=== PATIENT | male | born 1980 | race Caucasian/White ===

== ENCOUNTER 2016-09-25 16:29 | Emergency (ER) | payer MEDICARE, MEDICAID ==
[~2016-09-25] VITALS: Ht 177.8 cm; Wt 140.6 kg
[~2016-09-25 16:29] MED LIST: ALBU17AE3 IH; ALPR.25T PO; ALPR0.25 PO; ALPR0.254 PO; AMOX500C2; AMOX500C2 PO; AMOX500T2 PO; ASP81TEC; AZIT250T5 PO; BENZ-13 PO; BSP5T PO; CEFP200T2 PO; CEPH500C PO; CINN500C2 PO; CODE118S2 PO; CYCL10TA9 PO; DEXT10TA24 PO; DICY20TA57 PO; DOXY100C2 PO; FLUC200T PO; FLUO20CA25 PO; FLUT16SP22; FLX20C; GABA-488 PO; GABA300C PO; GLYB5TAB6 PO; HYDR-1231 PO; HYDR-3714; HYDR-3714 PO; HYDR-3720 PO; HYDR-3730 PO; HYDR-3812 PO; HYDR25CA PO; HYDR50TA76 PO; HYDROXYCUT; HYOS0.1216 PO; IBUP-1773 PO; IBUP-1780 PO; IBUP800T26 PO; INHA1INH INH; INSU100I14 SQ; INSU100I29 SQ; LEVE1U SQ; LISI-552 PO; LISI10TA2 PO; LORA0.5T PO; LSNP20T PO; METF-380 PO; METF500T8 PO; MONT10TA24 PO; MTF500T; MTF500T PO; MULT-517 PO; MULT1TAB63; NOVOLOG FLEX PEN SC; NYST15CR TOP; NYST30PO9 TOP; OMEG-109 PO; OMEP20CA6 PO; ONDA-42 SL; ONDA8TAB13 PO; OXYC-12 PO; PGLT30T PO; PIOG30TA PO; PIOG30TA25 GT; PIOG45TA16 PO; PNT40TEC PO; PREG75CA PO; PROZAC; QUET100T32 PO; RT-ALBUINH IH; SITA100T; STRATERRA; TESTOSTERONE CYPIONA; TRAM50TA2 PO; TRAZ150T42 PO
[2016-09-25 16:43] LABS: BILIRUBIN,URINE NEGATIVE (NEGATIVE); KETONES,URINE 1+ (NEGATIVE); LEUKOCYTE ESTERASE ,URINE NEGATIVE (NEGATIVE); NITRITE,URINE NEGATIVE (NEGATIVE); PH,URINE 5 (5-9); PROTEIN,URINE NEGATIVE (NEGATIVE); UROBILINOGEN,URINE NORMAL (NORMAL)
--- NOTE | 2016-09-25 17:00 | ED Abdominal Pain ---
General Chief Complaint: Abdominal/GI Problems Stated Complaint: ABD PAIN/LOW BACK PAIN/NAUSEA Source of Information: Patient, Other (significant other) Exam Limitations: No Limitations History of Present Illness Time Seen By Provider: 16:46 Initial Comments This 28-year-old male presents with a three-month history of diffuse burning abdominal pain from his throat to his pubis. The patient has had associated nausea without vomiting. Patient denies fever or chills. He has had no headache, stiff neck, productive cough or shortness of breath, or lateralizing or localizing neurologic complaints. Patient has a history of diabetes and hypertension. Allergies and Home Medications Allergies Coded Allergies: sertraline (Verified Allergy, Severe, RASH, SWELLING, 01/20/16) "FELT LOOPY" bupropion (Verified Allergy, Unknown, "CAUSED ME TO BANG MY HEAD ON THE WALL", 01/20/16) buspirone (Verified Allergy, Unknown, THROAT SWELLED, 01/20/16) cephalexin (Verified Allergy, Unknown, HIVES, 01/20/16) codeine (Verified Allergy, Unknown, 01/20/16) Home Medications Albuterol Sulfate 18 Gm Hfa.aer.ad #1 2 PUFF IH Q4H PRN PRN SHORTNESS OF BREATH Prescribed by: DIANA RUIZ on 08/15/16 0644 Alprazolam 0.25 Mg Tablet 0.25 MG PO BID PRN PRN ANXIETY (Reported) Benzonatate 100 Mg Capsule #30 100 MG PO Q6H PRN PRN COUGH Prescribed by: DIANA RUIZ on 08/15/16 0644 Cinnamon Bark 500 Mg Capsule 1,000 MG PO DAILY (Reported) TAKES 2 (500MG) CAPSULES Cyclobenzaprine HCl 10 Mg Tablet 10 MG PO DAILY PRN PRN MUSCLE SPASMS (Reported ) Dextroamphetamine/Amphetamine 10 Mg Tablet #30 1 TAB PO UD (Reported) Doxycycline Hyclate 100 Mg Capsule #20 1 TAB PO BID (Reported) Gabapentin 300 Mg Capsule 300 MG PO BID PRN PRN PAIN (Reported) Hydrocodone/Acetaminophen 1 Each Tablet 1 TAB PO Q6H PRN PRN PAIN (Reported) Ibuprofen 800 Mg Tablet 800 MG PO TID PRN PRN PAIN (Reported) Insulin Aspart 300 Units/3 Ml Solution 35 UNITS SQ AC PRN PRN BLOOD SUGAR ( Reported) Insulin Detemir 100 Unit/1 Ml Insuln.pen 80 UNITS SQ BID (Reported) Metformin HCl 500 Mg Tab.er.24h 1,000 MG PO BID (Reported) TAKES 2 (500MG) TABLETS Multivitamin 1 Each Tablet 1 TAB PO DAILY (Reported) Pregabalin 75 Mg Capsule #84 1 TAB PO UD (Reported) Promethazine HCl/Codeine 118 Ml Syrup #120 6 ML PO UD (Reported) Review of Systems Constitutional: No chills EENTM: No Blurred Vision, No Ear Drainage Respiratory: Denies Cough Cardiovascular: Denies Chest Pain Gastrointestinal: Abdominal Pain Diarrhea NauseaDenies Rectal Bleeding, Denies Vomiting Genitourinary: Denies Frequency, Denies Flank Pain Musculoskeletal: No back pain Skin: No rash Psychiatric/Neurological: Denies No Symptoms Reported Endocrine: Denies No Symptoms Reported Hematologic/Lymphatic: Denies No Symptoms Reported Past Ijjfuoe-Shvgyn-Rrmalz Hx Patient Social History Alcohol Use: Denies Use Recreational Drug Use: No Drug of Choice: CANNIBUS Smoking Status: Never a Smoker Recent Foreign Travel: No Contact w/Someone Who Travel: No Recent Hopitalizations: No Physical Abuse Screen: No Sexual Abuse: No Immunizations Up To Date Tetanus Booster (TDap): More than 5yrs PED Vaccines UTD: No Seasonal Allergies Seasonal Allergies: No Surgeries HX Surgeries: Yes (HYPOGONADISM INFANT, correction of cryptorchidism) Surgeries: Gallbladder, Testicular Respiratory Hx Respiratory Disorders: No Respiratory Disorders: Asthma, Chronic Bronchitis Cardiovascular Hx Cardiac Disorders: Yes Cardiac Disorders: Hypertension, Palpitations Neurological Hx Neurological Disorders: Yes Neurological Disorders: Neuropathy Reproductive System Hx Reproductive Disorders: Yes (HYPOGONADISM) Sexually Transmitted Disease: No Genitourinary Hx Genitourinary Disorders: No Gastrointestinal Hx Gastrointestinal Disorders: Yes Gastrointestinal Disorders: Gastroesophageal Reflux Musculoskeletal Hx Musculoskeletal Disorders: No Endocrine Hx Endocrine Disorders: Yes (MORBID OBESITY) Endocrine Disorders: Diabetes, Insulin dep HEENT HX ENT Disorders: No Cancer Hx Cancer: No Psychosocial Hx Psychiatric Problems: Yes Behavioral Health Disorders: ADD/ADHD, Anxiety, Depression Integumentary HX Skin/Integumentary Disorder: No Blood Transfusions Hx Blood Disorders: No Adverse Reaction to a Blood Tr: No Reviewed Nursing Assessment Reviewed/Agree w Nursing PMH: Yes Family Medical History Significant Family History: No Pertinent Family Hx Family Medial History: Arthritis 19 MOTHER Congenital heart disease Diabetes mellitus 19 FATHER 19 MOTHER FH: brain aneurysm 19 FATHER (cause of - 09/13/2015) Glaucoma 19 FATHER Hypertension 19 FATHER 19 MOTHER Psychosocial problem 19 MOTHER (depression) Physical Exam Vital Signs VS - Last 72 Hours, by Label 09/25/16 16:31 Temp 97.7 Pulse 86 Resp 20 B/P 145/95 Pulse Ox 99 O2 Delivery Room Air Capillary Refill : Less Than 3 Seconds General Appearance: WD/WN moderate distress HEENT: normal ENT inspection Respiratory: lungs clear normal breath sounds no respiratory distress Cardiovascular: regular rate, rhythm Gastrointestinal: normal bowel sounds tenderness (there was diffuse tenderness to palpation of the abdomen. No masses or rebound noted.) Extremities: normal range of motion non-tender normal inspection Back: normal inspection Neurologic/Psychiatric: no motor/sensory deficits alert normal mood/affect Skin: normal color warm/dry Progress/Results/Core Measures Results/Orders Lab Results Laboratory Tests Test 09/25/16 16:33 09/25/16 16:53 Range/Units Urine Bacteria NONE /HPF Urine Bilirubin NEGATIVE NEGATIVE Urine Casts NONE /LPF Urine Clarity CLEAR Urine Color YELLOW Urine Crystals NONE /LPF Urine Culture Indicated NO Urine Glucose (UA) 4+ H NEGATIVE Urine Ketones 1+ H NEGATIVE Urine Leukocyte Esterase NEGATIVE NEGATIVE Urine Mucus NEGATIVE /LPF Urine Nitrite NEGATIVE NEGATIVE Urine Protein NEGATIVE NEGATIVE Urine RBC NONE /HPF Urine RBC (Auto) NEGATIVE NEGATIVE Urine Specific [place] 1.015 L 1.016-1.022 Urine Squamous Epithelial Cells 2-5 /HPF Urine Urobilinogen NORMAL NORMAL MG/DL Urine WBC NONE /HPF Urine pH 5 5-9 Alanine Aminotransferase (ALT/SGPT) 47 0-55 U/L Albumin 4.1 3.2-4.5 G/DL Alkaline Phosphatase 76 40-136 U/L Anion Gap 13 5-14 MMOL/L Aspartate Amino Transf (AST/SGOT) 27 5-34 U/L BUN/Creatinine Ratio 14 Basophils # (Auto) 0.0 0.0-0.1 10^3/uL Basophils (%) (Auto) 0 0-10 % Blood Urea Nitrogen 14 7-18 MG/DL Calcium Level 9.4 8.5-10.1 MG/DL Carbon Dioxide Level 16 L 21-32 MMOL/L Chloride Level 103 98-107 MMOL/L Creatinine 1.02 0.60-1.30 MG/DL Eosinophils # (Auto) 0.1 0.0-0.3 10^3/uL Eosinophils (%) (Auto) 1 0-10 % Estimat Glomerular Filtration Rate > 60 Glucose Level 456 *H 70-105 MG/DL Hematocrit 42 40-54 % Hemoglobin 15.2 13.3-17.7 G/DL Lipase 31 8-78 U/L Lymphocytes # (Auto) 1.9 1.0-4.0 X 10^3 Lymphocytes (%) (Auto) 26 12-44 % Mean Corpuscular Hemoglobin 29 25-34 PG Mean Corpuscular Hemoglobin Concent 36 32-36 G/DL Mean Corpuscular Volume 81 80-99 FL Mean Platelet Volume 11.5 H 7.4-10.4 FL Monocytes # (Auto) 0.5 0.0-1.0 X 10^3 Monocytes (%) (Auto) 7 0-12 % Neutrophils # (Auto) 4.7 1.8-7.8 X 10^3 Neutrophils (%) (Auto) 65 42-75 % Platelet Count 163 130-400 10^3/uL Potassium Level 4.1 3.6-5.0 MMOL/L Red Blood Count 5.18 4.35-5.85 10^6/uL Red Cell Distribution Width 13.1 10.0-14.5 % Sodium Level 132 L 135-145 MMOL/L Total Bilirubin 0.4 0.1-1.0 MG/DL Total Protein 6.8 6.4-8.2 G/DL White Blood Count 7.2 4.3-11.0 10^3/uL My Orders Orders-DAVINA MADDOX MD Ua Culture If Indicated (09/25/16 16:37) Comprehensive Metabolic Panel (09/25/16 16:37) Cbc With Automated Diff (09/25/16 16:37) Lipase (09/25/16 16:45) Antacid Suspension (Mylanta Suspension (09/25/16 17:30) Lidocaine 2% Viscous 15 Ml (Xylocaine Vi (09/25/16 17:30) Lidocaine 2% Viscous 15 Ml (Xylocaine Vi (09/25/16 17:14) Antacid Suspension (Mylanta Suspension (09/25/16 17:14) Insulin (Regular) Human (Humulin R (Per (09/25/16 18:15) Ns Iv 1000 Ml (Sodium Chloride 0.9%) (09/25/16 18:15) Insulin (Regular) Human (Humulin R (Per (09/25/16 18:30) Medications Given in ED Current Medications Medications Dose Ordered Sig/Nikia Route Start Time Stop Time Status Last Admin Dose Admin Al Hydrox/Mg Hydrox/Simethicone 30 ml ONCE ONCE PO 09/25/16 17:30 09/25/16 17:31 DC 09/25/16 17:23 30 ML Lidocaine HCl 5 ml ONCE ONCE PO 09/25/16 17:30 09/25/16 17:31 DC 09/25/16 17:23 5 ML Vital Signs/I&O Vital Sign - Last 12Hours 09/25/16 16:31 Temp 97.7 Pulse 86 Resp 20 B/P 145/95 Pulse Ox 99 O2 Delivery Room Air Progress Note : Time: 18:19 Progress Note The patient's abdominal pain resolved with a GI cocktail. The patient relates he has a history of severe reflux disease. He is taking ranitidine. Patient's glucose was 450. Although the patient's vital signs are stable and he appears asymptomatic patient was given a liter of normal saline and 10 units of regular insulin IV. The patient has not been taking his 40 u of insulin with meals as prescribed. He is taking his 80u morning and night as prescribed. He has not checked his sugar for some time. My plan is to give the patient liter normal saline with 10 units of regular insulin and recheck his sugar. Patient's glucoses returning to a more normal state patient will be discharged with instructions to continue with his insulin as prescribed. I'll ask that he follow up closely with his caregiver twice on Wednesday. I'm going to place the patient Carafate to be used with his ranitidine as I think this may offer him more significant relief of his abdominal pain. Departure Impression Impression: Primary Impression: GERD (gastroesophageal reflux disease) Additional Impression: Hyperglycemia Disposition: 01 HOME, SELF-CARE Condition: Improved Departure-Patient Inst. Decision time for Depature: 18:22 Referrals: [facility] [place] [facility] – [place] (PCP/Family) Primary Care Physician Patient Instructions: Acid Reflux (GERD), Adolescent (DC), Hyperglycemia, Adult (DC) Add. Discharge Instructions: Take her insulin as prescribed. Continue with her ranitidine and add Carafate. Follow up with [facility] on Wednesday. Return if any problems. All discharge instructions reviewed with patient and/or family. Voiced understanding. DAVINA MADDOX MD Sep 25, 2016 17:00
[2016-09-25 17:03] LABS: BASOPHILS % (AUTO) 0 % (0-10); EOSINOPHILS # (AUTO) 0.1 10^3/uL (0.0-0.3); EOSINOPHILS % (AUTO) 1 % (0-10); LYMPHOCYTES # (AUTO) 1.9 X 10^3 (1.0-4.0); LYMPHOCYTES % (AUTO) 26 % (12-44); MEAN CORPUSCULAR HEMOGLOBIN 29 PG (25-34); MEAN CORPUSCULAR HGB CONC 36 G/DL (32-36); MEAN CORPUSCULAR VOLUME 81 FL (80-99); MEAN PLATELET VOLUME 11.5 FL (7.4-10.4); MONOCYTES # (AUTO) 0.5 X 10^3 (0.0-1.0); MONOCYTES % (AUTO) 7 % (0-12); NEUTROPHILS # (AUTO) 4.7 X 10^3 (1.8-7.8); NEUTROPHILS % (AUTO) 65 % (42-75); PLATELET COUNT 163 10^3/uL (130-400); RED BLOOD COUNT 5.18 10^6/uL (4.35-5.85); RED CELL DISTRIBUTION WIDTH 13.1 % (10.0-14.5); WHITE BLOOD COUNT 7.2 10^3/uL (4.3-11.0)
[2016-09-25] MEDS ORDERED: LIDOCAINE 2% VISCOUS 15 ML UDC ONE (17:14)
[2016-09-25] MEDS ORDERED: ANTACID SUSP 30 ML UDC (MYLANTA) ONE (17:14)
[2016-09-25 17:22] LABS: ALANINE AMINOTRANSFERASE 47 U/L (0-55); ALBUMIN 4.1 G/DL (3.2-4.5); ANION GAP 13 MMOL/L (5-14); ASPARTATE AMINO TRANSFERASE 27 U/L (5-34); BILIRUBIN,TOTAL 0.4 MG/DL (0.1-1.0); BLOOD UREA NITROGEN 14 MG/DL (7-18); BUN/CREATININE RATIO 14; CALCIUM 9.4 MG/DL (8.5-10.1); CARBON DIOXIDE 16 MMOL/L (21-32); CHLORIDE 103 MMOL/L (98-107); CREATININE SERUM 1.02 MG/DL (0.60-1.30); GFR ESTIMATED > 60; LIPASE 31 U/L (8-78); POTASSIUM 4.1 MMOL/L (3.6-5.0); SODIUM 132 MMOL/L (135-145); TOTAL PROTEIN 6.8 G/DL (6.4-8.2)
[2016-09-25] MEDS ORDERED: LIDOCAINE 2% VISCOUS 15 ML UDC PO ONE (17:30)
[2016-09-25] MEDS ORDERED: ANTACID SUSP 30 ML UDC (MYLANTA) PO ONE (17:30)
[2016-09-25 17:31] LABS: GLUCOSE 456 MG/DL (70-105)
[2016-09-25] MEDS ORDERED: NS IV 1000 ML 1,000 ML IV SCH (18:15)
[2016-09-25] MEDS ORDERED: inSUlin (REGULAR) HUMAN 1 UNIT/0.01 ML (CHARGE PER UNIT) SC ONE (18:15)
[2016-09-25] MEDS ORDERED: inSUlin (REGULAR) HUMAN 1 UNIT/0.01 ML (CHARGE PER UNIT) IV ONE (18:30)
[2016-09-25 19:13] VITALS: BP 152/98
== END 2016-09-25 19:13 | disposition home or self-care (01) ==
LOC: EDUNIT# 16:29 → ER 16:30
DX: K21.9 Gastro-esophageal reflux disease without esophagitis (principal); E11.65 Type 2 diabetes mellitus with hyperglycemia; I10 Essential (primary) hypertension; E66.01 Morbid (severe) obesity due to excess calories; Z79.4 Long term (current) use of insulin; Z79.899 Other long term (current) drug therapy; Z91.14 Patient's other noncompliance with medication regimen
CPT/HCPCS: 36415; 80053; 81000; 82962; 83690; 85025; 96361; 96374

== ENCOUNTER 2017-01-24 04:15 | Emergency (ER) | payer MEDICARE, MEDICAID ==
[~2017-01-24] VITALS: Ht 175.3 cm; Wt 143.3 kg
[2017-01-24 04:46] LABS: BASOPHILS % (AUTO) 0 % (0-10); EOSINOPHILS # (AUTO) 0.2 10^3/uL (0.0-0.3); EOSINOPHILS % (AUTO) 2 % (0-10); LYMPHOCYTES # (AUTO) 3.7 X 10^3 (1.0-4.0); LYMPHOCYTES % (AUTO) 38 % (12-44); MEAN CORPUSCULAR HEMOGLOBIN 30 PG (25-34); MEAN CORPUSCULAR HGB CONC 36 G/DL (32-36); MEAN CORPUSCULAR VOLUME 83 FL (80-99); MEAN PLATELET VOLUME 11.5 FL (7.4-10.4); MONOCYTES # (AUTO) 0.8 X 10^3 (0.0-1.0); MONOCYTES % (AUTO) 9 % (0-12); NEUTROPHILS % (AUTO) 52 % (42-75); PLATELET COUNT 231 10^3/uL (130-400); RED BLOOD COUNT 5.13 10^6/uL (4.35-5.85); RED CELL DISTRIBUTION WIDTH 13.3 % (10.0-14.5); WHITE BLOOD COUNT 9.8 10^3/uL (4.3-11.0)
[2017-01-24 05:01] LABS: PROTHROMBIN TIME PATIENT 12.8 SEC (12.2-14.7)
[2017-01-24 05:11] LABS: ALANINE AMINOTRANSFERASE 57 U/L (0-55); ALBUMIN 4.2 G/DL (3.2-4.5); ANION GAP 17 MMOL/L (5-14); ASPARTATE AMINO TRANSFERASE 29 U/L (5-34); BILIRUBIN,TOTAL 0.4 MG/DL (0.1-1.0); BLOOD UREA NITROGEN 15 MG/DL (7-18); BUN/CREATININE RATIO 15; CALCIUM 10.3 MG/DL (8.5-10.1); CARBON DIOXIDE 18 MMOL/L (21-32); CHLORIDE 104 MMOL/L (98-107); CREATININE SERUM 0.97 MG/DL (0.60-1.30); GFR ESTIMATED > 60; GLUCOSE 196 MG/DL (70-105); MAGNESIUM 2.2 MG/DL (1.8-2.4); POTASSIUM 3.7 MMOL/L (3.6-5.0); SODIUM 139 MMOL/L (135-145)
[2017-01-24] MEDS ORDERED: NS IV 1000 ML 1,000 ML IV ONE (05:38)
--- NOTE | 2017-01-24 05:44 | ED Chest Pain ---
General Chief Complaint: Chest Pain Stated Complaint: LIGHT HEADED CHEST PAIN SOA Nursing Triage Note: Pt. advises chest pain began approx. 1-1 1/2 hours prior to his arrival. He states that his chest pain began at rest, however advises that the pain is reproducable upon palpation and that he has had a slight cough for several days. Nursing Sepsis Screen: No Definite Risk Source: patient, old records Exam Limitations: no limitations History of Present Illness Time seen by provider: 04:18 Initial Comments Frankie presents to the emergency room with complaints of pain across his upper chest for the last 1.5-2 hours. He reports dyspnea and dizziness. He also has a headache and nausea. He feels like he is in "fog". He has had slight cough recently. Pain is worse with deep breathing and palpation. He reports being under increased stress the past 2 weeks. He has not been good about checking his blood sugars. Review of his chart notes a negative stress test in 2014. Allergies and Home Medications Allergies Coded Allergies: sertraline (Verified Allergy, Severe, RASH, SWELLING, 01/20/16) "FELT LOOPY" bupropion (Verified Allergy, Unknown, "CAUSED ME TO BANG MY HEAD ON THE WALL", 01/20/16) buspirone (Verified Allergy, Unknown, THROAT SWELLED, 01/20/16) cephalexin (Verified Allergy, Unknown, HIVES, 01/20/16) codeine (Verified Allergy, Unknown, 01/20/16) Home Medications Albuterol Sulfate 18 Gm Hfa.aer.ad, 2 PUFF IH Q4H PRN for SHORTNESS OF BREATH, # 1 Ref 0 Prescribed by: DIANA RUIZ on 08/15/16 0644 Alprazolam 0.25 Mg Tablet, 0.25 MG PO BID PRN for ANXIETY, (Reported) Benzonatate 100 Mg Capsule, 100 MG PO Q6H PRN for COUGH, #30 Ref 0 Prescribed by: DIANA RUIZ on 08/15/16 0644 Cinnamon Bark 500 Mg Capsule, 1,000 MG PO DAILY, (Reported) TAKES 2 (500MG) CAPSULES Cyclobenzaprine HCl 10 Mg Tablet, 10 MG PO DAILY PRN for MUSCLE SPASMS, ( Reported) Dextroamphetamine/Amphetamine 10 Mg Tablet, 1 TAB PO UD, #30 (Reported) Doxycycline Hyclate 100 Mg Capsule, 1 TAB PO BID, #20 (Reported) Gabapentin 300 Mg Capsule, 300 MG PO BID PRN for PAIN, (Reported) Hydrocodone/Acetaminophen 1 Each Tablet, 1 TAB PO Q6H PRN for PAIN, (Reported) Ibuprofen 800 Mg Tablet, 800 MG PO TID PRN for PAIN, (Reported) Insulin Aspart 300 Units/3 Ml Solution, 35 UNITS SQ AC PRN for BLOOD SUGAR, ( Reported) Insulin Detemir 100 Unit/1 Ml Insuln.pen, 80 UNITS SQ BID, (Reported) Metformin HCl 500 Mg Tab.er.24h, 1,000 MG PO BID, (Reported) TAKES 2 (500MG) TABLETS Multivitamin 1 Each Tablet, 1 TAB PO DAILY, (Reported) Pregabalin 75 Mg Capsule, 1 TAB PO UD, #84 (Reported) Promethazine HCl/Codeine 118 Ml Syrup, 6 ML PO UD, #120 (Reported) Review of Systems Constitutional: no symptoms reported EENTM: No Symptoms Reported Respiratory: See HPI Cardiovascular: See HPI Gastrointestinal: See HPI Genitourinary: No Symptoms Reported Musculoskeletal: see HPI Skin: no symptoms reported Psychiatric/Neurological: See HPI Endocrine: See HPI Past Cxutvir-Cmbdsg-Firwpb Hx Patient Social History Alcohol Use: Denies Use Recreational Drug Use: Yes Drug of Choice: CANNIBUS Smoking Status: Unknown if Ever Smoked Recent Foreign Travel: No Contact w/Someone Who Travel: No Recent Infectious Disease Expo: No Recent Hopitalizations: No Immunizations Up To Date Tetanus Booster (TDap): More than 5yrs PED Vaccines UTD: No Seasonal Allergies Seasonal Allergies: No Surgeries HX Surgeries: Yes (HYPOGONADISM INFANT, correction of cryptorchidism) Surgeries: Gallbladder, Testicular Respiratory Hx Respiratory Disorders: Yes Respiratory Disorders: Asthma, Chronic Bronchitis Cardiovascular Hx Cardiac Disorders: Yes Cardiac Disorders: Hypertension, Palpitations Neurological Hx Neurological Disorders: Yes Neurological Disorders: Neuropathy Reproductive System Hx Reproductive Disorders: Yes (HYPOGONADISM) Sexually Transmitted Disease: No Genitourinary Hx Genitourinary Disorders: No Gastrointestinal Hx Gastrointestinal Disorders: Yes Gastrointestinal Disorders: Gastroesophageal Reflux Musculoskeletal Hx Musculoskeletal Disorders: No Endocrine Hx Endocrine Disorders: Yes (MORBID OBESITY) Endocrine Disorders: Diabetes, Insulin dep HEENT HX ENT Disorders: No Cancer Hx Cancer: No Psychosocial Hx Psychiatric Problems: Yes Behavioral Health Disorders: ADD/ADHD, Anxiety, Depression Integumentary HX Skin/Integumentary Disorder: No Blood Transfusions Hx Blood Disorders: No Adverse Reaction to a Blood Tr: No Family Medical History Significant Family History: No Pertinent Family Hx Family Medial History: Arthritis 19 MOTHER Congenital heart disease Diabetes mellitus 19 FATHER 19 MOTHER FH: brain aneurysm 19 FATHER (cause of - 09/13/2015) Glaucoma 19 FATHER Hypertension 19 FATHER 19 MOTHER Psychosocial problem 19 MOTHER (depression) Physical Exam Vital Signs Vital Sign - Last 12Hours Capillary Refill : Less Than 3 Seconds General Appearance: WD/WN, Mild Distress, Obese HEENT: PERRL/EOMI, Normal ENT Inspection Neck: Normal Inspection Respiratory: Lungs Clear, Normal Breath Sounds, No Accessory Muscle Use, No Respiratory Distress, Other (Tenderness to palpation in the left upper chest) Cardiovascular: Regular Rate, Rhythm, No Edema, No Murmur, Normal Peripheral Pulses Gastrointestinal: Normal Bowel Sounds, Non Tender, Soft Extremity: Normal Inspection, Non Tender, No Calf Tenderness, No Pedal Edema Neurologic/Psychiatric: Alert, Oriented x3, No Motor/Sensory Deficits, stripper color II- XII Norm as Tested, Other (Mildly anxious) Skin: Normal Color, Warm/Dry Progress/Results/Core Measures Results/Orders Lab Results Laboratory Tests Test 01/24/17 04:30 01/24/17 05:34 Range/Units White Blood Count 9.8 4.3-11.0 10^3/uL Red Blood Count 5.13 4.35-5.85 10^6/uL Hemoglobin 15.2 13.3-17.7 G/DL Hematocrit 43 40-54 % Mean Corpuscular Volume 83 80-99 FL Mean Corpuscular Hemoglobin 30 25-34 PG Mean Corpuscular Hemoglobin Concent 36 32-36 G/DL Red Cell Distribution Width 13.3 10.0-14.5 % Platelet Count 231 130-400 10^3/uL Mean Platelet Volume 11.5 H 7.4-10.4 FL Neutrophils (%) (Auto) 52 42-75 % Lymphocytes (%) (Auto) 38 12-44 % Monocytes (%) (Auto) 9 0-12 % Eosinophils (%) (Auto) 2 0-10 % Basophils (%) (Auto) 0 0-10 % Neutrophils # (Auto) 5.0 1.8-7.8 X 10^3 Lymphocytes # (Auto) 3.7 1.0-4.0 X 10^3 Monocytes # (Auto) 0.8 0.0-1.0 X 10^3 Eosinophils # (Auto) 0.2 0.0-0.3 10^3/uL Basophils # (Auto) 0.0 0.0-0.1 10^3/uL Prothrombin Time 12.8 12.2-14.7 SEC INR Comment 1.0 0.8-1.4 Activated Partial Thromboplast Time 29 24-35 SEC D-Dimer 0.27 0.00-0.49 UG/ML Sodium Level 139 135-145 MMOL/L Potassium Level 3.7 3.6-5.0 MMOL/L Chloride Level 104 98-107 MMOL/L Carbon Dioxide Level 18 L 21-32 MMOL/L Anion Gap 17 H 5-14 MMOL/L Blood Urea Nitrogen 15 7-18 MG/DL Creatinine 0.97 0.60-1.30 MG/DL Estimat Glomerular Filtration Rate > 60 BUN/Creatinine Ratio 15 Glucose Level 196 H 70-105 MG/DL Calcium Level 10.3 H 8.5-10.1 MG/DL Magnesium Level 2.2 1.8-2.4 MG/DL Total Bilirubin 0.4 0.1-1.0 MG/DL Aspartate Amino Transf (AST/SGOT) 29 5-34 U/L Alanine Aminotransferase (ALT/SGPT) 57 H 0-55 U/L Alkaline Phosphatase 58 40-136 U/L Myoglobin 69.0 10.0-92.0 NG/ML Troponin I < 0.30 <0.30 NG/ML Total Protein 7.0 6.4-8.2 G/DL Albumin 4.2 3.2-4.5 G/DL Glucometer 151 H 70-110 MG/DL My Orders Orders - MAMIE DUBOIS MD Cbc With Automated Diff (01/24/17 04:23) Magnesium (01/24/17 04:23) Ekg Tracing (01/24/17 04:23) Cardiac Profile 1 (01/24/17 04:23) Comprehensive Metabolic Panel (01/24/17 04:23) Myoglobin Serum (01/24/17 04:23) Protime With Inr (01/24/17 04:23) Partial Thromboplastin Time (01/24/17 04:23) O2 (01/24/17 04:23) Monitor-Rhythm Ecg Trace Only (01/24/17 04:23) Saline Lock/Iv-Start (01/24/17 04:23) Chest Pa/Lat (2 View) (01/24/17 04:23) Ns Iv 1000 Ml (Sodium Chloride 0.9%) (01/24/17 05:38) Fibrin Degradation Products (01/24/17 05:38) Medications Given in ED Vital Signs/I&O Vital Sign - Last 12Hours 01/24/17 01/24/17 01/24/17 01/24/17 04:25 04:25 04:25 07:01 Temp 97.6 Pulse 102 103 Resp 14 14 B/P (MAP) 136/79 Pulse Ox 94 97 98 O2 Delivery Room Air Room Air Room Air Blood Pressure Mean: 98 Progress Note #1: Time: 05:40 Progress Note Patient's pain subsided and he fell asleep. When I reassessed him he was found to be diaphoretic. A repeat fingerstick blood sugar was 151. Patient has no notable pain at this time. However, I am concerned a find his heart rate in the 110s. Pain seemed atypical upon initial evaluation with increased pain with palpation and inspiration. A d-dimer was added to rule out possible pulmonary embolus. A liter of normal saline has been ordered as well. Progress Note #2: Time: 06:14 Progress Note D-dimer was normal. ECG Initial ECG Impression Date: January 24, 2017 Initial ECG Impression Time: 04:25 Initial ECG Rate: 109 Initial ECG Rhythm: S.Tach Comment Sinus tachycardia with no ST elevation or depression. No abnormal intervals or axis deviation. Diagnostic Imaging Diagonstic Imaging: Xray Plain Films/CT/US/NM/MRI: chest Comments Chest x-ray viewed by me. Report not yet available. No acute abnormalities appreciated. Departure Impression Impression: Primary Impression: Atypical chest pain Additional Impression: Sinus tachycardia Disposition: 01 HOME, SELF-CARE Condition: Improved Departure-Patient Inst. Decision time for Depature: 06:10 Referrals: [facility] (PCP/Family) Primary Care Physician Patient Instructions: Chest Pain That Is Not Caused by the Heart (DC) Add. Discharge Instructions: You may take Tylenol and/or ibuprofen for your pain. Return to emergency room if symptoms worsen. Stay well-hydrated. Follow up with your primary care provider soon as possible. All discharge instructions reviewed with patient and/or family. Voiced understanding. MAMIE DUBOIS MD January 24, 2017 05:44
[2017-01-24 07:01] VITALS: BP 128/79
--- NOTE | 2017-01-24 07:23 | Diagnostic Imaging Report ---
INDICATION: Chest pain EXAMINATION: PA and lateral views of the chest. FINDINGS: The heart size and vascularity are normal. Lungs are clear. There is no effusion. There is no acute bony abnormality. IMPRESSION: No acute abnormality is seen. There is no change from 08/22/16. Dictated by: Dictated on workstation # [id number]
== END 2017-01-24 07:32 | disposition home or self-care (01) ==
LOC: EDUNIT# 04:15 → ER 04:18
DX: R07.89 Other chest pain (principal); R00.0 Tachycardia, unspecified; R42 Dizziness and giddiness
CPT/HCPCS: 36415; 71020; 80053; 82962; 83735; 83874; 84484; 85025; 85379; 85610; 85730; 93005; 93041; 96360

== ENCOUNTER 2017-05-07 21:15 | Emergency (ER) | payer MEDICARE, MEDICAID ==
[~2017-05-07] VITALS: Ht 177.8 cm; Wt 140.6 kg
[~2017-05-07 21:15] MED LIST changes: +AZIT250T12 PO; -AZIT250T5 PO
[2017-05-07] MEDS ORDERED: CYCLOBENZAPRINE 10 MG (FLEXERIL) TAB PO STA (21:46)
[2017-05-07] MEDS ORDERED: IBUPROFEN 800 MG (MOTRIN) TAB PO STA (21:46)
--- NOTE | 2017-05-07 21:53 | ED Lower Extremity ---
General Chief Complaint: Lower Extremity Stated Complaint: LEFT LEG PAIN Nursing Triage Note: Ambulatory to ED 2 with reports of non-traumatic left thigh pain x 2 days. Patient reports that it "started as numbness with twinges of pain, then it became pain, and now its so terrible of pain that it makes a grown man cry." No tears noted upon ambulating; however, very notable grimacing present. Nursing Sepsis Screen: No Definite Risk Source: patient Exam Limitations: no limitations History of Present Illness Time seen by provider: 21:48 Initial Comments Upon this examiner entering the room patient is lying on the bed with his headphones on and eyes closed. No grimacing or tears noted. When patient opens his eyes he immediately begins grimacing and moaning. 37-year-old male patient presents to the emergency department complaints of nontraumatic left thigh pain for 2 days. Patient reports burning/numbness/ "searing pain." Patient states he started a job a couple weeks ago and thought maybe he pulled something. States he doesn't want to quit the job because he gets paid [employer] and it doesn't affect his disability. Denies known injury. States "one time when I was younger I had that spot go numb. Location Injury Occurred: denies known injury Onset: other (2 days) Pain/Injury Location: left thigh Method of Injury: unknown Modifying Factors: Worse With Movement, Worse With Other (worse with palpation) Allergies and Home Medications Allergies Coded Allergies: sertraline (Verified Allergy, Severe, RASH, SWELLING, 01/20/16) "FELT LOOPY" bupropion (Verified Allergy, Unknown, "CAUSED ME TO BANG MY HEAD ON THE WALL", 01/20/16) buspirone (Verified Allergy, Unknown, THROAT SWELLED, 01/20/16) cephalexin (Verified Allergy, Unknown, HIVES, 01/20/16) codeine (Verified Allergy, Unknown, 01/20/16) Home Medications Acyclovir 800 Mg Tablet, 800 MG PO 5XD, #50 Ref 0 Prescribed by: ANA BECKER on 05/07/17 2333 Albuterol Sulfate 18 Gm Hfa.aer.ad, 2 PUFF IH Q4H PRN for SHORTNESS OF BREATH, # 1 Ref 0 Prescribed by: DIANA RUIZ on 08/15/16 0644 Alprazolam 0.25 Mg Tablet, 0.25 MG PO BID PRN for ANXIETY, (Reported) Benzonatate 100 Mg Capsule, 100 MG PO Q6H PRN for COUGH, #30 Ref 0 Prescribed by: DIANA RUIZ on 08/15/16 0644 Cinnamon Bark 500 Mg Capsule, 1,000 MG PO DAILY, (Reported) TAKES 2 (500MG) CAPSULES Cyclobenzaprine HCl 10 Mg Tablet, 10 MG PO DAILY PRN for MUSCLE SPASMS, ( Reported) Dextroamphetamine/Amphetamine 10 Mg Tablet, 1 TAB PO UD, #30 (Reported) Doxycycline Hyclate 100 Mg Capsule, 1 TAB PO BID, #20 (Reported) Gabapentin 300 Mg Capsule, 300 MG PO BID PRN for PAIN, (Reported) Hydrocodone/Acetaminophen 1 Each Tablet, 1 TAB PO Q6H PRN for PAIN, (Reported) Ibuprofen 800 Mg Tablet, 800 MG PO TID PRN for PAIN, (Reported) Insulin Aspart 300 Units/3 Ml Solution, 35 UNITS SQ AC PRN for BLOOD SUGAR, ( Reported) Insulin Detemir 100 Unit/1 Ml Insuln.pen, 80 UNITS SQ BID, (Reported) Metformin HCl 500 Mg Tab.er.24h, 1,000 MG PO BID, (Reported) TAKES 2 (500MG) TABLETS Multivitamin 1 Each Tablet, 1 TAB PO DAILY, (Reported) Pregabalin 75 Mg Capsule, 1 TAB PO UD, #84 (Reported) Promethazine HCl/Codeine 118 Ml Syrup, 6 ML PO UD, #120 (Reported) Constitutional: No chills, No fever, No malaise Respiratory: No cough, No dyspnea on exertion, No short of breath Cardiovascular: No chest pain, No palpitations Gastrointestinal: no symptoms reported Genitourinary: no symptoms reported Musculoskeletal: see HPI, No joint pain, No joint swelling, muscle pain (left thigh), muscle stiffness, No muscle cramps, No muscle twitching, No muscle weakness Skin: No change in color, No lesions, No lumps, No rash Psychiatric/Neurological: Denies Numbness, Denies Paresthesia, Denies Seizure, Denies Tingling, Denies Weakness All Other Systems Reviewed Negative Unless Noted: Yes (Negative excepted noted.) Past Moyobds-Rgpkgv-Eakzep Hx Patient Social History Alcohol Use: Denies Use Recreational Drug Use: No Drug of Choice: CANNIBUS Smoking Status: Never a Smoker 2nd Hand Smoke Exposure: No Recent Foreign Travel: No Contact w/Someone Who Travel: No Recent Infectious Disease Expo: No Recent Hopitalizations: No Immunizations Up To Date Tetanus Booster (TDap): More than 5yrs PED Vaccines UTD: No Seasonal Allergies Seasonal Allergies: No Surgeries HX Surgeries: Yes (HYPOGONADISM , correction of cryptorchidism) Surgeries: Gallbladder, Testicular Respiratory Hx Respiratory Disorders: Yes Respiratory Disorders: Asthma, Chronic Bronchitis Cardiovascular Hx Cardiac Disorders: Yes Cardiac Disorders: Hypertension, Palpitations Neurological Hx Neurological Disorders: Yes Neurological Disorders: Neuropathy Reproductive System Hx Reproductive Disorders: Yes (HYPOGONADISM) Sexually Transmitted Disease: No Genitourinary Hx Genitourinary Disorders: No Gastrointestinal Hx Gastrointestinal Disorders: Yes Gastrointestinal Disorders: Gastroesophageal Reflux Musculoskeletal Hx Musculoskeletal Disorders: No Endocrine Hx Endocrine Disorders: Yes (MORBID OBESITY) Endocrine Disorders: Diabetes, Insulin dep HEENT HX ENT Disorders: No Cancer Hx Cancer: No Psychosocial Hx Psychiatric Problems: Yes Behavioral Health Disorders: ADD/ADHD, Anxiety, Depression Integumentary HX Skin/Integumentary Disorder: No Blood Transfusions Hx Blood Disorders: No Adverse Reaction to a Blood Tr: No Reviewed Nursing Assessment Reviewed/Agree w Nursing PMH: Yes Family Medical History Significant Family History: No Pertinent Family Hx Family Medial History: Arthritis 19 MOTHER Congenital heart disease Diabetes mellitus 19 FATHER 19 MOTHER FH: brain aneurysm 19 FATHER (cause of - 09/13/2015) Glaucoma 19 FATHER Hypertension 19 FATHER 19 MOTHER Psychosocial problem 19 MOTHER (depression) Physical Exam Vital Signs Vital Sign - Last 12Hours 05/07/ 21:25 Temp 98.2 Pulse 101 Resp 18 B/P (MAP) 155/95 Pulse Ox 98 O2 Delivery Room Air Capillary Refill : Less Than 3 Seconds General Appearance: WD/WN, no apparent distress, other (patient is lying in bed with his eyes closed talking on the phone. when patient opens his eyes and sees this examiner, he begins grimacing and moaning.) Cardiovascular: normal peripheral pulses, regular rate, rhythm, no murmur Respiratory: lungs clear, normal breath sounds, no respiratory distress, no accessory muscle use Gastrointestinal: normal bowel sounds, non tender, soft Back: normal inspection Hips: bilateral hip non-tender, bilateral hip normal inspection, bilateral hip normal range of motion, bilateral hip no evidence of injury Legs: right leg non-tender, bilateral leg normal inspection, bilateral leg normal range of motion, bilateral leg no evidence of injury, left leg soft tissue tenderness (patient is noted to be rubbing and squeezing the left thigh without grimacing or any pain response; however, patient is extremely tender to palpation of the left thigh with light palpation by this examiner. exaggerated pain response noted.) Knees: bilateral knee non-tender, bilateral knee normal inspection, bilateral knee normal range of motion, bilateral knee no evidence of injury Ankles: bilateral ankle non-tender, bilateral ankle normal inspection, bilateral ankle normal range of motion, bilateral ankle no evidence of injury Feet: bilateral foot non-tender, bilateral foot normal range of motion, bilateral foot no evidence of injury, bilateral foot swelling (trace pedal edema bilaterally) Neurologic/Tendon: normal sensation, normal motor functions, normal tendon functions, responds to pain, no evidence tendon injury Neurologic/Psychiatric: no motor/sensory deficits, alert, normal mood/affect, oriented x 3 Skin: normal color, warm/dry, No ecchymosis (no evidence of trauma to the LLE noted. ) Progress/Results/Core Measures Results/Orders My Orders Orders - ANA BECKER Us Venous Lower Ext Lt (05/07/17 21:46) Cyclobenzaprine Tablet (Flexeril Tablet) (05/07/17 21:46) Ibuprofen Tablet (Motrin Tablet) (05/07/17 21:46) Vital Signs/I&O Vital Sign - Last 12Hours 05/07/17 05/07/17 05/07/17 21:25 21:55 23:35 Temp 98.2 98.2 98.2 Pulse 101 101 Resp 18 18 B/P (MAP) 155/95 Pulse Ox 98 98 O2 Delivery Room Air Blood Pressure Mean: 115 Diagnostic Imaging Diagonstic Imaging: Ultrasound Plain Films/CT/US/NM/MRI: leg Comments no evidence of DVT Reviewed: Other (Stat rad report reviewed by me.) Departure Communication Progress Notes upon entering the room patient is noted to have his shirt off and rolled up under his head while lying comfortably on the bed. diagnostic findings were discussed with the patient. patient sits up and moves all 4 extremities without difficulty. patient now asks if this examiner thinks his legs are swollen, because "my legs are normally very muscular and really nice. now they just look fat." patient is noted to have trace edema of the BLE. patient states it is worse with standing for several hours while at work and improves with elevating his feet. patient instructed to elevate the LE's and to wear compression socks while at work. patient to f/u with his PCP for recheck. Impression Impression: Primary Impression: Left thigh pain Additional Impression: Paresthesia Disposition: HOME, SELF-CARE Condition: Improved Departure-Patient Inst. Decision time for Depature: 23:30 Referrals: [facility] (PCP/Family) Primary Care Physician Patient Instructions: Lee (HEATHER) Add. Discharge Instructions: All discharge instructions reviewed with patient and/or family. Voiced understanding. Medications as directed. Continue usual home medications. Elevate the left leg on pillows. Follow-up with your family practitioner for recheck early this week. Return to the emergency department for worsened symptoms or any other concerns. Scripts Acyclovir (Acyclovir) 800 Mg Tablet 800 MG PO 5XD, #50 TAB 0 Refills Prov: ANA BECKER 05/07/17 ANA BECKER May 07, 2017 9:53 pm
[2017-05-07] MEDS ORDERED: ACYC800T PO (23:33)
[2017-05-07 23:35] VITALS: BP 155/95
--- NOTE | 2017-05-08 06:13 | Diagnostic Imaging Report ---
PROCEDURE: US left lower extremity venous. TECHNIQUE: Multiple real-time grayscale images were obtained over the left lower extremity in various projections. Additional duplex Doppler and color Doppler images were also obtained. INDICATION: Left leg pain. FINDINGS: The left common femoral, superficial femoral and popliteal veins demonstrate normal response to compression, augmentation, and Valsalva. There are no abnormal left lower extremity fluid collections or masses. IMPRESSION: No evidence of deep venous thrombosis in the left lower extremity. Dictated by: Dictated on workstation # [id number]
== END 2017-05-07 23:35 | disposition home or self-care (01) ==
LOC: EDUNIT# 21:15 → ER 21:17
DX: M79.652 Pain in left thigh (principal); R20.2 Paresthesia of skin; J45.909 Unspecified asthma, uncomplicated; I10 Essential (primary) hypertension; E11.40 Type 2 diabetes mellitus with diabetic neuropathy, unspecified; K21.9 Gastro-esophageal reflux disease without esophagitis; E66.01 Morbid (severe) obesity due to excess calories; F90.9 Attention-deficit hyperactivity disorder, unspecified type; F41.9 Anxiety disorder, unspecified; F32.9 Major depressive disorder, single episode, unspecified; Z82.49 Family history of ischemic heart disease and other diseases of the circulatory system; Z87.448 Personal history of other diseases of urinary system; Z79.84 Long term (current) use of oral hypoglycemic drugs; Z79.4 Long term (current) use of insulin
CPT/HCPCS: 99283

== ENCOUNTER 2017-05-16 11:55 | Inpatient (IN) | payer MEDICARE, MEDICAID ==
[~2017-05-16] VITALS: Ht 177.8 cm; Wt 147.9 kg
[~2017-05-16 11:55] MED LIST changes: +ACYC800T PO; -AZIT250T12 PO; +AZIT250T5 PO
[2017-05-16] MEDS ORDERED: IBUPROFEN 800 MG (MOTRIN) TAB PO ONE (12:39)
[2017-05-16 12:54] LABS: MEAN PLATELET VOLUME 11.8 FL (7.4-10.4); RED BLOOD COUNT 4.95 10^6/uL (4.35-5.85); RED CELL DISTRIBUTION WIDTH 12.9 % (10.0-14.5); WHITE BLOOD COUNT 11.9 10^3/uL (4.3-11.0)
[2017-05-16 12:59] LABS: PROTHROMBIN TIME PATIENT 13.1 SEC (12.2-14.7)
[2017-05-16] MEDS ORDERED: NS IV 1000 ML 4,000 ML IV PRN (13:00)
[2017-05-16] MEDS ORDERED: LEVOFLOXACIN IV 750 MG/150 ML (LEVAQUIN) BAG IV ONE (13:00)
[2017-05-16 13:05] LABS: ALANINE AMINOTRANSFERASE 34 U/L (0-55); ALBUMIN 3.9 GM/DL (3.2-4.5); ANION GAP 12 MMOL/L (5-14); ASPARTATE AMINO TRANSFERASE 22 U/L (5-34); BILIRUBIN,TOTAL 0.8 MG/DL (0.1-1.0); BLOOD UREA NITROGEN 16 MG/DL (7-18); BUN/CREATININE RATIO 20; CALCIUM 9.2 MG/DL (8.5-10.1); CARBON DIOXIDE 20 MMOL/L (21-32); CHLORIDE 103 MMOL/L (98-107); CREATININE SERUM 0.82 MG/DL (0.60-1.30); GFR ESTIMATED > 60; GLUCOSE 309 MG/DL (70-105); POTASSIUM 4.5 MMOL/L (3.6-5.0); SODIUM 135 MMOL/L (135-145); TOTAL PROTEIN 6.6 GM/DL (6.4-8.2)
--- NOTE | 2017-05-16 13:20 | Diagnostic Imaging Report ---
EXAM: CHEST 1 VIEW, AP/PA ONLY INDICATION: Fever. COMPARISON: Chest radiograph 01/24/2017. FINDINGS: Normal heart size and pulmonary vascularity. No focal pulmonary opacity, pleural effusion or pneumothorax. No acute osseous findings. No significant change. IMPRESSION: No acute cardiopulmonary findings. Dictated by: Dictated on workstation # [id number]
--- NOTE | 2017-05-16 14:07 | ED General ---
General Chief Complaint: Skin/Wound Problems Stated Complaint: L LEG PAIN/POSS INFECTION Nursing Triage Note: PT HAS WOUND L INNER UPPER THIGH, DRAINING, REDDEND AND PAINFUL. PT HAS TEMP 102.1 AT THIS X Nursing Sepsis Screen: Possible Sepsis Risk Source of Information: Patient Exam Limitations: No Limitations Allergies and Home Medications Allergies Coded Allergies: sertraline (Verified Allergy, Severe, RASH, SWELLING, 01/20/16) "FELT LOOPY" bupropion (Verified Allergy, Unknown, "CAUSED ME TO BANG MY HEAD ON THE WALL", 01/20/16) buspirone (Verified Allergy, Unknown, THROAT SWELLED, 01/20/16) cephalexin (Verified Allergy, Unknown, HIVES, 01/20/16) codeine (Verified Allergy, Unknown, 01/20/16) Home Medications Acyclovir 800 Mg Tablet, 800 MG PO 5XD, #50 Ref 0 Prescribed by: ANA BECKER on 05/07/17 2333 Albuterol Sulfate 18 Gm Hfa.aer.ad, 2 PUFF IH Q4H PRN for SHORTNESS OF BREATH, # 1 Ref 0 Prescribed by: DIANA RUIZ on 08/15/16 0644 Alprazolam 0.25 Mg Tablet, 0.25 MG PO BID PRN for ANXIETY, (Reported) Benzonatate 100 Mg Capsule, 100 MG PO Q6H PRN for COUGH, #30 Ref 0 Prescribed by: DIANA RUIZ on 08/15/16 0644 Cinnamon Bark 500 Mg Capsule, 1,000 MG PO DAILY, (Reported) TAKES 2 (500MG) CAPSULES Cyclobenzaprine HCl 10 Mg Tablet, 10 MG PO DAILY PRN for MUSCLE SPASMS, ( Reported) Dextroamphetamine/Amphetamine 10 Mg Tablet, 1 TAB PO UD, #30 (Reported) Doxycycline Hyclate 100 Mg Capsule, 1 TAB PO BID, #20 (Reported) Gabapentin 300 Mg Capsule, 300 MG PO BID PRN for PAIN, (Reported) Hydrocodone/Acetaminophen 1 Each Tablet, 1 TAB PO Q6H PRN for PAIN, (Reported) Ibuprofen 800 Mg Tablet, 800 MG PO TID PRN for PAIN, (Reported) Insulin Aspart 300 Units/3 Ml Solution, 35 UNITS SQ AC PRN for BLOOD SUGAR, ( Reported) Insulin Detemir 100 Unit/1 Ml Insuln.pen, 80 UNITS SQ BID, (Reported) Metformin HCl 500 Mg Tab.er.24h, 1,000 MG PO BID, (Reported) TAKES 2 (500MG) TABLETS Multivitamin 1 Each Tablet, 1 TAB PO DAILY, (Reported) Pregabalin 75 Mg Capsule, 1 TAB PO UD, #84 (Reported) Promethazine HCl/Codeine 118 Ml Syrup, 6 ML PO UD, #120 (Reported) Past Bxkelbm-Pkmcjr-Wimdrp Hx Patient Social History Alcohol Use: Denies Use Recreational Drug Use: Yes Drug of Choice: CANNIBUS Smoking Status: Never a Smoker 2nd Hand Smoke Exposure: No Recent Foreign Travel: No Contact w/Someone Who Travel: No Recent Infectious Disease Expo: No Recent Hopitalizations: No Physical Abuse: No Sexual Abuse: No Immunizations Up To Date Tetanus Booster (TDap): More than 5yrs PED Vaccines UTD: No Seasonal Allergies Seasonal Allergies: No Surgeries History of Surgeries: Yes (HYPOGONADISM , correction of cryptorchidism ) Surgeries: Gallbladder, Testicular Respiratory History of Respiratory Disorde: Yes Respiratory Disorders: Asthma, Chronic Bronchitis Currently Using CPAP: No Currently Using BIPAP: No Cardiovascular History of Cardiac Disorders: Yes Cardiac Disorders: Hypertension, Palpitations Neurological History of Neurological Disord: Yes Neurological Disorders: Neuropathy Reproductive System Hx Reproductive Disorders: Yes (HYPOGONADISM) Sexually Transmitted Disease: No Gastrointestinal History of Gastrointestinal Di: Yes Gastrointestinal Disorders: Gastroesophageal Reflux Musculoskeletal History of Musculoskeletal Dis: No Endocrine History of Endocrine Disorders: Yes (MORBID OBESITY) Endocrine Disorders: Diabetes, Insulin dep Cancer History of Cancer: No Psychosocial History of Psychiatric Problem: Yes Behavioral Health Disorders: ADD/ADHD, Anxiety, Depression Suicide Risk Score: 0 Integumentary History of Skin or Integumenta: No Blood Transfusions History of Blood Disorders: No Adverse Reaction to a Blood Tr: No Family Medical History Significant Family History: No Pertinent Family Hx Family Medial History: Arthritis 19 MOTHER Congenital heart disease Diabetes mellitus 19 FATHER 19 MOTHER FH: brain aneurysm 19 FATHER (cause of - 09/13/2015) Glaucoma 19 FATHER Hypertension 19 FATHER 19 MOTHER Psychosocial problem 19 MOTHER (depression) Physical Exam Vital Signs Vital Sign - Last 12Hours 05/16/17 12:25 Temp 102.1 Pulse 113 Resp 18 B/P (MAP) 121/84 Pulse Ox 99 Capillary Refill : Less Than 3 Seconds Focused Exam Evaluation Lactate Level Laboratory Tests 05/16/17 12:30: Lactic Acid Level 1.28 Lactic Acid Level Laboratory Tests Test 05/16/17 12:30 Lactic Acid Level 1.28 MMOL/L (0.50-2.00) Progress/Results/Core Measures Results/Orders Lab Results Laboratory Tests Test 05/16/17 12:30 05/16/17 14:45 Range/Units White Blood Count 11.9 H 4.3-11.0 10^3/uL Red Blood Count 4.95 4.35-5.85 10^6/uL Hemoglobin 14.6 13.3-17.7 G/DL Hematocrit 42 40-54 % Mean Corpuscular Volume 84 80-99 FL Mean Corpuscular Hemoglobin 30 25-34 PG Mean Corpuscular Hemoglobin Concent 35 32-36 G/DL Red Cell Distribution Width 12.9 10.0-14.5 % Platelet Count 180 130-400 10^3/uL Mean Platelet Volume 11.8 H 7.4-10.4 FL Prothrombin Time 13.1 12.2-14.7 SEC INR Comment 1.0 0.8-1.4 Activated Partial Thromboplast Time 30 24-35 SEC Sodium Level 135 135-145 MMOL/L Potassium Level 4.5 3.6-5.0 MMOL/L Chloride Level 103 98-107 MMOL/L Carbon Dioxide Level 20 L 21-32 MMOL/L Anion Gap 12 5-14 MMOL/L Blood Urea Nitrogen 16 7-18 MG/DL Creatinine 0.82 0.60-1.30 MG/DL Estimat Glomerular Filtration Rate > 60 BUN/Creatinine Ratio 20 Glucose Level 309 H 70-105 MG/DL Lactic Acid Level 1.28 0.50-2.00 MMOL/L Calcium Level 9.2 8.5-10.1 MG/DL Total Bilirubin 0.8 0.1-1.0 MG/DL Aspartate Amino Transf (AST/SGOT) 22 5-34 U/L Alanine Aminotransferase (ALT/SGPT) 34 0-55 U/L Alkaline Phosphatase 79 40-136 U/L Total Protein 6.6 6.4-8.2 GM/DL Albumin 3.9 3.2-4.5 GM/DL Urine Color YELLOW Urine Clarity CLEAR Urine pH 5 5-9 Urine Specific [place] 1.015 L 1.016-1.022 Urine Protein NEGATIVE NEGATIVE Urine Glucose (UA) 4+ H NEGATIVE Urine Ketones 4+ H NEGATIVE Urine Nitrite NEGATIVE NEGATIVE Urine Bilirubin NEGATIVE NEGATIVE Urine Urobilinogen NORMAL NORMAL MG/DL Urine Leukocyte Esterase NEGATIVE NEGATIVE Urine RBC (Auto) NEGATIVE NEGATIVE Urine RBC NONE /HPF Urine WBC NONE /HPF Urine Squamous Epithelial Cells 2-5 /HPF Urine Crystals NONE /LPF Urine Bacteria NEGATIVE /HPF Urine Casts NONE /LPF Urine Mucus NEGATIVE /LPF Urine Culture Indicated NO My Orders Orders - ANA BECKER PA Ua Culture If Indicated (05/16/17 12:47) Protime With Inr (05/16/17 12:47) Partial Thromboplastin Time (05/16/17 12:47) Chest 1 View, Ap/Pa Only (05/16/17 12:47) Saline Lock/Iv-Start (05/16/17 12:47) Ns Iv 1000 Ml (Sodium Chloride 0.9%) (05/16/17 13:00) Levofloxacin 750 Mg/150 Ml Iv (Levaquin (05/16/17 13:00) Vital Signs Adult Sepsis Patie Q1HR (05/16/17 12:47) Medications Given in ED Current Medications Medications Dose Ordered Sig/Nikia Route Start Time Stop Time Status Last Admin Dose Admin Ibuprofen 800 mg STK-MED ONCE PO 05/16/17 12:39 05/16/17 12:47 DC 05/16/17 12:39 800 MG Levofloxacin/ Dextrose 750 mg ONCE ONCE IV 05/16/17 13:00 05/16/17 13:01 DC 05/16/17 12:39 750 MG Sodium Chloride 4,000 ml @ 2,000 mls/hr PRN PRN IV 05/16/17 13:00 05/16/17 13:20 2,000 MLS/HR Vital Signs/I&O Vital Sign - Last 12Hours 05/16/17 05/16/17 12:25 12:39 Temp 102.1 102.1 Pulse 113 Resp 18 B/P (MAP) 121/84 Pulse Ox 99 Blood Pressure Mean: 96 Diagnostic Imaging Diagonstic Imaging: Xray Plain Films/CT/US/NM/MRI: chest Comments FINDINGS: Normal heart size and pulmonary vascularity. No focal pulmonary opacity, pleural effusion or pneumothorax. No acute osseous findings. No significant change. IMPRESSION: No acute cardiopulmonary findings. Dictated on workstation # [id number] Reviewed: Reviewed by Me (readiology report reviewed by me) Departure Impression Impression: Primary Impression: Cellulitis Disposition: 01 HOME, SELF-CARE Condition: Improved Departure-Patient Inst. Decision time for Depature: 15:10 Referrals: [facility] (PCP/Family) Primary Care Physician Patient Instructions: Cellulitis (Skin Infection), Adult (DC) Add. Discharge Instructions: All discharge instructions reviewed with patient and/or family. Voiced understanding. Medications as instructed. Continue usual home medications. Elevate the left lower extremity on pillows above the level of the heart. Ice packs or heating pads as needed for pain. Shower with antibacterial soap. Follow-up with your primary care physician at [facility] in the next 1-2 days for recheck and possible need for incision and drainage if infection forms an abscess. Return to the emergency department for fever, ANA BECKER May 16, 2017 14:07
[2017-05-16 14:54] LABS: BILIRUBIN,URINE NEGATIVE (NEGATIVE); KETONES,URINE 4+ (NEGATIVE); LEUKOCYTE ESTERASE ,URINE NEGATIVE (NEGATIVE); NITRITE,URINE NEGATIVE (NEGATIVE); PH,URINE 5 (5-9); PROTEIN,URINE NEGATIVE (NEGATIVE); UROBILINOGEN,URINE NORMAL (NORMAL)
--- NOTE | 2017-05-16 16:36 | History & Physicial (CHS) ---
HPI History of Present Illness: 37-year-old male presents to [facility] emergency department with left inner upper thigh tenderness and erythema. He reports he felt like he was hit by a truck this morning when he felt in this area. He knew that the area was not improving despite oral antibiotics he has received her [facility]. 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 He denies any fever but he hasn't actually taken it with a thermometer. He has a known diabetic and is also with hypertension. Source: patient Exam Limitations: no limitations Date seen by provider: May 16, 2017 Time Seen by Provider: 16:00 Attending Physician Juan Martins MD PCP [place],[facility] Date of Admission May 16, 2017 at 15:58 Home Medications Home Medications Reviewed patient Home Medication Reconciliation Form Allergies Coded Allergies: sertraline (Verified Allergy, Severe, RASH, SWELLING, 01/20/16) "FELT LOOPY" bupropion (Verified Allergy, Unknown, "CAUSED ME TO BANG MY HEAD ON THE WALL", 01/20/16) buspirone (Verified Allergy, Unknown, THROAT SWELLED, 01/20/16) cephalexin (Verified Allergy, Unknown, HIVES, 01/20/16) codeine (Verified Allergy, Unknown, 01/20/16) XMJ-Iryenc-Gliooc Hx Patient Social History Alcohol Use: Denies Use Recreational Drug Use: Yes Drug of Choice: CANNIBUS Smoking Status: Never a Smoker 2nd Hand Smoke Exposure: No Recent Foreign Travel: No Contact w/other who traveled: No Recent Hopitalizations: No Recent Infectious Disease Expo: No Immunizations Up To Date Tetanus Booster (TDap): More than 5yrs Past Medical History PMH: DM - diagnosed as Type 2 in his 20's - admitted for DKA 2011, 09/19/15 Hypertension Anxiety Hypogonadism (not currently treated) Obesity ADHA Chronic musculoskeletal pain PSH: Testicular surgery as for undescended testicles bilaterally Lap cholecystectomy 09/2014 Family Medical History Significant Family History: No Pertinent Family Hx Family History: Arthritis 19 MOTHER Congenital heart disease Diabetes mellitus 19 FATHER 19 MOTHER FH: brain aneurysm 19 FATHER (cause of - 09/13/2015) Glaucoma 19 FATHER Hypertension 19 FATHER 19 MOTHER Psychosocial problem 19 MOTHER (depression) Review of Systems (CHC) Constitutional: see HPI Reviewed Test Results Reviewed Test Results Lab Laboratory Tests Test 05/16/17 12:30 05/16/17 14:45 Range/Units White Blood Count 11.9 H 4.3-11.0 10^3/uL Red Blood Count 4.95 4.35-5.85 10^6/uL Hemoglobin 14.6 13.3-17.7 G/DL Hematocrit 42 40-54 % Mean Corpuscular Volume 84 80-99 FL Mean Corpuscular Hemoglobin 30 25-34 PG Mean Corpuscular Hemoglobin Concent 35 32-36 G/DL Red Cell Distribution Width 12.9 10.0-14.5 % Platelet Count 180 130-400 10^3/uL Mean Platelet Volume 11.8 H 7.4-10.4 FL Prothrombin Time 13.1 12.2-14.7 SEC INR Comment 1.0 0.8-1.4 Activated Partial Thromboplast Time 30 24-35 SEC Sodium Level 135 135-145 MMOL/L Potassium Level 4.5 3.6-5.0 MMOL/L Chloride Level 103 98-107 MMOL/L Carbon Dioxide Level 20 L 21-32 MMOL/L Anion Gap 12 5-14 MMOL/L Blood Urea Nitrogen 16 7-18 MG/DL Creatinine 0.82 0.60-1.30 MG/DL Estimat Glomerular Filtration Rate > 60 BUN/Creatinine Ratio 20 Glucose Level 309 H 70-105 MG/DL Lactic Acid Level 1.28 0.50-2.00 MMOL/L Calcium Level 9.2 8.5-10.1 MG/DL Total Bilirubin 0.8 0.1-1.0 MG/DL Aspartate Amino Transf (AST/SGOT) 22 5-34 U/L Alanine Aminotransferase (ALT/SGPT) 34 0-55 U/L Alkaline Phosphatase 79 40-136 U/L C-Reactive Protein High Sensitivity 6.73 H 0.00-0.50 MG/DL Total Protein 6.6 6.4-8.2 GM/DL Albumin 3.9 3.2-4.5 GM/DL Urine Color YELLOW Urine Clarity CLEAR Urine pH 5 5-9 Urine Specific [place] 1.015 L 1.016-1.022 Urine Protein NEGATIVE NEGATIVE Urine Glucose (UA) 4+ H NEGATIVE Urine Ketones 4+ H NEGATIVE Urine Nitrite NEGATIVE NEGATIVE Urine Bilirubin NEGATIVE NEGATIVE Urine Urobilinogen NORMAL NORMAL MG/DL Urine Leukocyte Esterase NEGATIVE NEGATIVE Urine RBC (Auto) NEGATIVE NEGATIVE Urine RBC NONE /HPF Urine WBC NONE /HPF Urine Squamous Epithelial Cells 2-5 /HPF Urine Crystals NONE /LPF Urine Bacteria NEGATIVE /HPF Urine Casts NONE /LPF Urine Mucus NEGATIVE /LPF Urine Culture Indicated NO Radiology NAME: JOHN CHAVEZ [facility] REC#: [id number] PT STATUS: REG ER : 1980 PHYSICIAN: ANA BECKER ADMIT DATE: 05/16/17/ER Signed Date of Exam: 05/16/17 CHEST 1 VIEW, AP/PA ONLY EXAM: CHEST 1 VIEW, AP/PA ONLY INDICATION: Fever. COMPARISON: Chest radiograph 01/24/2017. FINDINGS: Normal heart size and pulmonary vascularity. No focal pulmonary opacity, pleural effusion or pneumothorax. No acute osseous findings. No significant change. IMPRESSION: No acute cardiopulmonary findings. Dictated by: Dictated on workstation # [id number] Dict: 05/16/17 1314 Trans: 05/16/17 1508 Interpreted by: AKIN ANGULO MD Electronically signed by: AKIN ANGULO MD 05/16/17 1508 Physical Exam-([facility]) Physical Exam Vital Signs VS - Last 72 Hours, by Label 05/16/17 05/16/17 05/16/17 12:25 12:39 16:22 Temp 102.1 102.1 99.1 Pulse 113 88 Resp 18 18 B/P (MAP) 121/84 Pulse Ox 99 99 Capillary Refill : Less Than 3 Seconds General Appearance: mild distress Eyes: Bilateral Eye Normal Inspection HEENT: normal ENT inspection Neck: non-tender Respiratory: lungs clear Cardiovascular: regular rate, rhythm Peripheral Pulses: 2+ Dorsalis Pedis (R), 2+ Left Dors-Pedis (L) Gastrointestinal: normal bowel sounds, soft Rectal: deferred Back: normal inspection Extremities: other ( there is erythema to the left upper inner thigh. The area of involvement is approximately 10 x 15 cm.) Neurologic/Psychiatric: oriented x 3 Skin: normal color Assessment/Plan Assessment/Plan Admission Dx 1. Cellulitis of the left upper inner aspect of the thigh 2. Diabeticcurrently [id number] 3. Hypertension history of Plan 1. Cellulitis of the left upper inner aspect of the thigh -patient to be admitted for IV antibiotics and IV Levaquin and vancomycin to be initiated. -A culture of the area was obtained in the emergency department. 2. Diabeticcurrently [id number] -Patient placed on sliding insulin scale for now. 3. Hypertension history of -He will be maintained on his home blood pressure medications. Diagnosis/Problems: JUAN MARTINS MD May 16, 2017 16:36
[2017-05-16] MEDS ORDERED: IBUPROFEN 800 MG (MOTRIN) TAB PO PRN (16:45)
[2017-05-16] MEDS ORDERED: fentaNYL INJECTION 100 MCG/2 ML AMP IV PRN (16:45)
[2017-05-16 16:57] VITALS: BP 130/68
[2017-05-16] MEDS ORDERED: VANCOMYCIN 2000 MG/NS 500 ML IVPB IV NR ×2 (17:00)
[2017-05-16] MEDS: NS IV 1000 ML 1,000 ML IV SCH ×2 (17:01→23:42)
[2017-05-16] MEDS: ONDANSETRON 4 MG/2 ML (SDV) Z0FRAN IV SCH ×2 (17:15→23:42)
[2017-05-16] MEDS ORDERED: inSUlin (REGULAR) HUMAN 1 UNIT/0.01 ML (CHARGE PER UNIT) ONE (17:17)
[2017-05-16] MEDS: HYDROcodone/APAP 10 MG/325 MG (LORTAB) TAB PO PRN (17:24)
[2017-05-16] MEDS: inSUlin (REGULAR) HUMAN 1 UNIT/0.01 ML (CHARGE PER UNIT) SC SCH ×2 (17:25→20:38)
[2017-05-16] MEDS ORDERED: HYDR-3816 PO (17:50)
[2017-05-16] MEDS ORDERED: BACL20TA PO (17:50)
[2017-05-16] MEDS ORDERED: GABA800T2 PO (17:50)
[2017-05-16] MEDS ORDERED: OMEP40CA36 PO (17:50)
[2017-05-16] MEDS ORDERED: FLUO40CA PO (17:50)
[2017-05-16] MEDS ORDERED: LISI-552 PO (17:50)
[2017-05-16] MEDS ORDERED: FLUO20CA25 PO (17:50)
[2017-05-16] MEDS ORDERED: ALPR0.5T7 PO ×2 (18:28)
[2017-05-16] MEDS ORDERED: OMEG-160 PO (18:33)
[2017-05-16 20:00] VITALS: BP 127/77
[2017-05-17] VITALS: BP 129/80
[2017-05-17] MEDS: HYDROcodone/APAP 10 MG/325 MG (LORTAB) TAB PO PRN ×3 (01:14→20:16)
[2017-05-17] MEDS: VANCOMYCIN 1 GM/NS 250 ML IVPB IV SCH ×4 (01:15→08:17)
[2017-05-17] MEDS: NS IV 1000 ML 1,000 ML IV SCH ×4 (01:15→23:30)
[2017-05-17 04:00] VITALS: BP 126/65
[2017-05-17] MEDS: ONDANSETRON 4 MG/2 ML (SDV) Z0FRAN IV SCH ×4 (05:36→22:57)
[2017-05-17 05:40] LABS: BASOPHILS % (AUTO) 0 % (0-10); EOSINOPHILS # (AUTO) 0.1 10^3/uL (0.0-0.3); EOSINOPHILS % (AUTO) 1 % (0-10); LYMPHOCYTES # (AUTO) 2.1 X 10^3 (1.0-4.0); LYMPHOCYTES % (AUTO) 22 % (12-44); MEAN CORPUSCULAR HEMOGLOBIN 30 PG (25-34); MEAN CORPUSCULAR HGB CONC 35 G/DL (32-36); MEAN CORPUSCULAR VOLUME 86 FL (80-99); MEAN PLATELET VOLUME 11.5 FL (7.4-10.4); MONOCYTES # (AUTO) 0.8 X 10^3 (0.0-1.0); MONOCYTES % (AUTO) 9 % (0-12); NEUTROPHILS # (AUTO) 6.6 X 10^3 (1.8-7.8); NEUTROPHILS % (AUTO) 69 % (42-75); PLATELET COUNT 153 10^3/uL (130-400); RED BLOOD COUNT 4.19 10^6/uL (4.35-5.85); RED CELL DISTRIBUTION WIDTH 12.9 % (10.0-14.5); WHITE BLOOD COUNT 9.6 10^3/uL (4.3-11.0)
[2017-05-17] MEDS: inSUlin (REGULAR) HUMAN 1 UNIT/0.01 ML (CHARGE PER UNIT) SC SCH ×4 (05:40→20:07)
[2017-05-17 06:04] LABS: ALANINE AMINOTRANSFERASE 29 U/L (0-55); ALBUMIN 3.3 GM/DL (3.2-4.5); ANION GAP 9 MMOL/L (5-14); ASPARTATE AMINO TRANSFERASE 20 U/L (5-34); BLOOD UREA NITROGEN 12 MG/DL (7-18); BUN/CREATININE RATIO 15; CALCIUM 8.3 MG/DL (8.5-10.1); CARBON DIOXIDE 20 MMOL/L (21-32); CHLORIDE 107 MMOL/L (98-107); CREATININE SERUM 0.78 MG/DL (0.60-1.30); GFR ESTIMATED > 60; GLUCOSE 258 MG/DL (70-105); POTASSIUM 4.2 MMOL/L (3.6-5.0); SODIUM 136 MMOL/L (135-145); TOTAL PROTEIN 5.7 GM/DL (6.4-8.2)
[2017-05-17 08:00] VITALS: BP 110/56
[2017-05-17] MEDS ORDERED: FLUoxetine HCL 20 MG (PROzac) CAP PO SCH ×3 (09:40→21:00)
[2017-05-17] MEDS ORDERED: inSUlin ASPART (NovoLOG) 1 UNIT/0.01 ML (CHARGE PER UNIT) SC PRN (09:45)
--- NOTE | 2017-05-17 09:49 | Progress Note (SOAP) ---
Subjective Subjective/Events-last exam Reports pain in leg is worse than yesterday. Was febrile overnight. Review of Systems Date Seen by Provider: May 17, 2017 Time Seen by Provider: 08:45 Objective Exam Last Set of Vital Signs Vital Signs Date Time Temp Pulse Resp B/P (MAP) Pulse Ox O2 Delivery O2 Flow Rate FiO2 05/17/17 08:00 97.7 89 20 110/56 99 Room Air Capillary Refill : Less Than 3 Seconds I&O Intake and Output 05/18/17 00:00 Intake Total 1650 ml Output Total 2200 ml Balance -550 ml Intake Oral 400 ml IV Total 1250 ml Output Urine Total 2200 ml General: Alert, No Acute Distress Lungs: Clear to Auscultation, Normal Air Movement Heart: Regular Rate, No Murmurs Skin: Other (left inner thigh with erythema extending beyond drawn borders with a central ulceration with no active drainage) Psych/Mental Status: Mental Status NL Results/Procedures Lab Laboratory Tests 05/16/17 12:30: White Blood Count 11.9H, Red Blood Count 4.95, Hemoglobin 14.6, Hematocrit 42, Mean Corpuscular Volume 84, Mean Corpuscular Hemoglobin 30, Mean Corpuscular Hemoglobin Concent 35, Red Cell Distribution Width 12.9, Platelet Count 180, Mean Platelet Volume 11.8H, Prothrombin Time 13.1, INR Comment 1.0, Activated Partial Thromboplast Time 30, Sodium Level 135, Potassium Level 4.5, Chloride Level 103, Carbon Dioxide Level 20L, Anion Gap 12, Blood Urea Nitrogen 16, Creatinine 0.82, Estimat Glomerular Filtration Rate > 60, BUN/Creatinine Ratio 20, Glucose Level 309H, Lactic Acid Level 1.28, Calcium Level 9.2, Total Bilirubin 0.8, Aspartate Amino Transf (AST/SGOT) 22, Alanine Aminotransferase ( ALT/SGPT) 34, Alkaline Phosphatase 79, C-Reactive Protein High Sensitivity 6.73H , Total Protein 6.6, Albumin 3.9 05/16/17 14:45: Urine Color YELLOW, Urine Clarity CLEAR, Urine pH 5, Urine Specific [place] 1.015L, Urine Protein NEGATIVE, Urine Glucose (UA) 4+H, Urine Ketones 4+H, Urine Nitrite NEGATIVE, Urine Bilirubin NEGATIVE, Urine Urobilinogen NORMAL, Urine Leukocyte Esterase NEGATIVE, Urine RBC (Auto) NEGATIVE, Urine RBC NONE, Urine WBC NONE, Urine Squamous Epithelial Cells 2-5, Urine Crystals NONE, Urine Bacteria NEGATIVE, Urine Casts NONE, Urine Mucus NEGATIVE, Urine Culture Indicated NO 05/16/17 17:04: Glucometer 206H 05/16/17 20:25: Glucometer 301H 05/17/17 05:06: Glucometer 241H 05/17/17 05:30: White Blood Count 9.6, Red Blood Count 4.19L, Hemoglobin 12.4L, Hematocrit 36L, Mean Corpuscular Volume 86, Mean Corpuscular Hemoglobin 30, Mean Corpuscular Hemoglobin Concent 35, Red Cell Distribution Width 12.9, Platelet Count 153, Mean Platelet Volume 11.5H, Neutrophils (%) (Auto) 69, Lymphocytes (%) (Auto) 22 , Monocytes (%) (Auto) 9, Eosinophils (%) (Auto) 1, Basophils (%) (Auto) 0, Neutrophils # (Auto) 6.6, Lymphocytes # (Auto) 2.1, Monocytes # (Auto) 0.8, Eosinophils # (Auto) 0.1, Basophils # (Auto) 0.0, Sodium Level 136, Potassium Level 4.2, Chloride Level 107, Carbon Dioxide Level 20L, Anion Gap 9, Blood Urea Nitrogen 12, Creatinine 0.78, Estimat Glomerular Filtration Rate > 60, BUN/ Creatinine Ratio 15, Glucose Level 258H, Lactic Acid Level 0.79, Calcium Level 8.3L, Total Bilirubin 1.0, Aspartate Amino Transf (AST/SGOT) 20, Alanine Aminotransferase (ALT/SGPT) 29, Alkaline Phosphatase 66, C-Reactive Protein High Sensitivity 18.30H, Total Protein 5.7L, Albumin 3.3 Radiology NAME: JOHN CHAVEZ [facility] REC#: [id number] PT STATUS: REG ER : 1980 PHYSICIAN: ANA BECKER ADMIT DATE: 05/16/17/ER Signed Date of Exam: 05/16/17 CHEST 1 VIEW, AP/PA ONLY EXAM: CHEST 1 VIEW, AP/PA ONLY INDICATION: Fever. COMPARISON: Chest radiograph 01/24/2017. FINDINGS: Normal heart size and pulmonary vascularity. No focal pulmonary opacity, pleural effusion or pneumothorax. No acute osseous findings. No significant change. IMPRESSION: No acute cardiopulmonary findings. Dictated by: Dictated on workstation # [id number] Dict: 05/16/17 1314 Trans: 05/16/17 1508 Interpreted by: AKIN ANGULO MD Electronically signed by: AKIN ANGULO MD 05/16/17 1508 Assessment/Plan Assessment/Plan Admission Dx 1. Cellulitis of the left upper inner aspect of the thigh 2. Diabeticcurrently [id number] 3. Hypertension history of Plan 1. Cellulitis of the left upper inner aspect of the thigh -patient to be admitted for IV antibiotics and IV Levaquin and vancomycin to be initiated. -A culture of the area was obtained in the emergency department. 05/17- labs with improvement but clinically worsened, check US for abscess, continue vanc and levaquin 2. Diabeticcurrently [id number] -Patient placed on sliding insulin scale for now. -05/17- resume home insulin -60 units aspart AC and 80 units BID levemir 3. Hypertension history of -He will be maintained on his home blood pressure medications. DVT ppx- enoxaparin Diagnosis/Problems: Clinical Quality Measures DVT/VTE Risk/Contraindication: Risk Factor Score Per Nursin RFS Level Per Nursing on Admit: 2=Moderate CONI PEPE MD May 17, 2017 9:49 am
[2017-05-17] MEDS: GABAPENTIN 400 MG (NEURONTIN) CAP PO SCH ×3 (10:06→20:15)
[2017-05-17] MEDS: metFORMIN XR 500 MG (GLUCOPHAGE XR) TAB PO SCH ×2 (10:07→16:55)
[2017-05-17] MEDS: inSUlin DETERMIR 1 UNIT/0.01 ML (LEVEMIR) CHARGE PER UNIT SQ SCH ×2 (10:07→20:15)
[2017-05-17] MEDS: BACLOFEN 10 MG (LIORESAL) TAB PO SCH ×3 (10:07→20:17)
[2017-05-17] MEDS: ENOXAPARIN 40 MG/0.4 ML (LOVENOX) SYR SC SCH (10:13)
[2017-05-17] MEDS: inSUlin ASPART (NovoLOG) 1 UNIT/0.01 ML (CHARGE PER UNIT) SC SCH ×3 (10:46→16:55)
--- OUTSIDE RECORDS SUMMARY | 2017-05-17 11:14 | XMS REPORT ---
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 Active 996376676 Problem Diabetic polyneuropathy associated with type 2 diabetes mellitus E11.42 Active 95188454 Problem Controlled type 2 diabetes mellitus without complication, without long -term current use of insulin E11.9 Active 882485154 Problem Encounter for dental examination Z01.20 Active 970082508 Problem Diabetes type 2, controlled E11.9 Active 12267462 Problem Anxiety F41.9 Active 25093658 Problem long term acute care registered nurse 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.4 Active 176430098 Problem GERD without esophagitis K21.9 Active 115673394 Problem Diverticulitis of small intestine without perforation or abscess without bleeding K57.12 Active 38202184 Problem Type 2 diabetes mellitus with hyperglycemia E11.65 Active 671897218 Problem Other male erectile dysfunction N52.8 Active 811123609 Problem Insomnia, unspecified G47.00 Active 131809917 Problem Obesity, unspecified E66.9 Active 468725301 Problem Gastro-esophageal reflux disease with esophagitis K21.0 Active 208880143 Problem Hypertension I10 Active 45078550 Problem Diabetes type 2, uncontrolled E11.65 Active 236555834 Problem 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 Active 85192310 Problem Type 2 diabetes mellitus with hyperglycemia E11.65 Active 191276752 Problem Generalized anxiety disorder F41.1 Active 11902794 Problem Polyneuropathy G62.9 Active 65471750 ALLERGIES Substance Reaction Event Type Date Status Zoloft hives adverse reaction Drug Allergy Aug, Active Wellbutrin "out of it" Drug Allergy Aug, Active Clindamycin HCl itching Drug Allergy Aug, Active BuSpar local swelling Drug Allergy Aug, Active SOCIAL HISTORY No smoking Hx information available PLAN OF CARE Activity Details Follow Up prn Reason: VITAL SIGNS Height 70 in 2016-09-11 Weight 312.8 lbs 2016-09-11 Temperature 97.5 degrees Fahrenheit 2016-09-11 Heart Rate 100 bpm 2016-09-11 Respiratory Rate 22 2016-09-11 BMI 44.88 kg/m2 2016-09-11 Blood pressure systolic 146 mmHg 2016-09-11 Blood pressure diastolic 92 mmHg 2016-09-11 MEDICATIONS Medication Instructions Dosage Frequency Start Date End Date Duration Status Xanax 0.25 MG Orally Once in the morning and at bedtime for anxiety 1 tablet Active Insulin Aspart 100 UNIT/ML Subcutaneous TID w/ meals 50 units 20 Active Adderall 10 mg Orally Once a day 1 tablet in the morning 24h Jul, Active Lisinopril 20 MG Orally Once a day 1 tablet 24h 30 days Active Test strips Test Strips Accucheck Alem E11.19 3 times a day test blood sugar 8h Nov, Active Zantac 150 Maximum Strength 150 MG Orally Once a day 1 tablet at bedtime 24h Aug, 30 day(s) Active Gabapentin 800 MG Orally Three times a day 1 tablet 8h Aug, 30 day(s) Active Diflucan 100 MG Orally once er day 1 tablet Jul, 07 days Active Insulin Detemir 100 UNIT/ML Subcutaneous 2 times per day 80 units Active MetFORMIN HCl ER (MOD) 500 MG Orally 2 times a day 2 tablets 12h Active Omeprazole 20 MG Orally Once a day 2 capsules 24h Aug, 30 day(s ) Active Ibuprofen 800 MG Orally Three times a day 1 tablet 8h 34 Active [place] 5-325 MG Orally every 6 hrs 1 tablet as needed 6h May, Active Ketoconazole 2 % Externally Twice a day 1 application to affected area 12h Jul, Sep, 14 days Active Prozac 20 mg Orally Once a day 1 capsule 24h Oct, Active RESULTS Name Result Date Reference Range UA LONG DIP (IN HOUSE) Lot # [id number] Exp date 2017-10-20 Clarity clear Color yellow Odor strong GLU 2+ MURIEL negative KET 1+ SG 1.020 BLO negative pH 6.0 Protein negative URO 0.2 NIT negative ASHU negative Lot # [id number] Exp date 2017-10 PROCEDURES Procedure Date Ordered Related Diagnosis Body Site URINALYSIS, AUTO, W/O SCOPE Sep 11, 2016 [facility] VISIT ESTABLISHED PATIENT Sep 11, 2016 Office Visit, Est Pt., Level 3 Sep 11, 2016 IMMUNIZATIONS No Known Immunizations
--- NOTE | 2017-05-17 11:16 | Diagnostic Imaging Report ---
INDICATION: Left upper thigh redness and swelling with skin lesion. TECHNIQUE: Limited Real-time grayscale images were obtained over the left upper extremity in various projections. FINDINGS: There appears to be some diffuse subcutaneous edema in the thigh. There is a more focally involved area measuring 4.7 x 2.3 x 1.9 cm. This does not, however, have the appearance of a mature abscess. IMPRESSION: Findings are suspect for focal cellulitis in the left thigh without evidence of discrete abscess or mass. Dictated by: Dictated on workstation # [id number]
[2017-05-17] MEDS: LEVOFLOXACIN 750 MG/D5W 150 ML PRE-MIX IV SCH (11:17)
--- OUTSIDE RECORDS SUMMARY | 2017-05-17 11:24 | XMS REPORT ---
Author Author CLIVE HIMANSHU Organization 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 Active 477876404 Problem Diabetic polyneuropathy associated with type 2 diabetes mellitus E11.42 Active 70602712 Problem Controlled type 2 diabetes mellitus without complication, without long -term current use of insulin E11.9 Active 400372355 Problem Encounter for dental examination Z01.20 Active 835419095 Problem Diabetes type 2, controlled E11.9 Active 98123972 Problem Anxiety F41.9 Active 21529747 Problem community organization aide 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.4 Active 132114135 Problem GERD without esophagitis K21.9 Active 551192833 Problem Diverticulitis of small intestine without perforation or abscess without bleeding K57.12 Active 95371194 Problem Type 2 diabetes mellitus with hyperglycemia E11.65 Active 740965524 Problem Other male erectile dysfunction N52.8 Active 387717380 Problem Insomnia, unspecified G47.00 Active 952041206 Problem Obesity, unspecified E66.9 Active 141246600 Problem Gastro-esophageal reflux disease with esophagitis K21.0 Active 681414126 Problem Hypertension I10 Active 53250580 Problem Diabetes type 2, uncontrolled E11.65 Active 585796349 Problem 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 Active 32226482 Problem Type 2 diabetes mellitus with hyperglycemia E11.65 Active 713719267 Problem Generalized anxiety disorder F41.1 Active 35476365 Problem Polyneuropathy G62.9 Active 92445306 ALLERGIES Substance Reaction Event Type Date Status Zoloft hives adverse reaction Drug Allergy Jul, Active Wellbutrin "out of it" Drug Allergy Jul, Active Clindamycin HCl itching Drug Allergy Jul, Active BuSpar local swelling Drug Allergy Jul, Active SOCIAL HISTORY No smoking Hx information available PLAN OF CARE Activity Details Follow Up 2 Weeks Reason:with pcp VITAL SIGNS Height 70 in 2016-08-18 Weight 313.2 lbs 2016-08-18 Temperature 97.8 degrees Fahrenheit 2016-08-18 Heart Rate 94 bpm 2016-08-18 Respiratory Rate 18 2016-08-18 BMI 44.93 kg/m2 2016-08-18 Blood pressure systolic 134 mmHg 2016-08-18 Blood pressure diastolic 84 mmHg 2016-08-18 MEDICATIONS Medication Instructions Dosage Frequency Start Date End Date Duration Status Ketoconazole 2 % Externally Once a day 1 application to affected area 24h Jul, Active Cetirizine HCl 10 mg Orally Once a day 1 tablet 24h Feb, Aug, 30 day(s) Active Diflucan 100 MG Orally once er day 1 tablet Jul, Aug, 07 days Active Test strips Test Strips Accucheck Alem E11.19 3 times a day test blood sugar 8h Nov, Active Prozac 20 mg Orally Once a day 1 capsule 24h Oct, Active Adderall 10 mg Orally Once a day 1 tablet in the morning 24h Jul, Active Lyrica 75 MG Orally 3 times a day 1 capsule 8h 13 Jun, 2016 Active MetFORMIN HCl ER (MOD) 500 MG Orally 2 times a day 2 tablets 12h Active Ibuprofen 800 MG Orally Three times a day 1 tablet 8h 34 Active Insulin Detemir 100 UNIT/ML Subcutaneous 2 times per day 80 units Active Lisinopril 20 MG Orally Once a day 1 tablet 24h 30 days Active Insulin Aspart 100 UNIT/ML Subcutaneous TID w/ meals 50 units 20 Active [place] 5-325 MG Orally every 6 hrs 1 tablet as needed 6h May, Active Xanax 0.25 MG Orally Once in the morning and at bedtime for anxiety 1 tablet Active RESULTS No Results PROCEDURES Procedure Date Ordered Related Diagnosis Body Site [facility] VISIT ESTABLISHED PATIENT Aug 18, 2016 Office Visit, Est Pt., Level 4 Aug 18, 2016 IMMUNIZATIONS No Known Immunizations
[2017-05-17 12:00] VITALS: BP 119/58
[2017-05-17 15:57] VITALS: BP 121/69
[2017-05-17] MEDS ORDERED: TROUGH ORDER-PHARMACY XX ONE (16:00)
[2017-05-17 16:29] LABS: TROPONIN I < 0.30 NG/ML (<0.30)
[2017-05-17] MEDS: VANCOMYCIN 1500 MG/NS 500 ML IVPB IV SCH ×2 (17:35)
[2017-05-17 20:09] VITALS: BP 122/62
[2017-05-17] MEDS ORDERED: ALPRAZolam 1 MG (XANAX) TAB PO SCH (21:00)
[2017-05-18] VITALS: BP 128/74
[2017-05-18] MEDS: VANCOMYCIN 1500 MG/NS 500 ML IVPB IV SCH ×4 (01:14→08:32)
[2017-05-18 04:00] VITALS: BP 130/82
[2017-05-18] MEDS: ONDANSETRON 4 MG/2 ML (SDV) Z0FRAN IV SCH ×2 (04:55→10:53)
[2017-05-18] MEDS: inSUlin (REGULAR) HUMAN 1 UNIT/0.01 ML (CHARGE PER UNIT) SC SCH ×2 (06:21→11:04)
[2017-05-18 06:26] LABS: BASOPHILS % (AUTO) 0 % (0-10); EOSINOPHILS # (AUTO) 0.1 10^3/uL (0.0-0.3); EOSINOPHILS % (AUTO) 1 % (0-10); LYMPHOCYTES # (AUTO) 1.8 X 10^3 (1.0-4.0); LYMPHOCYTES % (AUTO) 21 % (12-44); MEAN CORPUSCULAR HEMOGLOBIN 30 PG (25-34); MEAN CORPUSCULAR HGB CONC 35 G/DL (32-36); MEAN CORPUSCULAR VOLUME 85 FL (80-99); MEAN PLATELET VOLUME 11.7 FL (7.4-10.4); MONOCYTES # (AUTO) 0.8 X 10^3 (0.0-1.0); MONOCYTES % (AUTO) 9 % (0-12); NEUTROPHILS # (AUTO) 5.7 X 10^3 (1.8-7.8); NEUTROPHILS % (AUTO) 68 % (42-75); PLATELET COUNT 141 10^3/uL (130-400); RED BLOOD COUNT 4.38 10^6/uL (4.35-5.85); RED CELL DISTRIBUTION WIDTH 12.9 % (10.0-14.5); WHITE BLOOD COUNT 8.4 10^3/uL (4.3-11.0)
[2017-05-18 06:55] LABS: ANION GAP 8 MMOL/L (5-14); BLOOD UREA NITROGEN 13 MG/DL (7-18); BUN/CREATININE RATIO 20; CALCIUM 8.5 MG/DL (8.5-10.1); CARBON DIOXIDE 19 MMOL/L (21-32); CHLORIDE 110 MMOL/L (98-107); CREATININE SERUM 0.66 MG/DL (0.60-1.30); GFR ESTIMATED > 60; GLUCOSE 138 MG/DL (70-105); POTASSIUM 3.8 MMOL/L (3.6-5.0); SODIUM 137 MMOL/L (135-145)
[2017-05-18] MEDS: metFORMIN XR 500 MG (GLUCOPHAGE XR) TAB PO SCH (06:58)
[2017-05-18] MEDS ORDERED: PANTOPRAZOLE 40 MG (PROTONIX) TAB PO SCH (07:00)
[2017-05-18] MEDS: inSUlin ASPART (NovoLOG) 1 UNIT/0.01 ML (CHARGE PER UNIT) SC SCH ×2 (07:01→11:06)
[2017-05-18 08:00] VITALS: BP 103/63
[2017-05-18] MEDS: GABAPENTIN 400 MG (NEURONTIN) CAP PO SCH (08:31)
[2017-05-18] MEDS: inSUlin DETERMIR 1 UNIT/0.01 ML (LEVEMIR) CHARGE PER UNIT SQ SCH (08:32)
[2017-05-18] MEDS: BACLOFEN 10 MG (LIORESAL) TAB PO SCH (08:32)
[2017-05-18] MEDS ORDERED: lisINopril 20 MG (ZESTRIL) TAB PO SCH (09:00)
[2017-05-18] MEDS ORDERED: FLUoxetine HCL 20 MG (PROzac) CAP PO SCH (09:00)
[2017-05-18] MEDS ORDERED: NON-FORMULARY MEDICATION 1 EA EA (Dextroamphetamine/Amphetamine (Amphetamine Salts 10 mg T PO SCH (09:00)
[2017-05-18] MEDS ORDERED: ALPRAZolam 0.5 MG (XANAX) TAB PO SCH (09:00)
[2017-05-18] MEDS: ENOXAPARIN 40 MG/0.4 ML (LOVENOX) SYR SC SCH (10:55)
[2017-05-18] MEDS ORDERED: LEVO750T39 PO (11:51)
[2017-05-18] MEDS: LEVOFLOXACIN 750 MG/D5W 150 ML PRE-MIX IV SCH (11:53)
--- NOTE | 2017-05-18 11:53 | Discharge Instructions ---
Discharge [facility] Discharge Medications New, Converted or Re-Newed RX: Transmitted to Pharmacy New Medications: Levofloxacin (Levofloxacin) 750 Mg Tablet 750 MG PO DAILY for 8 Days, #8 TAB 0 Refills Continued Medications: Alprazolam (Alprazolam) 0.5 Mg Tablet 0.5 MG PO DAILY LAST FILLED 03/29/17 #90 Alprazolam (Alprazolam) 0.5 Mg Tablet 1 MG PO HS, TAB TAKES 2 (0.5 MG) TABLETS / LAST FILLED 03/29/17 #90 Baclofen (Baclofen) 20 Mg Tablet 20 MG PO TID Cinnamon Bark (Cinnamon) 500 Mg Capsule 1000 MG PO DAILY TAKES 2 (500MG) CAPSULES Dextroamphetamine/Amphetamine (Amphetamine Salts 10 mg Tablet) 10 Mg Tablet 10 MG PO DAILY Fluoxetine HCl (Fluoxetine HCl) 20 Mg Capsule 20 MG PO DAILY TAKES IN ADDITION TO FLUOXETINE 40 MG DAILY FOR A TOTAL DOSE OF 60 MG Fluoxetine HCl (Fluoxetine HCl) 40 Mg Capsule 40 MG PO DAILY TAKES IN ADDITION TO FLUOXETINE 20 MG DAILY FOR A TOTAL DOSE OF 60 MG Gabapentin (Gabapentin) 800 Mg Tablet 800 MG PO TID Hydrocodone/Acetaminophen (Hydrocodon-Acetaminoph 7.5-325) 1 Each Tablet 1 TAB PO Q6H PRN for PAIN-MODERATE Ibuprofen (Ibuprofen) 800 Mg Tablet 800 MG PO TID PRN for PAIN Insulin Aspart (Novolog Flexpen) 300 Units/3 Ml Solution 60 UNITS SQ AC PRN for BLOOD SUGAR Insulin Detemir (Levemir Flextouch) 100 Unit/1 Ml Insuln.pen 80 UNITS SQ BID Lisinopril (Lisinopril) 20 Mg Tablet 20 MG PO DAILY Metformin HCl (Metformin HCl ER) 500 Mg Tab.er.24h 1000 MG PO BID TAKES 2 (500 MG) TABLETS Multivitamin (Men's Multi-Vitamin) 1 Each Tablet 1 TAB PO DAILY [place]-3/Dha/Epa/Fish Oil (Fish Oil 1,000 mg Softgel) 1 Each Capsule 1000 MG PO BID, CAP Omeprazole (Omeprazole) 40 Mg Capsule.dr 40 MG PO DAILY Patient Instructions Goal/Follow Up Appt: Follow up with Dr. Johnson on 05/21 at 2 pm. Activity & Diet Discharge Diet: ADA Diet Activity as Tolerated: Yes Orders-Post D/C & Referrals Pneu Vac Indicated: Yes Copy Copies To 1: ESSIE JOHNSON MD, BETHANY N MD May 18, 2017 11:52 am
[2017-05-18] MEDS ORDERED: TROUGH ORDER-PHARMACY XX NR (16:00)
--- NOTE | 2017-05-18 16:50 | Discharge Summary ---
Diagnosis/Chief Complaint Date of Admission May 16, 2017 at 3:58 pm Date of Discharge May 18, 2017 at 1:30 pm Admission Diagnosis Admission Diagnosis 1. Cellulitis of the left upper inner aspect of the thigh 2. Diabeticcurrently [id number] 3. Hypertension history of Discharge Diagnosis 1. Cellulitis of the left upper inner aspect of the thigh -patient to be admitted for IV antibiotics and IV Levaquin and vancomycin to be initiated. -A culture of the area was obtained in the emergency department. 05/17- labs with improvement but clinically worsened, check US for abscess, continue vanc and levaquin 05/18- improving, labs improved and ultrasound with no abscess. Culture with beta hemolytic group B strep. Discharged to complete course of levofloxacin. 2. Diabeticcurrently [id number] -Patient placed on sliding insulin scale for now. -05/17- resumed home insulin -60 units aspart AC and 80 units BID levemir 3. Hypertension history of -He will be maintained on his home blood pressure medications. Chief Complaint/HPI Chief Complaint/HPI 37-year-old male presents to [facility] emergency department with left inner upper thigh tenderness and erythema. He reports he felt like he was hit by a truck this morning when he felt in this area. He knew that the area was not improving despite oral antibiotics he has received her [facility]. 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 He denies any fever but he hasn't actually taken it with a thermometer. He has a known diabetic and is also with hypertension. Discharge Summary-Simple/Stand Consultations Discharge Physical Examination Allergies: Coded Allergies: sertraline (Verified Allergy, Severe, RASH, SWELLING, 01/20/16) "FELT LOOPY" bupropion (Verified Allergy, Unknown, "CAUSED ME TO BANG MY HEAD ON THE WALL", 01/20/16) buspirone (Verified Allergy, Unknown, THROAT SWELLED, 01/20/16) cephalexin (Verified Allergy, Unknown, HIVES, 01/20/16) codeine (Verified Allergy, Unknown, 01/20/16) Vitals & I&Os Vital Sign - Last 12Hours Date Time Temp Pulse Resp B/P (MAP) Pulse Ox O2 Delivery O2 Flow Rate FiO2 05/18/17 13:31 05/18/17 08:00 97.4 90 20 94 Room Air Intake and Output 05/19/17 00:00 Intake Total 150 ml Balance 150 ml General Appearance: Alert, No Acute Distress Skin: Other (Mild erythema of left inner thigh, receding from lines drawn on admission and less tender than yesterday) Neuro: Normal Speech Psych/Mental Status: Mental Status NL Hospital Course See final discharge diagnosis. Labs Laboratory Tests Test 05/16/17 17:04 05/16/17 20:25 05/17/17 05:06 05/17/17 05:30 Range/Units Glucometer 206 H 301 H 241 H 70-110 MG/DL White Blood Count 9.6 4.3-11.0 10^3/uL Red Blood Count 4.19 L 4.35-5.85 10^6/uL Hemoglobin 12.4 L 13.3-17.7 G/DL Hematocrit 36 L 40-54 % Mean Corpuscular Volume 86 80-99 FL Mean Corpuscular Hemoglobin 30 25-34 PG Mean Corpuscular Hemoglobin Concent 35 32-36 G/DL Red Cell Distribution Width 12.9 10.0-14.5 % Platelet Count 153 130-400 10^3/uL Mean Platelet Volume 11.5 H 7.4-10.4 FL Neutrophils (%) (Auto) 69 42-75 % Lymphocytes (%) (Auto) 22 12-44 % Monocytes (%) (Auto) 9 0-12 % Eosinophils (%) (Auto) 1 0-10 % Basophils (%) (Auto) 0 0-10 % Neutrophils # (Auto) 6.6 1.8-7.8 X 10^3 Lymphocytes # (Auto) 2.1 1.0-4.0 X 10^3 Monocytes # (Auto) 0.8 0.0-1.0 X 10^3 Eosinophils # (Auto) 0.1 0.0-0.3 10^3/uL Basophils # (Auto) 0.0 0.0-0.1 10^3/uL Sodium Level 136 135-145 MMOL/L Potassium Level 4.2 3.6-5.0 MMOL/L Chloride Level 107 98-107 MMOL/L Carbon Dioxide Level 20 L 21-32 MMOL/L Anion Gap 9 5-14 MMOL/L Blood Urea Nitrogen 12 7-18 MG/DL Creatinine 0.78 0.60-1.30 MG/DL Estimat Glomerular Filtration Rate > 60 BUN/Creatinine Ratio 15 Glucose Level 258 H 70-105 MG/DL Lactic Acid Level 0.79 0.50-2.00 MMOL/L Calcium Level 8.3 L 8.5-10.1 MG/DL Total Bilirubin 1.0 0.1-1.0 MG/DL Aspartate Amino Transf (AST/SGOT) 20 5-34 U/L Alanine Aminotransferase (ALT/SGPT) 29 0-55 U/L Alkaline Phosphatase 66 40-136 U/L C-Reactive Protein High Sensitivity 18.30 H 0.00-0.50 MG/DL Total Protein 5.7 L 6.4-8.2 GM/DL Albumin 3.3 3.2-4.5 GM/DL Test 05/17/17 11:14 05/17/17 15:50 05/17/17 16:00 05/17/17 20:03 Range/Units Glucometer 284 H 111 H 107 70-110 MG/DL Troponin I < 0.30 <0.30 NG/ML Vancomycin Level Trough 6.0 L 10.0-20.0 UG/ML Test 05/18/17 05:39 Range/Units White Blood Count 8.4 4.3-11.0 10^3/uL Red Blood Count 4.38 4.35-5.85 10^6/uL Hemoglobin 13.0 L 13.3-17.7 G/DL Hematocrit 37 L 40-54 % Mean Corpuscular Volume 85 80-99 FL Mean Corpuscular Hemoglobin 30 25-34 PG Mean Corpuscular Hemoglobin Concent 35 32-36 G/DL Red Cell Distribution Width 12.9 10.0-14.5 % Platelet Count 141 130-400 10^3/uL Mean Platelet Volume 11.7 H 7.4-10.4 FL Neutrophils (%) (Auto) 68 42-75 % Lymphocytes (%) (Auto) 21 12-44 % Monocytes (%) (Auto) 9 0-12 % Eosinophils (%) (Auto) 1 0-10 % Basophils (%) (Auto) 0 0-10 % Neutrophils # (Auto) 5.7 1.8-7.8 X 10^3 Lymphocytes # (Auto) 1.8 1.0-4.0 X 10^3 Monocytes # (Auto) 0.8 0.0-1.0 X 10^3 Eosinophils # (Auto) 0.1 0.0-0.3 10^3/uL Basophils # (Auto) 0.0 0.0-0.1 10^3/uL Sodium Level 137 135-145 MMOL/L Potassium Level 3.8 3.6-5.0 MMOL/L Chloride Level 110 H 98-107 MMOL/L Carbon Dioxide Level 19 L 21-32 MMOL/L Anion Gap 8 5-14 MMOL/L Blood Urea Nitrogen 13 7-18 MG/DL Creatinine 0.66 0.60-1.30 MG/DL Estimat Glomerular Filtration Rate > 60 BUN/Creatinine Ratio 20 Glucose Level 138 H 70-105 MG/DL Calcium Level 8.5 8.5-10.1 MG/DL Radiology Reviewed NAME: JOHN CHAVEZ [facility] REC#: [id number] PT STATUS: REG ER : 1980 PHYSICIAN: ANA BECKER ADMIT DATE: 05/16/17/ER Signed Date of Exam: 05/16/17 CHEST 1 VIEW, AP/PA ONLY EXAM: CHEST 1 VIEW, AP/PA ONLY INDICATION: Fever. COMPARISON: Chest radiograph 01/24/2017. FINDINGS: Normal heart size and pulmonary vascularity. No focal pulmonary opacity, pleural effusion or pneumothorax. No acute osseous findings. No significant change. IMPRESSION: No acute cardiopulmonary findings. Dictated by: Dictated on workstation # [id number] Dict: 05/16/17 1314 Trans: 05/16/17 1508 Interpreted by: AKIN ANGULO MD Electronically signed by: AKIN ANGULO MD 05/16/17 1508 Discharge Instructions to patient/family Please see electonic discharge instructions given to patient. Discharge Medications Reviewed and agree with Discharge Medication list on patient's Discharge Instruction sheet Clinical Quality Measures DVT/VTE Risk/Contraindication: Risk Factor Score Per Nursin RFS Level Per Nursing on Admit: 2=Moderate Copy Copies To 1: PASCUAL Sevilla BETHANY N MD May 18, 2017 4:50 pm
== END 2017-05-18 13:30 | disposition home or self-care (01) | DRG 603 ==
LOC: EDUNIT# 11:55 → ER 11:56 → 4TH 15:58
PROVIDERS: ADMIT Family Medicine; ATTEND Family Medicine
DX: L03.116 Cellulitis of left lower limb (principal); B95.1 Streptococcus, group B, as the cause of diseases classified elsewhere; E11.65 Type 2 diabetes mellitus with hyperglycemia; E11.40 Type 2 diabetes mellitus with diabetic neuropathy, unspecified; Z68.42 Body mass index [BMI] 45.0-49.9, adult; E66.01 Morbid (severe) obesity due to excess calories; I10 Essential (primary) hypertension; F90.9 Attention-deficit hyperactivity disorder, unspecified type; M79.1 Myalgia; F12.10 Cannabis abuse, uncomplicated; K21.9 Gastro-esophageal reflux disease without esophagitis; F41.9 Anxiety disorder, unspecified; F32.9 Major depressive disorder, single episode, unspecified; Z79.4 Long term (current) use of insulin
CPT/HCPCS: 36415; 71010; 76999; 80048; 80053; 80202; 81000; 82962; 83605; 84484; 85025; 85027; 85610; 85730; 86141; 87040; 87070; 87077; 87205; 93005; 96361; 96365; 96366

== ENCOUNTER 2017-07-13 21:46 | Emergency (ER) | payer MEDICARE, MEDICAID ==
[~2017-07-13] VITALS: Ht 177.8 cm; Wt 147.9 kg
[~2017-07-13 21:46] MED LIST changes: +ALPR0.5T7 PO; +BACL20TA PO; +FLUO40CA PO; +GABA800T2 PO; +HYDR-3816 PO; +LEVO750T39 PO; +OMEG-160 PO; +OMEP40CA36 PO
--- OUTSIDE RECORDS SUMMARY | 2017-07-13 21:53 | XMS REPORT ---
Author Author NERISSA MARTINEZ [facility] Address [address] [place] [address] Care Team Providers Care Drill Foreman Name Role Phone NERISSA MARTINEZ Unavailable PROBLEMS Type Condition ICD9-CM Code [id number] Code Onset Dates Condition Status SNOMED Code Problem Controlled type 2 diabetes mellitus without complication, without long -term current use of insulin E11.9 Active 666667640 Problem GERD without esophagitis K21.9 Active 492000533 Problem Diabetic polyneuropathy associated with type 2 diabetes mellitus E11.42 Active 05389395 Problem Hypertriglyceridemia E78.1 Active 756063431 Problem Obesity, unspecified E66.9 Active 339847339 Problem Encounter for dental examination Z01.20 Active 447449613 Problem Other male erectile dysfunction N52.8 Active 696632660 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.4 Active 597932089 Problem Type 2 diabetes mellitus with hyperglycemia E11.65 Active 840342653 Problem Anxiety F41.9 Active 55031515 Problem Diverticulitis of small intestine without perforation or abscess without bleeding K57.12 Active 91504931 Problem Diabetes type 2, controlled E11.9 Active 80509912 Problem 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 Active 18517137 Problem Gastro-esophageal reflux disease with esophagitis K21.0 Active 941098514 Problem Insomnia, unspecified G47.00 Active 909195064 Problem Diabetes type 2, uncontrolled E11.65 Active 850153963 Problem Type 2 diabetes mellitus with hyperglycemia E11.65 Active 135220511 Problem Generalized anxiety disorder F41.1 Active 94994823 Problem Polyneuropathy G62.9 Active 39198048 Problem Hypertension I10 Active 40945995 Problem 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 Active 260035422 ALLERGIES No Information SOCIAL HISTORY Never Assessed PLAN OF CARE VITAL SIGNS MEDICATIONS Medication Instructions Dosage Frequency Start Date End Date Duration Status Bydureon 2 MG ICD10- E11.65 once weekly inject 2 mg Nov, Active RESULTS No Results PROCEDURES No Known procedures IMMUNIZATIONS No Known Immunizations MEDICAL (GENERAL) HISTORY Type Description Date Medical History Throat pain Medical History Unspecified follow-up examination Medical History irritable bowel syndrome Medical History obesity Medical History type II diabetes Medical History headache Medical History depression Medical History hypogonadism Medical History pneumonia Surgical History cholecystectomy 2014 Surgical History testicular surgery at age 1 Hospitalization History [facility] for diabetes 09/2011 Hospitalization History [facility] diabetic issues 09/2015 Hospitalization History [facility] Pneumonia 01/2016 Hospitalization History celluitis of the left upper thigh-[facility] 04/2017
--- OUTSIDE RECORDS SUMMARY | 2017-07-13 21:53 | XMS REPORT ---
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 Active 136898261 Problem Diabetic polyneuropathy associated with type 2 diabetes mellitus E11.42 Active 76058828 Problem Controlled type 2 diabetes mellitus without complication, without long -term current use of insulin E11.9 Active 993293692 Problem Encounter for dental examination Z01.20 Active 514081725 Problem Other male erectile dysfunction N52.8 Active 062303629 Problem Anxiety F41.9 Active 79329679 Problem Type 2 diabetes mellitus with hyperglycemia E11.65 Active 291702710 Problem GERD without esophagitis K21.9 Active 626839719 Problem Diverticulitis of small intestine without perforation or abscess without bleeding K57.12 Active 01524360 Problem 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.4 Active 034376747 Problem Insomnia, unspecified G47.00 Active 558441478 Problem Diabetes type 2, controlled E11.9 Active 47914516 Problem Obesity, unspecified E66.9 Active 063419244 Problem Gastro-esophageal reflux disease with esophagitis K21.0 Active 902512888 Problem Diabetes type 2, uncontrolled E11.65 Active 436096161 Problem Hypertension I10 Active 01771973 Problem 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 Active 42632087 Problem Type 2 diabetes mellitus with hyperglycemia E11.65 Active 270052081 Problem Generalized anxiety disorder F41.1 Active 74339739 Problem Polyneuropathy G62.9 Active 82527398 ALLERGIES Substance Reaction Event Type Date Status Zoloft hives adverse reaction Drug Allergy Sep, Active Wellbutrin "out of it" Drug Allergy Sep, Active Clindamycin HCl itching Drug Allergy Sep, Active BuSpar local swelling Drug Allergy Sep, Active SOCIAL HISTORY No smoking Hx information available PLAN OF CARE Activity Details Follow Up 2 Weeks Reason: VITAL SIGNS Height 70 in 2016-10-12 Weight 320.2 lbs 2016-10-12 Temperature 98.0 degrees Fahrenheit 2016-10-12 Heart Rate 88 bpm 2016-10-12 Respiratory Rate 20 2016-10-12 BMI 45.94 kg/m2 2016-10-12 Blood pressure systolic 118 mmHg 2016-10-12 Blood pressure diastolic 78 mmHg 2016-10-12 MEDICATIONS Medication Instructions Dosage Frequency Start Date End Date Duration Status Prozac 20 mg Orally Once a day 1 capsule 24h Oct, Active Insulin Aspart 100 UNIT/ML Subcutaneous TID w/ meals 50 units 20 Active Xanax 0.25 MG Orally Once in the morning and at bedtime for anxiety 1 tablet Active [place] 5-325 MG Orally every 6 hrs 1 tablet as needed 6h May, Active Metronidazole 500 MG Orally Twice a day 1 tablet 12h Sep, Sep, 07 days Active Insulin Detemir 100 UNIT/ML Subcutaneous 2 times per day 80 units Active Levemir FlexTouch 100 UNIT/ML INJECT 80 UNITS SUBCUTANEOUSLY TWICE DAILY 28 Active Ciprofloxacin HCl 500 MG Orally Twice a day 1 tablet 12h Sep, Sep, 07 days Active Sucralfate 1 GM Orally Twice a day 1 tablet on an empty stomach 12h Active Baclofen 20 MG Orally Three times a day 1 tablet with food or milk 8h Sep, Nov, 30 day(s) Active Adderall 10 mg Orally Once a day 1 tablet in the morning 24h Sep, 28 days Active MetFORMIN HCl ER (MOD) 500 MG Orally 2 times a day 2 tablets 12h Active Lisinopril 20 MG Orally Once a day 1 tablet 24h 30 days Active Omeprazole 20 MG Orally Once a day 2 capsules 24h Aug, 30 day(s ) Active Ibuprofen 800 MG Orally Three times a day 1 tablet 8h 34 Active Test strips Test Strips ONETOUCH VERIO TEST STRIP E11.19 3 times a day test blood sugar 8h Nov, daily Active RESULTS Name Result Date Reference Range UA LONG DIP (IN HOUSE) 2016-10-12 Lot # [id number] Exp date 2017 Clarity clear Color yellow Odor yes GLU 2+ MURILE negative KET negative SG 1.015 BLO negative pH 5.5 Protein negative URO 0.2 NIT negative ASHU negative Lot # [id number] Exp date 2017 10 Xray : Abdomen 1v (Upright) - IN HOUSE 2016-10-12 PROCEDURES Procedure Date Ordered Related Diagnosis Body Site URINALYSIS, AUTO, W/O SCOPE Oct 12, 2016 X-RAY EXAM OF ABDOMEN Oct 12, 2016 Office Visit, Est Pt., Level 3 Oct 12, 2016 [facility] VISIT ESTABLISHED PATIENT Oct 12, 2016 IMMUNIZATIONS No Known Immunizations
[2017-07-13] MEDS ORDERED: inSUlin (REGULAR) HUMAN 1 UNIT/0.01 ML (CHARGE PER UNIT) IV STA ×2 (21:54→22:54)
--- OUTSIDE RECORDS SUMMARY | 2017-07-13 21:54 | XMS REPORT ---
Author Author NERISSA MARTINEZ [facility] Address [address] [place] [address] Care Team Providers Care Control Clerk Food And Beverage Name Role Phone NERISSA MARTINEZ Unavailable PROBLEMS Type Condition ICD9-CM Code [id number] Code Onset Dates Condition Status SNOMED Code Problem Controlled type 2 diabetes mellitus without complication, without long -term current use of insulin E11.9 Active 936167118 Problem GERD without esophagitis K21.9 Active 915870493 Problem Diabetic polyneuropathy associated with type 2 diabetes mellitus E11.42 Active 56969308 Problem Hypertriglyceridemia E78.1 Active 813948627 Problem Obesity, unspecified E66.9 Active 346776873 Problem Encounter for dental examination Z01.20 Active 814662297 Problem Other male erectile dysfunction N52.8 Active 184977528 Problem 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.4 Active 687722918 Problem Type 2 diabetes mellitus with hyperglycemia E11.65 Active 486989757 Problem Anxiety F41.9 Active 86108089 Problem Diverticulitis of small intestine without perforation or abscess without bleeding K57.12 Active 98211809 Problem Diabetes type 2, controlled E11.9 Active 69762484 Problem 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 Active 44689380 Problem Gastro-esophageal reflux disease with esophagitis K21.0 Active 956049443 Problem Insomnia, unspecified G47.00 Active 573015621 Problem Diabetes type 2, uncontrolled E11.65 Active 316911011 Problem Type 2 diabetes mellitus with hyperglycemia E11.65 Active 941638630 Problem Generalized anxiety disorder F41.1 Active 96056300 Problem Polyneuropathy G62.9 Active 22744009 Problem Hypertension I10 Active 04998903 Problem 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 Active 060782553 ALLERGIES No Information SOCIAL HISTORY Never Assessed PLAN OF CARE VITAL SIGNS MEDICATIONS Unknown Medications RESULTS Name Result Date Reference Range CBC 2016-11-02 WBC 6.2 3.4-10.8 RBC 5.04 4.14-5.80 Hemoglobin 14.9 12.6-17.7 Hematocrit 43.6 37.5-51.0 MCV 87 79-97 MCH 29.6 26.6-33.0 MCHC 34.2 31.5-35.7 RDW 13.6 12.3-15.4 Platelets 214 150-379 Neutrophils 43 Lymphs 43 Monocytes 8 Eos 5 Basos 1 Immature Cells Neutrophils (Absolute) 2.7 1.4-7.0 Lymphs (Absolute) 2.7 0.7-3.1 Monocytes(Absolute) 0.5 0.1-0.9 Eos (Absolute) 0.3 0.0-0.4 Baso (Absolute) 0.1 0.0-0.2 Immature Granulocytes Immature Grans (Abs) Hematology Comments: Note: LIPID PANEL 2016-11-02 Cholesterol, Total 170 100-199 Triglycerides 264 0-149 HDL Cholesterol 37 >39 VLDL Cholesterol Ervin 53 5-40 LDL Cholesterol Calc 80 0-99 CMP 2016-11-02 Glucose, Serum 180 65-99 BUN 15 6-20 Creatinine, Serum 0.75 0.76-1.27 eGFR If NonAfricn Am 116 >59 eGFR If Africn Am 135 >59 BUN/Creatinine Ratio 20 8-19 Sodium, Serum 140 134-144 Potassium, Serum 4.8 3.5-5.2 Chloride, Serum 103 96-106 Carbon Dioxide, Total 20 18-29 Calcium, Serum 9.1 8.7-10.2 Protein, Total, Serum 6.3 6.0-8.5 Albumin, Serum 4.1 3.5-5.5 Globulin, Total 2.2 1.5-4.5 A/G Ratio 1.9 1.1-2.5 Bilirubin, Total 0.3 0.0-1.2 Alkaline Phosphatase, S 66 39-117 AST (SGOT) 37 0-40 ALT (SGPT) 53 0-44 PROCEDURES Procedure Date Ordered Result Body Site [facility] Nov 02, 2016 VENIPUNCT, ROUTINE* Nov 02, 2016 IMMUNIZATIONS No Known Immunizations MEDICAL (GENERAL) HISTORY Type Description Date Medical History Throat pain Medical History Unspecified follow-up examination Medical History irritable bowel syndrome Medical History obesity Medical History type II diabetes Medical History headache Medical History depression Medical History hypogonadism Medical History pneumonia Surgical History cholecystectomy 2014 Surgical History testicular surgery at age 1 Hospitalization History [facility] for diabetes 09/2011 Hospitalization History [facility] diabetic issues 09/2015 Hospitalization History [facility] Pneumonia 01/2016 Hospitalization History [facility] left upper [facility] 04/2017
--- OUTSIDE RECORDS SUMMARY | 2017-07-13 21:54 | XMS REPORT ---
Author Author NERISSA MARTINEZ [facility] Address [address] [place] [address] Care Team Providers Care Cutting And Creasing Press Operator Name Role Phone NERISSA MARTINEZ Unavailable PROBLEMS Type Condition ICD9-CM Code [id number] Code Onset Dates Condition Status SNOMED Code Problem Controlled type 2 diabetes mellitus without complication, without long -term current use of insulin E11.9 Active 626774639 Problem GERD without esophagitis K21.9 Active 486618433 Problem Diabetic polyneuropathy associated with type 2 diabetes mellitus E11.42 Active 62166552 Problem Hypertriglyceridemia E78.1 Active 981484660 Problem Obesity, unspecified E66.9 Active 773160185 Problem Encounter for dental examination Z01.20 Active 076014628 Problem Other male erectile dysfunction N52.8 Active 108280762 Problem 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.4 Active 581428574 Problem Type 2 diabetes mellitus with hyperglycemia E11.65 Active 293971695 Problem Anxiety F41.9 Active 14759705 Problem Diverticulitis of small intestine without perforation or abscess without bleeding K57.12 Active 05232170 Problem Diabetes type 2, controlled E11.9 Active 24173969 Problem 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 Active 62994287 Problem Gastro-esophageal reflux disease with esophagitis K21.0 Active 199971383 Problem Insomnia, unspecified G47.00 Active 750724647 Problem Diabetes type 2, uncontrolled E11.65 Active 402721399 Problem Type 2 diabetes mellitus with hyperglycemia E11.65 Active 239821228 Problem Generalized anxiety disorder F41.1 Active 22348881 Problem Polyneuropathy G62.9 Active 13602073 Problem Hypertension I10 Active 78405669 Problem 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 Active 673912814 ALLERGIES Substance Reaction Event Type Date Status Zoloft hives adverse reaction Drug Allergy Oct, Active Wellbutrin "out of it" Drug Allergy Oct, Active Clindamycin HCl itching Drug Allergy Oct, Active BuSpar local swelling Drug Allergy Oct, Active SOCIAL HISTORY Never Assessed PLAN OF CARE Activity Details Follow Up 4 Weeks Reason:dm2 ooc VITAL SIGNS Height 70 in 2016-10-29 Weight 331.9 lbs 2016-10-29 Temperature 98.7 degrees Fahrenheit 2016-10-29 Heart Rate 86 bpm 2016-10-29 Respiratory Rate 22 2016-10-29 BMI 47.62 kg/m2 2016-10-29 MEDICATIONS Medication Instructions Dosage Frequency Start Date End Date Duration Status Adderall 10 mg Orally Once a day 1 tablet in the morning 24h Sep, 28 days Active MetFORMIN HCl ER (MOD) 500 MG Orally 2 times a day 2 tablets 12h Active Prozac 20 mg Orally Once a day 1 capsule 24h Oct, Active [place] 5-325 MG Orally every 6 hrs 1 tablet as needed 6h Oct, Active Ibuprofen 800 MG Orally Three times a day 1 tablet 8h 34 Active Xanax 0.25 MG Orally Once in the morning and at bedtime for anxiety 1 tablet 28 days Active Levemir FlexTouch 100 UNIT/ML INJECT 80 UNITS SUBCUTANEOUSLY TWICE DAILY 28 Active Sucralfate 1 GM Orally Twice a day 1 tablet on an empty stomach 12h Active Baclofen 20 mg Orally Three times a day 1 tablet with food or milk 8h Sep, Dec, 30 day(s) Active Insulin Detemir 100 UNIT/ML Subcutaneous 2 times per day 85 units Active Lisinopril 20 MG Orally Once a day 1 tablet 24h 30 days Active Test strips Test Strips ONETOUCH VERIO TEST STRIP E11.19 3 times a day test blood sugar 8h Nov, daily Active Neurontin 800 MG Orally Three times a day 1 tablet 8h Oct, 30 day(s) Active RESULTS No Results PROCEDURES Procedure Date Ordered Result Body Site [facility] VISIT ESTABLISHED PATIENT Oct 29, 2016 MICROALBUMIN, SEMIQUANT Oct 29, 2016 GLYCATED HEMOGLOBIN TEST Oct 29, 2016 IMMUNIZATIONS No Known Immunizations MEDICAL (GENERAL) HISTORY Type Description Date Medical History Throat pain Medical History Unspecified follow-up examination Medical History irritable bowel syndrome Medical History obesity Medical History type II diabetes Medical History headache Medical History depression Medical History hypogonadism Medical History pneumonia Surgical History cholecystectomy 2014 Surgical History testicular surgery at age 1 Hospitalization History [facility] for diabetes 09/2011 Hospitalization History [facility] diabetic issues 09/2015 Hospitalization History [facility] Pneumonia 01/2016 Hospitalization History [facility]uitis of the left upper thigh-[facility] 04/2017
--- OUTSIDE RECORDS SUMMARY | 2017-07-13 21:54 | XMS REPORT ---
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 Active 760222186 Problem Diabetic polyneuropathy associated with type 2 diabetes mellitus E11.42 Active 14815696 Problem Controlled type 2 diabetes mellitus without complication, without long -term current use of insulin E11.9 Active 690954439 Problem Encounter for dental examination Z01.20 Active 675340005 Problem Other male erectile dysfunction N52.8 Active 439470887 Problem Anxiety F41.9 Active 22600443 Problem Type 2 diabetes mellitus with hyperglycemia E11.65 Active 280890849 Problem GERD without esophagitis K21.9 Active 281792374 Problem Diverticulitis of small intestine without perforation or abscess without bleeding K57.12 Active 85207482 Problem USP 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.4 Active 695162859 Problem Insomnia, unspecified G47.00 Active 575710396 Problem Diabetes type 2, controlled E11.9 Active 04232906 Problem Obesity, unspecified E66.9 Active 945036309 Problem Gastro-esophageal reflux disease with esophagitis K21.0 Active 231608439 Problem Diabetes type 2, uncontrolled E11.65 Active 336851015 Problem Hypertension I10 Active 11609660 Problem 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
--- OUTSIDE RECORDS SUMMARY | 2017-07-13 21:55 | XMS REPORT ---
Author Author NERISSA MARTINEZ [facility] Address [address] [place] [address] Care Team Providers Care Event Set Up Specialist Name Role Phone NERISSA MARTINEZ Unavailable PROBLEMS Type Condition ICD9-CM Code [id number] Code Onset Dates Condition Status SNOMED Code Problem Controlled type 2 diabetes mellitus without complication, without long -term current use of insulin E11.9 Active 039775632 Problem GERD without esophagitis K21.9 Active 598415446 Problem Diabetic polyneuropathy associated with type 2 diabetes mellitus E11.42 Active 85669320 Problem Hypertriglyceridemia E78.1 Active 753082436 Problem Obesity, unspecified E66.9 Active 329539570 Problem Encounter for dental examination Z01.20 Active 919289325 Problem Other male erectile dysfunction N52.8 Active 037045873 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.4 Active 646187202 Problem Type 2 diabetes mellitus with hyperglycemia E11.65 Active 028630624 Problem Anxiety F41.9 Active 73196699 Problem Diverticulitis of small intestine without perforation or abscess without bleeding K57.12 Active 45073140 Problem Diabetes type 2, controlled E11.9 Active 88628607 Problem 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 Active 83652635 Problem Gastro-esophageal reflux disease with esophagitis K21.0 Active 272210014 Problem Insomnia, unspecified G47.00 Active 516310303 Problem Diabetes type 2, uncontrolled E11.65 Active 038467635 Problem Type 2 diabetes mellitus with hyperglycemia E11.65 Active 113819352 Problem Generalized anxiety disorder F41.1 Active 69815398 Problem Polyneuropathy G62.9 Active 97132005 Problem Hypertension I10 Active 45984082 Problem 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
--- OUTSIDE RECORDS SUMMARY | 2017-07-13 21:55 | XMS REPORT ---
Author Author NERISSA MARTINEZ [facility] Address [address] [place] [address] Care Team Providers Care Utility Worker Production Name Role Phone NERISSA MARTINEZ Unavailable PROBLEMS Type Condition ICD9-CM Code [id number] Code Onset Dates Condition Status SNOMED Code Problem Controlled type 2 diabetes mellitus without complication, without long -term current use of insulin E11.9 Active 731765590 Problem GERD without esophagitis K21.9 Active 684274704 Problem Diabetic polyneuropathy associated with type 2 diabetes mellitus E11.42 Active 34274424 Problem Hypertriglyceridemia E78.1 Active 909187346 Problem Obesity, unspecified E66.9 Active 771564447 Problem Encounter for dental examination Z01.20 Active 119683152 Problem Other male erectile dysfunction N52.8 Active 299705360 Problem nursing home 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.4 Active 697470846 Problem Type 2 diabetes mellitus with hyperglycemia E11.65 Active 647809963 Problem Anxiety F41.9 Active 86355009 Problem Diverticulitis of small intestine without perforation or abscess without bleeding K57.12 Active 96094650 Problem Diabetes type 2, controlled E11.9 Active 50506711 Problem 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 Active 40649495 Problem Gastro-esophageal reflux disease with esophagitis K21.0 Active 450252250 Problem Insomnia, unspecified G47.00 Active 979833389 Problem Diabetes type 2, uncontrolled E11.65 Active 846377395 Problem Type 2 diabetes mellitus with hyperglycemia E11.65 Active 192714079 Problem Generalized anxiety disorder F41.1 Active 30320342 Problem Polyneuropathy G62.9 Active 75667554 Problem Hypertension I10 Active 90450924 Problem 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
[2017-07-13] MEDS ORDERED: TEST1PAT7 (21:56)
--- OUTSIDE RECORDS SUMMARY | 2017-07-13 21:56 | XMS REPORT ---
Author Author ZAYRA MESA [facility] Address [address] [place] [address] Care Team Providers Care Beading Installer Name Role Phone ZAYRA MESA Unavailable PROBLEMS Type Condition ICD9-CM Code [id number] Code Onset Dates Condition Status SNOMED Code Problem Controlled type 2 diabetes mellitus without complication, without long -term current use of insulin E11.9 Active 664206260 Problem GERD without esophagitis K21.9 Active 748651398 Problem Diabetic polyneuropathy associated with type 2 diabetes mellitus E11.42 Active 51926647 Problem Hypertriglyceridemia E78.1 Active 461582446 Problem Obesity, unspecified E66.9 Active 539096679 Problem Encounter for dental examination Z01.20 Active 468644891 Problem Other male erectile dysfunction N52.8 Active 027389294 Problem 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.4 Active 334562320 Problem Type 2 diabetes mellitus with hyperglycemia E11.65 Active 415520877 Problem Anxiety F41.9 Active 63680871 Problem Diverticulitis of small intestine without perforation or abscess without bleeding K57.12 Active 16009533 Problem Diabetes type 2, controlled E11.9 Active 28558894 Problem 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 Active 23071693 Problem Gastro-esophageal reflux disease with esophagitis K21.0 Active 483250745 Problem Insomnia, unspecified G47.00 Active 682573777 Problem Diabetes type 2, uncontrolled E11.65 Active 348258278 Problem Type 2 diabetes mellitus with hyperglycemia E11.65 Active 643253478 Problem Generalized anxiety disorder F41.1 Active 98109420 Problem Polyneuropathy G62.9 Active 56106678 Problem Hypertension I10 Active 10054102 Problem 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 Active 765597650 ALLERGIES Substance Reaction Event Type Date Status Zoloft hives adverse reaction Drug Allergy Oct, Active Wellbutrin "out of it" Drug Allergy Oct, Active Clindamycin HCl itching Drug Allergy Oct, Active BuSpar local swelling Drug Allergy Oct, Active SOCIAL HISTORY Never Assessed PLAN OF CARE Activity Details Follow Up First AVailable Reason:TE #31 VITAL SIGNS Heart Rate 96 bpm 2016-10-21 Blood pressure systolic 123 mmHg 2016-10-21 Blood pressure diastolic 82 mmHg 2016-10-21 MEDICATIONS Medication Instructions Dosage Frequency Start Date End Date Duration Status Cyclobenzaprine HCl 10 MG Orally 2 times a day 1 tablet 12h 18 Active Xanax 0.25 MG Orally Once in the morning and at bedtime for anxiety 1 tablet Active Prozac 20 mg Orally Once a day 1 capsule 24h Oct, Active Insulin Aspart 100 UNIT/ML Subcutaneous TID w/ meals 50 units Active Sucralfate 1 GM Orally Twice a day 1 tablet on an empty stomach 12h Active Test strips Test Strips ONETOUCH VERIO TEST STRIP E11.19 3 times a day test blood sugar 8h Nov, daily Active Levemir FlexTouch 100 UNIT/ML INJECT 80 UNITS SUBCUTANEOUSLY TWICE DAILY 28 Active [place] 5-325 MG Orally every 6 hrs 1 tablet as needed 6h May, Active Baclofen 20 MG Orally Three times a day 1 tablet with food or milk 8h Sep, Nov, 30 day(s) Active MetFORMIN HCl ER (MOD) 500 MG Orally 2 times a day 2 tablets 12h Active Insulin Detemir 100 UNIT/ML Subcutaneous 2 times per day 85 units Active Lisinopril 20 MG Orally Once a day 1 tablet 24h 30 days Active Adderall 10 mg Orally Once a day 1 tablet in the morning 24h Sep, 28 days Active Ibuprofen 800 MG Orally Three times a day 1 tablet 8h 34 Active RESULTS No Results PROCEDURES Procedure Date Ordered Result Body Site LTD ORAL EVALUATION - PROBLEM FOCUS Oct 21, 2016 INTRAORL-PERIAPICAL 1 FILM 11372 Oct 21, 2016 IMMUNIZATIONS No Known Immunizations MEDICAL (GENERAL) [...] Hospitalization History [facility]uitis of the left upper thigh[facility] 04/2017
--- OUTSIDE RECORDS SUMMARY | 2017-07-13 21:56 | XMS REPORT ---
Author Author MARIANO ZAKI [facility] Address [address] [place] [address] Care Team Providers Care Color Room Attendant Name Role Phone ZAKI QUINTANA Unavailable PROBLEMS Type Condition ICD9-CM Code [id number] Code Onset Dates Condition Status SNOMED Code Problem Controlled type 2 diabetes mellitus without complication, without long -term current use of insulin E11.9 Active 978743119 Problem GERD without esophagitis K21.9 Active 839722756 Problem Diabetic polyneuropathy associated with type 2 diabetes mellitus E11.42 Active 50879407 Problem Hypertriglyceridemia E78.1 Active 848313406 Problem Obesity, unspecified E66.9 Active 525764413 Problem Encounter for dental examination Z01.20 Active 562827460 Problem Other male erectile dysfunction N52.8 Active 065720666 Problem penitentiary 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.4 Active 923766200 Problem Type 2 diabetes mellitus with hyperglycemia E11.65 Active 922016350 Problem Anxiety F41.9 Active 66134103 Problem Diverticulitis of small intestine without perforation or abscess without bleeding K57.12 Active 28757535 Problem Diabetes type 2, controlled E11.9 Active 35423483 Problem 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 Active 95540389 Problem Gastro-esophageal reflux disease with esophagitis K21.0 Active 758299455 Problem Insomnia, unspecified G47.00 Active 800192695 Problem Diabetes type 2, uncontrolled E11.65 Active 467258431 Problem Type 2 diabetes mellitus with hyperglycemia E11.65 Active 035092899 Problem Generalized anxiety disorder F41.1 Active 79587961 Problem Polyneuropathy G62.9 Active 54834481 Problem Hypertension I10 Active 78525892 Problem 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 Active 623819391 ALLERGIES Substance Reaction Event Type Date Status Zoloft hives adverse reaction Drug Allergy Oct, Active Wellbutrin "out of it" Drug Allergy Oct, Active Clindamycin HCl itching Drug Allergy Oct, Active BuSpar local swelling Drug Allergy Oct, Active SOCIAL HISTORY Never Assessed PLAN OF CARE Activity Details Follow Up 4 Months Reason: VITAL SIGNS Height 70 in 2016-11-03 Weight 327.5 lbs 2016-11-03 Heart Rate 85 bpm 2016-11-03 Respiratory Rate 20 2016-11-03 BMI 46.99 kg/m2 2016-11-03 Blood pressure systolic 120 mmHg 2016-11-03 Blood pressure diastolic 80 mmHg 2016-11-03 MEDICATIONS Medication Instructions Dosage Frequency Start Date End Date Duration Status Adderall 10 mg Orally Once a day 1 tablet in the morning 24h Sep, 28 days Active Sucralfate 1 GM Orally Twice a day 1 tablet on an empty stomach 12h Active Lisinopril 20 MG Orally Once a day 1 tablet 24h 30 days Active Prozac 40 MG Orally Once a day 1 capsule 24h Oct, Active Insulin Detemir 100 UNIT/ML Subcutaneous 2 times per day 85 units Active Ibuprofen 800 MG Orally Three times a day 1 tablet 8h 34 Active Xanax 0.5 MG Orally Once in the morning and at bedtime for anxiety 1 tablet 28 days Active Test strips Test Strips ONETOUCH VERIO TEST STRIP E11.19 3 times a day test blood sugar 8h Nov, daily Active Levemir FlexTouch 100 UNIT/ML INJECT 80 UNITS SUBCUTANEOUSLY TWICE DAILY 28 Active Baclofen 20 mg Orally Three times a day 1 tablet with food or milk 8h Sep, Dec, 30 day(s) Active MetFORMIN HCl ER (MOD) 500 MG Orally 2 times a day 2 tablets 12h Active [place] 5-325 MG Orally every 6 hrs 1 tablet as needed 6h Oct, Active Neurontin 800 MG Orally Three times a day 1 tablet 8h Oct, 30 day(s) Active RESULTS No Results PROCEDURES Procedure Date Ordered Result Body Site [facility] VISIT ESTABLISHED PATIENT Nov 03, 2016 IMMUNIZATIONS No Known Immunizations MEDICAL (GENERAL) HISTORY Type Description Date Medical History Throat pain Medical History Unspecified follow-up examination Medical History irritable bowel syndrome Medical History obesity Medical History type II diabetes Medical History headache Medical History depression Medical History hypogonadism Medical History pneumonia Surgical History cholecystectomy 2014 Surgical History testicular surgery at age 1 Hospitalization History Via [facility] for diabetes 09/2011 Hospitalization History [facility] diabetic issues 09/2015 Hospitalization History [facility] Pneumonia 01/2016 Hospitalization History celluitis of the left upper thigh-[facility] 04/2017
--- OUTSIDE RECORDS SUMMARY | 2017-07-13 21:57 | XMS REPORT ---
Author Author NERISSA MARTINEZ [facility] Address [address] [place] [address] Care Team Providers Care Senior Sql Server Dba Name Role Phone NERISSA MARTINEZ Unavailable PROBLEMS Type Condition ICD9-CM Code [id number] Code Onset Dates Condition Status SNOMED Code Problem Controlled type 2 diabetes mellitus without complication, without long -term current use of insulin E11.9 Active 743108319 Problem GERD without esophagitis K21.9 Active 347267972 Problem Diabetic polyneuropathy associated with type 2 diabetes mellitus E11.42 Active 54174583 Problem Hypertriglyceridemia E78.1 Active 958396639 Problem Obesity, unspecified E66.9 Active 133410871 Problem Encounter for dental examination Z01.20 Active 238448300 Problem Other male erectile dysfunction N52.8 Active 000535978 Problem prison 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.4 Active 432873726 Problem Type 2 diabetes mellitus with hyperglycemia E11.65 Active 844027708 Problem Anxiety F41.9 Active 11543393 Problem Diverticulitis of small intestine without perforation or abscess without bleeding K57.12 Active 94458199 Problem Diabetes type 2, controlled E11.9 Active 39776626 Problem 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 Active 46590788 Problem Gastro-esophageal reflux disease with esophagitis K21.0 Active 467842836 Problem Insomnia, unspecified G47.00 Active 737641729 Problem Diabetes type 2, uncontrolled E11.65 Active 602500949 Problem Type 2 diabetes mellitus with hyperglycemia E11.65 Active 373137816 Problem Generalized anxiety disorder F41.1 Active 97838890 Problem Polyneuropathy G62.9 Active 31078275 Problem Hypertension I10 Active 71019758 Problem 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
--- OUTSIDE RECORDS SUMMARY | 2017-07-13 21:57 | XMS REPORT ---
Author Author NERISSA MARTINEZ [facility] Address [address] [place] [address] Care Team Providers Care Home Health Attendant Name Role Phone NERISSA MARTINEZ Unavailable PROBLEMS Type Condition ICD9-CM Code [id number] Code Onset Dates Condition Status SNOMED Code Problem Controlled type 2 diabetes mellitus without complication, without long -term current use of insulin E11.9 Active 080004746 Problem GERD without esophagitis K21.9 Active 890718607 Problem Diabetic polyneuropathy associated with type 2 diabetes mellitus E11.42 Active 19688077 Problem Hypertriglyceridemia E78.1 Active 690552331 Problem Obesity, unspecified E66.9 Active 796807113 Problem Encounter for dental examination Z01.20 Active 235538403 Problem Other male erectile dysfunction N52.8 Active 190897146 Problem alf 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.4 Active 415504385 Problem Type 2 diabetes mellitus with hyperglycemia E11.65 Active 221282876 Problem Anxiety F41.9 Active 22331620 Problem Diverticulitis of small intestine without perforation or abscess without bleeding K57.12 Active 50699912 Problem Diabetes type 2, controlled E11.9 Active 63648226 Problem 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 Active 02266833 Problem Gastro-esophageal reflux disease with esophagitis K21.0 Active 351332167 Problem Insomnia, unspecified G47.00 Active 468121555 Problem Diabetes type 2, uncontrolled E11.65 Active 156955849 Problem Type 2 diabetes mellitus with hyperglycemia E11.65 Active 754890000 Problem Generalized anxiety disorder F41.1 Active 60416727 Problem Polyneuropathy G62.9 Active 70823846 Problem Hypertension I10 Active 71248682 Problem 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
--- OUTSIDE RECORDS SUMMARY | 2017-07-13 21:57 | XMS REPORT ---
Author Author MARIANO ZAKI Organization [facility] Address [address] [place] [address] Care Team Providers Care Entry Level Chemist Name Role Phone JORDAN QUINTANAA Unavailable PROBLEMS Type Condition ICD9-CM Code [id number] Code Onset Dates Condition Status SNOMED Code Problem Controlled type 2 diabetes mellitus without complication, without long -term current use of insulin E11.9 Active 682686545 Problem GERD without esophagitis K21.9 Active 010077258 Problem Diabetic polyneuropathy associated with type 2 diabetes mellitus E11.42 Active 02082297 Problem Hypertriglyceridemia E78.1 Active 474845835 Problem Obesity, unspecified E66.9 Active 334805944 Problem Encounter for dental examination Z01.20 Active 918518367 Problem Other male erectile dysfunction N52.8 Active 201871710 Problem 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.4 Active 830338308 Problem Type 2 diabetes mellitus with hyperglycemia E11.65 Active 394882740 Problem Anxiety F41.9 Active 87668915 Problem Diverticulitis of small intestine without perforation or abscess without bleeding K57.12 Active 80536809 Problem Diabetes type 2, controlled E11.9 Active 66755988 Problem 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 Active 76311994 Problem Gastro-esophageal reflux disease with esophagitis K21.0 Active 676689993 Problem Insomnia, unspecified G47.00 Active 567963453 Problem Diabetes type 2, uncontrolled E11.65 Active 839941481 Problem Type 2 diabetes mellitus with hyperglycemia E11.65 Active 205369957 Problem Generalized anxiety disorder F41.1 Active 44256840 Problem Polyneuropathy G62.9 Active 85990270 Problem Hypertension I10 Active 05942522 Problem 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
--- OUTSIDE RECORDS SUMMARY | 2017-07-13 21:58 | XMS REPORT ---
Author Author NERISSA MARTINEZ [facility] Address [address] [place] [address] Care Team Providers Care Health Program Specialist Name Role Phone NERISSA MARTINEZ Unavailable PROBLEMS Type Condition ICD9-CM Code [id number]-[id number] Code Onset Dates Condition Status SNOMED Code Problem Controlled type 2 diabetes mellitus without complication, without long -term current use of insulin E11.9 Active 174815763 Problem GERD without esophagitis K21.9 Active 037597198 Problem Diabetic polyneuropathy associated with type 2 diabetes mellitus E11.42 Active 76261158 Problem Hypertriglyceridemia E78.1 Active 176848900 Problem Obesity, unspecified E66.9 Active 612022849 Problem Encounter for dental examination Z01.20 Active 060972325 Problem Other male erectile dysfunction N52.8 Active 790191482 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.4 Active 557057507 Problem Type 2 diabetes mellitus with hyperglycemia E11.65 Active 982920983 Problem Anxiety F41.9 Active 88638857 Problem Diverticulitis of small intestine without perforation or abscess without bleeding K57.12 Active 75927646 Problem Diabetes type 2, controlled E11.9 Active 61781749 Problem 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 Active 65632825 Problem Gastro-esophageal reflux disease with esophagitis K21.0 Active 818035043 Problem Insomnia, unspecified G47.00 Active 439165913 Problem Diabetes type 2, uncontrolled E11.65 Active 389641061 Problem Type 2 diabetes mellitus with hyperglycemia E11.65 Active 605429434 Problem Generalized anxiety disorder F41.1 Active 41945818 Problem Polyneuropathy G62.9 Active 89431620 Problem Hypertension I10 Active 60055634 Problem 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
--- OUTSIDE RECORDS SUMMARY | 2017-07-13 21:59 | XMS REPORT ---
Author Author NERISSA MARTINEZ [facility] Address [address] [place] [address] Care Team Providers Care Supervisor Assembly Room Name Role Phone NERISSA MARTINEZ Unavailable PROBLEMS Type Condition ICD9-CM Code [id number] Code Onset Dates Condition Status SNOMED Code Problem Controlled type 2 diabetes mellitus without complication, without long -term current use of insulin E11.9 Active 501024902 Problem GERD without esophagitis K21.9 Active 921019611 Problem Diabetic polyneuropathy associated with type 2 diabetes mellitus E11.42 Active 66038954 Problem Hypertriglyceridemia E78.1 Active 267586360 Problem Obesity, unspecified E66.9 Active 185587116 Problem Encounter for dental examination Z01.20 Active 111092669 Problem Other male erectile dysfunction N52.8 Active 012261059 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.4 Active 032783884 Problem Type 2 diabetes mellitus with hyperglycemia E11.65 Active 934810010 Problem Anxiety F41.9 Active 43929826 Problem Diverticulitis of small intestine without perforation or abscess without bleeding K57.12 Active 72802258 Problem Diabetes type 2, controlled E11.9 Active 64409538 Problem 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 Active 42600193 Problem Gastro-esophageal reflux disease with esophagitis K21.0 Active 571327891 Problem Insomnia, unspecified G47.00 Active 822829684 Problem Diabetes type 2, uncontrolled E11.65 Active 345929795 Problem Type 2 diabetes mellitus with hyperglycemia E11.65 Active 775000012 Problem Generalized anxiety disorder F41.1 Active 30218242 Problem Polyneuropathy G62.9 Active 78397869 Problem Hypertension I10 Active 21981740 Problem 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 Active 494970276 ALLERGIES Substance Reaction Event Type Date Status Zoloft hives adverse reaction Drug Allergy Nov, Active Wellbutrin "out of it" Drug Allergy Nov, Active Clindamycin HCl itching Drug Allergy Nov, Active BuSpar local swelling Drug Allergy Nov, Active SOCIAL HISTORY Never Assessed PLAN OF CARE VITAL SIGNS Height 70 in 2016-11-26 Weight 329.4 lbs 2016-11-26 Temperature 98.1 degrees Fahrenheit 2016-11-26 Heart Rate 104 bpm 2016-11-26 Respiratory Rate 20 2016-11-26 BMI 47.26 kg/m2 2016-11-26 Blood pressure systolic 140 mmHg 2016-11-26 Blood pressure diastolic 91 mmHg 2016-11-26 MEDICATIONS Medication Instructions Dosage Frequency Start Date End Date Duration Status Paracarmenza Barajase DSC 500 mg Orally 2 times a day 1 tablet 12h Nov, Dec, 30 day(s) Active Test strips Test Strips ONETOUCH VERIO TEST STRIP E11.19 3 times a day test blood sugar 8h Nov, daily Active Hydrochlorothiazide 25 MG Orally Once a day 1 tablet in the morning 24h Nov, Active Xanax 0.5 MG Orally Once in the morning and at bedtime for anxiety 1 tablet 28 days Active Sucralfate 1 GM Orally Twice a day 1 tablet on an empty stomach 12h Active Ider 5-325 MG Orally every 6 hrs 1 tablet as needed 6h Oct, Active Insulin Detemir 100 UNIT/ML Subcutaneous 2 times per day 85 units Active Levemir FlexTouch 100 UNIT/ML INJECT 80 UNITS SUBCUTANEOUSLY TWICE DAILY 28 Active Lisinopril 20 MG Orally Once a day 1 tablet 24h 30 days Active MetFORMIN HCl ER (MOD) 500 MG Orally 2 times a day 2 tablets 12h Active Neurontin 800 MG Orally Three times a day 1 tablet 8h Oct, 30 day(s) Active Prozac 40 MG Orally Once a day 1 capsule 24h Oct, Active Ibuprofen 800 MG Orally Three times a day 1 tablet 8h 34 Active Adderall 10 mg Orally Once a day 1 tablet in the morning 24h Nov, 28 days Active RESULTS No Results PROCEDURES Procedure Date Ordered Result Body Site [facility] VISIT ESTABLISHED PATIENT November 26, 2016 IMMUNIZATIONS No Known Immunizations MEDICAL (GENERAL) HISTORY Type Description Date Medical History Throat pain Medical History Unspecified follow-up examination Medical History irritable bowel syndrome Medical History obesity Medical History type II diabetes Medical History headache Medical History depression Medical History hypogonadism Medical History pneumonia Surgical History cholecystectomy 2014 Surgical History testicular surgery at age 1 Hospitalization History [facility] for diabetes 09/2011 Hospitalization History [facility] diabetic issues 09/2015 Hospitalization History [facility] Pneumonia 01/2016 Hospitalization History celluitis of the left upper thigh-[facility] 04/2017
[2017-07-13] MEDS ORDERED: NS IV 1000 ML 1,000 ML IV SCH (22:00)
--- OUTSIDE RECORDS SUMMARY | 2017-07-13 22:00 | XMS REPORT ---
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 Active 732694273 Problem Diabetic polyneuropathy associated with type 2 diabetes mellitus E11.42 Active 91446805 Problem Controlled type 2 diabetes mellitus without complication, without long -term current use of insulin E11.9 Active 113720059 Problem Encounter for dental examination Z01.20 Active 808734180 Problem Other male erectile dysfunction N52.8 Active 171604033 Problem Anxiety F41.9 Active 82781443 Problem Type 2 diabetes mellitus with hyperglycemia E11.65 Active 576631389 Problem GERD without esophagitis K21.9 Active 169505324 Problem Diverticulitis of small intestine without perforation or abscess without bleeding K57.12 Active 61554356 Problem care home 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.4 Active 598316304 Problem Insomnia, unspecified G47.00 Active 345687033 Problem Diabetes type 2, controlled E11.9 Active 89578812 Problem Obesity, unspecified E66.9 Active 106081720 Problem Gastro-esophageal reflux disease with esophagitis K21.0 Active 375053212 Problem Diabetes type 2, uncontrolled E11.65 Active 356094741 Problem Hypertension I10 Active 95358692 Problem 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
--- OUTSIDE RECORDS SUMMARY | 2017-07-13 22:01 | XMS REPORT ---
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 Active 029516545 Problem Diabetic polyneuropathy associated with type 2 diabetes mellitus E11.42 Active 09622980 Problem Controlled type 2 diabetes mellitus without complication, without long -term current use of insulin E11.9 Active 532303372 Problem Encounter for dental examination Z01.20 Active 910866517 Problem Other male erectile dysfunction N52.8 Active 914283085 Problem Anxiety F41.9 Active 07234471 Problem Type 2 diabetes mellitus with hyperglycemia E11.65 Active 557658962 Problem GERD without esophagitis K21.9 Active 900808409 Problem Diverticulitis of small intestine without perforation or abscess without bleeding K57.12 Active 36516430 Problem [facility] 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.4 Active 964028110 Problem Insomnia, unspecified G47.00 Active 800247171 Problem Diabetes type 2, controlled E11.9 Active 47436881 Problem Obesity, unspecified E66.9 Active 970002693 Problem Gastro-esophageal reflux disease with esophagitis K21.0 Active 005485090 Problem Diabetes type 2, uncontrolled E11.65 Active 939468115 Problem Hypertension I10 Active 12886467 Problem 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 Active 76294965 Problem Type 2 diabetes mellitus with hyperglycemia E11.65 Active 732648572 Problem Generalized anxiety disorder F41.1 Active 26662626 Problem Polyneuropathy G62.9 Active 05613721 ALLERGIES Unknown Allergies SOCIAL HISTORY No smoking Hx information available PLAN OF CARE VITAL SIGNS MEDICATIONS Medication Instructions Dosage Frequency Start Date End Date Duration Status Insulin Detemir 100 UNIT/ML Subcutaneous 2 times per day 85 units Active Insulin Aspart 100 UNIT/ML Subcutaneous TID w/ meals 50 units Active RESULTS No Results PROCEDURES No Known procedures IMMUNIZATIONS No Known Immunizations
--- OUTSIDE RECORDS SUMMARY | 2017-07-13 22:02 | XMS REPORT ---
Author Author KRISSY HALL [facility] Address [address] [place] [address] Care Team Providers Care Associate Veterinarian Name Role Phone RAFAEL KRISSY Unavailable PROBLEMS Type Condition ICD9-CM Code [id number]-RP Code Onset Dates Condition Status SNOMED Code Problem Controlled type 2 diabetes mellitus without complication, without long -term current use of insulin E11.9 Active 454166018 Problem GERD without esophagitis K21.9 Active 182018585 Problem Diabetic polyneuropathy associated with type 2 diabetes mellitus E11.42 Active 39716992 Problem Hypertriglyceridemia E78.1 Active 713631589 Problem Obesity, unspecified E66.9 Active 155156675 Problem Encounter for dental examination Z01.20 Active 006760152 Problem Other male erectile dysfunction N52.8 Active 772167326 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.4 Active 231578469 Problem Type 2 diabetes mellitus with hyperglycemia E11.65 Active 397749283 Problem Anxiety F41.9 Active 64869863 Problem Diverticulitis of small intestine without perforation or abscess without bleeding K57.12 Active 61078232 Problem Diabetes type 2, controlled E11.9 Active 70280667 Problem 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 Active 87153635 Problem Gastro-esophageal reflux disease with esophagitis K21.0 Active 578124160 Problem Insomnia, unspecified G47.00 Active 564646332 Problem Diabetes type 2, uncontrolled E11.65 Active 747610273 Problem Type 2 diabetes mellitus with hyperglycemia E11.65 Active 736753665 Problem Generalized anxiety disorder F41.1 Active 28208282 Problem Polyneuropathy G62.9 Active 52049342 Problem Hypertension I10 Active 08905879 Problem 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 Active 336495295 ALLERGIES No Information SOCIAL HISTORY Never Assessed PLAN OF CARE VITAL SIGNS Height 70 in 2016-03-25 Temperature 98.0 degrees Fahrenheit 2016-03-25 Heart Rate 60 bpm 2016-03-25 Respiratory Rate 22 2016-03-25 Blood pressure systolic 130 mmHg 2016-03-25 Blood pressure diastolic 88 mmHg 2016-03-25 MEDICATIONS Unknown Medications RESULTS No Results PROCEDURES [...] at age 1 Hospitalization History [facility] for diabetes 09/2011 Hospitalization History [facility] diabetic issues 09/2015 Hospitalization History [facility] Pneumonia 01/2016 Hospitalization History celluitis of the left upper thigh-[facility] 04/2017
--- OUTSIDE RECORDS SUMMARY | 2017-07-13 22:03 | XMS REPORT ---
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 Active 357860036 Problem Diabetic polyneuropathy associated with type 2 diabetes mellitus E11.42 Active 67929090 Problem Controlled type 2 diabetes mellitus without complication, without long -term current use of insulin E11.9 Active 010390165 Problem Encounter for dental examination Z01.20 Active 319803779 Problem Other male erectile dysfunction N52.8 Active 706086645 Problem Anxiety F41.9 Active 30720481 Problem Type 2 diabetes mellitus with hyperglycemia E11.65 Active 934736687 Problem GERD without esophagitis K21.9 Active 544759744 Problem Diverticulitis of small intestine without perforation or abscess without bleeding K57.12 Active 96740303 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.4 Active 040095167 Problem Insomnia, unspecified G47.00 Active 207696634 Problem Diabetes type 2, controlled E11.9 Active 09061426 Problem Obesity, unspecified E66.9 Active 476717926 Problem Gastro-esophageal reflux disease with esophagitis K21.0 Active 438623446 Problem Diabetes type 2, uncontrolled E11.65 Active 553204715 Problem Hypertension I10 Active 83437171 Problem 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
--- OUTSIDE RECORDS SUMMARY | 2017-07-13 22:03 | XMS REPORT ---
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 Active 692974164 Problem Diabetic polyneuropathy associated with type 2 diabetes mellitus E11.42 Active 54238051 Problem Controlled type 2 diabetes mellitus without complication, without long -term current use of insulin E11.9 Active 391721671 Problem Encounter for dental examination Z01.20 Active 463207733 Problem Other male erectile dysfunction N52.8 Active 002865334 Problem Anxiety F41.9 Active 21340295 Problem Type 2 diabetes mellitus with hyperglycemia E11.65 Active 023437499 Problem GERD without esophagitis K21.9 Active 111966585 Problem Diverticulitis of small intestine without perforation or abscess without bleeding K57.12 Active 80355040 Problem [facility] 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.4 Active 404269916 Problem Insomnia, unspecified G47.00 Active 274208823 Problem Diabetes type 2, controlled E11.9 Active 32808902 Problem Obesity, unspecified E66.9 Active 366624078 Problem Gastro-esophageal reflux disease with esophagitis K21.0 Active 444288093 Problem Diabetes type 2, uncontrolled E11.65 Active 599560060 Problem Hypertension I10 Active 98103249 Problem 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 Active 50434470 Problem Type 2 diabetes mellitus with hyperglycemia E11.65 Active 482770805 Problem Generalized anxiety disorder F41.1 Active 86299352 Problem Polyneuropathy G62.9 Active 66962591 ALLERGIES Substance Reaction Event Type Date Status Zoloft hives adverse reaction Drug Allergy Sep, Active Wellbutrin "out of it" Drug Allergy Sep, Active Clindamycin HCl itching Drug Allergy Sep, Active BuSpar local swelling Drug Allergy Sep, Active SOCIAL HISTORY No smoking Hx information available PLAN OF CARE Activity Details Follow Up 4 Weeks Reason: VITAL SIGNS Height 70 in 2016-09-28 Weight 321 lbs 2016-09-28 Temperature 98.2 degrees Fahrenheit 2016-09-28 Heart Rate 92 bpm 2016-09-28 Respiratory Rate 24 2016-09-28 Oximetry on room air:97 % 2016-09-28 BMI 46.05 kg/m2 2016-09-28 Blood pressure systolic 120 mmHg 2016-09-28 Blood pressure diastolic 80 mmHg 2016-09-28 MEDICATIONS Medication Instructions Dosage Frequency Start Date End Date Duration Status Omeprazole 20 MG Orally Once a day 2 capsules 24h Aug, 30 day(s ) Active Xanax 0.25 MG Orally Once in the morning and at bedtime for anxiety 1 tablet Active Diflucan 100 MG Orally once er day 1 tablet Jul, Sep, 14 days Active Prozac 20 mg Orally Once a day 1 capsule 24h Oct, Active Lisinopril 20 MG Orally Once a day 1 tablet 24h 30 days Active Baclofen 20 MG Orally Three times a day 1 tablet with food or milk 8h Sep, Nov, 30 day(s) Active Insulin Aspart 100 UNIT/ML Subcutaneous TID w/ meals 50 units 20 Active Sucralfate 1 GM Orally Twice a day 1 tablet on an empty stomach 12h Active Ibuprofen 800 MG Orally Three times a day 1 tablet 8h 34 Active Test strips Test Strips Accucheck Alem E11.19 3 times a day test blood sugar 8h Nov, Active Insulin Detemir 100 UNIT/ML Subcutaneous 2 times per day 80 units Active [place] 5-325 MG Orally every 6 hrs 1 tablet as needed 6h May, Active Adderall 10 mg Orally Once a day 1 tablet in the morning 24h Jul, Active MetFORMIN HCl ER (MOD) 500 MG Orally 2 times a day 2 tablets 12h Active RESULTS Name Result Date Reference Range GLUCOSE FINGERSTICK (IN HOUSE) 2016-09-28 GLU FINGERSTICK 306 PC >2 hours Lot # [id number] Exp date 05/09/2016 PROCEDURES Procedure Date Ordered Related Diagnosis Body Site MEASURE BLOOD OXYGEN LEVEL Sep 28, 2016 [facility] VISIT ESTABLISHED PATIENT Sep 28, 2016 GLUCOSE BLOOD TEST Sep 28, 2016 Office Visit, Est Pt., Level 3 Sep 28, 2016 IMMUNIZATIONS No Known Immunizations
--- OUTSIDE RECORDS SUMMARY | 2017-07-13 22:03 | XMS REPORT ---
Author Author NERISSA MARTINEZ [facility] Address [address] [place] [address] Care Team Providers Care Forest Aide Name Role Phone NERISSA MARTINEZ Unavailable PROBLEMS Type Condition ICD9-CM Code [id number]-BT Code Onset Dates Condition Status SNOMED Code Problem Controlled type 2 diabetes mellitus without complication, without long -term current use of insulin E11.9 Active 765012171 Problem GERD without esophagitis K21.9 Active 533118906 Problem Diabetic polyneuropathy associated with type 2 diabetes mellitus E11.42 Active 15071446 Problem Hypertriglyceridemia E78.1 Active 817146552 Problem Obesity, unspecified E66.9 Active 434570816 Problem Encounter for dental examination Z01.20 Active 154515021 Problem Other male erectile dysfunction N52.8 Active 603619770 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 Active 503943695 Problem Type 2 diabetes mellitus with hyperglycemia E11.65 Active 077721698 Problem Anxiety F41.9 Active 99532694 Problem Diverticulitis of small intestine without perforation or abscess without bleeding K57.12 Active 75507644 Problem Diabetes type 2, controlled E11.9 Active 03235147 Problem 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 Active 40064554 Problem Gastro-esophageal reflux disease with esophagitis K21.0 Active 501013155 Problem Insomnia, unspecified G47.00 Active 662252536 Problem Diabetes type 2, uncontrolled E11.65 Active 520000717 Problem Type 2 diabetes mellitus with hyperglycemia E11.65 Active 072034153 Problem Generalized anxiety disorder F41.1 Active 21536828 Problem Polyneuropathy G62.9 Active 87597014 Problem Hypertension I10 Active 86569985 Problem 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
[2017-07-13 22:17] LABS: BILIRUBIN,URINE NEGATIVE (NEGATIVE); KETONES,URINE 3+ (NEGATIVE); LEUKOCYTE ESTERASE ,URINE 1+ (NEGATIVE); NITRITE,URINE NEGATIVE (NEGATIVE); PH,URINE 5 (5-9); PROTEIN,URINE NEGATIVE (NEGATIVE); UROBILINOGEN,URINE NORMAL (NORMAL)
--- NOTE | 2017-07-13 22:19 | ED General ---
General Chief Complaint: General Problems/Pain Stated Complaint: GENERAL MUSCLE PAIN Nursing Triage Note: generalized weakness, increased urination Nursing Sepsis Screen: No Definite Risk Source of Information: Patient Exam Limitations: No Limitations History of Present Illness Time Seen by Provider: 21:47 Initial Comments Here with complaint of increased thirst and urination as well as body aches. States that he feels like his diabetes is out of whack. He has not checked his blood sugar tonight. Did miss a dose of insulin today. Denies fever. Denies dysuria but does have increased urination. Timing/Duration: 12-24 Hours Severity: Moderate Associated Systoms: No Fever/Chills, No Nausea/Vomiting, No Shortness of Air, No Weakness Allergies and Home Medications Allergies Coded Allergies: sertraline (Verified Allergy, Severe, RASH, SWELLING, 01/20/16) "FELT LOOPY" bupropion (Verified Allergy, Unknown, "CAUSED ME TO BANG MY HEAD ON THE WALL", 01/20/16) buspirone (Verified Allergy, Unknown, THROAT SWELLED, 01/20/16) cephalexin (Verified Allergy, Unknown, HIVES, 01/20/16) codeine (Verified Allergy, Unknown, 01/20/16) Home Medications Alprazolam 0.5 Mg Tablet, 0.5 MG PO DAILY, (Reported) LAST FILLED 03/29/17 #90 Alprazolam 0.5 Mg Tablet, 1 MG PO HS, (Reported) TAKES 2 (0.5 MG) TABLETS / LAST FILLED 03/29/17 #90 Baclofen 20 Mg Tablet, 20 MG PO TID, (Reported) Cinnamon Bark 500 Mg Capsule, 1,000 MG PO DAILY, (Reported) TAKES 2 (500MG) CAPSULES Dextroamphetamine/Amphetamine 10 Mg Tablet, 10 MG PO DAILY, (Reported) Fluoxetine HCl 20 Mg Capsule, 20 MG PO DAILY, (Reported) TAKES IN ADDITION TO FLUOXETINE 40 MG DAILY FOR A TOTAL DOSE OF 60 MG Fluoxetine HCl 40 Mg Capsule, 40 MG PO DAILY, (Reported) TAKES IN ADDITION TO FLUOXETINE 20 MG DAILY FOR A TOTAL DOSE OF 60 MG Gabapentin 800 Mg Tablet, 800 MG PO TID, (Reported) Hydrocodone/Acetaminophen 1 Each Tablet, 1 TAB PO Q6H PRN for PAIN-MODERATE, ( Reported) Ibuprofen 800 Mg Tablet, 800 MG PO TID PRN for PAIN, (Reported) Insulin Aspart 300 Units/3 Ml Solution, 60 UNITS SQ AC PRN for BLOOD SUGAR, ( Reported) Insulin Detemir 100 Unit/1 Ml Insuln.pen, 80 UNITS SQ BID, (Reported) Lisinopril 20 Mg Tablet, 20 MG PO DAILY, (Reported) Metformin HCl 500 Mg Tab.er.24h, 1,000 MG PO BID, (Reported) TAKES 2 (500 MG) TABLETS Multivitamin 1 Each Tablet, 1 TAB PO DAILY, (Reported) [place]-3/Dha/Epa/Fish Oil 1 Each Capsule, 1,000 MG PO BID, (Reported) Omeprazole 40 Mg Capsule.dr, 40 MG PO DAILY, (Reported) Testosterone 1 Each Patch.td24, (Reported) Constitutional: see HPI, No chills, No fever EENTM: No nose congestion, No throat pain Respiratory: No short of breath, No wheezing Cardiovascular: No chest pain, No palpitations Gastrointestinal: No abdominal pain, No nausea, No vomiting Genitourinary: No dysuria, No pain Musculoskeletal: muscle pain, No muscle stiffness Skin: no symptoms reported Psychiatric/Neurological: No Symptoms Reported All Other Systems Reviewed Negative Unless Noted: Yes Past Koajlky-Peulae-Hzxqwm Hx Patient Social History Alcohol Use: Denies Use Recreational Drug Use: No Drug of Choice: CANNIBUS 2nd Hand Smoke Exposure: No Recent Foreign Travel: No Contact w/Someone Who Travel: No Recent Infectious Disease Expo: No Recent Hopitalizations: No Immunizations Up To Date Tetanus Booster (TDap): More than 5yrs PED Vaccines UTD: No Seasonal Allergies Seasonal Allergies: No Surgeries History of Surgeries: Yes (HYPOGONADISM , ) Surgeries: Gallbladder, Testicular Respiratory History of Respiratory Disorde: Yes Respiratory Disorders: Asthma, Chronic Bronchitis Currently Using CPAP: No Currently Using BIPAP: No Cardiovascular History of Cardiac Disorders: Yes Cardiac Disorders: Hypertension, Palpitations Neurological History of Neurological Disord: Yes Neurological Disorders: Neuropathy Reproductive System Hx Reproductive Disorders: Yes (HYPOGONADISM) Sexually Transmitted Disease: No HIV/AIDS: No Genitourinary History of Genitourinary Disor: No Gastrointestinal History of Gastrointestinal Di: Yes Gastrointestinal Disorders: Gastroesophageal Reflux Musculoskeletal History of Musculoskeletal Dis: No Endocrine History of Endocrine Disorders: Yes (MORBID OBESITY) Endocrine Disorders: Diabetes, Insulin dep HEENT History of HEENT Disorders: No Loss of Vision: Denies Hearing Impairment: Denies Cancer History of Cancer: No Psychosocial History of Psychiatric Problem: Yes Behavioral Health Disorders: ADD/ADHD, Anxiety, Depression Integumentary History of Skin or Integumenta: No Blood Transfusions History of Blood Disorders: No Adverse Reaction to a Blood Tr: No Family Medical History Significant Family History: No Pertinent Family Hx Family Medial History: Arthritis 19 MOTHER Congenital heart disease Diabetes mellitus 19 FATHER 19 MOTHER FH: brain aneurysm 19 FATHER (cause of - 09/13/2015) Glaucoma 19 FATHER Hypertension 19 FATHER 19 MOTHER Psychosocial problem 19 MOTHER (depression) Physical Exam Vital Signs Vital Sign - Last 12Hours 07/13/17 21:56 Temp 97.8 Pulse 106 Resp 22 B/P (MAP) 141/93 Pulse Ox 97 O2 Delivery Room Air Capillary Refill : Less Than 3 Seconds General Appearance: No Apparent Distress, WD/WN HEENT: PERRL/EOMI, Pharynx Normal Neck: Normal Inspection, Non Tender Respiratory: Lungs Clear, Normal Breath Sounds Cardiovascular: No Murmur, Tachycardia Gastrointestinal: Non Tender, Soft Back: Normal Inspection, No CVA Tenderness, No Vertebral Tenderness Extremity: Non Tender, No Calf Tenderness Neurologic/Psychiatric: Alert, Oriented x3 Skin: Normal Color, Warm/Dry Progress/Results/Core Measures Results/Orders Lab Results Laboratory Tests Test 07/13/17 21:52 07/13/17 22:05 07/13/17 22:08 07/13/17 22:53 Range/Units Glucometer 443 *H 334 H 70-110 MG/DL White Blood Count 7.4 4.3-11.0 10^3/uL Red Blood Count 4.94 4.35-5.85 10^6/uL Hemoglobin 15.0 13.3-17.7 G/DL Hematocrit 40 40-54 % Mean Corpuscular Volume 82 80-99 FL Mean Corpuscular Hemoglobin 30 25-34 PG Mean Corpuscular Hemoglobin Concent 37 H 32-36 G/DL Red Cell Distribution Width 12.9 10.0-14.5 % Platelet Count 177 130-400 10^3/uL Mean Platelet Volume 11.9 H 7.4-10.4 FL Neutrophils (%) (Auto) 55 42-75 % Lymphocytes (%) (Auto) 34 12-44 % Monocytes (%) (Auto) 8 0-12 % Eosinophils (%) (Auto) 2 0-10 % Basophils (%) (Auto) 1 0-10 % Neutrophils # (Auto) 4.1 1.8-7.8 X 10^3 Lymphocytes # (Auto) 2.6 1.0-4.0 X 10^3 Monocytes # (Auto) 0.6 0.0-1.0 X 10^3 Eosinophils # (Auto) 0.2 0.0-0.3 10^3/uL Basophils # (Auto) 0.0 0.0-0.1 10^3/uL Sodium Level 129 L 135-145 MMOL/L Potassium Level 4.1 3.6-5.0 MMOL/L Chloride Level 96 L 98-107 MMOL/L Carbon Dioxide Level 19 L 21-32 MMOL/L Anion Gap 14 5-14 MMOL/L Blood Urea Nitrogen 18 7-18 MG/DL Creatinine 1.29 0.60-1.30 MG/DL Estimat Glomerular Filtration Rate > 60 BUN/Creatinine Ratio 14 Glucose Level 423 *H 70-105 MG/DL Calcium Level 9.4 8.5-10.1 MG/DL Total Bilirubin 0.6 0.1-1.0 MG/DL Aspartate Amino Transf (AST/SGOT) 33 5-34 U/L Alanine Aminotransferase (ALT/SGPT) 39 0-55 U/L Alkaline Phosphatase 78 40-136 U/L Total Protein 8.1 6.4-8.2 GM/DL Albumin 4.0 3.2-4.5 GM/DL Urine Color YELLOW Urine Clarity CLEAR Urine pH 5 5-9 Urine Specific [place] 1.020 1.016-1.022 Urine Protein NEGATIVE NEGATIVE Urine Glucose (UA) 4+ H NEGATIVE Urine Ketones 3+ H NEGATIVE Urine Nitrite NEGATIVE NEGATIVE Urine Bilirubin NEGATIVE NEGATIVE Urine Urobilinogen NORMAL NORMAL MG/DL Urine Leukocyte Esterase 1+ H NEGATIVE Urine RBC (Auto) NEGATIVE NEGATIVE Urine RBC NONE /HPF Urine WBC 0-2 /HPF Urine Crystals NONE /LPF Urine Bacteria NEGATIVE /HPF Urine Casts NONE /LPF Urine Mucus NEGATIVE /LPF Urine Yeast FEW H /HPF Urine Culture Indicated NO My Orders Orders - LUPE BARCLAY MD Cbc With Automated Diff (07/13/17 21:51) Ua Culture If Indicated (07/13/17 21:51) Comprehensive Metabolic Panel (07/13/17 21:51) Accucheck Stat ONCE (07/13/17 21:51) Saline Lock/Iv-Start (07/13/17 21:51) Ns Iv 1000 Ml (Sodium Chloride 0.9%) (07/13/17 22:00) Insulin (Regular) Human (Humulin R (Per (07/13/17 21:54) Ns Iv 1000 Ml (Sodium Chloride 0.9%) (07/13/17 22:54) Insulin (Regular) Human (Humulin R (Per (07/13/17 22:54) Medications Given in ED Current Medications Medications Dose Ordered Sig/Nikia Route Start Time Stop Time Status Last Admin Dose Admin Sodium Chloride 1,000 ml @ 0 mls/hr Q0M ONCE IV 07/13/17 22:54 07/13/17 22:55 DC 07/13/17 22:57 0 MLS/HR Vital Signs/I&O Vital Sign - Last 12Hours 07/13/17 21:56 Temp 97.8 Pulse 106 Resp 22 B/P (MAP) 141/93 Pulse Ox 97 O2 Delivery Room Air Blood Pressure Mean: 109 Point of Care Testing Finger Stick Blood Glucose: 443 Blood Glucose Action Taken: rosebud notified Progress Note : Progress Note Seen and evaluated. Elryw-dl-ymui glucose 443. IV, labs, UA, normal saline 1 L bolus and insulin 10 units IV ordered. Monitor patient. Dlnge-hk-drnp glucose and repeat was 374. Repeat normal saline 1 L bolus and 10 units of insulin IV. Patient is feeling a little better. Monitor patient. 2330: Heart rate now in the low 90s with O2 sat 97 percent. Repeat pjexv-lp-oxrf testing shows glucose at 234. Discharged home with return precautions. Patient verbalize understanding instructions and agreement with plan. Departure Impression Impression: Primary Impression: Hyperglycemia Additional Impression: Dehydration Disposition: 01 HOME, SELF-CARE Condition: Improved Departure-Patient Inst. Decision time for Depature: 23:33 Referrals: [facility] (PCP/Family) Primary Care Physician Patient Instructions: Dehydration, Adult (DC), Hyperglycemia, Adult (DC) Add. Discharge Instructions: All discharge instructions reviewed with patient and/or family. Voiced understanding. Continue home medication regimen as scheduled. Do not miss doses of your insulin. Monitor your blood sugars a couple times daily and report continued elevation of her blood sugars to your doctor so insulin adjustments can be made. Plenty of fluids. Avoid sugared snacks or drinks. Return for worse pain , fever, vomiting, weakness, rhythm problems or other concerns as needed. LUPE BARCLAY MD Jul 13, 2017 22:19
[2017-07-13 22:22] LABS: BASOPHILS % (AUTO) 1 % (0-10); EOSINOPHILS # (AUTO) 0.2 10^3/uL (0.0-0.3); EOSINOPHILS % (AUTO) 2 % (0-10); LYMPHOCYTES # (AUTO) 2.6 X 10^3 (1.0-4.0); LYMPHOCYTES % (AUTO) 34 % (12-44); MEAN CORPUSCULAR HEMOGLOBIN 30 PG (25-34); MEAN CORPUSCULAR HGB CONC 37 G/DL (32-36); MEAN CORPUSCULAR VOLUME 82 FL (80-99); MEAN PLATELET VOLUME 11.9 FL (7.4-10.4); MONOCYTES # (AUTO) 0.6 X 10^3 (0.0-1.0); MONOCYTES % (AUTO) 8 % (0-12); NEUTROPHILS # (AUTO) 4.1 X 10^3 (1.8-7.8); NEUTROPHILS % (AUTO) 55 % (42-75); PLATELET COUNT 177 10^3/uL (130-400); RED BLOOD COUNT 4.94 10^6/uL (4.35-5.85); RED CELL DISTRIBUTION WIDTH 12.9 % (10.0-14.5); WHITE BLOOD COUNT 7.4 10^3/uL (4.3-11.0)
[2017-07-13 22:27] LABS: WBC,URINE 0-2 /HPF
[2017-07-13 22:29] LABS: YEAST,URINE FEW /HPF
[2017-07-13 22:34] LABS: ALANINE AMINOTRANSFERASE 39 U/L (0-55); ANION GAP 14 MMOL/L (5-14); ASPARTATE AMINO TRANSFERASE 33 U/L (5-34); BILIRUBIN,TOTAL 0.6 MG/DL (0.1-1.0); BLOOD UREA NITROGEN 18 MG/DL (7-18); BUN/CREATININE RATIO 14; CALCIUM 9.4 MG/DL (8.5-10.1); CARBON DIOXIDE 19 MMOL/L (21-32); CHLORIDE 96 MMOL/L (98-107); CREATININE SERUM 1.29 MG/DL (0.60-1.30); GFR ESTIMATED > 60; POTASSIUM 4.1 MMOL/L (3.6-5.0); SODIUM 129 MMOL/L (135-145); TOTAL PROTEIN 8.1 GM/DL (6.4-8.2)
[2017-07-13 22:38] LABS: GLUCOSE 423 MG/DL (70-105)
[2017-07-13] MEDS ORDERED: NS IV 1000 ML 1,000 ML IV ONE (22:54)
[2017-07-13 23:46] VITALS: BP 120/64
== END 2017-07-13 23:44 | disposition home or self-care (01) ==
LOC: EDUNIT# 21:46 → ER 21:47
DX: E11.65 Type 2 diabetes mellitus with hyperglycemia (principal); E86.0 Dehydration; J45.909 Unspecified asthma, uncomplicated; I10 Essential (primary) hypertension; F32.9 Major depressive disorder, single episode, unspecified; F41.9 Anxiety disorder, unspecified; F90.9 Attention-deficit hyperactivity disorder, unspecified type; E11.40 Type 2 diabetes mellitus with diabetic neuropathy, unspecified; E66.01 Morbid (severe) obesity due to excess calories; K21.9 Gastro-esophageal reflux disease without esophagitis; Z79.4 Long term (current) use of insulin; Z68.42 Body mass index [BMI] 45.0-49.9, adult; Z82.49 Family history of ischemic heart disease and other diseases of the circulatory system
CPT/HCPCS: 36415; 80053; 81000; 82962; 85025; 96361; 96374; 96376

== ENCOUNTER 2017-11-20 22:34 | Emergency (ER) | payer MEDICARE, MEDICAID ==
[~2017-11-20] VITALS: Ht 177.8 cm; Wt 151.5 kg
[~2017-11-20 22:34] MED LIST changes: +ACHD5005 PO; +AZIT250T12 PO; -AZIT250T5 PO; +HYDR-34 PO; -HYDR-3812 PO; -HYDR-3816 PO; +TEST1PAT7
--- OUTSIDE RECORDS SUMMARY | 2017-11-20 22:44 | XMS REPORT ---
Author Author NERISSA MARTINEZ [facility] Address [address] [place] [address] Care Team Providers Care Gas Welding Equipment Mechanic Name Role Phone NERISSA MARTINEZ Unavailable PROBLEMS Type Condition ICD9-CM Code [id number] Code Onset Dates Condition Status SNOMED Code Problem Controlled type 2 diabetes mellitus without complication, without long -term current use of insulin E11.9 Active 809406737 Problem GERD without esophagitis K21.9 Active 040932731 Problem Diabetic polyneuropathy associated with type 2 diabetes mellitus E11.42 Active 08517284 Problem Hypertriglyceridemia E78.1 Active 541501107 Problem Obesity, unspecified E66.9 Active 415921829 Problem Encounter for dental examination Z01.20 Active 978637255 Problem Other male erectile dysfunction N52.8 Active 264483438 Problem terminal superintendent 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.4 Active 089395229 Problem Type 2 diabetes mellitus with hyperglycemia E11.65 Active 897581036 Problem Anxiety F41.9 Active 14960391 Problem Diverticulitis of small intestine without perforation or abscess without bleeding K57.12 Active 11213731 Problem Diabetes type 2, controlled E11.9 Active 98961335 Problem 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 Active 77685401 Problem Gastro-esophageal reflux disease with esophagitis K21.0 Active 600415286 Problem Insomnia, unspecified G47.00 Active 360767857 Problem Diabetes type 2, uncontrolled E11.65 Active 215896650 Problem Type 2 diabetes mellitus with hyperglycemia E11.65 Active 250193970 Problem Generalized anxiety disorder F41.1 Active 53448665 Problem Polyneuropathy G62.9 Active 05594753 Problem Hypertension I10 Active 72267499 Problem 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
--- OUTSIDE RECORDS SUMMARY | 2017-11-20 22:46 | XMS REPORT ---
Author Author NERISSA MARTINEZ [facility] Address [address] [place] [address] Care Team Providers Care Roustabout Supervisor Name Role Phone NERISSA MARTINEZ Unavailable PROBLEMS Type Condition ICD9-CM Code [id number] Code Onset Dates Condition Status SNOMED Code Problem Controlled type 2 diabetes mellitus without complication, without long -term current use of insulin E11.9 Active 678471273 Problem GERD without esophagitis K21.9 Active 489002569 Problem Diabetic polyneuropathy associated with type 2 diabetes mellitus E11.42 Active 29973779 Problem Hypertriglyceridemia E78.1 Active 318421081 Problem Obesity, unspecified E66.9 Active 278820380 Problem Encounter for dental examination Z01.20 Active 285338412 Problem Other male erectile dysfunction N52.8 Active 945924403 Problem buttermaker continuous churn 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.4 Active 374405716 Problem Type 2 diabetes mellitus with hyperglycemia E11.65 Active 020066426 Problem Anxiety F41.9 Active 47118560 Problem Diverticulitis of small intestine without perforation or abscess without bleeding K57.12 Active 99354973 Problem Diabetes type 2, controlled E11.9 Active 40807891 Problem 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 Active 64827045 Problem Gastro-esophageal reflux disease with esophagitis K21.0 Active 105172001 Problem Insomnia, unspecified G47.00 Active 737341027 Problem Diabetes type 2, uncontrolled E11.65 Active 665294887 Problem Type 2 diabetes mellitus with hyperglycemia E11.65 Active 537310767 Problem Generalized anxiety disorder F41.1 Active 86325904 Problem Polyneuropathy G62.9 Active 73852223 Problem Hypertension I10 Active 79627534 Problem 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 Active 557971782 ALLERGIES Substance Reaction Event Type Date Status Zoloft hives adverse reaction Drug Allergy January, Active Wellbutrin "out of it" Drug Allergy January, Active Clindamycin HCl itching Drug Allergy January, Active BuSpar local swelling Drug Allergy January, Active SOCIAL HISTORY Never Assessed PLAN OF CARE Activity Details Follow Up 4 Weeks Reason:dm2 ooc VITAL SIGNS Height 70 in 2017-02-11 Weight 318 lbs 2017-02-11 Temperature 97.0 degrees Fahrenheit 2017-02-11 Heart Rate 118 bpm 2017-02-11 Respiratory Rate 20 2017-02-11 BMI 45.62 kg/m2 2017-02-11 Blood pressure systolic 142 mmHg 2017-02-11 Blood pressure diastolic 72 mmHg 2017-02-11 MEDICATIONS Medication Instructions Dosage Frequency Start Date End Date Duration Status Prozac 40 mg Orally Once a day 1 capsule 24h Oct, Active [place] 5-325 MG Orally every 6 hrs 1 tablet as needed 6h January, 28 days Active Xanax 0.5 MG Orally for panic 1 tablet in the AM and 2 tabs at HS Active Prozac 20 mg Orally Once a day along with Prozac 40mg po AM 1 capsule in the morning January, Active Adderall 10 MG Orally Once a day 1 tablet in the morning 24h January, 28 days Active Insulin Detemir 100 UNIT/ML Subcutaneous 2 times per day 85 units Active NovoLog Flexpen 100 UNIT/ML Subcutaneous 3 times a day 40 units 8h Nov, Active Ibuprofen 800 MG Orally Three times a day 1 tablet 8h 34 Active Test strips Test Strips ONETOUCH VERIO TEST STRIP E11.19 3 times a day test blood sugar 8h Nov, daily Active MetFORMIN HCl ER (MOD) 500 MG Orally 2 times a day 2 tablets 12h Active Doxepin HCl 50 mg Orally Once a day 1 capsule at bedtime 24h Dec, Active Lisinopril 20 MG Orally Once a day 1 tablet 24h 30 days Active Neurontin 800 MG Orally Three times a day 1 tablet 8h Oct, 30 day(s) Active Hydrochlorothiazide 25 MG Orally Once a day 1 tablet in the morning 24h Nov, Active RESULTS No Results PROCEDURES Procedure Date Ordered Result Body Site [facility] VISIT ESTABLISHED PATIENT February 11, 2017 GLYCATED HEMOGLOBIN TEST February 11, 2017 IMMUNIZATIONS No Known Immunizations MEDICAL (GENERAL) HISTORY [...]
--- OUTSIDE RECORDS SUMMARY | 2017-11-20 22:46 | XMS REPORT ---
Author Author NERISSA MARTINEZ [facility] Address [address] [place] [address] Care Team Providers Care Supervising Chef Name Role Phone NERISSA MARTINEZ Unavailable PROBLEMS Type Condition ICD9-CM Code WAF28-[id number] Code Onset Dates Condition Status SNOMED Code Problem Controlled type 2 diabetes mellitus without complication, without long -term current use of insulin E11.9 Active 122118498 Problem GERD without esophagitis K21.9 Active 424024062 Problem Diabetic polyneuropathy associated with type 2 diabetes mellitus E11.42 Active 67198359 Problem Hypertriglyceridemia E78.1 Active 602641334 Problem Obesity, unspecified E66.9 Active 279700216 Problem Encounter for dental examination Z01.20 Active 026327154 Problem Other male erectile dysfunction N52.8 Active 223579792 Problem FPC 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.4 Active 387602776 Problem Type 2 diabetes mellitus with hyperglycemia E11.65 Active 814073476 Problem Anxiety F41.9 Active 28725357 Problem Diverticulitis of small intestine without perforation or abscess without bleeding K57.12 Active 06223947 Problem Diabetes type 2, controlled E11.9 Active 06816635 Problem 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
--- OUTSIDE RECORDS SUMMARY | 2017-11-20 22:48 | XMS REPORT ---
Author Author MARIANO ZAKI Organization [facility] Address [address] [place] [address] Care Team Providers Care Color Card Maker Name Role Phone ZAKI QUINTANA Unavailable PROBLEMS Type Condition ICD9-CM Code [id number] Code Onset Dates Condition Status SNOMED Code Problem Controlled type 2 diabetes mellitus without complication, without long -term current use of insulin E11.9 Active 057432128 Problem GERD without esophagitis K21.9 Active 267535241 Problem Diabetic polyneuropathy associated with type 2 diabetes mellitus E11.42 Active 93258831 Problem Hypertriglyceridemia E78.1 Active 837541047 Problem Obesity, unspecified E66.9 Active 247357767 Problem Encounter for dental examination Z01.20 Active 429124236 Problem Other male erectile dysfunction N52.8 Active 048498787 Problem half-way 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.4 Active 263683876 Problem Type 2 diabetes mellitus with hyperglycemia E11.65 Active 936486971 Problem Anxiety F41.9 Active 58038905 Problem Diverticulitis of small intestine without perforation or abscess without bleeding K57.12 Active 93985710 Problem Diabetes type 2, controlled E11.9 Active 39801667 Problem 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 Active 25853922 Problem Gastro-esophageal reflux disease with esophagitis K21.0 Active 608317134 Problem Insomnia, unspecified G47.00 Active 995452666 Problem Diabetes type 2, uncontrolled E11.65 Active 607856245 Problem Type 2 diabetes mellitus with hyperglycemia E11.65 Active 824907560 Problem Generalized anxiety disorder F41.1 Active 32359457 Problem Polyneuropathy G62.9 Active 35462050 Problem Hypertension I10 Active 10219433 Problem 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 Active 307581265 ALLERGIES Substance Reaction Event Type Date Status Zoloft hives adverse reaction Drug Allergy January, Active Wellbutrin "out of it" Drug Allergy January, Active Clindamycin HCl itching Drug Allergy January, Active BuSpar local swelling Drug Allergy January, Active SOCIAL HISTORY Never Assessed PLAN OF CARE Activity Details Follow Up 3 Months Reason: VITAL SIGNS Height 70 in 2017-01-19 Weight 316.0 lbs 2017-01-19 Heart Rate 116 bpm 2017-01-19 Respiratory Rate 22 2017-01-19 BMI 45.34 kg/m2 2017-01-19 Blood pressure systolic 140 mmHg 2017-01-19 Blood pressure diastolic 85 mmHg 2017-01-19 MEDICATIONS Medication Instructions Dosage Frequency Start Date End Date Duration Status Ibuprofen 800 MG Orally Three times a day 1 tablet 8h 34 Active Neurontin 800 MG Orally Three times a day 1 tablet 8h Oct, 30 day(s) Active Test strips Test Strips ONETOUCH VERIO TEST STRIP E11.19 3 times a day test blood sugar 8h Nov, daily Active MetFORMIN HCl ER (MOD) 500 MG Orally 2 times a day 2 tablets 12h Active Insulin Detemir 100 UNIT/ML Subcutaneous 2 times per day 85 units Active Prozac 40 mg Orally Once a day 1 capsule 24h Oct, Active Fluconazole 150 MG Orally one time 1 tablet Nov, 1 dose Active Xanax 0.5 MG Orally for panic 1 tablet in the AM and 2 tabs at HS Active Hydrochlorothiazide 25 MG Orally Once a day 1 tablet in the morning 24h Nov, Active [place] 5-325 MG Orally every 6 hrs 1 tablet as needed 6h Nov, Active Lisinopril 20 MG Orally Once a day 1 tablet 24h 30 days Active NovoLog Flexpen 100 UNIT/ML as directed Nov, Active Sucralfate 1 GM Orally Twice a day 1 tablet on an empty stomach 12h Active Adderall 10 mg Orally Once a day 1 tablet in the morning 24h Dec, Active Prozac 20 mg Orally Once a day along with Prozac 40mg po AM 1 capsule in the morning January, Active Doxepin HCl 50 mg Orally Once a day 1 capsule at bedtime 24h Dec, Active Bydureon 2 MG ICD10- E11.65 once weekly inject 2 mg Nov, Active RESULTS No Results PROCEDURES Procedure Date Ordered Result Body Site [facility] VISIT ESTABLISHED PATIENT January 19, 2017 LAB NOT BILLED BY [facility] January 19, 2017 IMMUNIZATIONS No Known Immunizations MEDICAL (GENERAL) HISTORY Type Description Date Medical History Throat pain Medical History Unspecified follow-up examination Medical History irritable bowel syndrome Medical History obesity Medical History type II diabetes Medical History headache Medical History depression Medical History hypogonadism Medical History pneumonia Surgical History cholecystectomy 2014 Surgical History testicular surgery at age 1 Hospitalization History [facility] for diabetes 09/2011 Hospitalization History [facility] diabetic issues 09/2015 Hospitalization History [facility] Pneumonia 01/2016 Hospitalization History celluitis of the left upper thigh-[facility] 04/2017
--- OUTSIDE RECORDS SUMMARY | 2017-11-20 22:48 | XMS REPORT ---
Author Author NERISSA MARTINEZ [facility] Address [address] [place] [address] Care Team Providers Care Supervisory It Specialist Name Role Phone NERISSA MARTINEZ Unavailable PROBLEMS Type Condition ICD9-CM Code [id number] Code Onset Dates Condition Status SNOMED Code Problem Controlled type 2 diabetes mellitus without complication, without long -term current use of insulin E11.9 Active 039278940 Problem GERD without esophagitis K21.9 Active 340104126 Problem Diabetic polyneuropathy associated with type 2 diabetes mellitus E11.42 Active 71340670 Problem Hypertriglyceridemia E78.1 Active 696543588 Problem Obesity, unspecified E66.9 Active 892529452 Problem Encounter for dental examination Z01.20 Active 025436906 Problem Other male erectile dysfunction N52.8 Active 834285996 Problem long-term 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.4 Active 085319675 Problem Type 2 diabetes mellitus with hyperglycemia E11.65 Active 696125263 Problem Anxiety F41.9 Active 28873772 Problem Diverticulitis of small intestine without perforation or abscess without bleeding K57.12 Active 46079258 Problem Diabetes type 2, controlled E11.9 Active 16113488 Problem 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 Active 95345640 Problem Gastro-esophageal reflux disease with esophagitis K21.0 Active 818065543 Problem Insomnia, unspecified G47.00 Active 394608020 Problem Diabetes type 2, uncontrolled E11.65 Active 290415956 Problem Type 2 diabetes mellitus with hyperglycemia E11.65 Active 477150451 Problem Generalized anxiety disorder F41.1 Active 93514434 Problem Polyneuropathy G62.9 Active 46464139 Problem Hypertension I10 Active 75458559 Problem 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
--- OUTSIDE RECORDS SUMMARY | 2017-11-20 22:50 | XMS REPORT ---
Author Author NERISSA MARTINEZ [facility] Address [address] [place] [address] Care Team Providers Care Improvement Coordinator Name Role Phone NERISSA MARTINEZ Unavailable PROBLEMS Type Condition ICD9-CM Code [id number] Code Onset Dates Condition Status SNOMED Code Problem Controlled type 2 diabetes mellitus without complication, without long -term current use of insulin E11.9 Active 058169990 Problem GERD without esophagitis K21.9 Active 478110247 Problem Diabetic polyneuropathy associated with type 2 diabetes mellitus E11.42 Active 12372763 Problem Hypertriglyceridemia E78.1 Active 427941606 Problem Obesity, unspecified E66.9 Active 997682430 Problem Encounter for dental examination Z01.20 Active 271506039 Problem Other male erectile dysfunction N52.8 Active 050240820 Problem 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.4 Active 156436613 Problem Type 2 diabetes mellitus with hyperglycemia E11.65 Active 197134944 Problem Anxiety F41.9 Active 82747969 Problem Diverticulitis of small intestine without perforation or abscess without bleeding K57.12 Active 68244864 Problem Diabetes type 2, controlled E11.9 Active 91946866 Problem 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 Active 94443043 Problem Gastro-esophageal reflux disease with esophagitis K21.0 Active 223527475 Problem Insomnia, unspecified G47.00 Active 860434243 Problem Diabetes type 2, uncontrolled E11.65 Active 283271294 Problem Type 2 diabetes mellitus with hyperglycemia E11.65 Active 852454740 Problem Generalized anxiety disorder F41.1 Active 43582890 Problem Polyneuropathy G62.9 Active 66664900 Problem Hypertension I10 Active 26773970 Problem 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
--- OUTSIDE RECORDS SUMMARY | 2017-11-20 22:59 | XMS REPORT | Continuity of Care Document ---
Author Author Formerly [facility] Address Unknown Phone Unavailable Allergies Active Description Code Type Severity Reaction Onset Reported/Identified Relationship to Patient Clinical Status Yes mirtazapine [id number] Drug Allergy Severe N/A 01/10/2007 Yes venlafaxine [id number] Drug Allergy Moderate N/A 01/10/2007 Yes Wellbutrin Drug Allergy N/A N/A 10/22/2008 Yes Wellbutrin Drug Allergy 10/22/2008 Yes BuSpar Drug Allergy N/A N/A 12/25/2014 Yes Clindamycin Drug Allergy N/A N/A 12/25/2014 Yes sertraline [id number] Drug Allergy Severe RASH, SWELLING 01/20/2016 Yes bupropion [id number] Drug Allergy Unknown "CAUSED ME TO B 01/20/2016 Yes buspirone [id number] Drug Allergy Unknown THROAT SWELLED 01/20/2016 Yes cephalexin [id number] Drug Allergy Unknown HIVES 01/20/2016 Yes codeine [id number] Drug Allergy Unknown N/A 01/20/2016 Medications There is no data. Problems Date Dx Coded Attending Type Code Diagnosis Diagnosed By 06/28/2008 250.02 DIABETES MELLITUS POORLY CONTROLLED 06/28/2008 250.02 DIABETES MELLITUS POORLY CONTROLLED 06/28/2008 250.02 DIABETES MELLITUS POORLY CONTROLLED 06/28/2008 250.02 DIABETES MELLITUS POORLY CONTROLLED 06/28/2008 250.02 DIABETES MELLITUS POORLY CONTROLLED 06/28/2008 250.02 DIABETES MELLITUS POORLY CONTROLLED 06/28/2008 250.02 DIABETES MELLITUS POORLY CONTROLLED 06/28/2008 250.02 DIABETES MELLITUS POORLY CONTROLLED 06/28/2008 250.02 DIABETES MELLITUS POORLY CONTROLLED 06/28/2008 250.02 DIABETES MELLITUS POORLY CONTROLLED 06/28/2008 250.02 DIABETES MELLITUS POORLY CONTROLLED 06/28/2008 250.02 DIABETES MELLITUS POORLY CONTROLLED 06/28/2008 SHRADDHA CISNEROS APRN 250.02 DIABETES MELLITUS POORLY CONTROLLED 06/28/2008 ESSIE JOHNSON MD 250.02 DIABETES MELLITUS POORLY CONTROLLED 06/28/2008 ASIYA VENTURA DDS 250.02 DIABETES MELLITUS POORLY CONTROLLED 06/28/2008 LORENZO PAYNESVIKRAM 250.02 DIABETES MELLITUS POORLY CONTROLLED 06/28/2008 ANDREWS CASHERO BARREL PLATER, SHRADDHA N 250.02 DIABETES MELLITUS POORLY CONTROLLED 06/28/2008 ANDREWS CASHERO BARREL PLATER, SHRADDHA N 250.02 DIABETES MELLITUS POORLY CONTROLLED 06/28/2008 NERISSA MARTINEZ APRN 250.02 DIABETES MELLITUS POORLY CONTROLLED 06/28/2008 ANDREWS CASHERO BARREL PLATER, SHRADDHA N 250.02 DIABETES MELLITUS POORLY CONTROLLED 06/28/2008 ANDREWS CASHERO BARREL PLATER, SHRADDHA N 250.02 DIABETES MELLITUS POORLY CONTROLLED 06/28/2008 ANDREWS CASHERO BARREL PLATER, SHRADDHA N 250.02 DIABETES MELLITUS POORLY CONTROLLED 06/28/2008 ANDREWS CASHERO BARREL PLATER, SHRADDHA N 250.02 DIABETES MELLITUS POORLY CONTROLLED 06/28/2008 ANDREWS CASHERO BARREL PLATER, SHRADDHA N 250.02 DIABETES MELLITUS POORLY CONTROLLED 06/28/2008 NERISSA MARTINEZ APRN 250.02 DIABETES MELLITUS POORLY CONTROLLED 06/28/2008 RAFAELA PAREDES APRN 250.02 DIABETES MELLITUS POORLY CONTROLLED 06/28/2008 JAVIER MARVIN, REAGAN Weldon 250.02 DIABETES MELLITUS POORLY CONTROLLED 06/28/2008 JAVIER MARVIN, REAGAN Weldon 250.02 DIABETES MELLITUS POORLY CONTROLLED 06/28/2008 LAITH NGUYEN APRN 250.02 DIABETES MELLITUS POORLY CONTROLLED 06/28/2008 JAVIER PHD, REAGAN Weldon 250.02 DIABETES MELLITUS POORLY CONTROLLED 06/28/2008 JAVIER MARVIN, REAGAN Weldon 250.02 DIABETES MELLITUS POORLY CONTROLLED 06/28/2008 ZAKI QUINTANA APRN 250.02 DIABETES MELLITUS POORLY CONTROLLED 10/22/2008 785.6 LYMPH NODES ENLARGEMENT 10/22/2008 785.6 LYMPH NODES ENLARGEMENT 10/22/2008 785.6 LYMPH NODES ENLARGEMENT 10/22/2008 785.6 LYMPH NODES ENLARGEMENT 10/22/2008 785.6 LYMPH NODES ENLARGEMENT 10/22/2008 785.6 LYMPH NODES ENLARGEMENT 10/22/2008 785.6 LYMPH NODES ENLARGEMENT 10/22/2008 785.6 LYMPH NODES ENLARGEMENT 10/22/2008 785.6 LYMPH NODES ENLARGEMENT 10/22/2008 785.6 LYMPH NODES ENLARGEMENT 10/22/2008 785.6 LYMPH NODES ENLARGEMENT 10/22/2008 785.6 LYMPH NODES ENLARGEMENT 10/22/2008 ANDREWS CASHERO BARREL PLATER, SHRADDHA N 785.6 LYMPH NODES ENLARGEMENT 10/22/2008 ESSIE JOHNSON MD 785.6 LYMPH NODES ENLARGEMENT 10/22/2008 ASIYA VENTURA DDS 785.6 LYMPH NODES ENLARGEMENT 10/22/2008 LORENZO PAYNESVIKRAM 785.6 LYMPH NODES ENLARGEMENT 10/22/2008 ANDREWS CASHERO BARREL PLATER, SHRADDHA N 785.6 LYMPH NODES ENLARGEMENT 10/22/2008 ANDREWS CASHERO BARREL PLATER, SHRADDHA N 785.6 LYMPH NODES ENLARGEMENT 10/22/2008 JUAN BARREL PLATER, NERISSA T 785.6 LYMPH NODES ENLARGEMENT 10/22/2008 ANDREWS CASHERO BARREL PLATER, SHRADDHA N 785.6 LYMPH NODES ENLARGEMENT 10/22/2008 ANDREWS CASHERO BARREL PLATER, SHRADDHA N 785.6 LYMPH NODES ENLARGEMENT 10/22/2008 ANDREWS CASHERO BARREL PLATER, SHRADDHA N 785.6 LYMPH NODES ENLARGEMENT 10/22/2008 ANDREWS CASHERO BARREL PLATER, SHRADDHA N 785.6 LYMPH NODES ENLARGEMENT 10/22/2008 ANDREWS CASHERO BARREL PLATER, SHRADDHA N 785.6 LYMPH NODES ENLARGEMENT 10/22/2008 JUAN GARNER, NERISSA T 785.6 LYMPH NODES ENLARGEMENT 10/22/2008 RAFAELA PAREDES APRN 785.6 LYMPH NODES ENLARGEMENT 10/22/2008 REAGAN HERRERA PHD 785.6 LYMPH NODES ENLARGEMENT 10/22/2008 REAGAN HERRERA PHD 785.6 LYMPH NODES ENLARGEMENT 10/22/2008 LAITH NGUYEN APRN R 785.6 LYMPH NODES ENLARGEMENT 10/22/2008 REAGAN HERRERA PHD 785.6 LYMPH NODES ENLARGEMENT 10/22/2008 REAGAN HERRERA PHD 785.6 LYMPH NODES ENLARGEMENT 10/22/2008 ZAKI QUINTANA APRN 785.6 LYMPH NODES ENLARGEMENT 11/07/2008 788.1 DYSURIA 11/07/2008 788.1 DYSURIA 11/07/2008 788.1 DYSURIA 11/07/2008 788.1 DYSURIA 11/07/2008 788.1 DYSURIA 11/07/2008 788.1 DYSURIA 11/07/2008 788.1 DYSURIA 11/07/2008 788.1 DYSURIA 11/07/2008 788.1 DYSURIA 11/07/2008 788.1 DYSURIA 11/07/2008 788.1 DYSURIA 11/07/2008 788.1 DYSURIA 11/07/2008 ANDREWS CASHERO BARREL PLATER, SHRADDHA N 788.1 DYSURIA 11/07/2008 ELIZABETH RODRIGUEZ, ESSIE 788.1 DYSURIA 11/07/2008 ASIYA VENTURA DDS 788.1 DYSURIA 11/07/2008 LORENZO PAYNESVIKRAM 788.1 DYSURIA 11/07/2008 ANDREWS CASHERO BARREL PLATER, SHRADDHA N 788.1 DYSURIA 11/07/2008 ANDREWS CASHERO BARREL PLATER, SHRADDHA N 788.1 DYSURIA 11/07/2008 NERISSA MARTINEZ APRN 788.1 DYSURIA 11/07/2008 ANDREWS CASHERO BARREL PLATER, SHRADDHA N 788.1 DYSURIA 11/07/2008 ANDREWS CASHERO BARREL PLATER, SHRADDHA N 788.1 DYSURIA 11/07/2008 ANDREWS CASHERO BARREL PLATER, SHRADDHA N 788.1 DYSURIA 11/07/2008 ANDREWS CASHERO BARREL PLATER, SHRADDHA N 788.1 DYSURIA 11/07/2008 ANDREWS CASHERO BARREL PLATER, SHRADDHA N 788.1 DYSURIA 11/07/2008 NERISSA MARTINEZ APRN 788.1 DYSURIA 11/07/2008 RAFAELA PAREDES APRN 788.1 DYSURIA 11/07/2008 JAVIER MARVIN, REAGAN Weldon 788.1 DYSURIA 11/07/2008 JAVIER MARVIN, REAGAN Weldon 788.1 DYSURIA 11/07/2008 LAITH NGUYEN APRN 788.1 DYSURIA 11/07/2008 JAVIER MARVIN, REAGAN Weldon 788.1 DYSURIA 11/07/2008 JAVIER MARVIN, REAGAN Weldon 788.1 DYSURIA 11/07/2008 ZAKI QUINTANA APRN 788.1 DYSURIA 01/31/2009 536.8 DYSPEPSIA 01/31/2009 787.91 diarrhea 01/31/2009 V15.81 PERSONAL HISTORY OF NONCOMPLIANCE WITH MEDICAL TREATMENT PRESENTING HAZARDS TO HEALTH 01/31/2009 536.8 DYSPEPSIA 01/31/2009 787.91 diarrhea 01/31/2009 V15.81 PERSONAL HISTORY OF NONCOMPLIANCE WITH MEDICAL TREATMENT PRESENTING HAZARDS TO HEALTH 01/31/2009 536.8 DYSPEPSIA 01/31/2009 787.91 diarrhea 01/31/2009 V15.81 PERSONAL HISTORY OF NONCOMPLIANCE WITH MEDICAL TREATMENT PRESENTING HAZARDS TO HEALTH 01/31/2009 536.8 DYSPEPSIA 01/31/2009 787.91 diarrhea 01/31/2009 V15.81 PERSONAL HISTORY OF NONCOMPLIANCE WITH MEDICAL TREATMENT PRESENTING HAZARDS TO HEALTH 01/31/2009 536.8 DYSPEPSIA 01/31/2009 787.91 diarrhea 01/31/2009 V15.81 PERSONAL HISTORY OF NONCOMPLIANCE WITH MEDICAL TREATMENT PRESENTING HAZARDS TO HEALTH 01/31/2009 536.8 DYSPEPSIA 01/31/2009 787.91 diarrhea 01/31/2009 V15.81 PERSONAL HISTORY OF NONCOMPLIANCE WITH MEDICAL TREATMENT PRESENTING HAZARDS TO HEALTH 01/31/2009 536.8 DYSPEPSIA 01/31/2009 787.91 diarrhea 01/31/2009 V15.81 PERSONAL HISTORY OF NONCOMPLIANCE WITH MEDICAL TREATMENT PRESENTING HAZARDS TO HEALTH 01/31/2009 536.8 DYSPEPSIA 01/31/2009 787.91 diarrhea 01/31/2009 V15.81 PERSONAL HISTORY OF NONCOMPLIANCE WITH MEDICAL TREATMENT PRESENTING HAZARDS TO HEALTH 01/31/2009 536.8 DYSPEPSIA 01/31/2009 787.91 diarrhea 01/31/2009 V15.81 PERSONAL HISTORY OF NONCOMPLIANCE WITH MEDICAL TREATMENT PRESENTING HAZARDS TO HEALTH 01/31/2009 536.8 DYSPEPSIA 01/31/2009 787.91 diarrhea 01/31/2009 V15.81 PERSONAL HISTORY OF NONCOMPLIANCE WITH MEDICAL TREATMENT PRESENTING HAZARDS TO HEALTH 01/31/2009 536.8 DYSPEPSIA 01/31/2009 787.91 diarrhea 01/31/2009 V15.81 PERSONAL HISTORY OF NONCOMPLIANCE WITH MEDICAL TREATMENT PRESENTING HAZARDS TO HEALTH 01/31/2009 536.8 DYSPEPSIA 01/31/2009 787.91 diarrhea 01/31/2009 V15.81 PERSONAL HISTORY OF NONCOMPLIANCE WITH MEDICAL TREATMENT PRESENTING HAZARDS TO HEALTH 01/31/2009 SHRADDHA CISNEROS APRN N 536.8 DYSPEPSIA 01/31/2009 SHRADDHA CISNEROS APRN N 787.91 diarrhea 01/31/2009 SHRADDHA CISNEROS APRN N V15.81 PERSONAL HISTORY OF NONCOMPLIANCE WITH MEDICAL TREATMENT PRESENTING HAZARDS TO HEALTH 01/31/2009 ESSIE JOHNSON MD 536.8 DYSPEPSIA 01/31/2009 ESSIE JOHNSON MD 787.91 diarrhea 01/31/2009 ESSIE JOHNSON MD V15.81 PERSONAL HISTORY OF NONCOMPLIANCE WITH MEDICAL TREATMENT PRESENTING HAZARDS TO HEALTH 01/31/2009 WHITE DDS, ASIYA J 536.8 DYSPEPSIA 01/31/2009 WHITE DDS, ASIYA J 787.91 diarrhea 01/31/2009 WHITE DDS, ASIYA J V15.81 PERSONAL HISTORY OF NONCOMPLIANCE WITH MEDICAL TREATMENT PRESENTING HAZARDS TO HEALTH 01/31/2009 WHITE DDS, VIKRAM D 536.8 DYSPEPSIA 01/31/2009 WHITE DDS, VIKRAM D 787.91 diarrhea 01/31/2009 WHITE DDS, VIKRAM D V15.81 PERSONAL HISTORY OF NONCOMPLIANCE WITH MEDICAL TREATMENT PRESENTING HAZARDS TO HEALTH 01/31/2009 SHRADDHA CISNEROS APRN N 536.8 DYSPEPSIA 01/31/2009 ANDREWS KALINAMASHA PURDY APRNCY N 787.91 diarrhea 01/31/2009 ANDREWS SHRADDHA HENDERSON APRN N V15.81 PERSONAL HISTORY OF NONCOMPLIANCE WITH MEDICAL TREATMENT PRESENTING HAZARDS TO HEALTH 01/31/2009 SRHADDHA CISNEROS APRN N 536.8 DYSPEPSIA 01/31/2009 MASHA CISNEROS APRNCY N 787.91 diarrhea 01/31/2009 SHRADDHA CISNEROS APRN N V15.81 PERSONAL HISTORY OF NONCOMPLIANCE WITH MEDICAL TREATMENT PRESENTING HAZARDS TO HEALTH 01/31/2009 NERISSA MARTINEZ APRN 536.8 DYSPEPSIA 01/31/2009 NERISSA MARTINEZ APRN 787.91 diarrhea 01/31/2009 NERISSA MARTINEZ APRN V15.81 PERSONAL HISTORY OF NONCOMPLIANCE WITH MEDICAL TREATMENT PRESENTING HAZARDS TO HEALTH 01/31/2009 SHRADDHA CISNEROS APRN N 536.8 DYSPEPSIA 01/31/2009 SHRADDHA CISNEROS APRN N 787.91 diarrhea 01/31/2009 SHRADDHA CISNEROS APRN N V15.81 PERSONAL HISTORY OF NONCOMPLIANCE WITH MEDICAL TREATMENT PRESENTING HAZARDS TO HEALTH 01/31/2009 JULIANA HENDERSON APRN, SHRADDHA N 536.8 DYSPEPSIA 01/31/2009 JULIANA HENDERSON APRN, SHRADDHA N 787.91 diarrhea 01/31/2009 MASHA CISNEROS APRNCY N V15.81 PERSONAL HISTORY OF NONCOMPLIANCE WITH MEDICAL TREATMENT PRESENTING HAZARDS TO HEALTH 01/31/2009 MASHA CISNEROS APRNCY N 536.8 DYSPEPSIA 01/31/2009 JULIANA HENDERSON APRN, SHRADDHA N 787.91 diarrhea 01/31/2009 JULIANA HENDERSON APRN, SHRADDHA N V15.81 PERSONAL HISTORY OF NONCOMPLIANCE WITH MEDICAL TREATMENT PRESENTING HAZARDS TO HEALTH 01/31/2009 MASHA CISNEROS APRNCY N 536.8 DYSPEPSIA 01/31/2009 JULIANA HENDERSON APRN, SHRADDHA N 787.91 diarrhea 01/31/2009 MASHA CISNEROS APRNCY N V15.81 PERSONAL HISTORY OF NONCOMPLIANCE WITH MEDICAL TREATMENT PRESENTING HAZARDS TO HEALTH 01/31/2009 MASHA CISNEROS APRNCY N 536.8 DYSPEPSIA 01/31/2009 JULIANA HENDERSON APRN, SHRADDHA N 787.91 diarrhea 01/31/2009 MASHA CISNEROS APRNCY N V15.81 PERSONAL HISTORY OF NONCOMPLIANCE WITH MEDICAL TREATMENT PRESENTING HAZARDS TO HEALTH 01/31/2009 NERISSA MARTINEZ APRN T 536.8 DYSPEPSIA 01/31/2009 NERISSA MARTINEZ APRN T 787.91 diarrhea 01/31/2009 NERISSA MARTINEZ APRN V15.81 PERSONAL HISTORY OF NONCOMPLIANCE WITH MEDICAL TREATMENT PRESENTING HAZARDS TO HEALTH 01/31/2009 RAFAELA PAREDES APRN S 536.8 DYSPEPSIA 01/31/2009 RAFAELA PAREDES APRN S 787.91 diarrhea 01/31/2009 RAFAELA PAREDES APRN S V15.81 PERSONAL HISTORY OF NONCOMPLIANCE WITH MEDICAL TREATMENT PRESENTING HAZARDS TO HEALTH 01/31/2009 JAVIER MARVIN, REAGAN Weldon 536.8 DYSPEPSIA 01/31/2009 JAVIER MARVIN, REAGAN Wel[place] 787.91 diarrhea 01/31/2009 REAGAN HERRERA PHD V15.81 PERSONAL HISTORY OF NONCOMPLIANCE WITH MEDICAL TREATMENT PRESENTING HAZARDS TO HEALTH 01/31/2009 REAGAN HERRERA PHD 536.8 DYSPEPSIA 01/31/2009 REAGAN HERRERA PHD 787.91 diarrhea 01/31/2009 REAGAN HERRERA PHD V15.81 PERSONAL HISTORY OF NONCOMPLIANCE WITH MEDICAL TREATMENT PRESENTING HAZARDS TO HEALTH 01/31/2009 LAITH NGUYEN APRN R 536.8 DYSPEPSIA 01/31/2009 LAITH NGUYEN APRN R 787.91 diarrhea 01/31/2009 LAITH NGUYEN APRN R V15.81 PERSONAL HISTORY OF NONCOMPLIANCE WITH MEDICAL TREATMENT PRESENTING HAZARDS TO HEALTH 01/31/2009 REAGAN HERRERA PHD 536.8 DYSPEPSIA 01/31/2009 REAGAN HERRERA PHD 787.91 diarrhea 01/31/2009 REAGAN HERRERA PHD V15.81 PERSONAL HISTORY OF NONCOMPLIANCE WITH MEDICAL TREATMENT PRESENTING HAZARDS TO HEALTH 01/31/2009 REAGAN HERRERA PHD 536.8 DYSPEPSIA 01/31/2009 REAGAN HERRERA PHD 787.91 diarrhea 01/31/2009 REAGAN HERRERA PHD V15.81 PERSONAL HISTORY OF NONCOMPLIANCE WITH MEDICAL TREATMENT PRESENTING HAZARDS TO HEALTH 01/31/2009 ZAKI QUINTANA APRN 536.8 DYSPEPSIA 01/31/2009 ZAKI QUINTANA APRN 787.91 diarrhea 01/31/2009 ZAKI QUINTANA APRN V15.81 PERSONAL HISTORY OF NONCOMPLIANCE WITH MEDICAL TREATMENT PRESENTING HAZARDS TO HEALTH 02/04/2009 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 02/04/2009 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 02/04/2009 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 02/04/2009 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 02/04/2009 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 02/04/2009 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 02/04/2009 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 02/04/2009 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 02/04/2009 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 02/04/2009 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 02/04/2009 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 02/04/2009 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 02/04/2009 SHRADDHA CISNEROS APRN 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 02/04/2009 ELIZABETH RODRIGUEZ, ESSIE 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 02/04/2009 WHITE DDS, ASIYA J 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 02/04/2009 LORENZO DDS, VIKRAM D 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 02/04/2009 ANDREWS CASHERO BARREL PLATER, SHRADDHA N 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 02/04/2009 ANDREWS CASHERO BARREL PLATER, SHRADDHA N 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 02/04/2009 JUAN BARREL PLATER, NERISSA T 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 02/04/2009 ANDREWS CASHERO BARREL PLATER, SHRADDHA N 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 02/04/2009 ANDREWS CASHERO BARREL PLATER, SHRADDHA N 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 02/04/2009 ANDREWS CASHERO BARREL PLATER, SHRADDHA N 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 02/04/2009 ANDREWS CASHERO BARREL PLATER, SHRADDHA N 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 02/04/2009 ANDREWS CASHERO BARREL PLATER, SHRADDHA N 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 02/04/2009 JUAN BARREL PLATER, NERISSA T 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 02/04/2009 LENA GARNER, RAFAELA S 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 02/04/2009 JAVIER PHD, REAGAN Weldon 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 02/04/2009 JAVIER PHD, REAGAN Weldon 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 02/04/2009 WENDY BARREL PLATER, LAITH R 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 02/04/2009 JAVIER PHD, REAGAN Weldon 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 02/04/2009 JAVIER PHD, REAGAN Weldon 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 02/04/2009 MARIANO BARREL PLATER, ZAKI J 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 04/04/2009 530.81 ESOPHAGEAL REFLUX 04/04/2009 682.6 CELLULITIS AND ABSCESS OF LEG EXCEPT FOOT 04/04/2009 789.01 ABDOMINAL PAIN RIGHT UPPER QUADRANT 04/04/2009 530.81 ESOPHAGEAL REFLUX 04/04/2009 682.6 CELLULITIS AND ABSCESS OF LEG EXCEPT FOOT 04/04/2009 789.01 ABDOMINAL PAIN RIGHT UPPER QUADRANT 04/04/2009 530.81 ESOPHAGEAL REFLUX 04/04/2009 682.6 CELLULITIS AND ABSCESS OF LEG EXCEPT FOOT 04/04/2009 789.01 ABDOMINAL PAIN RIGHT UPPER QUADRANT 04/04/2009 530.81 ESOPHAGEAL REFLUX 04/04/2009 682.6 CELLULITIS AND ABSCESS OF LEG EXCEPT FOOT 04/04/2009 789.01 ABDOMINAL PAIN RIGHT UPPER QUADRANT 04/04/2009 530.81 ESOPHAGEAL REFLUX 04/04/2009 682.6 CELLULITIS AND ABSCESS OF LEG EXCEPT FOOT 04/04/2009 789.01 ABDOMINAL PAIN RIGHT UPPER QUADRANT 04/04/2009 530.81 ESOPHAGEAL REFLUX 04/04/2009 682.6 CELLULITIS AND ABSCESS OF LEG EXCEPT FOOT 04/04/2009 789.01 ABDOMINAL PAIN RIGHT UPPER QUADRANT 04/04/2009 530.81 ESOPHAGEAL REFLUX 04/04/2009 682.6 CELLULITIS AND ABSCESS OF LEG EXCEPT FOOT 04/04/2009 789.01 ABDOMINAL PAIN RIGHT UPPER QUADRANT 04/04/2009 530.81 ESOPHAGEAL REFLUX 04/04/2009 682.6 CELLULITIS AND ABSCESS OF LEG EXCEPT FOOT 04/04/2009 789.01 ABDOMINAL PAIN RIGHT UPPER QUADRANT 04/04/2009 530.81 ESOPHAGEAL REFLUX 04/04/2009 682.6 CELLULITIS AND ABSCESS OF LEG EXCEPT FOOT 04/04/2009 789.01 ABDOMINAL PAIN RIGHT UPPER QUADRANT 04/04/2009 530.81 ESOPHAGEAL REFLUX 04/04/2009 682.6 CELLULITIS AND ABSCESS OF LEG EXCEPT FOOT 04/04/2009 789.01 ABDOMINAL PAIN RIGHT UPPER QUADRANT 04/04/2009 530.81 ESOPHAGEAL REFLUX 04/04/2009 682.6 CELLULITIS AND ABSCESS OF LEG EXCEPT FOOT 04/04/2009 789.01 ABDOMINAL PAIN RIGHT UPPER QUADRANT 04/04/2009 530.81 ESOPHAGEAL REFLUX 04/04/2009 682.6 CELLULITIS AND ABSCESS OF LEG EXCEPT FOOT 04/04/2009 789.01 ABDOMINAL PAIN RIGHT UPPER QUADRANT 04/04/2009 SHRADDHA CISNEROS APRN N 530.81 ESOPHAGEAL REFLUX 04/04/2009 SHRADDHA CISNEROS APRN N 682.6 CELLULITIS AND ABSCESS OF LEG EXCEPT FOOT 04/04/2009 SHRADDHA CISNEROS APRN N 789.01 ABDOMINAL PAIN RIGHT UPPER QUADRANT 04/04/2009 ESSIE JOHNSON MD 530.81 ESOPHAGEAL REFLUX 04/04/2009 ESSIE JOHNSON MD 682.6 CELLULITIS AND ABSCESS OF LEG EXCEPT FOOT 04/04/2009 ESSIE JOHNSON MD 789.01 ABDOMINAL PAIN RIGHT UPPER QUADRANT 04/04/2009 ASIYA VENTURA DDS 530.81 ESOPHAGEAL REFLUX 04/04/2009 ASIYA VENTURA DDS 682.6 CELLULITIS AND ABSCESS OF LEG EXCEPT FOOT 04/04/2009 WHITE DDS, ASIYA J 789.01 ABDOMINAL PAIN RIGHT UPPER QUADRANT 04/04/2009 WHITE DDS, VIKRAM D 530.81 ESOPHAGEAL REFLUX 04/04/2009 WHITE DDS, VIKRAM D 682.6 CELLULITIS AND ABSCESS OF LEG EXCEPT FOOT 04/04/2009 WHITE DDS, VIKRAM D 789.01 ABDOMINAL PAIN RIGHT UPPER QUADRANT 04/04/2009 ANDREWS CASHERO BARREL PLATER, SHRADDHA N 530.81 ESOPHAGEAL REFLUX 04/04/2009 ANDREWS CASHERO BARREL PLATER, SHRADDHA N 682.6 CELLULITIS AND ABSCESS OF LEG EXCEPT FOOT 04/04/2009 ANDREWS CASHERO BARREL PLATER, SHRADDHA N 789.01 ABDOMINAL PAIN RIGHT UPPER QUADRANT 04/04/2009 ANDREWS CASHERO BARREL PLATER, SHRADDHA N 530.81 ESOPHAGEAL REFLUX 04/04/2009 ANDREWS CASHERO BARREL PLATER, SHRADDHA N 682.6 CELLULITIS AND ABSCESS OF LEG EXCEPT FOOT 04/04/2009 ANDREWS CASHERO BARREL PLATER, SHRADDHA N 789.01 ABDOMINAL PAIN RIGHT UPPER QUADRANT 04/04/2009 NERISSA MARTINEZ APRN T 530.81 ESOPHAGEAL REFLUX 04/04/2009 NERISSA MARTINEZ APRN T 682.6 CELLULITIS AND ABSCESS OF LEG EXCEPT FOOT 04/04/2009 NERISSA MARTINEZ APRN T 789.01 ABDOMINAL PAIN RIGHT UPPER QUADRANT 04/04/2009 ANDREWS CASHERO BARREL PLATER, SHRADDHA N 530.81 ESOPHAGEAL REFLUX 04/04/2009 ANDREWS CASHERO BARREL PLATER, SHRADDHA N 682.6 CELLULITIS AND ABSCESS OF LEG EXCEPT FOOT 04/04/2009 ANDREWS CASHERO BARREL PLATER, SHRADDHA N 789.01 ABDOMINAL PAIN RIGHT UPPER QUADRANT 04/04/2009 ANDREWS CASHERO BARREL PLATER, SHRADDHA N 530.81 ESOPHAGEAL REFLUX 04/04/2009 ANDREWS CASHERO BARREL PLATER, SHRADDHA N 682.6 CELLULITIS AND ABSCESS OF LEG EXCEPT FOOT 04/04/2009 ANDREWS CASHERO BARREL PLATER, SHRADDHA N 789.01 ABDOMINAL PAIN RIGHT UPPER QUADRANT 04/04/2009 ANDREWS CASHERO BARREL PLATER, SHRADDHA N 530.81 ESOPHAGEAL REFLUX 04/04/2009 ANDREWS CASHERO BARREL PLATER, SHRADDHA N 682.6 CELLULITIS AND ABSCESS OF LEG EXCEPT FOOT 04/04/2009 ANDREWS CASHERO BARREL PLATER, SHRADDHA N 789.01 ABDOMINAL PAIN RIGHT UPPER QUADRANT 04/04/2009 ANDREWS CASHERO BARREL PLATER, SHRADDHA N 530.81 ESOPHAGEAL REFLUX 04/04/2009 JULIANA HENDERSON BARREL PLATER, SHRADDHA N 682.6 CELLULITIS AND ABSCESS OF LEG EXCEPT FOOT 04/04/2009 JULIANA HENDERSON BARREL PLATER, SHRADDHA N 789.01 ABDOMINAL PAIN RIGHT UPPER QUADRANT 04/04/2009 JULIANA HENDERSON BARREL PLATER, SHRADDHA N 530.81 ESOPHAGEAL REFLUX 04/04/2009 JULIANA HENDERSON BARREL PLATER, SHRADDHA N 682.6 CELLULITIS AND ABSCESS OF LEG EXCEPT FOOT 04/04/2009 JULIANA HENDERSON BARREL PLATER, SHRADDHA N 789.01 ABDOMINAL PAIN RIGHT UPPER QUADRANT 04/04/2009 NERISSA MARTINEZ APRN T 530.81 ESOPHAGEAL REFLUX 04/04/2009 NERISSA MARTINEZ APRN T 682.6 CELLULITIS AND ABSCESS OF LEG EXCEPT FOOT 04/04/2009 JUAN GARNER NERISSA T 789.01 ABDOMINAL PAIN RIGHT UPPER QUADRANT 04/04/2009 RAFAELA PAREDES APRN S 530.81 ESOPHAGEAL REFLUX 04/04/2009 LENA GARNER, RAFAELA S 682.6 CELLULITIS AND ABSCESS OF LEG EXCEPT FOOT 04/04/2009 LENA GARNER, RAFAELA S 789.01 ABDOMINAL PAIN RIGHT UPPER QUADRANT 04/04/2009 REAGAN HERRERA PHD 530.81 ESOPHAGEAL REFLUX 04/04/2009 REAGAN HERRERA PHD 682.6 CELLULITIS AND ABSCESS OF LEG EXCEPT FOOT 04/04/2009 REAGAN HERRERA PHD 789.01 ABDOMINAL PAIN RIGHT UPPER QUADRANT 04/04/2009 REAGAN HERRERA PHD 530.81 ESOPHAGEAL REFLUX 04/04/2009 REAGAN HERRERA PHD 682.6 CELLULITIS AND ABSCESS OF LEG EXCEPT FOOT 04/04/2009 REAGAN HERRERA PHD 789.01 ABDOMINAL PAIN RIGHT UPPER QUADRANT 04/04/2009 WENDY GARNER LAITH R 530.81 ESOPHAGEAL REFLUX 04/04/2009 WENDY GARNER, LAITH R 682.6 CELLULITIS AND ABSCESS OF LEG EXCEPT FOOT 04/04/2009 WENDY GARNER, LAITH R 789.01 ABDOMINAL PAIN RIGHT UPPER QUADRANT 04/04/2009 REAGAN HERRERA PHD 530.81 ESOPHAGEAL REFLUX 04/04/2009 REAGAN HERRERA PHD 682.6 CELLULITIS AND ABSCESS OF LEG EXCEPT FOOT 04/04/2009 REAGAN HERRERA PHD 789.01 ABDOMINAL PAIN RIGHT UPPER QUADRANT 04/04/2009 REAGAN HERRERA PHD 530.81 ESOPHAGEAL REFLUX 04/04/2009 JAVIER MARVIN, REAGAN [place] 682.6 CELLULITIS AND ABSCESS OF LEG EXCEPT FOOT 04/04/2009 JAVIER MARVIN, REAGAN [place] 789.01 ABDOMINAL PAIN RIGHT UPPER QUADRANT 04/04/2009 ZAKI QUINTANA APRN 530.81 ESOPHAGEAL REFLUX 04/04/2009 ZAKI QUINTANA APRN 682.6 CELLULITIS AND ABSCESS OF LEG EXCEPT FOOT 04/04/2009 ZAKI QUINTANA APRN 789.01 ABDOMINAL PAIN RIGHT UPPER QUADRANT 05/06/2009 110.3 DERMATOPHYTOSIS OF GROIN AND PERIANAL AREA 05/06/2009 110.3 DERMATOPHYTOSIS OF GROIN AND PERIANAL AREA 05/06/2009 110.3 DERMATOPHYTOSIS OF GROIN AND PERIANAL AREA 05/06/2009 110.3 DERMATOPHYTOSIS OF GROIN AND PERIANAL AREA 05/06/2009 110.3 DERMATOPHYTOSIS OF GROIN AND PERIANAL AREA 05/06/2009 110.3 DERMATOPHYTOSIS OF GROIN AND PERIANAL AREA 05/06/2009 110.3 DERMATOPHYTOSIS OF GROIN AND PERIANAL AREA 05/06/2009 110.3 DERMATOPHYTOSIS OF GROIN AND PERIANAL AREA 05/06/2009 110.3 DERMATOPHYTOSIS OF GROIN AND PERIANAL AREA 05/06/2009 110.3 DERMATOPHYTOSIS OF GROIN AND PERIANAL AREA 05/06/2009 110.3 DERMATOPHYTOSIS OF GROIN AND PERIANAL AREA 05/06/2009 110.3 DERMATOPHYTOSIS OF GROIN AND PERIANAL AREA 05/06/2009 SHRADDHA CISNEROS APRN N 110.3 DERMATOPHYTOSIS OF GROIN AND PERIANAL AREA 05/06/2009 ELIZABETH RODRIGUEZ, ESSIE 110.3 DERMATOPHYTOSIS OF GROIN AND PERIANAL AREA 05/06/2009 ASIYA VENTURA DDS 110.3 DERMATOPHYTOSIS OF GROIN AND PERIANAL AREA 05/06/2009 VIKRAM VENTURA DDS 110.3 DERMATOPHYTOSIS OF GROIN AND PERIANAL AREA 05/06/2009 SHRADDHA CISNEROS APRN N 110.3 DERMATOPHYTOSIS OF GROIN AND PERIANAL AREA 05/06/2009 SHRADDHA CISNEROS APRN N 110.3 DERMATOPHYTOSIS OF GROIN AND PERIANAL AREA 05/06/2009 NERISSA MARTINEZ APRN T 110.3 DERMATOPHYTOSIS OF GROIN AND PERIANAL AREA 05/06/2009 ANDREWS CASHERO BARREL PLATER, SHRADDHA N 110.3 DERMATOPHYTOSIS OF GROIN AND PERIANAL AREA 05/06/2009 ANDREWS CASHERO BARREL PLATER, SHRADDHA N 110.3 DERMATOPHYTOSIS OF GROIN AND PERIANAL AREA 05/06/2009 ANDREWS CASHERO BARREL PLATER, SHRADDHA N 110.3 DERMATOPHYTOSIS OF GROIN AND PERIANAL AREA 05/06/2009 ANDREWS CASHERO BARREL PLATER, SHRADDHA N 110.3 DERMATOPHYTOSIS OF GROIN AND PERIANAL AREA 05/06/2009 ANDREWS CASHERO BARREL PLATER, SHRADDHA N 110.3 DERMATOPHYTOSIS OF GROIN AND PERIANAL AREA 05/06/2009 NERISSA MARTINEZ APRN 110.3 DERMATOPHYTOSIS OF GROIN AND PERIANAL AREA 05/06/2009 RAFAELA PAREDES APRN 110.3 DERMATOPHYTOSIS OF GROIN AND PERIANAL AREA 05/06/2009 JAVIER MARVIN, REAGAN [place] 110.3 DERMATOPHYTOSIS OF GROIN AND PERIANAL AREA 05/06/2009 JAVIER MARVIN, REAGAN [place] 110.3 DERMATOPHYTOSIS OF GROIN AND PERIANAL AREA 05/06/2009 LAITH NGUYEN APRN 110.3 DERMATOPHYTOSIS OF GROIN AND PERIANAL AREA 05/06/2009 JAVIER MARVIN, REAGAN [place] 110.3 DERMATOPHYTOSIS OF GROIN AND PERIANAL AREA 05/06/2009 JAVIER MARVIN, REAGAN [place] 110.3 DERMATOPHYTOSIS OF GROIN AND PERIANAL AREA 05/06/2009 ZAKI QUINTANA APRN 110.3 DERMATOPHYTOSIS OF GROIN AND PERIANAL AREA 06/17/2009 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 06/17/2009 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 06/17/2009 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 06/17/2009 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 06/17/2009 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 06/17/2009 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 06/17/2009 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 06/17/2009 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 06/17/2009 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 06/17/2009 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 06/17/2009 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 06/17/2009 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 06/17/2009 ANDREWS CASHERO BARREL PLATER, SHRADDHA N 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 06/17/2009 ELIZABETH RODRIGUEZ, ESSIE 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 06/17/2009 WHITE DDS, ASIYA Frederick 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 06/17/2009 WHITE DDS, VIKRAM Weldon 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 06/17/2009 ANDREWS CASHERO BARREL PLATER, SHRADDHA N 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 06/17/2009 ANDREWS CASHERO BARREL PLATER, SHRADDHA N 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 06/17/2009 NERISSA MARTINEZ APRN 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 06/17/2009 ANDREWS CASHERO BARREL PLATER, SHRADDHA N 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 06/17/2009 ANDREWS CASHERO BARREL PLATER, SHRADDHA N 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 06/17/2009 ANDREWS CASHERO BARREL PLATER, SHRADDHA N 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 06/17/2009 ANDREWS CASHERO BARREL PLATER, SHRADDHA N 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 06/17/2009 ANDREWS CASHERO BARREL PLATER, SHRADDHA N 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 06/17/2009 NERISSA MARTINEZ APRN 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 06/17/2009 RAFAELA PAREDES APRN 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 06/17/2009 JAVIER MARVIN, REAGAN Weldon 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 06/17/2009 JAVIER MARVIN, REAGAN Weldon 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 06/17/2009 LIATH NGUYEN APRN 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 06/17/2009 JAVIER MARVIN, REAGAN Weldon 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 06/17/2009 JAVIER MARVIN, REAGAN Weldon 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 06/17/2009 ZAKI QUINTANA APRN 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 07/03/2009 789.00 ABDOMINAL PAIN UNSPECIFIED SITE 07/03/2009 789.00 ABDOMINAL PAIN UNSPECIFIED SITE 07/03/2009 789.00 ABDOMINAL PAIN UNSPECIFIED SITE 07/03/2009 789.00 ABDOMINAL PAIN UNSPECIFIED SITE 07/03/2009 789.00 ABDOMINAL PAIN UNSPECIFIED SITE 07/03/2009 789.00 ABDOMINAL PAIN UNSPECIFIED SITE 07/03/2009 789.00 ABDOMINAL PAIN UNSPECIFIED SITE 07/03/2009 789.00 ABDOMINAL PAIN UNSPECIFIED SITE 07/03/2009 789.00 ABDOMINAL PAIN UNSPECIFIED SITE 07/03/2009 789.00 ABDOMINAL PAIN UNSPECIFIED SITE 07/03/2009 789.00 ABDOMINAL PAIN UNSPECIFIED SITE 07/03/2009 789.00 ABDOMINAL PAIN UNSPECIFIED SITE 07/03/2009 ANDREWS CASHERO BARREL PLATER, SHRADDHA N 789.00 ABDOMINAL PAIN UNSPECIFIED SITE 07/03/2009 ESSIE JOHNSON MD 789.00 ABDOMINAL PAIN UNSPECIFIED SITE 07/03/2009 ASIYA VENTURA DDS 789.00 ABDOMINAL PAIN UNSPECIFIED SITE 07/03/2009 VIKRAM VENTURA DDS 789.00 ABDOMINAL PAIN UNSPECIFIED SITE 07/03/2009 ANDREWS CASHERO BARREL PLATER, SHRADDHA N 789.00 ABDOMINAL PAIN UNSPECIFIED SITE 07/03/2009 ANDREWS CASHERO BARREL PLATER, SHRADDHA N 789.00 ABDOMINAL PAIN UNSPECIFIED SITE 07/03/2009 NERISSA MARTINEZ APRN 789.00 ABDOMINAL PAIN UNSPECIFIED SITE 07/03/2009 ANDREWS CASHERO BARREL PLATER, SHRADDHA N 789.00 ABDOMINAL PAIN UNSPECIFIED SITE 07/03/2009 ANDREWS CASHERO BARREL PLATER, SHRADDHA N 789.00 ABDOMINAL PAIN UNSPECIFIED SITE 07/03/2009 ANDREWS CASHERO BARREL PLATER, SHRADDHA N 789.00 ABDOMINAL PAIN UNSPECIFIED SITE 07/03/2009 ANDREWS CASHERO BARREL PLATER, SHRADDHA N 789.00 ABDOMINAL PAIN UNSPECIFIED SITE 07/03/2009 ANDREWS CASHERO BARREL PLATER, SHRADDHA N 789.00 ABDOMINAL PAIN UNSPECIFIED SITE 07/03/2009 NERISSA MARTINEZ APRN T 789.00 ABDOMINAL PAIN UNSPECIFIED SITE 07/03/2009 RAFAELA PAREDES APRN 789.00 ABDOMINAL PAIN UNSPECIFIED SITE 07/03/2009 JAVIER MARVIN, REAGAN Weldon 789.00 ABDOMINAL PAIN UNSPECIFIED SITE 07/03/2009 JAVIER MARVIN, REAGAN Weldon 789.00 ABDOMINAL PAIN UNSPECIFIED SITE 07/03/2009 LAITH NGUYEN APRN R 789.00 ABDOMINAL PAIN UNSPECIFIED SITE 07/03/2009 JAVIER MARVIN, REAGAN Weldon 789.00 ABDOMINAL PAIN UNSPECIFIED SITE 07/03/2009 JAVIER MARVIN, REAGAN Weldon 789.00 ABDOMINAL PAIN UNSPECIFIED SITE 07/03/2009 ZAKI QUINTANA APRN 789.00 ABDOMINAL PAIN UNSPECIFIED SITE 08/27/2009 564.1 IRRITABLE BOWEL SYNDROME 08/27/2009 564.1 IRRITABLE BOWEL SYNDROME 08/27/2009 564.1 IRRITABLE BOWEL SYNDROME 08/27/2009 564.1 IRRITABLE BOWEL SYNDROME 08/27/2009 564.1 IRRITABLE BOWEL SYNDROME 08/27/2009 564.1 IRRITABLE BOWEL SYNDROME 08/27/2009 564.1 IRRITABLE BOWEL SYNDROME 08/27/2009 564.1 IRRITABLE BOWEL SYNDROME 08/27/2009 564.1 IRRITABLE BOWEL SYNDROME 08/27/2009 564.1 IRRITABLE BOWEL SYNDROME 08/27/2009 564.1 IRRITABLE BOWEL SYNDROME 08/27/2009 564.1 IRRITABLE BOWEL SYNDROME 08/27/2009 ANDREWS CASHGURWINDER BARREL PLATER, SHRADDHA N 564.1 IRRITABLE BOWEL SYNDROME 08/27/2009 ESSIE JOHNSON MD 564.1 IRRITABLE BOWEL SYNDROME 08/27/2009 ASIYA VENTURA DDS 564.1 IRRITABLE BOWEL SYNDROME 08/27/2009 LORENZO PAYNESVIKRAM 564.1 IRRITABLE BOWEL SYNDROME 08/27/2009 ANDREWS CASHERO BARREL PLATER, SHRADDHA N 564.1 IRRITABLE BOWEL SYNDROME 08/27/2009 ANDREWS CASHERO BARREL PLATER, SHRADDHA N 564.1 IRRITABLE BOWEL SYNDROME 08/27/2009 NERISSA MARTINEZ APRN 564.1 IRRITABLE BOWEL SYNDROME 08/27/2009 ANDREWS CASHERO BARREL PLATER, SHRADDHA N 564.1 IRRITABLE BOWEL SYNDROME 08/27/2009 ANDREWS CASHERO BARREL PLATER, SHRADDHA N 564.1 IRRITABLE BOWEL SYNDROME 08/27/2009 ANDREWS CASHERO BARREL PLATER, SHRADDHA N 564.1 IRRITABLE BOWEL SYNDROME 08/27/2009 ANDREWS CASHERO BARREL PLATER, SHRADDHA N 564.1 IRRITABLE BOWEL SYNDROME 08/27/2009 ANDREWS CASHERO BARREL PLATER, SHRADDHA N 564.1 IRRITABLE BOWEL SYNDROME 08/27/2009 NERISSA MARTINEZ APRN 564.1 IRRITABLE BOWEL SYNDROME 08/27/2009 RAFAELA PAREDES APRN 564.1 IRRITABLE BOWEL SYNDROME 08/27/2009 JAVIER PHD, REAGAN Weldon 564.1 IRRITABLE BOWEL SYNDROME 08/27/2009 JAVIER PHD, REAGAN Weldon 564.1 IRRITABLE BOWEL SYNDROME 08/27/2009 LAITH NGUEYN APRN 564.1 IRRITABLE BOWEL SYNDROME 08/27/2009 JAVIER PHD, REAGAN Weldon 564.1 IRRITABLE BOWEL SYNDROME 08/27/2009 JAVIER PHD, REAGAN Weldon 564.1 IRRITABLE BOWEL SYNDROME 08/27/2009 ZAKI QUINTANA APRN 564.1 IRRITABLE BOWEL SYNDROME 09/16/2009 465.9 ACUTE UPPER RESPIRATORY INFECTIONS OF UNSPECIFIED SITE 09/16/2009 465.9 ACUTE UPPER RESPIRATORY INFECTIONS OF UNSPECIFIED SITE 09/16/2009 465.9 ACUTE UPPER RESPIRATORY INFECTIONS OF UNSPECIFIED SITE 09/16/2009 465.9 ACUTE UPPER RESPIRATORY INFECTIONS OF UNSPECIFIED SITE 09/16/2009 465.9 ACUTE UPPER RESPIRATORY INFECTIONS OF UNSPECIFIED SITE 09/16/2009 465.9 ACUTE UPPER RESPIRATORY INFECTIONS OF UNSPECIFIED SITE 09/16/2009 465.9 ACUTE UPPER RESPIRATORY INFECTIONS OF UNSPECIFIED SITE 09/16/2009 465.9 ACUTE UPPER RESPIRATORY INFECTIONS OF UNSPECIFIED SITE 09/16/2009 465.9 ACUTE UPPER RESPIRATORY INFECTIONS OF UNSPECIFIED SITE 09/16/2009 465.9 ACUTE UPPER RESPIRATORY INFECTIONS OF UNSPECIFIED SITE 09/16/2009 465.9 ACUTE UPPER RESPIRATORY INFECTIONS OF UNSPECIFIED SITE 09/16/2009 465.9 ACUTE UPPER RESPIRATORY INFECTIONS OF UNSPECIFIED SITE 09/16/2009 MASHA CISNEROS APRNCY N 465.9 ACUTE UPPER RESPIRATORY INFECTIONS OF UNSPECIFIED SITE 09/16/2009 ELIZABETH RODRIGUEZ, ESSIE 465.9 ACUTE UPPER RESPIRATORY INFECTIONS OF UNSPECIFIED SITE 09/16/2009 ASIYA VENTURA DDS 465.9 ACUTE UPPER RESPIRATORY INFECTIONS OF UNSPECIFIED SITE 09/16/2009 VIKRAM VENTURA DDS 465.9 ACUTE UPPER RESPIRATORY INFECTIONS OF UNSPECIFIED SITE 09/16/2009 JULIANA HENDERSON APRN, SHRADDHA N 465.9 ACUTE UPPER RESPIRATORY INFECTIONS OF UNSPECIFIED SITE 09/16/2009 JULIANA HENDERSON APRN, SHRADDHA N 465.9 ACUTE UPPER RESPIRATORY INFECTIONS OF UNSPECIFIED SITE 09/16/2009 NERISSA MARTINEZ APRN 465.9 ACUTE UPPER RESPIRATORY INFECTIONS OF UNSPECIFIED SITE 09/16/2009 JULIANA HENDERSON APRN SHRADDHA N 465.9 ACUTE UPPER RESPIRATORY INFECTIONS OF UNSPECIFIED SITE 09/16/2009 ANDREWS CASHERO BARREL PLATER, SHRADDHA N 465.9 ACUTE UPPER RESPIRATORY INFECTIONS OF UNSPECIFIED SITE 09/16/2009 ANDREWS CASHERO BARREL PLATER, SHRADDHA N 465.9 ACUTE UPPER RESPIRATORY INFECTIONS OF UNSPECIFIED SITE 09/16/2009 ANDREWS CASHERO BARREL PLATER, SHRADDHA N 465.9 ACUTE UPPER RESPIRATORY INFECTIONS OF UNSPECIFIED SITE 09/16/2009 ANDREWS CASHERO BARREL PLATER, SHRADDHA N 465.9 ACUTE UPPER RESPIRATORY INFECTIONS OF UNSPECIFIED SITE 09/16/2009 NERISSA MARTINEZ APRN 465.9 ACUTE UPPER RESPIRATORY INFECTIONS OF UNSPECIFIED SITE 09/16/2009 LENA BLASNRAFAELA 465.9 ACUTE UPPER RESPIRATORY INFECTIONS OF UNSPECIFIED SITE 09/16/2009 JAVIER MARVNI, REAGAN Weldon 465.9 ACUTE UPPER RESPIRATORY INFECTIONS OF UNSPECIFIED SITE 09/16/2009 REAGAN HERRERA PHD 465.9 ACUTE UPPER RESPIRATORY INFECTIONS OF UNSPECIFIED SITE 09/16/2009 LAITH NGUYEN APRN 465.9 ACUTE UPPER RESPIRATORY INFECTIONS OF UNSPECIFIED SITE 09/16/2009 REAGAN HERRERA PHD 465.9 ACUTE UPPER RESPIRATORY INFECTIONS OF UNSPECIFIED SITE 09/16/2009 REAGAN HERRERA PHD 465.9 ACUTE UPPER RESPIRATORY INFECTIONS OF UNSPECIFIED SITE 09/16/2009 ZAKI QUINTANA APRN 465.9 ACUTE UPPER RESPIRATORY INFECTIONS OF UNSPECIFIED SITE 09/30/2009 607.1 BALANOPOSTHITIS 09/30/2009 607.1 BALANOPOSTHITIS 09/30/2009 607.1 BALANOPOSTHITIS 09/30/2009 607.1 BALANOPOSTHITIS 09/30/2009 607.1 BALANOPOSTHITIS 09/30/2009 607.1 BALANOPOSTHITIS 09/30/2009 607.1 BALANOPOSTHITIS 09/30/2009 607.1 BALANOPOSTHITIS 09/30/2009 607.1 BALANOPOSTHITIS 09/30/2009 607.1 BALANOPOSTHITIS 09/30/2009 607.1 BALANOPOSTHITIS 09/30/2009 607.1 BALANOPOSTHITIS 09/30/2009 JULIANA HENDERSON APRN, SHRADDHA N 607.1 BALANOPOSTHITIS 09/30/2009 ELIZABETH RODRIGUEZ, ESSIE 607.1 BALANOPOSTHITIS 09/30/2009 LORENZO DDS, ASIYA Frederick 607.1 BALANOPOSTHITIS 09/30/2009 WHITE DDS, VIKRAM Weldon 607.1 BALANOPOSTHITIS 09/30/2009 ANDREWS CASHERO BARREL PLATER, SHRADDHA N 607.1 BALANOPOSTHITIS 09/30/2009 ANDREWS CASHERO BARREL PLATER, SHRADDHA N 607.1 BALANOPOSTHITIS 09/30/2009 NERISSA MARTINEZ APRN 607.1 BALANOPOSTHITIS 09/30/2009 ANDREWS CASHERO BARREL PLATER, SHRADDHA N 607.1 BALANOPOSTHITIS 09/30/2009 ANDREWS CASHERO BARREL PLATER, SHRADDHA N 607.1 BALANOPOSTHITIS 09/30/2009 ANDREWS CASHERO BARREL PLATER, SHRADDHA N 607.1 BALANOPOSTHITIS 09/30/2009 ANDREWS CASHERO BARREL PLATER, SHRADDHA N 607.1 BALANOPOSTHITIS 09/30/2009 ANDREWS CASHERO BARREL PLATER, SHRADDHA N 607.1 BALANOPOSTHITIS 09/30/2009 NERISSA MARTINEZ APRN 607.1 BALANOPOSTHITIS 09/30/2009 LENA GARNER, RAFAELA Soriano 607.1 BALANOPOSTHITIS 09/30/2009 JAVIER PHD, REAGAN Weldon 607.1 BALANOPOSTHITIS 09/30/2009 JAVIER PHD, REAGAN Weldon 607.1 BALANOPOSTHITIS 09/30/2009 LAITH NGUYEN APRN 607.1 BALANOPOSTHITIS 09/30/2009 JAVIER PHD, REAGAN Weldon 607.1 BALANOPOSTHITIS 09/30/2009 JAVIER MARVIN, REAGAN Weldon 607.1 BALANOPOSTHITIS 09/30/2009 ZAKI QUINTANA APRN 607.1 BALANOPOSTHITIS 02/24/2010 462 PHARYNGITIS ACUTE 02/24/2010 780.57 SLEEP APNEA 02/24/2010 462 PHARYNGITIS ACUTE 02/24/2010 780.57 SLEEP APNEA 02/24/2010 462 PHARYNGITIS ACUTE 02/24/2010 780.57 SLEEP APNEA 02/24/2010 462 PHARYNGITIS ACUTE 02/24/2010 780.57 SLEEP APNEA 02/24/2010 462 PHARYNGITIS ACUTE 02/24/2010 780.57 SLEEP APNEA 02/24/2010 462 PHARYNGITIS ACUTE 02/24/2010 780.57 SLEEP APNEA 02/24/2010 462 PHARYNGITIS ACUTE 02/24/2010 780.57 SLEEP APNEA 02/24/2010 462 PHARYNGITIS ACUTE 02/24/2010 780.57 SLEEP APNEA 02/24/2010 462 PHARYNGITIS ACUTE 02/24/2010 780.57 SLEEP APNEA 02/24/2010 462 PHARYNGITIS ACUTE 02/24/2010 780.57 SLEEP APNEA 02/24/2010 462 PHARYNGITIS ACUTE 02/24/2010 780.57 SLEEP APNEA 02/24/2010 462 PHARYNGITIS ACUTE 02/24/2010 780.57 SLEEP APNEA 02/24/2010 SHRADDHA CISNEROS APRN N 462 PHARYNGITIS ACUTE 02/24/2010 SHRADDHA CISNEROS APRN N 780.57 SLEEP APNEA 02/24/2010 ESSIE JOHNSON MD 462 PHARYNGITIS ACUTE 02/24/2010 ESSIE JOHNSON MD 780.57 SLEEP APNEA 02/24/2010 ASIYA VENTURA DDS 462 PHARYNGITIS ACUTE 02/24/2010 ASIYA VENTURA DDS 780.57 SLEEP APNEA 02/24/2010 VIKRAM VENTURA DDS 462 PHARYNGITIS ACUTE 02/24/2010 VIKRAM VNETURA DDS 780.57 SLEEP APNEA 02/24/2010 SHRADDHA CISNEROS APRN N 462 PHARYNGITIS ACUTE 02/24/2010 SHRADDHA CISNEROS APRN N 780.57 SLEEP APNEA 02/24/2010 SHRADDHA CISNEROS APRN N 462 PHARYNGITIS ACUTE 02/24/2010 MASHA CISNEROS APRNCY N 780.57 SLEEP APNEA 02/24/2010 NERISSA MARTINEZ APRN 462 PHARYNGITIS ACUTE 02/24/2010 NERISSA MARTINEZ APRN 780.57 SLEEP APNEA 02/24/2010 MASHA CISNEROS APRNCY N 462 PHARYNGITIS ACUTE 02/24/2010 MASHA CISNEROS APRNCY N 780.57 SLEEP APNEA 02/24/2010 MASHA CISNEROS APRNCY N 462 PHARYNGITIS ACUTE 02/24/2010 ANDREWS CASHERO BARREL PLATER, SHRADDHA N 780.57 SLEEP APNEA 02/24/2010 ANDREWS CASHERO BARREL PLATER, SHRADDHA N 462 PHARYNGITIS ACUTE 02/24/2010 ANDREWS CASHERO BARREL PLATER, SHRADDHA N 780.57 SLEEP APNEA 02/24/2010 ANDREWS CASHERO BARREL PLATER, SHRADDHA N 462 PHARYNGITIS ACUTE 02/24/2010 ANDREWS CASHERO BARREL PLATER, SHRADDHA N 780.57 SLEEP APNEA 02/24/2010 ANDREWS CASHERO BARREL PLATER, SHRADDHA N 462 PHARYNGITIS ACUTE 02/24/2010 ANDREWS CASHERO BARREL PLATER, SHRADDHA N 780.57 SLEEP APNEA 02/24/2010 JUAN BARREL PLATER, NERISSA T 462 PHARYNGITIS ACUTE 02/24/2010 JUAN BARREL PLATER, NERISSA T 780.57 SLEEP APNEA 02/24/2010 LENA GARNER, RAFAELA S 462 PHARYNGITIS ACUTE 02/24/2010 LENA GARNER, RAFAELA S 780.57 SLEEP APNEA 02/24/2010 JAVIER MARVIN, REAGAN Weldon 462 PHARYNGITIS ACUTE 02/24/2010 JAVIER MARVIN, REAGAN Weldon 780.57 SLEEP APNEA 02/24/2010 REAGAN HERRERA PHD 462 PHARYNGITIS ACUTE 02/24/2010 REAGAN HERRERA PHD 780.57 SLEEP APNEA 02/24/2010 WENDY GARNER LAITH R 462 PHARYNGITIS ACUTE 02/24/2010 WENDY GRANER LAITH R 780.57 SLEEP APNEA 02/24/2010 REAGAN HERRERA PHD 462 PHARYNGITIS ACUTE 02/24/2010 JAVIER MARVIN, REAGAN Weldon 780.57 SLEEP APNEA 02/24/2010 REAGAN HERRERA PHD 462 PHARYNGITIS ACUTE 02/24/2010 JAVIER MARVIN, REAGAN Weldon 780.57 SLEEP APNEA 02/24/2010 ZAKI QUINTANA APRN 462 PHARYNGITIS ACUTE 02/24/2010 ZAKI QUINTANA APRN 780.57 SLEEP APNEA 08/28/2010 380.10 OTITIS EXTERNA 08/28/2010 466.0 ACUTE BRONCHITIS 08/28/2010 380.10 OTITIS EXTERNA 08/28/2010 466.0 ACUTE BRONCHITIS 08/28/2010 380.10 OTITIS EXTERNA 08/28/2010 466.0 ACUTE BRONCHITIS 08/28/2010 380.10 OTITIS EXTERNA 08/28/2010 466.0 ACUTE BRONCHITIS 08/28/2010 380.10 OTITIS EXTERNA 08/28/2010 466.0 ACUTE BRONCHITIS 08/28/2010 380.10 OTITIS EXTERNA 08/28/2010 466.0 ACUTE BRONCHITIS 08/28/2010 380.10 OTITIS EXTERNA 08/28/2010 466.0 ACUTE BRONCHITIS 08/28/2010 380.10 OTITIS EXTERNA 08/28/2010 466.0 ACUTE BRONCHITIS 08/28/2010 380.10 OTITIS EXTERNA 08/28/2010 466.0 ACUTE BRONCHITIS 08/28/2010 380.10 OTITIS EXTERNA 08/28/2010 466.0 ACUTE BRONCHITIS 08/28/2010 380.10 OTITIS EXTERNA 08/28/2010 466.0 ACUTE BRONCHITIS 08/28/2010 380.10 OTITIS EXTERNA 08/28/2010 466.0 ACUTE BRONCHITIS 08/28/2010 ANDREWS CASHERO BARREL PLATER, SHRADDHA N 380.10 OTITIS EXTERNA 08/28/2010 ANDREWS CASHERO BARREL PLATER, SHRADDHA N 466.0 ACUTE BRONCHITIS 08/28/2010 ESSIE JOHNSON MD 380.10 OTITIS EXTERNA 08/28/2010 ESSIE JOHNSON MD 466.0 ACUTE BRONCHITIS 08/28/2010 WHITE DDS, ASIYA J 380.10 OTITIS EXTERNA 08/28/2010 WHITE DDS, ASIYA J 466.0 ACUTE BRONCHITIS 08/28/2010 WHITE DDS, VIKRAM D 380.10 OTITIS EXTERNA 08/28/2010 WHITE DDS, VIKRAM D 466.0 ACUTE BRONCHITIS 08/28/2010 ANDREWS CASHERO BARREL PLATER, SHRADDHA N 380.10 OTITIS EXTERNA 08/28/2010 ANDREWS CASHERO BARREL PLATER, SHRADDHA N 466.0 ACUTE BRONCHITIS 08/28/2010 ANDREWS CASHERO BARREL PLATER, SHRADDHA N 380.10 OTITIS EXTERNA 08/28/2010 ANDREWS CASHERO BARREL PLATER, SHRADDHA N 466.0 ACUTE BRONCHITIS 08/28/2010 NERISSA MARTINEZ APRN 380.10 OTITIS EXTERNA 08/28/2010 NERISSA MARTINEZ APRN 466.0 ACUTE BRONCHITIS 08/28/2010 ANDREWS CASHERO BARREL PLATER, SHRADDHA N 380.10 OTITIS EXTERNA 08/28/2010 ANDREWS CASHERO BARREL PLATER, SHRADDHA N 466.0 ACUTE BRONCHITIS 08/28/2010 ANDREWS CASHERO BARREL PLATER, SHRADDHA N 380.10 OTITIS EXTERNA 08/28/2010 ANDREWS CASHERO BARREL PLATER, SHRADDHA N 466.0 ACUTE BRONCHITIS 08/28/2010 ANDREWS CASHERO BARREL PLATER, SHRADDHA N 380.10 OTITIS EXTERNA 08/28/2010 ANDREWS CASHERO BARREL PLATER, SHRADDHA N 466.0 ACUTE BRONCHITIS 08/28/2010 ANDREWS CASHERO BARREL PLATER, SHRADDHA N 380.10 OTITIS EXTERNA 08/28/2010 ANDREWS CASHERO BARREL PLATER, SHRADDHA N 466.0 ACUTE BRONCHITIS 08/28/2010 ANDREWS CASHERO BARREL PLATER, SHRADDHA N 380.10 OTITIS EXTERNA 08/28/2010 ANDREWS CASHERO BARREL PLATER, SHRADDHA N 466.0 ACUTE BRONCHITIS 08/28/2010 JUAN BARREL PLATER, NERISSA T 380.10 OTITIS EXTERNA 08/28/2010 JUAN BARREL PLATER, NERISSA T 466.0 ACUTE BRONCHITIS 08/28/2010 LENA BARREL PLATER, RAFAELA S 380.10 OTITIS EXTERNA 08/28/2010 LENA BARREL PLATER, RAFAELA S 466.0 ACUTE BRONCHITIS 08/28/2010 JAVIER MARVIN, REAGAN Weldon 380.10 OTITIS EXTERNA 08/28/2010 JAVIER MARVIN, REAGAN Weldon 466.0 ACUTE BRONCHITIS 08/28/2010 JAVIER MARVIN, REAGAN Weldon 380.10 OTITIS EXTERNA 08/28/2010 JAVIER MARVIN, REAGAN Weldon 466.0 ACUTE BRONCHITIS 08/28/2010 WENDY BARREL PLATER, LAITH R 380.10 OTITIS EXTERNA 08/28/2010 WENDY BLASN, LAITH R 466.0 ACUTE BRONCHITIS 08/28/2010 JAVIER MARVIN, REAGAN Weldon 380.10 OTITIS EXTERNA 08/28/2010 JAVIER MARVIN, REAGAN Weldon 466.0 ACUTE BRONCHITIS 08/28/2010 JAVIER MARVIN, REAGAN Weldon 380.10 OTITIS EXTERNA 08/28/2010 JAVIER MARVIN, REAGAN Weldon 466.0 ACUTE BRONCHITIS 08/28/2010 ZAKI QUINTANA APRN J 380.10 OTITIS EXTERNA 08/28/2010 ZAKI QUINTANA APRN J 466.0 ACUTE BRONCHITIS 09/05/2010 250.00 DIABETES II CONTROLLED 09/05/2010 250.00 DIABETES II CONTROLLED 09/05/2010 250.00 DIABETES II CONTROLLED 09/05/2010 250.00 DIABETES II CONTROLLED 09/05/2010 250.00 DIABETES II CONTROLLED 09/05/2010 250.00 DIABETES II CONTROLLED 09/05/2010 250.00 DIABETES II CONTROLLED 09/05/2010 250.00 DIABETES II CONTROLLED 09/05/2010 250.00 DIABETES II CONTROLLED 09/05/2010 250.00 DIABETES II CONTROLLED 09/05/2010 250.00 DIABETES II CONTROLLED 09/05/2010 250.00 DIABETES II CONTROLLED 09/05/2010 ANDREWS CASHERO BARREL PLATER, SHRADDHA N 250.00 DIABETES II CONTROLLED 09/05/2010 ESSIE JOHNSON MD 250.00 DIABETES II CONTROLLED 09/05/2010 ASIYA VENTURA DDS 250.00 DIABETES II CONTROLLED 09/05/2010 LORENZO PAYNESVIKRAM 250.00 DIABETES II CONTROLLED 09/05/2010 ANDREWS CASHERO BARREL PLATER, SHRDADHA N 250.00 DIABETES II CONTROLLED 09/05/2010 ANDREWS CASHERO BARREL PLATER, SHRADDHA N 250.00 DIABETES II CONTROLLED 09/05/2010 NERISSA MARTINEZ APRN 250.00 DIABETES II CONTROLLED 09/05/2010 ANDREWS CASHERO BARREL PLATER, SHRADDHA N 250.00 DIABETES II CONTROLLED 09/05/2010 ANDREWS CASHERO BARREL PLATER, SHRADDHA N 250.00 DIABETES II CONTROLLED 09/05/2010 ANDREWS CASHERO BARREL PLATER, SHRADDHA N 250.00 DIABETES II CONTROLLED 09/05/2010 ANDREWS CASHERO BARREL PLATER, SHRADDHA N 250.00 DIABETES II CONTROLLED 09/05/2010 ANDREWS CASHERO BARREL PLATER, SHRADDHA N 250.00 DIABETES II CONTROLLED 09/05/2010 NERISSA MARTINEZ APRN 250.00 DIABETES II CONTROLLED 09/05/2010 RAFAELA PAREDES APRN 250.00 DIABETES II CONTROLLED 09/05/2010 REAGAN HERRERA PHD 250.00 DIABETES II CONTROLLED 09/05/2010 JAVIER MARVIN, REAGAN Weldon 250.00 DIABETES II CONTROLLED 09/05/2010 LAITH NGUYEN APRN 250.00 DIABETES II CONTROLLED 09/05/2010 REAGAN HERRERA PHD 250.00 DIABETES II CONTROLLED 09/05/2010 REAGAN HERRERA PHD 250.00 DIABETES II CONTROLLED 09/05/2010 ZAKI QUINTANA APRN 250.00 DIABETES II CONTROLLED 12/01/2010 112.2 CANDIDIASIS OF OTHER UROGENITAL SITES 12/01/2010 112.2 CANDIDIASIS OF OTHER UROGENITAL SITES 12/01/2010 112.2 CANDIDIASIS OF OTHER UROGENITAL SITES 12/01/2010 112.2 CANDIDIASIS OF OTHER UROGENITAL SITES 12/01/2010 112.2 CANDIDIASIS OF OTHER UROGENITAL SITES 12/01/2010 112.2 CANDIDIASIS OF OTHER UROGENITAL SITES 12/01/2010 112.2 CANDIDIASIS OF OTHER UROGENITAL SITES 12/01/2010 112.2 CANDIDIASIS OF OTHER UROGENITAL SITES 12/01/2010 112.2 CANDIDIASIS OF OTHER UROGENITAL SITES 12/01/2010 112.2 CANDIDIASIS OF OTHER UROGENITAL SITES 12/01/2010 112.2 CANDIDIASIS OF OTHER UROGENITAL SITES 12/01/2010 112.2 CANDIDIASIS OF OTHER UROGENITAL SITES 12/01/2010 ANDREWS CASHERO BARREL PLATER, SHRADDHA N 112.2 CANDIDIASIS OF OTHER UROGENITAL SITES 12/01/2010 ELIZABETH RODRIGUEZ, ESSIE 112.2 CANDIDIASIS OF OTHER UROGENITAL SITES 12/01/2010 ASIYA VENTURA DDS 112.2 CANDIDIASIS OF OTHER UROGENITAL SITES 12/01/2010 VIKRAM VENTURA DDS 112.2 CANDIDIASIS OF OTHER UROGENITAL SITES 12/01/2010 ANDREWS CASHERO BARREL PLATER, SHRADDHA N 112.2 CANDIDIASIS OF OTHER UROGENITAL SITES 12/01/2010 ANDREWS CASHERO BARREL PLATER, SHRADDHA N 112.2 CANDIDIASIS OF OTHER UROGENITAL SITES 12/01/2010 NERISSA MARTINEZ APRN 112.2 CANDIDIASIS OF OTHER UROGENITAL SITES 12/01/2010 ANDREWS CASHERO BARREL PLATER, SHRADDHA N 112.2 CANDIDIASIS OF OTHER UROGENITAL SITES 12/01/2010 ANDREWS CASHERO BARREL PLATER, SHRADDHA N 112.2 CANDIDIASIS OF OTHER UROGENITAL SITES 12/01/2010 ANDREWS CASHERO BARREL PLATER, SHRADDHA N 112.2 CANDIDIASIS OF OTHER UROGENITAL SITES 12/01/2010 ANDREWS CASHERO BARREL PLATER, SHRADDHA N 112.2 CANDIDIASIS OF OTHER UROGENITAL SITES 12/01/2010 ANDREWS CASHERO BARREL PLATER, SHRADDHA N 112.2 CANDIDIASIS OF OTHER UROGENITAL SITES 12/01/2010 NERISSA MARTINEZ APRN 112.2 CANDIDIASIS OF OTHER UROGENITAL SITES 12/01/2010 RAFAELA PAREDES APRN 112.2 CANDIDIASIS OF OTHER UROGENITAL SITES 12/01/2010 JAVIER MARVIN, REAGAN Weldon 112.2 CANDIDIASIS OF OTHER UROGENITAL SITES 12/01/2010 JAVIER MARVIN, REAGAN Weldon 112.2 CANDIDIASIS OF OTHER UROGENITAL SITES 12/01/2010 LAITH NGUYEN APRN 112.2 CANDIDIASIS OF OTHER UROGENITAL SITES 12/01/2010 REAGAN HERRERA PHD 112.2 CANDIDIASIS OF OTHER UROGENITAL SITES 12/01/2010 REAGAN HERRERA PHD 112.2 CANDIDIASIS OF OTHER UROGENITAL SITES 12/01/2010 ZAKI QUINTANA APRN 112.2 CANDIDIASIS OF OTHER UROGENITAL SITES 06/17/2011 465.9 UPPER RESPIRATORY INFECTION 06/17/2011 787.91 DIARRHEA 06/17/2011 465.9 UPPER RESPIRATORY INFECTION 06/17/2011 787.91 DIARRHEA 06/17/2011 465.9 UPPER RESPIRATORY INFECTION 06/17/2011 787.91 DIARRHEA 06/17/2011 465.9 UPPER RESPIRATORY INFECTION 06/17/2011 787.91 DIARRHEA 06/17/2011 465.9 UPPER RESPIRATORY INFECTION 06/17/2011 787.91 DIARRHEA 06/17/2011 465.9 UPPER RESPIRATORY INFECTION 06/17/2011 787.91 DIARRHEA 06/17/2011 465.9 UPPER RESPIRATORY INFECTION 06/17/2011 787.91 DIARRHEA 06/17/2011 465.9 UPPER RESPIRATORY INFECTION 06/17/2011 787.91 DIARRHEA 06/17/2011 465.9 UPPER RESPIRATORY INFECTION 06/17/2011 787.91 DIARRHEA 06/17/2011 465.9 UPPER RESPIRATORY INFECTION 06/17/2011 787.91 DIARRHEA 06/17/2011 465.9 UPPER RESPIRATORY INFECTION 06/17/2011 787.91 DIARRHEA 06/17/2011 465.9 UPPER RESPIRATORY INFECTION 06/17/2011 787.91 DIARRHEA 06/17/2011 SHRADDHA CISNEROS APRN N 465.9 UPPER RESPIRATORY INFECTION 06/17/2011 SHRADDHA CISNEROS APRN N 787.91 DIARRHEA 06/17/2011 ESSIE JOHNSON MD 465.9 UPPER RESPIRATORY INFECTION 06/17/2011 ESSIE JOHNSON MD 787.91 DIARRHEA 06/17/2011 ASIYA VENTURA DDS 465.9 UPPER RESPIRATORY INFECTION 06/17/2011 ASIYA VENTURA DDS 787.91 DIARRHEA 06/17/2011 VIKRAM VENTURA DDS 465.9 UPPER RESPIRATORY INFECTION 06/17/2011 VIKRAM VENTURA DDS 787.91 DIARRHEA 06/17/2011 SHRADDHA CISNEROS APRN N 465.9 UPPER RESPIRATORY INFECTION 06/17/2011 SHRADDHA CISNEROS APRN N 787.91 DIARRHEA 06/17/2011 ANDREWS CASHERO BARREL PLATER, SHRADDHA N 465.9 UPPER RESPIRATORY INFECTION 06/17/2011 ANDREWS CASHERO BARREL PLATER, SHRADDHA N 787.91 DIARRHEA 06/17/2011 JUAN GARNER NERISSA T 465.9 UPPER RESPIRATORY INFECTION 06/17/2011 JUAN BARREL PLATER, NERISSA T 787.91 DIARRHEA 06/17/2011 ANDREWS CASHERO BARREL PLATER, SHRADDHA N 465.9 UPPER RESPIRATORY INFECTION 06/17/2011 ANDREWS CASHERO BARREL PLATER, SHRADDHA N 787.91 DIARRHEA 06/17/2011 ANDREWS CASHERO BARREL PLATER, SHRADDHA N 465.9 UPPER RESPIRATORY INFECTION 06/17/2011 ANDREWS CASHERO BARREL PLATER, SHRADDHA N 787.91 DIARRHEA 06/17/2011 ANDREWS CASHERO BARREL PLATER, SHRADDHA N 465.9 UPPER RESPIRATORY INFECTION 06/17/2011 ANDREWS CASHERO BARREL PLATER, SHRADDHA N 787.91 DIARRHEA 06/17/2011 ANDREWS CASHERO BARREL PLATER, SHRADDHA N 465.9 UPPER RESPIRATORY INFECTION 06/17/2011 ANDREWS CASHERO BARREL PLATER, SHRADDHA N 787.91 DIARRHEA 06/17/2011 ANDREWS CASHERO BARREL PLATER, SHRADDHA N 465.9 UPPER RESPIRATORY INFECTION 06/17/2011 ANDREWS CASHERO BARREL PLATER, SHRADDHA N 787.91 DIARRHEA 06/17/2011 NERISSA MARTINEZ APRN T 465.9 UPPER RESPIRATORY INFECTION 06/17/2011 JUAN BARREL PLATER, NERISSA T 787.91 DIARRHEA 06/17/2011 LENA BARREL PLATER, ARFAELA S 465.9 UPPER RESPIRATORY INFECTION 06/17/2011 LENA BARREL PLATER, RAFAELA S 787.91 DIARRHEA 06/17/2011 JAVIER MARVIN, REAGAN [place] 465.9 UPPER RESPIRATORY INFECTION 06/17/2011 JAVIER MARVIN, REAGAN [place] 787.91 DIARRHEA 06/17/2011 JAVIER MARVIN, REAGAN [place] 465.9 UPPER RESPIRATORY INFECTION 06/17/2011 JAVIER MARVIN, REAGAN [place] 787.91 DIARRHEA 06/17/2011 WENDY BARREL PLATER, LAITH R 465.9 UPPER RESPIRATORY INFECTION 06/17/2011 WENDY BARREL PLATER, LAITH R 787.91 DIARRHEA 06/17/2011 JAVIER MARVIN, REAGAN [place] 465.9 UPPER RESPIRATORY INFECTION 06/17/2011 JAVIER MARVIN, REAGAN [place] 787.91 DIARRHEA 06/17/2011 JAVIER MARVIN, REAGAN [place] 465.9 UPPER RESPIRATORY INFECTION 06/17/2011 JAVIER PHD, REAGAN [place] 787.91 DIARRHEA 06/17/2011 ZAKI QUINTANA APRN 465.9 UPPER RESPIRATORY INFECTION 06/17/2011 ZAKI QUINTANA APRN 787.91 DIARRHEA 06/24/2011 401.1 HYPERTENSION, BENIGN ESSENTIAL 06/24/2011 401.1 HYPERTENSION, BENIGN ESSENTIAL 06/24/2011 401.1 HYPERTENSION, BENIGN ESSENTIAL 06/24/2011 401.1 HYPERTENSION, BENIGN ESSENTIAL 06/24/2011 401.1 HYPERTENSION, BENIGN ESSENTIAL 06/24/2011 401.1 HYPERTENSION, BENIGN ESSENTIAL 06/24/2011 401.1 HYPERTENSION, BENIGN ESSENTIAL 06/24/2011 401.1 HYPERTENSION, BENIGN ESSENTIAL 06/24/2011 401.1 HYPERTENSION, BENIGN ESSENTIAL 06/24/2011 401.1 HYPERTENSION, BENIGN ESSENTIAL 06/24/2011 401.1 HYPERTENSION, BENIGN ESSENTIAL 06/24/2011 401.1 HYPERTENSION, BENIGN ESSENTIAL 06/24/2011 ANDREWS CASHERO BARREL PLATER, SHRADDHA N 401.1 HYPERTENSION, BENIGN ESSENTIAL 06/24/2011 ESSIE JOHNSON MD 401.1 HYPERTENSION, BENIGN ESSENTIAL 06/24/2011 WHITE DDS, ASIYA Frederick 401.1 HYPERTENSION, BENIGN ESSENTIAL 06/24/2011 WHITE DDS, VIKRAM [place] 401.1 HYPERTENSION, BENIGN ESSENTIAL 06/24/2011 ANDREWS CASHERO BARREL PLATER, SHRADDHA N 401.1 HYPERTENSION, BENIGN ESSENTIAL 06/24/2011 ANDREWS CASHERO BARREL PLATER, SHRADDHA N 401.1 HYPERTENSION, BENIGN ESSENTIAL 06/24/2011 NERISSA MARTINEZ APRN 401.1 HYPERTENSION, BENIGN ESSENTIAL 06/24/2011 ANDREWS CASHERO BARREL PLATER, SHRADDHA N 401.1 HYPERTENSION, BENIGN ESSENTIAL 06/24/2011 ANDREWS CASHERO BARREL PLATER, SHRADDHA N 401.1 HYPERTENSION, BENIGN ESSENTIAL 06/24/2011 ANDREWS CASHERO BARREL PLATER, SHRADDHA N 401.1 HYPERTENSION, BENIGN ESSENTIAL 06/24/2011 ANDREWS CASHERO BARREL PLATER, SHRADDHA N 401.1 HYPERTENSION, BENIGN ESSENTIAL 06/24/2011 ANDREWS CASHERO BARREL PLATER, SHRADDHA N 401.1 HYPERTENSION, BENIGN ESSENTIAL 06/24/2011 NERISSA MARTINEZ APRN 401.1 HYPERTENSION, BENIGN ESSENTIAL 06/24/2011 RAFAELA PAREDES APRN 401.1 HYPERTENSION, BENIGN ESSENTIAL 06/24/2011 JAVIER PHD, REAGAN [place] 401.1 HYPERTENSION, BENIGN ESSENTIAL 06/24/2011 JAVIER PHD, REAGAN [place] 401.1 HYPERTENSION, BENIGN ESSENTIAL 06/24/2011 LAITH NGUYEN APRN 401.1 HYPERTENSION, BENIGN ESSENTIAL 06/24/2011 JAVIER MARVIN, REAGAN [place] 401.1 HYPERTENSION, BENIGN ESSENTIAL 06/24/2011 JAVIER PHD, REAGAN [place] 401.1 HYPERTENSION, BENIGN ESSENTIAL 06/24/2011 ZAKI QUINTANA APRN 401.1 HYPERTENSION, BENIGN ESSENTIAL 09/22/2011 Ot 300.00 ANXIETY STATE NOS 09/22/2011 Ot 465.9 ACUTE URI NOS 09/22/2011 Ot 786.05 SHORTNESS OF BREATH 09/27/2011 Ot 250.12 DIAB W KETOACIDOSIS, TYPE II OR UNSPEC T 09/27/2011 Ot 276.1 HYPOSMOLALITY 09/27/2011 Ot 276.8 HYPOPOTASSEMIA 09/27/2011 Ot 278.00 OBESITY, NOS 09/27/2011 Ot 300.00 ANXIETY STATE NOS 09/27/2011 Ot 314.01 ATTN DEFICIT W HYPERACT 09/27/2011 Ot 401.9 HYPERTENSION NOS 09/27/2011 Ot 490 BRONCHITIS NOS 09/27/2011 Ot 593.9 RENAL URETERAL DIS NOS 09/27/2011 Ot V04.81 ND FOR PROPHYLACTIC VACCIN AND INOCULATI 09/27/2011 Ot V15.81 HX OF PAST NONCOMPLIANCE 09/27/2011 Ot V85.41 BODY MASS INDEX 40.0-44.9, ADULT 10/27/2011 250.00 DIABETES II CONTROLLED (UNCOMPLICATED) 10/27/2011 250.00 DIABETES II CONTROLLED (UNCOMPLICATED) 10/27/2011 250.00 DIABETES II CONTROLLED (UNCOMPLICATED) 10/27/2011 250.00 DIABETES II CONTROLLED (UNCOMPLICATED) 10/27/2011 250.00 DIABETES II CONTROLLED (UNCOMPLICATED) 10/27/2011 250.00 DIABETES II CONTROLLED (UNCOMPLICATED) 10/27/2011 250.00 DIABETES II CONTROLLED (UNCOMPLICATED) 10/27/2011 250.00 DIABETES II CONTROLLED (UNCOMPLICATED) 10/27/2011 250.00 DIABETES II CONTROLLED (UNCOMPLICATED) 10/27/2011 250.00 DIABETES II CONTROLLED (UNCOMPLICATED) 10/27/2011 250.00 DIABETES II CONTROLLED (UNCOMPLICATED) 10/27/2011 250.00 DIABETES II CONTROLLED (UNCOMPLICATED) 10/27/2011 ANDREWS CASHERO BARREL PLATER, SHRADDHA N 250.00 DIABETES II CONTROLLED (UNCOMPLICATED) 10/27/2011 ELIZABETH RODRIGUEZ, ESSIE 250.00 DIABETES II CONTROLLED (UNCOMPLICATED) 10/27/2011 ASIYA VENTURA DDS 250.00 DIABETES II CONTROLLED (UNCOMPLICATED) 10/27/2011 VIKRAM VENTURA DDS 250.00 DIABETES II CONTROLLED (UNCOMPLICATED) 10/27/2011 ANDREWS CASHERO BARREL PLATER, SHRADDHA N 250.00 DIABETES II CONTROLLED (UNCOMPLICATED) 10/27/2011 ANDREWS CASHERO BARREL PLATER, SHRADDHA N 250.00 DIABETES II CONTROLLED (UNCOMPLICATED) 10/27/2011 NERISSA MARTINEZ APRN 250.00 DIABETES II CONTROLLED (UNCOMPLICATED) 10/27/2011 ANDREWS CASHERO BARREL PLATER, SHRADDHA N 250.00 DIABETES II CONTROLLED (UNCOMPLICATED) 10/27/2011 ANDREWS CASHERO BARREL PLATER, SHRADDHA N 250.00 DIABETES II CONTROLLED (UNCOMPLICATED) 10/27/2011 ANDREWS CASHERO BARREL PLATER, SHRADDHA N 250.00 DIABETES II CONTROLLED (UNCOMPLICATED) 10/27/2011 ANDREWS CASHERO BARREL PLATER, SHRADDHA N 250.00 DIABETES II CONTROLLED (UNCOMPLICATED) 10/27/2011 ANDREWS CASHERO BARREL PLATER, SHRADDHA N 250.00 DIABETES II CONTROLLED (UNCOMPLICATED) 10/27/2011 NERISSA MARTINEZ APRN 250.00 DIABETES II CONTROLLED (UNCOMPLICATED) 10/27/2011 RAFAELA PAREDES APRN 250.00 DIABETES II CONTROLLED (UNCOMPLICATED) 10/27/2011 REAGAN HERRERA PHD 250.00 DIABETES II CONTROLLED (UNCOMPLICATED) 10/27/2011 REAGAN HERRERA PHD 250.00 DIABETES II CONTROLLED (UNCOMPLICATED) 10/27/2011 LAITH NGUYEN APRN 250.00 DIABETES II CONTROLLED (UNCOMPLICATED) 10/27/2011 REAGAN HERRERA PHD 250.00 DIABETES II CONTROLLED (UNCOMPLICATED) 10/27/2011 REAGAN HERRERA PHD 250.00 DIABETES II CONTROLLED (UNCOMPLICATED) 10/27/2011 ZAKI QUINTANA APRN 250.00 DIABETES II CONTROLLED (UNCOMPLICATED) 11/08/2012 465.9 UPPER RESPIRATORY INFECTION 11/08/2012 465.9 UPPER RESPIRATORY INFECTION 11/08/2012 465.9 UPPER RESPIRATORY INFECTION 11/08/2012 465.9 UPPER RESPIRATORY INFECTION 11/08/2012 465.9 UPPER RESPIRATORY INFECTION 11/08/2012 465.9 UPPER RESPIRATORY INFECTION 11/08/2012 465.9 UPPER RESPIRATORY INFECTION 11/08/2012 465.9 UPPER RESPIRATORY INFECTION 11/08/2012 465.9 UPPER RESPIRATORY INFECTION 11/08/2012 465.9 UPPER RESPIRATORY INFECTION 11/08/2012 465.9 UPPER RESPIRATORY INFECTION 11/08/2012 ANDREWS CASHERO BARREL PLATER, SHRADDHA N 465.9 UPPER RESPIRATORY INFECTION 11/08/2012 ELIZABETH RODRIGUEZ, ESSIE 465.9 UPPER RESPIRATORY INFECTION 11/08/2012 WHITE DDS, ASIYA [place] 465.9 UPPER RESPIRATORY INFECTION 11/08/2012 WHITE DDS, VIKRAM [place] 465.9 UPPER RESPIRATORY INFECTION 11/08/2012 ANDREWS CASHERO BARREL PLATER, SHRADDHA N 465.9 UPPER RESPIRATORY INFECTION 11/08/2012 ANDREWS CASHERO BARREL PLATER, SHRADDHA N 465.9 UPPER RESPIRATORY INFECTION 11/08/2012 NERISSA MARTINEZ APRN 465.9 UPPER RESPIRATORY INFECTION 11/08/2012 ANDREWS CASHERO BARREL PLATER, SHRADDHA N 465.9 UPPER RESPIRATORY INFECTION 11/08/2012 ANDREWS CASHERO BARREL PLATER, SHRADDHA N 465.9 UPPER RESPIRATORY INFECTION 11/08/2012 ANDREWS CASHERO BARREL PLATER, SHRADDHA N 465.9 UPPER RESPIRATORY INFECTION 11/08/2012 ANDREWS CASHERO BARREL PLATER, SHRADDHA N 465.9 UPPER RESPIRATORY INFECTION 11/08/2012 ANDREWS CASHERO BARREL PLATER, SHRADDHA N 465.9 UPPER RESPIRATORY INFECTION 11/08/2012 NERISSA MARTINEZ APRN 465.9 UPPER RESPIRATORY INFECTION 11/08/2012 RAFAELA PAREDES APRN 465.9 UPPER RESPIRATORY INFECTION 11/08/2012 JAVIER MARVIN, REAGAN [place] 465.9 UPPER RESPIRATORY INFECTION 11/08/2012 JAVIER MARVIN, REAGAN [place] 465.9 UPPER RESPIRATORY INFECTION 11/08/2012 LAITH NGUYEN APRN R 465.9 UPPER RESPIRATORY INFECTION 11/08/2012 REAGAN HERRERA PHD 465.9 UPPER RESPIRATORY INFECTION 11/08/2012 JAVIER MARVIN, REAGAN [place] 465.9 UPPER RESPIRATORY INFECTION 11/08/2012 ZAKI QUINTANA APRN 465.9 UPPER RESPIRATORY INFECTION 11/22/2012 300.02 GENERALIZED ANXIETY DISORDER 11/22/2012 300.02 GENERALIZED ANXIETY DISORDER 11/22/2012 300.02 GENERALIZED ANXIETY DISORDER 11/22/2012 300.02 GENERALIZED ANXIETY DISORDER 11/22/2012 300.02 GENERALIZED ANXIETY DISORDER 11/22/2012 300.02 GENERALIZED ANXIETY DISORDER 11/22/2012 300.02 GENERALIZED ANXIETY DISORDER 11/22/2012 300.02 GENERALIZED ANXIETY DISORDER 11/22/2012 300.02 GENERALIZED ANXIETY DISORDER 11/22/2012 300.02 GENERALIZED ANXIETY DISORDER 11/22/2012 ANDREWS CASHERO BARREL PLATER, SHRADDHA N 300.02 GENERALIZED ANXIETY DISORDER 11/22/2012 ESSIE JOHNSON MD 300.02 GENERALIZED ANXIETY DISORDER 11/22/2012 WHITE DDS, ASIYA [place] 300.02 GENERALIZED ANXIETY DISORDER 11/22/2012 WHITE DDS, VIKRAM [place] 300.02 GENERALIZED ANXIETY DISORDER 11/22/2012 ANDREWS CASHERO BARREL PLATER, SHRADDHA N 300.02 GENERALIZED ANXIETY DISORDER 11/22/2012 ANDREWS CASHERO BARREL PLATER, SHRADDHA N 300.02 GENERALIZED ANXIETY DISORDER 11/22/2012 NERISSA MARTINEZ APRN 300.02 GENERALIZED ANXIETY DISORDER 11/22/2012 ANDREWS CASHERO BARREL PLATER, SHRADDHA N 300.02 GENERALIZED ANXIETY DISORDER 11/22/2012 ADNREWS CASHERO BARREL PLATER, SHRADDHA N 300.02 GENERALIZED ANXIETY DISORDER 11/22/2012 ANDREWS CASHERO BARREL PLATER, SHRADDHA N 300.02 GENERALIZED ANXIETY DISORDER 11/22/2012 ANDREWS CASHERO BARREL PLATER, SHRADDHA N 300.02 GENERALIZED ANXIETY DISORDER 11/22/2012 ANDREWS CASHERO BARREL PLATER, SHRADDHA N 300.02 GENERALIZED ANXIETY DISORDER 11/22/2012 NERISSA MARTINEZ APRN 300.02 GENERALIZED ANXIETY DISORDER 11/22/2012 RAFAELA PAREDES APRN 300.02 GENERALIZED ANXIETY DISORDER 11/22/2012 JAVIER MARVIN, REAGAN [place] 300.02 GENERALIZED ANXIETY DISORDER 11/22/2012 REAGAN HERRERA PHD 300.02 GENERALIZED ANXIETY DISORDER 11/22/2012 LAITH NGUYEN APRN 300.02 GENERALIZED ANXIETY DISORDER 11/22/2012 REAGAN HERRERA PHD 300.02 GENERALIZED ANXIETY DISORDER 11/22/2012 REAGAN HERRERA PHD 300.02 GENERALIZED ANXIETY DISORDER 11/22/2012 ZAKI QUINTANA APRN 300.02 GENERALIZED ANXIETY DISORDER 12/06/2012 530.11 REFLUX ESOPHAGITIS 12/06/2012 787.91 DIARRHEA 12/06/2012 V67.9 UNSPECIFIED FOLLOW-UP EXAMINATION 12/06/2012 530.11 REFLUX ESOPHAGITIS 12/06/2012 787.91 DIARRHEA 12/06/2012 V67.9 UNSPECIFIED FOLLOW-UP EXAMINATION 12/06/2012 530.11 REFLUX ESOPHAGITIS 12/06/2012 787.91 DIARRHEA 12/06/2012 V67.9 UNSPECIFIED FOLLOW-UP EXAMINATION 12/06/2012 530.11 REFLUX ESOPHAGITIS 12/06/2012 787.91 DIARRHEA 12/06/2012 V67.9 UNSPECIFIED FOLLOW-UP EXAMINATION 12/06/2012 530.11 REFLUX ESOPHAGITIS 12/06/2012 787.91 DIARRHEA 12/06/2012 V67.9 UNSPECIFIED FOLLOW-UP EXAMINATION 12/06/2012 530.11 REFLUX ESOPHAGITIS 12/06/2012 787.91 DIARRHEA 12/06/2012 V67.9 UNSPECIFIED FOLLOW-UP EXAMINATION 12/06/2012 530.11 REFLUX ESOPHAGITIS 12/06/2012 787.91 DIARRHEA 12/06/2012 V67.9 UNSPECIFIED FOLLOW-UP EXAMINATION 12/06/2012 530.11 REFLUX ESOPHAGITIS 12/06/2012 787.91 DIARRHEA 12/06/2012 V67.9 UNSPECIFIED FOLLOW-UP EXAMINATION 12/06/2012 530.11 REFLUX ESOPHAGITIS 12/06/2012 787.91 DIARRHEA 12/06/2012 V67.9 UNSPECIFIED FOLLOW-UP EXAMINATION 12/06/2012 JULIANA HENDERSON APRN, SHRADDHA N 530.11 REFLUX ESOPHAGITIS 12/06/2012 JULIANA HENDERSON APRN, SHRADDHA N 787.91 DIARRHEA 12/06/2012 JULIANA HENDERSON APRN, SHRADDHA N V67.9 UNSPECIFIED FOLLOW-UP EXAMINATION 12/06/2012 ESSIE JOHNSON MD 530.11 REFLUX ESOPHAGITIS 12/06/2012 ESSIE JOHNSON MD 787.91 DIARRHEA 12/06/2012 ESSIE JOHNSON MD V67.9 UNSPECIFIED FOLLOW-UP EXAMINATION 12/06/2012 WHITE DDS, ASIYA J 530.11 REFLUX ESOPHAGITIS 12/06/2012 WHITE DDS, ASIYA J 787.91 DIARRHEA 12/06/2012 WHITE DDS, ASIYA J V67.9 UNSPECIFIED FOLLOW-UP EXAMINATION 12/06/2012 WHITE DDS, VIKRAM D 530.11 REFLUX ESOPHAGITIS 12/06/2012 WHITE DDS, VIKRAM D 787.91 DIARRHEA 12/06/2012 WHITE DDS, VIKRAM D V67.9 UNSPECIFIED FOLLOW-UP EXAMINATION 12/06/2012 JULIANA HENDERSON APRN SHRADDHA N 530.11 REFLUX ESOPHAGITIS 12/06/2012 ANDREWS CASHERO BARREL PLATER, SHRADDHA N 787.91 DIARRHEA 12/06/2012 ANDREWS CASHERO BARREL PLATER, SHRADDHA N V67.9 UNSPECIFIED FOLLOW-UP EXAMINATION 12/06/2012 ANDREWS CASHERO BARREL PLATER, SHRADDHA N 530.11 REFLUX ESOPHAGITIS 12/06/2012 ANDREWS CASHERO BARREL PLATER, SHRDADHA N 787.91 DIARRHEA 12/06/2012 ANDREWS CASHERO BARREL PLATER, SHRADDHA N V67.9 UNSPECIFIED FOLLOW-UP EXAMINATION 12/06/2012 NERISSA MARTINEZ APRN T 530.11 REFLUX ESOPHAGITIS 12/06/2012 NERISSA MARTINEZ APRN T 787.91 DIARRHEA 12/06/2012 NERISSA MARTINEZ APRN T V67.9 UNSPECIFIED FOLLOW-UP EXAMINATION 12/06/2012 ANDREWS CASHERO BARREL PLATER, SHRADDHA N 530.11 REFLUX ESOPHAGITIS 12/06/2012 ANDREWS CASHERO BARREL PLATER, SHRADDHA N 787.91 DIARRHEA 12/06/2012 ANDREWS CASHERO BARREL PLATER, SHRADDHA N V67.9 UNSPECIFIED FOLLOW-UP EXAMINATION 12/06/2012 ANDREWS CASHERO BARREL PLATER, SHRADDHA N 530.11 REFLUX ESOPHAGITIS 12/06/2012 ANDREWS CASHERO BARREL PLATER, SHRADDHA N 787.91 DIARRHEA 12/06/2012 ANDREWS CASHERO BARREL PLATER, SHRADDHA N V67.9 UNSPECIFIED FOLLOW-UP EXAMINATION 12/06/2012 ANDREWS CASHERO BARREL PLATER, SHRADDHA N 530.11 REFLUX ESOPHAGITIS 12/06/2012 ANDREWS CASHERO BARREL PLATER, SHRADDHA N 787.91 DIARRHEA 12/06/2012 ANDREWS CASHERO BARREL PLATER, SHRADDHA N V67.9 UNSPECIFIED FOLLOW-UP EXAMINATION 12/06/2012 ANDREWS CASHERO BARREL PLATER, SHRADDHA N 530.11 REFLUX ESOPHAGITIS 12/06/2012 ANDREWS CASHERO BARREL PLATER, SHRADDHA N 787.91 DIARRHEA 12/06/2012 ANDREWS CASHERO BARREL PLATER, SHRADDHA N V67.9 UNSPECIFIED FOLLOW-UP EXAMINATION 12/06/2012 ANDREWS CASHERO BARREL PLATER, SHRADDHA N 530.11 REFLUX ESOPHAGITIS 12/06/2012 ANDREWS CASHERO BARREL PLATER, SHRADDHA N 787.91 DIARRHEA 12/06/2012 ANDREWS CASHERO BARREL PLATER, SHRADDHA N V67.9 UNSPECIFIED FOLLOW-UP EXAMINATION 12/06/2012 NERISSA MARTINEZ APRN T 530.11 REFLUX ESOPHAGITIS 12/06/2012 NERISSA MARTINEZ APRN 787.91 DIARRHEA 12/06/2012 NERISSA MARTINEZ APRN V67.9 UNSPECIFIED FOLLOW-UP EXAMINATION 12/06/2012 RAFAELA PAREDES APRN S 530.11 REFLUX ESOPHAGITIS 12/06/2012 RAFAELA PAREDES APRN S 787.91 DIARRHEA 12/06/2012 RAFAELA PAREDES APRN S V67.9 UNSPECIFIED FOLLOW-UP EXAMINATION 12/06/2012 REAGAN HERRERA PHD 530.11 REFLUX ESOPHAGITIS 12/06/2012 REAGAN HERRERA PHD 787.91 DIARRHEA 12/06/2012 REAGAN HERRERA PHD V67.9 UNSPECIFIED FOLLOW-UP EXAMINATION 12/06/2012 REAGAN HERRERA PHD 530.11 REFLUX ESOPHAGITIS 12/06/2012 REAGAN HERRERA PHD 787.91 DIARRHEA 12/06/2012 REAGAN HERRERA PHD V67.9 UNSPECIFIED FOLLOW-UP EXAMINATION 12/06/2012 LAITH NGUYEN APRN R 530.11 REFLUX ESOPHAGITIS 12/06/2012 LAITH NGUYEN APRN R 787.91 DIARRHEA 12/06/2012 LAITH NGUYEN APRN R V67.9 UNSPECIFIED FOLLOW-UP EXAMINATION 12/06/2012 REAGAN HERRERA PHD 530.11 REFLUX ESOPHAGITIS 12/06/2012 REAGAN HERRERA PHD 787.91 DIARRHEA 12/06/2012 REAGAN HERRERA PHD V67.9 UNSPECIFIED FOLLOW-UP EXAMINATION 12/06/2012 REAGAN HERRERA PHD 530.11 REFLUX ESOPHAGITIS 12/06/2012 REAGAN HERRERA PHD 787.91 DIARRHEA 12/06/2012 REAGAN HERRERA PHD V67.9 UNSPECIFIED FOLLOW-UP EXAMINATION 12/06/2012 ZAKI QUINTANA APRN 530.11 REFLUX ESOPHAGITIS 12/06/2012 ZAKI QUINTANA APRN 787.91 DIARRHEA 12/06/2012 ZAKI QUINTANA APRN V67.9 UNSPECIFIED FOLLOW-UP EXAMINATION 12/28/2012 752.65 HIDDEN PENIS 12/28/2012 752.65 HIDDEN PENIS 12/28/2012 752.65 HIDDEN PENIS 12/28/2012 752.65 HIDDEN PENIS 12/28/2012 752.65 HIDDEN PENIS 12/28/2012 752.65 HIDDEN PENIS 12/28/2012 752.65 HIDDEN PENIS 12/28/2012 752.65 HIDDEN PENIS 12/28/2012 ANDREWS CASHERO BARREL PLATER, SHRADDHA N 752.65 HIDDEN PENIS 12/28/2012 ELIZABETH RODRIGUEZ, ESSIE 752.65 HIDDEN PENIS 12/28/2012 WHITE DDS, ASIYA Frederick 752.65 HIDDEN PENIS 12/28/2012 WHITE DDS, VIKRAM Weldon 752.65 HIDDEN PENIS 12/28/2012 NADREWS CASHERO BARREL PLATER, SHRADDHA N 752.65 HIDDEN PENIS 12/28/2012 ANDREWS CASHERO BARREL PLATER, SHRADDHA N 752.65 HIDDEN PENIS 12/28/2012 NERISSA MARTINEZ APRN 752.65 HIDDEN PENIS 12/28/2012 ANDREWS CASHERO BARREL PLATER, SHRADDHA N 752.65 HIDDEN PENIS 12/28/2012 ANDREWS CASHERO BARREL PLATER, SHRADDHA N 752.65 HIDDEN PENIS 12/28/2012 ANDREWS CASHERO BARREL PLATER, SHRADDHA N 752.65 HIDDEN PENIS 12/28/2012 ANDREWS CASHERO BARREL PLATER, SHRADDHA N 752.65 HIDDEN PENIS 12/28/2012 ANDREWS CASHERO BARREL PLATER, SHRADDHA N 752.65 HIDDEN PENIS 12/28/2012 NERISSA MARTINEZ APRN 752.65 HIDDEN PENIS 12/28/2012 RAFAELA PAREDES APRN 752.65 HIDDEN PENIS 12/28/2012 JAVIER MARVIN, REAGAN [place] 752.65 HIDDEN PENIS 12/28/2012 JAVIER MARVIN, REAGAN [place] 752.65 HIDDEN PENIS 12/28/2012 LAITH NGUYEN APRN 752.65 HIDDEN PENIS 12/28/2012 REAGAN HERRERA PHD 752.65 HIDDEN PENIS 12/28/2012 REAGAN HERRERA PHD 752.65 HIDDEN PENIS 12/28/2012 ZAKI QUINTANA APRN 752.65 HIDDEN PENIS 01/05/2013 112.3 CANDIDIASIS OF SKIN AND NAILS 01/05/2013 278.01 MORBID OBESITY 01/05/2013 112.3 CANDIDIASIS OF SKIN AND NAILS 01/05/2013 278.01 MORBID OBESITY 01/05/2013 112.3 CANDIDIASIS OF SKIN AND NAILS 01/05/2013 278.01 MORBID OBESITY 01/05/2013 112.3 CANDIDIASIS OF SKIN AND NAILS 01/05/2013 278.01 MORBID OBESITY 01/05/2013 112.3 CANDIDIASIS OF SKIN AND NAILS 01/05/2013 278.01 MORBID OBESITY 01/05/2013 112.3 CANDIDIASIS OF SKIN AND NAILS 01/05/2013 278.01 MORBID OBESITY 01/05/2013 112.3 CANDIDIASIS OF SKIN AND NAILS 01/05/2013 278.01 MORBID OBESITY 01/05/2013 ANDREWS CASHGURWINDER BARREL PLATER, SHRADDHA N 112.3 CANDIDIASIS OF SKIN AND NAILS 01/05/2013 ANDREWS CASHGURWINDER BARREL PLATER, SHRADDHA N 278.01 MORBID OBESITY 01/05/2013 ESSIE JOHNSON MD 112.3 CANDIDIASIS OF SKIN AND NAILS 01/05/2013 ESSIE JOHNSON MD 278.01 MORBID OBESITY 01/05/2013 LORENZO DDSASIYA 112.3 CANDIDIASIS OF SKIN AND NAILS 01/05/2013 LORENZO PAYNESASIYA J 278.01 MORBID OBESITY 01/05/2013 WHITE DDSVIKRAM D 112.3 CANDIDIASIS OF SKIN AND NAILS 01/05/2013 WHITE DDSVIKRAM D 278.01 MORBID OBESITY 01/05/2013 ANDREWS CASHERO BARREL PLATER, SHRADDHA N 112.3 CANDIDIASIS OF SKIN AND NAILS 01/05/2013 ANDREWS CASHERO BARREL PLATER, SHRADDHA N 278.01 MORBID OBESITY 01/05/2013 ANDREWS CASHERO BARREL PLATER, SHRADDHA N 112.3 CANDIDIASIS OF SKIN AND NAILS 01/05/2013 ANDREWS CASHERO BARREL PLATER, SHRADDHA N 278.01 MORBID OBESITY 01/05/2013 NERISSA MARTINEZ APRN 112.3 CANDIDIASIS OF SKIN AND NAILS 01/05/2013 NERISSA MARTINEZ APRN 278.01 MORBID OBESITY 01/05/2013 ANDREWS CASHERO BARREL PLATER, SHRADDHA N 112.3 CANDIDIASIS OF SKIN AND NAILS 01/05/2013 ANDREWS CASHERO BARREL PLATER, SHRADDHA N 278.01 MORBID OBESITY 01/05/2013 ANDREWS CASHERO BARREL PLATER, SHRADDHA N 112.3 CANDIDIASIS OF SKIN AND NAILS 01/05/2013 ANDREWS CASHERO BARREL PLATER, SHRADDHA N 278.01 MORBID OBESITY 01/05/2013 ANDREWS CASHERO BARREL PLATER, SHRADDHA N 112.3 CANDIDIASIS OF SKIN AND NAILS 01/05/2013 ANDREWS CASHERO BARREL PLATER, SHRADDHA N 278.01 MORBID OBESITY 01/05/2013 ANDREWS CASHERO BARREL PLATER, SHRADDHA N 112.3 CANDIDIASIS OF SKIN AND NAILS 01/05/2013 JULIANA HENDERSON BARREL PLATER, SHRADDHA N 278.01 MORBID OBESITY 01/05/2013 JULIANA HENDERSON BARREL PLATER, SHRADDHA N 112.3 CANDIDIASIS OF SKIN AND NAILS 01/05/2013 JULIANA HENDERSON BARREL PLATER, SHRADDHA N 278.01 MORBID OBESITY 01/05/2013 NERISSA MARTINEZ APRN T 112.3 CANDIDIASIS OF SKIN AND NAILS 01/05/2013 NERISSA MARTINEZ APRN T 278.01 MORBID OBESITY 01/05/2013 RAFAELA PAREDES APRN S 112.3 CANDIDIASIS OF SKIN AND NAILS 01/05/2013 RAFAELA PAREDES APRN S 278.01 MORBID OBESITY 01/05/2013 REAGAN HERRERA PHD 112.3 CANDIDIASIS OF SKIN AND NAILS 01/05/2013 REAGAN HERRERA PHD 278.01 MORBID OBESITY 01/05/2013 REAGAN HERRERA PHD 112.3 CANDIDIASIS OF SKIN AND NAILS 01/05/2013 REAGAN HERRERA PHD 278.01 MORBID OBESITY 01/05/2013 LAITH NGUYEN APRN R 112.3 CANDIDIASIS OF SKIN AND NAILS 01/05/2013 MARY NGUYEN APRNINA R 278.01 MORBID OBESITY 01/05/2013 REAGAN HERRERA PHD 112.3 CANDIDIASIS OF SKIN AND NAILS 01/05/2013 REAGAN HERRERA PHD 278.01 MORBID OBESITY 01/05/2013 REAGAN HERRERA PHD 112.3 CANDIDIASIS OF SKIN AND NAILS 01/05/2013 REAGAN HERRERA PHD 278.01 MORBID OBESITY 01/05/2013 ZAKI QUINTANA APRN 112.3 CANDIDIASIS OF SKIN AND NAILS 01/05/2013 ZAKI QUINTANA APRN 278.01 MORBID OBESITY 01/26/2013 607.84 IMPOTENCE OF ORGANIC ORIGIN 01/26/2013 782.9 OTHER SYMPTOMS INVOLVING SKIN AND INTEGUMENTARY TISSUES 01/26/2013 607.84 IMPOTENCE OF ORGANIC ORIGIN 01/26/2013 782.9 OTHER SYMPTOMS INVOLVING SKIN AND INTEGUMENTARY TISSUES 01/26/2013 607.84 IMPOTENCE OF ORGANIC ORIGIN 01/26/2013 782.9 OTHER SYMPTOMS INVOLVING SKIN AND INTEGUMENTARY TISSUES 01/26/2013 607.84 IMPOTENCE OF ORGANIC ORIGIN 01/26/2013 782.9 OTHER SYMPTOMS INVOLVING SKIN AND INTEGUMENTARY TISSUES 01/26/2013 607.84 IMPOTENCE OF ORGANIC ORIGIN 01/26/2013 782.9 OTHER SYMPTOMS INVOLVING SKIN AND INTEGUMENTARY TISSUES 01/26/2013 607.84 IMPOTENCE OF ORGANIC ORIGIN 01/26/2013 782.9 OTHER SYMPTOMS INVOLVING SKIN AND INTEGUMENTARY TISSUES 01/26/2013 SHRADDHA CISNEROS APRN N 607.84 IMPOTENCE OF ORGANIC ORIGIN 01/26/2013 ANDREWS BEATRIZ GARNER, SHRADDHA N 782.9 OTHER SYMPTOMS INVOLVING SKIN AND INTEGUMENTARY TISSUES 01/26/2013 ESSIE JOHNSON MD 607.84 IMPOTENCE OF ORGANIC ORIGIN 01/26/2013 ESSIE JOHNSON MD 782.9 OTHER SYMPTOMS INVOLVING SKIN AND INTEGUMENTARY TISSUES 01/26/2013 WHITE DDS, ASIYA J 607.84 IMPOTENCE OF ORGANIC ORIGIN 01/26/2013 WHITE DDS, ASIYA J 782.9 OTHER SYMPTOMS INVOLVING SKIN AND INTEGUMENTARY TISSUES 01/26/2013 WHITE DDS, VIKRAM D 607.84 IMPOTENCE OF ORGANIC ORIGIN 01/26/2013 WHITE DDS, VIKRAM D 782.9 OTHER SYMPTOMS INVOLVING SKIN AND INTEGUMENTARY TISSUES 01/26/2013 MASHA CISNEROS APRNCY N 607.84 IMPOTENCE OF ORGANIC ORIGIN 01/26/2013 JULIANA HENDERSON APRN SHRADDHA N 782.9 OTHER SYMPTOMS INVOLVING SKIN AND INTEGUMENTARY TISSUES 01/26/2013 MASHA CISNEROS APRNCY N 607.84 IMPOTENCE OF ORGANIC ORIGIN 01/26/2013 JULIANA HENDERSON APRN, SHRADDHA N 782.9 OTHER SYMPTOMS INVOLVING SKIN AND INTEGUMENTARY TISSUES 01/26/2013 NERISSA MARTINEZ APRN 607.84 IMPOTENCE OF ORGANIC ORIGIN 01/26/2013 NERISSA MARTINEZ APRN 782.9 OTHER SYMPTOMS INVOLVING SKIN AND INTEGUMENTARY TISSUES 01/26/2013 SHRADDHA CISNEROS APRN N 607.84 IMPOTENCE OF ORGANIC ORIGIN 01/26/2013 MASHA CISNEROS APRNCY N 782.9 OTHER SYMPTOMS INVOLVING SKIN AND INTEGUMENTARY TISSUES 01/26/2013 ANDREWS CASHERO BARREL PLATER, SHRADDHA N 607.84 IMPOTENCE OF ORGANIC ORIGIN 01/26/2013 ANDREWS CASHERO BARREL PLATER, SHRADDHA N 782.9 OTHER SYMPTOMS INVOLVING SKIN AND INTEGUMENTARY TISSUES 01/26/2013 ANDREWS CASHERO BARREL PLATER, SHRADDHA N 607.84 IMPOTENCE OF ORGANIC ORIGIN 01/26/2013 ANDREWS CASHERO BARREL PLATER, SHRADDHA N 782.9 OTHER SYMPTOMS INVOLVING SKIN AND INTEGUMENTARY TISSUES 01/26/2013 ANDREWS CASHERO BARREL PLATER, SHRADDHA N 607.84 IMPOTENCE OF ORGANIC ORIGIN 01/26/2013 ANDREWS CASHERO BARREL PLATER, SHRADDHA N 782.9 OTHER SYMPTOMS INVOLVING SKIN AND INTEGUMENTARY TISSUES 01/26/2013 ANDREWS CASHERO BARREL PLATER, SHRADDHA N 607.84 IMPOTENCE OF ORGANIC ORIGIN 01/26/2013 ANDREWS CASHERO BARREL PLATER, SHRADDHA N 782.9 OTHER SYMPTOMS INVOLVING SKIN AND INTEGUMENTARY TISSUES 01/26/2013 NERISSA MARTINEZ APRN 607.84 IMPOTENCE OF ORGANIC ORIGIN 01/26/2013 JUAN GARNER NERISSA T 782.9 OTHER SYMPTOMS INVOLVING SKIN AND INTEGUMENTARY TISSUES 01/26/2013 RAFAELA PAREDES APRN S 607.84 IMPOTENCE OF ORGANIC ORIGIN 01/26/2013 LENA GARNER RAFAELA S 782.9 OTHER SYMPTOMS INVOLVING SKIN AND INTEGUMENTARY TISSUES 01/26/2013 REAGAN HERRERA PHD 607.84 IMPOTENCE OF ORGANIC ORIGIN 01/26/2013 REAGAN HERRERA PHD 782.9 OTHER SYMPTOMS INVOLVING SKIN AND INTEGUMENTARY TISSUES 01/26/2013 REAGAN HERRERA PHD 607.84 IMPOTENCE OF ORGANIC ORIGIN 01/26/2013 REAGAN HERRERA PHD 782.9 OTHER SYMPTOMS INVOLVING SKIN AND INTEGUMENTARY TISSUES 01/26/2013 WENDY GARNER LAITH R 607.84 IMPOTENCE OF ORGANIC ORIGIN 01/26/2013 WENDY GARNER LAITH R 782.9 OTHER SYMPTOMS INVOLVING SKIN AND INTEGUMENTARY TISSUES 01/26/2013 REAGAN HERRERA PHD 607.84 IMPOTENCE OF ORGANIC ORIGIN 01/26/2013 REAGAN HERRERA PHD 782.9 OTHER SYMPTOMS INVOLVING SKIN AND INTEGUMENTARY TISSUES 01/26/2013 JAVIER PHD, REAGAN eWldon 607.84 IMPOTENCE OF ORGANIC ORIGIN 01/26/2013 JAVIER MARVIN, REAGAN [place] 782.9 OTHER SYMPTOMS INVOLVING SKIN AND INTEGUMENTARY TISSUES 01/26/2013 ZAKI QUINTANA APRN 607.84 IMPOTENCE OF ORGANIC ORIGIN 01/26/2013 ZAKI QUINTANA APRN 782.9 OTHER SYMPTOMS INVOLVING SKIN AND INTEGUMENTARY TISSUES 03/30/2013 356.9 UNSPECIFIED IDIOPATHIC PERIPHERAL NEUROPATHY 03/30/2013 356.9 UNSPECIFIED IDIOPATHIC PERIPHERAL NEUROPATHY 03/30/2013 ANDREWS CASHERO BARREL PLATER, SHRADDHA N 356.9 UNSPECIFIED IDIOPATHIC PERIPHERAL NEUROPATHY 03/30/2013 ELIZABETH RODRIGUEZ, ESSIE 356.9 UNSPECIFIED IDIOPATHIC PERIPHERAL NEUROPATHY 03/30/2013 ASIYA VENTURA DDS 356.9 UNSPECIFIED IDIOPATHIC PERIPHERAL NEUROPATHY 03/30/2013 VIKRAM VENTURA DDS 356.9 UNSPECIFIED IDIOPATHIC PERIPHERAL NEUROPATHY 03/30/2013 ANDREWS CASHERO BARREL PLATER, SHRADDHA N 356.9 UNSPECIFIED IDIOPATHIC PERIPHERAL NEUROPATHY 03/30/2013 ANDREWS CASHERO BARREL PLATER, SHRADDHA N 356.9 UNSPECIFIED IDIOPATHIC PERIPHERAL NEUROPATHY 03/30/2013 NERISSA MARTINEZ APRN 356.9 UNSPECIFIED IDIOPATHIC PERIPHERAL NEUROPATHY 03/30/2013 ANDREWS CASHERO BARREL PLATER, SHRADDHA N 356.9 UNSPECIFIED IDIOPATHIC PERIPHERAL NEUROPATHY 03/30/2013 ANDREWS CASHERO BARREL PLATER, SHRADDHA N 356.9 UNSPECIFIED IDIOPATHIC PERIPHERAL NEUROPATHY 03/30/2013 ANDREWS CASHERO BARREL PLATER, SHRADDHA N 356.9 UNSPECIFIED IDIOPATHIC PERIPHERAL NEUROPATHY 03/30/2013 ANDREWS CASHERO BARREL PLATER, SHRADDHA N 356.9 UNSPECIFIED IDIOPATHIC PERIPHERAL NEUROPATHY 03/30/2013 ANDREWS CASHERO BARREL PLATER, SHRADDHA N 356.9 UNSPECIFIED IDIOPATHIC PERIPHERAL NEUROPATHY 03/30/2013 NERISSA MARTINEZ APRN 356.9 UNSPECIFIED IDIOPATHIC PERIPHERAL NEUROPATHY 03/30/2013 RAFAELA PAREDES APRN 356.9 UNSPECIFIED IDIOPATHIC PERIPHERAL NEUROPATHY 03/30/2013 JAVIER MARVIN, REAGAN Weldon 356.9 UNSPECIFIED IDIOPATHIC PERIPHERAL NEUROPATHY 03/30/2013 JAVIER MARVIN, REAGAN Weldon 356.9 UNSPECIFIED IDIOPATHIC PERIPHERAL NEUROPATHY 03/30/2013 LAITH NGUYEN APRN 356.9 UNSPECIFIED IDIOPATHIC PERIPHERAL NEUROPATHY 03/30/2013 REAGAN HERRERA PHD 356.9 UNSPECIFIED IDIOPATHIC PERIPHERAL NEUROPATHY 03/30/2013 REAGAN HERRERA PHD 356.9 UNSPECIFIED IDIOPATHIC PERIPHERAL NEUROPATHY 03/30/2013 ZAKI QUINTANA APRN 356.9 UNSPECIFIED IDIOPATHIC PERIPHERAL NEUROPATHY 05/04/2013 719.47 PAIN IN JOINT INVOLVING ANKLE AND FOOT 05/04/2013 ANDREWS BEATRIZ GARNER, SHRADDHA N 719.47 PAIN IN JOINT INVOLVING ANKLE AND FOOT 05/04/2013 ESSIE JOHNSON MD 719.47 PAIN IN JOINT INVOLVING ANKLE AND FOOT 05/04/2013 ASIYA VENTURA DDS 719.47 PAIN IN JOINT INVOLVING ANKLE AND FOOT 05/04/2013 VIKRAM VENTURA DDS 719.47 PAIN IN JOINT INVOLVING ANKLE AND FOOT 05/04/2013 JULIANA HENDERSON APRN, SHRADDHA N 719.47 PAIN IN JOINT INVOLVING ANKLE AND FOOT 05/04/2013 ANDREWS CASHGURWINDER GARNER, SHRADDHA N 719.47 PAIN IN JOINT INVOLVING ANKLE AND FOOT 05/04/2013 NERISSA MARTINEZ APRN 719.47 PAIN IN JOINT INVOLVING ANKLE AND FOOT 05/04/2013 ANDREWS CASHERO PASCUAL, SHRADDHA N 719.47 PAIN IN JOINT INVOLVING ANKLE AND FOOT 05/04/2013 ANDREWS CASHERO BARREL PLATER, SHRADDHA N 719.47 PAIN IN JOINT INVOLVING ANKLE AND FOOT 05/04/2013 ANDREWS CASHGURWINDER GARNER, SHRADDHA N 719.47 PAIN IN JOINT INVOLVING ANKLE AND FOOT 05/04/2013 ANDREWS CASHGURWINDER GARNER, SHRADDHA N 719.47 PAIN IN JOINT INVOLVING ANKLE AND FOOT 05/04/2013 JULIANA GILMANERO PASCUAL, SHRADDHA N 719.47 PAIN IN JOINT INVOLVING ANKLE AND FOOT 05/04/2013 NERISSA MARTINEZ APRN 719.47 PAIN IN JOINT INVOLVING ANKLE AND FOOT 05/04/2013 RAFAELA PAREDES APRN 719.47 PAIN IN JOINT INVOLVING ANKLE AND FOOT 05/04/2013 REAGAN HERRERA PHD 719.47 PAIN IN JOINT INVOLVING ANKLE AND FOOT 05/04/2013 REAGAN HERRERA PHD 719.47 PAIN IN JOINT INVOLVING ANKLE AND FOOT 05/04/2013 LAITH NGUYEN APRN 719.47 PAIN IN JOINT INVOLVING ANKLE AND FOOT 05/04/2013 REAGAN HERRERA PHD 719.47 PAIN IN JOINT INVOLVING ANKLE AND FOOT 05/04/2013 JAVIER MARVIN, REAGAN Wel[place] 719.47 PAIN IN JOINT INVOLVING ANKLE AND FOOT 05/04/2013 ZAKI QUINTANA APRN 719.47 PAIN IN JOINT INVOLVING ANKLE AND FOOT 09/19/2013 JOHANA RODRIGUEZ, DEBRA Sanon Ot 782.0 SKIN SENSATION DISTURB 09/19/2013 JOHANA RODRIGUEZ, DEBRA San[place] Ot 787.02 NAUSEA ALONE 09/19/2013 JOHANA RODRIGUEZ, DEBRA San[place] Ot 789.00 ABDOMINAL PAIN, UNSPECIFIED SITE 01/27/2014 GARRETT DONABILAA K Ot 558.9 NONINF GASTROENTERIT NEC 01/27/2014 GARRETT DO, TRISTEN K Ot 789.09 ABDOMINAL PAIN, OTHER SPECIFIED SITE 01/28/2014 JOHANA RODRIGUEZ, DEBRA San[place] Ot 558.9 NONINF GASTROENTERIT NEC 01/28/2014 JOHANA RODRIGUEZ, DEBRA San[place] Ot 789.00 ABDOMINAL PAIN, UNSPECIFIED SITE 01/30/2014 SHRADDHA CISNEROS APRN N 564.00 UNSPECIFIED CONSTIPATION 01/30/2014 SHRADDHA CISNEROS APRN N 789.07 ABDOMINAL PAIN GENERALIZED 01/30/2014 NERISSA MARTINEZ APRN 564.00 UNSPECIFIED CONSTIPATION 01/30/2014 NERISSA MARTINEZ APRN 789.07 ABDOMINAL PAIN GENERALIZED 01/30/2014 ANDREWS CASHMASHA PURDY APRNCY N 564.00 UNSPECIFIED CONSTIPATION 01/30/2014 MASHA CISNEROS APRNCY N 789.07 ABDOMINAL PAIN GENERALIZED 01/30/2014 ANDREWS MASHA HENDERSON APRNCY N 564.00 UNSPECIFIED CONSTIPATION 01/30/2014 ANDREWS MASHA HENDERSON APRNCY N 789.07 ABDOMINAL PAIN GENERALIZED 01/30/2014 ANDREWS CASHGURWINDER GARNER SHRADDHA N 564.00 UNSPECIFIED CONSTIPATION 01/30/2014 ANDREWS CASHGURWINDER GARNER, SHRADDHA N 789.07 ABDOMINAL PAIN GENERALIZED 01/30/2014 ANDREWS CASHGURWINDER GARNER SHRADDHA N 564.00 UNSPECIFIED CONSTIPATION 01/30/2014 ANDREWS CASHMASHA PURDY APRNCY N 789.07 ABDOMINAL PAIN GENERALIZED 01/30/2014 ANDREWS CASHGURWINDER GARNER SHRADDHA N 564.00 UNSPECIFIED CONSTIPATION 01/30/2014 ANDREWS CASHMASHA PURDY APRNCY N 789.07 ABDOMINAL PAIN GENERALIZED 01/30/2014 NERISSA MARTINEZ APRN 564.00 UNSPECIFIED CONSTIPATION 01/30/2014 NERISSA MARTINEZ APRN 789.07 ABDOMINAL PAIN GENERALIZED 01/30/2014 RAFAELA PAREDES APRN S 564.00 UNSPECIFIED CONSTIPATION 01/30/2014 RAFAELA PAREDES APRN S 789.07 ABDOMINAL PAIN GENERALIZED 01/30/2014 JAVIER MARVIN, REAGAN Wel[place] 564.00 UNSPECIFIED CONSTIPATION 01/30/2014 JAVIER MARVIN, REAGAN [place] 789.07 ABDOMINAL PAIN GENERALIZED 01/30/2014 JAVIER MARVIN, REAGAN [place] 564.00 UNSPECIFIED CONSTIPATION 01/30/2014 JAVIER MARVIN, REAGAN [place] 789.07 ABDOMINAL PAIN GENERALIZED 01/30/2014 LAITH NGUYEN APRN R 564.00 UNSPECIFIED CONSTIPATION 01/30/2014 LAITH NGUYEN APRN R 789.07 ABDOMINAL PAIN GENERALIZED 01/30/2014 JAVIER MARVIN, REAGAN [place] 564.00 UNSPECIFIED CONSTIPATION 01/30/2014 REAGAN HERRERA PHD 789.07 ABDOMINAL PAIN GENERALIZED 01/30/2014 JAVIER MARVIN, REAGAN [place] 564.00 UNSPECIFIED CONSTIPATION 01/30/2014 JAVIER MARVIN, REAGAN [place] 789.07 ABDOMINAL PAIN GENERALIZED 01/30/2014 ZAKI QUINTANA APRN J 564.00 UNSPECIFIED CONSTIPATION 01/30/2014 ZAKI QUINTANA APRN 789.07 ABDOMINAL PAIN GENERALIZED 03/31/2014 JOHANA RODRIGUEZ, DEBRA A Ot 250.00 DIAB GIULIA WO COMPL, TYPE II OR UNSPEC TY 03/31/2014 JOHANA RODRIGUEZ, DEBRA [place] Ot 300.00 ANXIETY STATE NOS 04/02/2014 NERISSA MARTINEZ APRN 300.00 ANXIETY UNSPEC 04/02/2014 NERISSA MARTINEZ APRN 461.9 SINUSITIS ACUTE 04/02/2014 SHRADDHA CISNEROS APRN N 300.00 ANXIETY UNSPEC 04/02/2014 SHRADDHA CISNEROS APRN N 461.9 SINUSITIS ACUTE 04/02/2014 SHRADDHA CISNEROS APRN N 300.00 ANXIETY UNSPEC 04/02/2014 SHRADDHA CISNEROS APRN N 461.9 SINUSITIS ACUTE 04/02/2014 SHRADDHA CISNEROS APRN N 300.00 ANXIETY UNSPEC 04/02/2014 SHRADDHA CISNEROS APRN N 461.9 SINUSITIS ACUTE 04/02/2014 JULIANA HENDERSON PASCUAL SHRADDHA N 300.00 ANXIETY UNSPEC 04/02/2014 ANDREWSBATSHEVA HENDERSON SHRADDHA GARNER N 461.9 SINUSITIS ACUTE 04/02/2014 JULIANA HENDERSON APRCharles SHRADDHA N 300.00 ANXIETY UNSPEC 04/02/2014 JULIANA HENDERSON APRN, SHRADDHA N 461.9 SINUSITIS ACUTE 04/02/2014 NERISSA MARTINEZ APRN 300.00 ANXIETY UNSPEC 04/02/2014 NERISSA MARTINEZ APRN T 461.9 SINUSITIS ACUTE 04/02/2014 RAFAELA PAREDES APRN S 300.00 ANXIETY UNSPEC 04/02/2014 DEVAN PAREDES APRNA S 461.9 SINUSITIS ACUTE 04/02/2014 JAVIER MARVIN, REAGAN [place] 300.00 ANXIETY UNSPEC 04/02/2014 JAVIER MARVIN, REAGAN [place] 461.9 SINUSITIS ACUTE 04/02/2014 JAVIER MARVIN, REAGAN [place] 300.00 ANXIETY UNSPEC 04/02/2014 JAVIER MARVIN, REAGAN [place] 461.9 SINUSITIS ACUTE 04/02/2014 MARY NGUYEN APRNINA R 300.00 ANXIETY UNSPEC 04/02/2014 MARY NGUYEN APRNINA R 461.9 SINUSITIS ACUTE 04/02/2014 JAVIER MARVIN, REAGAN [place] 300.00 ANXIETY UNSPEC 04/02/2014 REAGAN HERRERA PHD 461.9 SINUSITIS ACUTE 04/02/2014 JAVIER MARVIN, REAGAN [place] 300.00 ANXIETY UNSPEC 04/02/2014 JAVIER MARVIN, REAGAN [place] 461.9 SINUSITIS ACUTE 04/02/2014 ZAKI QUINTANA APRN 300.00 ANXIETY UNSPEC 04/02/2014 ZAKI QUINTANA APRN 461.9 SINUSITIS ACUTE 04/06/2014 DEBRA VAUGHN MD Ot 300.00 ANXIETY STATE NOS 04/06/2014 DEBRA VAUGHN MD Ot 786.09 RESPIRATORY ABNORM NEC 04/10/2014 ANDREWS KALINASHRADDHA PURDY APRN N 388.70 OTALGIA UNSPECIFIED 04/10/2014 ANDREWS KALINASHRADDHA PURDY APRN N 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 04/10/2014 ANDREWS KALINASHRADDHA PURDY APRN N 784.1 THROAT PAIN 04/10/2014 SHRADDHA CISNEROS APRN N 388.70 OTALGIA UNSPECIFIED 04/10/2014 ANDREWS CASHERO BARREL PLATER, SHRADDHA N 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 04/10/2014 ANDREWS CASHERO BARREL PLATER, SHRADDHA N 784.1 THROAT PAIN 04/10/2014 ANDREWS CASHERO BARREL PLATER, SHRADDHA N 388.70 OTALGIA UNSPECIFIED 04/10/2014 ANDREWS CASHERO BARREL PLATER, SHRADDHA N 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 04/10/2014 ANDREWS CASHERO BARREL PLATER, SHRADDHA N 784.1 THROAT PAIN 04/10/2014 ANDREWS CASHERO BARREL PLATER, SHRADDHA N 388.70 OTALGIA UNSPECIFIED 04/10/2014 ANDREWS CASHERO BARREL PLATER, SHRADDHA N 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 04/10/2014 ANDREWS CASHERO BARREL PLATER, SHRADDHA N 784.1 THROAT PAIN 04/10/2014 ANDREWS CASHERO BARREL PLATER, SHRADDHA N 388.70 OTALGIA UNSPECIFIED 04/10/2014 ANDREWS CASHERO BARREL PLATER, SHRADDHA N 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 04/10/2014 ANDREWS CASHERO BARREL PLATER, SHRADDHA N 784.1 THROAT PAIN 04/10/2014 NERISSA MARTINEZ APRN T 388.70 OTALGIA UNSPECIFIED 04/10/2014 NERISSA MARTINEZ APRN T 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 04/10/2014 NERISSA MARTINEZ APRN T 784.1 THROAT PAIN 04/10/2014 RAFAELA PAREDES APRN S 388.70 OTALGIA UNSPECIFIED 04/10/2014 RAFAELA PAREDES APRN S 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 04/10/2014 DEAVN PAREDES APRNA S 784.1 THROAT PAIN 04/10/2014 REAGAN HERRERA PHD 388.70 OTALGIA UNSPECIFIED 04/10/2014 REAGAN HERRERA PHD 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 04/10/2014 REAGAN HERRERA PHD 784.1 THROAT PAIN 04/10/2014 REAGAN HERRERA PHD 388.70 OTALGIA UNSPECIFIED 04/10/2014 REAGAN HERRERA PHD 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 04/10/2014 REAGAN HERRERA PHD 784.1 THROAT PAIN 04/10/2014 LAITH NGUYEN APRN R 388.70 OTALGIA UNSPECIFIED 04/10/2014 LAITH NGUYEN APRN R 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 04/10/2014 LAITH NGUYEN APRN R 784.1 THROAT PAIN 04/10/2014 REAGAN HERRERA PHD 388.70 OTALGIA UNSPECIFIED 04/10/2014 REAGAN HERRERA PHD 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 04/10/2014 REAGAN HERRERA PHD 784.1 THROAT PAIN 04/10/2014 REAGAN HERRERA PHD 388.70 OTALGIA UNSPECIFIED 04/10/2014 REAGAN HERRERA PHD 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 04/10/2014 REAGAN HERRERA PHD 784.1 THROAT PAIN 04/10/2014 ZAKI QUINTANA APRN 388.70 OTALGIA UNSPECIFIED 04/10/2014 ZAKI QUINTANA APRN 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 04/10/2014 ZAKI QUINTANA APRN 784.1 THROAT PAIN 04/18/2014 JOHANA RODRIGUEZ, DEBRA A Ot 300.00 ANXIETY STATE NOS 04/18/2014 JOHANA RODRIGUEZ, DEBRA A Ot 490 BRONCHITIS NOS 04/29/2014 SILVINO RODRIGUEZ, MAMIE Carrasco Ot 300.00 ANXIETY STATE NOS 04/29/2014 SILVINO RODRIGUEZ, MAMIE Carrasco Ot 786.05 SHORTNESS OF BREATH 04/29/2014 SILVINO RODRIGUEZ, MAMIE Carrasco Ot 786.09 RESPIRATORY ABNORM NEC 05/15/2014 SHRADDHA CISNEROS APRN N 784.0 HEADACHE 05/15/2014 SHRADDHA CISNEROS APRN N 784.0 HEADACHE 05/15/2014 NERISSA MARTINEZ APRN 784.0 HEADACHE 05/15/2014 RAFAELA PAREDES APRN 784.0 HEADACHE 05/15/2014 REAGAN HERRERA PHD 784.0 HEADACHE 05/15/2014 REAGAN HERRERA PHD 784.0 HEADACHE 05/15/2014 LAITH NGUYEN APRN R 784.0 HEADACHE 05/15/2014 REAGAN HERRERA PHD 784.0 HEADACHE 05/15/2014 REAGAN HERRERA PHD 784.0 HEADACHE 05/15/2014 ZAKI QUINTANA APRN 784.0 HEADACHE 05/22/2014 ANDREWSBATSHEVA HENDERSON APRN SHRADDHA Charles 780.52 INSOMNIA UNSPECIFIED 05/22/2014 NERISSA MARTINEZ APRN 780.52 INSOMNIA UNSPECIFIED 05/22/2014 RAFAELA PAREDES APRN 780.52 INSOMNIA UNSPECIFIED 05/22/2014 REAGAN HERRERA PHD 780.52 INSOMNIA UNSPECIFIED 05/22/2014 REAGAN HERRERA PHD 780.52 INSOMNIA UNSPECIFIED 05/22/2014 LAITH NGUYEN APRN 780.52 INSOMNIA UNSPECIFIED 05/22/2014 REAGAN HERRERA PHD 780.52 INSOMNIA UNSPECIFIED 05/22/2014 REAGAN HERRERA PHD 780.52 INSOMNIA UNSPECIFIED 05/22/2014 ZAKI QUINTANA APRN 780.52 INSOMNIA UNSPECIFIED 06/14/2014 SILVINO RODRIGUEZ, MAMIE T Ot 300.00 ANXIETY STATE NOS 06/14/2014 MAMIE DUBOIS MD T Ot 780.52 INSOMNIA, UNSPECIFIED 06/14/2014 MAMIE DUBOIS MD T Ot V58.69 OTH MED,LT,CURRENT USE 06/22/2014 NERISSA MARTINEZ APRN 786.05 SHORTNESS OF BREATH 06/22/2014 RAFAELA PAREDES APRN 786.05 SHORTNESS OF BREATH 06/22/2014 REAGAN HERRERA PHD 786.05 SHORTNESS OF BREATH 06/22/2014 REAGAN HERRERA PHD 786.05 SHORTNESS OF BREATH 06/22/2014 LAITH NGUYEN APRN 786.05 SHORTNESS OF BREATH 06/22/2014 REAGAN HERRERA PHD 786.05 SHORTNESS OF BREATH 06/22/2014 REAGAN HERRERA PHD 786.05 SHORTNESS OF BREATH 06/22/2014 ZAKI QUINTANA APRN 786.05 SHORTNESS OF BREATH 07/24/2014 NERISSA MENDOZA DO Ot 250.00 DIAB GIULIA WO COMPL, TYPE II OR UNSPEC TY 07/24/2014 NERISSA MENDOZA DO Ot 276.51 DEHYDRATION 07/24/2014 NERISSA MENDOZA DO Ot 786.50 CHEST PAIN NOS 07/24/2014 NERISSA MENDOZA DO, Ot V15.81 HX OF PAST NONCOMPLIANCE 07/24/2014 NERISSA MENDOZA DO Ot V58.69 OTH MED,LT,CURRENT USE 07/27/2014 DENY RODRIGUEZ, LUPE [place] Ot 786.50 CHEST PAIN NOS 07/30/2014 RAFAELA PAREDES APRN S 386.11 VERTIGO- BENIGN PAROXYSMAL POSITIONAL 07/30/2014 RAFAELA PAREDES APRN S 786.50 CHEST PAIN 07/30/2014 RAFAELA PAREDES APRN S 789.01 ABDOMINAL PAIN RIGHT UPPER QUADRANT 07/30/2014 REAGAN HERRERA PHD 386.11 VERTIGO- BENIGN PAROXYSMAL POSITIONAL 07/30/2014 REAGAN HERRERA PHD 786.50 CHEST PAIN 07/30/2014 REAGAN HERRERA PHD 789.01 ABDOMINAL PAIN RIGHT UPPER QUADRANT 07/30/2014 REAGAN HERRERA PHD 386.11 VERTIGO- BENIGN PAROXYSMAL POSITIONAL 07/30/2014 REAGAN HERRERA PHD 786.50 CHEST PAIN 07/30/2014 REAGAN HERRERA PHD 789.01 ABDOMINAL PAIN RIGHT UPPER QUADRANT 07/30/2014 LAITH NGUYEN APRN R 386.11 VERTIGO- BENIGN PAROXYSMAL POSITIONAL 07/30/2014 LAITH NGUYEN APRN R 786.50 CHEST PAIN 07/30/2014 LAITH NGUYEN APRN R 789.01 ABDOMINAL PAIN RIGHT UPPER QUADRANT 07/30/2014 REAGAN HERRERA PHD 386.11 VERTIGO- BENIGN PAROXYSMAL POSITIONAL 07/30/2014 REAGAN EHRRERA PHD 786.50 CHEST PAIN 07/30/2014 REAGAN HERRERA PHD 789.01 ABDOMINAL PAIN RIGHT UPPER QUADRANT 07/30/2014 REAGAN HERRERA PHD 386.11 VERTIGO- BENIGN PAROXYSMAL POSITIONAL 07/30/2014 REAGAN HERRERA PHD 786.50 CHEST PAIN 07/30/2014 REAGAN HERRERA PHD 789.01 ABDOMINAL PAIN RIGHT UPPER QUADRANT 07/30/2014 ZAKI QUINTANA APRN J 386.11 VERTIGO- BENIGN PAROXYSMAL POSITIONAL 07/30/2014 ZAKI QUINTANA APRN J 786.50 CHEST PAIN 07/30/2014 ZAKI QUINTANA APRN J 789.01 ABDOMINAL PAIN RIGHT UPPER QUADRANT 08/21/2014 ANA ECHOLS Ot 575.8 DIS OF GALLBLADDER NEC 08/21/2014 ANA ECHOLS Ot 789.09 ABDOMINAL PAIN, OTHER SPECIFIED SITE 08/30/2014 IESHA RODRIGUEZ, SHANIQUE S Ot 530.11 REFLUX ESOPHAGITIS 09/04/2014 RAFAELA PAREDES ENTERER Ot 571.8 09/04/2014 RAFAELA PAREDES ENTERER Ot 786.50 09/04/2014 RAFAELA PAREDES ENTERER Ot 789.01 09/04/2014 RAFAELA PAREDES ENTERER Ot 789.1 09/18/2014 ALDEN CARBAJAL BARREL PLATER Ot 250.00 DIAB GIULIA WO COMPL, TYPE II OR UNSPEC TY 09/18/2014 ALDEN CARBAJAL BARREL PLATER Ot 789.09 ABDOMINAL PAIN, OTHER SPECIFIED SITE 09/18/2014 ALDEN CARBAJAL BARREL PLATER Ot V58.69 OTH MED,LT,CURRENT USE 09/29/2014 JOHANA RODRIGUEZ, DEBRA [place] Ot 789.00 ABDOMINAL PAIN, UNSPECIFIED SITE 10/11/2014 MARY RODRIGUEZ, ALISA Ot 250.00 DIAB GIULIA WO COMPL, TYPE II OR UNSPEC TY 10/11/2014 ALISA HERNANDEZ MD Ot 574.10 CHOLELITH W CHOLECYS NEC 10/17/2014 SILVINO RODRIGUEZ, MAMIE Carrasco Ot 462 ACUTE PHARYNGITIS 10/25/2014 DENY RODRIGUEZ, LUPE [place] Ot 388.70 OTALGIA NOS 10/25/2014 DENY RODRIGUEZ, LUPE [place] Ot 401.9 HYPERTENSION NOS 10/25/2014 LUPE BARCLAY MD Ot 465.9 ACUTE URI NOS 10/25/2014 LUPE BARCLAY MD Ot 490 BRONCHITIS NOS 10/25/2014 LUPE BARCLAY MD Ot V58.69 OTH MED,LT,CURRENT USE 10/25/2014 SHRADDHA STEPHENS ENTERER Ot 784.0 10/25/2014 RAFAELA PAREDES ENTERER Ot 571.8 10/25/2014 RAFAELA PAREDES ENTERER Ot 786.50 10/25/2014 RAFAELA PAREDES ENTERER Ot 789.01 10/25/2014 RAFAELA PAREDES ENTERER Ot 789.1 10/25/2014 IESHA RODRIGUEZ, SHANIQUE Soriano Ot V72.84 10/25/2014 ALISA HERNANDEZ MD Ot 575.8 10/25/2014 ALISA HERNANDEZ MD Ot V72.83 10/25/2014 MARY RODRIGUEZ, ALISA Ot V74.8 12/01/2014 Ot 521.00 UNSPEC DENTAL CARIES 12/01/2014 Ot 525.9 DENTAL DISORDER NOS 12/09/2014 DEBRA VAUGHN MD Ot 525.9 DENTAL DISORDER NOS 12/09/2014 DEBRA VAUGHN MD Ot 784.92 JAW PAIN 12/25/2014 WENDY GARNER, LAITH Plasencia 786.59 OTHER CHEST PAIN 12/25/2014 JAVIER MARVIN, REAGAN [place] 786.59 OTHER CHEST PAIN 12/25/2014 JAVIER MARVIN, REAGAN [place] 786.59 OTHER CHEST PAIN 12/25/2014 ZAKI QUINTANA APRN 786.59 OTHER CHEST PAIN 01/07/2015 JAVIER PHD, REAGAN [place] 311 MO DEPRESS NOS 01/07/2015 ZAKI QUINTANA APRN 311 MO DEPRESS NOS 01/08/2015 ZAKI QUINTANA APRN 299.00 AUTISTIC DISORDER CURRENT OR ACTIVE STATE 01/08/2015 ZAKI QUINTANA APRN 300.21 AN PANIC DIS W AGORA 01/14/2015 MAMIE DUBOIS MD Ot 382.9 OTITIS MEDIA NOS 01/14/2015 MAMIE DUBOIS MD Ot 780.4 DIZZINESS AND GIDDINESS 01/14/2015 MAMIE DUBOIS MD Ot 784.0 HEADACHE 01/14/2015 SILVINO RODRIGUEZ, MAMIE Carrasco Ot 787.02 NAUSEA ALONE 03/19/2015 NERISSA MENDOZA DO Ot 250.00 DIAB GIULIA WO COMPL, TYPE II OR UNSPEC TY 03/19/2015 NERISSA MENDOZA DO Ot 401.9 HYPERTENSION NOS 03/19/2015 NERISSA MENDOZA DO Ot 786.50 CHEST PAIN NOS 03/19/2015 NERISSA MENDOZA DO Ot 786.59 CHEST PAIN NEC 03/27/2015 SANTOSH TAM MD Ot 272.4 03/27/2015 SANTOSH TAM MD Ot 785.1 03/27/2015 SANTOSH TAM MD Ot 786.05 03/27/2015 SANTOSH TAM MD Ot 786.50 03/27/2015 SANTOSH TAM MD Ot 272.4 03/27/2015 SANTOSH TAM MD Ot 785.1 03/27/2015 SANTOSH TAM MD Ot 786.05 03/27/2015 YONATAN RODRIGUEZ, SANTOSH Frederick Ot 786.50 04/05/2015 YONATAN RODRIGUEZ, SANTOSH [place] Ot 272.4 04/05/2015 YONATAN RODRIGUEZ, SANTOSH J Ot 785.1 04/05/2015 YONATAN RODRIGUEZ, SANTOSH J Ot 786.05 04/05/2015 YONATAN RODRIGUEZ, SANTOSH [place] Ot 786.50 04/05/2015 YONATAN RODRIGUEZ, SANTOSH [place] Ot 272.4 04/05/2015 YONATAN RODRIGUEZ, SANTOSH J Ot 785.1 04/05/2015 YONATAN RODRIGUEZ, SANTOSH J Ot 786.05 04/05/2015 YONATAN RODRIGUEZ, SANTOSH [place] Ot 786.50 04/10/2015 YONATAN RODRIGUEZ, SANTOSH [place] Ot 272.4 04/10/2015 YONATAN RODRIGUEZ, SANTOSH [place] Ot 785.1 04/10/2015 SANTOSH TAM MD Ot 786.05 04/10/2015 YONATAN RODRIGUEZ, SANTOSH J Ot 786.50 04/12/2015 YONATAN RODRIGUEZ, SANTOSH J Ot 272.4 04/12/2015 YONATAN RODRIGUEZ, SANTOSH Frederick Ot 785.1 04/12/2015 YONATAN RODRIGUEZ, SANTOSH Frederick Ot 786.05 04/12/2015 YONATAN RODRIGUEZ, SANTOSH Frederick Ot 786.50 09/17/2015 MAMIE DUBOIS MD Ot E11.65 TYPE 2 DIABETES MELLITUS WITH HYPERGLYCE 09/17/2015 MAMIE DUBOIS MD Ot E66.9 OBESITY, UNSPECIFIED 09/17/2015 MAMIE DUBOIS MD Ot F41.9 ANXIETY DISORDER, UNSPECIFIED 09/17/2015 MAMIE DUBOIS MD Ot F43.9 REACTION TO SEVERE STRESS, UNSPECIFIED 09/17/2015 MAMIE DUBOIS MD Ot G47.9 SLEEP DISORDER, UNSPECIFIED 09/17/2015 MAMIE DUBOIS MD Ot I10 ESSENTIAL (PRIMARY) HYPERTENSION 09/17/2015 MAMIE DUBOIS MD Ot R00.0 TACHYCARDIA, UNSPECIFIED 09/17/2015 MAMIE DUBOIS MD Ot Z79.[address] MAGISTRATE (CURRENT) USE OF INSULIN 09/23/2015 KRISSY HALL DO Ot E13.10 09/23/2015 HALL DO, KRISSY K Ot E66.9 09/23/2015 HALL DO, KRISSY K Ot E86.0 09/23/2015 HALL DO, KRISSY K Ot F32.9 09/23/2015 HALL DO, KRISSY K Ot F41.9 09/23/2015 HALL DO, KRISSY K Ot F90.9 09/23/2015 HALL DO, KRISSY K Ot I10 09/23/2015 HALL DO, KRISSY K Ot K21.9 09/23/2015 HALL DO, KRISSY K Ot N17.9 09/23/2015 HALL DO, KRISSY K Ot N39.0 09/23/2015 HALL DO, KRISSY K Ot Z68.41 09/23/2015 HALL DO, KRISSY K Ot Z79.4 09/23/2015 HALL DO, KRISSY K Ot Z91.14 09/24/2015 HALL DO, KRISSY K Ot E13.10 09/24/2015 HALL DO, KRISSY K Ot E66.9 09/24/2015 HALL DO, KRISSY K Ot E86.0 09/24/2015 HALL DO, KRISSY K Ot F32.9 09/24/2015 HALL DO, KRISSY K Ot F41.9 09/24/2015 HALL DO, KRISSY K Ot F90.9 09/24/2015 HALL DO, KRISSY K Ot I10 09/24/2015 HALL DO, KRISSY K Ot K21.9 09/24/2015 HALL DO, KRISSY K Ot N17.9 09/24/2015 HALL DO, KRISSY K Ot N39.0 09/24/2015 HALL DO, KRISSY K Ot Z68.41 09/24/2015 HALL DO, KRISSY K Ot Z79.4 09/24/2015 HALL DO, KRISSY K Ot Z91.14 09/24/2015 HALL DO, KRISSY K Ot E13.10 09/24/2015 HALL DO, KRISSY K Ot E66.9 09/24/2015 HALL DO, KRISSY K Ot E86.0 09/24/2015 HALL DO, KRISSY K Ot F32.9 09/24/2015 HALL DO, KRISSY K Ot F41.9 09/24/2015 HALL DO, KRISSY K Ot F90.9 09/24/2015 HALL DO, KRISSY K Ot I10 09/24/2015 HALL DO, KRISSY K Ot K21.9 09/24/2015 HALL DO, KRISSY K Ot N17.9 09/24/2015 HALL DO, KRISSY K Ot N39.0 09/24/2015 HALL DO, KRISSY K Ot Z68.41 09/24/2015 HALL DO, KRISSY K Ot Z79.4 09/24/2015 HALL DO, KRISSY K Ot Z91.14 09/24/2015 HALL DO, KRISSY K Ot E13.10 OTH DIABETES MELLITUS WITH KETOACIDOSIS 09/24/2015 HALL DO, KRISSY K Ot E66.9 OBESITY, UNSPECIFIED 09/24/2015 HALL DO, KRISSY K Ot E86.0 DEHYDRATION 09/24/2015 HALL DO, KRISSY K Ot F32.9 MAJOR DEPRESSIVE DISORDER, SINGLE EPISOD 09/24/2015 HALL DO, KRISSY K Ot F41.9 ANXIETY DISORDER, UNSPECIFIED 09/24/2015 HALL DO, KRISSY K Ot F90.9 ATTENTION-DEFICIT HYPERACTIVITY DISORDER 09/24/2015 HALL DO, KRISSY K Ot I10 ESSENTIAL (PRIMARY) HYPERTENSION 09/24/2015 HALL DO, KRISSY K Ot K21.9 GASTRO-ESOPHAGEAL REFLUX DISEASE WITHOUT 09/24/2015 HALL DO, KRISSY K Ot N17.9 ACUTE KIDNEY FAILURE, UNSPECIFIED 09/24/2015 HALL DO, KRISSY K Ot N39.0 URINARY TRACT INFECTION, SITE NOT SPECIF 09/24/2015 HALL DO, KRISSY K Ot Z68.41 BODY MASS INDEX (BMI) 40.0-44.9, ADULT 09/24/2015 HALL DO, KRISSY K Ot Z79.[address] MAGISTRATE (CURRENT) USE OF INSULIN 09/24/2015 HALL DO, KRISSY K Ot Z91.14 PATIENT'S OTHER NONCOMPLIANCE WITH MEDIC 09/30/2015 LUPE BARCLAY MD Ot E11.9 TYPE 2 DIABETES MELLITUS WITHOUT COMPLIC 09/30/2015 LUPE BARCLAY MD, Ot E66.9 OBESITY, UNSPECIFIED 09/30/2015 LUPE BARCLAY MD, Ot F41.9 ANXIETY DISORDER, UNSPECIFIED 09/30/2015 LUPE BARCLAY MD Ot R21 RASH AND OTHER NONSPECIFIC SKIN ERUPTION 09/30/2015 LUPE BARCLAY MD, Ot Z79.[address] MAGISTRATE (CURRENT) USE OF INSULIN 10/20/2015 GARRETT , TRISTEN K Ot B37.42 CANDIDAL BALANITIS 10/20/2015 GARRETT , TRISTEN K Ot E11.9 TYPE 2 DIABETES MELLITUS WITHOUT COMPLIC 10/20/2015 GARRETT , TRISTEN K Ot E66.9 OBESITY, UNSPECIFIED 10/20/2015 GARRETT , TRISTEN K Ot L30.8 OTHER SPECIFIED DERMATITIS 10/20/2015 GARRETT , TRISTEN K Ot Z79.[address] MAGISTRATE (CURRENT) USE OF INSULIN 01/17/2016 ALDEN CARBAJAL BARREL PLATER Ot E11.65 TYPE 2 DIABETES MELLITUS WITH HYPERGLYCE 01/17/2016 ALDEN CARBAJAL APRN Ot E66.9 OBESITY, UNSPECIFIED 01/17/2016 ALDEN CARBAJAL BARREL PLATER Ot E86.9 VOLUME DEPLETION, UNSPECIFIED 01/17/2016 ALDEN CARBAJAL BARREL PLATER Ot R42 DIZZINESS AND GIDDINESS 01/20/2016 SILVINO RODRIGUEZ, MAMIE Carrasco Ot J18.9 PNEUMONIA, UNSPECIFIED ORGANISM 01/20/2016 SILVINO RODRIGUEZ, MAMIE T Ot R04.2 HEMOPTYSIS 01/20/2016 ALDEN CARBAJAL BARREL PLATER Ot E11.65 TYPE 2 DIABETES MELLITUS WITH HYPERGLYCE 01/20/2016 ALDEN CARBAJAL APRN Ot E66.9 OBESITY, UNSPECIFIED 01/20/2016 ALDEN CARBAJLA BARREL PLATER Ot E86.9 VOLUME DEPLETION, UNSPECIFIED 01/20/2016 ALDEN CARBAJAL BARREL PLATER Ot R42 DIZZINESS AND GIDDINESS 01/21/2016 CHASE CEJA MD Ot E11.65 TYPE 2 DIABETES MELLITUS WITH HYPERGLYCE 01/21/2016 CHASE CEJA MD Ot E66.9 OBESITY, UNSPECIFIED 01/21/2016 CHASE CEJA MD Ot E86.0 DEHYDRATION 01/21/2016 CHASE CEJA MD Ot F32.9 MAJOR DEPRESSIVE DISORDER, SINGLE EPISOD 01/21/2016 CHASE CEJA MD Ot F41.9 ANXIETY DISORDER, UNSPECIFIED 01/21/2016 CHASE CEJA MD Ot F90.9 ATTENTION-DEFICIT HYPERACTIVITY DISORDER 01/21/2016 CHASE CEJA MD Ot G62.9 POLYNEUROPATHY, UNSPECIFIED 01/21/2016 CHASE CEJA MD Ot I10 ESSENTIAL (PRIMARY) HYPERTENSION 01/21/2016 CHASE CEJA MD, Ot J18.9 PNEUMONIA, UNSPECIFIED ORGANISM 01/21/2016 CHASE CEJA MD, Ot K21.9 GASTRO-ESOPHAGEAL REFLUX DISEASE WITHOUT 01/21/2016 CHASE CEJA MD, Ot M79.1 MYALGIA 01/21/2016 CHASE CEJA MD Ot R04.2 HEMOPTYSIS 01/21/2016 CHASE CEJA MD, Ot Z68.41 BODY MASS INDEX (BMI) 40.0-44.9, ADULT 01/21/2016 CHASE CEJA MD, Ot Z79.4 CORRECTION (CURRENT) USE OF INSULIN 01/21/2016 MAMIE DUBOIS MD Ot J18.9 PNEUMONIA, UNSPECIFIED ORGANISM 01/21/2016 MAMIE DUBOIS MD Ot R04.2 HEMOPTYSIS 01/26/2016 MAMIE DUBOIS MD Ot J18.9 PNEUMONIA, UNSPECIFIED ORGANISM 01/26/2016 MAMIE DUBOIS MD Ot R04.2 HEMOPTYSIS 02/07/2016 GARRETT DO, TRISTEN K Ot E10.65 TYPE 1 DIABETES MELLITUS WITH HYPERGLYCE 02/07/2016 GARRETT DO, TRISTEN K Ot E66.01 MORBID (SEVERE) OBESITY DUE TO EXCESS CA 02/07/2016 GARRETT DO, TRISTEN K Ot F41.9 ANXIETY DISORDER, UNSPECIFIED 02/07/2016 GARRETT DO, TRISTEN K Ot E10.65 TYPE 1 DIABETES MELLITUS WITH HYPERGLYCE 02/07/2016 GARRETT DO, TRISTEN K Ot E66.01 MORBID (SEVERE) OBESITY DUE TO EXCESS CA 02/07/2016 GARRETT DO, TRISTEN K Ot F41.9 ANXIETY DISORDER, UNSPECIFIED 02/14/2016 MAMIE DUBOIS MD Ot J18.9 PNEUMONIA, UNSPECIFIED ORGANISM 02/14/2016 MAMIE DUBOIS MD Ot R04.2 HEMOPTYSIS 02/19/2016 MAMIE DUBOIS MD Ot J18.9 PNEUMONIA, UNSPECIFIED ORGANISM 02/19/2016 MAMIE DUBOIS MD Ot R04.2 HEMOPTYSIS 03/07/2016 MAMIE DUBOIS MD Ot E11.65 TYPE 2 DIABETES MELLITUS WITH HYPERGLYCE 03/07/2016 MAMIE DUBOIS MD Ot E66.01 MORBID (SEVERE) OBESITY DUE TO EXCESS CA 03/07/2016 MAMIE DUBOIS MD Ot I10 ESSENTIAL (PRIMARY) HYPERTENSION 03/07/2016 MAMIE DUBOIS MD Ot R07.89 OTHER CHEST PAIN 03/07/2016 MAMIE DUBOIS MD Ot R42 DIZZINESS AND GIDDINESS 03/07/2016 MAMIE DUBOIS MD Ot Z91.14 PATIENT'S OTHER NONCOMPLIANCE WITH MEDIC 03/08/2016 Ot F41.9 ANXIETY DISORDER, UNSPECIFIED 03/09/2016 MAMIE DUBOIS MD Ot E11.65 TYPE 2 DIABETES MELLITUS WITH HYPERGLYCE 03/09/2016 MAMIE DUBOIS MD Ot E66.01 MORBID (SEVERE) OBESITY DUE TO EXCESS CA 03/09/2016 MAMIE DUBOIS MD Ot I10 ESSENTIAL (PRIMARY) HYPERTENSION 03/09/2016 MAMIE DUBOIS MD Ot R07.89 OTHER CHEST PAIN 03/09/2016 MAIME DUBOIS MD Ot R42 DIZZINESS AND GIDDINESS 03/09/2016 MAMIE DUBOIS MD Ot Z91.14 PATIENT'S OTHER NONCOMPLIANCE WITH MEDIC 04/22/2016 SHRADDHA STEPHENS ENTERER Ot 784.0 HEADACHE 04/22/2016 RAFAELA PAREDES ENTERER Ot 571.8 CHRONIC LIVER DIS NEC 04/22/2016 RAFAELA PAREDES ENTERER Ot 786.50 CHEST PAIN NOS 04/22/2016 RAFAELA PAREDES ENTERER Ot 789.01 ABDOMINAL PAIN, RIGHT UPPER QUADRANT 04/22/2016 RAFAELA PAREDES ENTERER Ot 789.1 HEPATOMEGALY 04/22/2016 IESHA RODRIGUEZ, SHANIQUE Soriano Ot V72.84 EXAM PRE-OPERATIVE NOS 04/22/2016 ALISA HERNANDEZ MD Ot 575.8 DIS OF GALLBLADDER NEC 04/22/2016 ALISA HERNANDEZ MD Ot V72.83 EXAM PRE-OPERATIVE NEC 04/22/2016 ALISA HERNANDEZ MD Ot V74.8 SCREEN-BACTERIAL DIS NEC 04/22/2016 SANTOSH TAM MD Ot 272.4 HYPERLIPIDEMIA NEC/NOS 04/22/2016 SANTOSH TAM MD Ot 785.1 PALPITATIONS 04/22/2016 SANTOSH TAM MD Ot 786.05 SHORTNESS OF BREATH 04/22/2016 SANTOSH TAM MD Ot 786.50 CHEST PAIN NOS 04/22/2016 SANTOSH TAM MD Ot 272.4 HYPERLIPIDEMIA NEC/NOS 04/22/2016 SANTOSH TAM MD Ot 785.1 PALPITATIONS 04/22/2016 SANTOSH TAM MD Ot 786.05 SHORTNESS OF BREATH 04/22/2016 SANTOSH TAM MD Ot 786.50 CHEST PAIN NOS 04/22/2016 SANTOSH TAM MD Ot 272.4 HYPERLIPIDEMIA NEC/NOS 04/22/2016 SANTOSH TAM MD Ot 785.1 PALPITATIONS 04/22/2016 SANTOSH TAM MD Ot 786.05 SHORTNESS OF BREATH 04/22/2016 SANTOSH TAM MD Ot 786.50 CHEST PAIN NOS 04/23/2016 NERISSA MARTINEZ ENTERER Ot K76.0 FATTY (CHANGE OF) LIVER, NOT ELSEWHERE C 04/23/2016 NERISSA MARTINEZ ENTERER Ot R10.84 GENERALIZED ABDOMINAL PAIN 05/01/2016 NERISSA MARTINEZ ENTERER Ot K76.0 FATTY (CHANGE OF) LIVER, NOT ELSEWHERE C 05/01/2016 NERISSA MARTINEZ ENTERER Ot R10.84 GENERALIZED ABDOMINAL PAIN 05/15/2016 NERISSA MARTINEZ ENTERER Ot K76.0 FATTY (CHANGE OF) LIVER, NOT ELSEWHERE C 05/15/2016 NERISSA MARTINEZ ENTERER Ot R10.84 GENERALIZED ABDOMINAL PAIN 05/20/2016 NERISSA MARTINEZ ENTERER Ot K76.0 FATTY (CHANGE OF) LIVER, NOT ELSEWHERE C 05/20/2016 NERISSA MARTINEZ ENTERER Ot R10.84 GENERALIZED ABDOMINAL PAIN 07/15/2016 SHRADDHA STEPHENS ENTERER Ot 784.0 HEADACHE 07/15/2016 RAFAELA PAREDES ENTERER Ot 571.8 CHRONIC LIVER DIS NEC 07/15/2016 RAFAELA PAREDES ENTERER Ot 786.50 CHEST PAIN NOS 07/15/2016 RAFAELA PAREDES ENTERER Ot 789.01 ABDOMINAL PAIN, RIGHT UPPER QUADRANT 07/15/2016 LENA, RAFAELA ENTERER Ot 789.1 HEPATOMEGALY 07/15/2016 IESHA RODRIGUEZ, SHANIQUE Soriano Ot V72.84 EXAM PRE-OPERATIVE NOS 07/15/2016 MARY RODRIGUEZ, ALSIA Ot 575.8 DIS OF GALLBLADDER NEC 07/15/2016 ALISA HERNANDEZ MD Ot V72.83 EXAM PRE-OPERATIVE NEC 07/15/2016 ALISA HERNANDEZ MD Ot V74.8 SCREEN-BACTERIAL DIS NEC 07/15/2016 SANTOSH TAM MD Ot 272.4 HYPERLIPIDEMIA NEC/NOS 07/15/2016 SANTOSH TAM MD Ot 785.1 PALPITATIONS 07/15/2016 SANTOSH TAM MD Ot 786.05 SHORTNESS OF BREATH 07/15/2016 SANTOSH TAM MD Ot 786.50 CHEST PAIN NOS 07/15/2016 SANTOSH TAM MD Ot 272.4 HYPERLIPIDEMIA NEC/NOS 07/15/2016 SANTOSH TAM MD Ot 785.1 PALPITATIONS 07/15/2016 SANTOSH TAM MD Ot 786.05 SHORTNESS OF BREATH 07/15/2016 SANTOSH TAM MD Ot 786.50 CHEST PAIN NOS 07/15/2016 SANTOSH TAM MD Ot 272.4 HYPERLIPIDEMIA NEC/NOS 07/15/2016 SANTOSH TAM MD Ot 785.1 PALPITATIONS 07/15/2016 SANTOSH TAM MD Ot 786.05 SHORTNESS OF BREATH 07/15/2016 SANTOSH TAM MD Ot 786.50 CHEST PAIN NOS 07/15/2016 NERISSA MARTINEZ ENTERER Ot K76.0 FATTY (CHANGE OF) LIVER, NOT ELSEWHERE C 07/15/2016 NERISSA MARTINEZ ENTERER Ot R10.84 GENERALIZED ABDOMINAL PAIN 07/15/2016 ALDEN CARBAJAL APRN Ot E11.65 TYPE 2 DIABETES MELLITUS WITH HYPERGLYCE 07/15/2016 ALDEN CARBAJAL APRN Ot E66.01 MORBID (SEVERE) OBESITY DUE TO EXCESS CA 07/15/2016 ALDEN CARBAJAL APRN Ot M62.81 MUSCLE WEAKNESS (GENERALIZED) 07/15/2016 ALDEN CARBAJAL APRN Ot Z79.4 CORRECTION (CURRENT) USE OF INSULIN 07/15/2016 ALDEN CARBAJAL APRN Ot Z79.[address] MAGISTRATE (CURRENT) DRUG THERAPY 07/16/2016 ALDEN CARBAJAL BARREL PLATER Ot E11.65 TYPE 2 DIABETES MELLITUS WITH HYPERGLYCE 07/16/2016 ALDEN CARBAJAL BARREL PLATER Ot E66.01 MORBID (SEVERE) OBESITY DUE TO EXCESS CA 07/16/2016 ALDEN CARBAJAL BARREL PLATER Ot M62.81 MUSCLE WEAKNESS (GENERALIZED) 07/16/2016 ALDEN CARBAJAL BARREL PLATER Ot Z79.[address] MAGISTRATE (CURRENT) USE OF INSULIN 07/16/2016 ALDEN CARBAJAL BARREL PLATER Ot Z79.899 OTHER CORRECTION (CURRENT) DRUG THERAPY 07/16/2016 ALDEN CARBAJAL BARREL PLATER Ot E11.65 TYPE 2 DIABETES MELLITUS WITH HYPERGLYCE 07/16/2016 ALDEN CARBAJAL APRN Ot E66.01 MORBID (SEVERE) OBESITY DUE TO EXCESS CA 07/16/2016 ALDEN CARBAJAL BARREL PLATER Ot M62.81 MUSCLE WEAKNESS (GENERALIZED) 07/16/2016 ALDEN CARBAJAL BARREL PLATER Ot Z79.4 CORRECTION (CURRENT) USE OF INSULIN 07/16/2016 ALDEN CARBAJAL BARREL PLATER Ot Z79.899 OTHER CORRECTION (CURRENT) DRUG THERAPY 07/20/2016 SHRADDHA STEPHENS ENTERER Ot 784.0 HEADACHE 07/20/2016 RAFAELA PAREDES ENTERER Ot 571.8 CHRONIC LIVER DIS NEC 07/20/2016 RAFAELA PAREDES ENTERER Ot 786.50 CHEST PAIN NOS 07/20/2016 RAFAELA PAREDES ENTERER Ot 789.01 ABDOMINAL PAIN, RIGHT UPPER QUADRANT 07/20/2016 RAFAELA PAREDES ENTERER Ot 789.1 HEPATOMEGALY 07/20/2016 IESHA RODRIGUEZ, SHANIQUE Soriano Ot V72.84 EXAM PRE-OPERATIVE NOS 07/20/2016 ALISA HERNANDEZ MD Ot 575.8 DIS OF GALLBLADDER NEC 07/20/2016 ALISA HERNANDEZ MD Ot V72.83 EXAM PRE-OPERATIVE NEC 07/20/2016 ALISA HERNANDEZ MD Ot V74.8 SCREEN-BACTERIAL DIS NEC 07/20/2016 SANTOSH TAM MD Ot 272.4 HYPERLIPIDEMIA NEC/NOS 07/20/2016 SANTOSH TAM MD Ot 785.1 PALPITATIONS 07/20/2016 SANTOSH TAM MD Ot 786.05 SHORTNESS OF BREATH 07/20/2016 SANTOSH TAM MD Ot 786.50 CHEST PAIN NOS 07/20/2016 SANTOSH TAM MD Ot 272.4 HYPERLIPIDEMIA NEC/NOS 07/20/2016 SANTOSH TAM MD Ot 785.1 PALPITATIONS 07/20/2016 SANTOSH TAM MD Ot 786.05 SHORTNESS OF BREATH 07/20/2016 SANTOSH TAM MD Ot 786.50 CHEST PAIN NOS 07/20/2016 SANTOSH TAM MD Ot 272.4 HYPERLIPIDEMIA NEC/NOS 07/20/2016 SANTOSH TAM MD Ot 785.1 PALPITATIONS 07/20/2016 SANTOSH TAM MD Ot 786.05 SHORTNESS OF BREATH 07/20/2016 SANTOSH TAM MD Ot 786.50 CHEST PAIN NOS 07/20/2016 NERISSA MARTINEZ Ot K76.0 FATTY (CHANGE OF) LIVER, NOT ELSEWHERE C 07/20/2016 NERISSA MARTINEZ Ot R10.84 GENERALIZED ABDOMINAL PAIN 07/21/2016 ALDEN CARBAJAL BARREL PLATER Ot E11.65 TYPE 2 DIABETES MELLITUS WITH HYPERGLYCE 07/21/2016 ALDEN CARBAJAL APRN Ot E66.9 OBESITY, UNSPECIFIED 07/21/2016 ALDEN CARBAJAL BARREL PLATER Ot E86.9 VOLUME DEPLETION, UNSPECIFIED 07/21/2016 ALDEN CARBAJAL BARREL PLATER Ot R42 DIZZINESS AND GIDDINESS 07/21/2016 MAMIE DUBOIS MD, Ot J18.9 PNEUMONIA, UNSPECIFIED ORGANISM 07/21/2016 MAMIE DUBOIS MD Ot R04.2 HEMOPTYSIS 08/15/2016 DIANA RUIZ MD Ot E11.9 TYPE 2 DIABETES MELLITUS WITHOUT COMPLIC 08/15/2016 DIANA RUIZ MD Ot E66.01 MORBID (SEVERE) OBESITY DUE TO EXCESS CA 08/15/2016 DIANA RUIZ MD Ot J06.9 ACUTE UPPER RESPIRATORY INFECTION, UNSPE 08/15/2016 DIANA RUIZ MD Ot R04.2 HEMOPTYSIS 08/15/2016 DIANA RUIZ MD Ot R05 COUGH 08/15/2016 SARA MD, DIANA J Ot R10.84 GENERALIZED ABDOMINAL PAIN 08/15/2016 DIANA RUIZ MD J Ot R50.9 FEVER, UNSPECIFIED 08/15/2016 DIANA RUIZ MD J Ot Z79.[address] MAGISTRATE (CURRENT) USE OF ORAL HYPOGLYC 08/15/2016 DIANA RUIZ MD J Ot Z79.[address] MAGISTRATE (CURRENT) DRUG THERAPY 08/21/2016 DIANA RUIZ MD J Ot E11.9 TYPE 2 DIABETES MELLITUS WITHOUT COMPLIC 08/21/2016 DIANA RUIZ MD J Ot E66.01 MORBID (SEVERE) OBESITY DUE TO EXCESS CA 08/21/2016 DIANA RUIZ MD J Ot J06.9 ACUTE UPPER RESPIRATORY INFECTION, UNSPE 08/21/2016 DIANA RUIZ MD J Ot R04.2 HEMOPTYSIS 08/21/2016 DIANA RUIZ MD J Ot R05 COUGH 08/21/2016 DIANA RUIZ MD J Ot R10.84 GENERALIZED ABDOMINAL PAIN 08/21/2016 DIANA RUIZ MD J Ot R50.9 FEVER, UNSPECIFIED 08/21/2016 DIANA RUIZ MD J Ot Z79.84 CORRECTION (CURRENT) USE OF ORAL HYPOGLYC 08/21/2016 DIANA RUIZ MD J Ot Z79.899 OTHER CORRECTION (CURRENT) DRUG THERAPY 08/22/2016 DAVINA MADDOX MD Ot E11.9 TYPE 2 DIABETES MELLITUS WITHOUT COMPLIC 08/22/2016 DAVINA MADDOX MD Ot I10 ESSENTIAL (PRIMARY) HYPERTENSION 08/22/2016 DAVINA MADDOX MD Ot M79.1 MYALGIA 08/22/2016 DAVINA MADDOX MD Ot R11.0 NAUSEA 08/22/2016 DAVINA MADDOX MD Ot Z79.4 CORRECTION (CURRENT) USE OF INSULIN 08/22/2016 DAVINA MADDOX MD Ot Z79.84 CORRECTION (CURRENT) USE OF ORAL HYPOGLYC 08/22/2016 DAVINA MADDOX MD Ot Z79.[address] MAGISTRATE (CURRENT) DRUG THERAPY 08/24/2016 DAVINA MADDOX MD Ot E11.9 TYPE 2 DIABETES MELLITUS WITHOUT COMPLIC 08/24/2016 DAVINA MADDOX MD Ot I10 ESSENTIAL (PRIMARY) HYPERTENSION 08/24/2016 DAVINA MADDOX MD Ot M79.1 MYALGIA 08/24/2016 DAVINA MADDOX MD Ot R11.0 NAUSEA 08/24/2016 DAVINA MADDOX MD Ot Z79.4 CORRECTION (CURRENT) USE OF INSULIN 08/24/2016 DAVINA MADDOX MD Ot Z79.84 CORRECTION (CURRENT) USE OF ORAL HYPOGLYC 08/24/2016 TAN RODRIGUEZ, DAVINA Soriano Ot Z79.899 OTHER CORRECTION (CURRENT) DRUG THERAPY 08/24/2016 DAVINA MADDOX MD Ot E11.9 TYPE 2 DIABETES MELLITUS WITHOUT COMPLIC 08/24/2016 DAVINA MADDOX MD Ot I10 ESSENTIAL (PRIMARY) HYPERTENSION 08/24/2016 DAVINA MADDOX MD Ot M79.1 MYALGIA 08/24/2016 DAVINA MADDOX MD Ot R11.0 NAUSEA 08/24/2016 DAVINA MADDOX MD Ot Z79.4 CORRECTION (CURRENT) USE OF INSULIN 08/24/2016 DAVINA MADDOX MD Ot Z79.[address] MAGISTRATE (CURRENT) USE OF ORAL HYPOGLYC 08/24/2016 DAVINA MADDOX MD Ot Z79.899 OTHER CORRECTION (CURRENT) DRUG THERAPY 08/28/2016 DAVINA MADDOX MD Ot E11.9 TYPE 2 DIABETES MELLITUS WITHOUT COMPLIC 08/28/2016 DAVINA MADDOX MD Ot I10 ESSENTIAL (PRIMARY) HYPERTENSION 08/28/2016 DAVINA MADDOX MD Ot M79.1 MYALGIA 08/28/2016 DAVINA MADDOX MD Ot R11.0 NAUSEA 08/28/2016 DAVINA MADDOX MD Ot Z79.[address] MAGISTRATE (CURRENT) USE OF INSULIN 08/28/2016 DAVINA MADDOX MD Ot Z79.84 CORRECTION (CURRENT) USE OF ORAL HYPOGLYC 08/28/2016 DAVINA MADDOX MD Ot Z79.899 OTHER CORRECTION (CURRENT) DRUG THERAPY 09/25/2016 DAVINA MADDOX MD Ot E11.65 TYPE 2 DIABETES MELLITUS WITH HYPERGLYCE 09/25/2016 DAVINA MADDOX MD Ot E66.01 MORBID (SEVERE) OBESITY DUE TO EXCESS CA 09/25/2016 DAVINA MADDOX MD Ot I10 ESSENTIAL (PRIMARY) HYPERTENSION 09/25/2016 DAVINA MADDOX MD Ot K21.9 GASTRO-ESOPHAGEAL REFLUX DISEASE WITHOUT 09/25/2016 DAVINA MADDOX MD Ot R10.84 GENERALIZED ABDOMINAL PAIN 09/25/2016 DAVINA MADDOX MD Ot Z79.4 CORRECTION (CURRENT) USE OF INSULIN 09/25/2016 DAVINA MADDOX MD Ot Z79.899 OTHER CORRECTION (CURRENT) DRUG THERAPY 09/25/2016 DAVINA MADDOX MD Ot Z91.14 PATIENT'S OTHER NONCOMPLIANCE WITH MEDIC 10/03/2016 DAVINA MADDOX MD Ot E11.65 TYPE 2 DIABETES MELLITUS WITH HYPERGLYCE 10/03/2016 DAVINA MADDOX MD Ot E66.01 MORBID (SEVERE) OBESITY DUE TO EXCESS CA 10/03/2016 DAVINA MADDOX MD Ot I10 ESSENTIAL (PRIMARY) HYPERTENSION 10/03/2016 DAVINA MADDOX MD Ot K21.9 GASTRO-ESOPHAGEAL REFLUX DISEASE WITHOUT 10/03/2016 DAVINA MADDOX MD Ot R10.84 GENERALIZED ABDOMINAL PAIN 10/03/2016 DAVINA MADDOX MD Ot Z79.[address] MAGISTRATE (CURRENT) USE OF INSULIN 10/03/2016 DAVINA MADDOX MD Ot Z79.[address] MAGISTRATE (CURRENT) DRUG THERAPY 10/03/2016 DAVINA MADDOX MD Ot Z91.14 PATIENT'S OTHER NONCOMPLIANCE WITH MEDIC 11/18/2016 MAMIE DUBOIS MD Ot J18.9 PNEUMONIA, UNSPECIFIED ORGANISM 11/18/2016 SILVINO RODRIGUEZ, MAMIE Carrasco Ot R04.2 HEMOPTYSIS 12/19/2016 ALDEN CARBAJAL APRN Ot E11.65 TYPE 2 DIABETES MELLITUS WITH HYPERGLYCE 12/19/2016 ALDEN CARBAJAL APRN Ot E66.9 OBESITY, UNSPECIFIED 12/19/2016 ALDEN CARBAJAL BARREL PLATER Ot E86.9 VOLUME DEPLETION, UNSPECIFIED 12/19/2016 ALDEN CARBAJAL APRN Ot R42 DIZZINESS AND GIDDINESS 12/19/2016 MAMIE DUBOIS MD Ot J18.9 PNEUMONIA, UNSPECIFIED ORGANISM 12/19/2016 MAMIE DUBOIS MD Ot R04.2 HEMOPTYSIS 01/18/2017 MAMIE DUBOIS MD Ot J18.9 PNEUMONIA, UNSPECIFIED ORGANISM 01/18/2017 SILVINO RODRIGUEZ, MAMIE Carrasco Ot R04.2 HEMOPTYSIS 01/24/2017 MAMIE DUBOIS MD Ot R00.0 TACHYCARDIA, UNSPECIFIED 01/24/2017 MAMIE DUBOIS MD Ot R07.89 OTHER CHEST PAIN 01/24/2017 MAMIE DUBOIS MD Ot R07.9 CHEST PAIN, UNSPECIFIED 01/24/2017 MAMIE DUBOIS MD Ot R42 DIZZINESS AND GIDDINESS 01/27/2017 MAMIE DUBOIS MD Ot R00.0 TACHYCARDIA, UNSPECIFIED 01/27/2017 MAMIE DUBOIS MD Ot R07.89 OTHER CHEST PAIN 01/27/2017 MAMIE DUBOIS MD Ot R07.9 CHEST PAIN, UNSPECIFIED 01/27/2017 MAMIE DUBOIS MD Ot R42 DIZZINESS AND GIDDINESS 03/20/2017 ALDEN CARBAJAL BARREL PLATER Ot E11.65 TYPE 2 DIABETES MELLITUS WITH HYPERGLYCE 03/20/2017 ALDEN CARBAJAL BARREL PLATER Ot E66.9 OBESITY, UNSPECIFIED 03/20/2017 ALDEN CARBAJAL BARREL PLATER Ot E86.9 VOLUME DEPLETION, UNSPECIFIED 03/20/2017 ALDEN CARBAJAL BARREL PLATER Ot R42 DIZZINESS AND GIDDINESS 04/20/2017 MAMIE DUBOIS MD Ot J18.9 PNEUMONIA, UNSPECIFIED ORGANISM 04/20/2017 MAMIE DUBOIS MD Ot R04.2 HEMOPTYSIS 05/07/2017 ANA ECHOLS Ot E11.40 TYPE 2 DIABETES MELLITUS WITH DIABETIC N 05/07/2017 ANA ECHOLS Ot E66.01 MORBID (SEVERE) OBESITY DUE TO EXCESS CA 05/07/2017 ANA ECHOLS Ot F32.9 MAJOR DEPRESSIVE DISORDER, SINGLE EPISOD 05/07/2017 ANA ECHOLS Ot F41.9 ANXIETY DISORDER, UNSPECIFIED 05/07/2017 ANA ECHOLS Ot F90.9 ATTENTION-DEFICIT HYPERACTIVITY DISORDER 05/07/2017 ANA ECHOLS Ot I10 ESSENTIAL (PRIMARY) HYPERTENSION 05/07/2017 ANA ECHOLS Ot J45.909 UNSPECIFIED ASTHMA, UNCOMPLICATED 05/07/2017 ANA ECHOLS Ot K21.9 GASTRO-ESOPHAGEAL REFLUX DISEASE WITHOUT 05/07/2017 ANA ECHOLS Ot M79.652 PAIN IN LEFT THIGH 05/07/2017 ANA ECHOLS Ot R20.2 PARESTHESIA OF SKIN 05/07/2017 ANA ECHOLS Ot Z79.4 CORRECTION (CURRENT) USE OF INSULIN 05/07/2017 ANA ECHOLS Ot Z79.84 CORRECTION (CURRENT) USE OF ORAL HYPOGLYC 05/07/2017 ANA ECHOLS Ot Z82.49 FAMILY HX OF ISCHEM HEART DIS AND OTH DI 05/07/2017 ANA ECHOLS Ot Z87.448 PERSONAL HISTORY OF OTHER DISEASES OF UR 05/10/2017 ANA ECHOLS Ot E11.40 TYPE 2 DIABETES MELLITUS WITH DIABETIC N 05/10/2017 ANA ECHOLS Ot E66.01 MORBID (SEVERE) OBESITY DUE TO EXCESS CA 05/10/2017 ANA ECHOLS Ot F32.9 MAJOR DEPRESSIVE DISORDER, SINGLE EPISOD 05/10/2017 ANA ECHOLS Ot F41.9 ANXIETY DISORDER, UNSPECIFIED 05/10/2017 ANA ECHOLS Ot F90.9 ATTENTION-DEFICIT HYPERACTIVITY DISORDER 05/10/2017 ANA ECHOLS Ot I10 ESSENTIAL (PRIMARY) HYPERTENSION 05/10/2017 ANA ECHOLS Ot J45.909 UNSPECIFIED ASTHMA, UNCOMPLICATED 05/10/2017 ANA ECHOLS Ot K21.9 GASTRO-ESOPHAGEAL REFLUX DISEASE WITHOUT 05/10/2017 ANA ECHOLS Ot M79.652 PAIN IN LEFT THIGH 05/10/2017 ANA ECHOLS Ot R20.2 PARESTHESIA OF SKIN 05/10/2017 ANA ECHOLS Ot Z79.4 CORRECTION (CURRENT) USE OF INSULIN 05/10/2017 ANA ECHOLS Ot Z79.84 CORRECTION (CURRENT) USE OF ORAL HYPOGLYC 05/10/2017 ANA ECHOLS Ot Z82.49 FAMILY HX OF ISCHEM HEART DIS AND OTH DI 05/10/2017 ANA ECHOLS Ot Z87.448 PERSONAL HISTORY OF OTHER DISEASES OF UR 05/18/2017 TALITA MARTINS MD, Ot B95.1 STREPTOCOCCUS, GROUP B, CAUSING DISEASES 05/18/2017 TALITA MARTINS MD, Ot E11.40 TYPE 2 DIABETES MELLITUS WITH DIABETIC N 05/18/2017 TALITA MARTINS MD, Ot E11.65 TYPE 2 DIABETES MELLITUS WITH HYPERGLYCE 05/18/2017 TALITA MARTINS MD, Ot E66.01 MORBID (SEVERE) OBESITY DUE TO EXCESS CA 05/18/2017 TALITA MARTINS MD, Ot F12.10 CANNABIS ABUSE, UNCOMPLICATED 05/18/2017 TALITA MARTINS MD, Ot F32.9 MAJOR DEPRESSIVE DISORDER, SINGLE EPISOD 05/18/2017 TALITA MARTINS MD, Ot F41.9 ANXIETY DISORDER, UNSPECIFIED 05/18/2017 TALITA MARTINS MD, Ot F90.9 ATTENTION-DEFICIT HYPERACTIVITY DISORDER 05/18/2017 TALITA MARTINS MD, Ot I10 ESSENTIAL (PRIMARY) HYPERTENSION 05/18/2017 TALITA MARTINS MD, Ot K21.9 GASTRO-ESOPHAGEAL REFLUX DISEASE WITHOUT 05/18/2017 TALITA MARTINS MD, Ot L03.116 CELLULITIS OF LEFT LOWER LIMB 05/18/2017 TALITA MARTINS MD, Ot M79.1 MYALGIA 05/18/2017 TALITA MARTINS MD, Ot Z68.42 BODY MASS INDEX (BMI) 45.0-49.9, ADULT 05/18/2017 TALITA MARTINS MD, Ot Z79.[address] MAGISTRATE (CURRENT) USE OF INSULIN 06/20/2017 MAMIE DUBOIS MD, Ot J18.9 PNEUMONIA, UNSPECIFIED ORGANISM 06/20/2017 MAMIE DUBOIS MD Ot R04.2 HEMOPTYSIS 07/13/2017 LUPE BARCLAY MD, Ot E11.40 TYPE 2 DIABETES MELLITUS WITH DIABETIC N 07/13/2017 LUPE BARCLAY MD, Ot E11.65 TYPE 2 DIABETES MELLITUS WITH HYPERGLYCE 07/13/2017 LUPE BARCLAY MD, Ot E66.01 MORBID (SEVERE) OBESITY DUE TO EXCESS CA 07/13/2017 LUPE BARCLAY MD, Ot E86.0 DEHYDRATION 07/13/2017 LUPE BARCLAY MD Ot F32.9 MAJOR DEPRESSIVE DISORDER, SINGLE EPISOD 07/13/2017 LUPE BARCLAY MD Ot F41.9 ANXIETY DISORDER, UNSPECIFIED 07/13/2017 LUPE BARCLAY MD Ot F90.9 ATTENTION-DEFICIT HYPERACTIVITY DISORDER 07/13/2017 LUPE BARCLAY MD Ot I10 ESSENTIAL (PRIMARY) HYPERTENSION 07/13/2017 LUPE BARCLAY MD Ot J45.909 UNSPECIFIED ASTHMA, UNCOMPLICATED 07/13/2017 LUPE BARCLAY MD Ot K21.9 GASTRO-ESOPHAGEAL REFLUX DISEASE WITHOUT 07/13/2017 LUPE BARCLAY MD Ot R35.0 FREQUENCY OF MICTURITION 07/13/2017 LUPE BARCLAY MD, Ot Z68.42 BODY MASS INDEX (BMI) 45.0-49.9, ADULT 07/13/2017 LUPE BARCLAY MD Ot Z79.4 CORRECTION (CURRENT) USE OF INSULIN 07/13/2017 LUPE BARCLAY MD Ot Z82.49 FAMILY HX OF ISCHEM HEART DIS AND OTH DI 07/19/2017 LUPE BARCLAY MD Ot E11.40 TYPE 2 DIABETES MELLITUS WITH DIABETIC N 07/19/2017 LUPE BARCLAY MD, Ot E11.65 TYPE 2 DIABETES MELLITUS WITH HYPERGLYCE 07/19/2017 LUPE BARCLAY MD Ot E66.01 MORBID (SEVERE) OBESITY DUE TO EXCESS CA 07/19/2017 LUPE BARCLAY MD Ot E86.0 DEHYDRATION 07/19/2017 LUPE BARCLAY MD Ot F32.9 MAJOR DEPRESSIVE DISORDER, SINGLE EPISOD 07/19/2017 LUPE BARCLAY MD Ot F41.9 ANXIETY DISORDER, UNSPECIFIED 07/19/2017 LUPE BARCLAY MD Ot F90.9 ATTENTION-DEFICIT HYPERACTIVITY DISORDER 07/19/2017 LUPE BARCLAY MD Ot I10 ESSENTIAL (PRIMARY) HYPERTENSION 07/19/2017 LUPE BARCLAY MD Ot J45.909 UNSPECIFIED ASTHMA, UNCOMPLICATED 07/19/2017 LUPE BARCLAY MD Ot K21.9 GASTRO-ESOPHAGEAL REFLUX DISEASE WITHOUT 07/19/2017 LUPE BARCLAY MD Ot R35.0 FREQUENCY OF MICTURITION 07/19/2017 LUPE BARCLAY MD Ot Z68.42 BODY MASS INDEX (BMI) 45.0-49.9, ADULT 07/19/2017 LUPE BARCLAY MD Ot Z79.4 CORRECTION (CURRENT) USE OF INSULIN 07/19/2017 LUPE BARCLAY MD Ot Z82.49 FAMILY HX OF ISCHEM HEART DIS AND OTH DI Procedures Code [place] [address] UA LONG DIP 11/08/2012 82784 ROUTINE VENIPUNCTURE 11/22/2012 49781 A1C (IN-HOUSE) 11/22/2012 83962 CMP 11/22/2012 9777654 GFR CALC (RESULT ONLY) 11/22/2012 69747 LIPID PANEL 11/22/2012 36479 CBC 11/22/2012 85020 GLUCOSE FINGER STICK 01/05/2013 80678 A1C (IN-HOUSE) 01/26/2013 92922 ROUTINE VENIPUNCTURE 01/26/2013 63032 TESTOSTERONE TOTAL 01/27/2013 93596 ROUTINE VENIPUNCTURE 03/09/2013 60666 CMP 03/10/2013 8202413 GFR CALC (RESULT ONLY) 03/10/2013 84637 TESTOSTERONE PANEL (FREE, TOTAL, and SHBG) 03/14/2013 87464 GLUCOSE FINGER STICK 06/06/2013 30996 A1C (IN-HOUSE) 06/06/2013 11863 ROUTINE VENIPUNCTURE 08/08/2013 50132 MICRO ALBUMIN-IN HOUSE 08/08/2013 5952475 GFR CALC (RESULT ONLY) 08/08/2013 76934 CMP 08/08/2013 59340 LIPID PANEL 08/08/2013 79599 TSH 08/08/2013 52579 TESTOSTERONE TOTAL 08/09/2013 85646 A1C (IN-HOUSE) 01/09/2014 40672 ROUTINE VENIPUNCTURE 04/02/2014 97270 CBC 04/02/2014 3685112 GFR CALC (RESULT ONLY) 04/02/2014 37405 CMP 04/02/2014 78993 LIPID PANEL 04/02/2014 47570 TSH 04/02/2014 TESTFRTOT TESTOSTERONE FREE AND TOTAL MALE 04/02/2014 44352 THERAPUTIC INJ SQ/IM 04/10/2014 J1040 DEPO MEDROL 80 MG INJ 04/10/2014 46461 OXIMETRY 05/04/[address] HEAD/BRAIN W/O DYE 05/15/2014 05281 SLEEP STUDY ([facility]- SLEEP STUDY) 05/15/2014 Psychiatr [facility], Mental Health 05/15/2014 45401 PULMONARY FUNCTION TEST 06/01/2014 02468 SLEEP STUDY (HOME) 06/01/2014 87210 US GALLBLADDER ULTRASOUND 08/07/2014 16205 HIDA SCAN 08/07/2014 62116 PULMONARY FUNCTION TEST (IN- HOUSE) 08/10/2014 30132 BRONCHODILATION PRE/POST 08/10/2014 06760 RESPIRATORY FLOW VOLUME LOOP 08/10/2014 76047 PULMONARY EDUCATION 08/10/2014 08564 PSYCH DIAGNOSTIC EVALUATION 12/11/2014 42993 PSYTX PT&/FAMILY 30 MINUTES 12/19/2014 06475 [employer]IT[employer] 12/25/2014 16530 PSYTX PT&/FAMILY 30 MINUTES 12/28/2014 70957 PSYTX PT&/FAMILY 45 MINUTES 01/07/2015 Results Test Result Range Complete blood count (CBC) with automated white blood cell (WBC) differential - 07/15/16 10:55 Blood leukocytes automated count (number/volume) 8.6 10*3/uL 4.3-11.0 Blood erythrocytes automated count (number/volume) 5.34 10*6/uL 4.35-5.85 Venous blood hemoglobin measurement (mass/volume) 16.0 g/dL 13.3-17.7 Blood hematocrit (volume fraction) 44 % 40-54 Automated erythrocyte mean corpuscular volume 83 [foz_us] 80-99 Automated erythrocyte mean corpuscular hemoglobin (mass per erythrocyte) 30 pg 25-34 Automated erythrocyte mean corpuscular hemoglobin concentration measurement ( mass/volume) 36 g/dL 32-36 Automated erythrocyte distribution width ratio 12.4 % 10.0-14.5 Automated blood platelet count (count/volume) 180 10*3/uL 130-400 Automated blood platelet mean volume measurement 11.5 [foz_us] 7.4-10.4 Automated blood neutrophils/100 leukocytes 61 % 42-75 Automated blood lymphocytes/100 leukocytes 30 % 12-44 Blood monocytes/100 leukocytes 8 % 0-12 Automated blood eosinophils/100 leukocytes 1 % 0-10 Automated blood basophils/100 leukocytes 0 % 0-10 Blood neutrophils automated count (number/volume) 5.2 10*3 1.8-7.8 Blood lymphocytes automated count (number/volume) 2.6 10*3 1.0-4.0 Blood monocytes automated count (number/volume) 0.7 10*3 0.0-1.0 Automated eosinophil count 0.1 10*3/uL 0.0-0.3 Automated blood basophil count (count/volume) 0.0 10*3/uL 0.0-0.1 Comprehensive metabolic panel - 07/15/16 10:55 Serum or plasma sodium measurement (moles/volume) 136 mmol/L 135-145 Serum or plasma potassium measurement (moles/volume) 4.4 mmol/L 3.6-5.0 Serum or plasma chloride measurement (moles/volume) 106 mmol/L 98-107 Carbon dioxide 20 mmol/L 21-32 Serum or plasma anion gap determination (moles/volume) 10 mmol/L 5-14 Serum or plasma urea nitrogen measurement (mass/volume) 17 mg/dL 7-18 Serum or plasma creatinine measurement (mass/volume) 0.89 mg/dL 0.60-1.30 Serum or plasma urea nitrogen/creatinine mass ratio 19 NRG Serum or plasma creatinine measurement with calculation of estimated glomerular filtration rate > NRG Serum or plasma glucose measurement (mass/volume) 230 mg/dL 70-105 Serum or plasma calcium measurement (mass/volume) 9.7 mg/dL 8.5-10.1 Serum or plasma total bilirubin measurement (mass/volume) 0.4 mg/dL 0.1-1.0 Serum or plasma alkaline phosphatase measurement (enzymatic activity/volume) 70 U/L 40-136 Serum or plasma aspartate aminotransferase measurement (enzymatic activity/ volume) 27 U/L 5-34 Serum or plasma alanine aminotransferase measurement (enzymatic activity/volume ) 42 U/L 0-55 Serum or plasma protein measurement (mass/volume) 6.6 g/dL 6.4-8.2 Serum or plasma albumin measurement (mass/volume) 3.9 g/dL 3.2-4.5 Serum or plasma creatine kinase measurement (enzymatic activity/volume) - 07/15 10:55 Serum or plasma creatine kinase measurement (enzymatic activity/volume) 95 U/L 30-200 Myoglobin, serum - 07/15/16 10:55 Myoglobin, serum 46.4 ng/mL 10.0-92.0 Capillary blood glucose measurement by glucometer (mass/volume) - 07/15/16 11: 05 Capillary blood glucose measurement by glucometer (mass/volume) 102 mg/dL 70-110 Complete urinalysis with reflex to culture - 07/15/16 12:24 Urine color determination YELLOW NRG Urine clarity determination SLIGHTLY CLOUDY NRG Urine pH measurement by test strip 5 5-9 Specific gravity of urine by test strip 1.025 1.016- 1.022 Urine protein assay by test strip, semi-quantitative NEGATIVE NEGATIVE Urine glucose detection by automated test strip 4+ NEGATIVE Erythrocytes detection in urine sediment by light microscopy NEGATIVE NEGATIVE Urine ketones detection by automated test strip 1+ NEGATIVE Urine nitrite detection by test strip NEGATIVE NEGATIVE Urine total bilirubin detection by test strip NEGATIVE NEGATIVE Urine urobilinogen measurement by automated test strip (mass/volume) NORMAL NORMAL Urine leukocyte esterase detection by dipstick NEGATIVE NEGATIVE Automated urine sediment erythrocyte count by microscopy (number/high power field) NONE NRG Automated urine sediment leukocyte count by microscopy (number/high power field ) RARE NRG Bacteria detection in urine sediment by light microscopy NEGATIVE NRG Squamous epithelial cells detection in urine sediment by light microscopy 2-5 NRG Crystals detection in urine sediment by light microscopy NONE NRG Casts detection in urine sediment by light microscopy NONE NRG Mucus detection in urine sediment by light microscopy NEGATIVE NRG Complete urinalysis with reflex to culture NO NRG Capillary blood glucose measurement by glucometer (mass/volume) - 08/15/16 06: 22 Capillary blood glucose measurement by glucometer (mass/volume) 354 mg/dL 70-110 Complete blood count (CBC) with automated white blood cell (WBC) differential - 08/22/16 13:03 Blood leukocytes automated count (number/volume) 7.6 10*3/uL 4.3-11.0 Blood erythrocytes automated count (number/volume) 5.49 10*6/uL 4.35-5.85 Venous blood hemoglobin measurement (mass/volume) 16.1 g/dL 13.3-17.7 Blood hematocrit (volume fraction) 44 % 40-54 Automated erythrocyte mean corpuscular volume 80 [foz_us] 80-99 Automated erythrocyte mean corpuscular hemoglobin (mass per erythrocyte) 29 pg 25-34 Automated erythrocyte mean corpuscular hemoglobin concentration measurement ( mass/volume) 37 g/dL 32-36 Automated erythrocyte distribution width ratio 12.7 % 10.0-14.5 Automated blood platelet count (count/volume) 183 10*3/uL 130-400 Automated blood platelet mean volume measurement 11.8 [foz_us] 7.4-10.4 Automated blood neutrophils/100 leukocytes 64 % 42-75 Automated blood lymphocytes/100 leukocytes 26 % 12-44 Blood monocytes/100 leukocytes 8 % 0-12 Automated blood eosinophils/100 leukocytes 2 % 0-10 Automated blood basophils/100 leukocytes 0 % 0-10 Blood neutrophils automated count (number/volume) 4.8 10*3 1.8-7.8 Blood lymphocytes automated count (number/volume) 1.9 10*3 1.0-4.0 Blood monocytes automated count (number/volume) 0.6 10*3 0.0-1.0 Automated eosinophil count 0.1 10*3/uL 0.0-0.3 Automated blood basophil count (count/volume) 0.0 10*3/uL 0.0-0.1 Comprehensive metabolic panel - 08/22/16 13:03 Serum or plasma sodium measurement (moles/volume) 136 mmol/L 135-145 Serum or plasma potassium measurement (moles/volume) 4.4 mmol/L 3.6-5.0 Serum or plasma chloride measurement (moles/volume) 105 mmol/L 98-107 Carbon dioxide 21 mmol/L 21-32 Serum or plasma anion gap determination (moles/volume) 10 mmol/L 5-14 Serum or plasma urea nitrogen measurement (mass/volume) 15 mg/dL 7-18 Serum or plasma creatinine measurement (mass/volume) 0.95 mg/dL 0.60-1.30 Serum or plasma urea nitrogen/creatinine mass ratio 16 NRG Serum or plasma creatinine measurement with calculation of estimated glomerular filtration rate > NRG Serum or plasma glucose measurement (mass/volume) 340 mg/dL 70-105 Serum or plasma calcium measurement (mass/volume) 9.0 mg/dL 8.5-10.1 Serum or plasma total bilirubin measurement (mass/volume) 0.7 mg/dL 0.1-1.0 Serum or plasma alkaline phosphatase measurement (enzymatic activity/volume) 67 U/L 40-136 Serum or plasma aspartate aminotransferase measurement (enzymatic activity/ volume) 31 U/L 5-34 Serum or plasma alanine aminotransferase measurement (enzymatic activity/volume ) 46 U/L 0-55 Serum or plasma protein measurement (mass/volume) 6.9 g/dL 6.4-8.2 Serum or plasma albumin measurement (mass/volume) 4.2 g/dL 3.2-4.5 Blood lactic acid measurement (moles/volume) - 08/22/16 13:03 Blood lactic acid measurement (moles/volume) 1.6 mmol/L 0.5-2.0 Fibrin D-dimer FEU measurement in platelet poor plasma (mass/volume) - 13:03 Fibrin D-dimer FEU measurement in platelet poor plasma (mass/volume) 0.34 ug/mL 0.00-0.49 Bacterial blood culture - 08/22/16 13:03 Bacterial blood culture NG NRG Complete urinalysis with reflex to culture - 08/22/16 13:07 Urine color determination YELLOW NRG Urine clarity determination CLEAR NRG Urine pH measurement by test strip 5 5-9 Specific gravity of urine by test strip 1.020 1.016- 1.022 Urine protein assay by test strip, semi-quantitative NEGATIVE NEGATIVE Urine glucose detection by automated test strip 4+ NEGATIVE Erythrocytes detection in urine sediment by light microscopy NEGATIVE NEGATIVE Urine ketones detection by automated test strip 3+ NEGATIVE Urine nitrite detection by test strip NEGATIVE NEGATIVE Urine total bilirubin detection by test strip NEGATIVE NEGATIVE Urine urobilinogen measurement by automated test strip (mass/volume) NORMAL NORMAL Urine leukocyte esterase detection by dipstick NEGATIVE NEGATIVE Automated urine sediment erythrocyte count by microscopy (number/high power field) NONE NRG Automated urine sediment leukocyte count by microscopy (number/high power field ) RARE NRG Bacteria detection in urine sediment by light microscopy TRACE NRG Crystals detection in urine sediment by light microscopy NONE NRG Casts detection in urine sediment by light microscopy NONE NRG Mucus detection in urine sediment by light microscopy NEGATIVE NRG Complete urinalysis with reflex to culture NO NRG Bacterial blood culture - 08/22/16 14:07 Bacterial blood culture NG NRG Complete urinalysis with reflex to culture - 09/25/16 16:33 Urine color determination YELLOW NRG Urine clarity determination CLEAR NRG Urine pH measurement by test strip 5 5-9 Specific gravity of urine by test strip 1.015 1.016- 1.022 Urine protein assay by test strip, semi-quantitative NEGATIVE NEGATIVE Urine glucose detection by automated test strip 4+ NEGATIVE Erythrocytes detection in urine sediment by light microscopy NEGATIVE NEGATIVE Urine ketones detection by automated test strip 1+ NEGATIVE Urine nitrite detection by test strip NEGATIVE NEGATIVE Urine total bilirubin detection by test strip NEGATIVE NEGATIVE Urine urobilinogen measurement by automated test strip (mass/volume) NORMAL NORMAL Urine leukocyte esterase detection by dipstick NEGATIVE NEGATIVE Automated urine sediment erythrocyte count by microscopy (number/high power field) NONE NRG Automated urine sediment leukocyte count by microscopy (number/high power field ) NONE NRG Bacteria detection in urine sediment by light microscopy NONE NRG Squamous epithelial cells detection in urine sediment by light microscopy 2-5 NRG Crystals detection in urine sediment by light microscopy NONE NRG Casts detection in urine sediment by light microscopy NONE NRG Mucus detection in urine sediment by light microscopy NEGATIVE NRG Complete urinalysis with reflex to culture NO NRG Complete blood count (CBC) with automated white blood cell (WBC) differential - 09/25/16 16:53 Blood leukocytes automated count (number/volume) 7.2 10*3/uL 4.3-11.0 Blood erythrocytes automated count (number/volume) 5.18 10*6/uL 4.35-5.85 Venous blood hemoglobin measurement (mass/volume) 15.2 g/dL 13.3-17.7 Blood hematocrit (volume fraction) 42 % 40-54 Automated erythrocyte mean corpuscular volume 81 [foz_us] 80-99 Automated erythrocyte mean corpuscular hemoglobin (mass per erythrocyte) 29 pg 25-34 Automated erythrocyte mean corpuscular hemoglobin concentration measurement ( mass/volume) 36 g/dL 32-36 Automated erythrocyte distribution width ratio 13.1 % 10.0-14.5 Automated blood platelet count (count/volume) 163 10*3/uL 130-400 Automated blood platelet mean volume measurement 11.5 [foz_us] 7.4-10.4 Automated blood neutrophils/100 leukocytes 65 % 42-75 Automated blood lymphocytes/100 leukocytes 26 % 12-44 Blood monocytes/100 leukocytes 7 % 0-12 Automated blood eosinophils/100 leukocytes 1 % 0-10 Automated blood basophils/100 leukocytes 0 % 0-10 Blood neutrophils automated count (number/volume) 4.7 10*3 1.8-7.8 Blood lymphocytes automated count (number/volume) 1.9 10*3 1.0-4.0 Blood monocytes automated count (number/volume) 0.5 10*3 0.0-1.0 Automated eosinophil count 0.1 10*3/uL 0.0-0.3 Automated blood basophil count (count/volume) 0.0 10*3/uL 0.0-0.1 Comprehensive metabolic panel - 09/25/16 16:53 Serum or plasma sodium measurement (moles/volume) 132 mmol/L 135-145 Serum or plasma potassium measurement (moles/volume) 4.1 mmol/L 3.6-5.0 Serum or plasma chloride measurement (moles/volume) 103 mmol/L 98-107 Carbon dioxide 16 mmol/L 21-32 Serum or plasma anion gap determination (moles/volume) 13 mmol/L 5-14 Serum or plasma urea nitrogen measurement (mass/volume) 14 mg/dL 7-18 Serum or plasma creatinine measurement (mass/volume) 1.02 mg/dL 0.60-1.30 Serum or plasma urea nitrogen/creatinine mass ratio 14 NRG Serum or plasma creatinine measurement with calculation of estimated glomerular filtration rate > NRG Serum or plasma glucose measurement (mass/volume) 456 mg/dL 70-105 Serum or plasma calcium measurement (mass/volume) 9.4 mg/dL 8.5-10.1 Serum or plasma total bilirubin measurement (mass/volume) 0.4 mg/dL 0.1-1.0 Serum or plasma alkaline phosphatase measurement (enzymatic activity/volume) 76 U/L 40-136 Serum or plasma aspartate aminotransferase measurement (enzymatic activity/ volume) 27 U/L 5-34 Serum or plasma alanine aminotransferase measurement (enzymatic activity/volume ) 47 U/L 0-55 Serum or plasma protein measurement (mass/volume) 6.8 g/dL 6.4-8.2 Serum or plasma albumin measurement (mass/volume) 4.1 g/dL 3.2-4.5 Lipase - 09/25/16 16:53 Lipase 31 U/L 8-78 Capillary blood glucose measurement by glucometer (mass/volume) - 09/25/16 18: 44 Capillary blood glucose measurement by glucometer (mass/volume) 352 mg/dL 70-110 Complete blood count (CBC) with automated white blood cell (WBC) differential - 01/24/17 04:30 Blood leukocytes automated count (number/volume) 9.8 10*3/uL 4.3-11.0 Blood erythrocytes automated count (number/volume) 5.13 10*6/uL 4.35-5.85 Venous blood hemoglobin measurement (mass/volume) 15.2 g/dL 13.3-17.7 Blood hematocrit (volume fraction) 43 % 40-54 Automated erythrocyte mean corpuscular volume 83 [foz_us] 80-99 Automated erythrocyte mean corpuscular hemoglobin (mass per erythrocyte) 30 pg 25-34 Automated erythrocyte mean corpuscular hemoglobin concentration measurement ( mass/volume) 36 g/dL 32-36 Automated erythrocyte distribution width ratio 13.3 % 10.0-14.5 Automated blood platelet count (count/volume) 231 10*3/uL 130-400 Automated blood platelet mean volume measurement 11.5 [foz_us] 7.4-10.4 Automated blood neutrophils/100 leukocytes 52 % 42-75 Automated blood lymphocytes/100 leukocytes 38 % 12-44 Blood monocytes/100 leukocytes 9 % 0-12 Automated blood eosinophils/100 leukocytes 2 % 0-10 Automated blood basophils/100 leukocytes 0 % 0-10 Blood neutrophils automated count (number/volume) 5.0 10*3 1.8-7.8 Blood lymphocytes automated count (number/volume) 3.7 10*3 1.0-4.0 Blood monocytes automated count (number/volume) 0.8 10*3 0.0-1.0 Automated eosinophil count 0.2 10*3/uL 0.0-0.3 Automated blood basophil count (count/volume) 0.0 10*3/uL 0.0-0.1 PT panel in platelet poor plasma by coagulation assay - 01/24/17 04:30 Prothrombin time (PT) in platelet poor plasma by coagulation assay 12.8 s 12.2-14.7 INR in platelet poor plasma or blood by coagulation assay 1.0 0.8-1.4 Activated partial thromboplastin time (aPTT) in platelet poor plasma bycoagulation assay - 01/24/17 04:30 Activated partial thromboplastin time (aPTT) in platelet poor plasma bycoagulation assay 29 s 24-35 Comprehensive metabolic panel - 01/24/17 04:30 Serum or plasma sodium measurement (moles/volume) 139 mmol/L 135-145 Serum or plasma potassium measurement (moles/volume) 3.7 mmol/L 3.6-5.0 Serum or plasma chloride measurement (moles/volume) 104 mmol/L 98-107 Carbon dioxide 18 mmol/L 21-32 Serum or plasma anion gap determination (moles/volume) 17 mmol/L 5-14 Serum or plasma urea nitrogen measurement (mass/volume) 15 mg/dL 7-18 Serum or plasma creatinine measurement (mass/volume) 0.97 mg/dL 0.60-1.30 Serum or plasma urea nitrogen/creatinine mass ratio 15 NRG Serum or plasma creatinine measurement with calculation of estimated glomerular filtration rate > NRG Serum or plasma glucose measurement (mass/volume) 196 mg/dL 70-105 Serum or plasma calcium measurement (mass/volume) 10.3 mg/dL 8.5-10.1 Serum or plasma total bilirubin measurement (mass/volume) 0.4 mg/dL 0.1-1.0 Serum or plasma alkaline phosphatase measurement (enzymatic activity/volume) 58 U/L 40-136 Serum or plasma aspartate aminotransferase measurement (enzymatic activity/ volume) 29 U/L 5-34 Serum or plasma alanine aminotransferase measurement (enzymatic activity/volume ) 57 U/L 0-55 Serum or plasma protein measurement (mass/volume) 7.0 g/dL 6.4-8.2 Serum or plasma albumin measurement (mass/volume) 4.2 g/dL 3.2-4.5 Magnesium - 01/24/17 04:30 Magnesium 2.2 mg/dL 1.8-2.4 Serum or plasma troponin i.cardiac measurement (mass/volume) - 01/24/17 04:30 Serum or plasma troponin i.cardiac measurement (mass/volume) < ng/ mL <0.30 Myoglobin, serum - 01/24/17 04:30 Myoglobin, serum 69.0 ng/mL 10.0-92.0 Fibrin D-dimer FEU measurement in platelet poor plasma (mass/volume) - 04:30 Fibrin D-dimer FEU measurement in platelet poor plasma (mass/volume) 0.27 ug/mL 0.00-0.49 Capillary blood glucose measurement by glucometer (mass/volume) - 01/24/17 05: 34 Capillary blood glucose measurement by glucometer (mass/volume) 151 mg/dL 70-110 Automated blood complete blood count (hemogram) panel - 05/16/17 12:30 Blood leukocytes automated count (number/volume) 11.9 10*3/uL 4.3-11.0 Blood erythrocytes automated count (number/volume) 4.95 10*6/uL 4.35-5.85 Venous blood hemoglobin measurement (mass/volume) 14.6 g/dL 13.3-17.7 Blood hematocrit (volume fraction) 42 % 40-54 Automated erythrocyte mean corpuscular volume 84 [foz_us] 80-99 Automated erythrocyte mean corpuscular hemoglobin (mass per erythrocyte) 30 pg 25-34 Automated erythrocyte mean corpuscular hemoglobin concentration measurement ( mass/volume) 35 g/dL 32-36 Automated erythrocyte distribution width ratio 12.9 % 10.0-14.5 Automated blood platelet count (count/volume) 180 10*3/uL 130-400 Automated blood platelet mean volume measurement 11.8 [foz_us] 7.4-10.4 Blood lactic acid measurement (moles/volume) - 05/16/17 12:30 Blood lactic acid measurement (moles/volume) 1.28 mmol/L 0.50-2.00 PT panel in platelet poor plasma by coagulation assay - 05/16/17 12:30 Prothrombin time (PT) in platelet poor plasma by coagulation assay 13.1 s 12.2-14.7 INR in platelet poor plasma or blood by coagulation assay 1.0 0.8-1.4 Activated partial thromboplastin time (aPTT) in platelet poor plasma bycoagulation assay - 05/16/17 12:30 Activated partial thromboplastin time (aPTT) in platelet poor plasma bycoagulation assay 30 s 24-35 Comprehensive metabolic panel - 05/16/17 12:30 Serum or plasma sodium measurement (moles/volume) 135 mmol/L 135-145 Serum or plasma potassium measurement (moles/volume) 4.5 mmol/L 3.6-5.0 Serum or plasma chloride measurement (moles/volume) 103 mmol/L 98-107 Carbon dioxide 20 mmol/L 21-32 Serum or plasma anion gap determination (moles/volume) 12 mmol/L 5-14 Serum or plasma urea nitrogen measurement (mass/volume) 16 mg/dL 7-18 Serum or plasma creatinine measurement (mass/volume) 0.82 mg/dL 0.60-1.30 Serum or plasma urea nitrogen/creatinine mass ratio 20 NRG Serum or plasma creatinine measurement with calculation of estimated glomerular filtration rate > NRG Serum or plasma glucose measurement (mass/volume) 309 mg/dL 70-105 Serum or plasma calcium measurement (mass/volume) 9.2 mg/dL 8.5-10.1 Serum or plasma total bilirubin measurement (mass/volume) 0.8 mg/dL 0.1-1.0 Serum or plasma alkaline phosphatase measurement (enzymatic activity/volume) 79 U/L 40-136 Serum or plasma aspartate aminotransferase measurement (enzymatic activity/ volume) 22 U/L 5-34 Serum or plasma alanine aminotransferase measurement (enzymatic activity/volume ) 34 U/L 0-55 Serum or plasma protein measurement (mass/volume) 6.6 g/dL 6.4-8.2 Serum or plasma albumin measurement (mass/volume) 3.9 g/dL 3.2-4.5 Serum or plasma C reactive protein measurement (mass/volume) - 05/16/17 12:30 Serum or plasma C reactive protein measurement (mass/volume) 6.73 mg /dL 0.00-0.50 Bacterial blood culture - 05/16/17 12:30 Bacterial blood culture NG NRG Bacterial blood culture - 05/16/17 13:49 Bacterial blood culture NG NRG Complete urinalysis with reflex to culture - 05/16/17 14:45 Urine color determination YELLOW NRG Urine clarity determination CLEAR NRG Urine pH measurement by test strip 5 5-9 Specific gravity of urine by test strip 1.015 1.016- 1.022 Urine protein assay by test strip, semi-quantitative NEGATIVE NEGATIVE Urine glucose detection by automated test strip 4+ NEGATIVE Erythrocytes detection in urine sediment by light microscopy NEGATIVE NEGATIVE Urine ketones detection by automated test strip 4+ NEGATIVE Urine nitrite detection by test strip NEGATIVE NEGATIVE Urine total bilirubin detection by test strip NEGATIVE NEGATIVE Urine urobilinogen measurement by automated test strip (mass/volume) NORMAL NORMAL Urine leukocyte esterase detection by dipstick NEGATIVE NEGATIVE Automated urine sediment erythrocyte count by microscopy (number/high power field) NONE NRG Automated urine sediment leukocyte count by microscopy (number/high power field ) NONE NRG Bacteria detection in urine sediment by light microscopy NEGATIVE NRG Squamous epithelial cells detection in urine sediment by light microscopy 2-5 NRG Crystals detection in urine sediment by light microscopy NONE NRG Casts detection in urine sediment by light microscopy NONE NRG Mucus detection in urine sediment by light microscopy NEGATIVE NRG Complete urinalysis with reflex to culture NO NRG Gram stain microscopy - 05/16/17 14:47 GRAM STAIN RESULT MODERATE # GRAM POSITIVE COCCI IN CHAINS NRG Bacteria identification in wound by culture - 05/16/17 14:47 Bacteria identification in wound by culture [id number] NR QUANTITY OF GROWTH Moderate Growth NRG Capillary blood glucose measurement by glucometer (mass/volume) - 05/16/17 17: 04 Capillary blood glucose measurement by glucometer (mass/volume) 206 mg/dL 70-110 Capillary blood glucose measurement by glucometer (mass/volume) - 05/16/17 20: 25 Capillary blood glucose measurement by glucometer (mass/volume) 301 mg/dL 70-110 Capillary blood glucose measurement by glucometer (mass/volume) - 05/17/17 05: 06 Capillary blood glucose measurement by glucometer (mass/volume) 241 mg/dL 70-110 Complete blood count (CBC) with automated white blood cell (WBC) differential - 05/17/17 05:30 Blood leukocytes automated count (number/volume) 9.6 10*3/uL 4.3-11.0 Blood erythrocytes automated count (number/volume) 4.19 10*6/uL 4.35-5.85 Venous blood hemoglobin measurement (mass/volume) 12.4 g/dL 13.3-17.7 Blood hematocrit (volume fraction) 36 % 40-54 Automated erythrocyte mean corpuscular volume 86 [foz_us] 80-99 Automated erythrocyte mean corpuscular hemoglobin (mass per erythrocyte) 30 pg 25-34 Automated erythrocyte mean corpuscular hemoglobin concentration measurement ( mass/volume) 35 g/dL 32-36 Automated erythrocyte distribution width ratio 12.9 % 10.0-14.5 Automated blood platelet count (count/volume) 153 10*3/uL 130-400 Automated blood platelet mean volume measurement 11.5 [foz_us] 7.4-10.4 Automated blood neutrophils/100 leukocytes 69 % 42-75 Automated blood lymphocytes/100 leukocytes 22 % 12-44 Blood monocytes/100 leukocytes 9 % 0-12 Automated blood eosinophils/100 leukocytes 1 % 0-10 Automated blood basophils/100 leukocytes 0 % 0-10 Blood neutrophils automated count (number/volume) 6.6 10*3 1.8-7.8 Blood lymphocytes automated count (number/volume) 2.1 10*3 1.0-4.0 Blood monocytes automated count (number/volume) 0.8 10*3 0.0-1.0 Automated eosinophil count 0.1 10*3/uL 0.0-0.3 Automated blood basophil count (count/volume) 0.0 10*3/uL 0.0-0.1 Blood lactic acid measurement (moles/volume) - 05/17/17 05:30 Blood lactic acid measurement (moles/volume) 0.79 mmol/L 0.50-2.00 Comprehensive metabolic panel - 05/17/17 05:30 Serum or plasma sodium measurement (moles/volume) 136 mmol/L 135-145 Serum or plasma potassium measurement (moles/volume) 4.2 mmol/L 3.6-5.0 Serum or plasma chloride measurement (moles/volume) 107 mmol/L 98-107 Carbon dioxide 20 mmol/L 21-32 Serum or plasma anion gap determination (moles/volume) 9 mmol/L 5-14 Serum or plasma urea nitrogen measurement (mass/volume) 12 mg/dL 7-18 Serum or plasma creatinine measurement (mass/volume) 0.78 mg/dL 0.60-1.30 Serum or plasma urea nitrogen/creatinine mass ratio 15 NRG Serum or plasma creatinine measurement with calculation of estimated glomerular filtration rate > NRG Serum or plasma glucose measurement (mass/volume) 258 mg/dL 70-105 Serum or plasma calcium measurement (mass/volume) 8.3 mg/dL 8.5-10.1 Serum or plasma total bilirubin measurement (mass/volume) 1.0 mg/dL 0.1-1.0 Serum or plasma alkaline phosphatase measurement (enzymatic activity/volume) 66 U/L 40-136 Serum or plasma aspartate aminotransferase measurement (enzymatic activity/ volume) 20 U/L 5-34 Serum or plasma alanine aminotransferase measurement (enzymatic activity/volume ) 29 U/L 0-55 Serum or plasma protein measurement (mass/volume) 5.7 g/dL 6.4-8.2 Serum or plasma albumin measurement (mass/volume) 3.3 g/dL 3.2-4.5 Serum or plasma C reactive protein measurement (mass/volume) - 05/17/17 05:30 Serum or plasma C reactive protein measurement (mass/volume) 18.30 mg/dL 0.00-0.50 Capillary blood glucose measurement by glucometer (mass/volume) - 05/17/17 11: 14 Capillary blood glucose measurement by glucometer (mass/volume) 284 mg/dL 70-110 Capillary blood glucose measurement by glucometer (mass/volume) - 05/17/17 15: 50 Capillary blood glucose measurement by glucometer (mass/volume) 111 mg/dL 70-110 Serum or plasma troponin i.cardiac measurement (mass/volume) - 05/17/17 16:00 Serum or plasma troponin i.cardiac measurement (mass/volume) < ng/ mL <0.30 Vancomycin trough - 05/17/17 16:00 Vancomycin trough 6.0 ug/mL 10.0-20.0 Capillary blood glucose measurement by glucometer (mass/volume) - 05/17/17 20: 03 Capillary blood glucose measurement by glucometer (mass/volume) 107 mg/dL 70-110 Complete blood count (CBC) with automated white blood cell (WBC) differential - 05/18/17 05:39 Blood leukocytes automated count (number/volume) 8.4 10*3/uL 4.3-11.0 Blood erythrocytes automated count (number/volume) 4.38 10*6/uL 4.35-5.85 Venous blood hemoglobin measurement (mass/volume) 13.0 g/dL 13.3-17.7 Blood hematocrit (volume fraction) 37 % 40-54 Automated erythrocyte mean corpuscular volume 85 [foz_us] 80-99 Automated erythrocyte mean corpuscular hemoglobin (mass per erythrocyte) 30 pg 25-34 Automated erythrocyte mean corpuscular hemoglobin concentration measurement ( mass/volume) 35 g/dL 32-36 Automated erythrocyte distribution width ratio 12.9 % 10.0-14.5 Automated blood platelet count (count/volume) 141 10*3/uL 130-400 Automated blood platelet mean volume measurement 11.7 [foz_us] 7.4-10.4 Automated blood neutrophils/100 leukocytes 68 % 42-75 Automated blood lymphocytes/100 leukocytes 21 % 12-44 Blood monocytes/100 leukocytes 9 % 0-12 Automated blood eosinophils/100 leukocytes 1 % 0-10 Automated blood basophils/100 leukocytes 0 % 0-10 Blood neutrophils automated count (number/volume) 5.7 10*3 1.8-7.8 Blood lymphocytes automated count (number/volume) 1.8 10*3 1.0-4.0 Blood monocytes automated count (number/volume) 0.8 10*3 0.0-1.0 Automated eosinophil count 0.1 10*3/uL 0.0-0.3 Automated blood basophil count (count/volume) 0.0 10*3/uL 0.0-0.1 Whole blood basic metabolic panel - 05/18/17 05:39 Serum or plasma sodium measurement (moles/volume) 137 mmol/L 135-145 Serum or plasma potassium measurement (moles/volume) 3.8 mmol/L 3.6-5.0 Serum or plasma chloride measurement (moles/volume) 110 mmol/L 98-107 Carbon dioxide 19 mmol/L 21-32 Serum or plasma anion gap determination (moles/volume) 8 mmol/L 5-14 Serum or plasma urea nitrogen measurement (mass/volume) 13 mg/dL 7-18 Serum or plasma creatinine measurement (mass/volume) 0.66 mg/dL 0.60-1.30 Serum or plasma urea nitrogen/creatinine mass ratio 20 NRG Serum or plasma creatinine measurement with calculation of estimated glomerular filtration rate > NRG Serum or plasma glucose measurement (mass/volume) 138 mg/dL 70-105 Serum or plasma calcium measurement (mass/volume) 8.5 mg/dL 8.5-10.1 Capillary blood glucose measurement by glucometer (mass/volume) - 05/18/17 06: 19 Capillary blood glucose measurement by glucometer (mass/volume) 137 mg/dL 70-110 Capillary blood glucose measurement by glucometer (mass/volume) - 05/18/17 11: 03 Capillary blood glucose measurement by glucometer (mass/volume) 142 mg/dL 70-110 Capillary blood glucose measurement by glucometer (mass/volume) - 07/13/17 21: 52 Capillary blood glucose measurement by glucometer (mass/volume) 443 mg/dL 70-110 Complete blood count (CBC) with automated white blood cell (WBC) differential - 07/13/17 22:05 Blood leukocytes automated count (number/volume) 7.4 10*3/uL 4.3-11.0 Blood erythrocytes automated count (number/volume) 4.94 10*6/uL 4.35-5.85 Venous blood hemoglobin measurement (mass/volume) 15.0 g/dL 13.3-17.7 Blood hematocrit (volume fraction) 40 % 40-54 Automated erythrocyte mean corpuscular volume 82 [foz_us] 80-99 Automated erythrocyte mean corpuscular hemoglobin (mass per erythrocyte) 30 pg 25-34 Automated erythrocyte mean corpuscular hemoglobin concentration measurement ( mass/volume) 37 g/dL 32-36 Automated erythrocyte distribution width ratio 12.9 % 10.0-14.5 Automated blood platelet count (count/volume) 177 10*3/uL 130-400 Automated blood platelet mean volume measurement 11.9 [foz_us] 7.4-10.4 Automated blood neutrophils/100 leukocytes 55 % 42-75 Automated blood lymphocytes/100 leukocytes 34 % 12-44 Blood monocytes/100 leukocytes 8 % 0-12 Automated blood eosinophils/100 leukocytes 2 % 0-10 Automated blood basophils/100 leukocytes 1 % 0-10 Blood neutrophils automated count (number/volume) 4.1 10*3 1.8-7.8 Blood lymphocytes automated count (number/volume) 2.6 10*3 1.0-4.0 Blood monocytes automated count (number/volume) 0.6 10*3 0.0-1.0 Automated eosinophil count 0.2 10*3/uL 0.0-0.3 Automated blood basophil count (count/volume) 0.0 10*3/uL 0.0-0.1 Comprehensive metabolic panel - 07/13/17 22:05 Serum or plasma sodium measurement (moles/volume) 129 mmol/L 135-145 Serum or plasma potassium measurement (moles/volume) 4.1 mmol/L 3.6-5.0 Serum or plasma chloride measurement (moles/volume) 96 mmol/L 98-107 Carbon dioxide 19 mmol/L 21-32 Serum or plasma anion gap determination (moles/volume) 14 mmol/L 5-14 Serum or plasma urea nitrogen measurement (mass/volume) 18 mg/dL 7-18 Serum or plasma creatinine measurement (mass/volume) 1.29 mg/dL 0.60-1.30 Serum or plasma urea nitrogen/creatinine mass ratio 14 NRG Serum or plasma creatinine measurement with calculation of estimated glomerular filtration rate > NRG Serum or plasma glucose measurement (mass/volume) 423 mg/dL 70-105 Serum or plasma calcium measurement (mass/volume) 9.4 mg/dL 8.5-10.1 Serum or plasma total bilirubin measurement (mass/volume) 0.6 mg/dL 0.1-1.0 Serum or plasma alkaline phosphatase measurement (enzymatic activity/volume) 78 U/L 40-136 Serum or plasma aspartate aminotransferase measurement (enzymatic activity/ volume) 33 U/L 5-34 Serum or plasma alanine aminotransferase measurement (enzymatic activity/volume ) 39 U/L 0-55 Serum or plasma protein measurement (mass/volume) 8.1 g/dL 6.4-8.2 Serum or plasma albumin measurement (mass/volume) 4.0 g/dL 3.2-4.5 Complete urinalysis with reflex to culture - 07/13/17 22:08 Urine color determination YELLOW NRG Urine clarity determination CLEAR NRG Urine pH measurement by test strip 5 5-9 Specific gravity of urine by test strip 1.020 1.016- 1.022 Urine protein assay by test strip, semi-quantitative NEGATIVE NEGATIVE Urine glucose detection by automated test strip 4+ NEGATIVE Erythrocytes detection in urine sediment by light microscopy NEGATIVE NEGATIVE Urine ketones detection by automated test strip 3+ NEGATIVE Urine nitrite detection by test strip NEGATIVE NEGATIVE Urine total bilirubin detection by test strip NEGATIVE NEGATIVE Urine urobilinogen measurement by automated test strip (mass/volume) NORMAL NORMAL Urine leukocyte esterase detection by dipstick 1+ NEGATIVE Automated urine sediment erythrocyte count by microscopy (number/high power field) NONE NRG Automated urine sediment leukocyte count by microscopy (number/high power field ) [HPF] NRG Bacteria detection in urine sediment by light microscopy NEGATIVE NRG Crystals detection in urine sediment by light microscopy NONE NRG Casts detection in urine sediment by light microscopy NONE NRG Mucus detection in urine sediment by light microscopy NEGATIVE NRG Complete urinalysis with reflex to culture NO NRG Yeast detection in urine sediment by light microscopy FEW NRG Capillary blood glucose measurement by glucometer (mass/volume) - 07/13/17 22: 53 Capillary blood glucose measurement by glucometer (mass/volume) 334 mg/dL 70-110 Capillary blood glucose measurement by glucometer (mass/volume) - 07/13/17 23: 39 Capillary blood glucose measurement by glucometer (mass/volume) 234 mg/dL 70-110 Encounters ACCT No. Visit Date/Time Discharge Status Pt. Type Provider Facility Loc./Unit Complaint [id number] 01/08/2015 08:57:00 01/08/2015 23:59:59 CLS Outpatient ZAKI QUINTANA APRN [id number] 01/07/2015 13:05:00 01/07/2015 23:59:59 CLS Outpatient JAVIER MARVIN, REAGAN [place] [id number] 12/28/2014 14:43:00 12/28/2014 23:59:59 CLS Outpatient JAVIER MARVIN, REAGAN [place] [id number] 12/25/2014 14:47:00 12/25/2014 23:59:59 CLS Outpatient LAITH NGUYEN APRN Luis Angel [id number] 12/19/2014 10:11:00 12/19/2014 23:59:59 CLS Outpatient REAGAN HERRERA PHD [id number] 12/11/2014 10:31:00 12/11/2014 23:59:59 CLS Outpatient JAVIER MARVIN, REAGAN [place] [id number] 08/10/2014 15:43:00 08/10/2014 23:59:59 CLS Outpatient LENA RAFAELA GARNER [id number] 06/01/2014 10:32:00 06/01/2014 23:59:59 CLS Outpatient NERISSA MARTINEZ APRN [id number] 05/22/2014 09:39:00 05/22/2014 23:59:59 CLS Outpatient JULIANA HENDERSON APRNSHRADDHA Charles [id number] 05/15/2014 08:46:00 05/15/2014 23:59:59 CLS Outpatient JULIANA HENDERSON APRNSHRADDHA Charles [id number] 05/01/2014 10:21:00 05/01/2014 23:59:59 CLS Outpatient JULIANA HENDERSON APRNSHRADDHA Charles [id number] 04/10/2014 10:32:00 04/10/2014 23:59:59 CLS Outpatient JULIANA HENDERSON APRNSHRADDHA Charles [id number] 04/10/2014 10:32:00 04/10/2014 23:59:59 CLS Outpatient JULIANA HENDERSON APRNSHRADDHA Charles [id number] 04/02/2014 15:43:00 04/02/2014 23:59:59 CLS Outpatient NERISSA MARTINEZ APRN [id number] 01/30/2014 08:08:00 01/30/2014 23:59:59 CLS Outpatient JULIANA HENDERSON APRNSHRADDHA Charles [id number] 01/09/2014 10:37:00 01/09/2014 23:59:59 CLS Outpatient JULIANA HENDERSON APRNSHRADDHA Charles [id number] 12/05/2013 00:00:00 12/05/2013 23:59:59 CLS Outpatient VIKRAM VENTURA DDS [id number] 09/25/2013 09:55:00 09/25/2013 23:59:59 CLS Outpatient ASIYA VENTURA DDS Yoly [id number] 08/08/2013 10:38:00 08/08/2013 23:59:59 CLS Outpatient ESSIE JOHNSON MD [id number] 06/06/2013 11:24:00 06/06/2013 23:59:59 CLS Outpatient SHRADDHA CISNEROS APRN [id number] 12/28/2012 14:41:00 12/28/2012 23:59:59 CLS Outpatient [id number] 12/06/2012 10:57:00 12/06/2012 23:59:59 CLS Outpatient [id number] 11/22/2012 10:57:00 11/22/2012 23:59:59 CLS Outpatient [id number] 11/08/2012 18:47:00 11/08/2012 23:59:59 CLS Outpatient [id number] 12/29/2011 13:24:00 12/29/2011 23:59:59 CLS Outpatient [id number] 05/04/2013 11:19:00 Document Registration [id number] 04/06/2013 15:07:00 Document Registration [id number] 03/09/2013 11:51:00 Document Registration [id number] 02/28/2013 10:58:00 Document Registration [id number] 01/26/2013 11:26:00 Document Registration [id number] 01/05/2013 11:00:00 Document Registration [id number] 01/05/2013 11:00:00 Document Registration [id number] 07/13/2017 21:47:00 07/13/2017 23:44:00 DIS Emergency LUPE BARCLAY MD [facility] ER GENERAL MUSCLE PAIN [id number] 05/16/2017 15:58:00 05/18/2017 13:30:00 DIS Inpatient ELIEZER RODRIGUEZ, TALITA Frederick [facility] 4TH SEPSIS,CELLULITIS L THIGH ,VOLUME DEPLETION,HYPERGL [id number] 05/07/2017 21:17:00 05/07/2017 23:35:00 DIS Emergency ANA ECHOLS [facility] ER LEFT LEG PAIN [id number] 01/24/2017 04:18:00 01/24/2017 07:32:00 DIS Emergency BRUEGGEMAMIE ALLEN MD [facility] ER LIGHT HEADED CHEST PAIN SOA [id number] 09/25/2016 16:30:00 09/25/2016 19:13:00 DIS Emergency DAVINA MADDOX MD [facility] ER ABD PAIN/LOW BACK PAIN/ NAUSEA [id number] 08/22/2016 12:02:00 08/22/2016 15:14:00 DIS Emergency DAVINA MADDOX MD [facility] ER VOMITING/HOT AND COLD FLASHES/PAIN ALL OVER [id number] 08/15/2016 05:41:00 08/15/2016 06:48:00 DIS Emergency DIANA RUIZ MD [facility] CP,COUGHING,FEVER [id number] 07/15/2016 10:28:00 07/15/2016 13:00:00 DIS Emergency ALDEN CARBAJAL APRN [facility] ER MUSCLE PAIN WEAKNESS [id number] 04/22/2016 11:15:00 04/22/2016 23:59:59 CLS Outpatient NERISSA MARTINEZ [facility] RAD ABD PAIN [id number] 03/07/2016 06:29:00 03/07/2016 08:29:00 DIS Emergency MAMIE DUBOIS MD [facility] SOA,CP,TASTING METAL, DIZZY [id number] 02/06/2016 22:20:00 02/07/2016 00:07:00 DIS Emergency TRISTEN TUCKER DO [facility] ER BACK PAIN;HIGH BP; SWEATING [id number] 01/20/2016 08:08:00 01/21/2016 10:58:00 DIS Inpatient CHASE CEJA MD [facility] 4TH RML PNEUMONIA [id number] 01/20/2016 02:39:00 01/20/2016 04:26:00 DIS Outpatient MAMIE DUBOIS MD [facility] COUGHING BLOOD UP [id number] 01/17/2016 20:36:00 01/17/2016 22:30:00 DIS Outpatient ALDEN CARBAJAL APRN [facility] HEAD PRESSURE,DIZZINESS, FATIGUE [id number] 10/20/2015 01:58:00 10/20/2015 02:43:00 DIS Emergency TRISTEN TUCKER DO [facility] GENITAL BLEEDING [id number] 09/30/2015 11:12:00 09/30/2015 16:35:00 DIS Emergency LUPE BARCLAY MD [facility] MULTIPLE COMPLAINTS [id number] 09/19/2015 22:25:00 09/24/2015 12:50:00 DIS Inpatient KRISSY HALL DO Stephen [facility] 4TH DIABETIC KETOACIDOSIS, UTI [id number] 09/17/2015 18:29:00 09/17/2015 19:47:00 DIS Emergency MAMIE DUBOIS MD [facility] MULTIPLE COMPLAINTS [id number] 03/18/2015 21:25:00 03/19/2015 00:15:00 DIS Emergency NERISSA MENDOZA DO [facility] CP,DIZZINESS,ARM NUMBNESS [id number] 03/14/2015 07:41:00 03/14/2015 23:59:59 CLS Outpatient SANTOSH TAM MD [facility] CARD CP PALP,SOB [id number] 03/05/2015 09:43:00 03/05/2015 23:59:59 CLS Outpatient SANTOSH TAM MD [facility] CARD CP,PALP,SOB [id number] 03/04/2015 07:44:00 03/04/2015 23:59:59 CLS Outpatient SANTOSH TAM MD [facility] CARD CP,PALPITATIONS,SOB,HLP [id number] 01/14/2015 13:24:00 01/14/2015 17:06:00 DIS Emergency MAMIE DUBOIS MD [facility] CHEST PAIN;HEADACHE [id number] 12/09/2014 01:03:00 12/09/2014 01:46:00 DIS Emergency DEBRA VAUGHN MD [facility] JAW PAIN [id number] 10/25/2014 09:17:00 10/25/2014 10:44:00 DIS Emergency LUPE BARCLAY MD [facility] CHEST PAIN, PRESSURE [id number] 10/17/2014 08:47:00 10/17/2014 12:09:00 DIS Emergency MAMIE DUBOIS MD [facility] POSS POST OP INFECTION [id number] 10/11/2014 10:57:00 10/11/2014 21:55:00 DIS Outpatient ALISA HERNANDEZ MD [facility] BILIARY DYSKINESIA [id number] 10/05/2014 13:05:00 10/05/2014 23:59:59 CLS Outpatient ALISA HERNANDEZ MD [facility] PREOP BILIARY DYSKINESIA [id number] 09/29/2014 16:04:00 09/29/2014 17:51:00 DIS Emergency DEBRA VAUGHN MD [facility] ABD PAIN [id number] 09/18/2014 16:20:00 09/18/2014 18:31:00 DIS Emergency ALDEN CARBJAAL APRN [facility] SIDE AND BACK PAIN; DIZZINESS;NAUSEA [id number] 08/30/2014 06:44:00 08/30/2014 09:10:00 DIS Outpatient SHANIQUE JULIAN MD [facility] ABD PAIN [id number] 08/29/2014 06:13:00 08/29/2014 23:59:59 CLS Outpatient SHANIQUE JULIAN MD [facility] PREOP ABD PAIN [id number] 08/21/2014 19:06:00 08/21/2014 22:25:00 DIS Emergency ANA ECHOLS [facility] BILAT SIDE PAIN, DIZZINESS [id number] 08/07/2014 08:52:00 08/07/2014 23:59:59 CLS Outpatient RAFAELA PAREDES [facility] RAD RUQ PAIN [id number] 07/27/2014 16:47:00 07/27/2014 18:05:00 DIS Emergency LUPE BARCLAY MD [facility] CHEST PAIN [id number] 07/24/2014 19:00:00 07/24/2014 21:22:00 DIS Emergency NERISSA MENDOZA DO [facility] RAPID HEART RATE, CHEST PAIN [id number] 06/13/2014 20:18:00 06/14/2014 01:08:00 DIS Emergency MAMIE DUBOIS MD [facility] TROUBLE SLEEPING/ SUCIDIAL [id number] 05/18/2014 10:06:00 05/18/2014 23:59:59 CLS Outpatient SHRADDHA STEPHENS [facility] HEADACHES [id number] 04/29/2014 16:54:00 04/29/2014 19:10:00 DIS Emergency MAMIE DUBOIS MD [facility] SOA [id number] 04/18/2014 20:25:00 04/18/2014 21:49:00 DIS Emergency DEBRA VAUGHN MD [facility] DIZZINESS [id number] 04/06/2014 17:44:00 04/06/2014 20:17:00 DIS Emergency DEBRA VAUGHN MD [facility] DIFFICULTY BREATHING [id number] 03/31/2014 03:01:00 03/31/2014 03:36:00 DIS Emergency DEBRA VAUGHN MD [facility] DIFFICULTY BREATHING [id number] 01/28/2014 04:54:00 01/28/2014 06:01:00 DIS Emergency DEBRA VAUGHN MD [facility] ABDOMINAL PAIN [id number] 01/27/2014 10:14:00 01/27/2014 13:13:00 DIS Emergency TRISTEN TUCKER DO [facility] ABD PAIN [id number] 09/19/2013 04:03:00 09/19/2013 05:41:00 DIS Emergency DEBRA VAUGHN MD [facility] NAUSEA,SIDE PAIN,NUMBNESS IN FACE,ARMS SHOULDERS [id number] 01/13/2013 14:21:00 01/13/2013 23:59:59 CLS Outpatient [id number] 11/20/2017 22:36:00 ACT Emergency DENY RODRIGUEZ, LUPE [place] [facility] SHAKING,UNSURE OF BS LEVEL [id number] 03/08/2016 11:55:00 Document Registration [id number] 12/01/2014 07:56:00 Document Registration [id number] 09/23/2011 02:25:00 Document Registration [id number] 09/22/2011 07:21:00 Document Registration
--- NOTE | 2017-11-21 00:31 | ED General ---
General Chief Complaint: General Problems/Pain Stated Complaint: SHAKING,UNSURE OF BS LEVEL Nursing Triage Note: PT TO ED 7 W/ MULTIPLE VAGUE COMPLAINTS. STATES HE BEGAN TO HAVE LEG PAIN R/T HIS NEUROPATHY AND SHAKING, SO HE ATE A PICKLE. PT DOES REPORT HE ATTEMPTED TO CHECK HIS BLOOD SUGAR BUT HIS GLUCOMETER READ "ERROR" ONLY. PT VOICED HE RECENTLY STARTED ON A NEW ANXIETY MED FOR HIS "ANXIETY, TYPE 1". NO DISTRESS OR DISCOMFORT NOTED AT THIS TIME. Nursing Sepsis Screen: No Definite Risk Source of Information: Patient Exam Limitations: No Limitations History of Present Illness Date Seen by Provider: Nov 21, 2017 Time Seen by Provider: 00:10 Initial Comments Here with report of feeling shaky and bleeding that his blood sugar was low. Reports that he took his normal insulin dosing before dinner but the dinner at the [facility] Dinner was less than typical and he believes that he may have had too much insulin for the meal that he had. Reports that he was shaky and weak and tried to take his blood sugar 4 times and his metered just Reading error. He presented here were his initial blood sugar was 87. While waiting to be seen he states he took a nap and feels a little better now but is a little bit shaky. Denies recent illness or other concerns. Timing/Duration: 1-3 Hours Severity: Moderate Associated Systoms: No Chest Pain, No Cough, No Fever/Chills, No Nausea/ Vomiting, No Shortness of Air, Weakness Allergies and Home Medications Allergies Coded Allergies: sertraline (Verified Allergy, Severe, RASH, SWELLING, 01/20/16) "FELT LOOPY" bupropion (Verified Allergy, Unknown, "CAUSED ME TO BANG MY HEAD ON THE WALL", 01/20/16) buspirone (Verified Allergy, Unknown, THROAT SWELLED, 01/20/16) cephalexin (Verified Allergy, Unknown, HIVES, 01/20/16) codeine (Verified Allergy, Unknown, 01/20/16) Home Medications Alprazolam 0.5 Mg Tablet, 0.5 MG PO DAILY, (Reported) LAST FILLED 03/29/17 #90 Alprazolam 0.5 Mg Tablet, 1 MG PO HS, (Reported) TAKES 2 (0.5 MG) TABLETS / LAST FILLED 03/29/17 #90 Baclofen 20 Mg Tablet, 20 MG PO TID, (Reported) Cinnamon Bark 500 Mg Capsule, 1,000 MG PO DAILY, (Reported) TAKES 2 (500MG) CAPSULES Dextroamphetamine/Amphetamine 10 Mg Tablet, 10 MG PO DAILY, (Reported) Fluoxetine HCl 20 Mg Capsule, 20 MG PO DAILY, (Reported) TAKES IN ADDITION TO FLUOXETINE 40 MG DAILY FOR A TOTAL DOSE OF 60 MG Fluoxetine HCl 40 Mg Capsule, 40 MG PO DAILY, (Reported) TAKES IN ADDITION TO FLUOXETINE 20 MG DAILY FOR A TOTAL DOSE OF 60 MG Gabapentin 800 Mg Tablet, 800 MG PO TID, (Reported) Hydrocodone Bit/Acetaminophen 1 Each Tablet, 1 TAB PO Q6H PRN for PAIN-MODERATE, (Reported) Ibuprofen 800 Mg Tablet, 800 MG PO TID PRN for PAIN, (Reported) Insulin Aspart 300 Units/3 Ml Solution, 60 UNITS SQ AC PRN for BLOOD SUGAR, ( Reported) Insulin Detemir 100 Unit/1 Ml Insuln.pen, 80 UNITS SQ BID, (Reported) Lisinopril 20 Mg Tablet, 20 MG PO DAILY, (Reported) Metformin HCl 500 Mg Tab.er.24h, 1,000 MG PO BID, (Reported) TAKES 2 (500 MG) TABLETS Multivitamin 1 Each Tablet, 1 TAB PO DAILY, (Reported) Hoyt-3/Dha/Epa/Fish Oil 1 Each Capsule, 1,000 MG PO BID, (Reported) Omeprazole 40 Mg Capsule.dr, 40 MG PO DAILY, (Reported) Patient Home Medication List Home Medication List Reviewed: Yes Constitutional: see HPI, No chills, fever EENTM: no symptoms reported Respiratory: no symptoms reported Cardiovascular: no symptoms reported Genitourinary: no symptoms reported Musculoskeletal: no symptoms reported All Other Systems Reviewed Negative Unless Noted: Yes Past Tdtxzsb-Tvjeac-Canawz Hx Patient Social History Alcohol Use: Denies Use Recreational Drug Use: No Drug of Choice: CANNIBUS Smoking Status: Never a Smoker 2nd Hand Smoke Exposure: No Recent Foreign Travel: No Contact w/Someone Who Travel: No Recent Infectious Disease Expo: No Recent Hopitalizations: No Physical Abuse: No Sexual Abuse: No Mistreated: No Fear: No Immunizations Up To Date Tetanus Booster (TDap): More than 5yrs PED Vaccines UTD: No Seasonal Allergies Seasonal Allergies: No Surgeries History of Surgeries: Yes (HYPOGONADISM , ) Surgeries: Gallbladder, Testicular Respiratory History of Respiratory Disorde: Yes Respiratory Disorders: Asthma, Chronic Bronchitis Currently Using CPAP: No Currently Using BIPAP: No Cardiovascular History of Cardiac Disorders: Yes Cardiac Disorders: Hypertension, Palpitations Neurological History of Neurological Disord: Yes Neurological Disorders: Neuropathy Reproductive System Hx Reproductive Disorders: Yes (HYPOGONADISM) Sexually Transmitted Disease: No HIV/AIDS: No Genitourinary History of Genitourinary Disor: No Gastrointestinal History of Gastrointestinal Di: Yes Gastrointestinal Disorders: Gastroesophageal Reflux Musculoskeletal History of Musculoskeletal Dis: No Endocrine History of Endocrine Disorders: Yes (MORBID OBESITY) Endocrine Disorders: Diabetes, Insulin dep HEENT History of HEENT Disorders: No Loss of Vision: Denies Hearing Impairment: Denies Cancer History of Cancer: No Psychosocial History of Psychiatric Problem: Yes Behavioral Health Disorders: ADD/ADHD, Anxiety, Depression Suicide Risk Score: 0 Integumentary History of Skin or Integumenta: No Blood Transfusions History of Blood Disorders: No Adverse Reaction to a Blood Tr: No Reviewed Nursing Assessment Reviewed/Agree w Nursing PMH: Yes Family Medical History Significant Family History: No Pertinent Family Hx Family Medial History: Arthritis 19 MOTHER Congenital heart disease Diabetes mellitus 19 FATHER 19 MOTHER FH: brain aneurysm 19 FATHER (cause of - 09/13/2015) Glaucoma 19 FATHER Hypertension 19 FATHER 19 MOTHER Psychosocial problem 19 MOTHER (depression) Physical Exam Vital Signs Vital Signs - First Documented 11/20/17 23:20 Temp 96.8 Pulse 83 Resp 20 B/P (MAP) 139/83 (101) Pulse Ox 96 O2 Delivery Room Air Capillary Refill : Less Than 3 Seconds General Appearance: No Apparent Distress, WD/WN HEENT: PERRL/EOMI, Pharynx Normal Neck: Non Tender, Supple Respiratory: Lungs Clear, Normal Breath Sounds Cardiovascular: Regular Rate, Rhythm, No Murmur Back: Normal Inspection, No CVA Tenderness, No Vertebral Tenderness Extremity: Normal Range of Motion, Non Tender Neurologic/Psychiatric: Alert, Oriented x3, No Motor/Sensory Deficits Skin: Normal Color, Warm/Dry Progress/Results/Core Measures Suspected Sepsis Recent Fever Within 48 Hours: No Infection Criteria Present: None New/Unexplained Altered Menta: No Sepsis Screen: No Definite Risk Sepsis Diagnosis: SIRS Temperature:96.8 Pulse: 83 Respiratory Rate: 20 Blood Pressure 139 /83 Mean: 101 Results/Orders Lab Results Laboratory Tests Test 11/20/17 22:48 11/21/17 01:27 Range/Units Glucometer 87 125 H 70-110 MG/DL Vital Signs/I&O Vital Sign - Last 12Hours 11/20/17 23:20 Temp 96.8 Pulse 83 Resp 20 B/P (MAP) 139/83 (101) Pulse Ox 96 O2 Delivery Room Air Capillary Refill : Less Than 3 Seconds Blood Pressure Mean: 101 Progress Note : Progress Note Seen and evaluated. Meal tray given. We will repeat blood sugar afterwards. 0140: Tolerated male. Repeat blood sugar 127. Discharged home with return precautions. Patient verbalize understanding instructions and agreement with plan. Departure Impression Impression: Primary Impression: Hypoglycemia due to type 1 diabetes mellitus Disposition: HOME, SELF-CARE Condition: Improved Departure-Patient Inst. Decision time for Depature: 00:35 Referrals: [facility] (PCP/Family) Primary Care Physician Patient Instructions: HYPOGLYCEMIA Add. Discharge Instructions: All discharge instructions reviewed with patient and/or family. Voiced understanding. Continue your normal diet and normal insulin dosing. Recheck here monitor to ensure that it is working appropriately. Return for worse pain, fever, vomiting , weakness, breathing problems or other concerns as needed. Follow up with your Dr. in a few days for recheck. LUPE BARCLAY MD Nov 21, 2017 00:31
[2017-11-21 01:50] VITALS: BP 126/78
== END 2017-11-21 01:50 | disposition home or self-care (01) ==
LOC: EDUNIT# 22:34 → ER 22:36
DX: E10.649 Type 1 diabetes mellitus with hypoglycemia without coma (principal); E11.40 Type 2 diabetes mellitus with diabetic neuropathy, unspecified; F41.9 Anxiety disorder, unspecified; F32.9 Major depressive disorder, single episode, unspecified; F90.9 Attention-deficit hyperactivity disorder, unspecified type; E66.09 Other obesity due to excess calories; K21.9 Gastro-esophageal reflux disease without esophagitis; I10 Essential (primary) hypertension; J44.9 Chronic obstructive pulmonary disease, unspecified; Z79.4 Long term (current) use of insulin; Z88.5 Allergy status to narcotic agent; Z88.1 Allergy status to other antibiotic agents; Z88.8 Allergy status to other drugs, medicaments and biological substances
CPT/HCPCS: 82962; 99282

== ENCOUNTER 2018-06-11 21:39 | Emergency (ER) | payer MEDICARE, MEDICAID ==
[~2018-06-11] VITALS: Ht 177.8 cm; Wt 151.5 kg
[~2018-06-11 21:39] MED LIST changes: -BENZ-13 PO; +BENZ100C18 PO; -CODE118S2 PO; +CODE118S4 PO
[2018-06-11] MEDS ORDERED: NS IV 1000 ML 1,000 ML IV ONE (23:48)
--- NOTE | 2018-06-12 00:25 | ED Abdominal Pain ---
General Chief Complaint: Abdominal/GI Problems Stated Complaint: METALIC TASTE IN MOUTH, DIZZY, SIDE PAIN Nursing Triage Note: pt presents to er with complaint of right sided abd pain, dizziness, and metallic taste in mouth. states he was diagnosed with colitis about a month ago. Sepsis Screen: No Definite Risk Source of Information: Patient Exam Limitations: No Limitations History of Present Illness Date Seen by Provider: Jun 11, 2018 Time Seen by Provider: 23:45 Initial Comments Here with report of diffuse abdominal pain and dizziness. Reports that he is currently under therapy for colitis. Has had diarrhea but denies dysuria. Is diabetic and blood sugars ranging in the 170s to 200s for the patient. Has been on clear liquid diet for the last couple of days. States he is not really better after initiation of treatment with the meds. Timing/Duration: 1 Week Severity/Quality: Moderate, Cramping Location: Generalized Abdomen Radiation: No Radiation Activities at Onset: None Modifying Factors: Worsens With Eating; Improves With Resting Associated Symptoms: No Back Pain, No Chest Pain, No Fever/Chills; Nausea/ Vomiting; No Shortness of Air, No Weakness Allergies and Home Medications Allergies Coded Allergies: sertraline (Verified Allergy, Severe, RASH, SWELLING, 01/20/16) "FELT LOOPY" bupropion (Verified Allergy, Unknown, "CAUSED ME TO BANG MY HEAD ON THE WALL", 01/20/16) buspirone (Verified Allergy, Unknown, THROAT SWELLED, 01/20/16) cephalexin (Verified Allergy, Unknown, HIVES, 01/20/16) codeine (Verified Allergy, Unknown, 01/20/16) Home Medications Alprazolam 0.5 Mg Tablet, 0.5 MG PO DAILY, (Reported) LAST FILLED 03/29/17 #90 Alprazolam 0.5 Mg Tablet, 1 MG PO HS, (Reported) TAKES 2 (0.5 MG) TABLETS / LAST FILLED 03/29/17 #90 Baclofen 20 Mg Tablet, 20 MG PO TID, (Reported) Cinnamon Bark 500 Mg Capsule, 1,000 MG PO DAILY, (Reported) TAKES 2 (500MG) CAPSULES Dextroamphetamine/Amphetamine 10 Mg Tablet, 10 MG PO DAILY, (Reported) Fluoxetine HCl 20 Mg Capsule, 20 MG PO DAILY, (Reported) TAKES IN ADDITION TO FLUOXETINE 40 MG DAILY FOR A TOTAL DOSE OF 60 MG Fluoxetine HCl 40 Mg Capsule, 40 MG PO DAILY, (Reported) TAKES IN ADDITION TO FLUOXETINE 20 MG DAILY FOR A TOTAL DOSE OF 60 MG Gabapentin 800 Mg Tablet, 800 MG PO TID, (Reported) Hydrocodone Bit/Acetaminophen 1 Each Tablet, 1 TAB PO Q6H PRN for PAIN-MODERATE, (Reported) Ibuprofen 800 Mg Tablet, 800 MG PO TID PRN for PAIN, (Reported) Insulin Aspart 300 Units/3 Ml Solution, 60 UNITS SQ AC PRN for BLOOD SUGAR, ( Reported) Insulin Detemir 100 Unit/1 Ml Insuln.pen, 80 UNITS SQ BID, (Reported) Lisinopril 20 Mg Tablet, 20 MG PO DAILY, (Reported) Metformin HCl 500 Mg Tab.er.24h, 1,000 MG PO BID, (Reported) TAKES 2 (500 MG) TABLETS Multivitamin 1 Each Tablet, 1 TAB PO DAILY, (Reported) [place]-3/Dha/Epa/Fish Oil 1 Each Capsule, 1,000 MG PO BID, (Reported) Omeprazole 40 Mg Capsule.dr, 40 MG PO DAILY, (Reported) Patient Home Medication List Home Medication List Reviewed: Yes Review of Systems Review of Systems Constitutional: see HPI; No chills, No fever EENTM: No Symptoms Reported Respiratory: No Symptoms Reported Cardiovascular: No Symptoms Reported Gastrointestinal: See HPI, Abdominal Pain, Diarrhea, Nausea; Denies Vomiting Genitourinary: No Symptoms Reported Musculoskeletal: no symptoms reported Skin: no symptoms reported All Other Systems Reviewed Negative Unless Noted: Yes Past Ogopvqw-Othwik-Vavomv Hx Past Med/Social Hx: Reviewed Nursing Past Med/Soc Hx Patient Social History Alcohol Use: Denies Use Recreational Drug Use: No Drug of Choice: CANNIBUS Smoking Status: Never a Smoker 2nd Hand Smoke Exposure: No Recent Foreign Travel: No Contact w/Someone Who Travel: No Recent Infectious Disease Expo: No Recent Hopitalizations: No Immunizations Up To Date Tetanus Booster (TDap): More than 5yrs PED Vaccines UTD: No Seasonal Allergies Seasonal Allergies: No Past Medical History Surgeries: Yes (HYPOGONADISM INFANT, ) Gallbladder, Testicular Respiratory: Yes Asthma, Chronic Bronchitis Currently Using CPAP: No Currently Using BIPAP: No Cardiac: Yes Hypertension, Palpitations Neurological: Yes Neuropathy Reproductive Disorders: Yes (HYPOGONADISM) Sexually Transmitted Disease: No HIV/AIDS: No Genitourinary: No Gastrointestinal: Yes Gastroesophageal Reflux Musculoskeletal: No Endocrine: Yes (MORBID OBESITY) Diabetes, Insulin dep HEENT: No Loss of Vision: Denies Hearing Impairment: Denies Cancer: No Psychosocial: Yes ADD/ADHD, Anxiety, Depression Integumentary: No Blood Disorders: No Adverse Reaction/Blood Tranf: No Family Medical History Reviewed Nursing Family Hx Arthritis 19 MOTHER Congenital heart disease Diabetes mellitus 19 FATHER 19 MOTHER FH: brain aneurysm 19 FATHER (cause of - 09/13/2015) Glaucoma 19 FATHER Hypertension 19 FATHER 19 MOTHER Psychosocial problem 19 MOTHER (depression) No Pertinent Family Hx Physical Exam Vital Signs Vital Signs - First Documented 06/11/18 23:17 Temp 97.4 Pulse 83 Resp 18 B/P (MAP) 138/96 (110) Pulse Ox 97 O2 Delivery Room Air Capillary Refill : Less Than 3 Seconds Height/Weight/BMI Height: 5'10.00" Weight: 334lbs. 0oz. [id number]; 46.8 BMI Method:Stated General Appearance: WD/WN, no apparent distress HEENT: PERRL/EOMI, pharynx normal Neck: full range of motion, supple Respiratory: lungs clear, normal breath sounds Cardiovascular: regular rate, rhythm, no murmur Gastrointestinal: soft, tenderness (mild diffuse) Extremities: non-tender, normal inspection Back: normal inspection, no CVA tenderness, no vertebral tenderness Neurologic/Psychiatric: alert, oriented x 3 Skin: normal color, warm/dry Progress/Results/Core Measures Results/Orders Lab Results Laboratory Tests Test 06/12/18 00:30 06/12/18 00:35 06/12/18 02:33 Range/Units White Blood Count 6.8 4.3-11.0 10^3/uL Red Blood Count 5.88 H 4.35-5.85 10^6/uL Hemoglobin 17.6 13.3-17.7 G/DL Hematocrit 48 40-54 % Mean Corpuscular Volume 81 80-99 FL Mean Corpuscular Hemoglobin 30 25-34 PG Mean Corpuscular Hemoglobin Concent 37 H 32-36 G/DL Red Cell Distribution Width 13.1 10.0-14.5 % Platelet Count 224 130-400 10^3/uL Mean Platelet Volume 10.9 H 7.4-10.4 FL Neutrophils (%) (Auto) 53 42-75 % Lymphocytes (%) (Auto) 37 12-44 % Monocytes (%) (Auto) 7 0-12 % Eosinophils (%) (Auto) 2 0-10 % Basophils (%) (Auto) 0 0-10 % Neutrophils # (Auto) 3.6 1.8-7.8 X 10^3 Lymphocytes # (Auto) 2.5 1.0-4.0 X 10^3 Monocytes # (Auto) 0.5 0.0-1.0 X 10^3 Eosinophils # (Auto) 0.2 0.0-0.3 10^3/uL Basophils # (Auto) 0.0 0.0-0.1 10^3/uL Sodium Level 137 135-145 MMOL/L Potassium Level 4.0 3.6-5.0 MMOL/L Chloride Level 107 98-107 MMOL/L Carbon Dioxide Level 20 L 21-32 MMOL/L Anion Gap 10 5-14 MMOL/L Blood Urea Nitrogen 9 7-18 MG/DL Creatinine 0.85 0.60-1.30 MG/DL Estimat Glomerular Filtration Rate > 60 BUN/Creatinine Ratio 11 Glucose Level 180 H 70-105 MG/DL Calcium Level 9.6 8.5-10.1 MG/DL Corrected Calcium 9.4 8.5-10.1 MG/DL Total Bilirubin 0.9 0.1-1.0 MG/DL Aspartate Amino Transf (AST/SGOT) 52 H 5-34 U/L Alanine Aminotransferase (ALT/SGPT) 77 H 0-55 U/L Alkaline Phosphatase 80 40-136 U/L C-Reactive Protein High Sensitivity 0.59 H 0.00-0.50 MG/DL Total Protein 7.1 6.4-8.2 GM/DL Albumin 4.3 3.2-4.5 GM/DL Urine Color YELLOW Urine Clarity CLEAR Urine pH 5 5-9 Urine Specific Mcdermott 1.025 H 1.016-1.022 Urine Protein NEGATIVE NEGATIVE Urine Glucose (UA) 4+ H NEGATIVE Urine Ketones 2+ H NEGATIVE Urine Nitrite NEGATIVE NEGATIVE Urine Bilirubin NEGATIVE NEGATIVE Urine Urobilinogen NORMAL NORMAL MG/DL Urine Leukocyte Esterase NEGATIVE NEGATIVE Urine RBC (Auto) NEGATIVE NEGATIVE Urine RBC NONE /HPF Urine WBC NONE /HPF Urine Squamous Epithelial Cells 2-5 /HPF Urine Crystals NONE /LPF Urine Bacteria NEGATIVE /HPF Urine Casts NONE /LPF Urine Mucus SMALL H /LPF Urine Culture Indicated NO Glucometer 162 H 70-110 MG/DL My Orders Orders - MOHEGAN,LUPE D MD Cbc With Automated Diff (06/11/18 23:48) Comprehensive Metabolic Panel (06/11/18 23:48) Hs C Reactive Protein (06/11/18 23:48) Ua Culture If Indicated (06/11/18 23:48) Saline Lock/Iv-Start (06/11/18 23:48) Ns Iv 1000 Ml (Sodium Chloride 0.9%) (06/11/18 23:48) Accucheck Stat ONCE (06/12/18 02:00) Saline Lock/Iv-Start (06/12/18 02:00) Ns Iv 1000 Ml (Sodium Chloride 0.9%) (06/12/18 02:00) Medications Given in ED Current Medications Medications Dose Ordered Sig/Nikia Route Start Time Stop Time Status Last Admin Dose Admin Sodium Chloride 1,000 ml @ 0 mls/hr Q0M ONCE IV 06/11/18 23:48 06/11/18 23:53 DC 06/12/18 00:05 1,000 MLS/HR Sodium Chloride 1,000 ml @ 0 mls/hr Q0M ONCE IV 06/12/18 02:00 06/12/18 02:01 DC 06/12/18 02:36 1,000 MLS/HR Vital Signs/I&O 06/11/18 23:17 Temp 97.4 Pulse 83 Resp 18 B/P (MAP) 138/96 (110) Pulse Ox 97 O2 Delivery Room Air Blood Pressure Mean: 110 Progress Progress Note : Progress Note Seen and evaluated. IV, labs and UA ordered. Normal saline 1 L bolus. Monitor patient. 0215: Labs reviewed. No significant findings and no indication for CT scan at this point. We will repeat normal saline 1 L bolus. Repeat blood sugar at this time. 0245: Blood sugars in the 160s. Fluids running. I did discuss the findings and concerns with the patient. Overall I believe he is safe for discharge home and he agrees. Discharged home with return precautions. Patient verbalize understanding instructions and agreement with plan. Departure Impression Primary Impression: Diffuse abdominal pain Additional Impression: Dehydration Disposition: 01 HOME, SELF-CARE Condition: Improved Departure-Patient Inst. Decision time for Depature: 02:51 Referrals: [facility] (PCP/Family) Primary Care Physician Patient Instructions: Acute Abdomen (Belly Pain), Adult (DC), Dehydration, Adult (DC) Add. Discharge Instructions: All discharge instructions reviewed with patient and/or family. Voiced understanding. Follow-up with your doctor this week for recheck and further evaluation. You need referral to a surgeon for further evaluation as well and probable colonoscopy given your current symptoms. Drink plenty of fluids and keep careful monitor and control of your blood sugars. Continue with light diet over the next few days as well as the probiotics. Return for worse pain, fever , vomiting, weakness, breathing problems or other concerns as needed. Copy Copies To 1: KRISSY HALL TIMOTHY D MD Jun 12, 2018 00:25
[2018-06-12 00:58] LABS: BASOPHILS % (AUTO) 0 % (0-10); EOSINOPHILS # (AUTO) 0.2 10^3/uL (0.0-0.3); EOSINOPHILS % (AUTO) 2 % (0-10); HEMATOCRIT 48 % (40-54); HEMOGLOBIN 17.6 G/DL (13.3-17.7); LYMPHOCYTES # (AUTO) 2.5 X 10^3 (1.0-4.0); LYMPHOCYTES % (AUTO) 37 % (12-44); MEAN CORPUSCULAR HEMOGLOBIN 30 PG (25-34); MEAN CORPUSCULAR HGB CONC 37 G/DL (32-36); MEAN CORPUSCULAR VOLUME 81 FL (80-99); MEAN PLATELET VOLUME 10.9 FL (7.4-10.4); MONOCYTES # (AUTO) 0.5 X 10^3 (0.0-1.0); MONOCYTES % (AUTO) 7 % (0-12); NEUTROPHILS # (AUTO) 3.6 X 10^3 (1.8-7.8); NEUTROPHILS % (AUTO) 53 % (42-75); PLATELET COUNT 224 10^3/uL (130-400); RED BLOOD COUNT 5.88 10^6/uL (4.35-5.85); RED CELL DISTRIBUTION WIDTH 13.1 % (10.0-14.5); WHITE BLOOD COUNT 6.8 10^3/uL (4.3-11.0)
[2018-06-12 01:04] LABS: BILIRUBIN,URINE NEGATIVE (NEGATIVE); CLARITY,URINE CLEAR; COLOR,URINE YELLOW; GLUCOSE, URINE (UA) 4+ (NEGATIVE); KETONES,URINE 2+ (NEGATIVE); LEUKOCYTE ESTERASE ,URINE NEGATIVE (NEGATIVE); NITRITE,URINE NEGATIVE (NEGATIVE); PH,URINE 5 (5-9); PROTEIN,URINE NEGATIVE (NEGATIVE); UROBILINOGEN,URINE NORMAL (NORMAL)
[2018-06-12 01:15] LABS: BACTERIA,URINE NEGATIVE /HPF
[2018-06-12 01:22] LABS: ALANINE AMINOTRANSFERASE 77 U/L (0-55); ALBUMIN 4.3 GM/DL (3.2-4.5); ALKALINE PHOSPHATASE 80 U/L (40-136); BILIRUBIN,TOTAL 0.9 MG/DL (0.1-1.0); BUN/CREATININE RATIO 11; CALCIUM 9.6 MG/DL (8.5-10.1); CARBON DIOXIDE 20 MMOL/L (21-32); CHLORIDE 107 MMOL/L (98-107); CREATININE SERUM 0.85 MG/DL (0.60-1.30); GFR ESTIMATED > 60; GLUCOSE 180 MG/DL (70-105); SODIUM 137 MMOL/L (135-145); TOTAL PROTEIN 7.1 GM/DL (6.4-8.2)
[2018-06-12] MEDS ORDERED: NS IV 1000 ML 1,000 ML IV ONE (02:00)
[2018-06-12 03:59] VITALS: BP 138/96
== END 2018-06-12 03:59 | disposition home or self-care (01) ==
LOC: EDUNIT# 21:39 → ER 21:40
DX: R10.84 Generalized abdominal pain (principal); E86.0 Dehydration; J44.9 Chronic obstructive pulmonary disease, unspecified; I10 Essential (primary) hypertension; K21.9 Gastro-esophageal reflux disease without esophagitis; E66.01 Morbid (severe) obesity due to excess calories; F90.9 Attention-deficit hyperactivity disorder, unspecified type; F41.9 Anxiety disorder, unspecified; F32.9 Major depressive disorder, single episode, unspecified; E11.42 Type 2 diabetes mellitus with diabetic polyneuropathy; Z82.49 Family history of ischemic heart disease and other diseases of the circulatory system; Z68.42 Body mass index [BMI] 45.0-49.9, adult; Z87.19 Personal history of other diseases of the digestive system; Z88.8 Allergy status to other drugs, medicaments and biological substances; Z88.5 Allergy status to narcotic agent; Z88.1 Allergy status to other antibiotic agents; Z79.4 Long term (current) use of insulin
CPT/HCPCS: 36415; 80053; 81000; 82962; 85025; 86141; 96360; 96361

== ENCOUNTER 2018-06-28 05:36 | Outpatient (CLI) | payer MEDICARE, MEDICAID ==
[~2018-06-28] VITALS: Ht 177.8 cm; Wt 151.5 kg
[2018-06-28] MEDS ORDERED: INSU200I4 SQ (14:44)
[2018-06-28] MEDS ORDERED: TEST200V27 IM (14:44)
== END 2018-06-28 14:48 | disposition home or self-care (01) ==
LOC: PREOP 05:36
PROVIDERS: ATTEND Surgery
DX: Z01.818 Encounter for other preprocedural examination (principal)

== ENCOUNTER 2018-07-05 10:11 | Day surgery (SDC) | payer MEDICARE, MEDICAID ==
[~2018-07-05] VITALS: Ht 177.8 cm; Wt 151.5 kg
[~2018-07-05 10:11] MED LIST changes: +INSU200I4 SQ; +TEST200V27 IM
--- OUTSIDE RECORDS SUMMARY | 2018-07-05 10:33 | XMS REPORT ---
Author Author NERISSA MARTINEZ [facility] Address [address] [place] [address] Care Team Providers Care Pressure Tester Operator Name Role Phone NERISSA MARTINEZ Unavailable PROBLEMS Type Condition ICD9-CM Code [id number] Code Onset Dates Condition Status SNOMED Code Problem Diabetes type 2, controlled E11.9 Active 62200707 Problem Other male erectile dysfunction N52.8 Active 997427014 Problem Obesity, unspecified E66.9 Active 810812184 Problem Gastro-esophageal reflux disease with esophagitis K21.0 Active 492326472 Problem Insomnia, unspecified G47.00 Active 989049565 Problem 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 Active 65571777 Problem Generalized anxiety disorder F41.1 Active 18922031 Problem Chronic fatigue R53.82 Active 70475269 Problem Diabetes type 2, uncontrolled E11.65 Active 675191910 Problem BMI 45.0-49.9, adult Z68.42 Active 039791440 Problem Hypertension I10 Active 83029921 Problem Type 2 diabetes mellitus 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 E11.9 Active 139524810 Problem Mild episode of recurrent major depressive disorder F33.0 Active 041655123 Problem Type 2 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 Active 46938144 Problem Neuropathy G62.9 Active 863419562 Problem Uncontrolled type 2 diabetes mellitus with hyperglycemia E11.65 Active 253829943 Problem 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 Active 098905472 Problem Polyneuropathy G62.9 Active 25392606 Problem Type 2 diabetes mellitus with hyperglycemia E11.65 Active 088849701 Problem Hypogonadism in male E29.1 Active 26140213 Problem Seasonal allergies J30.2 Active 930899342 Problem Morbid obesity due to excess calories E66.01 Active 953273529 Problem Other chronic pain G89.29 Active 70620184 Problem GERD without esophagitis K21.9 Active 529495302 Problem Type 2 diabetes mellitus with hyperglycemia E11.65 Active 631468414 Problem Controlled type 2 diabetes mellitus without complication, without long -term current use of insulin E11.9 Active 912790538 Problem Diabetic polyneuropathy associated with type 2 diabetes mellitus E11.42 Active 90469608 Problem Anxiety F41.9 Active 91694101 Problem Hypertriglyceridemia E78.1 Active 235283195 Problem intermediate 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.4 Active 277314546 Problem Diverticulitis of small intestine without perforation or abscess without bleeding K57.12 Active 04665797 ALLERGIES No Information ENCOUNTERS Encounter Location Date Diagnosis [place] [address] [address]- [address] Aug, [place] [address] 21839- 7346 Jul, [place] [address] 00723- 2892 Jun, Neuropathy G62.9 ; Uncontrolled type 2 diabetes mellitus with hyperglycemia E11.65 and Colitis K52.9 [place] [address] 19595- 6248 Jun, [place] [address] 67688- 7932 Jun, [place] [address] 21538- 4557 Jun, [place] [address] [place] [id number] [place] [address] 68692- 5119 May, Generalized abdominal pain R10.84 ; Hypogonadism in male E29.1 ; Hospital discharge follow-up Z09 and BMI 45.0-49.9, adult Z68.42 [place] [address] [place] [id number] [place] [address] 54636- 5156 25 May, 2018 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 ; Generalized anxiety disorder F41.1 and BMI 45.0-49.9, adult Z68.42 [place] [address] [place] [id number] [place] [address] 57626- 1832 May, Uncontrolled type 2 diabetes mellitus with hyperglycemia E11.65 [place] [address] 30748- 9639 May, Uncontrolled type 2 diabetes mellitus with hyperglycemia E11.65 ; BMI 45.0-49.9, adult Z68.42 and Colitis K52.9 [place] [address] [place] [id number] [place] [address] 40359- 0839 May, [facility] [address] 09651- 4075 May, [facility] [address] 00345 -8681 Apr, Colitis K52.9 ; Abdominal discomfort R10.9 and Anxiety F41.9 [place] [address] 19873- 8287 Apr, [place] [address] 30459- 2533 Apr, Colitis K52.9 and BMI 45.0-49.9, adult Z68.42 [place] [address] [place] [id number] [place] [address] 67918- 2339 Apr, Diabetes type 2, uncontrolled E11.65 [place] [address] [place] [id number] [place] [address] 94799- 1966 Apr, 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 ; Generalized anxiety disorder F41.1 and BMI 45.0-49.9, adult Z68.42 [place] [address] [place] [id number] [place] [address] 44053- 6587 Apr, [place] [address] [place] [id number] [place] [address] 13904- 7597 Apr, BMI 45.0-49.9, adult Z68.42 [place] [address] 27763- 7958 Apr, Candidiasis B37.9 ; Pain in right shoulder M25.511 ; Pain in left shoulder M25.512 ; Other chronic pain G89.29 and Morbid obesity due to excess calories E66.01 [place] [address] [place] [id number] [place] [address] 41790- 5720 Apr, Hypogonadism in male E29.1 [facility] [address] [place] [id number] [place] [address] 21818 -2491 Mar, Yeast dermatitis B37.2 and Sensation of foreign body in throat R09.89 [place] [address] 88787- 8438 Mar, [facility] [address] 66412- 7962 Mar, Hypogonadism in male E29.1 [place] [address] 63752- 3133 Mar, Hypogonadism in male E29.1 [place] [address] [place] [id number] [place] [address] 15390- 6801 Mar, [place] [address] [place] [id number] [place] [address] 18664- 3446 Mar, Diabetes type 2, uncontrolled E11.65 and Hypogonadism in male E29.1 [place] [address] [place] [id number] [place] [address] 38446- 6651 Mar, [place] [address] [place] [id number] [place] [address] 22049- 2214 Feb, Diabetes type 2, controlled E11.9 ; Myalgia M79.1 and BMI 45.0-49.9, adult Z68.42 [facility] [address] [place] [id number] [place] [address] 26126 -1851 Feb, Hematuria, unspecified type R31.9 ; Side pain R10.9 and Rash R21 [facility] [address] [place] [id number] [place] [address] 78688- 0775 January, [facility] [address] [place] [id number] [place] [address] 31182- 9006 January, [place] [address] [place] [id number] [place] [address] 92258- 2581 January, [facility] [address] [place] [id number] [place] [address] 11154 -4352 January, Seasonal allergies J30.2 and BMI 45.0-49.9, adult Z68.42 [facility] [address] [place] [id number] [place] [address] 59665- 3168 January, Chronic fatigue R53.82 ; Mild episode of recurrent major depressive disorder F33.0 and Polyneuropathy G62.9 [place] [address] [place] [id number] [place] [address] 15941- 3423 January, Chronic fatigue R53.82 ; BMI 45.0-49.9, adult Z68.42 and Anxiety F41.9 [place] [address] [place] [id number] [place] [address] 53769- 4901 January, Generalized anxiety disorder F41.1 [place] [address] 13771- 6209 Dec, 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 ; Generalized anxiety disorder F41.1 ; High risk medication use Z79.899 and BMI 45.0-49.9, adult Z68.42 [place] [address] [place] [id number] [place] [address] 70711- 0551 Dec, [facility] [address] [place] [id number] [place] [address] [id number] 17 Dec, 2017 Encounter for dental examination Z01.20 [place] [address] [place] [id number] [place] [address] 29213- 7535 11 Dec, 2017 Mild episode of recurrent major depressive disorder F33.0 ; Type 2 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 and intermediate 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.4 [place] [address] [place] [id number] [place] [address] 75739- 3411 Nov, [place] [address] [place] [id number] [place] [address] 16848- 1256 Nov, BMI 45.0-49.9, adult Z68.42 ; 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 and Generalized anxiety disorder F41.1 [facility] [address] [place] [address] 24810- 1116 Nov, Type 2 diabetes mellitus 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 E11.9 and long term acute care registered nurse 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.4 [facility] [address] [id number] Oct, Dental examination Z01.20 and Dental caries K02.9 [facility] [address] [place] [address] 38064- 4153 Oct, [facility] [address] [place] [id number] [place] [address] 91721- 7178 Oct, BMI 45.0-49.9, adult Z68.42 ; 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 and Generalized anxiety disorder F41.1 [facility] [address] [place] [address] 47308- 2340 Oct, [facility] [id number] [place] [address] 43225- 8381 Oct, [facility] [address] [place] [address] 68239- 6081 Oct, Hypertriglyceridemia E78.1 [facility] [address] [place] [address] 34776- 2997 Oct, Hypertriglyceridemia E78.1 [facility] [address] [place] [address] 47630- 1791 Sep, Controlled type 2 diabetes mellitus without complication, without long-term current use of insulin E11.9 [facility] [address] [place] [address] 51316- 0327 Sep, [facility] [address] [address]- 2909 Sep, Controlled type 2 diabetes mellitus without complication, without long-term current use of insulin E11.9 [facility] [address] [address]- 3827 Sep, [place] [address] [place] [id number] [place] [address] 65356- 0301 Sep, [place] [address] [place] [id number] [place] [address] 70529- 7775 Sep, BMI 45.0-49.9, adult Z68.42 ; Diabetic polyneuropathy associated with type 2 diabetes mellitus E11.42 and Chronic fatigue R53.82 [place] [address] [place] [id number] [place] [address] 85771- 4884 Sep, [place] [address] [place] [id number] [place] [address] 21798- 7286 Sep, Hypertriglyceridemia E78.1 [place] [address] [place] [id number] [place] [address] 09131- 2243 Aug, [place] [address] [place] [id number] [place] [address] 99435- 7116 Aug, Generalized anxiety disorder F41.1 [place] [address] [place] [id number] [place] [address] 27331- 0663 Aug, [place] [address] [place] [id number] [place] [address] 98687- 8412 Aug, Hypertriglyceridemia E78.1 [place] [address] [place] [id number] [place] [address] 86418- 3194 Jul, [place] [address] [place] [id number] [place] [address] 11296- 5048 Jul, [place] [address] [place] [id number] [place] [address] 56700- 3713 Jul, Generalized anxiety disorder F41.1 ; 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 ; BMI 45.0-49.9, adult Z68.42 and Patient's noncompliance with other medical treatment and regimen Z91.19 [place] [address] [place] [id number] [place] [address] 64329- 8010 Jul, Diabetes type 2, uncontrolled E11.65 ; Diabetic polyneuropathy associated with type 2 diabetes mellitus E11.42 ; Abdominal pain , right upper quadrant R10.11 and Low back pain radiating to left lower extremity M54.5 [place] [address] [place] [id number] [place] [address] 37080- 2471 Jul, Generalized anxiety disorder F41.1 [place] [address] [place] [id number] [place] [address] 22383- 5689 Jul, [place] [address] [place] [id number] [place] [address] 65144- 2405 Jul, Hypertriglyceridemia E78.1 [place] [address] [place] [id number] [place] [address] 48700- 9013 Jul, Controlled type 2 diabetes mellitus without complication, without long-term current use of insulin E11.9 [place] [address] [place] [id number] [place] [address] 02853- 3100 Jun, [place] [address] [place] [id number] [place] [address] 16109- 1871 Jun, Hypertriglyceridemia E78.1 [place] [address] [place] [id number] [place] [address] 22119- 9122 Jun, Controlled type 2 diabetes mellitus without complication, without long-term current use of insulin E11.9 [place] [address] [place] [id number] [place] [address] 20883- 2892 Jun, Generalized anxiety disorder F41.1 [place] [address] [place] [id number] [place] [address] 18430- 8082 Jun, Candidiasis B37.9 [place] [address] [place] [id number] [place] [address] 58580- 3037 May, [place] [address] [place] [id number] [place] [address] 91097- 1596 May, Controlled type 2 diabetes mellitus without complication, without long-term current use of insulin E11.9 [facility] [address] [place] [address] 39915- 1924 14 May, 2017 Hypertriglyceridemia E78.1 [facility] [address] [place] [id number] [place] [address] 20404- 8811 14 May, 2017 Hypertriglyceridemia E78.1 [facility] [address] [place] [id number] [place] [address] 48080- 1827 14 May, 2017 Hypertriglyceridemia E78.1 and Hypotestosteronemia E34.9 [facility] [address] [place] [id number] [place] [address] 88932- 3953 14 May, 2017 Generalized anxiety disorder F41.1 [facility] [address] [place] [id number] [place] [address] 76489- 7632 05 May, 2017 [facility] [address] [place] [id number] [place] [address] 35759 -3097 03 May, 2017 Abscess and cellulitis L03.90 [facility] [address] [place] [id number] [place] [address] [id number] Apr, [facility] [address] [place] [id number] [place] [address] 89324- 7657 Apr, [facility] [address] [place] [id number] [place] [address] 24630- 7863 Apr, Dermatofibroma of back D23.5 [facility] [address] [place] [id number] [place] [address] 42440 -9616 Apr, Muscle strain of left thigh, initial encounter S76.912A [facility] [address] [place] [id number] [place] [address] 31320- 2722 Apr, [facility] [address] [place] [id number] [place] [address] 49774- 5567 Apr, Generalized anxiety disorder F41.1 [facility] [address] [place] [address] 87308- 7987 14 Apr, 2017 Polyneuropathy G62.9 [facility] [address] [place] [address] 48831- 8867 Apr, GERD without esophagitis K21.9 [facility] [address] [place] [id number] [place] [address] 40583- 1252 Apr, Generalized anxiety disorder F41.1 ; Diastasis recti M62.08 and Controlled type 2 diabetes mellitus without complication, without long-term current use of insulin E11.9 [place] [address] [place] [id number] [place] [address] 47775- 6949 Apr, Generalized anxiety disorder F41.1 ; 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 and Controlled type 2 diabetes mellitus without complication, without long-term current use of insulin E11.9 [place] [address] [place] [id number] [place] [address] 91982- 2026 Mar, Generalized anxiety disorder F41.1 ; Diastasis recti M62.08 and Controlled type 2 diabetes mellitus without complication, without long-term current use of insulin E11.9 [place] [address] [place] [address] 39803- 3229 Mar, Controlled type 2 diabetes mellitus without complication, without long-term current use of insulin E11.9 [place] [address] [place] [address] 12310- 2937 Mar, Generalized anxiety disorder F41.1 [place] [address] [place] [id number] [place] [address] 30968- 9181 Mar, Generalized anxiety disorder F41.1 [place] [address] [place] [id number] [place] [address] 41887- 5104 Mar, Generalized anxiety disorder F41.1 [place] [address] [place] [id number] [place] [address] 82642- 1018 Mar, Generalized anxiety disorder F41.1 [place] [address] [place] [id number] [place] [address] 80027- 8127 Feb, Controlled type 2 diabetes mellitus without complication, without long-term current use of insulin E11.9 [facility] [address] [address]- 3710 Feb, Controlled type 2 diabetes mellitus without complication, without long-term current use of insulin E11.9 and Tinea cruris B35.6 [facility] [address] [place] [address] 13272- 3452 Feb, Diabetes type 2, controlled E11.9 [facility] [address] [place] [id number] [place] [address] [id number] Feb, Dental examination Z01.20 [facility] [address] [place] [id number] [place] [address] 97302- 8031 Feb, Dental examination Z01.20 [facility] [address] [place] [id number] [place] [address] 67883- 3202 Feb, Generalized anxiety disorder F41.1 [facility] [address] [place] [id number] [place] [address] 16658 -4331 Feb, Muscle spasm M62.838 and Diabetes type 2, controlled E11.9 [facility] [address] [place] [id number] [place] [address] 25088- 4687 Feb, Type 2 diabetes mellitus with hyperglycemia E11.65 [facility] [address] [place] [id number] [place] [address] [id number] Feb, Dental examination Z01.20 [facility] [address] [place] [id number] [place] [address] [id number] Feb, Encounter for dental examination Z01.20 [facility] [address] [place] [address] 55064- 3167 Feb, Diabetes type 2, controlled E11.9 [facility] [address] [place] [id number] [place] [address] 43330- 4819 Feb, Type 2 diabetes mellitus with hyperglycemia E11.65 [facility] [address] [address]- 9566 Feb, [facility] [address] [place] [id number] [place] [address] 16355- 8844 Feb, Controlled type 2 diabetes mellitus without complication, without long-term current use of insulin E11.9 [place] [address] [place] [id number] [place] [address] 21945- 7336 January, Candidiasis B37.9 [place] [address] 79377- 0432 January, Type 2 diabetes mellitus with hyperglycemia E11.65 ; Hypertension I10 and Anxiety F41.9 [place] [address] 13648- 4701 January, Type 2 diabetes mellitus with hyperglycemia E11.65 [place] [address] 67914- 6103 January, Controlled type 2 diabetes mellitus without complication, without long-term current use of insulin E11.9 [place] [address] [place] [id number] [place] [address] 42521- 7958 January, Generalized anxiety disorder F41.1 ; 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 ; Foot callus L84 and Controlled type 2 diabetes mellitus without complication, without long-term current use of insulin E11.9 [place] [address] [place] [id number] [place] [address] 96527- 1311 Dec, [place] [address] [place] [id number] [place] [address] 29624- 4594 Dec, [place] [address] [place] [id number] [place] [address] 08414- 0373 Dec, Foot callus L84 and Rash R21 [place] [address] 46667- 4236 Dec, Controlled type 2 diabetes mellitus without complication, without long-term current use of insulin E11.9 [place] [address] [place] [id number] [place] [address] 91358- 9115 Nov, [facility] [address] 01586 -1865 Nov, Sore throat J02.9 and Strep pharyngitis J02.0 [place] [address] [place] [id number] [place] [address] 97093- 7279 Nov, Generalized anxiety disorder F41.1 [place] [address] [place] [id number] [place] [address] 06756- 5357 Nov, [place] [address] 40086- 6482 Nov, [place] [address] [place] [id number] [place] [address] 37290- 6650 Nov, Type 2 diabetes mellitus with hyperglycemia E11.65 [place] [address] [place] [id number] [place] [address] 92092- 0414 Nov, Diabetes type 2, uncontrolled E11.65 and Localized edema R60.0 [place] [address] 01524- 1335 Nov, Controlled type 2 diabetes mellitus without complication, without long-term current use of insulin E11.9 [place] [address] [place] [id number] [place] [address] 49874- 6085 Oct, Generalized anxiety disorder F41.1 and 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 [place] [address] [place] [id number] [place] [address] 77062- 4684 Oct, [place] [address] [place] [id number] [place] [address] 98121- 2232 Oct, Type 2 diabetes mellitus with hyperglycemia E11.65 [place] [address] [place] [id number] [place] [address] 21058- 7315 Oct, Type 2 diabetes mellitus with hyperglycemia E11.65 and intermediate 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.4 [place] [address] [place] [id number] [place] [address] 56329- 1192 Oct, [place] [address] 73076- 1817 Oct, [facility] [id number] [place] [address] [id number] Oct, Encounter for dental examination Z01.20 [facility] [address] [place] [address] 32421- 2324 Sep, [place] [address] [place] [id number] [place] [address] 70813- 5925 Sep, Diabetes type 2, controlled E11.9 [facility] [place] [address] [place] [id number] [place] [address] 72103 -1478 Sep, Abdominal pain R10.9 and Diverticulitis of small intestine without perforation or abscess without bleeding K57.12 [place] [address] [place] [id number] [place] [address] 46516- 0241 Sep, [place] [address] [place] [id number] [place] [address] [phone] Sep, Diabetes type 2, controlled E11.9 [place] [address] [id number] [place] [address] [phone] Sep, Controlled type 2 diabetes mellitus without complication, without long-term current use of insulin E11.9 [place] [id number] [place] [address] [phone] Sep, Type 2 diabetes mellitus 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 E11.9 and intermediate 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.4 [facility] [place] [id number] [place] [phone] -[phone] Aug, Lower abdominal pain R10.30 ; GERD without esophagitis K21.9 and Candidiasis of skin B37.2 [place] [address] [id number] [place] [address] [phone] Aug, Controlled type 2 diabetes mellitus without complication, without long-term current use of insulin E11.9 and Diabetic polyneuropathy associated with type 2 diabetes mellitus E11.42 [facility] [place] [id number] [id number] [place] [phone] -[phone] Jul, Kelly infection of genital region B37.49 and Diabetes type 2, controlled E11.9 [facility] [id number] [place] [address] [phone] Jul, Controlled type 2 diabetes mellitus without complication, without long-term current use of insulin E11.9 ; 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 and Acute pharyngitis due to other specified organisms J02.8 [facility] [id number] [place] [address] 42001 -0970 Jul, Acute upper respiratory infection, unspecified J06.9 and Other viral agents as the cause of diseases classified elsewhere B97.89 [facility] [id number] [place] [address] 67670- 3035 Jun, Generalized anxiety disorder F41.1 [facility] [id number] [place] [address] 44840- 2668 14 Jun, 2016 [facility] [id number] [place] [address] 63468- 8213 Jun, Diabetes type 2, controlled E11.9 and Polyneuropathy G62.9 [facility] [id number] [place] [address] 50749- 3336 May, [facility] [id number] [place] [address] 58203- 8436 May, Generalized anxiety disorder F41.1 [facility] [id number] [place] [address] 04000- 4743 15 May, 2016 Polyneuropathy G62.9 [facility] [id number] [place] [address] 93595- 1706 May, [facility] [id number] [place] [address] 20566- 9323 Apr, Anxiety disorder, unspecified F41.9 [facility] [id number] [place] [address] 81415- 8771 Mar, Abdominal pain, unspecified abdominal location R10.9 ; Type 2 diabetes mellitus with hyperglycemia E11.65 ; long term acute care registered nurse 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.4 and Diabetic polyneuropathy associated with type 2 diabetes mellitus E11.42 [facility] [id number] [place] [address] 75985- 8841 Mar, Generalized anxiety disorder F41.1 [facility] [id number] [place] [address] 80238- 6641 Mar, Generalized abdominal pain R10.84 and Other male erectile dysfunction N52.8 [facility] [address] 54020 -4451 Mar, [facility] [address] 76685- 2687 Feb, Generalized anxiety disorder F41.1 [facility] [address] 43270- 8845 Feb, Abdominal cramping R10.9 ; Acute bilateral low back pain without sciatica M54.5 and Malaise R53.81 [facility] [id number] [place] [address] 61401 -5928 Feb, Candidiasis B37.9 and Costochondritis M94.0 [facility] [id number] [place] [address] 93809 -9772 Feb, Allergic rhinitis, unspecified allergic rhinitis type J30.9 [facility] [id number] [place] [address] 79939- 8109 Feb, Generalized anxiety disorder F41.1 [facility] [id number] [place] [address] 91400- 2734 Feb, [facility] [address] 03494- 7760 Feb, Major depressive disorder, recurrent, moderate F33.1 [facility] [id number] [place] [address] 79426- 6112 Feb, Generalized anxiety disorder F41.1 [facility] [id number] [place] [address] 26723- 0588 January, Unspecified infectious disease B99.9 [facility] [id number] [place] [address] [id number] January, Dental examination Z01.20 [facility] [id number] [place] [address] 41025- 7824 January, [facility] [address] 76912- 6638 January, Diabetes type 2, uncontrolled E11.65 [facility] [address] 58789 -5573 January, Wheezing R06.2 and History of pneumonia Z87.01 [facility] [id number] [place] [address] 72965- 0706 January, [facility] [id number] [place] [address] 45199- 6252 January, Depression, major, recurrent, moderate F33.1 [facility] [id number] [place] [address] 00640- 7034 January, [facility] [id number] [place] [address] 35385- 6832 January, Depression, major, recurrent, moderate F33.1 [facility] [id number] [place] [address] 29026- 4007 January, [facility] [id number] [place] [address] 73263- 4574 Dec, Depression, major, recurrent, moderate F33.1 [facility] [id number] [place] [address] 76412- 5490 Dec, Dental examination Z01.20 [facility] [id number] [place] [address] [phone] Dec, Dental examination Z01.20 [place] [address] [address]- 1485 08 Dec, 2015 Generalized anxiety disorder F41.1 [facility] [address] [address]- 1715 Dec, Generalized anxiety disorder F41.1 [facility] [address] [address]- 4762 30 Nov, 2015 [facility] [id number] [place] [address] 44848- 7400 Nov, [facility] [id number] [place] [address] 02043- 1947 Nov, Generalized anxiety disorder F41.1 [facility] [id number] [place] [address] [id number] Nov, Dental examination Z01.20 [facility] [id number] [place] [address] 76193- 9591 Nov, [facility] [id number] [place] [address] 83064- 3321 Nov, Generalized anxiety disorder F41.1 and 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 [facility] [id number] [place] [address] 88207- 7927 Nov, Depression, major, recurrent, moderate F33.1 [facility] [address] [address]- 4671 Nov, [facility] [address] [address]- 9882 Nov, Diabetes type 2, uncontrolled E11.65 and Hypertension I10 [facility] [address] [id number] 14 Nov, 2015 Dental examination Z01.20 [facility] [address], [place] [address]- 5854 03 Nov, 2015 [facility] [id number] [place] [address] 88706- 6156 Nov, Depression, major, recurrent, moderate F33.1 [facility] [id number] [place] [address] 37973 -0660 Nov, Penile abrasion S30.812A [facility] [id number] [place] [address] 60458- 6540 Oct, Generalized anxiety disorder F41.1 [facility] [address] 34880- 8673 Oct, Depression, major, recurrent, moderate F33.1 [facility] [id number] [place] [address] 99592- 0210 Oct, Diabetes type 2, controlled E11.9 and Malaise R53.81 [facility] [address] 35006- 4716 Oct, [facility] [address] 09998- 1170 Oct, [facility] [id number] [place] [address] 25847- 3448 Oct, [facility] [id number] [place] [address] 71512- 2140 Oct, Depression, major, recurrent, moderate F33.1 [facility] [id number] [place] [address] 23858- 3621 Oct, Generalized anxiety disorder F41.1 and 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 [facility] [id number] [place] [address] 50038- 5290 Oct, [facility] [id number] [place] [address] 29703- 8998 Oct, Major depressive disorder, recurrent, moderate F33.1 [facility] [id number] [place] [address] 57517- 3127 Oct, [facility] [id number] [place] [address] 73415- 3812 08 Oct, 2015 [facility] [id number] [place] [address] 03914- 1489 Oct, Generalized anxiety disorder F41.1 [facility] [id number] [place] [address] 26384- 4074 Oct, [facility] [address] 36154- 4627 Oct, Back muscle spasm M62.830 [facility] [id number] [place] [address] 43862- 4633 Oct, Major depressive disorder, recurrent, moderate F33.1 [facility] [id number] [place] [address] 66096 -7302 Sep, Back muscle spasm M62.830 ; Allergic rhinitis J30.9 and Person with feared health complaint in whom no diagnosis is made Z71.1 [facility] [id number] [place] [address] 51068- 2126 Sep, Generalized anxiety disorder F41.1 [facility] [id number] [place] [address] 45950 -2013 Sep, [facility] [id number] [place] [address] 88253- 2455 Sep, [facility] [id number] [place] [address] 89517- 2066 Sep, Mood disorder F39 ; Diabetes type 2, controlled E11.9 ; Morbid obesity due to excess calories E66.01 and Edema, unspecified type R60.9 [facility] [id number] [place] [address] 64246- 3624 Sep, Generalized anxiety disorder F41.1 [facility] [id number] [place] [address] 59708- 7570 Sep, [facility] [address], [place] [address]- 0087 07 Sep, 2015 Adjustment disorder with mixed anxiety and depressed mood F43.23 and Depression F32.9 [facility] [id number] [place] [address] 07256- 7084 06 Sep, 2015 Generalized anxiety disorder F41.1 [facility] [id number] [place] [address] 25716- 3157 05 Sep, 2015 Generalized anxiety disorder 300.02 and Autism spectrum disorder F84.[address] [facility] [address] [id number] [id number] Aug, Encounter for dental examination Z01.20 [facility] [id number] [place] [address] 70171- 0079 16 Aug, 2015 [facility] [id number] [place] [address] 23196 -2030 17 Jul, 2015 Candidiasis B37.9 [facility] [id number] [place] [address] 21370- 1233 13 Jul, 2015 [facility] [address] [place] [address] [id number] [id number] Jul, Encounter for dental examination Z01.20 [facility] [id number] [place] [address] 79332- 1669 02 Jul, 2015 [facility] [id number] [place] [address] 42744- 6276 Jun, [facility] [id number] [place] [address] 09814- 7446 30 May, 2015 Diabetes type 2, controlled 250.00 and Neuropathy 355.9 [facility] [id number] [place] [address] 92030- 4006 16 May, 2015 [facility] [id number] [place] [address] 91108- 7889 Apr, Generalized anxiety disorder 300.02 and Autism spectrum disorder 299.00 [facility] [id number] [place] [address] 14754- 5458 Apr, Abrasion, foot 917.0 ; Chest pain 786.50 and Back pain 724.5 [facility] [id number] [place] [address] 85118- 7076 Apr, Generalized anxiety disorder 300.02 [facility] [address] 53144- 2810 Feb, Anxiety state, unspecified 300.00 [facility] [id number] [place] [address] 48976- 2499 Feb, Diabetes mellitus without mention of complication, type II or unspecified type, not stated as uncontrolled 250.00 ; Generalized anxiety disorder 300.02 ; Morbid obesity 278.01 ; Benign essential hypertension 401.1 ; Chronic pain 338.29 ; Screen for STD (sexually transmitted disease) V74.5 ; Dysuria 788.1 and Kelly infection of genital region 112.2 [facility] [id number] [place] [address] 57685- 1634 Feb, [facility] [id number] [place] [address] 07798- 8075 January, Generalized anxiety disorder 300.02 and Autism spectrum disorder 299.00 [facility] [id number] [place] [address] 44586- 8190 Dec, [facility] [id number] [place] [address] 85147- 3797 Dec, [facility] [id number] [place] [address] 89197- 0592 Dec, [facility] [id number] [place] [address] 05378- 1696 Nov, [facility] [id number] [place] [address] [id number] Nov, [facility] [id number] [place] [address] 99484- 5306 Nov, [facility] [place] [facility] [address] [id number] [place] [address]- 9377 Nov, [facility] [place] [facility] [address] [id number] [place] [id number] Nov, [facility] [place] [facility] [address] [id number] [place] [address]- 9090 Oct, [facility] [place] [facility] [address] [id number] [place] [address]- 3929 Jul, [facility] [place] [facility] [address] [id number] [place] [address]- 2803 Jul, [facility] [place] [facility] [address] [id number] [place] [address]- 2813 Jul, [facility] [place] [facility] [address] [id number] [place] [address]- 7872 Jul, [facility] [place] [facility] [address] [id number] [place] [address]- 2022 Jul, [facility] [place] [facility] [address] [id number] [place] [address]- 0238 Jul, [facility] [place] [facility] [address] [id number] [place] [address]- 1733 Jul, [facility] [place] [facility] [address] [id number] [place] [address]- 7894 Jul, [facility] [place] [facility] [address] [id number] [place] [address]- 6083 Jul, [facility] [place] [facility] [address] [id number] [place] [address]- 8562 Jul, [facility] [place] [facility] [address] [id number] [place] [address]- 2323 Jun, [facility] [place] [facility] [address] [id number] [place] [address]- 0171 Jun, [facility] [place] [facility] [address] [id number] [place] [address]- 3696 Jun, [facility] [place] [facility] [address] [id number] [place] [address]- 8480 Jun, [facility] [place] [facility] [address] [id number] [place] [address]- 1714 16 Jun, 2014 [facility] [place] [facility] [address] [id number] [place] [address]- 5767 Jun, [facility] [place] [facility] [address] [id number] [place] [address]- 4348 Jun, [facility] [place] [facility] [address] [id number] [place] [address]- 8957 30 May, 2014 [facility] [place] [facility] [address] [id number] [place] [address]- 2946 30 May, 2014 [facility] [place] [facility] [address] [id number] [place] [address]- 5005 May, [facility] [place] [facility] [address] [id number] [place] [address]- 3911 May, [facility] [place] [facility] [address] [id number] [place] [address]- 0555 May, [facility] [place] [facility] [address] [id number] [place] [address]- 0585 May, [facility] [place] [facility] [address] [id number] [place] [address]- 0169 May, [facility] [place] [facility] [address] [id number] [place] [address]- 0814 May, [facility] [place] [facility] [address] [id number] [place] [address]- 8799 Apr, [facility] [place] [facility] [address] [id number] [place] [address]- 1943 Apr, [facility] [place] [facility] [address] [id number] [place] [address]- 3936 Apr, [facility] [place] [facility] [address] [id number] [place] [address]- 1705 Apr, [facility] [place] [facility] [address] [id number] [place] [address]- 8099 Apr, [facility] [place] [facility] [address] [id number] [place] [address]- 0612 Apr, [facility] [place] [facility] [address] [id number] [place] [address]- 7566 Apr, [facility] [place] [facility] [address] [id number] [place] [address]- 3924 Apr, [facility] [place] [facility] [address] [id number] [place] [address]- 6382 Apr, [facility] [place] [facility] [address] [id number] [place] [address]- 1463 Mar, [facility] [place] [facility] [address] [id number] [place] [address]- 3477 Mar, [facility] [place] [facility] [address] [id number] [place] [address]- 8199 Mar, [facility] [place] [facility] [address] [id number] [place] [address]- 4454 Mar, [facility] [place] [facility] [address] [id number] [place] [address]- 5714 Mar, [facility] [place] [facility] [address] [id number] [place] [address]- 0732 Mar, [facility] [place] [facility] [address] [id number] [place] [address]- 5739 Feb, [facility] [place] [facility] [address] [id number] [place] [address]- 7623 Feb, [facility] [place] [facility] [address] [id number] [place] [address]- 3359 Feb, [facility] [place] [facility] [address] [id number] [place] [address]- 6635 January, [facility] [address] [id number] [place] [address]- 1541 January, [facility] [place] [facility] [address] [id number] [place] [address]- 1246 January, [facility] [place] [facility] [address] [id number] [place] [address]- 1092 January, [facility] [place] [facility] [address] [id number] [place] [address]- 6665 January, [facility] [place] [facility] [address] [id number] [place] [address]- 4174 January, [facility] [place] [facility] [address] [id number] [place] [address]- 6658 Dec, [facility] [place] [facility] [address] [id number] [place] [address]- 7583 Dec, [facility] [place] [facility] [address] [id number] [place] [address]- 6609 Dec, [facility] [place] [facility] [address] [id number] [place] [address]- 3242 Dec, [facility] [place] [facility] [address] [id number] [place] [address]- 5954 Nov, [facility] [place] [facility] [address] [id number] [place] [address]- 9158 Nov, [facility] [place] [facility] [address] [id number] [place] [address]- 1302 Oct, [facility] [place] [facility] [address] [id number] [place] [address]- 5619 Oct, [facility] [place] [facility] [address] [id number] [place] 3997 Sep, [facility] [place] [facility] [address] [id number] [place] 3869 Sep, [facility] [place] [facility] [address] [id number] [place] [address]- 8175 Aug, [facility] [address] [id number] [place] [address]- 5538 Aug, [facility] [place] [facility] [address] [id number] [place] [address]- 1681 Aug, [facility] [place] [facility] [address] [id number] [place] [address]- 1085 Jul, [facility] [place] [facility] [address] [id number] [place] [address]- 0903 Jul, [facility] [place] [facility] [address] [id number] [place] [address]- 0830 Jul, [facility] [place] [facility] [address] [id number] [place] [address]- 1337 Jul, [facility] [place] [facility] [address] [id number] [place] [address]- 6900 Jul, [facility] [place] [facility] [address] [id number] [place] [address]- 5431 May, [facility] [place] [facility] [address] [id number] [place] [address] May, [facility] [place] [facility] [address] [id number] [place] [address] Apr, [facility] [place] [facility] [address] [id number] [place] [address] Apr, [facility] [place] [facility] [address] [id number] [place] [address] Mar, [facility] [place] [facility] [address] [id number] [place] [address] Mar, [facility] [place] [facility] [address] [id number] [place] [address] Mar, [facility] [place] [facility] [address] [id number] [place] [address] Mar, [facility] [place] [facility] [address] [id number] [place] [address] Feb, [facility] [address] [id number] [place] [address] Feb, [facility] [place] [facility] [address] [id number] [place] [address] Feb, [facility] [address] [id number] [place] [address] Feb, [facility] [address] [id number] [place] [address] Feb, [facility] [address] [id number] [place] [address] January, [facility] [address] [id number] [place] [address] January, [facility] [address] [id number] [place] [address] January, [facility] [address] [id number] [place] [address] January, [facility] [address] [id number] [place] [address] Dec, [facility] [place] [facility] [address] [id number] [place] [address] Dec, [facility] [place] [facility] [address] [id number] [place] [address] 18 Dec, 2012 [facility] [place] [facility] [address] [id number] [place] [address] 10 Dec, 2012 [facility] [place] [facility] [address] [id number] [place] [address] Nov, [facility] [place] [facility] [address] [id number] [place] [address] 05 Nov, 2012 [facility] [place] [facility] [address] [id number] [place] [address] Oct, [facility] [address] [id number] [place] [address] Aug, [facility] [place] [facility] [address] [id number] [place] [address] Aug, [facility] [place] [facility] [address] [id number] [place] [address] Dec, [facility] [place] [facility] [address] [id number] [place] [address] Dec, [facility] [place] [facility] [address] [id number] [place] [address]- [address] Dec, [facility] [place] [facility] [address] [id number] [place] [address] Nov, [facility] [place] [facility] [address] [id number] [place] [address] Nov, [facility] [place] [facility] [address] [id number] [place] [address] Oct, [facility] [place] [facility] [address] [id number] [place] [address] Oct, [facility] [place] [facility] [address] [id number] [place] [address] Oct, [facility] [place] [facility] [address] [id number] [place] [address] Sep, [facility] [place] [facility] [address] [id number] [place] [address] Sep, [facility] [place] [facility] [address] [id number] [place] [address] Sep, [facility] [place] [facility] [address] [id number] [place] [address]- [address] Sep, [facility] [place] [facility] [address] [id number] [place] [address] Sep, [facility] [place] [facility] [address] [id number] [place] [address] 11 Sep, 2011 [facility] [address] [id number] [place] [address] 10 Sep, 2011 [facility] [place] [facility] [address] [id number] [place] [address] 09 Sep, 2011 [facility] [address] [id number] [place] [address] 22 Jul, 2011 [facility] [address] [address] [id number] [place] [address] 15 Jul, 2011 [facility] [address] [id number] [place] [address] 15 Jul, 2011 [facility] [address] [id number] [place] [address] 14 Nov, 2010 [facility] [address] [id number] [place] [address] 17 Aug, 2010 [facility] [address] [id number] [place] [address] 17 Aug, 2010 [facility] [address] [id number] [place] [address] 16 Aug, 2010 [facility] [address] [id number] [place] [address] 15 Aug, [address] [facility] [place] [facility] [address] [id number] [place] [address] 09 Aug, [address] [facility] [place] [facility] [address] [id number] [place] [address] Jul, [facility] [place] [facility] [address] [id number] [place] [address] Jun, [facility] [place] [facility] [address] [id number] [place] [address] Jun, [facility] [place] [facility] [address] [id number] [place] [address] Sep, [facility] [id number] [address] Aug, [facility] [id number] [place] [address] Aug, [facility] [id number] [place] [address] Aug, [facility] [id number], [place] [address] Jun, [facility] [id number] [place] [address] Jun, [facility] [id number] [place] [address] 2011 May, [facility] [id number] [place] [address] Apr, [facility] [id number], [place] [address] Mar, [facility] [id number], [place] [address] January, [facility] [id number], [place] [address] Oct, IMMUNIZATIONS No Known Immunizations SOCIAL HISTORY Never Assessed REASON FOR VISIT BS f/u PLAN OF CARE VITAL SIGNS MEDICATIONS Unknown Medications RESULTS No Results PROCEDURES No Known procedures INSTRUCTIONS MEDICATIONS ADMINISTERED No Known Medications MEDICAL (GENERAL) HISTORY Type Description Date Medical History Throat pain Medical History Unspecified follow-up examination Medical History irritable bowel syndrome Medical History obesity Medical History type II diabetes Medical History headache Medical History depression Medical History hypogonadism Medical History pneumonia Medical History Diabetic neropothy Surgical History cholecystectomy 2014 Surgical History testicular surgery at age 1 Surgical History colonoscopy 07/05 [address] [facility] for diabetes 09/2011 Hospitalization History [facility] diabetic issues 09/2015 Hospitalization History [facility] Pneumonia 01/2016 Hospitalization History celluit[facility] of the left upper thigh-[facility] 04/2017 Hospitalization History [facility]-inpatient psych 4 day stay 2013 Hospitalization History [place]- Shaking, unsure of blood sugar level 11/20/2017
[2018-07-05] MEDS ORDERED: LACTATED RINGERS 1,000 ML IV ONE (10:34)
--- OUTSIDE RECORDS SUMMARY | 2018-07-05 10:34 | XMS REPORT ---
Author Author KRISSY HALL [facility] Address [address] [place] [address] Care Team Providers Care Chaperone Name Role Phone KRISSY HALL Unavailable PROBLEMS Type Condition ICD9-CM Code LER56-AN Code Onset Dates Condition Status SNOMED Code Problem Diabetes type 2, controlled E11.9 Active 86738825 Problem Other male erectile dysfunction N52.8 Active 452542033 Problem Obesity, unspecified E66.9 Active 928354101 Problem Gastro-esophageal reflux disease with esophagitis K21.0 Active 495630159 Problem Insomnia, unspecified G47.00 Active 331341858 Problem 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 Active 22152749 Problem Generalized anxiety disorder F41.1 Active 43478776 Problem Chronic fatigue R53.82 Active 77683598 Problem Diabetes type 2, uncontrolled E11.65 Active 639936272 Problem BMI 45.0-49.9, adult Z68.42 Active 088508095 Problem Hypertension I10 Active 61208864 Problem Type 2 diabetes mellitus 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 E11.9 Active 626766636 Problem Mild episode of recurrent major depressive disorder F33.0 Active 086175578 Problem Type 2 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 Active 85118708 Problem Neuropathy G62.9 Active 457669936 Problem Uncontrolled type 2 diabetes mellitus with hyperglycemia E11.65 Active 422127250 Problem 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 Active 863280595 Problem Polyneuropathy G62.9 Active 86134218 Problem Type 2 diabetes mellitus with hyperglycemia E11.65 Active 563075582 Problem Hypogonadism in male E29.1 Active 89641708 Problem Seasonal allergies J30.2 Active 913780390 Problem Morbid obesity due to excess calories E66.01 Active 314677453 Problem Other chronic pain G89.29 Active 48009336 Problem GERD without esophagitis K21.9 Active 364893681 Problem Type 2 diabetes mellitus with hyperglycemia E11.65 Active 255544335 Problem Controlled type 2 diabetes mellitus without complication, without long -term current use of insulin E11.9 Active 580903892 Problem Diabetic polyneuropathy associated with type 2 diabetes mellitus E11.42 Active 74056392 Problem Anxiety F41.9 Active 43905492 Problem Hypertriglyceridemia E78.1 Active 253679074 Problem 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 Active 390723792 Problem Diverticulitis of small intestine without perforation or abscess without bleeding K57.12 Active 48650422 ALLERGIES No Information ENCOUNTERS Encounter Location Date Diagnosis [place] [address] [address] Aug, [place] [address] 00[address]- 4[address] Jul, [place] [address] 436[address]- 47[address] Jun, Neuropathy G62.9 ; Uncontrolled type 2 diabetes mellitus with hyperglycemia E11.65 and Colitis K52.9 [place] [address] [address]- 3764 Jun, [place] [address] 95358- 4850 Jun, [place] [address] 13124- 8119 Jun, [place] [address] [place] [id number] [place] [address] 41446- 4317 May, Generalized abdominal pain R10.84 ; Hypogonadism in male E29.1 ; Hospital discharge follow-up Z09 and BMI 45.0-49.9, adult Z68.42 [place] [address] [place] [id number] [place] [address] 04286- 5741 May, 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 ; Generalized anxiety disorder F41.1 and BMI 45.0-49.9, adult Z68.42 [place] [address] [place] [id number] [place] [address] 47197- 0432 May, Uncontrolled type 2 diabetes mellitus with hyperglycemia E11.65 [place] [address] [place] [id number] [place] [address] 12075- 3884 May, Uncontrolled type 2 diabetes mellitus with hyperglycemia E11.65 ; BMI 45.0-49.9, adult Z68.42 and Colitis K52.9 [facility] [address] [place] [id number] [place] [address] 42821- 6945 May, [facility] [address] 41427- 1253 May, [facility] [address] [address] Apr, Colitis K52.9 ; Abdominal discomfort R10.9 and Anxiety F41.9 [facility] [address] 0[address]- 1249 Apr, [facility] [address] 80736- 7120 Apr, Colitis K52.9 and BMI 45.0-49.9, adult Z68.42 [facility] [address] 86753- 9842 Apr, Diabetes type 2, uncontrolled E11.65 [facility] [address] 07200- 7808 Apr, 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 ; Generalized anxiety disorder F41.1 and BMI 45.0-49.9, adult Z68.42 [facility] [address] [place] [id number] [place] [address] 80603- 4624 Apr, [facility] [address] 38197- 9687 Apr, BMI 45.0-49.9, adult Z68.42 [facility] [address] 59780- 0236 Apr, Candidiasis B37.9 ; Pain in right shoulder M25.511 ; Pain in left shoulder M25.512 ; Other chronic pain G89.29 and Morbid obesity due to excess calories E66.01 [facility] [address] [place] [id number] [place] [address] 47323- 9574 Apr, Hypogonadism in male E29.1 [facility] [address] [place] [id number] [place] [address] 68354 -3787 Mar, Yeast dermatitis B37.2 and Sensation of foreign body in throat R09.89 [place] [address] 25362- 3446 Mar, [facility] [address] [place] [id number] [place] [address] 03581- 3982 Mar, Hypogonadism in male E29.1 [place] [address] 21292- 4593 Mar, Hypogonadism in male E29.1 [place] [address] [place] [id number] [place] [address] 53533- 4329 Mar, [place] [address] [place] [id number] [place] [address] 64173- 8679 Mar, Diabetes type 2, uncontrolled E11.65 and Hypogonadism in male E29.1 [place] [address] [place] [id number] [place] [address] 98801- 5979 Mar, [place] [address] [place] [id number] [place] [address] 06009- 6321 Feb, Diabetes type 2, controlled E11.9 ; Myalgia M79.1 and BMI 45.0-49.9, adult Z68.42 [facility] [address] [place] [id number] [place] [address] 95993 -3055 Feb, Hematuria, unspecified type R31.9 ; Side pain R10.9 and Rash R21 [facility] [address] [place] [id number] [place] [address] 25102- 9204 January, [facility] [address] [place] [id number] [place] [address] 46258- 2833 January, [facility] [address] [place] [id number] [place] [address] 66649- 8865 January, [facility] [address] [place] [id number] [place] [address] 90131 -9642 January, Seasonal allergies J30.2 and BMI 45.0-49.9, adult Z68.42 [facility] [address] [place] [id number] [place] [address] 48334- 7711 January, Chronic fatigue R53.82 ; Mild episode of recurrent major depressive disorder F33.0 and Polyneuropathy G62.9 [place] [address] [place] [id number] [place] [address] 03676- 3209 January, Chronic fatigue R53.82 ; BMI 45.0-49.9, adult Z68.42 and Anxiety F41.9 [place] [address] [place] [id number] [place] [address] 57434- 6662 January, Generalized anxiety disorder F41.1 [facility] [address] 40834- 1056 Dec, 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 ; Generalized anxiety disorder F41.1 ; High risk medication use Z79.899 and BMI 45.0-49.9, adult Z68.42 [facility] [address] [place] [id number] [place] [address] 11265- 8563 Dec, [facility] [address] [place] [id number] [place] [address] [phone] Dec, 2017 Encounter for dental examination Z01.20 [place] [address] [place] [id number] [place] [address] 72970- 1931 11 Dec, 2017 Mild episode of recurrent major depressive disorder F33.0 ; Type 2 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 and prison 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.4 [facility] [address] [place] [id number] [place] [address] 87719- 6178 27 Nov, 2017 [place] [address] [place] [id number] [place] [address] 21660- 8626 Nov, BMI 45.0-49.9, adult Z68.42 ; 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 and Generalized anxiety disorder F41.1 [facility] [address] [place] [address] 28349- 8170 Nov, Type 2 diabetes mellitus 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 E11.9 and 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 [facility] [address] [place] [address] [phone] Oct, Dental examination Z01.20 and Dental caries K02.9 [facility] [address] [place] [id number] [place] [address] 78068- 5908 Oct, [facility] [address] [place] [id number] [place] [address] 59787- 7114 Oct, BMI 45.0-49.9, adult Z68.42 ; 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 and Generalized anxiety disorder F41.1 [facility] [address] [place] [id number] [place] [address] 96984- 4622 Oct, [facility] [address] [place] [id number] [place] [address] 61146- 1921 Oct, [facility] [address] [place] [id number] [place] [address] 58197- 8953 Oct, Hypertriglyceridemia E78.1 [facility] [address] [place] [id number] [place] [address] 70574- 9447 Oct, Hypertriglyceridemia E78.1 [facility] [address] [place] [id number] [place] [address] 62116- 8382 Sep, Controlled type 2 diabetes mellitus without complication, without long-term current use of insulin E11.9 [facility] [address] [place] [address] 92144- 8549 Sep, [facility] [address] [place] [address] 00240- 8281 Sep, Controlled type 2 diabetes mellitus without complication, without long-term current use of insulin E11.9 [facility] [address] [address]- 9347 Sep, [place] [address] [place] [id number] [place] [address] 38874- 0563 Sep, [place] [address] [place] [id number] [place] [address] 85161- 6373 Sep, BMI 45.0-49.9, adult Z68.42 ; Diabetic polyneuropathy associated with type 2 diabetes mellitus E11.42 and Chronic fatigue R53.82 [place] [address] [place] [id number] [place] [address] 32411- 6722 Sep, [place] [address] [place] [id number] [place] [address] 77406- 8826 Sep, Hypertriglyceridemia E78.1 [place] [address] [place] [id number] [place] [address] 26303- 5620 Aug, [place] [address] [place] [id number] [place] [address] 51803- 6441 Aug, Generalized anxiety disorder F41.1 [place] [address] [place] [id number] [place] [address] 96926- 7515 Aug, [place] [address] [place] [id number] [place] [address] 06534- 7748 Aug, Hypertriglyceridemia E78.1 [place] [address] [place] [id number] [place] [address] 65115- 7118 Jul, [place] [address] [place] [address] 65310- 8165 Jul, [place] [address] [place] [id number] [place] [address] 30322- 5844 Jul, Generalized anxiety disorder F41.1 ; 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 ; BMI 45.0-49.9, adult Z68.42 and Patient's noncompliance with other medical treatment and regimen Z91.19 [place] [address] [place] [id number] [address] Jul, Diabetes type 2, uncontrolled E11.65 ; Diabetic polyneuropathy associated with type 2 diabetes mellitus E11.42 ; Abdominal pain , right upper quadrant R10.11 and Low back pain radiating to left lower extremity M54.5 [place] [address] [place] [id number] [place] [address] 76916- 4872 Jul, Generalized anxiety disorder F41.1 [place] [address] [place] [id number] [place] [address] 28661- 7202 Jul, [place] [address] [place] [id number] [place] [address] 12258- 2090 Jul, Hypertriglyceridemia E78.1 [place] [address] [place] [id number] [place] [address] 97694- 9698 Jul, Controlled type 2 diabetes mellitus without complication, without long-term current use of insulin E11.9 [place] [address] [place] [id number] [place] [address] 54352- 9895 Jun, [place] [address] [place] [id number] [place] [address] 55039- 0589 Jun, Hypertriglyceridemia E78.1 [place] [address] [place] [id number] [place] [address] 48987- 3303 Jun, Controlled type 2 diabetes mellitus without complication, without long-term current use of insulin E11.9 [place] [address] [place] [address] 52857- 0740 Jun, Generalized anxiety disorder F41.1 [place] [address] [place] [id number] [place] [address] 40769- 6466 Jun, Candidiasis B37.9 [place] [address] [place] [id number] [place] [address] 11158- 5447 May, [place] [address] [place] [id number] [place] [address] 58008- 3155 May, Controlled type 2 diabetes mellitus without complication, without long-term current use of insulin E11.9 [facility] [address] [place] [address] 44035- 9551 14 May, 2017 Hypertriglyceridemia E78.1 [facility] [address] [place] [id number] [place] [address] 41279- 2666 14 May, 2017 Hypertriglyceridemia E78.1 [facility] [address] [place] [id number] [place] [address] 16877- 3505 14 May, 2017 Hypertriglyceridemia E78.1 and Hypotestosteronemia E34.9 [facility] [address] [place] [id number] [place] [address] 08476- 3752 14 May, 2017 Generalized anxiety disorder F41.1 [facility] [address] [place] [id number] [place] [address] 63591- 5468 05 May, 2017 [facility] [address] [place] [id number] [place] [address] 12056 -9141 May, Abscess and cellulitis L03.90 [facility] [address] [place] [id number] [place] [address] [phone] Apr, [facility] [address] [place] [id number] [place] [address] 53769- 7216 Apr, [facility] [address] [place] [id number] [place] [address] 65295- 4257 Apr, Dermatofibroma of back D23.5 [facility] WALK IN [facility] [address] [place] [id number] [place] [address] 94635 -4197 Apr, Muscle strain of left thigh, initial encounter S76.912A [facility] [address] [place] [id number] [place] [address] 77081- 7332 Apr, [facility] [address] [place] [id number] [place] [address] 02018- 1766 Apr, Generalized anxiety disorder F41.1 [facility] [address] [place] [id number] [place] [address] 40645- 7593 Apr, Polyneuropathy G62.9 [facility] [address] [address]- 1029 Apr, GERD without esophagitis K21.9 [facility] [address] [place] [id number] [place] [address] 53982- 9863 Apr, Generalized anxiety disorder F41.1 ; Diastasis recti M62.08 and Controlled type 2 diabetes mellitus without complication, without long-term current use of insulin E11.9 [place] [address] [place] [id number] [place] [address] 69965- 4008 Apr, Generalized anxiety disorder F41.1 ; 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 and Controlled type 2 diabetes mellitus without complication, without long-term current use of insulin E11.9 [place] [address] [place] [address] 40670- 1134 Mar, Generalized anxiety disorder F41.1 ; Diastasis recti M62.08 and Controlled type 2 diabetes mellitus without complication, without long-term current use of insulin E11.9 [place] [address] [place] [address] 17105- 2191 Mar, Controlled type 2 diabetes mellitus without complication, without long-term current use of insulin E11.9 [place] [address] [place] [address] 23699- 3475 Mar, Generalized anxiety disorder F41.1 [place] [address] [place] [address] 54076- 8310 Mar, Generalized anxiety disorder F41.1 [place] [address] [place] [address] 63752- 2933 Mar, Generalized anxiety disorder F41.1 [place] [address] [place] [id number] [place] [address] 26001- 6684 Mar, Generalized anxiety disorder F41.1 [place] [address] [place] [address] 22185- 4613 Feb, Controlled type 2 diabetes mellitus without complication, without long-term current use of insulin E11.9 [facility] [address] [place] [address] 71224- 6966 Feb, Controlled type 2 diabetes mellitus without complication, without long-term current use of insulin E11.9 and Tinea cruris B35.6 [facility] [address] [place] [address] 53918- 1493 Feb, Diabetes type 2, controlled E11.9 [facility] [address] [place] [id number] [place] [address] [phone] Feb, Dental examination Z01.20 [facility] [address] [place] [id number] [place] [address] 24582- 0530 Feb, Dental examination Z01.20 [facility] [address] [place] [id number] [place] [address] 11056- 9908 Feb, Generalized anxiety disorder F41.1 [facility]ALK IN [facility] [address] [place] [id number] [place] [address] 91851 -6450 Feb, Muscle spasm M62.838 and Diabetes type 2, controlled E11.9 [facility] [address] [place] [address] 59716- 1441 Feb, Type 2 diabetes mellitus with hyperglycemia E11.65 [facility] [address] [place] [address] [phone] Feb, Dental examination Z01.20 [facility] [address] [place] [id number] [place] [address] [phone] Feb, Encounter for dental examination Z01.20 [facility] [address] [place] [address] 27159- 9595 Feb, Diabetes type 2, controlled E11.9 [facility] [address] [place] [id number] [place] [address] 50380- 5836 Feb, Type 2 diabetes mellitus with hyperglycemia E11.65 [facility] [address] [place] [id number] [place] [address] 46667- 0125 Feb, [facility] [address] [place] [id number] [place] [address] 69498- 4537 Feb, Controlled type 2 diabetes mellitus without complication, without long-term current use of insulin E11.9 [place] [address] [place] [id number] [place] [address] 69204- 6415 January, Candidiasis B37.9 [place] [address] [place] [id number] [place] [address] 83821- 1815 January, Type 2 diabetes mellitus with hyperglycemia E11.65 ; Hypertension I10 and Anxiety F41.9 [place] [address] [place] [id number] [place] [address] 95132- 5553 January, Type 2 diabetes mellitus with hyperglycemia E11.65 [place] [address] [place] [id number] [place] [address] 80113- 2757 January, Controlled type 2 diabetes mellitus without complication, without long-term current use of insulin E11.9 [place] [address] [place] [id number] [place] [address] 25294- 2158 January, Generalized anxiety disorder F41.1 ; 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 ; Foot callus L84 and Controlled type 2 diabetes mellitus without complication, without long-term current use of insulin E11.9 [place] [address] [place] [id number] [place] [address] 45355- 2466 Dec, [place] [address] [place] [id number] [place] [address] 92736- 2736 Dec, [place] [address] [place] [id number] [place] [address] 45522- 3249 Dec, Foot callus L84 and Rash R21 [place] [address] 09699- 4163 Dec, Controlled type 2 diabetes mellitus without complication, without long-term current use of insulin E11.9 [place] [address] [place] [id number] [place] [address] 90250- 6894 Nov, [facility] [address] 46077 -0595 Nov, Sore throat J02.9 and Strep pharyngitis J02.0 [place] [address] [place] [id number] [place] [address] 52800- 9919 Nov, Generalized anxiety disorder F41.1 [place] [address] [place] [id number] [place] [address] 18132- 9079 Nov, [place] [address] 51007- 0601 Nov, [place] [address] [place] [id number] [place] [address] 12182- 0215 Nov, Type 2 diabetes mellitus with hyperglycemia E11.65 [place] [address] [place] [id number] [place] [address] 28959- 9312 Nov, Diabetes type 2, uncontrolled E11.65 and Localized edema R60.0 [place] [address] [place] [id number] [place] [address] 74214- 5314 Nov, Controlled type 2 diabetes mellitus without complication, without long-term current use of insulin E11.9 [place] [address] [place] [id number] [place] [address] 26256- 3383 Oct, Generalized anxiety disorder F41.1 and 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 [place] [address] [place] [id number] [place] [address] 82359- 1019 Oct, [place] [address] [place] [id number] [place] [address] 51601- 9540 Oct, Type 2 diabetes mellitus with hyperglycemia E11.65 [place] [address] [place] [id number] [place] [address] 75274- 8831 Oct, Type 2 diabetes mellitus with hyperglycemia E11.65 and prison 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.4 [place] [address] [place] [id number] [place] [address] [phone] Oct, [place] [address] [place] [id number] [place] [address] [phone] Oct, [facility] [id number] [place] [address] [phone] Oct, Encounter for dental examination Z01.20 [facility] [address] [place] [id number] [place] [address] [phone] Sep, [place] [address] [place] [id number] [place] [address] [phone] Sep, Diabetes type 2, controlled E11.9 [facility] [place] [address] [place] [id number] [place] [address] [phone] Sep, Abdominal pain R10.9 and Diverticulitis of small intestine without perforation or abscess without bleeding K57.12 [place] [address] [place] [id number] [place] [address] [phone] Sep, [place] [address] [place] [id number] [place] [address] [phone] Sep, Diabetes type 2, controlled E11.9 [place] [address] [place] [id number] [place] [address] [phone] Sep, Controlled type 2 diabetes mellitus without complication, without long-term current use of insulin E11.9 [place] [id number] [place] [address] [phone] Sep, Type 2 diabetes mellitus 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 E11.9 and prison 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.4 [facility] [place] [address] [place] [address] 11264 -2227 Aug, Lower abdominal pain R10.30 ; GERD without esophagitis K21.9 and Candidiasis of skin B37.2 [place] [id number] [place] [address] 38940- 7367 Aug, Controlled type 2 diabetes mellitus without complication, without long-term current use of insulin E11.9 and Diabetic polyneuropathy associated with type 2 diabetes mellitus E11.42 [facility] [place] [address] [id number] [place] [address] 43036 -3532 Jul, Kelly infection of genital region B37.49 and Diabetes type 2, controlled E11.9 [facility] [address] [place] [address] 40685- 8617 Jul, Controlled type 2 diabetes mellitus without complication, without long-term current use of insulin E11.9 ; 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 and Acute pharyngitis due to other specified organisms J02.8 [facility] [address] [place] [address] 89179 -4560 Jul, Acute upper respiratory infection, unspecified J06.9 and Other viral agents as the cause of diseases classified elsewhere B97.89 [place] [id number] [place] [address] 10851- 5223 Jun, Generalized anxiety disorder F41.1 [place] [id number] [place] [address] 29463- 6182 Jun, [place] [id number] [place] [address] 31275- 1453 Jun, Diabetes type 2, controlled E11.9 and Polyneuropathy G62.9 [place] [id number] [place] [address] 92365- 1402 May, [place] [id number] [place] [address] 92983- 6106 May, Generalized anxiety disorder F41.1 [place] [id number] [place] [address] 02377- 2344 15 May, 2016 Polyneuropathy G62.9 [place] [id number] [place] [address] 45082- 5231 May, [place] [id number] [place] [address] 29127- 1944 Apr, Anxiety disorder, unspecified F41.9 [place] [id number] [place] [address] 55853- 4326 28 Amade[place], 2016 Abdominal pain, unspecified abdominal location R10.9 ; Type 2 diabetes mellitus with hyperglycemia E11.65 ; prison 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.4 and Diabetic polyneuropathy associated with type 2 diabetes mellitus E11.42 [place] [id number] [place] [address] 38404- 6300 Mar, Generalized anxiety disorder F41.1 [place] [id number] [place] [address] 73640- 7979 Mar, Generalized abdominal pain R10.84 and Other male erectile dysfunction N52.8 [facility] [id number] [place] [address] 89819 -0981 Mar, [place] [address] 34226- 2874 Feb, Generalized anxiety disorder F41.1 [place] [address] 62034- 3163 Feb, Abdominal cramping R10.9 ; Acute bilateral low back pain without sciatica M54.5 and Malaise R53.81 [facility]ALK IN [facility] [id number] [place] [address] 01866 -6807 Feb, Candidiasis B37.9 and Costochondritis M94.0 [facility] IN [facility] [address] [place] [id number] [place] [address] 80689 -9756 Feb, Allergic rhinitis, unspecified allergic rhinitis type J30.9 [place] [id number] [place] [address] 77784- 0494 Feb, Generalized anxiety disorder F41.1 [place] [id number] [place] [address] 77086- 1755 Feb, [place] [address] 34081- 9460 Feb, Major depressive disorder, recurrent, moderate F33.1 [place] [id number] [place] [address] 76845- 8072 Feb, Generalized anxiety disorder F41.1 [facility] [address] [address]- 0541 January, Unspecified infectious disease B99.9 [facility] [id number] [place] [address] [id number] January, Dental examination Z01.20 [facility] [id number] [place] [address] 03779- 8882 January, [facility] [id number] [place] [address] 43871- 2656 January, Diabetes type 2, uncontrolled E11.65 [facility] WALK IN [facility] [id number] [place] [address] 68712 -2803 January, Wheezing R06.2 and History of pneumonia Z87.01 [facility] [address] [id number] [place] [address] 75587- 6781 January, [facility] [id number] [place] [address] 50269- 3985 January, Depression, major, recurrent, moderate F33.1 [facility] [address] [id number] [place] [address] 77177- 4586 January, [facility] [id number] [place] [address] 21280- 6373 January, Depression, major, recurrent, moderate F33.1 [facility] [address] [place] [address] 91436- 2013 January, [facility] [id number] [place] [address] 57522- 4135 Dec, Depression, major, recurrent, moderate F33.1 [facility] [address] [place] [id number] [place] [address] 68336- 1524 Dec, Dental examination Z01.20 [facility] [address] [place] [address] [id number] Dec, Dental examination Z01.20 [facility] [address] [address]- 1852 08 Dec, 2015 Generalized anxiety disorder F41.1 [facility] [id number] [place] [address] 70793- 4062 Dec, Generalized anxiety disorder F41.1 [facility] [address] [place] [address] 03476- 5146 30 Nov, 2015 [facility] [id number] [place] [address] 95689- 1777 Nov, [facility] [id number] [place] [address] 34118- 5519 Nov, Generalized anxiety disorder F41.1 [facility] [id number] [place] [address] [id number] [phone] Nov, 2015 Dental examination Z01.20 [facility] [id number] [place] [address] 00766- 5529 Nov, [facility] [address] [place] [address] 77964- 8851 Nov, Generalized anxiety disorder F41.1 and 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 [facility] [address] [place] [id number] [place] [address] 88527- 7496 Nov, Depression, major, recurrent, moderate F33.1 [facility] [address] [place] [address] 73630- 2242 Nov, [facility] [address] [id number] [place] [address] 37997- 0357 Nov, Diabetes type 2, uncontrolled E11.65 and Hypertension I10 [facility] [id number] [place] [address] [id number] [phone] Nov, 2015 Dental examination Z01.20 [facility] [address] [place] [address] 26204- 2757 03 Nov, 2015 [facility] [address] [place] [id number] [place] [address] 03722- 8436 Nov, Depression, major, recurrent, moderate F33.1 [facility] [address] [place] [address] 57498 -7072 Nov, Penile abrasion S30.812A [facility] [address] [id number] [place] [address] 67675- 5394 Oct, Generalized anxiety disorder F41.1 [facility] [address] [id number] [place] [address] 77632- 7662 Oct, Depression, major, recurrent, moderate F33.1 [place] [address] [id number] [place] [address] 26873- 8354 Oct, Diabetes type 2, controlled E11.9 and Malaise R53.81 [facility] [address] [place] [id number] [place] [address] 94902- 9142 Oct, [facility] [id number] [place] [address] 27335- 0914 Oct, [facility] [id number] [place] [address] 17741- 8859 Oct, [facility] [address] [id number] [place] [address] 15348- 9466 Oct, Depression, major, recurrent, moderate F33.1 [facility] [address] [id number] [place] [address] 63860- 1390 Oct, Generalized anxiety disorder F41.1 and 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 [facility] [address] [id number] [place] [address] 42609- 0488 Oct, [facility] [address] [place] [id number] [place] [address] 03512- 0318 Oct, Major depressive disorder, recurrent, moderate F33.1 [facility] [address] [id number] [place] [address] 15849- 8393 Oct, [facility] [address] [id number] [place] [address] 04487- 4130 Oct, [facility] [address] 92981- 0617 Oct, Generalized anxiety disorder F41.1 [facility] [address] [id number] [place] [address] 94115- 8455 Oct, [facility] [address] 55505- 3540 Oct, Back muscle spasm M62.830 [place] [address] [place] [id number] [place] [address] 18130- 0628 Oct, Major depressive disorder, recurrent, moderate F33.1 [facility] WALK IN [facility] [address] [place] [id number] [place] [address] 84642 -3221 Sep, Back muscle spasm M62.830 ; Allergic rhinitis J30.9 and Person with feared health complaint in whom no diagnosis is made Z71.1 [facility] [address] [place] [id number] [place] [address] 38443- 0539 Sep, Generalized anxiety disorder F41.1 [facility] WALK IN [facility] [id number] [place] [address] 79353 -0849 Sep, [place] [address] [id number] [place] [address] 14697- 6922 Sep, [facility] [address] [place] [id number] [place] [address] 47277- 1849 Sep, Mood disorder F39 ; Diabetes type 2, controlled E11.9 ; Morbid obesity due to excess calories E66.01 and Edema, unspecified type R60.9 [place] [address] [id number] [place] [address] 22997- 5645 Sep, Generalized anxiety disorder F41.1 [facility] [address] [place] [id number] [place] [address] 91329- 3366 Sep, [place] [address] [address]- 7124 07 Sep, 2015 Adjustment disorder with mixed anxiety and depressed mood F43.23 and Depression F32.9 [facility] [address] [place] [address] 21221- 8605 06 Sep, 2015 Generalized anxiety disorder F41.1 [facility] [address] [id number] [place] [address] 46510- 6210 05 Sep, 2015 Generalized anxiety disorder 300.02 and Autism spectrum disorder F84.0 [facility] [address] [id number] [id number] Aug, Encounter for dental examination Z01.20 [facility] [address] [id number] [place] [address] 50838- 0318 Aug, [facility] WALK IN [facility] [id number] [place] [address] 80387 -3058 Jul, Candidiasis B37.9 [facility] [address] [id number] [place] [address] 38165- 1214 Jul, [facility] [address] [place] [address] [id number] [id number] Jul, Encounter for dental examination Z01.20 [facility] [address] [place] [address] 02907- 6690 02 Jul, 2015 [facility] [id number] [place] [address] 54072- 4249 Jun, [facility] [id number] [place] [address] 93304- 7129 30 May, 2015 Diabetes type 2, controlled 250.00 and Neuropathy 355.9 [facility] [id number] [place] [address] 67347- 9029 16 May, 2015 [facility] [address] [place] [address] 47359- 1930 Apr, Generalized anxiety disorder 300.02 and Autism spectrum disorder 299.00 [place] [address] [id number] [place] [address] 11831- 0280 Apr, Abrasion, foot 917.0 ; Chest pain 786.50 and Back pain 724.5 [facility] [id number] [place] [address] 22722- 3619 Apr, Generalized anxiety disorder 300.02 [facility] [id number] [place] [address] 87145- 4963 Feb, Anxiety state, unspecified 300.00 [facility] [id number] [place] [address] 63207- 6905 Feb, Diabetes mellitus without mention of complication, type II or unspecified type, not stated as uncontrolled 250.00 ; Generalized anxiety disorder 300.02 ; Morbid obesity 278.01 ; Benign essential hypertension 401.1 ; Chronic pain 338.29 ; Screen for STD (sexually transmitted disease) V74.5 ; Dysuria 788.1 and Kelly infection of genital region 112.2 [facility] [id number] [place] [address] 05080- 2244 Feb, [facility] [id number] [place] [address] 20342- 4597 January, Generalized anxiety disorder 300.02 and Autism spectrum disorder 299.00 [facility] [id number] [place] [address] 38236- 2342 Dec, [facility] [id number] [place] [address] 96746- 2865 Dec, [facility] [id number] [place] [address] 07111- 6476 Dec, [facility] [id number] [place] [address] 70343- 0089 Nov, [facility] [address] [place] [address] [id number] Nov, [facility] [id number] [place] [address] 86022- 0883 Nov, [facility] [place] [facility] [address] [id number] [place] [address]- 8906 Nov, [facility] [place] [facility] [address] [id number] [place] [id number] Nov, [facility] [place] [facility] [address] [id number] [place] [address]- 5764 Oct, [facility] [place] [facility] [address] [id number] [place] [address]- 8860 Jul, [facility] [place] [facility] [address] [id number] [place] [address]- 5216 Jul, [facility] [place] [facility] [address] [id number] [place] [address]- 5533 Jul, [facility] [place] [facility] [address] [id number] [place] [address]- 3739 Jul, [facility] [place] [facility] [address] [id number] [place] [address]- 4306 Jul, [facility] [place] [facility] [address] [id number] [place] [address]- 3369 Jul, [facility] [place] [facility] [address] [id number] [place] [address]- 7192 Jul, [facility] [place] [facility] [address] [id number] [place] [address]- 3231 Jul, [facility] [place] [facility] [address] [id number] [address]- 0477 Jul, [facility] [place] [facility] [address] [id number] [place] [address]- 3843 Jul, [facility] [place] [facility] [address] [id number] [place] 2319 Jun, [facility] [place] [facility] [address] [id number] [place] 6471 Jun, [facility] [place] [facility] [address] [id number] [address]- 3725 Jun, [facility] [place] [facility] [address] [id number] [place] [address]- 2851 Jun, [facility] [place] [facility] [address] [id number] [place] [address]- 1430 16 Jun, 2014 [facility] [place] [facility] [address] [id number] [place] [address]- 2269 Jun, [facility] [place] [facility] [address] [id number] [place] [address]- 8788 Jun, [facility] [place] [facility] [address] [id number] [place] [address]- 9034 30 May, 2014 [facility] [place] [facility] [address] [id number] [place] [address]- 4967 30 May, 2014 [facility] [place] [facility] [address] [id number] [place] [address]- 3089 May, [facility] [place] [facility] [address] [id number] [place] [address]- 9411 May, [facility] [place] [facility] [address] [id number] [place] [address]- 5198 May, [facility] [place] [facility] [address] [id number] [place] [address]- 4906 May, [facility] [place] [facility] [address] [id number] [place] [address]- 1994 May, [facility] [place] [facility] [address] [id number] [place] [address]- 2670 May, [facility] [place] [facility] [address] [id number] [place] [address]- 9344 Apr, [facility] [place] [facility] [address] [id number] [place] [address]- 0774 Apr, [facility] [place] [facility] [address] [id number] [place] [address]- 0695 Apr, [facility] [place] [facility] [address] [id number] [place] [address]- 6049 Apr, [facility] [place] [facility] [address] [id number] [place] [address]- 1809 Apr, [facility] [place] [facility] [address] [id number] [place] [address]- 1020 Apr, [facility] [place] [facility] [address] [id number] [place] [address]- 9568 Apr, [facility] [place] [facility] [address] [id number] [place] [address]- 8501 Apr, [facility] [place] [facility] [address] [id number] [place] [address]- 0392 Apr, [facility] [place] [facility] [address] [id number] [place] [address]- 2065 Mar, [facility] [place] [facility] [address] [id number] [place] [address]- 2102 Mar, [facility] [place] [facility] [address] [id number] [place] [address]- 8151 Mar, [facility] [place] [facility] [address] [id number] [place] [address]- 1373 Mar, [facility] [place] [facility] [address] [id number] [place] [address]- 2131 Mar, [facility] [place] [facility] [address] [id number] [place] [address]- 0135 Mar, [facility] [place] [facility] [address] [id number] [place] [address]- 9910 Feb, [facility] [place] [facility] [address] [id number] [place] [address]- 0823 Feb, [facility] [place] [facility] [address] [id number] [place] [address]- 2208 Feb, [facility] [place] [facility] [address] [id number] [place] [address]- 4397 January, [facility] [place] [facility] [address] [id number] [place] [address]- 7060 January, [facility] [place] [facility] [address] [id number] [place] [address]- 8521 January, [facility] [place] [facility] [address] [id number] [place] [address]- 8533 January, [facility] [place] [facility] [address] [id number] [place] [address]- 5620 January, [facility] [place] [facility] [address] [id number] [place] [address]- 2082 January, [facility] [place] [facility] [address] [id number] [place] [address]- 6716 Dec, [facility] [place] [facility] [address] [id number] [place] [address]- 6169 Dec, [facility] [place] [facility] [address] [id number] [place] [address]- 2697 Dec, [facility] [place] [facility] [address] [id number] [place] [address]- 5822 Dec, [facility] [place] [facility] [address] [id number] [place] [address]- 7206 Nov, [facility] [place] [facility] [address] [id number] [place] [address]- 7312 Nov, [facility] [place] [facility] [address] [id number] [place] [address]- 1910 Oct, [facility] [place] [facility] [address] [id number] [place] [address] Oct, [facility] [place] [facility] [address] [id number] [place] [address] Sep, [facility] [place] [facility] [address] [id number] [place] [address] Sep, [facility] [place] [facility] [address] [id number] [place] [address] Aug, [facility] [address] [id number] [place] [address] Aug, [facility] [place] [facility] [address] [id number] [place] [address] Aug, [facility] [address] [id number] [place] [address] Jul, [facility] [place] [facility] [address] [id number] [place] [address] Jul, [facility] [place] [facility] [address] [id number] [place] [address] Jul, [facility] [place] [facility] [address] [id number] [place] [address] Jul, [facility] [address] [id number] [place] [address] Jul, [facility] [place] [facility] [address] [id number] [place] [address] May, [facility] [place] [facility] [address] [id number] [place] [address] May, [facility] [place] [facility] [address] [id number] [place] [address] Apr, [facility] [place] [facility] [address] [id number] [place] [address] Apr, [facility] [place] [facility] [address] [id number] [place] [address] Mar, [facility] [place] [facility] [address] [id number] [place] [address] Mar, [facility] [place] [facility] [address] [id number] [place] [address] Mar, [facility] [place] [facility] [address] [id number] [place] [address] Mar, [facility] [place] [facility] [address] [id number] [place] [address] Feb, [facility] [address] [id number] [place] [address] Feb, [facility] [address] [id number] [place] [address] Feb, [facility] [address] [id number] [place] [address] Feb, [facility] [address] [id number] [place] [address] Feb, [facility] [address] [id number] [place] [address] January, [facility] [address] [id number] [place] [address] January, [facility] [address] [id number] [place] [address] January, [facility] [address] [id number] [place] [address] January, [facility] [address] [id number] [place] [address] Dec, [facility] [address] [id number] [place] [address] Dec, [facility] [address] [id number] [place] [address] 18 Dec, 2012 [facility] [address] [id number] [place] [address] 10 Dec, 2012 [facility] [place] [facility] [address] [id number] [place] [address] Nov, [facility] [place] [facility] [address] [id number] [place] [address] 05 Nov, 2012 [facility] [address] [id number] [place] [address] Oct, [facility] [address] [id number] [place] [address] Aug, [facility] [address] [id number] [place] [address] Aug, [facility] [address] [id number] [place] [address] Dec, [facility] [address] [id number] [place] [address] Dec, [facility] [address] [id number] [place] [address]- [address] Dec, [facility] [address] [id number] [place] [address] Nov, [facility] [address] [facility] [id number] [place] [address] Nov, [facility] [address] [id number] [place] [address] Oct, [facility] [address] [id number] [place] [address] Oct, [facility] [address] [facility] [id number] [place] [address] Oct, [facility] [address] [id number] [place] [address] Sep, [facility] [place] [facility] [address] [id number] [place] [address] Sep, [facility] [place] [facility] [address] [id number] [place] [address] Sep, [facility] [place] [facility] [address] [id number] [place] [address] Sep, [facility] [place] [facility] [address] [facility] [id number] [place] [address] Sep, [facility] [place] [facility] [address] [id number] [place] [address] 11 Sep, 2011 [facility] [place] [facility] [address] [id number] [place] [address] 10 Sep, 2011 [facility] [place] [facility] [address] [id number] [place] [address] 09 Sep, 2011 [facility] [place] [facility] [address] [id number] [place] [address] 22 Jul, 2011 [facility] [place] [facility] [address] [id number] [place] [address] 15 Jul, 2011 [facility] [place] [facility] [address] [id number] [place] [address] 15 Jul, 2011 [facility] [place] [facility] [address] [id number] [place] [address] 14 Nov, 2010 [facility] [place] [facility] [address] [id number] [place] [address] 17 Aug, 2010 [facility] [place] [facility] [address] [id number] [place] [address] 17 Aug, 2010 [facility] [place] [facility] [address] [id number] [place] [address] 16 Aug, 2010 [facility] [place] [facility] [address] [id number] [place] [address] 15 Aug, 2010 [facility] [place] [facility] [address] [id number] [place] [address] 09 Aug, 2010 [facility] [place] [facility] [address] [id number] [place] [address] Jul, [facility] [place] [facility] [address] [id number] [place] [address] 12 Jun, 2010 [facility] [place] [facility] [address] [id number] [place] [address] Jun, [facility] [place] [facility] [address] [id number] [place] [address] Sep, [facility] [address] [id number] [address] Aug, [facility] [id number] [address] Aug, [facility] [id number] [address] Aug, [facility] [id number] [address] Jun, [facility] [id number] [address] Jun, [facility] [id number] [place] [address] May, [facility] [id number] [place] [address] Apr, [facility] [id number] [address] Mar, [facility] [id number] [address] January, [facility] [id number] [address] Oct, IMMUNIZATIONS No Known Immunizations SOCIAL HISTORY Never Assessed REASON FOR VISIT SOCWK F/U PLAN OF CARE VITAL SIGNS MEDICATIONS Unknown [...] Hospitalization History celluitis of the left upper thigh-[facility] 04/2017 Hospitalization History [facility]-inpatient psych 4 day stay 2013 Hospitalization History ED [place]- Shaking, unsure of blood sugar level 11/20/2017
--- OUTSIDE RECORDS SUMMARY | 2018-07-05 10:37 | XMS REPORT ---
Author Author SOFÍA STEWARD [facility] Address [address] [place] [address] Care Team Providers Care Patient Registration Manager Name Role Phone SOFÍA STEWARD Unavailable PROBLEMS Type Condition ICD9-CM Code [id number] Code Onset Dates Condition Status SNOMED Code Problem Other male erectile dysfunction N52.8 Active 361677304 Problem Diabetes type 2, controlled E11.9 Active 04587909 Problem Obesity, unspecified E66.9 Active 601723210 Problem Gastro-esophageal reflux disease with esophagitis K21.0 Active 283992747 Problem Insomnia, unspecified G47.00 Active 070219518 Problem Anxiety F41.9 Active 33705160 Problem 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 Active 57559110 Problem Hypertriglyceridemia E78.1 Active 415274061 Problem Generalized anxiety disorder F41.1 Active 48472308 Problem Chronic fatigue R53.82 Active 83614821 Problem Type 2 diabetes mellitus 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 E11.9 Active 404061902 Problem BMI 45.0-49.9, adult Z68.42 Active 164901123 Problem Other chronic pain G89.29 Active 54202761 Problem Morbid obesity due to excess calories E66.01 Active 261075381 Problem Type 2 diabetes mellitus with hyperglycemia E11.65 Active 094155554 Problem Hypertension I10 Active 05978229 Problem Diabetes type 2, uncontrolled E11.65 Active 230129065 Problem Mild episode of recurrent major depressive disorder F33.0 Active 177162316 Problem Type 2 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 Active 47710804 Problem Hypogonadism in male E29.1 Active 50778828 Problem Seasonal allergies J30.2 Active 268689281 Problem Controlled type 2 diabetes mellitus without complication, without long -term current use of insulin E11.9 Active 488318012 Problem Diabetic polyneuropathy associated with type 2 diabetes mellitus E11.42 Active 87884510 Problem Polyneuropathy G62.9 Active 31485848 Problem 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 Active 172031726 Problem 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.4 Active 553084851 Problem Diverticulitis of small intestine without perforation or abscess without bleeding K57.12 Active 02600603 Problem GERD without esophagitis K21.9 Active 825059572 Problem Type 2 diabetes mellitus with hyperglycemia E11.65 Active 846178690 ALLERGIES Substance Reaction Event Type Date Status Zoloft hives adverse reaction Drug Allergy May, Active Wellbutrin "out of it" Drug Allergy May, Active Clindamycin HCl itching Drug Allergy May, Active BuSpar local swelling Drug Allergy May, Active ENCOUNTERS Encounter Location Date Diagnosis [place] [id number] [place] [address] 26358- 4299 Aug, [place] [address] 76777- 6026 Jun, [place] [id number] [place] [address] 66487- 8457 May, Generalized abdominal pain R10.84 ; Hypogonadism in male E29.1 ; Hospital discharge follow-up Z09 and BMI 45.0-49.9, adult Z68.42 [place] [address] 81108- 6750 May, 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 ; Generalized anxiety disorder F41.1 and BMI 45.0-49.9, adult Z68.42 [facility] [id number] [place] [address] 05591- 8561 May, Uncontrolled type 2 diabetes mellitus with hyperglycemia E11.65 [facility] [id number] [place] [address] 00186- 3510 May, Uncontrolled type 2 diabetes mellitus with hyperglycemia E11.65 ; BMI 45.0-49.9, adult Z68.42 and Colitis K52.9 [place] [id number] [place] [address] 44450- 6868 May, [facility] [id number] [place] [address] 91143- 7888 May, [facility] [id number] [place] [address] 81497 -9797 Apr, Colitis K52.9 ; Abdominal discomfort R10.9 and Anxiety F41.9 [place] [address] 20290- 6445 Apr, [place] [address] 62389- 8412 Apr, Colitis K52.9 and BMI 45.0-49.9, adult Z68.42 [place] [address] 74044- 2344 Apr, Diabetes type 2, uncontrolled E11.65 [place] [address] 72644- 1784 Apr, 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 ; Generalized anxiety disorder F41.1 and BMI 45.0-49.9, adult Z68.42 [place] [address] 25786- 5342 Apr, [place] [address] 25832- 9252 Apr, BMI 45.0-49.9, adult Z68.42 [place] [address] 99618- 8847 Apr, Candidiasis B37.9 ; Pain in right shoulder M25.511 ; Pain in left shoulder M25.512 ; Other chronic pain G89.29 and Morbid obesity due to excess calories E66.01 [place] [address] 01917- 2953 Apr, Hypogonadism in male E29.1 [facility] [place] [address] 03640 -9767 Mar, Yeast dermatitis B37.2 and Sensation of foreign body in throat R09.89 [place] [address] 27624- 9110 Mar, [place] [address] [address] 4619 Mar, Hypogonadism in male E29.1 [facility] [id number] [place] [address] 05476- 2216 Mar, Hypogonadism in male E29.1 [facility] [id number] [place] [address] 42791- 4844 Mar, [facility] [id number] [place] [address] 73984- 1710 Mar, Diabetes type 2, uncontrolled E11.65 and Hypogonadism in male E29.1 [place] [id number] [place] [address] 29283- 7134 Mar, [place] [id number] [place] [address] 64537- 6177 Feb, Diabetes type 2, controlled E11.9 ; Myalgia M79.1 and BMI 45.0-49.9, adult Z68.42 [facility] [id number] [place] [address] 07441 -9563 Feb, Hematuria, unspecified type R31.9 ; Side pain R10.9 and Rash R21 [place] [id number] [place] [address] 31192- 3813 January, [place] [id number] [place] [address] 78498- 5849 January, [place] [id number] [place] [address] 22673- 5461 January, [facility] [id number] [place] [address] 35222 -4211 January, Seasonal allergies J30.2 and BMI 45.0-49.9, adult Z68.42 [facility] [address], [place] [address]- 3349 January, Chronic fatigue R53.82 ; Mild episode of recurrent major depressive disorder F33.0 and Polyneuropathy G62.9 [place] [id number] [place] [address] 28104- 3251 January, Chronic fatigue R53.82 ; BMI 45.0-49.9, adult Z68.42 and Anxiety F41.9 [place] [id number] [place] [address] 19183- 6817 January, Generalized anxiety disorder F41.1 [place] [id number] [place] [address] 74007- 1732 Dec, 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 ; Generalized anxiety disorder F41.1 ; High risk medication use Z79.899 and BMI 45.0-49.9, adult Z68.42 [place] [id number] [place] [address] 99457- 3347 Dec, [facility] [id number] [place] [address] [id number] 17 Dec, 2017 Encounter for dental examination Z01.20 [place] [id number] [place] [address] 79239- 6599 11 Dec, 2017 Mild episode of recurrent major depressive disorder F33.0 ; Type 2 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 and MCC 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.4 [place] [address] [place] [address] 35758- 2211 Nov, [place] [id number] [place] [address] 50699- 5059 Nov, BMI 45.0-49.9, adult Z68.42 ; 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 and Generalized anxiety disorder F41.1 [place] [id number] [place] [address] 58412- 5884 Nov, Type 2 diabetes mellitus 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 E11.9 and MCC 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.4 [facility] [id number] [place] [address] [id number] Oct, Dental examination Z01.20 and Dental caries K02.9 [facility] [id number] [place] [address] 61511- 9422 Oct, [place] [id number] [place] [address] 95524- 4566 Oct, BMI 45.0-49.9, adult Z68.42 ; 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 and Generalized anxiety disorder F41.1 [place] [id number] [place] [address] 59133- 2179 Oct, [place] [id number] [place] [address] 77972- 8852 Oct, [place] [id number] [place] [address] 23270- 4965 Oct, Hypertriglyceridemia E78.1 [place] [id number] [place] [address] 92888- 4405 Oct, Hypertriglyceridemia E78.1 [place] [id number] [place] [address] 06463- 5094 Sep, Controlled type 2 diabetes mellitus without complication, without long-term current use of insulin E11.9 [place] [id number] [place] [address] 82458- 0955 Sep, [place] [id number] [place] [address] 23774- 6417 Sep, Controlled type 2 diabetes mellitus without complication, without long-term current use of insulin E11.9 [place] [address] [place] [address] 46115- 4764 Sep, [place] [id number] [place] [address] 15042- 5980 Sep, [facility] [address] [place] [address] 86030- 1064 Sep, BMI 45.0-49.9, adult Z68.42 ; Diabetic polyneuropathy associated with type 2 diabetes mellitus E11.42 and Chronic fatigue R53.82 [facility] [id number] [place] [address] 18702- 7205 Sep, [facility] [id number] [place] [address] 37016- 0203 Sep, Hypertriglyceridemia E78.1 [place] [id number] [place] [address] 86931- 9269 Aug, [facility] [id number] [place] [address] 39619- 7598 Aug, Generalized anxiety disorder F41.1 [place] [id number] [place] [address] 76507- 8736 Aug, [place] [id number] [place] [address] 78904- 9142 Aug, Hypertriglyceridemia E78.1 [place] [id number] [place] [address] 99644- 3741 Jul, [facility] [id number] [place] [address] 34473- 2675 Jul, [place] [id number] [place] [address] 70641- 3261 Jul, Generalized anxiety disorder F41.1 ; 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 ; BMI 45.0-49.9, adult Z68.42 and Patient's noncompliance with other medical treatment and regimen Z91.19 [place] [id number] [place] [address] 39001- 2496 Jul, Diabetes type 2, uncontrolled E11.65 ; Diabetic polyneuropathy associated with type 2 diabetes mellitus E11.42 ; Abdominal pain , right upper quadrant R10.11 and Low back pain radiating to left lower extremity M54.5 [place] [id number] [place] [address] 94740- 3211 Jul, Generalized anxiety disorder F41.1 [place] [address] [place] [address] [place] [address]- 6069 Jul, [facility] [id number] [place] [address] 04087- 5337 Jul, Hypertriglyceridemia E78.1 [facility] [id number] [place] [address] 01940- 8332 Jul, Controlled type 2 diabetes mellitus without complication, without long-term current use of insulin E11.9 [facility] [id number] [place] [address] 41219- 3574 Jun, [facility] [id number] [place] [address] 23965- 1560 Jun, Hypertriglyceridemia E78.1 [facility] [id number] [place] [address] 72751- 3510 Jun, Controlled type 2 diabetes mellitus without complication, without long-term current use of insulin E11.9 [place] [id number] [place] [address] 60154- 5453 Jun, Generalized anxiety disorder F41.1 [place] [id number] [place] [address] 76840- 3909 Jun, Candidiasis B37.9 [facility] [id number] [place] [address] 74202- 3694 May, [facility] [id number] [place] [address] 24585- 2694 18 May, 2017 Controlled type 2 diabetes mellitus without complication, without long-term current use of insulin E11.9 [facility] [address] [place] [address] 52660- 4244 14 May, 2017 Hypertriglyceridemia E78.1 [facility] [id number] [place] [address] 23242- 9452 14 May, 2017 Hypertriglyceridemia E78.1 [facility] [id number] [place] [address] 71578- 0345 14 May, 2017 Hypertriglyceridemia E78.1 and Hypotestosteronemia E34.9 [facility] [id number] [place] [address] 31825- 1468 May, Generalized anxiety disorder F41.1 [facility] [id number] [place] [address] 78398- 1451 05 May, 2017 [facility] [id number] [place] [address] 46549 -2580 May, Abscess and cellulitis L03.90 [facility] [address] [id number] [place] [address] [id number] Apr, [place] [id number] [place] [address] 78566- 0981 Apr, [place] [id number] [place] [address] 18106- 9640 Apr, Dermatofibroma of back D23.5 [facility] [place] [id number] [place] [address] 48095 -3744 Apr, Muscle strain of left thigh, initial encounter S76.912A [place] [id number] [place] [address] 04545- 3972 Apr, [place] [id number] [place] [address] 80163- 4544 Apr, Generalized anxiety disorder F41.1 [place] [id number] [place] [address] 33068- 0023 Apr, Polyneuropathy G62.9 [place] [id number] [place] [address] 43516- 8112 Apr, GERD without esophagitis K21.9 [place] [id number] [place] [address] 67549- 8044 Apr, Generalized anxiety disorder F41.1 ; Diastasis recti M62.08 and Controlled type 2 diabetes mellitus without complication, without long-term current use of insulin E11.9 [place] [address] [place] [address] 25384- 4281 Apr, Generalized anxiety disorder F41.1 ; 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 and Controlled type 2 diabetes mellitus without complication, without long-term current use of insulin E11.9 [facility] [id number] [place] [address] 76931- 3665 Mar, Generalized anxiety disorder F41.1 ; Diastasis recti M62.08 and Controlled type 2 diabetes mellitus without complication, without long-term current use of insulin E11.9 [place] [id number] [place] [address] 65985- 6521 Mar, Controlled type 2 diabetes mellitus without complication, without long-term current use of insulin E11.9 [place] [id number] [place] [address] 77969- 8302 Mar, Generalized anxiety disorder F41.1 [place] [id number] [place] [address] 92257- 7100 Mar, Generalized anxiety disorder F41.1 [place] [id number] [place] [address] 89992- 7537 Mar, Generalized anxiety disorder F41.1 [place] [id number] [place] [address] 15383- 7915 Mar, Generalized anxiety disorder F41.1 [place] [address] [place] [address] 78695- 7850 Feb, Controlled type 2 diabetes mellitus without complication, without long-term current use of insulin E11.9 [place] [address], [place] [address]- 7879 Feb, Controlled type 2 diabetes mellitus without complication, without long-term current use of insulin E11.9 and Tinea cruris B35.6 [facility] [address] [place] [address] 33656- 8530 Feb, Diabetes type 2, controlled E11.9 [facility] [id number] [place] [address] [id number] Feb, Dental examination Z01.20 [facility] [address] [place] [address] 13970- 8888 Feb, Dental examination Z01.20 [facility] [id number] [place] [address] 48604- 6728 Feb, Generalized anxiety disorder F41.1 [facility] [address] [place] [address] 59285 -5314 Feb, Muscle spasm M62.838 and Diabetes type 2, controlled E11.9 [facility] [id number] [place] [address] 75889- 0231 Feb, Type 2 diabetes mellitus with hyperglycemia E11.65 [facility] [id number] [place] [address] [id number] Feb, Dental examination Z01.20 [facility] [id number] [place] [address] [id number] Feb, Encounter for dental examination Z01.20 [facility] [address] [place] [address] 57849- 5744 Feb, Diabetes type 2, controlled E11.9 [facility] [address] [place] [address] 06600- 6679 Feb, Type 2 diabetes mellitus with hyperglycemia E11.65 [facility] [id number] [place] [address] 89610- 9693 Feb, [facility] [id number] [place] [address] 92309- 8570 Feb, Controlled type 2 diabetes mellitus without complication, without long-term current use of insulin E11.9 [facility] [address] [place] [address] 00206- 4574 January, Candidiasis B37.9 [facility] [id number] [place] [address] 98306- 2345 January, Type 2 diabetes mellitus with hyperglycemia E11.65 ; Hypertension I10 and Anxiety F41.9 [facility] [id number] [place] [address] 12490- 3932 January, Type 2 diabetes mellitus with hyperglycemia E11.65 [place] [id number] [place] [address] 19467- 9809 January, Controlled type 2 diabetes mellitus without complication, without long-term current use of insulin E11.9 [place] [id number] [place] [address] 99929- 7500 January, Generalized anxiety disorder F41.1 ; 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 ; Foot callus L84 and Controlled type 2 diabetes mellitus without complication, without long-term current use of insulin E11.9 [place] [id number] [place] [address] 18976- 7087 Dec, [place] [address] 91228- 8754 Dec, [place] [address] 32676- 1514 Dec, Foot callus L84 and Rash R21 [address] 21015- 5765 Dec, Controlled type 2 diabetes mellitus without complication, without long-term current use of insulin E11.9 [place] [id number] [place] [address] 05868- 8872 Nov, [facility] [id number] [place] [address] 45093 -9911 Nov, Sore throat J02.9 and Strep pharyngitis J02.[address] 64915- 2286 Nov, Generalized anxiety disorder F41.1 [place] [id number] [place] [address] 65625- 8999 Nov, [place] [address] [place] [address]- 0688 Nov, [place] [id number] [place] [address] 58490- 2901 Nov, Type 2 diabetes mellitus with hyperglycemia E11.65 [place] [id number] [place] [address] 72698- 3391 Nov, Diabetes type 2, uncontrolled E11.65 and Localized edema R60.0 [place] [id number] [place] [address] 00436- 5173 Nov, Controlled type 2 diabetes mellitus without complication, without long-term current use of insulin E11.9 [place] [address] 71382- 4107 14 Oct, 2016 Generalized anxiety disorder F41.1 and 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 [place] [id number] [place] [address] 00200- 0669 Oct, [place] [id number] [place] [address] 01417- 8539 Oct, Type 2 diabetes mellitus with hyperglycemia E11.65 [place] [id number] [place] [address] 10072- 8922 Oct, Type 2 diabetes mellitus with hyperglycemia E11.65 and 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.4 [place] [id number] [place] [address] 86859- 4063 Oct, [place] [id number] [place] [address] 45098- 2203 Oct, [facility] [id number] [place] [address] [id number] Oct, Encounter for dental examination Z01.20 [place] [id number] [place] [address] 15434- 2500 Sep, [place] [address] [address] [id number] [place] [address] 13448- 5191 Sep, Diabetes type 2, controlled E11.9 [facility] [place] [id number] [place] [address] 72755 -8821 Sep, Abdominal pain R10.9 and Diverticulitis of small intestine without perforation or abscess without bleeding K57.12 [place] [address] [place] [id number] [place] [address] 19688- 7276 Sep, [place] [address] 87036- 1970 Sep, Diabetes type 2, controlled E11.9 [place] [address] 00975- 4325 Sep, Controlled type 2 diabetes mellitus without complication, without long-term current use of insulin E11.9 [place] [address] 92871- 3729 Sep, Type 2 diabetes mellitus 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 E11.9 and 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.4 [facility] [place] [id number] [place] [address] 46619 -4709 Aug, Lower abdominal pain R10.30 ; GERD without esophagitis K21.9 and Candidiasis of skin B37.2 [place] [address] [address] [place] [id number] [place] [address] Aug, Controlled type 2 diabetes mellitus without complication, without long-term current use of insulin E11.9 and Diabetic polyneuropathy associated with type 2 diabetes mellitus E11.42 [facility] [place] [address] [address] [place] [id number] [place] [phone] Jul, Kelly infection of genital region B37.49 and Diabetes type 2, controlled E11.9 [place] [address] [address] [place] [id number] [place] [address] Jul, Controlled type 2 diabetes mellitus without complication, without long-term current use of insulin E11.9 ; 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 and Acute pharyngitis due to other specified organisms J02.8 [facility] [place] [address] [place] [address] Jul, Acute upper respiratory infection, unspecified J06.9 and Other viral agents as the cause of diseases classified elsewhere B97.89 [place] [address] [address] [place] [id number] [place] [address] Jun, Generalized anxiety disorder F41.1 [place] [address] [address] [place] [id number] [place] [phone] 14 Jun, 2016 [place] [address] [address] [place] [id number] [place] [phone] Jun, Diabetes type 2, controlled E11.9 and Polyneuropathy G62.9 [place] [address] [address] [place] [id number] [place] [phone] May, [place] [address] [address] [place] [id number] [place] [address] [address]- 1139 May, Generalized anxiety disorder F41.1 [facility] [id number] [place] [address] 12452- 5910 15 May, 2016 Polyneuropathy G62.9 [facility] [id number] [place] [address] 79889- 9440 May, [facility] [id number] [place] [address] 56600- 9546 Apr, Anxiety disorder, unspecified F41.9 [facility] [id number] [place] [address] 90583- 8687 Mar, Abdominal pain, unspecified abdominal location R10.9 ; Type 2 diabetes mellitus with hyperglycemia E11.65 ; 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.4 and Diabetic polyneuropathy associated with type 2 diabetes mellitus E11.42 [facility] [id number] [place] [address] 24962- 6579 Mar, Generalized anxiety disorder F41.1 [facility] [id number] [place] [address] 31857- 4215 Mar, Generalized abdominal pain R10.84 and Other male erectile dysfunction N52.8 [facility] [id number] [place] [address] 34290 -4707 Mar, [facility] [address] 70697- 9769 Feb, Generalized anxiety disorder F41.1 [facility] [address] 72155- 0745 Feb, Abdominal cramping R10.9 ; Acute bilateral low back pain without sciatica M54.5 and Malaise R53.81 [facility] [id number] [place] [address] 29106 -1454 Feb, Candidiasis B37.9 and Costochondritis M94.0 [facility] [address] 44388 -9575 Feb, Allergic rhinitis, unspecified allergic rhinitis type J30.9 [facility] [id number] [place] [address] 67787- 3081 Feb, Generalized anxiety disorder F41.1 [facility] [address] 41691- 4455 Feb, [facility] [id number] [place] [address] 77568- 7431 Feb, Major depressive disorder, recurrent, moderate F33.1 [facility] [id number] [place] [address] 18997- 5543 Feb, Generalized anxiety disorder F41.1 [facility] [id number] [place] [address] 38080- 3169 January, Unspecified infectious disease B99.9 [facility] [id number] [place] [address] [id number] January, Dental examination Z01.20 [facility] [id number] [place] [address] 35828- 7726 January, [facility] [address], [place] [address]- 0429 16 Jan, 2016 Diabetes type 2, uncontrolled E11.65 [facility] [id number] [place] [address] 10963 -0912 13 Jan, 2016 Wheezing R06.2 and History of pneumonia Z87.01 [facility] [address] [place] [address] 84954- 6203 January, [facility] [id number] [place] [address] 29477- 1284 January, Depression, major, recurrent, moderate F33.1 [facility] [id number] [place] [address] 36537- 5302 January, [facility] [id number] [place] [address] 17026- 7883 January, Depression, major, recurrent, moderate F33.1 [facility] [id number] [place] [address] 55313- 8432 January, [facility] [id number] [place] [address] 22269- 4725 Dec, Depression, major, recurrent, moderate F33.1 [facility] [address], [place] [address] 0149 Dec, Dental examination Z01.20 [facility] [id number] [place] [address] [id number] Dec, Dental examination Z01.20 [facility] [address] [place] [address] 18571- 6642 Dec, Generalized anxiety disorder F41.1 [facility] [address] [place] [address] 17118- 5835 Dec, Generalized anxiety disorder F41.1 [facility] [address], [place] [address]- 9080 Nov, [facility] [id number] [place] [address] 49814- 9844 Nov, [facility] [id number] [place] [address] 18326- 9083 Nov, Generalized anxiety disorder F41.1 [facility] [id number] [place] [address] [id number] Nov, Dental examination Z01.20 [facility] [id number] [place] [address] 43782- 8794 Nov, [facility] [id number] [place] [address] 31989- 6474 Nov, Generalized anxiety disorder F41.1 and 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 [facility] [id number] [place] [address] 77531- 3434 Nov, Depression, major, recurrent, moderate F33.1 [facility] [id number] [place] [address] 83465- 2896 Nov, [facility] [id number] [place] [address] 98102- 2754 Nov, Diabetes type 2, uncontrolled E11.65 and Hypertension I10 [facility] [id number] [place] [address] [id number] Nov, Dental examination Z01.20 [facility] [id number] [place] [address] 38302- 4473 Nov, [facility] [id number] [place] [address] 68516- 4821 Nov, Depression, major, recurrent, moderate F33.1 [facility] [id number] [place] [address] 07452 -0459 Nov, Penile abrasion S30.812A [facility] [id number] [place] [address] 11074- 7274 Oct, Generalized anxiety disorder F41.1 [facility] [address] [place] [address]- 8173 Oct, Depression, major, recurrent, moderate F33.1 [facility] [id number] [place] [address] 28224- 0821 Oct, Diabetes type 2, controlled E11.9 and Malaise R53.81 [facility] [id number] [place] [address] 58623- 0982 Oct, 2015 [facility] [id number] [place] [address] 45255- 9880 Oct, 2015 [facility] [id number] [place] [address] 57877- 1841 Oct, 2015 [facility] [id number] [place] [address] 31548- 9261 Oct, Depression, major, recurrent, moderate F33.1 [facility] [id number] [place] [address] 63266- 0317 Oct, Generalized anxiety disorder F41.1 and 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 [facility] [id number] [place] [address] 21665- 8788 Oct, 2015 [facility] [id number] [place] [address] 80025- 6944 Oct, Major depressive disorder, recurrent, moderate F33.1 [facility] [id number] [place] [address] 49225- 8262 Oct, [facility] [id number] [place] [address] 46152- 6014 Oct, [facility] [id number] [place] [address] 95005- 8201 Oct, Generalized anxiety disorder F41.1 [facility] [id number] [place] [address] 35638- 6753 Oct, [facility] [id number] [place] [address] 53336- 2067 04 Oct, 2015 Back muscle spasm M62.830 [facility] [id number] [place] [address] 97517- 3975 04 Oct, 2015 Major depressive disorder, recurrent, moderate F33.1 [facility] [id number] [place] [address] 88421 -8913 28 Sep, 2015 Back muscle spasm M62.830 ; Allergic rhinitis J30.9 and Person with feared health complaint in whom no diagnosis is made Z71.1 [facility] [id number] [place] [address] 04425- 2345 22 Sep, 2015 Generalized anxiety disorder F41.1 [facility] [id number] [place] [address] 79593 -3857 15 Sep, 2015 [facility] [id number] [place] [address] 21370- 4356 Sep, [facility] [id number] [place] [address] 44916- 4358 13 Sep, 2015 Mood disorder F39 ; Diabetes type 2, controlled E11.9 ; Morbid obesity due to excess calories E66.01 and Edema, unspecified type R60.9 [facility] [id number] [place] [address] 28580- 1021 13 Sep, 2015 Generalized anxiety disorder F41.1 [facility] [id number] [place] [address] 91705- 4644 Sep, [facility] [id number] [place] [address] 93496- 1444 07 Sep, 2015 Adjustment disorder with mixed anxiety and depressed mood F43.23 and Depression F32.9 [facility] [id number] [place] [address] 44199- 5573 06 Sep, 2015 Generalized anxiety disorder F41.1 [facility] [id number] [place] [address] 56185- 8291 05 [place], 2016 Generalized anxiety disorder 300.02 and Autism spectrum disorder F84.0 [facility] [address] [id number] [id number] Aug, Encounter for dental examination Z01.20 [facility] [address], [place] [address]- 5975 16 Aug, 2015 [facility] [id number] [place] [address] 46765 -4907 17 Jul, 2015 Candidiasis B37.9 [facility] [id number] [place] [address] 50614- 5127 13 Jul, 2015 [facility] [address] [place] [address] A[id number] [id number] Jul, Encounter for dental examination Z01.20 [facility] [address] [place] [address] 89546- 2086 Jul, [facility] [id number] [place] [address] 13119- 4811 Jun, [facility] [id number] [place] [address] 14459- 6775 30 May, 2015 Diabetes type 2, controlled 250.00 and Neuropathy 355.9 [facility] [address] [place] [address] 22697- 9981 May, [facility] [address] [place] [address] 96206- 6100 Apr, Generalized anxiety disorder 300.02 and Autism spectrum disorder 299.00 [facility] [address] [place] [address] 93030- 4853 Apr, Abrasion, foot 917.0 ; Chest pain 786.50 and Back pain 724.5 [facility] [address] [place] [address] 61707- 9910 Apr, Generalized anxiety disorder 300.02 [facility] [address] [place] [address] 70181- 7459 Feb, Anxiety state, unspecified 300.00 [facility] [address], [place] [address]- 4022 Feb, Diabetes mellitus without mention of complication, type II or unspecified type, not stated as uncontrolled 250.00 ; Generalized anxiety disorder 300.02 ; Morbid obesity 278.01 ; Benign essential hypertension 401.1 ; Chronic pain 338.29 ; Screen for STD (sexually transmitted disease) V74.5 ; Dysuria 788.1 and Kelly infection of genital region 112.2 [facility] [id number] [place] [address] 26641- 7990 Feb, [facility] [id number] [place] [address] 74601- 3032 January, Generalized anxiety disorder 300.02 and Autism spectrum disorder 299.00 [facility] [id number] [place] [address] 29770- 9176 Dec, [facility] [id number] [place] [address] 27147- 3930 Dec, [facility] [id number] [place] [address] 264655- 9117 Dec, [facility] [id number] [place] [address] 75185- 7500 Nov, [facility] [address] [id number] Nov, [facility] [id number] [place] [address] 54943- 5446 Nov, [facility] [address] [place] [address] 82754- 8336 Nov, [facility] [id number] [place] [address] [id number] Nov, [facility] [id number] [place] [address] 00285- 2546 Oct, [facility] [id number] [place] [address] 55032- 6144 Jul, [facility] [place] [facility] [address] [id number] [place] [address]- 7238 Jul, [facility] [place] [facility] [address] [id number] [place] [address]- 5959 Jul, [facility] [place] [facility] [address] [id number] [place] [address]- 2353 Jul, [facility] [place] [facility] [address] [id number] [place] [address]- 0365 Jul, [facility] [place] [facility] [address] [id number] [place] [address]- 3492 Jul, [facility] [place] [facility] [address] [id number] [place] [address]- 9201 Jul, [facility] [place] [facility] [address] [id number] [place] [address]- 3016 Jul, [facility] [place] [facility] [address] [id number] [place] [address]- 6770 Jul, [facility] [place] [facility] [address] [id number] [place] [address]- 4707 Jul, [facility] [place] [facility] [address] [id number] [place] [address]- 0219 Jun, [facility] [place] [facility] [address] [id number], [place] [address]- 7119 Jun, [facility] [place] [facility] [address] [id number], [place] [address]- 7280 Jun, [facility] [place] [facility] [address] [id number] [place] [address]- 5730 Jun, [facility] [place] [facility] [address] [id number], [place] [address]- 9197 Jun, [facility] [place] [facility] [address] [id number], [place] [address]- 3550 Jun, [facility] [place] [facility] [address] [id number] [place] [address]- 4751 Jun, [facility] [place] [facility] [address] [id number] [place] [address]- 5158 May, [facility] [place] [facility] [address] [id number] [place] [address]- 2546 May, [facility] [place] [facility] [address] [id number] [place] [address]- 1976 May, [facility] [place] [facility] [address] [id number] [place] [address]- 2547 May, [facility] [place] [facility] [address] [id number] [place] [address]- 5917 May, [facility] [place] [facility] [address] [id number] [place] [address]- 6506 May, [facility] [place] [facility] [address] [id number] [place] [address]- 6103 May, [facility] [place] [facility] [address] [id number] [place] [address]- 4958 May, [facility] [place] [facility] [address] [id number] [place] [address]- 8752 Apr, [facility] [place] [facility] [address] [id number] [place] [address]- 3498 Apr, [facility] [place] [facility] [address] [id number] [place] [address]- 2541 Apr, [facility] [place] [facility] [address] [id number] [place] [address]- 2544 Apr, [facility] [place] [facility] [address] [id number] [place] [address]- 8261 Apr, [facility] [place] [facility] [address] [id number] [place] [address]- 2543 Apr, [facility] [place] [facility] [address] [id number] [place] [address]- 1925 Apr, [facility] [place] [facility] [address] [id number] [place] [address]- 0348 Apr, [facility] [place] [facility] [address] [id number] [place] [address]- 8745 Apr, [facility] [place] [facility] [address] [id number] [place] [address]- 4238 Mar, [facility] [place] [facility] [address] [id number] [place] [address]- 5578 Mar, [facility] [place] [facility] [address] [id number] [place] [address]- 1341 Mar, [facility] [place] [facility] [address] [id number] [place] [address]- 2560 Mar, [facility] [place] [facility] [address] [id number] [place] [address]- 4725 Mar, [facility] [place] [facility] [address] [id number] [place] [address]- 4257 Mar, [facility] [place] [facility] [address] [id number] [place] [address]- 0076 Feb, [facility] [place] [facility] [address] [id number] [place] [address]- 0154 Feb, [facility] [place] [facility] [address] [id number] [place] [address]- 6050 Feb, [facility] [place] [facility] [address] [id number] [place] [address]- 8076 January, [facility] [place] [facility] [address] [id number] [place] [address]- 0020 January, [facility] [place] [facility] [address] [id number] [place] [address]- 1167 January, [facility] [place] [facility] [address] [id number] [place] [address]- 1773 January, [facility] [place] [facility] [address] [id number] [place] [address]- 9779 January, [facility] [address] [id number] [place] [address]- 4051 January, [facility] [place] [facility] [address] [id number] [place] [address]- 7699 Dec, [facility] [place] [facility] [address] [id number] [place] [address]- 9417 Dec, [facility] [place] [facility] [address] [id number] [place] [address]- 3166 Dec, [facility] [place] [facility] [address] [id number] [place] [address]- 9261 Dec, [facility] [place] [facility] [address] [id number] [place] [address]- 1738 Nov, [facility] [address] [facility] [id number] [place] [address]- 7387 Nov, [facility] [place] [facility] [address] [id number] [place] [address]- 1590 Oct, [facility] [place] [facility] [address] [id number] [place] [address]- 2934 Oct, [facility] [place] [facility] [address] [facility] [id number] [place] [address]- 0916 Sep, [facility] [place] [facility] [address] [id number] [place] [address]- 9956 Sep, [facility] [place] [facility] [address] [id number] [place] [address]- 9879 Aug, [facility] [place] [facility] [address] [id number] [place] [address]- 7239 Aug, [facility] [place] [facility] [address] [id number] [place] [address]- 3179 Aug, [facility] [place] [facility] [address] [facility] [id number] [place] [address]- 5408 Jul, [facility] [place] [facility] [address] [id number] [place] [address]- 5619 Jul, [facility] [place] [facility] [address] [id number] [place] [address]- 3748 Jul, [facility] [place] [facility] [address] [id number] [place] [address]- 5108 Jul, [facility] [place] [facility] [address] [id number] [place] [address]- 1330 Jul, [facility] [place] [facility] [address] [id number] [place] [address]- 8757 May, [facility] [place] [facility] [address] [id number] [place] [address]- 0593 May, [facility] [place] [facility] [address] [id number] [place] [address]- 6008 Apr, [facility] [place] [facility] [address] [id number] [place] [address]- 6938 Apr, [facility] [place] [facility] [address] [id number] [place] [address]- 0448 Mar, [facility] [place] [facility] [address] [id number] [place] [address]- 5851 Mar, [facility] [place] [facility] [address] [id number] [place] [address]- 0337 Mar, [facility] [place] [facility] [address] [id number] [place] [address] Mar, [facility] [place] [facility] [address] [id number] [place] [address] Feb, [facility] [place] [facility] [address] [id number] [place] [address] Feb, [facility] [place] [facility] [address] [id number] [place] [address] Feb, [facility] [place] [facility] [address] [id number] [place] [address] Feb, [facility] [address] [id number] [place] [address] Feb, [facility] [address] [id number] [place] [address] January, [facility] [address] [facility] [id number] [place] [address] January, [facility] [address] [id number] [place] [address] January, [facility] [address] [id number] [place] [address] January, [facility] [address] [id number] [place] [address] Dec, [facility] [address] [id number] [place] [address] Dec, [facility] [address] [id number], [place] [address] Dec, [facility] [address] [id number] [place] [address] Dec, [facility] [place] [facility] [address] [id number], [place] [address] Nov, [facility] [address] [id number], [place] [address] Nov, [facility] [place] [facility] [address] [id number], [place] [address] Oct, [facility] [place] [facility] [address] [id number] [place] [address] Aug, [facility] [place] [facility] [address] [id number], [place] [address] Aug, [facility] [place] [facility] [address] [id number], [place] [address] Dec, [facility] [place] [facility] [address] [id number] [place] [address]- [address] 10 Dec, 2011 [facility] [address] [id number] [place] [address]- [address] 05 Dec, 2011 [facility] [place] [facility] [address] [id number] [place] [address] 26 Nov, 2011 [facility] [address] [id number] [place] [address] Nov, [facility] [place] [facility] [address] [id number] [place] [address] Oct, [facility] [address] [id number] [place] [address] Oct, [facility] [address] [id number] [place] [address] Oct, [facility] [address] [id number] [place] [address] Sep, [facility] [address] [id number] [place] [address]- [address] 24 Sep, 2011 [facility] [place] [facility] [address] [id number] [place] [address] Sep, [facility] [address] [id number] [place] [address] 17 Sep, 2011 [facility] [address] [id number] [place] [address] Sep, [facility] [address] [id number] [place] [address] Sep, [facility] [place] [facility] [address] [id number] [place] [address] Sep, [facility] [place] [facility] [address] [id number] [place] [address] 09 Sep, 2011 [facility] [place] [facility] [address] [id number] [place] [address] Jul, [facility] [place] [facility] [address] [id number] [place] [address]- [address] 15 Jul, 2011 [facility] [place] [facility] [address] [id number] [place] [address]- [address] 15 Jul, 2011 [facility] [place] [facility] [address] [id number] [place] [address] 14 Nov, 2010 [facility] [place] [facility] [address] [id number] [place] [address] 17 Aug, 2010 [facility] [place] [facility] [address] [id number] [place] [address]- [address] 17 Aug, 2010 [facility] [place] [facility] [address] [id number] [place] [address]- [address] 16 Aug, 2010 [facility] [place] [facility] [address] [id number] [place] [address]- [address] 15 Aug, 2010 [facility] [place] [facility] [address] [id number] [place] [address]- [address] 09 Aug, 2010 [facility] [place] [facility] [address] [id number] [place] [address] Jul, [facility] [place] [facility] [address] [id number] [place] [address] Jun, [facility] [place] [facility] [address] [id number] [place] [address] Jun, [facility] [place] [facility] [address] [id number], [place] [address] Sep, [facility] [place] [facility] [address] [id number] [place] [address] Aug, [facility] [place] [facility] [address] [id number] [place] [address] 09 Aug, 2009 [facility] [place] [facility] [address] [id number] [place] [address] 08 Aug, 2009 [facility] [place] [facility] [address] [id number], [place] [address] 14 Jun, 2009 [facility] [id number] [address] 14 Jun, 2009 [facility] [id number], [place] [address] 14 May, 2009 [facility] [id number], [place] [address] Apr, [facility] [id number] [place] [address] Mar, [facility] [id number] [place] [id number] January, [facility] [id number], [place] [address] Oct, IMMUNIZATIONS Vaccine Route Administration Date Status TESTOSTERONE (PT'S OWN) IM Intramuscular Jun 15, 2018 Administered SOCIAL HISTORY Never Assessed REASON FOR VISIT VIA C ER F/U-HAI smith, patient complaining of pain in his stomach PLAN OF CARE Activity Details Follow Up prn Reason: VITAL SIGNS Height 70 in 2018-06-15 Weight 331.4 lbs 2018-06-15 Temperature 98.0 degrees Fahrenheit 2018-06-15 Heart Rate 83 bpm 2018-06-15 Respiratory Rate 24 2018-06-15 Oximetry on room air:98 % 2018-06-15 BMI 47.55 kg/m2 2018-06-15 Blood pressure systolic 124 mmHg 2018-06-15 Blood pressure diastolic 78 mmHg 2018-06-15 MEDICATIONS Medication Instructions Dosage Frequency Start Date End Date Duration Status Lisinopril 20 mg Orally Once a day 1 tablet 24h Active Cetirizine HCl 10 MG Orally Once a day 1 tablet 24h 30 day(s) Active Zanaflex 4 MG Orally 2 times a day 1 tablet as needed 12h Apr, Active Fish Oil 1000 MG Orally twice a day 1 capsule 12h Active Meloxicam 7.5 MG Orally 2 times a day 1 tablet 12h Feb, 30 day( s) Active Cinnamon 500 mg Orally Once a day 2 capsules 24h Active Q12-Ehtcdr Active Hyoscyamine Sulfate 0.125 MG Orally every 4 hrs prn GI tract spasm 1 tablet as needed May, Jun, 7 days Active MetFORMIN HCl ER (MOD) 500 mg Orally 2 times a day 2 tablets 12h Active Neurontin 800 MG Orally Three times a day 1.5 tablets 8h Oct, 30 day(s) Active Pen Butterfield 32G X 4 MM use with insulin pens for injection Feb, 30 days Active Metronidazole 500 mg Orally Twice a day 1 tablet 12h May, 10 day(s) Active Test strips test blood sugar 12h January, 25 days Active Glucometer test blood sugar 12h January, lifetime Active Omeprazole 40 mg Orally Once a day 1 capsule 24h Apr, Active NovoLog Flexpen 100 UNIT/ML Subcutaneous 3 times a day 60 u 8h Feb, Active HydrOXYzine HCl 25 MG Orally three times a day as needed 1-2 tabs Nov Active Diflucan 200 MG Orally every 72 hours 1 tablet 3 days Active Depo-Testosterone 100 MG/ML Intramuscular once monthly 1 ml Mar, Active Lancets - test blood sugar h January, 25 days Active Tresiba FlexTouch 200 UNIT/ML DX- E11.65 at bedtime Inject 160 units Mar, Active Prozac 40 MG Orally Once a day 1 capsule 24h Oct, Active Topiramate 25 MG Orally Twice a day 1 tablet 12h Apr, 30 day(s ) Active One Touch/One Touch II Starter Active Amitriptyline HCl 50 mg Orally Once a day 1 tablet 24h Nov, Active Actos 45 MG Orally Once a day 1 tablet 24h Nov, 30 day(s) Active IBU 800 MG TAKE ONE TABLET BY MOUTH THREE TIMES DAILY 33 Active RESULTS No Results PROCEDURES Procedure Date Ordered Result Body Site TESTOSTERONE (PT'S OWN) Jun 15, 2018 THER/PROPH/DIAG INJ, SC/IM Jun 15, 2018 INSTRUCTIONS MEDICATIONS ADMINISTERED No Known Medications MEDICAL [...] surgery at age 1 Hospitalization History [facility] for diabetes 09/2011 Hospitalization History [facility] diabetic issues 09/2015 Hospitalization History [facility] Pneumonia 01/2016 Hospitalization History celluit[facility] of the left upper thigh-[facility] 04/2017 Hospitalization History [facility]-inpatient psych 4 day stay 2013 Hospitalization History [facility]- [facility], unsure of blood sugar level 11/20/2017
--- OUTSIDE RECORDS SUMMARY | 2018-07-05 10:38 | XMS REPORT ---
Author Author NERISSA MARTINEZ [facility] Address [address] [place] [address] Care Team Providers Care Picking Table Worker Name Role Phone NERISSA MARTINEZ Unavailable PROBLEMS Type Condition ICD9-CM Code [id number] Code Onset Dates Condition Status SNOMED Code Problem Other male erectile dysfunction N52.8 Active 217633571 Problem Diabetes type 2, controlled E11.9 Active 48807664 Problem Obesity, unspecified E66.9 Active 527703727 Problem Gastro-esophageal reflux disease with esophagitis K21.0 Active 596090272 Problem Insomnia, unspecified G47.00 Active 194558576 Problem Anxiety F41.9 Active 00566455 Problem 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 Active 07038346 Problem Hypertriglyceridemia E78.1 Active 642345509 Problem Generalized anxiety disorder F41.1 Active 98755117 Problem Chronic fatigue R53.82 Active 53830838 Problem Type 2 diabetes mellitus 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 E11.9 Active 750569782 Problem BMI 45.0-49.9, adult Z68.42 Active 895388780 Problem Other chronic pain G89.29 Active 55068698 Problem Morbid obesity due to excess calories E66.01 Active 904619978 Problem Type 2 diabetes mellitus with hyperglycemia E11.65 Active 759550743 Problem Hypertension I10 Active 77115855 Problem Diabetes type 2, uncontrolled E11.65 Active 409961177 Problem Mild episode of recurrent major depressive disorder F33.0 Active 146788913 Problem Type 2 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 Active 53533422 Problem Hypogonadism in male E29.1 Active 03217707 Problem Seasonal allergies J30.2 Active 515119766 Problem Controlled type 2 diabetes mellitus without complication, without long -term current use of insulin E11.9 Active 438920136 Problem Diabetic polyneuropathy associated with type 2 diabetes mellitus E11.42 Active 09093821 Problem Polyneuropathy G62.9 Active 25931600 Problem 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 Active 000807044 Problem nursing home 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.4 Active 030447380 Problem Diverticulitis of small intestine without perforation or abscess without bleeding K57.12 Active 26776488 Problem GERD without esophagitis K21.9 Active 465535594 Problem Type 2 diabetes mellitus with hyperglycemia E11.65 Active 133028743 ALLERGIES No Information ENCOUNTERS Encounter Location Date Diagnosis [place] [id number] [place] [address] 89247- 3569 Aug, [place] [address] 67056- 2019 Jun, [place] [address] 83704- 7780 May, Generalized abdominal pain R10.84 ; Hypogonadism in male E29.1 ; Hospital discharge follow-up Z09 and BMI 45.0-49.9, adult Z68.42 [place] [address] 74192- 0124 25 May, 2018 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 ; Generalized anxiety disorder F41.1 and BMI 45.0-49.9, adult Z68.42 [facility] [address] 90480- 6734 12 May, 2018 Uncontrolled type 2 diabetes mellitus with hyperglycemia E11.65 [place] [id number] [place] [address] 65289- 3681 May, Uncontrolled type 2 diabetes mellitus with hyperglycemia E11.65 ; BMI 45.0-49.9, adult Z68.42 and Colitis K52.9 [facility] [id number] [place] [address] 05678- 2911 May, [place] [address] 81408- 0275 May, [facility] [id number] [place] [address] 10198 -8392 Apr, Colitis K52.9 ; Abdominal discomfort R10.9 and Anxiety F41.9 [place] [address] 74065- 4753 Apr, [facility] [id number] [place] [address] 75748- 4997 Apr, Colitis K52.9 and BMI 45.0-49.9, adult Z68.42 [place] [id number] [place] [address] 73269- 3332 Apr, Diabetes type 2, uncontrolled E11.65 [place] [address] 74902- 4073 Apr, 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 ; Generalized anxiety disorder F41.1 and BMI 45.0-49.9, adult Z68.42 [place] [address] 59802- 1302 Apr, [place] [id number] [place] [address] 02402- 8950 Apr, BMI 45.0-49.9, adult Z68.42 [place] [id number] [place] [address] 65063- 5588 Apr, Candidiasis B37.9 ; Pain in right shoulder M25.511 ; Pain in left shoulder M25.512 ; Other chronic pain G89.29 and Morbid obesity due to excess calories E66.01 [place] [id number] [place] [address] 61441- 6894 Apr, Hypogonadism in male E29.1 [facility] [id number] [place] [address] 90872 -4869 Mar, Yeast dermatitis B37.2 and Sensation of foreign body in throat R09.89 [facility] [id number] [place] [address] 61998- 3273 Mar, [facility] [id number] [place] [address] 61057- 4654 Mar, Hypogonadism in male E29.1 [place] [address] 49208- 3868 Mar, Hypogonadism in male E29.1 [facility] [id number] [place] [address] 63213- 0916 Mar, [facility] [id number] [place] [address] 15279- 5950 Mar, Diabetes type 2, uncontrolled E11.65 and Hypogonadism in male E29.1 [place] [id number] [place] [address] 82938- 2153 Mar, [place] [id number] [place] [address] 28839- 0783 Feb, Diabetes type 2, controlled E11.9 ; Myalgia M79.1 and BMI 45.0-49.9, adult Z68.42 [facility] [place] [id number] [place] [address] 00378 -8250 Feb, Hematuria, unspecified type R31.9 ; Side pain R10.9 and Rash R21 [place] [id number] [place] [address] 63564- 5530 January, [place] [id number] [place] [address] 68153- 2994 January, [place] [id number] [place] [address] 55346- 8860 January, [facility] [id number] [place] [address] 76053 -3829 January, Seasonal allergies J30.2 and BMI 45.0-49.9, adult Z68.42 [place] [id number] [place] [address] 98140- 2358 January, Chronic fatigue R53.82 ; Mild episode of recurrent major depressive disorder F33.0 and Polyneuropathy G62.9 [place] [address] [address] 0162 January, Chronic fatigue R53.82 ; BMI 45.0-49.9, adult Z68.42 and Anxiety F41.9 [facility] [id number] [place] [address] 22931- 5751 January, Generalized anxiety disorder F41.1 [facility] [id number] [place] [address] 47753- 7892 Dec, 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 ; Generalized anxiety disorder F41.1 ; High risk medication use Z79.899 and BMI 45.0-49.9, adult Z68.42 [facility] [id number] [place] [address] 45352- 9761 Dec, [facility] [address] [id number] Dec, Encounter for dental examination Z01.20 [place] [address] 88441- 5415 Dec, Mild episode of recurrent major depressive disorder F33.0 ; Type 2 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 and nursing home 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.4 [facility] [id number] [place] [address] 82750- 8606 Nov, [facility] [id number] [place] [address] 68576- 0570 Nov, BMI 45.0-49.9, adult Z68.42 ; 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 and Generalized anxiety disorder F41.1 [facility] [address] [place] [address] 65637- 5352 Nov, Type 2 diabetes mellitus 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 E11.9 and nursing home 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.4 [facility] [address] [place] [id number] [place] [address] [id number] Oct, Dental examination Z01.20 and Dental caries K02.9 [facility] [id number] [place] [address] 20605- 4509 Oct, [facility] [address] [place] [address]- 0488 Oct, BMI 45.0-49.9, adult Z68.42 ; 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 and Generalized anxiety disorder F41.1 [place] [id number] [place] [address] 53966- 9622 Oct, [facility] [id number] [place] [address] 95343- 7876 Oct, [facility] [id number] [place] [address] 36810- 2743 Oct, Hypertriglyceridemia E78.1 [place] [id number] [place] [address] 93467- 5603 Oct, Hypertriglyceridemia E78.1 [facility] [id number] [place] [address] 33667- 9468 Sep, Controlled type 2 diabetes mellitus without complication, without long-term current use of insulin E11.9 [place] [id number] [place] [address] 24835- 9405 Sep, [place] [id number] [place] [address] 11125- 6449 Sep, Controlled type 2 diabetes mellitus without complication, without long-term current use of insulin E11.9 [place] [address] [address]- 3709 Sep, [place] [address] [place] [address] 50826- 3425 Sep, [facility] [address] [place] [address] 07103- 0170 Sep, BMI 45.0-49.9, adult Z68.42 ; Diabetic polyneuropathy associated with type 2 diabetes mellitus E11.42 and Chronic fatigue R53.82 [facility] [address] [address]- 0358 Sep, [facility] [address] [address]- 1538 Sep, Hypertriglyceridemia E78.1 [facility] [id number] [place] [address] 76981- 7500 Aug, [facility] [id number] [place] [address] 25988- 4872 Aug, Generalized anxiety disorder F41.1 [facility] [id number] [place] [address] 91153- 5385 Aug, [facility] [id number] [place] [address] 08708- 3605 Aug, Hypertriglyceridemia E78.1 [facility] [id number] [place] [address] 80475- 2457 Jul, [facility] [id number] [place] [address] 05916- 2795 Jul, [facility] [id number] [place] [address] 07849- 1867 Jul, Generalized anxiety disorder F41.1 ; 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 ; BMI 45.0-49.9, adult Z68.42 and Patient's noncompliance with other medical treatment and regimen Z91.19 [facility] [address] [place] [address] 44791- 9157 Jul, Diabetes type 2, uncontrolled E11.65 ; Diabetic polyneuropathy associated with type 2 diabetes mellitus E11.42 ; Abdominal pain , right upper quadrant R10.11 and Low back pain radiating to left lower extremity M54.5 [facility] [address] [address]- 7791 Jul, Generalized anxiety disorder F41.1 [facility] [address] [place] [address] 26101- 4924 Jul, [facility] [address] [address]- 6813 Jul, Hypertriglyceridemia E78.1 [facility] [address] [address]- 6359 Jul, Controlled type 2 diabetes mellitus without complication, without long-term current use of insulin E11.9 [facility] [address] [place] [address] 47546- 9375 Jun, [facility] [id number] [place] [address] 17900- 7705 Jun, Hypertriglyceridemia E78.1 [place] [id number] [place] [address] 16051- 0069 04 Jun, 2017 Controlled type 2 diabetes mellitus without complication, without long-term current use of insulin E11.9 [place] [id number] [place] [address] 88359- 5998 Jun, Generalized anxiety disorder F41.1 [place] [id number] [place] [address] 86149- 3460 Jun, Candidiasis B37.9 [facility] [id number] [place] [address] 97936- 8345 19 May, 2017 [place] [id number] [place] [address] 37288- 8717 18 May, 2017 Controlled type 2 diabetes mellitus without complication, without long-term current use of insulin E11.9 [place] [address] [place] [address] 38233- 6217 14 May, 2017 Hypertriglyceridemia E78.1 [place] [id number] [place] [address] 71472 2546 14 May, 2017 Hypertriglyceridemia E78.1 [place] [id number] [place] [address] 55780 2546 14 May, 2017 Hypertriglyceridemia E78.1 and Hypotestosteronemia E34.9 [facility] [address] [place] [address] 97278- 8756 14 May, 2017 Generalized anxiety disorder F41.1 [place] [address] [place] [address] 24857- 0724 May, [facility] [id number] [place] [address] 43585 -9417 May, Abscess and cellulitis L03.90 [facility] [address] [id number] [place] [address] [id number] Apr, [place] [address] 40675- 7434 Apr, [place] [id number] [place] [address] 11808- 9810 Apr, Dermatofibroma of back D23.5 [facility] [place] [id number] [place] [address] 04884 -0083 Apr, Muscle strain of left thigh, initial encounter S76.912A [place] [address] 92983- 5306 Apr, [place] [id number] [place] [address] 66569- 7477 Apr, Generalized anxiety disorder F41.1 [place] [id number] [place] [address] 28535- 2984 Apr, Polyneuropathy G62.9 [place] [id number] [place] [address] 97044- 7506 Apr, GERD without esophagitis K21.9 [place] [id number] [place] [address] 99924- 3087 Apr, Generalized anxiety disorder F41.1 ; Diastasis recti M62.08 and Controlled type 2 diabetes mellitus without complication, without long-term current use of insulin E11.9 [place] [address] [place] [address] 08458- 4994 Apr, Generalized anxiety disorder F41.1 ; 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 and Controlled type 2 diabetes mellitus without complication, without long-term current use of insulin E11.9 [place] [address] [address]- 0696 Mar, Generalized anxiety disorder F41.1 ; Diastasis recti M62.08 and Controlled type 2 diabetes mellitus without complication, without long-term current use of insulin E11.9 [facility] [address] [place] [address] 56818- 6737 Mar, Controlled type 2 diabetes mellitus without complication, without long-term current use of insulin E11.9 [facility] [address] [place] [address] 74023- 5816 Mar, Generalized anxiety disorder F41.1 [place] [id number] [place] [address] 12764- 5259 Mar, Generalized anxiety disorder F41.1 [facility] [id number] [place] [address] 99803- 1260 Mar, Generalized anxiety disorder F41.1 [facility] [address] [place] [address] 20182- 8476 Mar, Generalized anxiety disorder F41.1 [facility] [id number] [place] [address] 38705- 8258 Feb, Controlled type 2 diabetes mellitus without complication, without long-term current use of insulin E11.9 [facility] [address], [place] [address]- 9275 Feb, Controlled type 2 diabetes mellitus without complication, without long-term current use of insulin E11.9 and Tinea cruris B35.6 [facility] [address], [place] [address]- 5805 Feb, Diabetes type 2, controlled E11.9 [facility] [address] [place] [address] [id number] Feb, Dental examination Z01.20 [facility] [address] [place] [address] 25510- 1384 Feb, Dental examination Z01.20 [facility] [address] [place] [address] 49303- 8598 Feb, Generalized anxiety disorder F41.1 [facility] [id number] [place] [address] 86735 -3068 Feb, Muscle spasm M62.838 and Diabetes type 2, controlled E11.9 [facility] [id number] [place] [address] 47082- 0519 Feb, Type 2 diabetes mellitus with hyperglycemia E11.65 [facility] [address] [place] [id number] [place] [address] [id number] Feb, Dental examination Z01.20 [facility] [id number] [place] [address] [id number] Feb, Encounter for dental examination Z01.20 [facility] [id number] [place] [address] 49077- 6142 Feb, Diabetes type 2, controlled E11.9 [facility] [id number] [place] [address] 33495- 5044 Feb, Type 2 diabetes mellitus with hyperglycemia E11.65 [facility] [id number] [place] [address] 62380- 5688 Feb, [facility] [id number] [place] [address] 78500- 4677 Feb, Controlled type 2 diabetes mellitus without complication, without long-term current use of insulin E11.9 [facility] [id number] [place] [address] 98401- 4576 January, Candidiasis B37.9 [facility] [id number] [place] [address] 01206- 0821 January, Type 2 diabetes mellitus with hyperglycemia E11.65 ; Hypertension I10 and Anxiety F41.9 [facility] [id number] [place] [address] 06611- 8793 January, Type 2 diabetes mellitus with hyperglycemia E11.65 [facility] [id number] [place] [address] 05309- 7861 January, Controlled type 2 diabetes mellitus without complication, without long-term current use of insulin E11.9 [facility] [id number] [place] [address] 85167- 9271 January, Generalized anxiety disorder F41.1 ; 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 ; Foot callus L84 and Controlled type 2 diabetes mellitus without complication, without long-term current use of insulin E11.9 [facility] [id number] [place] [address] 75803- 9943 Dec, [facility] [address] 15255- 3425 Dec, [place] [address] 13340- 1977 Dec, Foot callus L84 and Rash R21 [place] [address] 97673- 0074 Dec, Controlled type 2 diabetes mellitus without complication, without long-term current use of insulin E11.9 [facility] [id number] [place] [address] 71135- 2170 Nov, [facility] [id number] [place] [address] 96565 -4621 Nov, Sore throat J02.9 and Strep pharyngitis J02.0 [facility] [id number] [place] [address] 26247- 2453 Nov, Generalized anxiety disorder F41.1 [facility] [id number] [place] [address] 16865- 3227 Nov, [place] [address] 30455- 4433 Nov, [facility] [id number] [place] [address] 56146- 5623 Nov, Type 2 diabetes mellitus with hyperglycemia E11.65 [place] [address] [place] [address] 18012- 6185 09 Nov, 2016 Diabetes type 2, uncontrolled E11.65 and Localized edema R60.0 [place] [id number] [place] [address] 18932- 2838 Nov, Controlled type 2 diabetes mellitus without complication, without long-term current use of insulin E11.9 [place] [address] 21379- 5911 14 Oct, 2016 Generalized anxiety disorder F41.1 and 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 [place] [address] 18860- 5031 Oct, [place] [id number] [place] [address] 06576- 0881 Oct, Type 2 diabetes mellitus with hyperglycemia E11.65 [place] [id number] [place] [address] 24568- 1444 Oct, Type 2 diabetes mellitus with hyperglycemia E11.65 and 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 [id number] [place] [address] 87483 -8886 Sep, Abdominal pain R10.9 and Diverticulitis of small intestine without perforation or abscess without bleeding K57.12 [place] [id number] [place] [address] 38455- 7903 Sep, [place] [id number] [place] [address] 19809- 0517 Sep, Diabetes type 2, controlled E11.[address] 69496- 2187 Sep, Controlled type 2 diabetes mellitus without complication, without long-term current use of insulin E11.9 [place] [id number] [place] [address] Sep, Type 2 diabetes mellitus 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 E11.9 and termite inspector 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.[address] [address] Aug, Lower abdominal pain R10.30 ; GERD without esophagitis K21.9 and Candidiasis of skin B37.[address] [address] Aug, Controlled type 2 diabetes mellitus without complication, without long-term current use of insulin E11.9 and Diabetic polyneuropathy associated with type 2 diabetes mellitus E11.42 [place] [id number] [place] [address] Jul, Kelly infection of genital region B37.49 and Diabetes type 2, controlled E11.9 [place] [id number] [place] [address] Jul, Controlled type 2 diabetes mellitus without complication, without long-term current use of insulin E11.9 ; 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 and Acute pharyngitis due to other specified organisms J02.8 [facility] [place] [id number] [place] [address] [address] -[address] Jul, Acute upper respiratory infection, unspecified J06.9 and Other viral agents as the cause of diseases classified elsewhere B97.[address] 81276- 0134 19 Jun, 2016 Generalized anxiety disorder F41.1 [facility] [id number] [place] [address] 92324- 0960 14 Jun, 2016 [facility] [id number] [place] [address] 24594- 8409 13 Jun, 2016 Diabetes type 2, controlled E11.9 and Polyneuropathy G62.9 [facility] [id number] [place] [address] 80986- 1714 28 May, 2016 [facility] [id number] [place] [address] 32889- 7625 28 May, 2016 Generalized anxiety disorder F41.1 [facility] [id number] [place] [address] 93502- 8544 15 May, 2016 Polyneuropathy G62.9 [facility] [id number] [place] [address] 78894- 9260 13 May, 2016 [facility] [id number] [place] [address] 13195- 0538 Apr, Anxiety disorder, unspecified F41.9 [facility] [id number] [place] [address] 66118- 4819 Mar, Abdominal pain, unspecified abdominal location R10.9 ; Type 2 diabetes mellitus with hyperglycemia E11.65 ; 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 [id number] [place] [address] 29784 -3877 Mar, [facility] [id number] [place] [address] 80686- 0400 Feb, Generalized anxiety disorder F41.1 [facility] [id number] [place] [address] 25844- 4059 Feb, Abdominal cramping R10.9 ; Acute bilateral low back pain without sciatica M54.5 and Malaise R53.81 [facility] [address] 78793 -0358 Feb, Candidiasis B37.9 and Costochondritis M94.0 [facility] [address] 52084 -5016 Feb, Allergic rhinitis, unspecified allergic rhinitis type J30.9 [facility] [address] 58378- 5369 Feb, Generalized anxiety disorder F41.1 [facility] [facility] [address] 96950- 4558 Feb, [facility] [address] 01218- 8460 Feb, Major depressive disorder, recurrent, moderate F33.1 [facility] [id number] [place] [address] 55957- 9784 Feb, Generalized anxiety disorder F41.1 [facility] [id number] [place] [address] 84875- 9973 January, Unspecified infectious disease B99.9 [facility] [id number] [place] [address] [id number] January, Dental examination Z01.20 [facility] [address] 81674- 4820 January, [facility] [address] 15370- 0363 January, Diabetes type 2, uncontrolled E11.65 [facility] [address] 89753 -6132 January, Wheezing R06.2 and History of pneumonia Z87.01 [facility] [id number] [place] [address] 40554- 1811 January, [facility] [id number] [place] [address] 78758- 7227 January, Depression, major, recurrent, moderate F33.1 [facility] [id number] [place] [address] 62888- 0972 January, [facility] [id number] [place] [address] 39527- 9382 January, Depression, major, recurrent, moderate F33.1 [facility] [id number] [place] [address] 06750- 3001 January, [facility] [id number] [place] [address] 85574- 3795 Dec, Depression, major, recurrent, moderate F33.1 [facility] [address] [place] [address] 19795- 4396 Dec, Dental examination Z01.20 [facility] [id number] [place] [address] [id number] Dec, Dental examination Z01.20 [facility] [id number] [place] [address] 87928- 1281 Dec, Generalized anxiety disorder F41.1 [facility] [id number] [place] [address] 94616- 3231 Dec, Generalized anxiety disorder F41.1 [facility] [id number] [place] [address] 29660- 1865 Nov, [facility] [id number] [place] [address] 59057- 4645 Nov, [facility] [address] [place] [address] 33706- 2347 Nov, Generalized anxiety disorder F41.1 [facility] [address] [id number] 24 Nov, 2015 Dental examination Z01.20 [facility] [id number] [place] [address] 03890- 1132 22 Nov, 2015 [facility] [id number] [place] [address] 59442- 2720 Nov, Generalized anxiety disorder F41.1 and 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 [facility] [id number] [place] [address] 93724- 4910 Nov, Depression, major, recurrent, moderate F33.1 [facility] [id number] [place] [address] 08675- 0542 Nov, [facility] [address] 46015- 1989 Nov, Diabetes type 2, uncontrolled E11.65 and Hypertension I10 [facility] [id number] [place] [address] [id number] 14 Nov, 2015 Dental examination Z01.20 [facility] [id number] [place] [address] 95277- 6265 03 Nov, 2015 [facility] [id number] [place] [address] 51968- 6080 Nov, Depression, major, recurrent, moderate F33.1 [facility] [id number] [place] [address] 06759 -5064 Nov, Penile abrasion S30.812A [facility] [id number] [place] [address] 05746- 4170 Oct, Generalized anxiety disorder F41.1 [facility] [id number] [place] [address] 11800- 3571 Oct, Depression, major, recurrent, moderate F33.1 [facility] [id number] [place] [address] 16349- 9219 Oct, Diabetes type 2, controlled E11.9 and Malaise R53.81 [facility] [id number] [place] [address] 94561- 3510 Oct, 2015 [facility] [address] 09192- 3592 16 Oct, 2015 [facility] [address] 65867- 7107 Oct, [facility] [address] 62382- 5951 Oct, Depression, major, recurrent, moderate F33.1 [place] [facility] [address] 55462- 6263 Oct, Generalized anxiety disorder F41.1 and 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 [facility] [facility] [address] 99273- 8973 Oct, [facility] [id number] [place] [address] 89723- 8701 Oct, Major depressive disorder, recurrent, moderate F33.1 [facility] [id number] [place] [address] 52834- 5563 Oct, [facility] [id number] [place] [address] 02386- 6240 Oct, [facility] [id number] [place] [address] 87061- 1413 Oct, Generalized anxiety disorder F41.1 [facility] [id number] [place] [address] 82300- 5600 Oct, [facility] [address] 07356- 7622 Oct, Back muscle spasm M62.830 [facility] [id number] [place] [address] 16537- 2975 Oct, Major depressive disorder, recurrent, moderate F33.1 [facility] [address] [address] 28 Sep, 2015 Back muscle spasm M62.830 ; Allergic rhinitis J30.9 and Person with feared health complaint in whom no diagnosis is made Z71.1 [facility] [address] [address]- 4299 22 Sep, 2015 Generalized anxiety disorder F41.1 [facility] [address] [address]272 15 Sep, 2015 [facility] [id number] [place] [address] 65963- 2968 15 Sep, 2015 [facility] [id number] [place] [address] 78973- 0975 13 Sep, 2015 Mood disorder F39 ; Diabetes type 2, controlled E11.9 ; Morbid obesity due to excess calories E66.01 and Edema, unspecified type R60.9 [facility] [address] [place] [address] 84322- 7046 13 Sep, 2015 Generalized anxiety disorder F41.1 [place] [address] [place] [address] 53858- 4864 Sep, [place] [facility] [address] [place] [address] 65035- 8940 07 Sep, 2015 Adjustment disorder with mixed anxiety and depressed mood F43.23 and Depression F32.9 [facility] [facility] [address] [address]- 0467 06 Sep, 2015 Generalized anxiety disorder F41.1 [facility] [id number] [place] [address] 20766- 1954 05 Sep, 2015 Generalized anxiety disorder 300.02 and Autism spectrum disorder F84.0 [facility] [id number] [place] [id number] Aug, Encounter for dental examination Z01.20 [place] [facility] [address] [address]- 7175 Aug, [facility] [address] [place] [address] 67092 -5352 Jul, Candidiasis B37.9 [facility] [address] [address]- 2274 Jul, [facility] [id number] Jul, Encounter for dental examination Z01.20 [facility] [address] [place] [address] 43033- 4573 Jul, [facility] [id number] [place] [address] 23683- 4202 Jun, [facility] [id number] [place] [address] 88397- 5276 30 May, 2015 Diabetes type 2, controlled 250.00 and Neuropathy 355.9 [facility] [address] [place] [address] 05282- 6535 May, [facility] [id number] [place] [address] 65887- 8061 Apr, Generalized anxiety disorder 300.02 and Autism spectrum disorder 299.00 [facility] [id number] [place] [address] 38935- 0548 Apr, Abrasion, foot 917.0 ; Chest pain 786.50 and Back pain 724.5 [facility] [address] [place] [address] 61369- 3706 Apr, Generalized anxiety disorder 300.02 [facility] [id number] [place] [address] 98841- 7484 Feb, Anxiety state, unspecified 300.00 [facility] [address] [place] [address] 18558- 5134 Feb, Diabetes mellitus without mention of complication, type II or unspecified type, not stated as uncontrolled 250.00 ; Generalized anxiety disorder 300.02 ; Morbid obesity 278.01 ; Benign essential hypertension 401.1 ; Chronic pain 338.29 ; Screen for STD (sexually transmitted disease) V74.5 ; Dysuria 788.1 and Kelly infection of genital region 112.2 [facility] [address] [address]- 4946 Feb, [facility] [id number] [place] [address] 99964- 5866 January, Generalized anxiety disorder 300.02 and Autism spectrum disorder 299.00 [facility] [id number] [place] [address] 20159- 7080 Dec, [facility] [id number] [place] [address] 03649- 8186 Dec, [facility] [id number] [place] [address] 89676- 7711 Dec, [facility] [id number] [place] [address] 43299- 6569 Nov, [facility] [id number] [place] [address] [id number] Nov, [facility] [id number] [place] [address] 60043- 8506 Nov, [facility] [address], [place] [address]- 6996 Nov, [facility] [id number] [place] [address] [id number] Nov, [facility] [address], [place] [address]- 2546 Oct, [facility] [id number] [place] [address] 16326 2546 Jul, [facility] [address] [address]- 0816 Jul, [facility] [id number] [place] [address] 55296- 1775 Jul, [facility] [place] [facility] [address] [id number] [place] [address]- 1005 Jul, [facility] [place] [facility] [address] [id number] [place] [address]- 4946 Jul, [facility] [place] [facility] [address] [id number] [place] [address]- 4519 Jul, [facility] [place] [facility] [address] [id number] [place] [address]- 2897 Jul, [facility] [place] [facility] [address] [id number] [place] [address]- 6422 Jul, [facility] [place] [facility] [address] [id number] [place] [address]- 5566 Jul, [facility] [place] [facility] [address] [facility] [id number] [place] [address]- 4304 Jul, [facility] [place] [facility] [address] [id number] [place] [address]- 5630 Jun, [facility] [place] [facility] [address] [id number] [place] [address]- 5533 Jun, [facility] [place] [facility] [address] [facility] [id number] [place] [address]- 8870 Jun, [facility] [place] [facility] [address] [id number], [place] [address]- 3313 Jun, [facility] [place] [facility] [address] [id number] [address]- 4056 Jun, [facility] [place] [facility] [address] [id number] [place] [address]- 2332 Jun, [facility] [place] [facility] [address] [facility] [id number] [place] [address]- 4327 Jun, [facility] [place] [facility] [address] [facility] [id number] [place] [address]- 6457 30 May, 2014 [facility] [place] [facility] [address] [id number] [place] [address]- 6479 30 May, 2013 [facility] [place] [facility] [address] [id number] [place] [address]- 8506 May, 2013 [facility] [place] [facility] [address] [id number] [place] [address]- 4766 May, 2013 [facility] [place] [facility] [address] [id number] [place] [address]- 1806 May, 2013 [facility] [place] [facility] [address] [id number] [place] [address]- 6218 May, 2013 [facility] [place] [facility] [address] [id number] [place] [address]- 2767 May, [facility] [place] [facility] [address] [id number] [place] [address]- 5376 May, [facility] [place] [facility] [address] [id number] [place] [address]- 6247 Apr, [facility] [place] [facility] [address] [id number] [place] [address]- 8769 Apr, [facility] [place] [facility] [address] [id number] [place] [address]- 1596 Apr, [facility] [place] [facility] [address] [id number] [place] [address]- 8247 Apr, [facility] [place] [facility] [address] [id number] [place] [address]- 4362 Apr, [facility] [place] [facility] [address] [id number] [place] [address]- 2544 Apr, [facility] [place] [facility] [address] [id number] [place] [address]- 9432 Apr, [facility] [place] [facility] [address] [id number] [place] [address]- 6584 Apr, [facility] [place] [facility] [address] [id number] [place] [address]- 7697 Apr, [facility] [place] [facility] [address] [id number] [place] [address]- 4255 Mar, [facility] [place] [facility] [address] [id number] [place] [address]- 1288 Mar, [facility] [place] [facility] [address] [id number] [place] [address]- 4197 Mar, [facility] [place] [facility] [address] [id number] [place] [address]- 9634 Mar, [facility] [place] [facility] [address] [id number] [place] [address]- 5290 Mar, [facility] [place] [facility] [address] [id number] [place] [address]- 3941 Mar, [facility] [place] [facility] [address] [id number] [place] [address]- 9881 Feb, [facility] [place] [facility] [address] [id number] [place] [address]- 0026 Feb, [facility] [place] [facility] [address] [id number] [place] [address]- 6456 Feb, [facility] [place] [facility] [address] [id number] [place] [address]- 0049 January, [facility] [place] [facility] [address] [id number] [place] [address]- 0047 January, [facility] [place] [facility] [address] [id number] [place] [address]- 2725 January, [facility] [place] [facility] [address] [id number] [place] [address]- 0262 January, [facility] [place] [facility] [address] [id number] [place] [address]- 1260 January, [facility] [place] [facility] [address] [id number] [place] [address]- 1113 January, [facility] [place] [facility] [address] [id number] [place] [address]- 2529 Dec, [facility] [place] [facility] [address] [id number] [place] [address]- 3808 Dec, [facility] [place] [facility] [address] [id number] [place] 5159 Dec, [facility] [place] [facility] [address] [id number] [place] [address]- 5981 Dec, [facility] [place] [facility] [address] [id number] [place] 1200 Nov, [facility] [place] [facility] [address] [id number] [place] [address]- 6491 Nov, [facility] [place] [facility] [address] [id number] [place] [address]- 7516 Oct, [facility] [place] [facility] [address] [id number] [place] [address]- 6489 Oct, [facility] [place] [facility] [address] [id number] [place] [address]- 6992 Sep, [facility] [place] [facility] [address] [id number] [place] [address]- 3056 Sep, [facility] [place] [facility] [address] [id number] [place] [address]- 0523 Aug, [facility] [place] [facility] [address] [id number] [place] [address]- 3041 Aug, [facility] [place] [facility] [address] [id number] [place] [address]- 8706 Aug, [facility] [place] [facility] [address] [id number] [place] 1933 Jul, [facility] [place] [facility] [address] [id number] [place] [address]- 2865 Jul, [facility] [place] [facility] [address] [id number] [place] [address]- 5005 Jul, [facility] [place] [facility] [address] [id number] [place] [address]- 4796 Jul, [facility] [place] [facility] [address] [id number] [place] [address]- 0649 Jul, [facility] [place] [facility] [address] [id number] [place] [address]- 4100 May, [facility] [place] [facility] [address] [id number] [place] [address]- 7461 May, [facility] [address] [id number] [place] [address]- 3220 Apr, [facility] [place] [facility] [address] [id number] [place] [address]- 0065 Apr, [facility] [address] [id number] [place] [address]- 5860 Mar, [facility] [address] [id number] [place] [address]- 2754 Mar, [facility] [place] [facility] [address] [id number] [place] [address] Mar, [facility] [place] [facility] [address] [id number] [place] [address] Mar, [facility] [place] [facility] [address] [id number] [place] [address] Feb, [facility] [place] [facility] [address] [id number] [place] [address] Feb, [facility] [place] [facility] [address] [id number] [place] [address] Feb, [facility] [place] [facility] [address] [id number] [place] [address] Feb, [facility] [place] [facility] [address] [id number] [place] [address] Feb, [facility] [place] [facility] [address] [id number] [place] [address] January, [facility] [address] [id number] [place] [address] January, [facility] [address] [id number] [place] [address] January, [facility] [address] [id number] [place] [address] January, [facility] [address] [id number] [place] [address] Dec, [facility] [address] [id number] [place] [address] Dec, [facility] [address] [id number] [place] [address] Dec, [facility] [address] [id number] [place] [address] Dec, [facility] [address] [id number] [place] [address] Nov, [facility] [address] [id number] [place] [address] Nov, [facility] [address] [id number] [place] [address] Oct, [facility] [address] [id number] [place] [address] Aug, [facility] [place] [facility] [address] [id number] [place] [address] Aug, [facility] [place] [facility] [address] [id number] [place] [address] Dec, [facility] [place] [facility] [address] [id number] [place] [address] Dec, [facility] [place] [facility] [address] [id number] [place] [address] Dec, [facility] [place] [facility] [address] [id number] [place] [address] 26 Nov, 2011 [facility] [address] [id number] [place] [address] 15 Nov, 2011 [facility] [place] [facility] [address] [id number] [place] [address] Oct, [facility] [place] [facility] [address] [id number] [place] [address] Oct, [facility] [place] [facility] [address] [id number] [place] [address] Oct, [facility] [place] [facility] [address] [id number] [place] [address] 24 Sep, 2011 [facility] [place] [facility] [address] [id number] [place] [address] 24 Sep, 2011 [facility] [address] [id number] [place] [address] 18 Sep, 2011 [facility] [place] [facility] [address] [id number] [place] [address] 17 Sep, 2011 [facility] [place] [facility] [address] [id number] [place] [address] Sep, [facility] [place] [facility] [address] [id number] [place] [address] Sep, [facility] [place] [facility] [address] [id number] [place] [address] Sep, [facility] [place] [facility] [address] [id number] [place] [address] 09 Sep, 2011 [facility] [place] [facility] [address] [id number] [place] [address] Jul, [facility] [place] [facility] [address] [id number] [place] [address] 15 Jul, 2011 [facility] [place] [facility] [address] [id number] [place] [address] 15 Jul, 2011 [facility] [address] [id number] [place] [address] 14 Nov, 2010 [facility] [place] [facility] [address] [id number] [place] [address] 17 Aug, 2010 [facility] [place] [facility] [address] [id number] [place] [address] 17 Aug, 2010 [facility] [place] [facility] [address] [id number] [place] [address] 16 Aug, 2010 [facility] [place] [facility] [address] [id number] [place] [address] 15 Aug, 2010 [facility] [place] [facility] [address] [id number] [place] [address] 09 Aug, 2010 [facility] [place] [facility] [address] [id number] [place] [address] Jul, [facility] [place] [facility] [address] [id number], [place] [address] 12 Jun, 2010 [facility] [place] [facility] [address] [id number], [place] [address] Jun, [facility] [place] [facility] [address] [id number], [place] [address] Sep, [facility] [place] [facility] [address] [id number], [place] [address] 28 Aug, 2009 [facility] [place] [facility] [address] [id number], [place] [address] 09 Aug, 2009 [facility] [place] [facility] [address] [id number], [place] [address] 08 Aug, 2009 [facility] [place] [facility] [address] [id number], [place] [address] 14 Jun, 2009 [facility] [place] [facility] [address] [id number], [place] [address] 14 Jun, 2009 [facility] [place] [facility] [address] [facility] [id number] [place] [address] 14 May, 2009 [facility] [address] [facility] [id number], [place] [address] Apr, [facility] [address] [facility] [id number], [place] [address] Mar, [facility] [address] [facility] [id number], [place] [address] January, [facility] [address] [facility] [id number], [place] [address] Oct, IMMUNIZATIONS No Known Immunizations SOCIAL HISTORY Never Assessed REASON FOR VISIT Refill request PLAN OF CARE VITAL SIGNS MEDICATIONS Medication Instructions Dosage Frequency Start Date End Date Duration Status Metronidazole 500 mg Orally Twice a day 1 tablet 12h May, 10 day(s) Active Acidophilus 100 mg Orally 2 times a day 1 capsule 12h May, Active RESULTS No Results PROCEDURES No Known [...] surgery at age 1 Hospitalization History [facility] for diabetes 09/2011 Hospitalization History [facility] diabetic issues 09/2015 Hospitalization History [facility] Pneumonia 01/2016 Hospitalization History [facility] left upper thigh[facility] Hospital[facility]- Shaking, unsure of blood sugar level 11/20/2017
--- OUTSIDE RECORDS SUMMARY | 2018-07-05 10:39 | XMS REPORT ---
Author Author NERISSA MARTINEZ [facility] Address [address] [place] [address] Care Team Providers Care Dish Person Name Role Phone NERISSA MARTINEZ Unavailable PROBLEMS Type Condition ICD9-CM Code UVP14-VO Code Onset Dates Condition Status SNOMED Code Problem Other male erectile dysfunction N52.8 Active 477305389 Problem Diabetes type 2, controlled E11.9 Active 63793684 Problem Obesity, unspecified E66.9 Active 295381972 Problem Gastro-esophageal reflux disease with esophagitis K21.0 Active 654264297 Problem Insomnia, unspecified G47.00 Active 999255780 Problem Anxiety F41.9 Active 11467911 Problem 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 Active 78560229 Problem Hypertriglyceridemia E78.1 Active 115140088 Problem Generalized anxiety disorder F41.1 Active 67681113 Problem Chronic fatigue R53.82 Active 43330480 Problem Type 2 diabetes mellitus 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 E11.9 Active 377490618 Problem BMI 45.0-49.9, adult Z68.42 Active 716022135 Problem Other chronic pain G89.29 Active 22229103 Problem Morbid obesity due to excess calories E66.01 Active 543079422 Problem Type 2 diabetes mellitus with hyperglycemia E11.65 Active 814313039 Problem Hypertension I10 Active 83076550 Problem Diabetes type 2, uncontrolled E11.65 Active 970800068 Problem Mild episode of recurrent major depressive disorder F33.0 Active 246155575 Problem Type 2 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 Active 21109381 Problem Hypogonadism in male E29.1 Active 15263210 Problem Seasonal allergies J30.2 Active 680320927 Problem Controlled type 2 diabetes mellitus without complication, without long -term current use of insulin E11.9 Active 815070043 Problem Diabetic polyneuropathy associated with type 2 diabetes mellitus E11.42 Active 05966382 Problem Polyneuropathy G62.9 Active 92814087 Problem 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 Active 903752325 Problem detention 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.4 Active 019088738 Problem Diverticulitis of small intestine without perforation or abscess without bleeding K57.12 Active 73857996 Problem GERD without esophagitis K21.9 Active 096592390 Problem Type 2 diabetes mellitus with hyperglycemia E11.65 Active 702645297 ALLERGIES Substance Reaction Event Type Date Status Zoloft hives adverse reaction Drug Allergy May, Active Wellbutrin "out of it" Drug Allergy May, Active Clindamycin HCl itching Drug Allergy May, Active BuSpar local swelling Drug Allergy May, Active ENCOUNTERS Encounter Location Date Diagnosis [place] [id number] [place] [address] 16320- 0669 Aug, [place] [address] 50614- 9783 Jun, [place] [id number] [place] [address] 22008- 4705 May, Generalized abdominal pain R10.84 ; Hypogonadism in male E29.1 ; Hospital discharge follow-up Z09 and BMI 45.0-49.9, adult Z68.42 [facility] [id number] [place] [address] 85617- 9981 May, 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 ; Generalized anxiety disorder F41.1 and BMI 45.0-49.9, adult Z68.42 [facility] [id number] [place] [address] 39112- 3997 May, Uncontrolled type 2 diabetes mellitus with hyperglycemia E11.65 [facility] [id number] [place] [address] 64376- 2869 May, Uncontrolled type 2 diabetes mellitus with hyperglycemia E11.65 ; BMI 45.0-49.9, adult Z68.42 and Colitis K52.9 [place] [id number] [place] [address] 58289- 8746 May, [facility] [id number] [place] [address] 57569- 1212 May, [facility] [id number] [place] [address] 32321 -1349 Apr, Colitis K52.9 ; Abdominal discomfort R10.9 and Anxiety F41.9 [place] [address] 88508- 7257 Apr, [place] [address] 89411- 2089 Apr, Colitis K52.9 and BMI 45.0-49.9, adult Z68.42 [place] [address] 84903- 3854 Apr, Diabetes type 2, uncontrolled E11.65 [place] [address] 03685- 8253 Apr, 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 ; Generalized anxiety disorder F41.1 and BMI 45.0-49.9, adult Z68.42 [place] [address] 83131- 9409 Apr, [place] [address] 81093- 4219 Apr, BMI 45.0-49.9, adult Z68.42 [place] [address] 83947- 6372 Apr, Candidiasis B37.9 ; Pain in right shoulder M25.511 ; Pain in left shoulder M25.512 ; Other chronic pain G89.29 and Morbid obesity due to excess calories E66.01 [place] [id number] [place] [address] 41340- 8231 Apr, Hypogonadism in male E29.1 [facility] [address] 67980 -2233 Mar, Yeast dermatitis B37.2 and Sensation of foreign body in throat R09.89 [place] [address] 02406- 5797 Mar, [facility] [address] [address]- 6223 Mar, Hypogonadism in male E29.1 [facility] [id number] [place] [address] 99277- 1482 Mar, Hypogonadism in male E29.1 [facility] [id number] [place] [address] 40630- 8838 Mar, [facility] [id number] [place] [address] 51695- 8342 Mar, Diabetes type 2, uncontrolled E11.65 and Hypogonadism in male E29.1 [place] [id number] [place] [address] 05023- 8437 Mar, [place] [id number] [place] [address] 67521- 2994 Feb, Diabetes type 2, controlled E11.9 ; Myalgia M79.1 and BMI 45.0-49.9, adult Z68.42 [facility] [id number] [place] [address] 51358 -7656 Feb, Hematuria, unspecified type R31.9 ; Side pain R10.9 and Rash R21 [place] [id number] [place] [address] 20842- 6536 January, [place] [id number] [place] [address] 19605- 6346 January, [facility] [id number] [place] [address] 00089- 2333 January, [facility] [id number] [place] [address] 31147 -7101 January, Seasonal allergies J30.2 and BMI 45.0-49.9, adult Z68.42 [facility] [address], [place] [address]- 5480 January, Chronic fatigue R53.82 ; Mild episode of recurrent major depressive disorder F33.0 and Polyneuropathy G62.9 [place] [address] [place] [address] 20298- 3315 January, Chronic fatigue R53.82 ; BMI 45.0-49.9, adult Z68.42 and Anxiety F41.9 [place] [id number] [place] [address] 51548- 8881 January, Generalized anxiety disorder F41.1 [place] [id number] [place] [address] 08582- 6753 Dec, 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 ; Generalized anxiety disorder F41.1 ; High risk medication use Z79.899 and BMI 45.0-49.9, adult Z68.42 [place] [id number] [place] [address] 95583- 2579 Dec, [facility] [address] [id number] [place] [address] [id number] Dec, Encounter for dental examination Z01.20 [place] [id number] [place] [address] 63477- 3024 Dec, Mild episode of recurrent major depressive disorder F33.0 ; Type 2 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 and improvement leader 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.4 [place] [address], [place] [address]- 3372 Nov, [place] [id number] [place] [address] 02592- 5876 Nov, BMI 45.0-49.9, adult Z68.42 ; 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 and Generalized anxiety disorder F41.1 [place] [id number] [place] [address] 14086- 0129 Nov, Type 2 diabetes mellitus 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 E11.9 and improvement leader 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.4 [facility] [address] [place] [address] [id number] Oct, Dental examination Z01.20 and Dental caries K02.9 [facility] [id number] [place] [address] 94031- 8980 Oct, [facility] [id number] [place] [address] 56366- 4579 Oct, BMI 45.0-49.9, adult Z68.42 ; 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 and Generalized anxiety disorder F41.1 [place] [id number] [place] [address] 16365- 3333 Oct, [facility] [id number] [place] [address] 72427- 1694 Oct, [place] [id number] [place] [address] 87674- 5289 Oct, Hypertriglyceridemia E78.1 [place] [id number] [place] [address] 06045- 4911 Oct, Hypertriglyceridemia E78.1 [place] [id number] [place] [address] 17370- 9065 Sep, Controlled type 2 diabetes mellitus without complication, without long-term current use of insulin E11.9 [place] [address] [place] [address] 65449- 1225 Sep, [place] [id number] [place] [address] 52951- 9639 Sep, Controlled type 2 diabetes mellitus without complication, without long-term current use of insulin E11.9 [facility] [address] [place] [address] 65110- 9577 Sep, [place] [id number] [place] [address] 85311- 9120 Sep, [facility] [id number] [place] [address] 17647- 6823 Sep, BMI 45.0-49.9, adult Z68.42 ; Diabetic polyneuropathy associated with type 2 diabetes mellitus E11.42 and Chronic fatigue R53.82 [facility] [address], [place] [address]- 7793 Sep, [facility] [id number] [place] [address] 94114- 0822 Sep, Hypertriglyceridemia E78.1 [facility] [id number] [place] [address] 22618- 1679 Aug, [facility] [id number] [place] [address] 23871- 8610 Aug, Generalized anxiety disorder F41.1 [place] [id number] [place] [address] 20652- 0275 Aug, [place] [id number] [place] [address] 76704- 7556 Aug, Hypertriglyceridemia E78.1 [place] [id number] [place] [address] 47956- 6701 Jul, [facility] [id number] [place] [address] 96629- 2051 Jul, [place] [id number] [place] [address] 01099- 2830 Jul, Generalized anxiety disorder F41.1 ; 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 ; BMI 45.0-49.9, adult Z68.42 and Patient's noncompliance with other medical treatment and regimen Z91.19 [place] [address] [place] [address] 93825- 0221 Jul, Diabetes type 2, uncontrolled E11.65 ; Diabetic polyneuropathy associated with type 2 diabetes mellitus E11.42 ; Abdominal pain , right upper quadrant R10.11 and Low back pain radiating to left lower extremity M54.5 [facility] [address] [place] [address] 30392- 2409 Jul, Generalized anxiety disorder F41.1 [place] [id number] [place] [address] 73363- 1206 Jul, [facility] [id number] [place] [address] 84242- 1419 Jul, Hypertriglyceridemia E78.1 [facility] [id number] [place] [address] 49123- 4762 Jul, Controlled type 2 diabetes mellitus without complication, without long-term current use of insulin E11.9 [place] [id number] [place] [address] 98766- 2649 Jun, [facility] [id number] [place] [address] 44917- 3378 Jun, Hypertriglyceridemia E78.1 [place] [id number] [place] [address] 80332- 6979 Jun, Controlled type 2 diabetes mellitus without complication, without long-term current use of insulin E11.9 [place] [address] 91346- 0992 Jun, Generalized anxiety disorder F41.1 [place] [id number] [place] [address] 98811- 5506 Jun, Candidiasis B37.9 [place] [id number] [place] [address] 99951- 3489 May, [place] [id number] [place] [address] 88759- 1840 18 May, 2017 Controlled type 2 diabetes mellitus without complication, without long-term current use of insulin E11.9 [place] [id number] [place] [address] 17975- 4303 14 May, 2017 Hypertriglyceridemia E78.1 [place] [address] 76917- 4965 14 May, 2017 Hypertriglyceridemia E78.1 [place] [id number] [place] [address] 26838- 4949 14 May, 2017 Hypertriglyceridemia E78.1 and Hypotestosteronemia E34.9 [place] [id number] [place] [address] 69900- 0723 14 May, 2017 Generalized anxiety disorder F41.1 [place] [id number] [place] [address] 01128- 7137 05 May, 2017 [facility] [address] 55397 -3157 May, Abscess and cellulitis L03.90 [facility] [address] [id number] Apr, [place] [address] 81818- 8130 Apr, [place] [id number] [place] [address] 01524- 6045 Apr, Dermatofibroma of back D23.5 [facility] [address] [place] [id number] [place] [address] 81866 -3969 Apr, Muscle strain of left thigh, initial encounter S76.912A [place] [id number] [place] [address] 10581- 4860 Apr, [place] [id number] [place] [address] 57879- 8251 Apr, Generalized anxiety disorder F41.1 [facility] [place] [id number] [place] [address] 92763- 1348 Apr, Polyneuropathy G62.9 [place] [place] [id number] [place] [address] 99697- 9809 07 Apr, 2017 GERD without esophagitis K21.9 [place] [id number] [place] [address] 41919- 6202 Apr, Generalized anxiety disorder F41.1 ; Diastasis recti M62.08 and Controlled type 2 diabetes mellitus without complication, without long-term current use of insulin E11.9 [place] [address] [place] [address] [place] [address]- 1956 Apr, Generalized anxiety disorder F41.1 ; 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 and Controlled type 2 diabetes mellitus without complication, without long-term current use of insulin E11.9 [facility] [id number] [place] [address] 63803- 8771 Mar, Generalized anxiety disorder F41.1 ; Diastasis recti M62.08 and Controlled type 2 diabetes mellitus without complication, without long-term current use of insulin E11.9 [facility] [id number] [place] [address] 76830- 6031 Mar, Controlled type 2 diabetes mellitus without complication, without long-term current use of insulin E11.9 [facility] [id number] [place] [address] 81874- 9065 Mar, Generalized anxiety disorder F41.1 [place] [id number] [place] [address] 76817- 1695 Mar, Generalized anxiety disorder F41.1 [facility] [id number] [place] [address] 89526- 4840 Mar, Generalized anxiety disorder F41.1 [facility] [id number] [place] [address] 08803- 2096 Mar, Generalized anxiety disorder F41.1 [facility] [id number] [place] [address] 46302- 9154 Feb, Controlled type 2 diabetes mellitus without complication, without long-term current use of insulin E11.9 [facility] [address] [place] [address] 13545- 9256 Feb, Controlled type 2 diabetes mellitus without complication, without long-term current use of insulin E11.9 and Tinea cruris B35.6 [facility] [address], [place] [address]- 9912 Feb, Diabetes type 2, controlled E11.9 [facility] [address] [place] [address] [id number] Feb, Dental examination Z01.20 [facility] [address] [place] [address] 42009- 9595 Feb, Dental examination Z01.20 [facility] [address] [place] [address] 19492- 9086 Feb, Generalized anxiety disorder F41.1 [facility] [id number] [place] [address] 90848 -1331 Feb, Muscle spasm M62.838 and Diabetes type 2, controlled E11.9 [facility] [address] [place] [address] 16884- 0916 Feb, Type 2 diabetes mellitus with hyperglycemia E11.65 [facility] [id number] [place] [address] [id number] Feb, Dental examination Z01.20 [facility] [id number] [place] [address] [id number] Feb, Encounter for dental examination Z01.20 [facility] [address] [place] [address] 59473- 4977 Feb, Diabetes type 2, controlled E11.9 [facility] [id number] [place] [address] 13548- 3282 Feb, Type 2 diabetes mellitus with hyperglycemia E11.65 [facility] [id number] [place] [address] 94047- 8632 Feb, [facility] [id number] [place] [address] 25902- 9229 Feb, Controlled type 2 diabetes mellitus without complication, without long-term current use of insulin E11.9 [facility] [address] [place] [address] 61684- 7587 January, Candidiasis B37.9 [facility] [address] [place] [address] 52720- 4552 January, Type 2 diabetes mellitus with hyperglycemia E11.65 ; Hypertension I10 and Anxiety F41.9 [facility] [address] 20049- 8255 January, Type 2 diabetes mellitus with hyperglycemia E11.65 [place] [address] 66568- 2018 January, Controlled type 2 diabetes mellitus without complication, without long-term current use of insulin E11.9 [place] [address] 81324- 6834 January, Generalized anxiety disorder F41.1 ; 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 ; Foot callus L84 and Controlled type 2 diabetes mellitus without complication, without long-term current use of insulin E11.9 [place] [address] 32549- 2371 Dec, [place] [address] 39831- 5339 Dec, [place] [address] 55426- 5740 Dec, Foot callus L84 and Rash R21 [address] 14137- 1129 Dec, Controlled type 2 diabetes mellitus without complication, without long-term current use of insulin E11.9 [place] [address] 51282- 8594 Nov, [facility] [address] 42514 -0359 Nov, Sore throat J02.9 and Strep pharyngitis J02.0 [place] [address] 52954- 5648 Nov, Generalized anxiety disorder F41.1 [place] [address] 70706- 2698 Nov, [place] [address] 76731- 2180 Nov, [place] [id number] [place] [address] 72714- 1077 Nov, Type 2 diabetes mellitus with hyperglycemia E11.65 [facility] [id number] [place] [address] 22437- 5163 Nov, Diabetes type 2, uncontrolled E11.65 and Localized edema R60.0 [place] [id number] [place] [address] 70518- 0794 Nov, Controlled type 2 diabetes mellitus without complication, without long-term current use of insulin E11.9 [place] [id number] [place] [address] 30583- 4139 Oct, Generalized anxiety disorder F41.1 and 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 [place] [id number] [place] [address] 36219- 4239 Oct, [place] [id number] [place] [address] 13080- 9462 Oct, Type 2 diabetes mellitus with hyperglycemia E11.65 [place] [id number] [place] [address] 92770- 4485 Oct, Type 2 diabetes mellitus with hyperglycemia E11.65 and improvement leader 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.4 [place] [id number] [place] [address] 16866- 2967 Oct, [facility] [id number] [place] [address] 83668- 7932 Oct, [facility] [address] [place] [address] [id number] Oct, Encounter for dental examination Z01.20 [facility] [id number] [place] [address] 76134- 0618 Sep, [place] [address] [place] [address] 23615- 7172 23 [place], 2017 Diabetes type 2, controlled E11.9 [facility] [place] [address], [place] [address] -6046 Sep, Abdominal pain R10.9 and Diverticulitis of small intestine without perforation or abscess without bleeding K57.12 [place] [address], [place] [address]- 0396 Sep, [place] [id number] [place] [address] 00464- 8815 Sep, Diabetes type 2, controlled E11.9 [place] [id number] [place] [address] 84182- 9125 Sep, Controlled type 2 diabetes mellitus without complication, without long-term current use of insulin E11.9 [place] [address] [place] [id number] [place] [address] [phone] Sep, Type 2 diabetes mellitus 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 E11.9 and improvement leader 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.4 [facility] [place] [address] [place] [id number] [place] [id number] Aug, Lower abdominal pain R10.30 ; GERD without esophagitis K21.9 and Candidiasis of skin B37.2 [place] [address] [place] [id number] [place] [address] [phone] Aug, Controlled type 2 diabetes mellitus without complication, without long-term current use of insulin E11.9 and Diabetic polyneuropathy associated with type 2 diabetes mellitus E11.42 [facility] [place] [address] [id number] [place] [address] [id number] [phone] Jul, Kelly infection of genital region B37.49 and Diabetes type 2, controlled E11.9 [place] [address] [place] [id number] [place] [address] [phone] Jul, Controlled type 2 diabetes mellitus without complication, without long-term current use of insulin E11.9 ; 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 [place] [id number] [place] [address] 40576 -8097 Jul, Acute upper respiratory infection, unspecified J06.9 and Other viral agents as the cause of diseases classified elsewhere B97.89 [place] [id number] [place] [address] 40652- 0585 Jun, Generalized anxiety disorder F41.1 [place] [id number] [place] [address] 91283- 7964 14 Jun, 2016 [place] [address] 09461- 9945 Jun, Diabetes type 2, controlled E11.9 and Polyneuropathy G62.9 [place] [id number] [place] [address] 23550- 9081 May, [place] [id number] [place] [address] 33425- 8068 May, Generalized anxiety disorder F41.1 [place] [id number] [place] [address] 31806- 9680 15 May, 2016 Polyneuropathy G62.9 [place] [id number] [place] [address] 28003- 3710 May, [place] [id number] [place] [address] 88943- 4747 Apr, Anxiety disorder, unspecified F41.9 [place] [id number] [place] [address] 95318- 0457 Mar, Abdominal pain, unspecified abdominal location R10.9 ; Type 2 diabetes mellitus with hyperglycemia E11.65 ; improvement leader 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.4 and Diabetic polyneuropathy associated with type 2 diabetes mellitus E11.42 [place] [id number] [place] [address] 58831- 5200 Mar, Generalized anxiety disorder F41.1 [place] [id number] [place] [address] 93335- 3316 Mar, Generalized abdominal pain R10.84 and Other male erectile dysfunction N52.8 [facility] [id number] [place] [address] 68545 -2360 Mar, [facility] [address] 94924- 9980 Feb, Generalized anxiety disorder F41.1 [facility] [address] 30817- 8660 Feb, Abdominal cramping R10.9 ; Acute bilateral low back pain without sciatica M54.5 and Malaise R53.81 [facility] [address] 67375 -9893 Feb, Candidiasis B37.9 and Costochondritis M94.0 [facility] [address] 64280 -5830 Feb, Allergic rhinitis, unspecified allergic rhinitis type J30.9 [facility] [id number] [place] [address] 18158- 9659 Feb, Generalized anxiety disorder F41.1 [facility] [address] 10862- 2067 Feb, [facility] [id number] [place] [address] 34808- 8584 Feb, Major depressive disorder, recurrent, moderate F33.1 [facility] [id number] [place] [address] 27480- 3291 Feb, Generalized anxiety disorder F41.1 [facility] [id number] [place] [address] 48391- 0065 January, Unspecified infectious disease B99.9 [facility] [address] [id number] [place] [address] [id number] January, Dental examination Z01.20 [facility] [id number] [place] [address] 10268- 6153 January, [facility] [id number] [place] [address] 63690- 1638 16 Jan, 2016 Diabetes type [address], [address] [facility] [id number] [place] [address] 32055 -0079 January, Wheezing R06.2 and History of pneumonia Z87.01 [facility] [id number] [place] [address] 72478- 0924 January, [facility] [id number] [place] [address] 87282- 0858 January, Depression, major, recurrent, moderate F33.1 [facility] [id number] [place] [address] 78303- 7198 January, [facility] [id number] [place] [address] 84156- 4452 January, Depression, major, recurrent, moderate F33.1 [facility] [id number] [place] [address] 54394- 8930 January, [facility] [id number] [place] [address] 97203- 8033 Dec, Depression, major, recurrent, moderate F33.1 [facility] [id number] [place] [address] 26472- 9470 Dec, Dental examination Z01.20 [facility] [id number] [place] [address] [id number] Dec, Dental examination Z01.20 [facility] [id number] [place] [address] 72633- 6951 Dec, Generalized anxiety disorder F41.1 [facility] [id number] [place] [address] 56351- 9041 Dec, Generalized anxiety disorder F41.1 [facility] [id number] [place] [address] 43267- 1445 Nov, [facility] [address] [place] [address]- 5938 Nov, [facility] [id number] [place] [address] 72923- 1776 Nov, Generalized anxiety disorder F41.1 [facility] [id number] [place] [address] [id number] Nov, Dental examination Z01.20 [facility] [address] 71592- 8828 Nov, [facility] [id number] [place] [address] 95198- 0131 Nov, Generalized anxiety disorder F41.1 and 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 [facility] [address] 79183- 7065 Nov, Depression, major, recurrent, moderate F33.1 [facility] [id number] [place] [address] 53555- 8187 Nov, [facility] [id number] [place] [address] 97795- 5008 Nov, Diabetes type 2, uncontrolled E11.65 and Hypertension I10 [facility] [id number] [place] [address] [id number] Nov, Dental examination Z01.20 [facility] [id number] [place] [address] 56580- 6873 Nov, [facility] [id number] [place] [address] 70205- 7049 Nov, Depression, major, recurrent, moderate F33.[address] [facility] [id number] [place] [address] 76329 -4151 Nov, Penile abrasion S30.812A [facility] [id number] [place] [address] 89973- 4110 Oct, Generalized anxiety disorder F41.1 [facility] [id number] [place] [address] 97911- 1711 Oct, Depression, major, recurrent, moderate F33.1 [facility] [id number] [place] [address] 34442- 7546 Oct, Diabetes type 2, controlled E11.9 and Malaise R53.81 [facility] [id number] [place] [address] 66098- 5396 Oct, [facility] [id number] [place] [address] 39530- 5135 Oct, 2015 [facility] [id number] [place] [address] 58280- 8846 Oct, 2015 [facility] [id number] [place] [address] 22777- 2520 Oct, Depression, major, recurrent, moderate F33.1 [facility] [id number] [place] [address] 56771- 4841 Oct, Generalized anxiety disorder F41.1 and 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 [facility] [id number] [place] [address] 94592- 7321 Oct, [facility] [id number] [place] [address] 50733- 3651 Oct, Major depressive disorder, recurrent, moderate F33.1 [facility] [id number] [place] [address] 98619- 4680 Oct, [facility] [id number] [place] [address] 01388- 6456 Oct, [facility] [id number] [place] [address] 06513- 2453 Oct, Generalized anxiety disorder F41.1 [facility] [id number] [place] [address] 30157- 4254 Oct, [facility] [id number] [place] [address] 38289- 3200 04 Oct, 2015 Back muscle spasm M62.830 [facility] [id number] [place] [address] 77516- 7280 04 Oct, 2015 Major depressive disorder, recurrent, moderate F33.1 [facility] IN [facility] [id number] [place] [address] 30035 -6526 28 Sep, 2015 Back muscle spasm M62.830 ; Allergic rhinitis J30.9 and Person with feared health complaint in whom no diagnosis is made Z71.1 [facility] [id number] [place] [address] 11146- 8532 22 Sep, 2015 Generalized anxiety disorder F41.1 [facility] [id number] [place] [address] 29760 -8728 15 Sep, 2015 [place] [id number] [place] [address] 57092- 1773 Sep, [facility] [id number] [place] [address] 16277- 6879 13 Sep, 2015 Mood disorder F39 ; Diabetes type 2, controlled E11.9 ; Morbid obesity due to excess calories E66.01 and Edema, unspecified type R60.9 [place] [id number] [place] [address] 51509- 0122 13 Sep, 2015 Generalized anxiety disorder F41.1 [place] [id number] [place] [address] 85852- 4237 11 Sep, 2015 [place] [id number] [place] [address] 53120- 8279 07 Sep, 2015 Adjustment disorder with mixed anxiety and depressed mood F43.23 and Depression F32.9 [place] [id number] [place] [address] 80767- 9121 06 Sep, 2015 Generalized anxiety disorder F41.1 [place] [id number] [place] [address] 05538- 9017 05 Sep, 2015 Generalized anxiety disorder 300.02 and Autism spectrum disorder F84.0 [facility] [address] [facility] [address] [id number] [id number] Aug, Encounter for dental examination Z01.20 [facility] [address] [address]- 1097 16 Aug, 2015 [facility] [id number] [place] [address] 73917 -2978 Jul, Candidiasis B37.9 [facility] [id number] [place] [address] 01813- 0521 13 Jul, 2015 [facility] [address] [place] [address] AVE [id number] [id number] Jul, Encounter for dental examination Z01.20 [facility] [id number] [place] [address] 19805- 9136 Jul, [facility] [id number] [place] [address] 13397- 5324 Jun, [facility] [id number] [place] [address] 59687- 3699 30 May, 2015 Diabetes type 2, controlled 250.00 and Neuropathy 355.9 [facility] [id number] [place] [address] 78416- 1393 May, [facility] [id number] [place] [address] 03025- 3371 Apr, Generalized anxiety disorder 300.02 and Autism spectrum disorder 299.00 [facility] [id number] [place] [address] 53899- 0315 Apr, Abrasion, foot 917.0 ; Chest pain 786.50 and Back pain 724.5 [facility] [id number] [place] [address] 31036- 7858 Apr, Generalized anxiety disorder 300.02 [facility] [id number] [place] [address] 94626- 0524 Feb, Anxiety state, unspecified 300.00 [facility] [address] [address]- 7840 Feb, Diabetes mellitus without mention of complication, type II or unspecified type, not stated as uncontrolled 250.00 ; Generalized anxiety disorder 300.02 ; Morbid obesity 278.01 ; Benign essential hypertension 401.1 ; Chronic pain 338.29 ; Screen for STD (sexually transmitted disease) V74.5 ; Dysuria 788.1 and Kelly infection of genital region 112.2 [facility] [id number] [place] [address] 59282- 3076 Feb, [facility] [id number] [place] [address] 14079- 0556 January, Generalized anxiety disorder 300.02 and Autism spectrum disorder 299.00 [facility] [id number] [place] [address] 98426- 2586 Dec, [facility] [id number] [place] [address] 99920- 8426 Dec, [facility] [id number] [place] [address] 76884- 5940 Dec, [facility] [id number] [place] [address] 70044- 2536 Nov, [facility] [address] [id number] Nov, [facility] [id number] [place] [address] 27014- 1306 Nov, [facility] [id number] [place] [address] 93334- 2546 Nov, [facility] [id number] [place] [address] [id number] Nov, [facility] [id number] [place] [address] 98256- 2546 Oct, [facility] [id number] [place] [address] 50219- 2394 Jul, [facility] [place] [facility] [address] [id number] [place] [address]- 3836 Jul, [facility] [place] [facility] [address] [id number] [place] [address]- 8773 Jul, [facility] [place] [facility] [address] [id number] [place] [address]- 5027 Jul, [facility] [place] [facility] [address] [id number] [place] [address]- 8846 Jul, [facility] [place] [facility] [address] [id number] [place] [address]- 2846 Jul, [facility] [place] [facility] [address] [id number] [place] [address]- 6767 Jul, [facility] [place] [facility] [address] [id number] [place] [address]- 4839 Jul, [facility] [place] [facility] [address] [id number] [place] [address]- 1691 Jul, [facility] [place] [facility] [address] [id number] [place] [address]- 1936 Jul, [facility] [place] [facility] [address] [id number] [place] [address]- 8307 Jun, [facility] [place] [facility] [address] [id number], [place] [address]- 3097 Jun, [facility] [place] [facility] [address] [id number], [place] [address]- 2437 Jun, [facility] [place] [facility] [address] [id number] [place] [address]- 1232 Jun, [facility] [place] [facility] [address] [id number], [place] [address]- 0602 Jun, [facility] [place] [facility] [address] [id number], [place] [address]- 9564 Jun, [facility] [place] [facility] [address] [id number] [place] [address]- 7532 Jun, [facility] [place] [facility] [address] [id number] [place] [address]- 9836 30 May, 2013 [facility] [place] [facility] [address] [id number] [place] [address] 2546 May, [facility] [place] [facility] [address] [id number] [place] [address] 2546 May, [facility] [place] [facility] [address] [id number] [place] [address] 2546 May, [facility] [place] [facility] [address] [id number] [place] [address]- 7717 May, [facility] [place] [facility] [address] [id number] [place] [address]- 2847 May, [facility] [place] [facility] [address] [id number] [place] [address]- 9802 May, [facility] [place] [facility] [address] [id number] [place] [address]- 0671 May, [facility] [place] [facility] [address] [id number] [place] [address]- 4343 Apr, [facility] [place] [facility] [address] [id number] [place] [address]- 3677 Apr, [facility] [place] [facility] [address] [id number] [place] [address] 2540 Apr, [facility] [place] [facility] [address] [id number] [place] [address]- 2545 Apr, [facility] [place] [facility] [address] [id number] [place] [address]- 0302 Apr, [facility] [place] [facility] [address] [id number] [place] [address]- 2547 Apr, [facility] [place] [facility] [address] [id number] [place] [address]- 9477 Apr, [facility] [place] [facility] [address] [id number] [place] [address]- 6589 Apr, [facility] [place] [facility] [address] [id number] [place] [address]- 2746 Apr, [facility] [place] [facility] [address] [id number] [place] [address]- 2273 Mar, [facility] [place] [facility] [address] [id number] [place] [address]- 8788 Mar, [facility] [place] [facility] [address] [id number] [place] [address]- 0983 Mar, [facility] [place] [facility] [address] [id number] [place] [address]- 0998 Mar, [facility] [place] [facility] [address] [id number] [place] [address]- 6831 Mar, [facility] [place] [facility] [address] [id number] [place] [address]- 9837 Mar, [facility] [place] [facility] [address] [id number] [place] [address]- 2854 Feb, [facility] [place] [facility] [address] [id number] [place] [address]- 2508 Feb, [facility] [place] [facility] [address] [id number] [place] [address]- 5251 Feb, [facility] [place] [facility] [address] [id number] [place] [address]- 7037 January, [facility] [place] [facility] [address] [id number] [place] [address]- 9302 January, [facility] [place] [facility] [address] [id number] [place] [address]- 4585 January, [facility] [place] [facility] [address] [id number] [place] [address]- 3420 January, [facility] [place] [facility] [address] [id number] [place] [address]- 5093 January, [facility] [place] [facility] [address] [id number] [place] 3871 January, [facility] [place] [facility] [address] [id number] [place] [address]- 4665 Dec, [facility] [place] [facility] [address] [id number] [place] [address]- 5548 Dec, [facility] [place] [facility] [address] [id number] [place] [address]- 6507 Dec, [facility] [place] [facility] [address] [id number] [place] [address]- 4214 Dec, [facility] [place] [facility] [address] [id number] [place] [address]- 8641 Nov, [facility] [place] [facility] [address] [id number] [place] [address]- 2139 Nov, [facility] [place] [facility] [address] [id number] [place] [address]- 4645 Oct, [facility] [place] [facility] [address] [id number] [place] [address]- 5092 Oct, [facility] [place] [facility] [address] [id number] [place] [address]- 3452 Sep, [facility] [place] [facility] [address] [id number] [place] [address]- 6122 Sep, [facility] [place] [facility] [address] [id number] [place] [address]- 7548 Aug, [facility] [place] [facility] [address] [id number] [place] [address]- 0045 Aug, [facility] [place] [facility] [address] [id number] [place] [address]- 6654 Aug, [facility] [place] [facility] [address] [id number] [place] [address]- 6789 Jul, [facility] [place] [facility] [address] [id number] [place] [address] Jul, [facility] [address] [id number] [place] [address] Jul, [facility] [place] [facility] [address] [id number] [place] [address] Jul, [facility] [place] [facility] [address] [id number] [place] [address] Jul, [facility] [place] [facility] [address] [id number] [place] [address] May, [facility] [place] [facility] [address] [id number] [place] [address] May, [facility] [place] [facility] [address] [id number] [place] [address] Apr, [facility] [place] [facility] [address] [id number] [place] [address] Apr, [facility] [place] [facility] [address] [id number] [place] [address] Mar, [facility] [place] [facility] [address] [id number] [place] [address] Mar, [facility] [place] [facility] [address] [id number] [place] [address] Mar, [facility] [place] [facility] [address] [id number] [place] [address] Mar, [facility] [place] [facility] [address] [id number] [place] [address] Feb, [facility] [place] [facility] [address] [id number] [place] [address] Feb, [facility] [place] [facility] [address] [id number] [place] [address] Feb, [facility] [place] [facility] [address] [id number] [place] [address]- [address] Feb, [facility] [address] [id number] [place] [address] Feb, [facility] [address] [id number] [place] [address] January, [facility] [address] [id number] [place] [address] January, [facility] [address] [id number] [place] [address] January, [facility] [address] [id number] [place] [address]- [address] January, [facility] [address] [id number] [place] [address] Dec, [facility] [address] [id number] [place] [address]- [address] Dec, [facility] [address] [id number] [place] [address] Dec, [facility] [address] [id number] [place] [address] Dec, [facility] [address] [id number], [place] [address] Nov, [facility] [address] [id number] [place] [address] Nov, [facility] [address] [id number], [place] [address] Oct, [facility] [place] [facility] [address] [id number] [place] [address] Aug, [facility] [place] [facility] [address] [id number] [place] [address] Aug, [facility] [place] [facility] [address] [id number] [place] [address]- [address] Dec, [facility] [place] [facility] [address] [id number] [place] [address] 10 Dec, 2011 [facility] [address] [id number] [place] [address] 05 Dec, 2011 [facility] [place] [facility] [address] [id number] [place] [address] 26 Nov, 2011 [facility] [address] [id number] [place] [address] Nov, [facility] [place] [facility] [address] [id number] [place] [address] Oct, [facility] [address] [id number] [place] [address] Oct, [facility] [place] [facility] [address] [id number] [place] [address] Oct, [facility] [address] [id number] [place] [address] Sep, [facility] [address] [id number] [place] [place] [address] 24 Sep, 2011 [facility] [address] [id number] [place] [address] Sep, [facility] [address] [id number] [place] [address] 17 Sep, 2011 [facility] [address] [id number] [place] [address] Sep, [facility] [place] [facility] [address] [id number] [place] [address] Sep, [facility] [place] [facility] [address] [id number] [place] [address] 10 Sep, 2011 [facility] [place] [facility] [address] [id number] [place] [address] 09 Sep, 2011 [facility] [place] [facility] [address] [id number] [place] [address] Jul, [facility] [place] [facility] [address] [id number] [place] [address] 15 Jul, 2011 [facility] [address] [id number] [place] [address] 15 Jul, 2011 [facility] [address] [id number] [place] [address] 14 Nov, 2010 [facility] [place] [facility] [address] [id number] [place] [address] 17 Aug, 2010 [facility] [address] [id number] [place] [address] 17 Aug, 2010 [facility] [address] [id number] [place] [address] 16 Aug, 2010 [facility] [address] [id number] [place] [address] 15 Aug, 2010 [facility] [address] [id number] [place] [address] Aug, [facility] [place] [facility] [address] [id number] [place] [address] Jul, [facility] [address] [id number] [place] [address] Jun, [facility] [place] [facility] [address] [id number] [place] [address] Jun, [facility] [place] [facility] [address] [id number], [place] [address] Sep, [facility] [place] [facility] [address] [id number] [place] [address] Aug, [facility] [place] [facility] [address] [id number] [place] [address] Aug, [facility] [place] [facility] [address] [id number], [place] [address] 08 Aug, 2009 [facility] [place] [facility] [address] [id number], [place] [address] 14 Jun, 2009 [facility] [address] [facility] [id number], [place] [address] Jun, [facility] [address] [id number], [place] [address] May, [facility] [address] [facility] [id number], [place] [address] Apr, [facility] [address] [facility] [id number], [place] [address] Mar, [facility] [address] [facility] [id number], [place] [address] January, [facility] [address] [id number], [place] [address] Oct, IMMUNIZATIONS No Known Immunizations SOCIAL HISTORY Never Assessed REASON FOR VISIT DM check up -[facility] PLAN OF CARE VITAL SIGNS Height 70 in 2018-06-01 Weight 336.4 lbs 2018-06-01 Temperature 97.9 degrees Fahrenheit 2018-06-01 Heart Rate 94 bpm 2018-06-01 Respiratory Rate 22 2018-06-01 Oximetry 96 % 2018-06-01 BMI 48.26 kg/m2 2018-06-01 Blood pressure systolic 140 mmHg 2018-06-01 Blood pressure diastolic 80 mmHg 2018-06-01 MEDICATIONS Medication Instructions Dosage Frequency Start Date End Date Duration Status Prozac 40 MG Orally Once a day 1 capsule 24h Oct, Active Actos 45 MG Orally Once a day 1 tablet 24h Nov, 30 day(s) Active Diflucan 200 MG Orally every 72 hours 1 tablet 3 days Active Glucometer test blood sugar 12h January, lifetime Active Tresiba FlexTouch 200 UNIT/ML DX- E11.65 at bedtime Inject 160 units Mar, Active Cinnamon 500 mg Orally Once a day 2 capsules 24h Active Pen [place] 32G X 4 MM use with insulin pens for injection Feb, 30 days Active Cetirizine HCl 10 MG Orally Once a day 1 tablet 24h 30 day(s) Active Lisinopril 20 mg Orally Once a day 1 tablet 24h Active Omeprazole 40 mg Orally Once a day 1 capsule 24h Apr, Active MetFORMIN HCl ER (MOD) 500 mg Orally 2 times a day 2 tablets 12h Active Metronidazole 500 mg Orally Twice a day 1 tablet 12h May, May, 10 day(s) Active IBU 800 MG TAKE ONE TABLET BY MOUTH THREE TIMES DAILY 33 Active NovoLog Flexpen 100 UNIT/ML Subcutaneous 3 times a day 60 u 8h Feb, Active Amitriptyline HCl 50 mg Orally Once a day 1 tablet 24h Nov, Active Neurontin 800 MG Orally Three times a day 1.5 tablets 8h Oct, 30 day(s) Active Meloxicam 7.5 MG Orally 2 times a day 1 tablet 12h Feb, 30 day( s) Active Test strips test blood sugar h January, 25 days Active One Touch/One Touch II Starter Active A65-[id number] Active Depo-Testosterone 100 MG/ML Intramuscular once monthly 1 ml Mar, Active Zanaflex 4 MG Orally 2 times a day 1 tablet as needed 12h Apr, Active Acidophilus 100 mg Orally 2 times a day 1 capsule 12h May, Active Fish Oil 1000 MG Orally twice a day 1 capsule 12h Active Topiramate 25 MG Orally Twice a day 1 tablet 12h Apr, 30 day(s ) Active Lancets - test blood sugar h January, 25 days Active Levemir FlexTouch 100 UNIT/ML DX- E11.9 2 times a day 80 units 12h Feb, Not-Taking HydrOXYzine HCl 25 MG Orally three times a day as needed 1-2 tabs Nov Active RESULTS Name Result Date Reference Range A1C (IN HOUSE) 2018-06-01 A1C IN HOUSE 11.5 4.3 - 5.6 % Previous A1c 9.8 Lot [id number] Exp date 11/2019 PROCEDURES Procedure Date Ordered Result Body Site GLYCATED HEMOGLOBIN TEST Jun 01, 2018 INSTRUCTIONS MEDICATIONS ADMINISTERED No Known Medications [...] surgery at age 1 Hospitalization History [facility] for diabetes 09/2011 Hospitalization History [facility] diabetic issues 09/2015 Hospitalization History [facility] Pneumonia 01/2016 Hospitalization History [facility] left upper thigh[facility] 04/2017 Hospitalization History [facility]-inpatient psych 4 day stay 2013 Hospitalization History ED [place]- Shaking, unsure of blood sugar level 11/20/2017
--- OUTSIDE RECORDS SUMMARY | 2018-07-05 10:40 | XMS REPORT ---
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 Name Role Phone KRISSY HALL Unavailable PROBLEMS Type Condition ICD9-CM Code CLN44-SP Code Onset Dates Condition Status SNOMED Code Problem Other male erectile dysfunction N52.8 Active 435510418 Problem Diabetes type 2, controlled E11.9 Active 56388635 Problem Obesity, unspecified E66.9 Active 573796162 Problem Gastro-esophageal reflux disease with esophagitis K21.0 Active 547713284 Problem Insomnia, unspecified G47.00 Active 553612103 Problem Anxiety F41.9 Active 47172768 Problem 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 Active 03747103 Problem Hypertriglyceridemia E78.1 Active 557074264 Problem Generalized anxiety disorder F41.1 Active 94250300 Problem Chronic fatigue R53.82 Active 87542482 Problem Type 2 diabetes mellitus 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 E11.9 Active 461701421 Problem BMI 45.0-49.9, adult Z68.42 Active 644857229 Problem Other chronic pain G89.29 Active 80359075 Problem Morbid obesity due to excess calories E66.01 Active 756373416 Problem Type 2 diabetes mellitus with hyperglycemia E11.65 Active 030626017 Problem Hypertension I10 Active 37179616 Problem Diabetes type 2, uncontrolled E11.65 Active 731327414 Problem Mild episode of recurrent major depressive disorder F33.0 Active 021084680 Problem Type 2 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 Active 37264413 Problem Hypogonadism in male E29.1 Active 63511312 Problem Seasonal allergies J30.2 Active 564896263 Problem Controlled type 2 diabetes mellitus without complication, without long -term current use of insulin E11.9 Active 860548829 Problem Diabetic polyneuropathy associated with type 2 diabetes mellitus E11.42 Active 00127582 Problem Polyneuropathy G62.9 Active 69672672 Problem 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 Active 126388422 Problem 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 Active 758611340 Problem Diverticulitis of small intestine without perforation or abscess without bleeding K57.12 Active 20066013 Problem GERD without esophagitis K21.9 Active 143160381 Problem Type 2 diabetes mellitus with hyperglycemia E11.65 Active 107462152 ALLERGIES No Information ENCOUNTERS Encounter Location Date Diagnosis [place] [address] [address] Aug, [place] [address] 73423- 9285 Jun, [place] [address] 86052- 4026 May, Generalized abdominal pain R10.84 ; Hypogonadism in male E29.1 ; Hospital discharge follow-up Z09 and BMI 45.0-49.9, adult Z68.42 [place] [address] 06092- 4106 25 May, 2018 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 ; Generalized anxiety disorder F41.1 and BMI 45.0-49.9, adult Z68.42 [place] [address] 85771- 4883 12 May, 2018 Uncontrolled type 2 diabetes mellitus with hyperglycemia E11.65 [place] [address] 41037- 9255 May, Uncontrolled type 2 diabetes mellitus with hyperglycemia E11.65 ; BMI 45.0-49.9, adult Z68.42 and Colitis K52.9 [facility] [address] [place] [id number] [place] [address] 76016- 0341 May, [place] [address] 84450- 9182 May, [facility] [address] [place] [id number] [place] [address] 36511 -9931 Apr, Colitis K52.9 ; Abdominal discomfort R10.9 and Anxiety F41.9 [place] [address] [place] [address]- 3808 Apr, [place] [address] 18830- 8445 Apr, Colitis K52.9 and BMI 45.0-49.9, adult Z68.42 [place] [address] 71522- 0019 Apr, Diabetes type 2, uncontrolled E11.65 [place] [address] 07319- 3395 Apr, 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 ; Generalized anxiety disorder F41.1 and BMI 45.0-49.9, adult Z68.42 [place] [address] 75707- 1414 Apr, [place] [address] 78742- 2255 Apr, BMI 45.0-49.9, adult Z68.42 [place] [address] 71444- 3087 Apr, Candidiasis B37.9 ; Pain in right shoulder M25.511 ; Pain in left shoulder M25.512 ; Other chronic pain G89.29 and Morbid obesity due to excess calories E66.01 [place] [address] 01828- 1119 Apr, Hypogonadism in male E29.1 [facility] [address] [place] [id number] [place] [address] 12792 -8814 Mar, Yeast dermatitis B37.2 and Sensation of foreign body in throat R09.89 [facility] [address] 60683- 1670 Mar, [facility] [address] [place] [id number] [place] [address] 08744- 4109 Mar, Hypogonadism in male E29.1 [place] [address] 77446- 5501 Mar, Hypogonadism in male E29.1 [place] [address] [place] [id number] [place] [address] 97564- 5290 Mar, [facility] [address] [place] [id number] [place] [address] 80073- 5640 Mar, Diabetes type 2, uncontrolled E11.65 and Hypogonadism in male E29.1 [place] [address] [place] [id number] [place] [address] 10361- 4774 Mar, [place] [address] [place] [id number] [place] [address] 05905- 7790 Feb, Diabetes type 2, controlled E11.9 ; Myalgia M79.1 and BMI 45.0-49.9, adult Z68.42 [facility] [place] [address] [place] [id number] [place] [address] 17058 -7926 Feb, Hematuria, unspecified type R31.9 ; Side pain R10.9 and Rash R21 [place] [address] [place] [id number] [place] [address] 22260- 8694 January, [place] [address] [place] [id number] [place] [address] 74305- 6207 January, [place] [address] [place] [id number] [place] [address] 55047- 0966 January, [facility] [address] [place] [id number] [place] [address] 13101 -0625 January, Seasonal allergies J30.2 and BMI 45.0-49.9, adult Z68.42 [place] [address] [place] [id number] [place] [address] 61191- 2566 January, Chronic fatigue R53.82 ; Mild episode of recurrent major depressive disorder F33.0 and Polyneuropathy G62.9 [place] [address] [address] 56[address] January, Chronic fatigue R53.82 ; BMI 45.0-49.9, adult Z68.42 and Anxiety F41.9 [facility] [address] [address] 7104 January, Generalized anxiety disorder F41.1 [facility] [address] [place] [address] 14915- 4588 Dec, 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 ; Generalized anxiety disorder F41.1 ; High risk medication use Z79.899 and BMI 45.0-49.9, adult Z68.42 [facility] [address] [place] [id number] [place] [address] 02800- 8654 Dec, [facility] [address] [place] [id number] [place] [address] [id number] Dec, Encounter for dental examination Z01.20 [place] [address] [place] [id number] [place] [address] 55393- 0428 Dec, Mild episode of recurrent major depressive disorder F33.0 ; Type 2 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 and assisted 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.4 [place] [address] [place] [address] 41561- 5738 Nov, [facility] [address] [place] [id number] [place] [address] 00972- 6982 Nov, BMI 45.0-49.9, adult Z68.42 ; 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 and Generalized anxiety disorder F41.1 [facility] [address] [place] [address] 88349- 9998 Nov, Type 2 diabetes mellitus 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 E11.9 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 [facility] [address] [place] [address] [phone] Oct, Dental examination Z01.20 and Dental caries K02.9 [facility] [address] [place] [id number] [place] [address] 09570- 3721 Oct, [facility] [address] [place] [address] [address]- 0562 Oct, BMI 45.0-49.9, adult Z68.42 ; 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 and Generalized anxiety disorder F41.1 [place] [address] [place] [id number] [place] [address] 96504- 6040 Oct, [facility] [address] [place] [id number] [place] [address] 32132- 3612 Oct, [facility] [address] [place] [id number] [place] [address] 62765- 4980 Oct, Hypertriglyceridemia E78.1 [place] [address] [place] [id number] [place] [address] 13342- 2037 Oct, Hypertriglyceridemia E78.1 [place] [address] [place] [id number] [place] [address] 53322- 3415 Sep, Controlled type 2 diabetes mellitus without complication, without long-term current use of insulin E11.9 [place] [address] [place] [id number] [place] [address] 82200- 1444 Sep, [place] [address] [place] [id number] [place] [address] 52837- 0636 Sep, Controlled type 2 diabetes mellitus without complication, without long-term current use of insulin E11.9 [place] [address] [place] [address] 40237- 3362 Sep, [place] [address] [place] [id number] [place] [address] 57594- 9556 Sep, [facility] [address] [place] [address] 06269- 1138 Sep, BMI 45.0-49.9, adult Z68.42 ; Diabetic polyneuropathy associated with type 2 diabetes mellitus E11.42 and Chronic fatigue R53.82 [facility] [address] [address]- 9168 Sep, [place] [address] [address]- 6797 Sep, Hypertriglyceridemia E78.1 [facility] [address] [place] [id number] [place] [address] 06975- 3356 Aug, [facility] [address] [place] [id number] [place] [address] 56893- 7852 Aug, Generalized anxiety disorder F41.1 [facility] [address] [place] [id number] [place] [address] 59581- 0029 Aug, [facility] [address] [place] [id number] [place] [address] 14446- 7509 Aug, Hypertriglyceridemia E78.1 [place] [address] [place] [id number] [place] [address] 60842- 9117 Jul, [facility] [address] [place] [id number] [place] [address] 42771- 9164 Jul, [facility] [address] [place] [id number] [place] [address] 19793- 9586 Jul, Generalized anxiety disorder F41.1 ; 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 ; BMI 45.0-49.9, adult Z68.42 and Patient's noncompliance with other medical treatment and regimen Z91.19 [place] [address] [place] [id number] [place] [address] 74894- 0601 Jul, Diabetes type 2, uncontrolled E11.65 ; Diabetic polyneuropathy associated with type 2 diabetes mellitus E11.42 ; Abdominal pain , right upper quadrant R10.11 and Low back pain radiating to left lower extremity M54.5 [facility] [address] [address]- 5357 Jul, Generalized anxiety disorder F41.1 [facility] [address] [place] [id number] [place] [address] 37283- 5185 Jul, [facility] [address] [place] [id number] [place] [address] 72609- 7019 Jul, Hypertriglyceridemia E78.1 [facility] [address] [place] [address] 93945- 1425 Jul, Controlled type 2 diabetes mellitus without complication, without long-term current use of insulin E11.9 [facility] [address] [place] [address] 85968- 5196 Jun, [facility] [address] [place] [id number] [place] [address] 54871- 1035 Jun, Hypertriglyceridemia E78.1 [place] [address] [place] [id number] [place] [address] 10125- 8140 04 Jun, 2017 Controlled type 2 diabetes mellitus without complication, without long-term current use of insulin E11.9 [place] [address] [place] [id number] [place] [address] 04448- 3275 03 Jun, 2017 Generalized anxiety disorder F41.1 [place] [address] [place] [id number] [place] [address] 51372- 2548 02 Jun, 2017 Candidiasis B37.9 [facility] [address] [place] [id number] [place] [address] 63588- 2582 19 May, 2017 [place] [address] [place] [id number] [place] [address] 14139- 3083 18 May, 2017 Controlled type 2 diabetes mellitus without complication, without long-term current use of insulin E11.9 [place] [address] [place] [address] 03842- 4079 14 May, 2017 Hypertriglyceridemia E78.1 [place] [address] [place] [id number] [place] [address] 06936 2546 14 May, 2017 Hypertriglyceridemia E78.1 [place] [address] 7[address]01 2546 14 May, 2017 Hypertriglyceridemia E78.1 and Hypotestosteronemia E34.9 [facility] [address] [place] [id number] [place] [address] 21743- 7526 14 May, 2017 Generalized anxiety disorder F41.1 [facility] [address] [address]- 8726 05 May, 2017 [facility] [address] [place] [id number] [place] [address] 50910 -9039 May, Abscess and cellulitis L03.90 [facility] [address] [place] [id number] [place] [address] [id number] Apr, [facility] [address] [place] [id number] [place] [address] 35761- 3392 Apr, [place] [address] [place] [id number] [place] [address] 82191- 6489 Apr, Dermatofibroma of back D23.5 [facility] [address] [place] [id number] [place] [address] 85385 -9905 Apr, Muscle strain of left thigh, initial encounter S76.912A [place] [address] [place] [id number] [place] [address] 71723- 0408 Apr, [facility] [address] [place] [id number] [place] [address] 67386- 3141 Apr, Generalized anxiety disorder F41.1 [place] [address] [place] [id number] [place] [address] 43074- 1297 Apr, Polyneuropathy G62.9 [place] [address] [place] [id number] [place] [address] 93096- 7343 Apr, GERD without esophagitis K21.9 [facility] [address] [place] [id number] [place] [address] 47765- 6931 Apr, Generalized anxiety disorder F41.1 ; Diastasis recti M62.08 and Controlled type 2 diabetes mellitus without complication, without long-term current use of insulin E11.9 [place] [address] [place] [address] 10473- 3894 Apr, Generalized anxiety disorder F41.1 ; 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 and Controlled type 2 diabetes mellitus without complication, without long-term current use of insulin E11.9 [facility] [address] [place] [address] 10714- 3105 Mar, Generalized anxiety disorder F41.1 ; Diastasis recti M62.08 and Controlled type 2 diabetes mellitus without complication, without long-term current use of insulin E11.9 [facility] [address] [place] [address] 58596- 3318 Mar, Controlled type 2 diabetes mellitus without complication, without long-term current use of insulin E11.9 [facility] [address] [place] [address] 61159- 9906 Mar, Generalized anxiety disorder F41.1 [place] [address] [place] [id number] [place] [address] 54911- 2201 Mar, Generalized anxiety disorder F41.1 [place] [address] [place] [address] [place] [address] 66518- 9868 Mar, Generalized anxiety disorder F41.1 [facility] [address] [place] [address] [place] [address] 43924- 8934 Mar, Generalized anxiety disorder F41.1 [facility] [address] [place] [address] [place] [address] 24859- 0065 Feb, Controlled type 2 diabetes mellitus without complication, without long-term current use of insulin E11.9 [facility] [address] [place] [address] 57670- 9731 Feb, Controlled type 2 diabetes mellitus without complication, without long-term current use of insulin E11.9 and Tinea cruris B35.6 [facility] [address] [place] [address] 77484- 0198 Feb, Diabetes type 2, controlled E11.9 [facility] [address] [place] [address] [id number] Feb, Dental examination Z01.20 [facility] [address] [place] [address] 56146- 5776 Feb, Dental examination Z01.20 [facility] [address] [place] [address] 69572- 5498 Feb, Generalized anxiety disorder F41.1 [facility] [address] [place] [address] [place] [address] 02054 -0314 Feb, Muscle spasm M62.838 and Diabetes type 2, controlled E11.9 [facility] [address] [place] [address] [place] [address] 69464- 2121 Feb, Type 2 diabetes mellitus with hyperglycemia E11.65 [facility] [address] [place] [id number] [place] [address] [id number] Feb, Dental examination Z01.20 [facility] [address] [id number] Feb, Encounter for dental examination Z01.20 [facility] [address] [place] [id number] [place] [address] 09517- 8025 Feb, Diabetes type 2, controlled E11.9 [facility] [address] [place] [id number] [place] [address] 51308- 9999 Feb, Type 2 diabetes mellitus with hyperglycemia E11.65 [facility] [address] [place] [id number] [place] [address] 20366- 4826 Feb, [facility] [address] [place] [address] [place] [address] 28899- 4443 Feb, Controlled type 2 diabetes mellitus without complication, without long-term current use of insulin E11.9 [facility] [address] [place] [address] 50793- 0830 January, Candidiasis B37.9 [facility] [address] [place] [address] [place] [address] 28042- 3185 January, Type 2 diabetes mellitus with hyperglycemia E11.65 ; Hypertension I10 and Anxiety F41.9 [facility] [address] [place] [address] [place] [address] 24586- 8207 January, Type 2 diabetes mellitus with hyperglycemia E11.65 [place] [address] [place] [address] 88120- 0185 January, Controlled type 2 diabetes mellitus without complication, without long-term current use of insulin E11.9 [facility] [address] [place] [address] [place] [address] 99635- 9842 January, Generalized anxiety disorder F41.1 ; 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 ; Foot callus L84 and Controlled type 2 diabetes mellitus without complication, without long-term current use of insulin E11.9 [facility] [address] [place] [id number] [place] [address] 28160- 6569 Dec, [facility] [address] 14076- 2742 Dec, [place] [address] [place] [id number] [place] [address] 89994- 5833 Dec, Foot callus L84 and Rash R21 [place] [address] [place] [address] [place] [address] 59999- 4824 Dec, Controlled type 2 diabetes mellitus without complication, without long-term current use of insulin E11.9 [facility] [address] [place] [id number] [place] [address] 64327- 2429 Nov, [facility] [place] [address] [place] [id number] [place] [address] 47556 -6423 Nov, Sore throat J02.9 and Strep pharyngitis J02.0 [facility] [address] [place] [address] [place] [address] 96304- 7621 Nov, Generalized anxiety disorder F41.1 [facility] [address] [place] [id number] [place] [address] 05852- 9864 Nov, [facility] [address] [place] [id number] [place] [address] 44347- 8729 Nov, [facility] [address] [place] [id number] [place] [address] 12708- 3438 Nov, Type 2 diabetes mellitus with hyperglycemia E11.65 [facility] [address] [place] [address] 99099- 3063 09 Nov, 2016 Diabetes type 2, uncontrolled E11.65 and Localized edema R60.0 [facility] [address] [place] [id number] [place] [address] 09760- 5142 Nov, Controlled type 2 diabetes mellitus without complication, without long-term current use of insulin E11.9 [facility] [address] [place] [address] [place] [address] 36562- 2649 Oct, Generalized anxiety disorder F41.1 and 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 [place] [address] [place] [address] [place] [address] 55945- 5505 Oct, [place] [address] [place] [address] [place] [address] 21016- 6178 Oct, Type 2 diabetes mellitus with hyperglycemia E11.65 [place] [address] [place] [address] [place] [address] 22631- 5476 Oct, Type 2 diabetes mellitus with hyperglycemia E11.65 and assisted 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.4 [place] [address] [place] [id number] [place] [address] 79103- 2461 Oct, [facility] [address] [place] [address] 43789- 6875 Oct, [facility] [address] [place] [id number] [place] [address] [id number] Oct, Encounter for dental examination Z01.20 [facility] [address] [place] [address] 32370- 6072 Sep, [facility] [address] [place] [id number] [place] [address] 11120- 4742 Sep, Diabetes type 2, controlled E11.9 [facility] [address] [place] [address] 86772 -3523 Sep, Abdominal pain R10.9 and Diverticulitis of small intestine without perforation or abscess without bleeding K57.12 [place] [address] [place] [id number] [place] [address] 00931- 5111 Sep, [place] [address] [place] [address] [place] [address] 18746- 3993 Sep, Diabetes type 2, controlled E11.[address] 74385- 9272 Sep, Controlled type 2 diabetes mellitus without complication, without long-term current use of insulin E11.9 [place] [id number] [place] [address] 80816- 3276 Sep, Type 2 diabetes mellitus 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 E11.9 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 [facility] [address] 50754 -9436 Aug, Lower abdominal pain R10.30 ; GERD without esophagitis K21.9 and Candidiasis of skin B37.[address] 88099- 3397 Aug, Controlled type 2 diabetes mellitus without complication, without long-term current use of insulin E11.9 and Diabetic polyneuropathy associated with type 2 diabetes mellitus E11.42 [facility] [address] [place] [id number] [place] [address] 35705 -4044 Jul, Kelly infection of genital region B37.49 and Diabetes type 2, controlled E11.9 [place] [id number] [place] [address] 31527- 5012 Jul, Controlled type 2 diabetes mellitus without complication, without long-term current use of insulin E11.9 ; 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 and Acute pharyngitis due to other specified organisms J02.8 [facility] [address] [place] [id number] [place] [address] 07143 -2353 Jul, Acute upper respiratory infection, unspecified J06.9 and Other viral agents as the cause of diseases classified elsewhere B97.89 53 [place] [address] 19 Jun, 2016 Generalized anxiety disorder F41.1 [facility] [id number] [place] [address] 64727- 5198 14 Jun, 2016 [facility] [id number] [place] [address] 67654- 7790 13 Jun, 2016 Diabetes type 2, controlled E11.9 and Polyneuropathy G62.9 [facility] [id number] [place] [address] 97960- 3093 28 May, 2016 [facility] [id number] [place] [address] 78787- 4598 28 May, 2016 Generalized anxiety disorder F41.1 [facility] [id number] [place] [address] 68500- 8305 15 May, 2016 Polyneuropathy G62.9 [facility] [id number] [place] [address] 89088- 2907 May, [facility] [id number] [place] [address] 73227- 4888 Apr, Anxiety disorder, unspecified F41.9 [facility] [id number] [place] [address] 95369- 7442 Mar, Abdominal pain, unspecified abdominal location R10.9 ; Type 2 diabetes mellitus with hyperglycemia E11.65 ; assisted 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.4 and Diabetic polyneuropathy associated with type 2 diabetes mellitus E11.42 [facility] [id number] [place] [address] 12225- 0875 Mar, Generalized anxiety disorder F41.1 [facility] [id number] [place] [address] 95161- 3804 Mar, Generalized abdominal pain R10.84 and Other male erectile dysfunction N52.8 [facility] [address] [place] [address] 77916 -8295 Mar, [facility] [address] [place] [address]- 2492 Feb, Generalized anxiety disorder F41.1 [facility] [address] 81738- 8824 Feb, Abdominal cramping R10.9 ; Acute bilateral low back pain without sciatica M54.5 and Malaise R53.81 [facility] [address] 82721 -3676 Feb, Candidiasis B37.9 and Costochondritis M94.0 [facility] [address] 61812 -9767 Feb, Allergic rhinitis, unspecified allergic rhinitis type J30.9 [facility] [address] 41301- 4439 Feb, Generalized anxiety disorder F41.1 [facility] [address] 53095- 3198 Feb, [facility] [address] 06981- 6881 Feb, Major depressive disorder, recurrent, moderate F33.1 [facility] [address] 11860- 4583 Feb, Generalized anxiety disorder F41.1 [facility] [address] 49005- 3750 January, Unspecified infectious disease B99.9 [facility] [address] [id number] January, Dental examination Z01.20 [facility] [address] 22129- 2482 January, [facility] [address] 13529- 5807 January, Diabetes type 2, uncontrolled E11.65 [facility] [address] 80038 -3214 January, Wheezing R06.2 and History of pneumonia Z87.01 [facility] [id number] [place] [address] 70570- 1074 January, [facility] [id number] [place] [address] 30798- 6812 January, Depression, major, recurrent, moderate F33.1 [facility] [id number] [place] [address] 04988- 2406 January, [facility] [id number] [place] [address] 27896- 4189 January, Depression, major, recurrent, moderate F33.1 [facility] [id number] [place] [address] 72054- 7810 January, [facility] [id number] [place] [address] 27706- 6763 Dec, Depression, major, recurrent, moderate F33.1 [facility] [address] [place] [address] 73370- 7769 Dec, Dental examination Z01.20 [facility] [id number] [place] [address] [id number] Dec, Dental examination Z01.20 [facility] [id number] [place] [address] 30046- 4990 Dec, Generalized anxiety disorder F41.1 [facility] [id number] [place] [address] 65811- 6423 Dec, Generalized anxiety disorder F41.1 [facility] [id number] [place] [address] 42231- 4838 Nov, [facility] [id number] [place] [address] 27475- 6561 Nov, [facility] [id number] [place] [address] 05101- 0184 Nov, Generalized anxiety disorder F41.1 [facility] [address] [id number] 24 Nov, 2015 Dental examination Z01.20 [facility] [id number] [place] [address] 44637- 6245 22 Nov, 2015 [facility] [id number] [place] [address] 72868- 1590 Nov, Generalized anxiety disorder F41.1 and 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 [facility] [id number] [place] [address] 58615- 0244 Nov, Depression, major, recurrent, moderate F33.1 [facility] [id number] [place] [address] 78497- 1987 Nov, [facility] [id number] [place] [address] 71951- 6251 Nov, Diabetes type 2, uncontrolled E11.65 and Hypertension I10 [facility] [id number] [place] [address] [id number] 14 Nov, 2015 Dental examination Z01.20 [facility] [id number] [place] [address] 10426- 3929 03 Nov, 2015 [facility] [id number] [place] [address] 15981- 2471 Nov, Depression, major, recurrent, moderate F33.1 [facility] [address] [place] [address] 09964 -3247 Nov, Penile abrasion S30.812A [facility] [id number] [place] [address] 64321- 4044 Oct, Generalized anxiety disorder F41.1 [facility] [address] [place] [address] 03819- 0034 Oct, Depression, major, recurrent, moderate F33.1 [facility] [id number] [place] [address] 46886- 9212 Oct, Diabetes type 2, controlled E11.9 and Malaise R53.81 [facility] [id number] [place] [address] 10767- 8716 Oct, 2015 [facility] [address] 86734- 5862 16 Oct, 2015 [facility] [address] 38486- 0706 Oct, 2015 [facility] [address] 71011- 4295 Oct, Depression, major, recurrent, moderate F33.1 [facility] [address] 94503- 5965 Oct, Generalized anxiety disorder F41.1 and 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 [facility] [address] 18762- 8237 Oct, [facility] [address] 02654- 9658 Oct, Major depressive disorder, recurrent, moderate F33.1 [facility] [id number] [place] [address] 74746- 2581 Oct, [facility] [id number] [place] [address] 48143- 9782 Oct, [facility] [id number] [place] [address] 33480- 8201 Oct, Generalized anxiety disorder F41.1 [facility] [id number] [place] [address] 77203- 9510 Oct, [facility] [id number] [place] [address] 45000- 0237 Oct, Back muscle spasm M62.830 [facility] [id number] [place] [address] 59654- 4207 Oct, Major depressive disorder, recurrent, moderate F33.1 [facility] [address] [address]46 28 Sep, 2015 Back muscle spasm M62.830 ; Allergic rhinitis J30.9 and Person with feared health complaint in whom no diagnosis is made Z71.1 [facility] [address] [place] [address] 68878- 5617 22 Sep, 2015 Generalized anxiety disorder F41.1 [facility] [address] [place] [address] 84280 -0144 15 Sep, 2015 [facility] [id number] [place] [address] 04688- 4681 Sep, [facility] [id number] [place] [address] 79625- 5219 13 Sep, 2015 Mood disorder F39 ; Diabetes type 2, controlled E11.9 ; Morbid obesity due to excess calories E66.01 and Edema, unspecified type R60.9 [facility] [id number] [place] [address] 21590- 4525 Sep, Generalized anxiety disorder F41.1 [facility] [id number] [place] [address] 63767- 0116 Sep, [facility] [id number] [place] [address] 29906- 0140 07 Sep, 2015 Adjustment disorder with mixed anxiety and depressed mood F43.23 and Depression F32.9 [facility] [address] [place] [address] 82683- 8579 06 Sep, 2015 Generalized anxiety disorder F41.1 [facility] [id number] [place] [address] 88756- 4187 05 Sep, 2015 Generalized anxiety disorder 300.02 and Autism spectrum disorder F84.[address] [id number] [id number] Aug, Encounter for dental examination Z01.20 [facility] [address] [address]- 1485 Aug, [facility] [id number] [place] [address] 53773 -7815 Jul, Candidiasis B37.9 [facility] [address] [address]- 6162 Jul, [facility] [address] [place] [address] [id number] [id number] Jul, Encounter for dental examination Z01.20 [facility] [id number] [place] [address] 99600- 3767 Jul, [facility] [id number] [place] [address] 85116- 6735 Jun, [facility] [id number] [place] [address] 54327- 1073 30 May, 2015 Diabetes type 2, controlled 250.00 and Neuropathy 355.9 [facility] [id number] [place] [address] 56150- 5354 May, [facility] [id number] [place] [address] 75330- 1893 Apr, Generalized anxiety disorder 300.02 and Autism spectrum disorder 299.00 [facility] [id number] [place] [address] 53618- 9642 Apr, Abrasion, foot 917.0 ; Chest pain 786.50 and Back pain 724.5 [facility] [address] [place] [address] 98190- 3486 Apr, Generalized anxiety disorder 300.02 [facility] [id number] [place] [address] 51873- 2463 Feb, Anxiety state, unspecified 300.00 [facility] [address] [place] [address] 23988- 8797 Feb, Diabetes mellitus without mention of complication, type II or unspecified type, not stated as uncontrolled 250.00 ; Generalized anxiety disorder 300.02 ; Morbid obesity 278.01 ; Benign essential hypertension 401.1 ; Chronic pain 338.29 ; Screen for STD (sexually transmitted disease) V74.5 ; Dysuria 788.1 and Kelly infection of genital region 112.2 [facility] [address] [address]- 2546 Feb, [facility] [id number] [place] [address] 85659- 1166 January, Generalized anxiety disorder 300.02 and Autism spectrum disorder 299.00 [facility] [id number] [place] [address] 94226- 0456 Dec, [facility] [id number] [place] [address] 27044- 4566 Dec, [facility] [id number] [place] [address] 65712- 0116 Dec, [facility] [id number] [place] [address] 77731- 1469 Nov, [facility] [address] [place] [address] [id number] Nov, [facility] [id number] [place] [address] 45047- 2966 Nov, [facility] [address], [place] [address]- 2546 Nov, [facility] [address] [id number] Nov, [facility] [address], [place] [address]- 2546 Oct, [facility] [id number] [place] [address] 10381- 2546 Jul, [facility] [address], [place] [address]- 2546 Jul, [facility] [id number] [place] [address] [place] [address]- 6958 Jul, [facility] [place] [facility] [address] [id number] [place] [address]- 9018 Jul, [facility] [place] [facility] [address] [id number] [place] [address]- 5631 Jul, [facility] [place] [facility] [address] [id number] [place] [address]- 0293 Jul, [facility] [place] [facility] [address] [id number] [place] [address]- 2244 Jul, [facility] [place] [facility] [address] [id number] [place] [address]- 3995 Jul, [facility] [place] [facility] [address] [id number] [place] [address]- 2347 Jul, [facility] [place] [facility] [address] [id number] [place] [address]- 5354 Jul, [facility] [place] [facility] [address] [id number] [place] [address]- 1781 Jun, [facility] [place] [facility] [address] [id number] [place] [address]- 3179 Jun, [facility] [place] [facility] [address] [id number] [place] [address]- 9547 Jun, [facility] [place] [facility] [address] [id number] [place] [address]- 8209 Jun, [facility] [place] [facility] [address] [id number], [place] [address]- 6521 Jun, [facility] [place] [facility] [address] [id number] [place] [address]- 8330 Jun, [facility] [place] [facility] [address] [id number], [place] [address]- 8050 Jun, [facility] [place] [facility] [address] [id number], [place] [address]- 2745 30 May, 2014 [facility] [place] [facility] [address] [id number] [place] [address]- 5828 30 May, 2013 [facility] [place] [facility] [address] [id number] [place] [address]- 2566 12 May, 2013 [facility] [place] [facility] [address] [id number] [place] [address] 2546 May, 2013 [facility] [place] [facility] [address] [id number] [place] [address] 2546 May, 2013 [facility] [place] [facility] [address] [id number] [place] [address] 2542 10 May, 2013 [facility] [place] [facility] [address] [id number] [place] [address]- 0379 May, [facility] [place] [facility] [address] [id number] [place] [address]- 2652 May, [facility] [place] [facility] [address] [id number] [place] [address]- 2223 Apr, [facility] [place] [facility] [address] [id number] [place] [address]- 0107 Apr, [facility] [place] [facility] [address] [id number] [place] [address]- 5151 Apr, [facility] [place] [facility] [address] [id number] [place] [address]- 2275 Apr, [facility] [place] [facility] [address] [id number] [place] [address]- 254 Apr, [facility] [place] [facility] [address] [id number] [place] [address] 2544 Apr, [facility] [place] [facility] [address] [id number] [place] [address]- 2545 Apr, [facility] [place] [facility] [address] [id number] [place] [address]- 2542 Apr, [facility] [place] [facility] [address] [id number] [place] [address]- 6797 Apr, [facility] [place] [facility] [address] [id number] [place] [address]- 3542 Mar, [facility] [place] [facility] [address] [id number] [place] [address]- 8424 Mar, [facility] [place] [facility] [address] [id number] [place] [address]- 2711 Mar, [facility] [place] [facility] [address] [id number] [place] [address]- 6992 Mar, [facility] [place] [facility] [address] [id number] [place] [address]- 9818 Mar, [facility] [place] [facility] [address] [id number] [place] [address]- 9755 Mar, [facility] [place] [facility] [address] [id number] [place] [address]- 2198 Feb, [facility] [place] [facility] [address] [id number] [place] [address]- 1749 Feb, [facility] [place] [facility] [address] [id number] [place] [address]- 0735 Feb, [facility] [place] [facility] [address] [id number] [place] [address]- 3955 January, [facility] [place] [facility] [address] [id number] [place] [address]- 2622 January, [facility] [place] [facility] [address] [id number] [place] [address]- 2159 January, [facility] [place] [facility] [address] [id number] [place] [address]- 7989 January, [facility] [place] [facility] [address] [id number] [place] [address]- 6963 January, [facility] [place] [facility] [address] [id number] [place] [address]- 6425 January, [facility] [place] [facility] [address] [id number] [place] [address]- 5476 Dec, [facility] [address] [id number] [place] 9032 Dec, [facility] [place] [facility] [address] [id number] [place] [address]- 2838 Dec, [facility] [place] [facility] [address] [id number] [place] [address]- 7357 Dec, [facility] [place] [facility] [address] [id number] [place] [address]- 2143 Nov, [facility] [place] [facility] [address] [id number] [place] 6722 Nov, [facility] [place] [facility] [address] [id number] [place] [address]- 8493 Oct, [facility] [place] [facility] [address] [id number] [place] [address]- 2148 Oct, [facility] [place] [facility] [address] [id number] [place] [address]- 3451 Sep, [facility] [place] [facility] [address] [facility] [id number] [place] [address]- 4889 Sep, [facility] [address] [facility] [id number] [place] [address]- 3067 Aug, [facility] [place] [facility] [address] [id number] [place] [address]- 6990 Aug, [facility] [place] [facility] [address] [id number] [place] [address]- 6886 Aug, [facility] [place] [facility] [address] [id number] [place] [address]- 7205 Jul, [facility] [place] [facility] [address] [id number] [place] [address]- 6949 Jul, [facility] [place] [facility] [address] [id number] [place] [address]- 6652 Jul, [facility] [place] [facility] [address] [id number] [place] [address]- 9266 Jul, [facility] [place] [facility] [address] [id number] [place] [address]- 7687 Jul, [facility] [place] [facility] [address] [id number] [place] [address]- 4748 May, [facility] [place] [facility] [address] [id number] [place] [address]- 5682 May, [facility] [place] [facility] [address] [id number] [place] [address]- 0827 Apr, [facility] [place] [facility] [address] [id number] [place] [address]- 7836 Apr, [facility] [place] [facility] [address] [id number] [place] [address]- 6338 Mar, [facility] [place] [facility] [address] [id number] [place] [address]- 0935 Mar, [facility] [place] [facility] [address] [id number] [place] [address]- 1198 Mar, [facility] [place] [facility] [address] [id number], [place] [address]- 6431 Mar, [facility] [place] [facility] [address] [id number] [place] [address]- 9386 Feb, [facility] [place] [facility] [address] [id number], [place] [address]- 1128 Feb, [facility] [place] [facility] [address] [id number] [place] [address]- 0269 Feb, [facility] [place] [facility] [address] [id number], [place] [address]- 8036 Feb, [facility] [place] [facility] [address] [id number], [place] [address]- 7613 Feb, [facility] [place] [facility] [address] [id number], [place] [address]- 4213 January, [facility] [address] [id number] [place] [address]- 2031 January, [facility] [address] [id number] [place] [address]- 4983 January, [facility] [address] [id number] [place] [address]- 7718 January, [facility] [address] [id number] [place] [address] Dec, [facility] [address] [id number] [place] [address] Dec, [facility] [address] [id number] [place] [address] Dec, [facility] [address] [id number] [place] [address] Dec, [facility] [address] [id number] [place] [address] Nov, [facility] [address] [id number] [place] [address] Nov, [facility] [address] [facility] [id number] [place] [address] Oct, [facility] [address] [id number] [place] [address] Aug, [facility] [address] [id number] [place] [address] Aug, [facility] [address] [id number] [place] [address] Dec, [facility] [address] [id number] [place] [address] Dec, [facility] [address] [id number] [place] [address] Dec, [facility] [address] [id number] [place] [address] Nov, [facility] [place] [facility] [address] [id number] [place] [address] 15 Nov, 2011 [facility] [place] [facility] [address] [id number] [place] [address] Oct, [facility] [place] [facility] [address] [id number] [place] [address] Oct, [facility] [place] [facility] [address] [id number] [place] [address] Oct, [facility] [place] [facility] [address] [id number] [place] [address] 24 Sep, 2011 [facility] [place] [facility] [address] [id number] [place] [address] 24 Sep, 2011 [facility] [place] [facility] [address] [id number] [place] [address] Sep, [facility] [place] [facility] [address] [id number] [place] [address] 17 Sep, 2011 [facility] [place] [facility] [address] [id number] [place] [address] Sep, [facility] [place] [facility] [address] [id number] [place] [address] Sep, [facility] [place] [facility] [address] [id number] [place] [address] Sep, [facility] [place] [facility] [address] [id number] [place] [address] Sep, [facility] [place] [facility] [address] [id number] [place] [address] Jul, [facility] [place] [facility] [address] [id number] [place] [address] 15 Jul, 2011 [facility] [place] [facility] [address] [id number], [place] [address] 15 Jul, 2011 [facility] [address] [id number] [place] [address] 14 Nov, 2010 [facility] [place] [facility] [address] [id number] [place] [address] 17 Aug, 2010 [facility] [place] [facility] [address] [id number] [place] [address] 17 Aug, 2010 [facility] [place] [facility] [address] [id number] [place] [address] 16 Aug, 2010 [facility] [address] [id number] [place] [address] 15 Aug, 2010 [facility] [place] [facility] [address] [id number] [place] [address] 09 Aug, 2010 [facility] [place] [facility] [address] [id number] [place] [address] Jul, [facility] [place] [facility] [address] [id number], [place] [address] 12 Jun, 2010 [facility] [address] [address] [id number], [place] [address] Jun, [facility] [place] [facility] [address] [id number], [place] [address] Sep, [facility] [place] [facility] [address] [id number], [place] [address] 28 Aug, 2009 [facility] [place] [facility] [address] [id number], [place] [address] 09 Aug, 2009 [facility] [place] [facility] [address] [id number] [place] [id number] 08 Aug, 2009 [facility] [place] [facility] [address] [id number], [place] [address] 14 Jun, 2009 [facility] [place] [facility] [address] [id number], [place] [address] 14 Jun, 2009 [facility] [place] [facility] [address] [facility] [id number] [place] [address] 14 May, 2009 [facility] [address] [facility] [id number], [place] [address] Apr, [facility] [address] [id number], [place] [address] Mar, [facility] [address] [facility] [id number], [place] [address] January, [facility] [address] [facility] [id number], [place] [address] Oct, IMMUNIZATIONS No Known Immunizations SOCIAL HISTORY Never Assessed REASON FOR VISIT SOCK- PLAN OF CARE VITAL SIGNS MEDICATIONS Unknown [...] Hospitalization History celluitis of the left upper thigh-[facility] 04/2017 Hospitalization History [place]-inpatient psych 4 day stay 2013 Hospitalization History ED [place]- Shaking, unsure of blood sugar level 11/20/2017
--- OUTSIDE RECORDS SUMMARY | 2018-07-05 10:41 | XMS REPORT ---
Author Author NERISSA MARTINEZ [facility] Address [address] [place] [address] Care Team Providers Care Safety Fire Boss Name Role Phone NERISSA MARTINEZ Unavailable PROBLEMS Type Condition ICD9-CM Code ROF72-NW Code Onset Dates Condition Status SNOMED Code Problem Other male erectile dysfunction N52.8 Active 048508432 Problem Diabetes type 2, controlled E11.9 Active 81659848 Problem Obesity, unspecified E66.9 Active 484733869 Problem Gastro-esophageal reflux disease with esophagitis K21.0 Active 849131377 Problem Insomnia, unspecified G47.00 Active 226045702 Problem Anxiety F41.9 Active 45233082 Problem 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 Active 52699488 Problem Hypertriglyceridemia E78.1 Active 614263376 Problem Generalized anxiety disorder F41.1 Active 77086000 Problem Chronic fatigue R53.82 Active 09134323 Problem Type 2 diabetes mellitus 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 E11.9 Active 330349854 Problem BMI 45.0-49.9, adult Z68.42 Active 483140750 Problem Other chronic pain G89.29 Active 94996154 Problem Morbid obesity due to excess calories E66.01 Active 489348697 Problem Type 2 diabetes mellitus with hyperglycemia E11.65 Active 759478355 Problem Hypertension I10 Active 34708869 Problem Diabetes type 2, uncontrolled E11.65 Active 218800011 Problem Mild episode of recurrent major depressive disorder F33.0 Active 234641708 Problem Type 2 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 Active 58669746 Problem Hypogonadism in male E29.1 Active 79318930 Problem Seasonal allergies J30.2 Active 418875464 Problem Controlled type 2 diabetes mellitus without complication, without long -term current use of insulin E11.9 Active 497196353 Problem Diabetic polyneuropathy associated with type 2 diabetes mellitus E11.42 Active 85914011 Problem Polyneuropathy G62.9 Active 85477035 Problem 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 Active 466373037 Problem snf 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.4 Active 959670836 Problem Diverticulitis of small intestine without perforation or abscess without bleeding K57.12 Active 66513467 Problem GERD without esophagitis K21.9 Active 104590089 Problem Type 2 diabetes mellitus with hyperglycemia E11.65 Active 234634663 ALLERGIES No Information ENCOUNTERS Encounter Location Date Diagnosis [place] [id number] [place] [address] 83637- 3322 Aug, [place] [address] 22197- 0694 Jun, [place] [address] 36765- 4206 May, Generalized abdominal pain R10.84 ; Hypogonadism in male E29.1 ; Hospital discharge follow-up Z09 and BMI 45.0-49.9, adult Z68.42 [place] [address] 06686- 0922 25 May, 2018 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 ; Generalized anxiety disorder F41.1 and BMI 45.0-49.9, adult Z68.42 [facility] [address] 72221- 6457 12 May, 2018 Uncontrolled type 2 diabetes mellitus with hyperglycemia E11.65 [place] [id number] [place] [address] 10012- 3289 May, Uncontrolled type 2 diabetes mellitus with hyperglycemia E11.65 ; BMI 45.0-49.9, adult Z68.42 and Colitis K52.9 [facility] [id number] [place] [address] 21355- 7876 May, [place] [address] 67879- 0785 May, [facility] [id number] [place] [address] 54298 -0531 Apr, Colitis K52.9 ; Abdominal discomfort R10.9 and Anxiety F41.9 [place] [address] 32599- 1500 Apr, [facility] [id number] [place] [address] 40647- 3260 Apr, Colitis K52.9 and BMI 45.0-49.9, adult Z68.42 [place] [id number] [place] [address] 02253- 0423 Apr, Diabetes type 2, uncontrolled E11.65 [place] [address] 63020- 6222 Apr, 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 ; Generalized anxiety disorder F41.1 and BMI 45.0-49.9, adult Z68.42 [place] [address] 54388- 9037 Apr, [place] [id number] [place] [address] 23187- 0508 Apr, BMI 45.0-49.9, adult Z68.42 [place] [id number] [place] [address] 92046- 1218 Apr, Candidiasis B37.9 ; Pain in right shoulder M25.511 ; Pain in left shoulder M25.512 ; Other chronic pain G89.29 and Morbid obesity due to excess calories E66.01 [place] [id number] [place] [address] 89103- 1996 Apr, Hypogonadism in male E29.1 [facility] [id number] [place] [address] 31258 -8881 Mar, Yeast dermatitis B37.2 and Sensation of foreign body in throat R09.89 [facility] [id number] [place] [address] 83810- 4282 Mar, [facility] [id number] [place] [address] 33343- 6584 Mar, Hypogonadism in male E29.1 [place] [address] 77343- 6394 Mar, Hypogonadism in male E29.1 [facility] [id number] [place] [address] 23621- 8768 Mar, [facility] [id number] [place] [address] 66515- 6844 Mar, Diabetes type 2, uncontrolled E11.65 and Hypogonadism in male E29.1 [place] [id number] [place] [address] 42158- 5546 Mar, [place] [id number] [place] [address] 91035- 4603 Feb, Diabetes type 2, controlled E11.9 ; Myalgia M79.1 and BMI 45.0-49.9, adult Z68.42 [facility] [place] [id number] [place] [address] 68058 -9702 Feb, Hematuria, unspecified type R31.9 ; Side pain R10.9 and Rash R21 [place] [id number] [place] [address] 12742- 3255 January, [place] [id number] [place] [address] 50029- 6598 January, [place] [id number] [place] [address] 77295- 2451 January, [facility] [id number] [place] [address] 22644 -3657 January, Seasonal allergies J30.2 and BMI 45.0-49.9, adult Z68.42 [place] [id number] [place] [address] 66927- 6100 January, Chronic fatigue R53.82 ; Mild episode of recurrent major depressive disorder F33.0 and Polyneuropathy G62.9 [place] [address] [address]- 6029 January, Chronic fatigue R53.82 ; BMI 45.0-49.9, adult Z68.42 and Anxiety F41.9 [facility] [id number] [place] [address] 49784- 4840 January, Generalized anxiety disorder F41.1 [facility] [id number] [place] [address] 90122- 7657 Dec, 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 ; Generalized anxiety disorder F41.1 ; High risk medication use Z79.899 and BMI 45.0-49.9, adult Z68.42 [facility] [id number] [place] [address] 25877- 0714 Dec, [facility] [address] [id number] Dec, Encounter for dental examination Z01.20 [place] [address] 30926- 8939 Dec, Mild episode of recurrent major depressive disorder F33.0 ; Type 2 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 and snf 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.4 [facility] [id number] [place] [address] 49486- 4832 Nov, [facility] [id number] [place] [address] 01695- 9737 Nov, BMI 45.0-49.9, adult Z68.42 ; 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 and Generalized anxiety disorder F41.1 [facility] [address] [place] [address] 66378- 8913 Nov, Type 2 diabetes mellitus 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 E11.9 and snf 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.4 [facility] [address] [id number] [place] [address] [id number] Oct, Dental examination Z01.20 and Dental caries K02.9 [facility] [id number] [place] [address] 28083- 5843 Oct, [facility] [address] [place] [address]- 6159 Oct, BMI 45.0-49.9, adult Z68.42 ; 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 and Generalized anxiety disorder F41.1 [place] [id number] [place] [address] 08381- 7721 Oct, [facility] [id number] [place] [address] 87159- 2765 Oct, [facility] [id number] [place] [address] 99938- 9159 Oct, Hypertriglyceridemia E78.1 [place] [id number] [place] [address] 17547- 1956 Oct, Hypertriglyceridemia E78.1 [facility] [id number] [place] [address] 34978- 0465 Sep, Controlled type 2 diabetes mellitus without complication, without long-term current use of insulin E11.9 [place] [id number] [place] [address] 43184- 6832 Sep, [place] [id number] [place] [address] 11565- 0577 Sep, Controlled type 2 diabetes mellitus without complication, without long-term current use of insulin E11.9 [place] [address] [address]- 3832 Sep, [place] [address] [place] [address] 17997- 9767 Sep, [facility] [address] [place] [address] 00305- 5885 Sep, BMI 45.0-49.9, adult Z68.42 ; Diabetic polyneuropathy associated with type 2 diabetes mellitus E11.42 and Chronic fatigue R53.82 [facility] [address] [address]- 2184 Sep, [facility] [id number] [place] [address]- 1631 Sep, Hypertriglyceridemia E78.1 [facility] [id number] [place] [address] 16624- 4133 Aug, [facility] [id number] [place] [address] 15678- 8735 Aug, Generalized anxiety disorder F41.1 [facility] [id number] [place] [address] 09484- 6030 Aug, [facility] [id number] [place] [address] 78614- 5374 Aug, Hypertriglyceridemia E78.1 [facility] [id number] [place] [address] 10532- 9076 Jul, [facility] [id number] [place] [address] 34158- 7246 Jul, [facility] [id number] [place] [address] 13722- 7150 Jul, Generalized anxiety disorder F41.1 ; 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 ; BMI 45.0-49.9, adult Z68.42 and Patient's noncompliance with other medical treatment and regimen Z91.19 [facility] [address] [place] [address] 67597- 7036 Jul, Diabetes type 2, uncontrolled E11.65 ; Diabetic polyneuropathy associated with type 2 diabetes mellitus E11.42 ; Abdominal pain , right upper quadrant R10.11 and Low back pain radiating to left lower extremity M54.5 [facility] [address] [address]- 8712 Jul, Generalized anxiety disorder F41.1 [facility] [address] [place] [address] 56030- 3617 Jul, [facility] [address] [place] [address]- 6736 Jul, Hypertriglyceridemia E78.1 [facility] [address] [address]- 3414 Jul, Controlled type 2 diabetes mellitus without complication, without long-term current use of insulin E11.9 [facility] [address] [place] [address] 55519- 4915 Jun, [facility] [id number] [place] [address] 59746- 1695 Jun, Hypertriglyceridemia E78.1 [place] [id number] [place] [address] 83984- 0857 04 Jun, 2017 Controlled type 2 diabetes mellitus without complication, without long-term current use of insulin E11.9 [place] [id number] [place] [address] 72747- 2162 Jun, Generalized anxiety disorder F41.1 [place] [id number] [place] [address] 79119- 5010 Jun, Candidiasis B37.9 [facility] [id number] [place] [address] 47924- 9383 19 May, 2017 [place] [id number] [place] [address] 85236- 7626 18 May, 2017 Controlled type 2 diabetes mellitus without complication, without long-term current use of insulin E11.9 [place] [address] [place] [address] 53228- 4243 14 May, 2017 Hypertriglyceridemia E78.1 [place] [id number] [place] [address] 29419 2546 14 May, 2017 Hypertriglyceridemia E78.1 [place] [id number] [place] [address] 40414 2546 14 May, 2017 Hypertriglyceridemia E78.1 and Hypotestosteronemia E34.9 [facility] [address] [place] [address] 83841- 9798 14 May, 2017 Generalized anxiety disorder F41.1 [place] [address] [place] [address] 50599- 0380 May, [facility] [id number] [place] [address] 03158 -0373 May, Abscess and cellulitis L03.90 [facility] [address] [place] [id number] [place] [address] [id number] Apr, [place] [address] 87554- 4710 Apr, [place] [id number] [place] [address] 73782- 0247 Apr, Dermatofibroma of back D23.5 [facility] [place] [id number] [place] [address] 11806 -9748 Apr, Muscle strain of left thigh, initial encounter S76.912A [place] [address] 30383- 4963 Apr, [place] [id number] [place] [address] 50766- 9845 Apr, Generalized anxiety disorder F41.1 [place] [id number] [place] [address] 53431- 8046 Apr, Polyneuropathy G62.9 [place] [id number] [place] [address] 85608- 4587 Apr, GERD without esophagitis K21.9 [place] [id number] [place] [address] 39808- 3155 Apr, Generalized anxiety disorder F41.1 ; Diastasis recti M62.08 and Controlled type 2 diabetes mellitus without complication, without long-term current use of insulin E11.9 [place] [address] [place] [address] 62644- 8388 Apr, Generalized anxiety disorder F41.1 ; 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 and Controlled type 2 diabetes mellitus without complication, without long-term current use of insulin E11.9 [place] [address], [place] [address]- 2733 Mar, Generalized anxiety disorder F41.1 ; Diastasis recti M62.08 and Controlled type 2 diabetes mellitus without complication, without long-term current use of insulin E11.9 [facility] [address] [place] [address] 27497- 7360 Mar, Controlled type 2 diabetes mellitus without complication, without long-term current use of insulin E11.9 [facility] [address] [place] [address] 22706- 5194 Mar, Generalized anxiety disorder F41.1 [place] [id number] [place] [address] 11978- 1617 Mar, Generalized anxiety disorder F41.1 [facility] [id number] [place] [address] 98503- 3674 Mar, Generalized anxiety disorder F41.1 [facility] [address] [place] [address] 17296- 9457 Mar, Generalized anxiety disorder F41.1 [facility] [id number] [place] [address] 98476- 1424 Feb, Controlled type 2 diabetes mellitus without complication, without long-term current use of insulin E11.9 [facility] [address], [place] [address]- 1120 Feb, Controlled type 2 diabetes mellitus without complication, without long-term current use of insulin E11.9 and Tinea cruris B35.6 [facility] [address] [place] [address]- 1540 Feb, Diabetes type 2, controlled E11.9 [facility] [address] [place] [address] [id number] Feb, Dental examination Z01.20 [facility] [address] [place] [address] 47862- 0965 Feb, Dental examination Z01.20 [facility] [address] [place] [address] 52055- 7423 Feb, Generalized anxiety disorder F41.1 [facility] [id number] [place] [address] 74243 -6482 Feb, Muscle spasm M62.838 and Diabetes type 2, controlled E11.9 [facility] [id number] [place] [address] 79536- 0112 Feb, Type 2 diabetes mellitus with hyperglycemia E11.65 [facility] [id number] [place] [address] [id number] Feb, Dental examination Z01.20 [facility] [id number] [place] [address] [id number] Feb, Encounter for dental examination Z01.20 [facility] [id number] [place] [address] 31493- 5038 Feb, Diabetes type 2, controlled E11.9 [facility] [id number] [place] [address] 24628- 1197 Feb, Type 2 diabetes mellitus with hyperglycemia E11.65 [facility] [id number] [place] [address] 21418- 5710 Feb, [facility] [id number] [place] [address] 42228- 7132 Feb, Controlled type 2 diabetes mellitus without complication, without long-term current use of insulin E11.9 [facility] [id number] [place] [address] 84251- 1151 January, Candidiasis B37.9 [facility] [id number] [place] [address] 12410- 4709 January, Type 2 diabetes mellitus with hyperglycemia E11.65 ; Hypertension I10 and Anxiety F41.9 [facility] [id number] [place] [address] 75395- 6192 January, Type 2 diabetes mellitus with hyperglycemia E11.65 [facility] [id number] [place] [address] 80259- 6989 January, Controlled type 2 diabetes mellitus without complication, without long-term current use of insulin E11.9 [facility] [id number] [place] [address] 47293- 0193 January, Generalized anxiety disorder F41.1 ; 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 ; Foot callus L84 and Controlled type 2 diabetes mellitus without complication, without long-term current use of insulin E11.9 [facility] [id number] [place] [address] 81572- 6897 Dec, [facility] [address] 66396- 9162 Dec, [place] [address] 87316- 3228 Dec, Foot callus L84 and Rash R21 [place] [address] 72814- 4599 Dec, Controlled type 2 diabetes mellitus without complication, without long-term current use of insulin E11.9 [facility] [id number] [place] [address] 81048- 5973 Nov, [facility] [id number] [place] [address] 27935 -8789 Nov, Sore throat J02.9 and Strep pharyngitis J02.0 [facility] [id number] [place] [address] 01622- 9406 Nov, Generalized anxiety disorder F41.1 [facility] [id number] [place] [address] 31312- 6103 Nov, [place] [address] 72633- 5309 Nov, [facility] [id number] [place] [address] 88140- 7034 Nov, Type 2 diabetes mellitus with hyperglycemia E11.65 [place] [address] [place] [address] 64678- 7637 09 Nov, 2016 Diabetes type 2, uncontrolled E11.65 and Localized edema R60.0 [place] [id number] [place] [address] 06690- 3404 Nov, Controlled type 2 diabetes mellitus without complication, without long-term current use of insulin E11.9 [place] [address] 29718- 9778 14 Oct, 2016 Generalized anxiety disorder F41.1 and 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 [place] [address] 67447- 1178 Oct, [place] [id number] [place] [address] 95854- 7212 Oct, Type 2 diabetes mellitus with hyperglycemia E11.65 [place] [id number] [place] [address] 14433- 2179 Oct, Type 2 diabetes mellitus with hyperglycemia E11.65 and long term care phlebotomist 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.4 [place] [id number] [place] [address] 01186- 6433 Oct, [place] [id number] [place] [address] 29580- 4871 Oct, [facility] [id number] [place] [address] [id number] Oct, Encounter for dental examination Z01.20 [facility] [address] [place] [address] 42620- 9834 Sep, [place] [address] 35202- 2943 Sep, Diabetes type 2, controlled E11.9 [facility] [id number] [place] [address] 40691 -6323 Sep, Abdominal pain R10.9 and Diverticulitis of small intestine without perforation or abscess without bleeding K57.12 [place] [id number] [place] [address] 91197- 3555 Sep, [place] [id number] [place] [address] 11762- 6078 Sep, Diabetes type 2, controlled E11.[address] 13978- 6944 Sep, Controlled type 2 diabetes mellitus without complication, without long-term current use of insulin E11.9 [place] [id number] [place] [address] 47680- 3879 Sep, Type 2 diabetes mellitus 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 E11.9 and long term care phlebotomist 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.[address] 85239 -9663 Aug, Lower abdominal pain R10.30 ; GERD without esophagitis K21.9 and Candidiasis of skin B37.[address] 87381- 7985 Aug, Controlled type 2 diabetes mellitus without complication, without long-term current use of insulin E11.9 and Diabetic polyneuropathy associated with type 2 diabetes mellitus E11.42 [place] [id number] [place] [address] 70959 -3960 Jul, Kelly infection of genital region B37.49 and Diabetes type 2, controlled E11.9 [place] [id number] [place] [address] 48484- 3193 Jul, Controlled type 2 diabetes mellitus without complication, without long-term current use of insulin E11.9 ; 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 and Acute pharyngitis due to other specified organisms J02.8 [facility] [place] [id number] [place] [address] 76024 -1935 Jul, Acute upper respiratory infection, unspecified J06.9 and Other viral agents as the cause of diseases classified elsewhere B97.[address] 80635- 1778 19 Jun, 2016 Generalized anxiety disorder F41.1 [facility] [id number] [place] [address] 11854- 2232 14 Jun, 2016 [facility] [id number] [place] [address] 45847- 5261 13 Jun, 2016 Diabetes type 2, controlled E11.9 and Polyneuropathy G62.9 [facility] [address] [id number] [place] [address] 48101- 3546 28 May, 2016 [facility] [id number] [place] [address] 75477- 8904 28 May, 2016 Generalized anxiety disorder F41.1 [place] [id number] [place] [address] 79473- 4339 15 May, 2016 Polyneuropathy G62.9 [facility] [place] [id number] [place] [address] 85064- 8279 13 May, 2016 [facility] [id number] [place] [address] 66301- 0304 Apr, Anxiety disorder, unspecified F41.9 [place] [id number] [place] [address] 59556- 5352 Mar, Abdominal pain, unspecified abdominal location R10.9 ; Type 2 diabetes mellitus with hyperglycemia E11.65 ; long term care phlebotomist 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.4 and Diabetic polyneuropathy associated with type 2 diabetes mellitus E11.42 [facility] [id number] [place] [address] 41370- 5996 Mar, Generalized anxiety disorder F41.1 [place] [id number] [place] [address] 34356- 1740 Mar, Generalized abdominal pain R10.84 and Other male erectile dysfunction N52.8 [facility] [id number] [place] [address] 19689 -2908 Mar, [facility] [id number] [place] [address] 80129- 6388 Feb, Generalized anxiety disorder F41.1 [facility] [id number] [place] [address] 96118- 9379 Feb, Abdominal cramping R10.9 ; Acute bilateral low back pain without sciatica M54.5 and Malaise R53.81 [facility] [address] 67564 -2067 Feb, Candidiasis B37.9 and Costochondritis M94.0 [facility] [address] 01583 -0433 Feb, Allergic rhinitis, unspecified allergic rhinitis type J30.9 [facility] [address] 28528- 6133 Feb, Generalized anxiety disorder F41.1 [place] [address] 31395- 0368 Feb, [facility] [address] 66489- 8306 Feb, Major depressive disorder, recurrent, moderate F33.1 [facility] [id number] [place] [address] 13656- 4437 Feb, Generalized anxiety disorder F41.1 [facility] [id number] [place] [address] 30837- 2281 January, Unspecified infectious disease B99.9 [facility] [id number] [place] [address] [id number] January, Dental examination Z01.20 [facility] [address] 27017- 3368 January, [facility] [address] 79287- 4403 January, Diabetes type 2, uncontrolled E11.65 [facility] [address] 31307 -2262 January, Wheezing R06.2 and History of pneumonia Z87.01 [facility] [id number] [place] [address] 48342- 9319 January, [facility] [id number] [place] [address] 06103- 0027 January, Depression, major, recurrent, moderate F33.1 [facility] [id number] [place] [address] 23908- 5987 January, [facility] [id number] [place] [address] 44748- 0418 January, Depression, major, recurrent, moderate F33.1 [facility] [id number] [place] [address] 01562- 0617 January, [facility] [id number] [place] [address] 39848- 3845 Dec, Depression, major, recurrent, moderate F33.1 [facility] [id number] [place] [address] 98756- 8177 Dec, Dental examination Z01.20 [facility] [id number] [place] [address] [id number] Dec, Dental examination Z01.20 [facility] [id number] [place] [address] 51627- 1906 Dec, Generalized anxiety disorder F41.1 [facility] [id number] [place] [address] 36122- 9204 Dec, Generalized anxiety disorder F41.1 [facility] [id number] [place] [address] 95191- 8531 Nov, [facility] [id number] [place] [address] 78521- 7518 Nov, [facility] [id number] [place] [address] 44683- 5304 Nov, Generalized anxiety disorder F41.1 [facility] [address] [id number] 24 Nov, 2015 Dental examination Z01.20 [facility] [id number] [place] [address] 05670- 9345 22 Nov, 2015 [facility] [id number] [place] [address] 33078- 4943 Nov, Generalized anxiety disorder F41.1 and 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 [facility] [id number] [place] [address] 53760- 2761 Nov, Depression, major, recurrent, moderate F33.1 [facility] [id number] [place] [address] 22510- 9289 Nov, [facility] [address] 32201- 0017 Nov, Diabetes type 2, uncontrolled E11.65 and Hypertension I10 [facility] [id number] [place] [address] [id number] 14 Nov, 2015 Dental examination Z01.20 [facility] [id number] [place] [address] 31730- 4636 03 Nov, 2015 [facility] [id number] [place] [address] 65137- 9126 Nov, Depression, major, recurrent, moderate F33.1 [facility] [id number] [place] [address] 35888 -8176 Nov, Penile abrasion S30.812A [facility] [id number] [place] [address] 49708- 2473 Oct, Generalized anxiety disorder F41.1 [facility] [id number] [place] [address] 09519- 7588 Oct, Depression, major, recurrent, moderate F33.1 [facility] [id number] [place] [address] 11132- 9926 Oct, Diabetes type 2, controlled E11.9 and Malaise R53.81 [facility] [id number] [place] [address] 54404- 5581 Oct, 2015 [facility] [address] 89313- 8028 16 Oct, 2015 [facility] [address] 15332- 7365 Oct, [facility] [address] 78824- 1131 Oct, Depression, major, recurrent, moderate F33.1 [place] [address] 69889- 8144 Oct, Generalized anxiety disorder F41.1 and 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 [place] [address] 55532- 5454 Oct, [facility] [id number] [place] [address] 24280- 6834 Oct, Major depressive disorder, recurrent, moderate F33.1 [place] [id number] [place] [address] 74482- 0003 Oct, [facility] [id number] [place] [address] 02641- 4588 Oct, [facility] [id number] [place] [address] 67007- 7980 Oct, Generalized anxiety disorder F41.1 [facility] [id number] [place] [address] 52973- 6429 Oct, [facility] [address] 63694- 7907 Oct, Back muscle spasm M62.830 [facility] [id number] [place] [address] 64622- 5025 Oct, Major depressive disorder, recurrent, moderate F33.1 [facility] [address] [address] 28 Sep, 2015 Back muscle spasm M62.830 ; Allergic rhinitis J30.9 and Person with feared health complaint in whom no diagnosis is made Z71.1 [facility] [address], [place] [address]- 1055 22 Sep, 2015 Generalized anxiety disorder F41.1 [facility] [address], [place] [address] -2815 15 Sep, 2015 [place] [id number] [place] [address] 70821- 1497 15 Sep, 2015 [facility] [id number] [place] [address] 60126- 0895 13 Sep, 2015 Mood disorder F39 ; Diabetes type 2, controlled E11.9 ; Morbid obesity due to excess calories E66.01 and Edema, unspecified type R60.9 [facility] [address] [place] [address] 56524- 7729 13 Sep, 2015 Generalized anxiety disorder F41.1 [place] [address] [place] [address] 00568- 9917 Sep, [facility] [id number] [place] [address] 52745- 5577 07 Sep, 2015 Adjustment disorder with mixed anxiety and depressed mood F43.23 and Depression F32.9 [place] [address], [place] [address]- 8276 06 Sep, 2015 Generalized anxiety disorder F41.1 [facility] [facility] [id number] [place] [address] 52028- 2374 05 Sep, 2015 Generalized anxiety disorder 300.02 and Autism spectrum disorder F84.0 [facility] [id number] [place] [id number] Aug, Encounter for dental examination Z01.20 [place] [address], [place] [address]- 8926 Aug, [facility] [id number] [place] [address] 18605 -2328 Jul, Candidiasis B37.9 [facility] [address], [place] [address]- 9612 Jul, [id number] [id number] Jul, Encounter for dental examination Z01.20 [facility] [address] [place] [address] 62323- 1256 Jul, [facility] [id number] [place] [address] 27563- 1197 Jun, [facility] [id number] [place] [address] 55306- 3200 30 May, 2015 Diabetes type 2, controlled 250.00 and Neuropathy 355.9 [facility] [id number] [place] [address] 88478- 9643 May, [facility] [id number] [place] [address] 05151- 1275 Apr, Generalized anxiety disorder 300.02 and Autism spectrum disorder 299.00 [facility] [id number] [place] [address] 29081- 0023 Apr, Abrasion, foot 917.0 ; Chest pain 786.50 and Back pain 724.5 [facility] [address] [place] [address] 89524- 8052 Apr, Generalized anxiety disorder 300.02 [facility] [id number] [place] [address] 28902- 6406 Feb, Anxiety state, unspecified 300.00 [facility] [address] [place] [address] 64615- 7890 Feb, Diabetes mellitus without mention of complication, type II or unspecified type, not stated as uncontrolled 250.00 ; Generalized anxiety disorder 300.02 ; Morbid obesity 278.01 ; Benign essential hypertension 401.1 ; Chronic pain 338.29 ; Screen for STD (sexually transmitted disease) V74.5 ; Dysuria 788.1 and Kelly infection of genital region 112.2 [facility] [address], [place] [address]- 1836 Feb, [facility] [id number] [place] [address] 17310- 4296 January, Generalized anxiety disorder 300.02 and Autism spectrum disorder 299.00 [facility] [id number] [place] [address] 24415- 7246 Dec, [facility] [id number] [place] [address] 04906- 4266 Dec, [facility] [id number] [place] [address] 14989- 0463 Dec, [facility] [id number] [place] [address] 93408- 1072 Nov, [facility] [address] [place] [address] [id number] Nov, [facility] [id number] [place] [address] 42279- 2276 Nov, [facility] [address], [place] [address]- 6326 Nov, [facility] [id number] [place] [address] [id number] Nov, [facility] [address], [place] [address]- 2546 Oct, [facility] [id number] [place] [address] 92886 2546 Jul, [facility] [address], [place] [address]- 2236 Jul, [facility] [id number] [place] [address] 99393- 9722 Jul, [facility] [place] [facility] [address] [id number] [place] [address]- 4519 Jul, [facility] [place] [facility] [address] [id number] [place] [address]- 3805 Jul, [facility] [place] [facility] [address] [id number] [place] [address]- 9128 Jul, [facility] [place] [facility] [address] [id number] [place] [address]- 3867 Jul, [facility] [place] [facility] [address] [id number] [place] [address]- 3112 Jul, [facility] [place] [facility] [address] [id number] [place] [address]- 8365 Jul, [facility] [place] [facility] [address] [facility] [id number] [place] [address]- 7327 Jul, [facility] [place] [facility] [address] [id number] [place] [address]- 0947 Jun, [facility] [place] [facility] [address] [id number] [place] [address]- 6039 Jun, [facility] [place] [facility] [address] [facility] [id number] [place] [address]- 2306 Jun, [facility] [place] [facility] [address] [id number] [address]- 8968 Jun, [facility] [place] [facility] [address] [id number], [place] [address]- 7872 Jun, [facility] [place] [facility] [address] [id number] [place] [address]- 7216 Jun, [facility] [place] [facility] [address] [facility] [id number] [place] [address]- 7227 Jun, [facility] [place] [facility] [address] [facility] [id number] [place] [address]- 5557 30 May, 2014 [facility] [place] [facility] [address] [id number] [place] [address]- 4314 30 May, 2013 [facility] [place] [facility] [address] [id number] [place] [address]- 2416 May, 2013 [facility] [place] [facility] [address] [id number] [place] [address]- 7326 May, 2013 [facility] [place] [facility] [address] [id number] [place] [address]- 1806 May, 2013 [facility] [place] [facility] [address] [id number] [place] [address]- 9045 May, 2013 [facility] [place] [facility] [address] [id number] [place] [address]- 0265 May, [facility] [place] [facility] [address] [id number] [place] [address]- 5336 May, [facility] [place] [facility] [address] [id number] [place] [address]- 5374 Apr, [facility] [place] [facility] [address] [id number] [place] [address]- 2023 Apr, [facility] [place] [facility] [address] [id number] [place] [address]- 0264 Apr, [facility] [place] [facility] [address] [id number] [place] [address]- 3140 Apr, [facility] [place] [facility] [address] [id number] [place] [address]- 8432 Apr, [facility] [place] [facility] [address] [id number] [place] [address]- 2545 Apr, [facility] [place] [facility] [address] [id number] [place] [address]- 6459 Apr, [facility] [place] [facility] [address] [id number] [place] [address]- 0755 Apr, [facility] [place] [facility] [address] [id number] [place] [address]- 7684 Apr, [facility] [place] [facility] [address] [id number] [place] [address]- 7523 Mar, [facility] [place] [facility] [address] [id number] [place] [address]- 3831 Mar, [facility] [place] [facility] [address] [id number] [place] [address]- 4017 Mar, [facility] [place] [facility] [address] [id number] [place] [address]- 7737 Mar, [facility] [place] [facility] [address] [id number] [place] [address]- 1951 Mar, [facility] [place] [facility] [address] [id number] [place] [address]- 7486 Mar, [facility] [place] [facility] [address] [id number] [place] [address]- 1152 Feb, [facility] [place] [facility] [address] [id number] [place] [address]- 9881 Feb, [facility] [place] [facility] [address] [id number] [place] [address]- 3640 Feb, [facility] [place] [facility] [address] [id number] [place] [address]- 4476 January, [facility] [place] [facility] [address] [id number] [place] [address]- 0330 January, [facility] [place] [facility] [address] [id number] [place] [address]- 7483 January, [facility] [place] [facility] [address] [id number] [place] [address]- 9727 January, [facility] [place] [facility] [address] [id number] [place] [address]- 3795 January, [facility] [place] [facility] [address] [id number] [place] [address]- 3326 January, [facility] [place] [facility] [address] [id number] [place] [address]- 5263 Dec, [facility] [place] [facility] [address] [id number] [place] [address]- 7411 Dec, [facility] [place] [facility] [address] [id number] [place] 4766 Dec, [facility] [place] [facility] [address] [id number] [place] [address]- 5703 Dec, [facility] [place] [facility] [address] [id number] [place] 7247 Nov, [facility] [place] [facility] [address] [id number] [place] [address]- 1608 Nov, [facility] [place] [facility] [address] [id number] [place] [address]- 5208 Oct, [facility] [place] [facility] [address] [id number] [place] [address]- 8755 Oct, [facility] [place] [facility] [address] [id number] [place] [address]- 2057 Sep, [facility] [place] [facility] [address] [id number] [place] [address]- 7842 Sep, [facility] [place] [facility] [address] [id number] [place] [address]- 4266 Aug, [facility] [place] [facility] [address] [id number] [place] [address]- 6933 Aug, [facility] [place] [facility] [address] [id number] [place] [address]- 4631 Aug, [facility] [place] [facility] [address] [id number] [place] 3698 Jul, [facility] [place] [facility] [address] [id number] [place] [address]- 2598 Jul, [facility] [place] [facility] [address] [id number] [place] [address]- 8121 Jul, [facility] [place] [facility] [address] [id number] [place] [address]- 5624 Jul, [facility] [place] [facility] [address] [id number] [place] [address]- 1812 Jul, [facility] [place] [facility] [address] [id number] [place] [address]- 1578 May, [facility] [place] [facility] [address] [id number] [place] [address]- 0986 May, [facility] [address] [id number] [place] [address]- 2935 Apr, [facility] [place] [facility] [address] [id number] [place] [address]- 6926 Apr, [facility] [address] [id number] [place] [address]- 2522 Mar, [facility] [address] [id number] [place] [address]- 9283 Mar, [facility] [place] [facility] [address] [id number] [place] [address]- 9034 Mar, [facility] [place] [facility] [address] [id number] [place] [address]- 6353 Mar, [facility] [place] [facility] [address] [id number] [place] [address]- 6291 Feb, [facility] [place] [facility] [address] [id number] [place] [address]- 1274 Feb, [facility] [place] [facility] [address] [id number] [place] [address]- 7330 Feb, [facility] [place] [facility] [address] [id number] [place] [address]- 1720 Feb, [facility] [place] [facility] [address] [id number] [place] [address]- 7425 Feb, [facility] [place] [facility] [address] [id number] [place] [address]- 2172 January, [facility] [address] [id number] [place] [address]- 1521 January, [facility] [address] [id number] [place] [address]- 9143 January, [facility] [address] [id number] [place] [address]- 4120 January, [facility] [address] [id number] [place] [address] Dec, [facility] [address] [id number] [place] [address] Dec, [facility] [address] [id number] [place] [address] Dec, [facility] [address] [id number] [place] [address] Dec, [facility] [address] [id number] [place] [address] Nov, [facility] [address] [id number] [place] [address] Nov, [facility] [address] [id number] [place] [address] Oct, [facility] [address] [id number] [place] [address] Aug, [facility] [place] [facility] [address] [id number] [place] [address] Aug, [facility] [place] [facility] [address] [id number] [place] [address] Dec, [facility] [place] [facility] [address] [id number] [place] [address] Dec, [facility] [place] [facility] [address] [id number] [place] [address] Dec, [facility] [place] [facility] [address] [id number] [place] [address] 26 Nov, 2011 [facility] [address] [id number] [place] [address] 15 Nov, 2011 [facility] [place] [facility] [address] [id number] [place] [address] Oct, [facility] [place] [facility] [address] [id number] [place] [address] Oct, [facility] [place] [facility] [address] [id number] [place] [address] Oct, [facility] [place] [facility] [address] [id number] [place] [address] 24 Sep, 2011 [facility] [place] [facility] [address] [id number] [place] [address] 24 Sep, 2011 [facility] [address] [id number] [place] [address] 18 Sep, 2011 [facility] [place] [facility] [address] [id number] [place] [address] 17 Sep, 2011 [facility] [place] [facility] [address] [id number] [place] [address] Sep, [facility] [place] [facility] [address] [id number] [place] [address] Sep, [facility] [place] [facility] [address] [id number] [place] [address] Sep, [facility] [place] [facility] [address] [id number] [place] [address] 09 Sep, 2011 [facility] [place] [facility] [address] [id number] [place] [address] Jul, [facility] [place] [facility] [address] [id number] [place] [address] 15 Jul, 2011 [facility] [place] [facility] [address] [id number] [place] [address] 15 Jul, 2011 [facility] [address] [id number] [place] [address] 14 Nov, 2010 [facility] [place] [facility] [address] [id number] [place] [address] 17 Aug, 2010 [facility] [place] [facility] [address] [id number] [place] [address] 17 Aug, 2010 [facility] [place] [facility] [address] [id number] [place] [address] 16 Aug, 2010 [facility] [place] [facility] [address] [id number] [place] [address] 15 Aug, 2010 [facility] [place] [facility] [address] [id number] [place] [address] 09 Aug, 2010 [facility] [place] [facility] [address] [id number] [place] [address] Jul, [facility] [place] [facility] [address] [id number], [place] [address] 12 Jun, 2010 [facility] [place] [facility] [address] [id number], [place] [address] Jun, [facility] [place] [facility] [address] [id number], [place] [address] Sep, [facility] [place] [facility] [address] [id number], [place] [address] 28 Aug, 2009 [facility] [place] [facility] [address] [id number], [place] [address] 09 Aug, 2009 [facility] [place] [facility] [address] [id number], [place] [address] 08 Aug, 2009 [facility] [place] [facility] [address] [id number], [place] [address] 14 Jun, 2009 [facility] [place] [facility] [address] [id number], [place] [address] 14 Jun, 2009 [facility] [place] [facility] [address] [facility] [id number] [place] [address] 14 May, 2009 [facility] [address] [facility] [id number], [place] [address] Apr, [facility] [address] [facility] [id number], [place] [address] Mar, [facility] [address] [facility] [id number], [place] [address] January, [facility] [address] [facility] [id number], [place] [address] Oct, IMMUNIZATIONS No Known Immunizations SOCIAL HISTORY Never Assessed REASON FOR VISIT Requests return call PLAN OF CARE VITAL SIGNS MEDICATIONS Unknown [...] Medical History Diabetic neropothy Surgical History cholecystectomy 2015 Surgical History testicular surgery at age 1 Hospitalization History [facility] for diabetes 09/2011 Hospitalization History [facility] diabetic issues 09/2015 Hospitalization History [facility] Pneumonia 01/2016 Hospitalization History celluitis of the left upper thigh-F [facility] 04/2017 Hospitalization History [facility]-inpatient psych 4 day stay 2013 Hospitalization History [facility]- Shaking, unsure of blood sugar level 11/20/2017
--- OUTSIDE RECORDS SUMMARY | 2018-07-05 10:42 | XMS REPORT ---
Author Author SHRADDHA CISNEROS [facility] Address [address] [place] [address] Care Team Providers Care Board Liner Operator Name Role Phone SHRADDHA CISNEROS Unavailable PROBLEMS Type Condition ICD9-CM Code PQI25-VB Code Onset Dates Condition Status SNOMED Code Problem Other male erectile dysfunction N52.8 Active 459477277 Problem Diabetes type 2, controlled E11.9 Active 74659304 Problem Obesity, unspecified E66.9 Active 872711943 Problem Gastro-esophageal reflux disease with esophagitis K21.0 Active 704853949 Problem Insomnia, unspecified G47.00 Active 163004307 Problem Anxiety F41.9 Active 46947231 Problem 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 Active 55739031 Problem Hypertriglyceridemia E78.1 Active 502125377 Problem Generalized anxiety disorder F41.1 Active 87725144 Problem Chronic fatigue R53.82 Active 96753254 Problem Type 2 diabetes mellitus 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 E11.9 Active 288644867 Problem BMI 45.0-49.9, adult Z68.42 Active 407601915 Problem Other chronic pain G89.29 Active 68326926 Problem Morbid obesity due to excess calories E66.01 Active 868845704 Problem Type 2 diabetes mellitus with hyperglycemia E11.65 Active 299772084 Problem Hypertension I10 Active 92020774 Problem Diabetes type 2, uncontrolled E11.65 Active 913406385 Problem Mild episode of recurrent major depressive disorder F33.0 Active 256488644 Problem Type 2 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 Active 58304502 Problem Hypogonadism in male E29.1 Active 83098656 Problem Seasonal allergies J30.2 Active 512774274 Problem Controlled type 2 diabetes mellitus without complication, without long -term current use of insulin E11.9 Active 659111513 Problem Diabetic polyneuropathy associated with type 2 diabetes mellitus E11.42 Active 69602466 Problem Polyneuropathy G62.9 Active 11840916 Problem 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 Active 492736593 Problem 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 Active 905730222 Problem Diverticulitis of small intestine without perforation or abscess without bleeding K57.12 Active 44985028 Problem GERD without esophagitis K21.9 Active 556030347 Problem Type 2 diabetes mellitus with hyperglycemia E11.65 Active 440389916 ALLERGIES Substance Reaction Event Type Date Status Zoloft hives adverse reaction Drug Allergy Apr, Active Wellbutrin "out of it" Drug Allergy Apr, Active Clindamycin HCl itching Drug Allergy Apr, Active BuSpar local swelling Drug Allergy Apr, Active ENCOUNTERS Encounter Location Date Diagnosis [facility] [address] 21553- [address]200 Aug, [facility] [address] 44763- 7073 Jun, [place] [address] 62042- 5459 May, [facility] [address] 99529- 1289 May, 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 ; Generalized anxiety disorder F41.1 and BMI 45.0-49.9, adult Z68.42 [facility] [address] 87542- 9113 May, Uncontrolled type 2 diabetes mellitus with hyperglycemia E11.65 [place] [address] [place] [id number] [place] [address] 85015- 6053 May, Uncontrolled type 2 diabetes mellitus with hyperglycemia E11.65 ; BMI 45.0-49.9, adult Z68.42 and Colitis K52.9 [facility] [address] [place] [id number] [place] [address] 11495- 6670 May, [place] [address] 86881- 4871 May, [facility] [address] [place] [place] [id number] [place] [address] 18245 -4703 Apr, Colitis K52.9 ; Abdominal discomfort R10.9 and Anxiety F41.9 [place] [address] [place] [id number] [place] [address] 46462- 1079 Apr, [place] [address] 29640- 5671 Apr, Colitis K52.9 and BMI 45.0-49.9, adult Z68.42 [place] [address] 51361- 1045 Apr, Diabetes type 2, uncontrolled E11.65 [place] [address] 00573- 3864 Apr, 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 ; Generalized anxiety disorder F41.1 and BMI 45.0-49.9, adult Z68.42 [place] [address] 87059- 6301 Apr, [place] [address] 36880- 0419 Apr, BMI 45.0-49.9, adult Z68.42 [place] [address] 03655- 0027 Apr, Candidiasis B37.9 ; Pain in right shoulder M25.511 ; Pain in left shoulder M25.512 ; Other chronic pain G89.29 and Morbid obesity due to excess calories E66.01 [place] [address] 61178- 7156 Apr, Hypogonadism in male E29.1 [facility] [address] [place] [id number] [place] [address] 76637 -8931 Mar, Yeast dermatitis B37.2 and Sensation of foreign body in throat R09.89 [facility] [address] [place] [id number] [place] [address] 63007- 1648 Mar, [facility] [address] 72423- 0524 Mar, Hypogonadism in male E29.1 [facility] [address] [place] [id number] [place] [address] 20179- 7158 Mar, Hypogonadism in male E29.1 [place] [address] [place] [id number] [place] [address] 62071- 0873 Mar, [place] [address] [place] [id number] [place] [address] 66198- 0045 Mar, Diabetes type 2, uncontrolled E11.65 and Hypogonadism in male E29.1 [place] [address] [place] [id number] [place] [address] 00479- 8102 Mar, [place] [address] [place] [id number] [place] [address] 42316- 4624 Feb, Diabetes type 2, controlled E11.9 ; Myalgia M79.1 and BMI 45.0-49.9, adult Z68.42 [facility] [place] [address] [place] [id number] [place] [address] 92347 -4270 Feb, Hematuria, unspecified type R31.9 ; Side pain R10.9 and Rash R21 [place] [address] [place] [id number] [place] [address] 64333- 7471 January, [place] [address] [place] [id number] [place] [address] 27439- 4398 January, [place] [address] [place] [id number] [place] [address] 02850- 3035 January, [facility] [address] [place] [id number] [place] [address] 15994 -3171 January, Seasonal allergies J30.2 and BMI 45.0-49.9, adult Z68.42 [place] [address] [place] [id number] [place] [address] 12039- 5222 January, Chronic fatigue R53.82 ; Mild episode of recurrent major depressive disorder F33.0 and Polyneuropathy G62.9 [place] [address] [place] [id number] [place] [address] 87495- 6581 January, Chronic fatigue R53.82 ; BMI 45.0-49.9, adult Z68.42 and Anxiety F41.9 [facility] [address] [place] [id number] [place] [address] 25793- 0202 January, Generalized anxiety disorder F41.1 [facility] [address] [place] [id number] [place] [address] 92204- 2781 Dec, 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 ; Generalized anxiety disorder F41.1 ; High risk medication use Z79.899 and BMI 45.0-49.9, adult Z68.42 [place] [address] [place] [id number] [place] [address] 93839- 1005 Dec, [facility] [address] [place] [id number] [place] [address] [id number] Dec, Encounter for dental examination Z01.20 [facility] [address] [place] [id number] [place] [address] 30102- 9726 Dec, Mild episode of recurrent major depressive disorder F33.0 ; Type 2 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 and [facility] 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.4 [place] [address] [place] [id number] [place] [address] 50236- 3242 Nov, [facility] [address] [place] [address] 16119- 5113 Nov, BMI 45.0-49.9, adult Z68.42 ; 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 and Generalized anxiety disorder F41.1 [facility] [address] [place] [address] 38968- 5762 Nov, Type 2 diabetes mellitus 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 E11.9 and [facility] 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.4 [facility] [address] [place] [address] [phone] Oct, Dental examination Z01.20 and Dental caries K02.9 [facility] [address] [place] [id number] [place] [address] 21325- 7881 Oct, [place] [address] [place] [address] 71143- 2621 Oct, BMI 45.0-49.9, adult Z68.42 ; 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 and Generalized anxiety disorder F41.1 [place] [address] [place] [id number] [place] [address] 32935- 8918 Oct, [place] [address] [place] [id number] [place] [address] 10698- 0624 Oct, [place] [address] [place] [id number] [place] [address] 03678- 0313 Oct, Hypertriglyceridemia E78.1 [place] [address] [place] [id number] [place] [address] 51272- 0173 Oct, Hypertriglyceridemia E78.1 [place] [address] [place] [id number] [place] [address] 87915- 5079 Sep, Controlled type 2 diabetes mellitus without complication, without long-term current use of insulin E11.9 [place] [address] [place] [id number] [place] [address] 99495- 7834 Sep, [place] [address] [place] [id number] [place] [address] 79795- 5502 Sep, Controlled type 2 diabetes mellitus without complication, without long-term current use of insulin E11.9 [place] [address] [place] [address] 44146- 6544 Sep, [place] [address] [place] [id number] [place] [address] 38095- 3487 Sep, [place] [address] [place] [id number] [place] [address] 67185- 9857 Sep, BMI 45.0-49.9, adult Z68.42 ; Diabetic polyneuropathy associated with type 2 diabetes mellitus E11.42 and Chronic fatigue R53.82 [place] [address] [place] [id number] [place] [address] 80093- 7515 Sep, [facility] [address] [place] [id number] [place] [address] 04836- 9431 Sep, Hypertriglyceridemia E78.1 [facility] [address] [place] [id number] [place] [address] 56634- 1281 Aug, [facility] [address] [place] [id number] [place] [address] 95342- 2745 Aug, Generalized anxiety disorder F41.1 [facility] [address] [place] [id number] [place] [address] 62503- 6381 Aug, [facility] [address] [place] [id number] [place] [address] 09676- 0473 Aug, Hypertriglyceridemia E78.1 [facility] [address] [place] [id number] [place] [address] 55942- 6159 Jul, [facility] [address] [place] [id number] [place] [address] 78400- 6119 Jul, [facility] [address] [place] [id number] [place] [address] 96914- 0211 Jul, Generalized anxiety disorder F41.1 ; 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 ; BMI 45.0-49.9, adult Z68.42 and Patient's noncompliance with other medical treatment and regimen Z91.19 [place] [address] [place] [id number] [place] [address] 19041- 2671 Jul, Diabetes type 2, uncontrolled E11.65 ; Diabetic polyneuropathy associated with type 2 diabetes mellitus E11.42 ; Abdominal pain , right upper quadrant R10.11 and Low back pain radiating to left lower extremity M54.5 [facility] [address] [place] [id number] [place] [address] 14618- 4227 Jul, Generalized anxiety disorder F41.1 [facility] [address] [place] [id number] [place] [address] 67879- 1840 Jul, [facility] [address] [place] [id number] [place] [address] 15679- 9935 Jul, Hypertriglyceridemia E78.1 [place] [address] 63414- 0710 Jul, Controlled type 2 diabetes mellitus without complication, without long-term current use of insulin E11.9 [place] [address] [place] [id number] [place] [address] 73972- 8762 Jun, [place] [address] 81799- 1192 Jun, Hypertriglyceridemia E78.1 [place] [address] 330914- 1889 Jun, Controlled type 2 diabetes mellitus without complication, without long-term current use of insulin E11.9 [place] [address] 86348- 8645 Jun, Generalized anxiety disorder F41.1 [place] [address] 77887- 6418 Jun, Candidiasis B37.9 [place] [address] 85895- 6941 May, [place] [address] [place] [id number] [place] [address] 39382- 6154 18 May, 2017 Controlled type 2 diabetes mellitus without complication, without long-term current use of insulin E11.9 [place] [address] [place] [id number] [place] [address] 55132- 4606 14 May, 2017 Hypertriglyceridemia E78.1 [place] [address] [place] [id number] [place] [address] 42375- 6185 14 May, 2017 Hypertriglyceridemia E78.1 [place] [address] 24642- 6049 14 May, 2017 Hypertriglyceridemia E78.1 and Hypotestosteronemia E34.9 [place] [address] 01074- 7316 May, Generalized anxiety disorder F41.1 [facility] [address] [place] [address] 97348- 7612 05 May, 2017 [facility] [address] [place] [id number] [place] [address] 55290 -6380 May, Abscess and cellulitis L03.90 [facility] [address] [place] [id number] [place] [address] [id number] Apr, [facility] [address] [place] [id number] [place] [address] 84132- 6929 Apr, [place] [address] 86443- 2780 Apr, Dermatofibroma of back D23.5 [facility] [address] [place] [id number] [place] [address] 33680 -4520 Apr, Muscle strain of left thigh, initial encounter S76.912A [facility] [address] [place] [id number] [place] [address] 30064- 4302 Apr, [place] [address] [place] [id number] [place] [address] 66024- 4809 Apr, Generalized anxiety disorder F41.1 [place] [address] [place] [id number] [place] [address] 39811- 0737 Apr, Polyneuropathy G62.9 [place] [address] [place] [id number] [place] [address] 82374- 9009 Apr, GERD without esophagitis K21.9 [place] [address] [place] [id number] [place] [address] 77754- 6710 Apr, Generalized anxiety disorder F41.1 ; Diastasis recti M62.08 and Controlled type 2 diabetes mellitus without complication, without long-term current use of insulin E11.9 [place] [address] [place] [address] 58884- 0458 Apr, Generalized anxiety disorder F41.1 ; 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 and Controlled type 2 diabetes mellitus without complication, without long-term current use of insulin E11.9 [place] [address] [place] [id number] [place] [address] 94819- 7970 Mar, Generalized anxiety disorder F41.1 ; Diastasis recti M62.08 and Controlled type 2 diabetes mellitus without complication, without long-term current use of insulin E11.9 [place] [address] [place] [id number] [place] [address] 56553- 9717 Mar, Controlled type 2 diabetes mellitus without complication, without long-term current use of insulin E11.9 [place] [address] [place] [id number] [place] [address] 23861- 9941 Mar, Generalized anxiety disorder F41.1 [place] [address] 49846- 9959 Mar, Generalized anxiety disorder F41.1 [place] [address] 38442- 5831 Mar, Generalized anxiety disorder F41.1 [place] [address] [place] [id number] [place] [address] 34512- 3695 Mar, Generalized anxiety disorder F41.1 [place] [address] 28377- 1519 Feb, Controlled type 2 diabetes mellitus without complication, without long-term current use of insulin E11.9 [place] [address] [place] [id number] [place] [address] 98945- 1645 Feb, Controlled type 2 diabetes mellitus without complication, without long-term current use of insulin E11.9 and Tinea cruris B35.6 [place] [address] [place] [id number] [place] [address] 82284- 2608 Feb, Diabetes type 2, controlled E11.9 [facility] [address] [id number] Feb, Dental examination Z01.20 [facility] [address] [place] [address]- 8690 Feb, Dental examination Z01.20 [facility] [address] [place] [id number] [place] [address] 92030- 8337 Feb, Generalized anxiety disorder F41.1 [facility] [address] [place] [id number] [place] [address] 24280 -3654 Feb, Muscle spasm M62.838 and Diabetes type 2, controlled E11.9 [facility] [address] [place] [id number] [place] [address] 22710- 5734 Feb, Type 2 diabetes mellitus with hyperglycemia E11.65 [facility] [address] [id number] Feb, Dental examination Z01.20 [facility] [address] [id number] Feb, Encounter for dental examination Z01.20 [facility] [address] [place] [id number] [place] [address] 12712- 8115 Feb, Diabetes type 2, controlled E11.9 [facility] [address] [place] [id number] [place] [address] 81395- 1445 Feb, Type 2 diabetes mellitus with hyperglycemia E11.65 [facility] [address] [place] [id number] [place] [address] 22541- 9521 Feb, [facility] [address] [place] [id number] [place] [address] 21717- 0065 Feb, Controlled type 2 diabetes mellitus without complication, without long-term current use of insulin E11.9 [facility] [address] [place] [id number] [place] [address] 43517- 3723 January, Candidiasis B37.9 [facility] [address] [place] [id number] [place] [address] 24102- 1247 January, Type 2 diabetes mellitus with hyperglycemia E11.65 ; Hypertension I10 and Anxiety F41.9 [facility] [address] 46601- 8573 January, Type 2 diabetes mellitus with hyperglycemia E11.65 [facility] [address] [place] [id number] [place] [address] 44045- 3105 January, Controlled type 2 diabetes mellitus without complication, without long-term current use of insulin E11.9 [place] [address] [id number] [place] [address] 89599- 1656 January, Generalized anxiety disorder F41.1 ; 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 ; Foot callus L84 and Controlled type 2 diabetes mellitus without complication, without long-term current use of insulin E11.9 [place] [address] [id number] [place] [address] 19984- 1845 Dec, [place] [address] [place] [id number] [place] [address] 13464- 6339 Dec, [place] [address] 59384- 2996 Dec, Foot callus L84 and Rash R21 [place] [address] [place] [id number] [place] [address] 50202- 7688 Dec, Controlled type 2 diabetes mellitus without complication, without long-term current use of insulin E11.9 [place] [address] [place] [id number] [place] [address] 20533- 3325 Nov, [facility] [id number] [place] [address] 93862 -5600 Nov, Sore throat J02.9 and Strep pharyngitis J02.0 [facility] [address] [id number] [place] [address] 74942- 6061 Nov, Generalized anxiety disorder F41.1 [place] [address] [place] [id number] [place] [address] 84677- 1572 Nov, [place] [address] [place] [id number] [place] [address] 82112- 2057 Nov, [facility] [address] [place] [id number] [place] [address] 05791- 8683 Nov, Type 2 diabetes mellitus with hyperglycemia E11.65 [facility] [address] [place] [address] 88955- 8188 Nov, Diabetes type 2, uncontrolled E11.65 and Localized edema R60.0 [facility] [address] [place] [address] 15831- 6308 Nov, Controlled type 2 diabetes mellitus without complication, without long-term current use of insulin E11.9 [facility] [address] [place] [id number] [place] [address] 58752- 4861 Oct, Generalized anxiety disorder F41.1 and 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 [place] [address] [id number] [place] [address] 72583- 4482 Oct, [place] [address] [address] [id number] [place] [address] 38170- 3837 Oct, Type 2 diabetes mellitus with hyperglycemia E11.65 [facility] [address] [place] [id number] [place] [address] 32931- 2825 Oct, Type 2 diabetes mellitus with hyperglycemia E11.65 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 [facility] [id number] [place] [address] 58030- 1382 Oct, [facility] [address] [place] [address] 89633- 8067 Oct, [facility] [id number] [place] [address] [id number] Oct, Encounter for dental examination Z01.20 [facility] [id number] [place] [address] 56318- 7878 Sep, [facility] [id number] [place] [address] 58532- 7646 Sep, Diabetes type 2, controlled E11.9 [facility] [address] [place] [address] 32376 -1001 Sep, Abdominal pain R10.9 and Diverticulitis of small intestine without perforation or abscess without bleeding K57.12 [place] [id number] [place] [address] 10753- 8198 Sep, [place] [address] [id number] [place] [address] 28844- 8626 Sep, Diabetes type 2, controlled E11.9 [place] [address] 54047- 9790 Sep, Controlled type 2 diabetes mellitus without complication, without long-term current use of insulin E11.[address] 29301- 3347 Sep, Type 2 diabetes mellitus 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 E11.9 and [facility] 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.4 [facility] [place] [address] 42349 -2047 Aug, Lower abdominal pain R10.30 ; GERD without esophagitis K21.9 and Candidiasis of skin B37.2 [place] [id number] [place] [address] 53992- 4024 Aug, Controlled type 2 diabetes mellitus without complication, without long-term current use of insulin E11.9 and Diabetic polyneuropathy associated with type 2 diabetes mellitus E11.42 [place] [id number] [place] [address] 24253 -4470 Jul, Kelly infection of genital region B37.49 and Diabetes type 2, controlled E11.9 [place] [id number] [place] [address] 50060- 6921 Jul, Controlled type 2 diabetes mellitus without complication, without long-term current use of insulin E11.9 ; 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 and Acute pharyngitis due to other specified organisms J02.8 [facility] [place] [id number] [place] [address] 00596 -7755 Jul, Acute upper respiratory infection, unspecified J06.9 and Other viral agents as the cause of diseases classified elsewhere B97.89 [facility] [id number] [phone] 19 Jun, 2016 Generalized anxiety disorder F41.1 [facility] [address] [id number] [place] [phone] 14 Jun, 2016 [facility] [id number] [place] [phone] 13 Jun, 2016 Diabetes type 2, controlled E11.9 and Polyneuropathy G62.9 [facility] [address] [id number] [place] [address] 43099- 0262 28 May, 2016 [facility] [id number] [place] [address] 39733- 3696 28 May, 2016 Generalized anxiety disorder F41.1 [facility] [id number] [place] [address] 88877- 5708 15 May, 2016 Polyneuropathy G62.9 [facility] [id number] [place] [address] 21246- 9075 May, [facility] [id number] [place] [address] 13692- 4593 Apr, Anxiety disorder, unspecified F41.9 [facility] [id number] [place] [address] 77636- 5609 Mar, Abdominal pain, unspecified abdominal location R10.9 ; Type 2 diabetes mellitus with hyperglycemia E11.65 ; 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 and Diabetic polyneuropathy associated with type 2 diabetes mellitus E11.42 [facility] [id number] [place] [address] 81933- 2932 Mar, Generalized anxiety disorder F41.1 [facility] [id number] [place] [address] 69623- 1612 Mar, Generalized abdominal pain R10.84 and Other male erectile dysfunction N52.8 [facility] [id number] [place] [address] 41585 -7841 Mar, [facility] [id number] [place] [address] 74424- 6751 Feb, Generalized anxiety disorder F41.1 [facility] [address] 35399- 1935 Feb, Abdominal cramping R10.9 ; Acute bilateral low back pain without sciatica M54.5 and Malaise R53.81 [facility] [address] 34299 -9251 Feb, Candidiasis B37.9 and Costochondritis M94.0 [facility] [address] 07292 -4055 Feb, Allergic rhinitis, unspecified allergic rhinitis type J30.9 [facility] [address] 12118- 0356 Feb, Generalized anxiety disorder F41.1 [facility] [address] 72277- 6042 Feb, [facility] [address] 29261- 4355 Feb, Major depressive disorder, recurrent, moderate F33.1 [facility] [id number] [place] [address] 35605- 8196 Feb, Generalized anxiety disorder F41.1 [facility] [address] 39044- 9189 January, Unspecified infectious disease B99.9 [facility] [id number] [place] [address] [id number] January, Dental examination Z01.20 [facility] [address] 29230- 7711 January, [facility] [address] 13852- 5765 January, Diabetes type 2, uncontrolled E11.65 [facility] [address] [address] January, Wheezing R06.2 and History of pneumonia Z87.01 [facility] [id number] [place] [address] 36302- 3626 January, [facility] [id number] [place] [address] 62223- 1970 January, Depression, major, recurrent, moderate F33.1 [facility] [id number] [place] [address] 42651- 9796 January, [facility] [id number] [place] [address] 63750- 1826 January, Depression, major, recurrent, moderate F33.1 [facility] [id number] [place] [address] 24218- 6827 January, [facility] [id number] [place] [address] 53387- 2363 Dec, Depression, major, recurrent, moderate F33.1 [facility] [id number] [place] [address] 06773- 5813 Dec, Dental examination Z01.20 [facility] [id number] [place] [address] [id number] Dec, Dental examination Z01.20 [facility] [id number] [place] [address] 78542- 0089 Dec, Generalized anxiety disorder F41.1 [facility] [id number] [place] [address] 63116- 2312 Dec, Generalized anxiety disorder F41.1 [facility] [id number] [place] [address] 00774- 3966 Nov, [facility] [id number] [place] [address] 25217- 1114 Nov, [facility] [id number] [place] [address]- 9721 Nov, Generalized anxiety disorder F41.1 [facility] [id number] [place] [address] [id number] 24 Nov, 2015 Dental examination Z01.20 [facility] [id number] [place] [address] 47453- 3325 Nov, [facility] [address] 78702- 6998 Nov, Generalized anxiety disorder F41.1 and 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 [facility] [id number] [place] [address] 348869- 1696 Nov, Depression, major, recurrent, moderate F33.1 [facility] [id number] [place] [address] 33612- 5188 Nov, [facility] [address] 60150- 8978 Nov, Diabetes type 2, uncontrolled E11.65 and Hypertension I10 [facility] [id number] [place] [address] [id number] 14 Nov, 2015 Dental examination Z01.20 [facility] [id number] [place] [address] 59124- 9390 03 Nov, 2015 [facility] [id number] [place] [address] 35968- 4341 Nov, Depression, major, recurrent, moderate F33.1 [facility] [address] [place] [address] 42716 -4315 Nov, Penile abrasion S30.812A [facility] [id number] [place] [address] 60562- 8068 Oct, Generalized anxiety disorder F41.1 [facility] [address] [place] [address] 37634- 0759 Oct, Depression, major, recurrent, moderate F33.1 [facility] [id number] [place] [address] 13389- 7549 Oct, Diabetes type 2, controlled E11.9 and Malaise R53.81 [facility] [id number] [place] [address] 09349- 4646 17 Oct, 2015 [facility] [id number] [place] [address] 27346- 3956 16 Oct, 2015 [facility] [address] 45090- 5991 Oct, [facility] [address] 22430- 5022 Oct, Depression, major, recurrent, moderate F33.1 [facility] [id number] [place] [address] 01575- 1504 Oct, Generalized anxiety disorder F41.1 and 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 [facility] [id number] [place] [address] 68106- 1251 Oct, [facility] [id number] [place] [address] 35233- 3458 Oct, Major depressive disorder, recurrent, moderate F33.1 [facility] [id number] [place] [address] 40141- 8649 Oct, [facility] [id number] [place] [address] 01966- 2548 Oct, [facility] [id number] [place] [address] 14183- 2545 Oct, Generalized anxiety disorder F41.1 [facility] [id number] [place] [address] 19478- 2546 Oct, [facility] [id number] [place] [address] 24083- 6695 Oct, Back muscle spasm M62.830 [facility] [address] [place] [address] 69272- 9662 04 Oct, 2015 Major depressive disorder, recurrent, moderate F33.1 [facility] [id number] [place] [address] 65496 -0261 Sep, Back muscle spasm M62.830 ; Allergic rhinitis J30.9 and Person with feared health complaint in whom no diagnosis is made Z71.1 [facility] [id number] [place] [address] 77947- 3983 Sep, Generalized anxiety disorder F41.1 [facility] [id number] [place] [address] 61074 -2820 Sep, [facility] [id number] [place] [address] 64844- 7905 Sep, [facility] [id number] [place] [address] 94316- 7796 Sep, Mood disorder F39 ; Diabetes type 2, controlled E11.9 ; Morbid obesity due to excess calories E66.01 and Edema, unspecified type R60.9 [facility] [id number] [place] [address] 81804- 7355 Sep, Generalized anxiety disorder F41.1 [facility] [id number] [place] [address] 79401- 1113 Sep, [facility] [id number] [place] [address] 03300- 7602 Sep, Adjustment disorder with mixed anxiety and depressed mood F43.23 and Depression F32.9 [facility] [id number] [place] [address] 47295- 7672 Sep, Generalized anxiety disorder F41.1 [facility] [id number] [place] [address] 16500- 1881 Sep, Generalized anxiety disorder 300.02 and Autism spectrum disorder F84.[address] [id number] [id number] Aug, Encounter for dental examination Z01.20 [facility] [address] [address]- 8462 Aug, [facility] [id number] [place] [address] 22734 -1078 Jul, Candidiasis B37.9 [facility] [id number] [place] [address] 80068- 2647 Jul, [facility] [place] [id number] [facility] [address] [id number] [id number] Jul, Encounter for dental examination Z01.20 [facility] [id number] [place] [address] 54082- 8742 Jul, [facility] [id number] [place] [address] 41635- 4214 Jun, [facility] [id number] [place] [address] 86916- 0181 May, Diabetes type 2, controlled 250.00 and Neuropathy 355.9 [facility] [id number] [place] [address] 38902- 1475 May, [facility] [id number] [place] [address] 09274- 5331 Apr, Generalized anxiety disorder 300.02 and Autism spectrum disorder 299.00 [facility] [id number] [place] [address] 68809- 6339 Apr, Abrasion, foot 917.0 ; Chest pain 786.50 and Back pain 724.5 [facility] [id number] [place] [address] 90223- 6178 Apr, Generalized anxiety disorder 300.02 [facility] [id number] [place] [address] 42939- 9106 Feb, Anxiety state, unspecified 300.00 [facility] [id number] [place] [address] 18930- 9778 Feb, Diabetes mellitus without mention of complication, type II or unspecified type, not stated as uncontrolled 250.00 ; Generalized anxiety disorder 300.02 ; Morbid obesity 278.01 ; Benign essential hypertension 401.1 ; Chronic pain 338.29 ; Screen for STD (sexually transmitted disease) V74.5 ; Dysuria 788.1 and Kelly infection of genital region 112.2 [facility] [id number] [place] [address] 59809- 2546 Feb, [facility] [id number] [place] [address] 38060- 2546 January, Generalized anxiety disorder 300.02 and Autism spectrum disorder 299.00 [facility] [id number] [place] [address] 97043- 2546 Dec, [facility] [id number] [place] [address] 74200- 2546 Dec, [facility] [id number] [place] [address] 60648- 2546 Dec, [facility] [id number] [place] [address] 31812- 2546 Nov, [facility] [id number] [place] [address] [id number] Nov, [facility] [id number] [place] [address] 74813- 2546 Nov, [facility] [id number] [place] [address] 74204- 2546 Nov, [facility] [address] [id number] Nov, [facility] [id number] [place] [address] 32872- 2546 Oct, [facility] [id number] [place] [address] 15908- 2546 Jul, [facility] [id number] [place] [address] 99896- 6979 Jul, [facility] [place] [facility] [address] [id number] [place] [address]- 0752 Jul, [facility] [place] [facility] [address] [id number] [place] [address]- 4145 Jul, [facility] [place] [facility] [address] [id number] [place] [address]- 8658 Jul, [facility] [place] [facility] [address] [id number] [place] [address]- 7790 Jul, [facility] [place] [facility] [address] [id number] [place] [address]- 7463 Jul, [facility] [place] [facility] [address] [id number] [place] [address]- 6349 Jul, [facility] [place] [facility] [address] [id number] [place] [address]- 5395 Jul, [facility] [place] [facility] [address] [id number], [place] [address]- 9058 Jul, [facility] [place] [facility] [address] [id number] [place] [address]- 4603 Jun, [facility] [place] [facility] [address] [id number] [place] [address]- 0722 Jun, [facility] [place] [facility] [address] [id number], [place] [address]- 8714 Jun, [facility] [place] [facility] [address] [id number], [place] [address]- 0865 Jun, [facility] [place] [facility] [address] [id number], [place] [address]- 7810 Jun, [facility] [place] [facility] [address] [id number], [place] [address]- 8219 Jun, [facility] [place] [facility] [address] [id number], [place] [address]- 0442 Jun, [facility] [place] [facility] [address] [id number] [place] [address]- 2767 30 May, 2013 [facility] [place] [facility] [address] [id number] [place] [address] 2546 30 May, 2013 [facility] [place] [facility] [address] [id number] [place] [address] 2546 May, 2013 [facility] [place] [facility] [address] [id number] [place] [address] 2546 May, 2013 [facility] [place] [facility] [address] [id number] [place] [address] 2545 May, 2013 [facility] [place] [facility] [address] [id number] [place] [address]- 0421 May, 2013 [facility] [place] [facility] [address] [id number] [place] [address]- 4379 May, [facility] [place] [facility] [address] [id number] [place] [address]- 3114 May, 2013 [facility] [place] [facility] [address] [id number] [place] [address]- 5877 Apr, [facility] [place] [facility] [address] [id number] [place] [address] 2540 Apr, [facility] [place] [facility] [address] [id number] [place] [address]- 0272 Apr, [facility] [place] [facility] [address] [id number] [place] [address]- 2544 Apr, [facility] [place] [facility] [address] [id number] [place] [address]- 2548 Apr, [facility] [place] [facility] [address] [id number] [place] [address]- 9814 Apr, [facility] [place] [facility] [address] [id number] [place] [address]- 2544 Apr, [facility] [place] [facility] [address] [id number] [place] [address]- 1434 Apr, [facility] [place] [facility] [address] [id number] [place] [address]- 8672 Apr, [facility] [place] [facility] [address] [id number] [place] [address]- 0325 Mar, [facility] [place] [facility] [address] [id number] [place] [address]- 3343 Mar, [facility] [place] [facility] [address] [id number] [place] [address]- 0906 Mar, [facility] [place] [facility] [address] [id number] [place] [address]- 1475 Mar, [facility] [place] [facility] [address] [id number] [place] [address]- 4634 Mar, [facility] [place] [facility] [address] [id number] [place] [address]- 0098 Mar, [facility] [place] [facility] [address] [id number] [place] [address]- 8989 Feb, [facility] [place] [facility] [address] [id number] [place] [address]- 6126 Feb, [facility] [place] [facility] [address] [id number] [place] [address]- 3569 Feb, [facility] [place] [facility] [address] [id number] [place] [address]- 3533 January, [facility] [place] [facility] [address] [id number] [place] [address]- 4236 January, [facility] [place] [facility] [address] [id number] [place] [address]- 9749 January, [facility] [place] [facility] [address] [id number] [place] [address]- 9125 January, [facility] [place] [facility] [address] [id number] [place] [address]- 3130 January, [facility] [place] [facility] [address] [id number] [place] [address]- 4666 January, [facility] [place] [facility] [address] [id number] [place] [address]- 4997 Dec, [facility] [place] [facility] [address] [id number] [place] 7660 Dec, [facility] [place] [facility] [address] [id number] [place] [address]- 8776 Dec, [facility] [place] [facility] [address] [id number] [place] [address]- 4613 Dec, [facility] [place] [facility] [address] [id number] [place] [address]- 9913 Nov, [facility] [place] [facility] [address] [id number] [place] [address]- 1991 Nov, [facility] [place] [facility] [address] [facility] [id number] [place] [address]- 2029 Oct, [facility] [place] [facility] [address] [id number] [place] [address]- 5055 Oct, [facility] [place] [facility] [address] [facility] [id number] [place] [address]- 3407 Sep, [facility] [place] [facility] [address] [facility] [id number] [place] [address]- 1186 Sep, [facility] [place] [facility] [address] [id number] [place] [address]- 7028 Aug, [facility] [place] [facility] [address] [id number] [place] [address]- 4221 Aug, [facility] [place] [facility] [address] [id number] [place] [address]- 4362 Aug, [facility] [place] [facility] [address] [id number] [place] [address]- 5332 Jul, [facility] [place] [facility] [address] [facility] [id number] [place] 7249 Jul, [facility] [place] [facility] [address] [id number] [place] [address]- 2006 Jul, [facility] [place] [facility] [address] [id number] [place] [address]- 4599 Jul, [facility] [place] [facility] [address] [id number] [place] [address] 2546 Jul, [facility] [place] [facility] [address] [id number] [place] [address]- 7690 May, [facility] [place] [facility] [address] [id number] [place] [address]- 9311 May, [facility] [place] [facility] [address] [id number] [place] [address]- 0753 Apr, [facility] [place] [facility] [address] [id number] [place] [address]- 8656 Apr, [facility] [place] [facility] [address] [id number] [place] [address]- 9287 Mar, [facility] [place] [facility] [address] [id number] [place] [address]- 9687 Mar, [facility] [place] [facility] [address] [id number] [place] [address]- 7520 Mar, [facility] [place] [facility] [address] [id number] [place] [address]- 7504 Mar, [facility] [place] [facility] [address] [id number] [place] [address]- 7447 Feb, [facility] [place] [facility] [address] [id number] [place] [address]- 6778 Feb, [facility] [place] [facility] [address] [id number] [place] [address]- 7228 Feb, [facility] [place] [facility] [address] [id number] [place] [address]- 2546 Feb, [facility] [place] [facility] [address] [id number] [place] [address] Feb, [facility] [address] [id number] [place] [address] January, [facility] [address] [id number] [place] [address] January, [facility] [address] [id number] [place] [address] January, [facility] [address] [id number] [place] [address] January, [facility] [address] [id number] [place] [address] Dec, [facility] [address] [id number] [place] [address] Dec, [facility] [address] [id number] [place] [address] Dec, [facility] [address] [id number] [place] [address] Dec, [facility] [address] [id number] [place] [address] Nov, [facility] [address] [id number] [place] [address] Nov, [facility] [address] [id number] [place] [address] Oct, [facility] [place] [facility] [address] [id number], [place] [address] Aug, [facility] [place] [facility] [address] [id number] [place] [address] Aug, [facility] [place] [facility] [address] [id number] [place] [address] Dec, [facility] [place] [facility] [address] [id number] [place] [address] Dec, [facility] [address] [id number] [place] [address] 05 Dec, 2011 [facility] [address] [id number] [place] [address] Nov, [facility] [address] [id number] [place] [address] 15 Nov, 2011 [facility] [address] [id number] [place] [address] Oct, [facility] [address] [id number] [place] [address] Oct, [facility] [address] [id number] [place] [address] Oct, [facility] [address] [id number] [place] [address] 24 Sep, 2011 [facility] [address] [id number] [place] [address] 24 Sep, 2011 [facility] [address] [id number] [place] [address] 18 Sep, 2011 [facility] [address] [id number] [place] [address] 17 Sep, 2011 [facility] [address] [id number] [place] [address] Sep, [facility] [address] [id number] [place] [address] Sep, [facility] [address] [id number] [place] [address] 10 Sep, 2011 [facility] [place] [facility] [address] [id number] [place] [address] 09 Sep, 2011 [facility] [place] [facility] [address] [id number] [place] [address] Jul, [facility] [address] [id number] [place] [address] 15 Jul, 2011 [facility] [address] [id number] [place] [address] 15 Jul, 2011 [facility] [place] [facility] [address] [id number] [place] [address] 14 Nov, 2010 [facility] [place] [facility] [address] [id number] [place] [address] 17 Aug, 2010 [facility] [place] [facility] [address] [id number] [place] [address] 17 Aug, 2010 [facility] [place] [facility] [address] [id number] [place] [address] 16 Aug, 2010 [facility] [place] [facility] [address] [id number] [place] [address] 15 Aug, 2010 [facility] [place] [facility] [address] [facility] [id number] [place] [address] 09 Aug, 2010 [facility] [place] [facility] [address] [id number], [place] [address] Jul, [facility] [place] [facility] [address] [id number] [place] [address] Jun, [facility] [place] [facility] [address] [facility] [id number], [place] [address] Jun, [facility] [place] [facility] [address] [facility] [id number], [place] [address] Sep, [facility] [place] [facility] [address] [id number], [place] [address] 28 Aug, 2009 [facility] [place] [facility] [address] [id number] [place] [address] 09 Aug, 2009 [facility] [place] [facility] [address] [id number], [place] [address] 08 Aug, 2009 [facility] [place] [facility] [address] [id number], [place] [address] 14 Jun, 2009 [facility] [place] [facility] [address] [id number], [place] [address] Jun, [facility] [address] [facility] [id number], [place] [address] May, [facility] [address] [id number], [place] [address] Apr, [facility] [address] [id number], [place] [address] Mar, [facility] [address] [id number], [place] [address] January, [facility] [address] [facility] [id number], [place] [address] Oct, IMMUNIZATIONS No Known Immunizations SOCIAL HISTORY Never Assessed REASON FOR VISIT abdominal cramping not improved since 05/12 visit. Has CHM on 06/01. JStrasserRCharles PLAN OF CARE Activity Details Follow Up 2 Weeks Reason: VITAL SIGNS Height 70 in 2018-05-18 Weight 332.4 lbs 2018-05-18 Temperature 98.0 degrees Fahrenheit 2018-05-18 Heart Rate 100 bpm 2018-05-18 Respiratory Rate 24 2018-05-18 BMI 47.69 kg/m2 2018-05-18 Blood pressure systolic 120 mmHg 2018-05-18 Blood pressure diastolic 80 mmHg 2018-05-18 MEDICATIONS Medication Instructions Dosage Frequency Start Date End Date Duration Status Actos 45 MG Orally Once a day 1 tablet 24h Nov, 30 day(s) Active Depo-Testosterone 100 MG/ML Intramuscular once monthly 1 ml Mar, Active K71-Uoytyg Active Tresiba FlexTouch 200 UNIT/ML DX- E11.65 at bedtime Inject 160 units Mar, Active Omeprazole 40 mg Orally Once a day 1 capsule 24h Apr, Active Cinnamon 500 mg Orally Once a day 2 capsules 24h Active Zanaflex 4 MG Orally 2 times a day 1 tablet as needed 12h Apr, Active Pen [place] 32G X 4 MM use with insulin pens for injection Feb, 30 days Active Lisinopril 20 mg Orally Once a day 1 tablet 24h Active MetFORMIN HCl ER (MOD) 500 mg Orally 2 times a day 2 tablets 12h Active Meloxicam 7.5 MG Orally 2 times a day 1 tablet 12h Feb, 30 day( s) Active One Touch/One Touch II Starter Active Amitriptyline HCl 50 mg Orally Once a day 1 tablet 24h Nov, Active Fish Oil 1000 MG Orally twice a day 1 capsule 12h Active Neurontin 800 MG Orally Three times a day 1.5 tablets 8h Oct, 30 day(s) Active HydrOXYzine HCl 25 MG Orally three times a day as needed 1-2 tabs Nov Active IBU 800 MG TAKE ONE TABLET BY MOUTH THREE TIMES DAILY 33 Active Lancets - test blood sugar 12h January, 25 days Active Glucometer test blood sugar 12h January, lifetime Active Diflucan 200 MG Orally every 72 hours 1 tablet 3 days Active Topiramate 25 MG Orally Twice a day 1 tablet 12h Apr, 30 day(s ) Active Cetirizine HCl 10 MG Orally Once a day 1 tablet 24h 30 day(s) Active NovoLog Flexpen 100 UNIT/ML Subcutaneous 3 times a day 60 u 8h Feb, Active Prozac 40 MG Orally Once a day 1 capsule 24h Oct, Active Test strips test blood sugar h January, 25 days Active Levemir FlexTouch 100 UNIT/ML DX- E11.9 2 times a day 80 units 12h Feb, Not-Taking RESULTS No Results PROCEDURES No Known procedures [...] Hospitalization History [facility] of the left upper thigh[facility] 04/2017 Hospitalization History [facility]-inpatient psych 4 day stay 2013 Hospitalization History [facility] [place], unsure of blood sugar level 11/20/2017
--- OUTSIDE RECORDS SUMMARY | 2018-07-05 10:43 | XMS REPORT ---
Author Author XIN JENNIFER [facility] Address [address] [place] [address] Care Team Providers Care Communications Maintainer Name Role Phone XIN JENNIFER Unavailable PROBLEMS Type Condition ICD9-CM Code OHH35-AK Code Onset Dates Condition Status SNOMED Code Problem Other male erectile dysfunction N52.8 Active 873284679 Problem Diabetes type 2, controlled E11.9 Active 72471363 Problem Obesity, unspecified E66.9 Active 992253177 Problem Gastro-esophageal reflux disease with esophagitis K21.0 Active 986138404 Problem Insomnia, unspecified G47.00 Active 693410565 Problem Anxiety F41.9 Active 95609257 Problem 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 Active 63627758 Problem Hypertriglyceridemia E78.1 Active 578562272 Problem Generalized anxiety disorder F41.1 Active 68430779 Problem Chronic fatigue R53.82 Active 21529645 Problem Type 2 diabetes mellitus 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 E11.9 Active 802483201 Problem BMI 45.0-49.9, adult Z68.42 Active 299098986 Problem Other chronic pain G89.29 Active 82017724 Problem Morbid obesity due to excess calories E66.01 Active 561868559 Problem Type 2 diabetes mellitus with hyperglycemia E11.65 Active 367389858 Problem Hypertension I10 Active 73872136 Problem Diabetes type 2, uncontrolled E11.65 Active 595131714 Problem Mild episode of recurrent major depressive disorder F33.0 Active 280847250 Problem Type 2 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 Active 35969469 Problem Hypogonadism in male E29.1 Active 31367017 Problem Seasonal allergies J30.2 Active 414830589 Problem Controlled type 2 diabetes mellitus without complication, without long -term current use of insulin E11.9 Active 877518186 Problem Diabetic polyneuropathy associated with type 2 diabetes mellitus E11.42 Active 84289589 Problem Polyneuropathy G62.9 Active 58045537 Problem 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 Active 508000935 Problem intermediate 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.4 Active 431719521 Problem Diverticulitis of small intestine without perforation or abscess without bleeding K57.12 Active 54347781 Problem GERD without esophagitis K21.9 Active 027947613 Problem Type 2 diabetes mellitus with hyperglycemia E11.65 Active 374666409 ALLERGIES Substance Reaction Event Type Date Status Zoloft hives adverse reaction Drug Allergy Apr, Active Wellbutrin "out of it" Drug Allergy Apr, Active Clindamycin HCl itching Drug Allergy Apr, Active BuSpar local swelling Drug Allergy Apr, Active ENCOUNTERS Encounter Location Date Diagnosis [facility] [address] [address]34- [address]45 Jun, [facility] [address] 0[address]15- [address]87 May, [facility] [address] 02923- 2279 May, [facility] [address] 52576- 3908 May, Uncontrolled type 2 diabetes mellitus with hyperglycemia E11.65 [place] [address] 50625- 1704 May, Uncontrolled type 2 diabetes mellitus with hyperglycemia E11.65 ; BMI 45.0-49.9, adult Z68.42 and Colitis K52.9 [facility] [id number] [place] [address] 36328- 7869 May, [facility] [address] 18670- 4548 May, [facility] [id number] [place] [address] 48931 -7791 Apr, Colitis K52.9 ; Abdominal discomfort R10.9 and Anxiety F41.9 [facility] [id number] [place] [address] 71525- 8157 Apr, [facility] [address] 85767- 5039 Apr, Colitis K52.9 and BMI 45.0-49.9, adult Z68.42 [facility] [id number] [place] [address] 59425- 8157 Apr, Diabetes type 2, uncontrolled E11.65 [place] [id number] [place] [address] 74866- 9203 Apr, 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 ; Generalized anxiety disorder F41.1 and BMI 45.0-49.9, adult Z68.42 [place] [id number] [place] [address] 38992- 3137 Apr, [place] [address] 89014- 6741 Apr, BMI 45.0-49.9, adult Z68.42 [place] [address] 45267- 8315 Apr, Candidiasis B37.9 ; Pain in right shoulder M25.511 ; Pain in left shoulder M25.512 ; Other chronic pain G89.29 and Morbid obesity due to excess calories E66.01 [place] [address] 73398- 3723 Apr, Hypogonadism in male E29.1 [facility] [id number] [place] [address] 18730 -5210 Mar, Yeast dermatitis B37.2 and Sensation of foreign body in throat R09.89 [facility] [id number] [place] [address] 13627- 7158 Mar, [facility] [address] 72651- 3847 Mar, Hypogonadism in male E29.1 [place] [id number] [place] [address] 73354- 7371 Mar, Hypogonadism in male E29.1 [facility] [address] [place] [address]- 8890 Mar, [place] [id number] [place] [address] 88162- 7935 Mar, Diabetes type 2, uncontrolled E11.65 and Hypogonadism in male E29.1 [place] [address] 64839- 5346 Mar, [place] [address] 80010- 8512 Feb, Diabetes type 2, controlled E11.9 ; Myalgia M79.1 and BMI 45.0-49.9, adult Z68.42 [facility] [address] 28[address] -9914 Feb, Hematuria, unspecified type R31.9 ; Side pain R10.9 and Rash R21 [place] [address] 29262- 6569 January, [place] [address] 62018- 3272 January, [place] [address] 54991- 4828 January, [facility] [id number] [place] [address] 71838 -7255 January, Seasonal allergies J30.2 and BMI 45.0-49.9, adult Z68.42 [place] [id number] [place] [address] 36354- 6850 January, Chronic fatigue R53.82 ; Mild episode of recurrent major depressive disorder F33.0 and Polyneuropathy G62.9 [place] [address] 16961- 9887 January, Chronic fatigue R53.82 ; BMI 45.0-49.9, adult Z68.42 and Anxiety F41.9 [place] [address] 45903- 6309 January, Generalized anxiety disorder F41.1 [place] [id number] [place] [address] 86224- 6278 Dec, 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 ; Generalized anxiety disorder F41.1 ; High risk medication use Z79.899 and BMI 45.0-49.9, adult Z68.42 [place] [id number] [place] [address] 08373- 5023 Dec, [facility] [id number] [place] [address] [id number] Dec, Encounter for dental examination Z01.20 [place] [id number] [place] [address] 00261- 2499 11 Dec, 2017 Mild episode of recurrent major depressive disorder F33.0 ; Type 2 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 and intermediate 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.4 [place] [id number] [place] [address] 91980- 9079 Nov, [place] [id number] [place] [address] 79831- 4315 Nov, BMI 45.0-49.9, adult Z68.42 ; 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 and Generalized anxiety disorder F41.1 [place] [id number] [place] [address] 32429- 4329 Nov, Type 2 diabetes mellitus 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 E11.9 and intermediate 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.4 [facility] [id number] [place] [address] [phone] Oct, Dental examination Z01.20 and Dental caries K02.9 [place] [id number] [place] [address] 36639- 2429 Oct, [place] [id number] [place] [address] 93855- 3741 Oct, BMI 45.0-49.9, adult Z68.42 ; 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 and Generalized anxiety disorder F41.1 [facility] [address] [address]- 18[address] Oct, [facility] [id number] [place] [address] 32744- 4033 Oct, [facility] [id number] [place] [address] 66454- 7901 Oct, Hypertriglyceridemia E78.1 [facility] [id number] [place] [address] 59514- 5411 Oct, Hypertriglyceridemia E78.1 [place] [id number] [place] [address] 18757- 5552 Sep, Controlled type 2 diabetes mellitus without complication, without long-term current use of insulin E11.9 [place] [id number] [place] [address] 89044- 8693 Sep, [facility] [id number] [place] [address] 62335- 1841 Sep, Controlled type 2 diabetes mellitus without complication, without long-term current use of insulin E11.9 [place] [id number] [place] [address] 51884- 8679 Sep, [place] [address] [address]- 7789 Sep, [place] [id number] [place] [address] 81394- 1421 Sep, BMI 45.0-49.9, adult Z68.42 ; Diabetic polyneuropathy associated with type 2 diabetes mellitus E11.42 and Chronic fatigue R53.82 [place] [id number] [place] [address] 62314- 0363 Sep, [facility] [id number] [place] [address] 87273- 0744 Sep, Hypertriglyceridemia E78.1 [facility] [id number] [address]- 8278 Aug, [facility] [id number] [place] [address] 92096- 5591 Aug, Generalized anxiety disorder F41.1 [facility] [id number] [place] [address] 12175- 4324 Aug, [facility] [id number] [place] [address] 96939- 9287 Aug, Hypertriglyceridemia E78.1 [place] [id number] [place] [address] 49045- 4344 Jul, [place] [id number] [place] [address] 25876- 4705 Jul, [place] [id number] [place] [address] 96741- 8534 Jul, Generalized anxiety disorder F41.1 ; 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 ; BMI 45.0-49.9, adult Z68.42 and Patient's noncompliance with other medical treatment and regimen Z91.19 [place] [id number] [place] [address] 83920- 6830 Jul, Diabetes type 2, uncontrolled E11.65 ; Diabetic polyneuropathy associated with type 2 diabetes mellitus E11.42 ; Abdominal pain , right upper quadrant R10.11 and Low back pain radiating to left lower extremity M54.5 [place] [id number] [place] [address] 26859- 0397 Jul, Generalized anxiety disorder F41.1 [place] [address] [address]- 3357 Jul, [place] [id number] [place] [address] 84491- 4984 Jul, Hypertriglyceridemia E78.1 [facility] [id number] [place] [address] 75037- 3000 Jul, Controlled type 2 diabetes mellitus without complication, without long-term current use of insulin E11.9 [facility] [id number] [place] [address] 85178- 5489 Jun, [facility] [id number] [place] [address] 41703- 6302 Jun, Hypertriglyceridemia E78.1 [facility] [id number] [place] [address] 55690- 4729 04 Jun, 2017 Controlled type 2 diabetes mellitus without complication, without long-term current use of insulin E11.9 [place] [id number] [place] [address] 29114- 9455 Jun, Generalized anxiety disorder F41.1 [place] [id number] [place] [address] 51076- 2706 02 Jun, 2017 Candidiasis B37.9 [place] [id number] [place] [address] 12650- 5976 19 May, 2017 [facility] [id number] [place] [address] 71538- 8224 18 May, 2017 Controlled type 2 diabetes mellitus without complication, without long-term current use of insulin E11.9 [place] [id number] [place] [address] 10508- 3546 14 May, 2017 Hypertriglyceridemia E78.1 [place] [id number] [place] [address] 89980- 6131 14 May, 2017 Hypertriglyceridemia E78.1 [place] [id number] [place] [address] 52820- 3638 14 May, 2017 Hypertriglyceridemia E78.1 and Hypotestosteronemia E34.9 [place] [id number] [place] [address] 54685- 6042 14 May, 2017 Generalized anxiety disorder F41.1 [facility] [id number] [place] [address] 83189- 6596 05 May, 2017 [facility] [address] [place] [address] May, Abscess and cellulitis L03.90 [facility] [id number] [place] [address] [id number] Apr, [facility] [id number] [place] [address] 87858- 7299 Apr, [facility] [id number] [place] [address] 42514- 0497 Apr, Dermatofibroma of back D23.5 [facility] [id number] [place] [address] 27749 -7486 Apr, Muscle strain of left thigh, initial encounter S76.912A [facility] [id number] [place] [address] 54040- 9841 Apr, [place] [id number] [place] [address] 65501- 0922 Apr, Generalized anxiety disorder F41.1 [facility] [id number] [place] [address] 86969- 9790 Apr, Polyneuropathy G62.9 [place] [id number] [place] [address] 54320- 7627 Apr, GERD without esophagitis K21.9 [facility] [id number] [place] [address] 28960- 5814 Apr, Generalized anxiety disorder F41.1 ; Diastasis recti M62.08 and Controlled type 2 diabetes mellitus without complication, without long-term current use of insulin E11.9 [facility] [id number] [place] [address] 22487- 3521 Apr, Generalized anxiety disorder F41.1 ; 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 and Controlled type 2 diabetes mellitus without complication, without long-term current use of insulin E11.9 [facility] [id number] [place] [address] 27230- 0698 Mar, Generalized anxiety disorder F41.1 ; Diastasis recti M62.08 and Controlled type 2 diabetes mellitus without complication, without long-term current use of insulin E11.9 [place] [id number] [place] [address] 41342- 6806 Mar, Controlled type 2 diabetes mellitus without complication, without long-term current use of insulin E11.9 [place] [id number] [place] [address] 02177- 7688 Mar, Generalized anxiety disorder F41.1 [place] [id number] [place] [address] 92868- 8562 Mar, Generalized anxiety disorder F41.1 [place] [id number] [place] [address] 77564- 3358 Mar, Generalized anxiety disorder F41.1 [place] [id number] [place] [address] 52221- 4386 Mar, Generalized anxiety disorder F41.1 [place] [id number] [place] [address] 43073- 2754 Feb, Controlled type 2 diabetes mellitus without complication, without long-term current use of insulin E11.9 [place] [id number] [place] [address] 10114- 0711 Feb, Controlled type 2 diabetes mellitus without complication, without long-term current use of insulin E11.9 and Tinea cruris B35.6 [place] [id number] [place] [address] 64695- 4281 Feb, Diabetes type 2, controlled E11.9 [facility] [id number] [place] [address] [id number] Feb, Dental examination Z01.20 [place] [id number] [place] [address] 36184- 7489 Feb, Dental examination Z01.20 [place] [id number] [place] [address] 77383- 5418 Feb, Generalized anxiety disorder F41.1 [facility] [id number] [place] [address] 00008 -0668 Feb, Muscle spasm M62.838 and Diabetes type 2, controlled E11.9 [facility] [id number] [place] [address] 31144- 8099 Feb, Type 2 diabetes mellitus with hyperglycemia E11.65 [facility] [id number] [place] [address] [id number] Feb, Dental examination Z01.20 [facility] [id number] [place] [address] [phone] Feb, Encounter for dental examination Z01.20 [facility] [id number] [place] [address] 54286- 3302 Feb, Diabetes type 2, controlled E11.9 [facility] [id number] [place] [address] 16820- 4874 Feb, Type 2 diabetes mellitus with hyperglycemia E11.65 [facility] [id number] [place] [address] 75490- 3999 Feb, [facility] [address] 33193- 3910 Feb, Controlled type 2 diabetes mellitus without complication, without long-term current use of insulin E11.9 [facility] [id number] [place] [address] 85092- 8670 January, Candidiasis B37.9 [facility] [id number] [place] [address] 70159- 4555 January, Type 2 diabetes mellitus with hyperglycemia E11.65 ; Hypertension I10 and Anxiety F41.9 [facility] [id number] [place] [address] 98178- 9067 January, Type 2 diabetes mellitus with hyperglycemia E11.65 [facility] [id number] [place] [address] 79986- 9784 January, Controlled type 2 diabetes mellitus without complication, without long-term current use of insulin E11.9 [facility] [id number] [place] [address] 48665- 1847 January, Generalized anxiety disorder F41.1 ; 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 ; Foot callus L84 and Controlled type 2 diabetes mellitus without complication, without long-term current use of insulin E11.9 [facility] [id number] [place] [address] 58438- 7540 Dec, [facility] [address] 91970- 9610 Dec, [place] [address] 75808- 0904 Dec, Foot callus L84 and Rash R21 [place] [id number] [place] [address] 47575- 9363 Dec, Controlled type 2 diabetes mellitus without complication, without long-term current use of insulin E11.9 [facility] [id number] [place] [address] 12562- 6204 Nov, [facility] [id number] [place] [address] 70059 -6881 Nov, Sore throat J02.9 and Strep pharyngitis J02.0 [facility] [id number] [place] [address] 65756- 4280 Nov, Generalized anxiety disorder F41.1 [facility] [id number] [place] [address] 51157- 8976 Nov, [place] [id number] [place] [address] 83142- 2291 Nov, [place] [address] 73499- 2858 Nov, Type 2 diabetes mellitus with hyperglycemia E11.65 [facility] [id number] [place] [address] 63010- 0469 Nov, Diabetes type 2, uncontrolled E11.65 and Localized edema R60.0 [facility] [id number] [place] [address] 77081- 4780 Nov, Controlled type 2 diabetes mellitus without complication, without long-term current use of insulin E11.9 [facility] [id number] [place] [address] 69017- 6307 14 Oct, 2016 Generalized anxiety disorder F41.1 and 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 [facility] [id number] [place] [address] 26790- 5336 14 Oct, 2016 [facility] [id number] [place] [address] 62953- 8336 Oct, Type 2 diabetes mellitus with hyperglycemia E11.65 [place] [id number] [place] [address] 72923- 7580 09 Oct, 2016 Type 2 diabetes mellitus with hyperglycemia E11.65 and intermediate 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.4 [facility] [id number] [place] [address] 14656- 8323 Oct, [facility] [id number] [place] [address] 44297- 7303 Oct, [facility] [id number] [place] [address] [phone] Oct, Encounter for dental examination Z01.20 [facility] [id number] [place] [address] 08997- 5264 Sep, [facility] [id number] [place] [address] 44485- 2382 Sep, Diabetes type 2, controlled E11.9 [facility] [id number] [place] [address] 21959 -1345 Sep, Abdominal pain R10.9 and Diverticulitis of small intestine without perforation or abscess without bleeding K57.12 [facility] [id number] [place] [address] 47247- 7458 Sep, [place] [id number] [place] [address] 60912- 1252 Sep, Diabetes type 2, controlled E11.9 [place] [address] 41653- 8851 Sep, Controlled type 2 diabetes mellitus without complication, without long-term current use of insulin E11.9 [place] [address] 46971- 2992 Sep, Type 2 diabetes mellitus 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 E11.9 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 36280 -7637 Aug, Lower abdominal pain R10.30 ; GERD without esophagitis K21.9 and Candidiasis of skin B37.[address] 89215- 9137 Aug, Controlled type 2 diabetes mellitus without complication, without long-term current use of insulin E11.9 and Diabetic polyneuropathy associated with type 2 diabetes mellitus E11.[address] 71283 -2974 Jul, Kelly infection of genital region B37.49 and Diabetes type 2, controlled E11.9 [place] [id number] [place] [address] 10280- 1325 Jul, Controlled type 2 diabetes mellitus without complication, without long-term current use of insulin E11.9 ; 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 and Acute pharyngitis due to other specified organisms J02.8 [facility] [place] [id number] [place] [address] 88875 -5303 Jul, Acute upper respiratory infection, unspecified J06.9 and Other viral agents as the cause of diseases classified elsewhere B97.[address] 51269- 3629 Jun, Generalized anxiety disorder F41.[address] [place] [address]- 6073 14 Jun, 2016 [facility] [id number] [place] [address] 16147- 1647 13 Jun, 2016 Diabetes type 2, controlled E11.9 and Polyneuropathy G62.9 [facility] [id number] [place] [address] 07223- 4841 28 May, 2016 [facility] [id number] [place] [address] 48651- 9340 28 May, 2016 Generalized anxiety disorder F41.1 [facility] [id number] [place] [address] 82401- 1061 15 May, 2016 Polyneuropathy G62.9 [facility] [id number] [place] [address] 62485- 8590 13 May, 2016 [facility] [id number] [place] [address] 41831- 8132 Apr, Anxiety disorder, unspecified F41.9 [facility] [id number] [place] [address] 82362- 2282 Mar, Abdominal pain, unspecified abdominal location R10.9 ; Type 2 diabetes mellitus with hyperglycemia E11.65 ; 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 and Diabetic polyneuropathy associated with type 2 diabetes mellitus E11.42 [facility] [id number] [place] [address] 73194- 6537 Mar, Generalized anxiety disorder F41.1 [facility] [id number] [place] [address] 06200- 4272 Mar, Generalized abdominal pain R10.84 and Other male erectile dysfunction N52.8 [facility] [id number] [place] [address] 82062 -2179 Mar, [facility] [id number] [place] [address] 08974- 4752 Feb, Generalized anxiety disorder F41.1 [facility] [address] 52895- 4885 30 Feb, 2016 Abdominal cramping R10.9 ; Acute bilateral low back pain without sciatica M54.5 and Malaise R53.81 [facility] [address] 39955 -1436 Feb, Candidiasis B37.9 and Costochondritis M94.0 [facility] [address] 30209 -8333 Feb, Allergic rhinitis, unspecified allergic rhinitis type J30.9 [facility] [address] 78118- 2862 Feb, Generalized anxiety disorder F41.1 [facility] [address] 43171- 5539 Feb, [facility] [address] 78566- 7639 Feb, Major depressive disorder, recurrent, moderate F33.1 [facility] [address] 60081- 8318 Feb, Generalized anxiety disorder F41.1 [facility] [address] 18837- 8840 January, Unspecified infectious disease B99.9 [facility] [address] [id number] January, Dental examination Z01.20 [facility] [address] 86268- 1385 January, [place] [address] 65807- 6774 January, Diabetes type 2, uncontrolled E11.65 [facility] [address] 69762 -2463 13 Jan, 2016 Wheezing R06.2 and History of pneumonia Z87.01 [facility] [address] [place] [address]- 5455 January, [facility] [address] [facility] [id number] 7257 January, Depression, major, recurrent, moderate F33.1 [facility] [address] [facility] [id number], [place] [address]- 9356 January, [facility] [id number] [place] [address] 421059- 7938 January, Depression, major, recurrent, moderate F33.1 [facility] [address] 5907 January, [facility] [id number] [place] [address] 46616- 3785 Dec, Depression, major, recurrent, moderate F33.1 [facility] [address] [address]- 8877 Dec, Dental examination Z01.20 [facility] [address] [id number] [id number] Dec, Dental examination Z01.20 [facility] [id number] [place] [address] 22200- 5043 Dec, Generalized anxiety disorder F41.1 [facility] [address], [place] [address]- 1578 Dec, Generalized anxiety disorder F41.1 [facility] [address] [address]- 2544 Nov, [facility] [address] 2090 Nov, [facility] [address]- 5283 Nov, Generalized anxiety disorder F41.1 [facility] [address] [id number] [id number] Nov, Dental examination Z01.20 [facility] [address] [place] [address] 84730- 6058 Nov, [facility] [address] 19572- 4670 Nov, Generalized anxiety disorder F41.1 and 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 [place] [address] 63689- 8775 Nov, Depression, major, recurrent, moderate F33.1 [facility] [id number] [place] [address] 05396- 3118 Nov, [place] [address] 48255- 4013 Nov, Diabetes type 2, uncontrolled E11.65 and Hypertension I10 [facility] [address] [id number] Nov, Dental examination Z01.20 [facility] [id number] [place] [address] 96199- 8448 Nov, [facility] [id number] [place] [address] 31145- 6210 Nov, Depression, major, recurrent, moderate F33.1 [facility] [id number] [place] [address] 19658 -8939 Nov, Penile abrasion S30.812A [facility] [id number] [place] [address] 39855- 8704 Oct, Generalized anxiety disorder F41.1 [facility] [id number] [place] [address] 15733- 1317 Oct, Depression, major, recurrent, moderate F33.1 [place] [id number] [place] [address] 74003- 2495 Oct, Diabetes type 2, controlled E11.9 and Malaise R53.81 [facility] [id number] [place] [address] 86924- 7262 17 Oct, 2015 [facility] [address] [place] [address] 84996- 2186 16 Oct, 2015 [facility] [id number] [place] [address] 56525- 5496 Oct, [facility] [id number] [place] [address] 29063- 3626 Oct, Depression, major, recurrent, moderate F33.1 [facility] [id number] [place] [address] 61091 2548 Oct, Generalized anxiety disorder F41.1 and 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 [facility] [id number] [place] [address] 38947- 3621 Oct, [facility] [id number] [place] [address] 78092- 1139 Oct, Major depressive disorder, recurrent, moderate F33.1 [facility] [address] [place] [address] 69793- 0641 Oct, [facility] [id number] [place] [address] 30922- 2549 Oct, [facility] [id number] [place] [address] 97213- 8523 Oct, Generalized anxiety disorder F41.1 [facility] [id number] [place] [address] 33524 2546 Oct, [facility] [id number] [place] [address] 84532- 2546 Oct, Back muscle spasm M62.830 [facility] [id number] [place] [address] 65919- 1604 Oct, Major depressive disorder, recurrent, moderate F33.1 [facility] [id number] [place] [address] 23122 -7075 Sep, Back muscle spasm M62.830 ; Allergic rhinitis J30.9 and Person with feared health complaint in whom no diagnosis is made Z71.1 [facility] [id number] [place] [address] 32701- 9622 Sep, Generalized anxiety disorder F41.1 [facility] [id number] [place] [address] 63482 -9975 Sep, [facility] [id number] [place] [address] 42685- 1033 Sep, [place] [id number] [place] [address] 82391- 3180 Sep, Mood disorder F39 ; Diabetes type 2, controlled E11.9 ; Morbid obesity due to excess calories E66.01 and Edema, unspecified type R60.9 [place] [id number] [place] [address] 75586- 4997 Sep, Generalized anxiety disorder F41.1 [place] [id number] [place] [address] 62725- 9440 11 Sep, 2015 [place] [id number] [place] [address] 72872- 4746 Sep, Adjustment disorder with mixed anxiety and depressed mood F43.23 and Depression F32.9 [place] [id number] [place] [address] 72833- 7494 Sep, Generalized anxiety disorder F41.1 [facility] [address] [place] [address] 44459- 5856 05 Sep, 2015 Generalized anxiety disorder 300.02 and Autism spectrum disorder F84.[address] [id number] [id number] Aug, Encounter for dental examination Z01.20 [facility] [address] [place] [address] 75121- 1315 16 Aug, 2015 [facility] [id number] [address] -7058 Jul, Candidiasis B37.9 [place] [id number] [place] [address] 55399- 4410 Jul, [facility] [id number] [id number] Jul, Encounter for dental examination Z01.20 [place] [address] 38016- 3359 Jul, [place] [id number] [place] [address] 89953- 9205 Jun, [place] [id number] [place] [address] 15888- 0477 May, Diabetes type 2, controlled 250.00 and Neuropathy 355.9 [address] [place] [id number] [place] [address] 14880- 2400 May, [place] [id number] [place] [address] 99205- 0081 Apr, Generalized anxiety disorder 300.02 and Autism spectrum disorder 299.00 [address] [place] [id number] [place] [address] 61386- 8944 Apr, Abrasion, foot 917.0 ; Chest pain 786.50 and Back pain 724.5 [address] [place] [id number] [place] [address] 69844- 3764 Apr, Generalized anxiety disorder 300.02 [place] [id number] [place] [address] 01536- 6967 Feb, Anxiety state, unspecified 300.00 [address] [id number] [place] [address] 48390- 0914 Feb, Diabetes mellitus without mention of complication, type II or unspecified type, not stated as uncontrolled 250.00 ; Generalized anxiety disorder 300.02 ; Morbid obesity 278.01 ; Benign essential hypertension 401.1 ; Chronic pain 338.29 ; Screen for STD (sexually transmitted disease) V74.5 ; Dysuria 788.1 and Kelly infection of genital region 112.2 [facility] [address], [place] [address]- 8266 Feb, [facility] [id number] [address]- 2546 January, Generalized anxiety disorder 300.02 and Autism spectrum disorder 299.00 [facility] [id number] [place] [address] 72685- 5596 Dec, [facility] [id number] [place] [address] 05763- 1035 Dec, [facility] [id number] [place] [address] 98291- 0506 Dec, [facility] [id number] [place] [address] 55871- 7946 Nov, [facility] [id number] [place] [address] [id number] Nov, [facility] [id number] [place] [address] 58768- 0255 Nov, [facility] [id number] [place] [address] 69252- 1406 Nov, [facility] [id number] [place] [address] [id number] Nov, [facility] [address], [place] [address]- 2546 Oct, [facility] [address] [address] 2546 Jul, [facility] [id number] [place] [address] 43475- 2546 Jul, [facility] [address] [address]- 2546 Jul, [facility] [id number] [place] [address] 30525- 6845 Jul, [facility] [place] [facility] [address] [id number] [place] [address]- 7725 Jul, [facility] [place] [facility] [address] [id number] [place] [address]- 7311 Jul, [facility] [place] [facility] [address] [id number] [place] [address]- 7725 Jul, [facility] [place] [facility] [address] [id number] [place] [address]- 4054 Jul, [facility] [place] [facility] [address] [id number] [place] [address]- 8368 Jul, [facility] [place] [facility] [address] [id number] [place] [address]- 1732 Jul, [facility] [place] [facility] [address] [id number] [place] [address]- 3000 Jun, [facility] [place] [facility] [address] [id number] [place] [address]- 6753 Jun, [facility] [place] [facility] [address] [id number] [place] [address]- 6460 Jun, [facility] [place] [facility] [address] [id number] [place] [address]- 7777 Jun, [facility] [place] [facility] [address] [id number], [place] [address]- 4699 Jun, [facility] [place] [facility] [address] [id number], [place] [address]- 2477 Jun, [facility] [place] [facility] [address] [id number] [place] [address]- 6609 Jun, [facility] [place] [facility] [address] [id number] [place] 6569 May, [facility] [place] [facility] [address] [id number] [place] [address]- 3176 May, [facility] [place] [facility] [address] [id number] [place] [address]- 1596 May, [facility] [place] [facility] [address] [id number] [place] [address]- 6936 May, [facility] [place] [facility] [address] [id number] [place] [address]- 4376 May, [facility] [place] [facility] [address] [id number] [place] [address]- 5822 May, [facility] [place] [facility] [address] [id number] [place] [address]- 6390 May, [facility] [place] [facility] [address] [id number] [place] [address]- 9564 May, [facility] [place] [facility] [address] [id number] [place] [address]- 8992 Apr, [facility] [place] [facility] [address] [id number] [place] [address]- 6809 Apr, [facility] [place] [facility] [address] [id number] [place] [address]- 6086 Apr, [facility] [place] [facility] [address] [id number] [place] [address]- 0350 Apr, [facility] [place] [facility] [address] [id number] [place] [address]- 7497 Apr, [facility] [place] [facility] [address] [id number] [place] [address]- 2277 Apr, [facility] [place] [facility] [address] [id number] [place] [address]- 5438 Apr, [facility] [place] [facility] [address] [id number] [place] [address]- 1705 Apr, [facility] [place] [facility] [address] [id number] [place] [address]- 6832 Apr, [facility] [place] [facility] [address] [id number] [place] [address]- 1209 Mar, [facility] [place] [facility] [address] [id number] [place] [address]- 2871 Mar, [facility] [place] [facility] [address] [id number] [place] [address]- 6177 Mar, [facility] [place] [facility] [address] [id number] [place] [address]- 8507 Mar, [facility] [place] [facility] [address] [id number] [place] [address]- 7332 Mar, [facility] [place] [facility] [address] [id number] [place] [address]- 1469 Mar, [facility] [place] [facility] [address] [id number] [place] [address]- 8681 Feb, [facility] [place] [facility] [address] [id number] [place] [address]- 5446 Feb, [facility] [place] [facility] [address] [id number] [place] [address]- 9368 Feb, [facility] [place] [facility] [address] [id number] [place] [address]- 5186 January, [facility] [place] [facility] [address] [id number] [place] [address]- 0148 January, [facility] [place] [facility] [address] [id number] [place] [address]- 0494 January, [facility] [place] [facility] [address] [id number] [place] [address]- 1194 January, [facility] [place] [facility] [address] [id number] [place] [address]- 6255 January, [facility] [place] [facility] [address] [id number] [place] [address]- 3030 January, [facility] [place] [facility] [address] [id number] [place] 4150 Dec, [facility] [place] [facility] [address] [id number], [place] [address]- 6892 Dec, [facility] [address] [id number] [place] [address]- 8726 Dec, [facility] [place] [facility] [address] [id number] [place] [address]- 1806 Dec, [facility] [place] [facility] [address] [facility] [id number] [place] [address]- 8730 Nov, [facility] [place] [facility] [address] [id number] [place] [address]- 2647 Nov, [facility] [place] [facility] [address] [id number] [place] [address]- 8991 Oct, [facility] [place] [facility] [address] [facility] [id number] [place] [address]- 6772 Oct, [facility] [address] [facility] [id number] [place] [address]- 7420 Sep, [facility] [place] [facility] [address] [facility] [id number] [place] [address]- 4100 Sep, [facility] [place] [facility] [address] [facility] [id number] [place] [address]- 7304 Aug, [facility] [place] [facility] [address] [facility] [id number] [place] [address]- 0902 Aug, [facility] [place] [facility] [address] [facility] [id number] [place] [address]- 9325 Aug, [facility] [place] [facility] [address] [id number], [place] [address]- 4710 Jul, [facility] [place] [facility] [address] [id number] [place] 8246 Jul, [facility] [place] [facility] [address] [facility] [id number] [place] [address]- 6893 Jul, [facility] [place] [facility] [address] [facility] [id number] [place] [address]- 5782 Jul, [facility] [place] [facility] [address] [id number] [place] [address]- 2999 Jul, [facility] [place] [facility] [address] [id number] [place] [address]- 2506 May, [facility] [place] [facility] [address] [id number] [place] [address] 2546 May, [facility] [place] [facility] [address] [id number] [place] [address]- 5339 Apr, [facility] [place] [facility] [address] [id number] [place] [address]- 2202 Apr, [facility] [place] [facility] [address] [id number] [place] [address]- 6489 Mar, [facility] [place] [facility] [address] [id number] [place] [address]- 1755 Mar, [facility] [place] [facility] [address] [id number] [place] [address]- 5273 Mar, [facility] [place] [facility] [address] [id number] [place] [address]- 2157 Mar, [facility] [place] [facility] [address] [id number] [place] [address]- 9488 Feb, [facility] [place] [facility] [address] [id number] [place] [address]- 2211 Feb, [facility] [place] [facility] [address] [id number] [place] [address]- 9477 Feb, [facility] [place] [facility] [address] [id number] [place] [address]- 4924 Feb, [facility] [place] [facility] [address] [id number] [place] [address]- 1516 Feb, [facility] [place] [facility] [address] [id number] [place] [address]- 2436 January, [facility] [place] [facility] [address] [id number] [place] [address]- 0884 January, [facility] [address] [id number] [place] [address]- 6090 January, [facility] [address] [id number] [place] [address] January, [facility] [address] [id number] [place] [address] Dec, [facility] [address] [id number] [place] [address] Dec, [facility] [address] [id number] [place] [address] Dec, [facility] [address] [id number] [place] [address] Dec, [facility] [address] [id number] [place] [address] Nov, [facility] [address] [id number] [place] [address] Nov, [facility] [address] [id number] [place] [address] Oct, [facility] [address] [id number] [place] [address] Aug, [facility] [address] [id number] [place] [address] Aug, [facility] [place] [facility] [address] [id number], [place] [address] Dec, [facility] [place] [facility] [address] [id number] [place] [address] Dec, [facility] [place] [facility] [address] [id number] [place] [address] Dec, [facility] [place] [facility] [address] [id number] [place] [address] Nov, [facility] [address] [id number] [place] [address] 15 Nov, 2011 [facility] [address] [id number] [place] [address] 21 Oct, 2011 [facility] [address] [id number] [place] [address] 07 Oct, 2011 [facility] [address] [id number] [place] [address] 02 Oct, 2011 [facility] [address] [id number] [place] [address] 24 Sep, 2011 [facility] [address] [id number] [place] [address] 24 Sep, 2011 [facility] [address] [id number] [place] [address] 18 Sep, 2011 [facility] [address] [id number] [place] [address] 17 Sep, 2011 [facility] [address] [id number] [place] [address] 12 Sep, 2011 [facility] [address] [id number] [place] [address] Sep, [facility] [address] [id number] [place] [address] 10 Sep, 2011 [facility] [address] [id number] [place] [address] 09 Sep, 2011 [facility] [address] [id number] [place] [address] 22 Jul, 2011 [facility] [address] [id number] [place] [address] 15 Jul, 2011 [facility] [address] [id number] [place] [address] 15 Jul, 2011 [facility] [address] [id number] [place] [address] 14 Nov, 2010 [facility] [place] [facility] [address] [id number] [place] [address] 17 Aug, 2010 [facility] [place] [facility] [address] [id number] [place] [address] 17 Aug, 2010 [facility] [place] [facility] [address] [id number] [place] [address] 16 Aug, 2010 [facility] [place] [facility] [address] [id number] [place] [address] 15 Aug, 2010 [facility] [place] [facility] [address] [id number] [place] [address] 09 Aug, 2010 [facility] [place] [facility] [address] [id number] [place] [address] 26 Jul, 2010 [facility] [place] [facility] [address] [id number] [place] [address] 12 Jun, 2010 [facility] [place] [facility] [address] [id number], [place] [address] 12 Jun, 2010 [facility] [place] [facility] [address] [id number] [place] [address] Sep, [facility] [place] [facility] [address] [id number], [place] [address] 28 Aug, 2009 [facility] [place] [facility] [address] [id number], [place] [address] 09 Aug, 2009 [facility] [place] [facility] [address] [id number], [place] [address] 08 Aug, 2009 [facility] [place] [facility] [address] [id number], [place] [address] 14 Jun, 2009 [facility] [place] [facility] [address] [id number], [place] [address] 14 Jun, 2009 [facility] [place] [facility] [address] [id number], [place] [address] 14 May, 2009 [facility] [place] [facility] [address] [id number], [place] [address] Apr, [facility] [address] [facility] [id number][place] [address] Mar, [facility] [address] [facility] [id number][place] [address] January, [facility] [address] [facility] [id number], [place] [address] Oct, IMMUNIZATIONS No Known Immunizations SOCIAL HISTORY Never Assessed REASON FOR VISIT asya/micheline Adam MA PLAN OF CARE Activity Details Follow Up 4 Weeks Reason: VITAL SIGNS Height 70 in 2018-05-12 Weight 334.6 lbs 2018-05-12 Heart Rate 106 bpm 2018-05-12 Respiratory Rate 20 2018-05-12 Oximetry 95 % 2018-05-12 BMI 48.00 kg/m2 2018-05-12 Blood pressure systolic 118 mmHg 2018-05-12 Blood pressure diastolic 80 mmHg 2018-05-12 MEDICATIONS Medication Instructions Dosage Frequency Start Date End Date Duration Status One Touch/One Touch II Starter Active Depo-Testosterone 100 MG/ML Intramuscular once monthly 1 ml Mar, Active Fish Oil 1000 MG Orally twice a day 1 capsule 12h Active Tresiba FlexTouch 200 UNIT/ML DX- E11.65 at bedtime Inject 160 units Mar, Active Lisinopril 20 mg Orally Once a day 1 tablet 24h Active Prozac 40 MG Orally Once a day 1 capsule 24h Oct, Active HydrOXYzine HCl 25 MG Orally three times a day as needed 1-2 tabs Nov Active Pen Niles 32G X 4 MM use with insulin pens for injection Feb, 30 days Active Neurontin 800 MG Orally Three times a day 1.5 tablets 8h Oct, 30 day(s) Active MetFORMIN HCl ER (MOD) 500 mg Orally 2 times a day 2 tablets 12h Active Cetirizine HCl 10 MG Orally Once a day 1 tablet 24h 30 day(s) Active Glucometer test blood sugar 12h January, lifetime Active A84-Djasem Active Omeprazole 40 mg Orally Once a day 1 capsule 24h Apr, Active Cinnamon 500 mg Orally Once a day 2 capsules 24h Active Zanaflex 4 MG Orally 2 times a day 1 tablet as needed 12h Apr, Active Test strips test blood sugar 12h January, 25 days Active Actos 45 MG Orally Once a day 1 tablet 24h Nov, 30 day(s) Active Amitriptyline HCl 50 mg Orally Once a day 1 tablet 24h Nov, Active IBU 800 MG TAKE ONE TABLET BY MOUTH THREE TIMES DAILY 33 Active Levemir FlexTouch 100 UNIT/ML DX- E11.9 2 times a day 80 units 12h Feb, Active Diflucan 200 MG Orally every 72 hours 1 tablet 3 days Active NovoLog Flexpen 100 UNIT/ML Subcutaneous 3 times a day 60 u 8h Feb, Active Topiramate 25 MG Orally Twice a day 1 tablet 12h Apr, 30 day(s ) Active Lancets - test blood sugar h January, 25 days Active Meloxicam 7.5 MG Orally 2 times a day 1 tablet 12h Feb, 30 day( s) Active RESULTS No Results PROCEDURES No Known [...] at age 1 Hospitalization History [facility] for diabetes 09/2011 Hospitalization History [facility] diabetic issues 09/2015 Hospitalization History [facility] Pneumonia 01/2016 Hospitalization History [facility] of the left upper thigh-[facility] 04/2017 Hospitalization History [facility]patient psych 4 day stay 2013 Hospitalization History [place], unsure of blood sugar level 11/20/2017
--- OUTSIDE RECORDS SUMMARY | 2018-07-05 10:44 | XMS REPORT ---
Author Author NERISSA MARTINEZ [facility] Address [address] [place] [address] Care Team Providers Care Machine [place] Reporter Name Role Phone NERISSA MARTINEZ Unavailable PROBLEMS Type Condition ICD9-CM Code [id number] Code Onset Dates Condition Status SNOMED Code Problem Other male erectile dysfunction N52.8 Active 707929972 Problem Diabetes type 2, controlled E11.9 Active 29301741 Problem Obesity, unspecified E66.9 Active 018690318 Problem Gastro-esophageal reflux disease with esophagitis K21.0 Active 376622788 Problem Insomnia, unspecified G47.00 Active 647126121 Problem Anxiety F41.9 Active 45437427 Problem 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 Active 31524726 Problem Hypertriglyceridemia E78.1 Active 933296698 Problem Generalized anxiety disorder F41.1 Active 69707531 Problem Chronic fatigue R53.82 Active 34850761 Problem Type 2 diabetes mellitus 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 E11.9 Active 731431695 Problem BMI 45.0-49.9, adult Z68.42 Active 403728207 Problem Other chronic pain G89.29 Active 34564629 Problem Morbid obesity due to excess calories E66.01 Active 778856920 Problem Type 2 diabetes mellitus with hyperglycemia E11.65 Active 567747899 Problem Hypertension I10 Active 49743427 Problem Diabetes type 2, uncontrolled E11.65 Active 308528938 Problem Mild episode of recurrent major depressive disorder F33.0 Active 213362809 Problem Type 2 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 Active 66928704 Problem Hypogonadism in male E29.1 Active 45372786 Problem Seasonal allergies J30.2 Active 242208393 Problem Controlled type 2 diabetes mellitus without complication, without long -term current use of insulin E11.9 Active 543740243 Problem Diabetic polyneuropathy associated with type 2 diabetes mellitus E11.42 Active 28696901 Problem Polyneuropathy G62.9 Active 55136188 Problem 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 Active 716549005 Problem alf 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.4 Active 229844088 Problem Diverticulitis of small intestine without perforation or abscess without bleeding K57.12 Active 46931786 Problem GERD without esophagitis K21.9 Active 485035929 Problem Type 2 diabetes mellitus with hyperglycemia E11.65 Active 727948172 ALLERGIES No Information ENCOUNTERS Encounter Location Date Diagnosis [place] [id number] [place] [address] 66222- 8728 Jun, [facility] [address] 64667- 0489 May, [place] [id number] [place] [address] 59396- 0026 May, Uncontrolled type 2 diabetes mellitus with hyperglycemia E11.65 [place] [address] 09166- 0399 May, Uncontrolled type 2 diabetes mellitus with hyperglycemia E11.65 ; BMI 45.0-49.9, adult Z68.42 and Colitis K52.9 [place] [address] 43599- 1313 May, [place] [address] 01189- 8037 May, [facility] [id number] [place] [address] 54655 -8041 Apr, Colitis K52.9 ; Abdominal discomfort R10.9 and Anxiety F41.9 [place] [id number] [place] [address] 63041- 4964 Apr, [place] [id number] [place] [address] 63717- 2794 Apr, Colitis K52.9 and BMI 45.0-49.9, adult Z68.42 [place] [id number] [place] [address] 72309- 7620 Apr, Diabetes type 2, uncontrolled E11.65 [facility] [address] 38789- 2488 Apr, 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 ; Generalized anxiety disorder F41.1 and BMI 45.0-49.9, adult Z68.42 [place] [address] 90629- 2479 Apr, [facility] [address] 20904- 7359 Apr, BMI 45.0-49.9, adult Z68.42 [place] [address] 23414- 1810 Apr, Candidiasis B37.9 ; Pain in right shoulder M25.511 ; Pain in left shoulder M25.512 ; Other chronic pain G89.29 and Morbid obesity due to excess calories E66.01 [place] [address] 38771- 1118 Apr, Hypogonadism in male E29.1 [facility] [address] 35991 -3812 Mar, Yeast dermatitis B37.2 and Sensation of foreign body in throat R09.89 [place] [address] 32137- 9688 Mar, [place] [address] 03733- 3329 Mar, Hypogonadism in male E29.1 [facility] [address] 30948- 3122 Mar, Hypogonadism in male E29.1 [place] [address] 91922- 4878 Mar, [place] [address] 35288- 2628 Mar, Diabetes type 2, uncontrolled E11.65 and Hypogonadism in male E29.1 [place] [address] 00557- 7798 Mar, [facility] [id number] [place] [address] 81926- 8945 Feb, Diabetes type 2, controlled E11.9 ; Myalgia M79.1 and BMI 45.0-49.9, adult Z68.42 [facility] [id number] [place] [address] 54902 -7948 Feb, Hematuria, unspecified type R31.9 ; Side pain R10.9 and Rash R21 [place] [id number] [place] [address] 17259- 3727 January, [facility] [address] 43470- 8181 January, [place] [id number] [place] [address] 90365- 2933 January, [facility] [id number] [place] [address] 06559 -1293 January, Seasonal allergies J30.2 and BMI 45.0-49.9, adult Z68.42 [place] [id number] [place] [address] 41015- 6824 January, Chronic fatigue R53.82 ; Mild episode of recurrent major depressive disorder F33.0 and Polyneuropathy G62.9 [facility] [id number] [place] [address] 53824- 8933 January, Chronic fatigue R53.82 ; BMI 45.0-49.9, adult Z68.42 and Anxiety F41.9 [place] [id number] [place] [address] 58530- 9191 January, Generalized anxiety disorder F41.1 [place] [id number] [place] [address] 60972- 1181 Dec, 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 ; Generalized anxiety disorder F41.1 ; High risk medication use Z79.899 and BMI 45.0-49.9, adult Z68.42 [place] [address] [address] 5[address] Dec, [facility] [address] [place] [address] [id number] Dec, Encounter for dental examination Z01.20 [facility] [id number] [place] [address] 11172- 0839 Dec, Mild episode of recurrent major depressive disorder F33.0 ; Type 2 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 and alf 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.4 [facility] [address] [place] [address] 20755- 1939 Nov, [facility] [id number] [place] [address] 79401- 2566 Nov, BMI 45.0-49.9, adult Z68.42 ; 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 and Generalized anxiety disorder F41.1 [place] [address] [place] [address] 66439- 4328 Nov, Type 2 diabetes mellitus 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 E11.9 and alf 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.4 [facility] [id number] [place] [address] [id number] Oct, Dental examination Z01.20 and Dental caries K02.9 [facility] [address] [place] [address] 05241- 5253 Oct, [facility] [id number] [place] [address] 82831- 1388 Oct, BMI 45.0-49.9, adult Z68.42 ; 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 and Generalized anxiety disorder F41.1 [facility] [id number] [place] [address] 88976- 8328 Oct, [facility] [address] [place] [address] 69901- 5112 Oct, [facility] [id number] [place] [address] 21946- 5394 Oct, Hypertriglyceridemia E78.1 [facility] [id number] [place] [address] 950925- 0240 Oct, Hypertriglyceridemia E78.1 [facility] [address] [place] [address] 51176- 8552 Sep, Controlled type 2 diabetes mellitus without complication, without long-term current use of insulin E11.9 [facility] [id number] [place] [address] 45207- 4443 Sep, [facility] [id number] [place] [address] 19609- 8391 Sep, Controlled type 2 diabetes mellitus without complication, without long-term current use of insulin E11.9 [facility] [place] [id number] [place] [address] 17772- 7173 Sep, [place] [id number] [place] [address] 06896- 1918 Sep, [facility] [address] [place] [address] 03811- 9794 Sep, BMI 45.0-49.9, adult Z68.42 ; Diabetic polyneuropathy associated with type 2 diabetes mellitus E11.42 and Chronic fatigue R53.82 [place] [address], [place] [address]- 0387 Sep, [place] [id number] [place] [address] 50162- 2838 Sep, Hypertriglyceridemia E78.1 [facility] [address] [place] [address] 42097- 6499 Aug, [place] [id number] [place] [address] 63323- 8872 Aug, Generalized anxiety disorder F41.1 [facility] [address] [place] [address] 82197- 3937 Aug, [place] [address] [place] [address] 01659- 6465 Aug, Hypertriglyceridemia E78.1 [place] [id number] [place] [address] 69677- 9242 Jul, [place] [id number] [place] [address] 35193- 6543 Jul, [place] [id number] [place] [address] 30929- 0535 Jul, Generalized anxiety disorder F41.1 ; 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 ; BMI 45.0-49.9, adult Z68.42 and Patient's noncompliance with other medical treatment and regimen Z91.19 [place] [id number] [place] [address] 68776- 5903 Jul, Diabetes type 2, uncontrolled E11.65 ; Diabetic polyneuropathy associated with type 2 diabetes mellitus E11.42 ; Abdominal pain , right upper quadrant R10.11 and Low back pain radiating to left lower extremity M54.5 [place] [id number] [place] [address] 32047- 5879 Jul, Generalized anxiety disorder F41.1 [facility] [place] [id number] [place] [address] 59420- 4646 17 Jul, 2017 [place] [id number] [place] [address] 25809- 4547 Jul, Hypertriglyceridemia E78.1 [facility] [id number] [place] [address] 34844- 8702 Jul, Controlled type 2 diabetes mellitus without complication, without long-term current use of insulin E11.9 [facility] [id number] [place] [address] 14772- 9030 Jun, [place] [id number] [place] [address] 12262- 2695 Jun, Hypertriglyceridemia E78.1 [place] [id number] [place] [address] 04558- 4738 04 Jun, 2017 Controlled type 2 diabetes mellitus without complication, without long-term current use of insulin E11.9 [place] [id number] [place] [address] 02743- 8004 Jun, Generalized anxiety disorder F41.1 [facility] [address] 20931- 1684 02 Jun, 2017 Candidiasis B37.9 [facility] [address] 26813- 4874 May, [place] [address] 94087- 0078 18 May, 2017 Controlled type 2 diabetes mellitus without complication, without long-term current use of insulin E11.9 [place] [address] 54444- 3182 14 May, 2017 Hypertriglyceridemia E78.1 [facility] [address] 83479- 4620 May, Hypertriglyceridemia E78.1 [place] [address] 55801- 7758 May, Hypertriglyceridemia E78.1 and Hypotestosteronemia E34.9 [facility] [id number] [place] [address] 35438- 0478 14 May, 2017 Generalized anxiety disorder F41.1 [facility] [id number] [place] [address] 76731- 7528 05 May, 2017 [facility] [id number] [place] [address] 61359 -4754 May, Abscess and cellulitis L03.90 [facility] [address] [id number] Apr, [facility] [id number] [place] [address] 24082- 2749 Apr, [place] [address], [place] [address]- 5580 Apr, Dermatofibroma of back D23.5 [facility] [id number] [place] [address] 14695 -6563 Apr, Muscle strain of left thigh, initial encounter S76.912A [facility] [id number] [place] [address] 30702- 9499 Apr, [place] [id number] [place] [address] 99057- 5670 Apr, Generalized anxiety disorder F41.1 [place] [id number] [place] [address] 95813- 1866 Apr, Polyneuropathy G62.9 [place] [id number] [place] [address] 38828- 2253 Apr, GERD without esophagitis K21.9 [place] [address] [place] [address] 24368- 9326 Apr, Generalized anxiety disorder F41.1 ; Diastasis recti M62.08 and Controlled type 2 diabetes mellitus without complication, without long-term current use of insulin E11.9 [place] [address] [place] [address] 39009- 4432 Apr, Generalized anxiety disorder F41.1 ; 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 and Controlled type 2 diabetes mellitus without complication, without long-term current use of insulin E11.9 [place] [address], [place] [address]- 4214 Mar, Generalized anxiety disorder F41.1 ; Diastasis recti M62.08 and Controlled type 2 diabetes mellitus without complication, without long-term current use of insulin E11.9 [facility] [address], [place] [address]- 0238 Mar, Controlled type 2 diabetes mellitus without complication, without long-term current use of insulin E11.9 [place] [id number] [place] [address] 16787- 5030 Mar, Generalized anxiety disorder F41.1 [facility] [address] [place] [address] 48408- 0587 Mar, Generalized anxiety disorder F41.1 [facility] [address] [place] [address] 74709- 3625 Mar, Generalized anxiety disorder F41.1 [facility] [id number] [place] [address] 60713- 0985 Mar, Generalized anxiety disorder F41.1 [facility] [id number] [place] [address] 90607- 0952 Feb, Controlled type 2 diabetes mellitus without complication, without long-term current use of insulin E11.9 [facility] [address] [place] [address] 94968- 3354 Feb, Controlled type 2 diabetes mellitus without complication, without long-term current use of insulin E11.9 and Tinea cruris B35.6 [facility] [address] [place] [address] 61232- 2528 Feb, Diabetes type 2, controlled E11.9 [facility] [address] [place] [address] [id number] Feb, Dental examination Z01.20 [facility] [address] [place] [address] 39171- 1862 Feb, Dental examination Z01.20 [facility] [address] [place] [address] 30039- 3731 Feb, Generalized anxiety disorder F41.1 [facility] [address] [place] [address] 81045 -5385 Feb, Muscle spasm M62.838 and Diabetes type 2, controlled E11.9 [facility] [address], [place] [address]- 1764 Feb, Type 2 diabetes mellitus with hyperglycemia E11.65 [facility] [id number] [id number] Feb, Dental examination Z01.20 [facility] [id number] [place] [address] [id number] Feb, Encounter for dental examination Z01.20 [facility] [id number] [place] [address] 18369- 7692 Feb, Diabetes type 2, controlled E11.9 [place] [id number] [place] [address] 45574- 1590 Feb, Type 2 diabetes mellitus with hyperglycemia E11.65 [place] [address] 26058- 1365 Feb, [place] [id number] [place] [address] 62772- 0172 Feb, Controlled type 2 diabetes mellitus without complication, without long-term current use of insulin E11.9 [place] [id number] [place] [address] 80614- 9569 January, Candidiasis B37.9 [place] [address] 87886- 0718 January, Type 2 diabetes mellitus with hyperglycemia E11.65 ; Hypertension I10 and Anxiety F41.9 [place] [id number] [place] [address] 55124- 5668 January, Type 2 diabetes mellitus with hyperglycemia E11.65 [place] [id number] [place] [address] 21428- 3367 January, Controlled type 2 diabetes mellitus without complication, without long-term current use of insulin E11.9 [place] [address] 02666- 8078 January, Generalized anxiety disorder F41.1 ; 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 ; Foot callus L84 and Controlled type 2 diabetes mellitus without complication, without long-term current use of insulin E11.9 [place] [id number] [place] [address] 20268- 2524 Dec, [facility] [address] 49009- 8311 Dec, [place] [address] 13053- 5230 Dec, Foot callus L84 and Rash R21 [place] [address] 29991- 9376 Dec, Controlled type 2 diabetes mellitus without complication, without long-term current use of insulin E11.9 [place] [id number] [place] [address] 98384- 6953 Nov, [facility] [address] 43402 -6072 Nov, Sore throat J02.9 and Strep pharyngitis J02.0 [place] [address] 14545- 9838 Nov, Generalized anxiety disorder F41.1 [place] [address] 73920- 5761 Nov, [place] [address] 10248- 0567 Nov, [place] [id number] [place] [address] 09027- 5710 Nov, Type 2 diabetes mellitus with hyperglycemia E11.65 [place] [id number] [place] [address] 29866- 2643 Nov, Diabetes type 2, uncontrolled E11.65 and Localized edema R60.0 [place] [address] 44126- 3123 Nov, Controlled type 2 diabetes mellitus without complication, without long-term current use of insulin E11.9 [place] [id number] [place] [address] 02805- 7441 14 Feb, 2017 Generalized anxiety disorder F41.1 and 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 [facility] [address], [place] [address]- 5216 14 Oct, 2016 [facility] [address] [place] [address] 47536- 8131 13 Oct, 2016 Type 2 diabetes mellitus with hyperglycemia E11.65 [place] [address] [place] [address] 21278- 5465 09 Oct, 2016 Type 2 diabetes mellitus with hyperglycemia E11.65 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 [facility] [address], [place] [address]- 8394 Oct, [place] [address] [place] [address] 65869- 3847 Oct, [facility] [address] [place] [address] [id number] Oct, Encounter for dental examination Z01.20 [facility] [address] [place] [address] 52117- 1297 Sep, [place] [id number] [place] [address] 63185- 4952 Sep, Diabetes type 2, controlled E11.9 [facility] [address], [place] [address] -2459 Sep, Abdominal pain R10.9 and Diverticulitis of small intestine without perforation or abscess without bleeding K57.12 [facility] [address], [place] [address]- 0833 Sep, [facility] [address] [place] [address] 16465- 2090 Sep, Diabetes type 2, controlled E11.9 [facility] [address], [place] [address]- 3374 Sep, Controlled type 2 diabetes mellitus without complication, without long-term current use of insulin E11.9 [place] [id number] [place] [address] 22681- 7988 Sep, Type 2 diabetes mellitus 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 E11.9 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 [facility] [address] 60526 -0307 Aug, Lower abdominal pain R10.30 ; GERD without esophagitis K21.9 and Candidiasis of skin B37.[address] 10604- 1641 Aug, Controlled type 2 diabetes mellitus without complication, without long-term current use of insulin E11.9 and Diabetic polyneuropathy associated with type 2 diabetes mellitus E11.[address] 93771 -3822 Jul, Kelly infection of genital region B37.49 and Diabetes type 2, controlled E11.[address] 56459- 9138 Jul, Controlled type 2 diabetes mellitus without complication, without long-term current use of insulin E11.9 ; 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 and Acute pharyngitis due to other specified organisms J02.[address] 32449 -8178 Jul, Acute upper respiratory infection, unspecified J06.9 and Other viral agents as the cause of diseases classified elsewhere B97.89 [place] [id number] [place] [address] 26281- 9477 Jun, Generalized anxiety disorder F41.[address] 91287- 3977 Jun, [address] 85170- 1388 Jun, Diabetes type 2, controlled E11.9 and Polyneuropathy G62.[address] 49579- 6048 May, [facility] [address] [place] [address] 27360- 7891 May, Generalized anxiety disorder F41.1 [facility] [id number] [place] [address] 52868- 1530 15 May, 2016 Polyneuropathy G62.9 [facility] [id number] [place] [address] 88092- 9086 May, [facility] [id number] [place] [address] 06419- 0255 Apr, Anxiety disorder, unspecified F41.9 [facility] [id number] [place] [address] 92133- 1886 Mar, Abdominal pain, unspecified abdominal location R10.9 ; Type 2 diabetes mellitus with hyperglycemia E11.65 ; alf 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.4 and Diabetic polyneuropathy associated with type 2 diabetes mellitus E11.42 [place] [id number] [place] [address] 39286- 4008 Mar, Generalized anxiety disorder F41.1 [facility] [id number] [place] [address] 02437- 1018 Mar, Generalized abdominal pain R10.84 and Other male erectile dysfunction N52.8 [facility] [id number] [place] [address] 54481 -8942 Mar, [facility] [id number] [place] [address] 74490- 1074 Feb, Generalized anxiety disorder F41.1 [facility] [id number] [place] [address] 42920- 2849 Feb, Abdominal cramping R10.9 ; Acute bilateral low back pain without sciatica M54.5 and Malaise R53.81 [facility] [id number] [place] [address] 30321 -2005 Feb, Candidiasis B37.9 and Costochondritis M94.0 [facility] [id number] [place] [address] 61093 -3938 Feb, Allergic rhinitis, unspecified allergic rhinitis type J30.9 [facility] [id number] [place] [address] 84754- 9698 Feb, Generalized anxiety disorder F41.1 [facility] [id number] [place] [address] 67984- 6261 Feb, [facility] [id number] [place] [address] 43883- 1506 Feb, Major depressive disorder, recurrent, moderate F33.1 [facility] [id number] [place] [address] 93979- 4149 Feb, Generalized anxiety disorder F41.1 [facility] [id number] [place] [address] 52154- 1113 January, Unspecified infectious disease B99.9 [facility] [id number] [place] [address] [id number] January, Dental examination Z01.20 [facility] [id number] [place] [address] 14013- 7079 January, [facility] [id number] [place] [address] 38234- 2166 January, Diabetes type 2, uncontrolled E11.65 [facility] [id number] [place] [address] 79406 -3614 January, Wheezing R06.2 and History of pneumonia Z87.01 [facility] [id number] [place] [address] 78414- 7628 January, [facility] [id number] [place] [address] 44623- 7535 January, Depression, major, recurrent, moderate F33.1 [facility] [id number] [place] [address] 47991- 8646 January, [facility] [facility] [address] [id number], [place] [address]- 2821 January, Depression, major, recurrent, moderate F33.1 [facility] [address] [facility] [id number] [place] [address] 69001- 5909 January, [facility] [id number] [place] [address] 29021- 6733 Dec, Depression, major, recurrent, moderate F33.1 [facility] [address] [facility] [id number] [place] [address] 60628- 6764 Dec, Dental examination Z01.20 [facility] [id number] [place] [address] [id number] Dec, Dental examination Z01.20 [facility] [id number] [place] [address] 17834- 3955 Dec, Generalized anxiety disorder F41.1 [facility] [id number] [place] [address] 74216- 3184 Dec, Generalized anxiety disorder F41.1 [facility] [id number] [place] [address] 82054- 2209 Nov, [facility] [id number] [place] [address] 22902- 5269 Nov, [facility] [id number] [place] [address] 17769- 0111 Nov, Generalized anxiety disorder F41.1 [facility] [address] [place] [address] [id number] Nov, Dental examination Z01.20 [facility] [address] [facility] [id number] [place] [address] 18036- 5804 Nov, [facility] [id number] [place] [address] [id number] 8441 Nov, Generalized anxiety disorder F41.1 and 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 [facility] [id number] [place] [address] 15207- 3522 Nov, Depression, major, recurrent, moderate F33.1 [facility] [id number] [place] [address] 73221- 2744 Nov, [facility] [id number] [place] [address] 74004- 4496 Nov, Diabetes type 2, uncontrolled E11.65 and Hypertension I10 [facility] [id number] [place] [address] [id number] Nov, 2015 Dental examination Z01.20 [facility] [id number] [place] [address] 54701- 3016 Nov, [facility] [address] 03454- 7117 Nov, Depression, major, recurrent, moderate F33.1 [facility] [address] 43620 -3789 Nov, Penile abrasion S30.812A [facility] [id number] [place] [address] 63877- 7804 Oct, Generalized anxiety disorder F41.1 [facility] [address] 21672- 4970 Oct, Depression, major, recurrent, moderate F33.1 [facility] [id number] [place] [address] 22189- 3553 Oct, Diabetes type 2, controlled E11.9 and Malaise R53.81 [facility] [id number] [place] [address] 98895- 6137 17 Oct, 2015 [facility] [id number] [place] [address] 40271- 1249 16 Oct, 2015 [facility] [id number] [place] [address] 07947- 7951 Oct, [facility] [address] [place] [address]- 9672 Oct, Depression, major, recurrent, moderate F33.1 [facility] [address] 92106- 7805 Oct, Generalized anxiety disorder F41.1 and 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 [facility] [address] 20823- 0840 Oct, [facility] [address] 29708- 7640 Oct, Major depressive disorder, recurrent, moderate F33.1 [place] [address] 01728- 0083 Oct, [facility] [id number] [place] [address] 69940- 3897 Oct, [facility] [address] 56337- 9350 Oct, Generalized anxiety disorder F41.1 [facility] [id number] [place] [address] 87955- 1281 Oct, [facility] [id number] [place] [address] 67141- 5620 Oct, Back muscle spasm M62.830 [facility] [id number] [place] [address] 35363- 0182 Oct, Major depressive disorder, recurrent, moderate F33.1 [facility] [id number] [place] [address] 70647 -9300 Sep, Back muscle spasm M62.830 ; Allergic rhinitis J30.9 and Person with feared health complaint in whom no diagnosis is made Z71.1 [facility] [address] [place] [address] 32374- 7806 Sep, Generalized anxiety disorder F41.1 [facility] [id number] [place] [address] 99820 -7235 15 Sep, 2015 [place] [address] [place] [address] 65214- 4073 15 Sep, 2015 [facility] [id number] [place] [address] 96698- 2048 13 Sep, 2015 Mood disorder F39 ; Diabetes type 2, controlled E11.9 ; Morbid obesity due to excess calories E66.01 and Edema, unspecified type R60.9 [place] [id number] [place] [address] 97819- 8436 13 Sep, 2015 Generalized anxiety disorder F41.1 [place] [id number] [place] [address] 57131- 5735 11 Sep, 2015 [place] [id number] [place] [address] 52585- 9930 07 Sep, 2015 Adjustment disorder with mixed anxiety and depressed mood F43.23 and Depression F32.9 [place] [id number] [place] [address] 98579- 2315 06 Sep, 2015 Generalized anxiety disorder F41.1 [place] [id number] [place] [address] 90866- 1485 05 Sep, 2015 Generalized anxiety disorder 300.02 and Autism spectrum disorder F84.[address] [id number] [id number] Aug, Encounter for dental examination Z01.20 [facility] [address] [address]- 6884 16 Aug, 2015 [facility] [address] [place] [address] 99939 -0202 17 Jul, 2015 Candidiasis B37.9 [facility] [address] [place] [address] 65575- 6909 13 Jul, [address] [id number] [id number] 12 Jul, 2015 Encounter for dental examination Z01.20 [place] [address] [place] [address] 88081- 1701 Jul, [place] [id number] [place] [address] 80127- 4365 Jun, [facility] [id number] [place] [address] 78001- 4967 30 May, 2015 Diabetes type 2, controlled 250.00 and Neuropathy 355.9 [place] [id number] [place] [address] 08649- 7794 May, [facility] [id number] [place] [address] 05999- 0906 Apr, Generalized anxiety disorder 300.02 and Autism spectrum disorder 299.00 [place] [id number] [place] [address] 76942- 6669 Apr, Abrasion, foot 917.0 ; Chest pain 786.50 and Back pain 724.5 [place] [id number] [place] [address] 50028- 2624 Apr, Generalized anxiety disorder 300.02 [place] [id number] [place] [address] 28953- 6615 Feb, Anxiety state, unspecified 300.00 [place] [id number] [place] [address] 00082- 3068 Feb, Diabetes mellitus without mention of complication, type II or unspecified type, not stated as uncontrolled 250.00 ; Generalized anxiety disorder 300.02 ; Morbid obesity 278.01 ; Benign essential hypertension 401.1 ; Chronic pain 338.29 ; Screen for STD (sexually transmitted disease) V74.5 ; Dysuria 788.1 and Kelly infection of genital region 112.2 [place] [id number] [place] [address] 55926- 0227 Feb, [place] [id number] [place] [address] 50097- 2829 January, Generalized anxiety disorder 300.02 and Autism spectrum disorder 299.00 [facility] [address] [id number] [place] [address]- 4915 30 Dec, 2014 [facility] [place] [facility] [address] [id number] [place] [address]- 8389 14 Dec, 2014 [facility] [place] [facility] [address] [facility] [id number] [place] [address]- 6048 Dec, [facility] [place] [facility] [address] [id number] [place] [address]- 0866 Nov, [facility] [address] [facility] [id number] [place] [id number] Nov, [facility] [place] [facility] [address] [id number] [place] [address]- 8079 Nov, [facility] [place] [facility] [address] [facility] [id number] [place] [address]- 1649 Nov, [facility] [address] [id number] Nov, [facility] [place] [facility] [id number] [place] 7009 Oct, [facility] [place] [facility] [id number] 8405 Jul, [facility] [place] [facility] [address] [facility] [id number] [place] [address]- 3679 Jul, [facility] [place] [facility] [address] [facility] [id number], [place] [address]- 6288 Jul, [facility] [place] [facility] [address] [facility] [id number], [place] [address]- 3860 Jul, [facility] [place] [facility] [address] [facility] [id number], [place] [address]- 1977 Jul, [facility] [place] [facility] [address] [facility] [id number], [place] [address]- 2282 Jul, [facility] [place] [facility] [address] [facility] [id number], [place] [address]- 7305 Jul, [facility] [place] [facility] [address] [id number] [place] [address]- 2485 Jul, [facility] [place] [facility] [address] [id number] [place] [address]- 2448 Jul, [facility] [place] [facility] [address] [id number] [place] [address]- 9342 Jul, [facility] [place] [facility] [address] [id number] [place] [address]- 1660 Jun, [facility] [place] [facility] [address] [id number] [place] [address]- 6217 Jun, [facility] [place] [facility] [address] [id number] [place] [address]- 9798 Jun, [facility] [place] [facility] [address] [id number] [place] [address]- 5006 Jun, [facility] [place] [facility] [address] [id number] [place] [address]- 2096 Jun, [facility] [place] [facility] [address] [id number] [place] [address]- 1394 Jun, [facility] [place] [facility] [address] [id number] [place] [address]- 1055 Jun, [facility] [place] [facility] [address] [id number], [place] [address]- 2498 30 May, 2014 [facility] [place] [facility] [address] [id number], [place] [address]- 5248 30 May, 2014 [facility] [place] [facility] [address] [id number] [place] [address]- 6840 12 May, 2014 [facility] [place] [facility] [address] [id number] [place] [address]- 2605 12 May, 2014 [facility] [place] [facility] [address] [id number] [place] [address]- 4338 10 May, 2014 [facility] [place] [facility] [address] [id number] [place] [address]- 7549 May, [facility] [place] [facility] [address] [id number] [place] [address]- 5977 May, [facility] [place] [facility] [address] [id number] [place] [address]- 7868 May, [facility] [place] [facility] [address] [id number] [place] [address]- 2901 Apr, [facility] [place] [facility] [address] [id number] [place] [address]- 5659 Apr, [facility] [place] [facility] [address] [id number] [place] [address]- 4186 Apr, [facility] [place] [facility] [address] [id number] [place] [address]- 0461 Apr, [facility] [place] [facility] [address] [id number] [place] [address]- 2536 Apr, [facility] [place] [facility] [address] [id number] [place] [address]- 0770 Apr, [facility] [place] [facility] [address] [id number] [place] [address]- 4874 Apr, [facility] [place] [facility] [address] [id number] [place] [address]- 3388 Apr, [facility] [place] [facility] [address] [id number] [place] [address]- 6843 Apr, [facility] [place] [facility] [address] [id number] [place] [address]- 0553 Mar, [facility] [place] [facility] [address] [id number] [place] [address]- 1219 Mar, [facility] [place] [facility] [address] [id number] [place] [address]- 0896 Mar, [facility] [place] [facility] [address] [id number] [place] [address]- 5352 Mar, [facility] [place] [facility] [address] [id number] [place] [address]- 0859 14 Mar, 2014 [facility] [place] [facility] [address] [id number] [place] [address]- 4666 Mar, [facility] [place] [facility] [address] [id number] [place] [address]- 8035 Feb, [facility] [place] [facility] [address] [id number] [place] [address]- 1688 Feb, [facility] [place] [facility] [address] [id number] [place] [address]- 4326 Feb, [facility] [place] [facility] [address] [id number] [place] [address]- 6624 January, [facility] [place] [facility] [address] [id number] [place] [address]- 7364 January, [facility] [place] [facility] [address] [id number] [place] [address]- 0968 January, [facility] [place] [facility] [address] [id number] [place] [address]- 7394 January, [facility] [place] [facility] [address] [id number] [place] [address]- 5507 January, [facility] [place] [facility] [address] [id number] [place] [address]- 1884 January, [facility] [place] [facility] [address] [id number] [place] [address]- 9916 Dec, [facility] [place] [facility] [address] [id number] [place] [address]- 2654 Dec, [facility] [place] [facility] [address] [id number] [place] [address]- 2179 Dec, [facility] [place] [facility] [address] [id number] [place] [address]- 8325 Dec, [facility] [place] [facility] [address] [id number], [place] [address]- 6319 Nov, [facility] [address] [id number] [place] [address]- 2337 Nov, [facility] [place] [facility] [address] [id number] [place] [address]- 4943 Oct, [facility] [place] [facility] [address] [id number] [place] [address]- 5112 Oct, [facility] [place] [facility] [address] [id number] [place] [address]- 5752 Sep, [facility] [address] [id number] [place] [address]- 9460 Sep, [facility] [place] [facility] [address] [id number] [place] [address]- 8267 Aug, [facility] [address] [id number] [place] [address]- 8012 Aug, [facility] [place] [facility] [address] [id number] [place] [address]- 8152 Aug, [facility] [address] [id number] [place] [address]- 9894 Jul, [facility] [place] [facility] [address] [facility] [id number] [place] [address]- 5542 Jul, [facility] [place] [facility] [address] [id number] [place] [address]- 4106 Jul, [facility] [place] [facility] [address] [id number] [place] [address]- 0118 Jul, [facility] [place] [facility] [address] [id number] [place] [address]- 9693 Jul, [facility] [place] [facility] [address] [id number] [place] 4071 17 May, 2013 [facility] [place] [facility] [address] [facility] [id number], [place] [address]- 8742 11 May, 2013 [facility] [place] [facility] [address] [id number] [place] [address]- 4743 Apr, [facility] [place] [facility] [address] [id number] [place] [address]- 0006 Apr, [facility] [place] [facility] [address] [id number] [place] [address]- 3871 Mar, [facility] [place] [facility] [address] [id number] [place] [address]- 2082 Mar, [facility] [place] [facility] [address] [id number] [place] [address]- 3580 Mar, [facility] [place] [facility] [address] [id number] [place] [address]- 9722 Mar, [facility] [place] [facility] [address] [id number] [place] [address]- 3131 Feb, [facility] [place] [facility] [address] [id number] [place] [address]- 6928 Feb, [facility] [place] [facility] [address] [id number] [place] [address]- 5863 Feb, [facility] [place] [facility] [address] [id number] [place] [address]- 0206 Feb, [facility] [place] [facility] [address] [id number] [place] [address]- 6664 Feb, [facility] [place] [facility] [address] [id number] [place] [address]- 3651 January, [facility] [place] [facility] [address] [id number] [place] [address]- 7548 January, [facility] [place] [facility] [address] [id number] [place] [address]- 4560 January, [facility] [place] [facility] [address] [id number] [place] [address]- 6505 January, [facility] [place] [facility] [address] [id number] [place] [address] Dec, [facility] [address] [id number] [place] [address] 24 Dec, 2012 [facility] [place] [facility] [address] [id number] [place] [address] 18 Dec, 2012 [facility] [place] [facility] [address] [id number] [place] [address] 10 Dec, 2012 [facility] [place] [facility] [address] [id number] [place] [address] Nov, [facility] [place] [facility] [address] [id number] [place] [address] Nov, [facility] [place] [facility] [address] [id number] [place] [address] Oct, [facility] [place] [facility] [address] [id number] [place] [address] Aug, [facility] [place] [facility] [address] [id number] [place] [address] Aug, [facility] [place] [facility] [address] [id number] [place] [address] Dec, [facility] [place] [facility] [address] [id number] [place] [address] Dec, [facility] [place] [facility] [address] [id number] [place] [address] Dec, [facility] [place] [facility] [address] [id number] [place] [address] Nov, [facility] [place] [facility] [address] [id number] [place] [address] 15 Nov, 2011 [facility] [place] [facility] [address] [id number] [place] [address] Oct, [facility] [place] [facility] [address] [id number] [place] [address]- [address] 07 Oct, 2011 [facility] [place] [facility] [address] [id number] [place] [address]46 02 Oct, 2011 [facility] [address] [id number] [place] [address] Sep, [facility] [address] [id number] [place] [address] Sep, [facility] [address] [id number] [place] [address] Sep, [facility] [address] [id number] [place] [address] Sep, [facility] [address] [id number] [place] [address] Sep, [facility] [address] [id number] [place] [address] 280[address] Sep, [facility] [address] [id number] [place] [address]- [address] Sep, [facility] [address] [id number] [place] [address] Sep, [facility] [address] [id number] [place] [address] Jul, [facility] [address] [id number] [place] [address] 15 Jul, 2011 [facility] [address] [id number] [place] [address]- [address] 15 Jul, 2011 [facility] [address] [id number] [place] [address] 14 Nov, 2010 [facility] [address] [id number] [place] [address]- [address] 17 Aug, 2010 [facility] [address] [id number] [place] [address] 17 Aug, 2010 [facility] [address] [id number] [place] [address]- 267[address] 16 Aug, 2010 [facility] [address] [id number] [place] [address] 15 Aug, 2010 [facility] [place] [facility] [address] [id number] [place] [address]- [address] 09 Aug, 2010 [facility] [place] [facility] [address] [id number] [place] [address] Jul, [facility] [place] [facility] [address] [id number] [place] [address] Jun, [facility] [place] [facility] [address] [id number] [place] [address] Jun, [facility] [place] [facility] [address] [id number] [place] [address] Sep, [facility] [place] [facility] [address] [id number] [place] [address] Aug, [facility] [place] [facility] [address] [id number] [place] [address] Aug, [facility] [place] [facility] [address] [id number] [place] [address] 08 Aug, 2009 [facility] [place] [facility] [address] [id number], [place] [address] 14 Jun, 2009 [facility] [place] [facility] [address] [id number], [place] [address] 14 Jun, 2009 [facility] [place] [facility] [address] [id number], [place] [address] 14 May, 2009 [facility] [place] [facility] [address] [id number] [place] [address] 17 Apr, 2009 [facility] [place] [facility] [address] [id number], [place] [address] 16 Mar, 2009 [facility] [place] [facility] [address] [id number], [place] [address] 14 Jan, 2009 [facility] [place] [facility] [address] [id number] [place] [id number] Oct, IMMUNIZATIONS No Known Immunizations SOCIAL HISTORY [...] surgery at age 1 Hospitalization History [facility] 09/2011 Hospitalization History [facility] diabetic issues 09/2015 Hospitalization History [facility] Pneumonia 01/2016 Hospitalization History celluitis of the left upper thigh-[facility] 04/2017 [facility] [place]- Shaking, unsure of blood sugar level 11/20/2017
--- OUTSIDE RECORDS SUMMARY | 2018-07-05 10:45 | XMS REPORT ---
Author Author NERISSA MARTINEZ [facility] Address [address] [place] [address] Care Team Providers Care Relations Specialist Name Role Phone NERISSA MARTINEZ Unavailable PROBLEMS Type Condition ICD9-CM Code UMF84-JK Code Onset Dates Condition Status SNOMED Code Problem Other male erectile dysfunction N52.8 Active 591598818 Problem Diabetes type 2, controlled E11.9 Active 17532851 Problem Obesity, unspecified E66.9 Active 580182118 Problem Gastro-esophageal reflux disease with esophagitis K21.0 Active 940150668 Problem Insomnia, unspecified G47.00 Active 070854623 Problem Anxiety F41.9 Active 29922402 Problem 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 Active 95468111 Problem Hypertriglyceridemia E78.1 Active 891117527 Problem Generalized anxiety disorder F41.1 Active 50650021 Problem Chronic fatigue R53.82 Active 05538258 Problem Type 2 diabetes mellitus 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 E11.9 Active 152855131 Problem BMI 45.0-49.9, adult Z68.42 Active 741910721 Problem Other chronic pain G89.29 Active 69992628 Problem Morbid obesity due to excess calories E66.01 Active 098685900 Problem Type 2 diabetes mellitus with hyperglycemia E11.65 Active 972504629 Problem Hypertension I10 Active 98685199 Problem Diabetes type 2, uncontrolled E11.65 Active 073372711 Problem Mild episode of recurrent major depressive disorder F33.0 Active 226045940 Problem Type 2 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 Active 32025265 Problem Hypogonadism in male E29.1 Active 55268510 Problem Seasonal allergies J30.2 Active 877390160 Problem Controlled type 2 diabetes mellitus without complication, without long -term current use of insulin E11.9 Active 448063172 Problem Diabetic polyneuropathy associated with type 2 diabetes mellitus E11.42 Active 59836138 Problem Polyneuropathy G62.9 Active 77248126 Problem 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 Active 004409961 Problem nursing home 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.4 Active 715827901 Problem Diverticulitis of small intestine without perforation or abscess without bleeding K57.12 Active 98645825 Problem GERD without esophagitis K21.9 Active 705410323 Problem Type 2 diabetes mellitus with hyperglycemia E11.65 Active 494415063 ALLERGIES No Information ENCOUNTERS Encounter Location Date Diagnosis [place] [id number] [place] [address] 48942- 3613 Jun, [facility] [address] 38632- 8555 May, [place] [id number] [place] [address] 82756- 9750 May, Uncontrolled type 2 diabetes mellitus with hyperglycemia E11.65 [place] [address] 24067- 9814 May, Uncontrolled type 2 diabetes mellitus with hyperglycemia E11.65 ; BMI 45.0-49.9, adult Z68.42 and Colitis K52.9 [place] [address] 17132- 0950 May, [place] [address] 30926- 5470 May, [facility] [id number] [place] [address] 55611 -2267 Apr, Colitis K52.9 ; Abdominal discomfort R10.9 and Anxiety F41.9 [place] [id number] [place] [address] 85761- 9016 Apr, [place] [id number] [place] [address] 01880- 3347 Apr, Colitis K52.9 and BMI 45.0-49.9, adult Z68.42 [place] [id number] [place] [address] 08964- 7879 Apr, Diabetes type 2, uncontrolled E11.65 [facility] [address] 91013- 5082 Apr, 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 ; Generalized anxiety disorder F41.1 and BMI 45.0-49.9, adult Z68.42 [place] [address] 97296- 2823 Apr, [facility] [address] 34678- 6693 Apr, BMI 45.0-49.9, adult Z68.42 [place] [address] 70393- 3371 Apr, Candidiasis B37.9 ; Pain in right shoulder M25.511 ; Pain in left shoulder M25.512 ; Other chronic pain G89.29 and Morbid obesity due to excess calories E66.01 [place] [address] 27633- 8308 Apr, Hypogonadism in male E29.1 [facility] [address] 15687 -0541 Mar, Yeast dermatitis B37.2 and Sensation of foreign body in throat R09.89 [place] [address] 02018- 5067 Mar, [place] [address] 82823- 2569 Mar, Hypogonadism in male E29.1 [place] [address] 46941- 3246 Mar, Hypogonadism in male E29.1 [place] [address] 80703- 5687 Mar, [place] [address] 40160- 0369 Mar, Diabetes type 2, uncontrolled E11.65 and Hypogonadism in male E29.1 [place] [address] 84277- 5420 Mar, [facility] [id number] [place] [address] 99225- 4277 Feb, Diabetes type 2, controlled E11.9 ; Myalgia M79.1 and BMI 45.0-49.9, adult Z68.42 [facility] [id number] [place] [address] 95006 -5027 Feb, Hematuria, unspecified type R31.9 ; Side pain R10.9 and Rash R21 [place] [id number] [place] [address] 12123- 1828 January, [place] [address] 82599- 3355 January, [place] [id number] [place] [address] 95236- 5013 January, [facility] [id number] [place] [address] 47822 -4781 January, Seasonal allergies J30.2 and BMI 45.0-49.9, adult Z68.42 [place] [id number] [place] [address] 09038- 5977 January, Chronic fatigue R53.82 ; Mild episode of recurrent major depressive disorder F33.0 and Polyneuropathy G62.9 [place] [id number] [place] [address] 82476- 2952 January, Chronic fatigue R53.82 ; BMI 45.0-49.9, adult Z68.42 and Anxiety F41.9 [place] [id number] [place] [address] 32576- 2758 January, Generalized anxiety disorder F41.1 [place] [id number] [place] [address] 57313- 9142 Dec, 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 ; Generalized anxiety disorder F41.1 ; High risk medication use Z79.899 and BMI 45.0-49.9, adult Z68.42 [place] [address] [address]239 Dec, [facility] [address] [place] [address] [id number] Dec, Encounter for dental examination Z01.20 [facility] [id number] [place] [address] 01559- 8257 Dec, Mild episode of recurrent major depressive disorder F33.0 ; Type 2 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 and nursing home 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.4 [facility] [address] [place] [address] 84026- 0625 Nov, [facility] [id number] [place] [address] 27292- 0628 Nov, BMI 45.0-49.9, adult Z68.42 ; 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 and Generalized anxiety disorder F41.1 [place] [address] [place] [address] 69058- 7914 Nov, Type 2 diabetes mellitus 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 E11.9 and nursing home 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.4 [facility] [id number] [place] [address] [phone] Oct, Dental examination Z01.20 and Dental caries K02.9 [facility] [address] [place] [address] 01882- 8936 Oct, [facility] [id number] [place] [address] 74865- 2503 Oct, BMI 45.0-49.9, adult Z68.42 ; 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 and Generalized anxiety disorder F41.1 [facility] [id number] [place] [address] 37876- 7979 Oct, [facility] [address] [place] [address] 87206- 7517 Oct, [facility] [id number] [place] [address] 90149- 4043 Oct, Hypertriglyceridemia E78.1 [facility] [id number] [place] [address] 987131- 1060 Oct, Hypertriglyceridemia E78.1 [facility] [address] [place] [address] 47421- 2587 Sep, Controlled type 2 diabetes mellitus without complication, without long-term current use of insulin E11.9 [facility] [id number] [place] [address] 65460- 8425 Sep, [facility] [id number] [place] [address] 23279- 6860 Sep, Controlled type 2 diabetes mellitus without complication, without long-term current use of insulin E11.9 [place] [id number] [place] [address] 46693- 2028 Sep, [place] [id number] [place] [address] 97739- 5369 Sep, [facility] [address] [place] [address] 75602- 2223 Sep, BMI 45.0-49.9, adult Z68.42 ; Diabetic polyneuropathy associated with type 2 diabetes mellitus E11.42 and Chronic fatigue R53.82 [place] [address] [address]- 8904 Sep, [place] [id number] [place] [address] 84561- 2765 Sep, Hypertriglyceridemia E78.1 [facility] [address] [place] [address] 06393- 0512 Aug, [place] [id number] [place] [address] 05078- 0640 Aug, Generalized anxiety disorder F41.1 [facility] [address] [place] [address] 45571- 6579 Aug, [place] [address] [place] [address] 35437- 9597 Aug, Hypertriglyceridemia E78.1 [place] [id number] [place] [address] 55826- 2265 Jul, [place] [id number] [place] [address] 28658- 8247 Jul, [place] [id number] [place] [address] 38591- 8041 Jul, Generalized anxiety disorder F41.1 ; 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 ; BMI 45.0-49.9, adult Z68.42 and Patient's noncompliance with other medical treatment and regimen Z91.19 [place] [id number] [place] [address] 53742- 3084 Jul, Diabetes type 2, uncontrolled E11.65 ; Diabetic polyneuropathy associated with type 2 diabetes mellitus E11.42 ; Abdominal pain , right upper quadrant R10.11 and Low back pain radiating to left lower extremity M54.5 [place] [id number] [place] [address] 10292- 2780 Jul, Generalized anxiety disorder F41.1 [place] [id number] [place] [address] 46361- 2191 17 Jul, 2017 [place] [id number] [place] [address] 33600- 2539 Jul, Hypertriglyceridemia E78.1 [place] [id number] [place] [address] 79767- 8182 Jul, Controlled type 2 diabetes mellitus without complication, without long-term current use of insulin E11.9 [place] [id number] [place] [address] 29332- 6964 Jun, [place] [id number] [place] [address] 46361- 0192 Jun, Hypertriglyceridemia E78.1 [place] [id number] [place] [address] 90484- 1045 04 Jun, 2017 Controlled type 2 diabetes mellitus without complication, without long-term current use of insulin E11.9 [place] [id number] [place] [address] 27676- 0520 Jun, Generalized anxiety disorder F41.1 [facility] [address] 98867- 5694 02 Jun, 2017 Candidiasis B37.9 [facility] [address] 52633- 2337 May, [place] [address] 85495- 1383 18 May, 2017 Controlled type 2 diabetes mellitus without complication, without long-term current use of insulin E11.9 [place] [address] 72387- 3478 14 May, 2017 Hypertriglyceridemia E78.1 [facility] [address] 36055- 5306 May, Hypertriglyceridemia E78.1 [place] [address] 23093- 9764 May, Hypertriglyceridemia E78.1 and Hypotestosteronemia E34.9 [facility] [id number] [place] [address] 63843- 0569 14 May, 2017 Generalized anxiety disorder F41.1 [facility] [id number] [place] [address] 31169- 0007 05 May, 2017 [facility] [id number] [place] [address] 76146 -4818 May, Abscess and cellulitis L03.90 [facility] [address] [id number] Apr, [facility] [id number] [place] [address] 40417- 4462 Apr, [facility] [address] [address]- 6358 Apr, Dermatofibroma of back D23.5 [facility] [id number] [place] [address] 36801 -5399 Apr, Muscle strain of left thigh, initial encounter S76.912A [facility] [id number] [place] [address] 09606- 7458 Apr, [place] [id number] [place] [address] 55652- 6928 Apr, Generalized anxiety disorder F41.1 [place] [id number] [place] [address] 57056- 7694 Apr, Polyneuropathy G62.9 [place] [id number] [place] [address] 73206- 2846 Apr, GERD without esophagitis K21.9 [place] [address] [place] [address] 21480- 0199 Apr, Generalized anxiety disorder F41.1 ; Diastasis recti M62.08 and Controlled type 2 diabetes mellitus without complication, without long-term current use of insulin E11.9 [place] [address] [place] [address] 53534- 4527 Apr, Generalized anxiety disorder F41.1 ; 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 and Controlled type 2 diabetes mellitus without complication, without long-term current use of insulin E11.9 [place] [address] [address]- 3451 Mar, Generalized anxiety disorder F41.1 ; Diastasis recti M62.08 and Controlled type 2 diabetes mellitus without complication, without long-term current use of insulin E11.9 [place] [address] [address]- 1213 Mar, Controlled type 2 diabetes mellitus without complication, without long-term current use of insulin E11.9 [place] [id number] [place] [address] 29785- 5457 Mar, Generalized anxiety disorder F41.1 [facility] [address] [place] [address] 46647- 2104 Mar, Generalized anxiety disorder F41.1 [facility] [address] [place] [address] 24703- 9337 Mar, Generalized anxiety disorder F41.1 [facility] [id number] [place] [address] 97622- 5459 Mar, Generalized anxiety disorder F41.1 [facility] [id number] [place] [address] 25767- 9467 Feb, Controlled type 2 diabetes mellitus without complication, without long-term current use of insulin E11.9 [facility] [address] [place] [address] 44908- 8172 Feb, Controlled type 2 diabetes mellitus without complication, without long-term current use of insulin E11.9 and Tinea cruris B35.6 [facility] [address] [place] [address] 96599- 1271 Feb, Diabetes type 2, controlled E11.9 [facility] [address] [place] [address] [id number] Feb, Dental examination Z01.20 [facility] [address] [place] [address] 03876- 1590 Feb, Dental examination Z01.20 [facility] [address] [place] [address] 76013- 0306 Feb, Generalized anxiety disorder F41.1 [facility] [address] [place] [address] 28841 -9208 Feb, Muscle spasm M62.838 and Diabetes type 2, controlled E11.9 [facility] [address] [address]- 0174 Feb, Type 2 diabetes mellitus with hyperglycemia E11.65 [facility] [id number] [id number] Feb, Dental examination Z01.20 [facility] [id number] [place] [address] [id number] Feb, Encounter for dental examination Z01.20 [facility] [id number] [place] [address] 42973- 8266 Feb, Diabetes type 2, controlled E11.9 [place] [id number] [place] [address] 68541- 5627 Feb, Type 2 diabetes mellitus with hyperglycemia E11.65 [place] [address] 18795- 9511 Feb, [place] [id number] [place] [address] 20030- 4965 Feb, Controlled type 2 diabetes mellitus without complication, without long-term current use of insulin E11.9 [place] [id number] [place] [address] 88053- 8868 January, Candidiasis B37.9 [place] [address] 24720- 2262 January, Type 2 diabetes mellitus with hyperglycemia E11.65 ; Hypertension I10 and Anxiety F41.9 [place] [id number] [place] [address] 72740- 9411 January, Type 2 diabetes mellitus with hyperglycemia E11.65 [place] [id number] [place] [address] 28429- 8439 January, Controlled type 2 diabetes mellitus without complication, without long-term current use of insulin E11.9 [place] [address] 86188- 5903 January, Generalized anxiety disorder F41.1 ; 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 ; Foot callus L84 and Controlled type 2 diabetes mellitus without complication, without long-term current use of insulin E11.9 [place] [id number] [place] [address] 56215- 6758 Dec, [facility] [address] 27756- 4658 Dec, [place] [address] 05355- 3476 Dec, Foot callus L84 and Rash R21 [place] [address] 42396- 3354 Dec, Controlled type 2 diabetes mellitus without complication, without long-term current use of insulin E11.9 [place] [id number] [place] [address] 43178- 7717 Nov, [facility] [address] 58870 -3025 Nov, Sore throat J02.9 and Strep pharyngitis J02.0 [place] [address] 66999- 1831 Nov, Generalized anxiety disorder F41.1 [place] [address] 40431- 3740 Nov, [place] [address] 12648- 5031 Nov, [place] [id number] [place] [address] 47473- 8702 Nov, Type 2 diabetes mellitus with hyperglycemia E11.65 [place] [id number] [place] [address] 09503- 3337 Nov, Diabetes type 2, uncontrolled E11.65 and Localized edema R60.0 [place] [address] 20261- 3630 Nov, Controlled type 2 diabetes mellitus without complication, without long-term current use of insulin E11.9 [place] [id number] [place] [address] 31061- 2243 14 Feb, 2017 Generalized anxiety disorder F41.1 and 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 [facility] [address] [address]- 6903 14 Oct, 2016 [facility] [address] [place] [address] 18346- 6304 13 Oct, 2016 Type 2 diabetes mellitus with hyperglycemia E11.65 [place] [address] [place] [address] 32313- 3105 09 Oct, 2016 Type 2 diabetes mellitus with hyperglycemia E11.65 and emt intermediate 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.4 [facility] [address] [address]- 5058 Oct, [place] [id number] [place] [address] 35794- 6212 Oct, [facility] [address] [place] [address] [id number] Oct, Encounter for dental examination Z01.20 [facility] [address] [place] [address] 03984- 4432 Sep, [place] [id number] [place] [address] 57856- 0538 Sep, Diabetes type 2, controlled E11.9 [facility] [address] [address] -7107 Sep, Abdominal pain R10.9 and Diverticulitis of small intestine without perforation or abscess without bleeding K57.12 [facility] [address] [address]- 8255 Sep, [facility] [address] [place] [address] 16563- 2455 Sep, Diabetes type 2, controlled E11.9 [facility] [address] [address]- 0270 Sep, Controlled type 2 diabetes mellitus without complication, without long-term current use of insulin E11.9 [facility] [id number] [place] [address] 41407- 6211 Sep, Type 2 diabetes mellitus 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 E11.9 and emt intermediate 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.4 [facility] [place] [address] 10735 -9120 Aug, Lower abdominal pain R10.30 ; GERD without esophagitis K21.9 and Candidiasis of skin B37.[address] [address] Aug, Controlled type 2 diabetes mellitus without complication, without long-term current use of insulin E11.9 and Diabetic polyneuropathy associated with type 2 diabetes mellitus E11.[address] [address] Jul, Kelly infection of genital region B37.49 and Diabetes type 2, controlled E11.[address] [address] Jul, Controlled type 2 diabetes mellitus without complication, without long-term current use of insulin E11.9 ; 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 and Acute pharyngitis due to other specified organisms J02.[address] [address] Jul, Acute upper respiratory infection, unspecified J06.9 and Other viral agents as the cause of diseases classified elsewhere B97.89 [place] [id number] [place] [address] Jun, Generalized anxiety disorder F41.[address] [address] Jun, [address] [address] Jun, Diabetes type 2, controlled E11.[address] G[address] [address] May, [facility] [id number] [place] [address] May, Generalized anxiety disorder F41.1 [facility] [id number] [place] [address] 15 May, 2016 Polyneuropathy G62.9 [facility] [id number] [place] [address] May, [facility] [place] [id number] [place] [address] 95166- 3657 Apr, Anxiety disorder, unspecified F41.9 [facility] [id number] [place] [address] 72506- 7262 Mar, Abdominal pain, unspecified abdominal location R10.9 ; Type 2 diabetes mellitus with hyperglycemia E11.65 ; nursing home 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.4 and Diabetic polyneuropathy associated with type 2 diabetes mellitus E11.42 [place] [id number] [place] [address] 17591- 5304 Mar, Generalized anxiety disorder F41.1 [facility] [id number] [place] [address] 78659- 6863 Mar, Generalized abdominal pain R10.84 and Other male erectile dysfunction N52.8 [facility] [id number] [place] [address] 87030 -8034 Mar, [facility] [id number] [place] [address] 00857- 6155 Feb, Generalized anxiety disorder F41.1 [facility] [id number] [place] [address] 84861- 3952 Feb, Abdominal cramping R10.9 ; Acute bilateral low back pain without sciatica M54.5 and Malaise R53.81 [facility] [id number] [place] [address] 80735 -3134 Feb, Candidiasis B37.9 and Costochondritis M94.0 [facility] [id number] [place] [address] 09279 -1984 Feb, Allergic rhinitis, unspecified allergic rhinitis type J30.9 [facility] [id number] [place] [address] 13178- 7084 Feb, Generalized anxiety disorder F41.1 [facility] [id number] [place] [address] 72504- 8085 Feb, [facility] [id number] [place] [address] 38526- 7349 Feb, Major depressive disorder, recurrent, moderate F33.1 [place] [id number] [place] [address] 32550- 0287 Feb, Generalized anxiety disorder F41.1 [facility] [id number] [place] [address] 36272- 6342 January, Unspecified infectious disease B99.9 [facility] [id number] [place] [address] [id number] January, Dental examination Z01.20 [facility] [id number] [place] [address] 37272- 2325 January, [facility] [id number] [place] [address] 91970- 7130 January, Diabetes type 2, uncontrolled E11.65 [facility] [id number] [place] [address] 91262 -4625 January, Wheezing R06.2 and History of pneumonia Z87.01 [facility] [id number] [place] [address] 17250- 6708 January, [facility] [id number] [place] [address] 31506- 1361 January, Depression, major, recurrent, moderate F33.1 [facility] [id number] [place] [address] 69207- 3946 January, [place] [address] [id number] [address]- 1016 January, Depression, major, recurrent, moderate F33.1 [facility] [address] [facility] [id number] [place] [address] 84930- 6000 January, [facility] [id number] [place] [address] 30751- 2630 Dec, Depression, major, recurrent, moderate F33.1 [facility] [address] [facility] [id number] [place] [address] 05338- 1547 Dec, Dental examination Z01.20 [facility] [id number] [place] [address] [id number] Dec, Dental examination Z01.20 [facility] [id number] [place] [address] 58300- 3091 Dec, Generalized anxiety disorder F41.1 [facility] [id number] [place] [address] 22237- 1554 Dec, Generalized anxiety disorder F41.1 [facility] [id number] [place] [address] 31378- 1229 Nov, [facility] [id number] [place] [address] 14920- 4209 Nov, [facility] [id number] [place] [address] 74052- 7721 Nov, Generalized anxiety disorder F41.1 [facility] [id number] [place] [address] [id number] Nov, Dental examination Z01.20 [facility] [address] [facility] [id number] [place] [address] 76195- 8967 Nov, [facility] [id number] [place] [address] [id number]- 4024 Nov, Generalized anxiety disorder F41.1 and 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 [facility] [id number] [place] [address] 85110- 1615 Nov, Depression, major, recurrent, moderate F33.1 [facility] [id number] [place] [address] 35521- 1390 Nov, [facility] [id number] [place] [address] 56491- 8249 Nov, Diabetes type 2, uncontrolled E11.65 and Hypertension I10 [facility] [id number] [place] [address] [id number] 14 Nov, 2015 Dental examination Z01.20 [facility] [id number] [place] [address] 80355- 1329 Nov, [facility] [address] 84252- 6919 Nov, Depression, major, recurrent, moderate F33.1 [facility] [address] 15722 -3096 Nov, Penile abrasion S30.812A [facility] [id number] [place] [address] 96158- 2779 Oct, Generalized anxiety disorder F41.1 [facility] [address] 14146- 9340 Oct, Depression, major, recurrent, moderate F33.1 [facility] [id number] [place] [address] 95283- 2273 Oct, Diabetes type 2, controlled E11.9 and Malaise R53.81 [facility] [id number] [place] [address] 49776- 3690 17 Oct, 2015 [facility] [id number] [place] [address] 90743- 4455 16 Oct, 2015 [facility] [id number] [place] [address] 96082- 6568 Oct, [facility] [address] [place] [address] 1949 Oct, Depression, major, recurrent, moderate F33.1 [facility] [address] 86630- 7355 Oct, Generalized anxiety disorder F41.1 and 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 [facility] [address] 75672- 6142 Oct, [facility] [address] 02700- 7408 Oct, Major depressive disorder, recurrent, moderate F33.1 [place] [address] 10932- 9134 Oct, [facility] [id number] [place] [address] 03052- 0311 Oct, [facility] [address] 01492- 8748 Oct, Generalized anxiety disorder F41.1 [facility] [id number] [place] [address] 17705- 3668 Oct, [facility] [id number] [place] [address] 02132- 7302 Oct, Back muscle spasm M62.830 [facility] [id number] [place] [address] 56930- 6676 Oct, Major depressive disorder, recurrent, moderate F33.1 [facility] [id number] [place] [address] 19563 -0130 Sep, Back muscle spasm M62.830 ; Allergic rhinitis J30.9 and Person with feared health complaint in whom no diagnosis is made Z71.1 [facility] [id number] [place] [address] 16756- 2781 Sep, Generalized anxiety disorder F41.1 [facility] [id number] [place] [address] 92406 -6026 15 Sep, 2015 [address] [id number] [place] [address] 50272- 2916 15 Sep, 2015 [facility] [id number] [place] [address] 42768- 0622 13 Sep, 2015 Mood disorder F39 ; Diabetes type 2, controlled E11.9 ; Morbid obesity due to excess calories E66.01 and Edema, unspecified type R60.9 [place] [id number] [place] [address] 79846- 3587 13 Sep, 2015 Generalized anxiety disorder F41.1 [place] [id number] [place] [address] 55915- 5309 11 Sep, 2015 [place] [id number] [place] [address] 75555- 5463 07 Sep, 2015 Adjustment disorder with mixed anxiety and depressed mood F43.23 and Depression F32.9 [place] [id number] [place] [address] 41885- 7824 06 Sep, 2015 Generalized anxiety disorder F41.1 [place] [id number] [place] [address] 25618- 9959 05 Sep, 2015 Generalized anxiety disorder 300.02 and Autism spectrum disorder F84.[address] [id number] [id number] Aug, Encounter for dental examination Z01.20 [facility] [address] [address]- 0850 16 Aug, 2015 [facility] [id number] [place] [address] 43663 -5295 17 Jul, 2015 Candidiasis B37.9 [facility] [id number] [place] [address] 44752- 0318 13 Jul, [address] [id number] [id number] 12 Jul, 2015 Encounter for dental examination Z01.20 [place] [id number] [place] [address] 66473- 7669 Jul, [place] [id number] [place] [address] 40591- 0431 Jun, [facility] [id number] [place] [address] 17239- 2232 30 May, 2015 Diabetes type 2, controlled 250.00 and Neuropathy 355.9 [place] [id number] [place] [address] 11427- 9566 May, [place] [id number] [place] [address] 22594- 9344 Apr, Generalized anxiety disorder 300.02 and Autism spectrum disorder 299.00 [id number] [place] [address] 48894- 1062 Apr, Abrasion, foot 917.0 ; Chest pain 786.50 and Back pain 724.5 [id number] [place] [address] 24722- 3544 Apr, Generalized anxiety disorder 300.02 [id number] [place] [address] 43716- 2387 Feb, Anxiety state, unspecified 300.00 [id number] [place] [address] 38860- 7584 Feb, Diabetes mellitus without mention of complication, type II or unspecified type, not stated as uncontrolled 250.00 ; Generalized anxiety disorder 300.02 ; Morbid obesity 278.01 ; Benign essential hypertension 401.1 ; Chronic pain 338.29 ; Screen for STD (sexually transmitted disease) V74.5 ; Dysuria 788.1 and Kelly infection of genital region 112.2 [place] [id number] [place] [address] 43320- 3978 Feb, [place] [id number] [place] [address] 71062- 9946 January, Generalized anxiety disorder 300.02 and Autism spectrum disorder 299.00 [facility] [address] [id number] [place] [address]- 6646 30 Dec, 2014 [facility] [place] [facility] [address] [id number] [place] [address]- 2548 14 Dec, 2014 [facility] [place] [facility] [address] [facility] [id number] [place] [address]- 2065 Dec, [facility] [place] [facility] [address] [id number] [place] [address]- 2875 Nov, [facility] [address] [facility] [id number] [place] [id number] Nov, [facility] [place] [facility] [address] [id number] [place] [address]- 3303 Nov, [facility] [place] [facility] [address] [facility] [id number] [place] [address]- 9506 Nov, [facility] [address] [id number] Nov, [facility] [place] [facility] [address] [id number] 4788 Oct, [facility] [place] [facility] [address] [id number] 7891 Jul, [facility] [place] [facility] [address] [facility] [id number] [place] [address]- 0447 Jul, [facility] [place] [facility] [address] [facility] [id number], [place] [address]- 4372 Jul, [facility] [place] [facility] [address] [facility] [id number], [place] [address]- 6581 Jul, [facility] [place] [facility] [address] [facility] [id number], [place] [address]- 4354 Jul, [facility] [place] [facility] [address] [facility] [id number], [place] [address]- 8086 Jul, [facility] [place] [facility] [address] [facility] [id number], [place] [address]- 0794 Jul, [facility] [place] [facility] [address] [id number] [place] [address]- 4992 Jul, [facility] [place] [facility] [address] [id number] [place] [address]- 2152 Jul, [facility] [place] [facility] [address] [id number] [place] [address]- 5922 Jul, [facility] [place] [facility] [address] [id number] [place] [address]- 9362 Jun, [facility] [place] [facility] [address] [id number] [place] [address]- 8995 Jun, [facility] [place] [facility] [address] [id number] [place] [address]- 8782 Jun, [facility] [place] [facility] [address] [id number] [place] [address]- 5152 Jun, [facility] [place] [facility] [address] [id number] [place] [address]- 6542 Jun, [facility] [place] [facility] [address] [id number] [place] [address]- 5204 Jun, [facility] [place] [facility] [address] [id number] [place] [address]- 2117 Jun, [facility] [place] [facility] [address] [id number], [place] [address]- 9049 30 May, 2014 [facility] [place] [facility] [address] [id number], [place] [address]- 6662 30 May, 2014 [facility] [place] [facility] [address] [id number] [place] [address]- 3647 12 May, 2014 [facility] [place] [facility] [address] [id number] [place] [address]- 1437 12 May, 2014 [facility] [place] [facility] [address] [id number] [place] [address]- 0201 10 May, 2014 [facility] [place] [facility] [address] [id number] [place] [address]- 6668 May, [facility] [place] [facility] [address] [id number] [place] [address]- 8923 May, [facility] [place] [facility] [address] [id number] [place] [address]- 0963 May, [facility] [place] [facility] [address] [id number] [place] [address]- 4678 Apr, [facility] [place] [facility] [address] [id number] [place] [address]- 4721 Apr, [facility] [place] [facility] [address] [id number] [place] [address]- 7426 Apr, [facility] [place] [facility] [address] [id number] [place] [address]- 7307 Apr, [facility] [place] [facility] [address] [id number] [place] [address]- 4677 Apr, [facility] [place] [facility] [address] [id number] [place] [address]- 2749 Apr, [facility] [place] [facility] [address] [id number] [place] [address]- 7429 Apr, [facility] [place] [facility] [address] [id number] [place] [address]- 6932 Apr, [facility] [place] [facility] [address] [id number] [place] [address]- 0024 Apr, [facility] [place] [facility] [address] [id number] [place] [address]- 6816 Mar, [facility] [place] [facility] [address] [id number] [place] [address]- 9262 Mar, [facility] [place] [facility] [address] [id number] [place] [address]- 8844 Mar, [facility] [place] [facility] [address] [id number] [place] [address]- 4371 Mar, [facility] [place] [facility] [address] [id number] [place] [address]- 7255 14 Mar, 2014 [facility] [place] [facility] [address] [id number] [place] [address]- 1044 Mar, [facility] [place] [facility] [address] [id number] [place] [address]- 3781 Feb, [facility] [place] [facility] [address] [id number] [place] [address]- 4218 Feb, [facility] [place] [facility] [address] [id number] [place] [address]- 7943 Feb, [facility] [place] [facility] [address] [id number] [place] [address]- 1580 January, [facility] [place] [facility] [address] [id number] [place] [address]- 5517 January, [facility] [place] [facility] [address] [id number] [place] [address]- 5892 January, [facility] [place] [facility] [address] [id number] [place] [address]- 9609 January, [facility] [place] [facility] [address] [id number] [place] [address]- 2333 January, [facility] [place] [facility] [address] [id number] [place] [address]- 3454 January, [facility] [place] [facility] [address] [id number] [place] [address]- 9136 Dec, [facility] [place] [facility] [address] [id number] [place] [address]- 7256 Dec, [facility] [place] [facility] [address] [id number] [place] [address]- 5900 Dec, [facility] [place] [facility] [address] [id number] [place] [address]- 4089 Dec, [facility] [place] [facility] [address] [id number], [place] [address]- 0845 Nov, [facility] [address] [id number] [place] [address]- 6467 Nov, [facility] [place] [facility] [address] [id number] [place] [address]- 5695 Oct, [facility] [place] [facility] [address] [id number] [place] [address]- 1757 Oct, [facility] [place] [facility] [address] [id number] [place] [address]- 7596 Sep, [facility] [address] [id number] [place] [address]- 7497 Sep, [facility] [place] [facility] [address] [id number] [place] [address]- 8051 Aug, [facility] [address] [id number] [place] [address]- 0688 Aug, [facility] [place] [facility] [address] [id number] [place] [address]- 0054 Aug, [facility] [address] [id number] [place] [address]- 4623 Jul, [facility] [place] [facility] [address] [facility] [id number] [place] [address]- 8577 Jul, [facility] [place] [facility] [address] [id number] [place] [address]- 9496 Jul, [facility] [place] [facility] [address] [id number] [place] [address]- 1237 Jul, [facility] [place] [facility] [address] [id number] [place] [address]- 2569 Jul, [facility] [place] [facility] [address] [id number] [place] 4334 17 May, 2013 [facility] [place] [facility] [address] [facility] [id number], [place] [address]- 9758 11 May, 2013 [facility] [place] [facility] [address] [id number] [place] [address]- 2589 Apr, [facility] [place] [facility] [address] [id number] [place] [address]- 0470 Apr, [facility] [place] [facility] [address] [id number] [place] [address]- 6181 Mar, [facility] [place] [facility] [address] [id number] [place] [address] Mar, [facility] [place] [facility] [address] [id number] [place] [address] Mar, [facility] [place] [facility] [address] [id number] [place] [address] Mar, [facility] [place] [facility] [address] [id number] [place] [address] Feb, [facility] [place] [facility] [address] [id number] [place] [address] Feb, [facility] [place] [facility] [address] [id number] [place] [address] Feb, [facility] [place] [facility] [address] [id number] [place] [address] Feb, [facility] [place] [facility] [address] [id number] [place] [address] Feb, [facility] [place] [facility] [address] [id number] [place] [address] January, [facility] [place] [facility] [address] [id number] [place] [address] January, [facility] [place] [facility] [address] [id number] [place] [address] January, [facility] [place] [facility] [address] [id number] [place] [address] January, [facility] [place] [facility] [address] [id number] [place] [address] Dec, [facility] [address] [id number] [place] [address] 24 Dec, 2012 [facility] [place] [facility] [address] [id number] [place] [address] 18 Dec, 2012 [facility] [place] [facility] [address] [id number] [place] [address] 10 Dec, 2012 [facility] [place] [facility] [address] [id number] [place] [address] Nov, [facility] [place] [facility] [address] [id number] [place] [address] Nov, [facility] [place] [facility] [address] [id number] [place] [address] Oct, [facility] [place] [facility] [address] [id number] [place] [address] Aug, [facility] [place] [facility] [address] [id number] [place] [address] Aug, [facility] [place] [facility] [address] [id number] [place] [address]- [address] Dec, [facility] [place] [facility] [address] [id number] [place] [address] Dec, [facility] [place] [facility] [address] [id number] [place] [address] Dec, [facility] [place] [facility] [address] [id number] [place] [address] Nov, [facility] [place] [facility] [address] [id number] [place] [address] 15 Nov, 2011 [facility] [place] [facility] [address] [id number] [place] [address] Oct, [facility] [place] [facility] [address] [id number] [place] [address] 07 Oct, 2011 [facility] [place] [facility] [address] [id number] [place] [address] 02 Oct, 2011 [facility] [address] [id number] [place] [address] Sep, [facility] [address] [id number] [place] [address] Sep, [facility] [address] [id number] [place] [address] Sep, [facility] [address] [id number] [place] [address] Sep, [facility] [address] [id number] [place] [address] Sep, [facility] [address] [id number] [place] [address] Sep, [facility] [address] [id number] [place] [address] Sep, [facility] [address] [id number] [place] [address] Sep, [facility] [address] [id number] [place] [address] Jul, [facility] [address] [id number] [place] [address] 15 Jul, 2011 [facility] [address] [id number] [place] [address] 15 Jul, 2011 [facility] [address] [id number] [place] [address]- [address] 14 Nov, 2010 [facility] [address] [id number] [place] [address]- [address] 17 Aug, 2010 [facility] [address] [id number] [place] [address]- [address] 17 Aug, 2010 [facility] [address] [id number] [place] [address]- [address] 16 Aug, 2010 [facility] [address] [id number] [place] [place] [address] 15 Aug, 2010 [facility] [place] [facility] [address] [id number] [place] [address] 09 Aug, 2010 [facility] [place] [facility] [address] [id number] [place] [address] Jul, [facility] [place] [facility] [address] [id number] [place] [address] Jun, [facility] [place] [facility] [address] [id number] [place] [address] Jun, [facility] [place] [facility] [address] [id number] [place] [address] Sep, [facility] [place] [facility] [address] [id number] [place] [address] Aug, [facility] [place] [facility] [address] [id number] [place] [address] Aug, [facility] [place] [facility] [address] [id number] [place] [address] 08 Aug, 2009 [facility] [place] [facility] [address] [id number] [address] 14 Jun, 2009 [facility] [place] [facility] [address] [id number], [place] [address] 14 Jun, 2009 [facility] [place] [facility] [address] [id number], [place] [address] 14 May, 2009 [facility] [place] [facility] [address] [id number] [place] [address] 17 Apr, 2009 [facility] [place] [facility] [address] [id number] [address] 16 Mar, 2009 [facility] [place] [facility] [address] [id number] [address] 14 Jan, 2009 [facility] [place] [facility] [address] [id number] [place] [address] Oct, IMMUNIZATIONS No Known Immunizations SOCIAL HISTORY Never Assessed REASON FOR VISIT medication refill PLAN OF CARE VITAL SIGNS MEDICATIONS Medication Instructions Dosage Frequency Start Date End Date Duration Status Depo-Testosterone 100 MG/ML Intramuscular once monthly 1 ml Mar, Active RESULTS No Results PROCEDURES No Known [...] Hospitalization History celluitis of the left upper thigh-[facility] 04/2017 Hospitalization History [facility]-inpatient psych 4 day stay 2013 Hospitalization History [facility] [place]- Shaking, unsure of blood sugar level 11/20/2017
--- OUTSIDE RECORDS SUMMARY | 2018-07-05 10:46 | XMS REPORT ---
Author Author XIN JENNIFER [facility] Address [address] [place] [address] Care Team Providers Care Library Attendant Name Role Phone XIN JENNIFER Unavailable PROBLEMS Type Condition ICD9-CM Code PLC68-JN Code Onset Dates Condition Status SNOMED Code Problem Other male erectile dysfunction N52.8 Active 716952806 Problem Diabetes type 2, controlled E11.9 Active 56366598 Problem Obesity, unspecified E66.9 Active 935531673 Problem Gastro-esophageal reflux disease with esophagitis K21.0 Active 146613603 Problem Insomnia, unspecified G47.00 Active 699679841 Problem Anxiety F41.9 Active 56875634 Problem 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 Active 48801912 Problem Hypertriglyceridemia E78.1 Active 598790842 Problem Generalized anxiety disorder F41.1 Active 09511943 Problem Chronic fatigue R53.82 Active 08520917 Problem Type 2 diabetes mellitus 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 E11.9 Active 936456003 Problem BMI 45.0-49.9, adult Z68.42 Active 615169397 Problem Other chronic pain G89.29 Active 35504970 Problem Morbid obesity due to excess calories E66.01 Active 610151106 Problem Type 2 diabetes mellitus with hyperglycemia E11.65 Active 214298287 Problem Hypertension I10 Active 51853800 Problem Diabetes type 2, uncontrolled E11.65 Active 997906113 Problem Mild episode of recurrent major depressive disorder F33.0 Active 842570543 Problem Type 2 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 Active 99855010 Problem Hypogonadism in male E29.1 Active 86049768 Problem Seasonal allergies J30.2 Active 516411489 Problem Controlled type 2 diabetes mellitus without complication, without long -term current use of insulin E11.9 Active 258277376 Problem Diabetic polyneuropathy associated with type 2 diabetes mellitus E11.42 Active 02031478 Problem Polyneuropathy G62.9 Active 35349054 Problem 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 Active 501810274 Problem [facility] 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.4 Active 481989378 Problem Diverticulitis of small intestine without perforation or abscess without bleeding K57.12 Active 45724690 Problem GERD without esophagitis K21.9 Active 770765739 Problem Type 2 diabetes mellitus with hyperglycemia E11.65 Active 159939556 ALLERGIES No Information ENCOUNTERS Encounter Location Date Diagnosis [place] [id number] [place] [address] 37091- 6260 Jun, [facility] [address] 61307- 9489 May, [facility] [address] 26368- 7597 May, Uncontrolled type 2 diabetes mellitus with hyperglycemia E11.65 [place] [id number] [place] [address] 26516- 0260 May, Uncontrolled type 2 diabetes mellitus with hyperglycemia E11.65 ; BMI 45.0-49.9, adult Z68.42 and Colitis K52.9 [place] [id number] [place] [address] 51988- 3977 May, [place] [address] 50693- 3284 May, [facility] [id number] [place] [address] 13869 -8648 Apr, Colitis K52.9 ; Abdominal discomfort R10.9 and Anxiety F41.9 [facility] [id number] [place] [address] 76765- 2204 Apr, [facility] [id number] [place] [address] 63966- 4710 Apr, Colitis K52.9 and BMI 45.0-49.9, adult Z68.42 [place] [id number] [place] [address] 20008- 7882 Apr, Diabetes type 2, uncontrolled E11.65 [facility] [address] 89303- 8630 Apr, 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 ; Generalized anxiety disorder F41.1 and BMI 45.0-49.9, adult Z68.42 [place] [id number] [place] [address] 58307- 3876 Apr, [place] [address] 84799- 4513 Apr, BMI 45.0-49.9, adult Z68.42 [place] [address] 09897- 1813 Apr, Candidiasis B37.9 ; Pain in right shoulder M25.511 ; Pain in left shoulder M25.512 ; Other chronic pain G89.29 and Morbid obesity due to excess calories E66.01 [place] [id number] [place] [address] 54003- 7629 Apr, Hypogonadism in male E29.1 [facility] [id number] [place] [address] 16420 -5231 Mar, Yeast dermatitis B37.2 and Sensation of foreign body in throat R09.89 [place] [id number] [place] [address] 76594- 9718 Mar, [place] [id number] [place] [address] 69724- 4706 Mar, Hypogonadism in male E29.1 [place] [id number] [place] [address] 58573- 4995 Mar, Hypogonadism in male E29.1 [place] [id number] [place] [address] 25013- 2536 Mar, [place] [id number] [place] [address] 17865- 3183 Mar, Diabetes type 2, uncontrolled E11.65 and Hypogonadism in male E29.1 [place] [address] 81091- 4656 Mar, [facility] [id number] [place] [address] 18908- 7124 Feb, Diabetes type 2, controlled E11.9 ; Myalgia M79.1 and BMI 45.0-49.9, adult Z68.42 [facility] [id number] [place] [address] 02288 -1284 Feb, Hematuria, unspecified type R31.9 ; Side pain R10.9 and Rash R21 [place] [id number] [place] [address] 07108- 0160 January, [place] [address] 14370- 1951 January, [place] [id number] [place] [address] 42941- 7383 January, [facility] [id number] [place] [address] 28375 -2446 January, Seasonal allergies J30.2 and BMI 45.0-49.9, adult Z68.42 [place] [id number] [place] [address] 37688- 4163 January, Chronic fatigue R53.82 ; Mild episode of recurrent major depressive disorder F33.0 and Polyneuropathy G62.9 [place] [id number] [place] [address] 68110- 3147 January, Chronic fatigue R53.82 ; BMI 45.0-49.9, adult Z68.42 and Anxiety F41.9 [place] [id number] [place] [address] 75041- 0766 January, Generalized anxiety disorder F41.1 [place] [id number] [place] [address] 02593- 4461 Dec, 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 ; Generalized anxiety disorder F41.1 ; High risk medication use Z79.899 and BMI 45.0-49.9, adult Z68.42 [facility] [address] [address]- 7[address] Dec, [facility] [id number] [place] [address] [id number] Dec, 2017 Encounter for dental examination Z01.20 [facility] [id number] [place] [address] 15564- 0675 Dec, Mild episode of recurrent major depressive disorder F33.0 ; Type 2 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 and [facility] 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.4 [facility] [address] [place] [address] 68767- 0480 Nov, [place] [id number] [place] [address] 11220- 8935 Nov, BMI 45.0-49.9, adult Z68.42 ; 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 and Generalized anxiety disorder F41.1 [facility] [address] [place] [address] 76953- 9314 Nov, Type 2 diabetes mellitus 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 E11.9 and [facility] 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.4 [facility] [address] [place] [address] [phone] Oct, Dental examination Z01.20 and Dental caries K02.9 [facility] [address] [place] [address] 98784- 4379 Oct, [facility] [id number] [place] [address] 78107- 1464 Oct, BMI 45.0-49.9, adult Z68.42 ; 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 and Generalized anxiety disorder F41.1 [facility] [id number] [place] [address] 19420- 3083 Oct, [facility] [id number] [place] [address] 10383- 0584 Oct, [place] [address] [place] [place] [address]- 1772 Oct, Hypertriglyceridemia E78.1 [facility] [id number] [place] [address] 692444- 0472 Oct, Hypertriglyceridemia E78.1 [facility] [address] [place] [address] 27976- 3009 Sep, Controlled type 2 diabetes mellitus without complication, without long-term current use of insulin E11.9 [facility] [id number] [place] [address] 91482- 2395 Sep, [place] [id number] [place] [address] 68936- 9203 Sep, Controlled type 2 diabetes mellitus without complication, without long-term current use of insulin E11.9 [place] [id number] [place] [address] 71207- 9574 Sep, [place] [id number] [place] [address] 03635- 6320 Sep, [facility] [id number] [place] [address] 91174- 2505 Sep, BMI 45.0-49.9, adult Z68.42 ; Diabetic polyneuropathy associated with type 2 diabetes mellitus E11.42 and Chronic fatigue R53.82 [place] [address] [address]- 3209 Sep, [place] [id number] [place] [address] 22119- 1065 Sep, Hypertriglyceridemia E78.1 [place] [id number] [place] [address] 95973- 7958 Aug, [place] [id number] [place] [address] 27990- 8648 Aug, Generalized anxiety disorder F41.1 [place] [id number] [place] [address] 60082- 2238 Aug, [facility] [id number] [place] [address] 14347- 5228 Aug, Hypertriglyceridemia E78.1 [place] [id number] [place] [address] 95693- 5204 Jul, [place] [id number] [place] [address] 77207- 4892 Jul, [place] [id number] [place] [address] 52031- 1318 Jul, Generalized anxiety disorder F41.1 ; 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 ; BMI 45.0-49.9, adult Z68.42 and Patient's noncompliance with other medical treatment and regimen Z91.19 [place] [id number] [place] [address] 95247- 8141 Jul, Diabetes type 2, uncontrolled E11.65 ; Diabetic polyneuropathy associated with type 2 diabetes mellitus E11.42 ; Abdominal pain , right upper quadrant R10.11 and Low back pain radiating to left lower extremity M54.5 [place] [id number] [place] [address] 51323- 7684 Jul, Generalized anxiety disorder F41.1 [place] [id number] [place] [address] 66932- 3483 17 Jul, 2017 [place] [id number] [place] [address] 46540- 0767 Jul, Hypertriglyceridemia E78.1 [place] [id number] [place] [address] 29936- 0441 06 Jul, 2017 Controlled type 2 diabetes mellitus without complication, without long-term current use of insulin E11.9 [place] [id number] [place] [address] 04874- 7907 Jun, [place] [id number] [place] [address] 20646- 6463 Jun, Hypertriglyceridemia E78.1 [place] [address] [place] [address] 10735- 0325 Jun, Controlled type 2 diabetes mellitus without complication, without long-term current use of insulin E11.9 [facility] [id number] [place] [address] 55005- 4844 Jun, Generalized anxiety disorder F41.1 [facility] [id number] [place] [address] 67363- 9374 Jun, Candidiasis B37.9 [facility] [id number] [place] [address] 15649- 2828 May, [place] [address] 61518- 5067 18 May, 2017 Controlled type 2 diabetes mellitus without complication, without long-term current use of insulin E11.9 [facility] [id number] [place] [address] 27644- 3966 14 May, 2017 Hypertriglyceridemia E78.1 [facility] [id number] [place] [address] 60483- 1712 May, Hypertriglyceridemia E78.1 [place] [id number] [place] [address] 94146- 7529 14 May, 2017 Hypertriglyceridemia E78.1 and Hypotestosteronemia E34.9 [facility] [id number] [place] [address] 74120- 6943 May, Generalized anxiety disorder F41.1 [facility] [id number] [place] [address] 84452- 9856 05 May, 2017 [facility] [id number] [place] [address] 21267 -8039 May, Abscess and cellulitis L03.90 [facility] [id number] [place] [address] [id number] Apr, [facility] [id number] [place] [address] 77389- 7563 Apr, [place] [address] [address]- 7977 Apr, Dermatofibroma of back D23.5 [facility] [id number] [place] [address] 00793 -1841 Apr, Muscle strain of left thigh, initial encounter S76.912A [place] [id number] [place] [address] 40543- 2396 Apr, [place] [id number] [place] [address] 79203- 5157 Apr, Generalized anxiety disorder F41.1 [place] [id number] [place] [address] 24840- 2845 Apr, Polyneuropathy G62.9 [place] [id number] [place] [address] 85250- 3481 Apr, GERD without esophagitis K21.9 [place] [id number] [place] [address] 90066- 4892 Apr, Generalized anxiety disorder F41.1 ; Diastasis recti M62.08 and Controlled type 2 diabetes mellitus without complication, without long-term current use of insulin E11.9 [place] [address] [address]- 8670 Apr, Generalized anxiety disorder F41.1 ; 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 and Controlled type 2 diabetes mellitus without complication, without long-term current use of insulin E11.9 [place] [address] [address]- 4149 Mar, Generalized anxiety disorder F41.1 ; Diastasis recti M62.08 and Controlled type 2 diabetes mellitus without complication, without long-term current use of insulin E11.9 [place] [address] [address]- 2845 Mar, Controlled type 2 diabetes mellitus without complication, without long-term current use of insulin E11.9 [facility] [id number] [address]- 9231 Mar, Generalized anxiety disorder F41.1 [facility] [id number] [place] [address] 75183- 5606 Mar, Generalized anxiety disorder F41.1 [facility] [id number] [place] [address] 31710- 9822 Mar, Generalized anxiety disorder F41.1 [facility] [id number] [place] [address] 30207- 6869 Mar, Generalized anxiety disorder F41.1 [facility] [id number] [place] [address] 49956- 5195 Feb, Controlled type 2 diabetes mellitus without complication, without long-term current use of insulin E11.9 [facility] [address] [place] [address] 16819- 7762 Feb, Controlled type 2 diabetes mellitus without complication, without long-term current use of insulin E11.9 and Tinea cruris B35.6 [facility] [address] [place] [address] 41881- 5294 Feb, Diabetes type 2, controlled E11.9 [facility] [id number] [place] [address] [id number] Feb, Dental examination Z01.20 [facility] [id number] [place] [address] 19232- 6521 Feb, Dental examination Z01.20 [facility] [id number] [place] [address] 28290- 0198 Feb, Generalized anxiety disorder F41.1 [facility] [address] [place] [address] 23211 -0696 Feb, Muscle spasm M62.838 and Diabetes type 2, controlled E11.9 [facility] [address] [address]- 0625 Feb, Type 2 diabetes mellitus with hyperglycemia E11.65 [facility] [address] [facility] [id number] [id number] Feb, Dental examination Z01.20 [facility] [address] [address] Feb, Encounter for dental examination Z01.20 [facility] [address] [address]- 0452 Feb, Diabetes type 2, controlled E11.9 [facility] [address] [address]- 1063 Feb, Type 2 diabetes mellitus with hyperglycemia E11.65 [place] [address] [place] [address] 53131- 6017 Feb, [place] [address] [place] [address] 79614- 4142 Feb, Controlled type 2 diabetes mellitus without complication, without long-term current use of insulin E11.9 [facility] [address] [address]- 3907 January, Candidiasis B37.9 [place] [id number] [place] [address] 63366- 1748 January, Type 2 diabetes mellitus with hyperglycemia E11.65 ; Hypertension I10 and Anxiety F41.9 [facility] [address] [address]- 4561 January, Type 2 diabetes mellitus with hyperglycemia E11.65 [facility] [address] [address]- 0789 January, Controlled type 2 diabetes mellitus without complication, without long-term current use of insulin E11.9 [place] [address] [address]- 4927 January, Generalized anxiety disorder F41.1 ; 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 ; Foot callus L84 and Controlled type 2 diabetes mellitus without complication, without long-term current use of insulin E11.9 [facility] [id number] [place] [address] 32737- 0553 Dec, [facility] [id number] [place] [address] 65783- 7708 Dec, [facility] [id number] [place] [address] 47604- 0224 Dec, Foot callus L84 and Rash R21 [facility] [address] 98643- 7601 Dec, Controlled type 2 diabetes mellitus without complication, without long-term current use of insulin E11.9 [place] [id number] [place] [address] 89602- 4288 Nov, [facility] [id number] [place] [address] 50213 -3767 Nov, Sore throat J02.9 and Strep pharyngitis J02.0 [place] [id number] [place] [address] 98071- 1756 Nov, Generalized anxiety disorder F41.1 [place] [id number] [place] [address] 42292- 4607 Nov, [place] [id number] [place] [address] 59936- 3354 Nov, [place] [id number] [place] [address] 47531- 3709 Nov, Type 2 diabetes mellitus with hyperglycemia E11.65 [place] [id number] [place] [address] 97332- 5099 Nov, Diabetes type 2, uncontrolled E11.65 and Localized edema R60.0 [place] [id number] [place] [address] 96249- 0847 Nov, Controlled type 2 diabetes mellitus without complication, without long-term current use of insulin E11.9 [place] [id number] [place] [address] 88490- 7204 Oct, Generalized anxiety disorder F41.1 and 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 [facility] [id number] [place] [address] 49314- 6024 14 Oct, 2016 [facility] [id number] [place] [address] 00669- 3551 13 Oct, 2016 Type 2 diabetes mellitus with hyperglycemia E11.65 [facility] [id number] [place] [address] 82775- 3194 09 Oct, 2016 Type 2 diabetes mellitus with hyperglycemia E11.65 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 [facility] [id number] [place] [address] 58036- 8542 03 Oct, 2016 [facility] [id number] [place] [address] 96421- 8845 Oct, [facility] [id number] [place] [address] [id number] Oct, Encounter for dental examination Z01.20 [facility] [id number] [place] [address] 22614- 2844 Sep, [facility] [id number] [place] [address] 45457- 7848 Sep, Diabetes type 2, controlled E11.9 [facility] [address] [address] -1176 Sep, Abdominal pain R10.9 and Diverticulitis of small intestine without perforation or abscess without bleeding K57.12 [facility] [id number] [place] [address] 56879- 6699 Sep, [facility] [id number] [place] [address] 45305- 2878 Sep, Diabetes type 2, controlled E11.9 [facility] [address] [address]- 6524 Sep, Controlled type 2 diabetes mellitus without complication, without long-term current use of insulin E11.9 [place] [id number] [place] [address] 28673- 8366 Sep, Type 2 diabetes mellitus 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 E11.9 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 [facility] [place] [id number] [place] [address] 18704 -9288 Aug, Lower abdominal pain R10.30 ; GERD without esophagitis K21.9 and Candidiasis of skin B37.[address] 93074- 58[address] Aug, Controlled type 2 diabetes mellitus without complication, without long-term current use of insulin E11.9 and Diabetic polyneuropathy associated with type 2 diabetes mellitus E11.42 [facility] [place] [address] [address] [place] [id number] [place] [address] Jul, Kelly infection of genital region B37.49 and Diabetes type 2, controlled E11.9 [place] [id number] [place] [phone] Jul, Controlled type 2 diabetes mellitus without complication, without long-term current use of insulin E11.9 ; 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 and Acute pharyngitis due to other specified organisms J02.8 [facility] [place] [id number] [place] [phone] Jul, Acute upper respiratory infection, unspecified J06.9 and Other viral agents as the cause of diseases classified elsewhere B97.89 [place] [id number] [place] [phone] Jun, Generalized anxiety disorder F41.[address] [address] 14 Jun, [address] [address] 13 Jun, 2016 Diabetes type 2, controlled E11.9 and Polyneuropathy G62.[address] [address]- 4152 May, [facility] [id number] [place] [address] 08918- 5185 May, Generalized anxiety disorder F41.1 [place] [id number] [place] [address] 83924- 3130 15 May, 2016 Polyneuropathy G62.9 [place] [id number] [place] [address] 84011- 9607 May, [place] [id number] [place] [address] 74443- 3356 Apr, Anxiety disorder, unspecified F41.9 [place] [id number] [place] [address] 76223- 1105 Mar, Abdominal pain, unspecified abdominal location R10.9 ; Type 2 diabetes mellitus with hyperglycemia E11.65 ; [facility] 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.4 and Diabetic polyneuropathy associated with type 2 diabetes mellitus E11.42 [place] [id number] [place] [address] 00935- 5437 Mar, Generalized anxiety disorder F41.1 [place] [id number] [place] [address] 49969- 1018 Mar, Generalized abdominal pain R10.84 and Other male erectile dysfunction N52.8 [facility] [id number] [place] [address] 21996 -0495 Mar, [place] [id number] [place] [address] 69346- 6248 Feb, Generalized anxiety disorder F41.1 [place] [id number] [place] [address] 08689- 8716 Feb, Abdominal cramping R10.9 ; Acute bilateral low back pain without sciatica M54.5 and Malaise R53.81 [facility] [id number] [place] [address] 48582 -4101 Feb, Candidiasis B37.9 and Costochondritis M94.0 [facility] [id number] [place] [address] 93260 -6342 Feb, Allergic rhinitis, unspecified allergic rhinitis type J30.9 [facility] [id number] [place] [address] 08553- 3846 Feb, Generalized anxiety disorder F41.1 [facility] [address] 82663- 5802 Feb, [facility] [address] 41972- 7690 Feb, Major depressive disorder, recurrent, moderate F33.1 [place] [address] 92692- 5929 Feb, Generalized anxiety disorder F41.1 [facility] [id number] [place] [address] 19734- 5543 January, Unspecified infectious disease B99.9 [facility] [id number] [place] [address] [id number] January, Dental examination Z01.20 [facility] [address] 13017- 5623 January, [facility] [id number] [place] [address] 79627- 3145 January, Diabetes type 2, uncontrolled E11.65 [facility] [id number] [place] [address] 49892 -5442 January, Wheezing R06.2 and History of pneumonia Z87.01 [facility] [id number] [place] [address] 58496- 8749 January, [facility] [id number] [place] [address] 10559- 1110 January, Depression, major, recurrent, moderate F33.1 [facility] [address] 59350- 0959 January, [facility] [address] [facility] [id number] [address]- 5668 January, Depression, major, recurrent, moderate F33.1 [facility] [address] [facility] [id number] [address]- 1356 January, [facility] [address] [facility] [id number] [place] [address]- 9686 Dec, Depression, major, recurrent, moderate F33.1 [facility] [address] [id number] [address]- 5186 Dec, Dental examination Z01.20 [facility] [id number] [place] [address] [id number] Dec, Dental examination Z01.20 [facility] [address]65100[place] [address]- 7463 Dec, Generalized anxiety disorder F41.1 [facility] [address] [address] 5455 Dec, Generalized anxiety disorder F41.1 [facility] [address] [facility] [id number] [address]- 8405 Nov, [facility] [address] [facility] [id number] [place] [address]- 5698 Nov, [facility] [address] [address]- 9869 Nov, Generalized anxiety disorder F41.1 [facility] [address] [id number] [place] [id number] Nov, Dental examination Z01.20 [facility] [address] [id number] [place] 4046 Nov, [facility] [address] [facility] [id number] [place] 5736 Nov, Generalized anxiety disorder F41.1 and 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 [facility] [id number] [place] [address] 90444- 3677 Nov, Depression, major, recurrent, moderate F33.1 [facility] [id number] [place] [address] 95158- 2753 Nov, [facility] [id number] [place] [address] 63922- 5392 Nov, Diabetes type 2, uncontrolled E11.65 and Hypertension I10 [facility] [id number] [place] [address] [id number] 14 Nov, 2015 Dental examination Z01.20 [place] [id number] [place] [address] 96778- 8981 Nov, [place] [address] 39240- 5610 Nov, Depression, major, recurrent, moderate F33.1 [facility] [id number] [place] [address] 07608 -0092 Nov, Penile abrasion S30.812A [place] [id number] [place] [address] 65316- 3439 Oct, Generalized anxiety disorder F41.1 [place] [id number] [place] [address] 49638- 7371 Oct, Depression, major, recurrent, moderate F33.1 [place] [id number] [place] [address] 66250- 6763 Oct, Diabetes type 2, controlled E11.9 and Malaise R53.81 [facility] [id number] [place] [address] 00145- 1097 Oct, [facility] [id number] [place] [address] 15047- 1332 16 Oct, 2015 [facility] [id number] [place] [address] 77929- 1255 Oct, [facility] [id number] [place] [address] 10437- 0112 Oct, Depression, major, recurrent, moderate F33.1 [facility] [id number] [place] [address] 50887- 2627 Oct, Generalized anxiety disorder F41.1 and 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 [facility] [id number] [place] [address] 13350- 0194 Oct, [facility] [id number] [place] [address] 04813- 2967 Oct, Major depressive disorder, recurrent, moderate F33.1 [place] [id number] [place] [address] 14435- 3504 Oct, [place] [id number] [place] [address] 34055- 7357 Oct, [place] [id number] [place] [address] 10526- 4826 Oct, Generalized anxiety disorder F41.1 [place] [id number] [place] [address] 71650- 6499 Oct, [facility] [id number] [place] [address] 33182- 7519 Oct, Back muscle spasm M62.830 [facility] [id number] [place] [address] 50091- 7072 Oct, Major depressive disorder, recurrent, moderate F33.1 [facility] [id number] [place] [address] 94323 -1440 Sep, Back muscle spasm M62.830 ; Allergic rhinitis J30.9 and Person with feared health complaint in whom no diagnosis is made Z71.1 [facility] [address]65100[place] [address]- 1374 Sep, Generalized anxiety disorder F41.1 [facility] [address] [id number] [address] -1060 15 Sep, 2015 [facility] [id number] [place] [address] 56140- 4757 15 Sep, 2015 [facility] [id number] [place] [address] 22561- 7092 13 Sep, 2015 Mood disorder F39 ; Diabetes type 2, controlled E11.9 ; Morbid obesity due to excess calories E66.01 and Edema, unspecified type R60.9 [place] [id number] [place] [address] 80884- 6383 13 Sep, 2015 Generalized anxiety disorder F41.1 [place] [id number] [place] [address] 71547- 2354 11 Sep, 2015 [place] [id number] [place] [address] 13210- 0111 07 Sep, 2015 Adjustment disorder with mixed anxiety and depressed mood F43.23 and Depression F32.9 [facility] [id number] [place] [address] 79169- 1579 06 Sep, 2015 Generalized anxiety disorder F41.1 [place] [id number] [place] [address] 84697- 5502 05 Sep, 2015 Generalized anxiety disorder 300.02 and Autism spectrum disorder F84.[address] [id number] [id number] Aug, Encounter for dental examination Z01.20 [facility] [address] [address]- 7697 16 Aug, 2015 [facility] [id number] [place] [address] 15013 -9143 17 Jul, 2015 Candidiasis B37.9 [facility] [address] [place] [address] 39899- 4768 13 Jul, [address] [id number] 12 Jul, 2015 Encounter for dental examination Z01.20 [facility] [address] [place] [address] 12407- 1509 Jul, [facility] [id number] [place] [address] 93711- 3017 08 Jun, 2015 [facility] [id number] [place] [address] 74307- 9460 30 May, 2015 Diabetes type 2, controlled 250.00 and Neuropathy 355.9 [place] [id number] [place] [address] 06622- 1492 16 May, 2015 [place] [address] 62170- 9765 Apr, Generalized anxiety disorder 300.02 and Autism spectrum disorder 299.00 [place] [id number] [place] [address] 24708- 7024 Apr, Abrasion, foot 917.0 ; Chest pain 786.50 and Back pain 724.5 [place] [id number] [place] [address] 92812- 2571 Apr, Generalized anxiety disorder 300.02 [place] [id number] [place] [address] 68504- 2998 Feb, Anxiety state, unspecified 300.00 [place] [id number] [place] [address] 03115- 7727 Feb, Diabetes mellitus without mention of complication, type II or unspecified type, not stated as uncontrolled 250.00 ; Generalized anxiety disorder 300.02 ; Morbid obesity 278.01 ; Benign essential hypertension 401.1 ; Chronic pain 338.29 ; Screen for STD (sexually transmitted disease) V74.5 ; Dysuria 788.1 and Kelly infection of genital region 112.2 [place] [id number] [place] [address] 90137- 2575 Feb, [place] [id number] [place] [address] 34684- 8385 January, Generalized anxiety disorder 300.02 and Autism spectrum disorder 299.00 [facility] [address] [id number] [place] [address]- 9149 30 Dec, 2014 [facility] [place] [facility] [address] [facility] [id number] [address]- 0519 Dec, [facility] [place] [facility] [address] [facility] [id number] [place] [address]- 8756 Dec, [facility] [place] [facility] [address] [id number] [address]- 0354 Nov, [facility] [address] [id number] [id number] Nov, [facility] [place] [facility] [id number] [place] [address] 94725- 7780 Nov, [facility] [place] [facility] [address] [facility] [id number] [place] [address]- 9255 Nov, [facility] [address] [id number] Nov, [facility] [place] [facility] [address] [facility] [id number] [place] [address]- 4770 Oct, [facility] [place] [facility] [address] [id number] [address]- 4112 Jul, [facility] [place] [facility] [address] [facility] [id number] [place] 8054 Jul, [facility] [place] [facility] [address] [facility] [id number] [place] 9680 Jul, [facility] [place] [facility] [address] [facility] [id number] [place] 5070 Jul, [facility] [place] [facility] [address] [facility] [id number] [address]- 3237 Jul, [facility] [place] [facility] [address] [facility] [id number] 0681 Jul, [facility] [place] [facility] [address] [facility] [id number] [place] [address]- 4688 Jul, [facility] [place] [facility] [address] [id number] [place] [address]- 8044 Jul, [facility] [place] [facility] [address] [id number] [place] [address]- 8709 Jul, [facility] [place] [facility] [address] [id number] [place] [address]- 6121 Jul, [facility] [place] [facility] [address] [id number] [place] [address]- 0969 Jun, [facility] [place] [facility] [address] [id number] [place] [address]- 1577 Jun, [facility] [place] [facility] [address] [id number] [place] [address]- 1724 Jun, [facility] [place] [facility] [address] [id number] [place] [address]- 2915 Jun, [facility] [place] [facility] [address] [id number] [place] [address]- 8619 Jun, [facility] [place] [facility] [address] [id number] [place] [address]- 0021 Jun, [facility] [place] [facility] [address] [id number] [place] [address]- 2370 Jun, [facility] [place] [facility] [address] [id number] [place] [address]- 9067 30 May, 2013 [facility] [place] [facility] [address] [id number] [place] [address]- 3194 30 May, 2013 [facility] [place] [facility] [address] [id number] [place] [address]- 2273 12 May, 2014 [facility] [place] [facility] [address] [id number] [place] [address]- 2422 12 May, 2013 [facility] [place] [facility] [address] [id number] [place] [address]- 3310 10 May, 2014 [facility] [place] [facility] [address] [id number] [place] [address]- 5249 May, [facility] [place] [facility] [address] [id number] [place] [address]- 4622 May, [facility] [place] [facility] [address] [id number] [place] [address]- 0208 May, [facility] [place] [facility] [address] [id number] [place] [address]- 7657 Apr, [facility] [place] [facility] [address] [id number] [place] [address]- 4072 Apr, [facility] [place] [facility] [address] [id number] [place] [address]- 4367 Apr, [facility] [place] [facility] [address] [id number] [place] [address]- 6304 Apr, [facility] [place] [facility] [address] [id number] [place] [address]- 6771 Apr, [facility] [place] [facility] [address] [id number] [place] [address]- 8346 Apr, [facility] [place] [facility] [address] [id number] [place] [address]- 1059 Apr, [facility] [place] [facility] [address] [id number] [place] [address]- 9455 Apr, [facility] [place] [facility] [address] [id number] [place] [address]- 1739 Apr, [facility] [place] [facility] [address] [id number] [place] [address]- 9873 Mar, [facility] [place] [facility] [address] [id number] [place] [address]- 2795 Mar, [facility] [place] [facility] [address] [id number] [place] [address]- 0479 Mar, [facility] [place] [facility] [address] [id number] [place] [address]- 9349 Mar, [facility] [place] [facility] [address] [id number] [place] [address]- 0351 Mar, [facility] [place] [facility] [address] [id number] [place] [address]- 6637 Mar, [facility] [place] [facility] [address] [id number] [place] [address]- 7247 Feb, [facility] [place] [facility] [address] [id number] [place] [address]- 1264 Feb, [facility] [place] [facility] [address] [id number] [place] [address]- 2821 Feb, [facility] [place] [facility] [address] [id number] [place] [address]- 7016 January, [facility] [place] [facility] [address] [id number] [place] [address]- 7100 January, [facility] [place] [facility] [address] [id number] [place] [address]- 5706 January, [facility] [place] [facility] [address] [id number] [place] [address]- 5070 January, [facility] [place] [facility] [address] [id number] [place] [address]- 2529 January, [facility] [place] [facility] [address] [id number] [place] [address]- 6292 January, [facility] [place] [facility] [address] [id number] [place] [address]- 0619 Dec, [facility] [place] [facility] [address] [id number] [place] [address]- 7907 Dec, [facility] [place] [facility] [address] [id number] [place] [address]- 4380 Dec, [facility] [place] [facility] [address] [id number] [place] [address]- 4101 Dec, [facility] [place] [facility] [address] [id number] [place] [address]- 4412 Nov, [facility] [address] [id number] [place] [address]- 3099 Nov, [facility] [place] [facility] [address] [id number] [place] 6619 Oct, [facility] [address] [id number] [place] [address]- 5317 Oct, [facility] [place] [facility] [address] [id number] [place] [address]- 3968 Sep, [facility] [address] [id number] [place] [address]- 6120 Sep, [facility] [address] [id number] [place] [address]- 4661 Aug, [facility] [address] [id number] [place] [address]- 8489 Aug, [facility] [address] [id number] [place] [address]- 3470 Aug, [facility] [address] [id number] [place] [address]- 6723 Jul, [facility] [address] [facility] [id number] [place] [address]- 6276 Jul, [facility] [place] [facility] [address] [id number] [place] [address]- 5047 Jul, [facility] [place] [facility] [address] [id number] [place] [address]- 0579 Jul, [facility] [place] [facility] [address] [id number] [place] [address]- 0618 Jul, [facility] [place] [facility] [address] [id number] [place] [address]- 2796 17 May, 2013 [facility] [place] [facility] [address] [id number] [place] [address]- 3235 May, [facility] [address] [id number] [place] [address]- 0886 Apr, [facility] [place] [facility] [address] [id number] [place] [address]- 3616 Apr, [facility] [place] [facility] [address] [id number] [place] [address]- 1882 Mar, [facility] [place] [facility] [address] [id number] [place] [address]- 3582 Mar, [facility] [place] [facility] [address] [id number] [place] [address]- 6121 Mar, [facility] [place] [facility] [address] [id number] [place] [address]- 7816 Mar, [facility] [place] [facility] [address] [id number] [place] [address]- 8015 Feb, [facility] [place] [facility] [address] [id number] [place] [address] Feb, [facility] [place] [facility] [address] [id number] [place] [address] Feb, [facility] [place] [facility] [address] [id number] [place] [address] Feb, [facility] [place] [facility] [address] [id number] [place] [address] Feb, [facility] [place] [facility] [address] [id number] [place] [address] January, [facility] [place] [facility] [address] [id number] [place] [address] January, [facility] [place] [facility] [address] [id number] [place] [address] January, [facility] [place] [facility] [address] [id number] [place] [address] January, [facility] [place] [facility] [address] [id number] [place] [address] 24 Dec, 2012 [facility] [address] [id number] [place] [address] 24 Dec, 2012 [facility] [address] [id number] [place] [address] 18 Dec, 2012 [facility] [address] [id number] [place] [address] 10 Dec, 2012 [facility] [address] [id number] [place] [address] 19 Nov, 2012 [facility] [address] [id number] [place] [address] 05 Nov, 2012 [facility] [address] [id number] [place] [address] Oct, [facility] [address] [facility] [id number] [place] [address] Aug, [facility] [address] [id number] [place] [address] Aug, [facility] [address] [facility] [id number] [place] [address] Dec, [facility] [address] [facility] [id number] [place] [address] Dec, [facility] [address] [id number] [place] [address] 05 Dec, 2011 [facility] [address] [id number] [place] [address]- [address]69 26 Nov, 2011 [facility] [address] [id number] [place] [address]- [address] 15 Nov, 2011 [facility] [address] [id number] [place] [address]- 6766 21 Oct, 2011 [facility] [address] [facility] [id number] [place] [address] 07 Oct, 2011 [facility] [address] [id number] [place] [address]702 Oct, [facility] [address] [id number] [place] [address] Sep, [facility] [place] [facility] [address] [id number] [place] [address] Sep, [facility] [address] [id number] [place] [address] Sep, [facility] [address] [id number] [place] [address] Sep, [facility] [place] [facility] [address] [id number] [place] [address] Sep, [facility] [address] [id number] [place] [address] Sep, [facility] [address] [id number] [place] [address]- [address] Sep, [facility] [address] [id number] [place] [address] Sep, [facility] [address] [id number] [place] [address] Jul, [facility] [place] [facility] [address] [id number] [place] [address] 15 Jul, 2011 [facility] [place] [facility] [address] [id number] [place] [address] 15 Jul, 2011 [facility] [place] [facility] [address] [id number] [place] [address]- [address] 14 Nov, 2010 [facility] [place] [facility] [address] [id number] [place] [address]- [address] 17 Aug, 2010 [facility] [place] [facility] [address] [id number] [place] [address] 17 Aug, 2010 [facility] [place] [facility] [address] [id number] [address] 16 Aug, 2010 [facility] [address] [id number] [place] [address]- [address]773 15 Aug, 2010 [facility] [place] [facility] [address] [id number] [place] [address]- [address] 09 Aug, 2010 [facility] [place] [facility] [address] [id number] [place] [address] Jul, [facility] [place] [facility] [address] [id number] [address] Jun, [facility] [address] [id number] [place] [address] Jun, [facility] [place] [facility] [address] [id number] [address] Sep, [facility] [place] [facility] [address] [id number] [address] 28 Aug, 2009 [facility] [place] [facility] [address] [id number] [address] 09 Aug, 2009 [facility] [address] [id number] [address] 08 Aug, 2009 [facility] [place] [facility] [address] [id number] [address] 14 Jun, 2009 [facility] [place] [facility] [address] [id number] [place] [address] 14 Jun, 2009 [facility] [place] [facility] [address] [id number] [place] [address] 14 May, 2009 [facility] [place] [facility] [address] [id number] [address] 17 Apr, 2009 [facility] [place] [facility] [address] [id number] [place] [address] 16 Mar, 2009 [facility] [place] [facility] [address] [id number] [address] 14 Jan, 2009 [facility] [place] [facility] [address] [facility] [id number] [place] [address] Oct, IMMUNIZATIONS No Known Immunizations SOCIAL HISTORY Never Assessed REASON FOR VISIT Medication refill request PLAN OF CARE VITAL SIGNS MEDICATIONS Unknown [...] surgery at age 1 Hospitalization History [facility] [place] for diabetes 09/2011 Hospitalization History [facility] diabetic issues 09/2015 Hospitalization History [facility] Pneumonia 01/2016 Hospitalization History celluitis of the left upper thigh-[facility] 04/2017 Hospitalization History [facility]-inpatient psych 4 day stay 2013 Hospitalization History [facility] [place]- Shaking, unsure of blood sugar level 11/20/2017
--- OUTSIDE RECORDS SUMMARY | 2018-07-05 10:47 | XMS REPORT ---
Author Author XIN JENNIFER [facility] Address [address] [place] [address] Care Team Providers Care Product Design Manager Name Role Phone XIN JENNIFER Unavailable PROBLEMS Type Condition ICD9-CM Code [id number] Code Onset Dates Condition Status SNOMED Code Problem Other male erectile dysfunction N52.8 Active 057683162 Problem Diabetes type 2, controlled E11.9 Active 96796325 Problem Obesity, unspecified E66.9 Active 062884493 Problem Gastro-esophageal reflux disease with esophagitis K21.0 Active 796339989 Problem Insomnia, unspecified G47.00 Active 433219607 Problem Anxiety F41.9 Active 38949205 Problem 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 Active 47579214 Problem Hypertriglyceridemia E78.1 Active 148177041 Problem Generalized anxiety disorder F41.1 Active 38489313 Problem Chronic fatigue R53.82 Active 90982374 Problem Type 2 diabetes mellitus 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 E11.9 Active 809172520 Problem BMI 45.0-49.9, adult Z68.42 Active 939448020 Problem Other chronic pain G89.29 Active 14106370 Problem Morbid obesity due to excess calories E66.01 Active 432925812 Problem Type 2 diabetes mellitus with hyperglycemia E11.65 Active 662616816 Problem Hypertension I10 Active 41597925 Problem Diabetes type 2, uncontrolled E11.65 Active 646617489 Problem Mild episode of recurrent major depressive disorder F33.0 Active 186456801 Problem Type 2 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 Active 71038023 Problem Hypogonadism in male E29.1 Active 67590558 Problem Seasonal allergies J30.2 Active 154384274 Problem Controlled type 2 diabetes mellitus without complication, without long -term current use of insulin E11.9 Active 743733606 Problem Diabetic polyneuropathy associated with type 2 diabetes mellitus E11.42 Active 11600576 Problem Polyneuropathy G62.9 Active 20970487 Problem 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 Active 749607682 Problem FCI 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.4 Active 582513273 Problem Diverticulitis of small intestine without perforation or abscess without bleeding K57.12 Active 15450932 Problem GERD without esophagitis K21.9 Active 551673544 Problem Type 2 diabetes mellitus with hyperglycemia E11.65 Active 324264862 ALLERGIES No Information ENCOUNTERS Encounter Location Date Diagnosis [place] [id number] [place] [address] 51580- 1633 Jun, [facility] [address] 98478- 9684 May, [facility] [address] 82217- 6864 May, Uncontrolled type 2 diabetes mellitus with hyperglycemia E11.65 [place] [id number] [place] [address] 94012- 7319 May, Uncontrolled type 2 diabetes mellitus with hyperglycemia E11.65 ; BMI 45.0-49.9, adult Z68.42 and Colitis K52.9 [place] [id number] [place] [address] 56835- 2096 May, [place] [address] 28002- 2244 May, [facility] [id number] [place] [address] 49952 -6073 Apr, Colitis K52.9 ; Abdominal discomfort R10.9 and Anxiety F41.9 [facility] [id number] [place] [address] 45088- 1556 Apr, [facility] [id number] [place] [address] 49813- 8604 Apr, Colitis K52.9 and BMI 45.0-49.9, adult Z68.42 [place] [id number] [place] [address] 62848- 1373 Apr, Diabetes type 2, uncontrolled E11.65 [facility] [address] 02161- 6557 Apr, 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 ; Generalized anxiety disorder F41.1 and BMI 45.0-49.9, adult Z68.42 [place] [id number] [place] [address] 63051- 3537 Apr, [place] [address] 22341- 9823 Apr, BMI 45.0-49.9, adult Z68.42 [place] [address] 68997- 8226 Apr, Candidiasis B37.9 ; Pain in right shoulder M25.511 ; Pain in left shoulder M25.512 ; Other chronic pain G89.29 and Morbid obesity due to excess calories E66.01 [place] [id number] [place] [address] 40041- 5611 Apr, Hypogonadism in male E29.1 [facility] [id number] [place] [address] 05188 -3921 Mar, Yeast dermatitis B37.2 and Sensation of foreign body in throat R09.89 [place] [id number] [place] [address] 93751- 1497 Mar, [place] [id number] [place] [address] 91407- 1525 Mar, Hypogonadism in male E29.1 [place] [id number] [place] [address] 09773- 8739 Mar, Hypogonadism in male E29.1 [place] [id number] [place] [address] 79502- 8810 Mar, [place] [id number] [place] [address] 30101- 9254 Mar, Diabetes type 2, uncontrolled E11.65 and Hypogonadism in male E29.1 [place] [address] 03448- 1258 Mar, [facility] [id number] [place] [address] 97132- 8954 Feb, Diabetes type 2, controlled E11.9 ; Myalgia M79.1 and BMI 45.0-49.9, adult Z68.42 [facility] [id number] [place] [address] 22928 -6641 Feb, Hematuria, unspecified type R31.9 ; Side pain R10.9 and Rash R21 [place] [id number] [place] [address] 50439- 4634 January, [place] [address] 96753- 7913 January, [place] [id number] [place] [address] 98209- 8649 January, [facility] [id number] [place] [address] 84881 -4719 January, Seasonal allergies J30.2 and BMI 45.0-49.9, adult Z68.42 [place] [id number] [place] [address] 84275- 1223 January, Chronic fatigue R53.82 ; Mild episode of recurrent major depressive disorder F33.0 and Polyneuropathy G62.9 [place] [id number] [place] [address] 88671- 7260 January, Chronic fatigue R53.82 ; BMI 45.0-49.9, adult Z68.42 and Anxiety F41.9 [place] [id number] [place] [address] 02124- 3589 January, Generalized anxiety disorder F41.1 [place] [id number] [place] [address] 38347- 5336 Dec, 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 ; Generalized anxiety disorder F41.1 ; High risk medication use Z79.899 and BMI 45.0-49.9, adult Z68.42 [facility] [address] [address] 7545 Dec, [facility] [id number] [place] [address] [id number] [phone] Dec, 2017 Encounter for dental examination Z01.20 [facility] [id number] [place] [address] 32834- 1416 Dec, Mild episode of recurrent major depressive disorder F33.0 ; Type 2 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 and FCI 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.4 [facility] [address] [place] [address] 40218- 6786 Nov, [place] [id number] [place] [address] 39339- 9113 Nov, BMI 45.0-49.9, adult Z68.42 ; 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 and Generalized anxiety disorder F41.1 [facility] [id number] [place] [address] 15282- 4028 Nov, Type 2 diabetes mellitus 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 E11.9 and FCI 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.4 [facility] [address] [place] [address] [id number] Oct, Dental examination Z01.20 and Dental caries K02.9 [facility] [address] [place] [address] 56628- 3873 Oct, [facility] [id number] [place] [address] 41487- 1877 Oct, BMI 45.0-49.9, adult Z68.42 ; 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 and Generalized anxiety disorder F41.1 [facility] [id number] [place] [address] 62081- 1276 Oct, [facility] [id number] [place] [address] 14776- 8002 Oct, [place] [address] [address] 5530 Oct, Hypertriglyceridemia E78.1 [facility] [id number] [place] [address] 089508- 6073 Oct, Hypertriglyceridemia E78.1 [facility] [address] [place] [address] 37910- 7708 Sep, Controlled type 2 diabetes mellitus without complication, without long-term current use of insulin E11.9 [facility] [id number] [place] [address] 84170- 5378 Sep, [place] [id number] [place] [address] 98075- 1303 Sep, Controlled type 2 diabetes mellitus without complication, without long-term current use of insulin E11.9 [place] [id number] [place] [address] 94420- 4381 Sep, [place] [id number] [place] [address] 67042- 1289 Sep, [facility] [id number] [place] [address] 07363- 2162 Sep, BMI 45.0-49.9, adult Z68.42 ; Diabetic polyneuropathy associated with type 2 diabetes mellitus E11.42 and Chronic fatigue R53.82 [place] [address], [place] [address]- 7124 Sep, [place] [id number] [place] [address] 18520- 6421 Sep, Hypertriglyceridemia E78.1 [place] [id number] [place] [address] 02776- 1897 Aug, [place] [id number] [place] [address] 97405- 2593 Aug, Generalized anxiety disorder F41.1 [place] [id number] [place] [address] 65269- 2195 Aug, [facility] [id number] [place] [address] 17291- 3495 Aug, Hypertriglyceridemia E78.1 [place] [id number] [place] [address] 66253- 1957 Jul, [place] [id number] [place] [address] 53561- 0563 Jul, [place] [id number] [place] [address] 55427- 4689 Jul, Generalized anxiety disorder F41.1 ; 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 ; BMI 45.0-49.9, adult Z68.42 and Patient's noncompliance with other medical treatment and regimen Z91.19 [place] [id number] [place] [address] 41101- 6374 Jul, Diabetes type 2, uncontrolled E11.65 ; Diabetic polyneuropathy associated with type 2 diabetes mellitus E11.42 ; Abdominal pain , right upper quadrant R10.11 and Low back pain radiating to left lower extremity M54.5 [place] [id number] [place] [address] 78076- 8737 Jul, Generalized anxiety disorder F41.1 [place] [id number] [place] [address] 51724- 4615 17 Jul, 2017 [place] [id number] [place] [address] 26297- 7550 Jul, Hypertriglyceridemia E78.1 [place] [id number] [place] [address] 37225- 2766 06 Jul, 2017 Controlled type 2 diabetes mellitus without complication, without long-term current use of insulin E11.9 [place] [id number] [place] [address] 30527- 4164 Jun, [place] [id number] [place] [address] 80258- 2935 Jun, Hypertriglyceridemia E78.1 [place] [address] [place] [address] 51600- 7551 Jun, Controlled type 2 diabetes mellitus without complication, without long-term current use of insulin E11.9 [facility] [id number] [place] [address] 33502- 8406 Jun, Generalized anxiety disorder F41.1 [facility] [id number] [place] [address] 50919- 7760 Jun, Candidiasis B37.9 [facility] [id number] [place] [address] 89329- 5809 May, [place] [address] 50461- 2500 18 May, 2017 Controlled type 2 diabetes mellitus without complication, without long-term current use of insulin E11.9 [facility] [id number] [place] [address] 00472- 5818 14 May, 2017 Hypertriglyceridemia E78.1 [facility] [id number] [place] [address] 70553- 3764 May, Hypertriglyceridemia E78.1 [place] [id number] [place] [address] 65071- 0724 14 May, 2017 Hypertriglyceridemia E78.1 and Hypotestosteronemia E34.9 [facility] [id number] [place] [address] 39372- 3848 May, Generalized anxiety disorder F41.1 [facility] [id number] [place] [address] 09301- 0409 05 May, 2017 [facility] [id number] [place] [address] 69739 -7689 May, Abscess and cellulitis L03.90 [facility] [id number] [place] [address] [id number] Apr, [facility] [id number] [place] [address] 34391- 4708 Apr, [place] [address], [place] [address]- 5286 Apr, Dermatofibroma of back D23.5 [facility] [address] [place] [address] 88693 -3042 Apr, Muscle strain of left thigh, initial encounter S76.912A [place] [id number] [place] [address] 48257- 2598 Apr, [place] [id number] [place] [address] 39378- 0880 Apr, Generalized anxiety disorder F41.1 [place] [id number] [place] [address] 46186- 9001 Apr, Polyneuropathy G62.9 [place] [id number] [place] [address] 45015- 3194 Apr, GERD without esophagitis K21.9 [place] [id number] [place] [address] 02957- 2844 Apr, Generalized anxiety disorder F41.1 ; Diastasis recti M62.08 and Controlled type 2 diabetes mellitus without complication, without long-term current use of insulin E11.9 [place] [address], [place] [address]- 4761 Apr, Generalized anxiety disorder F41.1 ; 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 and Controlled type 2 diabetes mellitus without complication, without long-term current use of insulin E11.9 [place] [address], [place] [address]- 0682 Mar, Generalized anxiety disorder F41.1 ; Diastasis recti M62.08 and Controlled type 2 diabetes mellitus without complication, without long-term current use of insulin E11.9 [place] [address], [place] [address]- 4333 Mar, Controlled type 2 diabetes mellitus without complication, without long-term current use of insulin E11.9 [place] [id number] [address]- 5546 Mar, Generalized anxiety disorder F41.1 [facility] [id number] [place] [address] 94117- 7539 Mar, Generalized anxiety disorder F41.1 [facility] [address] [place] [address] 33071- 2346 Mar, Generalized anxiety disorder F41.1 [facility] [id number] [place] [address] 95342- 8595 Mar, Generalized anxiety disorder F41.1 [facility] [id number] [place] [address] 89913- 7081 Feb, Controlled type 2 diabetes mellitus without complication, without long-term current use of insulin E11.9 [facility] [address] [place] [address] 00715- 1202 Feb, Controlled type 2 diabetes mellitus without complication, without long-term current use of insulin E11.9 and Tinea cruris B35.6 [facility] [address] [place] [address] 90525- 8821 Feb, Diabetes type 2, controlled E11.9 [facility] [address] [place] [address] [id number] Feb, Dental examination Z01.20 [facility] [address] [place] [address] 78975- 8169 Feb, Dental examination Z01.20 [facility] [address] [place] [address] 57401- 9614 Feb, Generalized anxiety disorder F41.1 [facility] [address] [place] [address] 09810 -9483 Feb, Muscle spasm M62.838 and Diabetes type 2, controlled E11.9 [facility] [address], [place] [address]- 3098 Feb, Type 2 diabetes mellitus with hyperglycemia E11.65 [facility] [address] [facility] [id number] [id number] Feb, Dental examination Z01.20 [facility] [address] [id number] Feb, Encounter for dental examination Z01.20 [facility] [address], [place] [address]- 3028 Feb, Diabetes type 2, controlled E11.9 [facility] [address], [place] [address]- 8537 Feb, Type 2 diabetes mellitus with hyperglycemia E11.65 [place] [address] [place] [address] 61019- 1763 Feb, [place] [id number] [place] [address] 28253- 6434 Feb, Controlled type 2 diabetes mellitus without complication, without long-term current use of insulin E11.9 [facility] [address], [place] [address]- 8566 January, Candidiasis B37.9 [place] [id number] [place] [address] 82033- 6781 January, Type 2 diabetes mellitus with hyperglycemia E11.65 ; Hypertension I10 and Anxiety F41.9 [facility] [address], [place] [address]- 0673 January, Type 2 diabetes mellitus with hyperglycemia E11.65 [facility] [address], [place] [address]- 6929 January, Controlled type 2 diabetes mellitus without complication, without long-term current use of insulin E11.9 [place] [address], [place] [address]- 1024 January, Generalized anxiety disorder F41.1 ; 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 ; Foot callus L84 and Controlled type 2 diabetes mellitus without complication, without long-term current use of insulin E11.9 [place] [id number] [place] [address] 81760- 2613 Dec, [facility] [id number] [place] [address] 52988- 0660 Dec, [facility] [id number] [place] [address] 88429- 6007 Dec, Foot callus L84 and Rash R21 [facility] [address] 91533- 3779 Dec, Controlled type 2 diabetes mellitus without complication, without long-term current use of insulin E11.9 [place] [id number] [place] [address] 76965- 6127 Nov, [facility] [id number] [place] [address] 28719 -9061 Nov, Sore throat J02.9 and Strep pharyngitis J02.0 [place] [id number] [place] [address] 70241- 7284 Nov, Generalized anxiety disorder F41.1 [place] [id number] [place] [address] 67782- 8498 Nov, [place] [id number] [place] [address] 18803- 0179 Nov, [place] [id number] [place] [address] 49479- 3934 Nov, Type 2 diabetes mellitus with hyperglycemia E11.65 [place] [id number] [place] [address] 50964- 9785 Nov, Diabetes type 2, uncontrolled E11.65 and Localized edema R60.0 [place] [id number] [place] [address] 12226- 2033 Nov, Controlled type 2 diabetes mellitus without complication, without long-term current use of insulin E11.9 [place] [id number] [place] [address] 92394- 0791 Oct, Generalized anxiety disorder F41.1 and 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 [facility] [id number] [place] [address] 63816- 4449 14 Oct, 2016 [facility] [id number] [place] [address] 87086- 1302 13 Oct, 2016 Type 2 diabetes mellitus with hyperglycemia E11.65 [facility] [id number] [place] [address] 85278- 1392 09 Oct, 2016 Type 2 diabetes mellitus with hyperglycemia E11.65 and intermediate card tender 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.4 [facility] [id number] [place] [address] 22245- 7794 03 Oct, 2016 [facility] [id number] [place] [address] 73858- 8315 Oct, [facility] [id number] [place] [address] [id number] Oct, Encounter for dental examination Z01.20 [facility] [id number] [place] [address] 15446- 7829 Sep, [facility] [id number] [place] [address] 10208- 7055 Sep, Diabetes type 2, controlled E11.9 [facility] [id number], [place] [address] Sep, Abdominal pain R10.9 and Diverticulitis of small intestine without perforation or abscess without bleeding K57.12 [facility] [id number] [place] [phone] Sep, [facility] [id number] [place] [phone] Sep, Diabetes type 2, controlled E11.9 [facility] [id number], [place] [address] Sep, Controlled type 2 diabetes mellitus without complication, without long-term current use of insulin E11.9 [place] [id number] [place] [phone] Sep, Type 2 diabetes mellitus 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 E11.9 and intermediate card tender 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.4 [facility] [place] [address] [id number] [place] [phone] Aug, Lower abdominal pain R10.30 ; GERD without esophagitis K21.9 and Candidiasis of skin B37.[address] [address] Aug, Controlled type 2 diabetes mellitus without complication, without long-term current use of insulin E11.9 and Diabetic polyneuropathy associated with type 2 diabetes mellitus E11.42 [facility] [place] [address] [address] [place] [id number] [place] [phone] Jul, Kelly infection of genital region B37.49 and Diabetes type 2, controlled E11.[address] [place] [id number] [place] [place] [address] 69456- 9148 Jul, Controlled type 2 diabetes mellitus without complication, without long-term current use of insulin E11.9 ; 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 and Acute pharyngitis due to other specified organisms J02.8 [facility] [place] [id number] [place] [address] 16879 -9685 Jul, Acute upper respiratory infection, unspecified J06.9 and Other viral agents as the cause of diseases classified elsewhere B97.89 [place] [id number] [place] [address] 70250- 5599 Jun, Generalized anxiety disorder F41.[address] 85762- 0131 14 Jun, [address] 34901- 3882 13 Jun, 2016 Diabetes type 2, controlled E11.9 and Polyneuropathy G62.[address] 18557- 0580 May, [facility] [id number] [place] [address] 94766- 7869 May, Generalized anxiety disorder F41.1 [place] [address] [place] [id number] [place] [address] 95426- 1771 15 May, 2016 Polyneuropathy G62.9 [place] [address] [place] [id number] [place] [address] 34130- 8620 May, [place] [address] [place] [id number] [place] [address] 27620- 3786 Apr, Anxiety disorder, unspecified F41.9 [place] [address] [place] [id number] [place] [address] 60513- 9616 Mar, Abdominal pain, unspecified abdominal location R10.9 ; Type 2 diabetes mellitus with hyperglycemia E11.65 ; [facility]CI 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.4 and Diabetic polyneuropathy associated with type 2 diabetes mellitus E11.42 [place] [address] [place] [id number] [place] [address] 15844- 8608 Mar, Generalized anxiety disorder F41.1 [place] [address] [place] [id number] [place] [address] 37170- 8594 Mar, Generalized abdominal pain R10.84 and Other male erectile dysfunction N52.8 [facility] [id number] [place] [address] 00016 -8486 Mar, [place] [address] [place] [id number] [place] [address] 74699- 0259 Feb, Generalized anxiety disorder F41.1 [place] [address] [place] [id number] [place] [address] 45996- 5088 Feb, Abdominal cramping R10.9 ; Acute bilateral low back pain without sciatica M54.5 and Malaise R53.81 [facility] [id number] [place] [address] 90505 -7384 Feb, Candidiasis B37.9 and Costochondritis M94.0 [facility] [id number] [place] [address] 86917 -4637 Feb, Allergic rhinitis, unspecified allergic rhinitis type J30.9 [facility] [id number] [place] [address] 69820- 0114 Feb, Generalized anxiety disorder F41.1 [facility] [address] 11816- 7779 Feb, [facility] [address] 46802- 9917 Feb, Major depressive disorder, recurrent, moderate F33.1 [place] [address] 97001- 9360 Feb, Generalized anxiety disorder F41.1 [facility] [address] [id number] [place] [address] 58784- 1753 January, Unspecified infectious disease B99.9 [facility] [id number] [place] [address] [id number] January, Dental examination Z01.20 [facility] [address] 99596- 4679 January, [facility] [address] [id number] [place] [address] 62563- 3825 January, Diabetes type 2, uncontrolled E11.65 [facility] [id number] [place] [address] 06220 -5066 January, Wheezing R06.2 and History of pneumonia Z87.01 [facility] [address] [id number] [place] [address] 67639- 3390 January, [facility] [id number] [place] [address] 54555- 5851 January, Depression, major, recurrent, moderate F33.1 [facility] [address] 25847- 0977 January, [facility] [address] [facility] [id number], [place] [address]- 4831 January, Depression, major, recurrent, moderate F33.1 [facility] [address] [facility] [id number], [place] [address]- 8276 January, [facility] [address] [facility] [id number], [place] [address]- 5083 Dec, Depression, major, recurrent, moderate F33.1 [facility] [address] [id number], [place] [address]- 8522 Dec, Dental examination Z01.20 [facility] [id number] [place] [address] [id number] Dec, Dental examination Z01.20 [facility] [address] [address]- 5954 Dec, Generalized anxiety disorder F41.1 [facility] [address] [address]- 8626 Dec, Generalized anxiety disorder F41.1 [facility] [address] [facility] [id number], [place] [address]- 3526 Nov, [facility] [address] [facility] [id number], [place] [address]- 7348 Nov, [facility] [address], [place] [address]- 7430 Nov, Generalized anxiety disorder F41.1 [facility] [address] [id number] [id number] Nov, Dental examination Z01.20 [facility] [address] [id number][place] [id number] 5176 Nov, [facility] [address] [facility] [id number][place] 83195601- 5876 Nov, Generalized anxiety disorder F41.1 and 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 [facility] [id number] [place] [address] 04975- 8035 Nov, Depression, major, recurrent, moderate F33.1 [facility] [id number] [place] [address] 34098- 8467 Nov, [facility] [id number] [place] [address] 06405- 4702 Nov, Diabetes type 2, uncontrolled E11.65 and Hypertension I10 [facility] [address] [id number] [place] [address] [id number] Nov, 2015 Dental examination Z01.20 [place] [address] [place] [id number] [place] [address] 61642- 0321 Nov, [place] [address] 09609- 2990 Nov, Depression, major, recurrent, moderate F33.1 [facility] [id number] [place] [address] 31851 -4721 Nov, Penile abrasion S30.812A [place] [address] [place] [id number] [place] [address] 52690- 4301 Oct, Generalized anxiety disorder F41.1 [place] [address] [place] [id number] [place] [address] 94771- 8031 Oct, Depression, major, recurrent, moderate F33.1 [place] [address] [place] [id number] [place] [address] 86247- 3324 Oct, Diabetes type 2, controlled E11.9 and Malaise R53.81 [facility] [address] [place] [id number] [place] [address] 19138- 8869 Oct, [facility] [address] [place] [id number] [place] [address] 34982- 9922 16 Oct, 2015 [facility] [address] [place] [id number] [place] [address] 02642- 7977 Oct, [facility] [id number] [place] [address] 15089- 3422 Oct, Depression, major, recurrent, moderate F33.1 [facility] [address] [id number] [place] [address] 69355- 9031 Oct, Generalized anxiety disorder F41.1 and 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 [facility] [address] [place] [id number] [place] [address] 49694- 7516 Oct, [facility] [id number] [place] [address] 20765- 7340 Oct, Major depressive disorder, recurrent, moderate F33.1 [place] [address] [place] [id number] [place] [address] 36393- 4324 Oct, [place] [address] [place] [id number] [place] [address] 38062- 3065 Oct, [place] [address] [place] [id number] [place] [address] 59699- 0262 Oct, Generalized anxiety disorder F41.1 [place] [address] [place] [address] 78854- 4890 Oct, [facility] [address] [address] [id number] [place] [address] 29429- 2403 Oct, Back muscle spasm M62.830 [facility] [address] [place] [address] 36395- 5522 Oct, Major depressive disorder, recurrent, moderate F33.1 [facility] [id number] [place] [address] 21597 -1474 Sep, Back muscle spasm M62.830 ; Allergic rhinitis J30.9 and Person with feared health complaint in whom no diagnosis is made Z71.1 [facility] [address], [place] [address]- 2051 Sep, Generalized anxiety disorder F41.1 [facility] [id number] [address] -3435 15 Sep, 2015 [facility] [address] [place] [id number] [place] [address] 35538- 9739 15 Sep, 2015 [facility] [address] [place] [id number] [place] [address] 62854- 6212 13 Sep, 2015 Mood disorder F39 ; Diabetes type 2, controlled E11.9 ; Morbid obesity due to excess calories E66.01 and Edema, unspecified type R60.9 [place] [address] [place] [id number] [place] [address] 59052- 0808 13 Sep, 2015 Generalized anxiety disorder F41.1 [place] [address] [place] [id number] [place] [address] 69161- 4787 11 Sep, 2015 [place] [address] [place] [id number] [place] [address] 47391- 4136 07 Sep, 2015 Adjustment disorder with mixed anxiety and depressed mood F43.23 and Depression F32.9 [place] [id number] [place] [address] 87281- 1948 06 Sep, 2015 Generalized anxiety disorder F41.1 [place] [address] [place] [id number] [place] [address] 22582- 6754 05 Sep, 2015 Generalized anxiety disorder 300.02 and Autism spectrum disorder F84.[address] [id number] [id number] Aug, Encounter for dental examination Z01.20 [facility] [address], [place] [address]- 8959 16 Aug, 2015 [facility] [id number] [place] [address] 89736 -7126 17 Jul, 2015 Candidiasis B37.9 [facility] [address] [place] [address] 94835- 1059 13 Jul, [address] [place] [id number] [id number] 12 Jul, 2015 Encounter for dental examination Z01.20 [facility] [address] [place] [address] 06220- 5019 Jul, [facility] [address] [place] [id number] [place] [address] 53185- 4268 08 Jun, 2015 [facility] [address] [place] [id number] [place] [address] 28463- 5189 30 May, 2015 Diabetes type 2, controlled 250.00 and Neuropathy 355.9 [place] [address] [place] [id number] [place] [address] 59736- 9319 16 May, 2015 [place] [address] 17822- 6798 Apr, Generalized anxiety disorder 300.02 and Autism spectrum disorder 299.00 [place] [address] [place] [id number] [place] [address] 02515- 0771 Apr, Abrasion, foot 917.0 ; Chest pain 786.50 and Back pain 724.5 [place] [address] [place] [id number] [place] [address] 13496- 8372 Apr, Generalized anxiety disorder 300.02 [place] [address] [id number] [place] [address] 98478- 6096 Feb, Anxiety state, unspecified 300.00 [place] [address] [id number] [place] [address] 22159- 9456 Feb, Diabetes mellitus without mention of complication, type II or unspecified type, not stated as uncontrolled 250.00 ; Generalized anxiety disorder 300.02 ; Morbid obesity 278.01 ; Benign essential hypertension 401.1 ; Chronic pain 338.29 ; Screen for STD (sexually transmitted disease) V74.5 ; Dysuria 788.1 and Kelly infection of genital region 112.2 [place] [address] [id number] [place] [address] 77060- 8988 Feb, [place] [address] [id number] [place] [address] 85783- 6408 January, Generalized anxiety disorder 300.02 and Autism spectrum disorder 299.00 [facility] [address] [id number] [place] [address]- 0335 30 Dec, 2014 [facility] [place] [facility] [address] [facility] [id number], [place] [address]- 3974 Dec, [facility] [place] [facility] [address] [facility] [id number] [place] [address]- 1524 Dec, [facility] [place] [facility] [address] [id number], [place] [address]- 7341 Nov, [facility] [address] [id number] [id number] Nov, [facility] [place] [facility] [address] [id number] [place] [address] 89541- 6270 Nov, [facility] [place] [facility] [address] [facility] [id number] [place] [address]- 8856 Nov, [facility] [address] [id number] Nov, [facility] [place] [facility] [address] [facility] [id number] [place] [address]- 2444 Oct, [facility] [place] [facility] [address] [id number], [place] [address]- 4519 Jul, [facility] [place] [facility] [address] [facility] [id number], [place]- 9402 Jul, [facility] [place] [facility] [address] [facility] [id number][place]- 6128 Jul, [facility] [place] [facility] [address] [facility] [id number][place]- 9265 Jul, [facility] [place] [facility] [address] [facility] [id number], [place] [address]- 8667 Jul, [facility] [place] [facility] [address] [facility] [id number][place]- 2196 Jul, [facility] [place] [facility] [address] [facility] [id number] [place] [address]- 6908 Jul, [facility] [place] [facility] [address] [id number] [place] [address]- 7855 Jul, [facility] [place] [facility] [address] [id number] [place] [address]- 3875 Jul, [facility] [place] [facility] [address] [id number] [place] [address]- 1687 Jul, [facility] [place] [facility] [address] [id number] [place] [address]- 0320 Jun, [facility] [place] [facility] [address] [id number] [place] [address]- 4544 Jun, [facility] [place] [facility] [address] [id number] [place] [address]- 9364 Jun, [facility] [place] [facility] [address] [id number] [place] [address]- 4262 Jun, [facility] [place] [facility] [address] [id number] [place] [address]- 3636 Jun, [facility] [place] [facility] [address] [id number] [place] [address]- 1328 Jun, [facility] [place] [facility] [address] [id number] [place] [address]- 6741 Jun, [facility] [place] [facility] [address] [id number] [place] [address]- 8972 30 May, 2013 [facility] [place] [facility] [address] [id number] [place] [address]- 9792 30 May, 2013 [facility] [place] [facility] [address] [id number] [place] [address]- 5345 12 May, 2014 [facility] [place] [facility] [address] [id number] [place] [address]- 2610 12 May, 2013 [facility] [place] [facility] [address] [id number] [place] [address]- 1854 10 May, 2014 [facility] [place] [facility] [address] [id number] [place] [address]- 6305 May, [facility] [place] [facility] [address] [id number] [place] [address]- 3886 May, [facility] [place] [facility] [address] [id number] [place] [address]- 5102 May, [facility] [place] [facility] [address] [id number] [place] [address]- 2754 Apr, [facility] [place] [facility] [address] [id number] [place] [address]- 8814 Apr, [facility] [place] [facility] [address] [id number] [place] [address]- 5939 Apr, [facility] [place] [facility] [address] [id number] [place] [address]- 5099 Apr, [facility] [place] [facility] [address] [id number] [place] [address]- 5151 Apr, [facility] [place] [facility] [address] [id number] [place] [address]- 6411 Apr, [facility] [place] [facility] [address] [id number] [place] [address]- 1090 Apr, [facility] [place] [facility] [address] [id number] [place] [address]- 9729 Apr, [facility] [place] [facility] [address] [id number] [place] [address]- 0436 Apr, [facility] [place] [facility] [address] [id number] [place] [address]- 1079 Mar, [facility] [place] [facility] [address] [id number] [place] [address]- 7445 Mar, [facility] [place] [facility] [address] [id number] [place] [address]- 7873 Mar, [facility] [place] [facility] [address] [id number] [place] [address]- 0264 Mar, [facility] [place] [facility] [address] [id number] [place] [address]- 2837 Mar, [facility] [place] [facility] [address] [id number] [place] [address]- 4366 Mar, [facility] [place] [facility] [address] [id number] [place] [address]- 1606 Feb, [facility] [place] [facility] [address] [id number] [place] [address]- 8006 Feb, [facility] [place] [facility] [address] [id number] [place] [address]- 2659 Feb, [facility] [place] [facility] [address] [id number] [place] [address]- 1877 January, [facility] [place] [facility] [address] [id number] [place] [address]- 3800 January, [facility] [place] [facility] [address] [id number] [place] [address]- 2913 January, [facility] [place] [facility] [address] [id number] [place] [address]- 2715 January, [facility] [place] [facility] [address] [id number] [place] [address]- 3409 January, [facility] [place] [facility] [address] [id number] [place] [address]- 3590 January, [facility] [place] [facility] [address] [id number] [place] [address]- 1396 Dec, [facility] [place] [facility] [address] [id number] [place] [address]- 6112 Dec, [facility] [place] [facility] [address] [id number] [place] [address]- 7390 Dec, [facility] [place] [facility] [address] [id number] [place] [address]- 5432 Dec, [facility] [place] [facility] [address] [id number] [place] [address]- 7078 Nov, [facility] [address] [id number] [place] [address]- 0707 Nov, [facility] [place] [facility] [address] [id number] [place] 8838 Oct, [facility] [address] [id number] [place] [address]- 8423 Oct, [facility] [place] [facility] [address] [id number] [place] [address]- 2805 Sep, [facility] [address] [id number] [place] [address]- 2755 Sep, [facility] [address] [id number] [place] [address]- 0246 Aug, [facility] [address] [id number] [place] [address]- 3690 Aug, [facility] [address] [id number] [place] [address]- 4579 Aug, [facility] [address] [id number] [place] [address]- 6592 Jul, [facility] [address] [facility] [id number] [place] [address]- 1244 Jul, [facility] [place] [facility] [address] [id number] [place] [address] Jul, [facility] [place] [facility] [address] [id number] [place] [address] Jul, [facility] [place] [facility] [address] [id number] [place] [address] Jul, [facility] [place] [facility] [address] [id number] [place] [address] 17 May, 2013 [facility] [place] [facility] [address] [id number] [place] [address] May, [facility] [address] [id number] [place] [address] Apr, [facility] [place] [facility] [address] [id number] [place] [address] Apr, [facility] [place] [facility] [address] [id number] [place] [address] Mar, [facility] [place] [facility] [address] [id number] [place] [address] Mar, [facility] [place] [facility] [address] [id number] [place] [address] Mar, [facility] [place] [facility] [address] [id number] [place] [address] Mar, [facility] [place] [facility] [address] [id number] [place] [address] Feb, [facility] [place] [facility] [address] [id number] [place] [address] Feb, [facility] [place] [facility] [address] [id number] [place] [address] Feb, [facility] [place] [facility] [address] [id number] [place] [address] Feb, [facility] [place] [facility] [address] [id number] [place] [address] Feb, [facility] [place] [facility] [address] [id number] [place] [address] January, [facility] [place] [facility] [address] [id number] [place] [address] January, [facility] [place] [facility] [address] [id number] [place] [address] January, [facility] [place] [facility] [address] [id number] [place] [address] January, [facility] [place] [facility] [address] [id number] [place] [address] 24 Dec, 2012 [facility] [address] [id number] [place] [address] 24 Dec, 2012 [facility] [address] [id number] [place] [address] 18 Dec, 2012 [facility] [address] [id number] [place] [address] 10 Dec, 2012 [facility] [address] [id number] [place] [address] 19 Nov, 2012 [facility] [address] [id number] [place] [address] 05 Nov, 2012 [facility] [address] [id number] [place] [address] Oct, [facility] [address] [facility] [id number] [place] [address] Aug, [facility] [address] [id number] [place] [address] Aug, [facility] [address] [facility] [id number] [place] [address] Dec, [facility] [address] [facility] [id number] [place] [address] Dec, [facility] [address] [id number] [place] [address] 05 Dec, 2011 [facility] [address] [id number] [place] [address] 26 Nov, 2011 [facility] [address] [id number] [place] [address] 15 Nov, 2011 [facility] [address] [id number] [place] [address] 21 Oct, 2011 [facility] [address] [facility] [id number] [place] [address] 07 Oct, 2011 [facility] [address] [id number] [place] [address] Oct, [facility] [address] [id number] [place] [address] Sep, [facility] [place] [facility] [address] [id number] [place] [address] Sep, [facility] [address] [id number] [place] [address]- [address] Sep, [facility] [address] [id number] [place] [address] Sep, [facility] [place] [facility] [address] [id number] [place] [address] Sep, [facility] [address] [id number] [place] [address] Sep, [facility] [address] [id number] [place] [address] Sep, [facility] [address] [id number] [place] [address] Sep, [facility] [address] [id number] [place] [address] Jul, [facility] [place] [facility] [address] [id number] [place] [address] 15 Jul, 2011 [facility] [place] [facility] [address] [id number] [place] [address] 15 Jul, 2011 [facility] [place] [facility] [address] [id number] [place] [address] 14 Nov, 2010 [facility] [place] [facility] [address] [id number] [place] [address] 17 Aug, 2010 [facility] [place] [facility] [address] [id number] [place] [address] 17 Aug, 2010 [facility] [place] [facility] [address] [id number], [place] [address] 16 Aug, 2010 [facility] [address] [id number] [place] [address] 15 Aug, 2010 [facility] [place] [facility] [address] [id number] [place] [address] 09 Aug, 2010 [facility] [place] [facility] [address] [id number] [place] [address] Jul, [facility] [place] [facility] [address] [id number], [place] [address] Jun, [facility] [address] [id number] [place] [address] Jun, [facility] [place] [facility] [address] [id number], [place] [address] Sep, [facility] [place] [facility] [address] [id number], [place] [address] 28 Aug, 2009 [facility] [place] [facility] [address] [id number], [place] [address] 09 Aug, 2009 [facility] [address] [id number], [place] [address] 08 Aug, 2009 [facility] [place] [facility] [address] [id number], [place] [address] 14 Jun, 2009 [facility] [place] [facility] [address] [id number], [place] [address] 14 Jun, 2009 [facility] [place] [facility] [address] [id number], [place] [address] 14 May, 2009 [facility] [place] [facility] [address] [id number], [place] [address] 17 Apr, 2009 [facility] [place] [facility] [address] [id number], [place] [address] 16 Mar, 2009 [facility] [place] [facility] [address] [id number], [place] [address] 14 Jan, 2009 [facility] [place] [facility] [address] [facility] [id number] [place] [address] Oct, IMMUNIZATIONS No Known Immunizations SOCIAL HISTORY Never Assessed REASON FOR VISIT anxiety concerns PLAN OF CARE VITAL SIGNS MEDICATIONS Medication Instructions Dosage Frequency Start Date End Date Duration Status HydrOXYzine HCl 25 MG Orally three times a day as needed 1-2 tabs Nov 30 days Active RESULTS No Results PROCEDURES No [...] Hospitalization History celluitis of the left upper thigh-[facility] 04/2017 Hospitalization History [facility]-inpatient psych 4 day stay 2013 Hospitalization History [facility]- Shaking, unsure of blood sugar level 11/20/2017
--- OUTSIDE RECORDS SUMMARY | 2018-07-05 10:48 | XMS REPORT ---
Author Author NERISSA MARTINEZ [facility] Address [address] [place] [address] Care Team Providers Care Finance Specialist Name Role Phone NERISSA MARTINEZ Unavailable PROBLEMS Type Condition ICD9-CM Code MKW03-XC Code Onset Dates Condition Status SNOMED Code Problem Other male erectile dysfunction N52.8 Active 224136857 Problem Diabetes type 2, controlled E11.9 Active 22058202 Problem Obesity, unspecified E66.9 Active 566755758 Problem Gastro-esophageal reflux disease with esophagitis K21.0 Active 405935613 Problem Insomnia, unspecified G47.00 Active 531816506 Problem Anxiety F41.9 Active 47070103 Problem 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 Active 10566894 Problem Hypertriglyceridemia E78.1 Active 104659594 Problem Generalized anxiety disorder F41.1 Active 16193115 Problem Chronic fatigue R53.82 Active 17749704 Problem Type 2 diabetes mellitus 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 E11.9 Active 855477183 Problem BMI 45.0-49.9, adult Z68.42 Active 492297896 Problem Other chronic pain G89.29 Active 77555641 Problem Morbid obesity due to excess calories E66.01 Active 102163185 Problem Type 2 diabetes mellitus with hyperglycemia E11.65 Active 962238474 Problem Hypertension I10 Active 51692638 Problem Diabetes type 2, uncontrolled E11.65 Active 007962244 Problem Mild episode of recurrent major depressive disorder F33.0 Active 087847931 Problem Type 2 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 Active 66131530 Problem Hypogonadism in male E29.1 Active 77697020 Problem Seasonal allergies J30.2 Active 209915619 Problem Controlled type 2 diabetes mellitus without complication, without long -term current use of insulin E11.9 Active 761609920 Problem Diabetic polyneuropathy associated with type 2 diabetes mellitus E11.42 Active 41825360 Problem Polyneuropathy G62.9 Active 12839629 Problem 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 Active 350289165 Problem [facility] 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.4 Active 653423821 Problem Diverticulitis of small intestine without perforation or abscess without bleeding K57.12 Active 23328053 Problem GERD without esophagitis K21.9 Active 861601008 Problem Type 2 diabetes mellitus with hyperglycemia E11.65 Active 374815448 ALLERGIES No Information ENCOUNTERS Encounter Location Date Diagnosis [facility] [id number] [place] [address] 05081- 0535 Jun, [facility] [address] 6[address]- 1058 May, [facility] [id number] [place] [address] 99801- 0967 May, [facility] [address] 61312- 9585 May, Uncontrolled type 2 diabetes mellitus with hyperglycemia E11.65 ; BMI 45.0-49.9, adult Z68.42 and Colitis K52.9 [facility] [address] 64113- 1513 May, [facility] [id number] [place] [address] 56115- 7703 May, [facility] [id number] [place] [address] 11772 -9979 Apr, Colitis K52.9 ; Abdominal discomfort R10.9 and Anxiety F41.9 [facility] [id number] [place] [address] 60352- 7747 Apr, [facility] [id number] [place] [address] 99524- 2908 Apr, Colitis K52.9 and BMI 45.0-49.9, adult Z68.42 [facility] [id number] [place] [address] 32184- 0651 Apr, Diabetes type 2, uncontrolled E11.65 [facility] [id number] [place] [address] 51537- 9055 23 Aug, 2018 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 ; Generalized anxiety disorder F41.1 and BMI 45.0-49.9, adult Z68.42 [facility] [id number] [place] [address] 32180- 6311 Apr, [facility] [id number] [place] [address] 31267- 3227 Apr, BMI 45.0-49.9, adult Z68.42 [facility] [address] 59471- 8764 Apr, Candidiasis B37.9 ; Pain in right shoulder M25.511 ; Pain in left shoulder M25.512 ; Other chronic pain G89.29 and Morbid obesity due to excess calories E66.01 [facility] [id number] [place] [address] 42615- 8535 Apr, Hypogonadism in male E29.1 [facility] [address] 91880 -0454 Mar, Yeast dermatitis B37.2 and Sensation of foreign body in throat R09.89 [facility] [id number] [place] [address] 36772- 0484 Mar, [facility] [id number] [place] [address] 00813- 5315 Mar, Hypogonadism in male E29.1 [facility] [id number] [place] [address] 88938- 4993 Mar, Hypogonadism in male E29.1 [facility] [id number] [place] [address] 65084- 6421 Mar, [facility] [address] 53021- 1552 Mar, Diabetes type 2, uncontrolled E11.65 and Hypogonadism in male E29.1 [facility] [id number] [place] [address] 49037- 8692 Mar, [facility] [id number] [place] [address] 43938- 0866 11 Feb, 2018 Diabetes type 2, controlled E11.9 ; Myalgia M79.1 and BMI 45.0-49.9, adult Z68.[address] [facility] [id number] [place] [address] 30446 -4198 Feb, Hematuria, unspecified type R31.9 ; Side pain R10.9 and Rash R21 [facility] [address] 79466- 2206 January, [facility] [address] 82906- 9026 January, [facility] [address] 23906- 7974 January, [facility] [address] 85971 -6088 January, Seasonal allergies J30.2 and BMI 45.0-49.9, adult Z68.42 [facility] [id number] [place] [address] 05314- 3558 January, Chronic fatigue R53.82 ; Mild episode of recurrent major depressive disorder F33.0 and Polyneuropathy G62.9 [facility] [id number] [place] [address] 12627- 6297 January, Chronic fatigue R53.82 ; BMI 45.0-49.9, adult Z68.42 and Anxiety F41.9 [facility] [id number] [place] [address] 21207- 1421 January, Generalized anxiety disorder F41.1 [facility] [address] 47330- 1032 Dec, 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 ; Generalized anxiety disorder F41.1 ; High risk medication use Z79.899 and BMI 45.0-49.9, adult Z68.42 [facility] [address] [place] [address]- 3151 Dec, [facility] [id number] [place] [address] [id number] Dec, Encounter for dental examination Z01.20 [facility] [id number] [place] [address] 00509- 0928 11 Dec, 2017 Mild episode of recurrent major depressive disorder F33.0 ; Type 2 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 and manager intermediate 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.4 [facility] [id number] [place] [address] 48214- 9191 Nov, [facility] [address] 12202- 3985 Nov, BMI 45.0-49.9, adult Z68.42 ; 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 and Generalized anxiety disorder F41.1 [facility] [id number] [place] [address] 92153- 1758 Nov, Type 2 diabetes mellitus 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 E11.9 and [facility] 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.4 [facility] [id number] [place] [address] [id number] Oct, Dental examination Z01.20 and Dental caries K02.9 [facility] [id number] [place] [address] 23338- 0478 Oct, [facility] [id number] [place] [address] 66476- 0497 Oct, BMI 45.0-49.9, adult Z68.42 ; 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 and Generalized anxiety disorder F41.1 [facility] [id number] [place] [address] 81721- 1137 Oct, [facility] [id number] [place] [address] 07632- 2400 Oct, [facility] [id number] [place] [address] 30452- 6669 Oct, Hypertriglyceridemia E78.1 [facility] [address] [address]- 0591 Oct, Hypertriglyceridemia E78.1 [facility] [address] 4[address] Sep, Controlled type 2 diabetes mellitus without complication, without long-term current use of insulin E11.9 [facility] [id number] [place] [address] 03205- 3739 Sep, [facility] [address] [place] [address] 16247- 1867 Sep, Controlled type 2 diabetes mellitus without complication, without long-term current use of insulin E11.9 [facility] [address] [address]- 2321 Sep, [facility] [id number] [place] [address] 55445- 7079 Sep, [facility] [address] [address]- 4341 Sep, BMI 45.0-49.9, adult Z68.42 ; Diabetic polyneuropathy associated with type 2 diabetes mellitus E11.42 and Chronic fatigue R53.82 [facility] [address], [place] [address]- 8305 Sep, [facility] [address] [address]- 2712 Sep, Hypertriglyceridemia E78.1 [facility] [address] [address]- 9510 Aug, [facility] [id number] [place] [address] 825450- 2738 Aug, Generalized anxiety disorder F41.1 [facility] [address] [address]- 6802 Aug, [facility] [id number] [place] [address] 83072- 5557 Aug, Hypertriglyceridemia E78.1 [facility] [id number] [place] [address] 28263- 5072 Jul, [facility] [id number] [place] [address] 15320- 4608 Jul, [facility] [address] 43616- 1019 Jul, Generalized anxiety disorder F41.1 ; 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 ; BMI 45.0-49.9, adult Z68.42 and Patient's noncompliance with other medical treatment and regimen Z91.19 [facility] [id number] [place] [address] 49934- 3035 Jul, Diabetes type 2, uncontrolled E11.65 ; Diabetic polyneuropathy associated with type 2 diabetes mellitus E11.42 ; Abdominal pain , right upper quadrant R10.11 and Low back pain radiating to left lower extremity M54.5 [facility] [id number] [place] [address] 65924- 2836 Jul, Generalized anxiety disorder F41.1 [facility] [id number] [place] [address] 18973- 1172 Jul, [facility] [id number] [place] [address] 31035- 2636 Jul, Hypertriglyceridemia E78.1 [facility] [id number] [place] [address] 90577- 9389 Jul, Controlled type 2 diabetes mellitus without complication, without long-term current use of insulin E11.9 [facility] [id number] [place] [address] 43504- 9665 Jun, [facility] [id number] [place] [address] 19183- 0528 Jun, Hypertriglyceridemia E78.1 [facility] [address] 70919- 9589 Jun, Controlled type 2 diabetes mellitus without complication, without long-term current use of insulin E11.9 [facility] [id number] [place] [address] 96297- 7674 Jun, Generalized anxiety disorder F41.1 [facility] [id number] [place] [address] 21439- 3631 02 Jun, 2017 Candidiasis B37.9 [facility] [address] 40246- 9376 19 May, 2017 [facility] [id number] [place] [address] 95782- 4843 18 May, 2017 Controlled type 2 diabetes mellitus without complication, without long-term current use of insulin E11.9 [facility] [id number] [place] [address] 94480- 8290 14 May, 2017 Hypertriglyceridemia E78.1 [facility] [id number] [place] [address] 10380- 7615 14 May, 2017 Hypertriglyceridemia E78.1 [facility] [id number] [place] [address] 07862- 3925 14 May, 2017 Hypertriglyceridemia E78.1 and Hypotestosteronemia E34.9 [facility] [id number] [place] [address] 29292- 3393 14 May, 2017 Generalized anxiety disorder F41.1 [facility] [id number] [place] [address] 70070- 8389 05 May, [address] [facility] [id number] [place] [address] 23527 -7775 May, Abscess and cellulitis L03.90 [facility] [id number] [place] [address] [id number] Apr, [facility] [id number] [place] [address] 38864- 9978 Apr, [facility] [id number] [place] [address] 03818- 3950 Apr, Dermatofibroma of back D23.5 [facility] [id number] [place] [address] 51989 -5717 Apr, Muscle strain of left thigh, initial encounter S76.912A [facility] [id number] [place] [address] 55491- 1778 Apr, [facility] [id number] [place] [address] 48996- 8193 Apr, Generalized anxiety disorder F41.1 [facility] [id number] [place] [address] 91827- 7034 Apr, Polyneuropathy G62.9 [facility] [id number] [place] [address] 49269- 5276 Apr, GERD without esophagitis K21.9 [facility] [id number] [place] [address] 76542- 0352 Apr, Generalized anxiety disorder F41.1 ; Diastasis recti M62.08 and Controlled type 2 diabetes mellitus without complication, without long-term current use of insulin E11.9 [facility] [id number] [place] [address] 93986- 7671 Apr, Generalized anxiety disorder F41.1 ; 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 and Controlled type 2 diabetes mellitus without complication, without long-term current use of insulin E11.9 [facility] [id number] [place] [address] 82783- 1627 Mar, Generalized anxiety disorder F41.1 ; Diastasis recti M62.08 and Controlled type 2 diabetes mellitus without complication, without long-term current use of insulin E11.9 [facility] [id number] [place] [address] 70646- 2724 Mar, Controlled type 2 diabetes mellitus without complication, without long-term current use of insulin E11.9 [facility] [id number] [place] [address] 31604- 8464 Mar, Generalized anxiety disorder F41.1 [facility] [address] [address]- 2465 Mar, Generalized anxiety disorder F41.1 [facility] [address] [place] [address] 05246- 1847 Mar, Generalized anxiety disorder F41.1 [facility] [id number] [place] [address] 20267- 8741 Mar, Generalized anxiety disorder F41.1 [facility] [id number] [place] [address] 23880- 2676 Feb, Controlled type 2 diabetes mellitus without complication, without long-term current use of insulin E11.9 [facility] [address] [place] [address] 17819- 0077 Feb, Controlled type 2 diabetes mellitus without complication, without long-term current use of insulin E11.9 and Tinea cruris B35.6 [facility] [id number] [place] [address] 65604- 8523 Feb, Diabetes type 2, controlled E11.9 [facility] [id number] [place] [address] [id number] Feb, Dental examination Z01.20 [facility] [address] [place] [address] 47436- 4687 Feb, Dental examination Z01.20 [facility] [id number] [place] [address] 61644- 3289 Feb, Generalized anxiety disorder F41.1 [facility] [address] [place] [address] 37583 -7764 Feb, Muscle spasm M62.838 and Diabetes type 2, controlled E11.9 [facility] [address] [place] [address] 22255- 2086 Feb, Type 2 diabetes mellitus with hyperglycemia E11.65 [facility] [id number] [id number] Feb, Dental examination Z01.20 [facility] [address] [place] [address] [id number] Feb, Encounter for dental examination Z01.20 [facility] [id number] [place] [address] 32475- 5648 Feb, Diabetes type 2, controlled E11.9 [facility] [id number] [place] [address] 32057- 0731 Feb, Type 2 diabetes mellitus with hyperglycemia E11.65 [facility] [id number] [place] [address] 80776- 9970 Feb, [facility] [id number] [place] [address] 94378- 3114 Feb, Controlled type 2 diabetes mellitus without complication, without long-term current use of insulin E11.9 [facility] [id number] [place] [address] 65059- 6650 January, Candidiasis B37.9 [facility] [id number] [place] [address] 20267- 9950 January, Type 2 diabetes mellitus with hyperglycemia E11.65 ; Hypertension I10 and Anxiety F41.9 [facility] [id number] [place] [address] 98190- 5293 January, Type 2 diabetes mellitus with hyperglycemia E11.65 [facility] [id number] [place] [address] 29843- 8956 January, Controlled type 2 diabetes mellitus without complication, without long-term current use of insulin E11.9 [facility] [id number] [place] [address] 14933- 6720 January, Generalized anxiety disorder F41.1 ; 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 ; Foot callus L84 and Controlled type 2 diabetes mellitus without complication, without long-term current use of insulin E11.9 [facility] [id number] [place] [address] 68550- 1075 Dec, [facility] [address] [place] [address] 07411- 5220 Dec, [facility] [id number] [place] [address] 79817- 3929 Dec, Foot callus L84 and Rash R21 [facility] [id number] [place] [address] 33360- 6365 Dec, Controlled type 2 diabetes mellitus without complication, without long-term current use of insulin E11.9 [facility] [id number] [place] [address] 06829- 1579 Nov, [facility] [id number] [place] [address] 62344 -0114 Nov, Sore throat J02.9 and Strep pharyngitis J02.0 [facility] [id number] [place] [address] 11200- 5371 Nov, Generalized anxiety disorder F41.1 [facility] [id number] [place] [address] 06600- 5701 Nov, [facility] [id number] [place] [address] 67723- 8509 Nov, [facility] [id number] [place] [address] 33662- 7580 Nov, Type 2 diabetes mellitus with hyperglycemia E11.65 [facility] [id number] [place] [address] 73415- 5421 Nov, Diabetes type 2, uncontrolled E11.65 and Localized edema R60.0 [facility] [id number] [place] [address] 64238- 0401 Nov, Controlled type 2 diabetes mellitus without complication, without long-term current use of insulin E11.9 [facility] [address] [place] [address] 87887- 9464 14 Oct, 2016 Generalized anxiety disorder F41.1 and 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 [facility] [address] [address]- 4359 14 Oct, 2016 [facility] [id number] [place] [address] 67798- 9491 13 Oct, 2016 Type 2 diabetes mellitus with hyperglycemia E11.65 [facility] [id number] [place] [address] 34749- 7711 09 Oct, 2016 Type 2 diabetes mellitus with hyperglycemia E11.65 and manager intermediate 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.4 [facility] [address] [place] [address] 13247- 0099 Oct, [facility] [id number] [place] [address] 56135- 9600 Oct, [facility] [id number] [place] [address] [id number] Oct, Encounter for dental examination Z01.20 [facility] [address] [place] [address] 28468- 8287 Sep, [facility] [id number] [place] [address] 71335- 0051 Sep, Diabetes type 2, controlled E11.9 [facility] [address] [address] -6600 Sep, Abdominal pain R10.9 and Diverticulitis of small intestine without perforation or abscess without bleeding K57.12 [facility] [address] [address]- 4075 Sep, [facility] [address] [place] [address] 78564- 0019 Sep, Diabetes type 2, controlled E11.9 [facility] [id number] [place] [address] Sep, Controlled type 2 diabetes mellitus without complication, without long-term current use of insulin E11.9 [facility] [id number] [place] [address] Sep, Type 2 diabetes mellitus 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 E11.9 and [facility] 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.[address] [facility] [place] [id number] [place] [address] Aug, Lower abdominal pain R10.30 ; GERD without esophagitis K21.9 and Candidiasis of skin B37.[address] [address] Aug, Controlled type 2 diabetes mellitus without complication, without long-term current use of insulin E11.9 and Diabetic polyneuropathy associated with type 2 diabetes mellitus E11.42 [facility] [place] [address] [address] Jul, Kelly infection of genital region B37.49 and Diabetes type 2, controlled E11.[address] [address] Jul, Controlled type 2 diabetes mellitus without complication, without long-term current use of insulin E11.9 ; 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 and Acute pharyngitis due to other specified organisms J02.8 [facility] [place] [id number] [place] [address] Jul, Acute upper respiratory infection, unspecified J06.9 and Other viral agents as the cause of diseases classified elsewhere B97.89 [place] [id number] [place] [address] Jun, Generalized anxiety disorder F41.1 [facility] [facility] [id number] [place] [address] 90914- 2194 Jun, [address] [address]23- 9800 Jun, Diabetes type 2, controlled E11.9 and Polyneuropathy G62.9 [place] [id number] [place] [address] 41849- 6847 May, [address] [id number] [address] 39[address] 28 May, 2016 Generalized anxiety disorder F41.1 [facility] [id number] [place] [address] 46918- 3028 15 May, 2016 Polyneuropathy G62.9 [facility] [id number] [place] [address] 53427- 6576 13 May, 2016 [facility] [id number] [place] [address] 33671- 9079 Apr, Anxiety disorder, unspecified F41.9 [facility] [facility] [id number] [place] [address] 26006- 6710 Mar, Abdominal pain, unspecified abdominal location R10.9 ; Type 2 diabetes mellitus with hyperglycemia E11.65 ; manager intermediate 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.4 and Diabetic polyneuropathy associated with type 2 diabetes mellitus E11.42 [facility] [id number] [place] [address] 99916- 9680 Mar, Generalized anxiety disorder F41.1 [facility] [id number] [place] [address] 44434- 9490 Mar, Generalized abdominal pain R10.84 and Other male erectile dysfunction N52.[address] [facility] [id number] [place] [address] 29652 -2268 Mar, [facility] [facility] [id number] [place] [address] 61481- 4935 Feb, Generalized anxiety disorder F41.1 [facility] [id number] [place] [address] 58791- 7661 Feb, Abdominal cramping R10.9 ; Acute bilateral low back pain without sciatica M54.5 and Malaise R53.[address] [facility] [id number] [place] [address] 13228 -0788 Feb, Candidiasis B37.9 and Costochondritis M94.0 [facility] [id number] [place] [address] Feb, Allergic rhinitis, unspecified allergic rhinitis type J30.9 [facility] [id number] [place] [address] 85885- 6595 Feb, Generalized anxiety disorder F41.1 [facility] [id number] [place] [address] 08007- 2192 Feb, [facility] [address] 96982- 5695 Feb, Major depressive disorder, recurrent, moderate F33.1 [facility] [address] 61300- 4256 Feb, Generalized anxiety disorder F41.1 [facility] [id number] [place] [address] 62030- 7098 January, Unspecified infectious disease B99.9 [facility] [id number] [place] [address] [id number] January, Dental examination Z01.20 [facility] [id number] [place] [address] 55040- 3197 January, [facility] [id number] [place] [address] 29745- 7868 January, Diabetes type 2, uncontrolled E11.[address] [facility] [id number] [place] [address] 13838 -3482 January, Wheezing R06.2 and History of pneumonia Z87.01 [facility] [id number] [place] [address] 32040- 7061 January, [facility] [id number] [place] [address] 10983- 6189 January, Depression, major, recurrent, moderate F33.1 [facility] [id number] [place] [address] 76042- 7985 January, [facility] [address] [address] 3044 January, Depression, major, recurrent, moderate F33.1 [facility] [id number] [place] [address] 09273- 1706 January, [facility] [id number] [place] [address] 20185- 4945 Dec, Depression, major, recurrent, moderate F33.1 [facility] [id number] [place] [address] 25503- 4997 Dec, Dental examination Z01.20 [facility] [id number] [place] [address] [id number] Dec, Dental examination Z01.20 [facility] [id number] [place] [address] 40568- 3576 Dec, Generalized anxiety disorder F41.1 [facility] [id number] [place] [address] 37121- 7023 Dec, Generalized anxiety disorder F41.1 [facility] [address] [address]- 4381 Nov, [facility] [id number] [place] [address] 74919- 3037 Nov, [facility] [address] [address]- 8608 Nov, Generalized anxiety disorder F41.1 [facility] [address] [place] [address] [id number] Nov, Dental examination Z01.20 [facility] [address] [address]- 1256 Nov, [facility] [address] [place] [address] 691422- 4686 Nov, Generalized anxiety disorder F41.1 and 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 [facility] [address] [place] [address] 55725- 4323 Nov, Depression, major, recurrent, moderate F33.1 [facility] [id number] [place] [address] 59185- 8476 Nov, [facility] [address] 00309- 8771 Nov, Diabetes type 2, uncontrolled E11.65 and Hypertension I10 [facility] [address] [id number] Nov, 2015 Dental examination Z01.20 [facility] [address] 96907- 9717 Nov, [facility] [address] 29866- 8016 Nov, Depression, major, recurrent, moderate F33.[address] [facility] [address] 37163 -8651 Nov, Penile abrasion S30.812A [facility] [address] 20238- 4386 Oct, Generalized anxiety disorder F41.1 [facility] [address] 25000- 9728 Oct, Depression, major, recurrent, moderate F33.1 [facility] [id number] [place] [address] 26236- 3326 Oct, Diabetes type 2, controlled E11.9 and Malaise R53.81 [facility] [id number] [place] [address] 24208- 1468 17 Oct, 2015 [facility] [address] 97872- 5345 16 Oct, 2015 [facility] [id number] [place] [address] 57723- 2671 10 Oct, 2015 [facility] [address] 38647- 6685 Oct, Depression, major, recurrent, moderate F33.1 [facility] [address] [place] [address] 90267- 0556 Oct, Generalized anxiety disorder F41.1 and 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 [facility] [id number] [place] [address] 22900- 8068 Oct, [facility] [id number] [place] [address] 82265- 2919 Oct, Major depressive disorder, recurrent, moderate F33.1 [place] [facility] [id number] [place] [address] 05415- 0945 Oct, [facility] [id number] [place] [address] 72383- 6525 Oct, [facility] [id number] [place] [address] 12746- 0933 Oct, Generalized anxiety disorder F41.1 [facility] [id number] [place] [address] 92986- 4318 Oct, [facility] [id number] [place] [address] 73366- 2422 Oct, Back muscle spasm M62.830 [facility] [id number] [place] [address] 90028- 5421 Oct, Major depressive disorder, recurrent, moderate F33.1 [facility] [address] [place] [address] 49023 -7151 Sep, Back muscle spasm M62.830 ; Allergic rhinitis J30.9 and Person with feared health complaint in whom no diagnosis is made Z71.1 [facility] [address] [place] [address] 21364- 1365 Sep, Generalized anxiety disorder F41.1 [facility] [id number] [place] [address] 87756 -8511 Sep, [facility] [address] [place] [address] 51079- 3115 15 Sep, 2015 [facility] [id number] [place] [address] 05980- 6439 13 Sep, 2015 Mood disorder F39 ; Diabetes type 2, controlled E11.9 ; Morbid obesity due to excess calories E66.01 and Edema, unspecified type R60.9 [place] [id number] [place] [address] 51642- 8129 13 Sep, 2015 Generalized anxiety disorder F41.1 [place] [facility] [id number] [place] [address] 36199- 3121 11 Sep, 2015 [place] [facility] [id number] [place] [address] 89981- 7824 07 Sep, 2015 Adjustment disorder with mixed anxiety and depressed mood F43.23 and Depression F32.9 [place] [id number] [place] [address] 22925- 0543 06 Sep, 2015 Generalized anxiety disorder F41.1 [facility] [facility] [id number] [place] [address] 68386- 6415 05 Sep, 2015 Generalized anxiety disorder 300.02 and Autism spectrum disorder F84.0 [facility] [address] [id number] [id number] Aug, Encounter for dental examination Z01.20 [facility] [address] [address]- 5691 16 Aug, 2015 [facility] [address] [place] [address] 23688 -1116 17 Jul, 2015 Candidiasis B37.9 [facility] [id number] [place] [address] 80532- 0350 13 Jul, 2015 [facility] [address] [id number] [id number] 12 Jul, 2015 Encounter for dental examination Z01.20 [facility] [id number] [address] 4446 Jul, [facility] [id number] [place] [address] 36673- 3807 Jun, [facility] [id number] [place] [address] 87522442- 2776 30 May, 2015 Diabetes type 2, controlled 250.00 and Neuropathy 355.9 [place] [id number] [place] [address] 15666- 3350 May, [facility] [id number] [place] [address] 78866- 5561 Apr, Generalized anxiety disorder 300.02 and Autism spectrum disorder 299.00 [place] [facility] [id number] [place] [address] 87882- 3620 Apr, Abrasion, foot 917.0 ; Chest pain 786.50 and Back pain 724.5 [place] [id number] [place] [address] 37421- 9433 Apr, Generalized anxiety disorder 300.02 [facility] [id number] [place] [address] 64762- 4932 Feb, Anxiety state, unspecified 300.00 [place] [id number] [place] [address] 97837- 7306 Feb, Diabetes mellitus without mention of complication, type II or unspecified type, not stated as uncontrolled 250.00 ; Generalized anxiety disorder 300.02 ; Morbid obesity 278.01 ; Benign essential hypertension 401.1 ; Chronic pain 338.29 ; Screen for STD (sexually transmitted disease) V74.5 ; Dysuria 788.1 and Kelly infection of genital region 112.2 [id number] [place] [address] 36618- 0213 Feb, [facility] [id number] [place] [address] 47661- 6033 January, Generalized anxiety disorder 300.02 and Autism spectrum disorder 299.00 [place] [address] [place] [address]- 7137 30 Dec, 2014 [facility] [place] [facility] [address] [id number] [place] [address]- 8994 14 Dec, 2014 [facility] [place] [facility] [address] [id number] [place] [address]- 7873 Dec, [facility] [place] [facility] [address] [id number] [place] [address]- 7510 Nov, [facility] [place] [facility] [address] [id number] [place] [id number] Nov, [facility] [place] [facility] [address] [id number] [place] [address]- 4711 Nov, [facility] [place] [facility] [address] [id number] [place] [address]- 6308 Nov, [facility] [address] [id number] [place] [id number] Nov, [facility] [place] [facility] [address] [id number] [place] [address]- 2788 Oct, [facility] [place] [facility] [address] [id number] [place] 9353 Jul, [facility] [place] [facility] [address] [id number] [place] [address]- 1811 Jul, [facility] [place] [facility] [address] [id number] [place] [address]- 3409 Jul, [facility] [place] [facility] [address] [id number] [place] [address]- 1953 Jul, [facility] [place] [facility] [address] [id number] [place] 2809 Jul, [facility] [place] [facility] [address] [id number] [place] [address]- 9805 Jul, [facility] [place] [facility] [address] [id number] [place] 5444 Jul, [facility] [place] [facility] [address] [id number] [place] [address]- 7619 Jul, [facility] [place] [facility] [address] [id number] [place] [address]- 5764 Jul, [facility] [place] [facility] [address] [id number] [place] [address]- 6521 Jul, [facility] [place] [facility] [address] [id number] [place] [address]- 7750 Jun, [facility] [place] [facility] [address] [id number] [place] [address]- 9599 Jun, [facility] [place] [facility] [address] [id number] [place] [address]- 7645 Jun, [facility] [place] [facility] [address] [id number] [place] [address]- 0939 Jun, [facility] [place] [facility] [address] [id number] [place] [address]- 6884 Jun, [facility] [place] [facility] [address] [id number] [place] [address]- 5009 Jun, [facility] [place] [facility] [address] [id number] [place] [address]- 7172 Jun, [facility] [place] [facility] [address] [id number] [place] [address]- 0393 30 May, 2014 [facility] [place] [facility] [address] [id number] [place] [address]- 3753 30 May, 2013 [facility] [place] [facility] [address] [id number] [place] [address]- 4659 12 May, 2014 [facility] [place] [facility] [address] [id number] [place] [address]- 4431 12 May, 2014 [facility] [place] [facility] [address] [id number] [place] [address]- 5456 10 May, 2014 [facility] [place] [facility] [address] [id number] [place] [address]- 3640 May, [facility] [place] [facility] [address] [id number] [place] [address]- 3004 May, [facility] [place] [facility] [address] [id number] [place] [address]- 7163 May, [facility] [place] [facility] [address] [id number] [place] [address]- 3526 Apr, [facility] [place] [facility] [address] [id number] [place] [address]- 4254 Apr, [facility] [place] [facility] [address] [id number] [place] [address]- 6626 Apr, [facility] [place] [facility] [address] [id number] [place] [address]- 6245 Apr, [facility] [place] [facility] [address] [id number] [place] [address]- 4505 Apr, [facility] [place] [facility] [address] [id number] [place] [address]- 3956 Apr, [facility] [place] [facility] [address] [id number] [place] [address]- 8991 Apr, [facility] [place] [facility] [address] [id number] [place] [address]- 4504 Apr, [facility] [place] [facility] [address] [id number] [place] [address]- 6577 Apr, [facility] [place] [facility] [address] [id number] [place] [address]- 1478 Mar, [facility] [place] [facility] [address] [id number] [place] [address]- 1660 Mar, [facility] [place] [facility] [address] [id number] [place] [address]- 3726 Mar, [facility] [place] [facility] [address] [id number] [place] [address]- 3380 Mar, [facility] [place] [facility] [address] [id number] [place] [address]- 0973 14 Mar, 2014 [facility] [address] [id number] [place] [address]- 8266 14 Mar, 2014 [facility] [place] [facility] [address] [id number] [place] [address]- 4542 19 Feb, 2014 [facility] [address] [id number] [place] [address]- 7500 Feb, [facility] [place] [facility] [address] [id number] [place] [address]- 6726 Feb, [facility] [address] [id number] [place] [address]- 0209 January, [facility] [address] [id number] [place] [address]- 5331 January, [facility] [address] [id number] [place] [address]- 0351 January, [facility] [address] [id number] [place] [address]- 3798 January, [facility] [place] [facility] [address] [id number] [place] [address]- 3536 January, [facility] [address] [id number] [place] [address]- 6468 January, [facility] [place] [facility] [address] [id number] [place] [address]- 6577 Dec, [facility] [place] [facility] [address] [id number] [place] [address]- 3849 Dec, [facility] [place] [facility] [address] [id number] [place] [address]- 5110 Dec, [facility] [place] [facility] [address] [id number] [place] [address]- 5443 Dec, [facility] [place] [facility] [address] [id number] [place] [address]- 6674 Nov, [facility] [place] [facility] [address] [id number] [place] [address]- 6920 Nov, [facility] [place] [facility] [address] [id number] [place] [address]- 5872 Oct, [facility] [place] [facility] [address] [id number] [place] [address]- 8278 Oct, [facility] [place] [facility] [address] [id number] [place] [address]- 3297 Sep, [facility] [place] [facility] [address] [id number] [place] [address]- 1234 Sep, [facility] [place] [facility] [address] [id number] [place] [address]- 7836 Aug, [facility] [place] [facility] [address] [id number] [place] [address]- 5737 Aug, [facility] [place] [facility] [address] [id number] [address]- 7135 Aug, [facility] [place] [facility] [address] [id number] [place] [address]- 0677 Jul, [facility] [place] [facility] [address] [id number] [place] [address]- 0105 Jul, [facility] [place] [facility] [address] [id number] [address]- 1426 Jul, [facility] [place] [facility] [address] [id number] [address]- 3124 Jul, [facility] [place] [facility] [address] [id number] [place] [address]- 5290 Jul, [facility] [place] [facility] [address] [id number] [address]- 1722 17 May, 2013 [facility] [place] [facility] [address] [id number] [address]- 9017 11 May, 2013 [facility] [place] [facility] [address] [id number] [place] [address] Apr, [facility] [address] [id number] [place] [address] Apr, [facility] [address] [id number] [place] [address] Mar, [facility] [address] [id number] [place] [address] Mar, [facility] [place] [facility] [address] [id number] [place] [address] Mar, [facility] [address] [id number] [place] [address] Mar, [facility] [address] [id number] [place] [address] Feb, [facility] [address] [id number] [place] [address] Feb, [facility] [address] [id number] [place] [address] Feb, [facility] [address] [id number] [place] [address] Feb, [facility] [address] [id number] [place] [address] Feb, [facility] [address] [id number] [place] [address] January, [facility] [place] [facility] [address] [id number] [place] [address] January, [facility] [place] [facility] [address] [id number] [place] [address] January, [facility] [place] [facility] [address] [id number] [place] [address] January, [facility] [address] [id number] [place] [address] Dec, [facility] [place] [facility] [address] [id number] [place] [address] 24 Dec, 2012 [facility] [address] [id number] [place] [address] 18 Dec, 2012 [facility] [place] [facility] [address] [id number] [place] [address] 10 Dec, 2012 [facility] [place] [facility] [address] [id number] [place] [address] 19 Nov, 2012 [facility] [address] [id number] [place] [address] 05 Nov, 2012 [facility] [place] [facility] [address] [id number] [place] [address] Oct, [facility] [address] [id number] [place] [address] Aug, [facility] [address] [id number] [place] [address] Aug, [facility] [address] [id number] [place] [address] Dec, [facility] [address] [id number] [place] [address] Dec, [facility] [place] [facility] [address] [id number] [place] [address] Dec, [facility] [place] [facility] [address] [id number] [place] [address] 26 Nov, 2011 [facility] [place] [facility] [address] [id number] [place] [address] 15 Nov, 2011 [facility] [place] [facility] [address] [id number] [place] [address] Oct, [facility] [place] [facility] [address] [id number] [place] [address] 07 Oct, 2011 [facility] [place] [facility] [address] [id number] [address] Oct, [facility] [address] [id number] [place] [address] Sep, [facility] [place] [facility] [address] [id number] [place] [address] Sep, [facility] [address] [id number] [place] [address] Sep, [facility] [place] [facility] [address] [id number] [place] [address] 17 Sep, 2011 [facility] [address] [id number] [place] [address] Sep, [facility] [address] [id number] [place] [address] Sep, [facility] [address] [facility] [id number] [place] [address] Sep, [facility] [address] [id number] [place] [address] Sep, [facility] [address] [id number] [place] [address] Jul, [facility] [address] [id number] [place] [address] 15 Jul, 2011 [facility] [address] [address] [id number] [place] [address] 15 Jul, 2011 [facility] [place] [facility] [address] [id number] [place] [address] 14 Nov, 2010 [facility] [place] [facility] [address] [id number] [place] [address] 17 Aug, 2010 [facility] [place] [facility] [address] [id number] [place] [address] 17 Aug, 2010 [facility] [place] [facility] [address] [facility] [id number] [place] [address] 16 Aug, 2010 [facility] [place] [facility] [address] [id number] [place] [address] 15 Aug, 2010 [facility] [address] [id number] [place] [address] 09 Aug, 2010 [facility] [place] [facility] [address] [id number] [place] [address] Jul, [facility] [address] [id number] [place] [address] Jun, [facility] [place] [facility] [address] [id number] [place] [address] Jun, [facility] [address] [id number] [place] [address] Sep, [facility] [place] [facility] [address] [facility] [id number] [place] [address] 28 Aug, 2009 [facility] [place] [facility] [address] [id number] [place] [address] Aug, [facility] [address] [id number] [place] [address] 08 Aug, 2009 [facility] [address] [id number] [place] [address] 14 Jun, 2009 [facility] [address] [facility] [id number] [place] [address] 14 Jun, 2009 [facility] [place] [facility] [address] [id number] [place] [address] 14 May, 2009 [facility] [place] [facility] [address] [id number] [place] [address] 17 Apr, 2009 [facility] [place] [facility] [address] [id number] [place] [address] 16 Mar, 2009 [facility] [place] [facility] [address] [facility] [id number] [place] [address] 14 Jan, 2009 [facility] [place] [facility] [address] [id number] [place] [address] Oct, IMMUNIZATIONS No Known Immunizations SOCIAL HISTORY Never Assessed REASON FOR VISIT Lab (walk-in) PLAN OF CARE VITAL SIGNS MEDICATIONS Unknown Medications RESULTS Name Result Date Reference Range TESTOSTERONE, TOTAL 2018-04-20 TESTOSTERONE, TOTAL, MALES (ADULT), IA [id number] PROCEDURES Procedure Date Ordered Result Body Site ASSAY OF TOTAL TESTOSTERONE Apr 20, 2018 VENIPUNCT, ROUTINE* Apr 20, 2018 INSTRUCTIONS MEDICATIONS ADMINISTERED No Known Medications [...] at age 1 Hospitalization History [facility] for diabetes 09/2011 Hospitalization History [facility] diabetic issues 09/2015 Hospitalization History [facility] Pneumonia 01/2016 Hospitalization History celluitis of the left upper thigh-[facility] 04/2017 Hospitalization History [facility]-inpatient psych 4 day stay 2013 Hospitalization History [facility]- Shaking, unsure of blood sugar level 11/20/2017
--- OUTSIDE RECORDS SUMMARY | 2018-07-05 10:49 | XMS REPORT ---
Author Author BOLIVAR ROBLERO [facility] Address [address] [place] [address] Care Team Providers Care Derrick Follower Name Role Phone BOLIVAR ROBLERO Unavailable PROBLEMS Type Condition ICD9-CM Code [id number] Code Onset Dates Condition Status SNOMED Code Problem Other male erectile dysfunction N52.8 Active 650560229 Problem Diabetes type 2, controlled E11.9 Active 56199241 Problem Obesity, unspecified E66.9 Active 074205411 Problem Gastro-esophageal reflux disease with esophagitis K21.0 Active 674942537 Problem Insomnia, unspecified G47.00 Active 062051141 Problem Anxiety F41.9 Active 26727690 Problem 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 Active 95733843 Problem Hypertriglyceridemia E78.1 Active 075125344 Problem Generalized anxiety disorder F41.1 Active 44251212 Problem Chronic fatigue R53.82 Active 30544130 Problem Type 2 diabetes mellitus 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 E11.9 Active 110049908 Problem BMI 45.0-49.9, adult Z68.42 Active 895549305 Problem Other chronic pain G89.29 Active 56400905 Problem Morbid obesity due to excess calories E66.01 Active 705192627 Problem Type 2 diabetes mellitus with hyperglycemia E11.65 Active 472896336 Problem Hypertension I10 Active 99952194 Problem Diabetes type 2, uncontrolled E11.65 Active 455440828 Problem Mild episode of recurrent major depressive disorder F33.0 Active 638805062 Problem Type 2 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 Active 71067617 Problem Hypogonadism in male E29.1 Active 91014045 Problem Seasonal allergies J30.2 Active 583534994 Problem Controlled type 2 diabetes mellitus without complication, without long -term current use of insulin E11.9 Active 979173863 Problem Diabetic polyneuropathy associated with type 2 diabetes mellitus E11.42 Active 27514532 Problem Polyneuropathy G62.9 Active 18567493 Problem 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 Active 347987631 Problem 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 Active 994717048 Problem Diverticulitis of small intestine without perforation or abscess without bleeding K57.12 Active 09584034 Problem GERD without esophagitis K21.9 Active 103509794 Problem Type 2 diabetes mellitus with hyperglycemia E11.65 Active 054972393 ALLERGIES Substance Reaction Event Type Date Status Zoloft hives adverse reaction Drug Allergy Mar, Active Wellbutrin "out of it" Drug Allergy Mar, Active Clindamycin HCl itching Drug Allergy Mar, Active BuSpar local swelling Drug Allergy Mar, Active ENCOUNTERS Encounter Location Date Diagnosis [facility] [address] [address] Jun, [place] [address] [address]- 0187 May, [facility] [address] 29597- 0177 May, [place] [address] 65058- 8135 May, Uncontrolled type 2 diabetes mellitus with hyperglycemia E11.65 ; BMI 45.0-49.9, adult Z68.42 and Colitis K52.9 [facility] [address] 40443- 8996 May, [facility] [address] 40532- 3647 May, [facility] [address] [address] Apr, Colitis K52.9 ; Abdominal discomfort R10.9 and Anxiety F41.9 [facility] [address] 04211- 4451 Apr, [facility] [address] 70626- 4456 Apr, Colitis K52.9 and BMI 45.0-49.9, adult Z68.42 [place] [address] [place] [id number] [place] [address] 57902- 4470 Apr, Diabetes type 2, uncontrolled E11.65 [place] [address] 80122- 2363 Apr, 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 ; Generalized anxiety disorder F41.1 and BMI 45.0-49.9, adult Z68.42 [place] [address] 21284- 4873 Apr, [place] [address] 39136- 9442 Apr, BMI 45.0-49.9, adult Z68.42 [place] [address] 86035- 0777 Apr, Candidiasis B37.9 ; Pain in right shoulder M25.511 ; Pain in left shoulder M25.512 ; Other chronic pain G89.29 and Morbid obesity due to excess calories E66.01 [place] [address] [place] [id number] [place] [address] 27876- 3953 Apr, Hypogonadism in male E29.1 [facility] [address] [place] [id number] [place] [address] 26658 -7483 Mar, Yeast dermatitis B37.2 and Sensation of foreign body in throat R09.89 [place] [address] [place] [id number] [place] [address] 87513- 3365 Mar, [place] [address] [place] [id number] [place] [address] 38677- 9282 Mar, Hypogonadism in male E29.1 [place] [address] 04532- 7861 Mar, Hypogonadism in male E29.1 [place] [address] [place] [id number] [place] [address] 71801- 2062 Mar, [facility] [address] 55759- 2078 Mar, Diabetes type 2, uncontrolled E11.65 and Hypogonadism in male E29.1 [facility] [address] [place] [id number] [place] [address] 29829- 8864 Mar, [facility] [address] [place] [id number] [place] [address] 09088- 7042 Feb, Diabetes type 2, controlled E11.9 ; Myalgia M79.1 and BMI 45.0-49.9, adult Z68.42 [facility] [address] [place] [id number] [place] [address] 95882 -5518 Feb, Hematuria, unspecified type R31.9 ; Side pain R10.9 and Rash R21 [place] [address] [place] [id number] [place] [address] 52794- 2705 January, [place] [address] [place] [id number] [place] [address] 52766- 9979 January, [facility] [address] [place] [id number] [place] [address] 34348- 1551 January, [facility] [address] [place] [id number] [place] [address] 37578 -3424 January, Seasonal allergies J30.2 and BMI 45.0-49.9, adult Z68.42 [place] [address] [place] [id number] [place] [address] 61546- 1983 January, Chronic fatigue R53.82 ; Mild episode of recurrent major depressive disorder F33.0 and Polyneuropathy G62.9 [place] [address] [place] [id number] [place] [address] 07770- 5869 January, Chronic fatigue R53.82 ; BMI 45.0-49.9, adult Z68.42 and Anxiety F41.9 [place] [address] [place] [id number] [place] [address] 97016- 9000 January, Generalized anxiety disorder F41.1 [place] [address] [place] [id number] [place] [address] 14036- 3767 Dec, 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 ; Generalized anxiety disorder F41.1 ; High risk medication use Z79.899 and BMI 45.0-49.9, adult Z68.42 [facility] [address] [place] [address] 88220- 6157 Dec, [facility] [address] [place] [address] [id number] Dec, Encounter for dental examination Z01.20 [facility] [address] [place] [id number] [place] [address] 58881- 1573 Dec, Mild episode of recurrent major depressive disorder F33.0 ; Type 2 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 and 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 [place] [address] [place] [id number] [place] [address] 60483- 8968 Nov, [place] [address] [place] [id number] [place] [address] 58883- 0363 Nov, BMI 45.0-49.9, adult Z68.42 ; 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 and Generalized anxiety disorder F41.1 [place] [address] [place] [address] 46366- 9316 Nov, Type 2 diabetes mellitus 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 E11.9 and 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 [facility] [address] [place] [address] [id number] Oct, Dental examination Z01.20 and Dental caries K02.9 [facility] [address] [place] [address] 58680- 3757 Oct, [place] [address] [place] [id number] [place] [address] 94828- 6896 Oct, BMI 45.0-49.9, adult Z68.42 ; 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 and Generalized anxiety disorder F41.1 [facility] [address] [place] [address] 80726- 7692 Oct, [facility] [address] [address]- 7707 Oct, [facility] [address] [place] [id number] [place] [address] 50654- 5914 Oct, Hypertriglyceridemia E78.1 [facility] [address] [place] [id number] [place] [address] 81805- 6927 Oct, Hypertriglyceridemia E78.1 [facility] [address] [place] [address] [address] 3470 Sep, Controlled type 2 diabetes mellitus without complication, without long-term current use of insulin E11.9 [facility] [address] [place] [address] 77984- 3097 Sep, [facility] [address] [place] [id number] [place] [address] 08565- 2134 Sep, Controlled type 2 diabetes mellitus without complication, without long-term current use of insulin E11.9 [facility] [address] [address]- 5719 Sep, [facility] [address] [place] [id number] [place] [address] 51679- 9061 Sep, [facility] [address], [place] [address]- 1624 Sep, BMI 45.0-49.9, adult Z68.42 ; Diabetic polyneuropathy associated with type 2 diabetes mellitus E11.42 and Chronic fatigue R53.82 [facility] [address], [place] [address]- 0053 Sep, [facility] [address] [place] [id number] [place] [address] 24847- 7586 Sep, Hypertriglyceridemia E78.1 [facility] [address], [place] [address]- 7915 Aug, [facility] [address] [place] [id number] [place] [address] 68268- 5671 Aug, Generalized anxiety disorder F41.1 [place] [address] [place] [id number] [place] [address] 91805- 3585 Aug, [place] [address] [place] [id number] [place] [address] 41639- 3722 Aug, Hypertriglyceridemia E78.1 [place] [address] [place] [id number] [place] [address] 49900- 8468 Jul, [place] [address] [place] [id number] [place] [address] 90613- 4501 Jul, [place] [address] [place] [id number] [place] [address] 83987- 2678 Jul, Generalized anxiety disorder F41.1 ; 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 ; BMI 45.0-49.9, adult Z68.42 and Patient's noncompliance with other medical treatment and regimen Z91.19 [place] [address] [place] [id number] [place] [address] 65637- 8056 Jul, Diabetes type 2, uncontrolled E11.65 ; Diabetic polyneuropathy associated with type 2 diabetes mellitus E11.42 ; Abdominal pain , right upper quadrant R10.11 and Low back pain radiating to left lower extremity M54.5 [place] [address] [place] [id number] [place] [address] 87759- 6268 Jul, Generalized anxiety disorder F41.1 [place] [address] [place] [id number] [place] [address] 51808- 5698 Jul, [place] [address] [place] [id number] [place] [address] 60904- 9004 Jul, Hypertriglyceridemia E78.1 [place] [address] [place] [id number] [place] [address] 42613- 5245 Jul, Controlled type 2 diabetes mellitus without complication, without long-term current use of insulin E11.9 [place] [address] [place] [id number] [place] [address] 29957- 0240 Jun, [facility] [address] [place] [address] 61328- 6835 Jun, Hypertriglyceridemia E78.1 [facility] [address] [place] [id number] [place], [place] [address]- 7617 04 Jun, 2017 Controlled type 2 diabetes mellitus without complication, without long-term current use of insulin E11.9 [facility] [address] 25486- 2163 Jun, Generalized anxiety disorder F41.1 [facility] [address] [place] [id number] [place] [address] 56504- 5566 Jun, Candidiasis B37.9 [facility] [address] 409607- 6930 19 May, 2017 [facility] [address] 89979- 0508 18 May, 2017 Controlled type 2 diabetes mellitus without complication, without long-term current use of insulin E11.9 [facility] [address] [place] [id number] [place] [address] 44795- 2417 14 May, 2017 Hypertriglyceridemia E78.1 [facility] [address] [place] [id number] [place] [address] 03658- 2504 14 May, 2017 Hypertriglyceridemia E78.1 [facility] [address] [place] [id number] [place] [address] 60365- 3424 14 May, 2017 Hypertriglyceridemia E78.1 and Hypotestosteronemia E34.9 [facility] [address] [place] [id number] [place] [address] 87728- 0780 14 May, 2017 Generalized anxiety disorder F41.1 [facility] [address] [place] [id number] [place] [address] 66602- 6180 05 May, 2017 [facility] [address] [place] [id number] [place] [address] 44741 -4885 03 May, 2017 Abscess and cellulitis L03.90 [facility] [address] [place] [address] [id number] Apr, [facility] [address] [place] [address] 55583- 0469 Apr, [facility] [address] [place] [id number] [place] [address] 41834- 8089 Apr, Dermatofibroma of back D23.5 [facility] [address] [place] [id number] [place] [address] 00995 -4318 Apr, Muscle strain of left thigh, initial encounter S76.912A [place] [address] [place] [address] 44293- 9620 Apr, [place] [address] [place] [id number] [place] [address] 99446- 1831 Apr, Generalized anxiety disorder F41.1 [place] [address] [place] [id number] [place] [address] 21515- 0341 Apr, Polyneuropathy G62.9 [place] [address] [place] [address] 89951- 1684 Apr, GERD without esophagitis K21.9 [place] [address] [place] [address] 33007- 4393 Apr, Generalized anxiety disorder F41.1 ; Diastasis recti M62.08 and Controlled type 2 diabetes mellitus without complication, without long-term current use of insulin E11.9 [place] [address] [place] [address] 13236- 9779 Apr, Generalized anxiety disorder F41.1 ; 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 and Controlled type 2 diabetes mellitus without complication, without long-term current use of insulin E11.9 [place] [address] [place] [address] 11466- 2677 Mar, Generalized anxiety disorder F41.1 ; Diastasis recti M62.08 and Controlled type 2 diabetes mellitus without complication, without long-term current use of insulin E11.9 [place] [address] [place] [address] 26604- 0035 Mar, Controlled type 2 diabetes mellitus without complication, without long-term current use of insulin E11.9 [facility] [address] [place] [address] 58150- 4461 Mar, Generalized anxiety disorder F41.1 [facility] [address] [place] [address] 25396- 5329 Mar, Generalized anxiety disorder F41.1 [facility] [address] [place] [id number] [place] [address] 23833- 9419 Mar, Generalized anxiety disorder F41.1 [facility] [address] [place] [id number] [place] [address] 43452- 6251 Mar, Generalized anxiety disorder F41.1 [place] [address] [place] [address] 68729- 9540 Feb, Controlled type 2 diabetes mellitus without complication, without long-term current use of insulin E11.9 [place] [address] [place] [address] 38263- 1594 Feb, Controlled type 2 diabetes mellitus without complication, without long-term current use of insulin E11.9 and Tinea cruris B35.6 [place] [address] [place] [address] 37051- 9686 Feb, Diabetes type 2, controlled E11.9 [facility] [address] [place] [address] [id number] Feb, Dental examination Z01.20 [facility] [address] [place] [address] 07024- 8290 Feb, Dental examination Z01.20 [facility] [address] [place] [id number] [place] [address] 60961- 3592 Feb, Generalized anxiety disorder F41.1 [facility] [address] [place] [address] 51765 -1767 Feb, Muscle spasm M62.838 and Diabetes type 2, controlled E11.9 [facility] [address], [place] [address]- 1566 Feb, Type 2 diabetes mellitus with hyperglycemia E11.65 [facility] [address] [place] [address] [id number] Feb, Dental examination Z01.20 [facility] [address] [place] [id number] [place] [address] [id number] Feb, Encounter for dental examination Z01.20 [facility] [address] [place] [id number] [place] [address] 73644- 9969 Feb, Diabetes type 2, controlled E11.9 [facility] [address] [place] [id number] [place] [address] 51258- 1206 Feb, Type 2 diabetes mellitus with hyperglycemia E11.65 [facility] [address] [place] [id number] [place] [address] 73788- 1085 Feb, [facility] [address] [place] [id number] [place] [address] 69393- 6175 Feb, Controlled type 2 diabetes mellitus without complication, without long-term current use of insulin E11.9 [facility] [address] [place] [address] 54343- 8655 January, Candidiasis B37.9 [facility] [address] [place] [id number] [place] [address] 56454- 4905 January, Type 2 diabetes mellitus with hyperglycemia E11.65 ; Hypertension I10 and Anxiety F41.9 [facility] [address] [place] [address] 06161- 7111 January, Type 2 diabetes mellitus with hyperglycemia E11.65 [facility] [address] [place] [id number] [place] [address] [id number]- 4286 January, Controlled type 2 diabetes mellitus without complication, without long-term current use of insulin E11.9 [facility] [address] [place] [address] 21535- 2941 January, Generalized anxiety disorder F41.1 ; 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 ; Foot callus L84 and Controlled type 2 diabetes mellitus without complication, without long-term current use of insulin E11.9 [facility] [address] [place] [id number] [place] [address] 63409- 3940 Dec, [facility] [address] [place] [id number] [place] [address] 74358- 2313 Dec, [place] [address] 77244- 7306 Dec, Foot callus L84 and Rash R21 [place] [address] 41353- 3564 Dec, Controlled type 2 diabetes mellitus without complication, without long-term current use of insulin E11.9 [facility] [address] [place] [id number] [place] [address] 92545- 1204 Nov, [facility] [address] 08283 -2676 Nov, Sore throat J02.9 and Strep pharyngitis J02.0 [facility] [address] 17758- 2393 Nov, Generalized anxiety disorder F41.1 [facility] [address] [place] [id number] [place] [address] 03635- 9788 Nov, [place] [address] 07629- 8638 Nov, [facility] [address] [place] [id number] [place] [address] 83338- 7403 Nov, Type 2 diabetes mellitus with hyperglycemia E11.65 [place] [address] 64467- 2613 Nov, Diabetes type 2, uncontrolled E11.65 and Localized edema R60.0 [facility] [address] 90148- 8160 Nov, Controlled type 2 diabetes mellitus without complication, without long-term current use of insulin E11.9 [place] [address] [place] [id number] [place] [address] 80856- 9914 14 Oct, 2016 Generalized anxiety disorder F41.1 and 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 [facility] [address] [place] [id number] [place] [address] 29337- 8894 Oct, [facility] [address] 66262- 8402 Oct, Type 2 diabetes mellitus with hyperglycemia E11.65 [place] [address] 39538- 8940 Oct, Type 2 diabetes mellitus with hyperglycemia E11.65 and senior care 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.4 [place] [address] [place] [id number] [place] [address] 43700- 3021 Oct, [place] [address] [place] [id number] [place] [address] 49352- 8742 Oct, [facility] [address] [id number] Oct, Encounter for dental examination Z01.20 [place] [address] [place] [id number] [place] [address] 70777- 3275 Sep, [facility] [address] [address] [id number] [place] [address] 30360- 1090 Sep, Diabetes type 2, controlled E11.9 [facility] [address] [place] [address] 58698 -3904 Sep, Abdominal pain R10.9 and Diverticulitis of small intestine without perforation or abscess without bleeding K57.12 [facility] [address] [id number] [place] [address] 25267- 2888 Sep, [facility] [address] [id number] [place] [address] 78598- 1024 Sep, Diabetes type 2, controlled E11.9 [place] [address] [place] [address] [id number] [place] [address] 20120- 0797 Sep, Controlled type 2 diabetes mellitus without complication, without long-term current use of insulin E11.9 [place] [address] [place] [address] [id number] [place] [address] 94549- 8809 Sep, Type 2 diabetes mellitus 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 E11.9 and senior care 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.4 [place] [address] 20660 -8650 Aug, Lower abdominal pain R10.30 ; GERD without esophagitis K21.9 and Candidiasis of skin B37.[address] 96505- 3745 Aug, Controlled type 2 diabetes mellitus without complication, without long-term current use of insulin E11.9 and Diabetic polyneuropathy associated with type 2 diabetes mellitus E11.42 [place] [address] 74013 -8628 Jul, Kelly infection of genital region B37.49 and Diabetes type 2, controlled E11.[address] 55200- 1264 Jul, Controlled type 2 diabetes mellitus without complication, without long-term current use of insulin E11.9 ; 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 and Acute pharyngitis due to other specified organisms J02.8 [place] [address] [address] [id number] [place] [address] 60920 -7546 Jul, Acute upper respiratory infection, unspecified J06.9 and Other viral agents as the cause of diseases classified elsewhere B97.[address] 60075- 2729 Jun, Generalized anxiety disorder F41.[address] 09219- 6940 Jun, [place] [address] 31539- 2449 Jun, Diabetes type 2, controlled E11.9 and Polyneuropathy G62.9 [facility] [id number] [place] [address] 10438- 6220 May, [facility] [id number] [place] [address] 08966- 9068 May, Generalized anxiety disorder F41.1 [facility] [id number] [place] [address] 86804- 3526 15 May, 2016 Polyneuropathy G62.9 [facility] [id number] [place] [address] 96923- 3022 May, [facility] [id number] [place] [address] 51863- 5510 Apr, Anxiety disorder, unspecified F41.9 [place] [id number] [place] [address] 38200- 0220 Mar, Abdominal pain, unspecified abdominal location R10.9 ; Type 2 diabetes mellitus with hyperglycemia E11.65 ; senior care 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.4 and Diabetic polyneuropathy associated with type 2 diabetes mellitus E11.42 [place] [place] [address] [place] [address] 08845- 3833 Mar, Generalized anxiety disorder F41.1 [facility] [address] [place] [address] 53408- 3434 Mar, Generalized abdominal pain R10.84 and Other male erectile dysfunction N52.8 [facility] [address] [place] [address] 54130 -2610 Mar, [facility] [id number] [place] [address] 62091- 3883 Feb, Generalized anxiety disorder F41.1 [facility] [address] [place] [address] 86833- 9883 Feb, Abdominal cramping R10.9 ; Acute bilateral low back pain without sciatica M54.5 and Malaise R53.81 [facility] [id number] [place] [address] 66714 -5739 Feb, Candidiasis B37.9 and Costochondritis M94.0 [facility] [id number] [place] [address] 33499 -7977 Feb, Allergic rhinitis, unspecified allergic rhinitis type J30.9 [facility] [address] 87381- 8561 Feb, Generalized anxiety disorder F41.1 [facility] [address] 57471- 3917 Feb, [place] [address] 82298- 3797 Feb, Major depressive disorder, recurrent, moderate F33.1 [facility] [place] [address] 90436- 8678 Feb, Generalized anxiety disorder F41.1 [facility] [address] 27916- 0669 January, Unspecified infectious disease B99.9 [facility] [address] [id number] January, Dental examination Z01.20 [facility] [id number] [place] [address] 09488- 4083 January, [facility] [address] 96900- 8947 January, Diabetes type 2, uncontrolled E11.65 [facility] IN [facility] [address] 24495 -8745 January, Wheezing R06.2 and History of pneumonia Z87.01 [facility] [address] 38921- 6940 January, [facility] [address] 50998- 2456 January, Depression, major, recurrent, moderate F33.1 [facility] [address] [address] 7122 January, [facility] [address] 3253 January, Depression, major, recurrent, moderate F33.1 [facility] [id number] [place] [address] 81776- 5210 January, [facility] [address] [place] [address] 72197- 1755 Dec, Depression, major, recurrent, moderate F33.1 [facility] [address] [address] 4728 Dec, Dental examination Z01.20 [facility] [address] [place] [address] [id number] Dec, Dental examination Z01.20 [facility] [address] [place] [address] 79681- 3951 Dec, Generalized anxiety disorder F41.1 [facility] [id number] [place] [address] 61877- 0269 Dec, Generalized anxiety disorder F41.1 [facility] [address], [place] [address]- 9420 Nov, [facility] [address] [place] [address] 52727984- 3829 Nov, [facility] [address] [place] [address] 05945- 3229 Nov, Generalized anxiety disorder F41.1 [facility] [address] [place] [address] [id number] Nov, Dental examination Z01.20 [facility] [address], [place] [address]- 3776 Nov, [facility] [id number] [place] [address] 18721- 1703 Nov, Generalized anxiety disorder F41.1 and 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 [facility] [address] 77102- 0174 Nov, Depression, major, recurrent, moderate F33.1 [facility] [address] 42486- 2913 Nov, [facility] [address] 50147- 1742 Nov, Diabetes type 2, uncontrolled E11.65 and Hypertension I10 [facility] [address] [id number] Nov, Dental examination Z01.20 [place] [address] 95595- 8132 Nov, [facility] [address] 93321- 0575 Nov, Depression, major, recurrent, moderate F33.1 [facility] [address] 35204 -5091 Nov, Penile abrasion S30.812A [facility] [id number] [place] [address] 88938- 9038 Oct, Generalized anxiety disorder F41.1 [facility] [address] 66061- 0278 Oct, Depression, major, recurrent, moderate F33.1 [place] [address] 84707- 9702 Oct, Diabetes type 2, controlled E11.9 and Malaise R53.81 [facility] [id number] [place] [address] 52246- 2731 Oct, [facility] [address] 95796- 1902 16 Oct, 2015 [facility] [address] [place] [address] 52362- 1415 Oct, [facility] [id number] [place] [address] 73246- 0792 Oct, Depression, major, recurrent, moderate F33.1 [facility] [id number] [place] [address] 77977- 3389 Oct, Generalized anxiety disorder F41.1 and Autism spectrum F84.0 [facility] [id number] [place] [address] 08845- 8531 Oct, [facility] [id number] [place] [address] 06820- 8115 Oct, Major depressive disorder, recurrent, moderate F33.1 [facility] [id number] [place] [address] 70600- 9955 Oct, [facility] [id number] [place] [address] 05562- 9807 Oct, [facility] [id number] [place] [address] 56019- 2974 Oct, Generalized anxiety disorder F41.1 [facility] [id number] [place] [address] 26212- 7926 Oct, [facility] [id number] [place] [address] 63588- 7441 Oct, Back muscle spasm M62.830 [facility] [address] [place] [address] 75163- 4048 Oct, Major depressive disorder, recurrent, moderate F33.1 [facility] [address] [place] [address] 24147 -5698 Sep, Back muscle spasm M62.830 ; Allergic rhinitis J30.9 and Person with feared health complaint in whom no diagnosis is made Z71.1 [facility] [id number] [place] [address] 06508- 9574 22 Sep, 2015 Generalized anxiety disorder F41.1 [facility] [id number] [place] [address] 73895 -7450 15 Sep, 2015 [place] [id number] [place] [address] 32303- 1887 Sep, [place] [address] 75772- 7354 13 Sep, 2015 Mood disorder F39 ; Diabetes type 2, controlled E11.9 ; Morbid obesity due to excess calories E66.01 and Edema, unspecified type R60.9 [facility] [id number] [place] [address] 28445- 9101 13 Sep, 2015 Generalized anxiety disorder F41.1 [place] [address] 76729- 4360 11 Sep, 2015 [facility] [place] [id number] [place] [address] 23752- 9221 07 Sep, 2015 Adjustment disorder with mixed anxiety and depressed mood F43.23 and Depression F32.9 [facility] [id number] [place] [address] 99076- 1658 06 Sep, 2015 Generalized anxiety disorder F41.1 [place] [id number] [place] [address] 86446- 8263 05 Sep, 2015 Generalized anxiety disorder 300.02 and Autism spectrum disorder F84.[address] [id number] [id number] Aug, Encounter for dental examination Z01.20 [facility] [id number] [place] [address] 28166- 9847 16 Aug, 2015 [facility] [id number] [place] [address] 64738 -5922 Jul, Candidiasis B37.9 [place] [address] [place] [address]- 4032 Jul, [address] [id number] [id number] Jul, Encounter for dental examination Z01.20 [facility] [address] [place] [address] 20313- 4271 Jul, [facility] [id number] [place] [address] 00183- 5646 Jun, [facility] [id number] [place] [address] 25682- 2040 30 May, 2015 Diabetes type 2, controlled 250.00 and Neuropathy 355.9 [place] [id number] [place] [address] 65503- 3566 May, [place] [id number] [place] [address] 73770- 6901 Apr, Generalized anxiety disorder 300.02 and Autism spectrum disorder 299.00 [place] [id number] [place] [address] 11103- 2133 Apr, Abrasion, foot 917.0 ; Chest pain 786.50 and Back pain 724.5 [address] [place] [address] 16233- 6992 Apr, Generalized anxiety disorder 300.02 [address] [place] [address] 62666- 5614 Feb, Anxiety state, unspecified 300.[address] [place] [address] 93371- 3851 Feb, Diabetes mellitus without mention of complication, type II or unspecified type, not stated as uncontrolled 250.00 ; Generalized anxiety disorder 300.02 ; Morbid obesity 278.01 ; Benign essential hypertension 401.1 ; Chronic pain 338.29 ; Screen for STD (sexually transmitted disease) V74.5 ; Dysuria 788.1 and Kelly infection of genital region 112.[address] [place] [address] 02177- 2546 Feb, [facility] [address] [facility] [id number] [address] 2546 January, Generalized anxiety disorder 300.02 and Autism spectrum disorder 299.00 [facility] [address] [id number] [place] [address]- 2546 Dec, [facility] [address] [facility] [id number] [place] [address]- 2546 Dec, [facility] [address] [facility] [id number] [place] [address]- 2546 Dec, [facility] [id number] [place] [address] 47643 2546 Nov, [facility] [address] [id number] Nov, [facility] [address] [place] [address]- 2546 Nov, [facility] [id number], [place] [address]- 1856 Nov, [facility] [address] [id number] Nov, [facility] [id number], [place] [address]- 2546 Oct, [facility] [address], [place] [address]- 2546 Jul, [facility] [id number], [place] [address] 2546 Jul, [facility] [place] [facility] [address] [id number] [address] 2546 Jul, [facility] [address] [id number] [address]- 2546 Jul, [facility] [address], [place] [address]- 2677 Jul, [facility] [place] [facility] [address] [id number] [place] [address]- 6871 Jul, [facility] [place] [facility] [address] [id number] [place] [address]- 3424 Jul, [facility] [place] [facility] [address] [id number] [place] [address]- 9170 Jul, [facility] [place] [facility] [address] [id number] [place] [address]- 0201 Jul, [facility] [place] [facility] [address] [id number] [place] [address]- 8402 Jul, [facility] [place] [facility] [address] [id number] [place] [address]- 7991 Jun, [facility] [place] [facility] [address] [id number] [place] [address]- 9985 Jun, [facility] [place] [facility] [address] [id number] [place] [address]- 5847 Jun, [facility] [place] [facility] [address] [id number] [place] [address]- 9385 Jun, [facility] [place] [facility] [address] [id number] [place] [address]- 4872 Jun, [facility] [place] [facility] [address] [id number] [place] [address]- 9783 Jun, [facility] [place] [facility] [address] [id number], [place] [address]- 8464 Jun, [facility] [place] [facility] [address] [id number] [place] [address]- 6761 May, [facility] [place] [facility] [address] [id number] [place] [address]- 7729 30 May, 2014 [facility] [place] [facility] [address] [id number] [place] [address]- 7298 May, [facility] [place] [facility] [address] [id number] [place] [address]- 6000 May, [facility] [place] [facility] [address] [id number] [place] [address]- 4197 May, [facility] [place] [facility] [address] [id number] [place] [address]- 3678 May, [facility] [place] [facility] [address] [id number] [place] [address]- 5381 May, [facility] [place] [facility] [address] [id number] [place] [address]- 4796 May, [facility] [place] [facility] [address] [id number] [place] [address]- 7666 Apr, [facility] [place] [facility] [address] [id number] [place] [address]- 0730 Apr, [facility] [place] [facility] [address] [id number] [place] [address]- 5968 Apr, [facility] [place] [facility] [address] [id number] [place] [address]- 2476 Apr, [facility] [place] [facility] [address] [id number] [place] [address]- 5208 Apr, [facility] [place] [facility] [address] [id number] [place] [address]- 3981 Apr, [facility] [place] [facility] [address] [id number] [place] [address]- 1020 Apr, [facility] [place] [facility] [address] [id number] [place] [address]- 1963 Apr, [facility] [place] [facility] [address] [id number] [place] [address]- 9684 Apr, [facility] [place] [facility] [address] [id number] [place] [address]- 8900 Mar, [facility] [place] [facility] [address] [id number] [place] [address]- 0718 Mar, [facility] [place] [facility] [address] [id number] [place] [address]- 1970 14 Mar, 2014 [facility] [place] [facility] [address] [id number] [place] [address]- 4753 14 Mar, 2014 [facility] [place] [facility] [address] [id number] [place] [address]- 9848 Mar, [facility] [place] [facility] [address] [id number] [place] [address]- 1320 Mar, [facility] [place] [facility] [address] [id number] [place] [address]- 0639 Feb, [facility] [place] [facility] [address] [id number] [place] [address]- 2959 Feb, [facility] [place] [facility] [address] [id number] [place] [address]- 8212 Feb, [facility] [place] [facility] [address] [id number] [place] [address]- 5556 January, [facility] [place] [facility] [address] [id number] [place] [address]- 2025 January, [facility] [place] [facility] [address] [id number] [place] [address]- 8045 January, [facility] [place] [facility] [address] [id number] [place] [address]- 1926 January, [facility] [place] [facility] [address] [id number] [place] [address]- 1312 January, [facility] [place] [facility] [address] [id number] [place] [address]- 5277 January, [facility] [place] [facility] [address] [id number] [place] [address]- 6872 Dec, [facility] [place] [facility] [address] [id number] [place] [address]- 4154 Dec, [facility] [place] [facility] [address] [id number] [place] [address]- 5396 Dec, [facility] [place] [facility] [address] [id number] [place] [address]- 6514 Dec, [facility] [place] [facility] [address] [id number] [place] [address]- 2827 Nov, [facility] [place] [facility] [address] [id number] [place] [address]- 0242 Nov, [facility] [place] [facility] [address] [id number] [place] [address]- 1146 Oct, [facility] [place] [facility] [address] [id number] [place] [address]- 0614 Oct, [facility] [place] [facility] [address] [id number] [place] [address]- 0120 Sep, [facility] [place] [facility] [address] [id number] [place] [address]- 9690 Sep, [facility] [place] [facility] [address] [id number] [place] [address]- 5409 Aug, [facility] [place] [facility] [address] [id number] [place] [address]- 8554 Aug, [facility] [place] [facility] [address] [id number] [place] [address]- 6943 Aug, [facility] [place] [facility] [address] [id number], [place] [address]- 1586 Jul, [facility] [place] [facility] [address] [id number], [place] [address]- 6871 Jul, [facility] [place] [facility] [address] [id number] [place] [address]- 5582 Jul, [facility] [place] [facility] [address] [id number] [place] [address]- 2258 Jul, [facility] [place] [facility] [address] [id number] [place] [address]- 2186 Jul, [facility] [place] [facility] [address] [id number] [place] [address]- 2546 May, [facility] [address] [id number] [place] [address]- 0986 May, [facility] [address] [id number] [place] [address]- 2546 Apr, [facility] [address] [id number] [place] [address]- 4976 Apr, [facility] [address] [id number] [place] [address]- 7533 Mar, [facility] [address] [id number] [place] [address]- 2410 Mar, [facility] [address] [id number] [place] [address]- 5092 Mar, [facility] [address] [id number] [place] [address]- 6299 Mar, [facility] [address] [id number] [place] [address]- 7595 Feb, [facility] [address] [id number] [place] [address]- 3622 Feb, [facility] [address] [id number] [place] [address]- 9211 Feb, [facility] [address] [id number] [place] [address]- 4714 Feb, [facility] [address] [id number] [place] [address]- 2546 Feb, [facility] [place] [facility] [address] [id number] [place] [address]- 8347 January, [facility] [place] [facility] [address] [id number] [place] [address]- 2546 January, [facility] [address] [id number] [place] [address]- 2156 January, [facility] [address] [id number] [place] [address] January, [facility] [address] [id number] [place] [address] Dec, [facility] [address] [id number] [place] [address] Dec, [facility] [address] [id number] [place] [address] Dec, [facility] [address] [id number] [place] [address] Dec, [facility] [address] [id number] [place] [address] Nov, [facility] [address] [id number] [place] [address] Nov, [facility] [address] [id number] [place] [address] Oct, [facility] [address] [id number] [place] [address] Aug, [facility] [address] [id number] [place] [address] Aug, [facility] [address] [id number] [place] [address] Dec, [facility] [place] [facility] [address] [id number] [place] [address] Dec, [facility] [place] [facility] [address] [id number] [place] [address] Dec, [facility] [place] [facility] [address] [id number] [place] [address] Nov, [facility] [place] [facility] [address] [id number] [place] [address] 15 Nov, 2011 [facility] [place] [facility] [address] [id number] [place] [address] Oct, [facility] [address] [id number] [place] [address] Oct, [facility] [place] [facility] [address] [id number] [place] [address] Oct, [facility] [place] [facility] [address] [id number] [place] [address] Sep, [facility] [place] [facility] [address] [id number] [place] [address] Sep, [facility] [place] [facility] [address] [id number] [place] [address] Sep, [facility] [place] [facility] [address] [id number] [place] [address] Sep, [facility] [address] [id number] [place] [address] Sep, [facility] [place] [facility] [address] [id number] [place] [address] Sep, [facility] [place] [facility] [address] [id number] [place] [address] Sep, [facility] [address] [id number] [place] [address] Sep, [facility] [place] [facility] [address] [id number] [place] [address] Jul, [facility] [place] [facility] [address] [id number] [place] [address] 15 Jul, 2011 [facility] [place] [facility] [address] [id number] [place] [address] Jul, [facility] [place] [facility] [address] [id number] [place] [address] Nov, [facility] [place] [facility] [address] [id number] [place] [address] Aug, [facility] [place] [facility] [address] [id number] [place] [address] 17 Aug, 2010 [facility] [address] [id number] [place] [address] 16 Aug, 2010 [facility] [address] [id number] [place] [address] 15 Aug, 2010 [facility] [address] [id number] [place] [address] 09 Aug, 2010 [facility] [address] [id number] [place] [address] Jul, [facility] [address] [id number] [place] [address] Jun, [facility] [facility] [address] [id number] [place] [id number] Jun, [facility] [address] [id number] [place] [address] Sep, [facility] [address] [id number] [place] [address] 28 Aug, 2009 [facility] [address] [id number] [place] [address] Aug, [facility] [address] [id number] [place] [address] 08 Aug, 2009 [facility] [place] [facility] [address] [id number], [place] [address] 14 Jun, 2009 [facility] [place] [facility] [address] [id number] [place] [address] 14 Jun, 2009 [facility] [place] [facility] [address] [id number] [place] [address] 14 May, 2009 [facility] [place] [facility] [address] [id number] [place] [address] 17 Apr, 2009 [facility] [place] [facility] [address] [id number] [place] [address] Mar, [facility] [address] [facility] [id number] [place] [address] January, [facility] [address] [facility] [id number], [place] [address] Oct, IMMUNIZATIONS No Known Immunizations SOCIAL HISTORY Never Assessed REASON FOR VISIT yeast infection in groin JStrasserRN, Sinus pressure, ear pain and "lump in throat" x2-3 weeks JStrasserRN PLAN OF CARE Activity Details Follow Up prn Reason: VITAL SIGNS Height 70 in 2018-04-18 Weight 340.8 lbs 2018-04-18 Temperature 97.0 degrees Fahrenheit 2018-04-18 Heart Rate 88 bpm 2018-04-18 Respiratory Rate 22 2018-04-18 BMI 48.89 kg/m2 2018-04-18 Blood pressure systolic 140 mmHg 2018-04-18 Blood pressure diastolic 100 mmHg 2018-04-18 MEDICATIONS Medication Instructions Dosage Frequency Start Date End Date Duration Status Amitriptyline HCl 50 mg Orally Once a day 1 tablet 24h Nov, Active Lancets - test blood sugar 12h January, 25 days Active Neurontin 800 MG Orally Three times a day 1.5 tablets 8h Oct, 30 day(s) Active Test strips test blood sugar 12h January, 25 days Active Omeprazole 40 mg Orally Once a day 1 capsule 24h Apr, Active MetFORMIN HCl ER (MOD) 500 mg Orally 2 times a day 2 tablets 12h Active Meloxicam 7.5 MG Orally 2 times a day 1 tablet 12h Feb, 30 day( s) Active Propranolol HCl 40 mg Orally Twice a day 1 tablet 12h January, Active Lisinopril 20 mg Orally Once a day 1 tablet 24h Active IBU 800 MG TAKE ONE TABLET BY MOUTH THREE TIMES DAILY 33 Active Fish Oil 1000 MG Orally twice a day 1 capsule 12h Active [id number] Active Cinnamon 500 mg Orally Once a day 2 capsules 24h Active Pen Lecompte 32G X 4 MM use with insulin pens for injection Feb, 30 days Active Tresiba FlexTouch 200 UNIT/ML DX- E11.65 at bedtime Inject 160 units Mar, Active Diflucan 200 MG Orally every 72 hours 1 tablet 3 days Active Prozac 40 MG Orally Once a day 1 capsule 24h Oct, Active Levemir FlexTouch 100 UNIT/ML DX- E11.9 2 times a day 80 units 12h Feb, Active Cetirizine HCl 10 MG Orally Once a day 1 tablet 24h 30 day(s) Active Actos 45 MG Orally Once a day 1 tablet 24h Nov, 30 day(s) Active Glucometer test blood sugar 12h January, lifetime Active NovoLog Flexpen 100 UNIT/ML Subcutaneous 3 times a day 60 u 8h Feb, Active One Touch/One Touch II Starter Active HydrOXYzine HCl 10 MG Orally three times a day as needed 1 tablet Nov 30 days Active Depo-Testosterone 100 MG/ML Intramuscular once [...] Hospitalization History celluitis of the left upper thigh-[facility] 04/2017 Hospitalization History [facility]-inpatient psych 4 day stay 2013 Hospitalization History [facility]- Shaking, unsure of blood sugar level 11/20/2017
--- OUTSIDE RECORDS SUMMARY | 2018-07-05 10:50 | XMS REPORT ---
Author Author NERISSA MARTINEZ [facility] Address [address] [place] [address] Care Team Providers Care Lead Database Developer Name Role Phone NERISSA MARTINEZ Unavailable PROBLEMS Type Condition ICD9-CM Code DSS31-VG Code Onset Dates Condition Status SNOMED Code Problem Other male erectile dysfunction N52.8 Active 647606360 Problem Diabetes type 2, controlled E11.9 Active 89496310 Problem Obesity, unspecified E66.9 Active 963568531 Problem Gastro-esophageal reflux disease with esophagitis K21.0 Active 587026542 Problem Insomnia, unspecified G47.00 Active 652964102 Problem Anxiety F41.9 Active 51988144 Problem Autism spectrum F84.0 Active 79069842 Problem Hypertriglyceridemia E78.1 Active 483251663 Problem Generalized anxiety disorder F41.1 Active 78308227 Problem Chronic fatigue R53.82 Active 34791118 Problem Type 2 diabetes mellitus 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 E11.9 Active 230004388 Problem BMI 45.0-49.9, adult Z68.42 Active 613575801 Problem Other chronic pain G89.29 Active 10794308 Problem Morbid obesity due to excess calories E66.01 Active 415841509 Problem Type 2 diabetes mellitus with hyperglycemia E11.65 Active 508387375 Problem Hypertension I10 Active 28804820 Problem Diabetes type 2, uncontrolled E11.65 Active 203327684 Problem Mild episode of recurrent major depressive disorder F33.0 Active 781452760 Problem Type 2 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 Active 83731625 Problem Hypogonadism in male E29.1 Active 36128485 Problem Seasonal allergies J30.2 Active 268847450 Problem Controlled type 2 diabetes mellitus without complication, without long -term current use of insulin E11.9 Active 161666609 Problem Diabetic polyneuropathy associated with type 2 diabetes mellitus E11.42 Active 29171010 Problem Polyneuropathy G62.9 Active 06664920 Problem 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 Active 222491254 Problem skilled nursing 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.4 Active 812308023 Problem Diverticulitis of small intestine without perforation or abscess without bleeding K57.12 Active 15095334 Problem GERD without esophagitis K21.9 Active 133445406 Problem Type 2 diabetes mellitus with hyperglycemia E11.65 Active 657852198 ALLERGIES No Information ENCOUNTERS Encounter Location Date Diagnosis [facility] [id number] [place] [address] 94385- 9539 May, [facility] [address] 89455- 4313 May, [facility] [address] 96384- 7897 May, [facility] [address] 52070- 1301 May, [facility] [address] 21542 -9802 Apr, Colitis K52.9 ; Abdominal discomfort R10.9 and Anxiety F41.9 [facility] [id number] [place] [address] 66571- 9495 Apr, [facility] [address] 01102- 0608 Apr, Colitis K52.9 and BMI 45.0-49.9, adult Z68.42 [facility] [id number] [place] [address] 14745- 7705 Apr, Diabetes type 2, uncontrolled E11.65 [facility] [id number] [place] [address] 67387- 9326 Apr, Autism spectrum F84.0 ; Generalized anxiety disorder F41.1 and BMI 45.0-49.9, adult Z68.42 [facility] [id number] [place] [address] 00427- 8408 Apr, [facility] [id number] [place] [address] 05222- 0238 Apr, BMI 45.0-49.9, adult Z68.42 [facility] [id number] [place] [address] 59329- 4283 Apr, Candidiasis B37.9 ; Pain in right shoulder M25.511 ; Pain in left shoulder M25.512 ; Other chronic pain G89.29 and Morbid obesity due to excess calories E66.01 [facility] [id number] [place] [address] 30779- 1182 Apr, Hypogonadism in male E29.1 [facility] [id number] [place] [address] 67028 -8150 Mar, Yeast dermatitis B37.2 and Sensation of foreign body in throat R09.89 [facility] [id number] [place] [address] 17768- 2543 Mar, [facility] [address] 09950- 7897 Mar, Hypogonadism in male E29.1 [facility] [id number] [place] [address] 44879- 4760 Mar, Hypogonadism in male E29.1 [facility] [id number] [place] [address] 77508- 6920 Mar, [facility] [id number] [place] [address] 28443- 9421 Mar, Diabetes type 2, uncontrolled E11.65 and Hypogonadism in male E29.1 [facility] [id number] [place] [address] 66538- 5038 Mar, [facility] [id number] [place] [address] 07088- 8272 Feb, Diabetes type 2, controlled E11.9 ; Myalgia M79.1 and BMI 45.0-49.9, adult Z68.42 [facility] [id number] [place] [address] 76130 -9270 Feb, Hematuria, unspecified type R31.9 ; Side pain R10.9 and Rash R21 [facility] [id number] [place] [address] 78783- 1226 January, [facility] [id number] [place] [address] 77760- 4981 January, [facility] [id number] [place] [address] 74530- 8163 January, [facility] [id number] [place] [address] 93397 -9940 January, Seasonal allergies J30.2 and BMI 45.0-49.9, adult Z68.42 [facility] [address] 52258- 2709 January, Chronic fatigue R53.82 ; Mild episode of recurrent major depressive disorder F33.0 and Polyneuropathy G62.9 [facility] [id number] [place] [address] 36750- 8491 January, Chronic fatigue R53.82 ; BMI 45.0-49.9, adult Z68.42 and Anxiety F41.9 [facility] [id number] [place] [address] 80026- 2334 January, Generalized anxiety disorder F41.1 [facility] [id number] [place] [address] 00067- 3191 Dec, Autism spectrum F84.0 ; Generalized anxiety disorder F41.1 ; High risk medication use Z79.899 and BMI 45.0-49.9, adult Z68.42 [facility] [id number] [place] [address] 76935- 0279 Dec, [facility] [id number] [place] [address] [phone] Dec, Encounter for dental examination Z01.20 [facility] [id number] [place] [address] 86639- 2025 Dec, Mild episode of recurrent major depressive disorder F33.0 ; Type 2 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 and skilled nursing 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.4 [facility] [id number] [place] [address] 45753- 3062 Nov, [facility] [id number] [place] [address] 75648- 3812 Nov, BMI 45.0-49.9, adult Z68.42 ; Autism spectrum F84.0 and Generalized anxiety disorder F41.1 [facility] [id number] [place] [address] 30656- 9678 Nov, Type 2 diabetes mellitus 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 E11.9 and skilled nursing 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.4 [facility] [id number] [place] [address] [phone] Oct, Dental examination Z01.20 and Dental caries K02.9 [facility] [id number] [place] [address] 24486- 3241 Oct, [facility] [id number] [place] [address] 91256- 4042 Oct, BMI 45.0-49.9, adult Z68.42 ; Autism spectrum F84.0 and Generalized anxiety disorder F41.1 [facility] [id number] [place] [address] 72420- 9285 Oct, [facility] [id number] [place] [address] 97624- 0395 Oct, [facility] [id number] [place] [address] 74634- 2239 Oct, Hypertriglyceridemia E78.1 [facility] [id number] [place] [address] 25280- 0992 Oct, Hypertriglyceridemia E78.1 [facility] [id number] [place] [address] 28621- 8371 Sep, Controlled type 2 diabetes mellitus without complication, without long-term current use of insulin E11.9 [facility] [address] [address]- 4007 Sep, [facility] [id number] [place] [address] 74912- 4939 Sep, Controlled type 2 diabetes mellitus without complication, without long-term current use of insulin E11.9 [facility] [id number] [place] [address] 41132- 3112 Sep, [facility] [id number] [place] [address] 76149- 9071 Sep, [facility] [id number] [place] [address] 66775- 4042 Sep, BMI 45.0-49.9, adult Z68.42 ; Diabetic polyneuropathy associated with type 2 diabetes mellitus E11.42 and Chronic fatigue R53.82 [facility] [id number] [place] [address] 08051- 9224 Sep, [facility] [id number] [place] [address] 66094- 5705 Sep, Hypertriglyceridemia E78.1 [facility] [id number] [place] [address] 72705- 1176 Aug, [facility] [address] [address]- 6588 Aug, Generalized anxiety disorder F41.1 [facility] [id number] [place] [address] 81902- 4054 14 Aug, 2017 [facility] [address] [address]- 0490 Aug, Hypertriglyceridemia E78.1 [facility] [address] [address]- 7435 Jul, [facility] [address] [address]- 1013 Jul, [facility] [id number] [place] [address] 72960- 0654 Jul, Generalized anxiety disorder F41.1 ; Autism spectrum F84.0 ; BMI 45.0-49.9, adult Z68.42 and Patient's noncompliance with other medical treatment and regimen Z91.19 [facility] [id number] [place] [address] 75993- 0465 Jul, Diabetes type 2, uncontrolled E11.65 ; Diabetic polyneuropathy associated with type 2 diabetes mellitus E11.42 ; Abdominal pain , right upper quadrant R10.11 and Low back pain radiating to left lower extremity M54.5 [facility] [id number] [place] [address] 00003- 2756 Jul, Generalized anxiety disorder F41.1 [facility] [id number] [place] [address] 55086- 9569 Jul, [facility] [id number] [place] [address] 68769- 0879 Jul, Hypertriglyceridemia E78.1 [facility] [id number] [place] [address] 15763- 8052 Jul, Controlled type 2 diabetes mellitus without complication, without long-term current use of insulin E11.9 [facility] [id number] [place] [address] 50314- 5068 Jun, [facility] [id number] [place] [address] 67603- 3506 Jun, Hypertriglyceridemia E78.1 [facility] [id number] [place] [address] 13257- 5167 Jun, Controlled type 2 diabetes mellitus without complication, without long-term current use of insulin E11.9 [facility] [id number] [place] [address] 67462- 5128 Jun, Generalized anxiety disorder F41.1 [facility] [id number] [place] [address] 82549- 5782 Jun, Candidiasis B37.9 [facility] [id number] [place] [address] 76557- 1792 May, [facility] [address] 61840- 6239 18 May, 2017 Controlled type 2 diabetes mellitus without complication, without long-term current use of insulin E11.9 [facility] [address] 17652- 5953 14 May, 2017 Hypertriglyceridemia E78.1 [facility] [address] 76957- 6262 May, Hypertriglyceridemia E78.1 [facility] [address] 73842- 3413 May, Hypertriglyceridemia E78.1 and Hypotestosteronemia E34.9 [facility] [address] 51719- 9440 May, Generalized anxiety disorder F41.1 [place] [address] 90071- 8295 05 May, 2017 [facility] [address] 13544 -1111 May, Abscess and cellulitis L03.90 [facility] [address] [id number] Apr, [facility] [address] 81135- 6728 Apr, [facility] [id number] [place] [address] 52801- 3237 Apr, Dermatofibroma of back D23.5 [facility] [address] 21930 -7905 Apr, Muscle strain of left thigh, initial encounter S76.912A [facility] [address] 78746- 7226 Apr, [facility] [address] [address]- 4807 Apr, Generalized anxiety disorder F41.1 [facility] [id number] [place] [address] 72099- 7469 Apr, Polyneuropathy G62.9 [facility] [id number] [place] [address] 17438- 8519 Apr, GERD without esophagitis K21.9 [facility] [id number] [place] [address] 30910- 3368 Apr, Generalized anxiety disorder F41.1 ; Diastasis recti M62.08 and Controlled type 2 diabetes mellitus without complication, without long-term current use of insulin E11.9 [facility] [place] [address] [place] [address] 61566- 3280 Apr, Generalized anxiety disorder F41.1 ; Autism spectrum F84.0 and Controlled type 2 diabetes mellitus without complication, without long-term current use of insulin E11.9 [facility] [address] [place] [address] 14767- 3987 Mar, Generalized anxiety disorder F41.1 ; Diastasis recti M62.08 and Controlled type 2 diabetes mellitus without complication, without long-term current use of insulin E11.9 [facility] [address] [address]- 0876 Mar, Controlled type 2 diabetes mellitus without complication, without long-term current use of insulin E11.9 [facility] [address] [address]- 9578 Mar, Generalized anxiety disorder F41.1 [facility] [id number] [place] [address] 54290- 6006 Mar, Generalized anxiety disorder F41.1 [facility] [address] [address]- 2797 Mar, Generalized anxiety disorder F41.1 [facility] [place] [id number] [place] [address] 29914- 3587 Mar, Generalized anxiety disorder F41.1 [facility] [id number] [place] [address] 08831- 1674 Feb, Controlled type 2 diabetes mellitus without complication, without long-term current use of insulin E11.9 [facility] [id number] [place] [address] 58312- 3083 Feb, Controlled type 2 diabetes mellitus without complication, without long-term current use of insulin E11.9 and Tinea cruris B35.6 [facility] [id number] [place] [address] 26442- 0556 Feb, Diabetes type 2, controlled E11.9 [facility] [id number] [place] [address] [phone] Feb, Dental examination Z01.20 [facility] [id number] [place] [address] 70576- 6580 Feb, Dental examination Z01.20 [facility] [id number] [place] [address] 42214- 1454 Feb, Generalized anxiety disorder F41.1 [facility] [id number] [place] [address] 42864 -9752 Feb, Muscle spasm M62.838 and Diabetes type 2, controlled E11.9 [facility] [id number] [place] [address] 42667- 7095 Feb, Type 2 diabetes mellitus with hyperglycemia E11.65 [facility] [id number] [place] [address] [id number] Feb, Dental examination Z01.20 [facility] [id number] [place] [address] [id number] Feb, Encounter for dental examination Z01.20 [facility] [id number] [place] [address] 59807- 4931 Feb, Diabetes type 2, controlled E11.9 [facility] [address] [address]- 3157 Feb, Type 2 diabetes mellitus with hyperglycemia E11.65 [facility] [id number] [place] [address] 94287- 1052 Feb, [facility] [place] [id number] [place] [address] 01206- 2128 Feb, Controlled type 2 diabetes mellitus without complication, without long-term current use of insulin E11.9 [facility] [id number] [place] [address] 57605- 8449 January, Candidiasis B37.9 [facility] [id number] [place] [address] 18883- 8810 January, Type 2 diabetes mellitus with hyperglycemia E11.65 ; Hypertension I10 and Anxiety F41.9 [facility] [id number] [place] [address] 44887- 5049 January, Type 2 diabetes mellitus with hyperglycemia E11.65 [facility] [id number] [place] [address] 49380- 0314 January, Controlled type 2 diabetes mellitus without complication, without long-term current use of insulin E11.9 [facility] [place] [address] [place] [address] 68084- 6876 January, Generalized anxiety disorder F41.1 ; Autism spectrum F84.0 ; Foot callus L84 and Controlled type 2 diabetes mellitus without complication, without long-term current use of insulin E11.9 [facility] [address] [address]- 1726 Dec, [facility] [id number] [place] [address] 86803- 1579 Dec, [facility] [id number] [place] [address] 65742- 1164 Dec, Foot callus L84 and Rash R21 [facility] [id number] [place] [address] 79834- 4920 Dec, Controlled type 2 diabetes mellitus without complication, without long-term current use of insulin E11.9 [facility] [id number] [place] [address] 98834- 1045 Nov, [facility] [id number] [place] [address] 16125 -5408 Nov, Sore throat J02.9 and Strep pharyngitis J02.0 [facility] [id number] [place] [address] 67746- 0823 Nov, Generalized anxiety disorder F41.1 [facility] [id number] [place] [address] 66471- 8456 Nov, [facility] [place] [id number] [place] [address] 81854- 4015 Nov, [facility] [id number] [place] [address] 62586- 6320 Nov, Type 2 diabetes mellitus with hyperglycemia E11.65 [facility] [id number] [place] [address] 34283- 5573 Nov, Diabetes type 2, uncontrolled E11.65 and Localized edema R60.0 [facility] [id number] [place] [address] 84083- 9582 Nov, Controlled type 2 diabetes mellitus without complication, without long-term current use of insulin E11.9 [facility] [id number] [place] [address] 29928- 6731 14 Oct, 2016 Generalized anxiety disorder F41.1 and Autism spectrum F84.0 [facility] [id number] [place] [address] 92173- 9638 14 Oct, 2016 [facility] [id number] [place] [address] 58644- 9794 13 Oct, 2016 Type 2 diabetes mellitus with hyperglycemia E11.65 [facility] [id number] [place] [address] 71012- 1884 Oct, Type 2 diabetes mellitus with hyperglycemia E11.65 and skilled nursing 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.4 [facility] [id number] [place] [address] 36475- 3861 Oct, [facility] [id number] [place] [address] 53084- 4004 Oct, [facility] [id number] [place] [address] [id number] Oct, Encounter for dental examination Z01.20 [facility] [id number] [place] [address] 02269- 0278 Sep, [facility] [id number] [place] [address] 35013- 6969 Sep, Diabetes type 2, controlled E11.[address] [facility] [id number] [place] [address] 72503 -0281 Sep, Abdominal pain R10.9 and Diverticulitis of small intestine without perforation or abscess without bleeding K57.12 [facility] [id number] [place] [address] 24179- 3235 Sep, [facility] [id number] [place] [address] [phone] Sep, Diabetes type 2, controlled E11.9 [facility] [id number] [place] [phone] Sep, Controlled type 2 diabetes mellitus without complication, without long-term current use of insulin E11.9 [facility] [id number] [place] [phone] Sep, Type 2 diabetes mellitus 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 E11.9 and 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.4 [facility] [id number] [place] [phone] Aug, Lower abdominal pain R10.30 ; GERD without esophagitis K21.9 and Candidiasis of skin B37.2 [facility] [id number] [place] [phone] 09 Aug, 2016 Controlled type 2 diabetes mellitus without complication, without long-term current use of insulin E11.9 and Diabetic polyneuropathy associated with type 2 diabetes mellitus E11.42 [facility] [id number] [phone] Jul, Kelly infection of genital region B37.49 and Diabetes type 2, controlled E11.9 [facility] [id number] [place] [address] 93475- 4568 Jul, Controlled type 2 diabetes mellitus without complication, without long-term current use of insulin E11.9 ; 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 and Acute pharyngitis due to other specified organisms J02.8 [facility] [id number] [place] [address] 95079 -2104 Jul, Acute upper respiratory infection, unspecified J06.9 and Other viral agents as the cause of diseases classified elsewhere B97.89 [place] [id number] [place] [address] 04038- 6096 19 Jun, 2016 Generalized anxiety disorder F41.1 [place] [id number] [place] [address] 91628- 4150 14 Jun, 2016 [place] [id number] [place] [address] 86783- 9429 13 Jun, 2016 Diabetes type 2, controlled E11.9 and Polyneuropathy G62.9 [place] [address] [address] 2353 28 May, 2016 [place] [id number] [place] [address] 38750- 0736 28 May, 2016 Generalized anxiety disorder F41.1 [place] [id number] [place] [address] 21117- 4832 15 May, 2016 Polyneuropathy G62.9 [place] [id number] [place] [address] 48345- 6326 May, [place] [id number] [place] [address] 22024- 2635 Apr, Anxiety disorder, unspecified F41.9 [place] [id number] [place] [address] 35691- 6282 Mar, Abdominal pain, unspecified abdominal location R10.9 ; Type 2 diabetes mellitus with hyperglycemia E11.65 ; skilled nursing 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.4 and Diabetic polyneuropathy associated with type 2 diabetes mellitus E11.42 [place] [id number] [place] [address] 31567- 6236 Mar, Generalized anxiety disorder F41.1 [place] [address] 14862- 2105 Mar, Generalized abdominal pain R10.84 and Other male erectile dysfunction N52.8 [facility] [place] [address] 52074 -5289 Mar, [place] [address] 45079- 9175 Feb, Generalized anxiety disorder F41.1 [place] [address] 27109- 8981 Feb, Abdominal cramping R10.9 ; Acute bilateral low back pain without sciatica M54.5 and Malaise R53.81 [facility] [place] [id number] [place] [address] 27426 -8663 Feb, Candidiasis B37.9 and Costochondritis M94.0 [facility] [place] [id number] [place] [address] 14905 -2163 Feb, Allergic rhinitis, unspecified allergic rhinitis type J30.9 [place] [id number] [place] [address] 53422- 4534 Feb, Generalized anxiety disorder F41.1 [place] [address] 09905- 1657 Feb, [facility] [address] [address] 3768 Feb, Major depressive disorder, recurrent, moderate F33.1 [facility] [address] [address]- 7314 Feb, Generalized anxiety disorder F41.1 [facility] [id number] [place] [address] 59355- 5591 January, Unspecified infectious disease B99.9 [facility] [address] [id number] January, Dental examination Z01.20 [facility] [id number] [place] [address] 70451- 6881 January, [facility] [id number] [place] [address] 37914- 9447 January, Diabetes type 2, uncontrolled E11.65 [facility] [address] [address] January, Wheezing R06.2 and History of pneumonia Z87.01 [facility] [id number] [place] [address] 84697- 2538 January, [facility] [id number] [place] [address] 30730- 7677 January, Depression, major, recurrent, moderate F33.1 [facility] [address] [address]- 0236 January, [facility] [id number] [place] [address] 48444- 6871 January, Depression, major, recurrent, moderate F33.1 [facility] [address], [place] [address]- 6861 January, [facility] [id number] [place] [address] 79352- 3039 Dec, Depression, major, recurrent, moderate F33.1 [facility] [address] [address]- 3687 Dec, Dental examination Z01.20 [facility] [id number] [place] [address] [id number] Dec, Dental examination Z01.20 [facility] [id number] [place] [address] 32193- 9999 Dec, Generalized anxiety disorder F41.1 [facility] [id number] [place] [address] 97173- 0013 Dec, Generalized anxiety disorder F41.1 [facility] [id number] [place] [address] 39871- 8222 30 Nov, 2015 [facility] [id number] [place] [address] 50890- 0698 Nov, [facility] [id number] [place] [address] 67578- 0862 Nov, Generalized anxiety disorder F41.1 [facility] [id number] [place] [address] [id number] Nov, Dental examination Z01.20 [facility] [id number] [place] [address] 61726- 2284 Nov, [facility] [id number] [place] [address] 05976- 5761 Nov, Generalized anxiety disorder F41.1 and Autism spectrum F84.0 [facility] [id number] [place] [address] 15393- 9243 Nov, Depression, major, recurrent, moderate F33.1 [facility] [id number] [place] [address] 32064- 5774 Nov, [facility] [id number] [place] [address] 69359- 6119 Nov, Diabetes type 2, uncontrolled E11.65 and Hypertension I10 [facility] [id number] [place] [address] [id number] 14 Nov, 2015 Dental examination Z01.20 [place] [address] 10914- 5456 03 Nov, 2015 [place] [id number] [place] [address] 40504- 0670 Nov, Depression, major, recurrent, moderate F33.1 [facility] [id number] [place] [address] 64244 -9354 Nov, Penile abrasion S30.812A [place] [address] 06795- 9791 Oct, Generalized anxiety disorder F41.1 [place] [address] 98946- 5370 Oct, Depression, major, recurrent, moderate F33.1 [place] [id number] [place] [address] 18673- 7119 Oct, Diabetes type 2, controlled E11.9 and Malaise R53.81 [place] [id number] [place] [address] 25065- 0096 Oct, [place] [id number] [place] [address] 48470- 7855 16 Oct, 2015 [place] [id number] [place] [address] 68600- 6637 Oct, [place] [id number] [place] [address] 11399- 9084 Oct, Depression, major, recurrent, moderate F33.1 [facility] [id number] [place] [address] 87360- 2012 Oct, Generalized anxiety disorder F41.1 and Autism spectrum F84.0 [place] [address] 45903- 7960 Oct, [facility] [address], [place] [address]- 5798 Oct, Major depressive disorder, recurrent, moderate F33.1 [facility] [address], [place] [address]- 2409 Oct, [facility] [id number] [place] [address] 66589- 0197 Oct, [facility] [id number] [place] [address] 08040- 6276 Oct, Generalized anxiety disorder F41.1 [facility] [id number] [place] [address] 06387- 8414 Oct, [facility] [id number] [place] [address] 22555- 3549 Oct, Back muscle spasm M62.830 [facility] [id number] [place] [address] 65357- 0965 Oct, Major depressive disorder, recurrent, moderate F33.1 [facility] [id number] [place] [address] 17418 -5094 Sep, Back muscle spasm M62.830 ; Allergic rhinitis J30.9 and Person with feared health complaint in whom no diagnosis is made Z71.1 [facility] [address] [address]- 7674 Sep, Generalized anxiety disorder F41.1 [facility] [id number] [place] [address] 74582 -8042 Sep, [facility] [id number] [place] [address] 80177- 2716 Sep, [facility] [id number] [place] [address] 58147- 2835 Sep, Mood disorder F39 ; Diabetes type 2, controlled E11.9 ; Morbid obesity due to excess calories E66.01 and Edema, unspecified type R60.9 [facility] [id number] [place] [address] 40688- 0487 Sep, Generalized anxiety disorder F41.1 [facility] [id number] [place] [address] 09942- 8212 Sep, [facility] [id number] [place] [address] 84034- 2924 Sep, Adjustment disorder with mixed anxiety and depressed mood F43.23 and Depression F32.9 [facility] [id number] [place] [address] 18104- 2402 Sep, Generalized anxiety disorder F41.1 [facility] [id number] [place] [address] 34905- 1404 05 Sep, 2015 Generalized anxiety disorder 300.02 and Autism spectrum disorder F84.0 [facility] [address] [place] [address] [id number] [place] [address] [id number] Aug, Encounter for dental examination Z01.20 [facility] [id number] [place] [address] 65197- 8103 16 Aug, 2015 [facility] [id number] [place] [address] 58574 -2671 17 Jul, 2015 Candidiasis B37.9 [facility] [id number] [place] [address] 72055- 7168 Jul, [facility] [address] [place] [address] AVE [id number] Jul, Encounter for dental examination Z01.20 [facility] [id number] [place] [address] 63952- 3580 02 Jul, 2015 [facility] [id number] [place] [address] 84149- 2504 08 Jun, 2015 [facility] [id number] [place] [address] 57252- 1613 30 May, 2015 Diabetes type 2, controlled 250.00 and Neuropathy 355.9 [facility] [id number] [place] [address] 09706- 3617 May, [facility] [id number] [place] [address] 25667- 1252 Apr, Generalized anxiety disorder 300.02 and Autism spectrum disorder 299.00 [facility] [id number] [place] [address] 14927- 0263 Apr, Abrasion, foot 917.0 ; Chest pain 786.50 and Back pain 724.5 [facility] [id number] [place] [address] 37545- 2585 Apr, Generalized anxiety disorder 300.02 [facility] [id number] [place] [address] 75594- 3134 Feb, Anxiety state, unspecified 300.00 [facility] [address] 75472- 8755 Feb, Diabetes mellitus without mention of complication, type II or unspecified type, not stated as uncontrolled 250.00 ; Generalized anxiety disorder 300.02 ; Morbid obesity 278.01 ; Benign essential hypertension 401.1 ; Chronic pain 338.29 ; Screen for STD (sexually transmitted disease) V74.5 ; Dysuria 788.1 and Kelly infection of genital region 112.2 [facility] [id number] [place] [address] 02752- 9748 Feb, [facility] [id number] [place] [address] 93841- 0052 January, Generalized anxiety disorder 300.02 and Autism spectrum disorder 299.00 [facility] [id number] [place] [address] 10255- 1413 Dec, [facility] [id number] [place] [address] 69405- 1770 Dec, [facility] [id number] [place] [address] 28827- 0150 Dec, [facility] [address] [id number] [place] [address]- 4263 Nov, [facility] [place] [facility] [address] [id number] [place] [id number] Nov, [facility] [place] [facility] [address] [id number] [place] [address]- 3114 Nov, [facility] [place] [facility] [address] [id number] [place] [address]- 4207 Nov, [facility] [place] [facility] [address] [id number] [place] [id number] Nov, [facility] [place] [facility] [address] [id number] [place] [address]- 0726 Oct, [facility] [place] [facility] [address] [id number] [place] 3686 Jul, [facility] [place] [facility] [address] [id number] [place] [address]- 9986 Jul, [facility] [address] [id number] [place] [address]- 9754 Jul, [facility] [place] [facility] [address] [id number] [place] [address]- 3562 Jul, [facility] [place] [facility] [address] [id number] [place] [address]- 0454 Jul, [facility] [place] [facility] [address] [id number] [place] [address]- 5709 Jul, [facility] [place] [facility] [address] [id number] [place] [address]- 2252 Jul, [facility] [place] [facility] [address] [id number] [place] [address]- 5684 Jul, [facility] [place] [facility] [address] [id number] [place] [address]- 6050 Jul, [facility] [place] [facility] [address] [id number] [place] [address]- 3684 Jul, [facility] [place] [facility] [address] [id number] [place] [address]- 1639 Jun, [facility] [place] [facility] [address] [id number] [place] [address]- 7429 Jun, [facility] [place] [facility] [address] [id number] [place] [address]- 9783 Jun, [facility] [place] [facility] [address] [id number] [place] [address]- 4936 Jun, [facility] [place] [facility] [address] [id number] [place] [address]- 1224 Jun, [facility] [place] [facility] [address] [id number] [place] [address]- 9101 Jun, [facility] [place] [facility] [address] [id number] [place] [address]- 1427 Jun, [facility] [place] [facility] [address] [id number] [place] [address]- 5755 30 May, 2013 [facility] [place] [facility] [address] [id number] [place] [address]- 6501 30 May, 2014 [facility] [place] [facility] [address] [id number] [place] [address]- 0052 12 May, 2014 [facility] [place] [facility] [address] [id number] [place] [address]- 1050 12 May, 2013 [facility] [place] [facility] [address] [id number] [address]- 7016 10 May, 2013 [facility] [place] [facility] [address] [id number] [place] [address]- 2549 10 May, 2013 [facility] [place] [facility] [address] [id number] [place] [address]- 3656 02 May, 2013 [facility] [place] [facility] [address] [id number] [place] [address]- 4211 02 May, 2013 [facility] [place] [facility] [address] [id number] [place] [address]- 5785 Apr, [facility] [place] [facility] [address] [id number] [place] [address]- 8519 Apr, [facility] [place] [facility] [address] [id number] [place] [address]- 4486 Apr, [facility] [place] [facility] [address] [id number] [place] [address]- 5387 Apr, [facility] [place] [facility] [address] [id number] [place] [address]- 2005 Apr, [facility] [place] [facility] [address] [id number] [place] [address]- 0074 Apr, [facility] [place] [facility] [address] [id number] [place] [address]- 3520 Apr, [facility] [place] [facility] [address] [id number] [place] [address]- 5026 Apr, [facility] [place] [facility] [address] [id number] [place] [address]- 6482 Apr, [facility] [place] [facility] [address] [id number] [place] [address]- 2045 Mar, [facility] [place] [facility] [address] [id number] [place] [address]- 6023 Mar, [facility] [place] [facility] [address] [id number] [place] [address]- 2674 Mar, [facility] [place] [facility] [address] [id number] [place] [address]- 9467 Mar, [facility] [place] [facility] [address] [id number] [place] [address]- 9718 Mar, [facility] [place] [facility] [address] [id number] [place] [address]- 5229 Mar, [facility] [place] [facility] [address] [id number] [place] [address]- 7292 Feb, [facility] [place] [facility] [address] [id number] [place] [address]- 7756 Feb, [facility] [place] [facility] [address] [id number] [place] [address]- 2844 Feb, [facility] [place] [facility] [address] [id number] [place] [address]- 3349 January, [facility] [place] [facility] [address] [id number] [place] [address]- 4950 January, [facility] [place] [facility] [address] [id number] [place] [address]- 5157 January, [facility] [place] [facility] [address] [id number] [place] [address]- 4003 January, [facility] [place] [facility] [address] [id number] [place] [address]- 6552 January, [facility] [place] [facility] [address] [id number] [place] [address]- 0456 January, [facility] [place] [facility] [address] [id number] [place] [address]- 6981 Dec, [facility] [place] [facility] [address] [id number] [place] [address]- 1321 Dec, [facility] [place] [facility] [address] [id number] [place] [address]- 8150 Dec, [facility] [place] [facility] [address] [id number] [place] [address]- 2856 Dec, [facility] [place] [facility] [address] [id number] [place] 4314 Nov, [facility] [place] [facility] [address] [id number] [place] 4867 Nov, [facility] [place] [facility] [address] [id number] [place] 7844 Oct, [facility] [place] [facility] [address] [id number] [place] [address]- 4664 Oct, [facility] [place] [facility] [address] [id number] [place] [address]- 3364 Sep, [facility] [place] [facility] [address] [id number] [place] [address]- 6267 Sep, [facility] [place] [facility] [address] [id number] [place] 8791 Aug, [facility] [place] [facility] [address] [id number] [place] [address]- 5084 Aug, [facility] [place] [facility] [address] [id number] [place] [address]- 0571 Aug, [facility] [place] [facility] [address] [id number] [place] [address]- 0988 Jul, [facility] [place] [facility] [address] [id number] [place] [address]- 4582 Jul, [facility] [place] [facility] [address] [id number] [place] [address]- [address] Jul, [facility] [place] [facility] [address] [id number] [place] [address] Jul, [facility] [place] [facility] [address] [id number] [place] [address] Jul, [facility] [place] [facility] [address] [id number], [place] [address] 17 May, 2013 [facility] [place] [facility] [address] [id number][place] [address] May, [facility] [place] [facility] [address] [id number] [place] [address] 15 Apr, 2013 [facility] [place] [facility] [address] [id number], [place] [address] Apr, [facility] [place] [facility] [address] [id number] [place] [address] Mar, [facility] [place] [facility] [address] [id number] [place] [address] Mar, [facility] [address] [id number] [place] [address] Mar, [facility] [place] [facility] [address] [id number] [place] [address] Mar, [facility] [address] [id number] [place] [address] Feb, [facility] [place] [facility] [address] [id number] [place] [address] Feb, [facility] [address] [id number] [place] [address] Feb, [facility] [address] [id number] [place] [address] Feb, [facility] [address] [id number] [place] [address] Feb, [facility] [address] [id number] [place] [address] January, [facility] [address] [id number] [place] [address] January, [facility] [address] [id number] [place] [address] January, [facility] [address] [id number] [place] [address] January, [facility] [place] [facility] [address] [id number] [place] [address] Dec, [facility] [place] [facility] [address] [id number] [place] [address] Dec, [facility] [place] [facility] [address] [id number] [place] [address] 18 Dec, 2012 [facility] [place] [facility] [address] [id number] [place] [address] Dec, [facility] [place] [facility] [address] [id number] [place] [address] Nov, [facility] [address] [id number] [place] [address] Nov, [facility] [place] [facility] [address] [id number] [place] [address] Oct, [facility] [place] [facility] [address] [id number] [place] [address] Aug, [facility] [address] [id number] [place] [address] Aug, [facility] [address] [id number] [place] [address] Dec, [facility] [address] [id number] [place] [address] Dec, [facility] [address] [id number] [place] [address] Dec, [facility] [address] [id number] [place] [address] Nov, [facility] [address] [id number] [place] [address] Nov, [facility] [address] [id number] [place] [address] Oct, [facility] [place] [facility] [address] [id number], [place] [address] Oct, [facility] [place] [facility] [address] [id number] [place] [address]- [id number] Oct, [facility] [place] [facility] [address] [id number] [place] [address] Sep, [facility] [place] [facility] [address] [id number] [place] [address] Sep, [facility] [place] [facility] [address] [id number] [address] 18 Sep, 2011 [facility] [address] [id number] [place] [address] 17 Sep, 2011 [facility] [address] [id number] [place] [address] 12 Sep, 2011 [facility] [address] [facility] [id number] [place] [address] 11 Sep, 2011 [facility] [address] [id number] [place] [address] 10 Sep, 2011 [facility] [address] [id number] [place] [address] 09 Sep, 2011 [facility] [address] [id number] [place] [address] 22 Jul, 2011 [facility] [id number] [address] 15 Jul, 2011 [facility] [address] [id number] [place] [address] 15 Jul, 2011 [facility] [address] [id number] [place] [address] 14 Nov, 2010 [facility] [address] [facility] [id number] [place] [address] 17 Aug, 2010 [facility] [address] [id number] [place] [address] 17 Aug, 2010 [facility] [place] [facility] [address] [id number], [place] [address] 16 Aug, 2010 [facility] [place] [facility] [address] [id number] [place] [address] 15 Aug, 2010 [facility] [place] [facility] [address] [facility] [id number] [place] [address] 09 Aug, 2010 [facility] [place] [facility] [address] [facility] [id number] [place] [address] 26 Jul, 2010 [facility] [place] [facility] [address] [facility] [id number], [place] [address] 12 Jun, 2010 [facility] [id number] [address] Jun, [facility] [address] [facility] [id number], [place] [address] Sep, [facility] [id number] [address] Aug, [facility] [address] [facility] [id number], [place] [address] Aug, [facility] [id number] [address] Aug, [facility] [id number] [address] 14 Jun, 2009 [facility] [id number] [address] 14 Jun, 2009 [facility] [id number] [address] [address] 14 May, 2009 [facility] [id number], [place] [address] Apr, [facility] [address] [id number] [address] Mar, [facility] [address] [id number] [address] January, [facility] [address] [id number], [place] [address] Oct, IMMUNIZATIONS No Known Immunizations SOCIAL HISTORY Never Assessed REASON FOR VISIT BS f/u attempt PLAN OF CARE VITAL SIGNS MEDICATIONS Unknown [...] Hospitalization History 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
--- OUTSIDE RECORDS SUMMARY | 2018-07-05 10:52 | XMS REPORT ---
Author Author NERISSA MARTINEZ [facility] Address [address] [place] [address] Care Team Providers Care Organ Builder Name Role Phone NERISSA MARTINEZ Unavailable PROBLEMS Type Condition ICD9-CM Code IFC96-MO Code Onset Dates Condition Status SNOMED Code Problem Other male erectile dysfunction N52.8 Active 480937886 Problem Diabetes type 2, controlled E11.9 Active 53160091 Problem Obesity, unspecified E66.9 Active 755496723 Problem Gastro-esophageal reflux disease with esophagitis K21.0 Active 538128105 Problem Insomnia, unspecified G47.00 Active 190351097 Problem Anxiety F41.9 Active 81224075 Problem Autism spectrum F84.0 Active 63836484 Problem Hypertriglyceridemia E78.1 Active 272079192 Problem Generalized anxiety disorder F41.1 Active 08820142 Problem Chronic fatigue R53.82 Active 78798538 Problem Type 2 diabetes mellitus 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 E11.9 Active 621090061 Problem BMI 45.0-49.9, adult Z68.42 Active 481147575 Problem Other chronic pain G89.29 Active 89864788 Problem Morbid obesity due to excess calories E66.01 Active 265826540 Problem Type 2 diabetes mellitus with hyperglycemia E11.65 Active 096839006 Problem Hypertension I10 Active 76303757 Problem Diabetes type 2, uncontrolled E11.65 Active 341759219 Problem Mild episode of recurrent major depressive disorder F33.0 Active 649910094 Problem Type 2 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 Active 68443441 Problem Hypogonadism in male E29.1 Active 75710875 Problem Seasonal allergies J30.2 Active 235514351 Problem Controlled type 2 diabetes mellitus without complication, without long -term current use of insulin E11.9 Active 825475347 Problem Diabetic polyneuropathy associated with type 2 diabetes mellitus E11.42 Active 88064244 Problem Polyneuropathy G62.9 Active 47066485 Problem 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 Active 106338680 Problem nursing home 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.4 Active 260062878 Problem Diverticulitis of small intestine without perforation or abscess without bleeding K57.12 Active 83720430 Problem GERD without esophagitis K21.9 Active 110839158 Problem Type 2 diabetes mellitus with hyperglycemia E11.65 Active 611592284 ALLERGIES Substance Reaction Event Type Date Status Zoloft hives adverse reaction Drug Allergy Mar, Active Wellbutrin "out of it" Drug Allergy Mar, Active Clindamycin HCl itching Drug Allergy Mar, Active BuSpar local swelling Drug Allergy Mar, Active ENCOUNTERS Encounter Location Date Diagnosis [facility] [address] [address] May, [place] [address] [address]- [address]70 May, [facility] [address] [address] Apr, Colitis K52.9 ; Abdominal discomfort R10.9 and Anxiety F41.9 [place] [address] 0[address]10- 0924 Apr, [place] [address] 96175- 8789 Apr, Colitis K52.9 and BMI 45.0-49.9, adult Z68.42 [place] [address] 46145- 1426 Apr, Diabetes type 2, uncontrolled E11.65 [facility] [address] 8[address]- 0951 Apr, Autism spectrum F84.0 ; Generalized anxiety disorder F41.1 and BMI 45.0-49.9, adult Z68.42 [place] [address] 57982- 6097 Apr, [place] [address] 89175- 7017 Apr, BMI 45.0-49.9, adult Z68.42 [place] [address] [place] [id number] [place] [address] 93416- 1562 08 Apr, 2018 Candidiasis B37.9 ; Pain in right shoulder M25.511 ; Pain in left shoulder M25.512 ; Other chronic pain G89.29 and Morbid obesity due to excess calories E66.01 [place] [address] [place] [id number] [place] [address] 52793- 6422 Apr, Hypogonadism in male E29.1 [facility] [address] [place] [id number] [place] [address] 88761 -4988 Mar, Yeast dermatitis B37.2 and Sensation of foreign body in throat R09.89 [place] [address] 21550- 7331 Mar, [place] [address] 42957- 7720 Mar, Hypogonadism in male E29.1 [place] [address] [place] [id number] [place] [address] 49363- 1260 Mar, Hypogonadism in male E29.1 [place] [address] 76030- 6899 Mar, [place] [address] [place] [id number] [place] [address] 27136- 8704 Mar, Diabetes type 2, uncontrolled E11.65 and Hypogonadism in male E29.1 [place] [address] [place] [id number] [place] [address] 86518- 2247 Mar, [place] [address] [place] [id number] [place] [address] 89048- 7278 Feb, Diabetes type 2, controlled E11.9 ; Myalgia M79.1 and BMI 45.0-49.9, adult Z68.42 [facility] [address] [place] [id number] [place] [address] 81155 -2725 Feb, Hematuria, unspecified type R31.9 ; Side pain R10.9 and Rash R21 [facility] [address] [place] [id number] [place] [address] 02126- 3022 January, [facility] [address] 82476- 6896 January, [facility] [address] [place] [id number] [place] [address] 88678- 4988 January, [facility] [address] 30503 -9917 January, Seasonal allergies J30.2 and BMI 45.0-49.9, adult Z68.42 [place] [address] 54495- 1846 January, Chronic fatigue R53.82 ; Mild episode of recurrent major depressive disorder F33.0 and Polyneuropathy G62.9 [place] [address] 55514- 0462 January, Chronic fatigue R53.82 ; BMI 45.0-49.9, adult Z68.42 and Anxiety F41.9 [place] [address] [place] [id number] [place] [address] 28358- 0034 January, Generalized anxiety disorder F41.1 [facility] [address] [place] [id number] [place] [address] 48438- 4375 Dec, Autism spectrum F84.0 ; Generalized anxiety disorder F41.1 ; High risk medication use Z79.899 and BMI 45.0-49.9, adult Z68.42 [facility] [address] [place] [id number] [place] [address] 11515- 2740 Dec, [facility] [address] [place] [id number] [place] [address] [id number] Dec, Encounter for dental examination Z01.20 [facility] [address] [place] [id number] [place] [address] 73771- 8496 Dec, Mild episode of recurrent major depressive disorder F33.0 ; Type 2 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 and 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 [facility] [id number] [place] [address] 87650- 9150 Nov, [facility] [address] [place] [id number] [place] [address] 34281- 9153 Nov, BMI 45.0-49.9, adult Z68.42 ; Autism spectrum F84.0 and Generalized anxiety disorder F41.1 [facility] [address] [place] [id number] [place] [address] 13215- 4390 Nov, Type 2 diabetes mellitus 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 E11.9 and nursing home 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.4 [facility] [address] [place] [id number] [place] [address] [phone] Oct, Dental examination Z01.20 and Dental caries K02.9 [facility] [address] [place] [id number] [place] [address] 86070- 6598 Oct, [facility] [address] [place] [id number] [place] [address] 93162- 7672 Oct, BMI 45.0-49.9, adult Z68.42 ; Autism spectrum F84.0 and Generalized anxiety disorder F41.1 [facility] [id number] [place] [address] 12277- 8274 Oct, [facility] [address] [place] [id number] [place] [address] 43836- 3161 Oct, [facility] [address] [place] [id number] [place] [address] 97965- 4063 Oct, Hypertriglyceridemia E78.1 [facility] [address] [place] [id number] [place] [address] 84329- 3721 Oct, Hypertriglyceridemia E78.1 [facility] [id number] [place] [address] 95031- 8491 Sep, Controlled type 2 diabetes mellitus without complication, without long-term current use of insulin E11.9 [facility] [address] [address]- 44[address] Sep, [facility] [address] [place] [id number] [place] [address] 60271- 2022 Sep, Controlled type 2 diabetes mellitus without complication, without long-term current use of insulin E11.9 [facility] [id number] [place] [address] 88593- 1083 Sep, [facility] [address] [place] [id number] [place] [address] 96332- 1849 Sep, [facility] [address] [place] [id number] [place] [address] 26494- 0949 Sep, BMI 45.0-49.9, adult Z68.42 ; Diabetic polyneuropathy associated with type 2 diabetes mellitus E11.42 and Chronic fatigue R53.82 [facility] [address] [place] [id number] [place] [address] 88511- 2762 Sep, [facility] [address] [place] [id number] [place] [address] 77474- 9397 Sep, Hypertriglyceridemia E78.1 [facility] [address] [place] [id number] [place] [address] 70484- 7406 Aug, [facility] [address] [address]- 6747 Aug, Generalized anxiety disorder F41.1 [facility] [address] [place] [id number] [place] [address] 82623- 8852 14 Aug, 2017 [facility] [id number] [place] [address] 37263- 8068 Aug, Hypertriglyceridemia E78.1 [facility] [address] [place] [id number] [place] [address] 65180- 4715 Jul, [facility] [address] [address]- 4454 Jul, [facility] [address] [place] [address] [place] [address]- 0721 Jul, Generalized anxiety disorder F41.1 ; Autism spectrum F84.0 ; BMI 45.0-49.9, adult Z68.42 and Patient's noncompliance with other medical treatment and regimen Z91.19 [place] [address] [place] [id number] [place] [address] 03280- 8987 Jul, Diabetes type 2, uncontrolled E11.65 ; Diabetic polyneuropathy associated with type 2 diabetes mellitus E11.42 ; Abdominal pain , right upper quadrant R10.11 and Low back pain radiating to left lower extremity M54.5 [place] [address] [place] [id number] [place] [address] 77384- 5861 Jul, Generalized anxiety disorder F41.1 [place] [address] [place] [id number] [place] [address] 40579- 1744 Jul, [place] [address] [place] [id number] [place] [address] 17389- 4889 Jul, Hypertriglyceridemia E78.1 [place] [address] [place] [id number] [place] [address] 36623- 2280 Jul, Controlled type 2 diabetes mellitus without complication, without long-term current use of insulin E11.9 [place] [id number] [place] [address] 02716- 0260 Jun, [place] [address] [place] [id number] [place] [address] 28979- 9376 Jun, Hypertriglyceridemia E78.1 [place] [address] [place] [id number] [place] [address] 63675- 3107 Jun, Controlled type 2 diabetes mellitus without complication, without long-term current use of insulin E11.9 [place] [id number] [place] [address] 91173- 1182 Jun, Generalized anxiety disorder F41.1 [place] [address] [place] [id number] [place] [address] 67031- 5548 Jun, Candidiasis B37.9 [facility] [address] [place] [id number] [place] [address] 70961- 7430 May, [place] [address] 01747- 1836 18 May, 2017 Controlled type 2 diabetes mellitus without complication, without long-term current use of insulin E11.9 [place] [address] 53443- 5633 14 May, 2017 Hypertriglyceridemia E78.1 [place] [address] 33241- 1898 14 May, 2017 Hypertriglyceridemia E78.1 [place] [address] 16611- 8458 14 May, 2017 Hypertriglyceridemia E78.1 and Hypotestosteronemia E34.9 [place] [address] 00320- 2862 May, Generalized anxiety disorder F41.1 [place] [address] 24676- 6993 05 May, 2017 [facility] [place] [address] 11707 -0880 03 May, 2017 Abscess and cellulitis L03.90 [facility] [address] [id number] Apr, [facility] [address] 02758- 7552 Apr, [place] [address] 19435- 1396 Apr, Dermatofibroma of back D23.5 [facility] [place] [address] 88254 -7915 Apr, Muscle strain of left thigh, initial encounter S76.912A [place] [address] 51866- 8576 Apr, [facility] [address] [address]- 0551 Apr, Generalized anxiety disorder F41.1 [facility] [address] [address]- 3431 Apr, Polyneuropathy G62.9 [facility] [address] [place] [id number] [address]- 5930 Apr, GERD without esophagitis K21.9 [facility] [address] [place] [id number] [place] [address] 15327- 8432 Apr, Generalized anxiety disorder F41.1 ; Diastasis recti M62.08 and Controlled type 2 diabetes mellitus without complication, without long-term current use of insulin E11.9 [place] [address] [address]- 4030 Apr, Generalized anxiety disorder F41.1 ; Autism spectrum F84.0 and Controlled type 2 diabetes mellitus without complication, without long-term current use of insulin E11.9 [facility] [address] [address]- 3823 Mar, Generalized anxiety disorder F41.1 ; Diastasis recti M62.08 and Controlled type 2 diabetes mellitus without complication, without long-term current use of insulin E11.9 [facility] [address] [address]- 8864 Mar, Controlled type 2 diabetes mellitus without complication, without long-term current use of insulin E11.9 [facility] [address] [address]- 1944 Mar, Generalized anxiety disorder F41.1 [facility] [address] [address]- 7640 Mar, Generalized anxiety disorder F41.1 [facility] [address] [address]- 2259 Mar, Generalized anxiety disorder F41.1 [facility] [address] [place] [id number] [place] [address] 89984- 3114 Mar, Generalized anxiety disorder F41.1 [facility] [address] [place] [id number] [place] [address] 97898- 8203 Feb, Controlled type 2 diabetes mellitus without complication, without long-term current use of insulin E11.9 [facility] [address] [place] [id number] [place] [address] 45713- 6294 Feb, Controlled type 2 diabetes mellitus without complication, without long-term current use of insulin E11.9 and Tinea cruris B35.6 [facility] [address] [place] [id number] [place] [address] 69713- 3406 Feb, Diabetes type 2, controlled E11.9 [facility] [address] [place] [id number] [place] [address] [id number] Feb, Dental examination Z01.20 [facility] [address] [place] [id number] [place] [address] 53280- 0618 Feb, Dental examination Z01.20 [facility] [address] [place] [id number] [place] [address] 89049- 8450 Feb, Generalized anxiety disorder F41.1 [facility] [address] [place] [id number] [place] [address] 07548 -1752 Feb, Muscle spasm M62.838 and Diabetes type 2, controlled E11.9 [facility] [id number] [place] [address] 65923- 9179 Feb, Type 2 diabetes mellitus with hyperglycemia E11.65 [facility] [address] [place] [id number] [place] [address] [id number] Feb, Dental examination Z01.20 [facility] [address] [place] [id number] [place] [address] [id number] Feb, Encounter for dental examination Z01.20 [facility] [address] [place] [id number] [place] [address] 14322- 3854 Feb, Diabetes type 2, controlled E11.9 [place] [address], [place] [address]- 9348 Feb, Type 2 diabetes mellitus with hyperglycemia E11.65 [place] [address] [place] [id number] [place] [address] 93343- 5776 Feb, [place] [address] [place] [id number] [place] [address] 18979- 8725 Feb, Controlled type 2 diabetes mellitus without complication, without long-term current use of insulin E11.9 [place] [address] [place] [id number] [place] [address] 84641- 7774 January, Candidiasis B37.9 [place] [address] [place] [id number] [place] [address] 56888- 4851 January, Type 2 diabetes mellitus with hyperglycemia E11.65 ; Hypertension I10 and Anxiety F41.9 [place] [address] [place] [id number] [place] [address] 73172- 2815 January, Type 2 diabetes mellitus with hyperglycemia E11.65 [place] [id number] [place] [address] 88134- 3162 January, Controlled type 2 diabetes mellitus without complication, without long-term current use of insulin E11.9 [place] [id number] [place] [address] 07386- 0056 January, Generalized anxiety disorder F41.1 ; Autism spectrum F84.0 ; Foot callus L84 and Controlled type 2 diabetes mellitus without complication, without long-term current use of insulin E11.9 [place] [address] [address]- 4994 Dec, [place] [address] [place] [id number] [place] [address] 75513- 1155 Dec, [place] [id number] [place] [address] 86626- 9012 Dec, Foot callus L84 and Rash R21 [place] [address] [place] [id number] [place] [address] 55641- 5011 Dec, Controlled type 2 diabetes mellitus without complication, without long-term current use of insulin E11.9 [facility] [address] [place] [id number] [place] [address] 87730- 4316 Nov, [facility] [address] [place] [id number] [place] [address] 37351 -2583 Nov, Sore throat J02.9 and Strep pharyngitis J02.0 [facility] [address] [place] [id number] [place] [address] 73987- 1983 Nov, Generalized anxiety disorder F41.1 [facility] [address] [place] [id number] [place] [address] 19289- 7971 Nov, [place] [address] [place] [id number] [place] [address] 11109- 3655 Nov, [place] [address] 46569- 2986 Nov, Type 2 diabetes mellitus with hyperglycemia E11.65 [facility] [address] [place] [id number] [place] [address] 96513- 0692 Nov, Diabetes type 2, uncontrolled E11.65 and Localized edema R60.0 [place] [address] [place] [id number] [place] [address] 74882- 2802 Nov, Controlled type 2 diabetes mellitus without complication, without long-term current use of insulin E11.9 [facility] [address] [place] [id number] [place] [address] 09146- 7030 14 Oct, 2016 Generalized anxiety disorder F41.1 and Autism spectrum F84.0 [place] [address] [place] [id number] [place] [address] 26031- 5170 14 Oct, 2016 [place] [address] [place] [id number] [place] [address] 30478- 6124 13 Oct, 2016 Type 2 diabetes mellitus with hyperglycemia E11.65 [place] [address] [place] [id number] [place] [address] 65887- 8832 Oct, Type 2 diabetes mellitus with hyperglycemia E11.65 and nursing home 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.4 [facility] [id number] [place] [address] 22336- 9340 Oct, [facility] [id number] [place] [address] 52346- 7268 Oct, [facility] [id number] [place] [address] [id number] Oct, Encounter for dental examination Z01.20 [facility] [address] [place] [id number] [place] [address] 16459- 5129 Sep, [place] [address] [place] [id number] [place] [address] 50126- 0004 Sep, Diabetes type 2, controlled E11.9 [facility] [place] [address] [place] [address] [id number] [place] [address] 43985 -4222 Sep, Abdominal pain R10.9 and Diverticulitis of small intestine without perforation or abscess without bleeding K57.12 [facility] [address] [place] [id number] [place] [address] 84586- 0851 Sep, [facility] [address] [place] [id number] [place] [address] 87188- 5181 Sep, Diabetes type 2, controlled E11.9 [facility] [id number] [place] [address] 11927- 2456 Sep, Controlled type 2 diabetes mellitus without complication, without long-term current use of insulin E11.9 [facility] [address], [place] [address]- 0689 Sep, Type 2 diabetes mellitus 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 E11.9 and nursing home 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.4 [facility] [id number] [place] [address] 43469 -7887 Aug, Lower abdominal pain R10.30 ; GERD without esophagitis K21.9 and Candidiasis of skin B37.2 [facility] [address] [address]- 3531 09 Aug, 2016 Controlled type 2 diabetes mellitus without complication, without long-term current use of insulin E11.9 and Diabetic polyneuropathy associated with type 2 diabetes mellitus E11.42 [facility] [address] [address]1204 29 Jul, 2016 Kelly infection of genital region B37.49 and Diabetes type 2, controlled E11.9 [place] [address] [place] [id number] [place] [address] 05411- 1072 Jul, Controlled type 2 diabetes mellitus without complication, without long-term current use of insulin E11.9 ; 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 and Acute pharyngitis due to other specified organisms J02.8 [facility] [address], [place] [address] -7440 Jul, Acute upper respiratory infection, unspecified J06.9 and Other viral agents as the cause of diseases classified elsewhere B97.89 [place] [address] [place] [id number] [place] [address] 98136- 2137 19 Jun, 2016 Generalized anxiety disorder F41.1 [place] [address] [place] [id number] [place] [address] 46267- 4734 14 Jun, 2016 [place] [address] [place] [id number] [place] [address] 62227- 0196 13 Jun, 2016 Diabetes type 2, controlled E11.9 and Polyneuropathy G62.9 [place] [address] [address]- 6749 28 May, 2016 [place] [address] [place] [id number] [place] [address] 09777- 6559 28 May, 2016 Generalized anxiety disorder F41.1 [place] [address] [place] [id number] [place] [address] 26724- 4588 15 May, 2016 Polyneuropathy G62.9 [place] [address] [place] [id number] [place] [address] 24894- 6105 May, [place] [address] [place] [id number] [place] [address] 21127- 6649 Apr, Anxiety disorder, unspecified F41.9 [place] [address] 95295- 7968 Mar, Abdominal pain, unspecified abdominal location R10.9 ; Type 2 diabetes mellitus with hyperglycemia E11.65 ; 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5 and Malaise R53.81 [facility] [place] [address] [address] -1323 Feb, Candidiasis B37.9 and Costochondritis M94.0 [facility] [address] [address] Feb, Allergic rhinitis, unspecified allergic rhinitis type J30.9 [place] [address] 94562- 7277 Feb, Generalized anxiety disorder F41.1 [place] [address] 62062- 2653 Feb, [facility] [address] [address] Feb, Major depressive disorder, recurrent, moderate F33.1 [facility] [id number] [place] [address] 61145- 1767 Feb, Generalized anxiety disorder F41.1 [facility] [address] [place] [id number] [place] [address] 25040- 9282 January, Unspecified infectious disease B99.9 [facility] [address] [place] [id number] [place] [address] [id number] January, Dental examination Z01.20 [facility] [address] [place] [id number] [place] [address] 50900- 9757 January, [facility] [address] [place] [id number] [place] [address] 93104- 6075 January, Diabetes type 2, uncontrolled E11.65 [facility] [address] [place] [id number] [place] [address] 25807 -9581 January, Wheezing R06.2 and History of pneumonia Z87.01 [facility] [address] [place] [id number] [place] [address] 60097- 4314 January, [facility] [address] [place] [id number] [place] [address] 51180- 5778 January, Depression, major, recurrent, moderate F33.1 [facility] [id number] [place] [address] 88579- 1178 January, [facility] [id number] [place] [address] 48956- 2271 January, Depression, major, recurrent, moderate F33.1 [facility] [id number] [place] [address] 61990- 6849 January, [facility] [id number] [place] [address] 85259- 7211 Dec, Depression, major, recurrent, moderate F33.1 [facility] [address] [id number] [address] 5[address] Dec, Dental examination Z01.20 [facility] [id number] [place] [address] [id number] Dec, Dental examination Z01.20 [facility] [address] [place] [id number] [place] [address] 55096- 0926 Dec, Generalized anxiety disorder F41.1 [facility] [address] [place] [id number] [place] [address] 30120- 1086 Dec, Generalized anxiety disorder F41.1 [facility] [address] [place] [id number] [place] [address] 95882- 0516 30 Nov, 2015 [facility] [address] [place] [id number] [place] [address] 05737- 3213 Nov, [facility] [address] [place] [id number] [place] [address] 30757- 7334 Nov, Generalized anxiety disorder F41.1 [facility] [id number] [place] [address] [id number] Nov, Dental examination Z01.20 [facility] [id number] [place] [address] 25647- 9961 Nov, [facility] [id number] [place] [address] 88526- 8979 Nov, Generalized anxiety disorder F41.1 and Autism spectrum F84.0 [facility] [id number] [place] [address] 58172- 3064 Nov, Depression, major, recurrent, moderate F33.1 [facility] [id number] [place] [address] 79655- 4672 Nov, [facility] [id number] [place] [address] 68597- 3901 Nov, Diabetes type 2, uncontrolled E11.65 and Hypertension I10 [facility] [id number] [place] [address] [id number] Nov, 2015 Dental examination Z01.20 [place] [address] [place] [id number] [place] [address] 30440- 9823 03 Nov, 2015 [facility] [address] [place] [id number] [place] [address] 19934- 0731 Nov, Depression, major, recurrent, moderate F33.1 [facility] [address] [place] [id number] [place] [address] 76371 -4051 Nov, Penile abrasion S30.812A [place] [address] [place] [id number] [place] [address] 83462- 8811 Oct, Generalized anxiety disorder F41.1 [place] [address] [place] [id number] [place] [address] 64525- 2550 Oct, Depression, major, recurrent, moderate F33.1 [place] [address] [place] [id number] [place] [address] 63223- 6245 Oct, Diabetes type 2, controlled E11.9 and Malaise R53.81 [place] [address] [place] [id number] [place] [address] 68274- 1115 Oct, [facility] [address] [place] [id number] [place] [address] 30078- 1763 16 Oct, 2015 [place] [address] [place] [id number] [place] [address] 67245- 4421 Oct, [facility] [address] [place] [id number] [place] [address] 89671- 7875 Oct, Depression, major, recurrent, moderate F33.1 [place] [address] [place] [id number] [place] [address] 87723- 0903 Oct, Generalized anxiety disorder F41.1 and Autism spectrum F84.0 [place] [address] [place] [id number] [place] [address] 79193- 0832 Oct, [facility] [address] [address]- 9204 Oct, Major depressive disorder, recurrent, moderate F33.1 [facility] [id number] [place] [address] 19487- 7522 Oct, [facility] [id number] [place] [address] 47676- 4082 Oct, [facility] [address] [place] [id number] [place] [address] 68175- 0175 Oct, Generalized anxiety disorder F41.1 [facility] [address] [place] [id number] [place] [address] 47762- 5208 Oct, [facility] [address] [place] [id number] [place] [address] 71898- 6638 Oct, Back muscle spasm M62.830 [facility] [address] [place] [id number] [place] [address] 91320- 9000 Oct, Major depressive disorder, recurrent, moderate F33.1 [facility] [id number] [place] [address] 14420 -1332 Sep, Back muscle spasm M62.830 ; Allergic rhinitis J30.9 and Person with feared health complaint in whom no diagnosis is made Z71.1 [facility] [id number] [place] [address] 48896- 9579 Sep, Generalized anxiety disorder F41.1 [facility] [address] [address] -6998 Sep, [facility] [address] [place] [id number] [place] [address] 66661- 4665 Sep, [facility] [id number] [place] [address] 88827- 6413 Sep, Mood disorder F39 ; Diabetes type 2, controlled E11.9 ; Morbid obesity due to excess calories E66.01 and Edema, unspecified type R60.9 [facility] [address] [address]- 1203 13 Sep, 2015 Generalized anxiety disorder F41.1 [facility] [address] [place] [id number] [place] [address] 35509- 6629 11 Sep, 2015 [facility] [address] [place] [id number] [place] [address] 45767- 9879 Sep, Adjustment disorder with mixed anxiety and depressed mood F43.23 and Depression F32.9 [facility] [address] [place] [id number] [place] [address] 25282- 9413 06 Sep, 2015 Generalized anxiety disorder F41.1 [facility] [address] [place] [id number] [place] [address] 93019- 7219 05 Sep, 2015 Generalized anxiety disorder 300.02 and Autism spectrum disorder F84.0 [facility] [address] [place] [address] [id number] [place] [address] [id number] Aug, Encounter for dental examination Z01.20 [facility] [address] [place] [id number] [place] [address] 62617- 0904 16 Aug, 2015 [facility] [address] [place] [id number] [place] [address] 77259 -4349 17 Jul, 2015 Candidiasis B37.9 [facility] [address] [place] [id number] [place] [address] 14219- 8702 13 Jul, 2015 [facility] [address] [place] [address] [id number] [place] [address] [id number] Jul, Encounter for dental examination Z01.20 [facility] [id number] [place] [address] 15570- 4770 02 Jul, 2015 [facility] [address] [place] [id number] [place] [address] 93916- 5214 08 Jun, 2015 [facility] [address] [place] [id number] [place] [address] 99448- 3196 30 May, 2015 Diabetes type 2, controlled 250.00 and Neuropathy 355.9 [place] [address] [place] [id number] [place] [address] 45388- 2157 May, [facility] [address] [place] [id number] [place] [address] 86910- 6580 Apr, Generalized anxiety disorder 300.02 and Autism spectrum disorder 299.00 [facility] [address] [place] [id number] [place] [address] 63728- 2569 Apr, Abrasion, foot 917.0 ; Chest pain 786.50 and Back pain 724.5 [facility] [address] 85598- 1276 Apr, Generalized anxiety disorder 300.02 [facility] [address] 43237- 8749 Feb, Anxiety state, unspecified 300.00 [facility] [address] 13995- 3825 Feb, Diabetes mellitus without mention of complication, type II or unspecified type, not stated as uncontrolled 250.00 ; Generalized anxiety disorder 300.02 ; Morbid obesity 278.01 ; Benign essential hypertension 401.1 ; Chronic pain 338.29 ; Screen for STD (sexually transmitted disease) V74.5 ; Dysuria 788.1 and Kelly infection of genital region 112.2 [facility] [address] [place] [id number] [place] [address] 74664- 5123 Feb, [facility] [address] [place] [id number] [place] [address] 49515- 9328 January, Generalized anxiety disorder 300.02 and Autism spectrum disorder 299.00 [facility] [address] [place] [id number] [place] [address] 81700- 4009 Dec, [facility] [address] [place] [id number] [place] [address] 14332- 3290 Dec, [facility] [address] [place] [id number] [place] [address] 95845- 3086 Dec, [facility] [address] [place] [address]- 2369 Nov, [facility] [place] [facility] [address] [id number] [place] [id number] Nov, [facility] [place] [facility] [address] [id number] [place] [address]- 2751 Nov, [facility] [place] [facility] [address] [id number] [place] [address]- 0650 Nov, [facility] [place] [facility] [address] [id number] [place] [id number] Nov, [facility] [place] [facility] [address] [id number] [place] 2487 Oct, [facility] [place] [facility] [address] [id number] [place] [address]- 7504 Jul, [facility] [place] [facility] [address] [id number] [place] [address]- 3118 Jul, [facility] [place] [facility] [address] [id number] [place] [address]- 5135 Jul, [facility] [place] [facility] [address] [id number] [place] [address]- 4361 Jul, [facility] [place] [facility] [address] [facility] [id number] [place] [address]- 3904 Jul, [facility] [place] [facility] [address] [id number] [place] [address]- 0287 Jul, [facility] [place] [facility] [address] [id number] [place] [address]- 1101 Jul, [facility] [place] [facility] [address] [id number] [place] [address]- 9896 Jul, [facility] [place] [facility] [address] [facility] [id number] [place] [address]- 2467 Jul, [facility] [place] [facility] [address] [facility] [id number] [place] [address]- 3465 Jul, [facility] [place] [facility] [address] [id number] [place] [address]- 9971 Jun, [facility] [place] [facility] [address] [id number] [place] [address]- 5004 Jun, [facility] [place] [facility] [address] [id number] [place] [address]- 9016 Jun, [facility] [place] [facility] [address] [id number] [place] [address]- 4184 Jun, [facility] [place] [facility] [address] [id number] [place] [address]- 0845 16 Jun, 2014 [facility] [place] [facility] [address] [id number] [place] [address]- 8533 Jun, [facility] [place] [facility] [address] [id number] [place] [address]- 3456 Jun, [facility] [place] [facility] [address] [id number] [place] [address]- 2099 30 May, 2013 [facility] [place] [facility] [address] [id number] [place] [address]- 9505 30 May, 2013 [facility] [place] [facility] [address] [id number] [place] [address]- 3826 12 May, 2013 [facility] [place] [facility] [address] [id number] [place] [address]- 8162 12 May, 2013 [facility] [place] [facility] [address] [id number] [place] [address]- 1378 10 May, 2013 [facility] [place] [facility] [address] [id number] [place] [address] 2548 10 May, 2013 [facility] [place] [facility] [address] [id number] [place] [address]- 2546 02 May, 2013 [facility] [place] [facility] [address] [id number] [place] [address]- 2546 02 May, 2013 [facility] [place] [facility] [address] [id number] [place] [address]- 7876 Apr, [facility] [place] [facility] [address] [id number] [place] [address]- 3129 Apr, [facility] [place] [facility] [address] [id number] [place] [address]- 7187 Apr, [facility] [place] [facility] [address] [id number] [place] [address]- 4594 Apr, [facility] [place] [facility] [address] [id number] [place] [address]- 5899 Apr, [facility] [place] [facility] [address] [id number] [place] [address]- 9008 Apr, [facility] [place] [facility] [address] [id number] [place] [address]- 0311 Apr, [facility] [place] [facility] [address] [id number] [place] [address]- 6476 Apr, [facility] [place] [facility] [address] [id number] [place] [address]- 7709 Apr, [facility] [place] [facility] [address] [id number] [place] [address]- 9494 Mar, [facility] [place] [facility] [address] [id number] [place] [address]- 8693 Mar, [facility] [place] [facility] [address] [id number] [place] [address]- 3538 Mar, [facility] [place] [facility] [address] [id number] [place] [address]- 8817 Mar, [facility] [place] [facility] [address] [id number] [place] [address]- 0078 Mar, [facility] [place] [facility] [address] [id number] [place] [address]- 3524 Mar, [facility] [place] [facility] [address] [id number] [place] [address]- 1759 Feb, [facility] [place] [facility] [address] [id number] [place] [address]- 4884 Feb, [facility] [place] [facility] [address] [id number] [place] [address]- 9897 Feb, [facility] [place] [facility] [address] [id number] [place] [address]- 4369 January, [facility] [place] [facility] [address] [id number] [place] [address]- 9695 January, [facility] [place] [facility] [address] [id number] [place] [address]- 7314 January, [facility] [place] [facility] [address] [id number] [place] [address]- 5427 January, [facility] [place] [facility] [address] [id number] [place] [address]- 7787 January, [facility] [place] [facility] [address] [id number] [place] [address]- 9932 January, [facility] [place] [facility] [address] [id number] [place] [address]- 8884 Dec, [facility] [place] [facility] [address] [id number] [place] [address]- 1362 Dec, [facility] [place] [facility] [address] [id number] [place] [address]- 4376 Dec, [facility] [place] [facility] [address] [id number] [place] [address]- 0141 Dec, [facility] [place] [facility] [address] [id number] [place] [address]- 3407 Nov, [facility] [place] [facility] [address] [id number] [place] [address]- 6986 Nov, [facility] [place] [facility] [address] [id number] [place] [address]- 6551 Oct, [facility] [place] [facility] [address] [id number] [place] 7000 Oct, [facility] [place] [facility] [address] [id number] [place] [address]- 9424 Sep, [facility] [address] [id number] [place] [address]- 2389 Sep, [facility] [address] [id number] [place] [address]- 9936 Aug, [facility] [place] [facility] [address] [id number] [place] [address]- 1643 Aug, [facility] [address] [id number] [place] [address]- 8620 Aug, [facility] [place] [facility] [address] [id number] [place] [address]- 7684 Jul, [facility] [address] [id number] [place] [address]- 2416 Jul, [facility] [address] [id number] [place] [address]- 0329 Jul, [facility] [address] [id number] [place] [address]- 5573 Jul, [facility] [address] [id number] [place] [address]- 3538 Jul, [facility] [place] [facility] [address] [id number] [place] [address]- 5741 May, [facility] [place] [facility] [address] [id number] [place] [address]- 1334 May, [facility] [place] [facility] [address] [id number] [place] [address]- 1875 Apr, [facility] [place] [facility] [address] [id number] [place] [address]- 8973 Apr, [facility] [place] [facility] [address] [id number] [place] [address]- 3763 Mar, [facility] [place] [facility] [address] [id number] [place] [address]- 2109 Mar, [facility] [address] [id number] [place] [address]- 7392 Mar, [facility] [place] [facility] [address] [id number] [place] 6849 Mar, [facility] [place] [facility] [address] [id number] [place] [address]- 2405 Feb, [facility] [place] [facility] [address] [id number] [place] [address]- 0693 Feb, [facility] [place] [facility] [address] [id number] [place] [address]- 4231 Feb, [facility] [place] [facility] [address] [id number] [place] [address]- 9585 Feb, [facility] [address] [id number] [place] [address]- 4237 Feb, [facility] [place] [facility] [address] [id number] [place] [address]- 3034 January, [facility] [place] [facility] [address] [id number] [place] [address]- 7731 January, [facility] [place] [facility] [address] [id number] [place] [address]- 7515 January, [facility] [place] [facility] [address] [id number] [place] [address]- 2238 January, [facility] [place] [facility] [address] [id number] [place] [address]- 0412 Dec, [facility] [place] [facility] [address] [id number] [place] [address]- 3827 Dec, [facility] [place] [facility] [address] [id number] [place] [address]- 6928 18 Dec, 2012 [facility] [place] [facility] [address] [id number] [place] [address]- 4488 Dec, [facility] [place] [facility] [address] [id number] [place] [address]- 9463 Nov, [facility] [address] [id number] [place] [address]- 9596 Nov, [facility] [address] [id number] [place] [address] Oct, [facility] [address] [id number] [place] [address] Aug, [facility] [address] [id number] [place] [address] Aug, [facility] [address] [id number] [place] [address] Dec, [facility] [address] [id number] [place] [address] Dec, [facility] [address] [id number] [place] [address] Dec, [facility] [address] [id number] [place] [address] Nov, [facility] [address] [id number] [place] [address] Nov, [facility] [address] [id number] [place] [address] Oct, [facility] [address] [id number] [place] [address] Oct, [facility] [address] [id number] [place] [address] Oct, [facility] [place] [facility] [address] [id number] [place] [address] Sep, [facility] [address] [id number] [place] [address] Sep, [facility] [address] [id number] [place] [address] 18 Sep, 2011 [facility] [address] [id number] [place] [address] 17 Sep, 2011 [facility] [place] [facility] [address] [id number] [place] [address] 12 Sep, 2011 [facility] [place] [facility] [address] [id number] [place] [address] 11 Sep, 2011 [facility] [place] [facility] [address] [id number] [place] [address] 10 Sep, 2011 [facility] [address] [id number] [place] [address] 09 Sep, 2011 [facility] [place] [facility] [address] [id number] [place] [address] 22 Jul, 2011 [facility] [place] [facility] [address] [id number] [place] [address] 15 Jul, 2011 [facility] [place] [facility] [address] [id number] [address] 15 Jul, 2011 [facility] [address] [id number] [place] [address] 14 Nov, 2010 [facility] [place] [facility] [address] [id number] [place] [address] 17 Aug, 2010 [facility] [place] [facility] [address] [id number], [place] [address] 17 Aug, 2010 [facility] [place] [facility] [address] [id number], [place] [address] 16 Aug, 2010 [facility] [place] [facility] [address] [id number] [place] [address] 15 Aug, 2010 [facility] [place] [facility] [address] [id number] [address] 09 Aug, 2010 [facility] [place] [facility] [address] [id number] [place] [address] 26 Jul, 2010 [facility] [place] [facility] [id number] [address] 12 Jun, 2010 [facility] [id number] [address] Jun, [facility] [id number] [address] Sep, [facility] [id number], [place] [address] Aug, [facility] [id number], [place] [address] Aug, [facility] [id number] [place] [address] Aug, [facility] [id number], [place] [address] Jun, [facility] [id number], [place] [address] Jun, [facility] [id number] [place] [address] May, [facility] [id number], [place] [address] Apr, [facility] [id number] [address] Mar, [facility] [id number], [place] [address] January, [facility] [address] [id number], [place] [address] Oct, IMMUNIZATIONS No Known Immunizations SOCIAL HISTORY Never Assessed REASON FOR VISIT Diabetes-ALEXIS smith PLAN OF CARE Activity Details Follow Up 4 Weeks Reason:diabetes uncontrolled VITAL SIGNS Height 70 in 2018-03-30 Weight 330.9 lbs 2018-03-30 Temperature 97.8 degrees Fahrenheit 2018-03-30 Heart Rate 100 bpm 2018-03-30 Respiratory Rate 20 2018-03-30 BMI 47.47 kg/m2 2018-03-30 Blood pressure systolic 122 mmHg 2018-03-30 Blood pressure diastolic 78 mmHg 2018-03-30 MEDICATIONS Medication Instructions Dosage Frequency Start Date End Date Duration Status NovoLog Flexpen 100 UNIT/ML Subcutaneous 3 times a day 60 u 8h Feb, Active Cinnamon 500 mg Orally Once a day 2 capsules 24h Active Glucometer test blood sugar 12h January, lifetime Active Fish Oil 1000 MG Orally twice a day 1 capsule 12h Active Propranolol HCl 40 mg Orally Twice a day 1 tablet 12h January, Active Levemir FlexTouch 100 UNIT/ML DX- E11.9 2 times a day 80 units 12h Feb, Active Test strips test blood sugar 12h January, 25 days Active Omeprazole 40 mg Orally Once a day 1 capsule 24h Apr, Active IBU 800 MG TAKE ONE TABLET BY MOUTH THREE TIMES DAILY 33 Active MetFORMIN HCl ER (MOD) 500 mg Orally 2 times a day 2 tablets 12h Active Meloxicam 7.5 MG Orally 2 times a day 1 tablet 12h Feb, 30 day( s) Active Lancets - test blood sugar 12h January, 25 days Active Prozac 40 MG Orally Once a day 1 capsule 24h Oct, Active HydrOXYzine HCl 10 MG Orally three times a day as needed 1 tablet Nov 30 days Active Lisinopril 20 mg Orally Once a day 1 tablet 24h Active Tresiba FlexTouch 200 UNIT/ML DX- E11.65 at bedtime Inject 160 units Mar, Active Amitriptyline HCl 50 mg Orally Once a day 1 tablet 24h Nov, Active M85-Akdzaj Active One Touch/One Touch II Starter Active Neurontin 800 MG Orally Three times a day 1.5 tablets 8h Oct, 30 day(s) Active Pen [place] 32G X 4 MM use with insulin pens for injection Feb, 30 days Active Depo-Testosterone 100 MG/ML Intramuscular once monthly 1 ml Mar, Active Actos 45 MG Orally Once a day 1 tablet 24h Nov, 30 day(s) Active RESULTS Name Result Date Reference Range TESTOSTERONE, TOTAL 2018-03-30 TESTOSTERONE, TOTAL, MALES (ADULT), [place] [phone] PROCEDURES Procedure Date Ordered Result Body Site ASSAY OF TOTAL TESTOSTERONE March 30, 2018 VENIPUNCT, ROUTINE* March 30, 2018 INSTRUCTIONS MEDICATIONS ADMINISTERED No Known Medications [...] Hospitalization History celluitis of the left upper thigh-[facility] 04/2017 Hospitalization History [facility]-inpatient psych 4 day stay 2013 Hospitalization History [facility]- Shaking, unsure of blood sugar level 11/20/2017
--- OUTSIDE RECORDS SUMMARY | 2018-07-05 10:53 | XMS REPORT ---
Author Author NERISSA MARTINEZ [facility] Address [address] [place] [address] Care Team Providers Care Drop Wire Builder Name Role Phone NERISSA MARTINEZ Unavailable PROBLEMS Type Condition ICD9-CM Code KUE68-UH Code Onset Dates Condition Status SNOMED Code Problem Other male erectile dysfunction N52.8 Active 044393017 Problem Diabetes type 2, controlled E11.9 Active 90032066 Problem Obesity, unspecified E66.9 Active 286009899 Problem Gastro-esophageal reflux disease with esophagitis K21.0 Active 293591933 Problem Insomnia, unspecified G47.00 Active 779273092 Problem Anxiety F41.9 Active 68167498 Problem Autism spectrum F84.0 Active 69097551 Problem Hypertriglyceridemia E78.1 Active 466111623 Problem Generalized anxiety disorder F41.1 Active 75720928 Problem Chronic fatigue R53.82 Active 19943928 Problem Type 2 diabetes mellitus 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 E11.9 Active 775726253 Problem BMI 45.0-49.9, adult Z68.42 Active 301211546 Problem Other chronic pain G89.29 Active 06604491 Problem Morbid obesity due to excess calories E66.01 Active 926947348 Problem Type 2 diabetes mellitus with hyperglycemia E11.65 Active 205288763 Problem Hypertension I10 Active 71882293 Problem Diabetes type 2, uncontrolled E11.65 Active 509748082 Problem Mild episode of recurrent major depressive disorder F33.0 Active 755070641 Problem Type 2 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 Active 35187061 Problem Hypogonadism in male E29.1 Active 16498105 Problem Seasonal allergies J30.2 Active 062054965 Problem Controlled type 2 diabetes mellitus without complication, without long -term current use of insulin E11.9 Active 779644840 Problem Diabetic polyneuropathy associated with type 2 diabetes mellitus E11.42 Active 96340693 Problem Polyneuropathy G62.9 Active 53325499 Problem 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 Active 149800288 Problem retirement 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.4 Active 343738945 Problem Diverticulitis of small intestine without perforation or abscess without bleeding K57.12 Active 85138988 Problem GERD without esophagitis K21.9 Active 351665037 Problem Type 2 diabetes mellitus with hyperglycemia E11.65 Active 298449877 ALLERGIES No Information ENCOUNTERS Encounter Location Date Diagnosis [facility] [id number] [place] [address] 36687- 7671 May, [facility] [address] 62967- 4655 May, [facility] [id number] [place] [address] 89030 -8779 Apr, Colitis K52.9 ; Abdominal discomfort R10.9 and Anxiety F41.9 [place] [id number] [place] [address] 23563- 9552 Apr, [facility] [address] 15514- 3297 Apr, Colitis K52.9 and BMI 45.0-49.9, adult Z68.42 [place] [id number] [place] [address] 08014- 6500 Apr, Diabetes type 2, uncontrolled E11.65 [facility] [id number] [place] [address] 70508- 8877 Apr, Autism spectrum F84.0 ; Generalized anxiety disorder F41.1 and BMI 45.0-49.9, adult Z68.42 [facility] [id number] [place] [address] 63915- 7678 Apr, [place] [address] 35596- 0710 Apr, BMI 45.0-49.9, adult Z68.42 [place] [id number] [place] [address] 41565- 0972 Apr, Candidiasis B37.9 ; Pain in right shoulder M25.511 ; Pain in left shoulder M25.512 ; Other chronic pain G89.29 and Morbid obesity due to excess calories E66.01 [place] [id number] [place] [address] 74306- 3449 Apr, Hypogonadism in male E29.1 [facility] [id number] [place] [address] 18427 -9564 Mar, Yeast dermatitis B37.2 and Sensation of foreign body in throat R09.89 [place] [id number] [place] [address] 74176- 5043 Mar, [place] [id number] [place] [address] 54369- 6361 Mar, Hypogonadism in male E29.1 [place] [id number] [place] [address] 07676- 1786 Mar, Hypogonadism in male E29.1 [place] [address] 96117- 2250 Mar, [place] [id number] [place] [address] 72852- 5849 Mar, Diabetes type 2, uncontrolled E11.65 and Hypogonadism in male E29.1 [place] [id number] [place] [address] 62995- 8887 Mar, [place] [id number] [place] [address] 61497- 6440 Feb, Diabetes type 2, controlled E11.9 ; Myalgia M79.1 and BMI 45.0-49.9, adult Z68.42 [facility] [id number] [place] [address] 71183 -0092 Feb, Hematuria, unspecified type R31.9 ; Side pain R10.9 and Rash R21 [place] [id number] [place] [address] 08416- 2621 January, [place] [id number] [place] [address] 23317- 5122 January, [facility] [id number] [place] [address] 68010- 2753 January, [facility] [id number] [place] [address] 49047 -0303 January, Seasonal allergies J30.2 and BMI 45.0-49.9, adult Z68.42 [place] [id number] [place] [address] 60225- 6458 January, Chronic fatigue R53.82 ; Mild episode of recurrent major depressive disorder F33.0 and Polyneuropathy G62.9 [place] [address] 44964- 7941 January, Chronic fatigue R53.82 ; BMI 45.0-49.9, adult Z68.42 and Anxiety F41.9 [place] [id number] [place] [address] 58704- 0738 January, Generalized anxiety disorder F41.1 [place] [id number] [place] [address] 26135- 9851 Dec, Autism spectrum F84.0 ; Generalized anxiety disorder F41.1 ; High risk medication use Z79.899 and BMI 45.0-49.9, adult Z68.42 [place] [id number] [place] [address] 92285- 6456 Dec, [facility] [id number] [place] [address] [id number] 17 Dec, 2017 Encounter for dental examination Z01.20 [place] [id number] [place] [address] 91057- 3035 Dec, Mild episode of recurrent major depressive disorder F33.0 ; Type 2 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 and 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 coordinator 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.4 [place] [id number] [place] [address] 26454- 4585 Nov, [place] [address] [address]- 2255 Nov, BMI 45.0-49.9, adult Z68.42 ; Autism spectrum F84.0 and Generalized anxiety disorder F41.1 [facility] [address] [address]- 1799 Nov, Type 2 diabetes mellitus 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 E11.9 and 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 coordinator 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.4 [facility] [address] [place] [address] [id number] Oct, Dental examination Z01.20 and Dental caries K02.9 [facility] [id number] [place] [address] 89597- 0331 Oct, [facility] [id number] [place] [address] 79503- 8561 Oct, BMI 45.0-49.9, adult Z68.42 ; Autism spectrum F84.0 and Generalized anxiety disorder F41.1 [facility] [address] [place] [address] 60528- 9264 Oct, [facility] [id number] [place] [address] 10907- 3360 Oct, [facility] [address] [place] [address] 55793- 9515 Oct, Hypertriglyceridemia E78.1 [facility] [address] [place] [address] 11858- 4390 Oct, Hypertriglyceridemia E78.1 [facility] [address] [place] [address] 29677- 5915 Sep, Controlled type 2 diabetes mellitus without complication, without long-term current use of insulin E11.9 [facility] [address] [address]- 7698 Sep, [facility] [address] [place] [address] 26026- 7450 Sep, Controlled type 2 diabetes mellitus without complication, without long-term current use of insulin E11.9 [place] [id number] [place] [address] 01160- 9990 Sep, [place] [id number] [place] [address] 03753- 3801 Sep, [place] [id number] [place] [address] 06867- 4907 Sep, BMI 45.0-49.9, adult Z68.42 ; Diabetic polyneuropathy associated with type 2 diabetes mellitus E11.42 and Chronic fatigue R53.82 [place] [id number] [place] [address] 26851- 3610 Sep, [place] [id number] [place] [address] 20794- 7522 Sep, Hypertriglyceridemia E78.1 [place] [id number] [place] [address] 61764- 0140 Aug, [place] [id number] [place] [address] 01028- 2001 Aug, Generalized anxiety disorder F41.1 [place] [id number] [place] [address] 86856- 3355 Aug, [place] [id number] [place] [address] 16979- 8152 Aug, Hypertriglyceridemia E78.1 [place] [id number] [place] [address] 40845- 4581 Jul, [place] [id number] [place] [address] 93410- 8993 Jul, [place] [id number] [place] [address] 99688- 9818 Jul, Generalized anxiety disorder F41.1 ; Autism spectrum F84.0 ; BMI 45.0-49.9, adult Z68.42 and Patient's noncompliance with other medical treatment and regimen Z91.19 [place] [id number] [place] [address] 54075- 7306 Jul, Diabetes type 2, uncontrolled E11.65 ; Diabetic polyneuropathy associated with type 2 diabetes mellitus E11.42 ; Abdominal pain , right upper quadrant R10.11 and Low back pain radiating to left lower extremity M54.5 [place] [address] 16067- 4850 Jul, Generalized anxiety disorder F41.1 [place] [id number] [place] [address] 29187- 4482 Jul, [place] [address] 08408- 1515 Jul, Hypertriglyceridemia E78.1 [place] [id number] [place] [address] 42219- 0622 Jul, Controlled type 2 diabetes mellitus without complication, without long-term current use of insulin E11.9 [place] [id number] [place] [address] 13282- 9717 Jun, [place] [address] 78533- 3251 Jun, Hypertriglyceridemia E78.1 [place] [id number] [place] [address] 36550- 4900 Jun, Controlled type 2 diabetes mellitus without complication, without long-term current use of insulin E11.9 [place] [id number] [place] [address] 64443- 2389 Jun, Generalized anxiety disorder F41.1 [place] [address] 74337- 4236 Jun, Candidiasis B37.9 [facility] [id number] [place] [address] 86111- 8526 May, [place] [address] 69240- 1504 18 May, 2017 Controlled type 2 diabetes mellitus without complication, without long-term current use of insulin E11.9 [facility] [id number] [place] [address] 53398- 4946 14 May, 2017 Hypertriglyceridemia E78.1 [facility] [id number] [place] [address] 86937- 8304 14 May, 2017 Hypertriglyceridemia E78.1 [facility] [id number] [place] [address] 43198- 7697 14 May, 2017 Hypertriglyceridemia E78.1 and Hypotestosteronemia E34.9 [place] [id number] [place] [address] 33130- 3691 14 May, 2017 Generalized anxiety disorder F41.1 [place] [id number] [place] [address] 38314- 6141 05 May, 2017 [facility] [id number] [place] [address] 58935 -1203 03 May, 2017 Abscess and cellulitis L03.90 [facility] [id number] [place] [address] [id number] Apr, [facility] [id number] [place] [address] 25297- 2129 Apr, [facility] [id number] [place] [address] 02663- 3274 Apr, Dermatofibroma of back D23.5 [facility] [id number] [place] [address] 64414 -8739 Apr, Muscle strain of left thigh, initial encounter S76.912A [facility] [address] 89246- 1280 Apr, [facility] [id number] [place] [address] 99594- 5860 Apr, Generalized anxiety disorder F41.1 [facility] [id number] [place] [address] 43247- 9111 Apr, Polyneuropathy G62.9 [facility] [address] [place] [address] 98662- 5654 Apr, GERD without esophagitis K21.9 [facility] [address] [place] [address] 62110- 9150 Apr, Generalized anxiety disorder F41.1 ; Diastasis recti M62.08 and Controlled type 2 diabetes mellitus without complication, without long-term current use of insulin E11.9 [facility] [address] [place] [address] 17735- 3046 Apr, Generalized anxiety disorder F41.1 ; Autism spectrum F84.0 and Controlled type 2 diabetes mellitus without complication, without long-term current use of insulin E11.9 [place] [address] [place] [address] 80601- 3414 Mar, Generalized anxiety disorder F41.1 ; Diastasis recti M62.08 and Controlled type 2 diabetes mellitus without complication, without long-term current use of insulin E11.9 [facility] [address] [place] [address] 84817- 9507 Mar, Controlled type 2 diabetes mellitus without complication, without long-term current use of insulin E11.9 [place] [address] [address]- 5956 Mar, Generalized anxiety disorder F41.1 [facility] [id number] [place] [address] 66324- 0482 Mar, Generalized anxiety disorder F41.1 [facility] [address], [place] [address]- 9376 Mar, Generalized anxiety disorder F41.1 [facility] [id number] [place] [address] 59979- 3841 Mar, Generalized anxiety disorder F41.1 [facility] [address] [place] [address] 67132- 3088 Feb, Controlled type 2 diabetes mellitus without complication, without long-term current use of insulin E11.9 [facility] [id number] [place] [address] 89067- 1563 Feb, Controlled type 2 diabetes mellitus without complication, without long-term current use of insulin E11.9 and Tinea cruris B35.6 [facility] [id number] [place] [address] 75480- 0239 Feb, Diabetes type 2, controlled E11.9 [facility] [id number] [place] [address] [id number] Feb, Dental examination Z01.20 [facility] [address] 57472- 8297 Feb, Dental examination Z01.20 [facility] [id number] [place] [address] 11512- 0005 Feb, Generalized anxiety disorder F41.1 [facility] [id number] [place] [address] 93381 -0228 Feb, Muscle spasm M62.838 and Diabetes type 2, controlled E11.9 [facility] [id number] [place] [address] 14641- 7022 Feb, Type 2 diabetes mellitus with hyperglycemia E11.65 [facility] [id number] [place] [address] [id number] Feb, Dental examination Z01.20 [facility] [id number] [place] [address] [id number] Feb, Encounter for dental examination Z01.20 [facility] [id number] [place] [address] 55234- 9920 Feb, Diabetes type 2, controlled E11.9 [facility] [id number] [place] [address] 18933- 8025 Feb, Type 2 diabetes mellitus with hyperglycemia E11.65 [facility] [id number] [place] [address] 20747- 7437 Feb, [place] [id number] [place] [address] 68996- 5055 Feb, Controlled type 2 diabetes mellitus without complication, without long-term current use of insulin E11.9 [place] [id number] [place] [address] 52487- 9111 January, Candidiasis B37.9 [place] [id number] [place] [address] 77814- 0794 January, Type 2 diabetes mellitus with hyperglycemia E11.65 ; Hypertension I10 and Anxiety F41.9 [place] [id number] [place] [address] 358708- 5984 January, Type 2 diabetes mellitus with hyperglycemia E11.65 [place] [id number] [place] [address] 17616- 7716 January, Controlled type 2 diabetes mellitus without complication, without long-term current use of insulin E11.9 [place] [id number] [place] [address] 21232- 6103 January, Generalized anxiety disorder F41.1 ; Autism spectrum F84.0 ; Foot callus L84 and Controlled type 2 diabetes mellitus without complication, without long-term current use of insulin E11.9 [place] [address] [place] [address] 61605- 6876 Dec, [place] [id number] [place] [address] 57042- 4134 Dec, [place] [id number] [place] [address] 64678- 6489 Dec, Foot callus L84 and Rash R21 [place] [id number] [place] [address] 73371- 4936 Dec, Controlled type 2 diabetes mellitus without complication, without long-term current use of insulin E11.9 [place] [id number] [place] [address] 96914- 4002 Nov, [facility] [address], [place] [address] -4461 Nov, Sore throat J02.9 and Strep pharyngitis J02.0 [facility] [address] [place] [address] 20433- 3704 Nov, Generalized anxiety disorder F41.1 [place] [id number] [place] [address] 20414- 3756 Nov, [place] [id number] [place] [address] 05378- 7441 Nov, [place] [id number] [place] [address] 81406- 5991 Nov, Type 2 diabetes mellitus with hyperglycemia E11.65 [place] [id number] [place] [address] 14770- 7994 Nov, Diabetes type 2, uncontrolled E11.65 and Localized edema R60.0 [place] [id number] [place] [address] 90820- 3580 Nov, Controlled type 2 diabetes mellitus without complication, without long-term current use of insulin E11.9 [place] [id number] [place] [address] 47718- 5577 Oct, Generalized anxiety disorder F41.1 and Autism spectrum F84.0 [place] [id number] [place] [address] 51072- 3686 Oct, [place] [id number] [place] [address] 63356- 0610 Oct, Type 2 diabetes mellitus with hyperglycemia E11.65 [place] [id number] [place] [address] 18840- 2801 Oct, Type 2 diabetes mellitus with hyperglycemia E11.65 and 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 coordinator 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.4 [place] [id number] [place] [address] 69285- 3943 Oct, [facility] [address] [address]- 5502 Oct, [facility] [id number] [place] [address] [id number] Oct, Encounter for dental examination Z01.20 [facility] [id number] [place] [address] 86060- 3698 Sep, [place] [id number] [place] [address] 83126- 3924 Sep, Diabetes type 2, controlled E11.9 [facility] [place] [id number] [place] [address] 82167 -7815 Sep, Abdominal pain R10.9 and Diverticulitis of small intestine without perforation or abscess without bleeding K57.12 [place] [id number] [place] [address] 97410- 2718 Sep, [place] [id number] [place] [address] 82611- 1754 Sep, Diabetes type 2, controlled E11.9 [place] [id number] [place] [address] 81628- 2831 Sep, Controlled type 2 diabetes mellitus without complication, without long-term current use of insulin E11.9 [place] [address] [place] [address] 58087- 5368 Sep, Type 2 diabetes mellitus 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 E11.9 and retirement 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.4 [facility] [address] [place] [address] 70188 -1950 Aug, Lower abdominal pain R10.30 ; GERD without esophagitis K21.9 and Candidiasis of skin B37.2 [place] [address] [place] [address] 06749- 7956 Aug, Controlled type 2 diabetes mellitus without complication, without long-term current use of insulin E11.9 and Diabetic polyneuropathy associated with type 2 diabetes mellitus E11.42 [facility] [address] [address] -1224 29 Jul, 2016 Kelly infection of genital region B37.49 and Diabetes type 2, controlled E11.9 [facility] [address], [place] [address]- 1003 10 Jul, 2016 Controlled type 2 diabetes mellitus without complication, without long-term current use of insulin E11.9 ; 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 and Acute pharyngitis due to other specified organisms J02.8 [facility] [address] [address] -3052 09 Jul, 2016 Acute upper respiratory infection, unspecified J06.9 and Other viral agents as the cause of diseases classified elsewhere B97.89 [facility] [address] [address]- 5347 Jun, Generalized anxiety disorder F41.1 [place] [id number] [place] [address] 72276- 9312 14 Jun, 2016 [place] [address] [place] [id number] [place] [address] Jun, Diabetes type 2, controlled E11.9 and Polyneuropathy G62.9 [facility] [id number] [place] [address] 28 May, 2016 [place] [id number] [place] [address] 28 May, 2016 Generalized anxiety disorder F41.1 [facility] [id number] [place] [address] 15 May, 2016 Polyneuropathy G62.9 [place] [address] [place] [id number] [place] [address] 13 May, 2016 [place] [id number] [place] [address] Apr, Anxiety disorder, unspecified F41.9 [place] [address] [place] [address] [address] Mar, Abdominal pain, unspecified abdominal location R10.9 ; Type 2 diabetes mellitus with hyperglycemia E11.65 ; retirement 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.4 and Diabetic polyneuropathy associated with type 2 diabetes mellitus E11.42 [place] [address] [address] Mar, Generalized anxiety disorder F41.1 [place] [address] [address] Mar, Generalized abdominal pain R10.84 and Other male erectile dysfunction N52.8 [facility] [place] [address] [address] [address] [address] Mar, [place] [address] 20114- 7767 Feb, Generalized anxiety disorder F41.1 [place] [address] 87324- 4362 Feb, Abdominal cramping R10.9 ; Acute bilateral low back pain without sciatica M54.5 and Malaise R53.81 [facility] [place] [address] [address]23 Feb, Candidiasis B37.9 and Costochondritis M94.0 [facility] [place] [address] [address]15 Feb, Allergic rhinitis, unspecified allergic rhinitis type J30.9 [place] [address] 16375- 3068 Feb, Generalized anxiety disorder F41.1 [place] [address] 96525- 1072 Feb, [place] [address] 07844- 9384 Feb, Major depressive disorder, recurrent, moderate F33.1 [place] [address] [place] [address] 1197 Feb, Generalized anxiety disorder F41.1 [facility] [address] 84675- 4393 January, Unspecified infectious disease B99.9 [facility] [address] [place] [id number] [place] [address] [id number] January, Dental examination Z01.20 [facility] [address] 29568- 8120 17 Jan, 2016 [facility] [address] 87876- 5788 January, Diabetes type 2, uncontrolled E11.65 [facility] [address] 28489 -1229 January, Wheezing R06.2 and History of pneumonia Z87.01 [facility] [address] 73734- 4592 January, [facility] [address] 04844- 7969 January, Depression, major, recurrent, moderate F33.1 [facility] [address] 32831- 9658 January, [facility] [address] [place] [id number] [place] [address] 18934- 9211 January, Depression, major, recurrent, moderate F33.1 [facility] [address] [place] [id number] [place] [address] 80443- 1766 January, [facility] [address] 50584- 5709 Dec, Depression, major, recurrent, moderate F33.1 [facility] [address] [place] [id number] [place] [address] 99234- 3868 Dec, Dental examination Z01.20 [facility] [address] [place] [id number] [place] [address] [id number] Dec, Dental examination Z01.20 [facility] [address] [place] [address] 87634- 6467 08 Dec, 2015 Generalized anxiety disorder F41.1 [facility] [address] [address] 1396 Dec, Generalized anxiety disorder F41.1 [facility] [address] [place] [id number] [place] [address] 84129- 1309 30 Nov, 2015 [facility] [address] [place] [address] 28119- 0470 Nov, [facility] [address] [place] [id number] [place] [address] 52684- 6826 Nov, Generalized anxiety disorder F41.1 [facility] [address] [place] [address] [id number] Nov, Dental examination Z01.20 [facility] [address] [place] [address] 80585- 1013 Nov, [facility] [address] [place] [id number] [place] [address] 98576- 1955 Nov, Generalized anxiety disorder F41.1 and Autism spectrum F84.0 [facility] [address] [address] 7762 Nov, Depression, major, recurrent, moderate F33.1 [facility] [address] [address] 5528 Nov, [facility] [address] [place] [address] 17222- 5412 Nov, Diabetes type 2, uncontrolled E11.65 and Hypertension I10 [facility] [address] [id number] 14 Nov, 2015 Dental examination Z01.20 [facility] [address] [place] [address] 89084- 5045 Nov, [facility] [address] [place] [id number] [place] [address] 92130- 2779 Nov, Depression, major, recurrent, moderate F33.1 [facility] [address] [place] [id number] [place] [address] 71884 -6997 Nov, Penile abrasion S30.812A [facility] [address] 39187- 2221 Oct, Generalized anxiety disorder F41.1 [facility] [address] [place] [id number] [place] [address] 46784- 0888 Oct, Depression, major, recurrent, moderate F33.1 [place] [address] [place] [id number] [place] [address] 98008- 8414 Oct, Diabetes type 2, controlled E11.9 and Malaise R53.81 [facility] [address] 61673- 5943 Oct, [facility] [address] [place] [id number] [place] [address] 21126- 4481 Oct, [facility] [address] [place] [id number] [place] [address] 77036- 1388 Oct, [facility] [address] [place] [id number] [place] [address] 71897- 8466 Oct, Depression, major, recurrent, moderate F33.1 [facility] [address] [place] [id number] [place] [address] 62814- 8263 Oct, Generalized anxiety disorder F41.1 and Autism spectrum F84.0 [facility] [address] 67698- 3489 Oct, [facility] [address] [place] [id number] [place] [address] 85296- 3273 08 Oct, 2015 Major depressive disorder, recurrent, moderate F33.1 [facility] [address] [place] [address]- 4995 Oct, [facility] [address] [place] [id number] [place] [address] 89996- 6419 Oct, [facility] [address] [place] [id number] [place] [address] 03977- 7921 Oct, Generalized anxiety disorder F41.1 [facility] [address] [place] [id number] [place] [address] 87362- 0287 Oct, [facility] [address] [place] [id number] [place] [address] 16101- 7392 Oct, Back muscle spasm M62.830 [place] [address] [place] [id number] [place] [address] 94896- 1469 Oct, Major depressive disorder, recurrent, moderate F33.1 [facility] [address] [place] [id number] [place] [address] 32165 -3356 Sep, Back muscle spasm M62.830 ; Allergic rhinitis J30.9 and Person with feared health complaint in whom no diagnosis is made Z71.1 [facility] [address] [place] [id number] [place] [address] 52000- 9748 Sep, Generalized anxiety disorder F41.1 [facility] [address] [place] [id number] [place] [address] 34239 -4758 Sep, [facility] [address] [place] [id number] [place] [address] 18934- 2106 Sep, [facility] [address] [place] [id number] [place] [address] 85728- 2591 13 Sep, 2015 Mood disorder F39 ; Diabetes type 2, controlled E11.9 ; Morbid obesity due to excess calories E66.01 and Edema, unspecified type R60.9 [facility] [address] [place] [address] 60390- 4808 13 Sep, 2015 Generalized anxiety disorder F41.1 [facility] [address] [place] [id number] [place] [address] 58394- 3227 Sep, [facility] [address] [place] [address] 50008- 9940 Sep, Adjustment disorder with mixed anxiety and depressed mood F43.23 and Depression F32.9 [facility] [address] [place] [address] 72072- 9345 06 Sep, 2015 Generalized anxiety disorder F41.1 [facility] [address] [place] [id number] [place] [address] 17061- 3005 Sep, Generalized anxiety disorder 300.02 and Autism spectrum disorder F84.[address] [id number] [id number] Aug, Encounter for dental examination Z01.20 [facility] [address] [place] [id number] [place] [address] 41400- 7229 16 Aug, 2015 [facility] [address] [place] [id number] [place] [address] 01372 -1887 17 Jul, 2015 Candidiasis B37.9 [facility] [address] [place] [id number] [place] [address] 56934- 0522 Jul, [address] [id number] [id number] Jul, Encounter for dental examination Z01.20 [facility] [address] [place] [address] 55581- 6242 02 Jul, 2015 [facility] [address] [place] [id number] [place] [address] 31059- 2168 08 Jun, 2015 [facility] [address] [place] [id number] [place] [address] 45995- 5174 30 May, 2015 Diabetes type 2, controlled 250.00 and Neuropathy 355.9 [facility] [address] [place] [id number] [place] [address] 14233- 7230 16 May, 2015 [facility] [address] [place] [id number] [place] [address] 52157- 9894 Apr, Generalized anxiety disorder 300.02 and Autism spectrum disorder 299.00 [facility] [address] [place] [address] 33127- 2461 Apr, Abrasion, foot 917.0 ; Chest pain 786.50 and Back pain 724.5 [facility] [address] [place] [address] 82401- 8970 Apr, Generalized anxiety disorder 300.02 [facility] [address] [place] [id number] [place] [address] 58715- 7971 Feb, Anxiety state, unspecified 300.00 [facility] [address] [place] [id number] [place] [address] 57114- 4188 Feb, Diabetes mellitus without mention of complication, type II or unspecified type, not stated as uncontrolled 250.00 ; Generalized anxiety disorder 300.02 ; Morbid obesity 278.01 ; Benign essential hypertension 401.1 ; Chronic pain 338.29 ; Screen for STD (sexually transmitted disease) V74.5 ; Dysuria 788.1 and Kelly infection of genital region 112.2 [facility] [address] [place] [address] 27191- 1216 Feb, [facility] [address] [place] [id number] [place] [address] 40047- 2035 January, Generalized anxiety disorder 300.02 and Autism spectrum disorder 299.00 [facility] [address] [place] [address] 32409- 2918 Dec, [facility] [address] [place] [address] 94003- 2420 Dec, [facility] [address] [place] [address] 16192- 7999 Dec, [facility] [address] [place] [address] 22976- 1123 Nov, [facility] [address] [id number] Nov, [facility] [address] [place] [id number] [place] [address]- 9184 Nov, [facility] [address] [id number] [place] [address]- 4693 Nov, [facility] [place] [facility] [address] [id number] [place] [id number] Nov, [facility] [place] [facility] [address] [id number] [place] [address]- 0677 Oct, [facility] [place] [facility] [address] [id number] [place] [address]- 0149 Jul, [facility] [place] [facility] [address] [id number] [place] [address]- 4512 Jul, [facility] [place] [facility] [address] [id number] [place] [address]- 0349 Jul, [facility] [place] [facility] [address] [id number] [place] [address]- 9874 Jul, [facility] [place] [facility] [address] [id number] [place] [address]- 8091 Jul, [facility] [place] [facility] [address] [id number] [place] [address]- 1593 Jul, [facility] [place] [facility] [address] [id number] [place] [address]- 0735 Jul, [facility] [place] [facility] [address] [id number] [place] [address]- 6748 Jul, [facility] [place] [facility] [address] [id number] [place] [address]- 4119 Jul, [facility] [place] [facility] [address] [id number] [place] [address]- 1462 Jul, [facility] [place] [facility] [address] [id number] [place] [address]- 7878 Jun, [facility] [place] [facility] [address] [id number] [place] [address]- 7869 Jun, [facility] [place] [facility] [address] [id number] [place] [address]- 8801 Jun, [facility] [place] [facility] [address] [id number] [place] [address]- 7299 20 Jun, 2014 [facility] [place] [facility] [address] [id number] [place] [address]- 9077 16 Jun, 2014 [facility] [place] [facility] [address] [id number] [place] [address]- 4635 Jun, [facility] [place] [facility] [address] [id number] [place] [address]- 4933 Jun, [facility] [place] [facility] [address] [id number] [place] [address]- 0569 30 May, 2014 [facility] [place] [facility] [address] [id number] [place] [address]- 8348 30 May, 2014 [facility] [place] [facility] [address] [id number] [place] [address]- 3721 12 May, 2014 [facility] [place] [facility] [address] [id number] [place] [address]- 7316 12 May, 2014 [facility] [place] [facility] [address] [id number] [place] [address]- 9555 May, [facility] [place] [facility] [address] [id number] [place] [address]- 0082 May, [facility] [place] [facility] [address] [id number] [place] [address]- 0306 May, [facility] [place] [facility] [address] [id number] [place] [address]- 1332 May, [facility] [place] [facility] [address] [id number] [place] [address]- 5032 Apr, [facility] [place] [facility] [address] [id number] [place] [address]- 9577 Apr, [facility] [place] [facility] [address] [id number] [place] [address]- 5530 Apr, [facility] [place] [facility] [address] [id number] [place] [address]- 9502 Apr, [facility] [place] [facility] [address] [id number] [place] [address]- 3716 Apr, [facility] [place] [facility] [address] [id number] [place] [address]- 2828 Apr, [facility] [place] [facility] [address] [id number] [place] [address]- 9734 Apr, [facility] [place] [facility] [address] [id number] [place] [address]- 6056 Apr, [facility] [place] [facility] [address] [id number] [place] [address]- 9954 Apr, [facility] [place] [facility] [address] [id number] [place] [address]- 7531 Mar, [facility] [place] [facility] [address] [id number] [place] [address]- 5028 Mar, [facility] [place] [facility] [address] [id number] [place] [address]- 7571 Mar, [facility] [place] [facility] [address] [id number] [place] [address]- 4562 Mar, [facility] [place] [facility] [address] [id number] [place] [address]- 9623 Mar, [facility] [place] [facility] [address] [id number] [place] [address]- 5564 Mar, [facility] [place] [facility] [address] [id number] [place] [address]- 9025 Feb, [facility] [place] [facility] [address] [id number] [place] [address]- 1896 Feb, [facility] [place] [facility] [address] [id number] [place] [address]- 3604 Feb, [facility] [place] [facility] [address] [id number] [place] [address]- 6841 January, [facility] [address] [id number] [place] [address]- 8251 January, [facility] [place] [facility] [address] [id number] [place] [address]- 4826 January, [facility] [place] [facility] [address] [id number] [place] [address]- 3970 January, [facility] [place] [facility] [address] [id number] [place] [address]- 9690 January, [facility] [place] [facility] [address] [id number] [place] [address]- 7430 January, [facility] [place] [facility] [address] [id number] [place] [address]- 2543 Dec, [facility] [place] [facility] [address] [id number] [place] [address]- 9942 Dec, [facility] [place] [facility] [address] [id number] [place] [address]- 4238 Dec, [facility] [place] [facility] [address] [id number] [place] [address]- 4274 Dec, [facility] [place] [facility] [address] [id number] [place] [address]- 0817 Nov, [facility] [place] [facility] [address] [id number] [place] [address]- 2536 Nov, [facility] [place] [facility] [address] [id number] [place] [address]- 5880 Oct, [facility] [place] [facility] [address] [id number] [place] [address]- 8866 Oct, [facility] [place] [facility] [address] [id number] [place] [address]- 6781 Sep, [facility] [place] [facility] [address] [id number] [place] [address]- 6101 Sep, [facility] [address] [id number] [place] [address]- 4117 Aug, [facility] [place] [facility] [address] [id number] [place] [address]- 9302 Aug, [facility] [place] [facility] [address] [id number] [place] [address]- 3843 Aug, [facility] [place] [facility] [address] [id number] [place] [address]- 8204 Jul, [facility] [place] [facility] [address] [id number] [place] [address]- 3350 Jul, [facility] [place] [facility] [address] [id number] [place] [address]- 0312 Jul, [facility] [place] [facility] [address] [id number] [place] [address]- 5378 Jul, [facility] [place] [facility] [address] [id number] [place] [address]- 2664 Jul, [facility] [place] [facility] [address] [id number] [place] [address]- 2914 May, [facility] [place] [facility] [address] [id number] [place] [address]- 8962 May, [facility] [place] [facility] [address] [id number], [place] [address]- 5646 Apr, [facility] [place] [facility] [address] [id number], [place] [address]- 2891 Apr, [facility] [place] [facility] [address] [id number] [place] [address]- 7260 Mar, [facility] [place] [facility] [address] [id number], [place] [address]- 0245 Mar, [facility] [place] [facility] [address] [id number] [place] [address]- 4879 Mar, [facility] [place] [facility] [address] [id number] [place] [address]- 5930 Mar, [facility] [address] [id number] [place] [address]- 8452 Feb, [facility] [place] [facility] [address] [id number] [place] [address]- 7953 Feb, [facility] [address] [id number] [place] [address]- 7172 Feb, [facility] [place] [facility] [address] [id number] [place] [address]- 5180 Feb, [facility] [address] [id number] [place] [address]- 9628 Feb, [facility] [address] [id number] [place] [address]- 3389 January, [facility] [address] [id number] [place] [address]- 9299 January, [facility] [address] [id number] [place] [address]- 4105 January, [facility] [address] [id number] [place] [address]- 9886 January, [facility] [address] [id number] [place] [address]- 7328 Dec, [facility] [place] [facility] [address] [id number] [place] [address]- 3360 Dec, [facility] [place] [facility] [address] [id number] [place] [address]- 1236 18 Dec, 2012 [facility] [place] [facility] [address] [id number] [place] [address]- 2001 10 Dec, 2012 [facility] [place] [facility] [address] [id number] [id number] 0427 Nov, [facility] [place] [facility] [address] [id number] [place] [address]- 4366 Nov, [facility] [place] [facility] [address] [id number] [place] [address]- 6964 Oct, [facility] [address] [id number] [place] [address]- 5056 Aug, [facility] [place] [facility] [address] [id number] [place] [address]- 5647 Aug, [facility] [place] [facility] [address] [id number] [place] [address]- 3691 Dec, [facility] [address] [id number] [place] [address]- 4550 Dec, [facility] [place] [facility] [address] [id number] [place] [address] Dec, [facility] [address] [id number] [place] [address] Nov, [facility] [address] [id number] [place] [address] Nov, [facility] [address] [id number] [place] [address] Oct, [facility] [address] [id number] [place] [address] Oct, [facility] [place] [facility] [address] [id number] [place] [address] Oct, [facility] [place] [facility] [address] [id number] [place] [address] Sep, [facility] [place] [facility] [address] [id number] [place] [address] Sep, [facility] [place] [facility] [address] [id number] [place] [address] Sep, [facility] [place] [facility] [address] [id number] [place] [address] Sep, [facility] [place] [facility] [address] [id number], [place] [address] 12 Sep, 2011 [facility] [address] [id number] [place] [address] 11 Sep, 2011 [facility] [place] [facility] [address] [facility] [id number] [place] [address] 10 Sep, 2011 [facility] [address] [facility] [id number] [place] [address] Sep, [facility] [place] [facility] [address] [id number] [place] [address] 22 Jul, 2011 [facility] [address] [facility] [id number] [place] [address], [place] [address] 15 Jul, 2011 [facility] [place] [facility] [address] [facility] [id number] [place] [address] 15 Jul, 2011 [facility] [address] [facility] [id number], [place] [address] 14 Nov, 2010 [facility] [place] [facility] [address] [facility] [id number] [place] [address] 17 Aug, 2010 [facility] [place] [facility] [address] [facility] [id number] [place] [address] 17 Aug, 2010 [facility] [place] [facility] [address] [facility] [id number] [place] [address]- [address] 16 Aug, 2010 [facility] [place] [facility] [address] [facility] [id number], [place] [address] 15 Aug, 2010 [facility] [place] [facility] [address] [facility] [id number], [place] [address] 09 Aug, 2010 [facility] [place] [facility] [address] [facility] [id number] [place] [address] Jul, [facility] [place] [facility] [address] [facility] [id number], [place] [address] Jun, [facility] [place] [facility] [address] [facility] [id number], [place] [address] Jun, [facility] [place] [facility] [address] [id number], [place] [address] Sep, [facility] [address] [id number] [address] Aug, [facility] [address] [facility] [id number], [place] [address] Aug, [facility] [address] [id number], [place] [address] Aug, [facility] [id number], [place] [address] Jun, [facility] [id number] [address] [address] Jun, [facility] [id number], [place] [address] May, [facility] [id number], [place] [address] Apr, [facility] [address] [id number], [place] [address] Mar, [facility] [address] [id number], [place] [address] January, [facility] [address] [id number], [place] [address] Oct, IMMUNIZATIONS No Known Immunizations SOCIAL HISTORY Never Assessed REASON FOR VISIT Returned call PLAN OF CARE VITAL SIGNS MEDICATIONS [...] Hospitalization History celluitis of the left upper thigh-[facility]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
--- OUTSIDE RECORDS SUMMARY | 2018-07-05 10:53 | XMS REPORT ---
Author Author NERISSA MARTINEZ [facility] Address [address] [place] [address] Care Team Providers Care Traffic Manager Name Role Phone NERISSA MARTINEZ Unavailable PROBLEMS Type Condition ICD9-CM Code EZA99-AA Code Onset Dates Condition Status SNOMED Code Problem Other male erectile dysfunction N52.8 Active 213184515 Problem Diabetes type 2, controlled E11.9 Active 10235018 Problem Obesity, unspecified E66.9 Active 382361274 Problem Gastro-esophageal reflux disease with esophagitis K21.0 Active 120593986 Problem Insomnia, unspecified G47.00 Active 669935213 Problem Anxiety F41.9 Active 51820688 Problem Autism spectrum F84.0 Active 63690450 Problem Hypertriglyceridemia E78.1 Active 139610086 Problem Generalized anxiety disorder F41.1 Active 82963248 Problem Chronic fatigue R53.82 Active 15280771 Problem Type 2 diabetes mellitus 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 E11.9 Active 143590466 Problem BMI 45.0-49.9, adult Z68.42 Active 120780182 Problem Other chronic pain G89.29 Active 58354044 Problem Morbid obesity due to excess calories E66.01 Active 466090610 Problem Type 2 diabetes mellitus with hyperglycemia E11.65 Active 455338208 Problem Hypertension I10 Active 15846329 Problem Diabetes type 2, uncontrolled E11.65 Active 070464938 Problem Mild episode of recurrent major depressive disorder F33.0 Active 744394068 Problem Type 2 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 Active 10523821 Problem Hypogonadism in male E29.1 Active 95818504 Problem Seasonal allergies J30.2 Active 523460405 Problem Controlled type 2 diabetes mellitus without complication, without long -term current use of insulin E11.9 Active 396971628 Problem Diabetic polyneuropathy associated with type 2 diabetes mellitus E11.42 Active 17619774 Problem Polyneuropathy G62.9 Active 31302879 Problem 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 [id number] [place] [address] 66693- 8878 May, [facility] [address] 65968- 6695 May, [facility] [id number] [place] [address] 37373 -0412 Apr, Colitis K52.9 ; Abdominal discomfort R10.9 and Anxiety F41.9 [facility] [facility] [id number] [place] [address] 15259- 5338 Apr, [facility] [address] 51311- 9669 Apr, Colitis K52.9 and BMI 45.0-49.9, adult Z68.42 [facility] [id number] [place] [address] 59379- 4917 Apr, Diabetes type 2, uncontrolled E11.65 [facility] [id number] [place] [address] 06486- 3694 Apr, Autism spectrum F84.0 ; Generalized anxiety disorder F41.1 and BMI 45.0-49.9, adult Z68.42 [facility] [id number] [place] [address] 42134- 2459 Apr, [facility] [address] 26126- 0674 Apr, BMI 45.0-49.9, adult Z68.42 [facility] [facility] [id number] [place] [address] 76708- 6892 Apr, Candidiasis B37.9 ; Pain in right shoulder M25.511 ; Pain in left shoulder M25.512 ; Other chronic pain G89.29 and Morbid obesity due to excess calories E66.01 [facility] [id number] [place] [address] 52132- 6587 Apr, Hypogonadism in male E29.1 [facility] [id number] [place] [address] 80646 -6333 Mar, Yeast dermatitis B37.2 and Sensation of foreign body in throat R09.89 [facility] [id number] [place] [address] 65176- 8418 Mar, [facility] [id number] [place] [address] 83770- 4114 Mar, Hypogonadism in male E29.1 [facility] [id number] [place] [address] 19911- 7902 Mar, Hypogonadism in male E29.1 [facility] [facility] [address] 79492- 1966 Mar, [facility] [id number] [place] [address] 95595- 9774 Mar, Diabetes type 2, uncontrolled E11.65 and Hypogonadism in male E29.1 [facility] [id number] [place] [address] 89333- 1598 Mar, [facility] [id number] [place] [address] 17630- 4523 Feb, Diabetes type 2, controlled E11.9 ; Myalgia M79.1 and BMI 45.0-49.9, adult Z68.42 [facility] [id number] [place] [address] 94208 -7579 Feb, Hematuria, unspecified type R31.9 ; Side pain R10.9 and Rash R21 [facility] [facility] [id number] [place] [address] 76278- 2068 January, [facility] [id number] [place] [address] 23206- 0857 January, [facility] [id number] [place] [address] 08339- 3809 January, [facility] [id number] [place] [address] 08090 -4945 January, Seasonal allergies J30.2 and BMI 45.0-49.9, adult Z68.42 [facility] [id number] [place] [address] 45366- 8229 January, Chronic fatigue R53.82 ; Mild episode of recurrent major depressive disorder F33.0 and Polyneuropathy G62.9 [facility] [facility] [address] 04965- 8126 January, Chronic fatigue R53.82 ; BMI 45.0-49.9, adult Z68.42 and Anxiety F41.9 [facility] [id number] [place] [address] 99841- 7040 January, Generalized anxiety disorder F41.1 [facility] [id number] [place] [address] 17360- 5093 Dec, Autism spectrum F84.0 ; Generalized anxiety disorder F41.1 ; High risk medication use Z79.899 and BMI 45.0-49.9, adult Z68.42 [facility] [id number] [place] [address] 37217- 4992 Dec, [facility] [id number] [place] [address] [id number] [phone] Dec, 2017 Encounter for dental examination Z01.20 [facility] [id number] [place] [address] 42075- 7073 Dec, Mild episode of recurrent major depressive disorder F33.0 ; Type 2 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 [address] [address]- 9145 Nov, Type 2 diabetes mellitus 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 E11.9 and director long term care 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.4 [facility] [address] [place] [address] [id number] Oct, Dental examination Z01.20 and Dental caries K02.9 [facility] [id number] [place] [address] 12300- 7906 Oct, [facility] [id number] [place] [address] 94521- 6823 Oct, BMI 45.0-49.9, adult Z68.42 ; Autism spectrum F84.0 and Generalized anxiety disorder F41.1 [facility] [id number] [place] [address] 18503- 5834 Oct, [facility] [id number] [place] [address] 21854- 4250 Oct, [facility] [id number] [place] [address] 78176- 4955 Oct, Hypertriglyceridemia E78.1 [facility] [address] [place] [address] 39897- 2554 Oct, Hypertriglyceridemia E78.1 [facility] [address] [place] [address] 84137- 9020 Sep, Controlled type 2 diabetes mellitus without complication, without long-term current use of insulin E11.9 [facility] [address] [address]- 4255 Sep, [facility] [id number] [place] [address] 56902- 0844 Sep, Controlled type 2 diabetes mellitus without complication, without long-term current use of insulin E11.9 [facility] [id number] [place] [address] 88490- 0558 Sep, [facility] [id number] [place] [address] 11404- 3123 Sep, [facility] [id number] [place] [address] 13054- 7176 Sep, BMI 45.0-49.9, adult Z68.42 ; Diabetic polyneuropathy associated with type 2 diabetes mellitus E11.42 and Chronic fatigue R53.82 [facility] [id number] [place] [address] 45120- 9073 Sep, [facility] [id number] [place] [address] 65092- 4648 Sep, Hypertriglyceridemia E78.1 [facility] [id number] [place] [address] 55012- 1066 Aug, [facility] [id number] [place] [address] 89510- 6025 Aug, Generalized anxiety disorder F41.1 [facility] [id number] [place] [address] 70417- 8441 Aug, [facility] [id number] [place] [address] 82990- 2386 Aug, Hypertriglyceridemia E78.1 [facility] [id number] [place] [address] 49073- 3321 Jul, [facility] [id number] [place] [address] 82845- 0659 Jul, [facility] [id number] [place] [address] 30207- 0377 Jul, Generalized anxiety disorder F41.1 ; Autism spectrum F84.0 ; BMI 45.0-49.9, adult Z68.42 and Patient's noncompliance with other medical treatment and regimen Z91.19 [facility] [id number] [place] [address] 13454- 1096 Jul, Diabetes type 2, uncontrolled E11.65 ; Diabetic polyneuropathy associated with type 2 diabetes mellitus E11.42 ; Abdominal pain , right upper quadrant R10.11 and Low back pain radiating to left lower extremity M54.5 [facility] [address] 61585- 5359 Jul, Generalized anxiety disorder F41.1 [facility] [id number] [place] [address] 83240- 6658 Jul, [facility] [address] 35420- 5465 Jul, Hypertriglyceridemia E78.1 [facility] [id number] [place] [address] 81372- 0546 Jul, Controlled type 2 diabetes mellitus without complication, without long-term current use of insulin E11.9 [facility] [id number] [place] [address] 84672- 1833 Jun, [facility] [address] 34037- 5032 Jun, Hypertriglyceridemia E78.1 [facility] [id number] [place] [address] 59633- 0680 Jun, Controlled type 2 diabetes mellitus without complication, without long-term current use of insulin E11.9 [facility] [id number] [place] [address] 07151- 2596 Jun, Generalized anxiety disorder F41.1 [facility] [facility] [address] 94651- 9625 Jun, Candidiasis B37.9 [facility] [id number] [place] [address] 19404- 0947 May, [facility] [address] 61280- 6743 18 May, 2017 Controlled type 2 diabetes mellitus without complication, without long-term current use of insulin E11.9 [facility] [id number] [place] [address] 31427- 7639 14 May, 2017 Hypertriglyceridemia E78.1 [facility] [id number] [place] [address] 35690- 6714 14 May, 2017 Hypertriglyceridemia E78.1 [facility] [id number] [place] [address] 49752- 5807 14 May, 2017 Hypertriglyceridemia E78.1 and Hypotestosteronemia E34.9 [facility] [id number] [place] [address] 67050- 8056 14 May, 2017 Generalized anxiety disorder F41.1 [facility] [id number] [place] [address] 17215- 6368 05 May, 2017 [facility] [id number] [place] [address] 60641 -2463 03 May, 2017 Abscess and cellulitis L03.90 [facility] [id number] [place] [address] [id number] Apr, [facility] [id number] [place] [address] 16336- 1055 Apr, [facility] [id number] [place] [address] 47405- 1585 Apr, Dermatofibroma of back D23.5 [facility] [id number] [place] [address] 15293 -8817 Apr, Muscle strain of left thigh, initial encounter S76.912A [facility] [address] 20711- 6567 Apr, [facility] [id number] [place] [address] 00785- 2254 Apr, Generalized anxiety disorder F41.1 [facility] [id number] [place] [address] 80142- 5110 Apr, Polyneuropathy G62.9 [facility] [id number] [place] [address] 19489- 5144 Apr, GERD without esophagitis K21.9 [facility] [address] [place] [address] 52007- 9295 Apr, Generalized anxiety disorder F41.1 ; Diastasis recti M62.08 and Controlled type 2 diabetes mellitus without complication, without long-term current use of insulin E11.9 [facility] [address] [place] [address] 72364- 4902 Apr, Generalized anxiety disorder F41.1 ; Autism spectrum F84.0 and Controlled type 2 diabetes mellitus without complication, without long-term current use of insulin E11.9 [facility] [address] [place] [address] 15671- 7435 Mar, Generalized anxiety disorder F41.1 ; Diastasis recti M62.08 and Controlled type 2 diabetes mellitus without complication, without long-term current use of insulin E11.9 [facility] [address] [place] [address] 87696- 9729 Mar, Controlled type 2 diabetes mellitus without complication, without long-term current use of insulin E11.9 [place] [address] [address]- 8027 Mar, Generalized anxiety disorder F41.1 [facility] [id number] [place] [address] 80848- 2387 Mar, Generalized anxiety disorder F41.1 [facility] [address], [place] [address]- 9418 Mar, Generalized anxiety disorder F41.1 [facility] [id number] [place] [address] 60905- 1515 Mar, Generalized anxiety disorder F41.1 [facility] [address] [place] [address] 06956- 1944 Feb, Controlled type 2 diabetes mellitus without complication, without long-term current use of insulin E11.9 [facility] [id number] [place] [address] 00817- 0395 Feb, Controlled type 2 diabetes mellitus without complication, without long-term current use of insulin E11.9 and Tinea cruris B35.6 [facility] [id number] [place] [address] 06524- 4524 Feb, Diabetes type 2, controlled E11.9 [facility] [id number] [place] [address] [id number] Feb, Dental examination Z01.20 [facility] [address] 89787- 2016 Feb, Dental examination Z01.20 [facility] [id number] [place] [address] 78981- 5438 Feb, Generalized anxiety disorder F41.1 [facility] [id number] [place] [address] 68877 -8502 Feb, Muscle spasm M62.838 and Diabetes type 2, controlled E11.9 [facility] [id number] [place] [address] 28749- 7407 Feb, Type 2 diabetes mellitus with hyperglycemia E11.65 [facility] [id number] [place] [address] [id number] Feb, Dental examination Z01.20 [facility] [id number] [place] [address] [id number] Feb, Encounter for dental examination Z01.20 [facility] [id number] [place] [address] 93115- 3721 Feb, Diabetes type 2, controlled E11.9 [facility] [id number] [place] [address] 46402- 3469 Feb, Type 2 diabetes mellitus with hyperglycemia E11.65 [facility] [id number] [place] [address] 04175- 9590 Feb, [facility] [id number] [place] [address] 75732- 1258 Feb, Controlled type 2 diabetes mellitus without complication, without long-term current use of insulin E11.9 [facility] [id number] [place] [address] 86206- 2822 January, Candidiasis B37.9 [facility] [id number] [place] [address] 08525- 9474 January, Type 2 diabetes mellitus with hyperglycemia E11.65 ; Hypertension I10 and Anxiety F41.9 [facility] [id number] [place] [address] 004870- 2266 January, Type 2 diabetes mellitus with hyperglycemia E11.65 [facility] [id number] [place] [address] 20322- 8239 January, Controlled type 2 diabetes mellitus without complication, without long-term current use of insulin E11.9 [facility] [id number] [place] [address] 09634- 9820 January, Generalized anxiety disorder F41.1 ; Autism spectrum F84.0 ; Foot callus L84 and Controlled type 2 diabetes mellitus without complication, without long-term current use of insulin E11.9 [facility] [address] [place] [address] 96497- 9889 Dec, [facility] [id number] [place] [address] 10730- 7969 Dec, [facility] [id number] [place] [address] 32630- 9693 Dec, Foot callus L84 and Rash R21 [facility] [id number] [place] [address] 73055- 0291 Dec, Controlled type 2 diabetes mellitus without complication, without long-term current use of insulin E11.9 [facility] [id number] [place] [address] 72014- 7524 Nov, [facility] [address] [address] -1175 Nov, Sore throat J02.9 and Strep pharyngitis J02.0 [facility] [address] [place] [address] 98391- 3576 Nov, Generalized anxiety disorder F41.1 [facility] [id number] [place] [address] 47353- 9541 Nov, [facility] [id number] [place] [address] 87139- 1147 Nov, [facility] [id number] [place] [address] 75849- 5345 Nov, Type 2 diabetes mellitus with hyperglycemia E11.65 [facility] [id number] [place] [address] 33012- 5310 Nov, Diabetes type 2, uncontrolled E11.65 and Localized edema R60.0 [facility] [id number] [place] [address] 07290- 5548 Nov, Controlled type 2 diabetes mellitus without complication, without long-term current use of insulin E11.9 [facility] [id number] [place] [address] 93539- 9480 Oct, Generalized anxiety disorder F41.1 and Autism spectrum F84.0 [facility] [id number] [place] [address] 27166- 2204 Oct, [facility] [id number] [place] [address] 21138- 9847 Oct, Type 2 diabetes mellitus with hyperglycemia E11.65 [facility] [id number] [place] [address] 84279- 0939 Oct, Type 2 diabetes mellitus with hyperglycemia E11.65 and director long term care 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.4 [facility] [id number] [place] [address] 37639- 5400 Oct, [facility] [address] [address]- 2690 Oct, [facility] [id number] [place] [address] [id number] Oct, Encounter for dental examination Z01.20 [facility] [id number] [place] [address] 76244- 7358 Sep, [facility] [id number] [place] [address] 97071- 4567 Sep, Diabetes type 2, controlled E11.9 [facility] [place] [id number] [place] [address] 76054 -4388 Sep, Abdominal pain R10.9 and Diverticulitis of small intestine without perforation or abscess without bleeding K57.12 [facility] [id number] [place] [address] 97245- 2484 Sep, [facility] [facility] [id number] [place] [address] 29538- 8367 Sep, Diabetes type 2, controlled E11.9 [facility] [id number] [place] [address] 69898- 1774 Sep, Controlled type 2 diabetes mellitus without complication, without long-term current use of insulin E11.9 [facility] [facility] [address] [place] [address] 65316- 0293 Sep, Type 2 diabetes mellitus 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 E11.9 and custodial 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.4 [facility] [address] [place] [address] 50728 -4512 Aug, Lower abdominal pain R10.30 ; GERD without esophagitis K21.9 and Candidiasis of skin B37.2 [place] [address] [place] [address] 44554- 3537 Aug, Controlled type 2 diabetes mellitus without complication, without long-term current use of insulin E11.9 and Diabetic polyneuropathy associated with type 2 diabetes mellitus E11.42 [facility] [address] [address] 29 Jul, 2016 Kelly infection of genital region B37.49 and Diabetes type 2, controlled E11.9 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 [id number], [place] [address] Jun, Generalized anxiety disorder F41.1 [facility] [address] [place] [id number] [place] [phone] 14 Jun, 2016 [facility] [address] [place] [id number] [place] [phone] Jun, Diabetes type 2, controlled E11.9 and Polyneuropathy G62.9 [facility] [id number] [place] [address] 28 May, 2016 [place] [id number] [place] [address] 28 May, 2016 Generalized anxiety disorder F41.1 [facility] [id number] [place] [address] 15 May, 2016 Polyneuropathy G62.9 [facility] [address] [id number] [place] [phone] 13 May, 2016 [facility] [id number] [place] [address] Apr, Anxiety disorder, unspecified F41.9 [place] [address] [place] [address] [address] Mar, Abdominal pain, unspecified abdominal location R10.9 ; Type 2 diabetes mellitus with hyperglycemia E11.65 ; custodial 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.4 and Diabetic polyneuropathy associated with type 2 diabetes mellitus E11.42 [facility] [address] [address] Mar, Generalized anxiety disorder F41.1 [place] [address] 15[address]- 8214 Mar, Generalized abdominal pain R10.84 and Other male erectile dysfunction N52.8 [facility] [place] [address] 39530 -5797 Mar, [place] [address] 44941- 8415 Feb, Generalized anxiety disorder F41.1 [place] [address] 59304- 5228 Feb, Abdominal cramping R10.9 ; Acute bilateral low back pain without sciatica M54.5 and Malaise R53.81 [facility] [place] [address] 97252 -5178 Feb, Candidiasis B37.9 and Costochondritis M94.0 [facility] [place] [address] 62624 -8458 Feb, Allergic rhinitis, unspecified allergic rhinitis type J30.9 [place] [address] 61539- 1630 Feb, Generalized anxiety disorder F41.1 [place] [address] 19009- 4945 Feb, [place] [address] 97070- 6763 Feb, Major depressive disorder, recurrent, moderate F33.1 [place] [address] [place] [address] 09[address] Feb, Generalized anxiety disorder F41.1 [facility] [address] 12940- 2374 January, Unspecified infectious disease B99.9 [facility] [address] [place] [id number] [place] [address] [id number] January, Dental examination Z01.20 [facility] [address] 02862- 8889 17 Jan, 2016 [facility] [address] 94011- 7771 January, Diabetes type 2, uncontrolled E11.65 [facility] [address] 03885 -5365 January, Wheezing R06.2 and History of pneumonia Z87.01 [facility] [address] 15613- 4956 January, [facility] [address] 74068- 6424 January, Depression, major, recurrent, moderate F33.1 [facility] [address] 85668- 9983 January, [facility] [address] [place] [id number] [place] [address] 19343- 3686 January, Depression, major, recurrent, moderate F33.1 [facility] [address] [place] [id number] [place] [address] 60162- 9418 January, [facility] [address] 10957- 7894 Dec, Depression, major, recurrent, moderate F33.1 [facility] [address] [place] [id number] [place] [address] 33782- 4871 Dec, Dental examination Z01.20 [facility] [address] [place] [id number] [place] [address] [id number] Dec, Dental examination Z01.20 [facility] [id number] [place] [address] 53605- 7413 08 Dec, 2015 Generalized anxiety disorder F41.1 [facility] [address] [address] [address] Dec, Generalized anxiety disorder F41.1 [facility] [address] [place] [id number] [place] [address] 20822- 7430 30 Nov, 2015 [facility] [id number] [place] [address] 09875- 8098 Nov, [facility] [address] [place] [id number] [place] [address] 91973- 1370 Nov, Generalized anxiety disorder F41.1 [facility] [id number] [place] [address] [id number] Nov, Dental examination Z01.20 [facility] [id number] [place] [address] 36352- 6145 Nov, [facility] [address] [place] [id number] [place] [address] 58804- 3247 Nov, Generalized anxiety disorder F41.1 and Autism spectrum F84.0 [facility] [address] [address] 6154 Nov, Depression, major, recurrent, moderate F33.1 [facility] [address] [address]- 0418 Nov, [facility] [id number] [place] [address] 54893- 4746 Nov, Diabetes type 2, uncontrolled E11.65 and Hypertension I10 [facility] [address] [id number] 14 Nov, 2015 Dental examination Z01.20 [facility] [id number] [place] [address] 47994- 5565 Nov, [facility] [address] [place] [id number] [place] [address] 63702- 1739 Nov, Depression, major, recurrent, moderate F33.1 [facility] [address] [place] [id number] [place] [address] 50236 -1307 Nov, Penile abrasion S30.812A [facility] [address] 58784- 3291 Oct, Generalized anxiety disorder F41.1 [facility] [address] [place] [id number] [place] [address] 27185- 9137 Oct, Depression, major, recurrent, moderate F33.1 [place] [address] [place] [id number] [place] [address] 74574- 3452 Oct, Diabetes type 2, controlled E11.9 and Malaise R53.81 [facility] [address] 53968- 7252 Oct, [facility] [address] [place] [id number] [place] [address] 02725- 2908 Oct, [facility] [address] [place] [id number] [place] [address] 57891- 8348 Oct, [facility] [address] [place] [id number] [place] [address] 64165- 3461 Oct, Depression, major, recurrent, moderate F33.1 [facility] [address] [place] [id number] [place] [address] 54072- 9455 Oct, Generalized anxiety disorder F41.1 and Autism spectrum F84.0 [facility] [address] 33787- 3915 Oct, [facility] [address] [place] [id number] [place] [address] 82049- 2164 08 Oct, 2015 Major depressive disorder, recurrent, moderate F33.1 [facility] [address] [place] [address]- 9018 Oct, [facility] [address] [place] [id number] [place] [address] 61602- 3309 Oct, [facility] [address] [place] [id number] [place] [address] 03634- 5002 Oct, Generalized anxiety disorder F41.1 [facility] [address] [place] [id number] [place] [address] 47968- 7876 Oct, [facility] [address] [place] [id number] [place] [address] 44648- 2208 Oct, Back muscle spasm M62.830 [place] [address] [place] [id number] [place] [address] 29550- 6791 Oct, Major depressive disorder, recurrent, moderate F33.1 [facility] [address] [place] [id number] [place] [address] 02279 -5474 Sep, Back muscle spasm M62.830 ; Allergic rhinitis J30.9 and Person with feared health complaint in whom no diagnosis is made Z71.1 [facility] [address] [place] [id number] [place] [address] 71126- 8332 Sep, Generalized anxiety disorder F41.1 [facility] [address] [place] [id number] [place] [address] 47435 -7315 Sep, [facility] [address] [place] [id number] [place] [address] 57077- 2739 Sep, [facility] [address] [place] [id number] [place] [address] 82696- 0873 13 Sep, 2015 Mood disorder F39 ; Diabetes type 2, controlled E11.9 ; Morbid obesity due to excess calories E66.01 and Edema, unspecified type R60.9 [facility] [id number] [place] [address] 01946- 9305 13 Sep, 2015 Generalized anxiety disorder F41.1 [facility] [address] [place] [id number] [place] [address] 89687- 7689 Sep, [facility] [id number] [place] [address] 21360- 2855 Sep, Adjustment disorder with mixed anxiety and depressed mood F43.23 and Depression F32.9 [facility] [id number] [place] [address] 48574- 5103 06 Sep, 2015 Generalized anxiety disorder F41.1 [facility] [address] [place] [id number] [place] [address] 97333- 5729 Sep, Generalized anxiety disorder 300.02 and Autism spectrum disorder F84.[address] [id number] [id number] Aug, Encounter for dental examination Z01.20 [facility] [address] [place] [id number] [place] [address] 44166- 6829 16 Aug, 2015 [facility] [address] [place] [id number] [place] [address] 10875 -6180 17 Jul, 2015 Candidiasis B37.9 [facility] [address] [place] [id number] [place] [address] 36234- 6257 Jul, [address] [id number] [id number] Jul, Encounter for dental examination Z01.20 [facility] [id number] [place] [address] 29442- 7228 02 Jul, 2015 [facility] [address] [place] [id number] [place] [address] 32716- 3014 08 Jun, 2015 [facility] [address] [place] [id number] [place] [address] 19251- 5023 30 May, 2015 Diabetes type 2, controlled 250.00 and Neuropathy 355.9 [facility] [address] [place] [id number] [place] [address] 81977- 5570 16 May, 2015 [facility] [address] [place] [id number] [place] [address] 29042- 1754 Apr, Generalized anxiety disorder 300.02 and Autism spectrum disorder 299.00 [facility] [id number] [place] [address] 05566- 8384 Apr, Abrasion, foot 917.0 ; Chest pain 786.50 and Back pain 724.5 [facility] [id number] [place] [address] 24044- 9325 Apr, Generalized anxiety disorder 300.02 [facility] [address] [place] [id number] [place] [address] 13180- 3740 Feb, Anxiety state, unspecified 300.00 [facility] [address] [place] [id number] [place] [address] 77873- 7523 Feb, Diabetes mellitus without mention of complication, type II or unspecified type, not stated as uncontrolled 250.00 ; Generalized anxiety disorder 300.02 ; Morbid obesity 278.01 ; Benign essential hypertension 401.1 ; Chronic pain 338.29 ; Screen for STD (sexually transmitted disease) V74.5 ; Dysuria 788.1 and Kelly infection of genital region 112.2 [facility] [id number] [place] [address] 47660- 8277 Feb, [facility] [address] [place] [id number] [place] [address] 40074- 4369 January, Generalized anxiety disorder 300.02 and Autism spectrum disorder 299.00 [facility] [id number] [place] [address] 49199- 4366 Dec, [facility] [id number] [place] [address] 14184- 2763 Dec, [facility] [id number] [place] [address] 78942- 9970 Dec, [facility] [id number] [place] [address] 15353- 1067 Nov, [facility] [address] [id number] Nov, [facility] [address] [place] [id number] [place] [place] [address]- 1808 Nov, [facility] [address] [id number] [place] [address]- 7168 Nov, [facility] [place] [facility] [address] [id number] [place] [id number] Nov, [facility] [place] [facility] [address] [id number] [place] [address]- 8804 Oct, [facility] [place] [facility] [address] [id number] [place] [address]- 3099 Jul, [facility] [place] [facility] [address] [id number] [place] [address]- 8771 Jul, [facility] [place] [facility] [address] [id number] [place] [address]- 6070 Jul, [facility] [place] [facility] [address] [id number] [place] [address]- 4054 Jul, [facility] [place] [facility] [address] [id number] [place] [address]- 7872 Jul, [facility] [place] [facility] [address] [id number] [place] [address]- 0511 Jul, [facility] [place] [facility] [address] [id number] [place] [address]- 4224 Jul, [facility] [place] [facility] [address] [id number] [place] [address]- 4076 Jul, [facility] [place] [facility] [address] [id number] [place] [address]- 7426 Jul, [facility] [place] [facility] [address] [id number] [place] [address]- 0388 Jul, [facility] [place] [facility] [address] [id number] [place] [address]- 3380 Jun, [facility] [place] [facility] [address] [id number] [place] [address]- 7771 Jun, [facility] [place] [facility] [address] [id number] [place] [address]- 3759 Jun, [facility] [place] [facility] [address] [id number] [place] [address]- 1221 20 Jun, 2014 [facility] [place] [facility] [address] [id number] [place] [address]- 6427 16 Jun, 2014 [facility] [place] [facility] [address] [id number] [place] [address]- 6582 Jun, [facility] [place] [facility] [address] [id number] [place] [address]- 9907 Jun, [facility] [place] [facility] [address] [id number] [place] [address]- 7282 30 May, 2014 [facility] [place] [facility] [address] [id number] [place] [address]- 6531 30 May, 2014 [facility] [place] [facility] [address] [id number] [place] [address]- 5609 12 May, 2014 [facility] [place] [facility] [address] [id number] [place] [address]- 6910 12 May, 2014 [facility] [place] [facility] [address] [id number] [place] [address]- 9033 May, [facility] [place] [facility] [address] [id number] [place] [address]- 8015 May, [facility] [place] [facility] [address] [id number] [place] [address]- 1357 May, [facility] [place] [facility] [address] [id number] [place] [address]- 5206 May, [facility] [place] [facility] [address] [id number] [place] [address]- 9026 Apr, [facility] [place] [facility] [address] [id number] [place] [address]- 9543 Apr, [facility] [place] [facility] [address] [id number] [place] [address]- 3083 Apr, [facility] [place] [facility] [address] [id number] [place] [address]- 7863 Apr, [facility] [place] [facility] [address] [id number] [place] [address]- 6332 Apr, [facility] [place] [facility] [address] [id number] [place] [address]- 6699 Apr, [facility] [place] [facility] [address] [id number] [place] [address]- 7603 Apr, [facility] [place] [facility] [address] [id number] [place] [address]- 4484 Apr, [facility] [place] [facility] [address] [id number] [place] [address]- 4233 Apr, [facility] [place] [facility] [address] [id number] [place] [address]- 4689 Mar, [facility] [place] [facility] [address] [id number] [place] [address]- 6556 Mar, [facility] [place] [facility] [address] [id number] [place] [address]- 9596 Mar, [facility] [place] [facility] [address] [id number] [place] [address]- 3816 Mar, [facility] [place] [facility] [address] [id number] [place] [address]- 3392 Mar, [facility] [place] [facility] [address] [id number] [place] [address]- 3042 Mar, [facility] [place] [facility] [address] [id number] [place] [address]- 3466 Feb, [facility] [place] [facility] [address] [id number] [place] [address]- 0734 Feb, [facility] [place] [facility] [address] [id number] [place] [address]- 7366 Feb, [facility] [place] [facility] [address] [id number] [place] [address]- 5998 January, [facility] [address] [id number] [place] [address]- 4301 January, [facility] [place] [facility] [address] [id number] [place] [address]- 8031 January, [facility] [place] [facility] [address] [id number] [place] [address]- 2251 January, [facility] [place] [facility] [address] [id number] [place] [address]- 1306 January, [facility] [place] [facility] [address] [id number] [place] [address]- 9212 January, [facility] [place] [facility] [address] [id number] [place] [address]- 1222 Dec, [facility] [place] [facility] [address] [id number] [place] [address]- 2582 Dec, [facility] [place] [facility] [address] [id number] [place] [address]- 4632 Dec, [facility] [place] [facility] [address] [id number] [place] [address]- 6457 Dec, [facility] [place] [facility] [address] [id number] [place] [address]- 3315 Nov, [facility] [place] [facility] [address] [id number] [place] [address]- 6424 Nov, [facility] [place] [facility] [address] [id number] [place] [address]- 8643 Oct, [facility] [place] [facility] [address] [id number] [place] [address]- 6645 Oct, [facility] [place] [facility] [address] [id number] [place] [address]- 4875 Sep, [facility] [place] [facility] [address] [id number] [place] [address]- 9277 Sep, [facility] [address] [id number] [place] [address]- 2434 Aug, [facility] [place] [facility] [address] [id number] [place] [address]- 5794 Aug, [facility] [place] [facility] [address] [id number] [place] [address]- 4127 Aug, [facility] [place] [facility] [address] [id number] [place] [address]- 3046 Jul, [facility] [place] [facility] [address] [id number] [place] [address]- 6876 Jul, [facility] [place] [facility] [address] [id number] [place] [address]- 8900 Jul, [facility] [place] [facility] [address] [id number] [place] [address]- 2544 Jul, [facility] [place] [facility] [address] [id number] [place] [address]- 3801 Jul, [facility] [place] [facility] [address] [id number] [place] [address]- 8852 May, [facility] [place] [facility] [address] [id number] [place] [address]- 6216 May, [facility] [place] [facility] [address] [id number] [address]- 7201 Apr, [facility] [place] [facility] [address] [id number] [address]- 4566 Apr, [facility] [place] [facility] [address] [id number] [place] [address]- 8106 Mar, [facility] [place] [facility] [address] [id number] [address]- 0767 Mar, [facility] [place] [facility] [address] [id number] [place] [address]- 4352 Mar, [facility] [place] [facility] [address] [id number] [place] [address]- 7357 Mar, [facility] [address] [id number] [place] [address]- 3403 Feb, [facility] [place] [facility] [address] [id number] [place] [address]- 6653 Feb, [facility] [address] [id number] [place] [address]- 3016 Feb, [facility] [place] [facility] [address] [id number] [place] [address]- 1391 Feb, [facility] [address] [id number] [place] [address]- 0863 Feb, [facility] [address] [id number] [place] [address]- 8856 January, [facility] [address] [id number] [place] [address]- 3290 January, [facility] [address] [id number] [place] [address]- 9331 January, [facility] [address] [id number] [place] [address]- 8297 January, [facility] [address] [id number] [place] [address]- 7288 Dec, [facility] [place] [facility] [address] [id number] [place] [address]- 2068 Dec, [facility] [place] [facility] [address] [id number] [place] [address]- 9388 18 Dec, 2012 [facility] [place] [facility] [address] [id number] [place] [address]- 7984 10 Dec, 2012 [facility] [place] [facility] [address] [id number] [place] 8656 Nov, [facility] [place] [facility] [address] [id number] [place] [address]- 7834 Nov, [facility] [place] [facility] [address] [id number] [place] [address]- 5917 Oct, [facility] [address] [id number] [place] [address]- 6973 Aug, [facility] [place] [facility] [address] [id number] [place] [address]- 1909 Aug, [facility] [place] [facility] [address] [id number] [place] [address]- 3548 Dec, [facility] [address] [id number] [place] [address]- 3192 Dec, [facility] [place] [facility] [address] [id number] [place] [address] Dec, [facility] [address] [id number] [place] [address] Nov, [facility] [address] [id number] [place] [address] Nov, [facility] [address] [id number] [place] [address] Oct, [facility] [address] [id number] [place] [address] Oct, [facility] [place] [facility] [address] [id number] [place] [address] Oct, [facility] [place] [facility] [address] [id number] [place] [address] Sep, [facility] [place] [facility] [address] [id number] [place] [address] Sep, [facility] [place] [facility] [address] [id number] [place] [address] Sep, [facility] [place] [facility] [address] [id number] [place] [address] Sep, [facility] [place] [facility] [address] [id number], [place] [address] 12 Sep, 2011 [facility] [address] [id number] [place] [address] 11 Sep, 2011 [facility] [place] [facility] [address] [facility] [id number] [place] [address] 10 Sep, 2011 [facility] [address] [facility] [id number] [place] [address] Sep, [facility] [place] [facility] [address] [id number] [place] [address]- [address] 22 Jul, 2011 [facility] [address] [facility] [id number] [place] [address], [place] [address]- [address] 15 Jul, 2011 [facility] [place] [facility] [address] [facility] [id number] [place] [address]- [address] 15 Jul, 2011 [facility] [address] [facility] [id number] [address] 14 Nov, 2010 [facility] [place] [facility] [address] [facility] [id number] [place] [address] 17 Aug, 2010 [facility] [place] [facility] [address] [facility] [id number] [place] [address]- [address] 17 Aug, 2010 [facility] [place] [facility] [address] [facility] [id number] [place] [address]- [address] 16 Aug, 2010 [facility] [place] [facility] [address] [facility] [id number], [place] [address] 15 Aug, 2010 [facility] [place] [facility] [address] [facility] [id number], [place] [address] 09 Aug, 2010 [facility] [place] [facility] [address] [facility] [id number] [place] [address] Jul, [facility] [place] [facility] [address] [facility] [id number], [place] [address] Jun, [facility] [place] [facility] [address] [facility] [id number], [place] [address] Jun, [facility] [place] [facility] [address] [id number], [place] [address] Sep, [facility] [id number] [address] Aug, [facility] [id number], [place] [address] Aug, [facility] [id number], [place] [address] Aug, [facility] [id number], [place] [address] Jun, [facility] [id number], [place] [address] Jun, [facility] [id number], [place] [address] May, [facility] [id number], [place] [address] Apr, [facility] [address] [id number], [place] [address] Mar, [facility] [id number], [place] [address] January, [facility] [address] [id number], [place] [address] Oct, IMMUNIZATIONS Vaccine Route Administration Date Status TESTOSTERONE (PT'S OWN) IM Intramuscular April 01, 2018 Administered SOCIAL HISTORY Never Assessed REASON FOR VISIT Injection-Pricilla ESPINOZA PLAN OF CARE Activity Details Follow Up 2 Weeks Reason:f/u labs VITAL SIGNS MEDICATIONS Unknown Medications RESULTS No Results PROCEDURES Procedure Date Ordered Result Body Site TESTOSTERONE (PT'S OWN) April 01, 2018 THER/PROPH/DIAG INJ, SC/IM April 01, 2018 INSTRUCTIONS MEDICATIONS ADMINISTERED No Known [...] Hospitalization History celluitis of the left upper thigh-[facility] 04/2017 Hospitalization History [facility]-in[facility] psych 4 day stay 2013 Hospitalization History [facility] [place]- Shaking, unsure of blood sugar level 11/20/2017
--- OUTSIDE RECORDS SUMMARY | 2018-07-05 10:54 | XMS REPORT ---
Author Author NERISSA MARTINEZ [facility] Address [address] [place] [address] Care Team Providers Care Instrument Assembler Name Role Phone NERISSA MARTINEZ Unavailable PROBLEMS Type Condition ICD9-CM Code [id number] Code Onset Dates Condition Status SNOMED Code Problem Other male erectile dysfunction N52.8 Active 112817833 Problem Diabetes type 2, controlled E11.9 Active 87686972 Problem Obesity, unspecified E66.9 Active 443262724 Problem Gastro-esophageal reflux disease with esophagitis K21.0 Active 727947505 Problem Insomnia, unspecified G47.00 Active 914041366 Problem Anxiety F41.9 Active 97758313 Problem Autism spectrum F84.0 Active 65859477 Problem Hypertriglyceridemia E78.1 Active 522762049 Problem Generalized anxiety disorder F41.1 Active 77801866 Problem Chronic fatigue R53.82 Active 34608131 Problem Type 2 diabetes mellitus 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 E11.9 Active 192527718 Problem BMI 45.0-49.9, adult Z68.42 Active 531037712 Problem Other chronic pain G89.29 Active 92617018 Problem Morbid obesity due to excess calories E66.01 Active 342239049 Problem Type 2 diabetes mellitus with hyperglycemia E11.65 Active 922705800 Problem Hypertension I10 Active 25589374 Problem Diabetes type 2, uncontrolled E11.65 Active 558869401 Problem Mild episode of recurrent major depressive disorder F33.0 Active 895171956 Problem Type 2 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 Active 23263069 Problem Hypogonadism in male E29.1 Active 18500257 Problem Seasonal allergies J30.2 Active 559362715 Problem Controlled type 2 diabetes mellitus without complication, without long -term current use of insulin E11.9 Active 380314740 Problem Diabetic polyneuropathy associated with type 2 diabetes mellitus E11.42 Active 42999571 Problem Polyneuropathy G62.9 Active 79579513 Problem 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 Active 817810775 Problem group home 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.4 Active 271887992 Problem Diverticulitis of small intestine without perforation or abscess without bleeding K57.12 Active 25520220 Problem GERD without esophagitis K21.9 Active 644194621 Problem Type 2 diabetes mellitus with hyperglycemia E11.65 Active 835884853 ALLERGIES No Information ENCOUNTERS Encounter Location Date Diagnosis [facility] [id number] [place] [address] 74449- 1478 May, [facility] [address] 21294- 4803 May, [facility] [id number] [place] [address] 71095 -1896 Apr, Colitis K52.9 ; Abdominal discomfort R10.9 and Anxiety F41.9 [place] [id number] [place] [address] 44452- 3233 Apr, [facility] [address] 03558- 6616 Apr, Colitis K52.9 and BMI 45.0-49.9, adult Z68.42 [place] [id number] [place] [address] 16646- 8787 Apr, Diabetes type 2, uncontrolled E11.65 [facility] [id number] [place] [address] 06145- 0823 Apr, Autism spectrum F84.0 ; Generalized anxiety disorder F41.1 and BMI 45.0-49.9, adult Z68.42 [facility] [id number] [place] [address] 61917- 2594 Apr, [place] [address] 50802- 1246 Apr, BMI 45.0-49.9, adult Z68.42 [place] [id number] [place] [address] 94292- 3331 Apr, Candidiasis B37.9 ; Pain in right shoulder M25.511 ; Pain in left shoulder M25.512 ; Other chronic pain G89.29 and Morbid obesity due to excess calories E66.01 [place] [id number] [place] [address] 68810- 7911 Apr, Hypogonadism in male E29.1 [facility] [id number] [place] [address] 86586 -0434 Mar, Yeast dermatitis B37.2 and Sensation of foreign body in throat R09.89 [place] [id number] [place] [address] 43424- 1138 Mar, [place] [id number] [place] [address] 16463- 2314 Mar, Hypogonadism in male E29.1 [place] [id number] [place] [address] 77250- 1150 Mar, Hypogonadism in male E29.1 [place] [address] 47585- 7265 Mar, [place] [id number] [place] [address] 17935- 7411 Mar, Diabetes type 2, uncontrolled E11.65 and Hypogonadism in male E29.1 [place] [id number] [place] [address] 15901- 3450 Mar, [place] [id number] [place] [address] 49150- 8073 Feb, Diabetes type 2, controlled E11.9 ; Myalgia M79.1 and BMI 45.0-49.9, adult Z68.42 [facility] [id number] [place] [address] 67321 -7873 Feb, Hematuria, unspecified type R31.9 ; Side pain R10.9 and Rash R21 [place] [id number] [place] [address] 53024- 9526 January, [place] [id number] [place] [address] 02289- 1652 January, [facility] [id number] [place] [address] 23258- 4711 January, [facility] [id number] [place] [address] 80527 -2601 January, Seasonal allergies J30.2 and BMI 45.0-49.9, adult Z68.42 [place] [id number] [place] [address] 24112- 8794 January, Chronic fatigue R53.82 ; Mild episode of recurrent major depressive disorder F33.0 and Polyneuropathy G62.9 [place] [address] 64663- 2498 January, Chronic fatigue R53.82 ; BMI 45.0-49.9, adult Z68.42 and Anxiety F41.9 [place] [id number] [place] [address] 78838- 7320 January, Generalized anxiety disorder F41.1 [place] [id number] [place] [address] 46512- 2614 Dec, Autism spectrum F84.0 ; Generalized anxiety disorder F41.1 ; High risk medication use Z79.899 and BMI 45.0-49.9, adult Z68.42 [place] [id number] [place] [address] 30488- 7390 Dec, [facility] [id number] [place] [address] [id number] 17 Dec, 2017 Encounter for dental examination Z01.20 [place] [id number] [place] [address] 03328- 6849 Dec, Mild episode of recurrent major depressive disorder F33.0 ; Type 2 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 [place] [id number] [place] [address] 50103- 5742 Nov, [place] [address] [address]- 0367 Nov, BMI 45.0-49.9, adult Z68.42 ; Autism spectrum F84.0 and Generalized anxiety disorder F41.1 [facility] [address] [address]- 7915 Nov, Type 2 diabetes mellitus 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 E11.9 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 [facility] [id number] [place] [address] [phone] Oct, Dental examination Z01.20 and Dental caries K02.9 [facility] [id number] [place] [address] 50130- 7880 Oct, [facility] [id number] [place] [address] 83081- 5045 Oct, BMI 45.0-49.9, adult Z68.42 ; Autism spectrum F84.0 and Generalized anxiety disorder F41.1 [facility] [address] [place] [address] 42149- 7267 Oct, [facility] [id number] [place] [address] 45822- 7769 Oct, [facility] [address] [place] [address] 04364- 0353 Oct, Hypertriglyceridemia E78.1 [facility] [address] [place] [address] 00803- 1940 Oct, Hypertriglyceridemia E78.1 [facility] [address] [place] [address] 69925- 1617 Sep, Controlled type 2 diabetes mellitus without complication, without long-term current use of insulin E11.9 [facility] [address] [address]- 8650 Sep, [facility] [id number] [place] [address] 08799- 9811 Sep, Controlled type 2 diabetes mellitus without complication, without long-term current use of insulin E11.9 [place] [id number] [place] [address] 03435- 8393 Sep, [place] [id number] [place] [address] 15100- 8942 Sep, [place] [id number] [place] [address] 39175- 6245 Sep, BMI 45.0-49.9, adult Z68.42 ; Diabetic polyneuropathy associated with type 2 diabetes mellitus E11.42 and Chronic fatigue R53.82 [place] [id number] [place] [address] 57426- 0780 Sep, [place] [id number] [place] [address] 97211- 8246 Sep, Hypertriglyceridemia E78.1 [place] [id number] [place] [address] 91385- 0950 Aug, [place] [id number] [place] [address] 68447- 7522 Aug, Generalized anxiety disorder F41.1 [place] [id number] [place] [address] 15425- 3254 Aug, [place] [id number] [place] [address] 14415- 7480 Aug, Hypertriglyceridemia E78.1 [place] [id number] [place] [address] 82018- 8161 Jul, [place] [id number] [place] [address] 52771- 8006 Jul, [place] [id number] [place] [address] 82428- 2340 Jul, Generalized anxiety disorder F41.1 ; Autism spectrum F84.0 ; BMI 45.0-49.9, adult Z68.42 and Patient's noncompliance with other medical treatment and regimen Z91.19 [place] [id number] [place] [address] 29521- 6183 Jul, Diabetes type 2, uncontrolled E11.65 ; Diabetic polyneuropathy associated with type 2 diabetes mellitus E11.42 ; Abdominal pain , right upper quadrant R10.11 and Low back pain radiating to left lower extremity M54.5 [place] [address] 61698- 0886 Jul, Generalized anxiety disorder F41.1 [place] [id number] [place] [address] 03969- 5335 Jul, [place] [address] 08573- 2081 Jul, Hypertriglyceridemia E78.1 [place] [id number] [place] [address] 79482- 9537 Jul, Controlled type 2 diabetes mellitus without complication, without long-term current use of insulin E11.9 [place] [id number] [place] [address] 94975- 4870 Jun, [place] [address] 81168- 4163 Jun, Hypertriglyceridemia E78.1 [place] [id number] [place] [address] 80275- 7199 Jun, Controlled type 2 diabetes mellitus without complication, without long-term current use of insulin E11.9 [place] [id number] [place] [address] 12609- 6847 Jun, Generalized anxiety disorder F41.1 [place] [address] 72889- 3319 Jun, Candidiasis B37.9 [facility] [id number] [place] [address] 70117- 4967 May, [place] [address] 20900- 5763 18 May, 2017 Controlled type 2 diabetes mellitus without complication, without long-term current use of insulin E11.9 [facility] [id number] [place] [address] 81862- 3456 14 May, 2017 Hypertriglyceridemia E78.1 [facility] [id number] [place] [address] 81408- 8604 14 May, 2017 Hypertriglyceridemia E78.1 [facility] [id number] [place] [address] 92373- 2215 14 May, 2017 Hypertriglyceridemia E78.1 and Hypotestosteronemia E34.9 [place] [id number] [place] [address] 89710- 4180 14 May, 2017 Generalized anxiety disorder F41.1 [place] [id number] [place] [address] 89869- 9122 05 May, 2017 [facility] [id number] [place] [address] 39154 -0054 03 May, 2017 Abscess and cellulitis L03.90 [facility] [id number] [place] [address] [phone] Apr, [facility] [id number] [place] [address] 90604- 4836 Apr, [facility] [id number] [place] [address] 18091- 7838 Apr, Dermatofibroma of back D23.5 [facility] [id number] [place] [address] 35303 -3740 Apr, Muscle strain of left thigh, initial encounter S76.912A [facility] [address] 55506- 9968 Apr, [facility] [id number] [place] [address] 43437- 0014 Apr, Generalized anxiety disorder F41.1 [facility] [id number] [place] [address] 09683- 2577 Apr, Polyneuropathy G62.9 [facility] [id number] [place] [address] 11156- 9393 Apr, GERD without esophagitis K21.9 [facility] [id number] [place] [address] 78563- 8358 Apr, Generalized anxiety disorder F41.1 ; Diastasis recti M62.08 and Controlled type 2 diabetes mellitus without complication, without long-term current use of insulin E11.9 [facility] [id number] [place] [address] 76832- 9008 Apr, Generalized anxiety disorder F41.1 ; Autism spectrum F84.0 and Controlled type 2 diabetes mellitus without complication, without long-term current use of insulin E11.9 [place] [id number] [place] [address] 71758- 5243 Mar, Generalized anxiety disorder F41.1 ; Diastasis recti M62.08 and Controlled type 2 diabetes mellitus without complication, without long-term current use of insulin E11.9 [facility] [address] [place] [address] 34845- 0984 Mar, Controlled type 2 diabetes mellitus without complication, without long-term current use of insulin E11.9 [place] [address], [place] [address]- 6256 Mar, Generalized anxiety disorder F41.1 [facility] [id number] [place] [address] 36967- 4629 Mar, Generalized anxiety disorder F41.1 [facility] [address], [place] [address]- 8130 Mar, Generalized anxiety disorder F41.1 [facility] [id number] [place] [address] 68129- 2073 Mar, Generalized anxiety disorder F41.1 [facility] [id number] [place] [address] 34027- 7788 Feb, Controlled type 2 diabetes mellitus without complication, without long-term current use of insulin E11.9 [facility] [id number] [place] [address] 30292- 5180 Feb, Controlled type 2 diabetes mellitus without complication, without long-term current use of insulin E11.9 and Tinea cruris B35.6 [facility] [id number] [place] [address] 90203- 1071 Feb, Diabetes type 2, controlled E11.9 [facility] [id number] [place] [address] [id number] Feb, Dental examination Z01.20 [facility] [address] 52465- 4848 Feb, Dental examination Z01.20 [facility] [id number] [place] [address] 66840- 3040 Feb, Generalized anxiety disorder F41.1 [facility] [id number] [place] [address] 66523 -2468 Feb, Muscle spasm M62.838 and Diabetes type 2, controlled E11.9 [facility] [id number] [place] [address] 40297- 3337 Feb, Type 2 diabetes mellitus with hyperglycemia E11.65 [facility] [id number] [place] [address] [phone] Feb, Dental examination Z01.20 [facility] [id number] [place] [address] [id number] Feb, Encounter for dental examination Z01.20 [facility] [id number] [place] [address] 17479- 4787 Feb, Diabetes type 2, controlled E11.9 [facility] [id number] [place] [address] 74371- 2795 Feb, Type 2 diabetes mellitus with hyperglycemia E11.65 [facility] [id number] [place] [address] 14803- 1223 Feb, [place] [id number] [place] [address] 68540- 1957 Feb, Controlled type 2 diabetes mellitus without complication, without long-term current use of insulin E11.9 [place] [id number] [place] [address] 62531- 3705 January, Candidiasis B37.9 [place] [id number] [place] [address] 79589- 9344 January, Type 2 diabetes mellitus with hyperglycemia E11.65 ; Hypertension I10 and Anxiety F41.9 [place] [id number] [place] [address] 921042- 5530 January, Type 2 diabetes mellitus with hyperglycemia E11.65 [place] [id number] [place] [address] 86302- 4461 January, Controlled type 2 diabetes mellitus without complication, without long-term current use of insulin E11.9 [place] [id number] [place] [address] 22861- 1691 January, Generalized anxiety disorder F41.1 ; Autism spectrum F84.0 ; Foot callus L84 and Controlled type 2 diabetes mellitus without complication, without long-term current use of insulin E11.9 [place] [id number] [place] [address] 93388- 6381 Dec, [place] [id number] [place] [address] 51435- 0834 Dec, [place] [id number] [place] [address] 02903- 0344 Dec, Foot callus L84 and Rash R21 [place] [id number] [place] [address] 98532- 4430 Dec, Controlled type 2 diabetes mellitus without complication, without long-term current use of insulin E11.9 [place] [id number] [place] [address] 15237- 9134 Nov, [facility] [address], [place] [address] -0743 Nov, Sore throat J02.9 and Strep pharyngitis J02.0 [facility] [address] [place] [address] 55178- 8794 Nov, Generalized anxiety disorder F41.1 [place] [id number] [place] [address] 79850- 7413 Nov, [place] [id number] [place] [address] 43700- 0608 Nov, [place] [id number] [place] [address] 20759- 6679 Nov, Type 2 diabetes mellitus with hyperglycemia E11.65 [place] [id number] [place] [address] 47729- 1035 Nov, Diabetes type 2, uncontrolled E11.65 and Localized edema R60.0 [place] [id number] [place] [address] 99928- 9940 Nov, Controlled type 2 diabetes mellitus without complication, without long-term current use of insulin E11.9 [place] [id number] [place] [address] 50138- 4274 Oct, Generalized anxiety disorder F41.1 and Autism spectrum F84.0 [place] [id number] [place] [address] 44976- 3212 Oct, [place] [id number] [place] [address] 73049- 8354 Oct, Type 2 diabetes mellitus with hyperglycemia E11.65 [place] [id number] [place] [address] 80420- 6223 Oct, Type 2 diabetes mellitus with hyperglycemia E11.65 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 [place] [id number] [place] [address] 44553- 9806 Oct, [facility] [address], [place] [address]- 6827 Oct, [facility] [id number] [place] [address] [phone] Oct, Encounter for dental examination Z01.20 [facility] [id number] [place] [address] 40128- 3393 Sep, [place] [id number] [place] [address] 51486- 9826 Sep, Diabetes type 2, controlled E11.9 [facility] [place] [id number] [place] [address] 56805 -1078 Sep, Abdominal pain R10.9 and Diverticulitis of small intestine without perforation or abscess without bleeding K57.12 [place] [id number] [place] [address] 78826- 9613 Sep, [place] [id number] [place] [address] 93502- 6114 Sep, Diabetes type 2, controlled E11.9 [place] [id number] [place] [address] 40288- 5823 Sep, Controlled type 2 diabetes mellitus without complication, without long-term current use of insulin E11.9 [place] [id number] [place] [address] 29922- 0047 Sep, Type 2 diabetes mellitus 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 E11.9 and group home 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.4 [facility] [address] [place] [address] 54633 -0688 Aug, Lower abdominal pain R10.30 ; GERD without esophagitis K21.9 and Candidiasis of skin B37.2 [place] [address] [place] [address] 12480- 1913 Aug, Controlled type 2 diabetes mellitus without complication, without long-term current use of insulin E11.9 and Diabetic polyneuropathy associated with type 2 diabetes mellitus E11.42 [facility] [id number] [address] 29 Jul, 2016 Kelly infection of genital region B37.49 and Diabetes type 2, controlled E11.9 [facility] [id number], [place] [address] 10 Jul, 2016 Controlled type 2 diabetes mellitus without complication, without long-term current use of insulin E11.9 ; 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 and Acute pharyngitis due to other specified organisms J02.8 [facility] [id number], [place] [address] 09 Jul, 2016 Acute upper respiratory infection, unspecified J06.9 and Other viral agents as the cause of diseases classified elsewhere B97.89 [facility] [id number] [address] Jun, Generalized anxiety disorder F41.1 [place] [address] [place] [id number] [place] [phone] 14 Jun, 2016 [place] [address] [place] [id number] [place] [phone] Jun, Diabetes type 2, controlled E11.9 and Polyneuropathy G62.9 [facility] [id number] [place] [phone] 28 May, 2016 [place] [id number] [place] [phone] 28 May, 2016 Generalized anxiety disorder F41.1 [facility] [id number] [place] [address] 75213- 2839 15 May, 2016 Polyneuropathy G62.9 [place] [address] [place] [id number] [place] [address] 30675- 3377 13 May, 2016 [place] [id number] [place] [address] 16387- 8542 Apr, Anxiety disorder, unspecified F41.9 [place] [address] [place] [address] [address]- 4289 Mar, Abdominal pain, unspecified abdominal location R10.9 ; Type 2 diabetes mellitus with hyperglycemia E11.65 ; group home 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.4 and Diabetic polyneuropathy associated with type 2 diabetes mellitus E11.42 [place] [address] 97447- 2901 Mar, Generalized anxiety disorder F41.1 [place] [address] 41639- 3507 Mar, Generalized abdominal pain R10.84 and Other male erectile dysfunction N52.8 [facility] [place] [address] 98[address] -0966 Mar, [place] [address] 12806- 9939 Feb, Generalized anxiety disorder F41.1 [place] [address] 41410- 5227 Feb, Abdominal cramping R10.9 ; Acute bilateral low back pain without sciatica M54.5 and Malaise R53.81 [facility] [place] [address] 82[address] -6729 Feb, Candidiasis B37.9 and Costochondritis M94.0 [facility] [place] [address] 55099 -3788 Feb, Allergic rhinitis, unspecified allergic rhinitis type J30.9 [place] [address] 78803- 1717 Feb, Generalized anxiety disorder F41.1 [place] [address] 74885- 1709 Feb, [place] [address] 98310- 5120 Feb, Major depressive disorder, recurrent, moderate F33.1 [place] [address] [place] [address]- 1773 Feb, Generalized anxiety disorder F41.1 [facility] [address] 84440- 5529 January, Unspecified infectious disease B99.9 [facility] [address] [place] [id number] [place] [address] [id number] January, Dental examination Z01.20 [facility] [address] 41944- 9666 17 Jan, 2016 [facility] [address] 34563- 3734 January, Diabetes type 2, uncontrolled E11.65 [facility] [address] 69345 -3410 January, Wheezing R06.2 and History of pneumonia Z87.01 [facility] [address] 52907- 0357 January, [facility] [address] 32512- 2719 January, Depression, major, recurrent, moderate F33.1 [facility] [address] 19986- 7497 January, [facility] [address] [place] [id number] [place] [address] 15366- 4663 January, Depression, major, recurrent, moderate F33.1 [facility] [address] [place] [id number] [place] [address] 65970- 2107 January, [facility] [address] 66339- 9327 Dec, Depression, major, recurrent, moderate F33.1 [facility] [address] [place] [id number] [place] [address] 31766- 9508 Dec, Dental examination Z01.20 [facility] [address] [place] [address] [id number] [place] [address] [id number] Dec, Dental examination Z01.20 [facility] [address] [place] [address] 82390- 4391 08 Dec, 2015 Generalized anxiety disorder F41.1 [facility] [address] [address] 6476 Dec, Generalized anxiety disorder F41.1 [facility] [address] [place] [id number] [place] [address] 77136- 9981 30 Nov, 2015 [facility] [address] [place] [address] 68298- 8191 Nov, [facility] [address] [place] [id number] [place] [address] 22081- 2511 Nov, Generalized anxiety disorder F41.1 [facility] [address] [place] [address] [id number] Nov, Dental examination Z01.20 [facility] [address] [place] [address] 87229- 1205 Nov, [facility] [address] [place] [id number] [place] [address] 14440- 7037 Nov, Generalized anxiety disorder F41.1 and Autism spectrum F84.0 [facility] [address] [address]- 5896 Nov, Depression, major, recurrent, moderate F33.1 [facility] [address] [address]- 1621 Nov, [facility] [address] [place] [address] 50170- 9003 Nov, Diabetes type 2, uncontrolled E11.65 and Hypertension I10 [facility] [address] [id number] 14 Nov, 2015 Dental examination Z01.20 [facility] [address] [place] [address] 56663- 0688 Nov, [facility] [address] [place] [id number] [place] [address] 48633- 9966 Nov, Depression, major, recurrent, moderate F33.1 [facility] [address] [place] [id number] [place] [address] 17751 -0463 Nov, Penile abrasion S30.812A [facility] [address] 93992- 0966 Oct, Generalized anxiety disorder F41.1 [facility] [address] [place] [id number] [place] [address] 70781- 4025 Oct, Depression, major, recurrent, moderate F33.1 [place] [address] [place] [id number] [place] [address] 62990- 8599 Oct, Diabetes type 2, controlled E11.9 and Malaise R53.81 [facility] [address] 46683- 1269 Oct, [facility] [address] [place] [id number] [place] [address] 77672- 9896 Oct, [facility] [address] [place] [id number] [place] [address] 39615- 9611 Oct, [facility] [address] [place] [id number] [place] [address] 80471- 4134 Oct, Depression, major, recurrent, moderate F33.1 [facility] [address] [place] [id number] [place] [address] 37945- 7985 Oct, Generalized anxiety disorder F41.1 and Autism spectrum F84.0 [facility] [address] 08134- 5068 Oct, [facility] [address] [place] [id number] [place] [address] 57333- 5885 08 Oct, 2015 Major depressive disorder, recurrent, moderate F33.1 [facility] [address] [place] [address]- 9655 Oct, [facility] [address] [place] [id number] [place] [address] 75366- 5741 Oct, [facility] [address] [place] [id number] [place] [address] 33937- 7755 Oct, Generalized anxiety disorder F41.1 [facility] [address] [place] [id number] [place] [address] 10196- 0849 Oct, [facility] [address] [place] [id number] [place] [address] 16630- 0930 Oct, Back muscle spasm M62.830 [place] [address] [place] [id number] [place] [address] 73067- 8421 Oct, Major depressive disorder, recurrent, moderate F33.1 [facility] [address] [place] [id number] [place] [address] 53175 -7507 Sep, Back muscle spasm M62.830 ; Allergic rhinitis J30.9 and Person with feared health complaint in whom no diagnosis is made Z71.1 [facility] [address] [place] [id number] [place] [address] 68728- 7471 Sep, Generalized anxiety disorder F41.1 [facility] [address] [place] [id number] [place] [address] 61933 -6356 Sep, [facility] [address] [place] [id number] [place] [address] 23080- 3677 Sep, [facility] [address] [place] [id number] [place] [address] 44143- 3290 13 Sep, 2015 Mood disorder F39 ; Diabetes type 2, controlled E11.9 ; Morbid obesity due to excess calories E66.01 and Edema, unspecified type R60.9 [facility] [address] [place] [address] 87577- 7891 13 Sep, 2015 Generalized anxiety disorder F41.1 [facility] [address] [place] [id number] [place] [address] 09272- 4329 Sep, [facility] [address] [place] [address] 08211- 0881 Sep, Adjustment disorder with mixed anxiety and depressed mood F43.23 and Depression F32.9 [facility] [address] [place] [address] 71865- 3986 06 Sep, 2015 Generalized anxiety disorder F41.1 [facility] [address] [place] [id number] [place] [address] 85506- 3011 Sep, Generalized anxiety disorder 300.02 and Autism spectrum disorder F84.[address] [id number] [id number] Aug, Encounter for dental examination Z01.20 [facility] [address] [place] [id number] [place] [address] 78821- 4920 16 Aug, 2015 [facility] [address] [place] [id number] [place] [address] 55764 -3583 17 Jul, 2015 Candidiasis B37.9 [facility] [address] [place] [id number] [place] [address] 05435- 5409 Jul, [address] [id number] [id number] Jul, Encounter for dental examination Z01.20 [facility] [address] [place] [address] 08585- 2457 02 Jul, 2015 [facility] [address] [place] [id number] [place] [address] 11656- 0945 08 Jun, 2015 [facility] [address] [place] [id number] [place] [address] 39282- 8320 30 May, 2015 Diabetes type 2, controlled 250.00 and Neuropathy 355.9 [facility] [address] [place] [id number] [place] [address] 20107- 9370 16 May, 2015 [facility] [address] [place] [id number] [place] [address] 82840- 3246 Apr, Generalized anxiety disorder 300.02 and Autism spectrum disorder 299.00 [facility] [address] [place] [address] 64479- 3825 Apr, Abrasion, foot 917.0 ; Chest pain 786.50 and Back pain 724.5 [facility] [address] [place] [address] 57719- 1201 Apr, Generalized anxiety disorder 300.02 [facility] [address] [place] [id number] [place] [address] 87403- 6116 Feb, Anxiety state, unspecified 300.00 [facility] [address] [place] [id number] [place] [address] 25634- 8382 Feb, Diabetes mellitus without mention of complication, type II or unspecified type, not stated as uncontrolled 250.00 ; Generalized anxiety disorder 300.02 ; Morbid obesity 278.01 ; Benign essential hypertension 401.1 ; Chronic pain 338.29 ; Screen for STD (sexually transmitted disease) V74.5 ; Dysuria 788.1 and Kelly infection of genital region 112.2 [facility] [address] [place] [address] 14120- 8561 Feb, [facility] [address] [place] [id number] [place] [address] 88035- 6423 January, Generalized anxiety disorder 300.02 and Autism spectrum disorder 299.00 [facility] [address] [place] [address] 95488- 6518 Dec, [facility] [id number] [place] [address] 55987- 0774 Dec, [facility] [id number] [place] [address] 62617- 1500 Dec, [facility] [id number] [place] [address] 75350- 5438 Nov, [facility] [address] [id number] Nov, [facility] [address] [place] [id number] [address]- 2386 Nov, [facility] [address] [id number] [place] [address]- 3673 Nov, [facility] [place] [facility] [address] [id number] [place] [id number] Nov, [facility] [place] [facility] [address] [id number] [place] [address]- 9380 Oct, [facility] [place] [facility] [address] [id number] [place] [address]- 7493 Jul, [facility] [place] [facility] [address] [id number] [place] [address]- 6033 Jul, [facility] [place] [facility] [address] [id number] [place] [address]- 7641 Jul, [facility] [place] [facility] [address] [id number] [place] [address]- 4140 Jul, [facility] [place] [facility] [address] [id number] [place] [address]- 6497 Jul, [facility] [place] [facility] [address] [id number] [place] [address]- 4596 Jul, [facility] [place] [facility] [address] [id number] [place] [address]- 8458 Jul, [facility] [place] [facility] [address] [id number] [place] [address]- 8898 Jul, [facility] [place] [facility] [address] [id number] [place] [address]- 1160 Jul, [facility] [place] [facility] [address] [id number] [place] [address]- 0886 Jul, [facility] [place] [facility] [address] [id number] [place] [address]- 2412 Jun, [facility] [place] [facility] [address] [id number] [place] [address]- 8821 Jun, [facility] [place] [facility] [address] [id number] [place] [address]- 6572 Jun, [facility] [place] [facility] [address] [id number] [place] [address]- 4637 20 Jun, 2014 [facility] [place] [facility] [address] [id number] [place] [address]- 7601 16 Jun, 2014 [facility] [place] [facility] [address] [id number] [place] [address]- 8195 Jun, [facility] [place] [facility] [address] [id number] [place] [address]- 2478 Jun, [facility] [place] [facility] [address] [id number] [place] [address]- 4158 30 May, 2014 [facility] [place] [facility] [address] [id number] [place] [address]- 3400 30 May, 2014 [facility] [place] [facility] [address] [id number] [place] [address]- 9012 12 May, 2014 [facility] [place] [facility] [address] [id number] [place] [address]- 4397 12 May, 2014 [facility] [place] [facility] [address] [id number] [place] [address]- 7420 May, [facility] [place] [facility] [address] [id number] [place] [address]- 2729 May, [facility] [place] [facility] [address] [id number] [place] [address]- 2836 May, [facility] [place] [facility] [address] [id number] [place] [address]- 9039 May, [facility] [place] [facility] [address] [id number] [place] [address]- 7303 Apr, [facility] [place] [facility] [address] [id number] [place] [address]- 2645 Apr, [facility] [place] [facility] [address] [id number] [place] [address]- 7940 Apr, [facility] [place] [facility] [address] [id number] [place] [address]- 8086 Apr, [facility] [place] [facility] [address] [id number] [place] [address]- 0680 Apr, [facility] [place] [facility] [address] [id number] [place] [address]- 2034 Apr, [facility] [place] [facility] [address] [id number] [place] [address]- 8519 Apr, [facility] [place] [facility] [address] [id number] [place] [address]- 3761 Apr, [facility] [place] [facility] [address] [id number] [place] [address]- 1928 Apr, [facility] [place] [facility] [address] [id number] [place] [address]- 2756 Mar, [facility] [place] [facility] [address] [id number] [place] [address]- 6456 Mar, [facility] [place] [facility] [address] [id number] [place] [address]- 4819 Mar, [facility] [place] [facility] [address] [id number] [place] [address]- 5664 Mar, [facility] [place] [facility] [address] [id number] [place] [address]- 8501 Mar, [facility] [place] [facility] [address] [id number] [place] [address]- 4916 Mar, [facility] [place] [facility] [address] [id number] [place] [address]- 6046 Feb, [facility] [place] [facility] [address] [id number] [place] [address]- 8701 Feb, [facility] [place] [facility] [address] [id number] [place] [address]- 5303 Feb, [facility] [place] [facility] [address] [id number] [place] [address]- 0500 January, [facility] [address] [id number] [place] [address]- 8111 January, [facility] [place] [facility] [address] [id number] [place] [address]- 9939 January, [facility] [place] [facility] [address] [id number] [place] [address]- 1617 January, [facility] [place] [facility] [address] [id number] [place] [address]- 0385 January, [facility] [place] [facility] [address] [id number] [place] [address]- 8277 January, [facility] [place] [facility] [address] [id number] [place] [address]- 2688 Dec, [facility] [place] [facility] [address] [id number] [place] [address]- 7622 Dec, [facility] [place] [facility] [address] [id number] [place] [address]- 7619 Dec, [facility] [place] [facility] [address] [id number] [place] [address]- 7812 Dec, [facility] [place] [facility] [address] [id number] [place] [address]- 7943 Nov, [facility] [place] [facility] [address] [id number] [place] [address]- 5182 Nov, [facility] [place] [facility] [address] [id number] [place] [address]- 4182 Oct, [facility] [place] [facility] [address] [id number] [place] [address]- 8158 Oct, [facility] [place] [facility] [address] [id number] [place] [address]- 9404 Sep, [facility] [place] [facility] [address] [id number] [place] [address]- 1202 Sep, [facility] [address] [id number] [place] [address]- 1057 Aug, [facility] [place] [facility] [address] [id number] [place] [address]- 0083 Aug, [facility] [place] [facility] [address] [id number] [place] [address]- 0963 Aug, [facility] [place] [facility] [address] [id number] [place] [address]- 2909 Jul, [facility] [place] [facility] [address] [id number] [place] [address]- 0291 Jul, [facility] [place] [facility] [address] [id number] [place] [address]- 3865 Jul, [facility] [place] [facility] [address] [id number] [place] [address]- 9987 Jul, [facility] [place] [facility] [address] [id number] [place] [address]- 8631 Jul, [facility] [place] [facility] [address] [id number] [place] [address]- 4795 May, [facility] [place] [facility] [address] [id number] [place] [address]- 2271 May, [facility] [place] [facility] [address] [id number], [place] [address]- 2031 Apr, [facility] [place] [facility] [address] [id number], [place] [address]- 6327 Apr, [facility] [place] [facility] [address] [id number] [place] [address]- 6984 Mar, [facility] [place] [facility] [address] [id number], [place] [address]- 7316 Mar, [facility] [place] [facility] [address] [id number] [place] [address]- 7857 Mar, [facility] [place] [facility] [address] [id number] [place] [address]- 6361 Mar, [facility] [address] [id number] [place] [address]- 3408 Feb, [facility] [place] [facility] [address] [id number] [place] [address]- 3037 Feb, [facility] [address] [id number] [place] [address]- 8608 Feb, [facility] [place] [facility] [address] [id number] [place] [address]- 4373 Feb, [facility] [address] [id number] [place] [address]- 5251 Feb, [facility] [address] [id number] [place] [address]- 5506 January, [facility] [address] [id number] [place] [address]- 6943 January, [facility] [address] [id number] [place] [address]- 6747 January, [facility] [address] [id number] [place] [address] January, [facility] [address] [id number] [place] [address] Dec, [facility] [place] [facility] [address] [id number] [place] [address] Dec, [facility] [place] [facility] [address] [id number] [place] [address] 18 Dec, 2012 [facility] [place] [facility] [address] [id number] [place] [address] 10 Dec, 2012 [facility] [place] [facility] [address] [id number] [place] [id number] [id number] Nov, [facility] [place] [facility] [address] [id number] [place] [address] Nov, [facility] [place] [facility] [address] [id number] [place] [address] Oct, [facility] [address] [id number] [place] [address] Aug, [facility] [place] [facility] [address] [id number] [place] [address] Aug, [facility] [place] [facility] [address] [id number] [place] [address] Dec, [facility] [address] [id number] [place] [address] Dec, [facility] [place] [facility] [address] [id number] [place] [address] Dec[facility] [address] [id number] [place] [address] Nov, [facility] [address] [id number] [place] [address] Nov, [facility] [address] [id number] [place] [address] Oct, [facility] [address] [id number] [place] [address] Oct, [facility] [place] [facility] [address] [id number] [place] [address] Oct, [facility] [place] [facility] [address] [id number] [place] [address] Sep, [facility] [place] [facility] [address] [id number] [place] [address] Sep, [facility] [place] [facility] [address] [id number] [place] [address] Sep, [facility] [place] [facility] [address] [id number] [place] [address] Sep, [facility] [place] [facility] [address] [id number], [place] [address] 12 Sep, 2011 [facility] [address] [id number] [place] [address] 11 Sep, 2011 [facility] [place] [facility] [address] [facility] [id number] [place] [address] 10 Sep, 2011 [facility] [address] [facility] [id number] [place] [address] Sep, [facility] [place] [facility] [address] [id number] [place] [address] 22 Jul, 2011 [facility] [address] [facility] [id number] [place] [address], [place] [address]- [address] 15 Jul, 2011 [facility] [place] [facility] [address] [facility] [id number] [place] [address] 15 Jul, 2011 [facility] [address] [facility] [id number], [place] [address] 14 Nov, 2010 [facility] [place] [facility] [address] [facility] [id number] [place] [address] 17 Aug, 2010 [facility] [place] [facility] [address] [facility] [id number] [place] [address] 139[address] 17 Aug, 2010 [facility] [place] [facility] [address] [facility] [id number] [place] [address] 16 Aug, 2010 [facility] [place] [facility] [address] [facility] [id number], [place] [address] 15 Aug, 2010 [facility] [place] [facility] [address] [facility] [id number], [place] [address] 09 Aug, 2010 [facility] [place] [facility] [address] [facility] [id number] [place] [address] Jul, [facility] [place] [facility] [address] [facility] [id number][place] [address] Jun, [facility] [place] [facility] [address] [facility] [facility] [id number] [address] Jun, [facility] [address] [id number] [address] Sep, [facility] [address] [id number] [address] Aug, [facility] [address] [facility] [id number], [place] [address] Aug, [facility] [address] [id number] [address] Aug, [facility] [id number] [address] Jun, [facility] [id number] [address] Jun, [facility] [id number] [address] May, [facility] [id number], [place] [address] Apr, [facility] [address] [id number], [place] [address] Mar, [facility] [address] [id number], [place] [address] January, [facility] [address] [id number], [place] [address] Oct, IMMUNIZATIONS No Known Immunizations SOCIAL HISTORY Never Assessed REASON FOR VISIT PLAN OF CARE VITAL SIGNS MEDICATIONS Unknown [...] Hospitalization History celluitis of the left upper thigh-[facility] 04/2017 Hospitalization History [facility] 4 day stay 2013 Hospitalization History [facility] [place]- Shaking, unsure of blood sugar level 11/20/2017
--- OUTSIDE RECORDS SUMMARY | 2018-07-05 10:56 | XMS REPORT ---
Author Author NERISSA MARTINEZ [facility] Address [address] [place] [address] Care Team Providers Care Anatomic Pathology Manager Name Role Phone NERISSA MARTINEZ Unavailable PROBLEMS Type Condition ICD9-CM Code MGD16-IT Code Onset Dates Condition Status SNOMED Code Problem Other male erectile dysfunction N52.8 Active 107633299 Problem Diabetes type 2, controlled E11.9 Active 68533764 Problem Obesity, unspecified E66.9 Active 323633869 Problem Gastro-esophageal reflux disease with esophagitis K21.0 Active 857625827 Problem Insomnia, unspecified G47.00 Active 689983485 Problem Anxiety F41.9 Active 62406001 Problem Autism spectrum F84.0 Active 30610019 Problem Hypertriglyceridemia E78.1 Active 796205852 Problem Generalized anxiety disorder F41.1 Active 82967343 Problem Chronic fatigue R53.82 Active 59742671 Problem Type 2 diabetes mellitus 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 E11.9 Active 573861280 Problem BMI 45.0-49.9, adult Z68.42 Active 311985189 Problem Other chronic pain G89.29 Active 41239332 Problem Morbid obesity due to excess calories E66.01 Active 658667470 Problem Type 2 diabetes mellitus with hyperglycemia E11.65 Active 913563982 Problem Hypertension I10 Active 07527117 Problem Diabetes type 2, uncontrolled E11.65 Active 344563339 Problem Mild episode of recurrent major depressive disorder F33.0 Active 571462726 Problem Type 2 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 Active 15439007 Problem Hypogonadism in male E29.1 Active 39415991 Problem Seasonal allergies J30.2 Active 198217482 Problem Controlled type 2 diabetes mellitus without complication, without long -term current use of insulin E11.9 Active 474691929 Problem Diabetic polyneuropathy associated with type 2 diabetes mellitus E11.42 Active 25764734 Problem Polyneuropathy G62.9 Active 08561566 Problem 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 Active 067047424 Problem FCI 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.4 Active 563409806 Problem Diverticulitis of small intestine without perforation or abscess without bleeding K57.12 Active 21731172 Problem GERD without esophagitis K21.9 Active 852748040 Problem Type 2 diabetes mellitus with hyperglycemia E11.65 Active 472880458 ALLERGIES No Information ENCOUNTERS Encounter Location Date Diagnosis [facility] [id number] [place] [address] 38442- 0893 May, [facility] [address] 45977- 2642 May, [facility] [id number] [place] [address] 47261 -8182 Apr, Colitis K52.9 ; Abdominal discomfort R10.9 and Anxiety F41.9 [place] [id number] [place] [address] 90889- 9246 Apr, [facility] [address] 77419- 4043 Apr, Colitis K52.9 and BMI 45.0-49.9, adult Z68.42 [place] [id number] [place] [address] 90698- 7556 Apr, Diabetes type 2, uncontrolled E11.65 [facility] [id number] [place] [address] 38745- 7413 Apr, Autism spectrum F84.0 ; Generalized anxiety disorder F41.1 and BMI 45.0-49.9, adult Z68.42 [facility] [id number] [place] [address] 15400- 5591 Apr, [place] [address] 23721- 3595 Apr, BMI 45.0-49.9, adult Z68.42 [place] [id number] [place] [address] 34254- 5447 Apr, Candidiasis B37.9 ; Pain in right shoulder M25.511 ; Pain in left shoulder M25.512 ; Other chronic pain G89.29 and Morbid obesity due to excess calories E66.01 [place] [id number] [place] [address] 76172- 2001 Apr, Hypogonadism in male E29.1 [facility] [id number] [place] [address] 63400 -1958 Mar, Yeast dermatitis B37.2 and Sensation of foreign body in throat R09.89 [place] [id number] [place] [address] 67833- 3568 Mar, [place] [id number] [place] [address] 23058- 9598 Mar, Hypogonadism in male E29.1 [place] [id number] [place] [address] 47008- 8878 Mar, Hypogonadism in male E29.1 [place] [address] 24396- 9351 Mar, [place] [id number] [place] [address] 61073- 0678 Mar, Diabetes type 2, uncontrolled E11.65 and Hypogonadism in male E29.1 [facility] [id number] [place] [address] 22765- 9251 Mar, [facility] [place] [id number] [place] [address] 92616- 5356 Feb, Diabetes type 2, controlled E11.9 ; Myalgia M79.1 and BMI 45.0-49.9, adult Z68.42 [facility] [id number] [place] [address] 06450 -9741 Feb, Hematuria, unspecified type R31.9 ; Side pain R10.9 and Rash R21 [place] [id number] [place] [address] 71350- 9178 January, [place] [id number] [place] [address] 90983- 8436 January, [facility] [address] [place] [address] 45754- 2054 January, [facility] [id number] [place] [address] 90008 -4863 January, Seasonal allergies J30.2 and BMI 45.0-49.9, adult Z68.42 [place] [id number] [place] [address] 67223- 2622 January, Chronic fatigue R53.82 ; Mild episode of recurrent major depressive disorder F33.0 and Polyneuropathy G62.9 [place] [address] 48362- 0427 January, Chronic fatigue R53.82 ; BMI 45.0-49.9, adult Z68.42 and Anxiety F41.9 [place] [id number] [place] [address] 44237- 3789 January, Generalized anxiety disorder F41.1 [place] [id number] [place] [address] 90925- 4756 Dec, Autism spectrum F84.0 ; Generalized anxiety disorder F41.1 ; High risk medication use Z79.899 and BMI 45.0-49.9, adult Z68.42 [place] [id number] [place] [address] 91378- 7455 Dec, [facility] [id number] [place] [address] [phone] Dec, 2017 Encounter for dental examination Z01.20 [place] [id number] [place] [address] 75678- 0743 Dec, Mild episode of recurrent major depressive disorder F33.0 ; Type 2 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 and 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.4 [place] [id number] [place] [address] 28733- 0651 Nov, [place] [address] [address]- 3868 Nov, BMI 45.0-49.9, adult Z68.42 ; Autism spectrum F84.0 and Generalized anxiety disorder F41.1 [facility] [address] [address]- 6386 Nov, Type 2 diabetes mellitus 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 E11.9 and vermin 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.4 [facility] [address] [place] [address] [phone] Oct, Dental examination Z01.20 and Dental caries K02.9 [facility] [id number] [place] [address] 80769- 9755 Oct, [facility] [id number] [place] [address] 55782- 4638 Oct, BMI 45.0-49.9, adult Z68.42 ; Autism spectrum F84.0 and Generalized anxiety disorder F41.1 [facility] [address] [place] [address] 36189- 8559 Oct, [facility] [id number] [place] [address] 29785- 6714 Oct, [facility] [address] [place] [address] 09346- 4399 Oct, Hypertriglyceridemia E78.1 [facility] [address] [place] [address] 07154- 7591 Oct, Hypertriglyceridemia E78.1 [facility] [address] [place] [address] 31478- 9064 Sep, Controlled type 2 diabetes mellitus without complication, without long-term current use of insulin E11.9 [facility] [address] [address]- 0021 Sep, [facility] [address] [place] [address] 78036- 0352 Sep, Controlled type 2 diabetes mellitus without complication, without long-term current use of insulin E11.9 [place] [id number] [place] [address] 96282- 0427 Sep, [place] [id number] [place] [address] 57595- 2916 Sep, [place] [id number] [place] [address] 34260- 6111 Sep, BMI 45.0-49.9, adult Z68.42 ; Diabetic polyneuropathy associated with type 2 diabetes mellitus E11.42 and Chronic fatigue R53.82 [place] [id number] [place] [address] 83064- 7417 Sep, [place] [id number] [place] [address] 02826- 3390 Sep, Hypertriglyceridemia E78.1 [place] [id number] [place] [address] 04582- 8374 Aug, [place] [id number] [place] [address] 90552- 2510 Aug, Generalized anxiety disorder F41.1 [place] [id number] [place] [address] 97608- 8083 Aug, [place] [id number] [place] [address] 72261- 1752 Aug, Hypertriglyceridemia E78.1 [place] [id number] [place] [address] 35298- 3546 Jul, [place] [id number] [place] [address] 04215- 0874 Jul, [place] [id number] [place] [address] 64513- 1697 Jul, Generalized anxiety disorder F41.1 ; Autism spectrum F84.0 ; BMI 45.0-49.9, adult Z68.42 and Patient's noncompliance with other medical treatment and regimen Z91.19 [place] [id number] [place] [address] 36550- 5646 Jul, Diabetes type 2, uncontrolled E11.65 ; Diabetic polyneuropathy associated with type 2 diabetes mellitus E11.42 ; Abdominal pain , right upper quadrant R10.11 and Low back pain radiating to left lower extremity M54.5 [place] [address] 69815- 4076 Jul, Generalized anxiety disorder F41.1 [place] [id number] [place] [address] 96830- 0562 Jul, [place] [address] 88593- 4891 Jul, Hypertriglyceridemia E78.1 [place] [id number] [place] [address] 31305- 9964 Jul, Controlled type 2 diabetes mellitus without complication, without long-term current use of insulin E11.9 [place] [id number] [place] [address] 60637- 0189 Jun, [place] [address] 54424- 2931 Jun, Hypertriglyceridemia E78.1 [place] [id number] [place] [address] 56519- 4431 Jun, Controlled type 2 diabetes mellitus without complication, without long-term current use of insulin E11.9 [place] [id number] [place] [address] 06931- 4048 Jun, Generalized anxiety disorder F41.1 [place] [address] 68874- 2315 Jun, Candidiasis B37.9 [facility] [id number] [place] [address] 24574- 8557 May, [place] [address] 44017- 5100 18 May, 2017 Controlled type 2 diabetes mellitus without complication, without long-term current use of insulin E11.9 [facility] [id number] [place] [address] 96721- 2497 14 May, 2017 Hypertriglyceridemia E78.1 [facility] [id number] [place] [address] 00539- 0435 14 May, 2017 Hypertriglyceridemia E78.1 [facility] [id number] [place] [address] 98136- 8755 14 May, 2017 Hypertriglyceridemia E78.1 and Hypotestosteronemia E34.9 [place] [id number] [place] [address] 80399- 7519 14 May, 2017 Generalized anxiety disorder F41.1 [place] [id number] [place] [address] 79181- 3375 05 May, 2017 [facility] [id number] [place] [address] 88138 -5331 03 May, 2017 Abscess and cellulitis L03.90 [facility] [id number] [place] [address] [phone] Apr, [facility] [id number] [place] [address] 99874- 0445 Apr, [facility] [id number] [place] [address] 84178- 7185 Apr, Dermatofibroma of back D23.5 [facility] [id number] [place] [address] 79766 -0961 Apr, Muscle strain of left thigh, initial encounter S76.912A [facility] [address] 39197- 3314 Apr, [facility] [id number] [place] [address] 99479- 5283 Apr, Generalized anxiety disorder F41.1 [facility] [id number] [place] [address] 49226- 9587 Apr, Polyneuropathy G62.9 [facility] [address] [place] [address] 18546- 9693 Apr, GERD without esophagitis K21.9 [facility] [address] [place] [address] 42794- 0873 Apr, Generalized anxiety disorder F41.1 ; Diastasis recti M62.08 and Controlled type 2 diabetes mellitus without complication, without long-term current use of insulin E11.9 [facility] [address] [place] [address] 03494- 2616 Apr, Generalized anxiety disorder F41.1 ; Autism spectrum F84.0 and Controlled type 2 diabetes mellitus without complication, without long-term current use of insulin E11.9 [place] [address] [place] [address] 22603- 7778 Mar, Generalized anxiety disorder F41.1 ; Diastasis recti M62.08 and Controlled type 2 diabetes mellitus without complication, without long-term current use of insulin E11.9 [facility] [address] [place] [address] 18318- 5949 Mar, Controlled type 2 diabetes mellitus without complication, without long-term current use of insulin E11.9 [place] [address] [address]- 4883 Mar, Generalized anxiety disorder F41.1 [facility] [id number] [place] [address] 53502- 0641 Mar, Generalized anxiety disorder F41.1 [facility] [address] [address]- 7623 Mar, Generalized anxiety disorder F41.1 [facility] [id number] [place] [address] 73598- 0380 Mar, Generalized anxiety disorder F41.1 [facility] [address] [place] [address] 80274- 0882 Feb, Controlled type 2 diabetes mellitus without complication, without long-term current use of insulin E11.9 [facility] [id number] [place] [address] 18934- 1963 Feb, Controlled type 2 diabetes mellitus without complication, without long-term current use of insulin E11.9 and Tinea cruris B35.6 [facility] [id number] [place] [address] 04940- 9640 Feb, Diabetes type 2, controlled E11.9 [facility] [id number] [place] [address] [id number] Feb, Dental examination Z01.20 [facility] [address] 60040- 3239 Feb, Dental examination Z01.20 [facility] [id number] [place] [address] 97053- 7892 Feb, Generalized anxiety disorder F41.1 [facility] [id number] [place] [address] 18105 -3362 Feb, Muscle spasm M62.838 and Diabetes type 2, controlled E11.9 [facility] [id number] [place] [address] 88736- 8016 Feb, Type 2 diabetes mellitus with hyperglycemia E11.65 [facility] [id number] [place] [address] [phone] Feb, Dental examination Z01.20 [facility] [id number] [place] [address] [phone] Feb, Encounter for dental examination Z01.20 [facility] [id number] [place] [address] 00457- 4579 Feb, Diabetes type 2, controlled E11.9 [facility] [id number] [place] [address] 22469- 5568 Feb, Type 2 diabetes mellitus with hyperglycemia E11.65 [facility] [id number] [place] [address] 06474- 8855 Feb, [place] [id number] [place] [address] 08446- 9345 Feb, Controlled type 2 diabetes mellitus without complication, without long-term current use of insulin E11.9 [place] [id number] [place] [address] 75440- 5334 January, Candidiasis B37.9 [place] [id number] [place] [address] 44575- 9429 January, Type 2 diabetes mellitus with hyperglycemia E11.65 ; Hypertension I10 and Anxiety F41.9 [place] [id number] [place] [address] 939111- 0540 January, Type 2 diabetes mellitus with hyperglycemia E11.65 [place] [id number] [place] [address] 84845- 6377 January, Controlled type 2 diabetes mellitus without complication, without long-term current use of insulin E11.9 [place] [id number] [place] [address] 00141- 0141 January, Generalized anxiety disorder F41.1 ; Autism spectrum F84.0 ; Foot callus L84 and Controlled type 2 diabetes mellitus without complication, without long-term current use of insulin E11.9 [place] [address] [place] [address] 69013- 8081 Dec, [place] [id number] [place] [address] 47255- 4433 Dec, [place] [id number] [place] [address] 17476- 3910 Dec, Foot callus L84 and Rash R21 [place] [id number] [place] [address] 06140- 1367 Dec, Controlled type 2 diabetes mellitus without complication, without long-term current use of insulin E11.9 [place] [id number] [place] [address] 68936- 0976 Nov, [facility] [address] [address] -8616 Nov, Sore throat J02.9 and Strep pharyngitis J02.0 [facility] [address] [place] [address] 85111- 0833 Nov, Generalized anxiety disorder F41.1 [place] [id number] [place] [address] 13184- 3003 Nov, [place] [id number] [place] [address] 51661- 6357 Nov, [place] [id number] [place] [address] 90849- 7535 Nov, Type 2 diabetes mellitus with hyperglycemia E11.65 [place] [id number] [place] [address] 32384- 8286 Nov, Diabetes type 2, uncontrolled E11.65 and Localized edema R60.0 [place] [id number] [place] [address] 30295- 7496 Nov, Controlled type 2 diabetes mellitus without complication, without long-term current use of insulin E11.9 [place] [id number] [place] [address] 83533- 4502 Oct, Generalized anxiety disorder F41.1 and Autism spectrum F84.0 [place] [id number] [place] [address] 32800- 6694 Oct, [place] [id number] [place] [address] 11129- 0054 Oct, Type 2 diabetes mellitus with hyperglycemia E11.65 [place] [id number] [place] [address] 82332- 0662 Oct, Type 2 diabetes mellitus with hyperglycemia E11.65 and vermin 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.4 [place] [id number] [place] [address] 88307- 1941 Oct, [facility] [address] [address]- 2179 Oct, [facility] [id number] [place] [address] [phone] Oct, Encounter for dental examination Z01.20 [facility] [id number] [place] [address] 51820- 1335 Sep, [place] [id number] [place] [address] 55990- 4128 Sep, Diabetes type 2, controlled E11.9 [facility] [place] [id number] [place] [address] 47874 -3542 Sep, Abdominal pain R10.9 and Diverticulitis of small intestine without perforation or abscess without bleeding K57.12 [place] [id number] [place] [address] 38459- 4435 Sep, [place] [id number] [place] [address] 00411- 2676 Sep, Diabetes type 2, controlled E11.9 [place] [id number] [place] [address] 00183- 4850 Sep, Controlled type 2 diabetes mellitus without complication, without long-term current use of insulin E11.9 [place] [address] [place] [address] 45677- 4084 Sep, Type 2 diabetes mellitus 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 E11.9 and [facility] 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.4 [facility] [address] [place] [address] 94929 -3295 Aug, Lower abdominal pain R10.30 ; GERD without esophagitis K21.9 and Candidiasis of skin B37.2 [place] [address] [place] [address] 45383- 3248 Aug, Controlled type 2 diabetes mellitus without complication, without long-term current use of insulin E11.9 and Diabetic polyneuropathy associated with type 2 diabetes mellitus E11.42 [facility] [address] [address] -9917 29 Jul, 2016 Kelly infection of genital region B37.49 and Diabetes type 2, controlled E11.9 [facility] [address] [address] 10 Jul, 2016 Controlled type 2 diabetes mellitus without complication, without long-term current use of insulin E11.9 ; 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 and Acute pharyngitis due to other specified organisms J02.8 [facility] [address] [address] 09 Jul, 2016 Acute upper respiratory infection, unspecified J06.9 and Other viral agents as the cause of diseases classified elsewhere B97.89 [facility] [address] [address] Jun, Generalized anxiety disorder F41.1 [place] [address] [place] [id number] [place] [phone] 14 Jun, 2016 [place] [address] [place] [id number] [place] [phone] Jun, Diabetes type 2, controlled E11.9 and Polyneuropathy G62.9 [facility] [id number] [place] [address] 78268- 1128 28 May, 2016 [place] [id number] [place] [address] 22763- 4115 28 May, 2016 Generalized anxiety disorder F41.1 [facility] [id number] [place] [address] 35023- 8912 15 May, 2016 Polyneuropathy G62.9 [place] [address] [place] [id number] [place] [address] 00116- 1213 13 May, 2016 [place] [id number] [place] [address] 59105- 1005 Apr, Anxiety disorder, unspecified F41.9 [place] [address] [address] 37928- 8976 Mar, Abdominal pain, unspecified abdominal location R10.9 ; Type 2 diabetes mellitus with hyperglycemia E11.65 ; [facility] 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.4 and Diabetic polyneuropathy associated with type 2 diabetes mellitus E11.42 [place] [address] 39412- 4718 Mar, Generalized anxiety disorder F41.1 [place] [address] 47873- 0293 Mar, Generalized abdominal pain R10.84 and Other male erectile dysfunction N52.8 [facility] [place] [address] 06897 -0437 Mar, [place] [address] 54375- 8762 Feb, Generalized anxiety disorder F41.1 [place] [address] 49734- 4346 Feb, Abdominal cramping R10.9 ; Acute bilateral low back pain without sciatica M54.5 and Malaise R53.81 [facility] [place] [address] 58052 -1851 Feb, Candidiasis B37.9 and Costochondritis M94.0 [facility] [place] [address] 76661 -0474 Feb, Allergic rhinitis, unspecified allergic rhinitis type J30.9 [place] [address] 91301- 3524 Feb, Generalized anxiety disorder F41.1 [place] [address] 19758- 6790 Feb, [place] [address] 16531- 5361 Feb, Major depressive disorder, recurrent, moderate F33.1 [place] [address] [place] [address]- 9560 Feb, Generalized anxiety disorder F41.1 [facility] [address] 02120- 3371 January, Unspecified infectious disease B99.9 [facility] [address] [place] [id number] [place] [address] [id number] January, Dental examination Z01.20 [facility] [address] 70768- 1331 17 Jan, 2016 [facility] [address] 33073- 2344 January, Diabetes type 2, uncontrolled E11.65 [facility] [address] 10461 -3366 January, Wheezing R06.2 and History of pneumonia Z87.01 [facility] [address] 11182- 2389 January, [facility] [address] 77865- 9223 January, Depression, major, recurrent, moderate F33.1 [facility] [address] 88156- 7473 January, [facility] [address] [place] [id number] [place] [address] 39123- 7707 January, Depression, major, recurrent, moderate F33.1 [facility] [address] [place] [id number] [place] [address] 47616- 6210 January, [facility] [address] 13353- 2208 Dec, Depression, major, recurrent, moderate F33.1 [facility] [address] [place] [id number] [place] [address] 84311- 6883 Dec, Dental examination Z01.20 [facility] [address] [place] [id number] [place] [address] [id number] Dec, Dental examination Z01.20 [facility] [address] [place] [address] 14606- 7824 08 Dec, 2015 Generalized anxiety disorder F41.1 [facility] [address] [address] Dec, Generalized anxiety disorder F41.1 [facility] [address] [place] [id number] [place] [address] 91762- 8857 30 Nov, 2015 [facility] [address] [place] [address] 17511- 7020 Nov, [facility] [address] [place] [id number] [place] [address] 33207- 4763 Nov, Generalized anxiety disorder F41.1 [facility] [address] [place] [address] [id number] Nov, Dental examination Z01.20 [facility] [address] [place] [address] 84414- 0549 Nov, [facility] [address] [place] [id number] [place] [address] 01576- 6817 Nov, Generalized anxiety disorder F41.1 and Autism spectrum F84.0 [facility] [address] [address]- 3787 Nov, Depression, major, recurrent, moderate F33.1 [facility] [address] [address]- 5944 Nov, [facility] [address] [place] [address] 22180- 0678 Nov, Diabetes type 2, uncontrolled E11.65 and Hypertension I10 [facility] [address] [id number] 14 Nov, 2015 Dental examination Z01.20 [facility] [address] [place] [address] 00343- 0020 Nov, [facility] [address] [place] [id number] [place] [address] 37401- 3019 Nov, Depression, major, recurrent, moderate F33.1 [facility] [address] [place] [id number] [place] [address] 94774 -2725 Nov, Penile abrasion S30.812A [facility] [address] 96032- 7956 Oct, Generalized anxiety disorder F41.1 [facility] [address] [place] [id number] [place] [address] 28049- 2966 Oct, Depression, major, recurrent, moderate F33.1 [place] [address] [place] [id number] [place] [address] 85917- 8931 Oct, Diabetes type 2, controlled E11.9 and Malaise R53.81 [facility] [address] 72698- 5779 Oct, [facility] [address] [place] [id number] [place] [address] 68467- 3014 Oct, [facility] [address] [place] [id number] [place] [address] 57443- 1033 Oct, [facility] [address] [place] [id number] [place] [address] 48189- 8382 Oct, Depression, major, recurrent, moderate F33.1 [facility] [address] [place] [id number] [place] [address] 17801- 0520 Oct, Generalized anxiety disorder F41.1 and Autism spectrum F84.0 [facility] [address] 37948- 5823 Oct, [facility] [address] [place] [id number] [place] [address] 79610- 2269 08 Oct, 2015 Major depressive disorder, recurrent, moderate F33.1 [facility] [address] [place] [address]- 2634 Oct, [facility] [address] [place] [id number] [place] [address] 97394- 4716 Oct, [facility] [address] [place] [id number] [place] [address] 78626- 5009 Oct, Generalized anxiety disorder F41.1 [facility] [address] [place] [id number] [place] [address] 13379- 4266 Oct, [facility] [address] [place] [id number] [place] [address] 14173- 9655 Oct, Back muscle spasm M62.830 [place] [address] [place] [id number] [place] [address] 29761- 7636 Oct, Major depressive disorder, recurrent, moderate F33.1 [facility] [address] [place] [id number] [place] [address] 72413 -7580 Sep, Back muscle spasm M62.830 ; Allergic rhinitis J30.9 and Person with feared health complaint in whom no diagnosis is made Z71.1 [facility] [address] [place] [id number] [place] [address] 75051- 3871 Sep, Generalized anxiety disorder F41.1 [facility] [address] [place] [id number] [place] [address] 22290 -5227 Sep, [facility] [address] [place] [id number] [place] [address] 48686- 4563 Sep, [facility] [address] [place] [id number] [place] [address] 13532- 7105 13 Sep, 2015 Mood disorder F39 ; Diabetes type 2, controlled E11.9 ; Morbid obesity due to excess calories E66.01 and Edema, unspecified type R60.9 [facility] [address] [place] [address] 31813- 4678 13 Sep, 2015 Generalized anxiety disorder F41.1 [facility] [address] [place] [id number] [place] [address] 59574- 2118 Sep, [facility] [address] [place] [address] 32273- 5765 Sep, Adjustment disorder with mixed anxiety and depressed mood F43.23 and Depression F32.9 [facility] [address] [place] [address] 45414- 2637 06 Sep, 2015 Generalized anxiety disorder F41.1 [facility] [address] [place] [id number] [place] [address] 37913- 2265 Sep, Generalized anxiety disorder 300.02 and Autism spectrum disorder F84.[address] [id number] [id number] Aug, Encounter for dental examination Z01.20 [facility] [address] [place] [id number] [place] [address] 61922- 5063 16 Aug, 2015 [facility] [address] [place] [id number] [place] [address] 55350 -1043 17 Jul, 2015 Candidiasis B37.9 [facility] [address] [place] [id number] [place] [address] 91783- 1460 Jul, [address] [id number] [id number] Jul, Encounter for dental examination Z01.20 [facility] [address] [place] [address] 48907- 5646 02 Jul, 2015 [facility] [address] [place] [id number] [place] [address] 59534- 0226 08 Jun, 2015 [facility] [address] [place] [id number] [place] [address] 86704- 3799 30 May, 2015 Diabetes type 2, controlled 250.00 and Neuropathy 355.9 [facility] [address] [place] [id number] [place] [address] 67166- 5362 16 May, 2015 [facility] [address] [place] [id number] [place] [address] 20837- 5826 Apr, Generalized anxiety disorder 300.02 and Autism spectrum disorder 299.00 [facility] [address] [place] [address] 93750- 7226 Apr, Abrasion, foot 917.0 ; Chest pain 786.50 and Back pain 724.5 [facility] [address] [place] [address] 96701- 5200 Apr, Generalized anxiety disorder 300.02 [facility] [address] [place] [id number] [place] [address] 13834- 5637 Feb, Anxiety state, unspecified 300.00 [facility] [address] [place] [id number] [place] [address] 23410- 0278 Feb, Diabetes mellitus without mention of complication, type II or unspecified type, not stated as uncontrolled 250.00 ; Generalized anxiety disorder 300.02 ; Morbid obesity 278.01 ; Benign essential hypertension 401.1 ; Chronic pain 338.29 ; Screen for STD (sexually transmitted disease) V74.5 ; Dysuria 788.1 and Kelly infection of genital region 112.2 [facility] [address] [place] [address] 11942- 8251 Feb, [facility] [address] [place] [id number] [place] [address] 13956- 8969 January, Generalized anxiety disorder 300.02 and Autism spectrum disorder 299.00 [facility] [address] [place] [address] 93522- 9482 Dec, [facility] [id number] [place] [address] 43560- 7141 Dec, [facility] [address] [place] [address] 57820- 1847 Dec, [facility] [id number] [place] [address] 90744- 0068 Nov, [facility] [address] [id number] Nov, [facility] [address] [place] [id number] [address]- 7640 Nov, [facility] [address] [id number] [place] [address]- 2893 Nov, [facility] [place] [facility] [address] [id number] [place] [id number] Nov, [facility] [place] [facility] [address] [id number] [place] [address]- 4472 Oct, [facility] [place] [facility] [address] [id number] [place] [address]- 0126 Jul, [facility] [place] [facility] [address] [id number] [place] [address]- 1846 Jul, [facility] [place] [facility] [address] [id number] [place] [address]- 3534 Jul, [facility] [place] [facility] [address] [id number] [place] [address]- 3741 Jul, [facility] [place] [facility] [address] [id number] [place] [address]- 7378 Jul, [facility] [place] [facility] [address] [id number] [place] [address]- 3364 Jul, [facility] [place] [facility] [address] [id number] [place] [address]- 2262 Jul, [facility] [place] [facility] [address] [id number] [place] [address]- 1303 Jul, [facility] [place] [facility] [address] [id number] [place] [address]- 2657 Jul, [facility] [place] [facility] [address] [id number] [place] [address]- 7011 Jul, [facility] [place] [facility] [address] [id number] [place] [address]- 0749 Jun, [facility] [place] [facility] [address] [id number] [place] [address]- 3105 Jun, [facility] [place] [facility] [address] [id number] [place] [address]- 1123 Jun, [facility] [place] [facility] [address] [id number] [place] [address]- 1915 20 Jun, 2014 [facility] [place] [facility] [address] [id number] [place] [address]- 4588 16 Jun, 2014 [facility] [place] [facility] [address] [id number] [place] [address]- 3650 Jun, [facility] [place] [facility] [address] [id number] [place] [address]- 7934 Jun, [facility] [place] [facility] [address] [id number] [place] [address]- 7701 30 May, 2014 [facility] [place] [facility] [address] [id number] [place] [address]- 8798 30 May, 2014 [facility] [place] [facility] [address] [id number] [place] [address]- 3409 12 May, 2014 [facility] [place] [facility] [address] [id number] [place] [address]- 0324 12 May, 2014 [facility] [place] [facility] [address] [id number] [place] [address]- 4194 May, [facility] [place] [facility] [address] [id number] [place] [address]- 2814 May, [facility] [place] [facility] [address] [id number] [place] [address]- 1571 May, [facility] [place] [facility] [address] [id number] [place] [address]- 4283 May, [facility] [place] [facility] [address] [id number] [place] [address]- 7873 Apr, [facility] [place] [facility] [address] [id number] [place] [address]- 8340 Apr, [facility] [place] [facility] [address] [id number] [place] [address]- 9791 Apr, [facility] [place] [facility] [address] [id number] [place] [address]- 6692 Apr, [facility] [place] [facility] [address] [id number] [place] [address]- 9860 Apr, [facility] [place] [facility] [address] [id number] [place] [address]- 1030 Apr, [facility] [place] [facility] [address] [id number] [place] [address]- 4233 Apr, [facility] [place] [facility] [address] [id number] [place] [address]- 0654 Apr, [facility] [place] [facility] [address] [id number] [place] [address]- 5734 Apr, [facility] [place] [facility] [address] [id number] [place] [address]- 5388 Mar, [facility] [place] [facility] [address] [id number] [place] [address]- 3314 Mar, [facility] [place] [facility] [address] [id number] [place] [address]- 1373 Mar, [facility] [place] [facility] [address] [id number] [place] [address]- 1362 Mar, [facility] [place] [facility] [address] [id number] [place] [address]- 3039 Mar, [facility] [place] [facility] [address] [id number] [place] [address]- 6241 Mar, [facility] [place] [facility] [address] [id number] [place] [address]- 3347 Feb, [facility] [place] [facility] [address] [id number] [place] [address]- 3276 Feb, [facility] [place] [facility] [address] [id number] [place] [address]- 8324 Feb, [facility] [place] [facility] [address] [id number] [place] [address]- 7995 January, [facility] [address] [id number] [place] [address]- 3648 January, [facility] [place] [facility] [address] [id number] [place] [address]- 9824 January, [facility] [place] [facility] [address] [id number] [place] [address]- 1576 January, [facility] [place] [facility] [address] [id number] [place] [address]- 9533 January, [facility] [place] [facility] [address] [id number] [place] [address]- 8639 January, [facility] [place] [facility] [address] [id number] [place] [address]- 0174 Dec, [facility] [place] [facility] [address] [id number] [place] [address]- 5085 Dec, [facility] [place] [facility] [address] [id number] [place] [address]- 3823 Dec, [facility] [place] [facility] [address] [id number] [place] [address]- 5956 Dec, [facility] [place] [facility] [address] [id number] [place] [address]- 0996 Nov, [facility] [place] [facility] [address] [id number] [place] [address]- 5901 Nov, [facility] [place] [facility] [address] [id number] [place] [address]- 2539 Oct, [facility] [place] [facility] [address] [id number] [place] [address]- 1237 Oct, [facility] [place] [facility] [address] [id number] [place] [address]- 2366 Sep, [facility] [place] [facility] [address] [id number] [place] [address]- 3131 Sep, [facility] [address] [id number] [place] [address]- 0445 Aug, [facility] [place] [facility] [address] [id number] [place] [address]- 8996 Aug, [facility] [place] [facility] [address] [id number] [place] [address]- 3680 Aug, [facility] [place] [facility] [address] [id number] [place] [address]- 9928 Jul, [facility] [place] [facility] [address] [id number] [place] [address]- 7504 Jul, [facility] [place] [facility] [address] [id number] [place] [address]- 1431 Jul, [facility] [place] [facility] [address] [id number] [place] [address]- 8188 Jul, [facility] [place] [facility] [address] [id number] [place] [address]- 5031 Jul, [facility] [place] [facility] [address] [id number] [place] [address]- 2330 May, [facility] [place] [facility] [address] [id number] [place] [address]- 6286 May, [facility] [place] [facility] [address] [id number] [address]- 2739 Apr, [facility] [place] [facility] [address] [id number] [place] [address]- 5319 Apr, [facility] [place] [facility] [address] [id number] [place] [address]- 2543 Mar, [facility] [place] [facility] [address] [id number] [place] [address]- 2234 Mar, [facility] [place] [facility] [address] [id number] [place] [address]- 7746 Mar, [facility] [place] [facility] [address] [id number] [place] [address]- 1500 Mar, [facility] [address] [id number] [place] [address]- 9059 Feb, [facility] [place] [facility] [address] [id number] [place] [address]- 5568 Feb, [facility] [address] [id number] [place] [address]- 2384 Feb, [facility] [place] [facility] [address] [id number] [place] [address]- 2044 Feb, [facility] [address] [id number] [place] [address]- 3766 Feb, [facility] [address] [id number] [place] [address]- [address] January, [facility] [address] [id number] [place] [address] January, [facility] [address] [id number] [place] [address] January, [facility] [address] [id number] [place] [address] January, [facility] [place] [address] [id number] [place] [address] Dec, [facility] [place] [facility] [address] [id number] [place] [address] Dec, [facility] [place] [facility] [address] [id number] [place] [address] 18 Dec, 2012 [facility] [place] [facility] [address] [id number] [place] [address] 10 Dec, 2012 [facility] [place] [facility] [address] [id number] [place] [id number] [address] Nov, [facility] [place] [facility] [address] [id number] [place] [address] Nov, [facility] [place] [facility] [address] [id number] [place] [address] Oct, [facility] [address] [id number] [place] [address] Aug, [facility] [place] [facility] [address] [id number] [place] [address] Aug, [facility] [place] [facility] [address] [id number] [place] [address] Dec, [facility] [address] [id number] [place] [address] Dec, [facility] [place] [facility] [address] [id number] [place] [address]- [address] Dec, [facility] [address] [id number] [place] [address] Nov, [facility] [place] [facility] [address] [id number] [place] [address] Nov, [facility] [address] [id number] [place] [address] Oct, [facility] [address] [id number] [place] [address] Oct, [facility] [place] [facility] [address] [id number] [place] [address] Oct, [facility] [place] [facility] [address] [id number] [place] [address] Sep, [facility] [place] [facility] [address] [id number] [place] [address] Sep, [facility] [place] [facility] [address] [id number] [place] [address] Sep, [facility] [place] [facility] [address] [id number] [place] [address] Sep, [facility] [place] [facility] [address] [id number] [place] [address] 12 Sep, 2011 [facility] [address] [id number] [place] [address] 11 Sep, 2011 [facility] [place] [facility] [address] [facility] [id number] [place] [address]- [address] 10 Sep, 2011 [facility] [address] [facility] [id number] [place] [address] Sep, [facility] [place] [facility] [address] [id number] [place] [address] 22 Jul, 2011 [facility] [address] [facility] [id number] [place] [address], [place] [address] 15 Jul, 2011 [facility] [place] [facility] [address] [facility] [id number] [place] [address]- [address] 15 Jul, 2011 [facility] [address] [facility] [id number] [place] [address] 14 Nov, 2010 [facility] [place] [facility] [address] [facility] [id number] [place] [address] 17 Aug, 2010 [facility] [place] [facility] [address] [facility] [id number] [place] [address] 17 Aug, 2010 [facility] [place] [facility] [address] [facility] [id number] [place] [address]98 16 Aug, 2010 [facility] [place] [facility] [address] [facility] [id number] [place] [address] 15 Aug, 2010 [facility] [place] [facility] [address] [facility] [id number] [place] [address] 09 Aug, 2010 [facility] [place] [facility] [address] [facility] [id number] [place] [address] Jul, [facility] [place] [facility] [address] [facility] [id number] [place] [address] Jun, [facility] [place] [facility] [address] [facility] [id number] [place] [address] Jun, [facility] [place] [facility] [address] [id number] [address] Sep, [facility] [address] [id number] [address] Aug, [facility] [address] [facility] [id number] [place] [address] Aug, [facility] [address] [id number] [address] Aug, [facility] [address] [facility] [id number] [place] [address] Jun, [facility] [id number] [address] Jun, [facility] [id number] [address] May, [facility] [id number] [address] Apr, [facility] [address] [id number] [address] Mar, [facility] [address] [id number] [address] January, [facility] [address] [id number] [address] Oct, IMMUNIZATIONS No Known Immunizations SOCIAL HISTORY Never Assessed REASON FOR VISIT high BS PLAN OF CARE VITAL SIGNS MEDICATIONS Medication Instructions Dosage Frequency Start Date End Date Duration Status Tresiba FlexTouch 200 UNIT/ML 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
--- OUTSIDE RECORDS SUMMARY | 2018-07-05 10:57 | XMS REPORT ---
Author Author NERISSA MARTINEZ [facility] Address [address] [place] [address] Care Team Providers Care Communications Clerk Name Role Phone NERISSA MARTINEZ Unavailable PROBLEMS Type Condition ICD9-CM Code KSD95-DG Code Onset Dates Condition Status SNOMED Code Problem Other male erectile dysfunction N52.8 Active 716094108 Problem Diabetes type 2, controlled E11.9 Active 85924207 Problem Obesity, unspecified E66.9 Active 435108152 Problem Gastro-esophageal reflux disease with esophagitis K21.0 Active 710909537 Problem Insomnia, unspecified G47.00 Active 038098544 Problem Anxiety F41.9 Active 92008117 Problem Autism spectrum F84.0 Active 01153601 Problem Hypertriglyceridemia E78.1 Active 782447151 Problem Generalized anxiety disorder F41.1 Active 57102950 Problem Chronic fatigue R53.82 Active 39474991 Problem Type 2 diabetes mellitus 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 E11.9 Active 603504037 Problem BMI 45.0-49.9, adult Z68.42 Active 774005344 Problem Other chronic pain G89.29 Active 27909550 Problem Morbid obesity due to excess calories E66.01 Active 086509107 Problem Type 2 diabetes mellitus with hyperglycemia E11.65 Active 539339438 Problem Hypertension I10 Active 15773559 Problem Diabetes type 2, uncontrolled E11.65 Active 139503587 Problem Mild episode of recurrent major depressive disorder F33.0 Active 818569397 Problem Type 2 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 Active 41697568 Problem Hypogonadism in male E29.1 Active 63188774 Problem Seasonal allergies J30.2 Active 089346113 Problem Controlled type 2 diabetes mellitus without complication, without long -term current use of insulin E11.9 Active 823543342 Problem Diabetic polyneuropathy associated with type 2 diabetes mellitus E11.42 Active 31993929 Problem Polyneuropathy G62.9 Active 39281724 Problem 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 Active 361015701 Problem custodial 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.4 Active 398577651 Problem Diverticulitis of small intestine without perforation or abscess without bleeding K57.12 Active 95383657 Problem GERD without esophagitis K21.9 Active 103803931 Problem Type 2 diabetes mellitus with hyperglycemia E11.65 Active 348706297 ALLERGIES Substance Reaction Event Type Date Status Zoloft hives adverse reaction Drug Allergy Feb, Active Wellbutrin "out of it" Drug Allergy Feb, Active Clindamycin HCl itching Drug Allergy Feb, Active BuSpar local swelling Drug Allergy Feb, Active ENCOUNTERS Encounter Location Date Diagnosis [place] [id number] [place] [address] 36344- 7310 May, [place] [id number] [place] [address] 01657- 8134 May, [place] [id number] [place] [address] 62172- 6686 Apr, Colitis K52.9 and BMI 45.0-49.9, adult Z68.42 [place] [id number] [place] [address] 23422- 3902 Apr, Diabetes type 2, uncontrolled E11.65 [place] [id number] [place] [address] 04585- 1189 Apr, Autism spectrum F84.0 ; Generalized anxiety disorder F41.1 and BMI 45.0-49.9, adult Z68.42 [place] [id number] [place] [address] 41668- 0178 Apr, [place] [id number] [place] [address] 43231- 2124 Apr, BMI 45.0-49.9, adult Z68.42 [place] [id number] [place] [address] 69370- 6494 Apr, Candidiasis B37.9 ; Pain in right shoulder M25.511 ; Pain in left shoulder M25.512 ; Other chronic pain G89.29 and Morbid obesity due to excess calories E66.01 [place] [id number] [place] [address] 81126- 6222 Apr, Hypogonadism in male E29.1 [facility] [id number] [place] [address] 23285 -0379 Mar, Yeast dermatitis B37.2 and Sensation of foreign body in throat R09.89 [place] [id number] [place] [address] 70298- 8631 Mar, [facility] [id number] [place] [address] 89506- 2821 Mar, Hypogonadism in male E29.1 [place] [address] 22677- 9106 Mar, Hypogonadism in male E29.1 [place] [id number] [place] [address] 30069- 9997 Mar, [place] [address] 01618- 7184 Mar, Diabetes type 2, uncontrolled E11.65 and Hypogonadism in male E29.1 [place] [id number] [place] [address] 99726- 4291 Mar, [place] [id number] [place] [address] 89674- 5325 Feb, Diabetes type 2, controlled E11.9 ; Myalgia M79.1 and BMI 45.0-49.9, adult Z68.42 [facility] [id number] [place] [address] 83955 -1206 Feb, Hematuria, unspecified type R31.9 ; Side pain R10.9 and Rash R21 [place] [id number] [place] [address] 33056- 1069 January, [facility] [id number] [place] [address] 92348- 8786 January, [place] [address] [place] [address]- 9785 January, [facility] [id number] [place] [address] 82056 -5250 January, Seasonal allergies J30.2 and BMI 45.0-49.9, adult Z68.42 [facility] [id number] [place] [address] 15377- 7380 January, Chronic fatigue R53.82 ; Mild episode of recurrent major depressive disorder F33.0 and Polyneuropathy G62.9 [facility] [id number] [place] [address] 75943- 1933 January, Chronic fatigue R53.82 ; BMI 45.0-49.9, adult Z68.42 and Anxiety F41.9 [facility] [id number] [place] [address] 71261- 5900 January, Generalized anxiety disorder F41.1 [place] [address] 64317- 3006 Dec, Autism spectrum F84.0 ; Generalized anxiety disorder F41.1 ; High risk medication use Z79.899 and BMI 45.0-49.9, adult Z68.42 [facility] [id number] [place] [address] 85592- 3731 Dec, [facility] [id number] [place] [address] [phone] Dec, 2017 Encounter for dental examination Z01.20 [place] [id number] [place] [address] 02529- 6256 11 Dec, 2017 Mild episode of recurrent major depressive disorder F33.0 ; Type 2 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 and delineator 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.4 [facility] [id number] [place] [address] 71656- 2518 27 Nov, 2017 [place] [address] 39313- 8728 Nov, BMI 45.0-49.9, adult Z68.42 ; Autism spectrum F84.0 and Generalized anxiety disorder F41.1 [facility] [address] [place] [address] 82112- 1202 Nov, Type 2 diabetes mellitus 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 E11.9 and delineator 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.4 [facility] [address] [id number] Oct, Dental examination Z01.20 and Dental caries K02.9 [facility] [id number] [place] [address] 18052- 1409 Oct, [facility] [id number] [place] [address] 13581- 8510 Oct, BMI 45.0-49.9, adult Z68.42 ; Autism spectrum F84.0 and Generalized anxiety disorder F41.1 [facility] [id number] [place] [address] 33664- 7392 Oct, [facility] [id number] [place] [address] 62475- 2222 Oct, [facility] [id number] [place] [address] 83601- 0570 Oct, Hypertriglyceridemia E78.1 [facility] [id number] [place] [address] 74638- 6424 Oct, Hypertriglyceridemia E78.1 [facility] [address] [place] [address] 63390- 4751 Sep, Controlled type 2 diabetes mellitus without complication, without long-term current use of insulin E11.9 [facility] [address] [place] [address] 15311- 9221 Sep, [facility] [id number] [place] [address] 30214- 5849 Sep, Controlled type 2 diabetes mellitus without complication, without long-term current use of insulin E11.9 [place] [address] [place] [address] 71297- 7830 15 Sep, 2017 [place] [id number] [place] [address] 93414- 0817 Sep, [place] [id number] [place] [address] 21045- 9437 Sep, BMI 45.0-49.9, adult Z68.42 ; Diabetic polyneuropathy associated with type 2 diabetes mellitus E11.42 and Chronic fatigue R53.82 [place] [id number] [place] [address] 94591- 6030 Sep, [place] [id number] [place] [address] 76624- 1469 Sep, Hypertriglyceridemia E78.1 [place] [id number] [place] [address] 07030- 5268 Aug, [place] [id number] [place] [address] 62282- 0889 Aug, Generalized anxiety disorder F41.1 [place] [id number] [place] [address] 64297- 1343 Aug, [place] [id number] [place] [address] 57415- 6104 Aug, Hypertriglyceridemia E78.1 [place] [id number] [place] [address] 99577- 0412 Jul, [place] [id number] [place] [address] 09324- 0796 Jul, [place] [id number] [place] [address] 13997- 9346 Jul, Generalized anxiety disorder F41.1 ; Autism spectrum F84.0 ; BMI 45.0-49.9, adult Z68.42 and Patient's noncompliance with other medical treatment and regimen Z91.19 [place] [id number] [place] [address] 04285- 4750 Jul, Diabetes type 2, uncontrolled E11.65 ; Diabetic polyneuropathy associated with type 2 diabetes mellitus E11.42 ; Abdominal pain , right upper quadrant R10.11 and Low back pain radiating to left lower extremity M54.5 [facility] [address] [place] [address] 39513- 0420 Jul, Generalized anxiety disorder F41.1 [place] [id number] [place] [address] 89227- 4164 Jul, [place] [id number] [place] [address] 12680- 1310 Jul, Hypertriglyceridemia E78.1 [place] [id number] [place] [address] 73469- 4171 Jul, Controlled type 2 diabetes mellitus without complication, without long-term current use of insulin E11.9 [place] [id number] [place] [address] 17328- 5608 Jun, [place] [id number] [place] [address] 37278- 0809 Jun, Hypertriglyceridemia E78.1 [place] [address] [place] [address] 11572- 3989 Jun, Controlled type 2 diabetes mellitus without complication, without long-term current use of insulin E11.9 [place] [address] [place] [address] 40452- 6082 Jun, Generalized anxiety disorder F41.1 [place] [address] [place] [address] 21101- 4295 Jun, Candidiasis B37.9 [place] [id number] [place] [address] 93345- 6045 May, [place] [address] [place] [address] 81023- 2851 May, Controlled type 2 diabetes mellitus without complication, without long-term current use of insulin E11.9 [facility] [address] [place] [address] 87279- 9233 14 May, 2017 Hypertriglyceridemia E78.1 [facility] [id number] [place] [address] 17717- 2384 14 May, 2017 Hypertriglyceridemia E78.1 [facility] [id number] [place] [address] 57632- 0263 14 May, 2017 Hypertriglyceridemia E78.1 and Hypotestosteronemia E34.9 [facility] [id number] [place] [address] 66848- 5524 14 May, 2017 Generalized anxiety disorder F41.1 [place] [id number] [place] [address] 75583- 2384 05 May, 2017 [facility] [id number] [place] [address] 09674 -1813 03 May, 2017 Abscess and cellulitis L03.90 [facility] [id number] [place] [address] [id number] Apr, [facility] [id number] [place] [address] 61445- 1570 Apr, [facility] [id number] [place] [address] 35235- 4319 Apr, Dermatofibroma of back D23.5 [facility] [address] [place] [address] 89829 -7393 Apr, Muscle strain of left thigh, initial encounter S76.912A [facility] [address] [place] [address] 27228- 7070 Apr, [facility] [id number] [place] [address] 99336- 8261 Apr, Generalized anxiety disorder F41.1 [facility] [id number] [place] [address] 14500- 4553 Apr, Polyneuropathy G62.9 [facility] [address] [address]- 8745 Apr, GERD without esophagitis K21.9 [facility] [id number] [place] [address] 01881- 5890 Apr, Generalized anxiety disorder F41.1 ; Diastasis recti M62.08 and Controlled type 2 diabetes mellitus without complication, without long-term current use of insulin E11.9 [place] [id number] [place] [address] 40423- 0382 Apr, Generalized anxiety disorder F41.1 ; Autism spectrum F84.0 and Controlled type 2 diabetes mellitus without complication, without long-term current use of insulin E11.9 [place] [address] [place] [address] 72687- 1821 Mar, Generalized anxiety disorder F41.1 ; Diastasis recti M62.08 and Controlled type 2 diabetes mellitus without complication, without long-term current use of insulin E11.9 [place] [id number] [place] [address] 11867- 2741 Mar, Controlled type 2 diabetes mellitus without complication, without long-term current use of insulin E11.9 [place] [address] [address]- 0425 Mar, Generalized anxiety disorder F41.1 [place] [id number] [place] [address] 32229- 4608 Mar, Generalized anxiety disorder F41.1 [place] [address] [address]- 5785 Mar, Generalized anxiety disorder F41.1 [place] [id number] [place] [address] 85309- 9741 Mar, Generalized anxiety disorder F41.1 [place] [address] [address]- 2334 Feb, Controlled type 2 diabetes mellitus without complication, without long-term current use of insulin E11.9 [place] [address] [address]- 7706 Feb, Controlled type 2 diabetes mellitus without complication, without long-term current use of insulin E11.9 and Tinea cruris B35.6 [facility] [id number] [place] [address] 17785- 8586 Feb, Diabetes type 2, controlled E11.9 [facility] [id number] [place] [address] [phone] Feb, Dental examination Z01.20 [facility] [id number] [place] [address] 38678- 1490 Feb, Dental examination Z01.20 [facility] [id number] [place] [address] 98460- 4368 Feb, Generalized anxiety disorder F41.1 [facility] [id number] [place] [address] 09881 -6547 Feb, Muscle spasm M62.838 and Diabetes type 2, controlled E11.9 [facility] [address] [place] [address] 64985- 1903 Feb, Type 2 diabetes mellitus with hyperglycemia E11.65 [facility] [id number] [place] [address] [id number] Feb, Dental examination Z01.20 [facility] [id number] [place] [address] [id number] Feb, Encounter for dental examination Z01.20 [facility] [address] [place] [address] 44077- 5504 Feb, Diabetes type 2, controlled E11.9 [facility] [id number] [place] [address] 31697- 5965 Feb, Type 2 diabetes mellitus with hyperglycemia E11.65 [facility] [id number] [place] [address] 39138- 6223 Feb, [facility] [address] [place] [address]- 8467 Feb, Controlled type 2 diabetes mellitus without complication, without long-term current use of insulin E11.9 [facility] [id number] [place] [address] 36175- 1215 January, Candidiasis B37.9 [facility] [id number] [place] [address] 92232- 2422 January, Type 2 diabetes mellitus with hyperglycemia E11.65 ; Hypertension I10 and Anxiety F41.9 [place] [address] 64279- 9878 January, Type 2 diabetes mellitus with hyperglycemia E11.65 [place] [address] 20184- 1725 January, Controlled type 2 diabetes mellitus without complication, without long-term current use of insulin E11.9 [place] [id number] [place] [address] 30880- 0220 January, Generalized anxiety disorder F41.1 ; Autism spectrum F84.0 ; Foot callus L84 and Controlled type 2 diabetes mellitus without complication, without long-term current use of insulin E11.9 [facility] [id number] [place] [address] 72383- 7183 Dec, [facility] [id number] [place] [address] 98100- 9157 Dec, [place] [id number] [place] [address] 95157- 3996 Dec, Foot callus L84 and Rash R21 [place] [id number] [place] [address] 51517- 3080 Dec, Controlled type 2 diabetes mellitus without complication, without long-term current use of insulin E11.9 [facility] [id number] [place] [address] 70104- 4191 Nov, [facility] [address] 80926 -9589 Nov, Sore throat J02.9 and Strep pharyngitis J02.0 [place] [id number] [place] [address] 89410- 2037 Nov, Generalized anxiety disorder F41.1 [place] [id number] [place] [address] 57380- 1506 Nov, [place] [address] 16604- 3725 Nov, [place] [id number] [place] [address] 03035- 6847 Nov, Type 2 diabetes mellitus with hyperglycemia E11.65 [place] [id number] [place] [address] 14038- 8620 Nov, Diabetes type 2, uncontrolled E11.65 and Localized edema R60.0 [place] [id number] [place] [address] 98847- 7863 Nov, Controlled type 2 diabetes mellitus without complication, without long-term current use of insulin E11.9 [place] [id number] [place] [address] 28560- 4232 Oct, Generalized anxiety disorder F41.1 and Autism spectrum F84.0 [place] [id number] [place] [address] 71410- 6825 Oct, [place] [id number] [place] [address] 73488- 1416 Oct, Type 2 diabetes mellitus with hyperglycemia E11.65 [place] [id number] [place] [address] 35542- 4934 Oct, Type 2 diabetes mellitus with hyperglycemia E11.65 and custodial 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.4 [place] [address] [place] [address] 94589- 7493 Oct, [place] [id number] [place] [address] 22751- 6961 Oct, [facility] [address] [place] [address] [id number] Oct, Encounter for dental examination Z01.20 [place] [id number] [place] [address] 38669- 2160 Sep, [place] [id number] [place] [address] 11669- 8051 Sep, Diabetes type 2, controlled E11.9 [facility] [place] [id number] [place] [address] 44357 -6385 Sep, Abdominal pain R10.9 and Diverticulitis of small intestine without perforation or abscess without bleeding K57.12 [place] [id number] [place] [address] 43591- 9004 Sep, [place] [address] 72131- 2169 Sep, Diabetes type 2, controlled E11.9 [place] [id number] [place] [address] 55964- 4890 Sep, Controlled type 2 diabetes mellitus without complication, without long-term current use of insulin E11.9 [place] [address] [place] [address] 90698- 6791 Sep, Type 2 diabetes mellitus 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 E11.9 and delineator 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.4 [facility] [place] [id number] [place] [address] 46838 -9030 Aug, Lower abdominal pain R10.30 ; GERD without esophagitis K21.9 and Candidiasis of skin B37.[address] 64483- 3114 Aug, Controlled type 2 diabetes mellitus without complication, without long-term current use of insulin E11.9 and Diabetic polyneuropathy associated with type 2 diabetes mellitus E11.42 [facility] [place] [id number] [place] [address] 80237 -2602 Jul, Kelly infection of genital region B37.49 and Diabetes type 2, controlled E11.9 [facility] [address] [place] [address] 70184- 0499 Jul, Controlled type 2 diabetes mellitus without complication, without long-term current use of insulin E11.9 ; 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 [id number] [place] [address] 40072 -4595 Jul, Acute upper respiratory infection, unspecified J06.9 and Other viral agents as the cause of diseases classified elsewhere B97.89 [place] [id number] [place] [address] 59123- 9425 Jun, Generalized anxiety disorder F41.1 [place] [id number] [place] [address] 38486- 2883 14 Jun, 2016 [place] [id number] [place] [address] 74819- 1990 Jun, Diabetes type 2, controlled E11.9 and Polyneuropathy G62.9 [place] [id number] [place] [address] 90525- 1745 May, [facility] [address] [place] [address] 97199- 1274 May, Generalized anxiety disorder F41.1 [place] [id number] [place] [address] 22622- 6659 15 May, 2016 Polyneuropathy G62.9 [facility] [address] [place] [address] 72450- 0154 May, [place] [id number] [place] [address] [id number]- 2047 Apr, Anxiety disorder, unspecified F41.9 [facility] [id number] [place] [address] [phone] Mar, Abdominal pain, unspecified abdominal location R10.9 ; Type 2 diabetes mellitus with hyperglycemia E11.65 ; delineator 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.4 and Diabetic polyneuropathy associated with type 2 diabetes mellitus E11.42 [place] [id number] [place] [address] 26210- 3242 Mar, Generalized anxiety disorder F41.1 [place] [address] [id number] [place] [address] 34875- 7511 Mar, Generalized abdominal pain R10.84 and Other male erectile dysfunction N52.8 [facility] [id number] [place], [place] [address] 65934 -6392 Mar, [place] [address] [address]17- 4664 Feb, Generalized anxiety disorder F41.1 [place] [address] 98984- 2109 Feb, Abdominal cramping R10.9 ; Acute bilateral low back pain without sciatica M54.5 and Malaise R53.81 [facility] [id number] [place] [address] 27821 -4229 Feb, Candidiasis B37.9 and Costochondritis M94.0 [facility] [id number] [place] [address] 70021 -0778 Feb, Allergic rhinitis, unspecified allergic rhinitis type J30.9 [place] [id number] [place] [address] 36112- 3055 Feb, Generalized anxiety disorder F41.1 [place] [id number] [place] [address] 56534- 6089 Feb, [place] [id number] [place] [address] 25156- 4066 Feb, Major depressive disorder, recurrent, moderate F33.1 [place] [id number] [place] [address] 18666- 1518 16 Feb, 2016 Generalized anxiety disorder F41.1 [facility] [id number] [place] [address] 86257- 7469 January, Unspecified infectious disease B99.9 [facility] [id number] [place] [address] [id number] January, Dental examination Z01.20 [facility] [id number] [place] [address] 60177- 6844 January, [facility] [address] 48969- 0172 January, Diabetes type 2, uncontrolled E11.65 [facility] [address] 87395 -6632 January, Wheezing R06.2 and History of pneumonia Z87.01 [facility] [id number] [place] [address] 97278- 8423 January, [facility] [address] 74563- 1425 January, Depression, major, recurrent, moderate F33.1 [place] [id number] [place] [address] 18971- 4267 January, [facility] [id number] [place] [address] 99644- 6411 January, Depression, major, recurrent, moderate F33.1 [facility] [id number] [place] [address] 32267- 6461 January, [facility] [id number] [place] [address] 27436- 1411 Dec, Depression, major, recurrent, moderate F33.1 [facility] [id number] [place] [address] 33872- 0601 Dec, Dental examination Z01.20 [facility] [id number] [place] [address] [id number] 18 Dec, 2015 Dental examination Z01.20 [facility] [address] [address] 8911 08 Dec, 2015 Generalized anxiety disorder F41.1 [facility] [id number] [place] [address] 09496- 0892 Dec, Generalized anxiety disorder F41.1 [facility] [id number] [place] [address] 14648- 3017 30 Nov, 2015 [facility] [id number] [place] [address] 85290- 8349 Nov, [facility] [id number] [place] [address] 80622- 5930 Nov, Generalized anxiety disorder F41.1 [facility] [id number] [place] [address] [id number] 24 Nov, 2015 Dental examination Z01.20 [facility] [id number] [place] [address] 64943- 2304 Nov, [facility] [id number] [place] [address] 32430- 6846 Nov, Generalized anxiety disorder F41.1 and Autism spectrum F84.0 [facility] [id number] [place] [address] 49568- 1950 Nov, Depression, major, recurrent, moderate F33.1 [facility] [id number] [place] [address] 31696- 1619 Nov, [facility] [id number] [place] [address] 23930- 3004 Nov, Diabetes type 2, uncontrolled E11.65 and Hypertension I10 [facility] [id number] [place] [address] [id number] Nov, 2015 Dental examination Z01.20 [facility] [address] [place] [address] 33138- 4066 03 Nov, 2015 [facility] [id number] [place] [address] 97879- 6328 Nov, Depression, major, recurrent, moderate F33.1 [facility] [address] [place] [address] 64793 -5113 Nov, Penile abrasion S30.812A [facility] [id number] [place] [address] 35066- 2809 Oct, Generalized anxiety disorder F41.1 [facility] [id number] [place] [address] 14686- 1718 Oct, Depression, major, recurrent, moderate F33.1 [place] [id number] [place] [address] 11288- 2133 Oct, Diabetes type 2, controlled E11.9 and Malaise R53.81 [facility] [id number] [place] [address] 45334- 4191 Oct, [facility] [id number] [place] [address] 48734- 9309 Oct, [facility] [id number] [place] [address] 45678- 3791 Oct, [facility] [id number] [place] [address] 34675- 7006 Oct, Depression, major, recurrent, moderate F33.1 [facility] [id number] [place] [address] 10438- 2731 Oct, Generalized anxiety disorder F41.1 and Autism spectrum F84.0 [facility] [id number] [place] [address] 37065- 0057 Oct, [facility] [id number] [place] [address] 40072- 8386 Oct, Major depressive disorder, recurrent, moderate F33.1 [facility] [id number] [place] [address] 13095- 7555 Oct, [facility] [id number] [place] [address] 33648- 5189 08 Oct, 2015 [facility] [id number] [place] [address] 22733- 6469 Oct, Generalized anxiety disorder F41.1 [facility] [id number] [place] [address] 79909- 8816 Oct, [facility] [id number] [place] [address] 09721- 2323 Oct, Back muscle spasm M62.830 [facility] [id number] [place] [address] 00258- 4392 Oct, Major depressive disorder, recurrent, moderate F33.1 [facility] [id number] [place] [address] 32670 -5396 Sep, Back muscle spasm M62.830 ; Allergic rhinitis J30.9 and Person with feared health complaint in whom no diagnosis is made Z71.1 [facility] [id number] [place] [address] 90234- 6908 Sep, Generalized anxiety disorder F41.1 [facility] [id number] [place] [address] 62460 -1042 Sep, [facility] [id number] [place] [address] 71369- 8225 Sep, [facility] [id number] [place] [address] 92885- 9231 Sep, Mood disorder F39 ; Diabetes type 2, controlled E11.9 ; Morbid obesity due to excess calories E66.01 and Edema, unspecified type R60.9 [facility] [id number] [place] [address] 47782- 9188 Sep, Generalized anxiety disorder F41.1 [facility] [address] [place] [address] 72441- 0635 Sep, [facility] [address] [place] [place] [address]- 5404 Sep, Adjustment disorder with mixed anxiety and depressed mood F43.23 and Depression F32.9 [facility] [id number] [place] [address] 86464- 0488 Sep, Generalized anxiety disorder F41.1 [facility] [id number] [place] [address] 32877- 5675 Sep, Generalized anxiety disorder 300.02 and Autism spectrum disorder F84.0 [facility] [address] [id number] [id number] Aug, Encounter for dental examination Z01.20 [facility] [id number] [place] [address] 14403- 1930 16 Aug, 2015 [facility] [id number] [place] [address] 81745 -2173 17 Jul, 2015 Candidiasis B37.9 [facility] [id number] [place] [address] 57100- 7773 13 Jul, 2015 [facility] [address] [place], [place] [address] [id number] [id number] Jul, Encounter for dental examination Z01.20 [facility] [address] [place] [address] 04333- 9838 02 Jul, 2015 [place] [id number] [place] [address] 96222- 3866 Jun, [facility] [id number] [place] [address] 67997- 0327 30 May, 2015 Diabetes type 2, controlled 250.00 and Neuropathy 355.9 [facility] [id number] [place] [address] 20545- 0954 16 May, 2015 [facility] [address] [place] [address] 73861- 1232 Apr, Generalized anxiety disorder 300.02 and Autism spectrum disorder 299.00 [facility] [address] [address]- 7698 Apr, Abrasion, foot 917.0 ; Chest pain 786.50 and Back pain 724.5 [facility] [id number] [place] [address] 139704- 6589 Apr, Generalized anxiety disorder 300.02 [facility] [id number] [place] [address] 01372- 7626 Feb, Anxiety state, unspecified 300.00 [facility] [id number] [place] [address] 73279- 3237 Feb, Diabetes mellitus without mention of complication, type II or unspecified type, not stated as uncontrolled 250.00 ; Generalized anxiety disorder 300.02 ; Morbid obesity 278.01 ; Benign essential hypertension 401.1 ; Chronic pain 338.29 ; Screen for STD (sexually transmitted disease) V74.5 ; Dysuria 788.1 and Kelly infection of genital region 112.2 [facility] [id number] [place] [address] 13972- 2176 Feb, [facility] [id number] [place] [address] 06968- 1272 January, Generalized anxiety disorder 300.02 and Autism spectrum disorder 299.00 [facility] [address] [place] [address] 41605- 8847 Dec, [facility] [address] [address]- 2232 Dec, [facility] [id number] [place] [address] 85200- 3615 Dec, [facility] [id number] [place] [address] 83806- 2072 Nov, [facility] [id number] [id number] Nov, [facility] [id number] [place] [address] 20247- 1849 Nov, [facility] [place] [facility] [address] [id number] [place] [address]- 9851 Nov, [facility] [place] [facility] [address] [id number] [place] [id number] Nov, [facility] [place] [facility] [address] [id number] [place] [address]- 9330 Oct, [facility] [place] [facility] [address] [id number] [place] [address]- 1055 Jul, [facility] [place] [facility] [address] [id number] [place] [address]- 2852 Jul, [facility] [place] [facility] [address] [id number] [place] [address]- 0756 Jul, [facility] [place] [facility] [address] [id number] [place] [address]- 2068 Jul, [facility] [place] [facility] [address] [id number] [place] [address]- 4652 Jul, [facility] [place] [facility] [address] [id number] [place] [address]- 1591 Jul, [facility] [place] [facility] [address] [id number] [place] [address]- 0988 Jul, [facility] [place] [facility] [address] [id number] [place] [address]- 8520 Jul, [facility] [place] [facility] [address] [id number] [place] [address]- 9346 Jul, [facility] [place] [facility] [address] [id number] [place] [address]- 8041 Jul, [facility] [place] [facility] [address] [id number] [place] [address]- 8694 Jun, [facility] [place] [facility] [address] [id number] [place] [address]- 0152 Jun, [facility] [place] [facility] [address] [id number] [place] [address]- 4597 Jun, [facility] [place] [facility] [address] [id number] [place] [address]- 8915 Jun, [facility] [place] [facility] [address] [id number] [place] [address]- 7040 16 Jun, 2014 [facility] [place] [facility] [address] [id number] [place] [address]- 3410 Jun, [facility] [place] [facility] [address] [id number] [place] [address]- 0232 Jun, [facility] [place] [facility] [address] [id number] [place] [address]- 2666 30 May, 2014 [facility] [place] [facility] [address] [id number] [place] [address]- 0270 30 May, 2014 [facility] [place] [facility] [address] [id number] [place] [address]- 2056 May, [facility] [place] [facility] [address] [id number] [place] [address]- 4821 May, [facility] [place] [facility] [address] [id number] [place] [address]- 0695 May, [facility] [place] [facility] [address] [id number] [place] [address]- 5410 May, [facility] [place] [facility] [address] [id number] [place] [address]- 2575 May, [facility] [place] [facility] [address] [id number] [place] [address]- 2684 May, [facility] [place] [facility] [address] [id number] [place] [address]- 5913 Apr, [facility] [place] [facility] [address] [id number] [place] [address]- 2741 Apr, [facility] [place] [facility] [address] [id number] [place] [address]- 5886 Apr, [facility] [place] [facility] [address] [id number] [place] [address]- 1341 Apr, [facility] [place] [facility] [address] [id number] [place] [address]- 0230 Apr, [facility] [place] [facility] [address] [id number] [place] [address]- 5572 Apr, [facility] [place] [facility] [address] [id number] [place] [address]- 5966 Apr, [facility] [place] [facility] [address] [id number] [place] [address]- 5785 Apr, [facility] [place] [facility] [address] [id number] [place] [address]- 2341 Apr, [facility] [place] [facility] [address] [id number] [place] [address]- 6439 Mar, [facility] [place] [facility] [address] [id number] [place] [address]- 9702 Mar, [facility] [place] [facility] [address] [id number] [place] [address]- 4237 Mar, [facility] [place] [facility] [address] [id number] [place] [address]- 2628 Mar, [facility] [place] [facility] [address] [id number] [place] [address]- 5958 Mar, [facility] [place] [facility] [address] [id number] [place] [address]- 6533 Mar, [facility] [place] [facility] [address] [id number] [place] [address]- 5836 Feb, [facility] [place] [facility] [address] [id number] [place] [address]- 1734 Feb, [facility] [place] [facility] [address] [id number] [place] [address]- 1455 Feb, [facility] [place] [facility] [address] [id number] [place] [address]- 5882 January, [facility] [place] [facility] [address] [id number] [place] [address]- 7687 January, [facility] [place] [facility] [address] [id number] [place] [address]- 4829 January, [facility] [place] [facility] [address] [id number] [place] 9846 January, [facility] [place] [facility] [address] [id number] [place] [address]- 9521 January, [facility] [place] [facility] [address] [id number] [place] [address]- 9407 January, [facility] [place] [facility] [address] [id number] [place] [address]- 9010 Dec, [facility] [place] [facility] [address] [id number] [place] [address]- 1926 Dec, [facility] [place] [facility] [address] [id number] [place] [address]- 5139 Dec, [facility] [place] [facility] [address] [id number] [place] [address]- 6023 Dec, [facility] [place] [facility] [address] [id number] [place] [address]- 8021 Nov, [facility] [place] [facility] [address] [id number] [place] [address]- 2335 Nov, [facility] [place] [facility] [address] [id number] [place] [address]- 9102 Oct, [facility] [place] [facility] [address] [id number] [place] 8266 Oct, [facility] [place] [facility] [address] [id number] [place] [address]- 8774 Sep, [facility] [place] [facility] [address] [id number] [place] [address]- 3084 Sep, [facility] [place] [facility] [address] [id number] [place] [address]- 2434 Aug, [facility] [place] [facility] [address] [id number] [place] [address]- 2994 Aug, [facility] [place] [facility] [address] [id number] [place] [address]- 3422 Aug, [facility] [place] [facility] [address] [id number] [place] [address]- 2072 Jul, [facility] [place] [facility] [address] [id number] [place] [address]- 5717 Jul, [facility] [place] [facility] [address] [id number] [place] 3744 Jul, [facility] [place] [facility] [address] [id number] [place] [address]- 5407 Jul, [facility] [place] [facility] [address] [id number] [place] [address]- 4306 Jul, [facility] [place] [facility] [address] [id number] [place] [address]- 0749 May, [facility] [place] [facility] [address] [id number] [place] [address]- 6942 May, [facility] [place] [facility] [address] [id number] [place] [address]- 3764 Apr, [facility] [place] [facility] [address] [id number] [place] [address]- 4654 Apr, [facility] [place] [facility] [address] [id number] [place] [address]- 9188 Mar, [facility] [place] [facility] [address] [id number] [place] [address]- 7674 Mar, [facility] [place] [facility] [address] [id number] [place] [address]- 1806 Mar, [facility] [place] [facility] [address] [id number] [place] [address]- 5245 Mar, [facility] [place] [facility] [address] [id number] [place] [address]- 1039 Feb, [facility] [address] [id number] [place] [address]- 6345 Feb, [facility] [address] [id number] [place] [address]- 9522 Feb, [facility] [address] [id number] [place] [address]- 5593 Feb, [facility] [address] [id number] [place] [address]- 2368 Feb, [facility] [address] [id number] [place] [address]- 7937 January, [facility] [address] [id number] [place] [address]- 2581 January, [facility] [address] [id number] [place] [address]- 8165 January, [facility] [address] [id number] [place] [address]- 7615 January, [facility] [address] [id number] [place] [address]- 4969 Dec, [facility] [address] [id number] [place] [address]- 2739 Dec, [facility] [address] [id number] [place] [address]- 1993 Dec, [facility] [address] [id number] [place] [address]- 6813 10 Dec, 2012 [facility] [place] [facility] [address] [id number] [place] [address] Nov, [facility] [place] [facility] [address] [id number] [place] [address] Nov, [facility] [address] [id number] [place] [address] Oct, [facility] [address] [id number] [place] [address] Aug, [facility] [place] [facility] [address] [id number] [place] [address] Aug, [facility] [place] [facility] [address] [id number] [place] [address] Dec, [facility] [place] [facility] [address] [id number] [place] [address] Dec, [facility] [place] [facility] [address] [id number] [place] [address] Dec, [facility] [place] [facility] [address] [id number] [place] [address] 2018 Nov, [facility] [place] [facility] [address] [id number] [place] [address] Nov, [facility] [place] [facility] [address] [id number] [place] [address] Oct, [facility] [place] [facility] [address] [id number] [place] [address] Oct, [facility] [place] [facility] [address] [id number] [place] [address] Oct, [facility] [place] [facility] [address] [id number] [place] [address] Sep, [facility] [place] [facility] [address] [id number] [place] [address] Sep, [facility] [place] [facility] [address] [id number] [place] [address] Sep, [facility] [place] [facility] [address] [id number] [place] [address] Sep, [facility] [place] [facility] [address] [id number] [place] [address] Sep, [facility] [place] [facility] [address] [id number] [place] [address] 11 Sep, 2011 [facility] [address] [id number] [place] [address] 10 Sep, 2011 [facility] [address] [id number] [place] [address] 09 Sep, 2011 [facility] [address] [id number] [place] [address] 22 Jul, 2011 [facility] [address] [id number] [place] [address] 15 Jul, 2011 [facility] [address] [id number] [place] [address] 15 Jul, 2011 [facility] [address] [id number] [place] [address] 14 Nov, 2010 [facility] [address] [id number] [place] [address] 17 Aug, 2010 [facility] [address] [id number] [place] [address] 17 Aug, 2010 [facility] [address] [id number] [place] [address]- [address] 16 Aug, 2010 [facility] [address] [id number] [place] [address] 15 Aug, 2010 [facility] [address] [id number] [place] [address] 09 Aug, 2010 [facility] [address] [id number] [place] [address] Jul, [facility] [address] [id number] [place] [address] Jun, [facility] [place] [facility] [address] [id number] [place] [address] Jun, [facility] [address] [id number] [place] [address] Sep, [facility] [id number] [address] Aug, [facility] [id number] [address] Aug, [facility] [id number] [address] Aug, [facility] [id number] [address] Jun, [facility] [id number] [address] Jun, [facility] [id number] [address] May, [facility] [id number] [address] 254 Apr, [facility] [id number] [address] Mar, [facility] [id number] [address] January, [facility] [address] [id number] [address] Oct, IMMUNIZATIONS No Known Immunizations SOCIAL HISTORY Never Assessed REASON FOR VISIT Diabetes-Pricilla ESPINOZA PLAN OF CARE Activity Details Follow Up 4 Weeks Reason:dm2 VITAL SIGNS Height 70 in 2018-02-28 Weight 328.6 lbs 2018-02-28 Temperature 98.0 degrees Fahrenheit 2018-02-28 Heart Rate 76 bpm 2018-02-28 Respiratory Rate 20 2018-02-28 BMI 47.14 kg/m2 2018-02-28 Blood pressure systolic 118 mmHg 2018-02-28 Blood pressure diastolic 82 mmHg 2018-02-28 MEDICATIONS Medication Instructions Dosage Frequency Start Date End Date Duration Status Levemir FlexTouch 100 UNIT/ML DX- E11.9 2 times a day 80 units 12h 29 Feb, 2017 Active Pen [place] 32G X 4 MM use with insulin pens for injection Feb, 30 days Active Prozac 40 MG Orally Once a day 1 capsule 24h 09 Oct, 2015 Active NovoLog Flexpen 100 UNIT/ML Subcutaneous 3 times a day 60 u 8h Feb, Active Actos 45 MG Orally Once a day 1 tablet 24h Nov, 30 day(s) Active W15-Idazle Active Fish Oil 1000 MG Orally twice a day 1 capsule 12h Active MetFORMIN HCl ER (MOD) 500 mg Orally 2 times a day 2 tablets 12h Active IBU 800 MG TAKE ONE TABLET BY MOUTH THREE TIMES DAILY 33 Active One Touch/One Touch II Starter Active Cinnamon 500 mg Orally Once a day 2 capsules 24h Active Glucometer test blood sugar 12h January, lifetime Active Amitriptyline HCl 50 mg Orally Once a day 1 tablet 24h Nov, Active Propranolol HCl 40 mg Orally Twice a day 1 tablet 12h January, Active Test strips test blood sugar 12h January, 25 days Active Neurontin 800 MG Orally Three times a day 1.5 tablets 8h Oct, 30 day(s) Active Lisinopril 20 mg Orally Once a day 1 tablet 24h Active HydrOXYzine HCl 10 MG Orally three times a day as needed 1 tablet Nov 30 days Active Meloxicam 7.5 MG Orally 2 times a day 1 tablet 12h Feb, Jun, 30 day(s) Active Omeprazole 40 mg Orally Once a day 1 capsule 24h Apr, Active Lancets - test blood sugar 12h January, 25 days Active RESULTS Name Result Date Reference Range A1C (IN HOUSE) 2018-02-28 A1C IN HOUSE 9.8 4.3 - 5.6 % Previous A1c 9.3 Lot [id number] Exp date 11/2019 PROCEDURES Procedure Date Ordered Result Body Site GLYCATED HEMOGLOBIN TEST February 28, 2018 INSTRUCTIONS MEDICATIONS ADMINISTERED No Known Medications [...] celluitis of the left upper thigh-VC 04/2017 Hospitalization History [facility]-inpatient psych 4 day stay 2013 Hospitalization History [facility]- Shaking, unsure of blood sugar level 11/20/2017
[2018-07-05 11:05] VITALS: BP 128/91
[2018-07-05] MEDS ORDERED: LACTATED RINGERS 1,000 ML IV STA (11:08)
[2018-07-05] MEDS ORDERED: MIDAZOLAM 2 MG/2 ML (VERSED) VIAL ONE (11:11)
[2018-07-05] MEDS ORDERED: PROPOFOL INJECTION 50 ML IV ONE ×3 (11:12→12:11)
[2018-07-05] MEDS ORDERED: HURRICAINE EXT TUBE (BENZOCAINE) XX PRN (11:15)
--- NOTE | 2018-07-05 11:41 | Progress Note-Pre Operative ---
Pre-Operative Progress Note H&P Reviewed The H&P was reviewed, patient examined and no changes noted. Time Seen by Provider: 11:38 Date H&P Reviewed: Jul 05, 2018 Time H&P Reviewed: 11:39 Pre-Operative Diagnosis: Chronic Gastritis, Hematochezia FARAZ DE LEON DO Jul 05, 2018 11:41
--- NOTE | 2018-07-05 12:26 | Progress Note-Post Operative ---
Post-Operative Progess Note Surgeon (s)/Budget Technician (s) Surgeon FARAZ DE LEON DO Budget Technician: none Pre-Operative Diagnosis Chronic Gastritis, Hematochezia Post-Operative Diagnosis Gastritis Cabrera's esophagus Transverse colon polyp Diverticula Int Hem Procedure & Operative Findings Date of Procedure 07/05/18 Procedure Performed/Findings EGD with bx Colon with snare polypectomy Anesthesia Type IV Sedation by TRANSMISSION SYSTEMS OPERATOR Estimated Blood Loss Estimated blood loss (mL): scant Specimens/Packing Specimens Removed Antral bx, Body of stomach bx, GE jxn bx Transverse colon polyp FARAZ DE LEON DO Jul 05, 2018 12:26
--- OUTSIDE RECORDS SUMMARY | 2018-07-05 12:26 | XMS REPORT | Continuity of Care Document ---
Author Author On License Of [facility] Address Unknown Phone Unavailable Allergies Active Description Code Type Severity Reaction Onset Reported/Identified Relationship to Patient Clinical Status Yes mirtazapine [id number] Drug Allergy Severe N/A 01/10/2007 Yes venlafaxine [id number] Drug Allergy Moderate N/A 01/10/2007 Yes Wellbutrin Drug Allergy N/A N/A 10/22/2008 Yes Wellbutrin Drug Allergy 10/22/2008 Yes BuSpar Drug Allergy N/A N/A 12/25/2014 Yes Clindamycin Drug Allergy N/A N/A 12/25/2014 Yes sertraline [id number] Drug Allergy Severe RASH, SWELLING 01/20/2016 Yes bupropion [id number] Drug Allergy Unknown "CAUSED ME TO B 01/20/2016 Yes buspirone [id number] Drug Allergy Unknown THROAT SWELLED 01/20/2016 Yes cephalexin [id number] Drug Allergy Unknown HIVES 01/20/2016 Yes codeine [id number] Drug Allergy Unknown N/A 01/20/2016 Medications There [...] DIABETES MELLITUS POORLY CONTROLLED 06/28/2008 ANDREWS CASHERO DIRECTOR OF MARKETING ANALYTICS, SHRADDHA N 250.02 DIABETES MELLITUS POORLY CONTROLLED 06/28/2008 ANDREWS CASHERO DIRECTOR OF MARKETING ANALYTICS, SHRADDHA N 250.02 DIABETES MELLITUS POORLY CONTROLLED 06/28/2008 NERISSA MARTINEZ APRN 250.02 DIABETES MELLITUS POORLY CONTROLLED 06/28/2008 ANDREWS CASHERO DIRECTOR OF MARKETING ANALYTICS, SHRADDHA N 250.02 DIABETES MELLITUS POORLY CONTROLLED 06/28/2008 ANDREWS CASHERO DIRECTOR OF MARKETING ANALYTICS, SHRADDHA N 250.02 DIABETES MELLITUS POORLY CONTROLLED 06/28/2008 ANDREWS CASHERO DIRECTOR OF MARKETING ANALYTICS, SHRADDHA N 250.02 DIABETES MELLITUS POORLY CONTROLLED 06/28/2008 ANDREWS CASHERO DIRECTOR OF MARKETING ANALYTICS, SHRADDHA N 250.02 DIABETES MELLITUS POORLY CONTROLLED 06/28/2008 ANDREWS CASHERO DIRECTOR OF MARKETING ANALYTICS, SHRADDHA N 250.02 DIABETES MELLITUS POORLY CONTROLLED [...] 785.6 LYMPH NODES ENLARGEMENT 10/22/2008 ANDREWS CASHERO DIRECTOR OF MARKETING ANALYTICS, SHRADDHA N 785.6 LYMPH NODES ENLARGEMENT 10/22/2008 ESSIE JOHNSON MD 785.6 LYMPH NODES ENLARGEMENT 10/22/2008 ASIYA VENTURA DDS 785.6 LYMPH NODES ENLARGEMENT 10/22/2008 LORENZO PAYNESVIKRAM 785.6 LYMPH NODES ENLARGEMENT 10/22/2008 ANDREWS CASHERO DIRECTOR OF MARKETING ANALYTICS, SHRADDHA N 785.6 LYMPH NODES ENLARGEMENT 10/22/2008 ANDREWS CASHERO DIRECTOR OF MARKETING ANALYTICS, SHRADDHA N 785.6 LYMPH NODES ENLARGEMENT 10/22/2008 JUAN DIRECTOR OF MARKETING ANALYTICS, NERISSA T 785.6 LYMPH NODES ENLARGEMENT 10/22/2008 ANDREWS CASHERO DIRECTOR OF MARKETING ANALYTICS, SHRADDHA N 785.6 LYMPH NODES ENLARGEMENT 10/22/2008 ANDREWS CASHERO DIRECTOR OF MARKETING ANALYTICS, SHRADDHA N 785.6 LYMPH NODES ENLARGEMENT 10/22/2008 ANDREWS CASHERO DIRECTOR OF MARKETING ANALYTICS, SHRADDHA N 785.6 LYMPH NODES ENLARGEMENT 10/22/2008 ANDREWS CASHERO DIRECTOR OF MARKETING ANALYTICS, SHRADDHA N 785.6 LYMPH NODES ENLARGEMENT 10/22/2008 ANDREWS CASHERO DIRECTOR OF MARKETING ANALYTICS, SHRADDHA N 785.6 LYMPH NODES ENLARGEMENT 10/22/2008 [...] DYSURIA 11/07/2008 788.1 DYSURIA 11/07/2008 ANDREWS CASHERO DIRECTOR OF MARKETING ANALYTICS, SHRADDHA N 788.1 DYSURIA 11/07/2008 ELIZABETH RODRIGUEZ, ESSIE 788.1 DYSURIA 11/07/2008 ASIYA VENTURA DDS 788.1 DYSURIA 11/07/2008 LORENZO PAYNESVIKRAM 788.1 DYSURIA 11/07/2008 ANDREWS CASHERO DIRECTOR OF MARKETING ANALYTICS, SHRADDHA N 788.1 DYSURIA 11/07/2008 ANDREWS CASHERO DIRECTOR OF MARKETING ANALYTICS, SHRADDHA N 788.1 DYSURIA 11/07/2008 NERISSA MARTINEZ APRN 788.1 DYSURIA 11/07/2008 ANDREWS CASHERO DIRECTOR OF MARKETING ANALYTICS, SHRADDHA N 788.1 DYSURIA 11/07/2008 ANDREWS CASHERO DIRECTOR OF MARKETING ANALYTICS, SHRADDHA N 788.1 DYSURIA 11/07/2008 ANDREWS CASHERO DIRECTOR OF MARKETING ANALYTICS, SHRADDHA N 788.1 DYSURIA 11/07/2008 ANDREWS CASHERO DIRECTOR OF MARKETING ANALYTICS, SHRADDHA N 788.1 DYSURIA 11/07/2008 ANDREWS CASHERO DIRECTOR OF MARKETING ANALYTICS, SHRADDHA N 788.1 DYSURIA 11/07/2008 NERISSA MARTINEZ [...] SHRADDHA CISNEROS APRN N 536.8 DYSPEPSIA 01/31/2009 MASHA [...] VIKRAM D 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 02/04/2009 ANDREWS CASHERO DIRECTOR OF MARKETING ANALYTICS, SHRADDHA N 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 02/04/2009 ANDREWS CASHERO DIRECTOR OF MARKETING ANALYTICS, SHRADDHA N 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 02/04/2009 JUAN DIRECTOR OF MARKETING ANALYTICS, NERISSA T 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 02/04/2009 ANDREWS CASHERO DIRECTOR OF MARKETING ANALYTICS, SHRADDHA N 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 02/04/2009 ANDREWS CASHERO DIRECTOR OF MARKETING ANALYTICS, SHRADDHA N 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 02/04/2009 ANDREWS CASHERO DIRECTOR OF MARKETING ANALYTICS, SHRADDHA N 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 02/04/2009 ANDREWS CASHERO DIRECTOR OF MARKETING ANALYTICS, SHRADDHA N 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 02/04/2009 ANDREWS CASHERO DIRECTOR OF MARKETING ANALYTICS, SHRADDHA N 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 02/04/2009 JUAN DIRECTOR OF MARKETING ANALYTICS, NERISSA T 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 02/04/2009 LENA GARNER, RAFAELA S 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 02/04/2009 JAVIER PHD, REAGAN Weldon 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 02/04/2009 JAVIER PHD, REAGAN Weldon 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 02/04/2009 WENDY DIRECTOR OF MARKETING ANALYTICS, LAITH R 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 02/04/2009 JAVIER PHD, REAGAN Weldon 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 02/04/2009 JAVIER PHD, REAGAN Weldon 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 02/04/2009 MARIANO DIRECTOR OF MARKETING ANALYTICS, ZAKI J 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 04/04/2009 530.81 ESOPHAGEAL [...] PAIN RIGHT UPPER QUADRANT 04/04/2009 ANDREWS CASHERO DIRECTOR OF MARKETING ANALYTICS, SHRADDHA N 530.81 ESOPHAGEAL REFLUX 04/04/2009 ANDREWS CASHERO DIRECTOR OF MARKETING ANALYTICS, SHRADDHA N 682.6 CELLULITIS AND ABSCESS OF LEG EXCEPT FOOT 04/04/2009 ANDREWS CASHERO DIRECTOR OF MARKETING ANALYTICS, SHRADDHA N 789.01 ABDOMINAL PAIN RIGHT UPPER QUADRANT 04/04/2009 ANDREWS CASHERO DIRECTOR OF MARKETING ANALYTICS, SHRADDHA N 530.81 ESOPHAGEAL REFLUX 04/04/2009 ANDREWS CASHERO DIRECTOR OF MARKETING ANALYTICS, SHRADDHA N 682.6 CELLULITIS AND ABSCESS OF LEG EXCEPT FOOT 04/04/2009 ANDREWS CASHERO DIRECTOR OF MARKETING ANALYTICS, SHRADDHA N 789.01 ABDOMINAL PAIN RIGHT UPPER QUADRANT 04/04/2009 NERISSA MARTINEZ APRN T 530.81 ESOPHAGEAL REFLUX 04/04/2009 NERISSA MARTINEZ APRN T 682.6 CELLULITIS AND ABSCESS OF LEG EXCEPT FOOT 04/04/2009 NERISSA MARTINEZ APRN T 789.01 ABDOMINAL PAIN RIGHT UPPER QUADRANT 04/04/2009 ANDREWS CASHERO DIRECTOR OF MARKETING ANALYTICS, SHRADDHA N 530.81 ESOPHAGEAL REFLUX 04/04/2009 ANDREWS CASHERO DIRECTOR OF MARKETING ANALYTICS, SHRADDHA N 682.6 CELLULITIS AND ABSCESS OF LEG EXCEPT FOOT 04/04/2009 ANDREWS CASHERO DIRECTOR OF MARKETING ANALYTICS, SHRADDHA N 789.01 ABDOMINAL PAIN RIGHT UPPER QUADRANT 04/04/2009 ANDREWS CASHERO DIRECTOR OF MARKETING ANALYTICS, SHRADDHA N 530.81 ESOPHAGEAL REFLUX 04/04/2009 ANDREWS CASHERO DIRECTOR OF MARKETING ANALYTICS, SHRADDHA N 682.6 CELLULITIS AND ABSCESS OF LEG EXCEPT FOOT 04/04/2009 ANDREWS CASHERO DIRECTOR OF MARKETING ANALYTICS, SHRADDHA N 789.01 ABDOMINAL PAIN RIGHT UPPER QUADRANT 04/04/2009 ANDREWS CASHERO DIRECTOR OF MARKETING ANALYTICS, SHRADDHA N 530.81 ESOPHAGEAL REFLUX 04/04/2009 ANDREWS CASHERO DIRECTOR OF MARKETING ANALYTICS, SHRADDHA N 682.6 CELLULITIS AND ABSCESS OF LEG EXCEPT FOOT 04/04/2009 ANDREWS CASHERO DIRECTOR OF MARKETING ANALYTICS, SHRADDHA N 789.01 ABDOMINAL PAIN RIGHT UPPER QUADRANT 04/04/2009 ANDREWS CASHERO DIRECTOR OF MARKETING ANALYTICS, SHRADDHA N 530.81 ESOPHAGEAL REFLUX 04/04/2009 JULIANA HENDERSON DIRECTOR OF MARKETING ANALYTICS, SHRADDHA N 682.6 CELLULITIS AND ABSCESS OF LEG EXCEPT FOOT 04/04/2009 JULIANA HENDERSON DIRECTOR OF MARKETING ANALYTICS, SHRADDHA N 789.01 ABDOMINAL PAIN RIGHT UPPER QUADRANT 04/04/2009 JULIANA HENDERSON DIRECTOR OF MARKETING ANALYTICS, SHRADDHA N 530.81 ESOPHAGEAL REFLUX 04/04/2009 JULIANA HENDERSON DIRECTOR OF MARKETING ANALYTICS, SHRADDHA N 682.6 CELLULITIS AND ABSCESS OF LEG EXCEPT FOOT 04/04/2009 JULIANA HENDERSON DIRECTOR OF MARKETING ANALYTICS, SHRADDHA N 789.01 ABDOMINAL PAIN RIGHT UPPER [...] GROIN AND PERIANAL AREA 05/06/2009 ANDREWS CASHERO DIRECTOR OF MARKETING ANALYTICS, SHRADDHA N 110.3 DERMATOPHYTOSIS OF GROIN AND PERIANAL AREA 05/06/2009 ANDREWS CASHERO DIRECTOR OF MARKETING ANALYTICS, SHRADDHA N 110.3 DERMATOPHYTOSIS OF GROIN AND PERIANAL AREA 05/06/2009 ANDREWS CASHERO DIRECTOR OF MARKETING ANALYTICS, SHRADDHA N 110.3 DERMATOPHYTOSIS OF GROIN AND PERIANAL AREA 05/06/2009 ANDREWS CASHERO DIRECTOR OF MARKETING ANALYTICS, SHRADDHA N 110.3 DERMATOPHYTOSIS OF GROIN AND PERIANAL AREA 05/06/2009 ANDREWS CASHERO DIRECTOR OF MARKETING ANALYTICS, SHRADDHA N 110.3 DERMATOPHYTOSIS OF GROIN AND [...] 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 06/17/2009 ANDREWS CASHERO DIRECTOR OF MARKETING ANALYTICS, SHRADDHA N 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 06/17/2009 ELIZABETH RODRIGUEZ, ESSIE 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 06/17/2009 WHITE DDS, ASIYA Frederick 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 06/17/2009 WHITE DDS, VIKRAM Weldon 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 06/17/2009 ANDREWS CASHERO DIRECTOR OF MARKETING ANALYTICS, SHRADDHA N 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 06/17/2009 ANDREWS CASHERO DIRECTOR OF MARKETING ANALYTICS, SHRADDHA N 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 06/17/2009 NERISSA MARTINEZ APRN 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 06/17/2009 ANDREWS CASHERO DIRECTOR OF MARKETING ANALYTICS, SHRADDHA N 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 06/17/2009 ANDREWS CASHERO DIRECTOR OF MARKETING ANALYTICS, SHRADDHA N 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 06/17/2009 ANDREWS CASHERO DIRECTOR OF MARKETING ANALYTICS, SHRADDHA N 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 06/17/2009 ANDREWS CASHERO DIRECTOR OF MARKETING ANALYTICS, SHRADDHA N 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 06/17/2009 ANDREWS CASHERO DIRECTOR OF MARKETING ANALYTICS, SHRADDHA N 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 06/17/2009 NERISSA MARTINEZ APRN 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 06/17/2009 RAFAELA PAREDES APRN 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 06/17/2009 JAVIER MARVIN, REAGAN Weldon 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 06/17/2009 JAVIER MARVIN, REAGAN Weldon 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 06/17/2009 LAITH NGUYEN APRN 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 06/17/2009 JAVIER MARVIN, REGAAN Weldon 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 06/17/2009 JAVIER [...] ABDOMINAL PAIN UNSPECIFIED SITE 07/03/2009 ANDREWS CASHERO DIRECTOR OF MARKETING ANALYTICS, SHRADDHA N 789.00 ABDOMINAL PAIN UNSPECIFIED SITE 07/03/2009 ESSIE JOHNSON MD 789.00 ABDOMINAL PAIN UNSPECIFIED SITE 07/03/2009 ASIYA VENTURA DDS 789.00 ABDOMINAL PAIN UNSPECIFIED SITE 07/03/2009 VIKRAM VENTURA DDS 789.00 ABDOMINAL PAIN UNSPECIFIED SITE 07/03/2009 ANDREWS CASHERO DIRECTOR OF MARKETING ANALYTICS, SHRADDHA N 789.00 ABDOMINAL PAIN UNSPECIFIED SITE 07/03/2009 ANDREWS CASHERO DIRECTOR OF MARKETING ANALYTICS, SHRADDHA N 789.00 ABDOMINAL PAIN UNSPECIFIED SITE 07/03/2009 NERISSA MARTINEZ APRN 789.00 ABDOMINAL PAIN UNSPECIFIED SITE 07/03/2009 ANDREWS CASHERO DIRECTOR OF MARKETING ANALYTICS, SHRADDHA N 789.00 ABDOMINAL PAIN UNSPECIFIED SITE 07/03/2009 ANDREWS CASHERO DIRECTOR OF MARKETING ANALYTICS, SHRADDHA N 789.00 ABDOMINAL PAIN UNSPECIFIED SITE 07/03/2009 ANDREWS CASHERO DIRECTOR OF MARKETING ANALYTICS, SHRADDHA N 789.00 ABDOMINAL PAIN UNSPECIFIED SITE 07/03/2009 ANDREWS CASHERO DIRECTOR OF MARKETING ANALYTICS, SHRADDHA N 789.00 ABDOMINAL PAIN UNSPECIFIED SITE 07/03/2009 ANDREWS CASHERO DIRECTOR OF MARKETING ANALYTICS, SHRADDHA N 789.00 ABDOMINAL PAIN UNSPECIFIED SITE [...] 564.1 IRRITABLE BOWEL SYNDROME 08/27/2009 ANDREWS CASHGURWINDER DIRECTOR OF MARKETING ANALYTICS, SHRADDHA N 564.1 IRRITABLE BOWEL SYNDROME 08/27/2009 ESSIE JOHNSON MD 564.1 IRRITABLE BOWEL SYNDROME 08/27/2009 ASIYA VENTURA DDS 564.1 IRRITABLE BOWEL SYNDROME 08/27/2009 LORENZO PAYNESVIKRAM 564.1 IRRITABLE BOWEL SYNDROME 08/27/2009 ANDREWS CASHERO DIRECTOR OF MARKETING ANALYTICS, SHRADDHA N 564.1 IRRITABLE BOWEL SYNDROME 08/27/2009 ANDREWS CASHERO DIRECTOR OF MARKETING ANALYTICS, SHRADDHA N 564.1 IRRITABLE BOWEL SYNDROME 08/27/2009 NERISSA MARTINEZ APRN 564.1 IRRITABLE BOWEL SYNDROME 08/27/2009 ANDREWS CASHERO DIRECTOR OF MARKETING ANALYTICS, SHRADDHA N 564.1 IRRITABLE BOWEL SYNDROME 08/27/2009 ANDREWS CASHERO DIRECTOR OF MARKETING ANALYTICS, SHRADDHA N 564.1 IRRITABLE BOWEL SYNDROME 08/27/2009 ANDREWS CASHERO DIRECTOR OF MARKETING ANALYTICS, SHRADDHA N 564.1 IRRITABLE BOWEL SYNDROME 08/27/2009 ANDREWS CASHERO DIRECTOR OF MARKETING ANALYTICS, SHRADDHA N 564.1 IRRITABLE BOWEL SYNDROME 08/27/2009 ANDREWS CASHERO DIRECTOR OF MARKETING ANALYTICS, SHRADDHA N 564.1 IRRITABLE BOWEL SYNDROME 08/27/2009 NERISSA MARTINEZ APRN 564.1 IRRITABLE BOWEL SYNDROME 08/27/2009 RAFAELA PAREDES APRN 564.1 IRRITABLE BOWEL SYNDROME 08/27/2009 JAVIER PHD, REAGAN Weldon 564.1 IRRITABLE BOWEL SYNDROME 08/27/2009 JAVIER PHD, REAGAN Weldon 564.1 IRRITABLE BOWEL SYNDROME 08/27/2009 LAITH NGUYEN APRN 564.1 IRRITABLE BOWEL SYNDROME 08/27/2009 JAVIER [...] INFECTIONS OF UNSPECIFIED SITE 09/16/2009 ANDREWS CASHERO DIRECTOR OF MARKETING ANALYTICS, SHRADDHA N 465.9 ACUTE UPPER RESPIRATORY INFECTIONS OF UNSPECIFIED SITE 09/16/2009 ANDREWS CASHERO DIRECTOR OF MARKETING ANALYTICS, SHRADDHA N 465.9 ACUTE UPPER RESPIRATORY INFECTIONS OF UNSPECIFIED SITE 09/16/2009 ANDREWS CASHERO DIRECTOR OF MARKETING ANALYTICS, SHRADDHA N 465.9 ACUTE UPPER RESPIRATORY INFECTIONS OF UNSPECIFIED SITE 09/16/2009 ANDREWS CASHERO DIRECTOR OF MARKETING ANALYTICS, SHRADDHA N 465.9 ACUTE UPPER RESPIRATORY INFECTIONS OF UNSPECIFIED SITE 09/16/2009 NERISSA MARTINEZ APRN 465.9 ACUTE UPPER RESPIRATORY INFECTIONS OF UNSPECIFIED SITE 09/16/2009 LENA BLASNRAFAELA 465.9 ACUTE UPPER RESPIRATORY INFECTIONS OF UNSPECIFIED SITE 09/16/2009 JAVIER MARVIN, REAGAN Weldon 465.9 ACUTE UPPER RESPIRATORY INFECTIONS OF UNSPECIFIED SITE 09/16/2009 REAGAN HERRERA PHD 465.9 ACUTE UPPER RESPIRATORY INFECTIONS OF UNSPECIFIED SITE 09/16/2009 LAITH NGUYEN APRN 465.9 ACUTE UPPER RESPIRATORY INFECTIONS OF UNSPECIFIED SITE 09/16/2009 REAGAN HERRREA PHD 465.9 ACUTE UPPER RESPIRATORY INFECTIONS OF [...] VIKRAM Weldon 607.1 BALANOPOSTHITIS 09/30/2009 ANDREWS CASHERO DIRECTOR OF MARKETING ANALYTICS, SHRADDHA N 607.1 BALANOPOSTHITIS 09/30/2009 ANDREWS CASHERO DIRECTOR OF MARKETING ANALYTICS, SHRADDHA N 607.1 BALANOPOSTHITIS 09/30/2009 NERISSA MARTINEZ APRN 607.1 BALANOPOSTHITIS 09/30/2009 ANDREWS CASHERO DIRECTOR OF MARKETING ANALYTICS, SHRADDHA N 607.1 BALANOPOSTHITIS 09/30/2009 ANDREWS CASHERO DIRECTOR OF MARKETING ANALYTICS, SHRADDHA N 607.1 BALANOPOSTHITIS 09/30/2009 ANDREWS CASHERO DIRECTOR OF MARKETING ANALYTICS, SHRADDHA N 607.1 BALANOPOSTHITIS 09/30/2009 ANDREWS CASHERO DIRECTOR OF MARKETING ANALYTICS, SHRADDHA N 607.1 BALANOPOSTHITIS 09/30/2009 ANDREWS CASHERO DIRECTOR OF MARKETING ANALYTICS, SHRADDHA N 607.1 BALANOPOSTHITIS 09/30/2009 NERISSA MARTINEZ [...] VENTURA DDS 462 PHARYNGITIS ACUTE 02/24/2010 VIKRAM VENTURA DDS 780.57 SLEEP APNEA 02/24/2010 SHRADDHA CISNEROS [...] N 462 PHARYNGITIS ACUTE 02/24/2010 ANDREWS CASHERO DIRECTOR OF MARKETING ANALYTICS, SHRADDHA N 780.57 SLEEP APNEA 02/24/2010 ANDREWS CASHERO DIRECTOR OF MARKETING ANALYTICS, SHRADDHA N 462 PHARYNGITIS ACUTE 02/24/2010 ANDREWS CASHERO DIRECTOR OF MARKETING ANALYTICS, SHRADDHA N 780.57 SLEEP APNEA 02/24/2010 ANDREWS CASHERO DIRECTOR OF MARKETING ANALYTICS, SHRADDHA N 462 PHARYNGITIS ACUTE 02/24/2010 ANDREWS CASHERO DIRECTOR OF MARKETING ANALYTICS, SHRADDHA N 780.57 SLEEP APNEA 02/24/2010 ANDREWS CASHERO DIRECTOR OF MARKETING ANALYTICS, SHRADDHA N 462 PHARYNGITIS ACUTE 02/24/2010 ANDREWS CASHERO DIRECTOR OF MARKETING ANALYTICS, SHRADDHA N 780.57 SLEEP APNEA 02/24/2010 JUAN DIRECTOR OF MARKETING ANALYTICS, NERISSA T 462 PHARYNGITIS ACUTE 02/24/2010 JUAN DIRECTOR OF MARKETING ANALYTICS, NERISSA T 780.57 SLEEP APNEA 02/24/2010 LENA GARNER, RAFAELA S 462 PHARYNGITIS ACUTE 02/24/2010 LENA GARNER, RAFAELA S 780.57 SLEEP APNEA 02/24/2010 JAVIER MARVIN, REAGAN Weldon 462 PHARYNGITIS ACUTE 02/24/2010 JAVIER MARVIN, REAGAN Weldon 780.57 SLEEP APNEA 02/24/2010 REAGAN HERRERA PHD 462 PHARYNGITIS ACUTE 02/24/2010 REAGAN HERRERA PHD 780.57 SLEEP APNEA 02/24/2010 EWNDY GARNER LAITH R 462 PHARYNGITIS ACUTE 02/24/2010 WENDY GARNER LAITH R 780.57 SLEEP APNEA 02/24/2010 REAGAN [...] 08/28/2010 466.0 ACUTE BRONCHITIS 08/28/2010 ANDREWS CASHERO DIRECTOR OF MARKETING ANALYTICS, SHRADDHA N 380.10 OTITIS EXTERNA 08/28/2010 ANDREWS CASHERO DIRECTOR OF MARKETING ANALYTICS, SHRADDHA N 466.0 ACUTE BRONCHITIS 08/28/2010 ESSIE JOHNSON MD 380.10 OTITIS EXTERNA 08/28/2010 ESSIE JOHNSON MD 466.0 ACUTE BRONCHITIS 08/28/2010 WHITE DDS, ASIYA J 380.10 OTITIS EXTERNA 08/28/2010 WHITE DDS, ASIYA J 466.0 ACUTE BRONCHITIS 08/28/2010 WHITE DDS, VIKRAM D 380.10 OTITIS EXTERNA 08/28/2010 WHITE DDS, VIKRAM D 466.0 ACUTE BRONCHITIS 08/28/2010 ANDREWS CASHERO DIRECTOR OF MARKETING ANALYTICS, SHRADDHA N 380.10 OTITIS EXTERNA 08/28/2010 ANDREWS CASHERO DIRECTOR OF MARKETING ANALYTICS, SHRADDHA N 466.0 ACUTE BRONCHITIS 08/28/2010 ANDREWS CASHERO DIRECTOR OF MARKETING ANALYTICS, SHRADDHA N 380.10 OTITIS EXTERNA 08/28/2010 ANDREWS CASHERO DIRECTOR OF MARKETING ANALYTICS, SHRADDHA N 466.0 ACUTE BRONCHITIS 08/28/2010 NERISSA MARTINEZ APRN 380.10 OTITIS EXTERNA 08/28/2010 NERISSA MARTINEZ APRN 466.0 ACUTE BRONCHITIS 08/28/2010 ANDREWS CASHERO DIRECTOR OF MARKETING ANALYTICS, SHRADDHA N 380.10 OTITIS EXTERNA 08/28/2010 ANDREWS CASHERO DIRECTOR OF MARKETING ANALYTICS, SHRADDHA N 466.0 ACUTE BRONCHITIS 08/28/2010 ANDREWS CASHERO DIRECTOR OF MARKETING ANALYTICS, SHRADDHA N 380.10 OTITIS EXTERNA 08/28/2010 ANDREWS CASHERO DIRECTOR OF MARKETING ANALYTICS, SHRADDHA N 466.0 ACUTE BRONCHITIS 08/28/2010 ANDREWS CASHERO DIRECTOR OF MARKETING ANALYTICS, SHRADDHA N 380.10 OTITIS EXTERNA 08/28/2010 ANDREWS CASHERO DIRECTOR OF MARKETING ANALYTICS, SHRADDHA N 466.0 ACUTE BRONCHITIS 08/28/2010 ANDREWS CASHERO DIRECTOR OF MARKETING ANALYTICS, SHRADDHA N 380.10 OTITIS EXTERNA 08/28/2010 ANDREWS CASHERO DIRECTOR OF MARKETING ANALYTICS, SHRADDHA N 466.0 ACUTE BRONCHITIS 08/28/2010 ANDREWS CASHERO DIRECTOR OF MARKETING ANALYTICS, SHRADDHA N 380.10 OTITIS EXTERNA 08/28/2010 ANDREWS CASHERO DIRECTOR OF MARKETING ANALYTICS, SHRADDHA N 466.0 ACUTE BRONCHITIS 08/28/2010 JUAN DIRECTOR OF MARKETING ANALYTICS, NERISSA T 380.10 OTITIS EXTERNA 08/28/2010 JUAN DIRECTOR OF MARKETING ANALYTICS, NERISSA T 466.0 ACUTE BRONCHITIS 08/28/2010 LENA DIRECTOR OF MARKETING ANALYTICS, RAFAELA S 380.10 OTITIS EXTERNA 08/28/2010 LENA DIRECTOR OF MARKETING ANALYTICS, RAFAELA S 466.0 ACUTE BRONCHITIS 08/28/2010 JAVIER MARVIN, REAGAN Weldon 380.10 OTITIS EXTERNA 08/28/2010 JAVIER MARVIN, REAGAN Weldon 466.0 ACUTE BRONCHITIS 08/28/2010 JAVIER MARVIN, REAGAN Weldon 380.10 OTITIS EXTERNA 08/28/2010 JAVIER MARVIN, REAGAN Weldon 466.0 ACUTE BRONCHITIS 08/28/2010 WENDY DIRECTOR OF MARKETING ANALYTICS, LAITH R 380.10 OTITIS EXTERNA 08/28/2010 WENDY [...] 250.00 DIABETES II CONTROLLED 09/05/2010 ANDREWS CASHERO DIRECTOR OF MARKETING ANALYTICS, SHRADDHA N 250.00 DIABETES II CONTROLLED 09/05/2010 ESSIE JOHNSON MD 250.00 DIABETES II CONTROLLED 09/05/2010 ASIYA VETNURA DDS 250.00 DIABETES II CONTROLLED 09/05/2010 LORENZO PAYNESVIKRAM 250.00 DIABETES II CONTROLLED 09/05/2010 ANDREWS CASHERO DIRECTOR OF MARKETING ANALYTICS, SHRADDHA N 250.00 DIABETES II CONTROLLED 09/05/2010 ANDREWS CASHERO DIRECTOR OF MARKETING ANALYTICS, SHRADDHA N 250.00 DIABETES II CONTROLLED 09/05/2010 NERISSA MARTINEZ APRN 250.00 DIABETES II CONTROLLED 09/05/2010 ANDREWS CASHERO DIRECTOR OF MARKETING ANALYTICS, SHRADDHA N 250.00 DIABETES II CONTROLLED 09/05/2010 ANDREWS CASHERO DIRECTOR OF MARKETING ANALYTICS, SHRADDHA N 250.00 DIABETES II CONTROLLED 09/05/2010 ANDREWS CASHERO DIRECTOR OF MARKETING ANALYTICS, SHRADDHA N 250.00 DIABETES II CONTROLLED 09/05/2010 ANDREWS CASHERO DIRECTOR OF MARKETING ANALYTICS, SHRADDHA N 250.00 DIABETES II CONTROLLED 09/05/2010 ANDREWS CASHERO DIRECTOR OF MARKETING ANALYTICS, SHRADDHA N 250.00 DIABETES II CONTROLLED 09/05/2010 [...] OF OTHER UROGENITAL SITES 12/01/2010 ANDREWS CASHERO DIRECTOR OF MARKETING ANALYTICS, SHRADDHA N 112.2 CANDIDIASIS OF OTHER UROGENITAL SITES 12/01/2010 ELIZABETH RODRIGUEZ, ESSIE 112.2 CANDIDIASIS OF OTHER UROGENITAL SITES 12/01/2010 ASIYA VENTURA DDS 112.2 CANDIDIASIS OF OTHER UROGENITAL SITES 12/01/2010 VIKRAM VENTURA DDS 112.2 CANDIDIASIS OF OTHER UROGENITAL SITES 12/01/2010 ANDREWS CASHERO DIRECTOR OF MARKETING ANALYTICS, SHRADDHA N 112.2 CANDIDIASIS OF OTHER UROGENITAL SITES 12/01/2010 ANDREWS CASHERO DIRECTOR OF MARKETING ANALYTICS, SHRADDHA N 112.2 CANDIDIASIS OF OTHER UROGENITAL SITES 12/01/2010 NERISSA MARTINEZ APRN 112.2 CANDIDIASIS OF OTHER UROGENITAL SITES 12/01/2010 ANDREWS CASHERO DIRECTOR OF MARKETING ANALYTICS, SHRADDHA N 112.2 CANDIDIASIS OF OTHER UROGENITAL SITES 12/01/2010 ANDREWS CASHERO DIRECTOR OF MARKETING ANALYTICS, SHRADDHA N 112.2 CANDIDIASIS OF OTHER UROGENITAL SITES 12/01/2010 ANDREWS CASHERO DIRECTOR OF MARKETING ANALYTICS, SHRADDHA N 112.2 CANDIDIASIS OF OTHER UROGENITAL SITES 12/01/2010 ANDREWS CASHERO DIRECTOR OF MARKETING ANALYTICS, SHRADDHA N 112.2 CANDIDIASIS OF OTHER UROGENITAL SITES 12/01/2010 ANDREWS CASHERO DIRECTOR OF MARKETING ANALYTICS, SHRADDHA N 112.2 CANDIDIASIS OF OTHER UROGENITAL SITES 12/01/2010 NEIRSSA MARTINEZ APRN 112.2 CANDIDIASIS OF OTHER UROGENITAL [...] APRN N 787.91 DIARRHEA 06/17/2011 ANDREWS CASHERO DIRECTOR OF MARKETING ANALYTICS, SHRADDHA N 465.9 UPPER RESPIRATORY INFECTION 06/17/2011 ANDREWS CASHERO DIRECTOR OF MARKETING ANALYTICS, SHRADDHA N 787.91 DIARRHEA 06/17/2011 JUAN GARNER NERISSA T 465.9 UPPER RESPIRATORY INFECTION 06/17/2011 JUAN DIRECTOR OF MARKETING ANALYTICS, NERISSA T 787.91 DIARRHEA 06/17/2011 ANDREWS CASHERO DIRECTOR OF MARKETING ANALYTICS, SHRADDHA N 465.9 UPPER RESPIRATORY INFECTION 06/17/2011 ANDREWS CASHERO DIRECTOR OF MARKETING ANALYTICS, SHRADDHA N 787.91 DIARRHEA 06/17/2011 ANDREWS CASHERO DIRECTOR OF MARKETING ANALYTICS, SHRADDHA N 465.9 UPPER RESPIRATORY INFECTION 06/17/2011 ANDREWS CASHERO DIRECTOR OF MARKETING ANALYTICS, SHRADDHA N 787.91 DIARRHEA 06/17/2011 ANDREWS CASHERO DIRECTOR OF MARKETING ANALYTICS, SHRADDHA N 465.9 UPPER RESPIRATORY INFECTION 06/17/2011 ANDREWS CASHERO DIRECTOR OF MARKETING ANALYTICS, SHRADDHA N 787.91 DIARRHEA 06/17/2011 ANDREWS CASHERO DIRECTOR OF MARKETING ANALYTICS, SHRADDHA N 465.9 UPPER RESPIRATORY INFECTION 06/17/2011 ANDREWS CASHERO DIRECTOR OF MARKETING ANALYTICS, SHRADDHA N 787.91 DIARRHEA 06/17/2011 ANDREWS CASHERO DIRECTOR OF MARKETING ANALYTICS, SHRADDHA N 465.9 UPPER RESPIRATORY INFECTION 06/17/2011 ANDREWS CASHERO DIRECTOR OF MARKETING ANALYTICS, SHRADDHA N 787.91 DIARRHEA 06/17/2011 NERISSA MARTINEZ APRN T 465.9 UPPER RESPIRATORY INFECTION 06/17/2011 JUAN DIRECTOR OF MARKETING ANALYTICS, NERISSA T 787.91 DIARRHEA 06/17/2011 LENA DIRECTOR OF MARKETING ANALYTICS, RAFAELA S 465.9 UPPER RESPIRATORY INFECTION 06/17/2011 LENA DIRECTOR OF MARKETING ANALYTICS, RAFAELA S 787.91 DIARRHEA 06/17/2011 JAVIER MARVIN, REAGAN [place] 465.9 UPPER RESPIRATORY INFECTION 06/17/2011 JAVIER MARVIN, REAGAN [place] 787.91 DIARRHEA 06/17/2011 JAVIER MARVIN, REAGAN [place] 465.9 UPPER RESPIRATORY INFECTION 06/17/2011 JAVIER MARVIN, REAGAN [place] 787.91 DIARRHEA 06/17/2011 WENDY DIRECTOR OF MARKETING ANALYTICS, LAITH R 465.9 UPPER RESPIRATORY INFECTION 06/17/2011 WENDY DIRECTOR OF MARKETING ANALYTICS, LAITH R 787.91 DIARRHEA 06/17/2011 JAVIER MARVIN, [...] 401.1 HYPERTENSION, BENIGN ESSENTIAL 06/24/2011 ANDREWS CASHERO DIRECTOR OF MARKETING ANALYTICS, SHRADDHA N 401.1 HYPERTENSION, BENIGN ESSENTIAL 06/24/2011 ESSIE JOHNSON MD 401.1 HYPERTENSION, BENIGN ESSENTIAL 06/24/2011 WHITE DDS, ASIYA [place] 401.1 HYPERTENSION, BENIGN ESSENTIAL 06/24/2011 WHITE DDS, VIKRAM [place] 401.1 HYPERTENSION, BENIGN ESSENTIAL 06/24/2011 ANDREWS CASHERO DIRECTOR OF MARKETING ANALYTICS, SHRADDHA N 401.1 HYPERTENSION, BENIGN ESSENTIAL 06/24/2011 ANDREWS CASHERO DIRECTOR OF MARKETING ANALYTICS, SHRADDHA N 401.1 HYPERTENSION, BENIGN ESSENTIAL 06/24/2011 NERISSA MARTINEZ APRN 401.1 HYPERTENSION, BENIGN ESSENTIAL 06/24/2011 ANDREWS CASHERO DIRECTOR OF MARKETING ANALYTICS, SHRADDHA N 401.1 HYPERTENSION, BENIGN ESSENTIAL 06/24/2011 ANDREWS CASHERO DIRECTOR OF MARKETING ANALYTICS, SHRADDHA N 401.1 HYPERTENSION, BENIGN ESSENTIAL 06/24/2011 ANDREWS CASHERO DIRECTOR OF MARKETING ANALYTICS, SHRADDHA N 401.1 HYPERTENSION, BENIGN ESSENTIAL 06/24/2011 ANDREWS CASHERO DIRECTOR OF MARKETING ANALYTICS, SHRADDHA N 401.1 HYPERTENSION, BENIGN ESSENTIAL 06/24/2011 ANDREWS CASHERO DIRECTOR OF MARKETING ANALYTICS, SHRADDHA N 401.1 HYPERTENSION, BENIGN ESSENTIAL 06/24/2011 [...] DIABETES II CONTROLLED (UNCOMPLICATED) 10/27/2011 ANDREWS CASHERO DIRECTOR OF MARKETING ANALYTICS, SHRADDHA N 250.00 DIABETES II CONTROLLED (UNCOMPLICATED) 10/27/2011 ELIZABETH RODRIGUEZ, ESSIE 250.00 DIABETES II CONTROLLED (UNCOMPLICATED) 10/27/2011 ASIYA VENTURA DDS 250.00 DIABETES II CONTROLLED (UNCOMPLICATED) 10/27/2011 VIKRAM VENTURA DDS 250.00 DIABETES II CONTROLLED (UNCOMPLICATED) 10/27/2011 ANDREWS CASHERO DIRECTOR OF MARKETING ANALYTICS, SHRADDHA N 250.00 DIABETES II CONTROLLED (UNCOMPLICATED) 10/27/2011 ANDREWS CASHERO DIRECTOR OF MARKETING ANALYTICS, SHRADDHA N 250.00 DIABETES II CONTROLLED (UNCOMPLICATED) 10/27/2011 NERISSA MARTINEZ APRN 250.00 DIABETES II CONTROLLED (UNCOMPLICATED) 10/27/2011 ANDREWS CASHERO DIRECTOR OF MARKETING ANALYTICS, SHRADDHA N 250.00 DIABETES II CONTROLLED (UNCOMPLICATED) 10/27/2011 ANDREWS CASHERO DIRECTOR OF MARKETING ANALYTICS, SHRADDHA N 250.00 DIABETES II CONTROLLED (UNCOMPLICATED) 10/27/2011 ANDREWS CASHERO DIRECTOR OF MARKETING ANALYTICS, SHRADDHA N 250.00 DIABETES II CONTROLLED (UNCOMPLICATED) 10/27/2011 ANDREWS CASHERO DIRECTOR OF MARKETING ANALYTICS, SHRADDHA N 250.00 DIABETES II CONTROLLED (UNCOMPLICATED) 10/27/2011 ANDREWS CASHERO DIRECTOR OF MARKETING ANALYTICS, SHRADDHA N 250.00 DIABETES II CONTROLLED (UNCOMPLICATED) [...] 465.9 UPPER RESPIRATORY INFECTION 11/08/2012 ANDREWS CASHERO DIRECTOR OF MARKETING ANALYTICS, SHRADDHA N 465.9 UPPER RESPIRATORY INFECTION 11/08/2012 ELIZABETH RODRIGUEZ, ESSIE 465.9 UPPER RESPIRATORY INFECTION 11/08/2012 WHITE DDS, ASIYA Frederick 465.9 UPPER RESPIRATORY INFECTION 11/08/2012 WHITE DDS, VIKRAM Weldon 465.9 UPPER RESPIRATORY INFECTION 11/08/2012 ANDREWS CASHERO DIRECTOR OF MARKETING ANALYTICS, SHRADDHA N 465.9 UPPER RESPIRATORY INFECTION 11/08/2012 ANDREWS CASHERO DIRECTOR OF MARKETING ANALYTICS, SHRADDHA N 465.9 UPPER RESPIRATORY INFECTION 11/08/2012 NERISSA MARTINEZ APRN 465.9 UPPER RESPIRATORY INFECTION 11/08/2012 ANDREWS CASHERO DIRECTOR OF MARKETING ANALYTICS, SHRADDHA N 465.9 UPPER RESPIRATORY INFECTION 11/08/2012 ANDREWS CASHERO DIRECTOR OF MARKETING ANALYTICS, SHRADDHA N 465.9 UPPER RESPIRATORY INFECTION 11/08/2012 ANDREWS CASHERO DIRECTOR OF MARKETING ANALYTICS, SHRADDHA N 465.9 UPPER RESPIRATORY INFECTION 11/08/2012 ANDREWS CASHERO DIRECTOR OF MARKETING ANALYTICS, SHRADDHA N 465.9 UPPER RESPIRATORY INFECTION 11/08/2012 ANDREWS CASHERO DIRECTOR OF MARKETING ANALYTICS, SHRADDHA N 465.9 UPPER RESPIRATORY INFECTION 11/08/2012 [...] 300.02 GENERALIZED ANXIETY DISORDER 11/22/2012 ANDREWS CASHERO DIRECTOR OF MARKETING ANALYTICS, SHRADDHA N 300.02 GENERALIZED ANXIETY DISORDER 11/22/2012 ESSIE JOHNSON MD 300.02 GENERALIZED ANXIETY DISORDER 11/22/2012 WHITE DDS, ASIYA Frederick 300.02 GENERALIZED ANXIETY DISORDER 11/22/2012 WHITE DDS, VIKRAM Weldon 300.02 GENERALIZED ANXIETY DISORDER 11/22/2012 ANDREWS CASHERO DIRECTOR OF MARKETING ANALYTICS, SHRADDHA N 300.02 GENERALIZED ANXIETY DISORDER 11/22/2012 ANDREWS CASHERO DIRECTOR OF MARKETING ANALYTICS, SHRADDHA N 300.02 GENERALIZED ANXIETY DISORDER 11/22/2012 NERISSA MARTINEZ APRN 300.02 GENERALIZED ANXIETY DISORDER 11/22/2012 ANDREWS CASHERO DIRECTOR OF MARKETING ANALYTICS, SHRADDHA N 300.02 GENERALIZED ANXIETY DISORDER 11/22/2012 ANDREWS CASHERO DIRECTOR OF MARKETING ANALYTICS, SHRADDHA N 300.02 GENERALIZED ANXIETY DISORDER 11/22/2012 ANDREWS CASHERO DIRECTOR OF MARKETING ANALYTICS, SHRADDHA N 300.02 GENERALIZED ANXIETY DISORDER 11/22/2012 ANDREWS CASHERO DIRECTOR OF MARKETING ANALYTICS, SHRADDHA N 300.02 GENERALIZED ANXIETY DISORDER 11/22/2012 ANDREWS CASHERO DIRECTOR OF MARKETING ANALYTICS, SHRADDHA N 300.02 GENERALIZED ANXIETY DISORDER 11/22/2012 [...] N 530.11 REFLUX ESOPHAGITIS 12/06/2012 ANDREWS CASHERO DIRECTOR OF MARKETING ANALYTICS, SHRADDHA N 787.91 DIARRHEA 12/06/2012 ANDREWS CASHERO DIRECTOR OF MARKETING ANALYTICS, SHRADDHA N V67.9 UNSPECIFIED FOLLOW-UP EXAMINATION 12/06/2012 ANDREWS CASHERO DIRECTOR OF MARKETING ANALYTICS, SHRADDHA N 530.11 REFLUX ESOPHAGITIS 12/06/2012 ANDREWS CASHERO DIRECTOR OF MARKETING ANALYTICS, SHRADDHA N 787.91 DIARRHEA 12/06/2012 ANDREWS CASHERO DIRECTOR OF MARKETING ANALYTICS, SHRADDHA N V67.9 UNSPECIFIED FOLLOW-UP EXAMINATION 12/06/2012 NERISSA MARTINEZ APRN T 530.11 REFLUX ESOPHAGITIS 12/06/2012 NERISSA MARTINEZ APRN T 787.91 DIARRHEA 12/06/2012 NERISSA MARTINEZ APRN T V67.9 UNSPECIFIED FOLLOW-UP EXAMINATION 12/06/2012 ANDREWS CASHERO DIRECTOR OF MARKETING ANALYTICS, SHRADDHA N 530.11 REFLUX ESOPHAGITIS 12/06/2012 ANDREWS CASHERO DIRECTOR OF MARKETING ANALYTICS, SHRADDHA N 787.91 DIARRHEA 12/06/2012 ANDREWS CASHERO DIRECTOR OF MARKETING ANALYTICS, SHRADDHA N V67.9 UNSPECIFIED FOLLOW-UP EXAMINATION 12/06/2012 ANDREWS CASHERO DIRECTOR OF MARKETING ANALYTICS, SHRADDHA N 530.11 REFLUX ESOPHAGITIS 12/06/2012 ANDREWS CASHERO DIRECTOR OF MARKETING ANALYTICS, SHRADDHA N 787.91 DIARRHEA 12/06/2012 ANDREWS CASHERO DIRECTOR OF MARKETING ANALYTICS, SHRADDHA N V67.9 UNSPECIFIED FOLLOW-UP EXAMINATION 12/06/2012 ANDREWS CASHERO DIRECTOR OF MARKETING ANALYTICS, SHRADDHA N 530.11 REFLUX ESOPHAGITIS 12/06/2012 ANDREWS CASHERO DIRECTOR OF MARKETING ANALYTICS, SHRADDHA N 787.91 DIARRHEA 12/06/2012 ANDREWS CASHERO DIRECTOR OF MARKETING ANALYTICS, SHRADDHA N V67.9 UNSPECIFIED FOLLOW-UP EXAMINATION 12/06/2012 ANDREWS CASHERO DIRECTOR OF MARKETING ANALYTICS, SHRADDHA N 530.11 REFLUX ESOPHAGITIS 12/06/2012 ANDREWS CASHERO DIRECTOR OF MARKETING ANALYTICS, SHRADDHA N 787.91 DIARRHEA 12/06/2012 ANDREWS CASHERO DIRECTOR OF MARKETING ANALYTICS, SHRADDHA N V67.9 UNSPECIFIED FOLLOW-UP EXAMINATION 12/06/2012 ANDREWS CASHERO DIRECTOR OF MARKETING ANALYTICS, SHRADDHA N 530.11 REFLUX ESOPHAGITIS 12/06/2012 ANDREWS CASHERO DIRECTOR OF MARKETING ANALYTICS, SHRADDHA N 787.91 DIARRHEA 12/06/2012 ANDREWS CASHERO DIRECTOR OF MARKETING ANALYTICS, SHRADDHA N V67.9 UNSPECIFIED FOLLOW-UP EXAMINATION 12/06/2012 [...] 12/28/2012 752.65 HIDDEN PENIS 12/28/2012 ANDREWS CASHERO DIRECTOR OF MARKETING ANALYTICS, SHRADDHA N 752.65 HIDDEN PENIS 12/28/2012 ELIZABETH RODRIGUEZ, ESSIE 752.65 HIDDEN PENIS 12/28/2012 WHITE DDS, ASIYA Frederick 752.65 HIDDEN PENIS 12/28/2012 WHITE DDS, VIKRAM Weldon 752.65 HIDDEN PENIS 12/28/2012 ANDREWS CASHERO DIRECTOR OF MARKETING ANALYTICS, SHRADDHA N 752.65 HIDDEN PENIS 12/28/2012 ANDREWS CASHERO DIRECTOR OF MARKETING ANALYTICS, SHRADDHA N 752.65 HIDDEN PENIS 12/28/2012 NERISSA MARTINEZ APRN 752.65 HIDDEN PENIS 12/28/2012 ANDREWS CASHERO DIRECTOR OF MARKETING ANALYTICS, SHRADDHA N 752.65 HIDDEN PENIS 12/28/2012 ANDREWS CASHERO DIRECTOR OF MARKETING ANALYTICS, SHRADDHA N 752.65 HIDDEN PENIS 12/28/2012 ANDREWS CASHERO DIRECTOR OF MARKETING ANALYTICS, SHRADDHA N 752.65 HIDDEN PENIS 12/28/2012 ANDREWS CASHERO DIRECTOR OF MARKETING ANALYTICS, SHRADDHA N 752.65 HIDDEN PENIS 12/28/2012 ANDREWS CASHERO DIRECTOR OF MARKETING ANALYTICS, SHRADDHA N 752.65 HIDDEN PENIS 12/28/2012 NERISSA [...] 01/05/2013 278.01 MORBID OBESITY 01/05/2013 ANDREWS CASHGURWINDER DIRECTOR OF MARKETING ANALYTICS, SHRADDHA N 112.3 CANDIDIASIS OF SKIN AND NAILS 01/05/2013 ANDREWS CASHGURWINDER DIRECTOR OF MARKETING ANALYTICS, SHRADDHA N 278.01 MORBID OBESITY 01/05/2013 ESSIE JOHNSON MD 112.3 CANDIDIASIS OF SKIN AND NAILS 01/05/2013 ESSIE JOHNSON MD 278.01 MORBID OBESITY 01/05/2013 LORENZO DDSASIYA 112.3 CANDIDIASIS OF SKIN AND NAILS 01/05/2013 LORENZO PAYNESASIYA J 278.01 MORBID OBESITY 01/05/2013 WHITE DDSVIKRAM D 112.3 CANDIDIASIS OF SKIN AND NAILS 01/05/2013 WHITE DDSVIKRAM D 278.01 MORBID OBESITY 01/05/2013 ANDREWS CASHERO DIRECTOR OF MARKETING ANALYTICS, SHRADDHA N 112.3 CANDIDIASIS OF SKIN AND NAILS 01/05/2013 ANDREWS CASHERO DIRECTOR OF MARKETING ANALYTICS, SHRADDHA N 278.01 MORBID OBESITY 01/05/2013 ANDREWS CASHERO DIRECTOR OF MARKETING ANALYTICS, SHRADDHA N 112.3 CANDIDIASIS OF SKIN AND NAILS 01/05/2013 ANDREWS CASHERO DIRECTOR OF MARKETING ANALYTICS, SHRADDHA N 278.01 MORBID OBESITY 01/05/2013 NERISSA MARTINEZ APRN 112.3 CANDIDIASIS OF SKIN AND NAILS 01/05/2013 NERISSA MARTINEZ APRN 278.01 MORBID OBESITY 01/05/2013 ANDREWS CASHERO DIRECTOR OF MARKETING ANALYTICS, SHRADDHA N 112.3 CANDIDIASIS OF SKIN AND NAILS 01/05/2013 ANDREWS CASHERO DIRECTOR OF MARKETING ANALYTICS, SHRADDHA N 278.01 MORBID OBESITY 01/05/2013 ANDREWS CASHERO DIRECTOR OF MARKETING ANALYTICS, SHRADDHA N 112.3 CANDIDIASIS OF SKIN AND NAILS 01/05/2013 ANDREWS CASHERO DIRECTOR OF MARKETING ANALYTICS, SHRADDHA N 278.01 MORBID OBESITY 01/05/2013 ANDREWS CASHERO DIRECTOR OF MARKETING ANALYTICS, SHRADDHA N 112.3 CANDIDIASIS OF SKIN AND NAILS 01/05/2013 ANDREWS CASHERO DIRECTOR OF MARKETING ANALYTICS, SHRADDHA N 278.01 MORBID OBESITY 01/05/2013 ANDREWS CASHERO DIRECTOR OF MARKETING ANALYTICS, SHRADDHA N 112.3 CANDIDIASIS OF SKIN AND NAILS 01/05/2013 JULIANA HENDERSON DIRECTOR OF MARKETING ANALYTICS, SHRADDHA N 278.01 MORBID OBESITY 01/05/2013 JULIANA HENDERSON DIRECTOR OF MARKETING ANALYTICS, SHRADDHA N 112.3 CANDIDIASIS OF SKIN AND NAILS 01/05/2013 JULIANA HENDERSON DIRECTOR OF MARKETING ANALYTICS, SHRADDHA N 278.01 MORBID OBESITY 01/05/2013 NERISSA MARTINEZ APRN T 112.3 CANDIDIASIS OF SKIN AND NAILS 01/05/2013 NERISSA MARTINEZ APRN T 278.01 MORBID OBESITY 01/05/2013 RAFAELA PAREDES APRN S 112.3 CANDIDIASIS OF SKIN AND NAILS 01/05/2013 RAFAELA PAREDES APRN S 278.01 MORBID OBESITY 01/05/2013 ERAGAN HERRERA PHD 112.3 CANDIDIASIS OF SKIN AND [...] SKIN AND INTEGUMENTARY TISSUES 01/26/2013 ANDREWS CASHERO DIRECTOR OF MARKETING ANALYTICS, SHRADDHA N 607.84 IMPOTENCE OF ORGANIC ORIGIN 01/26/2013 ANDREWS CASHERO DIRECTOR OF MARKETING ANALYTICS, SHRADDHA N 782.9 OTHER SYMPTOMS INVOLVING SKIN AND INTEGUMENTARY TISSUES 01/26/2013 ANDREWS CASHERO DIRECTOR OF MARKETING ANALYTICS, SHRADDHA N 607.84 IMPOTENCE OF ORGANIC ORIGIN 01/26/2013 ANDREWS CASHERO DIRECTOR OF MARKETING ANALYTICS, SHRADDHA N 782.9 OTHER SYMPTOMS INVOLVING SKIN AND INTEGUMENTARY TISSUES 01/26/2013 ANDREWS CASHERO DIRECTOR OF MARKETING ANALYTICS, SHRADDHA N 607.84 IMPOTENCE OF ORGANIC ORIGIN 01/26/2013 ANDREWS CASHERO DIRECTOR OF MARKETING ANALYTICS, SHRADDHA N 782.9 OTHER SYMPTOMS INVOLVING SKIN AND INTEGUMENTARY TISSUES 01/26/2013 ANDREWS CASHERO DIRECTOR OF MARKETING ANALYTICS, SHRADDHA N 607.84 IMPOTENCE OF ORGANIC ORIGIN 01/26/2013 ANDREWS CASHERO DIRECTOR OF MARKETING ANALYTICS, SHRADDHA N 782.9 OTHER SYMPTOMS INVOLVING SKIN [...] AND INTEGUMENTARY TISSUES 01/26/2013 JAVIER PHD, REAGAN Weldon 607.84 IMPOTENCE OF ORGANIC ORIGIN 01/26/2013 JAVIER MARVIN, REAGAN Weldon 782.9 OTHER SYMPTOMS INVOLVING SKIN AND INTEGUMENTARY TISSUES 01/26/2013 ZAKI QUINTANA APRN 607.84 IMPOTENCE OF ORGANIC ORIGIN 01/26/2013 ZAKI QUINTANA APRN 782.9 OTHER SYMPTOMS INVOLVING SKIN AND INTEGUMENTARY TISSUES 03/30/2013 356.9 UNSPECIFIED IDIOPATHIC PERIPHERAL NEUROPATHY 03/30/2013 356.9 UNSPECIFIED IDIOPATHIC PERIPHERAL NEUROPATHY 03/30/2013 ANDREWS CASHERO DIRECTOR OF MARKETING ANALYTICS, SHRADDHA N 356.9 UNSPECIFIED IDIOPATHIC PERIPHERAL NEUROPATHY 03/30/2013 ELIZABETH RODRIGUEZ, ESSIE 356.9 UNSPECIFIED IDIOPATHIC PERIPHERAL NEUROPATHY 03/30/2013 ASIYA VENTURA DDS 356.9 UNSPECIFIED IDIOPATHIC PERIPHERAL NEUROPATHY 03/30/2013 VIKRAM VENTURA DDS 356.9 UNSPECIFIED IDIOPATHIC PERIPHERAL NEUROPATHY 03/30/2013 ANDREWS CASHERO DIRECTOR OF MARKETING ANALYTICS, SHRADDHA N 356.9 UNSPECIFIED IDIOPATHIC PERIPHERAL NEUROPATHY 03/30/2013 ANDREWS CASHERO DIRECTOR OF MARKETING ANALYTICS, SHRADDHA N 356.9 UNSPECIFIED IDIOPATHIC PERIPHERAL NEUROPATHY 03/30/2013 NERISSA MARTINEZ APRN 356.9 UNSPECIFIED IDIOPATHIC PERIPHERAL NEUROPATHY 03/30/2013 ANDREWS CASHERO DIRECTOR OF MARKETING ANALYTICS, SHRADDHA N 356.9 UNSPECIFIED IDIOPATHIC PERIPHERAL NEUROPATHY 03/30/2013 ANDREWS CASHERO DIRECTOR OF MARKETING ANALYTICS, SHRADDHA N 356.9 UNSPECIFIED IDIOPATHIC PERIPHERAL NEUROPATHY 03/30/2013 ANDREWS CASHERO DIRECTOR OF MARKETING ANALYTICS, SHRADDHA N 356.9 UNSPECIFIED IDIOPATHIC PERIPHERAL NEUROPATHY 03/30/2013 ANDREWS CASHERO DIRECTOR OF MARKETING ANALYTICS, SHRADDHA N 356.9 UNSPECIFIED IDIOPATHIC PERIPHERAL NEUROPATHY 03/30/2013 ANDREWS CASHERO DIRECTOR OF MARKETING ANALYTICS, SHRADDHA N 356.9 UNSPECIFIED IDIOPATHIC PERIPHERAL NEUROPATHY [...] INVOLVING ANKLE AND FOOT 05/04/2013 ANDREWS CASHERO DIRECTOR OF MARKETING ANALYTICS, SHRADDHA N 719.47 PAIN IN JOINT INVOLVING [...] N 388.70 OTALGIA UNSPECIFIED 04/10/2014 ANDREWS CASHERO DIRECTOR OF MARKETING ANALYTICS, SHRADDHA N 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 04/10/2014 ANDREWS CASHERO DIRECTOR OF MARKETING ANALYTICS, SHRADDHA N 784.1 THROAT PAIN 04/10/2014 ANDREWS CASHERO DIRECTOR OF MARKETING ANALYTICS, SHRADDHA N 388.70 OTALGIA UNSPECIFIED 04/10/2014 ANDREWS CASHERO DIRECTOR OF MARKETING ANALYTICS, SHRADDHA N 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 04/10/2014 ANDREWS CASHERO DIRECTOR OF MARKETING ANALYTICS, SHRADDHA N 784.1 THROAT PAIN 04/10/2014 ANDREWS CASHERO DIRECTOR OF MARKETING ANALYTICS, SHRADDHA N 388.70 OTALGIA UNSPECIFIED 04/10/2014 ANDREWS CASHERO DIRECTOR OF MARKETING ANALYTICS, SHRADDHA N 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 04/10/2014 ANDREWS CASHERO DIRECTOR OF MARKETING ANALYTICS, SHRADDHA N 784.1 THROAT PAIN 04/10/2014 ANDREWS CASHERO DIRECTOR OF MARKETING ANALYTICS, SHRADDHA N 388.70 OTALGIA UNSPECIFIED 04/10/2014 ANDREWS CASHERO DIRECTOR OF MARKETING ANALYTICS, SHRADDHA N 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 04/10/2014 ANDREWS CASHERO DIRECTOR OF MARKETING ANALYTICS, SHRADDHA N 784.1 THROAT PAIN 04/10/2014 NERISSA MARTINEZ APRN T 388.70 OTALGIA UNSPECIFIED 04/10/2014 NERISSA MARTINEZ APRN T 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 04/10/2014 NERISSA MARTINEZ APRN T 784.1 THROAT PAIN 04/10/2014 RAFAELA PAREDES APRN S 388.70 OTALGIA UNSPECIFIED 04/10/2014 RAFAELA PAREDES APRN S 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 04/10/2014 DEVAN PAREDES APRNA S 784.1 THROAT PAIN 04/10/2014 [...] 575.8 DIS OF GALLBLADDER NEC 08/21/2014 ANA ECHOSL Ot 789.09 ABDOMINAL PAIN, OTHER SPECIFIED SITE 08/30/2014 IESHA RODRIGUEZ, SHANIQUE S Ot 530.11 REFLUX ESOPHAGITIS 09/04/2014 RAFAELA PAREDES TRAVEL INSURANCE AGENT Ot 571.8 09/04/2014 RAFAELA PAREDES TRAVEL INSURANCE AGENT Ot 786.50 09/04/2014 RAFAELA PAREDES TRAVEL INSURANCE AGENT Ot 789.01 09/04/2014 RAFAELA PAREDES TRAVEL INSURANCE AGENT Ot 789.1 09/18/2014 ALDEN CARBAJAL DIRECTOR OF MARKETING ANALYTICS Ot 250.00 DIAB GIULIA WO COMPL, TYPE II OR UNSPEC TY 09/18/2014 ALDEN CARBAJAL DIRECTOR OF MARKETING ANALYTICS Ot 789.09 ABDOMINAL PAIN, OTHER SPECIFIED SITE 09/18/2014 ALDEN CARBAJAL DIRECTOR OF MARKETING ANALYTICS Ot V58.69 OTH MED,LT,CURRENT USE 09/29/2014 JOHANA [...] V58.69 OTH MED,LT,CURRENT USE 10/25/2014 SHRADDHA STEPHENS TRAVEL INSURANCE AGENT Ot 784.0 10/25/2014 RAFAELA PAREDES TRAVEL INSURANCE AGENT Ot 571.8 10/25/2014 RAFAELA PAREDES TRAVEL INSURANCE AGENT Ot 786.50 10/25/2014 RAFAELA PAREDES TRAVEL INSURANCE AGENT Ot 789.01 10/25/2014 RAFAELA PAREDES TRAVEL INSURANCE AGENT Ot 789.1 10/25/2014 IESHA RODRIGUEZ, SHANIQUE Soriano Ot V72.84 10/25/2014 ALISA HERNANDEZ MD Ot 575.8 10/25/2014 ALISA HERNANDEZ MD Ot V72.83 10/25/2014 MARY RODRIGUEZ, ALISA Ot V74.8 12/01/2014 Ot 521.00 UNSPEC DENTAL CARIES 12/01/2014 Ot 525.9 DENTAL DISORDER NOS 12/09/2014 DEBRA VUAGHN MD Ot 525.9 DENTAL DISORDER NOS 12/09/2014 [...] UNSPECIFIED 09/17/2015 MAMIE DUBOIS MD Ot Z79.4 CUT OUT PRESS OPERATOR (CURRENT) USE OF INSULIN 09/23/2015 KRISSY HALL [...] 09/24/2015 HALL DO, KRISSY K Ot Z79.4 CUT OUT PRESS OPERATOR (CURRENT) USE OF INSULIN 09/24/2015 HALL DO, KRISSY K Ot Z91.14 PATIENT'S OTHER NONCOMPLIANCE WITH MEDIC 09/30/2015 LUPE BARCLAY MD Ot E11.9 TYPE 2 DIABETES MELLITUS WITHOUT COMPLIC 09/30/2015 LUPE BARCLAY MD, Ot E66.9 OBESITY, UNSPECIFIED 09/30/2015 LUPE BARCLAY MD, Ot F41.9 ANXIETY DISORDER, UNSPECIFIED 09/30/2015 LUPE BARCLAY MD Ot R21 RASH AND OTHER NONSPECIFIC SKIN ERUPTION 09/30/2015 LUPE BARCLAY MD, Ot Z79.4 CUT OUT PRESS OPERATOR (CURRENT) USE OF INSULIN 10/20/2015 GARRETT , TRISTEN K Ot B37.42 CANDIDAL BALANITIS 10/20/2015 GARRETT , TRISTEN K Ot E11.9 TYPE 2 DIABETES MELLITUS WITHOUT COMPLIC 10/20/2015 GARRETT , TRISTEN K Ot E66.9 OBESITY, UNSPECIFIED 10/20/2015 GARRETT , TRISTEN K Ot L30.8 OTHER SPECIFIED DERMATITIS 10/20/2015 GARRETT , TRISTEN K Ot Z79.4 CUT OUT PRESS OPERATOR (CURRENT) USE OF INSULIN 01/17/2016 ALDEN CARBAJAL DIRECTOR OF MARKETING ANALYTICS Ot E11.65 TYPE 2 DIABETES MELLITUS WITH HYPERGLYCE 01/17/2016 ALDEN CARBAJAL APRN Ot E66.9 OBESITY, UNSPECIFIED 01/17/2016 ALDEN CARBAJAL DIRECTOR OF MARKETING ANALYTICS Ot E86.9 VOLUME DEPLETION, UNSPECIFIED 01/17/2016 ALDEN CARBAJAL DIRECTOR OF MARKETING ANALYTICS Ot R42 DIZZINESS AND GIDDINESS 01/20/2016 SILVINO RODRIGUEZ, MAMIE Carrasco Ot J18.9 PNEUMONIA, UNSPECIFIED ORGANISM 01/20/2016 SILVINO RODRIGUEZ, MAMIE T Ot R04.2 HEMOPTYSIS 01/20/2016 ALDEN CARBAJAL DIRECTOR OF MARKETING ANALYTICS Ot E11.65 TYPE 2 DIABETES MELLITUS WITH HYPERGLYCE 01/20/2016 ALDEN CARBAJAL APRN Ot E66.9 OBESITY, UNSPECIFIED 01/20/2016 ALDEN CARBAJAL DIRECTOR OF MARKETING ANALYTICS Ot E86.9 VOLUME DEPLETION, UNSPECIFIED 01/20/2016 ALDEN CARBAJAL DIRECTOR OF MARKETING ANALYTICS Ot R42 DIZZINESS AND GIDDINESS 01/21/2016 CHASE [...] ADULT 01/21/2016 CHASE CEJA MD, Ot Z79.4 RESIDENTIAL (CURRENT) USE OF INSULIN 01/21/2016 MAMIE DUBOIS [...] MD Ot R07.89 OTHER CHEST PAIN 03/09/2016 MAMIE DUBOIS MD Ot R42 DIZZINESS AND GIDDINESS 03/09/2016 MAMIE DUBOIS MD Ot Z91.14 PATIENT'S OTHER NONCOMPLIANCE WITH MEDIC 04/22/2016 SHRADDHA STEPHENS TRAVEL INSURANCE AGENT Ot 784.0 HEADACHE 04/22/2016 RAFAELA PAREDES TRAVEL INSURANCE AGENT Ot 571.8 CHRONIC LIVER DIS NEC 04/22/2016 RAFAELA PAREDES TRAVEL INSURANCE AGENT Ot 786.50 CHEST PAIN NOS 04/22/2016 RAFAELA PAREDES TRAVEL INSURANCE AGENT Ot 789.01 ABDOMINAL PAIN, RIGHT UPPER QUADRANT 04/22/2016 RAFAELA PAREDES TRAVEL INSURANCE AGENT Ot 789.1 HEPATOMEGALY 04/22/2016 IESHA RODRIGUEZ, SHANIQUE Soriano Ot V72.84 EXAM PRE-OPERATIVE NOS 04/22/2016 ALISA HERNANDEZ MD Ot 575.8 DIS OF GALLBLADDER NEC 04/22/2016 ALISA HERNANDEZ MD Ot V72.83 EXAM PRE-OPERATIVE NEC 04/22/2016 ALISA HERNANDEZ MD Ot V74.8 SCREEN-BACTERIAL DIS NEC 04/22/2016 SANTOSH TAM MD Ot 272.4 HYPERLIPIDEMIA NEC/NOS 04/22/2016 SANTOSH TMA MD Ot 785.1 PALPITATIONS 04/22/2016 SANTOSH TAM MD Ot 786.05 SHORTNESS OF BREATH 04/22/2016 ASNTOSH TAM MD Ot 786.50 CHEST PAIN NOS [...] 786.50 CHEST PAIN NOS 04/23/2016 NERISSA MARTINEZ TRAVEL INSURANCE AGENT Ot K76.0 FATTY (CHANGE OF) LIVER, NOT ELSEWHERE C 04/23/2016 NERISSA MARTINEZ TRAVEL INSURANCE AGENT Ot R10.84 GENERALIZED ABDOMINAL PAIN 05/01/2016 NERISSA MARTINEZ TRAVEL INSURANCE AGENT Ot K76.0 FATTY (CHANGE OF) LIVER, NOT ELSEWHERE C 05/01/2016 NERISSA MARTINEZ TRAVEL INSURANCE AGENT Ot R10.84 GENERALIZED ABDOMINAL PAIN 05/15/2016 NERISSA MARTINEZ TRAVEL INSURANCE AGENT Ot K76.0 FATTY (CHANGE OF) LIVER, NOT ELSEWHERE C 05/15/2016 NERISSA MARTINEZ TRAVEL INSURANCE AGENT Ot R10.84 GENERALIZED ABDOMINAL PAIN 05/20/2016 NERISSA MARTINEZ TRAVEL INSURANCE AGENT Ot K76.0 FATTY (CHANGE OF) LIVER, NOT ELSEWHERE C 05/20/2016 NERISSA MARTINEZ TRAVEL INSURANCE AGENT Ot R10.84 GENERALIZED ABDOMINAL PAIN 07/15/2016 SHRADDHA STEPHENS TRAVEL INSURANCE AGENT Ot 784.0 HEADACHE 07/15/2016 RAFAELA PAREDES TRAVEL INSURANCE AGENT Ot 571.8 CHRONIC LIVER DIS NEC 07/15/2016 RAFAELA PAREDES TRAVEL INSURANCE AGENT Ot 786.50 CHEST PAIN NOS 07/15/2016 RAFAELA PAREDES TRAVEL INSURANCE AGENT Ot 789.01 ABDOMINAL PAIN, RIGHT UPPER QUADRANT 07/15/2016 LENA, RAFAELA TRAVEL INSURANCE AGENT Ot 789.1 HEPATOMEGALY 07/15/2016 IESHA RODRIGUEZ, SHANIQUE Soriano Ot V72.84 EXAM PRE-OPERATIVE NOS 07/15/2016 MARY RODRIGUEZ, ALISA Ot 575.8 DIS OF GALLBLADDER NEC 07/15/2016 [...] 786.50 CHEST PAIN NOS 07/15/2016 NERISSA MARTINEZ TRAVEL INSURANCE AGENT Ot K76.0 FATTY (CHANGE OF) LIVER, NOT ELSEWHERE C 07/15/2016 NERISSA MARTINEZ TRAVEL INSURANCE AGENT Ot R10.84 GENERALIZED ABDOMINAL PAIN 07/15/2016 ALDEN CARBAJAL APRN Ot E11.65 TYPE 2 DIABETES MELLITUS WITH HYPERGLYCE 07/15/2016 ALDEN CARBAJAL APRN Ot E66.01 MORBID (SEVERE) OBESITY DUE TO EXCESS CA 07/15/2016 ALDEN CARBAJAL APRN Ot M62.81 MUSCLE WEAKNESS (GENERALIZED) 07/15/2016 ALDEN CARBAJAL APRN Ot Z79.4 RESIDENTIAL (CURRENT) USE OF INSULIN 07/15/2016 ALDEN CARBAJAL APRN Ot Z79.899 OTHER CUT OUT PRESS OPERATOR (CURRENT) DRUG THERAPY 07/16/2016 ALDEN CARBAJAL DIRECTOR OF MARKETING ANALYTICS Ot E11.65 TYPE 2 DIABETES MELLITUS WITH HYPERGLYCE 07/16/2016 ALDEN CARBAJAL DIRECTOR OF MARKETING ANALYTICS Ot E66.01 MORBID (SEVERE) OBESITY DUE TO EXCESS CA 07/16/2016 ALDEN CARBAJAL DIRECTOR OF MARKETING ANALYTICS Ot M62.81 MUSCLE WEAKNESS (GENERALIZED) 07/16/2016 ALDEN CARBAJAL DIRECTOR OF MARKETING ANALYTICS Ot Z79.4 CUT OUT PRESS OPERATOR (CURRENT) USE OF INSULIN 07/16/2016 ALDEN CARBAJAL DIRECTOR OF MARKETING ANALYTICS Ot Z79.899 OTHER RESIDENTIAL (CURRENT) DRUG THERAPY 07/16/2016 ALDEN CARBAJAL DIRECTOR OF MARKETING ANALYTICS Ot E11.65 TYPE 2 DIABETES MELLITUS WITH HYPERGLYCE 07/16/2016 ALDEN CARBAJAL APRN Ot E66.01 MORBID (SEVERE) OBESITY DUE TO EXCESS CA 07/16/2016 ALDEN CARBAJAL DIRECTOR OF MARKETING ANALYTICS Ot M62.81 MUSCLE WEAKNESS (GENERALIZED) 07/16/2016 ALDEN CARBAJAL DIRECTOR OF MARKETING ANALYTICS Ot Z79.4 RESIDENTIAL (CURRENT) USE OF INSULIN 07/16/2016 ALDEN CARBAJAL DIRECTOR OF MARKETING ANALYTICS Ot Z79.899 OTHER RESIDENTIAL (CURRENT) DRUG THERAPY 07/20/2016 SHRADDHA STEPHENS TRAVEL INSURANCE AGENT Ot 784.0 HEADACHE 07/20/2016 RAFAELA PAREDES TRAVEL INSURANCE AGENT Ot 571.8 CHRONIC LIVER DIS NEC 07/20/2016 RAFAELA PAREDES TRAVEL INSURANCE AGENT Ot 786.50 CHEST PAIN NOS 07/20/2016 RAFAELA PAREDES TRAVEL INSURANCE AGENT Ot 789.01 ABDOMINAL PAIN, RIGHT UPPER QUADRANT 07/20/2016 RAFAELA PAREDES TRAVEL INSURANCE AGENT Ot 789.1 HEPATOMEGALY 07/20/2016 IESHA RODRIGUEZ, SHANIQUE [...] R10.84 GENERALIZED ABDOMINAL PAIN 07/21/2016 ALDEN CARBAJAL DIRECTOR OF MARKETING ANALYTICS Ot E11.65 TYPE 2 DIABETES MELLITUS WITH HYPERGLYCE 07/21/2016 ALDEN CARBAJAL APRN Ot E66.9 OBESITY, UNSPECIFIED 07/21/2016 ALDEN CARBAJAL DIRECTOR OF MARKETING ANALYTICS Ot E86.9 VOLUME DEPLETION, UNSPECIFIED 07/21/2016 ALDEN CARBAJAL DIRECTOR OF MARKETING ANALYTICS Ot R42 DIZZINESS AND GIDDINESS 07/21/2016 MAMIE [...] 08/15/2016 DIANA RUIZ MD J Ot Z79.84 CUT OUT PRESS OPERATOR (CURRENT) USE OF ORAL HYPOGLYC 08/15/2016 DIANA RUIZ MD J Ot Z79.899 OTHER CUT OUT PRESS OPERATOR (CURRENT) DRUG THERAPY 08/21/2016 DIANA RUIZ MD [...] 08/21/2016 DIANA RUIZ MD J Ot Z79.84 RESIDENTIAL (CURRENT) USE OF ORAL HYPOGLYC 08/21/2016 DIANA RUIZ MD J Ot Z79.899 OTHER RESIDENTIAL (CURRENT) DRUG THERAPY 08/22/2016 DAVINA MADDOX MD Ot E11.9 TYPE 2 DIABETES MELLITUS WITHOUT COMPLIC 08/22/2016 DAVINA MADDOX MD Ot I10 ESSENTIAL (PRIMARY) HYPERTENSION 08/22/2016 DAVINA MADDOX MD Ot M79.1 MYALGIA 08/22/2016 DAVINA MADDOX MD Ot R11.0 NAUSEA 08/22/2016 DAVINA MADDOX MD Ot Z79.4 RESIDENTIAL (CURRENT) USE OF INSULIN 08/22/2016 DAVINA MADDOX MD Ot Z79.84 RESIDENTIAL (CURRENT) USE OF ORAL HYPOGLYC 08/22/2016 DAVINA MADDOX MD Ot Z79.899 OTHER CUT OUT PRESS OPERATOR (CURRENT) DRUG THERAPY 08/24/2016 DAVINA MADDOX MD Ot E11.9 TYPE 2 DIABETES MELLITUS WITHOUT COMPLIC 08/24/2016 DAVINA MADDOX MD Ot I10 ESSENTIAL (PRIMARY) HYPERTENSION 08/24/2016 DAVINA MADDOX MD Ot M79.1 MYALGIA 08/24/2016 DAVINA MADDOX MD Ot R11.0 NAUSEA 08/24/2016 DAVINA MADDOX MD Ot Z79.4 RESIDENTIAL (CURRENT) USE OF INSULIN 08/24/2016 DAVINA MADDOX MD Ot Z79.84 RESIDENTIAL (CURRENT) USE OF ORAL HYPOGLYC 08/24/2016 TAN RODRIGUEZ, DAVINA Soriano Ot Z79.899 OTHER RESIDENTIAL (CURRENT) DRUG THERAPY 08/24/2016 DAVINA MADDOX MD Ot E11.9 TYPE 2 DIABETES MELLITUS WITHOUT COMPLIC 08/24/2016 DAVINA MADDOX MD Ot I10 ESSENTIAL (PRIMARY) HYPERTENSION 08/24/2016 DAVINA MADDOX MD Ot M79.1 MYALGIA 08/24/2016 DAVINA MADDOX MD Ot R11.0 NAUSEA 08/24/2016 DAVINA MADDOX MD Ot Z79.4 RESIDENTIAL (CURRENT) USE OF INSULIN 08/24/2016 DAVINA MADDOX MD Ot Z79.84 CUT OUT PRESS OPERATOR (CURRENT) USE OF ORAL HYPOGLYC 08/24/2016 DAVINA MADDOX MD Ot Z79.899 OTHER RESIDENTIAL (CURRENT) DRUG THERAPY 08/28/2016 DAVINA MADDOX MD Ot E11.9 TYPE 2 DIABETES MELLITUS WITHOUT COMPLIC 08/28/2016 ADVINA MADDOX MD Ot I10 ESSENTIAL (PRIMARY) HYPERTENSION 08/28/2016 DAVINA MADDOX MD Ot M79.1 MYALGIA 08/28/2016 DAVINA MADDOX MD Ot R11.0 NAUSEA 08/28/2016 DAVINA MADDOX MD Ot Z79.4 CUT OUT PRESS OPERATOR (CURRENT) USE OF INSULIN 08/28/2016 DAVINA MADDOX MD Ot Z79.84 RESIDENTIAL (CURRENT) USE OF ORAL HYPOGLYC 08/28/2016 DAVINA MADDOX MD Ot Z79.899 OTHER RESIDENTIAL (CURRENT) DRUG THERAPY 09/25/2016 DAVINA MADDOX MD Ot E11.65 TYPE 2 DIABETES MELLITUS WITH HYPERGLYCE 09/25/2016 DAVINA MADDOX MD Ot E66.01 MORBID (SEVERE) OBESITY DUE TO EXCESS CA 09/25/2016 DAVINA MADDOX MD Ot I10 ESSENTIAL (PRIMARY) HYPERTENSION 09/25/2016 DAVINA MADDOX MD Ot K21.9 GASTRO-ESOPHAGEAL REFLUX DISEASE WITHOUT 09/25/2016 DAVINA MADDOX MD Ot R10.84 GENERALIZED ABDOMINAL PAIN 09/25/2016 DAVINA MADDOX MD Ot Z79.4 RESIDENTIAL (CURRENT) USE OF INSULIN 09/25/2016 DAVINA MADDOX MD Ot Z79.899 OTHER RESIDENTIAL (CURRENT) DRUG THERAPY 09/25/2016 DAVINA MADDOX MD [...] PAIN 10/03/2016 DAVINA MADDOX MD Ot Z79.4 CUT OUT PRESS OPERATOR (CURRENT) USE OF INSULIN 10/03/2016 DAVINA MADDOX MD Ot Z79.899 OTHER CUT OUT PRESS OPERATOR (CURRENT) DRUG THERAPY 10/03/2016 DAVINA MADDOX MD Ot Z91.14 PATIENT'S OTHER NONCOMPLIANCE WITH MEDIC 11/18/2016 MAMIE DUBOIS MD Ot J18.9 PNEUMONIA, UNSPECIFIED ORGANISM 11/18/2016 SILVINO RODRIGUEZ, MAMIE Carrasco Ot R04.2 HEMOPTYSIS 12/19/2016 ALDEN CARBAJAL APRN Ot E11.65 TYPE 2 DIABETES MELLITUS WITH HYPERGLYCE 12/19/2016 ALDEN CARBAJAL APRN Ot E66.9 OBESITY, UNSPECIFIED 12/19/2016 ALDEN CARBAJAL DIRECTOR OF MARKETING ANALYTICS Ot E86.9 VOLUME DEPLETION, UNSPECIFIED 12/19/2016 ALDEN [...] R42 DIZZINESS AND GIDDINESS 03/20/2017 ALDEN CARBAJAL DIRECTOR OF MARKETING ANALYTICS Ot E11.65 TYPE 2 DIABETES MELLITUS WITH HYPERGLYCE 03/20/2017 ALDEN CARBAJAL DIRECTOR OF MARKETING ANALYTICS Ot E66.9 OBESITY, UNSPECIFIED 03/20/2017 ALDEN CARBAJAL DIRECTOR OF MARKETING ANALYTICS Ot E86.9 VOLUME DEPLETION, UNSPECIFIED 03/20/2017 ALDEN CARBAJAL DIRECTOR OF MARKETING ANALYTICS Ot R42 DIZZINESS AND GIDDINESS 04/20/2017 MAMIE [...] OF SKIN 05/07/2017 ANA ECHOLS Ot Z79.4 RESIDENTIAL (CURRENT) USE OF INSULIN 05/07/2017 ANA ECHLOS Ot Z79.84 RESIDENTIAL (CURRENT) USE OF ORAL HYPOGLYC 05/07/2017 ANA [...] OF SKIN 05/10/2017 ANA ECHOLS Ot Z79.4 RESIDENTIAL (CURRENT) USE OF INSULIN 05/10/2017 ANA ECHOLS Ot Z79.84 RESIDENTIAL (CURRENT) USE OF ORAL HYPOGLYC 05/10/2017 ANA [...] ADULT 05/18/2017 TALITA MARTINS MD, Ot Z79.4 CUT OUT PRESS OPERATOR (CURRENT) USE OF INSULIN 06/20/2017 MAMIE DUBOIS [...] ADULT 07/13/2017 LUPE BARCLAY MD Ot Z79.4 RESIDENTIAL (CURRENT) USE OF INSULIN 07/13/2017 LUPE BARCLAY [...] R35.0 FREQUENCY OF MICTURITION 07/19/2017 LUPE BARCLAY MD, Ot Z68.42 BODY MASS INDEX (BMI) 45.0-49.9, ADULT 07/19/2017 LUPE BARCLAY MD, Ot Z79.4 RESIDENTIAL (CURRENT) USE OF INSULIN 07/19/2017 LUPE BARCLAY MD, Ot Z82.49 FAMILY HX OF ISCHEM HEART DIS AND OTH DI 11/21/2017 LUPE BARCLAY MD, Ot E10.649 TYPE 1 DIABETES MELLITUS WITH HYPOGLYCEM 11/21/2017 LUPE BARCLAY MD, Ot E11.40 TYPE 2 DIABETES MELLITUS WITH DIABETIC N 11/21/2017 LUPE BARCLAY MD, Ot E66.09 OTHER OBESITY DUE TO EXCESS CALORIES 11/21/2017 LUPE BARCLAY MD, Ot F32.9 MAJOR DEPRESSIVE DISORDER, SINGLE EPISOD 11/21/2017 LUPE BARCLAY MD, Ot F41.9 ANXIETY DISORDER, UNSPECIFIED 11/21/2017 LUPE BARCLAY MD, Ot F90.9 ATTENTION-DEFICIT HYPERACTIVITY DISORDER 11/21/2017 LUPE BACRLAY MD Ot I10 ESSENTIAL (PRIMARY) HYPERTENSION 11/21/2017 LUPE BARCLAY MD, Ot J44.9 CHRONIC OBSTRUCTIVE PULMONARY DISEASE, U 11/21/2017 LUPE BARCLAY MD, Ot K21.9 GASTRO-ESOPHAGEAL REFLUX DISEASE WITHOUT 11/21/2017 LUPE BARCLAY MD, Ot Z79.4 CUT OUT PRESS OPERATOR (CURRENT) USE OF INSULIN 11/21/2017 LUPE BARCLAY MD, Ot Z88.1 ALLERGY STATUS TO OTHER ANTIBIOTIC AGENT 11/21/2017 LUPE BARCLAY MD, Ot Z88.5 ALLERGY STATUS TO NARCOTIC AGENT STATUS 11/21/2017 LUPE BARCLAY MD, Ot Z88.8 ALLERGY STATUS TO OT DRUG/MEDS/BIOL SUB 02/05/2018 ANA ECHOLS Ot E11.65 TYPE 2 DIABETES MELLITUS WITH HYPERGLYCE 02/05/2018 ANA ECHOLS Ot E66.01 MORBID (SEVERE) OBESITY DUE TO EXCESS CA 02/05/2018 ANA ECHOLS Ot E86.9 VOLUME DEPLETION, UNSPECIFIED 02/05/2018 ANA ECHOLS Ot F32.9 MAJOR DEPRESSIVE DISORDER, SINGLE EPISOD 02/05/2018 ANA ECHOLS Ot F41.9 ANXIETY DISORDER, UNSPECIFIED 02/05/2018 ANA ECHOLS Ot F90.9 ATTENTION-DEFICIT HYPERACTIVITY DISORDER 02/05/2018 ANA ECHOLS Ot I10 ESSENTIAL (PRIMARY) HYPERTENSION 02/05/2018 ANA ECHOLS Ot J45.909 UNSPECIFIED ASTHMA, UNCOMPLICATED 02/05/2018 ANA ECHOLS Ot K21.9 GASTRO-ESOPHAGEAL REFLUX DISEASE WITHOUT 02/05/2018 ANA ECHOLS Ot R06.02 SHORTNESS OF BREATH 02/05/2018 ANA ECHOLS Ot Z68.42 BODY MASS INDEX (BMI) 45.0-49.9, ADULT 02/05/2018 ANA ECHOLS Ot Z79.4 CUT OUT PRESS OPERATOR (CURRENT) USE OF INSULIN 02/05/2018 ANA ECHOLS Ot Z82.49 FAMILY HX OF ISCHEM HEART DIS AND OTH DI 02/05/2018 ANA ECHOLS Ot Z88.1 ALLERGY STATUS TO OTHER ANTIBIOTIC AGENT 02/05/2018 ANA ECHOLS Ot Z88.5 ALLERGY STATUS TO NARCOTIC AGENT STATUS 02/05/2018 ANA ECHOLS Ot Z88.8 ALLERGY STATUS TO OTH DRUG/MEDS/BIOL SUB 02/05/2018 ANA ECHOLS Ot Z91.14 PATIENT'S OTHER NONCOMPLIANCE WITH MEDIC 02/14/2018 SHRADDHA STEPHENS TRAVEL INSURANCE AGENT Ot 784.0 HEADACHE 02/14/2018 RAFAELA PAREDES TRAVEL INSURANCE AGENT Ot 571.8 CHRONIC LIVER DIS NEC 02/14/2018 RAFAELA PAREDES TRAVEL INSURANCE AGENT Ot 786.50 CHEST PAIN NOS 02/14/2018 RAFAELA PAREDES TRAVEL INSURANCE AGENT Ot 789.01 ABDOMINAL PAIN, RIGHT UPPER QUADRANT 02/14/2018 RAFAELA PAREDES TRAVEL INSURANCE AGENT Ot 789.1 HEPATOMEGALY 02/14/2018 IESHA RODRIGUEZ, SHANIQUE Soriano Ot V72.84 EXAM PRE-OPERATIVE NOS 02/14/2018 MARY RODRIGUEZ, ALISA Ot 575.8 DIS OF GALLBLADDER NEC 02/14/2018 ALISA HERNANDEZ MD Ot V72.83 EXAM PRE-OPERATIVE NEC 02/14/2018 ALISA HERNANDEZ MD Ot V74.8 SCREEN-BACTERIAL DIS NEC 02/14/2018 SANTOSH TAM MD Ot 272.4 HYPERLIPIDEMIA NEC/NOS 02/14/2018 SANTOSH TAM MD Ot 785.1 PALPITATIONS 02/14/2018 SANTOSH TAM MD Ot 786.05 SHORTNESS OF BREATH 02/14/2018 SANTOSH TAM MD Ot 786.50 CHEST PAIN NOS 02/14/2018 SANTOSH TAM MD Ot 272.4 HYPERLIPIDEMIA NEC/NOS 02/14/2018 SNATOSH TAM MD Ot 785.1 PALPITATIONS 02/14/2018 SANTOSH TAM MD Ot 786.05 SHORTNESS OF BREATH 02/14/2018 SANTOSH TAM MD Ot 786.50 CHEST PAIN NOS 02/14/2018 SANTOSH TAM MD Ot 272.4 HYPERLIPIDEMIA NEC/NOS 02/14/2018 SANTOSH TAM MD Ot 785.1 PALPITATIONS 02/14/2018 SANTOSH TAM MD Ot 786.05 SHORTNESS OF BREATH 02/14/2018 SANTOSH TAM MD Ot 786.50 CHEST PAIN NOS 02/14/2018 NERISSA MARTINEZ TRAVEL INSURANCE AGENT Ot K76.0 FATTY (CHANGE OF) LIVER, NOT ELSEWHERE C 02/14/2018 NERISSA MARTINEZ TRAVEL INSURANCE AGENT Ot R10.84 GENERALIZED ABDOMINAL PAIN 03/02/2018 SHRADDHA STEPHENS TRAVEL INSURANCE AGENT Ot 784.0 HEADACHE 03/02/2018 RAFAELA PAREDES TRAVEL INSURANCE AGENT Ot 571.8 CHRONIC LIVER DIS NEC 03/02/2018 RAFAELA PAREDES TRAVEL INSURANCE AGENT Ot 786.50 CHEST PAIN NOS 03/02/2018 RAFAELA PAREDES TRAVEL INSURANCE AGENT Ot 789.01 ABDOMINAL PAIN, RIGHT UPPER QUADRANT 03/02/2018 RAFAELA PAREDES TRAVEL INSURANCE AGENT Ot 789.1 HEPATOMEGALY 03/02/2018 IESHA RODRIGUEZ, SHANIQUE Soriano Ot V72.84 EXAM PRE-OPERATIVE NOS 03/02/2018 ALISA HERNANDEZ MD Ot 575.8 DIS OF GALLBLADDER NEC 03/02/2018 ALISA HERNANDEZ MD Ot V72.83 EXAM PRE-OPERATIVE NEC 03/02/2018 ALISA HERNANDEZ MD Ot V74.8 SCREEN-BACTERIAL DIS NEC 03/02/2018 SANTOSH TAM MD Ot 272.4 HYPERLIPIDEMIA NEC/NOS 03/02/2018 SANTOSH TAM MD Ot 785.1 PALPITATIONS 03/02/2018 SANTOSH TAM MD Ot 786.05 SHORTNESS OF BREATH 03/02/2018 SANTOSH TAM MD Ot 786.50 CHEST PAIN NOS 03/02/2018 SANTOSH TAM MD Ot 272.4 HYPERLIPIDEMIA NEC/NOS 03/02/2018 SANTOSH TAM MD Ot 785.1 PALPITATIONS 03/02/2018 SANTOSH TAM MD Ot 786.05 SHORTNESS OF BREATH 03/02/2018 SANTOSH TAM MD Ot 786.50 CHEST PAIN NOS 03/02/2018 SANTOSH TAM MD Ot 272.4 HYPERLIPIDEMIA NEC/NOS 03/02/2018 SANTOSH TAM MD Ot 785.1 PALPITATIONS 03/02/2018 SANTOSH TAM MD Ot 786.05 SHORTNESS OF BREATH 03/02/2018 SANTOSH TAM MD Ot 786.50 CHEST PAIN NOS 03/02/2018 NERISSA MARTINEZ Ot K76.0 FATTY (CHANGE OF) LIVER, NOT ELSEWHERE C 03/02/2018 NERISSA MARTINEZ Ot R10.84 GENERALIZED ABDOMINAL PAIN 05/11/2018 Ot E11.65 TYPE 2 DIABETES MELLITUS WITH HYPERGLYCE 05/11/2018 Ot E66.01 MORBID ( SEVERE) OBESITY DUE TO EXCESS CA 05/11/2018 Ot F32.9 MAJOR DEPRESSIVE DISORDER, SINGLE EPISOD 05/11/2018 Ot F41.9 ANXIETY DISORDER, UNSPECIFIED 05/11/2018 Ot F90.9 ATTENTION- DEFICIT HYPERACTIVITY DISORDER 05/11/2018 Ot I10 ESSENTIAL ( PRIMARY) HYPERTENSION 05/11/2018 Ot J45.909 UNSPECIFIED ASTHMA, UNCOMPLICATED 05/11/2018 Ot K21.9 GASTRO- ESOPHAGEAL REFLUX DISEASE WITHOUT 05/11/2018 Ot R10.84 GENERALIZED ABDOMINAL PAIN 05/11/2018 Ot Z79.4 CUT OUT PRESS OPERATOR ( CURRENT) USE OF INSULIN 05/11/2018 Ot Z82.49 FAMILY HX OF ISCHEM HEART DIS AND OTH DI 05/11/2018 Ot Z87.448 PERSONAL HISTORY OF OTHER DISEASES OF UR 05/11/2018 Ot Z88.1 ALLERGY STATUS TO OTHER ANTIBIOTIC AGENT 05/11/2018 Ot Z88.5 ALLERGY STATUS TO NARCOTIC AGENT STATUS 05/11/2018 Ot Z88.8 ALLERGY STATUS TO OTH DRUG/MEDS/BIOL SUB 05/13/2018 Ot E11.65 TYPE 2 DIABETES MELLITUS WITH HYPERGLYCE 05/13/2018 Ot E66.01 MORBID ( SEVERE) OBESITY DUE TO EXCESS CA 05/13/2018 Ot F32.9 MAJOR DEPRESSIVE DISORDER, SINGLE EPISOD 05/13/2018 Ot F41.9 ANXIETY DISORDER, UNSPECIFIED 05/13/2018 Ot F90.9 ATTENTION- DEFICIT HYPERACTIVITY DISORDER 05/13/2018 Ot I10 ESSENTIAL ( PRIMARY) HYPERTENSION 05/13/2018 Ot J45.909 UNSPECIFIED ASTHMA, UNCOMPLICATED 05/13/2018 Ot K21.9 GASTRO- ESOPHAGEAL REFLUX DISEASE WITHOUT 05/13/2018 Ot R10.84 GENERALIZED ABDOMINAL PAIN 05/13/2018 Ot Z79.4 CUT OUT PRESS OPERATOR ( CURRENT) USE OF INSULIN 05/13/2018 Ot Z82.49 FAMILY HX OF ISCHEM HEART DIS AND OTH DI 05/13/2018 Ot Z87.448 PERSONAL HISTORY OF OTHER DISEASES OF UR 05/13/2018 Ot Z88.1 ALLERGY STATUS TO OTHER ANTIBIOTIC AGENT 05/13/2018 Ot Z88.5 ALLERGY STATUS TO NARCOTIC AGENT STATUS 05/13/2018 Ot Z88.8 ALLERGY STATUS TO OTH DRUG/MEDS/BIOL SUB 06/12/2018 LUPE BARCLAY MD Ot E11.42 TYPE 2 DIABETES MELLITUS WITH DIABETIC P 06/12/2018 LUPE BARCLAY MD Ot E66.01 MORBID (SEVERE) OBESITY DUE TO EXCESS CA 06/12/2018 LUPE BARCLAY MD Ot E86.0 DEHYDRATION 06/12/2018 LUPE BARCLAY MD Ot F32.9 MAJOR DEPRESSIVE DISORDER, SINGLE EPISOD 06/12/2018 LUPE BARCLAY MD Ot F41.9 ANXIETY DISORDER, UNSPECIFIED 06/12/2018 LUPE BARCLAY MD Ot F90.9 ATTENTION-DEFICIT HYPERACTIVITY DISORDER 06/12/2018 LUPE BARCLAY MD Ot I10 ESSENTIAL (PRIMARY) HYPERTENSION 06/12/2018 LUPE BARCLAY MD Ot J44.9 CHRONIC OBSTRUCTIVE PULMONARY DISEASE, U 06/12/2018 LUPE BARCLAY MD Ot K21.9 GASTRO-ESOPHAGEAL REFLUX DISEASE WITHOUT 06/12/2018 LUPE BARCLAY MD Ot R10.84 GENERALIZED ABDOMINAL PAIN 06/12/2018 LUPE BARCLAY MD, Ot Z68.42 BODY MASS INDEX (BMI) 45.0-49.9, ADULT 06/12/2018 LUPE BARCLAY MD, Ot Z79.4 CUT OUT PRESS OPERATOR (CURRENT) USE OF INSULIN 06/12/2018 LUPE BARCLAY MD Ot Z82.49 FAMILY HX OF ISCHEM HEART DIS AND OTH DI 06/12/2018 LUPE BARCLAY MD, Ot Z87.19 PERSONAL HISTORY OF OTHER DISEASES OF TH 06/12/2018 LUPE BARCLAY MD, Ot Z88.1 ALLERGY STATUS TO OTHER ANTIBIOTIC AGENT 06/12/2018 LUPE BARCLAY MD, Ot Z88.5 ALLERGY STATUS TO NARCOTIC AGENT STATUS 06/12/2018 LUPE BARCLAY MD, Ot Z88.8 ALLERGY STATUS TO OTH DRUG/MEDS/BIOL SUB 06/14/2018 LUPE BARCLAY MD Ot E11.42 TYPE 2 DIABETES MELLITUS WITH DIABETIC P 06/14/2018 LUPE BARCLAY MD Ot E66.01 MORBID (SEVERE) OBESITY DUE TO EXCESS CA 06/14/2018 LUPE BARCLAY MD Ot E86.0 DEHYDRATION 06/14/2018 LUPE BARCLAY MD Ot F32.9 MAJOR DEPRESSIVE DISORDER, SINGLE EPISOD 06/14/2018 LUPE BARCLAY MD Ot F41.9 ANXIETY DISORDER, UNSPECIFIED 06/14/2018 LUPE BARCLAY MD Ot F90.9 ATTENTION-DEFICIT HYPERACTIVITY DISORDER 06/14/2018 LUPE BARCLAY MD Ot I10 ESSENTIAL (PRIMARY) HYPERTENSION 06/14/2018 LUPE BARCLAY MD Ot J44.9 CHRONIC OBSTRUCTIVE PULMONARY DISEASE, U 06/14/2018 LUPE BARCLAY MD, Ot K21.9 GASTRO-ESOPHAGEAL REFLUX DISEASE WITHOUT 06/14/2018 LUPE BARCLAY MD, Ot R10.84 GENERALIZED ABDOMINAL PAIN 06/14/2018 LUPE BARCLAY MD, Ot Z68.42 BODY MASS INDEX (BMI) 45.0-49.9, ADULT 06/14/2018 LUPE BARCLAY MD, Ot Z79.4 RESIDENTIAL (CURRENT) USE OF INSULIN 06/14/2018 LUPE BARCLAY MD, Ot Z82.49 FAMILY HX OF ISCHEM HEART DIS AND OTH DI 06/14/2018 LUPE BARCLAY MD Ot Z87.19 PERSONAL HISTORY OF OTHER DISEASES OF TH 06/14/2018 LUPE BARCLAY MD, Ot Z88.1 ALLERGY STATUS TO OTHER ANTIBIOTIC AGENT 06/14/2018 LUPE BARCLAY MD, Ot Z88.5 ALLERGY STATUS TO NARCOTIC AGENT STATUS 06/14/2018 LUPE BARCLAY MD, Ot Z88.8 ALLERGY STATUS TO OTH DRUG/MEDS/BIOL SUB 06/21/2018 KAT SHRADDHA Charles TRAVEL INSURANCE AGENT Ot 784.0 HEADACHE 06/21/2018 RAFAELA PAREDES TRAVEL INSURANCE AGENT Ot 571.8 CHRONIC LIVER DIS NEC 06/21/2018 RAFAELA PAREDES TRAVEL INSURANCE AGENT Ot 786.50 CHEST PAIN NOS 06/21/2018 RAFAELA PAREDES TRAVEL INSURANCE AGENT Ot 789.01 ABDOMINAL PAIN, RIGHT UPPER QUADRANT 06/21/2018 RAFAELA PAREDES TRAVEL INSURANCE AGENT Ot 789.1 HEPATOMEGALY 06/21/2018 IESHA RODRIGUEZ, SHANIQUE Soriano Ot V72.84 EXAM PRE-OPERATIVE NOS 06/21/2018 ALISA HERNANDEZ MD Ot 575.8 DIS OF GALLBLADDER NEC 06/21/2018 ALISA HERNANDEZ MD Ot V72.83 EXAM PRE-OPERATIVE NEC 06/21/2018 ALISA HERNANDEZ MD Ot V74.8 SCREEN-BACTERIAL DIS NEC 06/21/2018 SANTOSH TAM MD Ot 272.4 HYPERLIPIDEMIA NEC/NOS 06/21/2018 SANTOSH TAM MD Ot 785.1 PALPITATIONS 06/21/2018 SANTOSH TAM MD Ot 786.05 SHORTNESS OF BREATH 06/21/2018 SANTOSH TAM MD Ot 786.50 CHEST PAIN NOS 06/21/2018 SANTOSH TAM MD Ot 272.4 HYPERLIPIDEMIA NEC/NOS 06/21/2018 SANTOSH TAM MD Ot 785.1 PALPITATIONS 06/21/2018 SANTOSH TAM MD Ot 786.05 SHORTNESS OF BREATH 06/21/2018 SANTOSH TAM MD Ot 786.50 CHEST PAIN NOS 06/21/2018 SANTOSH TAM MD Ot 272.4 HYPERLIPIDEMIA NEC/NOS 06/21/2018 SANTOSH TAM MD Ot 785.1 PALPITATIONS 06/21/2018 SANTOSH TAM MD Ot 786.05 SHORTNESS OF BREATH 06/21/2018 SANTOSH TAM MD Ot 786.50 CHEST PAIN NOS 06/21/2018 NERISSA MARTINEZ Ot K76.0 FATTY (CHANGE OF) LIVER, NOT ELSEWHERE C 06/21/2018 NERISSA MARTINEZ Ot R10.84 GENERALIZED ABDOMINAL PAIN 06/22/2018 LUPE BARCLAY MD, Ot E11.42 TYPE 2 DIABETES MELLITUS WITH DIABETIC P 06/22/2018 LUPE BARCLAY MD, Ot E66.01 MORBID (SEVERE) OBESITY DUE TO EXCESS CA 06/22/2018 LUPE BARCLAY MD, Ot E86.0 DEHYDRATION 06/22/2018 LUPE BARCLAY MD, Ot F32.9 MAJOR DEPRESSIVE DISORDER, SINGLE EPISOD 06/22/2018 LUPE BARCLAY MD, Ot F41.9 ANXIETY DISORDER, UNSPECIFIED 06/22/2018 LUPE BARCLAY MD, Ot F90.9 ATTENTION-DEFICIT HYPERACTIVITY DISORDER 06/22/2018 LUPE BARCLAY MD, Ot I10 ESSENTIAL (PRIMARY) HYPERTENSION 06/22/2018 LUPE BARCLAY MD, Ot J44.9 CHRONIC OBSTRUCTIVE PULMONARY DISEASE, U 06/22/2018 LUPE BARCLAY MD, Ot K21.9 GASTRO-ESOPHAGEAL REFLUX DISEASE WITHOUT 06/22/2018 LUPE BARCLAY MD Ot R10.84 GENERALIZED ABDOMINAL PAIN 06/22/2018 LUPE BARCLAY MD, Ot Z68.42 BODY MASS INDEX (BMI) 45.0-49.9, ADULT 06/22/2018 LUPE BARCLAY MD, Ot Z79.4 RESIDENTIAL (CURRENT) USE OF INSULIN 06/22/2018 LUPE BARCLAY MD, Ot Z82.49 FAMILY HX OF ISCHEM HEART DIS AND OTH DI 06/22/2018 LUPE BARCLAY MD, Ot Z87.19 PERSONAL HISTORY OF OTHER DISEASES OF TH 06/22/2018 LUPE BARCLAY MD, Ot Z88.1 ALLERGY STATUS TO OTHER ANTIBIOTIC AGENT 06/22/2018 LUPE BARCLAY MD, Ot Z88.5 ALLERGY STATUS TO NARCOTIC AGENT STATUS 06/22/2018 DENY RODRIGUEZ LUPE Weldon Ot Z88.8 ALLERGY STATUS TO OTH DRUG/MEDS/BIOL SUB 06/28/2018 FARAZ DE LEON DO Ot Z01.818 ENCOUNTER FOR OTHER PREPROCEDURAL EXAMIN 06/30/2018 FARAZ DE ELON DO Ot Z01.818 ENCOUNTER FOR OTHER PREPROCEDURAL EXAMIN 07/04/2018 FARAZ DE LEON DO Ot Z01.818 ENCOUNTER FOR OTHER PREPROCEDURAL EXAMIN Procedures Code [place] [address] UA LONG DIP 11/08/2012 81345 ROUTINE VENIPUNCTURE 11/22/2012 74383 A1C (IN-HOUSE) 11/22/2012 33875 CMP 11/22/2012 [id number] GFR CALC (RESULT ONLY) 11/22/2012 24600 LIPID PANEL 11/22/2012 08592 CBC 11/22/2012 83859 GLUCOSE FINGER STICK 01/05/2013 73289 A1C (IN-HOUSE) 01/26/2013 56072 ROUTINE VENIPUNCTURE 01/26/2013 03959 TESTOSTERONE TOTAL 01/27/2013 16105 ROUTINE VENIPUNCTURE 03/09/2013 47010 CMP 03/10/2013 [id number] GFR CALC (RESULT ONLY) 03/10/2013 23842 TESTOSTERONE PANEL (FREE, TOTAL, and SHBG) 03/14/2013 71664 GLUCOSE FINGER STICK 06/06/2013 95682 A1C (IN-HOUSE) 06/06/2013 86377 ROUTINE VENIPUNCTURE 08/08/2013 09102 MICRO ALBUMIN-IN HOUSE 08/08/2013 [id number] GFR CALC (RESULT ONLY) 08/08/2013 49050 CMP 08/08/2013 28093 LIPID PANEL 08/08/2013 18671 TSH 08/08/2013 53916 TESTOSTERONE TOTAL 08/09/2013 94667 A1C (IN-HOUSE) 01/09/2014 50793 ROUTINE VENIPUNCTURE 04/02/2014 00847 CBC 04/02/2014 6900213 GFR CALC (RESULT ONLY) 04/02/2014 55558 CMP 04/02/2014 08909 LIPID PANEL 04/02/2014 82022 TSH 04/02/2014 TESTFRTOT TESTOSTERONE FREE AND TOTAL MALE 04/02/2014 96840 THERAPUTIC INJ SQ/IM 04/10/2014 J1040 DEPO MEDROL 80 MG INJ 04/10/2014 65181 OXIMETRY 05/04/[address] HEAD/BRAIN W/O DYE 05/15/2014 24842 SLEEP STUDY (HOSPITAL- SLEEP STUDY) 05/15/2014 Psychiatr [facility], [facility] 05/15/2014 61887 PULMONARY FUNCTION TEST 06/01/2014 90482 SLEEP STUDY (HOME) 06/01/2014 47288 US GALLBLADDER ULTRASOUND 08/07/2014 94847 HIDA SCAN 08/07/2014 47837 PULMONARY FUNCTION TEST (IN- HOUSE) 08/10/2014 19033 BRONCHODILATION PRE/POST 08/10/2014 86837 RESPIRATORY FLOW VOLUME LOOP 08/10/2014 71447 PULMONARY EDUCATION 08/10/2014 84355 PSYCH DIAGNOSTIC EVALUATION 12/11/2014 62206 PSYTX PT&/FAMILY 30 MINUTES 12/19/2014 26984 [employer] 12/25/2014 16570 PSYTX PT&/FAMILY 30 MINUTES 12/28/2014 43835 PSYTX PT&/FAMILY 45 MINUTES 01/07/2015 Results Test [...] measurement by glucometer (mass/volume) 352 mg/dL 70-110 CBC With Differential/Platelet - 11/02/16 10:37 WBC 6.2 x10E3/uL 3.4-10.8 RBC 5.04 x10E6/uL 4.14-5.80 Hemoglobin 14.9 g/dL 12.6-17.7 Hematocrit 43.6 % 37.5-51.0 MCV 87 fL 79-97 MCH 29.6 pg 26.6-33.0 MCHC 34.2 g/dL 31.5-35.7 RDW 13.6 % 12.3-15.4 Platelets 214 x10E3/uL 150-379 Neutrophils 43 % Lymphs 43 % Monocytes 8 % Eos 5 % Basos 1 % Neutrophils (Absolute) 2.7 x10E3/uL 1.4-7.0 Lymphs (Absolute) 2.7 x10E3/uL 0.7-3.1 Monocytes(Absolute) 0.5 x10E3/uL 0.1-0.9 Eos (Absolute) 0.3 x10E3/uL 0.0-0.4 Baso (Absolute) 0.1 x10E3/uL 0.0-0.2 Hematology Comments: Note: Comp. Metabolic Panel (14) - 11/02/16 10:37 Glucose, Serum 180 mg/dL 65-99 BUN 15 mg/dL 6-20 Creatinine, Serum 0.75 mg/dL 0.76-1.27 eGFR If NonAfricn Am 116 mL/min/1.73 >59 eGFR If Africn Am 135 mL/min/1.73 >59 BUN/Creatinine Ratio 20 8-19 Sodium, Serum 140 mmol/L 134-144 Potassium, Serum 4.8 mmol/L 3.5-5.2 Chloride, Serum 103 mmol/L 96-106 Carbon Dioxide, Total 20 mmol/L 18-29 Calcium, Serum 9.1 mg/dL 8.7-10.2 Protein, Total, Serum 6.3 g/dL 6.0-8.5 Albumin, Serum 4.1 g/dL 3.5-5.5 Globulin, Total 2.2 g/dL 1.5-4.5 A/G Ratio 1.9 1.1-2.5 Bilirubin, Total 0.3 mg/dL 0.0-1.2 Alkaline Phosphatase, S 66 IU/L 39-117 AST (SGOT) 37 IU/L 0-40 ALT (SGPT) 53 IU/L 0-44 Lipid Panel - 11/02/16 10:37 Cholesterol, Total 170 mg/dL 100-199 Triglycerides 264 mg/dL 0-149 HDL Cholesterol 37 mg/dL >39 VLDL Cholesterol Ervin 53 mg/dL 5-40 LDL Cholesterol Calc 80 mg/dL 0-99 Complete blood count (CBC) with automated white [...] measurement by glucometer (mass/volume) 151 mg/dL 70-110 CBC With Differential/Platelet - 04/22/17 12:19 WBC 5.7 x10E3/uL 3.4-10.8 RBC 4.94 x10E6/uL 4.14-5.80 Hemoglobin 14.5 g/dL 12.6-17.7 Hematocrit 43.7 % 37.5-51.0 MCV 89 fL 79-97 MCH 29.4 pg 26.6-33.0 MCHC 33.2 g/dL 31.5-35.7 RDW 12.8 % 12.3-15.4 Platelets 183 x10E3/uL 150-379 Neutrophils 57 % Lymphs 33 % Monocytes 7 % Eos 2 % Basos 0 % Neutrophils (Absolute) 3.2 x10E3/uL 1.4-7.0 Lymphs (Absolute) 1.9 x10E3/uL 0.7-3.1 Monocytes(Absolute) 0.4 x10E3/uL 0.1-0.9 Eos (Absolute) 0.1 x10E3/uL 0.0-0.4 Baso (Absolute) 0.0 x10E3/uL 0.0-0.2 Immature Granulocytes 1 % Immature Grans (Abs) 0.1 x10E3/uL 0.0-0.1 Comp. Metabolic Panel (14) - 04/22/17 12:19 Glucose, Serum 212 mg/dL 65-99 BUN 16 mg/dL 6-20 Creatinine, Serum 0.72 mg/dL 0.76-1.27 eGFR If NonAfricn Am 118 mL/min/1.73 >59 eGFR If Africn Am 136 mL/min/1.73 >59 BUN/Creatinine Ratio 22 9-20 Sodium, Serum 138 mmol/L 134-144 Potassium, Serum 4.4 mmol/L 3.5-5.2 Chloride, Serum 102 mmol/L 96-106 Carbon Dioxide, Total 18 mmol/L 18-29 Calcium, Serum 9.0 mg/dL 8.7-10.2 Protein, Total, Serum 6.5 g/dL 6.0-8.5 Albumin, Serum 3.9 g/dL 3.5-5.5 Globulin, Total 2.6 g/dL 1.5-4.5 A/G Ratio 1.5 1.2-2.2 Bilirubin, Total 0.3 mg/dL 0.0-1.2 Alkaline Phosphatase, S 59 IU/L 39-117 AST (SGOT) 28 IU/L 0-40 ALT (SGPT) 36 IU/L 0-44 Lipid Panel - 04/22/17 12:19 Cholesterol, Total 193 mg/dL 100-199 Triglycerides 376 mg/dL 0-149 HDL Cholesterol 34 mg/dL >39 VLDL Cholesterol Ervin 75 mg/dL 5-40 LDL Cholesterol Calc 84 mg/dL 0-99 Testosterone, Serum - 04/22/17 12:19 Testosterone, Serum 141 ng/dL 264-916 TSH - 04/22/17 12:19 TSH 1.370 uIU/mL 0.450-4.500 Automated blood complete blood count (hemogram) panel [...] 14:47 Bacteria identification in wound by culture [id number] NRG QUANTITY OF GROWTH Moderate Growth NRG Capillary [...] measurement by glucometer (mass/volume) 234 mg/dL 70-110 MICROALBUMIN/CREATININE RATIO, URINE - 08/09/17 14:26 CREATININE, RANDOM URINE 41 mg/dL 20-370 MICROALBUMIN 0.9 mg/dL See Note: MICROALBUMIN/CREATININE RATIO, RANDOM URINE 22 mcg/mg creat <30 TESTOSTERONE, TOTAL - 09/24/17 16:26 TESTOSTERONE, TOTAL, MALES (ADULT), [place] 207 ng/dL 250-827 Capillary blood glucose measurement by glucometer (mass/volume) - 11/20/17 22: 48 Capillary blood glucose measurement by glucometer (mass/volume) 87 mg/dL 70-110 Capillary blood glucose measurement by glucometer (mass/volume) - 11/21/17 01: 27 Capillary blood glucose measurement by glucometer (mass/volume) 125 mg/dL 70-110 PDM - 09 PANEL (PROFILE 1) - 01/27/18 16:48 Prescribed Drug 1 Adderall(TM) NRG Creatinine 42.1 mg/dL > or=20.0 pH 5.52 4.5 - 9.0 Oxidant NEGATIVE mcg/mL <200 Amphetamines NEGATIVE ng/mL <500 medMATCH Amphetamines INCONSISTENT NRG Benzodiazepines NEGATIVE ng/mL <100 medMATCH Benzodiazepines CONSISTENT NRG Marijuana Metabolite NEGATIVE ng/mL <20 medMATCH Marijuana Metab CONSISTENT NRG Cocaine Metabolite NEGATIVE ng/mL <150 medMATCH Cocaine Metab CONSISTENT NRG Opiates NEGATIVE ng/mL <100 medMATCH Opiates CONSISTENT NRG Oxycodone NEGATIVE ng/mL <100 medMATCH Oxycodone CONSISTENT NRG COMMENT NRG Barbiturates NEGATIVE ng/mL <300 medMATCH Barbiturates CONSISTENT NRG Methadone Metabolite NEGATIVE ng/mL <100 medMATCH Methadone Metab CONSISTENT NRG Phencyclidine NEGATIVE ng/mL <25 medMATCH Phencyclidine CONSISTENT NRG Complete urinalysis with reflex to culture - 02/05/18 17:26 Urine color determination YELLOW NRG Urine clarity determination CLEAR NRG Urine pH measurement by test strip 5 5-9 Specific gravity of urine by test strip 1.015 1.016- 1.022 Urine protein assay by test strip, semi-quantitative NEGATIVE NEGATIVE Urine glucose detection by automated test strip 4+ NEGATIVE Erythrocytes detection in urine sediment by light microscopy NEGATIVE NEGATIVE Urine ketones detection by automated test strip 2+ NEGATIVE Urine nitrite detection by test strip [...] detection in urine sediment by light microscopy 0-2 NRG Crystals detection in urine sediment by light microscopy NONE NRG Casts detection in urine sediment by light microscopy NONE NRG Mucus detection in urine sediment by light microscopy NEGATIVE NRG Complete urinalysis with reflex to culture NO NRG Yeast detection in urine sediment by light microscopy RARE NRG Urine drug screening test - 02/05/18 17:26 Urine phencyclidine detection by screening method NEGATIVE NEGATIVE Urine benzodiazepines detection by screening method NEGATIVE NEGATIVE Urine cocaine detection NEGATIVE NEGATIVE Urine amphetamines detection by screening method NEGATIVE NEGATIVE Urine methamphetamine detection by screening method NEGATIVE NEGATIVE Urine cannabinoids detection by screening method NEGATIVE NEGATIVE Urine opiates detection by screening method NEGATIVE NEGATIVE Urine barbiturates detection NEGATIVE NEGATIVE Screening urine tricyclic antidepressants detection NEGATIVE NEGATIVE Urine methadone detection by screening method NEGATIVE NEGATIVE Urine oxycodone detection NEGATIVE NEGATIVE Urine propoxyphene detection NEGATIVE NEGATIVE Capillary blood glucose measurement by glucometer (mass/volume) - 02/05/18 18: 02 Capillary blood glucose measurement by glucometer (mass/volume) 400 mg/dL 70-110 Complete blood count (CBC) with automated white blood cell (WBC) differential - 02/05/18 18:17 Blood leukocytes automated count (number/volume) 6.6 10*3/uL 4.3-11.0 Blood erythrocytes automated count (number/volume) 5.15 10*6/uL 4.35-5.85 Venous blood hemoglobin measurement (mass/volume) 15.6 g/dL 13.3-17.7 Blood hematocrit (volume fraction) 42 % 40-54 Automated erythrocyte mean corpuscular volume 82 [foz_us] 80-99 Automated erythrocyte mean corpuscular hemoglobin (mass per erythrocyte) 30 pg 25-34 Automated erythrocyte mean corpuscular hemoglobin concentration measurement ( mass/volume) 37 g/dL 32-36 Automated erythrocyte distribution width ratio 12.8 % 10.0-14.5 Automated blood platelet count (count/volume) 182 10*3/uL 130-400 Automated blood platelet mean volume measurement 11.2 [foz_us] 7.4-10.4 Automated blood neutrophils/100 leukocytes 50 % 42-75 Automated blood lymphocytes/100 leukocytes 39 % 12-44 Blood monocytes/100 leukocytes 9 % 0-12 Automated blood eosinophils/100 leukocytes 2 % 0-10 Automated blood basophils/100 leukocytes 1 % 0-10 Blood neutrophils automated count (number/volume) 3.3 10*3 1.8-7.8 Blood lymphocytes automated count (number/volume) 2.6 10*3 1.0-4.0 Blood monocytes automated count (number/volume) 0.6 10*3 0.0-1.0 Automated eosinophil count 0.1 10*3/uL 0.0-0.3 Automated blood basophil count (count/volume) 0.0 10*3/uL 0.0-0.1 Comprehensive metabolic panel - 02/05/18 18:17 Serum or plasma sodium measurement (moles/volume) 136 mmol/L 135-145 Serum or plasma potassium measurement (moles/volume) 4.1 mmol/L 3.6-5.0 Serum or plasma chloride measurement (moles/volume) 104 mmol/L 98-107 Carbon dioxide 17 mmol/L 21-32 Serum or plasma anion gap determination (moles/volume) 15 mmol/L 5-14 Serum or plasma urea nitrogen measurement (mass/volume) 25 mg/dL 7-18 Serum or plasma creatinine measurement (mass/volume) 1.00 mg/dL 0.60-1.30 Serum or plasma urea nitrogen/creatinine mass ratio 25 NRG Serum or plasma creatinine measurement with calculation of estimated glomerular filtration rate > NRG Serum or plasma glucose measurement (mass/volume) 424 mg/dL 70-105 Serum or plasma calcium measurement (mass/volume) 9.7 mg/dL 8.5-10.1 Serum or plasma total bilirubin measurement (mass/volume) 0.4 mg/dL 0.1-1.0 Serum or plasma alkaline phosphatase measurement (enzymatic activity/volume) 78 U/L 40-136 Serum or plasma aspartate aminotransferase measurement (enzymatic activity/ volume) 18 U/L 5-34 Serum or plasma alanine aminotransferase measurement (enzymatic activity/volume ) 36 U/L 0-55 Serum or plasma protein measurement (mass/volume) 6.9 g/dL 6.4-8.2 Serum or plasma albumin measurement (mass/volume) 4.0 g/dL 3.2-4.5 Capillary blood glucose measurement by glucometer (mass/volume) - 02/05/18 19: 50 Capillary blood glucose measurement by glucometer (mass/volume) 273 mg/dL 70-110 TESTOSTERONE, TOTAL - 03/30/18 15:34 TESTOSTERONE, TOTAL, MALES (ADULT), [place] 414 ng/dL 250-827 TESTOSTERONE, TOTAL - 04/20/18 12:41 TESTOSTERONE, TOTAL, MALES (ADULT), [place] 84 ng/dL 250-827 Complete blood count (CBC) with automated white blood cell (WBC) differential - 06/12/18 00:30 Blood leukocytes automated count (number/volume) 6.8 10*3/uL 4.3-11.0 Blood erythrocytes automated count (number/volume) 5.88 10*6/uL 4.35-5.85 Venous blood hemoglobin measurement (mass/volume) 17.6 g/dL 13.3-17.7 Blood hematocrit (volume fraction) 48 % 40-54 Automated erythrocyte mean corpuscular volume 81 [foz_us] 80-99 Automated erythrocyte mean corpuscular hemoglobin (mass per erythrocyte) 30 pg 25-34 Automated erythrocyte mean corpuscular hemoglobin concentration measurement ( mass/volume) 37 g/dL 32-36 Automated erythrocyte distribution width ratio 13.1 % 10.0-14.5 Automated blood platelet count (count/volume) 224 10*3/uL 130-400 Automated blood platelet mean volume measurement 10.9 [foz_us] 7.4-10.4 Automated blood neutrophils/100 leukocytes 53 % 42-75 Automated blood lymphocytes/100 leukocytes 37 % 12-44 Blood monocytes/100 leukocytes 7 % 0-12 Automated blood eosinophils/100 leukocytes 2 % 0-10 Automated blood basophils/100 leukocytes 0 % 0-10 Blood neutrophils automated count (number/volume) 3.6 10*3 1.8-7.8 Blood lymphocytes automated count (number/volume) 2.5 10*3 1.0-4.0 Blood monocytes automated count (number/volume) 0.5 10*3 0.0-1.0 Automated eosinophil count 0.2 10*3/uL 0.0-0.3 Automated blood basophil count (count/volume) 0.0 10*3/uL 0.0-0.1 Comprehensive metabolic panel - 06/12/18 00:30 Serum or plasma sodium measurement (moles/volume) 137 mmol/L 135-145 Serum or plasma potassium measurement (moles/volume) 4.0 mmol/L 3.6-5.0 Serum or plasma chloride measurement (moles/volume) 107 mmol/L 98-107 Carbon dioxide 20 mmol/L 21-32 Serum or plasma anion gap determination (moles/volume) 10 mmol/L 5-14 Serum or plasma urea nitrogen measurement (mass/volume) 9 mg/dL 7-18 Serum or plasma creatinine measurement (mass/volume) 0.85 mg/dL 0.60-1.30 Serum or plasma urea nitrogen/creatinine mass ratio 11 NRG Serum or plasma creatinine measurement with calculation of estimated glomerular filtration rate > NRG Serum or plasma glucose measurement (mass/volume) 180 mg/dL 70-105 Serum or plasma calcium measurement (mass/volume) 9.6 mg/dL 8.5-10.1 Serum or plasma total bilirubin measurement (mass/volume) 0.9 mg/dL 0.1-1.0 Serum or plasma alkaline phosphatase measurement (enzymatic activity/volume) 80 U/L 40-136 Serum or plasma aspartate aminotransferase measurement (enzymatic activity/ volume) 52 U/L 5-34 Serum or plasma alanine aminotransferase measurement (enzymatic activity/volume ) 77 U/L 0-55 Serum or plasma protein measurement (mass/volume) 7.1 g/dL 6.4-8.2 Serum or plasma albumin measurement (mass/volume) 4.3 g/dL 3.2-4.5 CALCIUM CORRECTED 9.4 mg/dL 8.5-10.1 Serum or plasma C reactive protein measurement (mass/volume) - 06/12/18 00:30 Serum or plasma C reactive protein measurement (mass/volume) 0.59 mg /dL 0.00-0.50 Complete urinalysis with reflex to culture - 06/12/18 00:35 Urine color determination YELLOW NRG Urine clarity determination CLEAR NRG Urine pH measurement by test strip 5 5-9 Specific gravity of urine by test strip 1.025 1.016- 1.022 Urine protein assay by test strip, semi-quantitative NEGATIVE NEGATIVE Urine glucose detection by automated test strip 4+ NEGATIVE Erythrocytes detection in urine sediment by light microscopy NEGATIVE NEGATIVE Urine ketones detection by automated test strip 2+ NEGATIVE Urine nitrite detection by test strip [...] detection in urine sediment by light microscopy SMALL NRG Complete urinalysis with reflex to culture NO NRG Capillary blood glucose measurement by glucometer (mass/volume) - 06/12/18 02: 33 Capillary blood glucose measurement by glucometer (mass/volume) 162 mg/dL 70-110 Capillary blood glucose measurement by glucometer (mass/volume) - 07/05/18 10: 52 Capillary blood glucose measurement by glucometer (mass/volume) 222 mg/dL 70-110 Encounters ACCT No. Visit Date/Time Discharge Status Pt. Type Provider Facility Loc./Unit Complaint [id number] 01/08/2015 08:57:00 01/08/2015 23:59:59 CLS Outpatient ZAKI QUINTANA APRN [id number] 01/07/2015 13:05:00 01/07/2015 23:59:59 CLS Outpatient REAGAN HERRERA PHD [id number] 12/28/2014 14:43:00 12/28/2014 23:59:59 CLS Outpatient REAGAN HERRERA PHD [id number] 12/25/2014 14:47:00 12/25/2014 23:59:59 CLS Outpatient LAITH NGUYEN APRN [id number] 12/19/2014 10:11:00 12/19/2014 23:59:59 CLS Outpatient REAGAN HERRERA PHD [id number] 12/11/2014 10:31:00 12/11/2014 23:59:59 CLS Outpatient REAGAN HERRERA PHD [id number] 08/10/2014 15:43:00 08/10/2014 23:59:59 CLS Outpatient RAFAELA PAREDES APRN Bo [id number] 06/01/2014 10:32:00 06/01/2014 23:59:59 CLS Outpatient NERISSA MARTINEZ APRN Luna [id number] 05/22/2014 09:39:00 05/22/2014 23:59:59 CLS Outpatient SHRADDHA CISNEROS APRN N [id number] 05/15/2014 08:46:00 05/15/2014 23:59:59 CLS Outpatient SHRADDHA CISNEROS APRN N [id number] 05/01/2014 10:21:00 05/01/2014 23:59:59 CLS Outpatient SHRADDHA CISNEROS APRN N [id number] 04/10/2014 10:32:00 04/10/2014 23:59:59 CLS Outpatient SHRADDHA CISNEROS APRN N [id number] 04/10/2014 10:32:00 04/10/2014 23:59:59 CLS Outpatient SHRADDHA CISNEROS APRN N [id number] 04/02/2014 15:43:00 04/02/2014 23:59:59 CLS Outpatient NERISSA MARTINEZ APRN Luna [id number] 01/30/2014 08:08:00 01/30/2014 23:59:59 CLS Outpatient SHRADDHA CISNEROS APRN N [id number] 01/09/2014 10:37:00 01/09/2014 23:59:59 CLS Outpatient SHRADDHA CISNEROS APRN N [id number] 12/05/2013 00:00:00 12/05/2013 23:59:59 CLS Outpatient VIKRAM VENTURA DDS [id number] 09/25/2013 09:55:00 09/25/2013 23:59:59 CLS Outpatient ASIYA VENTURA DDS [id number] 08/08/2013 10:38:00 08/08/2013 23:59:59 CLS Outpatient ESSIE JOHNSON MD [id number] 06/06/2013 11:24:00 06/06/2013 23:59:59 CLS Outpatient SHRADDHA CISNEROS APRN [id number] 12/28/2012 14:41:00 12/28/2012 23:59:59 CLS Outpatient [id number] 12/06/2012 10:57:00 12/06/2012 23:59:59 CLS Outpatient [id number] 11/22/2012 10:57:00 11/22/2012 23:59:59 CLS Outpatient [id number] 11/08/2012 18:47:00 11/08/2012 23:59:59 CLS Outpatient [id number] 12/29/2011 13:24:00 12/29/2011 23:59:59 CLS Outpatient [id number] 05/04/2013 11:19:00 Document Registration [id number] 04/06/2013 15:07:00 Document Registration [id number] 03/09/2013 11:51:00 Document Registration [id number] 02/28/2013 10:58:00 Document Registration [id number] 01/26/2013 11:26:00 Document Registration [id number] 01/05/2013 11:00:00 Document Registration [id number] 01/05/2013 11:00:00 Document Registration [id number] 11/03/2016 17:07:00 Document Registration [id number] 06/15/2018 16:00:00 06/15/2018 23:59:59 CLS Outpatient NERISSA MARTINEZ APRN [facility] [id number] 04/20/2018 12:40:00 Document Registration [id number] 03/30/2018 15:20:00 Document Registration [id number] 01/27/2018 16:00:00 Document Registration [id number] 09/24/2017 15:40:00 Document Registration [id number] 08/09/2017 14:20:00 Document Registration [id number] 06/28/2018 05:36:00 06/28/2018 14:48:00 DIS Outpatient FARAZ DE LEON DO [facility] PREOP COLONOSCOPY/EGD [id number] 06/11/2018 21:40:00 06/12/2018 03:59:00 DIS Outpatient LUPE BARCLAY MD [facility] ER METALIC TASTE IN MOUTH , DIZZY, SIDE PAIN [id number] 02/05/2018 16:42:00 02/05/2018 20:27:00 DIS Emergency ANA ECHOLS [facility] ER SOB [id number] 11/20/2017 22:36:00 11/21/2017 01:50:00 DIS Emergency LUPE BARCLAY MD [facility] ER SHAKING,UNSURE OF BS LEVEL [id number] 07/13/2017 21:47:00 07/13/2017 23:44:00 DIS Emergency LPUE BARCLAY MD [facility] ER GENERAL MUSCLE PAIN [id number] 05/16/2017 15:58:00 05/18/2017 13:30:00 DIS Inpatient TALITA MARTINS MD [facility] 4TH SEPSIS,CELLULITIS L THIGH ,VOLUME DEPLETION,HYPERGL [id number] 05/07/2017 21:17:00 05/07/2017 23:35:00 DIS Emergency ANA ECHOLS [facility] ER LEFT LEG PAIN [id number] 01/24/2017 04:18:00 01/24/2017 07:32:00 DIS Emergency MAMIE DUBOIS MD [facility] ER LIGHT HEADED CHEST PAIN SOA [id number] 09/25/2016 16:30:00 09/25/2016 19:13:00 DIS Emergency DAVINA MADDOX MD [facility] ER ABD PAIN/LOW BACK PAIN/ NAUSEA [id number] 08/22/2016 12:02:00 08/22/2016 15:14:00 DIS Emergency DAVINA MADDOX MD [facility] ER VOMITING/HOT AND COLD FLASHES/PAIN ALL OVER [id number] 08/15/2016 05:41:00 08/15/2016 06:48:00 DIS Emergency DIANA RUIZ MD [facility] ER CP,COUGHING,FEVER [id number] 07/15/2016 10:28:00 07/15/2016 13:00:00 DIS Emergency ALDEN CARBAJAL APRN [facility] ER MUSCLE PAIN WEAKNESS [id number] 04/22/2016 11:15:00 04/22/2016 23:59:59 CLS Outpatient NERISSA MARTNIEZ [facility] RAD ABD PAIN [id number] 03/07/2016 06:29:00 03/07/2016 08:29:00 DIS Emergency MAMIE DUBOIS MD [facility] ER SOA,CP,TASTING METAL, DIZZY [id number] 02/06/2016 22:20:00 02/07/2016 00:07:00 DIS Emergency TRISTEN TUCKER DO [facility] ER BACK PAIN;HIGH BP; SWEATING [id number] 01/20/2016 08:08:00 01/21/2016 10:58:00 DIS Inpatient CHASE CEJA MD [facility] 4TH RML PNEUMONIA [id number] 01/20/2016 02:39:00 01/20/2016 04:26:00 DIS Emergency MAMIE DUBOIS MD [facility] ER COUGHING BLOOD UP [id number] 01/17/2016 20:36:00 01/17/2016 22:30:00 DIS Emergency ALDEN CARBAJAL APRN [facility] ER HEAD PRESSURE,DIZZINESS, FATIGUE [id number] 10/20/2015 01:58:00 10/20/2015 02:43:00 DIS Emergency TRISTEN TUCKER DO [facility] ER GENITAL BLEEDING [id number] 09/30/2015 11:12:00 09/30/2015 16:35:00 DIS Emergency LUPE BARCLAY MD [facility] ER MULTIPLE COMPLAINTS [id number] 09/19/2015 22:25:00 09/24/2015 12:50:00 DIS Inpatient KRISSY HALL DO [facility] 4TH DIABETIC KETOACIDOSIS, UTI [id number] 09/17/2015 18:29:00 09/17/2015 19:47:00 DIS Emergency MAMIE DUBOIS MD [facility] ER MULTIPLE COMPLAINTS [id number] 03/18/2015 21:25:00 03/19/2015 00:15:00 DIS Emergency NERISSA MENDOZA DO [facility] ER CP,DIZZINESS,ARM NUMBNESS [id number] 03/14/2015 07:41:00 03/14/2015 23:59:59 CLS Outpatient SANTOSH TAM MD [facility] CARD CP PALP,SOB [id number] 03/05/2015 09:43:00 03/05/2015 23:59:59 CLS Outpatient SANTOSH TAM MD [facility] CARD CP,PALP,SOB [id number] 03/04/2015 07:44:00 03/04/2015 23:59:59 CLS Outpatient SANTOSH TAM MD [facility] CARD CP,PALPITATIONS,SOB,HLP [id number] 01/14/2015 13:24:00 01/14/2015 17:06:00 DIS Emergency MAMIE DUBOIS MD [facility] ER CHEST PAIN;HEADACHE [id number] 12/09/2014 01:03:00 12/09/2014 01:46:00 DIS Emergency DEBRA VAUGHN MD [facility] ER JAW PAIN [id number] 10/25/2014 09:17:00 10/25/2014 10:44:00 DIS Emergency LUPE BARCLAY MD [facility] ER CHEST PAIN, PRESSURE [id number] 10/17/2014 08:47:00 10/17/2014 12:09:00 DIS Emergency MAMIE DUBOIS MD [facility] ER POSS POST OP INFECTION [id number] 10/11/2014 10:57:00 10/11/2014 21:55:00 DIS Outpatient ALISA HERNANDEZ MD [facility] SDC BILIARY DYSKINESIA [id number] 10/05/2014 13:05:00 10/05/2014 23:59:59 CLS Outpatient ALISA HERNANDEZ MD [facility] PREOP BILIARY DYSKINESIA [id number] 09/29/2014 16:04:00 09/29/2014 17:51:00 DIS Emergency DEBRA VAUGHN MD [facility] ER ABD PAIN [id number] 09/18/2014 16:20:00 09/18/2014 18:31:00 DIS Emergency ALDEN CARBAJAL APRN [facility] ER SIDE AND BACK PAIN; DIZZINESS;NAUSEA [id number] 08/30/2014 06:44:00 08/30/2014 09:10:00 DIS Outpatient SHANIQUE JULIAN MD [facility] SDC ABD PAIN [id number] 08/29/2014 06:13:00 08/29/2014 23:59:59 CLS Outpatient SHANIQUE JULIAN MD [facility] PREOP ABD PAIN [id number] 08/21/2014 19:06:00 08/21/2014 22:25:00 DIS Emergency NAA ECHOLS [facility] ER BILAT SIDE PAIN, DIZZINESS [id number] 08/07/2014 08:52:00 08/07/2014 23:59:59 CLS Outpatient RAFAELA PAREDES [facility] RAD RUQ PAIN [id number] 07/27/2014 16:47:00 07/27/2014 18:05:00 DIS Emergency LUPE BARCLAY MD [facility] ER CHEST PAIN [id number] 07/24/2014 19:00:00 07/24/2014 21:22:00 DIS Emergency NERISSA MENDOZA DO [facility] ER RAPID HEART RATE, CHEST PAIN [id number] 06/13/2014 20:18:00 06/14/2014 01:08:00 DIS Emergency MAMIE DUBOIS MD [facility] ER TROUBLE SLEEPING/ SUCIDIAL [id number] 05/18/2014 10:06:00 05/18/2014 23:59:59 CLS Outpatient SHRADDHA STEPHENS [employer]ENT [facility] RAD HEADACHES [id number] 04/29/2014 16:54:00 04/29/2014 19:10:00 DIS Emergency MAMIE DUBOIS MD [facility] ER SOA [id number] 04/18/2014 20:25:00 04/18/2014 21:49:00 DIS Emergency DEBRA VAUGHN MD [facility] ER DIZZINESS [id number] 04/06/2014 17:44:00 04/06/2014 20:17:00 DIS Emergency JOHANA RODRIGUEZ, DEBRA A [facility] ER DIFFICULTY BREATHING [id number] 03/31/2014 03:01:00 03/31/2014 03:36:00 DIS Emergency JOHANA RODRIGUEZ, DEBRA A [facility] ER DIFFICULTY BREATHING [id number] 01/28/2014 04:54:00 01/28/2014 06:01:00 DIS Emergency JOHANA RODRIGUEZ, DEBRA A [facility] ER ABDOMINAL PAIN [id number] 01/27/2014 10:14:00 01/27/2014 13:13:00 DIS Emergency TRISTEN TUCKER DO [facility] ER ABD PAIN [id number] 09/19/2013 04:03:00 09/19/2013 05:41:00 DIS Emergency DEBRA VAUGHN MD A [facility] ER NAUSEA,SIDE PAIN,NUMBNESS IN FACE,ARMS SHOULDERS [id number] 01/13/2013 14:21:00 01/13/2013 23:59:59 CLS Outpatient [id number] 07/05/2018 11:40:00 PEN Preadmit FARAZ DE LEON DO [facility] ENDO BLOOD IN STOOLS/GASTRITIS [id number] 05/11/2018 17:31:00 Document Registration [id number] 03/08/2016 11:55:00 Document Registration [id number] 12/01/2014 07:56:00 Document Registration [id number] 09/23/2011 02:25:00 Document Registration [id number] 09/22/2011 07:21:00 Document Registration [id number] 04/23/2017 08:08:00 Document Registration [id number] 03/18/2015 21:25:59 ACT Document Registration
--- NOTE | 2018-07-05 12:27 | Endoscopy Discharge Instruct ---
Endo Procedure/Findings Findings 1.: Gastritis, Cabrera's Esophagus 2.: Polyp 3.: Diverticulosis 4.: Internal Hemorrhoids Discharge Instructions - Activity: You might feel a little sleepy until tomorrow. This is due to the medicine you received to relax you. Until tomorrow, you should: NOT drive a car, operate machinery or power tools. NOT drink any alcoholic beverages. NOT make any important decisions or sign importortant papers. Do not return to work until tomorrow, unless otherwise instructed. Resume previous activities tomorrow. Diet: Start by taking liquids. If you tolerate liquids, advance to solid food. Make an appointment for 1 week. Notify Physician - If you experience excessive bleeding, unusual abdominal pain, fever, or chest pain, contact your doctor immediately. Follow-Up: - I have received and understand the above instructions and will call my doctor if I have any further questions. Patient Signature Date Nurse Signature Other (Relationship) FARAZ DE LEON DO Jul 05, 2018 12:27
[2018-07-05 13:00] VITALS: BP 138/89
[2018-07-05 13:40] VITALS: BP 139/83
--- NOTE | 2018-07-05 13:41 | Anesthesia-General Post-Op ---
MAC Patient Condition Mental Status/LOC: Same as Preop Cardiovascular: Satisfactory Nausea/Vomiting: Absent Respiratory: Satisfactory Pain: Controlled Complications: Absent Post Op Complications Complications None Follow Up Care/Instructions Patient Instructions None needed. Anesthesiology Discharge Order Discharge Order Patient is doing well, no complaints, stable vital signs, no apparent adverse anesthesia problems. No complications reported per nursing. EUGENE CONNOLLY CRNA Jul 05, 2018 13:41
[2018-07-05] MEDS ORDERED: ANTACID SUSP 30 ML UDC (MYLANTA) PO ONE (14:00)
[2018-07-05] MEDS ORDERED: LIDOCAINE 2% VISCOUS 15 ML UDC PO ONE (14:00)
[2018-07-05 14:15] VITALS: BP 139/83
--- NOTE | 2018-07-06 02:20 | OPERATIVE REPORT ---
DATE OF SERVICE: PREOPERATIVE DIAGNOSES: Gastritis and history of rectal bleed. POSTOPERATIVE DIAGNOSES: 1. Gastritis. 2. Questionable Cabrera's esophagus. 3. Colon polyps. 4. Diverticula. 5. Internal hemorrhoids. PROCEDURE: 1. EGD with biopsy. 2. Colonoscopy with snare polypectomy. SURGEON: Familia Dc DO. WATERSHED COORDINATOR: None. ANESTHESIA: IV sedation by the CIGARETTE VENDOR. SPECIMEN: Biopsy from the antrum as well as colon polyp, I believe from the transverse colon. BLOOD LOSS: Scant. FLUIDS: Per anesthesia. POSTOPERATIVE CONDITION: Stable. INDICATION FOR PROCEDURE: The patient is a 38-year-old male who had been complaining of some chronic gastritis as well as rectal bleeding and needed a workup. FINDINGS: The patient had pretty severe gastritis and also looked like Cabrera's esophagus, actually looked like there may have been some bleeding in the stomach, but could not tell whether this was possibly even , and had a large polyp in the colon as well as some large diverticula and some internal hemorrhoids. PROCEDURE NOTE: After informed consent was obtained, the patient was brought to the endoscopy suite, placed in the bed left lateral decubitus position. He was administered IV sedation by the CIGARETTE VENDOR, who then monitored his vital signs the entire time, heart rate, blood pressure and pulse ox and the scope was inserted down the mouth through the esophagus, and into the stomach, and in the stomach, looked like he had almost like old blood, but also could look like parts of chewed tobacco, pretty severe gastritis in the antrum and the body of the stomach, pushed in the duodenum, which looked fine. Pulled back into the antrum, took a biopsy of the antrum and then into the body, retroflexed and took another biopsy of the body, the stomach looked like it might be the lesser curvature and then pulled back into the esophagus. The patient had creeping up of the GE junction at the Z line, looked like some Cabrera's esophagus, took a picture of this and biopsied this area as well and then pulled the scope up, the rest of the esophagus looked fine and out of the mouth. Switched gloves and switched cameras and went to the other side, started the colonoscopy. Pushed the scope in, pushed into about [address] in, noted some diverticula, took picture of this and saw a large polyp in the transverse colon, elected to push all the way to the cecum. Took a picture of the appendiceal orifice, noted the ileocecal valve and then slowly withdrew the scope insufflating to look circumferentially at the durán, looking at the cecum, then up the ascending colon to the hepatic flexure, then down the transverse colon and in the transverse colon, saw this large polyp, did a snare polypectomy, had to suction up this polyp, pulled into the scope and then continuous suction while I pulled the scope all the way out to remove this polyp. Pushed the scope back into the transverse colon, could see where we took this polyp, where we removed the polyp from and then slowly withdrew down the transverse colon to the splenic flexure into the descending colon, then down in the sigmoid and finally into the rectum. Retroflexed the rectal vault, had some grade I to II internal hemorrhoids and then removed the scope. The patient tolerated the procedure. He was recovered in the endoscopy suite. Job ID: [id number] DocumentID: [id number] Dictated Date: 07/05/2018 17:13:47 Dry Kiln Operator Date: 07/06/2018 00:23:12 Dictated By: DO JASON YO
== END 2018-07-05 14:15 | disposition home or self-care (01) ==
LOC: ENDO 10:11
PROVIDERS: ATTEND Surgery
DX: D12.3 Benign neoplasm of transverse colon (principal); K57.30 Diverticulosis of large intestine without perforation or abscess without bleeding; K64.8 Other hemorrhoids; K29.70 Gastritis, unspecified, without bleeding; K21.9 Gastro-esophageal reflux disease without esophagitis; I10 Essential (primary) hypertension; J45.909 Unspecified asthma, uncomplicated; E11.40 Type 2 diabetes mellitus with diabetic neuropathy, unspecified; E66.01 Morbid (severe) obesity due to excess calories; Z68.42 Body mass index [BMI] 45.0-49.9, adult; Z79.4 Long term (current) use of insulin; Z79.899 Other long term (current) drug therapy
CPT/HCPCS: 82962; 88305

== ENCOUNTER 2018-08-01 03:43 | Emergency (ER) | payer MEDICARE, MEDICAID ==
[~2018-08-01] VITALS: Ht 177.8 cm; Wt 149.7 kg
--- NOTE | 2018-08-01 04:23 | ED General ---
General Stated Complaint: DIABETES ISSUES Source of Information: Patient, Old Records History of Present Illness Date Seen by Provider: Aug 01, 2018 Time Seen by Provider: 04:00 Initial Comments PT ARRIVES VIA POV FROM HOME PT STATES "DIABETIC STUFF" PT HAS NOT CHECKED HIS BLOOD SUGAR IN A LONG TIME--STATES "I LOST MY MONITOR" -- CLAIMS HE LOST IT "A COUPLE OF WEEKS AGO". STATES HE HAS BEEN TAKING HIS MEDICATION PT HAS LONG HISTORY OF UNCONTROLLED DM AND NON-COMPLIANCE PT STATES HE SAW PENELOPE MARTINEZ AT [facility] 3-4 DAYS AGO AND WAS DX WITH ESOPHAGITIS, AND WAS TOLD HE SHOULD BE ON A CLEAR LIQUID DIET X 7 DAYS PT STATES HE DRANK ONLY WATER FOR 2-3 DAYS, THEN YESTERDAY HE WOKE UP AND "FELT BAD" SO HE ATE AND DRANK NORMALLY--STATES HE HAD 'A COUPLE OF SANDWICHES", DRANK GATORADE, ATE GRAPES AND DRANK A COUPLE OF GLASSES OF MILK STATES HE DOES NOT FEEL BETTER STATES HE STILL FEELS "EXTREME TIREDNESS" "HOT AND COLD FLASHES" "NUMB AT POINTS " AND "SHARP HEADACHE" PCP:[facility], PENELOPE MARTINEZ Allergies and Home Medications Allergies Coded Allergies: sertraline (Verified Allergy, Severe, RASH, SWELLING, 01/20/16) "FELT LOOPY" bupropion (Verified Allergy, Unknown, "CAUSED ME TO BANG MY HEAD ON THE WALL", 01/20/16) buspirone (Verified Allergy, Unknown, THROAT SWELLED, 01/20/16) cephalexin (Verified Allergy, Unknown, HIVES, 01/20/16) codeine (Verified Allergy, Unknown, 01/20/16) Home Medications Cinnamon Bark 500 Mg Capsule, 1,000 MG PO DAILY, (Reported) TAKES 2 (500MG) CAPSULES Fluoxetine HCl 20 Mg Capsule, 20 MG PO DAILY, (Reported) TAKES IN ADDITION TO FLUOXETINE 40 MG DAILY FOR A TOTAL DOSE OF 60 MG Fluoxetine HCl 40 Mg Capsule, 40 MG PO DAILY, (Reported) TAKES IN ADDITION TO FLUOXETINE 20 MG DAILY FOR A TOTAL DOSE OF 60 MG Gabapentin 800 Mg Tablet, 800 MG PO TID, (Reported) Insulin Aspart 300 Units/3 Ml Solution, 60 UNITS SQ AC PRN for BLOOD SUGAR, ( Reported) Insulin Degludec 200 Unit/1 Ml Insuln.pen, 160 UNIT SQ HS, (Reported) Lisinopril 20 Mg Tablet, 20 MG PO DAILY, (Reported) Metformin HCl 500 Mg Tab.er.24h, 1,000 MG PO BID, (Reported) TAKES 2 (500 MG) TABLETS Multivitamin 1 Each Tablet, 1 TAB PO DAILY, (Reported) [place]-3/Dha/Epa/Fish Oil 1 Each Capsule, 1,000 MG PO BID, (Reported) Omeprazole 40 Mg Capsule.dr, 40 MG PO DAILY, (Reported) Testosterone Cypionate 200 Mg/1 Ml Vial, 200 MG IM monthly, (Reported) Patient Home Medication List Home Medication List Reviewed: Yes Review of Systems Review of Systems Constitutional: see HPI, chills, malaise, weakness EENTM: dental problems Respiratory: no symptoms reported; No cough Cardiovascular: no symptoms reported; No chest pain Gastrointestinal: no symptoms reported; No abdominal pain, No nausea, No vomiting Genitourinary: no symptoms reported Musculoskeletal: no symptoms reported Skin: no symptoms reported Psychiatric/Neurological: See HPI, Headache, Paresthesia; Denies Weakness Hematologic/Lymphatic: No Symptoms Reported Immunological/Allergic: no symptoms reported Past Azqdito-Inbvcs-Vmpowt Hx Patient Social History Alcohol Use: Denies Use Recreational Drug Use: No Drug of Choice: CANNIBUS Smoking Status: Never a Smoker 2nd Hand Smoke Exposure: No Recent Foreign Travel: No Contact w/Someone Who Travel: No Recent Hopitalizations: No Immunizations Up To Date Tetanus Booster (TDap): More than 5yrs PED Vaccines UTD: No Seasonal Allergies Seasonal Allergies: No Past Medical History Surgeries: Yes (HYPOGONADISM INFANT, ) Gallbladder, Testicular Respiratory: Yes Asthma Currently Using CPAP: No Currently Using BIPAP: No Cardiac: Yes Hypertension, Palpitations Neurological: Yes Neuropathy Reproductive Disorders: Yes (HYPOGONADISM sx as an infant) Sexually Transmitted Disease: No HIV/AIDS: No Genitourinary: No Gastrointestinal: Yes Gastroesophageal Reflux Musculoskeletal: No Endocrine: Yes (MORBID OBESITY) Diabetes, Insulin dep HEENT: No Loss of Vision: Denies Hearing Impairment: Denies Cancer: No Psychosocial: Yes ADD/ADHD, Anxiety, Depression Integumentary: No Blood Disorders: No Adverse Reaction/Blood Tranf: No Family Medical History Arthritis 19 MOTHER Congenital heart disease Diabetes mellitus 19 FATHER 19 MOTHER FH: brain aneurysm 19 FATHER (cause of - 09/13/2015) Glaucoma 19 FATHER Hypertension 19 FATHER 19 MOTHER Psychosocial problem 19 MOTHER (depression) No Pertinent Family Hx Physical Exam Vital Signs Vital Signs - First Documented 08/01/18 03:53 Temp 97.0 Pulse 92 Resp 20 B/P (MAP) 146/97 (113) Pulse Ox 97 O2 Delivery Room Air Capillary Refill : Height, Weight, BMI Height: 5'10.00" Weight: 334lbs. 0.0oz. 151.719794bi; 47.9 BMI Method:Stated General Appearance: No Apparent Distress, Obese, Other (SMILING, TALKATIVE, DOES NOT APPEAR TO BE IN ANY DISCOMFORT OR DISTRESS) Respiratory: Normal Breath Sounds, No Accessory Muscle Use, No Respiratory Distress Cardiovascular: Regular Rate, Rhythm, No Edema, No JVD, No Murmur, Normal Peripheral Pulses Gastrointestinal: Non Tender, Soft Back: No CVA Tenderness Extremity: Normal Capillary Refill, Normal Inspection, No Pedal Edema Neurologic/Psychiatric: Alert, Oriented x3, No Motor/Sensory Deficits, Normal Mood/Affect, blood tester fowl II-XII Norm as Tested Skin: Normal Color, Warm/Dry Progress/Results/Core Measures Suspected Sepsis SIRS Temperature: Pulse: Respiratory Rate: Laboratory Tests 08/01/18 04:15: White Blood Count 7.5 Blood Pressure / Mean: Laboratory Tests 08/01/18 04:15: Creatinine 0.94, Platelet Count 200, Total Bilirubin 0.5 Results/Orders Lab Results Laboratory Tests Test 08/01/18 03:58 08/01/18 04:15 08/01/18 05:15 Range/Units Glucometer 325 H 70-110 MG/DL White Blood Count 7.5 4.3-11.0 10^3/uL Red Blood Count 5.71 4.35-5.85 10^6/uL Hemoglobin 16.9 13.3-17.7 G/DL Hematocrit 46 40-54 % Mean Corpuscular Volume 81 80-99 FL Mean Corpuscular Hemoglobin 30 25-34 PG Mean Corpuscular Hemoglobin Concent 37 H 32-36 G/DL Red Cell Distribution Width 13.0 10.0-14.5 % Platelet Count 200 130-400 10^3/uL Mean Platelet Volume 11.4 H 7.4-10.4 FL Neutrophils (%) (Auto) 51 42-75 % Lymphocytes (%) (Auto) 37 12-44 % Monocytes (%) (Auto) 10 0-12 % Eosinophils (%) (Auto) 2 0-10 % Basophils (%) (Auto) 0 0-10 % Neutrophils # (Auto) 3.8 1.8-7.8 X 10^3 Lymphocytes # (Auto) 2.7 1.0-4.0 X 10^3 Monocytes # (Auto) 0.8 0.0-1.0 X 10^3 Eosinophils # (Auto) 0.2 0.0-0.3 10^3/uL Basophils # (Auto) 0.0 0.0-0.1 10^3/uL Urine Color YELLOW Urine Clarity CLEAR Urine pH 5 5-9 Urine Specific [place] 1.020 1.016-1.022 Urine Protein NEGATIVE NEGATIVE Urine Glucose (UA) 4+ H NEGATIVE Urine Ketones 2+ H NEGATIVE Urine Nitrite NEGATIVE NEGATIVE Urine Bilirubin NEGATIVE NEGATIVE Urine Urobilinogen NORMAL NORMAL MG/DL Urine Leukocyte Esterase NEGATIVE NEGATIVE Urine RBC (Auto) NEGATIVE NEGATIVE Urine RBC NONE /HPF Urine WBC NONE /HPF Urine Squamous Epithelial Cells 0-2 /HPF Urine Crystals NONE /LPF Urine Bacteria TRACE /HPF Urine Casts NONE /LPF Urine Mucus NEGATIVE /LPF Urine Culture Indicated NO Sodium Level 136 135-145 MMOL/L Potassium Level 4.1 3.6-5.0 MMOL/L Chloride Level 103 98-107 MMOL/L Carbon Dioxide Level 19 L 21-32 MMOL/L Anion Gap 14 5-14 MMOL/L Blood Urea Nitrogen 15 7-18 MG/DL Creatinine 0.94 0.60-1.30 MG/DL Estimat Glomerular Filtration Rate > 60 BUN/Creatinine Ratio 16 Glucose Level 344 H 70-105 MG/DL Calcium Level 10.2 H 8.5-10.1 MG/DL Corrected Calcium 9.9 8.5-10.1 MG/DL Magnesium Level 2.3 1.8-2.4 MG/DL Total Bilirubin 0.5 0.1-1.0 MG/DL Aspartate Amino Transf (AST/SGOT) 29 5-34 U/L Alanine Aminotransferase (ALT/SGPT) 58 H 0-55 U/L Alkaline Phosphatase 91 40-136 U/L Total Protein 7.5 6.4-8.2 GM/DL Albumin 4.4 3.2-4.5 GM/DL Amylase Level 89 25-125 U/L Lipase 37 8-78 U/L Blood Gas Puncture Site RIGHT BRACHIAL Blood Gas Patient Temperature 97.0 Arterial Blood pH 7.37 7.37-7.43 Arterial Blood Partial Pressure CO2 35 35-45 MMHG Arterial Blood Partial Pressure O2 99 H 79-93 MMHG Arterial Blood HCO3 20 L 23-27 MMOL/L Arterial Blood Total CO2 21.2 21.0-31.0 MMOL/L Arterial Blood Oxygen Saturation 98 94-100 % Arterial Blood Base Excess -4.5 L -2.5-2.5 MMOL/L Aroldo Test POSITIVE Blood Gas Ventilator Setting NO Blood Gas Inspired Oxygen NO My Orders Orders - TRISTEN TUCKER DO Accucheck Stat ONCE (08/01/18 04:11) Saline Lock/Iv-Start (08/01/18 04:11) Monitor-Rhythm Ecg Trace Only (08/01/18 04:11) Amylase (08/01/18 04:11) Cbc With Automated Diff (08/01/18 04:11) Comprehensive Metabolic Panel (08/01/18 04:11) Lipase (08/01/18 04:11) Magnesium (08/01/18 04:11) Ua Culture If Indicated (08/01/18 04:11) Saline Lock/Iv-Start (08/01/18 04:11) Saline Lock/Iv-Start (08/01/18 04:51) Ns Iv 1000 Ml (Sodium Chloride 0.9%) (08/01/18 04:51) Insulin (Regular) Human (Humulin R (Per (08/01/18 05:00) Arterial Blood Gas (08/01/18 04:58) Accucheck Stat ONCE (08/01/18 05:17) Arterial Blood Gas (08/01/18 05:15) Medications Given in ED Current Medications Medications Dose Ordered Sig/Nikia Route Start Time Stop Time Status Last Admin Dose Admin Insulin Human Regular 15 unit ONCE ONCE IV 08/01/18 05:00 08/01/18 05:01 UNV 08/01/18 05:00 15 UNIT Sodium Chloride 1,000 ml @ 0 mls/hr Q0M ONCE IV 08/01/18 04:51 08/01/18 04:52 UNV 08/01/18 04:59 0 MLS/HR Vital Signs/I&O 08/01/18 03:53 Temp 97.0 Pulse 92 Resp 20 B/P (MAP) 146/97 (113) Pulse Ox 97 O2 Delivery Room Air Capillary Refill : Progress Note : Progress Note UNEVENTFUL ER STAY REPEAT ACCUCHECK 268 Departure Impression Primary Impression: Uncontrolled diabetes mellitus Disposition: HOME, SELF-CARE Condition: Improved Departure-Patient Inst. Referrals: [facility] (PCP/Family) Primary Care Physician Patient Instructions: Carbohydrate Counting Diet, Diabetes Type 2 (DC) Add. Discharge Instructions: GET A GLUCOMETER AND CHECK YOUR BLOOD SUGAR 3 TIMES A DAY--BEFORE EACH MEAL-- AND KEEP DIARY TAKE YOUR MEDICATIONS PRESCRIBED FOLLOW UP WITH [facility] THIS WEEK FOR FURTHER CARE TRISTEN TUCKER DO Aug 01, 2018 04:23
[2018-08-01 04:30] LABS: BILIRUBIN,URINE NEGATIVE (NEGATIVE); CLARITY,URINE CLEAR; COLOR,URINE YELLOW; GLUCOSE, URINE (UA) 4+ (NEGATIVE); KETONES,URINE 2+ (NEGATIVE); LEUKOCYTE ESTERASE ,URINE NEGATIVE (NEGATIVE); NITRITE,URINE NEGATIVE (NEGATIVE); PH,URINE 5 (5-9); PROTEIN,URINE NEGATIVE (NEGATIVE); UROBILINOGEN,URINE NORMAL (NORMAL)
[2018-08-01 04:37] LABS: BASOPHILS % (AUTO) 0 % (0-10); EOSINOPHILS # (AUTO) 0.2 10^3/uL (0.0-0.3); EOSINOPHILS % (AUTO) 2 % (0-10); HEMATOCRIT 46 % (40-54); HEMOGLOBIN 16.9 G/DL (13.3-17.7); LYMPHOCYTES # (AUTO) 2.7 X 10^3 (1.0-4.0); LYMPHOCYTES % (AUTO) 37 % (12-44); MEAN CORPUSCULAR HEMOGLOBIN 30 PG (25-34); MEAN CORPUSCULAR HGB CONC 37 G/DL (32-36); MEAN CORPUSCULAR VOLUME 81 FL (80-99); MEAN PLATELET VOLUME 11.4 FL (7.4-10.4); MONOCYTES # (AUTO) 0.8 X 10^3 (0.0-1.0); MONOCYTES % (AUTO) 10 % (0-12); NEUTROPHILS # (AUTO) 3.8 X 10^3 (1.8-7.8); NEUTROPHILS % (AUTO) 51 % (42-75); PLATELET COUNT 200 10^3/uL (130-400); RED BLOOD COUNT 5.71 10^6/uL (4.35-5.85); WHITE BLOOD COUNT 7.5 10^3/uL (4.3-11.0)
[2018-08-01 04:49] LABS: ALANINE AMINOTRANSFERASE 58 U/L (0-55); ALBUMIN 4.4 GM/DL (3.2-4.5); ALKALINE PHOSPHATASE 91 U/L (40-136); AMYLASE 89 U/L (25-125); BILIRUBIN,TOTAL 0.5 MG/DL (0.1-1.0); BUN/CREATININE RATIO 16; CALCIUM 10.2 MG/DL (8.5-10.1); CARBON DIOXIDE 19 MMOL/L (21-32); CHLORIDE 103 MMOL/L (98-107); CREATININE SERUM 0.94 MG/DL (0.60-1.30); GFR ESTIMATED > 60; GLUCOSE 344 MG/DL (70-105); LIPASE 37 U/L (8-78); MAGNESIUM 2.3 MG/DL (1.8-2.4); POTASSIUM 4.1 MMOL/L (3.6-5.0); SODIUM 136 MMOL/L (135-145); TOTAL PROTEIN 7.5 GM/DL (6.4-8.2)
[2018-08-01] MEDS ORDERED: NS IV 1000 ML 1,000 ML IV ONE (04:51)
[2018-08-01 04:54] LABS: BACTERIA,URINE TRACE /HPF; SQUAMOUS EPITHELIAL CELL,UR 0-2 /HPF
[2018-08-01] MEDS ORDERED: NS IV 1000 ML 1,000 ML ONE (04:54)
[2018-08-01] MEDS ORDERED: inSUlin (REGULAR) HUMAN 1 UNIT/0.01 ML (CHARGE PER UNIT) ONE (04:56)
[2018-08-01] MEDS ORDERED: inSUlin (REGULAR) HUMAN 1 UNIT/0.01 ML (CHARGE PER UNIT) IV ONE (05:00)
[2018-08-01 05:23] LABS: ABG BASE EXCESS -4.5 MMOL/L (-2.5-2.5); ABG OXYGEN SATURATION 98 % (94-100); ABG PCO2 35 MMHG (35-45); ABG PH 7.37 (7.37-7.43); ABG PO2 99 MMHG (79-93); ABG TCO2 21.2 MMOL/L (21.0-31.0)
[2018-08-01 05:25] LABS: ALLENS TEST POSITIVE; INSPIRED O2 NO; VENTILATOR NO
[2018-08-01 05:53] VITALS: BP 148/90
== END 2018-08-01 05:55 | disposition home or self-care (01) ==
LOC: EDUNIT# 03:43 → ER 03:45
DX: E11.9 Type 2 diabetes mellitus 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 (principal); J45.909 Unspecified asthma, uncomplicated; I10 Essential (primary) hypertension; K21.9 Gastro-esophageal reflux disease without esophagitis; F90.9 Attention-deficit hyperactivity disorder, unspecified type; F41.9 Anxiety disorder, unspecified; F32.9 Major depressive disorder, single episode, unspecified; E66.01 Morbid (severe) obesity due to excess calories; Z91.14 Patient's other noncompliance with medication regimen; Z82.49 Family history of ischemic heart disease and other diseases of the circulatory system; Z68.42 Body mass index [BMI] 45.0-49.9, adult; Z87.19 Personal history of other diseases of the digestive system; Z88.8 Allergy status to other drugs, medicaments and biological substances; Z88.5 Allergy status to narcotic agent; Z79.4 Long term (current) use of insulin; Z79.52 Long term (current) use of systemic steroids; Z98.890 Other specified postprocedural states
CPT/HCPCS: 36415; 80053; 81000; 82150; 82805; 82962; 83690; 83735; 85025; 93041

== ENCOUNTER → 2018-11-09 | Emergency (ER) | payer MEDICARE, MEDICAID ==
[~2018-11-09] VITALS: Ht 180.3 cm; Wt 149.7 kg
[~2018-11-09] MED LIST changes: +GABA800T10 PO; -GABA800T2 PO; +IOHEXOL 350 MG/ML 150 ML (OMNIPAQUE 350) VIAL IV ONE; +KETOROLAC 30 MG/ML VIAL IVP ONE; +NS 100 ML (IVPB) BAG IV ONE; +NS IV 1000 ML 1,000 ML IV SCH; +ONDA4TAB11 PO; +ONDANSETRON 4 MG/2 ML (SDV) Z0FRAN IV PRN; +PIPERACILLIN/TAZOBACTAM (BULK) 4.5 GM in NS (IVPB) 100 ML IV ONE; +RECEIVED CONTRAST (Hold Metformin) IV SCH; +TEST1PAT13; -TEST1PAT7; +metroNIDAZOLE 500MG/100ML IVPB 100 ML IV ONE
--- NOTE | 2018-11-09 15:12 | ED Abdominal Pain ---
General Stated Complaint: PAIN IN ABDOMIN NAUSEA Source of Information: Patient Exam Limitations: No Limitations History of Present Illness Date Seen by Provider: Nov 09, 2018 Time Seen by Provider: 14:53 Initial Comments The patient presents to ER walking in under his own power with chief complaint of last couple days some increasingly worsening, episodic left upper quadrant abdominal pain. He's been having diarrhea with no blood in it. He's having nausea but no vomiting. He does have a history of diverticulitis. He's had a gallbladder surgery about 5 years ago. No other surgeries. He said he's had some subjective chills but no objective fever. Pains worse when he takes a deep breath in or when pushing on it. He is not really having any cough or shortness of breath. No chest pain. The pain does not radiate anywhere in his abdomen. No history of coronary disease. He's not taken anything for the pain today because of his nausea. He did drink some water just before coming in and a light lunch of blended vegetables shake at 11:00, 4 hours ago. In the last few weeks the patient was having quite a bit of pitting edema in his bilateral lower extremities so his doctor started him on some Lasix she's now up to 2 tablets in the morning one tablet in the afternoon and his edema is gone. Now he says he feels very dry. No history of kidney stones. Allergies and Home Medications Allergies Coded Allergies: sertraline (Verified Allergy, Severe, RASH, SWELLING, 01/20/16) "FELT LOOPY" bupropion (Verified Allergy, Unknown, "CAUSED ME TO BANG MY HEAD ON THE WALL", 01/20/16) buspirone (Verified Allergy, Unknown, THROAT SWELLED, 01/20/16) cephalexin (Verified Allergy, Unknown, HIVES, 01/20/16) codeine (Verified Allergy, Unknown, 01/20/16) Home Medications Cinnamon Bark 500 Mg Capsule, 1,000 MG PO DAILY, (Reported) TAKES 2 (500MG) CAPSULES Fluoxetine HCl 20 Mg Capsule, 20 MG PO DAILY, (Reported) TAKES IN ADDITION TO FLUOXETINE 40 MG DAILY FOR A TOTAL DOSE OF 60 MG Fluoxetine HCl 40 Mg Capsule, 40 MG PO DAILY, (Reported) TAKES IN ADDITION TO FLUOXETINE 20 MG DAILY FOR A TOTAL DOSE OF 60 MG Gabapentin 800 Mg Tablet, 800 MG PO TID, (Reported) Insulin Aspart 300 Units/3 Ml Solution, 60 UNITS SQ AC PRN for BLOOD SUGAR, ( Reported) Insulin Degludec 200 Unit/1 Ml Insuln.pen, 160 UNIT SQ HS, (Reported) Lisinopril 20 Mg Tablet, 20 MG PO DAILY, (Reported) Metformin HCl 500 Mg Tab.er.24h, 1,000 MG PO BID, (Reported) TAKES 2 (500 MG) TABLETS Multivitamin 1 Each Tablet, 1 TAB PO DAILY, (Reported) [place]-3/Dha/Epa/Fish Oil 1 Each Capsule, 1,000 MG PO BID, (Reported) Omeprazole 40 Mg Capsule.dr, 40 MG PO DAILY, (Reported) Testosterone Cypionate 200 Mg/1 Ml Vial, 200 MG IM monthly, (Reported) Patient Home Medication List Home Medication List Reviewed: Yes Review of Systems Review of Systems Constitutional: chills; No diaphoresis; fever (subjective), malaise EENTM: No Blurred Vision, No Double Vision Respiratory: Denies Cough, Denies Shortness of Air Cardiovascular: Edema (improved) Gastrointestinal: Denies Abdomen Distended; Abdominal Pain; Denies Constipated ; Diarrhea, Nausea, Poor Appetite, Poor Fluid Intake; Denies Vomiting Genitourinary: Denies Burning, Denies Discharge Musculoskeletal: No back pain, No joint pain Skin: No pruritus, No rash Psychiatric/Neurological: Denies Headache, Denies Numbness Past Aqagvby-Lkpcys-Acrbir Hx Patient Social History Alcohol Use: Denies Use Recreational Drug Use: Yes Drug of Choice: CANNIBUS 2nd Hand Smoke Exposure: No Recent Foreign Travel: No Contact w/Someone Who Travel: No Recent Hopitalizations: No Immunizations Up To Date Tetanus Booster (TDap): More than 5yrs PED Vaccines UTD: No Seasonal Allergies Seasonal Allergies: No Past Medical History Surgeries: Yes (HYPOGONADISM INFANT, ) Gallbladder, Testicular Respiratory: Yes Asthma Currently Using CPAP: No Currently Using BIPAP: No Cardiac: Yes Hypertension, Palpitations Neurological: Yes Neuropathy Reproductive Disorders: Yes (HYPOGONADISM sx as an ) Sexually Transmitted Disease: No HIV/AIDS: No Genitourinary: No Gastrointestinal: Yes (blood in stools) Gastroesophageal Reflux Musculoskeletal: No Endocrine: Yes (MORBID OBESITY) Diabetes, Insulin dep HEENT: No Loss of Vision: Denies Hearing Impairment: Denies Cancer: No Psychosocial: Yes ADD/ADHD, Anxiety, Depression Integumentary: No Blood Disorders: No Adverse Reaction/Blood Tranf: No Family Medical History Arthritis 19 MOTHER Congenital heart disease Diabetes mellitus 19 FATHER 19 MOTHER FH: brain aneurysm 19 FATHER (cause of - 09/13/2015) Glaucoma 19 FATHER Hypertension 19 FATHER 19 MOTHER Psychosocial problem 19 MOTHER (depression) No Pertinent Family Hx Physical Exam Vital Signs Vital Signs - First Documented 11/09/18 15:54 Temp 97.6 Pulse 116 Resp 18 B/P (MAP) 133/100 (111) Capillary Refill : Height/Weight/BMI Height: 5'10.00" Weight: 330lbs. 0.0oz. 149.553604mb; 47.9 BMI Method:Stated General Appearance: mild distress, obese HEENT: PERRL/EOMI, pharynx normal (oropharynx is dry) Respiratory: chest non-tender, lungs clear, normal breath sounds, no respiratory distress, no accessory muscle use Cardiovascular: normal peripheral pulses, regular rate, rhythm, no edema, no murmur Peripheral Pulses: 2+ Dorsalis Pedis (R), 2+ Left Dors-Pedis (L) Gastrointestinal: normal bowel sounds, soft, no organomegaly, tenderness (left upper quadrant and left lower quadrant) Extremities: normal range of motion, non-tender, normal inspection, no pedal edema, no calf tenderness, normal capillary refill Neurologic/Psychiatric: alert, normal mood/affect, oriented x 3 Skin: normal color, warm/dry Focused Exam Lactate Level 11/09/18 15:20: Lactic Acid Level 2.61*H 11/09/18 17:25: Lactic Acid Level Laboratory Tests Test 11/09/18 15:20 11/09/18 17:25 Lactic Acid Level 2.61 MMOL/L (0.50-2.00) *H Progress/Results/Core Measures Results/Orders Lab Results Laboratory Tests Test 11/09/18 15:20 11/09/18 15:40 11/09/18 17:25 Range/Units White Blood Count 7.9 4.3-11.0 10^3/uL Red Blood Count 5.67 4.35-5.85 10^6/uL Hemoglobin 16.7 13.3-17.7 G/DL Hematocrit 47 40-54 % Mean Corpuscular Volume 83 80-99 FL Mean Corpuscular Hemoglobin 30 25-34 PG Mean Corpuscular Hemoglobin Concent 36 32-36 G/DL Red Cell Distribution Width 13.2 10.0-14.5 % Platelet Count 206 130-400 10^3/uL Mean Platelet Volume 11.5 H 7.4-10.4 FL Neutrophils (%) (Auto) 55 42-75 % Lymphocytes (%) (Auto) 35 12-44 % Monocytes (%) (Auto) 9 0-12 % Eosinophils (%) (Auto) 1 0-10 % Basophils (%) (Auto) 0 0-10 % Neutrophils # (Auto) 4.4 1.8-7.8 X 10^3 Lymphocytes # (Auto) 2.8 1.0-4.0 X 10^3 Monocytes # (Auto) 0.7 0.0-1.0 X 10^3 Eosinophils # (Auto) 0.1 0.0-0.3 10^3/uL Basophils # (Auto) 0.0 0.0-0.1 10^3/uL Urine Color YELLOW Urine Clarity CLEAR Urine pH 5 5-9 Urine Specific [place] 1.025 H 1.016-1.022 Urine Protein 1+ H NEGATIVE Urine Glucose (UA) 4+ H NEGATIVE Urine Ketones 2+ H NEGATIVE Urine Nitrite NEGATIVE NEGATIVE Urine Bilirubin NEGATIVE NEGATIVE Urine Urobilinogen NORMAL NORMAL MG/DL Urine Leukocyte Esterase NEGATIVE NEGATIVE Urine RBC (Auto) NEGATIVE NEGATIVE Urine RBC NONE /HPF Urine WBC RARE /HPF Urine Crystals NONE /LPF Urine Bacteria NEGATIVE /HPF Urine Casts NONE /LPF Urine Mucus NEGATIVE /LPF Urine Yeast FEW H /HPF Urine Culture Indicated NO Sodium Level 135 135-145 MMOL/L Potassium Level 4.0 3.6-5.0 MMOL/L Chloride Level 101 98-107 MMOL/L Carbon Dioxide Level 22 21-32 MMOL/L Anion Gap 12 5-14 MMOL/L Blood Urea Nitrogen 22 H 7-18 MG/DL Creatinine 0.95 0.60-1.30 MG/DL Estimat Glomerular Filtration Rate > 60 BUN/Creatinine Ratio 23 Glucose Level 279 H 70-105 MG/DL Lactic Acid Level 2.61 *H 0.50-2.00 MMOL/L Calcium Level 10.1 8.5-10.1 MG/DL Corrected Calcium 9.8 8.5-10.1 MG/DL Total Bilirubin 0.7 0.1-1.0 MG/DL Aspartate Amino Transf (AST/SGOT) 35 H 5-34 U/L Alanine Aminotransferase (ALT/SGPT) 55 0-55 U/L Alkaline Phosphatase 81 40-136 U/L Troponin I < 0.028 <0.028 NG/ML Total Protein 7.6 6.4-8.2 GM/DL Albumin 4.4 3.2-4.5 GM/DL Lipase 40 8-78 U/L Prothrombin Time 12.2 12.2-14.7 SEC INR Comment 0.9 0.8-1.4 Activated Partial Thromboplast Time 29 24-35 SEC Micro Results Microbiology 11/09/18 Influenza Types A,B Antigen ([facility]) - Final, Complete My Orders Orders - DIANA RUIZ Cbc With Automated Diff (11/09/18 15:00) Comprehensive Metabolic Panel (11/09/18 15:00) Blood Culture (11/09/18 15:00) Sputum Culture (11/09/18 15:00) Urinalysis (11/09/18 15:00) Urine Culture (11/09/18 15:00) Protime With Inr (11/09/18 15:00) Partial Thromboplastin Time (11/09/18 15:00) Chest 1 View, Ap/Pa Only (11/09/18 15:00) Saline Lock/Iv-Start (11/09/18 15:00) Saline Lock/Iv-Start (11/09/18 15:00) Ekg Tracing (11/09/18 15:00) Troponin I (11/09/18 15:00) Vital Signs Adult Sepsis Patie Q15M (11/09/18 15:00) Ondansetron Injection (Zofran Injectio (11/09/18 15:00) O2 (11/09/18 15:00) Remove Rings In Anticipation O (11/09/18 15:00) Lactic Acid Analyzer (11/09/18 15:00) Influenza A And B Antigens (11/09/18 15:00) Ns Iv 1000 Ml (Sodium Chloride 0.9%) (11/09/18 15:00) Metronidazole 500mg/100ml Ivpb (Flagyl 5 (11/09/18 15:00) Saline Lock/Iv-Start (11/09/18 15:00) Ns Iv 1000 Ml (Sodium Chloride 0.9%) (11/09/18 15:00) Ketorolac Injection (Toradol Injection) (11/09/18 15:00) Piperacillin/Tazobactam (Bulk) (Zosyn In (11/09/18 15:00) Ct Abdomen/Pelvis W (11/09/18 16:02) Iohexol Injection (Omnipaque 350 Mg/Ml 1 (11/09/18 16:15) Contrast Received (Contrast Received) (11/09/18 16:15) Ns (Ivpb) (Sodium Chloride 0.9% Ivpb Bag (11/09/18 16:15) Lipase (11/09/18 17:24) Medications Given in ED Current Medications Medications Dose Ordered Sig/Nikia Route Start Time Stop Time Status Last Admin Dose Admin Iohexol 150 ml ONCE ONCE IV 11/09/18 16:15 11/09/18 16:16 DC 11/09/18 17:03 150 ML Ketorolac Tromethamine 15 mg ONCE ONCE IVP 11/09/18 15:00 11/09/18 15:07 DC 11/09/18 15:43 15 MG Ondansetron HCl 4 mg PRN PRN IV 11/09/18 15:00 11/09/18 15:44 DC 11/09/18 15:40 4 MG Piperacillin Sod/ Tazobactam Sod 4.5 gm/Sodium Chloride 120 ml @ 240 mls/hr ONCE ONCE IV 11/09/18 15:00 11/09/18 15:29 DC 11/09/18 15:45 240 MLS/HR Sodium Chloride 100 ml ONCE ONCE IV 11/09/18 16:15 11/09/18 16:16 DC 11/09/18 17:03 100 ML Vital Signs/I&O 11/09/18 15:54 Temp 97.6 Pulse 116 Resp 18 B/P (MAP) 133/100 (111) Progress Progress Note #1: Time: 15:14 Progress Note Patient has some left-sided abdominal pain and tenderness. Be consistent with diverticulitis and started having diarrhea. Could be gastritis colitis. We'll get an influenza swab do a septic workup as he is tachycardic in the 1 teens. He is afebrile. Giving him a low-dose Toradol and a bolus of fluids based on an ideal body weight of 232#. He has a Keflex allergy but has tolerated Zosyn so we 'll use that. We'll check some urine and give him some Zofran. Slight possibility of an atypical chest pain and a person with risk factors but no coronary disease so we'll get a troponin and EKG. Progress Note #2: Time: 17:49 Progress Note Patient's feeling somewhat better. We'll have him stop the Lasix until he sees his primary care doctor either later this week or early next week. He has Tylenol Motrin at home. He can get some Imodium and will send a prescription for Zofran to the pharmacy. We'll also encourage him to drink sports drinks that are sugar-free. Brat diet. I suspect that his lactate being elevated we will have resolved after the IV fluids and his vitals looked much better now. He is no longer tachycardic as blood pressure is 130/90. We have given him strict return precautions. We have offered observation bed he wanted to trial outpatient therapy first. Initial ECG Impression Date: Nov 09, 2018 Initial ECG Impression Time: 16:08 Initial ECG Rate: 106 Initial ECG Rhythm: Normal Sinus Initial ECG Intervals: Normal Initial ECG Impression: Normal, Nonspecific Changes Comment Sinus tachycardia without ST elevation or depression. Diagnostic Imaging Diagonstic Imaging: Xray Plain Films/CT/US/NM/MRI: chest (1v) Comments NAME: JOHN CHAVEZ [facility] REC#: [id number] PT STATUS: REG ER : 1980 PHYSICIAN: DIANA RUIZ MD ADMIT DATE: 11/09/18/ER Draft Date of Exam:11/09/18 CHEST 1 VIEW, AP/PA ONLY INDICATION: Left upper quadrant pain with nausea and diarrhea. Comparison made with prior examination from 02/05/2018. FINDINGS: The heart size, mediastinal configuration, and pulmonary vascularity are within normal limits. There is no pleural effusion, pneumothorax, or pneumonia. The osseous structures are unremarkable. IMPRESSION: No acute cardiopulmonary abnormality. Dictated on workstation # [id number] Dict: 11/09/18 1732 Trans: 11/09/18 1735 [id number] Interpreted by: OMAR IBARRA MD Electronically signed by: Reviewed: Reviewed by Me Diagonstic Imaging: CT (with contrast) Plain Films/CT/US/NM/MRI: abdomen, pelvis Comments NAME: JOHN CHAVEZ [facility] REC#: [id number] PT STATUS: REG ER : 1980 PHYSICIAN: DIANA RUIZ MD ADMIT DATE: 11/09/18/ER Draft Date of Exam:11/09/18 CT ABDOMEN/PELVIS W PROCEDURE: CT abdomen and pelvis with contrast. TECHNIQUE: Multiple contiguous axial images were obtained through the abdomen and pelvis after administration of intravenous contrast. INDICATION: Left upper quadrant pain with nausea and diarrhea. Comparison made with prior examination from 05/11/2018. FINDINGS: The lung bases are clear. There is some fatty infiltration of the liver. There is no biliary ductal dilatation. Spleen is normal. The pancreas and adrenal glands are unremarkable. Kidneys are normal in appearance. The aorta is nonaneurysmal. Bowel gas pattern is nonspecific. There is no free air. There is no ascites. There are no focal inflammatory changes. There appears to be some mild diverticular disease. There are mild degenerative changes in the spine. IMPRESSION: Fatty infiltration of the liver. Diverticular disease without evidence of diverticulitis. Mild degenerative changes in the spine. No other acute abnormality in the abdomen or pelvis. Dictated on workstation # [id number] Dict: 11/09/18 1723 Trans: 11/09/18 1740 [id number] Interpreted by: OMAR IBARRA MD Electronically signed by: Reviewed: Reviewed by Me Departure Impression Primary Impression: Gastroenteritis and colitis, viral Additional Impressions: Moderate dehydration Loop diuretic causing adverse effect in therapeutic use Qualified Codes: T50.1X5A - Adverse effect of loop [high-ceiling] diuretics, initial encounter Disposition: 01 HOME, SELF-CARE Condition: Improved Departure-Patient Inst. Decision time for Depature: 17:51 Referrals: [facility] (PCP/Family) Primary Care Physician Patient Instructions: Viral Gastroenteritis, Adult (DC) Add. Discharge Instructions: Drink lots of fluids especially things like sugar-free sports drinks mixed 50- 50 with water. Start with a clear liquid diet and work your way up to a bland non-spicy diet of foods such as bananas, rice, applesauce and toast. If you have nausea use the Zofran 1 tablet every 6 hours as needed. If you have diarrhea persists for more than 2 days then you can start the Imodium 2 tablets first followed by one tablet every 4 hours as needed until the stools are no longer watery. Call your primary doctor and request an appointment either by end of this week or early next week for reevaluation. Stop the Lasix until your primary doctor restarts it If you having discomfort use 1000 g Tylenol or 800 mg ibuprofen every 8 hours each as well as heating pads. Return to the nearest ER if you begin to experience high fevers, intense abdominal pain that you cannot control, uncontrollable nausea vomiting or you feel that you're getting worse. Scripts Ondansetron (Ondansetron Odt) 4 Mg Tab.rapdis 4 MG PO Q6H PRN for NAUSEA/VOMITING, #15 TAB 0 Refills Prov: DIANA RUIZ 11/09/18 Copy Copies To 1: KRISSY HALL DO DIANA RUIZ Nov 09, 2018 15:12
[2018-11-09 15:34] LABS: BASOPHILS % (AUTO) 0 % (0-10); BILIRUBIN,URINE NEGATIVE (NEGATIVE); CLARITY,URINE CLEAR; COLOR,URINE YELLOW; EOSINOPHILS # (AUTO) 0.1 10^3/uL (0.0-0.3); EOSINOPHILS % (AUTO) 1 % (0-10); GLUCOSE, URINE (UA) 4+ (NEGATIVE); HEMATOCRIT 47 % (40-54); HEMOGLOBIN 16.7 G/DL (13.3-17.7); KETONES,URINE 2+ (NEGATIVE); LEUKOCYTE ESTERASE ,URINE NEGATIVE (NEGATIVE); LYMPHOCYTES # (AUTO) 2.8 X 10^3 (1.0-4.0); LYMPHOCYTES % (AUTO) 35 % (12-44); MEAN CORPUSCULAR HEMOGLOBIN 30 PG (25-34); MEAN CORPUSCULAR HGB CONC 36 G/DL (32-36); MEAN CORPUSCULAR VOLUME 83 FL (80-99); MEAN PLATELET VOLUME 11.5 FL (7.4-10.4); MONOCYTES # (AUTO) 0.7 X 10^3 (0.0-1.0); MONOCYTES % (AUTO) 9 % (0-12); NEUTROPHILS # (AUTO) 4.4 X 10^3 (1.8-7.8); NEUTROPHILS % (AUTO) 55 % (42-75); NITRITE,URINE NEGATIVE (NEGATIVE); PH,URINE 5 (5-9); PLATELET COUNT 206 10^3/uL (130-400); PROTEIN,URINE 1+ (NEGATIVE); RED CELL DISTRIBUTION WIDTH 13.2 % (10.0-14.5); UROBILINOGEN,URINE NORMAL (NORMAL); WHITE BLOOD COUNT 7.9 10^3/uL (4.3-11.0)
[2018-11-09 15:49] LABS: BACTERIA,URINE NEGATIVE /HPF; WBC,URINE RARE /HPF; YEAST,URINE FEW /HPF
[2018-11-09 15:57] LABS: ALANINE AMINOTRANSFERASE 55 U/L (0-55); ALBUMIN 4.4 GM/DL (3.2-4.5); ALKALINE PHOSPHATASE 81 U/L (40-136); BILIRUBIN,TOTAL 0.7 MG/DL (0.1-1.0); BUN/CREATININE RATIO 23; CALCIUM 10.1 MG/DL (8.5-10.1); CARBON DIOXIDE 22 MMOL/L (21-32); CHLORIDE 101 MMOL/L (98-107); CREATININE SERUM 0.95 MG/DL (0.60-1.30); GFR ESTIMATED > 60; GLUCOSE 279 MG/DL (70-105); SODIUM 135 MMOL/L (135-145); TOTAL PROTEIN 7.6 GM/DL (6.4-8.2)
[2018-11-09 16:04] LABS: INR 0.9 (0.8-1.4); PROTHROMBIN TIME PATIENT 12.2 SEC (12.2-14.7)
--- NOTE | 2018-11-09 17:35 | Diagnostic Imaging Report ---
INDICATION: Left upper quadrant pain with nausea and diarrhea. Comparison made with prior examination from 02/05/2018. FINDINGS: The heart size, mediastinal configuration, and pulmonary vascularity are within normal limits. There is no pleural effusion, pneumothorax, or pneumonia. The osseous structures are unremarkable. IMPRESSION: No acute cardiopulmonary abnormality. Dictated by: Dictated on workstation # [id number]
--- NOTE | 2018-11-09 17:41 | Diagnostic Imaging Report ---
PROCEDURE: CT abdomen and pelvis with contrast. TECHNIQUE: Multiple contiguous axial images were obtained through the abdomen and pelvis after administration of intravenous contrast. INDICATION: Left upper quadrant pain with nausea and diarrhea. Comparison made with prior examination from 05/11/2018. FINDINGS: The lung bases are clear. There is some fatty infiltration of the liver. There is no biliary ductal dilatation. Spleen is normal. The pancreas and adrenal glands are unremarkable. Kidneys are normal in appearance. The aorta is nonaneurysmal. Bowel gas pattern is nonspecific. There is no free air. There is no ascites. There are no focal inflammatory changes. There appears to be some mild diverticular disease. There are mild degenerative changes in the spine. IMPRESSION: Fatty infiltration of the liver. Diverticular disease without evidence of diverticulitis. Mild degenerative changes in the spine. No other acute abnormality in the abdomen or pelvis. Dictated by: Dictated on workstation # [id number]
[2018-11-09 17:54] VITALS: BP 135/85
== END | disposition home or self-care (01) ==
LOC: EDUNIT# 14:46 → ER 14:52
DX: A08.4 Viral intestinal infection, unspecified (principal); E86.0 Dehydration; T50.1X5A Adverse effect of loop [high-ceiling] diuretics, initial encounter; J45.909 Unspecified asthma, uncomplicated; I10 Essential (primary) hypertension; K21.9 Gastro-esophageal reflux disease without esophagitis; E66.01 Morbid (severe) obesity due to excess calories; E11.40 Type 2 diabetes mellitus with diabetic neuropathy, unspecified; F98.8 Other specified behavioral and emotional disorders with onset usually occurring in childhood and adolescence; F90.9 Attention-deficit hyperactivity disorder, unspecified type; F41.9 Anxiety disorder, unspecified; F32.9 Major depressive disorder, single episode, unspecified; F12.10 Cannabis abuse, uncomplicated; Z88.8 Allergy status to other drugs, medicaments and biological substances; Z79.4 Long term (current) use of insulin; Z82.49 Family history of ischemic heart disease and other diseases of the circulatory system; Z68.42 Body mass index [BMI] 45.0-49.9, adult; Z87.448 Personal history of other diseases of urinary system
CPT/HCPCS: 36415; 71045; 74177; 80053; 81000; 83605; 83690; 84484; 85025; 85610; 85730; 87040; 87088; 87804

== ENCOUNTER 2019-05-14 00:56 | Emergency (ER) | payer MEDICARE, MEDICAID ==
[~2019-05-14] VITALS: Ht 177.8 cm; Wt 145.1 kg
[~2019-05-14 00:56] MED LIST changes: -IOHEXOL 350 MG/ML 150 ML (OMNIPAQUE 350) VIAL IV ONE; -KETOROLAC 30 MG/ML VIAL IVP ONE; -NS 100 ML (IVPB) BAG IV ONE; -NS IV 1000 ML 1,000 ML IV SCH; -ONDANSETRON 4 MG/2 ML (SDV) Z0FRAN IV PRN; -PIPERACILLIN/TAZOBACTAM (BULK) 4.5 GM in NS (IVPB) 100 ML IV ONE; -RECEIVED CONTRAST (Hold Metformin) IV SCH; -metroNIDAZOLE 500MG/100ML IVPB 100 ML IV ONE
[2019-05-14] MEDS ORDERED: NS IV 1000 ML 1,000 ML IV ONE (01:15)
[2019-05-14 01:21] LABS: BASOPHILS % (AUTO) 0 % (0-10); EOSINOPHILS # (AUTO) 0.1 10^3/uL (0.0-0.3); EOSINOPHILS % (AUTO) 1 % (0-10); HEMATOCRIT 44 % (40-54); HEMOGLOBIN 15.9 G/DL (13.3-17.7); LYMPHOCYTES # (AUTO) 2.1 X 10^3 (1.0-4.0); LYMPHOCYTES % (AUTO) 28 % (12-44); MEAN CORPUSCULAR HEMOGLOBIN 30 PG (25-34); MEAN CORPUSCULAR HGB CONC 37 G/DL (32-36); MEAN CORPUSCULAR VOLUME 82 FL (80-99); MEAN PLATELET VOLUME 11.3 FL (7.4-10.4); MONOCYTES # (AUTO) 0.6 X 10^3 (0.0-1.0); MONOCYTES % (AUTO) 8 % (0-12); NEUTROPHILS # (AUTO) 4.5 X 10^3 (1.8-7.8); NEUTROPHILS % (AUTO) 62 % (42-75); PLATELET COUNT 211 10^3/uL (130-400); RED CELL DISTRIBUTION WIDTH 13.1 % (10.0-14.5); WHITE BLOOD COUNT 7.2 10^3/uL (4.3-11.0)
[2019-05-14 01:34] LABS: BILIRUBIN,URINE NEGATIVE (NEGATIVE); CLARITY,URINE CLEAR; COLOR,URINE YELLOW; GLUCOSE, URINE (UA) 4+ (NEGATIVE); KETONES,URINE 3+ (NEGATIVE); LEUKOCYTE ESTERASE ,URINE NEGATIVE (NEGATIVE); NITRITE,URINE NEGATIVE (NEGATIVE); PH,URINE 5 (5-9); PROTEIN,URINE NEGATIVE (NEGATIVE); UROBILINOGEN,URINE NORMAL (NORMAL)
[2019-05-14 01:37] LABS: ALANINE AMINOTRANSFERASE 56 U/L (0-55); ALBUMIN 4.1 GM/DL (3.2-4.5); ALKALINE PHOSPHATASE 101 U/L (40-136); BILIRUBIN,TOTAL 0.5 MG/DL (0.1-1.0); BUN/CREATININE RATIO 16; CARBON DIOXIDE 19 MMOL/L (21-32); CHLORIDE 99 MMOL/L (98-107); CREATININE SERUM 1.02 MG/DL (0.60-1.30); GFR ESTIMATED > 60; GLUCOSE 339 MG/DL (70-105); POTASSIUM 4.2 MMOL/L (3.6-5.0); SODIUM 134 MMOL/L (135-145); TOTAL PROTEIN 7.3 GM/DL (6.4-8.2)
[2019-05-14 01:38] LABS: BACTERIA,URINE NEGATIVE /HPF; SQUAMOUS EPITHELIAL CELL,UR 0-2 /HPF
--- NOTE | 2019-05-14 01:39 | ED Abdominal Pain ---
General Chief Complaint: Abdominal/GI Problems Stated Complaint: ABD PAIN Nursing Triage Note: PT TO ED W/ C/O CHRONIC ABD PAIN X3 WKS, WORSE TONIGHT. REPORTS HAS SEEN PCP ET [facility] FOR C/O ET HAS BEEN PRESCRIBED ABX FOR DIVERTICULITIS. DENIES N/V/D, CONSTIPATION, BLOODY STOOLS ET FEVER TO THIS RN. PT REPORTS DID HAVE NAUSEA X2 WKS AGO. PT ALSO REPORTS LAST ORAL INTAKE EARLIER THIS EVENING OF HOT DOGS ET A SIXLET PRIOR TO ABD PAIN ONSET THIS EVENING. Sepsis Screen: No Definite Risk Source of Information: Patient Exam Limitations: No Limitations (BLAYNE MURGUIA) History of Present Illness Date Seen by Provider: May 14, 2019 Time Seen by Provider: 01:10 Initial Comments Pt presents with lower abdominal pain that started 2 weeks ago but has become more intense today. He states it is pretty constant with intermittent increases in intensity that radiates to his lower back. He was diagnosed with d iverticulitis a year ago and has been taking some herbal anti inflammatory pills along with some antibiotics his PCP prescribed him. He denies any diarrhea and vomiting, but has had a little nausea over the past few weeks. He has a history of diabetes to which he states he does not check his sugars regularly or take his medications consistently. He has a history of hypertension as well for which he takes lisinopril currently. Timing/Duration: 12-24 Hours, Getting Worse, Intermittent Severity/Quality: Moderate, Sharp, Stabbing Location: Generalized Abdomen, Suprapubic Radiation: Back Activities at Onset: None Modifying Factors: Worsens With Lying down, Worsens With Movement Associated Symptoms: Back Pain (BLAYNE MURGUIA) Initial Comments Here with abdominal pain that is central and radiates to his back. He is currently under treatment for diverticulitis. Further discussion with him reveals that he is supposed to be on omeprazole for a Cabrera's esophagus and has not really been taking that recently. Also has not been controlling his blood sugars very well. Timing/Duration: 1 Week, Getting Worse, Intermittent Severity/Quality: Moderate, Aching, Sharp Location: Generalized Abdomen Radiation: Back Associated Symptoms: Back Pain; No Fever/Chills (LUPE BARCLAY MD) Allergies and Home Medications Allergies Coded Allergies: sertraline (Verified Allergy, Severe, RASH, SWELLING, 01/20/16) "FELT LOOPY" bupropion (Verified Allergy, Unknown, "CAUSED ME TO BANG MY HEAD ON THE WALL", 01/20/16) buspirone (Verified Allergy, Unknown, THROAT SWELLED, 01/20/16) cephalexin (Verified Allergy, Unknown, HIVES, 01/20/16) codeine (Verified Allergy, Unknown, 01/20/16) Home Medications Cinnamon Bark 500 Mg Capsule, 1,000 MG PO DAILY, (Reported) TAKES 2 (500MG) CAPSULES Fluoxetine HCl 20 Mg Capsule, 20 MG PO DAILY, (Reported) TAKES IN ADDITION TO FLUOXETINE 40 MG DAILY FOR A TOTAL DOSE OF 60 MG Fluoxetine HCl 40 Mg Capsule, 40 MG PO DAILY, (Reported) TAKES IN ADDITION TO FLUOXETINE 20 MG DAILY FOR A TOTAL DOSE OF 60 MG Gabapentin 800 Mg Tablet, 800 MG PO TID, (Reported) Insulin Aspart 300 Units/3 Ml Solution, 60 UNITS SQ AC PRN for BLOOD SUGAR, (Reported) Insulin Degludec 200 Unit/1 Ml Insuln.pen, 160 UNIT SQ HS, (Reported) Lisinopril 20 Mg Tablet, 20 MG PO DAILY, (Reported) Metformin HCl 500 Mg Tab.er.24h, 1,000 MG PO BID, (Reported) TAKES 2 (500 MG) TABLETS Multivitamin 1 Each Tablet, 1 TAB PO DAILY, (Reported) [place]-3/Dha/Epa/Fish Oil 1 Each Capsule, 1,000 MG PO BID, (Reported) Omeprazole 40 Mg Capsule.dr, 40 MG PO DAILY, (Reported) Ondansetron 4 Mg Tab.rapdis, 4 MG PO Q6H PRN for NAUSEA/VOMITING Prescribed by: DIANA RUIZ on 11/09/18 7613 Testosterone Cypionate 200 Mg/1 Ml Vial, 200 MG IM monthly, (Reported) Patient Home Medication List Home Medication List Reviewed: Yes (LUPE BARCLAY MD) Review of Systems Review of Systems Constitutional: No chills, No fever EENTM: No Symptoms Reported Respiratory: No Symptoms Reported Cardiovascular: No Symptoms Reported Gastrointestinal: Abdominal Pain; Denies Diarrhea; Nausea (Intermittent); Denies Rectal Bleeding, Denies Vomiting Genitourinary: Denies Burning, Denies Pain Musculoskeletal: no symptoms reported Skin: no symptoms reported Psychiatric/Neurological: No Symptoms Reported Endocrine: No Symptoms Reported (BLAYNE MURGUIA) Constitutional: No chills, No fever Respiratory: No Symptoms Reported Cardiovascular: No Symptoms Reported Gastrointestinal: Abdominal Pain, Nausea (Intermittent) Musculoskeletal: back pain; No neck pain (LUPE BARCLAY MD) All Other Systems Reviewed Negative Unless Noted: Yes (LUPE BARCLAY MD) Past Adsdrky-Yinkvc-Lplzwz Hx Past Med/Social Hx: Reviewed Nursing Past Med/Soc Hx (LUPE BARCLAY MD) Patient Social History Alcohol Use: Denies Use Recreational Drug Use: No Drug of Choice: CANNIBUS Smoking Status: Never a Smoker 2nd Hand Smoke Exposure: No Recent Foreign Travel: No Contact w/Someone Who Travel: No Recent Infectious Disease Expo: No Recent Hopitalizations: No Physical Abuse: No Sexual Abuse: No Mistreated: No Fear: No (BLAYNE MURGUIA) Immunizations Up To Date Tetanus Booster (TDap): More than 5yrs PED Vaccines UTD: No (BLAYNE MURGUIA) Seasonal Allergies Seasonal Allergies: No (BLAYNE MURGUIA) Past Medical History Surgeries: Yes (HYPOGONADISM , ) Gallbladder, Testicular Respiratory: Yes Asthma Currently Using CPAP: No Currently Using BIPAP: No Cardiac: Yes Hypertension, Palpitations Neurological: Yes Neuropathy Reproductive Disorders: Yes (HYPOGONADISM sx as an infant) Sexually Transmitted Disease: No HIV/AIDS: No Genitourinary: No Gastrointestinal: Yes (blood in stools) Gastroesophageal Reflux Musculoskeletal: No Endocrine: Yes (MORBID OBESITY) Diabetes, Insulin dep HEENT: No Loss of Vision: Denies Hearing Impairment: Denies Cancer: No Psychosocial: Yes ADD/ADHD, Anxiety, Depression Integumentary: No Blood Disorders: No Adverse Reaction/Blood Tranf: No (BLAYNE MURGUIA) Family Medical History Reviewed Nursing Family Hx (LUPE BARCLAY MD) Arthritis 19 MOTHER Congenital heart disease Diabetes mellitus 19 FATHER 19 MOTHER FH: brain aneurysm 19 FATHER (cause of - 09/13/2015) Glaucoma 19 FATHER Hypertension 19 FATHER 19 MOTHER Psychosocial problem 19 MOTHER (depression) No Pertinent Family Hx (BLAYNE MURGUIA) Physical Exam Vital Signs Vital Signs - First Documented 05/14/19 00:58 Temp 97.7 Pulse 89 Resp 20 B/P (MAP) 150/91 (110) Pulse Ox 97 O2 Delivery Room Air (LUPE BARCLAY MD) Vital Signs Capillary Refill : Less Than 3 Seconds ([facility] Height/Weight/BMI Height: 5'10.00" Weight: 320lbs. 0.0oz. 145.430732hj; 47.9 BMI Method:Stated General Appearance: WD/WN, mild distress Neck: full range of motion, normal inspection Respiratory: lungs clear, normal breath sounds, no respiratory distress, no accessory muscle use Cardiovascular: regular rate, rhythm, no murmur Peripheral Pulses: 2+ Dorsalis Pedis (R), 2+ Left Dors-Pedis (L), 2+ Radial Pulses (R), 2+ Radial Pulses (L) Gastrointestinal: normal bowel sounds, no organomegaly, no pulsatile mass, tenderness (RUQ, Suprapubic) Extremities: normal range of motion, non-tender, no calf tenderness Neurologic/Psychiatric: alert, normal mood/affect, oriented x 3 (BLAYNE MURGUIA) General Appearance: WD/WN, mild distress HEENT: PERRL/EOMI, pharynx normal Neck: full range of motion, supple Respiratory: lungs clear, normal breath sounds Cardiovascular: regular rate, rhythm, no murmur Gastrointestinal: soft, tenderness (RUQ, Suprapubic) Extremities: normal range of motion, non-tender Neurologic/Psychiatric: alert, oriented x 3 Skin: normal color, warm/dry (LUPE BARCLAY MD) Progress/Results/Core Measures Results/Orders Lab Results Laboratory Tests Test 05/14/19 01:04 05/14/19 01:24 05/14/19 03:20 Range/Units White Blood Count 7.2 4.3-11.0 10^3/uL Red Blood Count 5.29 4.35-5.85 10^6/uL Hemoglobin 15.9 13.3-17.7 G/DL Hematocrit 44 40-54 % Mean Corpuscular Volume 82 80-99 FL Mean Corpuscular Hemoglobin 30 25-34 PG Mean Corpuscular Hemoglobin Concent 37 H 32-36 G/DL Red Cell Distribution Width 13.1 10.0-14.5 % Platelet Count 211 130-400 10^3/uL Mean Platelet Volume 11.3 H 7.4-10.4 FL Neutrophils (%) (Auto) 62 42-75 % Lymphocytes (%) (Auto) 28 12-44 % Monocytes (%) (Auto) 8 0-12 % Eosinophils (%) (Auto) 1 0-10 % Basophils (%) (Auto) 0 0-10 % Neutrophils # (Auto) 4.5 1.8-7.8 X 10^3 Lymphocytes # (Auto) 2.1 1.0-4.0 X 10^3 Monocytes # (Auto) 0.6 0.0-1.0 X 10^3 Eosinophils # (Auto) 0.1 0.0-0.3 10^3/uL Basophils # (Auto) 0.0 0.0-0.1 10^3/uL Sodium Level 134 L 135-145 MMOL/L Potassium Level 4.2 3.6-5.0 MMOL/L Chloride Level 99 98-107 MMOL/L Carbon Dioxide Level 19 L 21-32 MMOL/L Anion Gap 16 H 5-14 MMOL/L Blood Urea Nitrogen 16 7-18 MG/DL Creatinine 1.02 0.60-1.30 MG/DL Estimat Glomerular Filtration Rate > 60 BUN/Creatinine Ratio 16 Glucose Level 339 H 70-105 MG/DL Calcium Level 10.0 8.5-10.1 MG/DL Corrected Calcium 9.9 8.5-10.1 MG/DL Total Bilirubin 0.5 0.1-1.0 MG/DL Aspartate Amino Transf (AST/SGOT) 53 H 5-34 U/L Alanine Aminotransferase (ALT/SGPT) 56 H 0-55 U/L Alkaline Phosphatase 101 40-136 U/L C-Reactive Protein High Sensitivity 0.95 H 0.00-0.50 MG/DL Total Protein 7.3 6.4-8.2 GM/DL Albumin 4.1 3.2-4.5 GM/DL Amylase Level 55 25-125 U/L Lipase 29 8-78 U/L Urine Color YELLOW Urine Clarity CLEAR Urine pH 5 5-9 Urine Specific [place] 1.020 1.016-1.022 Urine Protein NEGATIVE NEGATIVE Urine Glucose (UA) 4+ H NEGATIVE Urine Ketones 3+ H NEGATIVE Urine Nitrite NEGATIVE NEGATIVE Urine Bilirubin NEGATIVE NEGATIVE Urine Urobilinogen NORMAL NORMAL MG/DL Urine Leukocyte Esterase NEGATIVE NEGATIVE Urine RBC (Auto) NEGATIVE NEGATIVE Urine RBC NONE /HPF Urine WBC NONE /HPF Urine Squamous Epithelial Cells 0-2 /HPF Urine Crystals NONE /LPF Urine Bacteria NEGATIVE /HPF Urine Casts NONE /LPF Urine Mucus NEGATIVE /LPF Urine Culture Indicated NO Glucometer 209 H 70-110 MG/DL (LUPE BARCLAY MD) My Orders Orders - LUPE BARCLAY MD Cbc With Automated Diff (05/14/19 01:15) Comprehensive Metabolic Panel (05/14/19 01:15) Hs C Reactive Protein (05/14/19 01:15) Ua Culture If Indicated (05/14/19 01:15) Ed Iv/Invasive Line Start (05/14/19 01:15) Ns Iv 1000 Ml (Sodium Chloride 0.9%) (05/14/19 01:15) Amylase (05/14/19 01:26) Lipase (05/14/19 01:26) Lidocaine 2% Viscous 15 Ml (Xylocaine Vi (05/14/19 01:45) Antacid Suspension (Mylanta Suspension (05/14/19 01:45) Famotidine Injection (Pepcid Injection) (05/14/19 01:43) Ct Abdomen/Pelvis W (05/14/19 01:45) Insulin (Regular) Human (Humulin R (Per (05/14/19 01:45) Lactated Ringers (Lr 1000 Ml Iv Solution (05/14/19 01:45) Pantoprazole Injection (Protonix Injecti (05/14/19 04:15) (LUPE BARCLAY MD) Medications Given in ED Current Medications Medications Dose Ordered Sig/Nikia Route Start Time Stop Time Status Last Admin Dose Admin Al Hydrox/Mg Hydrox/Simethicone 30 ml ONCE ONCE PO 05/14/19 01:45 05/14/19 01:46 DC 05/14/19 02:42 30 ML Lidocaine HCl 15 ml ONCE ONCE PO 05/14/19 01:45 05/14/19 01:46 DC 05/14/19 02:42 15 ML Sodium Chloride 1,000 ml @ 0 mls/hr Q0M ONCE IV 05/14/19 01:15 05/14/19 01:16 DC 05/14/19 01:28 0 MLS/HR (LUPE BARCLAY MD) Vital Signs/I&O 05/14/19 00:58 Temp 97.7 Pulse 89 Resp 20 B/P (MAP) 150/91 (110) Pulse Ox 97 O2 Delivery Room Air (LUPE BARCLAY MD) Blood Pressure Mean: 110 Progress Progress Note : Time: 01:15 Progress Note Pt seen by me. Pt presents with lower abdominal pain radiating to his back that started 2 weeks ago but tonight became worse. His abdomen was slightly tender to palpation in RUQ and Lower abdomen. I discussed the patient with Dr. Barclay. Ordered CBC, CMP, Lipase, Amylase, UA, 1L fluids. We will check the labs befroe ordering a CT with contrast of the abdomen. (BLAYNE MURGUIA) Progress Note : Progress Note Seen and evaluated the patient and agree with above except as indicated. Have directed the plan of care. IV, labs, UA, normal saline 1 L bolus ordered. Pepcid 20 mg IV and GI cocktail ordered. Monitor patient. CT abdomen and pelvis ordered. Repeat fluids bolus with LR 1 L and insulin 7 units IV ordered. Monitor patient. 0407: Overall better. No acute findings on CT. Protonix 40 mg IV ordered. Discharged home with return precautions. Patient verbalize understanding instructions and agreement with plan. (LUPE BARCLAY MD) Diagnostic Imaging Diagonstic Imaging: CT Plain Films/CT/US/NM/MRI: abdomen, pelvis Comments Fatty liver. Scattered diverticulosis without diverticulitis. Post cholecystectomy. Reviewed: Reviewed [place] Study (LUPE BARCLAY MD) Departure Impression Primary Impression: Epigastric abdominal pain Disposition: 01 HOME, SELF-CARE Condition: Stable Departure-Patient Inst. Decision time for Depature: 04:08 (LUPE BARCLAY MD) Referrals: [facility] (PCP/Family) Primary Care Physician Patient Instructions: Acute Abdomen (Belly Pain), Adult (DC), Stomach Ache and Stomach Upset Add. Discharge Instructions: All discharge instructions reviewed with patient and/or family. Voiced understanding. You need to restart and continue your omeprazole daily as previously prescribed. Follow-up with your doctor this week for recheck and further evaluation. You should consider referral to surgeon for further evaluation to recheck the upper components of the gastrointestinal system via scope as needed. Return for worse pain, fever, vomiting, weakness, breathing problems or other concerns as needed. Copy Copies To 1: KRISSY HALL TYLER MED STUDEN May 14, 2019 01:39 LUPE BARCLAY MD May 14, 2019 04:10
[2019-05-14] MEDS ORDERED: FAMOTIDINE 20MG/2ML IV (PEPCID) IV STA (01:43)
[2019-05-14 01:44] LABS: AMYLASE 55 U/L (25-125); LIPASE 29 U/L (8-78)
[2019-05-14] MEDS ORDERED: LACTATED RINGERS 1,000 ML IV STA (01:45)
[2019-05-14] MEDS ORDERED: LIDOCAINE 2% VISCOUS 15 ML UDC PO ONE (01:45)
[2019-05-14] MEDS ORDERED: inSUlin (REGULAR) HUMAN 1 UNIT/0.01 ML (CHARGE PER UNIT) IV STA (01:45)
[2019-05-14] MEDS ORDERED: ANTACID SUSP 30 ML UDC (MYLANTA) PO ONE (01:45)
--- NOTE | 2019-05-14 03:19 | NUR ---
PT VOICED IMPROVEMENT IN SYMPTOMS AT THIS TIME. RATES HIS PAIN AT "3" ON 0-10 SCALE.
[2019-05-14] MEDS ORDERED: PANTOPRAZOLE 40 MG (PROTONIX) VIAL IV ONE (04:15)
[2019-05-14 04:35] VITALS: BP 141/95
--- NOTE | 2019-05-14 04:35 | NUR ---
PT DISCHARGED TO HOME W/ INSTR. PT TO F/U W/ PCP, TAKE MEDS PRESCRIBED ET RETURN IF SYMPTOMS CHANGE OR GET WORSE. UNDERSTANDING VOICED, NO QUESTIONS.
--- NOTE | 2019-05-14 07:20 | Diagnostic Imaging Report ---
PROCEDURE: CT abdomen and pelvis with contrast. TECHNIQUE: Multiple contiguous axial images were obtained through the abdomen and pelvis after administration of intravenous contrast. Auto Exposure Controls were utilized during the CT exam to meet ALARA standards for radiation dose reduction. INDICATION: Abdominal pain. Comparison made to prior exam of 11/09/2018. FINDINGS: The heart size is normal. The lung bases are clear. There is fatty infiltration of liver. Gallbladder is surgically absent. No biliary duct dilatation. Spleen is normal. Pancreas and adrenal glands are unremarkable. Kidneys are normal in appearance. Aorta is nonaneurysmal. Bowel gas pattern is nonspecific. Bladder is normal. There is no pelvic mass, adenopathy or free fluid. There are some scattered diverticula without evidence of diverticulitis. There are mild degenerative changes in the spine. IMPRESSION: 1. Unchanged fatty infiltration of liver. 2. Diverticular disease without evidence of diverticulitis. 3. No other acute abnormality in the abdomen or pelvis. Dictated by: Dictated on workstation # [id number]
== END 2019-05-14 04:35 | disposition home or self-care (01) ==
LOC: EDUNIT# 00:56 → ER 00:58
DX: R10.13 Epigastric pain (principal); I10 Essential (primary) hypertension; J45.909 Unspecified asthma, uncomplicated; E11.42 Type 2 diabetes mellitus with diabetic polyneuropathy; K21.9 Gastro-esophageal reflux disease without esophagitis; E66.01 Morbid (severe) obesity due to excess calories; F41.9 Anxiety disorder, unspecified; F32.9 Major depressive disorder, single episode, unspecified; F90.9 Attention-deficit hyperactivity disorder, unspecified type; Z87.19 Personal history of other diseases of the digestive system; Z88.8 Allergy status to other drugs, medicaments and biological substances; Z88.1 Allergy status to other antibiotic agents; Z88.5 Allergy status to narcotic agent; Z79.4 Long term (current) use of insulin; Z82.49 Family history of ischemic heart disease and other diseases of the circulatory system; Z68.42 Body mass index [BMI] 45.0-49.9, adult
CPT/HCPCS: 36415; 74177; 80053; 81000; 82150; 82962; 83690; 85025; 86141

== ENCOUNTER 2019-05-28 12:37 | Emergency (ER) | payer MEDICARE, MEDICAID ==
[~2019-05-28] VITALS: Ht 180.3 cm; Wt 147.0 kg
[2019-05-28 13:17] LABS: BILIRUBIN,URINE NEGATIVE (NEGATIVE); CLARITY,URINE CLEAR; COLOR,URINE YELLOW; GLUCOSE, URINE (UA) 4+ (NEGATIVE); KETONES,URINE 2+ (NEGATIVE); LEUKOCYTE ESTERASE ,URINE NEGATIVE (NEGATIVE); NITRITE,URINE NEGATIVE (NEGATIVE); PH,URINE 5 (5-9); PROTEIN,URINE 1+ (NEGATIVE); UROBILINOGEN,URINE NORMAL (NORMAL)
[2019-05-28 13:24] LABS: BACTERIA,URINE NEGATIVE /HPF
--- NOTE | 2019-05-28 14:19 | Diagnostic Imaging Report ---
INDICATION: Lower back pain. COMPARISON: None. FINDINGS: Three views of the lumbar column demonstrate normal alignment. There is no subluxation or fracture. [id number] degenerative changes are seen throughout the disc spaces and facet joints. This is most pronounced at the L5-S1 level. The SI joints are symmetric. IMPRESSION: No traumatic malalignment or fracture. Dictated by: Dictated on workstation # [id number]
--- NOTE | 2019-05-28 14:24 | ED Back Pain ---
General Chief Complaint: Back Problems Stated Complaint: FALL - LOW BACK PAIN Nursing Triage Note: Pt presents with lower back/tail bone pain x 5 days. Pt reports falling and hitting tail bone on a table leg. Pt states taking ibuprofen and tylenol for the pain but is unrelieved. Nursing Sepsis Screen: No Definite Risk History of Present Illness Date Seen by Provider: May 28, 2019 Time Seen by Provider: 13:15 Initial Comments 39-year-old male presents for low back and tailbone pain that has been present for 5 days. He states that he fell at home, landing on the base of his t able leg. He has been trying to take Tylenol and ibuprofen with minimal improvement in his symptoms. He denies any past history of injuries to his low back. He denies any new radicular paresthesia symptoms into either lower extremity. Timing/Duration: 5-6 Days Pain/Injury Location: Back Method of Injury: Fall Associated Symptoms: muscle spasms; No numbness in legs/feet, No tingling in legs/feet, No sensory/motor loss; lower back pain; No loss of bladder control, No loss of bowel control Allergies and Home Medications Allergies Coded Allergies: sertraline (Verified Allergy, Severe, RASH, SWELLING, 01/20/16) "FELT LOOPY" bupropion (Verified Allergy, Unknown, "CAUSED ME TO BANG MY HEAD ON THE WALL", 01/20/16) buspirone (Verified Allergy, Unknown, THROAT SWELLED, 01/20/16) cephalexin (Verified Allergy, Unknown, HIVES, 01/20/16) codeine (Verified Allergy, Unknown, 01/20/16) Home Medications Cinnamon Bark 500 Mg Capsule, 1,000 MG PO DAILY, (Reported) TAKES 2 (500MG) CAPSULES Fluoxetine HCl 20 Mg Capsule, 20 MG PO DAILY, (Reported) TAKES IN ADDITION TO FLUOXETINE 40 MG DAILY FOR A TOTAL DOSE OF 60 MG Fluoxetine HCl 40 Mg Capsule, 40 MG PO DAILY, (Reported) TAKES IN ADDITION TO FLUOXETINE 20 MG DAILY FOR A TOTAL DOSE OF 60 MG Gabapentin 800 Mg Tablet, 800 MG PO TID, (Reported) Insulin Aspart 300 Units/3 Ml Solution, 60 UNITS SQ AC PRN for BLOOD SUGAR, (Reported) Insulin Degludec 200 Unit/1 Ml Insuln.pen, 160 UNIT SQ HS, (Reported) Lisinopril 20 Mg Tablet, 20 MG PO DAILY, (Reported) Metformin HCl 500 Mg Tab.er.24h, 1,000 MG PO BID, (Reported) TAKES 2 (500 MG) TABLETS Multivitamin 1 Each Tablet, 1 TAB PO DAILY, (Reported) [place]-3/Dha/Epa/Fish Oil 1 Each Capsule, 1,000 MG PO BID, (Reported) Omeprazole 40 Mg Capsule.dr, 40 MG PO DAILY, (Reported) Ondansetron 4 Mg Tab.rapdis, 4 MG PO Q6H PRN for NAUSEA/VOMITING Prescribed by: DIANA RUIZ on 11/09/18 1754 Testosterone Cypionate 200 Mg/1 Ml Vial, 200 MG IM monthly, (Reported) Tramadol HCl 50 Mg Tablet, 50 MG PO Q6H PRN for PAIN Prescribed by: BRAXTON HOUSE on 05/28/19 1449 Patient Home Medication List Home Medication List Reviewed: Yes Review of Systems Constitutional: no symptoms reported, see HPI Musculoskeletal: see HPI, back pain All Other Systems Reviewed Negative Unless Noted: Yes Past Nbvgjkg-Eninld-Kwxjht Hx Past Med/Social Hx: Reviewed Nursing Past Med/Soc Hx Patient Social History Alcohol Use: Denies Use Recreational Drug Use: No Drug of Choice: CANNIBUS Smoking Status: Never a Smoker 2nd Hand Smoke Exposure: No Recent Foreign Travel: No Contact w/Someone Who Travel: No Recent Infectious Disease Expo: No Recent Hopitalizations: No Physical Abuse: No Sexual Abuse: No Mistreated: No Fear: No Immunizations Up To Date Tetanus Booster (TDap): More than 5yrs PED Vaccines UTD: No Seasonal Allergies Seasonal Allergies: No Past Medical History Surgeries: Yes (HYPOGONADISM INFANT, ) Gallbladder, Testicular Respiratory: No Asthma Currently Using CPAP: No Currently Using BIPAP: No Cardiac: Yes Hypertension, Palpitations Neurological: Yes Neuropathy Reproductive Disorders: Yes (HYPOGONADISM sx as an infant) Sexually Transmitted Disease: No HIV/AIDS: No Genitourinary: No Gastrointestinal: Yes Gastroesophageal Reflux Musculoskeletal: No Endocrine: Yes (MORBID OBESITY) Diabetes, Insulin dep HEENT: No Loss of Vision: Denies Hearing Impairment: Denies Cancer: No Psychosocial: Yes ADD/ADHD, Anxiety, Depression Integumentary: No Blood Disorders: No Adverse Reaction/Blood Tranf: No Family Medical History Arthritis 19 MOTHER Congenital heart disease Diabetes mellitus 19 FATHER 19 MOTHER FH: brain aneurysm 19 FATHER (cause of - 09/13/2015) Glaucoma 19 FATHER Hypertension 19 FATHER 19 MOTHER Psychosocial problem 19 MOTHER (depression) No Pertinent Family Hx Physical Exam Vital Signs Vital Signs - First Documented 05/28/19 05/28/19 13:01 14:53 Temp 99.0 Pulse 100 Resp 20 B/P (MAP) 128/85 (99) Pulse Ox 99 O2 Delivery Room Air Capillary Refill : Less Than 3 Seconds Height, Weight, BMI Height: 5'11.00" Weight: 324lbs. 0.0oz. 146.786109yf; 47.9 BMI Method:Stated General Appearance: No Apparent Distress Neck: Full Range of Motion, Normal Inspection, Non Tender, Supple Cardiovascular: Regular Rate, Rhythm, Normal Peripheral Pulses Respiratory: Chest Non Tender, Lungs Clear, Normal Breath Sounds Gastrointestinal: Normal Bowel Sounds, Non Tender, Soft Back: Normal Inspection, Decreased Range of Motion, Muscle Spasm, Vertebral Tenderness (lower lumbar and upper sacral) Extremity: Normal Capillary Refill, Normal Inspection, Normal Range of Motion, No Pedal Edema Neurologic/Psychiatric: Alert, Oriented x3, No Motor/Sensory Deficits, Normal Mood/Affect Skin: Normal Color, Warm/Dry Neurovascular status intact bilateral lower extremities. Power V/V L4-S1. Neg SLR. Progress/Results/Core Measures Results/Orders Lab Results Laboratory Tests Test 05/28/19 13:11 Range/Units Urine Color YELLOW Urine Clarity CLEAR Urine pH 5 5-9 Urine Specific [place] 1.025 H 1.016-1.022 Urine Protein 1+ H NEGATIVE Urine Glucose (UA) 4+ H NEGATIVE Urine Ketones 2+ H NEGATIVE Urine Nitrite NEGATIVE NEGATIVE Urine Bilirubin NEGATIVE NEGATIVE Urine Urobilinogen NORMAL NORMAL MG/DL Urine Leukocyte Esterase NEGATIVE NEGATIVE Urine RBC (Auto) NEGATIVE NEGATIVE Urine RBC NONE /HPF Urine WBC NONE /HPF Urine Squamous Epithelial Cells 5-10 /HPF Urine Crystals NONE /LPF Urine Bacteria NEGATIVE /HPF Urine Casts NONE /LPF Urine Mucus NEGATIVE /LPF Urine Culture Indicated NO My Orders Orders - BRAXTON HOUSE Ua Culture If Indicated (05/28/19 12:46) Tramadol Tablet (Ultram Tablet) (05/28/19 14:00) Lumbar Spine - 2-3 Views (05/28/19 13:58) Medications Given in ED Current Medications Medications Dose Ordered Sig/Nikia Route Start Time Stop Time Status Last Admin Dose Admin Tramadol HCl 100 mg ONCE ONCE PO 05/28/19 14:00 05/28/19 14:01 DC 05/28/19 14:02 100 MG Vital Signs/I&O 05/28/19 05/28/19 13:01 14:53 Temp 99.0 99.0 Pulse 100 96 Resp 20 20 B/P (MAP) 128/85 (99) 125/89 (101) Pulse Ox 99 O2 Delivery Room Air Room Air Blood Pressure Mean: 99 Diagnostic Imaging Diagonstic Imaging: Xray Comments NAME: JOHN CHAVEZ [facility] REC#: [id number] PT STATUS: REG ER : 1980 PHYSICIAN: BRAXTON HOUSE ADMIT DATE: 05/28/19/ER Draft Date of Exam:05/28/19 LUMBAR SPINE - 2-3 VIEWS INDICATION: Lower back pain. COMPARISON: None. FINDINGS: Three views of the lumbar column demonstrate normal alignment. There is no subluxation or fracture. Dhwyutv-og-udcj degenerative changes are seen throughout the disc spaces and facet joints. This is most pronounced at the L5-S1 level. The SI joints are symmetric. IMPRESSION: No traumatic malalignment or fracture. Dictated on workstation # [id number] Dict: 05/28/19 1416 Trans: 05/28/19 1419 [id number] Interpreted by: TALITA LARA Electronically signed by: Reviewed: Reviewed by Me Departure Impression Primary Impression: Back pain Qualified Codes: M54.5 - Low back pain Disposition: 01 HOME, SELF-CARE Condition: Improved Departure-Patient Inst. Decision time for Depature: 14:40 Referrals: [facility] (PCP) Primary Care Physician NERISSA MARTINEZ (Family) Primary Care Physician Patient Instructions: Low Back Pain (DC) Add. Discharge Instructions: Alternate heat and ice to your low back. Activity as tolerated. Follow-up with your primary care provider if symptoms are not improving or worsen. Continue to alternate between Tylenol 650 mg and ibuprofen 600 mg every 4 hours for pain. Use tramadol for pain not managed with the Tylenol and ibuprofen. Return to emergency department for new, urgent health care needs. All discharge instructions reviewed with patient and/or family. Voiced understanding. Scripts Tramadol HCl (Tramadol HCl) 50 Mg Tablet 50 MG PO Q6H PRN for PAIN, #12 TAB 0 Refills Prov: BRAXTON HOUSE 05/28/19 BRAXTON HOUSE May 28, 2019 14:24
[2019-05-28] MEDS ORDERED: TRAM50TA2 PO (14:49)
[2019-05-28 14:53] VITALS: BP 125/89
== END 2019-05-28 14:53 | disposition home or self-care (01) ==
LOC: EDUNIT# 12:37 → ER 12:38
DX: M54.5 Low back pain (principal); J45.909 Unspecified asthma, uncomplicated; I10 Essential (primary) hypertension; E11.40 Type 2 diabetes mellitus with diabetic neuropathy, unspecified; K21.9 Gastro-esophageal reflux disease without esophagitis; E66.01 Morbid (severe) obesity due to excess calories; F90.9 Attention-deficit hyperactivity disorder, unspecified type; F41.9 Anxiety disorder, unspecified; Z88.5 Allergy status to narcotic agent; Z88.1 Allergy status to other antibiotic agents; Z88.8 Allergy status to other drugs, medicaments and biological substances; Z79.4 Long term (current) use of insulin; Z82.49 Family history of ischemic heart disease and other diseases of the circulatory system; Z68.42 Body mass index [BMI] 45.0-49.9, adult; W01.198A Fall on same level from slipping, tripping and stumbling with subsequent striking against other object, initial encounter
CPT/HCPCS: 72100; 81000

== ENCOUNTER 2019-09-14 22:47 | Emergency (ER) | payer MEDICARE, MEDICAID ==
[~2019-09-14] VITALS: Ht 177.8 cm; Wt 143.0 kg
[2019-09-15] MEDS ORDERED: FAMOTIDINE 20 MG (PEPCID) TABLET PO ONE (00:30)
[2019-09-15] MEDS ORDERED: LIDOCAINE 2% VISCOUS 15 ML UDC PO ONE (00:30)
[2019-09-15] MEDS ORDERED: DOXYCYCLINE 100 MG (VIBRAMYCIN) TABLET PO ONE (00:30)
--- NOTE | 2019-09-15 00:30 | ED General ---
General Chief Complaint: General Problems/Pain Stated Complaint: DIZZY Source of Information: Patient Exam Limitations: No Limitations History of Present Illness Date Seen by Provider: Sep 15, 2019 Time Seen by Provider: 00:02 Initial Comments This 39-year-old man presents to the emergency room with multiple complaints. First, he was recently seen in the clinic for her to abscess of the left groin. He had attempted to drain this himself and expressed some bloody purulent drainage. He was placed on Bactrim. He now thinks he is having an allergic reaction to the Bactrim because he has developed diffuse itching several hours after taking his first dose of Bactrim. He is also concerned about dental pain he is having on the right. He has an appointment pending with the dentist in October. He is afebrile. The patient also developed a sensation of dizziness which has now improved. Allergies and Home Medications Allergies Coded Allergies: sertraline (Verified Allergy, Severe, RASH, SWELLING, 01/20/16) "FELT LOOPY" bupropion (Verified Allergy, Unknown, "CAUSED ME TO BANG MY HEAD ON THE WALL", 01/20/16) buspirone (Verified Allergy, Unknown, THROAT SWELLED, 01/20/16) cephalexin (Verified Allergy, Unknown, HIVES, 01/20/16) codeine (Verified Allergy, Unknown, 01/20/16) sulfamethoxazole (Verified Adverse Reaction, Unknown, Itching, 09/15/19) trimethoprim (Verified Adverse Reaction, Unknown, Itching, 09/15/19) Home Medications Chlorhexidine Gluconate 473 Ml Mouthwash, 30 ML MM BID Prescribed by: DIANA RUIZ on 09/16/19826 Cinnamon Bark 500 Mg Capsule, 1,000 MG PO DAILY, (Reported) TAKES 2 (500MG) CAPSULES Doxycycline Hyclate 100 Mg Tablet, 100 MG PO BID Prescribed by: MAMIE MIDDLETON on 09/15/19 004 Fluoxetine HCl 20 Mg Capsule, 20 MG PO DAILY, (Reported) TAKES IN ADDITION TO FLUOXETINE 40 MG DAILY FOR A TOTAL DOSE OF 60 MG Fluoxetine HCl 40 Mg Capsule, 40 MG PO DAILY, (Reported) TAKES IN ADDITION TO FLUOXETINE 20 MG DAILY FOR A TOTAL DOSE OF 60 MG Gabapentin 800 Mg Tablet, 800 MG PO TID, (Reported) Insulin Aspart 300 Units/3 Ml Solution, 60 UNITS SQ AC PRN for BLOOD SUGAR, (Reported) Insulin Degludec 200 Unit/1 Ml Insuln.pen, 160 UNIT SQ HS, (Reported) Lisinopril 20 Mg Tablet, 20 MG PO DAILY, (Reported) Metformin HCl 500 Mg Tab.er.24h, 1,000 MG PO BID, (Reported) TAKES 2 (500 MG) TABLETS Multivitamin 1 Each Tablet, 1 TAB PO DAILY, (Reported) Naproxen 500 Mg Tablet, 500 MG PO BID PRN for PAIN-BREAKTHROUGH Prescribed by: DIANA RUIZ on 09/16/19 0827 [place]-3/Dha/Epa/Fish Oil 1 Each Capsule, 1,000 MG PO BID, (Reported) Omeprazole 40 Mg Capsule.dr, 40 MG PO DAILY, (Reported) Ondansetron 4 Mg Tab.rapdis, 4 MG PO Q6H PRN for NAUSEA/VOMITING Prescribed by: DIANA RUIZ on 11/09/18 1754 Testosterone Cypionate 200 Mg/1 Ml Vial, 200 MG IM monthly, (Reported) Tramadol HCl 50 Mg Tablet, 50 MG PO Q6H PRN for PAIN Prescribed by: BRAXTON HOUSE on 05/28/19 1449 Patient Home Medication List Home Medication List Reviewed: Yes Review of Systems Review of Systems Constitutional: no symptoms reported EENTM: no symptoms reported Respiratory: no symptoms reported Cardiovascular: see HPI Gastrointestinal: no symptoms reported Genitourinary: no symptoms reported Musculoskeletal: no symptoms reported Skin: see HPI Psychiatric/Neurological: No Symptoms Reported Hematologic/Lymphatic: No Symptoms Reported Past Gzfenzj-Drnash-Orggxb Hx Past Med/Social Hx: Reviewed Nursing Past Med/Soc Hx Patient Social History Drug of Choice: CANNIBUS 2nd Hand Smoke Exposure: No Recent Foreign Travel: No Contact w/Someone Who Travel: No Recent Hopitalizations: No Immunizations Up To Date Tetanus Booster (TDap): More than 5yrs PED Vaccines UTD: No Seasonal Allergies Seasonal Allergies: No Past Medical History Surgeries: Yes (HYPOGONADISM INFANT, ) Gallbladder, Testicular Respiratory: No Asthma Currently Using CPAP: No Currently Using BIPAP: No Cardiac: Yes Hypertension, Palpitations Neurological: Yes Neuropathy Reproductive Disorders: Yes (HYPOGONADISM sx as an infant) Sexually Transmitted Disease: No HIV/AIDS: No Genitourinary: No Gastrointestinal: Yes Gastroesophageal Reflux Musculoskeletal: No Endocrine: Yes (MORBID OBESITY) Diabetes, Insulin dep HEENT: No Loss of Vision: Denies Hearing Impairment: Denies Cancer: No Psychosocial: Yes ADD/ADHD, Anxiety, Depression Integumentary: No Blood Disorders: No Adverse Reaction/Blood Tranf: No Family Medical History Arthritis 19 MOTHER Congenital heart disease Diabetes mellitus 19 FATHER 19 MOTHER FH: brain aneurysm 19 FATHER (cause of - 09/13/2015) Glaucoma 19 FATHER Hypertension 19 FATHER 19 MOTHER Psychosocial problem 19 MOTHER (depression) No Pertinent Family Hx Physical Exam Vital Signs Vital Signs - First Documented 09/14/19 09/15/19 23:50 00:57 Temp 35.8 Pulse 91 Resp 18 B/P (MAP) 142/97 (112) Pulse Ox 98 Capillary Refill : Height, Weight, BMI Height: 5'11.00" Weight: 324lbs. 0.0oz. 146.397650qi; 47.9 BMI Method:Stated General Appearance: No Apparent Distress, WD/WN, Obese HEENT: Normal ENT Inspection, Other (multiple dental caries and fillings. Tenderness to some of the right-sided molars.) Neck: Normal Inspection Respiratory: Lungs Clear, Normal Breath Sounds, No Accessory Muscle Use Cardiovascular: Regular Rate, Rhythm, No Edema, No Murmur Gastrointestinal: Normal Bowel Sounds, Non Tender, Soft Back: Normal Inspection Extremity: Normal Inspection, No Pedal Edema Neurologic/Psychiatric: Alert, Oriented x3, No Motor/Sensory Deficits, Normal Mood/Affect, bearing maker II-XII Norm as Tested Skin: Normal Color, Warm/Dry, Other (nodular area of induration in the left groin measuring 3-4 cm in diameter) Progress/Results/Core Measures Suspected Sepsis SIRS Temperature: Pulse: Respiratory Rate: Blood Pressure / Mean: Results/Orders Lab Results My Orders Vital Signs/I&O Capillary Refill : Point of Care Testing Finger Stick Blood Glucose: 256 Progress Note : Progress Note Bedside ultrasound was used to evaluate the left groin. There was no significant fluid collection amenable to drainage. Tissue seemed indurated and edematous but without a drainable fluid pocket. Bactrim was placed on the allergy list due to the itching. Pepcid was given as a nondrowsy antihistamine as patient needed to drive home. He was encouraged to take Benadryl at home if needed. Antibiotic was changed to doxycycline. Departure Impression Primary Impression: Pain, dental Additional Impressions: Pruritus Groin abscess Disposition: HOME, SELF-CARE Condition: Improved Departure-Patient Inst. Decision time for Depature: 00:30 Referrals: [facility] (PCP) Primary Care Physician NERISSA MARTINEZ (Family) Primary Care Physician Patient Instructions: Dental Pain (DC), Skin Abscess Add. Discharge Instructions: For itching you may use Benadryl (diphenhydramine) or a nondrowsy antihistamine such as Claritin (loratadine) purchased [id number]. Change your Bactrim antibiotic to doxycycline as prescribed. Follow-up with the dentist as soon as possible. You may have some tiny abscess formation under the lesion in your left groin. You may soak in warm bath or apply warm compresses for about 20 minutes 3 or 4 times a day until it resolves. Return to care if you have worsening symptoms. [place] your teeth gently with a soft bristle toothbrush twice daily. Rinse with antiseptic mouthwash if tolerated. You may use the anesthetic gauze pads by draping one over the affected teeth and gums as needed. Eat and drink very cautiously after use as these will not your lips, mouth, tongue, and throat. Do NOT fall sleep with anesthetic gauze pads in your mouth. You may also use Tylenol and/or ibuprofen for pain. All discharge instructions reviewed with patient and/or family. Voiced understanding. Scripts Doxycycline Hyclate (Doxycycline Hyclate) 100 Mg Tablet 100 MG PO BID, #20 TAB 0 Refills Prov: MAMIE DUBOIS MD 09/15/19 Copy Copies To 1: KRISSY HALL JOSHUA T MD Sep 15, 2019 00:30
[2019-09-15] MEDS ORDERED: DOXY100T2 PO (00:42)
[2019-09-15 00:57] VITALS: BP 138/95
[2019-09-16] MEDS ORDERED: CHLO473M MM (08:27)
[2019-09-16] MEDS ORDERED: NAPR-1071 PO (08:27)
== END 2019-09-15 00:57 | disposition home or self-care (01) ==
LOC: EDUNIT# 22:47 → ER 22:48
DX: K08.89 Other specified disorders of teeth and supporting structures (principal); L29.9 Pruritus, unspecified; L02.214 Cutaneous abscess of groin; J45.909 Unspecified asthma, uncomplicated; I10 Essential (primary) hypertension; E11.40 Type 2 diabetes mellitus with diabetic neuropathy, unspecified; K21.9 Gastro-esophageal reflux disease without esophagitis; F90.9 Attention-deficit hyperactivity disorder, unspecified type; F41.9 Anxiety disorder, unspecified; F32.9 Major depressive disorder, single episode, unspecified; E66.01 Morbid (severe) obesity due to excess calories; Z88.2 Allergy status to sulfonamides; Z88.1 Allergy status to other antibiotic agents; Z88.8 Allergy status to other drugs, medicaments and biological substances; Z79.4 Long term (current) use of insulin; Z82.49 Family history of ischemic heart disease and other diseases of the circulatory system; Z68.42 Body mass index [BMI] 45.0-49.9, adult
CPT/HCPCS: 82962

== ENCOUNTER 2019-09-16 07:34 | Emergency (ER) | payer MEDICARE, MEDICAID ==
[~2019-09-16] VITALS: Ht 177 cm; Wt 145.0 kg
[~2019-09-16 07:34] MED LIST changes: +DOXY100T2 PO
--- NOTE | 2019-09-16 08:24 | ED EENT ---
History of Present Illness General Chief Complaint: Dental Problems/Pain Stated Complaint: CHEST PAIN Nursing Triage Note: PRESENTED TO REGISTRATION WITH COMPLAINTS OF CHEST PAIN HOWEVER UPON WALKING INTO THE ER PT COMPLAINTS WERE OF DENTAL PAIN WHICH HE WAS SEEN FOR YESTERDAY. STATES HE CAN'T TAKE THE PAIN ANYMORE AND THINKS THE DENTAL PAIN IS CAUSING HIS CHEST TO HURT. Source: patient Exam Limitations: no limitations History of Present Illness Date Seen by Provider: Sep 16, 2019 Time Seen by Provider: 07:57 Initial Comments Patient reports ER by private conveyance with chief complaint of dental pain. He says he's had it for 2 days and today it woke him up from sleep this morning around 3:00. He's been using Tylenol, ibuprofen, saltwater gargles, topical lidocaine. He says both his upper and lower teeth hurt. He has contacted [facility] but does not have an appointment yet. He says he took a hydrocodone that he had left over from an old prescription yesterday for the pain. He is not having any fevers or chills but he is having some nausea, pain in his jaw and ear and all over body pain due to this tooth pain. He's having no shortness of breath. He has diabetes but no hyperlipidemia, hypertension or history of coronary disease. Allergies and Home Medications Allergies Coded Allergies: sertraline (Verified Allergy, Severe, RASH, SWELLING, 01/20/16) "FELT LOOPY" bupropion (Verified Allergy, Unknown, "CAUSED ME TO BANG MY HEAD ON THE WALL", 01/20/16) buspirone (Verified Allergy, Unknown, THROAT SWELLED, 01/20/16) cephalexin (Verified Allergy, Unknown, HIVES, 01/20/16) codeine (Verified Allergy, Unknown, 01/20/16) sulfamethoxazole (Verified Adverse Reaction, Unknown, Itching, 09/15/19) trimethoprim (Verified Adverse Reaction, Unknown, Itching, 09/15/19) Home Medications Cinnamon Bark 500 Mg Capsule, 1,000 MG PO DAILY, (Reported) TAKES 2 (500MG) CAPSULES Doxycycline Hyclate 100 Mg Tablet, 100 MG PO BID Prescribed by: MAMIE MIDDLETON on 09/15/19 0042 Fluoxetine HCl 20 Mg Capsule, 20 MG PO DAILY, (Reported) TAKES IN ADDITION TO FLUOXETINE 40 MG DAILY FOR A TOTAL DOSE OF 60 MG Fluoxetine HCl 40 Mg Capsule, 40 MG PO DAILY, (Reported) TAKES IN ADDITION TO FLUOXETINE 20 MG DAILY FOR A TOTAL DOSE OF 60 MG Gabapentin 800 Mg Tablet, 800 MG PO TID, (Reported) Insulin Aspart 300 Units/3 Ml Solution, 60 UNITS SQ AC PRN for BLOOD SUGAR, (Reported) Insulin Degludec 200 Unit/1 Ml Insuln.pen, 160 UNIT SQ HS, (Reported) Lisinopril 20 Mg Tablet, 20 MG PO DAILY, (Reported) Metformin HCl 500 Mg Tab.er.24h, 1,000 MG PO BID, (Reported) TAKES 2 (500 MG) TABLETS Multivitamin 1 Each Tablet, 1 TAB PO DAILY, (Reported) [place]-3/Dha/Epa/Fish Oil 1 Each Capsule, 1,000 MG PO BID, (Reported) Omeprazole 40 Mg Capsule.dr, 40 MG PO DAILY, (Reported) Ondansetron 4 Mg Tab.rapdis, 4 MG PO Q6H PRN for NAUSEA/VOMITING Prescribed by: DIANA RUIZ on 11/09/18 6504 Testosterone Cypionate 200 Mg/1 Ml Vial, 200 MG IM monthly, (Reported) Tramadol HCl 50 Mg Tablet, 50 MG PO Q6H PRN for PAIN Prescribed by: BRAXTON HOUSE on 05/28/19 1449 Patient Home Medication List Home Medication List Reviewed: Yes Review of Systems Review of Systems Constitutional: No chills, No diaphoresis, No fever Eyes: Denies Blindness, Denies Drainage Ears: Denies Dizziness, Denies Pain Nose: denies clots, denies congestion Mouth: see HPI; denies clots, denies loose teeth Throat: denies pain, denies swelling Respiratory: No cough, No short of breath Cardiovascular: No chest pain, No edema Gastrointestinal: No abdominal pain, No nausea, No vomiting Musculoskeletal: No back pain, No joint pain All Other Systems Reviewed Negative Unless Noted: Yes Past Ayhsgzt-Yxkcam-Owjqzk Hx Patient Social History Alcohol Use: Denies Use Recreational Drug Use: No Drug of Choice: HX OF MARIJUANA Smoking Status: Never a Smoker 2nd Hand Smoke Exposure: No Recent Foreign Travel: No Contact w/Someone Who Travel: No Recent Infectious Disease Expo: No Recent Hopitalizations: No Immunizations Up To Date Tetanus Booster (TDap): More than 5yrs PED Vaccines UTD: No Seasonal Allergies Seasonal Allergies: No Past Medical History Surgeries: Yes (HYPOGONADISM INFANT) Gallbladder, Testicular Respiratory: Yes Asthma Currently Using CPAP: No Currently Using BIPAP: No Cardiac: Yes Hypertension, Palpitations Neurological: Yes Neuropathy Reproductive Disorders: Yes (HYPOGONADISM sx as an infant) Sexually Transmitted Disease: No HIV/AIDS: No Genitourinary: No Gastrointestinal: Yes (DIVERTICULITIS) Gastroesophageal Reflux, Esophagitis Musculoskeletal: No Endocrine: Yes (MORBID OBESITY; DM TYPE 2 (INSULIN AND PO)) Diabetes, Insulin dep HEENT: No Loss of Vision: Denies Hearing Impairment: Denies Cancer: No Psychosocial: Yes ADD/ADHD, Anxiety, Depression Integumentary: No Blood Disorders: No Adverse Reaction/Blood Tranf: No Family Medical History Arthritis 19 MOTHER Congenital heart disease Diabetes mellitus 19 FATHER 19 MOTHER FH: brain aneurysm 19 FATHER (cause of - 09/13/2015) Glaucoma 19 FATHER Hypertension 19 FATHER 19 MOTHER Psychosocial problem 19 MOTHER (depression) No Pertinent Family Hx Physical Exam Vital Signs Vital Signs - First Documented 09/16/19 07:35 Temp 37.0 Pulse 77 Resp 16 B/P (MAP) 126/80 (95) Pulse Ox 98 O2 Delivery Room Air Height, Weight, BMI Height: 5'11.00" Weight: 324lbs. 0.0oz. 146.766176td; 46.00 BMI Method:Stated General Appearance: WD/WN, no apparent distress Eyes: bilateral eye normal inspection, bilateral eye PERRL, bilateral eye EOMI Ears: bilateral ear auricle normal, bilateral ear canal normal, bilateral ear TM normal Nose: normal inspection; No active bleeding Mouth/Throat: other (gingivitis, dental caries but no abscess or airway derangement) Neck: non-tender, full range of motion Cardiovascular: normal peripheral pulses, regular rate, rhythm Respiratory: No chest non-tender; no respiratory distress, no accessory muscle use Neurologic/Psychiatric: alert, oriented x 3 Progress/Results/Core Measures Results/Orders My Orders Orders - DIANA RUIZ Ketorolac Injection (Toradol Injection) (09/16/19 08:30) Vital Signs/I&O 09/16/19 07:35 Temp 37.0 Pulse 77 Resp 16 B/P (MAP) 126/80 (95) Pulse Ox 98 O2 Delivery Room Air Blood Pressure Mean: 95 Progress Progress Note : Time: 08:23 Progress Note The gentleman re-presents because his pain is not under control. We've given counseling but will take 3-4 days on antibiotics to see good relief. He already has lidocaine. We'll add Magic mouthwash give him a shot of Toradol and put him on naproxen prescription strength. We have encouraged him to follow up with a dentist. Departure Impression Primary Impression: Dental abscess Additional Impression: Gingivitis Disposition: HOME, SELF-CARE Condition: Stable Departure-Patient Inst. Decision time for Depature: 08:24 Referrals: [facility] (PCP) Primary Care Physician NERISSA MARTINEZ (Family) Primary Care Physician Patient Instructions: Dental Pain (DC) Add. Discharge Instructions: Magic mouthwash twice a day for the next 7 days. Use a 30 mL or 1 ounce. Call and Follow-up with your dentist. Continue taking your antibiotics and expect improvement over the next few days. Naproxen prescription strength 500 mg 1 tablet twice a day as needed for pain. Do not combine with ibuprofen. Tylenol 1000 mg every 8 hours as needed for pain. Heating pads applied directly to the jaw. All discharge instructions reviewed with patient and/or family. Voiced understanding. Scripts Naproxen (Naprosyn) 500 Mg Tablet 500 MG PO BID PRN for PAIN-BREAKTHROUGH, #30 TAB 0 Refills Prov: DIANA RUIZ 09/16/19 Chlorhexidine Gluconate (Chlorhexidine Gluconate) 473 Ml Mouthwash 30 ML MM BID for 7 Days, #473 ML 0 Refills Prov: DIANA RUIZ 09/16/19 DIANA RUIZ Sep 16, 2019 08:24
[2019-09-16] MEDS ORDERED: NAPR-1071 PO (08:27)
[2019-09-16] MEDS ORDERED: CHLO473M MM (08:27)
[2019-09-16] MEDS ORDERED: KETOROLAC 60 MG/2 ML VIAL IM ONE (08:30)
[2019-09-16 08:47] VITALS: BP 134/77
== END 2019-09-16 08:47 | disposition home or self-care (01) ==
LOC: EDUNIT# 07:34 → ER 07:35
DX: K04.7 Periapical abscess without sinus (principal); K05.10 Chronic gingivitis, plaque induced; J45.909 Unspecified asthma, uncomplicated; I10 Essential (primary) hypertension; E11.40 Type 2 diabetes mellitus with diabetic neuropathy, unspecified; K21.9 Gastro-esophageal reflux disease without esophagitis; E66.01 Morbid (severe) obesity due to excess calories; F90.9 Attention-deficit hyperactivity disorder, unspecified type; F41.9 Anxiety disorder, unspecified; F32.9 Major depressive disorder, single episode, unspecified; Z88.5 Allergy status to narcotic agent; Z88.2 Allergy status to sulfonamides; Z68.42 Body mass index [BMI] 45.0-49.9, adult; Z88.1 Allergy status to other antibiotic agents; Z88.8 Allergy status to other drugs, medicaments and biological substances; Z79.4 Long term (current) use of insulin; Z82.49 Family history of ischemic heart disease and other diseases of the circulatory system
CPT/HCPCS: 96372; 99284

== ENCOUNTER 2020-01-29 03:42 | Emergency (ER) | payer OTHER, MEDICAID ==
[~2020-01-29] VITALS: Ht 177 cm; Wt 145.0 kg
[~2020-01-29 03:42] MED LIST changes: -FLUO20CA25 PO; +FLUO20CA46 PO; +METF500T19 PO; -METF500T8 PO; +NAPR-1071 PO; +NFCHLORHGL MM; +OMEP40CA27 PO; -OMEP40CA36 PO; +TRM50T PO
[2020-01-29] MEDS ORDERED: NS IV 1000 ML 1,000 ML IV SCH (03:53)
[2020-01-29] MEDS ORDERED: ONDANSETRON 4 MG/2 ML (SDV) Z0FRAN IVP ONE (04:00)
[2020-01-29] MEDS ORDERED: FAMOTIDINE 20MG/2ML IV (PEPCID) IVP ONE (04:00)
--- NOTE | 2020-01-29 04:00 | ED Abdominal Pain ---
General Chief Complaint: Abdominal/GI Problems Stated Complaint: N/V,CP AND ABD PAIN Source of Information: Patient Exam Limitations: No Limitations History of Present Illness Date Seen by Provider: January 29, 2020 Time Seen by Provider: 03:47 Initial Comments Patient presents ER by private conveyance with chief complaint for 5 hours upset stomach, epigastric pain and nausea vomiting. When he vomits he says he has pain in his midline chest that he associates with his history of esophagitis. 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 No history of coronary disease but he does have diabetes. He does not take Reglan or nausea medicines. He is on sucralfate and pantoprazole for history of GERD and reflux esophagitis. Is followed by Alfonso Jacobo at [facility]. He's had no diarrhea or constipation. He has a history of diverticulitis. No dysuria. He's had his gallbladder out many years ago and no other surgeries. He denies any fever, shortness of breath or chills. Other than try and drink some water he has not taken anything for his symptoms tonight. His last oral intake was just prior to his symptoms started he had a hamburger. Allergies and Home Medications Allergies Coded Allergies: sertraline (Verified Allergy, Severe, RASH, SWELLING, 01/20/16) "FELT LOOPY" bupropion (Verified Allergy, Unknown, "CAUSED ME TO BANG MY HEAD ON THE WALL", 01/20/16) buspirone (Verified Allergy, Unknown, THROAT SWELLED, 01/20/16) cephalexin (Verified Allergy, Unknown, HIVES, 01/20/16) codeine (Verified Allergy, Unknown, 01/20/16) sulfamethoxazole (Verified Adverse Reaction, Unknown, Itching, 09/15/19) trimethoprim (Verified Adverse Reaction, Unknown, Itching, 09/15/19) Home Medications Chlorhexidine Gluconate 473 Ml Mouthwash, 30 ML MM BID Prescribed by: DIANA RUIZ on 09/16/19826 Cinnamon Bark 500 Mg Capsule, 1,000 MG PO DAILY, (Reported) TAKES 2 (500MG) CAPSULES Doxycycline Hyclate 100 Mg Tablet, 100 MG PO BID Prescribed by: MAMIE MIDDLETON on 09/15/19 0042 Fluoxetine HCl 20 Mg Capsule, 20 MG PO DAILY, (Reported) TAKES IN ADDITION TO FLUOXETINE 40 MG DAILY FOR A TOTAL DOSE OF 60 MG Fluoxetine HCl 40 Mg Capsule, 40 MG PO DAILY, (Reported) TAKES IN ADDITION TO FLUOXETINE 20 MG DAILY FOR A TOTAL DOSE OF 60 MG Gabapentin 800 Mg Tablet, 800 MG PO TID, (Reported) Insulin Aspart 300 Units/3 Ml Solution, 60 UNITS SQ AC PRN for BLOOD SUGAR, (Reported) Insulin Degludec 200 Unit/1 Ml Insuln.pen, 160 UNIT SQ HS, (Reported) Lisinopril 20 Mg Tablet, 20 MG PO DAILY, (Reported) Metformin HCl 500 Mg Tab.er.24h, 1,000 MG PO BID, (Reported) TAKES 2 (500 MG) TABLETS Multivitamin 1 Each Tablet, 1 TAB PO DAILY, (Reported) Naproxen 500 Mg Tablet, 500 MG PO BID PRN for PAIN-BREAKTHROUGH Prescribed by: DIANA RUIZ on 09/16/19 0827 Mentor-3/Dha/Epa/Fish Oil 1 Each Capsule, 1,000 MG PO BID, (Reported) Omeprazole 40 Mg Capsule.dr, 40 MG PO DAILY, (Reported) Ondansetron 4 Mg Tab.rapdis, 4 MG PO Q6H PRN for NAUSEA/VOMITING Prescribed by: DIANA RUIZ on 11/09/18 1754 Ondansetron 4 Mg Tab.rapdis, 4 MG PO Q6H PRN for NAUSEA/VOMITING Prescribed by: DIANA RUIZ on 01/29/20 0503 Testosterone Cypionate 200 Mg/1 Ml Vial, 200 MG IM monthly, (Reported) Tramadol HCl 50 Mg Tablet, 50 MG PO Q6H PRN for PAIN Prescribed by: BRAXTON HOUSE on 05/28/19 1449 Patient Home Medication List Home Medication List Reviewed: Yes Review of Systems Review of Systems Constitutional: No chills, No diaphoresis EENTM: No Blurred Vision, No Double Vision Respiratory: Denies Cough, Denies Shortness of Air Cardiovascular: Denies Edema Gastrointestinal: See HPI; Denies Abdomen Distended; Abdominal Pain; Denies Constipated, Denies Diarrhea; Nausea, Poor Fluid Intake, Vomiting Genitourinary: Denies Burning, Denies Discharge, Denies Drainage Musculoskeletal: No back pain, No joint pain Skin: No pruritus, No rash Psychiatric/Neurological: Denies Headache, Denies Numbness All Other Systems Reviewed Negative Unless Noted: Yes Past Qyflnyh-Fmhczz-Kuwebw Hx Patient Social History Alcohol Use: Denies Use Recreational Drug Use: No Drug of Choice: HX OF MARIJUANA Smoking Status: Never a Smoker 2nd Hand Smoke Exposure: No Recent Foreign Travel: No Contact w/Someone Who Travel: No Recent Hopitalizations: No Immunizations Up To Date Tetanus Booster (TDap): More than 5yrs PED Vaccines UTD: No Seasonal Allergies Seasonal Allergies: No Past Medical History Surgeries: Yes (HYPOGONADISM INFANT) Gallbladder, Testicular Respiratory: Yes Asthma Currently Using CPAP: No Currently Using BIPAP: No Cardiac: Yes Hypertension, Palpitations Neurological: Yes Neuropathy Reproductive Disorders: Yes (HYPOGONADISM sx as an ) Sexually Transmitted Disease: No HIV/AIDS: No Genitourinary: No Gastrointestinal: Yes (DIVERTICULITIS) Gastroesophageal Reflux, Esophagitis Musculoskeletal: No Endocrine: Yes (MORBID OBESITY; DM TYPE 2 (INSULIN AND PO)) Diabetes, Insulin dep HEENT: No Loss of Vision: Denies Hearing Impairment: Denies Cancer: No Psychosocial: Yes ADD/ADHD, Anxiety, Depression Integumentary: No Blood Disorders: No Adverse Reaction/Blood Tranf: No Family Medical History Arthritis 19 MOTHER Congenital heart disease Diabetes mellitus 19 FATHER 19 MOTHER FH: brain aneurysm 19 FATHER (cause of - 09/13/2015) Glaucoma 19 FATHER Hypertension 19 FATHER 19 MOTHER Psychosocial problem 19 MOTHER (depression) No Pertinent Family Hx Physical Exam Vital Signs Vital Signs - First Documented 01/29/20 03:46 Temp 36.8 Pulse 116 Resp 22 B/P (MAP) 129/87 (101) Pulse Ox 97 O2 Delivery Room Air Capillary Refill : Height/Weight/BMI Height: 5'11.00" Weight: 324lbs. 0.0oz. [id number]; 46.00 BMI Method:Stated General Appearance: mild distress, obese HEENT: normal ENT inspection, pharynx normal Neck: full range of motion, normal inspection Respiratory: normal breath sounds, no accessory muscle use Cardiovascular: normal peripheral pulses, regular rate, rhythm Gastrointestinal: normal bowel sounds, non tender, soft, no organomegaly, other (negative for mesenteric signs) Extremities: normal range of motion, normal inspection, normal capillary refill Neurologic/Psychiatric: alert, normal mood/affect, oriented x 3 Progress/Results/Core Measures Results/Orders Lab Results Laboratory Tests Test 01/29/20 03:52 Range/Units White Blood Count 10.3 4.3-11.0 10^3/uL Red Blood Count 5.71 4.35-5.85 10^6/uL Hemoglobin 16.6 13.3-17.7 G/DL Hematocrit 47 40-54 % Mean Corpuscular Volume 82 80-99 FL Mean Corpuscular Hemoglobin 29 25-34 PG Mean Corpuscular Hemoglobin Concent 36 32-36 G/DL Red Cell Distribution Width 12.7 10.0-14.5 % Platelet Count 211 130-400 10^3/uL Mean Platelet Volume 11.1 H 7.4-10.4 FL Neutrophils (%) (Auto) 75 42-75 % Lymphocytes (%) (Auto) 19 12-44 % Monocytes (%) (Auto) 5 0-12 % Eosinophils (%) (Auto) 1 0-10 % Basophils (%) (Auto) 0 0-10 % Neutrophils # (Auto) 7.7 1.8-7.8 X 10^3 Lymphocytes # (Auto) 2.0 1.0-4.0 X 10^3 Monocytes # (Auto) 0.5 0.0-1.0 X 10^3 Eosinophils # (Auto) 0.1 0.0-0.3 10^3/uL Basophils # (Auto) 0.0 0.0-0.1 10^3/uL Sodium Level 134 L 135-145 MMOL/L Potassium Level 4.4 3.6-5.0 MMOL/L Chloride Level 101 98-107 MMOL/L Carbon Dioxide Level 19 L 21-32 MMOL/L Anion Gap 14 5-14 MMOL/L Blood Urea Nitrogen 18 7-18 MG/DL Creatinine 0.97 0.60-1.30 MG/DL Estimat Glomerular Filtration Rate > 60 BUN/Creatinine Ratio 19 Glucose Level 321 H 70-105 MG/DL Calcium Level 9.2 8.5-10.1 MG/DL Corrected Calcium 8.9 8.5-10.1 MG/DL Total Bilirubin 0.7 0.1-1.0 MG/DL Aspartate Amino Transf (AST/SGOT) 25 5-34 U/L Alanine Aminotransferase (ALT/SGPT) 36 0-55 U/L Alkaline Phosphatase 82 40-136 U/L C-Reactive Protein High Sensitivity 0.85 H 0.00-0.50 MG/DL Total Protein 7.4 6.4-8.2 GM/DL Albumin 4.4 3.2-4.5 GM/DL Lipase 20 8-78 U/L My Orders Orders - DIANA RUIZ Cbc With Automated Diff (01/29/20 03:53) Comprehensive Metabolic Panel (01/29/20 03:53) Lipase (01/29/20 03:53) Hs C Reactive Protein (01/29/20 03:53) Ed Iv/Invasive Line Start (01/29/20 03:53) Ns Iv 1000 Ml (Sodium Chloride 0.9%) (01/29/20 03:53) Famotidine Injection (Pepcid Injection) (01/29/20 04:00) Ondansetron Injection (Zofran Injectio (01/29/20 04:00) Metoclopramide Injection (Reglan Injecti (01/29/20 04:15) Insulin (Regular) Human (Humulin R (Per (01/29/20 04:30) Lidocaine 2% Viscous 15 Ml (Xylocaine Vi (01/29/20 05:00) Antacid Suspension (Mylanta Suspension (01/29/20 05:00) Medications Given in ED Current Medications Medications Dose Ordered Sig/Nikia Route Start Time Stop Time Status Last Admin Dose Admin Al Hydrox/Mg Hydrox/Simethicone 30 ml ONCE ONCE PO 01/29/20 05:00 01/29/20 05:01 DC 01/29/20 04:59 30 ML Famotidine 20 mg ONCE ONCE IVP 01/29/20 04:00 01/29/20 04:01 DC 01/29/20 04:00 20 MG Insulin Human Regular 10 unit ONCE ONCE SC 01/29/20 04:30 01/29/20 04:31 DC 01/29/20 04:29 10 UNIT Lidocaine HCl 15 ml ONCE ONCE PO 01/29/20 05:00 01/29/20 05:01 DC 01/29/20 04:59 15 ML Metoclopramide HCl 10 mg ONCE ONCE IVP 01/29/20 04:15 01/29/20 04:16 DC 01/29/20 04:29 10 MG Ondansetron HCl 8 mg ONCE ONCE IVP 01/29/20 04:00 01/29/20 04:01 DC 01/29/20 03:59 8 MG Vital Signs/I&O 01/29/20 03:46 Temp 36.8 Pulse 116 Resp 22 B/P (MAP) 129/87 (101) Pulse Ox 97 O2 Delivery Room Air Progress Progress Note #1: Time: 03:58 Progress Note Tachycardia could be related to dehydration, pain and anxiety. He presents with a non-acute abdomen and aseptic vital signs other than his tachycardia. Plan to give him a liter fluids and Pepcid as well as Zofran. With his nausea under control and they can try GI cocktail see if that helps with his pain. Is a strong history of GERD/gastritis and esophagitis. Basic labs to rule out significant inflammation or infection as well as pancreatitis. Progress Note #2: Time: 05:01 Progress Note Since the patient's been in the ER he has not had any vomiting however he has had some dry heaving so a dose of Reglan was given. His nausea is under control so we gave him a GI cocktail which took away all of his pain. He now has complaints that his neuropathy is acting up. We'll encourage him to go home and take his scheduled neuropathic medicines and follow-up with primary care. Repeat glucose 235. Patient missed his dose of gabapentin last night. Departure Impression Primary Impression: Chronic gastritis without bleeding Qualified Codes: K29.50 - Unspecified chronic gastritis without bleeding Disposition: HOME, SELF-CARE Condition: Stable Departure-Patient Inst. Decision time for Depature: 05:02 Referrals: [facility] (PCP) Primary Care Physician NERISSA JACOBO (Family) Primary Care Physician Patient Instructions: Gastritis (DC) Add. Discharge Instructions: Continue to take the medications prescribed you. Follow-up with your primary care doctor to discuss whether further intervention needs to be done. Call for an appointment this morning and request follow-up within the next couple weeks. Ondansetron one tablet under the tongue every 6 hours as needed for nausea or vomiting. All discharge instructions reviewed with patient and/or family. Voiced understanding. Scripts Ondansetron (Ondansetron Odt) 4 Mg Tab.rapdis 4 MG PO Q6H PRN for NAUSEA/VOMITING, #8 TAB 0 Refills Prov: DIANA RUIZ 01/29/20 DIANA RUIZ January 29, 2020 04:00
[2020-01-29 04:02] LABS: BASOPHILS % (AUTO) 0 % (0-10); EOSINOPHILS # (AUTO) 0.1 10^3/uL (0.0-0.3); EOSINOPHILS % (AUTO) 1 % (0-10); HEMATOCRIT 47 % (40-54); HEMOGLOBIN 16.6 G/DL (13.3-17.7); LYMPHOCYTES % (AUTO) 19 % (12-44); MEAN CORPUSCULAR HEMOGLOBIN 29 PG (25-34); MEAN CORPUSCULAR HGB CONC 36 G/DL (32-36); MEAN CORPUSCULAR VOLUME 82 FL (80-99); MEAN PLATELET VOLUME 11.1 FL (7.4-10.4); MONOCYTES # (AUTO) 0.5 X 10^3 (0.0-1.0); MONOCYTES % (AUTO) 5 % (0-12); NEUTROPHILS # (AUTO) 7.7 X 10^3 (1.8-7.8); NEUTROPHILS % (AUTO) 75 % (42-75); PLATELET COUNT 211 10^3/uL (130-400); RED CELL DISTRIBUTION WIDTH 12.7 % (10.0-14.5); WHITE BLOOD COUNT 10.3 10^3/uL (4.3-11.0)
[2020-01-29 04:11] LABS: ALBUMIN 4.4 GM/DL (3.2-4.5); CHLORIDE 101 MMOL/L (98-107); POTASSIUM 4.4 MMOL/L (3.6-5.0); SODIUM 134 MMOL/L (135-145)
[2020-01-29 04:12] LABS: CALCIUM 9.2 MG/DL (8.5-10.1)
[2020-01-29 04:13] LABS: GLUCOSE 321 MG/DL (70-105); TOTAL PROTEIN 7.4 GM/DL (6.4-8.2)
[2020-01-29 04:14] LABS: CARBON DIOXIDE 19 MMOL/L (21-32)
[2020-01-29 04:15] LABS: BILIRUBIN,TOTAL 0.7 MG/DL (0.1-1.0)
[2020-01-29] MEDS ORDERED: METOCLOPRAMIDE INJ 10 MG/2 ML (REGLAN) IVP ONE (04:15)
[2020-01-29 04:17] LABS: ALKALINE PHOSPHATASE 82 U/L (40-136); CREATININE SERUM 0.97 MG/DL (0.60-1.30); GFR ESTIMATED > 60
[2020-01-29 04:18] LABS: BUN/CREATININE RATIO 19
[2020-01-29 04:20] LABS: ALANINE AMINOTRANSFERASE 36 U/L (0-55); LIPASE 20 U/L (8-78)
[2020-01-29] MEDS ORDERED: inSUlin (REGULAR) HUMAN 1 UNIT/0.01 ML (CHARGE PER UNIT) SC ONE (04:30)
[2020-01-29] MEDS ORDERED: LIDOCAINE 2% VISCOUS 15 ML UDC PO ONE (05:00)
[2020-01-29] MEDS ORDERED: ANTACID SUSP 30 ML UDC (MYLANTA) PO ONE (05:00)
[2020-01-29] MEDS ORDERED: ONDA4TAB11 PO (05:03)
[2020-01-29 05:05] VITALS: BP 137/87
== END 2020-01-29 05:05 | disposition home or self-care (01) ==
LOC: EDUNIT# 03:42 → ER 03:44
DX: K29.50 Unspecified chronic gastritis without bleeding (principal); K21.0 Gastro-esophageal reflux disease with esophagitis; I10 Essential (primary) hypertension; E11.40 Type 2 diabetes mellitus with diabetic neuropathy, unspecified; E66.01 Morbid (severe) obesity due to excess calories; F90.9 Attention-deficit hyperactivity disorder, unspecified type; F32.9 Major depressive disorder, single episode, unspecified; F41.9 Anxiety disorder, unspecified; Z68.42 Body mass index [BMI] 45.0-49.9, adult; Z88.5 Allergy status to narcotic agent; Z88.2 Allergy status to sulfonamides; Z88.1 Allergy status to other antibiotic agents; Z88.8 Allergy status to other drugs, medicaments and biological substances; Z79.4 Long term (current) use of insulin; Z79.84 Long term (current) use of oral hypoglycemic drugs; Z82.49 Family history of ischemic heart disease and other diseases of the circulatory system
CPT/HCPCS: 36415; 80053; 82962; 83690; 85025; 86141

== ENCOUNTER 2020-04-11 05:35 | Outpatient (RCR) | payer OTHER, MEDICAID ==
[~2020-04-11] VITALS: Ht 177 cm; Wt 154.0 kg
[~2020-04-11 05:35] MED LIST changes: +AMLO10TA7 PO; +ATOR40TA70 PO; +CANA300T PO; +CETI10TA17 PO; +CHLO500T4 PO; +HYDR25TA4 PO; +IMIP50TA4 PO; +METF-865 PO; -METF500T19 PO; +METO-310 PO; +PANT40TA3 PO; +PARO40TA3 PO; +PIOG45TA7 PO; +ZOLP10TA PO
== END 2020-04-11 12:40 | disposition home or self-care (01) ==
LOC: PREOP 05:35
PROVIDERS: ATTEND Surgery
DX: Z01.812 Encounter for preprocedural laboratory examination (principal); K74.60 Unspecified cirrhosis of liver; Z20.828 Contact with and (suspected) exposure to other viral communicable diseases
CPT/HCPCS: 87635

== ENCOUNTER 2020-04-15 08:40 | Day surgery (SDC) | payer MEDICARE, MEDICAID ==
[2020-04-15] VITALS (8 sets, daily range): BP systolic 127–146; BP diastolic 61–88
[~2020-04-15] VITALS: Ht 177 cm; Wt 154.0 kg
[2020-04-15] MEDS ORDERED: LACTATED RINGERS 1,000 ML IV ONE (08:49)
[2020-04-15] MEDS ORDERED: LACTATED RINGERS 1,000 ML IV STA (08:53)
[2020-04-15] MEDS ORDERED: HURRICAINE EXT TUBE (BENZOCAINE) XX PRN (09:00)
--- NOTE | 2020-04-15 10:38 | Progress Note-Pre Operative ---
Pre-Operative Progress Note H&P Reviewed The H&P was reviewed, patient examined and no changes noted. Time Seen by Provider: 10:36 Date H&P Reviewed: Apr 15, 2020 Time H&P Reviewed: 10:34 Pre-Operative Diagnosis: Epigastric pain, Gastritis FARAZ DE LEON DO Apr 15, 2020 10:38
[2020-04-15] MEDS ORDERED: PROPOFOL INJECTION 50 ML IV ONE (11:04)
[2020-04-15] MEDS ORDERED: MIDAZOLAM 2 MG/2 ML (VERSED) VIAL ONE (11:05)
--- NOTE | 2020-04-15 11:22 | Progress Note-Post Operative ---
Post-Operative Progess Note Surgeon (s)/Clinic Office Coordinator (s) Surgeon FARAZ DE LEON DO Clinic Office Coordinator: none Pre-Operative Diagnosis Epigastric pain, Gastritis Post-Operative Diagnosis Gastritis Esophagitis Procedure & Operative Findings Date of Procedure 04/15/20 Procedure Performed/Findings EGD with bx Anesthesia Type IV sedation by PREVENTIVE MEDICINE OFFICER Estimated Blood Loss Estimated blood loss (mL): scant Specimens/Packing Specimens Removed antral bx body of stomach bx GE jxn bx AFRAZ DE LEON DO Apr 15, 2020 11:22
--- NOTE | 2020-04-15 11:23 | Endoscopy Discharge Instruct ---
Endo Procedure/Findings Findings 1.: Gastritis 2.: Other Findings (Esophagitis) Discharge Instructions - Activity: You might feel a little sleepy until tomorrow. This is due to the medicine you received to relax you. Until tomorrow, you should: NOT drive a car, operate machinery or power tools. NOT drink any alcoholic beverages. NOT make any important decisions or sign importortant papers. Do not return to work until tomorrow, unless otherwise instructed. Resume previous activities tomorrow. Diet: Start by taking liquids. If you tolerate liquids, advance to solid food. make appt for one week. 1.: EGD in 1 year Notify Physician - If you experience excessive bleeding, unusual abdominal pain, fever, or chest pain, contact your doctor immediately. FARAZ DE LEON DO Apr 15, 2020 11:23
--- NOTE | 2020-04-15 12:48 | Anesthesia-General Post-Op ---
MAC Patient Condition Mental Status/LOC: Same as Preop Cardiovascular: Satisfactory Nausea/Vomiting: Absent Respiratory: Satisfactory Pain: Controlled Complications: Absent Post Op Complications Complications None Follow Up Care/Instructions Patient Instructions None needed. Anesthesiology Discharge Order Discharge Order Patient is doing well, no complaints, stable vital signs, no apparent adverse anesthesia problems. No complications reported per nursing. ARABELLA BAILEY CRNA Apr 15, 2020 12:48
--- NOTE | 2020-04-15 23:51 | OPERATIVE REPORT ---
DATE OF SERVICE: 04/15/2020 PREOPERATIVE DIAGNOSES: Epigastric pain and gastritis. POSTOPERATIVE DIAGNOSES: Gastritis, esophagitis. PROCEDURE: EGD with biopsy. SURGEON: Familia Dc DO DROP WIRER: None. ANESTHESIA: IV sedation by the INSOLE COVERER. SPECIMEN: Antral biopsy, body of stomach, biopsy, GE junction biopsy. BLOOD LOSS: Scant. FLUIDS: Per anesthesia. POSTOPERATIVE CONDITION: Stable. INDICATION FOR PROCEDURE: The patient is a 40-year-old male who has been having epigastric pain and gastritis, needed a workup. FINDINGS: The patient had some pretty severe gastritis and some mild esophagitis creeping up of the Z line. Biopsy done. Pictures taken. PROCEDURE NOTE: After informed consent was obtained, the patient was brought to the endoscopy suite, placed in bed in left lateral decubitus position. He was administered IV sedation by the INSOLE COVERER who then monitored his vitals the entire time, heart rate, blood pressure and pulse ox and the scope was inserted down the mouth through the esophagus into the stomach. Upon entering the stomach, noted some pretty severe gastritis, took a picture, pushed into the duodenum. Duodenum looked fine. Pulled back and did a biopsy of the antrum. Retroflexed the scope, did a biopsy of the body of stomach and then pulled the scope into the GE junction, saw some creeping up of the Z line, this looked like some esophagitis and a couple biopsies of the GE junction were done. Pushed the scope back into the stomach, suctioned all the air out and then pulled the scope up the esophagus and out the mouth. The patient tolerated the procedure. He was recovered in endoscopy suite. Job ID: [id number] DocumentID: [id number] Dictated Date: 04/15/2020 22:42:36 Commercial Stripper Date: 04/15/2020 23:50:40 Dictated By: FAMILIA DC DO
== END 2020-04-15 12:35 | disposition home or self-care (01) ==
LOC: ENDO 08:40
PROVIDERS: ATTEND Surgery
DX: K20.9 Esophagitis, unspecified (principal); K29.70 Gastritis, unspecified, without bleeding; K76.0 Fatty (change of) liver, not elsewhere classified; I10 Essential (primary) hypertension; E78.5 Hyperlipidemia, unspecified; K21.9 Gastro-esophageal reflux disease without esophagitis; E11.42 Type 2 diabetes mellitus with diabetic polyneuropathy; E66.01 Morbid (severe) obesity due to excess calories; F90.9 Attention-deficit hyperactivity disorder, unspecified type; Z68.42 Body mass index [BMI] 45.0-49.9, adult; Z79.891 Long term (current) use of opiate analgesic; Z88.1 Allergy status to other antibiotic agents; Z88.8 Allergy status to other drugs, medicaments and biological substances; Z79.899 Other long term (current) drug therapy; Z79.4 Long term (current) use of insulin; Z90.49 Acquired absence of other specified parts of digestive tract
CPT/HCPCS: 82962; 88305

== ENCOUNTER 2020-11-15 06:54 | Emergency (ER) | payer MEDICARE, MEDICAID ==
[~2020-11-15] VITALS: Ht 177.8 cm; Wt 149.6 kg
[~2020-11-15 06:54] MED LIST changes: -ALPR0.254 PO; +AMLO-251 PO; -AMLO10TA7 PO; -LISI-552 PO; -LISI10TA2 PO; +LISI10TA25 PO; +LISI20TA26 PO; -PANT40TA3 PO; +PANT40TA52 PO
--- NOTE | 2020-11-15 07:20 | ED General ---
General Stated Complaint: ABD PAIN,BURNING PAIN,BACK PAIN,BLOOD IN STOOLS Source of Information: Patient History of Present Illness Date Seen by Provider: Nov 15, 2020 Time Seen by Provider: 07:20 Initial Comments 40-year-old male presents with some abdominal pain/burning for the last couple days. Reports he thinks he has had some blood in his stool. Patient reports he has a history of diverticulitis and this is similar to his presentation. He has little bit of pain in his lower back. No nausea or vomiting. He does report some diarrhea. Reports that he has had a clear liquid diet for the last couple days and then started some food last night and the cramping was a little bit worse. He denies any urinary symptoms. No other systemic complaints Allergies and Home Medications Allergies Coded Allergies: sertraline (Verified Allergy, Severe, RASH, SWELLING, 04/09/20) "FELT LOOPY" bupropion (Verified Allergy, Unknown, "CAUSED ME TO BANG MY HEAD ON THE WALL", 04/09/20) buspirone (Verified Allergy, Unknown, THROAT SWELLED, 04/09/20) cephalexin (Verified Allergy, Unknown, HIVES, 04/09/20) codeine (Verified Allergy, Unknown, 04/09/20) sulfamethoxazole (Verified Adverse Reaction, Unknown, Itching, 04/09/20) trimethoprim (Verified Adverse Reaction, Unknown, Itching, 04/09/20) Home Medications Amlodipine Besylate 10 Mg Tablet, 10 MG PO DAILY, (Reported) Atorvastatin Calcium 40 Mg Tablet, 40 MG PO DAILY, (Reported) Canagliflozin 300 Mg Tablet, 300 MG PO DAILY, (Reported) Cetirizine HCl 10 Mg Tablet, 10 MG PO DAILY, (Reported) Chlorzoxazone 500 Mg Tablet, 500 MG PO TID PRN for SPASMS, (Reported) Gabapentin 800 Mg Tablet, 800 MG PO QID, (Reported) Hydrochlorothiazide 25 Mg Tablet, 50 MG PO DAILY, (Reported) Imipramine HCl 50 Mg Tablet, 50 MG PO DAILY, (Reported) Insulin Aspart 300 Units/3 Ml Solution, 60 UNITS SQ AC PRN for BLOOD SUGAR, (Reported) Insulin Degludec 200 Unit/1 Ml Insuln.pen, 160 UNIT SQ HS, (Reported) Lisinopril 20 Mg Tablet, 20 MG PO DAILY, (Reported) Metformin HCl 500 Mg Tab.er.24h, 1,000 MG PO BID, (Reported) TAKES 2 (500 MG) TABLETS Metoclopramide HCl 10 Mg Tablet, 10 MG PO BID, (Reported) Pantoprazole Sodium 40 Mg Tablet.dr, 40 MG PO DAILY, (Reported) Paroxetine HCl 40 Mg Tablet, 40 MG PO DAILY, (Reported) Pioglitazone HCl 45 Mg Tablet, 45 MG PO DAILY, (Reported) Zolpidem Tartrate 10 Mg Tablet, 10 MG PO HS PRN for INSOMNIA, (Reported) Patient Home Medication List Home Medication List Reviewed: Yes Review of Systems Review of Systems Constitutional: No chills, No fever Respiratory: No cough, No short of breath Cardiovascular: No chest pain, No palpitations Gastrointestinal: abdominal pain, diarrhea; No melena, No nausea, No vomiting Genitourinary: no symptoms reported Musculoskeletal: see HPI Skin: no symptoms reported Psychiatric/Neurological: No Symptoms Reported Hematologic/Lymphatic: No Symptoms Reported Past Lgnqeay-Knvzpd-Iykney Hx Past Med/Social Hx: Reviewed Nursing Past Med/Soc Hx Patient Social History Drug of Choice: HX OF MARIJUANA 2nd Hand Smoke Exposure: No Recent Hopitalizations: No Immunizations Up To Date Tetanus Booster (TDap): More than 5yrs PED Vaccines UTD: No Seasonal Allergies Seasonal Allergies: Yes Past Medical History Surgeries: Yes (HYPOGONADISM INFANT) Gallbladder, Testicular Respiratory: No Asthma Currently Using CPAP: No Currently Using BIPAP: No Cardiac: Yes High Cholesterol, Hypertension, Palpitations Neurological: Yes Neuropathy Reproductive Disorders: Yes (HYPOGONADISM sx as an infant) Sexually Transmitted Disease: No HIV/AIDS: No Genitourinary: No Gastrointestinal: Yes Gastroesophageal Reflux, Diverticulosis, Esophagitis Musculoskeletal: Yes Arthritis Endocrine: Yes (MORBID OBESITY; DM TYPE 2 (INSULIN AND PO)) Diabetes, Insulin dep HEENT: Yes (GLASSES) Loss of Vision: Denies Hearing Impairment: Denies Cancer: No Psychosocial: Yes ADD/ADHD, Anxiety, Depression Integumentary: No Blood Disorders: No Adverse Reaction/Blood Tranf: No (N/A) Family Medical History Arthritis 19 MOTHER Congenital heart disease Diabetes mellitus 19 FATHER 19 MOTHER FH: brain aneurysm 19 FATHER (cause of - 09/13/2015) Glaucoma 19 FATHER Hypertension 19 FATHER 19 MOTHER Psychosocial problem 19 MOTHER (depression) No Pertinent Family Hx Physical Exam Vital Signs Vital Signs - First Documented 11/15/20 07:18 Temp 36.7 Pulse 111 Resp 20 B/P (MAP) 160/104 (122) Pulse Ox 95 O2 Delivery Room Air Capillary Refill : Height, Weight, BMI Height: 5'11.00" Weight: 324lbs. 0.0oz. 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 Norm as Tested Skin: Normal Color, Warm/Dry Progress/Results/Core Measures Suspected Sepsis SIRS Temperature: Pulse: Respiratory Rate: Laboratory Tests 11/15/20 07:28: White Blood Count 8.2 Blood Pressure / Mean: Laboratory Tests 11/15/20 07:28: Creatinine 0.97, INR Comment 0.9, Platelet Count 224, Total Bilirubin 0.6 Results/Orders Lab Results Laboratory Tests Test 11/15/20 07:28 11/15/20 08:05 Range/Units White Blood Count 8.2 4.3-11.0 10^3/uL Red Blood Count 5.45 4.30-5.52 10^6/uL Hemoglobin 16.1 13.3-17.7 g/dL Hematocrit 45 40-54 % Mean Corpuscular Volume 83 80-99 fL Mean Corpuscular Hemoglobin 30 25-34 pg Mean Corpuscular Hemoglobin Concent 36 32-36 g/dL Red Cell Distribution Width 12.8 10.0-14.5 % Platelet Count 224 130-400 10^3/uL Mean Platelet Volume 11.3 9.0-12.2 fL Immature Granulocyte % (Auto) 2 % Neutrophils (%) (Auto) 57 42-75 % Lymphocytes (%) (Auto) 30 12-44 % Monocytes (%) (Auto) 9 0-12 % Eosinophils (%) (Auto) 1 0-10 % Basophils (%) (Auto) 1 0-10 % Neutrophils # (Auto) 4.7 1.8-7.8 10^3/uL Lymphocytes # (Auto) 2.4 1.0-4.0 10^3/uL Monocytes # (Auto) 0.8 0.0-1.0 10^3/uL Eosinophils # (Auto) 0.1 0.0-0.3 10^3/uL Basophils # (Auto) 0.0 0.0-0.1 10^3/uL Immature Granulocyte # (Auto) 0.2 H 0.0-0.1 10^3/uL Prothrombin Time 12.8 12.2-14.7 SEC INR Comment 0.9 0.8-1.4 Activated Partial Thromboplast Time 30 24-35 SEC Sodium Level 131 L 135-145 MMOL/L Potassium Level 4.4 3.6-5.0 MMOL/L Chloride Level 99 98-107 MMOL/L Carbon Dioxide Level 20 L 21-32 MMOL/L Anion Gap 12 5-14 MMOL/L Blood Urea Nitrogen 21 H 7-18 MG/DL Creatinine 0.97 0.60-1.30 MG/DL Estimat Glomerular Filtration Rate > 60 BUN/Creatinine Ratio 22 Glucose Level 378 H 70-105 MG/DL Calcium Level 10.1 8.5-10.1 MG/DL Corrected Calcium 10.0 8.5-10.1 MG/DL Total Bilirubin 0.6 0.1-1.0 MG/DL Aspartate Amino Transf (AST/SGOT) 16 5-34 U/L Alanine Aminotransferase (ALT/SGPT) 35 0-55 U/L Alkaline Phosphatase 65 40-136 U/L C-Reactive Protein High Sensitivity 0.71 H 0.00-0.50 MG/DL Total Protein 7.1 6.4-8.2 GM/DL Albumin 4.1 3.2-4.5 GM/DL Lipase 33 8-78 U/L Urine Color YELLOW Urine Clarity CLEAR Urine pH 5.5 5-9 Urine Specific [place] 1.010 L 1.016-1.022 Urine Protein NEGATIVE NEGATIVE Urine Glucose (UA) 2+ H NEGATIVE Urine Ketones 1+ H NEGATIVE Urine Nitrite NEGATIVE NEGATIVE Urine Bilirubin NEGATIVE NEGATIVE Urine Urobilinogen 0.2 < = 1.0 MG/DL Urine Leukocyte Esterase NEGATIVE NEGATIVE Urine RBC (Auto) NEGATIVE NEGATIVE Urine RBC NONE /HPF Urine WBC NONE /HPF Urine Squamous Epithelial Cells RARE /HPF Urine Crystals NONE /LPF Urine Bacteria NEGATIVE /HPF Urine Casts NONE /LPF Urine Mucus NEGATIVE /LPF Urine Culture Indicated NO My Orders Orders - RIVERAJENNIFERYVONNE L DO Abdomen, Flat & Upright/Decub (11/15/20 07:24) Cbc With Automated Diff (11/15/20 07:24) Comprehensive Metabolic Panel (11/15/20 07:24) Hs C Reactive Protein (11/15/20 07:24) Lipase (11/15/20 07:24) Protime With Inr (11/15/20 07:24) Partial Thromboplastin Time (11/15/20 07:24) Ua Culture If Indicated (11/15/20 07:24) Ed Iv/Invasive Line Start (11/15/20 07:24) Pantoprazole Injection (Protonix Injecti (11/15/20 07:30) Medications Given in ED Current Medications Medications Dose Ordered Sig/Nikia Route Start Time Stop Time Status Last Admin Dose Admin Pantoprazole 40 mg ONCE ONCE IV 11/15/20 07:30 11/15/20 07:31 DC 11/15/20 07:53 40 MG Vital Signs/I&O 11/15/20 07:18 Temp 36.7 Pulse 111 Resp 20 B/P (MAP) 160/104 (122) Pulse Ox 95 O2 Delivery Room Air Capillary Refill : Progress Note : Time: 08:31 Progress Note Patient with normal hemoglobin, negative rectal exam for blood. X-ray was negative he had a mild increase in CRP. Based on his symptoms and labs and exam do not feel a CT is warranted at this time as risk does not outweigh the benefit. Patient agreed with a trial of antibiotics for diverticulitis since this is similar to his previous presentation. Recommended another 24 hours a clear liquid diet and advance as tolerated. Patient stable and will be discharged Departure Impression Primary Impression: Diverticulitis of intestine Qualified Codes: K57.92 - Diverticulitis of intestine, part unspecified, without perforation or abscess without bleeding Disposition: 01 HOME, SELF-CARE Condition: Stable Departure-Patient Inst. Referrals: [facility] (PCP) Primary Care Physician NERISSA MARTINEZ (Family) Primary Care Physician Patient Instructions: Severe Abdominal Pain, Adult (DC), Diverticulosis (DC) Scripts Metronidazole (Metronidazole) 500 Mg Tablet 500 MG PO BID, #14 TAB 0 Refills Prov: RIVERA,YVONNE L DO 11/15/20 Ciprofloxacin HCl (Ciprofloxacin HCl) 500 Mg Tablet 500 MG PO BID, #14 TAB Prov: YVONNE RIVERA DO 11/15/20 YVONNE RIVERA DO Nov 15, 2020 07:20
[2020-11-15] MEDS ORDERED: PANTOPRAZOLE 40 MG (PROTONIX) VIAL IV ONE (07:30)
[2020-11-15 07:49] LABS: BASOPHILS % (AUTO) 1 % (0-10); EOSINOPHILS # (AUTO) 0.1 10^3/uL (0.0-0.3); EOSINOPHILS % (AUTO) 1 % (0-10); HEMATOCRIT 45 % (40-54); HEMOGLOBIN 16.1 g/dL (13.3-17.7); LYMPHOCYTES # (AUTO) 2.4 10^3/uL (1.0-4.0); LYMPHOCYTES % (AUTO) 30 % (12-44); MEAN CORPUSCULAR HEMOGLOBIN 30 pg (25-34); MEAN CORPUSCULAR HGB CONC 36 g/dL (32-36); MEAN CORPUSCULAR VOLUME 83 fL (80-99); MEAN PLATELET VOLUME 11.3 fL (9.0-12.2); MONOCYTES # (AUTO) 0.8 10^3/uL (0.0-1.0); MONOCYTES % (AUTO) 9 % (0-12); NEUTROPHILS # (AUTO) 4.7 10^3/uL (1.8-7.8); NEUTROPHILS % (AUTO) 57 % (42-75); PLATELET COUNT 224 10^3/uL (130-400); WHITE BLOOD COUNT 8.2 10^3/uL (4.3-11.0)
--- NOTE | 2020-11-15 07:52 | Diagnostic Imaging Report ---
INDICATION: Abdominal pain COMPARISON: 05/14/2019 TECHNIQUE: 2 radiographs of the abdomen dated 11/15/2020. FINDINGS: The visualized lung bases are clear. Small amount of bowel gas is noted within the upper abdomen, though there is a generalized paucity of small bowel gas. This however appears similar to the prior examination. No definite dilated loops of bowel. No differential air-fluid levels. No free air. No suspicious calcifications overlying the renal shadows. No acute osseous abnormality. IMPRESSION: Nonspecific bowel gas pattern without definite free air or bowel obstruction. Dictated by: Dictated on workstation # [id number]
[2020-11-15 07:56] LABS: ALBUMIN 4.1 GM/DL (3.2-4.5); CHLORIDE 99 MMOL/L (98-107); POTASSIUM 4.4 MMOL/L (3.6-5.0); SODIUM 131 MMOL/L (135-145)
[2020-11-15 07:57] LABS: CALCIUM 10.1 MG/DL (8.5-10.1)
[2020-11-15 07:59] LABS: GLUCOSE 378 MG/DL (70-105); TOTAL PROTEIN 7.1 GM/DL (6.4-8.2)
[2020-11-15 08:00] LABS: CARBON DIOXIDE 20 MMOL/L (21-32); INR 0.9 (0.8-1.4); PROTHROMBIN TIME PATIENT 12.8 SEC (12.2-14.7)
[2020-11-15 08:01] LABS: BILIRUBIN,TOTAL 0.6 MG/DL (0.1-1.0)
[2020-11-15 08:02] LABS: ALKALINE PHOSPHATASE 65 U/L (40-136); CREATININE SERUM 0.97 MG/DL (0.60-1.30); GFR ESTIMATED > 60
[2020-11-15 08:03] LABS: BUN/CREATININE RATIO 22
[2020-11-15 08:05] LABS: ALANINE AMINOTRANSFERASE 35 U/L (0-55)
[2020-11-15 08:06] LABS: LIPASE 33 U/L (8-78)
[2020-11-15 08:10] LABS: BILIRUBIN,URINE NEGATIVE (NEGATIVE); CLARITY,URINE CLEAR; COLOR,URINE YELLOW; GLUCOSE, URINE (UA) 2+ (NEGATIVE); KETONES,URINE 1+ (NEGATIVE); LEUKOCYTE ESTERASE ,URINE NEGATIVE (NEGATIVE); NITRITE,URINE NEGATIVE (NEGATIVE); PH,URINE 5.5 (5-9); PROTEIN,URINE NEGATIVE (NEGATIVE)
[2020-11-15 08:17] LABS: BACTERIA,URINE NEGATIVE /HPF; SQUAMOUS EPITHELIAL CELL,UR RARE /HPF
[2020-11-15] MEDS ORDERED: CIPR500T5 PO (08:33)
[2020-11-15] MEDS ORDERED: METR-145 PO (08:33)
[2020-11-15 08:44] VITALS: BP 154/98
== END 2020-11-15 08:43 | disposition home or self-care (01) ==
LOC: EDUNIT# 06:54 → ER 06:57
DX: K57.92 Diverticulitis of intestine, part unspecified, without perforation or abscess without bleeding (principal); E66.01 Morbid (severe) obesity due to excess calories; E78.00 Pure hypercholesterolemia, unspecified; I10 Essential (primary) hypertension; E11.9 Type 2 diabetes mellitus 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; F41.9 Anxiety disorder, unspecified; F32.9 Major depressive disorder, single episode, unspecified; K21.9 Gastro-esophageal reflux disease without esophagitis; Z68.42 Body mass index [BMI] 45.0-49.9, adult; Z88.5 Allergy status to narcotic agent; Z88.2 Allergy status to sulfonamides; Z88.1 Allergy status to other antibiotic agents; Z88.8 Allergy status to other drugs, medicaments and biological substances; Z82.61 Family history of arthritis; Z83.3 Family history of diabetes mellitus; Z82.49 Family history of ischemic heart disease and other diseases of the circulatory system; Z79.4 Long term (current) use of insulin
CPT/HCPCS: 36415; 74019; 80053; 81000; 82274; 83690; 85025; 85610; 85730; 86141

== ENCOUNTER 2020-12-03 18:28 | Observation (INO) | payer MEDICARE, MEDICAID ==
[~2020-12-03] VITALS: Ht 177 cm; Wt 150.6 kg
[2020-12-03] VITALS (7 sets, daily range): BP systolic 122–154; BP diastolic 64–98
[~2020-12-03 18:28] MED LIST changes: +CIPR500T5 PO; +METR-145 PO
[2020-12-03] MEDS ORDERED: ASPIRIN 81 MG CHEW (CHILDREN'S ASA) PO ONE (18:45)
--- NOTE | 2020-12-03 18:54 | ED Chest Pain ---
General Stated Complaint: CHEST PAIN , JAW PAIN , DIZZY Source: patient (DOES NOT KNOW ANY OF HIS MEDICATIONS), old records History of Present Illness Date Seen by Provider: Dec 03, 2020 Time Seen by Provider: 18:35 Initial Comments PT ARRIVES VIA POV FROM HOME C/O MID CHEST PAIN OFF AND ON FOR 3 DAYS PAIN RADIATES TO BOTH LOWER JAWS AND BOTH ARMPITS AND ALSO TO UPPER BACK/BETWEEN SHOULDER BLADES RATES PAIN 8/10 AT WORST, RATES 3/10 NOW NOTHING WORSENS OR IMPROVES PAIN HAS SHORTNESS OF BREATH WITH THE CHEST PAIN NO SWEATS + NAUSEA LAST PM WITH PAIN, NO VOMITING NO SWELLING IN LEGS/ FEET OR PAIN IN CALVES NO PALPITATIONS NO DIZZINESS OR SYNCOPE SLIGHT SORE THROAT NO LOSS OF TASTE OR SMELL, BUT HAS HAD A "WEIRD TASTE" IN MOUTH FOR 3-4 DAYS WENT TO [facility] AROUND 11:00 AM TODAY, HAD EKG DONE, NO OTHER TESTS. TOLD TO GO TO ER IF IT GOT WORSE PAIN IS NOT ACTUALLY ANY WORSE, JUST KEEPS COMING AND GOING. HAS BEEN TAKING [place] FOR THE LAST 4-5 DAYS--THOUGHT IT WAS ACID REFLUX. PT IS INSULIN DEPENDENT DIABETIC, NEVER CHECKS BLOOD SUGAR. SEEN HERE 11/15/20 FOR DIVERTICULITIS. NO KNOWN EXPOSURE TO COVID-19 PT DOES NOT WORK AND LIVES ALONE WITH 3 CATS PCP: ABBY. Allergies and Home Medications Allergies Coded Allergies: sertraline (Verified Allergy, Severe, RASH, SWELLING, 04/09/20) "FELT LOOPY" bupropion (Verified Allergy, Unknown, "CAUSED ME TO BANG MY HEAD ON THE WALL", 04/09/20) buspirone (Verified Allergy, Unknown, THROAT SWELLED, 04/09/20) cephalexin (Verified Allergy, Unknown, HIVES, 04/09/20) codeine (Verified Allergy, Unknown, 04/09/20) sulfamethoxazole (Verified Adverse Reaction, Unknown, Itching, 04/09/20) trimethoprim (Verified Adverse Reaction, Unknown, Itching, 04/09/20) Home Medications Amlodipine Besylate 10 Mg Tablet, 10 MG PO DAILY, (Reported) Atorvastatin Calcium 40 Mg Tablet, 40 MG PO DAILY, (Reported) Canagliflozin 300 Mg Tablet, 300 MG PO DAILY, (Reported) Cetirizine HCl 10 Mg Tablet, 10 MG PO DAILY, (Reported) Chlorzoxazone 500 Mg Tablet, 500 MG PO TID PRN for SPASMS, (Reported) Gabapentin 800 Mg Tablet, 800 MG PO QID, (Reported) Hydrochlorothiazide 25 Mg Tablet, 50 MG PO DAILY, (Reported) Imipramine HCl 50 Mg Tablet, 50 MG PO DAILY, (Reported) Insulin Aspart 300 Units/3 Ml Solution, 60 UNITS SQ AC PRN for BLOOD SUGAR, (Reported) Insulin Degludec 200 Unit/1 Ml Insuln.pen, 160 UNIT SQ HS, (Reported) Lisinopril 20 Mg Tablet, 20 MG PO DAILY, (Reported) Metformin HCl 500 Mg Tab.er.24h, 1,000 MG PO BID, (Reported) TAKES 2 (500 MG) TABLETS Metoclopramide HCl 10 Mg Tablet, 10 MG PO BID, (Reported) Pantoprazole Sodium 40 Mg Tablet.dr, 40 MG PO DAILY, (Reported) Paroxetine HCl 40 Mg Tablet, 40 MG PO DAILY, (Reported) Pioglitazone HCl 45 Mg Tablet, 45 MG PO DAILY, (Reported) Zolpidem Tartrate 10 Mg Tablet, 10 MG PO HS PRN for INSOMNIA, (Reported) Patient Home Medication List Home Medication List Reviewed: Yes Review of Systems Review of Systems Constitutional: no symptoms reported; No chills, No diaphoresis, No dizziness, No fever, No malaise, No weakness EENTM: See HPI Respiratory: See HPI, Shortness of Air Cardiovascular: See HPI, Chest Pain; Denies Edema, Denies Irregular Heart Rate, Denies Lightheadedness, Denies Palpitations, Denies Syncope Gastrointestinal: See HPI; Denies Abdominal Pain; Nausea; Denies Vomiting Genitourinary: No Symptoms Reported Musculoskeletal: see HPI Skin: no symptoms reported Psychiatric/Neurological: No Symptoms Reported Endocrine: See HPI Hematologic/Lymphatic: No Symptoms Reported Past Wepkwhx-Qwomzk-Mauezf Hx Past Med/Social Hx: Reviewed and Corrections made Patient Social History Alcohol Use: Denies Use Drug of Choice: HX OF MARIJUANA Smoking Status: Never a Smoker 2nd Hand Smoke Exposure: No Recent Hopitalizations: No Immunizations Up To Date Tetanus Booster (TDap): More than 5yrs PED Vaccines UTD: No Seasonal Allergies Seasonal Allergies: Yes Past Medical History Surgeries: Yes (HYPOGONADISM SURGERY INFANT; ENDOSCOPIES) Gallbladder, Testicular Respiratory: Yes Asthma Currently Using CPAP: No Currently Using BIPAP: No Cardiac: Yes High Cholesterol, Hypertension, Palpitations Neurological: Yes Neuropathy Reproductive Disorders: Yes (HYPOGONADISM sx as an infant) Sexually Transmitted Disease: No HIV/AIDS: No Genitourinary: No Gastrointestinal: Yes (ENDOSCOPIES) Gastroesophageal Reflux, Diverticulosis, Esophagitis Musculoskeletal: Yes Arthritis Endocrine: Yes (MORBID OBESITY; DM TYPE 2 (INSULIN AND PO)) Diabetes, Insulin dep HEENT: Yes (GLASSES) Loss of Vision: Denies Hearing Impairment: Denies Cancer: No Psychosocial: Yes ADD/ADHD, Anxiety, Depression Integumentary: No Blood Disorders: No Adverse Reaction/Blood Tranf: No (N/A) Family Medical History Arthritis 19 MOTHER Congenital heart disease Diabetes mellitus 19 FATHER 19 MOTHER FH: brain aneurysm 19 FATHER (cause of - 09/13/2015) Glaucoma 19 FATHER Hypertension 19 FATHER 19 MOTHER Psychosocial problem 19 MOTHER (depression) No Pertinent Family Hx Physical Exam Vital Signs Vital Signs - First Documented 12/03/20 18:40 Temp 36.4 Pulse 87 Resp 14 B/P (MAP) 146/91 (109) Pulse Ox 96 O2 Delivery Room Air Capillary Refill : Height, Weight, BMI Height: 5'11.00" Weight: 324lbs. 0.0oz. 146.197012jm; 47.00 BMI Method:Stated General Appearance: No Apparent Distress, Obese (MORBIDLY OBESE WITH SIGNIFICANT TRUNCAL OBESITY. 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 Norm as Tested Skin: Normal Color, Warm/Dry; No Rash Progress/Results/Core Measures Results/Orders Lab Results Laboratory Tests Test 12/03/20 18:49 12/03/20 19:39 Range/Units White Blood Count 7.7 4.3-11.0 10^3/uL Red Blood Count 4.98 4.30-5.52 10^6/uL Hemoglobin 15.1 13.3-17.7 g/dL Hematocrit 43 40-54 % Mean Corpuscular Volume 86 80-99 fL Mean Corpuscular Hemoglobin 30 25-34 pg Mean Corpuscular Hemoglobin Concent 35 32-36 g/dL Red Cell Distribution Width 12.5 10.0-14.5 % Platelet Count 181 130-400 10^3/uL Mean Platelet Volume 10.8 9.0-12.2 fL Immature Granulocyte % (Auto) 2 % Neutrophils (%) (Auto) 52 42-75 % Lymphocytes (%) (Auto) 36 12-44 % Monocytes (%) (Auto) 8 0-12 % Eosinophils (%) (Auto) 2 0-10 % Basophils (%) (Auto) 1 0-10 % Neutrophils # (Auto) 4.0 1.8-7.8 10^3/uL Lymphocytes # (Auto) 2.8 1.0-4.0 10^3/uL Monocytes # (Auto) 0.6 0.0-1.0 10^3/uL Eosinophils # (Auto) 0.1 0.0-0.3 10^3/uL Basophils # (Auto) 0.0 0.0-0.1 10^3/uL Immature Granulocyte # (Auto) 0.2 H 0.0-0.1 10^3/uL Prothrombin Time 12.7 12.2-14.7 SEC INR Comment 0.9 0.8-1.4 Activated Partial Thromboplast Time 29 24-35 SEC Sodium Level 134 L 135-145 MMOL/L Potassium Level 4.2 3.6-5.0 MMOL/L Chloride Level 103 98-107 MMOL/L Carbon Dioxide Level 17 L 21-32 MMOL/L Anion Gap 14 5-14 MMOL/L Blood Urea Nitrogen 16 7-18 MG/DL Creatinine 0.82 0.60-1.30 MG/DL Estimat Glomerular Filtration Rate > 60 BUN/Creatinine Ratio 20 Glucose Level 302 H 70-105 MG/DL Glucometer 284 H 70-110 MG/DL Calcium Level 9.1 8.5-10.1 MG/DL Corrected Calcium 9.2 8.5-10.1 MG/DL Magnesium Level 3.2 H 1.6-2.4 MG/DL Total Bilirubin 0.5 0.1-1.0 MG/DL Aspartate Amino Transf (AST/SGOT) 22 5-34 U/L Alanine Aminotransferase (ALT/SGPT) 36 0-55 U/L Alkaline Phosphatase 70 40-136 U/L Total Creatine Kinase 89 30-200 U/L Creatine Kinase MB 1.8 <6.6 NG/ML Myoglobin 37.6 10.0-92.0 NG/ML Troponin I < 0.028 <0.028 NG/ML B-Type Natriuretic Peptide < 10.0 <100.0 PG/ML Total Protein 6.9 6.4-8.2 GM/DL Albumin 3.9 3.2-4.5 GM/DL Amylase Level 59 25-125 U/L Lipase 32 8-78 U/L Beta-Hydroxybutyrate (Chem panel) 1.31 H 0.00-0.27 MMOL/L Urine Color YELLOW Urine Clarity CLEAR Urine pH 5.0 5-9 Urine Specific [place] 1.025 H 1.016-1.022 Urine Protein NEGATIVE NEGATIVE Urine Glucose (UA) 3+ H NEGATIVE Urine Ketones 2+ H NEGATIVE Urine Nitrite NEGATIVE NEGATIVE Urine Bilirubin 1+ H NEGATIVE Urine Urobilinogen 0.2 < = 1.0 MG/DL Urine Leukocyte Esterase NEGATIVE NEGATIVE Urine RBC (Auto) NEGATIVE NEGATIVE Urine RBC NONE /HPF Urine WBC NONE /HPF Urine Squamous Epithelial Cells NONE /HPF Urine Crystals NONE /LPF Urine Bacteria NEGATIVE /HPF Urine Casts NONE /LPF Urine Mucus NEGATIVE /LPF Urine Culture Indicated NO Urine Opiates Screen NEGATIVE NEGATIVE Urine Oxycodone Screen NEGATIVE NEGATIVE Urine Methadone Screen NEGATIVE NEGATIVE Urine Propoxyphene Screen NEGATIVE NEGATIVE Urine Barbiturates Screen NEGATIVE NEGATIVE Ur Tricyclic Antidepressants Screen NEGATIVE NEGATIVE Urine Phencyclidine Screen NEGATIVE NEGATIVE Urine Amphetamines Screen NEGATIVE NEGATIVE Urine Methamphetamines Screen NEGATIVE NEGATIVE Urine Benzodiazepines Screen NEGATIVE NEGATIVE Urine Cocaine Screen NEGATIVE NEGATIVE Urine Cannabinoids Screen NEGATIVE NEGATIVE My Orders Orders - GARRETTNABILAA K DO Cbc With Automated Diff (12/03/20 18:40) Magnesium (12/03/20 18:40) Chest 1 View, Ap/Pa Only (12/03/20 18:40) Ekg Tracing (12/03/20 18:40) Comprehensive Metabolic Panel (12/03/20 18:40) Myoglobin Serum (12/03/20 18:40) Protime With Inr (12/03/20 18:40) Partial Thromboplastin Time (12/03/20 18:40) O2 (12/03/20 18:40) Monitor-Rhythm Ecg Trace Only (12/03/20 18:40) Ed Iv/Invasive Line Start (12/03/20 18:40) Creatine Kinase (12/03/20 18:40) Creatine Kinase Mb (12/03/20 18:40) Lipase (12/03/20 18:40) Amylase (12/03/20 18:40) BNP (12/03/20 18:40) Troponin I (12/03/20 18:40) Nitroglycerin 0.4 Mg Btl 25's (Nitrostat (12/03/20 18:45) Aspirin Chewable Tablet (Baby Aspirin Ch (12/03/20 18:45) Accucheck Stat ONCE (12/03/20 18:48) Drug Screen Stat (Urine) (12/03/20 18:54) Ua Culture If Indicated (12/03/20 18:54) Ed Iv/Invasive Line Start (12/03/20 19:00) Ns Iv 1000 Ml (Sodium Chloride 0.9%) (12/03/20 19:00) Beta Hydroxybutyrate (12/03/20 19:25) Medications Given in ED Current Medications Medications Dose Ordered Sig/Nikia Route Start Time Stop Time Status Last Admin Dose Admin Aspirin 324 mg ONCE ONCE PO 12/03/20 18:45 12/03/20 18:46 DC 12/03/20 19:06 324 MG Nitroglycerin 0.4 mg UD PRN SL 12/03/20 18:45 12/03/20 21:19 DC 12/03/20 19:12 0.4 MG Vital Signs/I&O 12/03/20 12/03/20 18:40 18:40 Temp 36.4 Pulse 87 Resp 14 B/P (MAP) 146/91 (109) Pulse Ox 96 O2 Delivery Room Air Progress Progress Note : Progress Note GIVEN IV FLUIDS, ASPIRIN AND NTG X2 WITH RELIEF OF MID CHEST PAIN AND JAW AND BACK PAIN. STATES NTG MADE HIS CHEST FEEL LIKE IT HAS PINS AND NEEDLES IN IT. STATES HE STILL HAS SOME PAIN IN RIGHT AXILLA AREA GIVEN TORADOL WITH RELIEF OF PAIN IN RIGHT AXILLA AREA UNEVENTFUL ER STAY Initial ECG Impression Date: Dec 03, 2020 Initial ECG Impression Time: 18:44 Initial ECG Rate: 85 Initial ECG Rhythm: Normal Sinus Diagnostic Imaging Comments CXR--PER RADIOLOGIST REPORT AT 1913 The heart size is normal. The pulmonary vascularity is unremarkable. The lungs are clear. No infiltrate, effusion or pneumothorax is detected. IMPRESSION: No acute cardiopulmonary process is detected. Reviewed: Reviewed by Me Departure Communication (Admissions) 1939--CALLED DR. 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 UNABLE TO LEAVE MESSAGE 1949--SPOKE WITH DR. LIAO, ACCEPTS PT FOR ADMIT. WILL CONSULT CARDIOLOGY IN AM. Impression Primary Impression: Chest pain Additional Impressions: Diabetes mellitus, insulin dependent (IDDM), uncontrolled HTN (hypertension) Hyperlipidemia Obesity Disposition: ADMITTED INPATIENT Condition: Improved Admissions Decision to Admit Reason: Admit from ER (General) Decision to Admit/Date: Dec 03, 2020 Time/Decision to Admit Time: 19:40 Departure-Patient Inst. Referrals: [facility] [place] ([place]) Primary Care Physician NERISSA MARTINEZ (Family) Primary Care Physician TRISTEN TUCKER DO Dec 03, 2020 18:54
[2020-12-03 18:56] LABS: BASOPHILS % (AUTO) 1 % (0-10); EOSINOPHILS # (AUTO) 0.1 10^3/uL (0.0-0.3); EOSINOPHILS % (AUTO) 2 % (0-10); HEMATOCRIT 43 % (40-54); HEMOGLOBIN 15.1 g/dL (13.3-17.7); LYMPHOCYTES # (AUTO) 2.8 10^3/uL (1.0-4.0); LYMPHOCYTES % (AUTO) 36 % (12-44); MEAN CORPUSCULAR HEMOGLOBIN 30 pg (25-34); MEAN CORPUSCULAR HGB CONC 35 g/dL (32-36); MEAN CORPUSCULAR VOLUME 86 fL (80-99); MEAN PLATELET VOLUME 10.8 fL (9.0-12.2); MONOCYTES # (AUTO) 0.6 10^3/uL (0.0-1.0); MONOCYTES % (AUTO) 8 % (0-12); NEUTROPHILS % (AUTO) 52 % (42-75); PLATELET COUNT 181 10^3/uL (130-400); WHITE BLOOD COUNT 7.7 10^3/uL (4.3-11.0)
[2020-12-03] MEDS ORDERED: NS IV 1000 ML 1,000 ML IV SCH (19:00)
[2020-12-03] MEDS: NITROGLYCERIN 0.4 MG SL TABS BTL 25'S SL PRN ×2 (19:07→19:12)
[2020-12-03 19:08] LABS: INR 0.9 (0.8-1.4); PROTHROMBIN TIME PATIENT 12.7 SEC (12.2-14.7)
--- NOTE | 2020-12-03 19:11 | Diagnostic Imaging Report ---
INDICATION: Chest pain. COMPARISON: 02/05/2018. The heart size is normal. The pulmonary vascularity is unremarkable. The lungs are clear. No infiltrate, effusion or pneumothorax is detected. IMPRESSION: No acute cardiopulmonary process is detected. Dictated by: Dictated on workstation # [id number]
[2020-12-03 19:19] LABS: ALANINE AMINOTRANSFERASE 36 U/L (0-55); ALBUMIN 3.9 GM/DL (3.2-4.5); ALKALINE PHOSPHATASE 70 U/L (40-136); AMYLASE 59 U/L (25-125); BILIRUBIN,TOTAL 0.5 MG/DL (0.1-1.0); BUN/CREATININE RATIO 20; CALCIUM 9.1 MG/DL (8.5-10.1); CARBON DIOXIDE 17 MMOL/L (21-32); CHLORIDE 103 MMOL/L (98-107); CREATINE KINASE 89 U/L (30-200); CREATININE SERUM 0.82 MG/DL (0.60-1.30); GFR ESTIMATED > 60; GLUCOSE 302 MG/DL (70-105); LIPASE 32 U/L (8-78); MAGNESIUM 3.2 MG/DL (1.6-2.4); POTASSIUM 4.2 MMOL/L (3.6-5.0); SODIUM 134 MMOL/L (135-145); TOTAL PROTEIN 6.9 GM/DL (6.4-8.2)
[2020-12-03 19:26] LABS: CREATINE KINASE MB 1.8 NG/ML (<6.6)
[2020-12-03 19:46] LABS: CLARITY,URINE CLEAR; COLOR,URINE YELLOW; GLUCOSE, URINE (UA) 3+ (NEGATIVE); KETONES,URINE 2+ (NEGATIVE); LEUKOCYTE ESTERASE ,URINE NEGATIVE (NEGATIVE); NITRITE,URINE NEGATIVE (NEGATIVE); PROTEIN,URINE NEGATIVE (NEGATIVE)
[2020-12-03] MEDS ORDERED: KETOROLAC 30 MG/ML VIAL ONE (19:55)
[2020-12-03 19:58] LABS: BACTERIA,URINE NEGATIVE /HPF
[2020-12-03] MEDS ORDERED: KETOROLAC 30 MG/ML VIAL IVP ONE (20:00)
[2020-12-03 20:03] LABS: BILIRUBIN,URINE 1+ (NEGATIVE)
[2020-12-03 20:08] LABS: AMPHETAMINE SCREEN, URINE NEGATIVE (NEGATIVE); BARBITURATE SCREEN URINE NEGATIVE (NEGATIVE); BENZODIAZEPINES SCREEN URINE NEGATIVE (NEGATIVE); CANNABINOID SCREEN, URINE NEGATIVE (NEGATIVE); COCAINE SCREEN URINE NEGATIVE (NEGATIVE); METHADONE STAT NEGATIVE (NEGATIVE); METHAMPHETAMINE SCREEN URINE S NEGATIVE (NEGATIVE); OPIATE SCREEN URINE NEGATIVE (NEGATIVE); OXYCODONE STAT NEGATIVE (NEGATIVE); PROPOXYPHENE STAT NEGATIVE (NEGATIVE); TRICYCLIC ANTIDEPRESSANTS SCRE NEGATIVE (NEGATIVE)
[2020-12-03] MEDS ORDERED: ONDANSETRON 4 MG/2 ML (SDV) Z0FRAN IVP PRN (21:30)
[2020-12-03] MEDS ORDERED: morphine INJ 4 MG/ML 1 ML (VIAL/SYRINGE) IV PRN (21:30)
[2020-12-03] MEDS ORDERED: NITROGLYCERIN 0.4 MG SL TABS BTL 25'S SL PRN (21:30)
[2020-12-03] MEDS ORDERED: inSUlin ASPART (NovoLOG) 1 UNIT/0.01 ML (CHARGE PER UNIT) ONE (21:56)
[2020-12-03] MEDS: NS IV 1000 ML 1,000 ML IV SCH (22:00)
[2020-12-03] MEDS: inSUlin ASPART (NovoLOG) 1 UNIT/0.01 ML (CHARGE PER UNIT) SC SCH (22:02)
[2020-12-04] VITALS (7 sets, daily range): BP systolic 124–154; BP diastolic 76–88
[2020-12-04 06:05] LABS: BASOPHILS % (AUTO) 1 % (0-10); EOSINOPHILS # (AUTO) 0.1 10^3/uL (0.0-0.3); EOSINOPHILS % (AUTO) 1 % (0-10); HEMATOCRIT 42 % (40-54); HEMOGLOBIN 14.8 g/dL (13.3-17.7); LYMPHOCYTES % (AUTO) 32 % (12-44); MEAN CORPUSCULAR HEMOGLOBIN 31 pg (25-34); MEAN CORPUSCULAR HGB CONC 35 g/dL (32-36); MEAN CORPUSCULAR VOLUME 87 fL (80-99); MEAN PLATELET VOLUME 11.1 fL (9.0-12.2); MONOCYTES # (AUTO) 0.4 10^3/uL (0.0-1.0); MONOCYTES % (AUTO) 7 % (0-12); NEUTROPHILS # (AUTO) 3.5 10^3/uL (1.8-7.8); NEUTROPHILS % (AUTO) 58 % (42-75); PLATELET COUNT 146 10^3/uL (130-400); WHITE BLOOD COUNT 6.1 10^3/uL (4.3-11.0)
[2020-12-04] MEDS: NS IV 1000 ML 1,000 ML IV SCH ×2 (06:09→16:54)
[2020-12-04] MEDS: inSUlin ASPART (NovoLOG) 1 UNIT/0.01 ML (CHARGE PER UNIT) SC SCH ×4 (06:11→21:00)
[2020-12-04 06:31] LABS: ALANINE AMINOTRANSFERASE 37 U/L (0-55); ALBUMIN 3.7 GM/DL (3.2-4.5); ALKALINE PHOSPHATASE 62 U/L (40-136); BILIRUBIN,TOTAL 0.6 MG/DL (0.1-1.0); BUN/CREATININE RATIO 20; CALCIUM 8.7 MG/DL (8.5-10.1); CARBON DIOXIDE 18 MMOL/L (21-32); CHLORIDE 106 MMOL/L (98-107); CHOLESTEROL 192 MG/DL (< 200); CREATININE SERUM 0.81 MG/DL (0.60-1.30); GFR ESTIMATED > 60; HDL CHOLESTEROL 31 MG/DL (40-60); POTASSIUM 4.2 MMOL/L (3.6-5.0); SODIUM 136 MMOL/L (135-145); TOTAL PROTEIN 6.5 GM/DL (6.4-8.2); TRIGLYCERIDES 424 MG/DL (<150); VLDL CHOLESTEROL 85 MG/DL (5-40)
[2020-12-04 06:43] LABS: GLUCOSE 282 MG/DL (70-105)
[2020-12-04] MEDS ORDERED: REGADENOSON 0.4 MG/5 ML SYR (LEXISCAN) IV ONE (09:30)
[2020-12-04] MEDS: ASPIRIN E.C. 81 MG (ECOTRIN) TAB PO SCH (10:13)
--- NOTE | 2020-12-04 11:49 | History & Physical ---
PHYLLIS BROWN MED STUDENT 12/04/20 1149: History of Present Illness History of Present Illness Reason for visit/HPI Alfonso is a 42 yo male that presented to the ER yesterday at 18:35 with the chief complaint of radiating chest pain. The pain was described as sternal chest pain that has been occurring on and off for 3 days with associated SOB. Pt stated that the pain radiated to his lower jaw, bilateral axillary regions, and between in shoulder blades on his back. Pt stated that nothing made the symptoms better but has noticed that it becomes more frequent at night when laying down for bed. At its worse the pain was a 8/10 but currently at a 2/10. Pt deines chest pain with activity, vomiting, or current SOB. PMH is significant for diverticulitis which he was recently hospitalized for, insulin dependent diabetes, hypertension, and esophagitis. PSH is significant for cholecystectomy. For FH Pt denies any angina or heart disease but stated that his father had diabetes and due to an aneurysm. Date of Admission Dec 03, 2020 at 19:40 Date Seen by a Provider: Dec 04, 2020 Time Seen by a Provider: 08:50 I consulted on this patient on 12/04/20 11:37 Attending Physician Ori Gilbert MD Admitting Physician [facility] Consult Allergies and Home Medications Allergies Coded Allergies: sertraline (Verified Allergy, Severe, RASH, SWELLING, 04/09/20) "FELT LOOPY" bupropion (Verified Allergy, Unknown, "CAUSED ME TO BANG MY HEAD ON THE WALL", 04/09/20) buspirone (Verified Allergy, Unknown, THROAT SWELLED, 04/09/20) cephalexin (Verified Allergy, Unknown, HIVES, 04/09/20) codeine (Verified Allergy, Unknown, 04/09/20) sulfamethoxazole (Verified Adverse Reaction, Unknown, Itching, 04/09/20) trimethoprim (Verified Adverse Reaction, Unknown, Itching, 04/09/20) Home Medications Acetaminophen 650 Mg Tablet.er, 1,300 MG PO Q6H PRN for PAIN-MILD (1-4), (Reported) Insulin Degludec 200 Unit/1 Ml Insuln.pen, 160 UNIT SQ HS, (Reported) Lisinopril 20 Mg Tablet, 20 MG PO DAILY, (Reported) Mag Hydrox/Aluminum Hyd/Simeth 355 Ml Oral.susp, 10-20 ML PO Q6H PRN for HEARTBURN, (Reported) Magnesium Oxide 400 Mg Tablet, 400 MG PO DAILY, (Reported) Pantoprazole Sodium 40 Mg Tablet.dr, 40 MG PO DAILY, (Reported) Pioglitazone HCl 45 Mg Tablet, 45 MG PO DAILY, (Reported) Pregabalin 150 Mg Capsule, 150 MG PO BID, (Reported) Tizanidine HCl 4 Mg Tablet, 1 EA PO Q6H PRN for MUSCLE SPASMS, (Reported) Past Hxoufgq-Bbrgwp-Kzxtnt Hx Patient Social History Marrital Status: single Employed/Student: unemployed Drug of Choice: HX OF MARIJUANA Smoking Status: Never a Smoker 2nd Hand Smoke Exposure: No Recent Hopitalizations: No Have you traveled recently?: No Alcohol Use?: No Pt feels they are or have been: No Immunizations Up To Date Tetanus Booster (TDap): More than 5yrs Pediatric: No Seasonal Allergies Seasonal Allergies: Yes Surgeries Yes (HYPOGONADISM SURGERY INFANT; ENDOSCOPIES) Gallbladder, Testicular Respiratory Yes Currently Using CPAP: No Currently Using BIPAP: No Cardiovascular Yes High Cholesterol, Hypertension, Palpitations Neurological Yes Neuropathy Reproductive System Hx Reproductive Disorders: Yes (HYPOGONADISM sx as an infant) Sexually Transmitted Disease: No HIV/AIDS: No Genitourinary No Gastrointestinal Yes (ENDOSCOPIES) Gastroesophageal Reflux, Diverticulosis, Esophagitis Musculoskeletal Yes Arthritis Endocrine History of Endocrine Disorders: Yes (MORBID OBESITY; DM TYPE 2 (INSULIN AND PO)) Endocrine Disorders: Diabetes, Insulin dep HEENT History of HEENT Disorders: Yes (GLASSES) Loss of Vision: Denies Hearing Impairment: Denies Cancer No Psychosocial History of Psychiatric Problem: Yes Behavioral Health Disorders: ADD/ADHD, Anxiety, Depression Integumentary History of Skin or Integumenta: No Blood Transfusions History of Blood Disorders: No Adverse Reaction to a Blood Tr: No (N/A) Family Medical History Significant Family History: No Pertinent Family Hx Family Hx: Arthritis 19 MOTHER Congenital heart disease Diabetes mellitus 19 FATHER 19 MOTHER FH: brain aneurysm 19 FATHER (cause of - 09/13/2015) Glaucoma 19 FATHER Hypertension 19 FATHER 19 MOTHER Psychosocial problem 19 MOTHER (depression) Review of Systems Constitutional: dizziness, malaise EENTM: no symptoms reported; No ear pain, No eye pain, No throat pain Respiratory: no symptoms reported; No cough, No hemoptysis, No short of breath Cardiovascular: chest pain, palpitations Gastrointestinal: abdominal pain (mild, diffuse); No constipation, No diarrhea, No hematemesis; heartburn; No loss of appetite; nausea; No vomiting Genitourinary: no symptoms reported; No dysuria, No frequency, No hematuria, No incontinence, No pain Musculoskeletal: no symptoms reported; No back pain, No joint pain, No muscle pain, No neck pain Skin: no symptoms reported; No hx of skin cancer, No rash Psychiatric/Neurological: No Symptoms Reported; Denies Headache, Denies Weakness Physical Exam Vital Signs Vital Signs - First Documented 12/03/20 18:40 Temp 36.4 Pulse 87 Resp 14 B/P (MAP) 146/91 (109) Pulse Ox 96 O2 Delivery Room Air Capillary Refill : Less Than 3 Seconds Height, Weight, BMI Height: 5'11.00" Weight: 324lbs. 0.0oz. [id number]; 48.35 BMI Method:Stated General Appearance: No Apparent Distress, WD/WN, Obese HEENT: PERRL/EOMI, Pharynx Normal Neck: Normal Inspection, Non Tender, Supple Respiratory: Chest Non Tender, Lungs Clear, Normal Breath Sounds, No Accessory Muscle Use, No Respiratory Distress Cardiovascular: Regular Rate, Rhythm, No Edema, No Gallop, No Murmur Gastrointestinal: Normal Bowel Sounds, No Organomegaly, No Pulsatile Mass, Soft, Tenderness Rectal: Deferred Back: No CVA Tenderness, No Vertebral Tenderness Extremity: Normal Inspection, Non Tender, No Calf Tenderness Neurologic/Psychiatric: Alert, Oriented x3, No Motor/Sensory Deficits, Normal Mood/Affect Skin: Normal Color, Warm/Dry Lymphatic: No Adenopathy Assessment/Plan Assessment and Plan Assessment: atypical chest pain-possibly from angina or digestive system diverticulitis insulin dependent diabetes- current glucose of 282 hypertension- current BP of 154/88 hypertriglyceridemia- currently at 424 esophagitis Plan: consult cardiology stress test tomorrow A1C Clinical Quality Measures AMI/AHF: ASA po Prior to arrival: ORI Ma MD 12/04/20 1909: Allergies and Home Medications Allergies Coded Allergies: sertraline (Verified Allergy, Severe, RASH, SWELLING, 04/09/20) "FELT LOOPY" bupropion (Verified Allergy, Unknown, "CAUSED ME TO BANG MY HEAD ON THE WALL", 04/09/20) buspirone (Verified Allergy, Unknown, THROAT SWELLED, 04/09/20) cephalexin (Verified Allergy, Unknown, HIVES, 04/09/20) codeine (Verified Allergy, Unknown, 04/09/20) sulfamethoxazole (Verified Adverse Reaction, Unknown, Itching, 04/09/20) trimethoprim (Verified Adverse Reaction, Unknown, Itching, 04/09/20) Home Medications Acetaminophen 650 Mg Tablet.er, 1,300 MG PO Q6H PRN for PAIN-MILD (1-4), (Reported) Insulin Degludec 200 Unit/1 Ml Insuln.pen, 160 UNIT SQ HS, (Reported) Lisinopril 20 Mg Tablet, 20 MG PO DAILY, (Reported) Mag Hydrox/Aluminum Hyd/Simeth 355 Ml Oral.susp, 10-20 ML PO Q6H PRN for HEARTBURN, (Reported) Magnesium Oxide 400 Mg Tablet, 400 MG PO DAILY, (Reported) Pantoprazole Sodium 40 Mg Tablet.dr, 40 MG PO DAILY, (Reported) Pioglitazone HCl 45 Mg Tablet, 45 MG PO DAILY, (Reported) Pregabalin 150 Mg Capsule, 150 MG PO BID, (Reported) Tizanidine HCl 4 Mg Tablet, 1 EA PO Q6H PRN for MUSCLE SPASMS, (Reported) Patient Home Medication List Home Medication List Reviewed: Yes Past Roigbsp-Xzzboz-Tazkcj Hx Family Medical History Family Hx: Arthritis 19 MOTHER Congenital heart disease Diabetes mellitus 19 FATHER 19 MOTHER FH: brain aneurysm 19 FATHER (cause of - 09/13/2015) Glaucoma 19 FATHER Hypertension 19 FATHER 19 MOTHER Psychosocial problem 19 MOTHER (depression) Review of Systems Constitutional: dizziness, malaise EENTM: no symptoms reported Respiratory: no symptoms reported; No cough, No hemoptysis, No short of breath Cardiovascular: chest pain (atypical); No edema; palpitations Gastrointestinal: abdominal pain (mild, diffuse); No constipation, No diarrhea; heartburn, nausea; No vomiting Genitourinary: no symptoms reported; No dysuria, No frequency, No hematuria Musculoskeletal: no symptoms reported; No back pain, No joint pain, No muscle pain Skin: no symptoms reported; No lesions, No rash Psychiatric/Neurological: No Symptoms Reported; Denies Headache, Denies Numbness, Denies Paresthesia, Denies Weakness Physical Exam General Appearance: No Apparent Distress, WD/WN, Obese Neck: Full Range of Motion, Non Tender, Supple Respiratory: Chest Non Tender, Lungs Clear, Normal Breath Sounds, No Accessory Muscle Use, No Respiratory Distress Cardiovascular: Regular Rate, Rhythm, No Edema, No Murmur Gastrointestinal: Normal Bowel Sounds, Non Tender, Soft Back: No CVA Tenderness, No Vertebral Tenderness Extremity: Normal Capillary Refill, Normal Inspection, Normal Range of Motion, Non Tender, No Calf Tenderness, No Pedal Edema Neurologic/Psychiatric: Alert, Oriented x3, No Motor/Sensory Deficits, Normal 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, 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 as Tested Skin: Normal Color, Warm/Dry Lymphatic: No Adenopathy Assessment/Plan Assessment and Plan Problems: (1) Atypical chest pain Status: Acute Assessment & Plan: - No acute signs of ACS, Cardiology consulted and Echo and stress ordered, ASA, Statin (2) HTN (hypertension) Status: Acute Qualifiers: Qualified Codes: I10 - Essential (primary) hypertension Assessment & Plan: - Continue home meds (3) Hyperlipidemia Status: Acute Qualifiers: Qualified Codes: E78.5 - Hyperlipidemia, unspecified Assessment & Plan: - Continue statin (4) Obesity Status: Acute Qualifiers: Admission Diagnosis Admission Status: Observation Supervisory-Addendum Brief Verification & Attestation Participated in pt care: history, physical Personally performed: exam, history Care discussed with: Medical Student Procedures: n/a Verification and Attestation of Medical Student E/M Service A medical student performed and documented this service in my presence. I reviewed and verified all information documented by the medical student and made modifications to such information, when appropriate. I personally performed the physical exam and medical decision making. Ori Gilbert, Dec 04, 2020,19:09 PHYLLIS BROWN MED STUDENT Dec 04, 2020 11:49 ORI GILBERT MD Dec 04, 2020 19:09
--- NOTE | 2020-12-04 12:33 | Consultation-Cardiology ---
HPI-Cardiology Cardiology Consultation: Date of Consultation 12/04/20 Time Seen by a Provider: 08:15 Date of Admission Attending Physician Lisbeth Gilbert MD Admitting Physician [facility] Consulting Physician LOLLY THOMAS MD, MA, FACP, FACC, FSCAI, CCDS HPI: Chief Complaint: CC: Chest discomfort HPI 40 yo man admitted with 3 days of chest discomfort, episodic, each episode lasting several hours, felt in the mid-chest and in the parasternal areas, feeling of burning or sharp pain, w/o aggravating or relieving factors, mild to mod in intensity, not experienced before, radiating towards the back. Chronic, exertional shortness of breath. No palp or syncope. Chronic, intermittent leg swelling. No fever or chills. Gen malaise present. Review of Systems-Cardiology Review of Systems Constitutional: malaise, tiredness; No weight loss, No weight gain Eyes: No vision change Ears/Nose/Throat: No ear discharge, No nasal drainage, No recent hearing loss Respiratory: As described under HPI Cardiovascular: As described under HPI Gastrointestinal: No constipation, No diarrhea, No nausea, No other Genitourinary: No dysuria, No hematuria, No urine frequency changes Musculoskeletal: back pain (chronic) Skin: No rash, No ulcerations Psychiatric/Neurological: No seizure, No focal weakness, No syncope Hematologic: No bleeding abnormalities HJW-Wiwvjk-Ggpjuc Hx Patient Social History Marrital Status: single Employed/Student: unemployed Smoking Status: Never a Smoker 2nd Hand Smoke Exposure: No Have you traveled recently?: No Alcohol Use?: No Pt feels they are or have been: No Immunizations Up To Date Tetanus Booster (TDap): More than 5yrs Past Medical History PMH As described under Assessment. Family Medical History Family History: Arthritis 19 MOTHER Congenital heart disease Diabetes mellitus 19 FATHER 19 MOTHER FH: brain aneurysm 19 FATHER (cause of - 09/13/2015) Glaucoma 19 FATHER Hypertension 19 FATHER 19 MOTHER Psychosocial problem 19 MOTHER (depression) Allergies and Home Medications Allergies Coded Allergies: sertraline (Verified Allergy, Severe, RASH, SWELLING, 04/09/20) "FELT LOOPY" bupropion (Verified Allergy, Unknown, "CAUSED ME TO BANG MY HEAD ON THE WALL", 04/09/20) buspirone (Verified Allergy, Unknown, THROAT SWELLED, 04/09/20) cephalexin (Verified Allergy, Unknown, HIVES, 04/09/20) codeine (Verified Allergy, Unknown, 04/09/20) sulfamethoxazole (Verified Adverse Reaction, Unknown, Itching, 04/09/20) trimethoprim (Verified Adverse Reaction, Unknown, Itching, 04/09/20) Home Medications Amlodipine Besylate 10 Mg Tablet, 10 MG PO DAILY, (Reported) Atorvastatin Calcium 40 Mg Tablet, 40 MG PO DAILY, (Reported) Canagliflozin 300 Mg Tablet, 300 MG PO DAILY, (Reported) Cetirizine HCl 10 Mg Tablet, 10 MG PO DAILY, (Reported) Chlorzoxazone 500 Mg Tablet, 500 MG PO TID PRN for SPASMS, (Reported) Gabapentin 800 Mg Tablet, 800 MG PO QID, (Reported) Hydrochlorothiazide 25 Mg Tablet, 50 MG PO DAILY, (Reported) Imipramine HCl 50 Mg Tablet, 50 MG PO DAILY, (Reported) Insulin Aspart 300 Units/3 Ml Solution, 60 UNITS SQ AC PRN for BLOOD SUGAR, (Reported) Insulin Degludec 200 Unit/1 Ml Insuln.pen, 160 UNIT SQ HS, (Reported) Lisinopril 20 Mg Tablet, 20 MG PO DAILY, (Reported) Metformin HCl 500 Mg Tab.er.24h, 1,000 MG PO BID, (Reported) TAKES 2 (500 MG) TABLETS Metoclopramide HCl 10 Mg Tablet, 10 MG PO BID, (Reported) Pantoprazole Sodium 40 Mg Tablet.dr, 40 MG PO DAILY, (Reported) Paroxetine HCl 40 Mg Tablet, 40 MG PO DAILY, (Reported) Pioglitazone HCl 45 Mg Tablet, 45 MG PO DAILY, (Reported) Zolpidem Tartrate 10 Mg Tablet, 10 MG PO HS PRN for INSOMNIA, (Reported) Patient Home Medication List Home Medication List Reviewed: Yes Physical Exam-Cardiology Physical Exam Vital Signs/I&O 12/04/20 12/04/20 12/04/20 12/04/20 01:00 01:00 03:45 06:56 Temp 36.3 35.8 Pulse 88 93 81 78 Resp 17 16 B/P (MAP) 126/78 (94) 154/88 (110) Pulse Ox 95 96 O2 Delivery Room Air Room Air 12/04/20 12/04/20 08:00 08:00 Temp 36.0 Pulse 83 Resp 16 B/P (MAP) 132/78 (96) Pulse Ox 97 97 O2 Delivery Room Air Room Air 12/04/20 00:00 Intake Total 1000 ml Balance 1000 ml Capillary Refill : Less Than 3 Seconds Constitutional: AAO x 3, well-developed, well-nourished HEENT: EOMI, hearing is well preserved Neck: carotid pulses are 2 + bilaterally, with good upstrokes Respiratory: No accessory muscle use; other (good, bilateral air entry) Cardiovascular: regular rate-rhythm, S1 and S2, systolic murmur (faint FALGUNI at card base) Gastrointestinal: No tender; soft; No guarding, No rebound; audible bowel sounds Extremities: swelling (mild, bilateral leg edema); No clubbing, No cyanosis Neurologic/Psychiatric: oriented x 3, other (moves all limbs equally) Skin: warm/dry; No cool, No rash Data Review Labs Laboratory Tests 12/03/20 18:49: White Blood Count 7.7, Red Blood Count 4.98, Hemoglobin 15.1, Hematocrit 43, Mean Corpuscular Volume 86, Mean Corpuscular Hemoglobin 30, Mean Corpuscular Hemoglobin Concent 35, Red Cell Distribution Width 12.5, Platelet Count 181, Mean Platelet Volume 10.8, Immature Granulocyte % (Auto) 2, Neutrophils (%) (Auto) 52, Lymphocytes (%) (Auto) 36, Monocytes (%) (Auto) 8, Eosinophils (%) (Auto) 2, Basophils (%) (Auto) 1, Neutrophils # (Auto) 4.0, Lymphocytes # (Auto) 2.8, Monocytes # (Auto) 0.6, Eosinophils # (Auto) 0.1, Basophils # (Auto) 0.0, Immature Granulocyte # (Auto) 0.2H, Prothrombin Time 12.7, INR Comment 0.9, Activated Partial Thromboplast Time 29, Sodium Level 134L, Potassium Level 4.2, Chloride Level 103, Carbon Dioxide Level 17L, Anion Gap 14, Blood Urea Nitrogen 16, Creatinine 0.82, Estimat Glomerular Filtration Rate > 60, BUN/Creatinine Ratio 20, Glucose Level 302H, Glucometer 284H, Calcium Level 9.1, Corrected Calcium 9.2, Magnesium Level 3.2H, Total Bilirubin 0.5, Aspartate Amino Transf (AST/SGOT) 22, Alanine Aminotransferase (ALT/SGPT) 36, Alkaline Phosphatase 70, Total Creatine Kinase 89, Creatine Kinase MB 1.8, Myoglobin 37.6, Troponin I < 0.028, B-Type Natriuretic Peptide < 10.0, Total Protein 6.9, Albumin 3.9, Amylase Level 59, Lipase 32, Beta-Hydroxybutyrate (Chem panel) 1.31H 12/03/20 19:39: Urine Color YELLOW, Urine Clarity CLEAR, Urine pH 5.0, Urine Specific Hyde 1.025H, Urine Protein NEGATIVE, Urine Glucose (UA) 3+H, Urine Ketones 2+H, Urine Nitrite NEGATIVE, Urine Bilirubin 1+H, Urine Urobilinogen 0.2, Urine Leukocyte Esterase NEGATIVE, Urine RBC (Auto) NEGATIVE, Urine RBC NONE, Urine WBC NONE, Urine Squamous Epithelial Cells NONE, Urine Crystals NONE, Urine Bacteria NEGATIVE, Urine Casts NONE, Urine Mucus NEGATIVE, Urine Culture Indicated NO, Urine Opiates Screen NEGATIVE, Urine Oxycodone Screen NEGATIVE, Urine Methadone Screen NEGATIVE, Urine Propoxyphene Screen NEGATIVE, Urine Barbiturates Screen NEGATIVE, Ur Tricyclic Antidepressants Screen NEGATIVE, Urine Phencyclidine Screen NEGATIVE, Urine Amphetamines Screen NEGATIVE, Urine Methamphetamines Screen NEGATIVE, Urine Benzodiazepines Screen NEGATIVE, Urine Cocaine Screen NEGATIVE, Urine Cannabinoids Screen NEGATIVE 12/03/20 19:55: 12/03/20 21:13: Troponin I < 0.028 12/03/20 21:26: Glucometer 296H 12/04/20 05:24: Glucometer 294H 12/04/20 05:55: White Blood Count 6.1, Red Blood Count 4.86, Hemoglobin 14.8, Hematocrit 42, Mean Corpuscular Volume 87, Mean Corpuscular Hemoglobin 31, Mean Corpuscular Hemoglobin Concent 35, Red Cell Distribution Width 12.5, Platelet Count 146, Mean Platelet Volume 11.1, Immature Granulocyte % (Auto) 2, Neutrophils (%) (Auto) 58, Lymphocytes (%) (Auto) 32, Monocytes (%) (Auto) 7, Eosinophils (%) (Auto) 1, Basophils (%) (Auto) 1, Neutrophils # (Auto) 3.5, Lymphocytes # (Auto) 2.0, Monocytes # (Auto) 0.4, Eosinophils # (Auto) 0.1, Basophils # (Auto) 0.0, Immature Granulocyte # (Auto) 0.1, Sodium Level 136, Potassium Level 4.2, Chloride Level 106, Carbon Dioxide Level 18L, Anion Gap 12, Blood Urea Nitrogen 16, Creatinine 0.81, Estimat Glomerular Filtration Rate > 60, BUN/Creatinine Ratio 20, Glucose Level 282H, Calcium Level 8.7, Corrected Calcium 8.9, Total B ilirubin 0.6, Aspartate Amino Transf (AST/SGOT) 26, Alanine Aminotransferase (ALT/SGPT) 37, Alkaline Phosphatase 62, Total Protein 6.5, Albumin 3.7, Triglycerides Level 424H, Cholesterol Level 192, LDL Cholesterol Direct 94, VLDL Cholesterol 85H, HDL Cholesterol 31L 12/04/20 11:29: Glucometer 206H Laboratory Tests 12/03/20 18:49 12/04/20 05:55 A/P-Cardiology Assessment/Admission Diagnosis Chest discomfort w/o any evidence of ACS Obesity with BMI approx 48 DM II, managed by pcp Hypertension, managed by pcp Hyperlipidemia, managed by pcp Discussion and Recomendations * Continue previous home meds * Echo today * MPI tomorrow Clinical Quality Measures AMI/AHF: ASA po Prior to arrival: LOLLY Myers MD FACP FACC CCDS Dec 04, 2020 12:33
[2020-12-04] MEDS ORDERED: MAG-141 PO (15:38)
[2020-12-04] MEDS ORDERED: TIZA4TAB4 PO (15:38)
[2020-12-04] MEDS ORDERED: ACET-2840 PO (15:38)
[2020-12-04] MEDS ORDERED: PIOG45TA65 PO (15:38)
[2020-12-04] MEDS ORDERED: PREG150C46 PO (15:38)
[2020-12-04] MEDS ORDERED: MAGN400T39 PO (15:38)
[2020-12-04] MEDS: PREGABALIN 150 MG (LYRICA) CAPSULE PO SCH (19:46)
[2020-12-05 00:02] VITALS: BP 124/75
[2020-12-05 04:11] VITALS: BP 129/81
[2020-12-05] MEDS: inSUlin ASPART (NovoLOG) 1 UNIT/0.01 ML (CHARGE PER UNIT) SC SCH ×2 (05:41→12:19)
[2020-12-05 05:57] LABS: BASOPHILS % (AUTO) 1 % (0-10); EOSINOPHILS # (AUTO) 0.1 10^3/uL (0.0-0.3); EOSINOPHILS % (AUTO) 1 % (0-10); HEMATOCRIT 43 % (40-54); HEMOGLOBIN 14.8 g/dL (13.3-17.7); LYMPHOCYTES # (AUTO) 1.8 10^3/uL (1.0-4.0); LYMPHOCYTES % (AUTO) 31 % (12-44); MEAN CORPUSCULAR HEMOGLOBIN 30 pg (25-34); MEAN CORPUSCULAR HGB CONC 35 g/dL (32-36); MEAN CORPUSCULAR VOLUME 86 fL (80-99); MEAN PLATELET VOLUME 11.1 fL (9.0-12.2); MONOCYTES # (AUTO) 0.4 10^3/uL (0.0-1.0); MONOCYTES % (AUTO) 8 % (0-12); NEUTROPHILS # (AUTO) 3.4 10^3/uL (1.8-7.8); NEUTROPHILS % (AUTO) 58 % (42-75); PLATELET COUNT 153 10^3/uL (130-400); WHITE BLOOD COUNT 5.8 10^3/uL (4.3-11.0)
[2020-12-05 06:20] LABS: ALANINE AMINOTRANSFERASE 42 U/L (0-55); ALBUMIN 3.6 GM/DL (3.2-4.5); ALKALINE PHOSPHATASE 60 U/L (40-136); BILIRUBIN,TOTAL 0.5 MG/DL (0.1-1.0); BUN/CREATININE RATIO 15; CALCIUM 8.7 MG/DL (8.5-10.1); CARBON DIOXIDE 19 MMOL/L (21-32); CHLORIDE 108 MMOL/L (98-107); CREATININE SERUM 0.79 MG/DL (0.60-1.30); GFR ESTIMATED > 60; GLUCOSE 278 MG/DL (70-105); POTASSIUM 4.3 MMOL/L (3.6-5.0); SODIUM 136 MMOL/L (135-145); TOTAL PROTEIN 6.2 GM/DL (6.4-8.2)
[2020-12-05] MEDS ORDERED: REGADENOSON 0.4 MG/5 ML SYR (LEXISCAN) IV ONE (07:40)
[2020-12-05 07:56] VITALS: BP 145/89
[2020-12-05 08:00] VITALS: BP 141/76
[2020-12-05] MEDS ORDERED: lisINopril 20 MG (PRINIVIL) TABLET PO SCH (09:00)
[2020-12-05] MEDS ORDERED: PANTOPRAZOLE 40 MG (PROTONIX) TAB PO SCH (09:00)
--- NOTE | 2020-12-05 10:02 | Progress Note - Cardiology ---
Cardiology SOAP Progress Note Subjective: No cp today Shortness of breath at usual baseline Some gen malaise No palp or syncope No n/v/d Objective: I&O/Vital Signs 12/04/20 12/05/20 12/05/20 12/05/20 22:59 00:02 01:00 04:11 Temp 36.0 36.0 Pulse 71 70 81 Resp 20 18 B/P (MAP) 124/75 (91) 129/81 (97) Pulse Ox 95 95 97 O2 Delivery Room Air Room Air Room Air 12/05/20 12/05/20 12/05/20 12/05/20 06:51 07:56 08:00 08:00 Temp 36.3 Pulse 86 82 85 Resp 18 B/P (MAP) 145/89 (107) 141/76 (97) Pulse Ox 98 99 98 O2 Delivery Room Air Room Air 12/05/20 00:00 Intake Total 1830 ml Balance 1830 ml Weight (Pounds): 324 Weight (Ounces): 0.0 Weight (Calculated Kilograms): 146.156000 Constitutional: AAO x 3, well-developed, well-nourished Respiratory: No accessory muscle use; other (good, bilateral air entry) Cardiovascular: regular rate-rhythm, S1 and S2, systolic murmur (faint FALGUNI at card base) Gastrointestional: No tender; soft; No guarding, No rebound; audible bowel sounds Extremities: swelling (mild, bilateral leg edema); No clubbing, No cyanosis Neurologic/Psychiatric: oriented x 3, other (moves all limbs equally) Skin: warm/dry; No cool, No rash Results/Procedures: Labs Laboratory Tests 12/04/20 11:29: Glucometer 206H 12/04/20 15:20: Glucometer 267H 12/04/20 20:19: Glucometer 369H 12/05/20 05:26: Glucometer 257H 12/05/20 05:39: White Blood Count 5.8, Red Blood Count 4.93, Hemoglobin 14.8, Hematocrit 43, Me an Corpuscular Volume 86, Mean Corpuscular Hemoglobin 30, Mean Corpuscular Hemoglobin Concent 35, Red Cell Distribution Width 12.6, Platelet Count 153, Mean Platelet Volume 11.1, Immature Granulocyte % (Auto) 2, Neutrophils (%) (Auto) 58, Lymphocytes (%) (Auto) 31, Monocytes (%) (Auto) 8, Eosinophils (%) (Auto) 1, Basophils (%) (Auto) 1, Neutrophils # (Auto) 3.4, Lymphocytes # (Auto) 1.8, Monocytes # (Auto) 0.4, Eosinophils # (Auto) 0.1, Basophils # (Auto) 0.0, Immature Granulocyte # (Auto) 0.1, Sodium Level 136, Potassium Level 4.3, Chloride Level 108H, Carbon Dioxide Level 19L, Anion Gap 9, Blood Urea Nitrogen 12, Creatinine 0.79, Estimat Glomerular Filtration Rate > 60, BUN/Creatinine Ratio 15, Glucose Level 278H, Calcium Level 8.7, Corrected Calcium 9.0, Total Bilirubin 0.5, Aspartate Amino Transf (AST/SGOT) 28, Alanine Aminotransferase (ALT/SGPT) 42, Alkaline Phosphatase 60, Total Protein 6.2L, Albumin 3.6, Thyroid Stimulating Hormone (TSH) 1.67 A/P: Assessment: Chest discomfort, likely noncardiac - cardiac enzymes normal - echo on 12/05/19: LVEF 50-55%, no wall motion abnormality, mild conc LVH, moderately dilated LA, PASP 25-30 mmHg - MPI on 12/06/19: no ischemia or infarction, normal LVEF Obesity with BMI approx 48 DM II, managed by pcp Hypertension, managed by pcp Hyperlipidemia, managed by pcp Plan: * Reviewed his cardiac w/u with him * Risk factor mod discussed * Continue regimen for hypertension * Outpt f/u advised Clinical Quality Measures AMI/AHF: ASA po Prior to arrival: LOLLY Myers MD FACP [facility] CCDS Dec 05, 2020 10:02
--- NOTE | 2020-12-05 10:08 | STRESS TEST ---
DATE OF SERVICE: 12/05/2020 RESTING AND POST REGADENOSON TECHNETIUM-99M TETROFOSMIN SPECT CT IMAGING ORDERING PHYSICIAN: Dr. Resendiz. PRIMARY PHYSICIAN: [facility]. ATTENDING PHYSICIAN: Dr. Gilbert. CLINICAL DIAGNOSIS: Chest discomfort. Baseline images were carried out after injection of 10.94 mCi of technetium-99m Tetrofosmin. This was followed by 0.4 mg regadenoson and 31.8 mCi of technetium-99m Tetrofosmin for stress imaging. The electrocardiogram showed sinus rhythm at baseline. It did not change significantly with the regadenoson infusion. The patient noted some shortness of breath following regadenoson infusion, which resolved in a few minutes. Review of images at rest and following stress does not indicate any significant perfusion defects consistent with myocardial ischemia or infarction. Gated images show normal global left ventricular systolic function with normal regional wall motion. Left ventricular ejection fraction is calculated to be 62%. Left ventricular end diastolic volume is 84 mL. TID is absent (1.01). CONCLUSIONS: 1. No evidence of any significant myocardial ischemia or infarction on this study. 2. Normal regional wall motion. 3. Normal global left ventricular systolic function with a calculated ejection fraction of 62%. Job ID: [id number] DocumentID: [id number] Dictated Date: 12/05/2020 09:46:52 Ladle Builder Date: 12/05/2020 10:07:12 Dictated By: LOLLY RESENDIZ MD, MA, FACP, FACC,
[2020-12-05] MEDS: PREGABALIN 150 MG (LYRICA) CAPSULE PO SCH (10:32)
[2020-12-05] MEDS: ASPIRIN E.C. 81 MG (ECOTRIN) TAB PO SCH (10:32)
[2020-12-05 12:00] VITALS: BP 136/93
--- NOTE | 2020-12-05 12:50 | Discharge Summary ---
Diagnosis/Chief Complaint Date of Admission Dec 03, 2020 at 19:40 Date of Discharge Discharge Summary-Simple/Stand Discharge Physical Examination Allergies: Coded Allergies: sertraline (Verified Allergy, Severe, RASH, SWELLING, 04/09/20) "FELT LOOPY" bupropion (Verified Allergy, Unknown, "CAUSED ME TO BANG MY HEAD ON THE WALL", 04/09/20) buspirone (Verified Allergy, Unknown, THROAT SWELLED, 04/09/20) cephalexin (Verified Allergy, Unknown, HIVES, 04/09/20) codeine (Verified Allergy, Unknown, 04/09/20) sulfamethoxazole (Verified Adverse Reaction, Unknown, Itching, 04/09/20) trimethoprim (Verified Adverse Reaction, Unknown, Itching, 04/09/20) Vitals & I&Os Vital Sign - Last 12Hours Date Time Temp Pulse Resp B/P (MAP) Pulse Ox O2 Delivery O2 Flow Rate FiO2 12/05/20 12:20 100 12/05/20 12:00 36.4 18 136/93 (107) 18 Room Air Intake and Output 12/04/20 23:59 Intake Total 1830 ml Balance 1830 ml Hospital Course See final discharge diagnosis. Discharge Instructions to patient/family Please see electronic discharge instructions given to patient. Discharge Medications Reviewed and agree with Discharge Medication list on patient's Discharge Instruction sheet Clinical Quality Measures AMI/AHF: ASA po Prior to arrival: ORI Ma MD Dec 05, 2020 12:50
[2020-12-05] MEDS ORDERED: ASPI-1238 PO (12:51)
--- NOTE | 2020-12-05 12:52 | Discharge Summary ---
Discharge [facility] Reconcile Patient Problems Problems Reviewed?: Yes Discharge Medications New, Converted or Re-Newed RX: Transmitted to Pharmacy New Medications: Aspirin (Aspirin EC) 81 Mg Tablet.dr 81 MG PO DAILY, #30 TAB Continued Medications: Acetaminophen (Tylenol 8 Hour) 650 Mg Tablet.er 1300 MG PO Q6H PRN for PAIN-MILD (1-4), TAB Insulin Degludec (Tresiba Flextouch U-200) 200 Unit/1 Ml Insuln.pen 160 UNIT SQ HS, EA Lisinopril (Lisinopril) 20 Mg Tablet 20 MG PO DAILY Mag Hydrox/Aluminum Hyd/Simeth (Mylanta Maximum Strength Liq) 355 Ml Oral.susp 10-20 ML PO Q6H PRN for HEARTBURN, ML Magnesium Oxide (Magnesium) 400 Mg Tablet 400 MG PO DAILY, TAB Pantoprazole Sodium (Pantoprazole Sodium) 40 Mg Tablet.dr 40 MG PO DAILY, TAB Pioglitazone HCl (Pioglitazone HCl) 45 Mg Tablet 45 MG PO DAILY, TAB Pregabalin (Pregabalin) 150 Mg Capsule 150 MG PO BID, CAP Tizanidine HCl (Tizanidine HCl) 4 Mg Tablet 1 EA PO Q6H PRN for MUSCLE SPASMS, TAB Patient Instructions Goal/Follow Up Appt: You have a f.u appt with Kush Reeves on December 12 @ 940 AM Activity & Diet Discharge Diet: ADA Diet, Cardiac Diet Activity as Tolerated: Yes ORI LIAO MD Dec 05, 2020 12:52
[2020-12-05 14:05] VITALS: BP 136/93
== END 2020-12-05 14:05 | disposition home or self-care (01) ==
LOC: EDUNIT# 18:28 → ER 18:31 → UNDOADMOB 19:40 → 4TH 19:40 → UNDODISOB 12-05 14:20
PROVIDERS: ADMIT Family Medicine; ATTEND Family Medicine
DX: R07.89 Other chest pain (principal); K20.90 Esophagitis, unspecified without bleeding; E11.69 Type 2 diabetes mellitus with other specified complication; E11.40 Type 2 diabetes mellitus with diabetic neuropathy, unspecified; E78.1 Pure hyperglyceridemia; E78.00 Pure hypercholesterolemia, unspecified; I10 Essential (primary) hypertension; K21.9 Gastro-esophageal reflux disease without esophagitis; J45.909 Unspecified asthma, uncomplicated; E78.5 Hyperlipidemia, unspecified; E66.01 Morbid (severe) obesity due to excess calories; M19.90 Unspecified osteoarthritis, unspecified site; F32.9 Major depressive disorder, single episode, unspecified; F41.9 Anxiety disorder, unspecified; F98.8 Other specified behavioral and emotional disorders with onset usually occurring in childhood and adolescence; Z88.8 Allergy status to other drugs, medicaments and biological substances; Z88.5 Allergy status to narcotic agent; Z88.1 Allergy status to other antibiotic agents; Z88.2 Allergy status to sulfonamides; Z79.899 Other long term (current) drug therapy; Z90.49 Acquired absence of other specified parts of digestive tract; Z79.4 Long term (current) use of insulin; Z68.42 Body mass index [BMI] 45.0-49.9, adult
CPT/HCPCS: 71045; 78452; 80053 ×3; 80061; 80306; 81000; 82010; 82150; 82550; 82553; 82962 ×3; 83036; 83690; 83735; 83874; 83880; 84443; 84484; 85025 ×3; 85610; 85730; 93005 ×3; 93017; 93041; 93306; 94760 ×2; 99284; A9502; G0378; 36415

== ENCOUNTER 2020-12-12 11:40 | Emergency (ER) | payer MEDICARE, MEDICAID ==
[~2020-12-12] VITALS: Ht 177 cm; Wt 145.0 kg
[~2020-12-12 11:40] MED LIST changes: +ACET-2840 PO; +ASPI-1238 PO; +MAG-141 PO; +MAGN400T39 PO; +PIOG45TA65 PO; +PREG150C46 PO; +TIZA4TAB4 PO
[2020-12-12 11:55] LABS: CLARITY,URINE CLEAR; COLOR,URINE YELLOW; GLUCOSE, URINE (UA) 3+ (NEGATIVE); KETONES,URINE 2+ (NEGATIVE); LEUKOCYTE ESTERASE ,URINE NEGATIVE (NEGATIVE); NITRITE,URINE NEGATIVE (NEGATIVE); PROTEIN,URINE NEGATIVE (NEGATIVE)
--- NOTE | 2020-12-12 11:55 | ED General ---
General Chief Complaint: Dizziness/Syncope Stated Complaint: DIZZINESS/LOSS OF APPETITE Nursing Triage Note: ARRIVED VIA AMB TO ROOM 06 WITH COMPLAINTS OF BILAT CHEST PAIN, DIZZINESS, AND NOT BEING ABLE TO EAT OR DRINK SINCE SAT. STATES ALL HE WANTS TO DO IS BE ABLE TO GO HOME AND PLAY HIS GAMES IN [place]. Nursing Sepsis Screen: No Definite Risk Source of Information: Patient Exam Limitations: No Limitations History of Present Illness Date Seen by Provider: Dec 12, 2020 Time Seen by Provider: 11:53 Initial Comments To ER with reports of dizziness loss of appetite pain in both sides of his chest that wraps around to his back after eating. States that he was sent out here from [facility] where he presented for follow-up from his visit last week where he had "a bunch of tests on his heart" that he has been unable to eat or drink much for the past 2 days. Timing/Duration: 1-2 Days Severity: Moderate Allergies and Home Medications Allergies Coded Allergies: sertraline (Verified Allergy, Severe, RASH, SWELLING, 04/09/20) "FELT LOOPY" bupropion (Verified Allergy, Unknown, "CAUSED ME TO BANG MY HEAD ON THE WALL", 04/09/20) buspirone (Verified Allergy, Unknown, THROAT SWELLED, 04/09/20) cephalexin (Verified Allergy, Unknown, HIVES, 04/09/20) codeine (Verified Allergy, Unknown, 04/09/20) sulfamethoxazole (Verified Adverse Reaction, Unknown, Itching, 04/09/20) trimethoprim (Verified Adverse Reaction, Unknown, Itching, 04/09/20) Home Medications Acetaminophen 650 Mg Tablet.er, 1,300 MG PO Q6H PRN for PAIN-MILD (1-4), (Reported) Aspirin 81 Mg Tablet.dr, 81 MG PO DAILY Prescribed by: ORI LIAO on 12/05/20 1251 Insulin Degludec 200 Unit/1 Ml Insuln.pen, 160 UNIT SQ HS, (Reported) Lisinopril 20 Mg Tablet, 20 MG PO DAILY, (Reported) Mag Hydrox/Aluminum Hyd/Simeth 355 Ml Oral.susp, 10-20 ML PO Q6H PRN for HEARTBURN, (Reported) Magnesium Oxide 400 Mg Tablet, 400 MG PO DAILY, (Reported) Pantoprazole Sodium 40 Mg Tablet.dr, 40 MG PO DAILY, (Reported) Pioglitazone HCl 45 Mg Tablet, 45 MG PO DAILY, (Reported) Pregabalin 150 Mg Capsule, 150 MG PO BID, (Reported) Tizanidine HCl 4 Mg Tablet, 1 EA PO Q6H PRN for MUSCLE SPASMS, (Reported) Patient Home Medication List Home Medication List Reviewed: Yes Review of Systems Review of Systems Constitutional: see HPI EENTM: see HPI Respiratory: no symptoms reported Cardiovascular: see HPI, chest pain Gastrointestinal: nausea Genitourinary: no symptoms reported Musculoskeletal: no symptoms reported Skin: no symptoms reported Psychiatric/Neurological: No Symptoms Reported Hematologic/Lymphatic: No Symptoms Reported Immunological/Allergic: no symptoms reported Past Egekdjy-Abelxr-Dpdpkh Hx Patient Social History Drug of Choice: HX OF MARIJUANA 2nd Hand Smoke Exposure: No Recent Infectious Disease Expo: No Recent Hopitalizations: No Immunizations Up To Date Tetanus Booster (TDap): More than 5yrs PED Vaccines UTD: No Seasonal Allergies Seasonal Allergies: Yes Past Medical History Surgeries: Yes (HYPOGONADISM SURGERY ; ENDOSCOPIES) Gallbladder, Testicular Respiratory: Yes Asthma Currently Using CPAP: No Currently Using BIPAP: No Cardiac: Yes High Cholesterol, Hypertension, Palpitations Neurological: Yes Neuropathy Reproductive Disorders: Yes (HYPOGONADISM sx as an ) Sexually Transmitted Disease: No HIV/AIDS: No Genitourinary: No Gastrointestinal: Yes (ENDOSCOPIES) Gastroesophageal Reflux, Diverticulosis, Esophagitis Musculoskeletal: Yes Arthritis Endocrine: Yes (MORBID OBESITY; DM TYPE 2 (INSULIN AND PO)) Diabetes, Insulin dep HEENT: Yes (GLASSES) Loss of Vision: Denies Hearing Impairment: Denies Cancer: No Psychosocial: Yes ADD/ADHD, Anxiety, Depression Integumentary: No Blood Disorders: No Adverse Reaction/Blood Tranf: No (N/A) Family Medical History Arthritis 19 MOTHER Congenital heart disease Diabetes mellitus 19 FATHER 19 MOTHER FH: brain aneurysm 19 FATHER (cause of - 09/13/2015) Glaucoma 19 FATHER Hypertension 19 FATHER 19 MOTHER Psychosocial problem 19 MOTHER (depression) No Pertinent Family Hx Physical Exam Vital Signs Vital Signs - First Documented 12/12/20 11:45 Temp 36.7 Pulse 96 Resp 16 Pulse Ox 98 Capillary Refill : Less Than 3 Seconds Height, Weight, BMI Height: 5'11.00" Weight: 324lbs. 0.0oz. 146.639659zg; 46.00 BMI Method:Stated General Appearance: No Apparent Distress, WD/WN, Chronically ill Eyes: Bilateral Eye Normal Inspection, Bilateral Eye PERRL Neck: Full Range of Motion, Normal Inspection Respiratory: No Accessory Muscle Use, No Respiratory Distress Cardiovascular: Regular Rate, Rhythm, Normal Peripheral Pulses Gastrointestinal: Normal Bowel Sounds, Non Tender, Soft Extremity: Normal Capillary Refill, Normal Inspection Neurologic/Psychiatric: Alert, Oriented x3 Skin: Normal Color, Warm/Dry Progress/Results/Core Measures Suspected Sepsis Recent Fever Within 48 Hours: No Infection Criteria Present: None New/Unexplained Altered Menta: No Sepsis Screen: No Definite Risk SIRS Temperature: Pulse: 96 Respiratory Rate: 16 Laboratory Tests 12/12/20 11:50: White Blood Count 9.4 Blood Pressure / Mean: Laboratory Tests 12/12/20 11:50: Creatinine 0.88, Platelet Count 252, Total Bilirubin 0.7 Results/Orders Lab Results Laboratory Tests Test 12/12/20 11:48 12/12/20 11:50 Range/Units Urine Color YELLOW Urine Clarity CLEAR Urine pH 5.0 5-9 Urine Specific [place] 1.025 H 1.016-1.022 Urine Protein NEGATIVE NEGATIVE Urine Glucose (UA) 3+ H NEGATIVE Urine Ketones 2+ H NEGATIVE Urine Nitrite NEGATIVE NEGATIVE Urine Bilirubin 1+ H NEGATIVE Urine Urobilinogen 0.2 < = 1.0 MG/DL Urine Leukocyte Esterase NEGATIVE NEGATIVE Urine RBC (Auto) NEGATIVE NEGATIVE Urine RBC NONE /HPF Urine WBC NONE /HPF Urine Squamous Epithelial Cells RARE /HPF Urine Crystals NONE /LPF Urine Bacteria NEGATIVE /HPF Urine Casts NONE /LPF Urine Mucus NEGATIVE /LPF Urine Culture Indicated NO White Blood Count 9.4 4.3-11.0 10^3/uL Red Blood Count 5.49 4.30-5.52 10^6/uL Hemoglobin 16.4 13.3-17.7 g/dL Hematocrit 49 40-54 % Mean Corpuscular Volume 89 80-99 fL Mean Corpuscular Hemoglobin 30 25-34 pg Mean Corpuscular Hemoglobin Concent 34 32-36 g/dL Red Cell Distribution Width 12.7 10.0-14.5 % Platelet Count 252 130-400 10^3/uL Mean Platelet Volume 10.9 9.0-12.2 fL Immature Granulocyte % (Auto) 5 % Neutrophils (%) (Auto) 60 42-75 % Lymphocytes (%) (Auto) 27 12-44 % Monocytes (%) (Auto) 6 0-12 % Eosinophils (%) (Auto) 1 0-10 % Basophils (%) (Auto) 1 0-10 % Neutrophils # (Auto) 5.6 1.8-7.8 10^3/uL Lymphocytes # (Auto) 2.6 1.0-4.0 10^3/uL Monocytes # (Auto) 0.6 0.0-1.0 10^3/uL Eosinophils # (Auto) 0.1 0.0-0.3 10^3/uL Basophils # (Auto) 0.1 0.0-0.1 10^3/uL Immature Granulocyte # (Auto) 0.4 H 0.0-0.1 10^3/uL Sodium Level 134 L 135-145 MMOL/L Potassium Level 4.7 3.6-5.0 MMOL/L Chloride Level 102 98-107 MMOL/L Carbon Dioxide Level 18 L 21-32 MMOL/L Anion Gap 14 5-14 MMOL/L Blood Urea Nitrogen 14 7-18 MG/DL Creatinine 0.88 0.60-1.30 MG/DL Estimat Glomerular Filtration Rate > 60 BUN/Creatinine Ratio 16 Glucose Level 158 H 70-105 MG/DL Calcium Level 9.4 8.5-10.1 MG/DL Corrected Calcium 9.2 8.5-10.1 MG/DL Total Bilirubin 0.7 0.1-1.0 MG/DL Aspartate Amino Transf (AST/SGOT) 41 H 5-34 U/L Alanine Aminotransferase (ALT/SGPT) 45 0-55 U/L Alkaline Phosphatase 71 40-136 U/L Troponin I < 0.028 <0.028 NG/ML Total Protein 7.8 6.4-8.2 GM/DL Albumin 4.2 3.2-4.5 GM/DL Beta-Hydroxybutyrate (Chem panel) 2.49 H 0.00-0.27 MMOL/L My Orders Orders - ALDEN CARBAJAL SWEEP PRESS OPERATOR Cbc With Automated Diff (12/12/20 11:48) Comprehensive Metabolic Panel (12/12/20 11:48) Ua Culture If Indicated (12/12/20 11:48) Ed Iv/Invasive Line Start (12/12/20 11:48) Troponin I (12/12/20 11:48) Ekg Tracing (12/12/20 11:48) Chest 1 View, Ap/Pa Only (12/12/20 11:48) Lactated Ringers (Lr 1000 Ml Iv Solution (12/12/20 12:00) Ondansetron Injection (Zofran Injectio (12/12/20 12:00) Beta Hydroxybutyrate (12/12/20 11:48) Lactated Ringers (Lr 1000 Ml Iv Solution (12/12/20 12:45) Medications Given in ED Current Medications Medications Dose Ordered Sig/Nkiia Route Start Time Stop Time Status Last Admin Dose Admin Ondansetron HCl 8 mg ONCE ONCE IVP 12/12/20 12:00 12/12/20 12:01 DC 12/12/20 11:59 8 MG Vital Signs/I&O 12/12/20 11:45 Temp 36.7 Pulse 96 Resp 16 B/P (MAP) Pulse Ox 98 Capillary Refill : Less Than 3 Seconds Departure Impression Primary Impression: Nausea & vomiting Additional Impression: Ketosis Disposition: HOME, SELF-CARE Condition: Improved Departure-Patient Inst. Decision time for Depature: 13:06 Referrals: [facility]/ (PCP) Primary Care Physician NERISSA MARTINEZ (Family) Primary Care Physician Patient Instructions: Nausea and Vomiting, Adult ED Add. Discharge Instructions: 1. Medication as directed. Return to ER for any worsening. Follow-up with your doctor next week. All discharge instructions reviewed with patient and/or family. Voiced understanding. Scripts Metoclopramide HCl (Reglan) 5 Mg Tablet 5 MG PO BID, #10 TAB Prov: ALDEN CARBAJAL APRN 12/12/20 ALDEN CARBAJAL APRN Dec 12, 2020 11:55
[2020-12-12] MEDS ORDERED: LACTATED RINGERS 1,000 ML IV SCH ×2 (12:00→12:45)
[2020-12-12] MEDS ORDERED: ONDANSETRON 4 MG/2 ML (SDV) Z0FRAN IVP ONE (12:00)
[2020-12-12 12:02] LABS: BASOPHILS # (AUTO) 0.1 10^3/uL (0.0-0.1); BASOPHILS % (AUTO) 1 % (0-10); EOSINOPHILS # (AUTO) 0.1 10^3/uL (0.0-0.3); EOSINOPHILS % (AUTO) 1 % (0-10); HEMATOCRIT 49 % (40-54); HEMOGLOBIN 16.4 g/dL (13.3-17.7); LYMPHOCYTES # (AUTO) 2.6 10^3/uL (1.0-4.0); LYMPHOCYTES % (AUTO) 27 % (12-44); MEAN CORPUSCULAR HEMOGLOBIN 30 pg (25-34); MEAN CORPUSCULAR HGB CONC 34 g/dL (32-36); MEAN CORPUSCULAR VOLUME 89 fL (80-99); MEAN PLATELET VOLUME 10.9 fL (9.0-12.2); MONOCYTES # (AUTO) 0.6 10^3/uL (0.0-1.0); MONOCYTES % (AUTO) 6 % (0-12); NEUTROPHILS # (AUTO) 5.6 10^3/uL (1.8-7.8); NEUTROPHILS % (AUTO) 60 % (42-75); PLATELET COUNT 252 10^3/uL (130-400); WHITE BLOOD COUNT 9.4 10^3/uL (4.3-11.0)
[2020-12-12 12:14] LABS: BACTERIA,URINE NEGATIVE /HPF; BILIRUBIN,URINE 1+ (NEGATIVE); SQUAMOUS EPITHELIAL CELL,UR RARE /HPF
[2020-12-12 12:15] LABS: ALBUMIN 4.2 GM/DL (3.2-4.5); CHLORIDE 102 MMOL/L (98-107); POTASSIUM 4.7 MMOL/L (3.6-5.0); SODIUM 134 MMOL/L (135-145)
[2020-12-12 12:16] LABS: CALCIUM 9.4 MG/DL (8.5-10.1)
[2020-12-12 12:17] LABS: GLUCOSE 158 MG/DL (70-105)
[2020-12-12 12:18] LABS: TOTAL PROTEIN 7.8 GM/DL (6.4-8.2)
[2020-12-12 12:19] LABS: BILIRUBIN,TOTAL 0.7 MG/DL (0.1-1.0); CARBON DIOXIDE 18 MMOL/L (21-32)
[2020-12-12 12:21] LABS: ALKALINE PHOSPHATASE 71 U/L (40-136); CREATININE SERUM 0.88 MG/DL (0.60-1.30); GFR ESTIMATED > 60
[2020-12-12 12:22] LABS: BUN/CREATININE RATIO 16
--- NOTE | 2020-12-12 12:22 | Diagnostic Imaging Report ---
INDICATION: Chest pain. Frontal chest obtained at 12:10 p.m. and compared to 12/03/2020. Heart and mediastinal silhouette are normal in appearance. The lungs are clear. There is no pneumothorax or pleural fluid. IMPRESSION: No acute process in the chest. Dictated by: Dictated on workstation # [id number]
[2020-12-12 12:24] LABS: ALANINE AMINOTRANSFERASE 45 U/L (0-55)
[2020-12-12] MEDS ORDERED: METO5TAB75 PO (13:06)
[2020-12-12 13:27] VITALS: BP 154/93
[2020-12-12] MEDS ORDERED: METOCLOPRAMIDE INJ 10 MG/2 ML (REGLAN) IVP ONE (13:30)
== END 2020-12-12 13:27 | disposition home or self-care (01) ==
LOC: EDUNIT# 11:40 → ER 11:43
DX: R11.2 Nausea with vomiting, unspecified (principal); E11.10 Type 2 diabetes mellitus with ketoacidosis without coma; I10 Essential (primary) hypertension; K21.9 Gastro-esophageal reflux disease without esophagitis; E66.01 Morbid (severe) obesity due to excess calories; F41.9 Anxiety disorder, unspecified; Z88.2 Allergy status to sulfonamides; Z88.1 Allergy status to other antibiotic agents; Z88.5 Allergy status to narcotic agent; Z88.8 Allergy status to other drugs, medicaments and biological substances; Z68.42 Body mass index [BMI] 45.0-49.9, adult; Z82.61 Family history of arthritis; Z82.49 Family history of ischemic heart disease and other diseases of the circulatory system; Z79.4 Long term (current) use of insulin; Z79.82 Long term (current) use of aspirin
CPT/HCPCS: 36415; 71045; 80053; 81000; 82010; 84484; 85025; 93005

== ENCOUNTER → 2021-06-13 | Outpatient (CLI) | payer MEDICARE, MEDICAID ==
[~2021-06-13] MED LIST changes: +ACYC-112 PO; -ACYC800T PO; -DOXY100C2 PO; +DOXY100C5 PO; +METO5TAB75 PO; -OMEP40CA27 PO; +OMEP40CA6 PO
== END ==
LOC: CARD 10:09
PROVIDERS: ATTEND Pediatrics
DX: I51.7 Cardiomegaly (principal)
CPT/HCPCS: 93306

== ENCOUNTER 2021-07-01 13:44 | Emergency (ER) | payer MEDICARE, MEDICAID ==
[~2021-07-01] VITALS: Ht 177 cm; Wt 163.0 kg
--- NOTE | 2021-07-01 15:02 | ED Cough/URI ---
General Chief Complaint: COVID19 Suspect/Confirmed Stated Complaint: SOB,COUGH,DIZZINESS Nursing Triage Note: PT CO OF COUGH, SOA FOR A FEW DAYS HAS BEEN ON Z-PACK BY [facility]. DENIES FEVERS, STATES HAS HAD SOME VOMITING TODAY Source: patient Exam Limitations: no limitations History of Present Illness Date Seen by Provider: Jul 01, 2021 Time Seen by Provider: 14:50 Initial Comments Patient is a 41-year-old male who presents to the emergency room today with a chief complaint of 2 weeks of fatigue, shortness of breath, cough, generalized malaise. He states he has seen [facility] several times over the course of the last 2 weeks and is just not getting better. Has been tested for Covid 2 weeks ago reportedly it was negative. Has had slightly decreased appetite, a little bit of diarrhea. No urinary complaints. States his cough is productive. Is not a smoker. Has had some posttussive emesis. All other review of systems reviewed and negative except as stated. Timing/Duration: other (2 weeks) Severity/Quality: moderate, productive cough Prior Episodes/Possible Cause: illness exposure Associated Symptoms: chest pain/soreness, cough, nasal congestion, shortness of breath Allergies and Home Medications Allergies Coded Allergies: sertraline (Verified Allergy, Severe, RASH, SWELLING, 04/09/20) "FELT LOOPY" bupropion (Verified Allergy, Unknown, "CAUSED ME TO BANG MY HEAD ON THE WALL", 04/09/20) buspirone (Verified Allergy, Unknown, THROAT SWELLED, 04/09/20) cephalexin (Verified Allergy, Unknown, HIVES, 04/09/20) codeine (Verified Allergy, Unknown, 04/09/20) sulfamethoxazole (Verified Adverse Reaction, Unknown, Itching, 04/09/20) trimethoprim (Verified Adverse Reaction, Unknown, Itching, 04/09/20) Patient Home Medication List Home Medication List Reviewed: Yes Acetaminophen (Tylenol 8 Hour) 650 Mg Tablet.er, 1,300 MG PO Q6H PRN for PAIN- MILD (1-4), (Reported) Entered as Reported by: ZACHARY HATCH on 12/04/20 1538 Aspirin (Aspirin EC) 81 Mg Tablet.dr, 81 MG PO DAILY Prescribed by: ORI LIAO on 12/05/20 1251 Benzonatate (Tessalon Perle) 100 Mg Capsule, 100 MG PO BID PRN for cough Prescribed by: MILO KHAN on 07/01/21 1613 Doxycycline Hyclate (Doxycycline Hyclate) 100 Mg Tablet, 100 MG PO BID Prescribed by: MILO KHAN on 07/01/21 1612 Insulin Degludec (Tresiba Flextouch U-200) 200 Unit/1 Ml Insuln.pen, 160 UNIT SQ HS, (Reported) Entered as Reported by: CODY RIDLEY on 06/28/18 1444 Lisinopril (Lisinopril) 20 Mg Tablet, 20 MG PO DAILY, (Reported) Entered as Reported by: LAURYN MOLINA on 05/16/17 1750 Mag Hydrox/Aluminum Hyd/Simeth (Mylanta Maximum Strength Liq) 355 Ml Oral.susp, 10-20 ML PO Q6H PRN for HEARTBURN, (Reported) Entered as Reported by: AZCHARY HATCH on 12/04/20 1538 Magnesium Oxide (Magnesium) 400 Mg Tablet, 400 MG PO DAILY, (Reported) Entered as Reported by: ZACHARY HATCH on 12/04/20 153 Metoclopramide HCl (Reglan) 5 Mg Tablet, 5 MG PO BID Prescribed by: ALDEN CARBAJAL on 12/12/20 1306 Pantoprazole Sodium (Pantoprazole Sodium) 40 Mg Tablet.dr, 40 MG PO DAILY, (Reported) Entered as Reported by: TRISTON BETH on 04/09/20 1431 Pioglitazone HCl (Pioglitazone HCl) 45 Mg Tablet, 45 MG PO DAILY, (Reported) Entered as Reported by: ZACHARY HATCH on 12/04/20 1538 Pregabalin (Pregabalin) 150 Mg Capsule, 150 MG PO BID, (Reported) Entered as Reported by: ZACHARY HATCH on 12/04/20 153 Tizanidine HCl (Tizanidine HCl) 4 Mg Tablet, 1 EA PO Q6H PRN for MUSCLE SPASMS, (Reported) Entered as Reported by: ZACHARY HATCH on 12/04/20 153 Review of Systems Review of Systems Constitutional: see HPI EENTM: nose congestion Respiratory: cough, short of breath Cardiovascular: palpitations Genitourinary: no symptoms reported Musculoskeletal: no symptoms reported Skin: no symptoms reported Psychiatric/Neurological: No Symptoms Reported All Other Systems Reviewed Negative Unless Noted: Yes Past Ctfrgjb-Ywiior-Cehsah Hx Patient Social History Tobacco Use?: No Substance use?: No Alcohol Use?: No Pt feels they are or have been: No Immunizations Up To Date Tetanus Booster (TDap): More than 5yrs PED Vaccines UTD: No Seasonal Allergies Seasonal Allergies: Yes Past Medical History Surgeries: Yes (HYPOGONADISM SURGERY ; ENDOSCOPIES) Gallbladder, Testicular Respiratory: Yes Asthma Currently Using CPAP: No Currently Using BIPAP: No Cardiac: Yes High Cholesterol, Hypertension, Palpitations Neurological: Yes Neuropathy Reproductive Disorders: Yes (HYPOGONADISM sx as an infant) Sexually Transmitted Disease: No HIV/AIDS: No Genitourinary: No Gastrointestinal: Yes (ENDOSCOPIES) Gastroesophageal Reflux, Diverticulosis, Esophagitis Musculoskeletal: Yes Arthritis Endocrine: Yes (MORBID OBESITY; DM TYPE 2 (INSULIN AND PO)) Diabetes, Insulin dep HEENT: Yes (GLASSES) Loss of Vision: Denies Hearing Impairment: Denies Cancer: No Psychosocial: Yes ADD/ADHD, Anxiety, Depression Integumentary: No Blood Disorders: No Adverse Reaction/Blood Tranf: No (N/A) Family Medical History Arthritis 19 MOTHER Congenital heart disease Diabetes mellitus 19 FATHER 19 MOTHER FH: brain aneurysm 19 FATHER (cause of - 09/13/2015) Glaucoma 19 FATHER Hypertension 19 FATHER 19 MOTHER Psychosocial problem 19 MOTHER (depression) No Pertinent Family Hx Physical Exam Vital Signs - First Documented 07/01/21 14:15 Temp 36.9 Pulse 121 Resp 18 B/P (MAP) 158/93 (114) Pulse Ox 96 Capillary Refill : Less Than 3 Seconds Height: 5'11.00" Weight: 324lbs. 0.0oz. 146.165238rm; 52.00 BMI Method:Stated General Appearance: WD/WN, no apparent distress Eyes: Bilateral Eye Normal Inspection, Bilateral Eye PERRL, Bilateral Eye EOMI HEENT: PERRL/EOMI Neck: normal inspection Respiratory: no respiratory distress, no accessory muscle use, crackles (right base), other (oxygen sats 92% on RA) Cardiovascular: regular rate, rhythm, tachycardia Gastrointestinal: normal bowel sounds, non tender, soft Extremities: non-tender, normal inspection, no pedal edema, no calf tenderness Neurologic/Psychiatric: alert, normal mood/affect, oriented x 3 Skin: normal color, warm/dry Focused Exam Lactate Level 07/01/21 15:30: Lactic Acid Level 1.74 Lactic Acid Level Laboratory Tests Test 07/01/21 15:30 Lactic Acid Level 1.74 MMOL/L (0.50-2.00) Progress/Results/Core Measures Suspected Sepsis SIRS Temperature: Pulse: 121 Respiratory Rate: 18 Laboratory Tests 07/01/21 14:25: White Blood Count 9.6 Blood Pressure 158 /93 Mean: 114 07/01/21 15:30: Lactic Acid Level 1.74 Laboratory Tests 07/01/21 14:25: Creatinine 0.78, INR Comment 1.0, Platelet Count 245, Total Bilirubin 0.6 Results/Orders Lab Results Laboratory Tests Test 07/01/21 14:25 07/01/21 14:28 07/01/21 14:33 07/01/21 15:30 Range/Units White Blood Count 9.6 4.3-11.0 10^3/uL Red Blood Count 5.26 4.30-5.52 10^6/uL Hemoglobin 15.5 13.3-17.7 g/dL Hematocrit 44 40-54 % Mean Corpuscular Volume 83 80-99 fL Mean Corpuscular Hemoglobin 30 25-34 pg Mean Corpuscular Hemoglobin Concent 35 32-36 g/dL Red Cell Distribution Width 12.6 10.0-14.5 % Platelet Count 245 130-400 10^3/uL Mean Platelet Volume 11.3 9.0-12.2 fL Immature Granulocyte % (Auto) 2 % Neutrophils (%) (Auto) 76 H 42-75 % Lymphocytes (%) (Auto) 15 12-44 % Monocytes (%) (Auto) 6 0-12 % Eosinophils (%) (Auto) 0 0-10 % Basophils (%) (Auto) 0 0-10 % Neutrophils # (Auto) 7.3 1.8-7.8 X 10^3 Lymphocytes # (Auto) 1.4 1.0-4.0 X 10^3 Monocytes # (Auto) 0.6 0.0-1.0 X 10^3 Eosinophils # (Auto) 0.0 0.0-0.3 10^3/uL Basophils # (Auto) 0.0 0.0-0.1 10^3/uL Immature Granulocyte # (Auto) 0.2 H 0.0-0.1 10^3/uL Prothrombin Time 13.6 12.2-14.7 SEC INR Comment 1.0 0.8-1.4 Activated Partial Thromboplast Time 27 24-35 SEC D-Dimer 0.09 0.00-0.49 UG/ML Sodium Level 140 135-145 MMOL/L Potassium Level 4.1 3.6-5.0 MMOL/L Chloride Level 109 H 98-107 MMOL/L Carbon Dioxide Level 18 L 21-32 MMOL/L Anion Gap 13 5-14 MMOL/L Blood Urea Nitrogen 16 7-18 MG/DL Creatinine 0.78 0.60-1.30 MG/DL Estimat Glomerular Filtration Rate 109 BUN/Creatinine Ratio 21 Glucose Level 177 H 70-105 MG/DL Calcium Level 9.3 8.5-10.1 MG/DL Corrected Calcium 9.2 8.5-10.1 MG/DL Total Bilirubin 0.6 0.1-1.0 MG/DL Aspartate Amino Transf (AST/SGOT) 34 5-34 U/L Alanine Aminotransferase (ALT/SGPT) 59 H 0-55 U/L Alkaline Phosphatase 68 40-136 U/L C-Reactive Protein High Sensitivity 0.87 H 0.00-0.50 MG/DL Total Protein 7.1 6.4-8.2 GM/DL Albumin 4.1 3.2-4.5 GM/DL Influenza Type A (RT-PCR) Not Detected Not Detecte Influenza Type B (RT-PCR) Not Detected Not Detecte SARS-CoV-2 RNA (RT-PCR) Not Detected Not Detecte Glucometer 174 H 70-110 MG/DL Lactic Acid Level 1.74 0.50-2.00 MMOL/L Micro Results Microbiology 07/01/21 Blood Culture - Preliminary, Resulted No growth My Orders Orders - MILO KHAN MD Cbc With Automated Diff (07/01/21 15:00) Comprehensive Metabolic Panel (07/01/21 15:00) Blood Culture (07/01/21 15:00) Protime With Inr (07/01/21 15:00) Partial Thromboplastin Time (07/01/21 15:00) Chest 1 View, Ap/Pa Only (07/01/21 15:00) Ed Iv/Invasive Line Start (07/01/21 15:00) Ed Iv/Invasive Line Start (07/01/21 15:00) Vital Signs Adult Sepsis Patie Q15M (07/01/21 15:00) O2 (07/01/21 15:00) Remove Rings In Anticipation O (07/01/21 15:00) Lactic Acid Analyzer (07/01/21 15:00) Fibrin Degradation Products (07/01/21 15:00) Hs C Reactive Protein (07/01/21 15:00) Ns Iv 1000 Ml (Sodium Chloride 0.9%) (07/01/21 15:15) Vital Signs/I&O 07/01/21 07/01/21 14:15 16:40 Temp 36.9 Pulse 121 88 Resp 18 18 B/P (MAP) 158/93 (114) 130/83 Pulse Ox 96 96 Capillary Refill : Less Than 3 Seconds Blood Pressure Mean: 114 Point of Care Testing Finger Stick Blood Glucose: 174 Blood Glucose Action Taken: REPORTED TO DR Crane Progress Note : Time: 16:08 Progress Note Reevaluated, feeling a little bit better. Heart rate down to 108. Oxygen saturations 95/96%. I reviewed all of his labs and imaging with him. He does not have Covid today. No evidence for pneumonia on chest x-ray. Serum sepsis markers are all reassuring. Will change his antibiotics out to doxycycline for the next 10 days, a little Tylenol with codeine for cough. I have encouraged him to drink plenty of fluids to stay well-hydrated. Recommended that he follow-up with [facility] in a week. He verbalized understanding. All questions are sought and answered. Patient is stable for discharge. Diagnostic Imaging Diagonstic Imaging: Xray Plain Films/CT/US/NM/MRI: chest Comments NAME: JOHN CHAVEZ [facility] REC#: [id number] PT STATUS: REG ER : 1980 PHYSICIAN: MILO KHAN MD ADMIT DATE: 07/01/21/ER Draft Date of Exam:07/01/21 CHEST 1 VIEW, AP/PA ONLY INDICATION: Sepsis. TIME OF EXAM: 3:29 p.m. COMPARISON: Correlation is made with prior chest from 12/12/2020. FINDINGS: The heart size is normal. The pulmonary vascularity is unremarkable. The lungs are clear. No infiltrate, effusion or pneumothorax is detected. IMPRESSION: No acute cardiopulmonary process is detected. Dictated on workstation # [id number] Dict: 07/01/21 1556 Trans: 07/01/21 1557 [id number] Interpreted by: DANIEL MONREAL MD Departure Impression Primary Impression: Bronchitis Disposition: 01 HOME, SELF-CARE Condition: Stable Departure-Patient Inst. Decision time for Depature: 16:09 Referrals: [facility]/JORDEN (PCP) Primary Care Physician NERISSA MARTINEZ (Family) Primary Care Physician Patient Instructions: Acute Bronchitis, Adult (DC) Add. Discharge Instructions: Drink plenty of fluids to stay well-hydrated. Take the antibiotics, doxycycline 1 twice a day for the next 10 days. Tessalon Perles for cough, 1 twice a day as needed. Jfwf-lbf-nzrxkox Robitussin-DM or Mucinex DM for congestion and to help thin secretions. If you continue to worsen, have increasing shortness of breath, productive cough, high fevers please come back to the emergency room for reevaluation. Follow-up with [facility] in about 1 week. Scripts Benzonatate (Tessalon Perle) 100 Mg Capsule 100 MG PO BID PRN for cough, #30 CAP Prov: MILO KHAN MD 07/01/21 Doxycycline Hyclate (Doxycycline Hyclate) 100 Mg Tablet 100 MG PO BID for 10 Days, #20 TAB Prov: MILO KHAN MD 07/01/21 MILO KHAN MD Jul 01, 2021 15:02
[2021-07-01 15:08] LABS: BASOPHILS % (AUTO) 0 % (0-10); EOSINOPHILS % (AUTO) 0 % (0-10); HEMATOCRIT 44 % (40-54); HEMOGLOBIN 15.5 g/dL (13.3-17.7); LYMPHOCYTES # (AUTO) 1.4 X 10^3 (1.0-4.0); LYMPHOCYTES % (AUTO) 15 % (12-44); MEAN CORPUSCULAR HEMOGLOBIN 30 pg (25-34); MEAN CORPUSCULAR HGB CONC 35 g/dL (32-36); MEAN CORPUSCULAR VOLUME 83 fL (80-99); MEAN PLATELET VOLUME 11.3 fL (9.0-12.2); MONOCYTES # (AUTO) 0.6 X 10^3 (0.0-1.0); MONOCYTES % (AUTO) 6 % (0-12); NEUTROPHILS # (AUTO) 7.3 X 10^3 (1.8-7.8); NEUTROPHILS % (AUTO) 76 % (42-75); PLATELET COUNT 245 10^3/uL (130-400); WHITE BLOOD COUNT 9.6 10^3/uL (4.3-11.0)
[2021-07-01 15:10] LABS: ALBUMIN 4.1 GM/DL (3.2-4.5); POTASSIUM 4.1 MMOL/L (3.6-5.0)
[2021-07-01 15:11] LABS: CALCIUM 9.3 MG/DL (8.5-10.1)
[2021-07-01 15:13] LABS: TOTAL PROTEIN 7.1 GM/DL (6.4-8.2)
[2021-07-01 15:14] LABS: BILIRUBIN,TOTAL 0.6 MG/DL (0.1-1.0)
[2021-07-01] MEDS ORDERED: NS IV 1000 ML 1,000 ML IV SCH (15:15)
[2021-07-01 15:16] LABS: CREATININE SERUM 0.78 MG/DL (0.60-1.30)
[2021-07-01 15:18] LABS: FIBRIN DEGRADATION PRODUCTS 0.09 UG/ML (0.00-0.49); PROTHROMBIN TIME PATIENT 13.6 SEC (12.2-14.7)
--- NOTE | 2021-07-01 15:57 | Diagnostic Imaging Report ---
INDICATION: Sepsis. TIME OF EXAM: 3:29 p.m. COMPARISON: Correlation is made with prior chest from 12/12/2020. FINDINGS: The heart size is normal. The pulmonary vascularity is unremarkable. The lungs are clear. No infiltrate, effusion or pneumothorax is detected. IMPRESSION: No acute cardiopulmonary process is detected. Dictated by: Dictated on workstation # [id number]
[2021-07-01] MEDS ORDERED: DOXY100T2 PO (16:12)
[2021-07-01] MEDS ORDERED: BENZ-13 PO (16:13)
[2021-07-01 16:40] VITALS: BP 130/83
== END 2021-07-01 16:40 | disposition home or self-care (01) ==
LOC: EDUNIT# 13:44 → ER 13:45
DX: J45.909 Unspecified asthma, uncomplicated (principal); E11.40 Type 2 diabetes mellitus with diabetic neuropathy, unspecified; I10 Essential (primary) hypertension; F41.9 Anxiety disorder, unspecified; F32.9 Major depressive disorder, single episode, unspecified; F90.9 Attention-deficit hyperactivity disorder, unspecified type; K21.9 Gastro-esophageal reflux disease without esophagitis; E66.01 Morbid (severe) obesity due to excess calories; Z20.822 Contact with and (suspected) exposure to COVID-19; Z88.8 Allergy status to other drugs, medicaments and biological substances; Z79.4 Long term (current) use of insulin; Z79.82 Long term (current) use of aspirin; Z79.899 Other long term (current) drug therapy
CPT/HCPCS: 36415; 71045; 80053; 82947; 83605; 85025; 85379; 85610; 85730; 86141; 87040; 87636

== ENCOUNTER 2021-09-10 18:54 | Emergency (ER) | payer MEDICARE, MEDICAID ==
[~2021-09-10] VITALS: Ht 177.8 cm; Wt 158.7 kg
[~2021-09-10 18:54] MED LIST changes: +BENZ-13 PO; +CYCL10TA25 PO; -CYCL10TA9 PO; -FLUO20CA46 PO; +FLUO20CA48 PO; +TIZA-186 PO; -TIZA4TAB4 PO
[2021-09-10] MEDS ORDERED: ONDANSETRON 4 MG/2 ML (SDV) Z0FRAN IVP STA (20:13)
[2021-09-10] MEDS ORDERED: NS IV 1000 ML 1,000 ML IV SCH (20:15)
--- NOTE | 2021-09-10 20:21 | ED General ---
General Chief Complaint: Cough/Cold/Flu Symptoms Stated Complaint: NAUSEA/SHAKY/COUGH Nursing Triage Note: PT AMB TO RM 10 WITH COMPLAINT OF COUGH, LETHARGY FOR 4-5 DAYS. History of Present Illness Date Seen by Provider: Sep 10, 2021 Time Seen by Provider: 19:30 Initial Comments 41-year-old male presents for a 4 to 5-day history of cough, conges tion and weakness. Patient is diabetic he has been giving his insulin but he has not been checking his blood sugars. He reports drinking two 32 ounce glasses of water today. He attempted to see his PCP at [facility] but no one has called him back. He has not vomited but feels nauseated. He is not vaccinated for COVID or flu, and has no plans to get either because he believes he will if he gets vaccinated. Timing/Duration: 4-5 Days Severity: Mild Associated Systoms: No Chest Pain; Cough; No Fever/Chills; Malaise, Nausea/Vomiting; No Shortness of Air; Weakness Allergies and Home Medications Allergies Coded Allergies: sertraline (Verified Allergy, Severe, RASH, SWELLING, 04/09/20) "FELT LOOPY" bupropion (Verified Allergy, Unknown, "CAUSED ME TO BANG MY HEAD ON THE WALL", 04/09/20) buspirone (Verified Allergy, Unknown, THROAT SWELLED, 04/09/20) cephalexin (Verified Allergy, Unknown, HIVES, 04/09/20) codeine (Verified Allergy, Unknown, 04/09/20) sulfamethoxazole (Verified Adverse Reaction, Unknown, Itching, 04/09/20) trimethoprim (Verified Adverse Reaction, Unknown, Itching, 04/09/20) Patient Home Medication List Home Medication List Reviewed: Yes Acetaminophen (Tylenol 8 Hour) 650 Mg Tablet.er, 1,300 MG PO Q6H PRN for PAIN- MILD (1-4), (Reported) Entered as Reported by: ZACHARY HATCH on 12/04/20 1538 Aspirin (Aspirin EC) 81 Mg Tablet.dr, 81 MG PO DAILY Prescribed by: ORI LIAO on 12/05/20 1251 Benzonatate (Tessalon Perle) 100 Mg Capsule, 100 MG PO BID PRN for cough Prescribed by: MILO KHAN on 07/01/21 1613 Doxycycline Hyclate (Doxycycline Hyclate) 100 Mg Tablet, 100 MG PO BID Prescribed by: MILO KHAN on 07/01/21 1612 Insulin Degludec (Tresiba Flextouch U-200) 200 Unit/1 Ml Insuln.pen, 160 UNIT SQ HS, (Reported) Entered as Reported by: CODY RIDLEY on 06/28/18 1444 Lisinopril (Lisinopril) 20 Mg Tablet, 20 MG PO DAILY, (Reported) Entered as Reported by: LAURYN MOLINA on 05/16/17 1750 Mag Hydrox/Aluminum Hyd/Simeth (Mylanta Maximum Strength Liq) 355 Ml Oral.susp, 10-20 ML PO Q6H PRN for HEARTBURN, (Reported) Entered as Reported by: ZACHARY HATCH on 12/04/20 1538 Magnesium Oxide (Magnesium) 400 Mg Tablet, 400 MG PO DAILY, (Reported) Entered as Reported by: ZACHARY HATCH on 12/04/20 1538 Metoclopramide HCl (Reglan) 5 Mg Tablet, 5 MG PO BID Prescribed by: ALDEN CARBAJAL on 12/12/20 1306 Pantoprazole Sodium (Pantoprazole Sodium) 40 Mg Tablet.dr, 40 MG PO DAILY, (Reported) Entered as Reported by: TRISTON BETH on 04/09/20 1431 Pioglitazone HCl (Pioglitazone HCl) 45 Mg Tablet, 45 MG PO DAILY, (Reported) Entered as Reported by: ZACHARY HATCH on 12/04/20 153 Pregabalin (Pregabalin) 150 Mg Capsule, 150 MG PO BID, (Reported) Entered as Reported by: ZACHARY HATCH on 12/04/20 153 Tizanidine HCl (Tizanidine HCl) 4 Mg Tablet, 1 EA PO Q6H PRN for MUSCLE SPASMS, (Reported) Entered as Reported by: ZACHARY HATCH on 12/04/20 153 Review of Systems Review of Systems Constitutional: see HPI, malaise, weakness EENTM: see HPI, no symptoms reported Respiratory: no symptoms reported, see HPI; No dyspnea on exertion, No short of breath Cardiovascular: no symptoms reported, see HPI Gastrointestinal: see HPI; No diarrhea; loss of appetite, nausea; No vomiting Genitourinary: no symptoms reported, see HPI Musculoskeletal: no symptoms reported, see HPI Skin: no symptoms reported, see HPI All Other Systems Reviewed Negative Unless Noted: Yes Past Upkzwzn-Sqjrfn-Swgkqw Hx Patient Social History Tobacco Use?: No Use of E-Cig and/or Vaping dev: No Substance use?: No Alcohol Use?: No Pt feels they are or have been: No Immunizations Up To Date Tetanus Booster (TDap): More than 5yrs PED Vaccines UTD: No Influenza Vaccine Up-to-Date: No; Not Current Seasonal Allergies Seasonal Allergies: Yes Past Medical History Surgeries: Yes (HYPOGONADISM SURGERY ; ENDOSCOPIES) Gallbladder, Testicular Respiratory: Yes Asthma Currently Using CPAP: No Currently Using BIPAP: No Cardiac: Yes High Cholesterol, Hypertension, Palpitations Neurological: Yes Neuropathy Reproductive Disorders: Yes (HYPOGONADISM sx as an ) Sexually Transmitted Disease: No HIV/AIDS: No Genitourinary: No Gastrointestinal: Yes (ENDOSCOPIES) Gastroesophageal Reflux, Diverticulosis, Esophagitis Musculoskeletal: Yes Arthritis Endocrine: Yes (MORBID OBESITY; DM TYPE 2 (INSULIN AND PO)) Diabetes, Insulin dep HEENT: Yes (GLASSES) Loss of Vision: Denies Hearing Impairment: Denies Cancer: No Psychosocial: Yes ADD/ADHD, Anxiety, Depression Integumentary: No Blood Disorders: No Adverse Reaction/Blood Tranf: No (N/A) Family Medical History Reviewed Nursing Family Hx Arthritis 19 MOTHER Congenital heart disease Diabetes mellitus 19 FATHER 19 MOTHER FH: brain aneurysm 19 FATHER (cause of - 09/13/2015) Glaucoma 19 FATHER Hypertension 19 FATHER 19 MOTHER Psychosocial problem 19 MOTHER (depression) No Pertinent Family Hx Physical Exam Vital Signs Vital Signs - First Documented 09/10/21 19:15 Temp 37.1 Pulse 108 Resp 20 B/P (MAP) 176/99 (124) Pulse Ox 93 O2 Delivery Room Air Capillary Refill : Less Than 3 Seconds Height, Weight, BMI Height: 5'11.00" Weight: 324lbs. 0.0oz. 146.071778lk; 50.00 BMI Method:Stated General Appearance: No Apparent Distress, WD/WN, Obese HEENT: PERRL/EOMI, TMs Normal, Normal ENT Inspection, Pharynx Normal Neck: Full Range of Motion, Normal Inspection, Non Tender, Supple Respiratory: Chest Non Tender, Lungs Clear, Normal Breath Sounds Cardiovascular: Regular Rate, Rhythm, No Murmur, Normal Peripheral Pulses, Tachycardia (80-105, based on previous admissions, normal for this patient. ) Gastrointestinal: Normal Bowel Sounds, Non Tender, Soft, Distended Extremity: Normal Capillary Refill, Normal Inspection, Normal Range of Motion, Non Tender Neurologic/Psychiatric: Alert, Oriented x3, No Motor/Sensory Deficits, Normal Mood/Affect Progress/Results/Core Measures Suspected Sepsis SIRS Temperature: Pulse: 108 Respiratory Rate: 20 Laboratory Tests 09/10/21 20:30: White Blood Count 7.8 Blood Pressure 176 /99 Mean: 124 Laboratory Tests 09/10/21 20:30: Creatinine 1.01, Platelet Count 197, Total Bilirubin 0.4 Results/Orders Lab Results Laboratory Tests Test 09/10/21 19:20 09/10/21 20:30 09/10/21 21:40 09/10/21 22:00 Range/Units Influenza Type A (RT-PCR) Not Detected Not Detecte Influenza Type B (RT-PCR) Not Detected Not Detecte SARS-CoV-2 RNA (RT-PCR) Not Detected Not Detecte White Blood Count 7.8 4.3-11.0 10^3/uL Red Blood Count 5.11 4.30-5.52 10^6/uL Hemoglobin 15.1 13.3-17.7 g/dL Hematocrit 44 40-54 % Mean Corpuscular Volume 85 80-99 fL Mean Corpuscular Hemoglobin 30 25-34 pg Mean Corpuscular Hemoglobin Concent 35 32-36 g/dL Red Cell Distribution Width 12.6 10.0-14.5 % Platelet Count 197 130-400 10^3/uL Mean Platelet Volume 11.5 9.0-12.2 fL Immature Granulocyte % (Auto) 1 % Neutrophils (%) (Auto) 60 42-75 % Lymphocytes (%) (Auto) 30 12-44 % Monocytes (%) (Auto) 7 0-12 % Eosinophils (%) (Auto) 1 0-10 % Basophils (%) (Auto) 1 0-10 % Neutrophils # (Auto) 4.6 1.8-7.8 10^3/uL Lymphocytes # (Auto) 2.3 1.0-4.0 10^3/uL Monocytes # (Auto) 0.6 0.0-1.0 10^3/uL Eosinophils # (Auto) 0.1 0.0-0.3 10^3/uL Basophils # (Auto) 0.0 0.0-0.1 10^3/uL Immature Granulocyte # (Auto) 0.1 0.0-0.1 10^3/uL Sodium Level 136 135-145 MMOL/L Potassium Level 4.0 3.6-5.0 MMOL/L Chloride Level 104 98-107 MMOL/L Carbon Dioxide Level 18 L 21-32 MMOL/L Anion Gap 14 5-14 MMOL/L Blood Urea Nitrogen 15 7-18 MG/DL Creatinine 1.01 0.60-1.30 MG/DL Estimat Glomerular Filtration Rate 81 BUN/Creatinine Ratio 15 Glucose Level 353 H 70-105 MG/DL Calcium Level 9.7 8.5-10.1 MG/DL Corrected Calcium 9.8 8.5-10.1 MG/DL Total Bilirubin 0.4 0.1-1.0 MG/DL Aspartate Amino Transf (AST/SGOT) 36 H 5-34 U/L Alanine Aminotransferase (ALT/SGPT) 61 H 0-55 U/L Alkaline Phosphatase 74 40-136 U/L C-Reactive Protein High Sensitivity 0.94 H 0.00-0.50 MG/DL Total Protein 7.1 6.4-8.2 GM/DL Albumin 3.9 3.2-4.5 GM/DL Urine Color YELLOW Urine Clarity CLEAR Urine pH 6.0 5-9 Urine Specific [place] 1.015 L 1.016-1.022 Urine Protein NEGATIVE NEGATIVE Urine Glucose (UA) 3+ H NEGATIVE Urine Ketones 1+ H NEGATIVE Urine Nitrite NEGATIVE NEGATIVE Urine Bilirubin NEGATIVE NEGATIVE Urine Urobilinogen 0.2 < = 1.0 MG/DL Urine Leukocyte Esterase NEGATIVE NEGATIVE Urine RBC (Auto) NEGATIVE NEGATIVE Urine RBC NONE /HPF Urine WBC RARE /HPF Urine Crystals PRESENT H /LPF Urine Amorphous Sediment RARE LINDA URATES H /LPF Urine Bacteria TRACE /HPF Urine Casts NONE /LPF Urine Mucus NEGATIVE /LPF Urine Culture Indicated NO Glucometer 244 H 70-110 MG/DL My Orders Orders - [employer] DIRECTOR OF CODING Influenza A And B By Pcr (09/10/21 19:24) Covid 19 Inhouse Test (09/10/21 19:24) Cbc With Automated Diff (09/10/21 20:13) Comprehensive Metabolic Panel (09/10/21 20:13) Hs C Reactive Protein (09/10/21 20:13) Ua Culture If Indicated (09/10/21 20:13) Ed Iv/Invasive Line Start (09/10/21 20:13) Ns Iv 1000 Ml (Sodium Chloride 0.9%) (09/10/21 20:15) Ondansetron Injection (Zofran Injectio (09/10/21 20:13) Insulin (Regular) Human (Novolin R (Per (09/10/21 21:10) Accucheck Stat ONCE (09/10/21 21:57) Vital Signs/I&O 09/10/21 19:15 Temp 37.1 Pulse 108 Resp 20 B/P (MAP) 176/99 (124) Pulse Ox 93 O2 Delivery Room Air Capillary Refill : Less Than 3 Seconds Blood Pressure Mean: 124 Progress Note : Time: 19:30 Progress Note patient seen and evaluated, will obtain labs and 1 L NS per IV. Zofran 8 mg IV. 2014 COVID and Flu neg. Awaiting UA from patient. 2054 Glucose 353, Reg Insulin 5 u SC. 2129 UA obtained. IV infused. Patient reports to be feeling better. Accucheck 244. 2200 Patient will apply his glucometer CGM patch and adjust his insulin. Discharge instructions and return precautions reviewed. Departure Impression Primary Impression: Hyperglycemia Additional Impressions: Fatigue Qualified Codes: R53.83 - Other fatigue Diabetes type 1, uncontrolled Qualified Codes: E10.65 - Type 1 diabetes mellitus with hyperglycemia Obesity Qualified Codes: E66.01 - Morbid (severe) obesity due to excess calories; Z68.43 - Body mass index [BMI] 50.0-59.9, adult Viral URI Disposition: HOME, SELF-CARE Condition: Stable Departure-Patient Inst. Decision time for Depature: 21:55 Referrals: [facility]/JORD[facility] (PCP) Primary Care Physician NERISSA MARTINEZ (Family) Primary Care Physician Patient Instructions: Viral Upper Respiratory Infection, Adult (DC), High Blood Sugar, Adult (DC) Add. Discharge Instructions: Increase water intake, 16 oz every 2 hours while awake. Check blood sugar every 6-8 hours. Adjust insulin, per blood sugars. Follow up with Dr. Levin, if not improving or worsens. Return to Emergency Dept for new/urgent healthcare needs. All discharge instructions reviewed with patient and/or family. Voiced understanding. Copy Copies To 1: ZACHARY LEVIN AMY ARNP Sep 10, 2021 20:21
[2021-09-10 20:58] LABS: ALBUMIN 3.9 GM/DL (3.2-4.5); BASOPHILS % (AUTO) 1 % (0-10); BILIRUBIN,TOTAL 0.4 MG/DL (0.1-1.0); CALCIUM 9.7 MG/DL (8.5-10.1); CREATININE SERUM 1.01 MG/DL (0.60-1.30); EOSINOPHILS # (AUTO) 0.1 10^3/uL (0.0-0.3); EOSINOPHILS % (AUTO) 1 % (0-10); HEMATOCRIT 44 % (40-54); HEMOGLOBIN 15.1 g/dL (13.3-17.7); LYMPHOCYTES # (AUTO) 2.3 10^3/uL (1.0-4.0); LYMPHOCYTES % (AUTO) 30 % (12-44); MEAN CORPUSCULAR HEMOGLOBIN 30 pg (25-34); MEAN CORPUSCULAR HGB CONC 35 g/dL (32-36); MEAN CORPUSCULAR VOLUME 85 fL (80-99); MEAN PLATELET VOLUME 11.5 fL (9.0-12.2); MONOCYTES # (AUTO) 0.6 10^3/uL (0.0-1.0); MONOCYTES % (AUTO) 7 % (0-12); NEUTROPHILS # (AUTO) 4.6 10^3/uL (1.8-7.8); NEUTROPHILS % (AUTO) 60 % (42-75); PLATELET COUNT 197 10^3/uL (130-400); TOTAL PROTEIN 7.1 GM/DL (6.4-8.2); WHITE BLOOD COUNT 7.8 10^3/uL (4.3-11.0)
[2021-09-10] MEDS ORDERED: inSUlin (REGULAR) HUMAN 1 UNIT/0.01 ML (CHARGE PER UNIT) SC STA (21:10)
[2021-09-10 21:56] LABS: BILIRUBIN,URINE NEGATIVE (NEGATIVE); CLARITY,URINE CLEAR; COLOR,URINE YELLOW; GLUCOSE, URINE (UA) 3+ (NEGATIVE); KETONES,URINE 1+ (NEGATIVE); LEUKOCYTE ESTERASE ,URINE NEGATIVE (NEGATIVE); NITRITE,URINE NEGATIVE (NEGATIVE); PROTEIN,URINE NEGATIVE (NEGATIVE)
[2021-09-10 22:16] LABS: AMORPHOUS SEDIMENT,UR RARE AMOR URATES /LPF; BACTERIA,URINE TRACE /HPF; WBC,URINE RARE /HPF
[2021-09-10 22:24] VITALS: BP 165/87
== END 2021-09-10 22:24 | disposition home or self-care (01) ==
LOC: EDUNIT# 18:54 → ER 18:57
DX: R53.83 Other fatigue (principal); E10.65 Type 1 diabetes mellitus with hyperglycemia; E66.01 Morbid (severe) obesity due to excess calories; J06.9 Acute upper respiratory infection, unspecified; J45.909 Unspecified asthma, uncomplicated; I10 Essential (primary) hypertension; K21.9 Gastro-esophageal reflux disease without esophagitis; Z20.822 Contact with and (suspected) exposure to COVID-19; Z68.43 Body mass index [BMI] 50.0-59.9, adult; Z79.82 Long term (current) use of aspirin; Z79.899 Other long term (current) drug therapy
CPT/HCPCS: 36415; 80053; 81000; 82947; 85025; 86141; 87636

== ENCOUNTER 2021-09-28 18:39 | Emergency (ER) | payer MEDICARE, MEDICAID ==
[~2021-09-28] VITALS: Ht 177.8 cm; Wt 163.3 kg
[2021-09-28 19:13] LABS: BASOPHILS % (AUTO) 1 % (0-10); EOSINOPHILS # (AUTO) 0.1 10^3/uL (0.0-0.3); EOSINOPHILS % (AUTO) 1 % (0-10); HEMATOCRIT 47 % (40-54); HEMOGLOBIN 16.4 g/dL (13.3-17.7); LYMPHOCYTES # (AUTO) 1.7 10^3/uL (1.0-4.0); LYMPHOCYTES % (AUTO) 27 % (12-44); MEAN CORPUSCULAR HEMOGLOBIN 30 pg (25-34); MEAN CORPUSCULAR HGB CONC 35 g/dL (32-36); MEAN CORPUSCULAR VOLUME 85 fL (80-99); MEAN PLATELET VOLUME 11.4 fL (9.0-12.2); MONOCYTES # (AUTO) 0.6 10^3/uL (0.0-1.0); MONOCYTES % (AUTO) 10 % (0-12); NEUTROPHILS # (AUTO) 3.6 10^3/uL (1.8-7.8); NEUTROPHILS % (AUTO) 60 % (42-75); PLATELET COUNT 196 10^3/uL (130-400); WHITE BLOOD COUNT 6.1 10^3/uL (4.3-11.0)
[2021-09-28] MEDS ORDERED: LACTATED RINGERS 1,000 ML IV ONE (19:15)
--- NOTE | 2021-09-28 19:15 | ED General ---
General Chief Complaint: Cough/Cold/Flu Symptoms Stated Complaint: COUGHING/CHILLS/SOB Nursing Triage Note: PT AMB TO RM 6 WITH COMPLAINT OF COUGH X1 WEEK. Source of Information: Patient Exam Limitations: No Limitations History of Present Illness Date Seen by Provider: Sep 28, 2021 Allergies and Home Medications Allergies Coded Allergies: sertraline (Verified Allergy, Severe, RASH, SWELLING, 04/09/20) "FELT LOOPY" bupropion (Verified Allergy, Unknown, "CAUSED ME TO BANG MY HEAD ON THE WALL", 04/09/20) buspirone (Verified Allergy, Unknown, THROAT SWELLED, 04/09/20) cephalexin (Verified Allergy, Unknown, HIVES, 04/09/20) codeine (Verified Allergy, Unknown, 04/09/20) sulfamethoxazole (Verified Adverse Reaction, Unknown, Itching, 04/09/20) trimethoprim (Verified Adverse Reaction, Unknown, Itching, 04/09/20) Patient Home Medication List Acetaminophen (Tylenol 8 Hour) 650 Mg Tablet.er, 1,300 MG PO Q6H PRN for PAIN- MILD (1-4), (Reported) Entered as Reported by: ZACHARY HATCH on 12/04/20 1538 Aspirin (Aspirin EC) 81 Mg Tablet.dr, 81 MG PO DAILY Prescribed by: ORI LIAO on 12/05/20 1251 Benzonatate (Tessalon Perle) 100 Mg Capsule, 100 MG PO BID PRN for cough Prescribed by: MILO KHAN on 07/01/21 161 Benzonatate (Tessalon Perles) 100 Mg Capsule, 200 MG PO TID PRN for COUGH Prescribed by: MAMIE MIDDLETON on 09/28/212110 Doxycycline Hyclate (Doxycycline Hyclate) 100 Mg Tablet, 100 MG PO BID Prescribed by: MILO KHAN on 07/01/21 161 Fluconazole (Diflucan) 150 Mg Tablet, 150 MG PO UD Prescribed by: MAMIE MIDDLETON on 09/28/212110 Insulin Degludec (Tresiba Flextouch U-200) 200 Unit/1 Ml Insuln.pen, 160 UNIT SQ HS, (Reported) Entered as Reported by: CODY RIDLEY on 06/28/18 1444 Lisinopril (Lisinopril) 20 Mg Tablet, 20 MG PO DAILY, (Reported) Entered as Reported by: LAURYN MOLINA on 05/16/17 1750 Mag Hydrox/Aluminum Hyd/Simeth (Mylanta Maximum Strength Liq) 355 Ml Oral.susp, 10-20 ML PO Q6H PRN for HEARTBURN, (Reported) Entered as Reported by: ZACHARY HATCH on 12/04/20 1538 Magnesium Oxide (Magnesium) 400 Mg Tablet, 400 MG PO DAILY, (Reported) Entered as Reported by: ZACHARY HATCH on 12/04/20 1538 Metoclopramide HCl (Reglan) 5 Mg Tablet, 5 MG PO BID Prescribed by: ALDEN CARBAJAL on 12/12/20 1306 Pantoprazole Sodium (Pantoprazole Sodium) 40 Mg Tablet.dr, 40 MG PO DAILY, (Reported) Entered as Reported by: TRISTON BETH on 04/09/20 1431 Pioglitazone HCl (Pioglitazone HCl) 45 Mg Tablet, 45 MG PO DAILY, (Reported) Entered as Reported by: ZACHARY HATCH on 12/04/20 1538 Pregabalin (Pregabalin) 150 Mg Capsule, 150 MG PO BID, (Reported) Entered as Reported by: ZACHARY HATCH on 12/04/20 1538 Tizanidine HCl (Tizanidine HCl) 4 Mg Tablet, 1 EA PO Q6H PRN for MUSCLE SPASMS, (Reported) Entered as Reported by: ZACHARY HATCH on 12/04/20 1538 Past Obugsqb-Wpafmf-Rgxaze Hx Patient Social History Tobacco Use?: No Use of E-Cig and/or Vaping dev: No Substance use?: No Alcohol Use?: No Pt feels they are or have been: No Immunizations Up To Date Tetanus Booster (TDap): More than 5yrs PED Vaccines UTD: No Influenza Vaccine Up-to-Date: No; Not Current First/Initial COVID19 Vaccinat: NO Seasonal Allergies Seasonal Allergies: Yes Past Medical History Surgeries: Yes (HYPOGONADISM SURGERY INFANT; ENDOSCOPIES) Gallbladder, Testicular Respiratory: Yes Asthma Currently Using CPAP: No Currently Using BIPAP: No Cardiac: Yes High Cholesterol, Hypertension, Palpitations Neurological: Yes Neuropathy Reproductive Disorders: Yes (HYPOGONADISM sx as an infant) Sexually Transmitted Disease: No HIV/AIDS: No Genitourinary: No Gastrointestinal: Yes (ENDOSCOPIES) Gastroesophageal Reflux, Diverticulosis, Esophagitis Musculoskeletal: Yes Arthritis Endocrine: Yes (MORBID OBESITY; DM TYPE 2 (INSULIN AND PO)) Diabetes, Insulin dep HEENT: Yes (GLASSES) Loss of Vision: Denies Hearing Impairment: Denies Cancer: No Psychosocial: Yes ADD/ADHD, Anxiety, Depression Integumentary: No Blood Disorders: No Adverse Reaction/Blood Tranf: No (N/A) Family Medical History Arthritis 19 MOTHER Congenital heart disease Diabetes mellitus 19 FATHER 19 MOTHER FH: brain aneurysm 19 FATHER (cause of - 09/13/2015) Glaucoma 19 FATHER Hypertension 19 FATHER 19 MOTHER Psychosocial problem 19 MOTHER (depression) No Pertinent Family Hx Physical Exam Vital Signs Vital Signs - First Documented 09/28/21 18:50 Pulse 125 Resp 16 B/P (MAP) 151/91 (111) Pulse Ox 98 O2 Delivery Room Air Capillary Refill : Less Than 3 Seconds Height, Weight, BMI Height: 5'11.00" Weight: 324lbs. 0.0oz. 146.732140fh; 51.00 BMI Method:Stated HEENT: PERRL/EOMI, Other (Mild TM retraction with mild hyperemia. Pharynx is erythematous without lesions or exudate. Oropharynx somewhat dry.) Respiratory: No Accessory Muscle Use, No Respiratory Distress, Wheezing (With forced expiration) Progress/Results/Core Measures Suspected Sepsis SIRS Temperature: Pulse: 125 Respiratory Rate: 16 Laboratory Tests 09/28/21 19:00: White Blood Count 6.1 Blood Pressure 151 /91 Mean: 111 Laboratory Tests 09/28/21 19:00: Creatinine 1.10, INR Comment 1.0, Platelet Count 196, Total Bilirubin 0.6 Results/Orders Lab Results Laboratory Tests Test 09/28/21 18:57 09/28/21 19:00 Range/Units Influenza Type A (RT-PCR) Not Detected Not Detecte Influenza Type B (RT-PCR) Not Detected Not Detecte SARS-CoV-2 RNA (RT-PCR) Not Detected Not Detecte White Blood Count 6.1 4.3-11.0 10^3/uL Red Blood Count 5.54 H 4.30-5.52 10^6/uL Hemoglobin 16.4 13.3-17.7 g/dL Hematocrit 47 40-54 % Mean Corpuscular Volume 85 80-99 fL Mean Corpuscular Hemoglobin 30 25-34 pg Mean Corpuscular Hemoglobin Concent 35 32-36 g/dL Red Cell Distribution Width 12.5 10.0-14.5 % Platelet Count 196 130-400 10^3/uL Mean Platelet Volume 11.4 9.0-12.2 fL Immature Granulocyte % (Auto) 2 % Neutrophils (%) (Auto) 60 42-75 % Lymphocytes (%) (Auto) 27 12-44 % Monocytes (%) (Auto) 10 0-12 % Eosinophils (%) (Auto) 1 0-10 % Basophils (%) (Auto) 1 0-10 % Neutrophils # (Auto) 3.6 1.8-7.8 10^3/uL Lymphocytes # (Auto) 1.7 1.0-4.0 10^3/uL Monocytes # (Auto) 0.6 0.0-1.0 10^3/uL Eosinophils # (Auto) 0.1 0.0-0.3 10^3/uL Basophils # (Auto) 0.0 0.0-0.1 10^3/uL Immature Granulocyte # (Auto) 0.1 0.0-0.1 10^3/uL Prothrombin Time 13.6 12.2-14.7 SEC INR Comment 1.0 0.8-1.4 Activated Partial Thromboplast Time 33 24-35 SEC D-Dimer 0.39 0.00-0.49 UG/ML Sodium Level 134 L 135-145 MMOL/L Potassium Level 4.3 3.6-5.0 MMOL/L Chloride Level 103 98-107 MMOL/L Carbon Dioxide Level 11 L 21-32 MMOL/L Anion Gap 20 H 5-14 MMOL/L Blood Urea Nitrogen 13 7-18 MG/DL Creatinine 1.10 0.60-1.30 MG/DL Estimat Glomerular Filtration Rate 73 BUN/Creatinine Ratio 12 Glucose Level 370 H 70-105 MG/DL Calcium Level 9.6 8.5-10.1 MG/DL Corrected Calcium 9.4 8.5-10.1 MG/DL Magnesium Level 2.0 1.6-2.4 MG/DL Total Bilirubin 0.6 0.1-1.0 MG/DL Aspartate Amino Transf (AST/SGOT) 72 H 5-34 U/L Alanine Aminotransferase (ALT/SGPT) 81 H 0-55 U/L Alkaline Phosphatase 85 40-136 U/L Myoglobin 115.8 H 10.0-92.0 NG/ML Troponin I < 0.028 <0.028 NG/ML Total Protein 7.5 6.4-8.2 GM/DL Albumin 4.2 3.2-4.5 GM/DL My Orders Orders - MAMIE DUBOIS MD Covid 19 Inhouse Test (09/28/21 18:50) Influenza A And B By Pcr (09/28/21 18:50) Cbc With Automated Diff (09/28/21 19:01) Magnesium (09/28/21 19:01) Ekg Tracing (09/28/21 19:01) Comprehensive Metabolic Panel (09/28/21 19:) Myoglobin Serum (09/28/21 19:01) Protime With Inr (09/28/21 19:01) Partial Thromboplastin Time (09/28/21 19:01) O2 (09/28/21 19:01) Monitor-Rhythm Ecg Trace Only (09/28/21 19:01) Lipid Panel (09/29/21 06:00) Ed Iv/Invasive Line Start (09/28/21 19:01) Troponin I Felix (09/28/21 19:01) Lactated Ringers (Lr 1000 Ml Iv Solution (09/28/21 19:15) Chest Pa/Lat (2 View) (09/28/21 20:03) Fibrin Degradation Products (09/28/21 20:22) Albuterol Inhaler (Albuterol) (09/28/21 22:00) Albuterol Inhaler (Albuterol) (09/28/21 20:32) Benzonatate Capsule (Tessalon Perles) (09/28/21 21:12) Medications Given in ED Current Medications Medications Dose Ordered Sig/Nikia Route Start Time Stop Time Status Last Admin Dose Admin Albuterol Sulfate 4 PUFFS RTQ4HR ONCE IH 09/28/21 22:00 09/28/21 22:01 09/28/21 20:38 8.5 GM Lactated Ringer's 1,000 ml @ 0 mls/hr Q0M ONCE IV 09/28/21 19:15 09/28/21 19:16 DC 09/28/21 19:13 1,000 MLS/HR Vital Signs/I&O 09/28/21 18:50 Pulse 125 Resp 16 B/P (MAP) 151/91 (111) Pulse Ox 98 O2 Delivery Room Air Capillary Refill : Less Than 3 Seconds Blood Pressure Mean: 111 Progress Note : Time: 20:54 Progress Note Covid and influenza screening were negative. He received a liter of IV fluid. He admitted he has not been monitoring his diet to reduce carbohydrate and sugar intake. We discussed the importance of this in reducing his blood sugars. His cardiopulmonary work-up was unremarkable. He was treated with an albuterol inhaler and Tessalon Perles to help with his respiratory symptoms. He is presently on antibiotics and has been for quite some time for dental reasons and has pharyngeal erythema. I suspect he may have some esophageal and oral candidiasis contributing to his symptoms. He was given a dose of Diflucan here and prescribed a dose to repeat in a couple of days. See discharge instructions. ECG Initial ECG Impression Date: Sep 28, 2021 Initial ECG Impression Time: 19:10 Initial ECG Rate: 113 Initial ECG Rhythm: S.Tach Comment Sinus tachycardia with no ST elevation or depression. No abnormal intervals or axis deviation. Diagnostic Imaging Diagonstic Imaging: Xray Plain Films/CT/US/NM/MRI: chest Comments Chest x-ray viewed by me and report reviewed. See report below: NAME: JOHN CHAVEZ [facility] REC#: [id number] PT STATUS: REG ER : 1980 PHYSICIAN: MAMIE DUBOIS MD ADMIT DATE: 09/28/21/ER Draft Date of Exam:09/28/21 CHEST PA/LAT (2 VIEW) INDICATION: Cough. COMPARISON: 02/05/2018. EXAMINATION: Frontal and lateral views of the chest. FINDINGS: Clear lungs, bilaterally. The heart is normal. There is no pneumothorax but osseous structures are normal. IMPRESSION: Negative chest. Dictated on workstation # [id number] Dict: 09/28/[id number] Trans: 09/28/212048 PJE [id number] Interpreted by: TALITA LARA Departure Impression Primary Impression: Acute bronchitis Qualified Codes: J20.9 - Acute bronchitis, unspecified Additional Impressions: Pleuritic chest pain Hyperglycemia Atypical chest pain Disposition: HOME, SELF-CARE Condition: Improved Departure-Patient Inst. Decision time for Depature: 20:55 Referrals: [facility]/JORD[facility] (PCP) Primary Care Physician NERISSA MARTINEZ (Family) Primary Care Physician Patient Instructions: Acute Bronchitis, High Blood Sugar, Adult (DC) Add. Discharge Instructions: Adjust your diet to a low sugar, low carbohydrate diet and continue to monitor your blood sugars. If you are consistently still having blood sugars in the 200s to 300s, consider increasing your insulin dosing by about 10%. Please contact your diabetes provider tomorrow to discuss your high blood sugars. You may use Tylenol (acetaminophen) up to 1000 mg every 6 hours as needed for fever or discomfort. Continue taking your antacid medications to help with acid reflux. Avoid the following: Eating large meals, eating close to bedtime, caffeine, carbonation, chocolate, citrus fruits and juices, tomato products, mints, alcohol, tobacco products, fatty or greasy foods, NSAID medications such as ibuprofen or naproxen, or anything else you know that irritates your stomach. Consider raising the head of your bed up to help with acid reflux as well. Drink plenty of water and avoid drinking beverages with sugars. Use your inhaler 1 to 4 puffs every 4 hours as needed for shortness of air and wheezing. You may use Tessalon Perles as prescribed for cough. Your chest discomfort and throat discomfort may be related to thrush then she has been on long-term antibiotics. Take your next dose of Diflucan on October 01. Call with questions or concerns. Return to the ER if you have worsening symptoms. Follow-up with your primary care provider soon as possible. All discharge instructions reviewed with patient and/or family. Voiced understanding. Scripts Benzonatate (TESSALON PERLES) 100 Mg Capsule 200 MG PO TID PRN for COUGH, #20 CAP Prov: MAMIE DUBOIS MD 09/28/21 Fluconazole (Diflucan) 150 Mg Tablet 150 MG PO UD, #1 TAB Take October 01 Prov: MAMIE DUBOIS MD 09/28/21 MAMIE DUBOIS MD Sep 28, 2021 19:15
[2021-09-28 19:28] LABS: PROTHROMBIN TIME PATIENT 13.6 SEC (12.2-14.7)
[2021-09-28 19:36] LABS: ALBUMIN 4.2 GM/DL (3.2-4.5); BILIRUBIN,TOTAL 0.6 MG/DL (0.1-1.0); CALCIUM 9.6 MG/DL (8.5-10.1); CREATININE SERUM 1.1 MG/DL (0.60-1.30); POTASSIUM 4.3 MMOL/L (3.6-5.0); TOTAL PROTEIN 7.5 GM/DL (6.4-8.2)
[2021-09-28] MEDS ORDERED: RT-ALBUTEROL HFA 8.5 GM INHALER IH ONE ×2 (20:32→22:00)
--- NOTE | 2021-09-28 20:49 | Diagnostic Imaging Report ---
INDICATION: Cough. COMPARISON: 02/05/2018. EXAMINATION: Frontal and lateral views of the chest. FINDINGS: Clear lungs, bilaterally. The heart is normal. There is no pneumothorax but osseous structures are normal. IMPRESSION: Negative chest. Dictated by: Dictated on workstation # [id number]
[2021-09-28] MEDS ORDERED: FLUC150T PO (21:11)
[2021-09-28] MEDS ORDERED: BENZ100C18 PO (21:11)
[2021-09-28] MEDS ORDERED: BENZONATATE 100 MG (TESSALON) CAPSULE PO STA (21:12)
[2021-09-28] MEDS ORDERED: FLUCONAZOLE 150 MG TABLET (ED ONLY) PO STA (21:28)
[2021-09-28 21:34] VITALS: BP 143/84
[2021-09-29] MEDS ORDERED: AMOX500C2 PO (14:05)
[2021-09-29] MEDS ORDERED: NFCHLORHGL PO (14:12)
[2021-09-29] MEDS ORDERED: INSU500I SC (14:12)
[2021-09-29] MEDS ORDERED: ACET1TAB43 PO (14:12)
[2021-09-29] MEDS ORDERED: IBUP-1773 PO (14:12)
[2021-09-29] MEDS ORDERED: FLUT16SP22 NSEACH (14:12)
[2021-09-29] MEDS ORDERED: HYDR-700 PO (14:15)
[2021-09-29] MEDS ORDERED: ASPI-1238 PO (14:15)
[2021-09-29] MEDS ORDERED: HYDR25TA4 PO (14:15)
[2021-09-29] MEDS ORDERED: CETI10TA17 PO (14:16)
[2021-09-29] MEDS ORDERED: ASCO500P18 PO (14:17)
[2021-10-01] MEDS ORDERED: GUAI600T43 PO (12:15)
== END 2021-09-28 21:34 | disposition home or self-care (01) ==
LOC: EDUNIT# 18:39 → ER 18:40
DX: J20.9 Acute bronchitis, unspecified (principal); R07.81 Pleurodynia; E11.65 Type 2 diabetes mellitus with hyperglycemia; E66.01 Morbid (severe) obesity due to excess calories; K21.9 Gastro-esophageal reflux disease without esophagitis; I10 Essential (primary) hypertension; Z68.43 Body mass index [BMI] 50.0-59.9, adult; Z20.822 Contact with and (suspected) exposure to COVID-19; Z79.4 Long term (current) use of insulin; Z79.82 Long term (current) use of aspirin; Z79.899 Other long term (current) drug therapy
CPT/HCPCS: 36415; 71046; 80053; 83735; 83874; 84484; 85025; 85379; 85610; 85730; 87636; 93041

== ENCOUNTER 2021-09-29 07:10 | Inpatient (IN) | payer MEDICARE, MEDICAID ==
[~2021-09-29] VITALS: Ht 177.8 cm; Wt 157.2 kg
[~2021-09-29 07:10] MED LIST changes: +FLUC150T PO
--- NOTE | 2021-09-29 07:31 | ED Cough/URI ---
General Chief Complaint: Respiratory Problems Stated Complaint: SOA Nursing Triage Note: TO ED PER EMS FROM HOME PATIENT WAS SEEN LAST NIGHT IN ED TESTED NEG FOR COVID WAS GIVEN A INHLER AND RX . IS SUPPOSE TO HAVE SLEEP STUDY. PATIENT IN NO DISTRESS ON ADMIT. Source: patient, EMS Exam Limitations: no limitations History of Present Illness Date Seen by Provider: Sep 29, 2021 Time Seen by Provider: 07:00 Initial Comments Patient to the ER by EMS from home with chief complaint of shortness of breath, anxiety and waking up gasping in the melanite from sleep. He was seen overnight here in the ER and has had 2 negative tests for COVID-19 and influenza. He did not get vaccinated for COVID. He has undiagnosed sleep apnea and his primary care provider at [facility] has referred him on for a sleep study but he has not filled out the paperwork to get it scheduled yet. He does not wear CPAP or BiPAP. He is not having any nausea vomiting or diarrhea. He was given an albuterol inhaler because they thought they heard some wheezing which he used overnight and did not feel it made any improvement. EMS reports he had clear to auscultation lung sounds were 97% on room air nonlabored breathing. Allergies and Home Medications Allergies Coded Allergies: sertraline (Verified Allergy, Severe, RASH, SWELLING, 04/09/20) "FELT LOOPY" bupropion (Verified Allergy, Unknown, "CAUSED ME TO BANG MY HEAD ON THE WALL", 04/09/20) buspirone (Verified Allergy, Unknown, THROAT SWELLED, 04/09/20) cephalexin (Verified Allergy, Unknown, HIVES, 04/09/20) codeine (Verified Allergy, Unknown, 04/09/20) sulfamethoxazole (Verified Adverse Reaction, Unknown, Itching, 04/09/20) trimethoprim (Verified Adverse Reaction, Unknown, Itching, 04/09/20) Patient Home Medication List Home Medication List Reviewed: Yes Acetaminophen (Tylenol 8 Hour) 650 Mg Tablet.er, 1,300 MG PO Q6H PRN for PAIN- MILD (1-4), (Reported) Entered as Reported by: ZACHARY HATCH on 12/04/20 1538 Aspirin (Aspirin EC) 81 Mg Tablet.dr, 81 MG PO DAILY Prescribed by: ORI LIAO on 12/05/20 1251 Benzonatate (Tessalon Perle) 100 Mg Capsule, 100 MG PO BID PRN for cough Prescribed by: MILO KHAN on 07/01/21 161 Benzonatate (Tessalon Perles) 100 Mg Capsule, 200 MG PO TID PRN for COUGH Prescribed by: MAMIE MIDDLETON on 09/28/212110 Doxycycline Hyclate (Doxycycline Hyclate) 100 Mg Tablet, 100 MG PO BID Prescribed by: MILO KHAN on 07/01/21 161 Fluconazole (Diflucan) 150 Mg Tablet, 150 MG PO UD Prescribed by: MAMIE MIDDLETON on 09/28/212110 Insulin Degludec (Tresiba Flextouch U-200) 200 Unit/1 Ml Insuln.pen, 160 UNIT SQ HS, (Reported) Entered as Reported by: CODY RIDLEY on 06/28/18 1444 Lisinopril (Lisinopril) 20 Mg Tablet, 20 MG PO DAILY, (Reported) Entered as Reported by: LAURYN MOLINA on 05/16/17 1750 Mag Hydrox/Aluminum Hyd/Simeth (Mylanta Maximum Strength Liq) 355 Ml Oral.susp, 10-20 ML PO Q6H PRN for HEARTBURN, (Reported) Entered as Reported by: ZACHARY HATCH on 12/04/20 1538 Magnesium Oxide (Magnesium) 400 Mg Tablet, 400 MG PO DAILY, (Reported) Entered as Reported by: ZACHARY HATCH on 12/04/20 1538 Metoclopramide HCl (Reglan) 5 Mg Tablet, 5 MG PO BID Prescribed by: ALDEN CARBAJAL on 12/12/20 1306 Pantoprazole Sodium (Pantoprazole Sodium) 40 Mg Tablet.dr, 40 MG PO DAILY, (Reported) Entered as Reported by: TRISTON BETH on 04/09/20 1431 Pioglitazone HCl (Pioglitazone HCl) 45 Mg Tablet, 45 MG PO DAILY, (Reported) Entered as Reported by: ZACHARY HATCH on 12/04/20 1538 Pregabalin (Pregabalin) 150 Mg Capsule, 150 MG PO BID, (Reported) Entered as Reported by: ZACHARY HATCH on 12/04/20 1538 Tizanidine HCl (Tizanidine HCl) 4 Mg Tablet, 1 EA PO Q6H PRN for MUSCLE SPASMS, (Reported) Entered as Reported by: ZACHARY HATCH on 12/04/20 1538 Review of Systems Review of Systems Constitutional: No chills, No diaphoresis EENTM: No ear discharge, No hearing loss Respiratory: cough, short of breath Cardiovascular: No chest pain, No palpitations Gastrointestinal: No abdominal pain, No nausea, No vomiting Genitourinary: No dysuria, No frequency Musculoskeletal: No joint pain, No joint swelling Skin: No pruritus, No rash Psychiatric/Neurological: Denies Headache, Denies Numbness All Other Systems Reviewed Negative Unless Noted: Yes Past Wpsnowt-Aeksks-Edqral Hx Patient Social History Tobacco Use?: No Use of E-Cig and/or Vaping dev: No Immunizations Up To Date Tetanus Booster (TDap): More than 5yrs PED Vaccines UTD: No First/Initial COVID19 Vaccinat: NO Seasonal Allergies Seasonal Allergies: Yes Past Medical History Surgeries: Yes (HYPOGONADISM SURGERY ; ENDOSCOPIES) Gallbladder, Testicular Respiratory: Yes Asthma Currently Using CPAP: No Currently Using BIPAP: No Cardiac: Yes High Cholesterol, Hypertension, Palpitations Neurological: Yes Neuropathy Reproductive Disorders: Yes (HYPOGONADISM sx as an infant) Sexually Transmitted Disease: No HIV/AIDS: No Genitourinary: No Gastrointestinal: Yes (ENDOSCOPIES) Gastroesophageal Reflux, Diverticulosis, Esophagitis Musculoskeletal: Yes Arthritis Endocrine: Yes (MORBID OBESITY; DM TYPE 2 (INSULIN AND PO)) Diabetes, Insulin dep HEENT: Yes (GLASSES) Loss of Vision: Denies Hearing Impairment: Denies Cancer: No Psychosocial: Yes ADD/ADHD, Anxiety, Depression Integumentary: No Blood Disorders: No Adverse Reaction/Blood Tranf: No (N/A) Family Medical History Arthritis 19 MOTHER Congenital heart disease Diabetes mellitus 19 FATHER 19 MOTHER FH: brain aneurysm 19 FATHER (cause of - 09/13/2015) Glaucoma 19 FATHER Hypertension 19 FATHER 19 MOTHER Psychosocial problem 19 MOTHER (depression) No Pertinent Family Hx Physical Exam Vital Signs - First Documented 09/29/21 07:10 Temp 35.0 Pulse 100 Resp 18 B/P (MAP) 137/98 (111) Pulse Ox 99 O2 Delivery Room Air Capillary Refill : Less Than 3 Seconds Height: 5'11.00" Weight: 324lbs. 0.0oz. 146.425704yx; 51.00 BMI Method:Stated General Appearance: WD/WN, no apparent distress Eyes: Bilateral Eye Normal Inspection, Bilateral Eye PERRL, Bilateral Eye EOMI HEENT: PERRL/EOMI, normal ENT inspection, pharynx normal Neck: full range of motion, supple, normal inspection Respiratory: lungs clear, normal breath sounds, no respiratory distress, no accessory muscle use Cardiovascular: normal peripheral pulses, regular rate, rhythm Gastrointestinal: normal bowel sounds, non tender Neurologic/Psychiatric: alert, normal mood/affect, oriented x 3 Progress/Results/Core Measures Suspected Sepsis SIRS Temperature: Pulse: 100 Respiratory Rate: 18 Laboratory Tests 09/29/21 08:49: White Blood Count 5.8 Blood Pressure 137 /98 Mean: 111 Laboratory Tests 09/29/21 08:49: Creatinine 1.23, Platelet Count 184 Results/Orders Lab Results Laboratory Tests Test 09/29/21 07:30 09/29/21 08:15 09/29/21 08:49 Range/Units Blood Gas Puncture Site R RAD Blood Gas Patient Temperature 35.0 Arterial Blood pH 7.29 *L 7.37-7.43 Arterial Blood Partial Pressure CO2 23 L 35-45 MMHG Arterial Blood Partial Pressure O2 68 L 79-93 MMHG Arterial Blood HCO3 11 *L 23-27 MMOL/L Arterial Blood Total CO2 11.9 L 21.0-31.0 MMOL/L Arterial Blood Oxygen Saturation 96 94-100 % Arterial Blood Base Excess -14.6 L -2.5-2.5 MMOL/L Aroldo Test YES-POS Blood Gas Ventilator Setting NO Blood Gas Inspired Oxygen ROOM AIR Urine Color YELLOW Urine Clarity CLEAR Urine pH 6.0 5-9 Urine Specific [place] >=1.030 1.016-1.022 Urine Protein TRACE H NEGATIVE Urine Glucose (UA) 2+ H NEGATIVE Urine Ketones 3+ H NEGATIVE Urine Nitrite NEGATIVE NEGATIVE Urine Bilirubin 1+ H NEGATIVE Urine Urobilinogen 0.2 < = 1.0 MG/DL Urine Leukocyte Esterase NEGATIVE NEGATIVE Urine RBC (Auto) TRACE-I H NEGATIVE Urine RBC 0-2 /HPF Urine WBC RARE /HPF Urine Squamous Epithelial Cells 0-2 /HPF Urine Crystals NONE /LPF Urine Bacteria NEGATIVE /HPF Urine Casts NONE /LPF Urine Mucus NEGATIVE /LPF Urine Yeast FEW H /HPF Urine Culture Indicated NO White Blood Count 5.8 4.3-11.0 10^3/uL Red Blood Count 5.99 H 4.30-5.52 10^6/uL Hemoglobin 17.8 H 13.3-17.7 g/dL Hematocrit 51 40-54 % Mean Corpuscular Volume 86 80-99 fL Mean Corpuscular Hemoglobin 30 25-34 pg Mean Corpuscular Hemoglobin Concent 35 32-36 g/dL Red Cell Distribution Width 12.8 10.0-14.5 % Platelet Count 184 130-400 10^3/uL Mean Platelet Volume 11.0 9.0-12.2 fL Immature Granulocyte % (Auto) 2 % Neutrophils (%) (Auto) 48 42-75 % Lymphocytes (%) (Auto) 37 12-44 % Monocytes (%) (Auto) 11 0-12 % Eosinophils (%) (Auto) 2 0-10 % Basophils (%) (Auto) 1 0-10 % Neutrophils # (Auto) 2.8 1.8-7.8 10^3/uL Lymphocytes # (Auto) 2.2 1.0-4.0 10^3/uL Monocytes # (Auto) 0.6 0.0-1.0 10^3/uL Eosinophils # (Auto) 0.1 0.0-0.3 10^3/uL Basophils # (Auto) 0.0 0.0-0.1 10^3/uL Immature Granulocyte # (Auto) 0.1 0.0-0.1 10^3/uL Sodium Level 133 L 135-145 MMOL/L Potassium Level 4.3 3.6-5.0 MMOL/L Chloride Level 102 98-107 MMOL/L Carbon Dioxide Level 13 L 21-32 MMOL/L Anion Gap 18 H 5-14 MMOL/L Blood Urea Nitrogen 11 7-18 MG/DL Creatinine 1.23 0.60-1.30 MG/DL Estimat Glomerular Filtration Rate 64 BUN/Creatinine Ratio 9 Glucose Level 296 H 70-105 MG/DL Calcium Level 9.5 8.5-10.1 MG/DL Phosphorus Level 2.6 2.3-4.7 MG/DL Magnesium Level 2.3 1.6-2.4 MG/DL Troponin I < 0.028 <0.028 NG/ML C-Reactive Protein High Sensitivity 5.12 H 0.00-0.50 MG/DL My Orders Orders - DIANA RUIZ Arterial Blood Gas (09/29/21 07:22) Ed Iv/Invasive Line Start (09/29/21 08:00) Ns Iv 1000 Ml (Sodium Chloride 0.9%) (09/29/21 08:00) Cbc With Automated Diff (09/29/21 08:00) Ua Culture If Indicated (09/29/21 08:00) Hs C Reactive Protein (09/29/21 08:00) Covid-19 External Lab Results (09/29/21 08:01) Magnesium (09/29/21 08:01) Phosphorus (09/29/21 08:01) Aspirin Chewable Tablet (Baby Aspirin Ch (09/29/21 08:15) Troponin I Felix (09/29/21 08:04) Continuous Ekg Monitoring (09/29/21 08:04) Ekg Tracing (09/29/21 08:04) Lidocaine 2% Viscous 15 Ml (Xylocaine Vi (09/29/21 08:15) Famotidine Tablet (Pepcid Tablet) (09/29/21 08:04) Antacid Suspension (Mylanta Suspension (09/29/21 08:15) Chest 1 View, Ap/Pa Only (09/29/21 08:06) Basic Metabolic Panel (09/29/21 10:03) Lorazepam Tablet (Ativan Tablet) (09/29/21 10:14) Acetaminophen Tablet (Tylenol Tablet) (09/29/21 10:30) Medications Given in ED Current Medications Medications Dose Ordered Sig/Nikia Route Start Time Stop Time Status Last Admin Dose Admin Acetaminophen 1,000 mg ONCE ONCE PO 09/29/21 10:30 09/29/21 10:31 DC 09/29/21 10:30 1,000 MG Al Hydrox/Mg Hydrox/Simethicone 30 ml ONCE ONCE PO 09/29/21 08:15 09/29/21 08:16 DC 09/29/21 08:32 30 ML Aspirin 324 mg ONCE ONCE PO 09/29/21 08:15 09/29/21 08:16 DC 09/29/21 08:31 324 MG Lidocaine HCl 15 ml ONCE ONCE PO 09/29/21 08:15 09/29/21 08:16 DC 09/29/21 08:32 15 ML Vital Signs/I&O 09/29/21 09/29/21 07:10 10:25 Temp 35.0 Pulse 100 90 Resp 18 18 B/P (MAP) 137/98 (111) 196/95 Pulse Ox 99 O2 Delivery Room Air Room Air Capillary Refill : Less Than 3 Seconds Blood Pressure Mean: 111 Progress Note #1: Time: 07:29 Progress Note Patient has nonlabored breathing little anxious looking. He likely is having sleep apnea combined with bronchitis. He does not receive benefit from albuterol because he is not actually having any bronchospasms. The combination of albuterol, anxiety, sleep apnea and poor sleep have probably led to his visit today. We will get an ABG to rule out CO2 retention and also to help us understand if he is having an anxiety attack and may benefit from Ativan. He has not been given any steroids. He probably would not benefit from steroid since he is not having any active bronchospasms and he has a history of poorly controlled diabetes with hyperglycemia on his previous visit. He states the Tessalon Perles did not help much with his cough. We encouraged humidifiers vapor rubs and sleeping in chair. We have also encouraged him to set up his sleep study as soon as possible. Progress Note #2: Time: 08:05 Progress Note ABG demonstrates metabolic acidosis which prompted a closer look at his labs from last night which demonstrated a gap of 20, 1+ ketones in the urine and blood glucose above 300. Patient has a history of DKA. Is not having any nausea but he did have a little chest pain which he likened to heartburn. We will give him a GI cocktail 324 of aspirin given EKG and troponin. ECG Initial ECG Impression Date: Sep 29, 2021 Initial ECG Impression Time: 08:13 Initial ECG Rate: 110 Initial ECG Rhythm: S.Tach Initial ECG Intervals: Normal Initial ECG Impression: Normal Comment Sinus tachycardia clinically relevant ST elevations are present. Diagnostic Imaging Diagonstic Imaging: Xray Plain Films/CT/US/NM/MRI: chest Comments [facility] [place] NAME: JOHN CHAVEZ [facility] REC#: [id number] PT STATUS: REG ER : 1980 PHYSICIAN: DIANA RUIZ MD ADMIT DATE: 09/29/21/ER Signed Date of Exam:09/29/21 CHEST 1 VIEW, AP/PA ONLY Indication: Respiratory distress Portable chest 351 Heart size and pulmonary vascularity are normal. Lungs are clear. There are no effusions or pneumothoraces. IMPRESSION: Negative chest Dictated by: Dictated on workstation # [id number] Dict: 09/29/21901 Trans: 09/29/21901 TCB [id number] Interpreted by: LUPE BERNAL MD Electronically signed by: LUPE BERNAL MD 09/29/21901 Reviewed: Reviewed by Me Departure Communication (Admissions) Time/Spoke to Admitting Phy: 10:[address] Liao she agrees to admit the patient to the ICU for insulin drip for DKA. Impression Primary Impression: Diabetic ketoacidosis Qualified Codes: E13.10 - Other specified diabetes mellitus with ketoacidosis without coma Disposition: ADMITTED INPATIENT Condition: Stable Admissions Decision to Admit Reason: Admit from ER (General) Decision to Admit/Date: Sep 29, 2021 Time/Decision to Admit Time: 10:00 Departure-Patient Inst. Referrals: [facility] (PCP/Family) Primary Care Physician DIANA RUIZ Sep 29, 2021 07:31
[2021-09-29 07:35] LABS: ABG BASE EXCESS -14.6 MMOL/L (-2.5-2.5); ABG OXYGEN SATURATION 96 % (94-100); ABG PCO2 23 MMHG (35-45); ABG PO2 68 MMHG (79-93); ABG TCO2 11.9 MMOL/L (21.0-31.0)
[2021-09-29 07:36] LABS: ABG PH 7.29 (7.37-7.43); ALLENS TEST YES-POS; INSPIRED O2 ROOM AIR; VENTILATOR NO
[2021-09-29] MEDS ORDERED: NS IV 1000 ML 1,000 ML IV SCH ×2 (08:00→11:45)
[2021-09-29] MEDS ORDERED: FAMOTIDINE 20 MG (PEPCID) TABLET PO STA (08:04)
[2021-09-29] MEDS ORDERED: LIDOCAINE 2% VISCOUS 15 ML UDC PO ONE (08:15)
[2021-09-29] MEDS ORDERED: ANTACID SUSP 30 ML UDC (MYLANTA) PO ONE (08:15)
[2021-09-29] MEDS ORDERED: ASPIRIN 81 MG CHEW (CHILDREN'S ASA) PO ONE (08:15)
[2021-09-29 08:26] LABS: CLARITY,URINE CLEAR; COLOR,URINE YELLOW; GLUCOSE, URINE (UA) 2+ (NEGATIVE); KETONES,URINE 3+ (NEGATIVE); LEUKOCYTE ESTERASE ,URINE NEGATIVE (NEGATIVE); NITRITE,URINE NEGATIVE (NEGATIVE); PROTEIN,URINE TRACE (NEGATIVE)
[2021-09-29 08:38] LABS: BILIRUBIN,URINE 1+ (NEGATIVE)
[2021-09-29 08:40] LABS: BACTERIA,URINE NEGATIVE /HPF; RBC,URINE 0-2 /HPF; SQUAMOUS EPITHELIAL CELL,UR 0-2 /HPF; WBC,URINE RARE /HPF; YEAST,URINE FEW /HPF
[2021-09-29 08:57] LABS: BASOPHILS % (AUTO) 1 % (0-10); EOSINOPHILS # (AUTO) 0.1 10^3/uL (0.0-0.3); EOSINOPHILS % (AUTO) 2 % (0-10); HEMATOCRIT 51 % (40-54); HEMOGLOBIN 17.8 g/dL (13.3-17.7); LYMPHOCYTES # (AUTO) 2.2 10^3/uL (1.0-4.0); LYMPHOCYTES % (AUTO) 37 % (12-44); MEAN CORPUSCULAR HEMOGLOBIN 30 pg (25-34); MEAN CORPUSCULAR HGB CONC 35 g/dL (32-36); MEAN CORPUSCULAR VOLUME 86 fL (80-99); MONOCYTES # (AUTO) 0.6 10^3/uL (0.0-1.0); MONOCYTES % (AUTO) 11 % (0-12); NEUTROPHILS # (AUTO) 2.8 10^3/uL (1.8-7.8); NEUTROPHILS % (AUTO) 48 % (42-75); PLATELET COUNT 184 10^3/uL (130-400); WHITE BLOOD COUNT 5.8 10^3/uL (4.3-11.0)
--- NOTE | 2021-09-29 09:03 | Diagnostic Imaging Report ---
Indication: Respiratory distress Portable chest 351 Heart size and pulmonary vascularity are normal. Lungs are clear. There are no effusions or pneumothoraces. IMPRESSION: Negative chest Dictated by: Dictated on workstation # [id number]
[2021-09-29 09:18] LABS: PHOSPHORUS 2.6 MG/DL (2.3-4.7)
[2021-09-29 09:20] LABS: MAGNESIUM 2.3 MG/DL (1.6-2.4)
[2021-09-29 10:14] LABS: POTASSIUM 4.3 MMOL/L (3.6-5.0)
[2021-09-29] MEDS ORDERED: LORazepam 0.5 MG (ATIVAN) TABLET PO STA (10:14)
[2021-09-29 10:15] LABS: CALCIUM 9.5 MG/DL (8.5-10.1)
[2021-09-29 10:19] LABS: CREATININE SERUM 1.23 MG/DL (0.60-1.30)
[2021-09-29] MEDS ORDERED: ACETAMINOPHEN 500 MG TAB (TYLENOL) PO ONE (10:30)
[2021-09-29 11:03] VITALS: BP 116/64
[2021-09-29] MEDS ORDERED: 1/2 NS IV SOLUTION 1,000 ML IV ONE (11:47)
[2021-09-29] MEDS: 1/2 NS IV SOLUTION 1,000 ML IV SCH ×9 (11:51→23:42)
[2021-09-29] MEDS ORDERED: ACETAMINOPHEN 500 MG TAB (TYLENOL) PO PRN (12:00)
[2021-09-29] MEDS ORDERED: ONDANSETRON 4 MG/2 ML (SDV) Z0FRAN IVP PRN (12:00)
[2021-09-29 12:09] LABS: HEMATOCRIT 46 % (40-54); MEAN CORPUSCULAR HEMOGLOBIN 30 pg (25-34); MEAN CORPUSCULAR HGB CONC 35 g/dL (32-36); MEAN CORPUSCULAR VOLUME 86 fL (80-99); MEAN PLATELET VOLUME 11.4 fL (9.0-12.2); PLATELET COUNT 83 10^3/uL (130-400); WHITE BLOOD COUNT 5.1 10^3/uL (4.3-11.0)
[2021-09-29 12:14] LABS: POTASSIUM 4.8 MMOL/L (3.6-5.0)
[2021-09-29 12:15] LABS: CALCIUM 8.5 MG/DL (8.5-10.1)
[2021-09-29 12:20] LABS: CREATININE SERUM 1.12 MG/DL (0.60-1.30)
[2021-09-29] MEDS: POTASSIUM CL 10MEQ/50ML IVPB 50 ML IV SCH ×9 (12:21→20:59)
--- NOTE | 2021-09-29 12:52 | History & Physical-Hospitalist ---
KATARZYNA ABRAHAM 09/29/21 1252: History of Present Illness HPI/Chief Complaint The patient is a 41 YO male with a history of DMT2, super obesity, GERD, HTN, high cholesterol, and diverticulosis who is admitted to the ICU for DKA. The patient reports that 2-3 days ago having the onset of shortness of breath and labored breathing that progressed with time. He reports that his SOB is constant and present without exertion. The patient presented to the ED yesterday, then was DC'd, but returned with worsening SOB symptoms and was found to have DKA. The patient also reports having dry mouth, sore throat and ear pain. He also reports not sleeping well over the past 30 days, he has not had a sleep study. He does not take his DM medicine as Rxd. He does not follow a diabetic diet. Date Seen 09/29/21 Time Seen by a Provider: 12:30 Attending Physician Ori Gilbert MD [facility] Referring Physician Date of Admission Sep 29, 2021 at 10:15 Home Medications & Allergies Home Medications Reviewed patient Home Medication Reconciliation performed by pharmacy medication reconciliations utility technician and/or nursing. Patients Allergies have been reviewed. Allergies Allergies Coded Allergies sertraline (Verified Allergy, Severe, RASH, SWELLING, 04/09/20) "FELT LOOPY" bupropion (Verified Allergy, Unknown, "CAUSED ME TO BANG MY HEAD ON THE WALL", 04/09/20) buspirone (Verified Allergy, Unknown, THROAT SWELLED, 04/09/20) cephalexin (Verified Allergy, Unknown, HIVES, 04/09/20) codeine (Verified Allergy, Unknown, 04/09/20) sulfamethoxazole (Verified Adverse Reaction, Unknown, Itching, 04/09/20) trimethoprim (Verified Adverse Reaction, Unknown, Itching, 04/09/20) Past Cjxytub-Ohyupp-Qrinir Hx Patient Social History Tobacco Use?: No Use of E-Cig and/or Vaping dev: No Substance use?: No Alcohol Use?: No Pt feels they are or have been: No Immunizations Up To Date First/Initial COVID19 Vaccinat: NO Tetanus Booster (TDap): Unknown Hepatitis A: No Hepatitis B: No PED Vaccines UTD: No Seasonal Allergies Seasonal Allergies: Yes Current Status Primary Language: Liberian Preferred Spoken Language: Liberian Implanted or Applied Medical D: None Past Medical History Surgeries: Gallbladder, Testicular Asthma Currently Using CPAP: No Currently Using BIPAP: No High Cholesterol, Hypertension, Palpitations Neuropathy Sexually Transmitted Disease: No HIV/AIDS: No Gastroesophageal Reflux, Diverticulosis, Esophagitis Arthritis Diabetes, Insulin dep Loss of Vision: Denies Hearing Impairment: Denies ADD/ADHD, Anxiety, Depression Blood Disorders: No Adverse Reaction/Blood Tranf: No (N/A) PMH: DM - diagnosed as Type 2 in his 20's - admitted for DKA 2011, 09/19/15 Hypertension Anxiety Hypogonadism (not currently treated) Obesity ADHA Chronic musculoskeletal pain PSH: Testicular surgery as for undescended testicles bilaterally Lap cholecystectomy 09/2014 Family Medical History Arthritis 19 MOTHER Congenital heart disease Diabetes mellitus 19 FATHER 19 MOTHER FH: brain aneurysm 19 FATHER (cause of - 09/13/2015) Glaucoma 19 FATHER Hypertension 19 FATHER 19 MOTHER Psychosocial problem 19 MOTHER (depression) No Pertinent Family Hx Review of Systems Constitutional: No chills, No fever EENTM: ear pain; No blurred vision, No double vision Respiratory: phlegm, short of breath Cardiovascular: No chest pain, No palpitations Gastrointestinal: No constipation; diarrhea, nausea (some nausea reported after given anxiety medicine); No vomiting Skin: pruritus (of scalp) Psychiatric/Neurological: No Symptoms Reported Physical Exam Physical Exam Vital Signs Vital Signs - First Documented 09/29/21 07:10 Temp 35.0 Pulse 100 Resp 18 B/P (MAP) 137/98 (111) Pulse Ox 99 O2 Delivery Room Air Capillary Refill : Less Than 3 Seconds Height, Weight, BMI Height: 5'11.00" Weight: 324lbs. 0.0oz. 146.998710qh; 51.00 BMI Method:Stated General Appearance: No Apparent Distress, Obese Eyes: Bilateral Eye Normal Inspection, Bilateral Eye PERRL, Bilateral Eye EOMI HEENT: PERRL/EOMI, Pharynx Normal Respiratory: Chest Non Tender, No Accessory Muscle Use, No Respiratory Distress, Wheezing (slight on R anterior post ) Cardiovascular: Regular Rate, Rhythm, No Edema, No Murmur, Normal Peripheral Pulses Gastrointestinal: Normal Bowel Sounds, No Organomegaly, No Pulsatile Mass, Tenderness (at LLQ) Neurologic/Psychiatric: Alert, Oriented x3, Normal Mood/Affect, Other (reports weakness d/t lack of sleep he says ) Skin: Warm/Dry Results Results/Procedures Labs Laboratory Tests 09/29/21 08:49 09/29/21 11:56 Patient resulted labs reviewed. Assessment/Plan Assessment and Plan DMT2 DKA super obesity HTN Hyperlipidemia GERD Diverticulosis DMT2 DKA Continue insulin drip, until anion gap normalized. Check anion gap Q4 hours. Continue IVF and potassium replacement. Monitor K+ levels. HTN Hyperlipidemia GERD Continue home meds. Diverticulosis Super obesity no acute management needed ORI GILBERT MD 09/29/21 2210: Past Omdbcpr-Hkkmrc-Bjaaue Hx Family Medical History Arthritis 19 MOTHER Congenital heart disease Diabetes mellitus 19 FATHER 19 MOTHER FH: brain aneurysm 19 FATHER (cause of - 09/13/2015) Glaucoma 19 FATHER Hypertension 19 FATHER 19 MOTHER Psychosocial problem 19 MOTHER (depression) Physical Exam Physical Exam General Appearance: No Apparent Distress, WD/WN, Obese, Other (eating lunch) HEENT: PERRL/EOMI Neck: Full Range of Motion, Non Tender, Supple Respiratory: Chest Non Tender, Lungs Clear, No Accessory Muscle Use, No Respiratory Distress Cardiovascular: No Edema, No Murmur Gastrointestinal: Normal Bowel Sounds, Non Tender, Soft Back: No CVA Tenderness, No Vertebral Tenderness Extremity: Normal Range of Motion, Non Tender, No Calf Tenderness, No Pedal Edema Neurologic/Psychiatric: Alert, Oriented x3, Normal Mood/Affect, Other (reports weakness d/t lack of sleep he says ) Skin: Normal Color, Warm/Dry Lymphatic: No Adenopathy Assessment/Plan Admission Diagnosis DKA Admission Status: Inpatient Order (span 2 midnights) Reason for Inpatient Admission: Requiring insulin drip and close monitoring in ICU with q 4 hr labs Supervisory-Addendum Brief Verification & Attestation Participated in pt care: history, physical Personally performed: exam, history Care discussed with: Medical Student Procedures: n/a Verification and Attestation of Medical Student E/M Service A medical student performed and documented this service in my presence. I reviewed and verified all information documented by the medical student and made modifications to such information, when appropriate. I personally performed the physical exam and medical decision making. Ori Gilbert, Sep 29, 2021,22:07 Assessment: DKA Type 2 IDDM Plan: - Insulin gtts, will transition to subcutaneous insulin likely in AM - ADA diet - Blood sugars hourly - BMP q 4hrs to monitor anion gap KATARZYNA ABRAHAM Sep 29, 2021 12:52 ORI GILBERT MD Sep 29, 2021 22:10
[2021-09-29] MEDS ORDERED: AMOX500C2 PO (14:05)
[2021-09-29] MEDS ORDERED: ACET1TAB43 PO (14:12)
[2021-09-29] MEDS ORDERED: NFCHLORHGL PO (14:12)
[2021-09-29] MEDS ORDERED: IBUP-1773 PO (14:12)
[2021-09-29] MEDS ORDERED: INSU500I SC (14:12)
[2021-09-29] MEDS ORDERED: FLUT16SP22 NSEACH (14:12)
[2021-09-29] MEDS ORDERED: ASPI-1238 PO (14:15)
[2021-09-29] MEDS ORDERED: HYDR-700 PO (14:15)
[2021-09-29] MEDS ORDERED: HYDR25TA4 PO (14:15)
[2021-09-29] MEDS ORDERED: CETI10TA17 PO (14:16)
[2021-09-29] MEDS ORDERED: ASCO500P18 PO (14:17)
[2021-09-29 14:34] LABS: POTASSIUM 4.4 MMOL/L (3.6-5.0)
[2021-09-29 14:35] LABS: CALCIUM 8.7 MG/DL (8.5-10.1)
[2021-09-29 14:40] LABS: CREATININE SERUM 1.14 MG/DL (0.60-1.30)
--- NOTE | 2021-09-29 14:50 | Tele-ICU Consult ---
History of Present Illness History of Present Illness Date Seen by Provider: Sep 29, 2021 Time Seen by Provider: 14:50 Date of Admission Allergies and Home Medications Allergies Coded Allergies: sertraline (Verified Allergy, Severe, RASH, SWELLING, 04/09/20) "FELT LOOPY" bupropion (Verified Allergy, Unknown, "CAUSED ME TO BANG MY HEAD ON THE WALL", 04/09/20) buspirone (Verified Allergy, Unknown, THROAT SWELLED, 04/09/20) cephalexin (Verified Allergy, Unknown, HIVES, 04/09/20) codeine (Verified Allergy, Unknown, 04/09/20) sulfamethoxazole (Verified Adverse Reaction, Unknown, Itching, 04/09/20) trimethoprim (Verified Adverse Reaction, Unknown, Itching, 04/09/20) Home Medications Acetaminophen with Codeine 1 Each Tablet, 1 EACH PO DAILY PRN for PAIN-MILD (1- 4), (Reported) Amoxicillin 500 Mg Capsule, 500 MG PO BID, (Reported) FILLED 09-15-2021 #30/15 DAY SUPPLY Ascorbic Acid 500 Mg Powd.pack, 500 MG PO DAILY, (Reported) Aspirin 81 Mg Tablet.dr, 81 MG PO DAILY, (Reported) Cetirizine HCl 10 Mg Tablet, 10 MG PO DAILY PRN for ALLERGIES, (Reported) Chlorhexidine Gluconate 473 Ml Mouthwash, 15 ML PO DAILY, (Reported) Fluticasone Propionate 16 Gm [place].susp, 1 SPRAY NSEACH DAILY PRN for ALLERGIES, (Reported) Hydrochlorothiazide 25 Mg Tablet, 25 MG PO DAILY PRN for FLUID RETENTION, (Reported) Hydroxyzine HCl 25 Mg Tablet, 25 MG PO TID PRN for ANXIETY, (Reported) Ibuprofen 600 Mg Tablet, 600 MG PO Q8H PRN for PAIN-MILD (1-4), (Reported) Insulin Regular, Human 500 Unit/1 Ml Insuln.pen, 150 UNITS SC BID, (Reported) Pantoprazole Sodium 40 Mg Tablet.dr, 40 MG PO DAILY, (Reported) Pregabalin 150 Mg Capsule, 150 MG PO DAILY, (Reported) Past Medical/Social/Family Hx Patient Social History Tobacco Use?: No Use of E-Cig and/or Vaping dev: No Substance use?: No Alcohol Use?: No Pt stated abuse/neglect: No Immunizations Up To Date First/Initial COVID19 Vaccinat: NO Tetanus Booster (TDap): Unknown Hepatitis A: No Hepatitis B: No TB Skin Test: None Current Status Primary Language: Ug[place]an Preferred Spoken Language: Ug[place]an Implanted or Applied Medical D: None Past Medical History PMH: DM - diagnosed as Type 2 in his 20's - admitted for DKA 2011, 09/19/15 Hypertension Anxiety Hypogonadism (not currently treated) Obesity ADHA Chronic musculoskeletal pain PSH: Testicular surgery as for undescended testicles bilaterally Lap cholecystectomy 09/2014 Review of Systems Constitutional: see HPI Focused Exam Height, Weight, BMI Height: 5'11.00" Weight: 324lbs. 0.0oz. 146.866031ml; 51.00 BMI Method:Stated Exam Exam Patient acknowledged, consented, and participated in this virtual visit which was conducted using real time audio/video Vital Signs Date Time Temp Pulse Resp B/P (MAP) Pulse Ox O2 Delivery O2 Flow Rate FiO2 09/29/21 11:03 100 18 116/64 98 09/29/21 10:25 90 18 196/95 Room Air 09/29/21 07:10 35.0 100 18 137/98 (111) 99 Room Air Height & Weight Height: 5'11.00" Weight: 324lbs. 0.0oz. 146.586771va; 51.00 BMI Method:Stated General Appearance: No Apparent Distress, Obese HEENT: PERRL/EOMI, Pharynx Normal Respiratory: Chest Non Tender, No Accessory Muscle Use, No Respiratory Distress, Wheezing (slight on R anterior post ) Cardiovascular: Regular Rate, Rhythm, No Edema, No Murmur, Normal Peripheral Pulses Capillary Refill: Less Than 3 Seconds Gastrointestinal: normal bowel sounds, non tender Neurologic/Psychiatric: Alert, Oriented x3, Normal Mood/Affect, Other (reports weakness d/t lack of sleep he says ) Skin: Warm/Dry Results Lab Laboratory Tests 09/29/21 08:49 09/29/21 11:56 09/29/21 14:05 Assessment/Plan Assessment/Plan (Tele-ICU Physician , consultation) Available chart/ vitals / labs / Images reviewed H&P is from ER notes Patient's information available about PMH, Shx, Fhx allergy reviewed in EMR. ROS as per chart and RN report Now in ICU, hemodynamically stable Video assessment done using teleICU camera, rest of exam as per RN Discussed with RN. Consultants: Hospital course: 09/29 - DKA A/P DKA -Unclear precipitant, No suspicious for new infection, non-compliant *Insulin drip continue to monitor for resolution of acidosis, AG and electrolytes. Continue hydration. *Tx Gastroparesis prn HTN obesity echo on 12/05/19: LVEF 50-55%, no wall motion abnormality, mild conc LVH, moderately dilated LA, PASP 25-30 mmHg - MPI on 12/06/19: no ischemia or infarction, normal LVEF Lines : (Central Line Necessity Reviewed) Crain: OG: Nutrition: Analgesia: Anxiety/ delirium VTE Prophylaxis: lovenox Stress Ulcer Prophylaxis: na Plans in collaboration with bedside consultants and IM MDs. Discussed with RN to reach out if any questions or concerns A total of 20 minutes of critical care time was devoted to this patient today, required to treat and/or prevent further deterioration of critical care condition ( as above ) . JOSELYN ERICKSON MD Sep 29, 2021 14:50
[2021-09-29] MEDS: D5 1/2 NS 1000 ML IV SOLUTION 1,000 ML IV SCH ×2 (17:26→21:00)
[2021-09-29] MEDS: ENOXAPARIN 60 MG/0.6 ML (LOVENOX) SYR SQ SCH (17:27)
[2021-09-29] MEDS: METOCLOPRAMIDE 10 MG (REGLAN) TAB PO SCH ×2 (17:27→20:59)
[2021-09-29 18:52] LABS: POTASSIUM 4.4 MMOL/L (3.6-5.0)
[2021-09-29 18:53] LABS: CALCIUM 8.5 MG/DL (8.5-10.1)
[2021-09-29 18:57] LABS: CREATININE SERUM 1.03 MG/DL (0.60-1.30)
[2021-09-29] MEDS: guaiFENesin (MUCINEX) 600 MG TAB PO SCH (20:59)
[2021-09-29] MEDS ORDERED: ALPRAZolam 0.5 MG (XANAX) TAB ONE (21:03)
[2021-09-29] MEDS: ALPRAZolam 0.5 MG (XANAX) TAB PO SCH (21:04)
[2021-09-29 21:28] LABS: CLARITY,URINE CLEAR; COLOR,URINE YELLOW; GLUCOSE, URINE (UA) 3+ (NEGATIVE); KETONES,URINE 3+ (NEGATIVE); LEUKOCYTE ESTERASE ,URINE NEGATIVE (NEGATIVE); NITRITE,URINE NEGATIVE (NEGATIVE); PH,URINE 5.5 (5-9); PROTEIN,URINE NEGATIVE (NEGATIVE)
[2021-09-29 21:43] LABS: AMORPHOUS SEDIMENT,UR FEW AMOR URATES /LPF; BACTERIA,URINE NEGATIVE /HPF; BILIRUBIN,URINE 1+ (NEGATIVE); RBC,URINE 0-2 /HPF
[2021-09-29 22:23] LABS: CALCIUM 8.4 MG/DL (8.5-10.1)
[2021-09-29 22:27] LABS: CREATININE SERUM 1.05 MG/DL (0.60-1.30)
[2021-09-30] MEDS: POTASSIUM CL 10MEQ/50ML IVPB 50 ML IV SCH ×5 (00:07→08:59)
[2021-09-30] MEDS: D5 1/2 NS 1000 ML IV SOLUTION 1,000 ML IV SCH ×2 (01:57→06:00)
[2021-09-30] MEDS: ENOXAPARIN 60 MG/0.6 ML (LOVENOX) SYR SQ SCH ×2 (04:02→16:16)
[2021-09-30 04:55] LABS: BASOPHILS % (AUTO) 1 % (0-10); EOSINOPHILS # (AUTO) 0.2 10^3/uL (0.0-0.3); EOSINOPHILS % (AUTO) 3 % (0-10); HEMATOCRIT 40 % (40-54); HEMOGLOBIN 13.9 g/dL (13.3-17.7); LYMPHOCYTES # (AUTO) 2.2 10^3/uL (1.0-4.0); LYMPHOCYTES % (AUTO) 43 % (12-44); MEAN CORPUSCULAR HEMOGLOBIN 30 pg (25-34); MEAN CORPUSCULAR HGB CONC 35 g/dL (32-36); MEAN CORPUSCULAR VOLUME 85 fL (80-99); MONOCYTES # (AUTO) 0.5 10^3/uL (0.0-1.0); MONOCYTES % (AUTO) 9 % (0-12); NEUTROPHILS # (AUTO) 2.1 10^3/uL (1.8-7.8); NEUTROPHILS % (AUTO) 42 % (42-75); PLATELET COUNT 155 10^3/uL (130-400)
[2021-09-30 05:06] LABS: ALBUMIN 3.4 GM/DL (3.2-4.5); POTASSIUM 3.7 MMOL/L (3.6-5.0)
[2021-09-30 05:07] LABS: CALCIUM 8.4 MG/DL (8.5-10.1)
[2021-09-30 05:09] LABS: TOTAL PROTEIN 6.2 GM/DL (6.4-8.2)
[2021-09-30 05:10] LABS: BILIRUBIN,TOTAL 0.3 MG/DL (0.1-1.0)
[2021-09-30 05:12] LABS: CREATININE SERUM 0.92 MG/DL (0.60-1.30); PHOSPHORUS 1.9 MG/DL (2.3-4.7)
[2021-09-30] MEDS: 1/2 NS IV SOLUTION 1,000 ML IV SCH ×2 (05:37)
[2021-09-30] MEDS: METOCLOPRAMIDE 10 MG (REGLAN) TAB PO SCH ×2 (08:57→21:04)
[2021-09-30] MEDS: guaiFENesin (MUCINEX) 600 MG TAB PO SCH ×2 (08:57→21:04)
[2021-09-30 11:44] LABS: POTASSIUM 3.8 MMOL/L (3.6-5.0)
[2021-09-30 11:45] LABS: CALCIUM 8.5 MG/DL (8.5-10.1)
[2021-09-30 11:50] LABS: CREATININE SERUM 0.94 MG/DL (0.60-1.30)
--- NOTE | 2021-09-30 13:33 | Pulmonary Progress Note ---
Subjective Date Seen by a Provider: Sep 30, 2021 Time Seen by a Provider: 07:45 Subjective/Events-last exam Frankie states he has mild abdominal pain related to hunger but no new symptoms. He did admit last week he had sinus congestion, which reportedly progressed to a cough and a sore throat and suppressed his appetite. He states his congestion and bronchitis have since cleared up, although he reports his throat is still mildly sore. Frankie denies current SOB or confusion. Exam Exam Patient acknowledged, consented, and participated in this virtual visit which was conducted using real time audio/video Vital Signs Date Time Temp Pulse Resp B/P (MAP) Pulse Ox O2 Delivery O2 Flow Rate FiO2 09/30/21 12:00 103 30 95 09/30/21 11:24 99 Room Air 09/30/21 11:00 105 13 97 Room Air 09/30/21 10:45 96 Nasal Cannula 2.00 09/30/21 10:00 100 13 97 09/30/21 09:00 105 20 146/94 96 09/30/21 08:00 104 20 137/85 97 09/30/21 08:00 99 Room Air 09/30/21 08:00 36.5 09/30/21 07:00 93 31 143/78 97 09/30/21 07:00 94 09/30/21 06:00 103 8 137/90 97 Nasal Cannula 2.00 09/30/21 05:00 94 20 132/90 95 Nasal Cannula 2.00 09/30/21 04:03 99 Room Air 09/30/21 04:00 100 24 119/66 96 Nasal Cannula 2.00 09/30/21 03:00 98 21 129/56 99 Nasal Cannula 2.00 09/30/21 02:56 36.8 Nasal Cannula 2.00 09/30/21 02:00 96 25 178/103 97 Nasal Cannula 2.00 09/30/21 01:52 Nasal Cannula 2.00 09/30/21 01:00 93 09/30/21 01:00 93 159/81 94 Room Air 09/30/21 00:35 98 Room Air 09/30/21 00:00 103 22 157/86 98 Room Air 09/29/21 23:00 36.6 Room Air 09/29/21 23:00 90 21 134/101 91 Room Air 09/29/21 22:00 96 28 169/95 97 Room Air 09/29/21 21:00 97 22 123/66 100 Room Air 09/29/21 20:24 100 Room Air 09/29/21 20:00 105 19 138/95 Room Air 09/29/21 20:00 36.2 09/29/21 19:00 108 28 160/86 98 Room Air 09/29/21 19:00 108 09/29/21 19:00 Room Air 09/29/21 18:00 106 13 164/89 Room Air 09/29/21 17:00 101 29 146/77 Room Air 09/29/21 16:00 97 Room Air 09/29/21 16:00 100 31 142/88 97 Room Air 09/29/21 16:00 36.1 09/29/21 15:00 106 23 98 Room Air 09/29/21 14:00 102 24 98 Room Air 09/29/21 13:00 106 09/29/21 13:00 105 25 Room Air I & O 09/30/21 07:00 Intake Total 7360 ml Output Total 800 ml Balance 6560 ml Height & Weight Height: 5'11.00" Weight: 324lbs. 0.0oz. 146.551694ea; 51.56 BMI Method:Stated General Appearance: No Apparent Distress, WD/WN, Obese, Other (eating lunch) HEENT: PERRL/EOMI; No Tonsillar Exudate, No Tonsillar Enlargement; Other (peritonsillar erythema) Neck: Full Range of Motion, Non Tender, Supple Respiratory: Chest Non Tender, Lungs Clear, No Accessory Muscle Use, No Respiratory Distress Cardiovascular: No Edema, No Murmur Capillary Refill: Less Than 3 Seconds Gastrointestinal: normal bowel sounds, non tender; No guarding Extremity: Normal Range of Motion, Non Tender, No Calf Tenderness, No Pedal Edema Neurologic/Psychiatric: Alert, Oriented x3, Normal Mood/Affect, Other (reports weakness d/t lack of sleep he says ) Skin: Normal Color, Warm/Dry Lymphatic: No Adenopathy Results Lab Laboratory Tests 09/29/21 08:49 09/29/21 11:56 09/29/21 14:05 09/29/21 18:20 09/29/21 20:03 09/30/21 04:35 09/30/21 10:50 Assessment/Plan Assessment/Plan pharyngitis low suspicion for strep due to presence of cough, lack of fever, no exudate or lymphadenopathy. Tested negative for covid and influenza on 06/26 DKA anion gap closed at 9, beta hydroxybuterate down to 1.67. episode likely triggered by recent illness safe to transition the patient off of the insulin drip at this time ALDEN DELGADO MED STUDENT Sep 30, 2021 13:33
[2021-09-30] MEDS: inSUlin ASPART (NovoLOG) 1 UNIT/0.01 ML (CHARGE PER UNIT) SC SCH ×2 (16:16→21:05)
--- NOTE | 2021-09-30 16:36 | Progress Note ---
Subjective Subjective/Events-last exam Patient is feeling much better this AM. States that he is still having a cough. States that he did not get any sleep last night and would like something to help him sleep. Review of Systems Pulmonary: No Dyspnea; Cough Cardiovascular: No: Chest Pain, Palpitations, Edema Gastrointestinal: No: Nausea, Vomiting, Abdominal Pain, Diarrhea, Constipation Objective Exam Last Set of Vital Signs Vital Signs Date Time Temp Pulse Resp B/P (MAP) Pulse Ox O2 Delivery O2 Flow Rate FiO2 09/30/21 15:36 37.0 102 20 169/79 96 Room Air 09/30/21 10:45 2.00 Capillary Refill : Less Than 3 Seconds I&O Intake and Output 09/30/21 00:00 Intake Total 4160 ml Output Total 800 ml Balance 3360 ml Intake Oral 910 ml IV Total 3250 ml Output Urine Total 800 ml # Voids 4 # Bowel Movements 2 Daily Weight Change No General: Alert, Oriented X3, Cooperative, No Acute Distress Lungs: Clear to Auscultation, Normal Air Movement Heart: Regular Rate, No Murmurs Abdomen: Normal Bowel Sounds, Soft, No Tenderness, No Masses Extremities: No Edema, No Tenderness/Swelling Neuro: Normal Speech, Sensation Intact, Cranial Nerves 3-12 NL Psych/Mental Status: Mental Status NL, Mood NL Results/Procedures Lab Laboratory Tests 09/29/21 16:42: Glucometer 240H 09/29/21 17:54: Glucometer 225H 09/29/21 18:20: Sodium Level 132L, Potassium Level 4.4, Chloride Level 106, Carbon Dioxide Level 12L, Anion Gap 14, Blood Urea Nitrogen 10, Creatinine 1.03, Estimat Glomerular Filtration Rate 79, BUN/Creatinine Ratio 10, Glucose Level 220H, Calcium Level 8.5 09/29/21 18:56: Glucometer 239H 09/29/21 19:52: Glucometer 240H 09/29/21 20:03: Sodium Level 134L, Potassium Level 4.0, Chloride Level 107, Carbon Dioxide Level 12L, Anion Gap 15H, Blood Urea Nitrogen 10, Creatinine 1.05, Estimat Glomerular Filtration Rate 77, BUN/Creatinine Ratio 10, Glucose Level 174H, Calcium Level 8.4L 09/29/21 20:55: Glucometer 212H 09/29/21 21:00: Urine Color YELLOW, Urine Clarity CLEAR, Urine pH 5.5, Urine Specific [place] 1.025H, Urine Protein NEGATIVE, Urine Glucose (UA) 3+H, Urine Ketones 3+H, Urine Nitrite NEGATIVE, Urine Bilirubin 1+H, Urine Urobilinogen 0.2, Urine Leukocyte Esterase NEGATIVE, Urine RBC (Auto) TRACE-IH, Urine RBC 0-2, Urine WBC NONE, Urine Crystals PRESENTH, Urine Amorphous Sediment FEW LINDA URATESH, Urine Bacteria NEGATIVE, Urine Casts NONE, Urine Mucus SMALLH, Urine Culture Indicated NO 09/29/21 21:54: Glucometer 227H 09/29/21 22:52: Glucometer 178H 09/30/21 00:04: Glucometer 192H 09/30/21 00:57: Glucometer 208H 09/30/21 01:48: Glucometer 203H 09/30/21 02:54: Glucometer 175H 09/30/21 04:00: Glucometer 162H 09/30/21 04:35: White Blood Count 5.0, Red Blood Count 4.68, Hemoglobin 13.9, Hematocrit 40, Mean Corpuscular Volume 85, Mean Corpuscular Hemoglobin 30, Mean Corpuscular Hemoglobin Concent 35, Red Cell Distribution Width 12.7, Platelet Count 155, Mean Platelet Volume 11.0, Immature Granulocyte % (Auto) 2, Neutrophils (%) (Auto) 42, Lymphocytes (%) (Auto) 43, Monocytes (%) (Auto) 9, Eosinophils (%) (Auto) 3, Basophils (%) (Auto) 1, Neutrophils # (Auto) 2.1, Lymphocytes # (Auto) 2.2, Monocytes # (Auto) 0.5, Eosinophils # (Auto) 0.2, Basophils # (Auto) 0.0, Immature Granulocyte # (Auto) 0.1, Sodium Level 135, Potassium Level 3.7, Chloride Level 111H, Carbon Dioxide Level 15L, Anion Gap 9, Blood Urea Nitrogen 9, Creatinine 0.92, Estimat Glomerular Filtration Rate 90, BUN/Creatinine Ratio 10, Glucose Level 150H, Calcium Level 8.4L, Corrected Calcium 8.9, Phosphorus Level 1.9L, Magnesium Level 2.0, Total Bilirubin 0.3, Aspartate Amino Transf (AST/SGOT) 56H, Alanine Aminotransferase (ALT/SGPT) 67H, Alkaline Phosphatase 68, Total Protein 6.2L, Albumin 3.4, Beta-Hydroxybutyrate (Chem panel) 1.67H 09/30/21 05:50: Glucometer 157H 09/30/21 06:38: Glucometer 162H 09/30/21 08:19: Glucometer 140H 09/30/21 09:05: Glucometer 192H 09/30/21 10:12: Glucometer 231H 09/30/21 10:50: Sodium Level 135, Potassium Level 3.8, Chloride Level 110H, Carbon Dioxide Level 17L, Anion Gap 8, Blood Urea Nitrogen 7, Creatinine 0.94, Estimat Glomerular Filtration Rate 88, BUN/Creatinine Ratio 7, Glucose Level 218H, Calcium Level 8.5 09/30/21 11:00: Glucometer 206H 09/30/21 15:44: Glucometer 306H Microbiology 09/29/21 MRSA Screen - Final, Complete MRSA not isolated Assessment/Plan Assessment/Plan (1) Diabetic ketoacidosis Status: Acute Assessment & Plan: 09/30: Transition to subcutaneous insulin, give dose and then turn off insulin gtts 1 hr later, ok to transfer to [facility] after off of insulin gtts Qualifiers: Qualified Codes: E13.10 - Other specified diabetes mellitus with ketoacidosis without coma (2) Insulin dependent diabetes mellitus Status: Chronic Assessment & Plan: 09/30: Restarted home insulin at lower dosing 2/2 to decreased appetite and food intake, continue ACHS accuchecks (3) Obstructive sleep apnea Status: Acute (4) Cough Status: Acute Assessment & Plan: 09/30: Continue mucinex and flonase, push oral hydration ORI LIAO MD Sep 30, 2021 16:36
[2021-09-30] MEDS ORDERED: FLUTICASONE NASAL SPRAY (FLONASE) 16 GM BTL NS PRN (16:45)
[2021-09-30] MEDS ORDERED: NON-FORMULARY MEDICATION 1 EA EA (Hydroxyzine HCl 25 MG) PO PRN (16:45)
[2021-09-30] MEDS ORDERED: hydrOXYzine (VISTARIL/ATARAX) 25 MG capsule/tablet PO PRN (16:45)
[2021-09-30] MEDS: ALPRAZolam 0.5 MG (XANAX) TAB PO SCH (21:04)
[2021-10-01 04:11] LABS: BASOPHILS % (AUTO) 0 % (0-10); EOSINOPHILS # (AUTO) 0.1 10^3/uL (0.0-0.3); EOSINOPHILS % (AUTO) 3 % (0-10); HEMATOCRIT 41 % (40-54); HEMOGLOBIN 14.6 g/dL (13.3-17.7); LYMPHOCYTES # (AUTO) 2.3 10^3/uL (1.0-4.0); LYMPHOCYTES % (AUTO) 50 % (12-44); MEAN CORPUSCULAR HEMOGLOBIN 30 pg (25-34); MEAN CORPUSCULAR HGB CONC 35 g/dL (32-36); MEAN CORPUSCULAR VOLUME 84 fL (80-99); MEAN PLATELET VOLUME 11.1 fL (9.0-12.2); MONOCYTES # (AUTO) 0.4 10^3/uL (0.0-1.0); MONOCYTES % (AUTO) 9 % (0-12); NEUTROPHILS # (AUTO) 1.7 10^3/uL (1.8-7.8); NEUTROPHILS % (AUTO) 36 % (42-75); PLATELET COUNT 166 10^3/uL (130-400); WHITE BLOOD COUNT 4.7 10^3/uL (4.3-11.0)
[2021-10-01 04:23] LABS: ALBUMIN 3.6 GM/DL (3.2-4.5); POTASSIUM 3.8 MMOL/L (3.6-5.0)
[2021-10-01 04:24] LABS: CALCIUM 9.8 MG/DL (8.5-10.1)
[2021-10-01 04:26] LABS: TOTAL PROTEIN 6.6 GM/DL (6.4-8.2)
[2021-10-01 04:28] LABS: BILIRUBIN,TOTAL 0.4 MG/DL (0.1-1.0)
[2021-10-01 04:29] LABS: CREATININE SERUM 0.81 MG/DL (0.60-1.30); PHOSPHORUS 2.9 MG/DL (2.3-4.7)
[2021-10-01] MEDS: ENOXAPARIN 60 MG/0.6 ML (LOVENOX) SYR SQ SCH (05:53)
[2021-10-01] MEDS: inSUlin ASPART (NovoLOG) 1 UNIT/0.01 ML (CHARGE PER UNIT) SC SCH ×2 (05:54→11:43)
[2021-10-01] MEDS ORDERED: PREGABALIN 150 MG (LYRICA) CAPSULE PO SCH (09:00)
[2021-10-01] MEDS ORDERED: ASPIRIN E.C. 81 MG (ECOTRIN) TAB PO SCH (09:00)
[2021-10-01] MEDS ORDERED: LORATADINE (CLARITIN) 10 MG TAB PO PRN (09:00)
[2021-10-01] MEDS ORDERED: PANTOPRAZOLE 40 MG (PROTONIX) TAB PO SCH (09:00)
[2021-10-01] MEDS: METOCLOPRAMIDE 10 MG (REGLAN) TAB PO SCH (10:12)
[2021-10-01] MEDS: guaiFENesin (MUCINEX) 600 MG TAB PO SCH (10:12)
--- NOTE | 2021-10-01 12:12 | Discharge Summary ---
Diagnosis/Chief Complaint Date of Admission Sep 29, 2021 at 10:15 Date of Discharge 10/01/21 Admission Diagnosis Admission Diagnosis See problem list Discharge Diagnosis See below Problems/Diagnosis: (1) Diabetic ketoacidosis Assessment & Plan: 09/30: Transition to subcutaneous insulin, give dose and then turn off insulin gtts 1 hr later, ok to transfer to [facility] after off of insulin gtts Qualifiers: Qualified Codes: E13.10 - Other specified diabetes mellitus with ketoacidosis without coma Status: Acute (2) Insulin dependent diabetes mellitus Assessment & Plan: 09/30: Restarted home insulin at lower dosing 2/2 to decreased appetite and food intake, continue ACHS accuchecks Status: Chronic (3) Obstructive sleep apnea Status: Acute (4) Cough Assessment & Plan: 09/30: Continue mucinex and flonase, push oral hydration Status: Acute Discharge Summary-Simple/Stand Consultations Discharge Physical Examination Allergies: Coded Allergies: sertraline (Verified Allergy, Severe, RASH, SWELLING, 04/09/20) "FELT LOOPY" bupropion (Verified Allergy, Unknown, "CAUSED ME TO BANG MY HEAD ON THE WALL", 04/09/20) buspirone (Verified Allergy, Unknown, THROAT SWELLED, 04/09/20) cephalexin (Verified Allergy, Unknown, HIVES, 04/09/20) codeine (Verified Allergy, Unknown, 04/09/20) sulfamethoxazole (Verified Adverse Reaction, Unknown, Itching, 04/09/20) trimethoprim (Verified Adverse Reaction, Unknown, Itching, 04/09/20) Vitals & I&Os Vital Sign - Last 12Hours Date Time Temp Pulse Resp B/P (MAP) Pulse Ox O2 Delivery O2 Flow Rate FiO2 10/01/21 09:00 98 Room Air 10/01/21 08:00 35.4 98 16 130/74 09/30/21 10:45 2.00 Intake and Output 09/30/21 23:59 Intake Total 1200 ml Balance 1200 ml Hospital Course See final discharge diagnosis. Discharge Instructions to patient/family Please see electronic discharge instructions given to patient. Discharge Medications Reviewed and agree with Discharge Medication list on patient's Discharge Instruction sheet ORI LIAO MD Oct 01, 2021 12:12
[2021-10-01] MEDS ORDERED: GUAI600T43 PO (12:15)
--- NOTE | 2021-10-01 12:16 | Discharge Summary ---
Discharge [facility] Reconcile Patient Problems Problems Reviewed?: Yes Discharge Medications New, Converted or Re-Newed RX: Transmitted to Pharmacy New Medications: Guaifenesin (Mucinex) 600 Mg Tab.er.12h 600 MG PO BID, #10 TAB Continued Medications: Ascorbic Acid (Vitamin C) 500 Mg Powd.pack 500 MG PO DAILY, EACH Aspirin (Aspirin EC) 81 Mg Tablet.dr 81 MG PO DAILY, TAB Cetirizine HCl (Cetirizine HCl) 10 Mg Tablet 10 MG PO DAILY PRN for ALLERGIES, TAB Chlorhexidine Gluconate (Chlorhexidine Gluconate) 473 Ml Mouthwash 15 ML PO DAILY Fluticasone Propionate (Fluticasone Propionate) 16 Gm [place].susp 1 SPRAY NSEACH DAILY PRN for ALLERGIES Hydrochlorothiazide (Hydrochlorothiazide) 25 Mg Tablet 25 MG PO DAILY PRN for FLUID RETENTION Hydroxyzine HCl (Hydroxyzine HCl) 25 Mg Tablet 25 MG PO TID PRN for ANXIETY Ibuprofen (Ibuprofen) 600 Mg Tablet 600 MG PO Q8H PRN for PAIN-MILD (1-4) Insulin Regular, Human (Humulin R U-500 Kwikpen) 500 Unit/1 Ml Insuln.pen 150 UNITS SC BID Pantoprazole Sodium (Pantoprazole Sodium) 40 Mg Tablet.dr 40 MG PO DAILY, TAB Pregabalin (Pregabalin) 150 Mg Capsule 150 MG PO DAILY, CAP Discontinued Medications: Acetaminophen with Codeine (Acetaminophen-Cod #3 Tablet) 1 Each Tablet 1 EACH PO DAILY PRN for PAIN-MILD (1-4) Amoxicillin (Amoxicillin) 500 Mg Capsule 500 MG PO BID FILLED 09-15-2021 #30/15 DAY SUPPLY Patient Instructions Goal/Follow Up Appt: F/u with Dr Connolly 1-2 weeks Activity & Diet Discharge Diet: ADA Diet Activity as Tolerated: Yes ORI LIAO MD Oct 01, 2021 12:16
== END 2021-10-01 15:55 | disposition home or self-care (01) | DRG 638 ==
LOC: EDUNIT# 07:10 → ER 07:12 → ICU 10:15 → 4TH 09-30 14:30
PROVIDERS: ADMIT Family Medicine; ATTEND Family Medicine
DX: E11.10 Type 2 diabetes mellitus with ketoacidosis without coma (principal); Z68.42 Body mass index [BMI] 45.0-49.9, adult; I10 Essential (primary) hypertension; E78.00 Pure hypercholesterolemia, unspecified; K21.00 Gastro-esophageal reflux disease with esophagitis, without bleeding; E66.01 Morbid (severe) obesity due to excess calories; F90.9 Attention-deficit hyperactivity disorder, unspecified type; F41.9 Anxiety disorder, unspecified; F32.9 Major depressive disorder, single episode, unspecified; E11.40 Type 2 diabetes mellitus with diabetic neuropathy, unspecified; E78.5 Hyperlipidemia, unspecified; K57.90 Diverticulosis of intestine, part unspecified, without perforation or abscess without bleeding; J02.9 Acute pharyngitis, unspecified; R05.9 Cough, unspecified; G47.33 Obstructive sleep apnea (adult) (pediatric); Z79.84 Long term (current) use of oral hypoglycemic drugs; Z79.4 Long term (current) use of insulin; Z79.899 Other long term (current) drug therapy; Z91.14 Patient's other noncompliance with medication regimen
CPT/HCPCS: 36410; 36415; 71045; 76937; 80048; 80053; 81000; 82010; 82805; 82947; 83036; 83735; 84100; 84484; 85025; 85027; 86141; 87081; 93005; 94760

== ENCOUNTER 2022-01-08 02:37 | Emergency (ER) | payer MEDICARE, MEDICAID ==
[~2022-01-08 02:37] MED LIST changes: +ACET1TAB43 PO; +ASCO500P18 PO; +FLUT16SP22 NSEACH; +GUAI600T43 PO; +HYDR-700 PO; +INSU500I SC; +NFCHLORHGL PO
[2022-01-08 03:24] LABS: BASOPHILS % (AUTO) 0 % (0-10); EOSINOPHILS # (AUTO) 0.1 10^3/uL (0.0-0.3); EOSINOPHILS % (AUTO) 2 % (0-10); HEMATOCRIT 42 % (40-54); HEMOGLOBIN 14.6 g/dL (13.3-17.7); LYMPHOCYTES # (AUTO) 2.4 10^3/uL (1.0-4.0); LYMPHOCYTES % (AUTO) 35 % (12-44); MEAN CORPUSCULAR HEMOGLOBIN 30 pg (25-34); MEAN CORPUSCULAR HGB CONC 35 g/dL (32-36); MEAN CORPUSCULAR VOLUME 86 fL (80-99); MEAN PLATELET VOLUME 10.8 fL (9.0-12.2); MONOCYTES # (AUTO) 0.6 10^3/uL (0.0-1.0); MONOCYTES % (AUTO) 9 % (0-12); NEUTROPHILS # (AUTO) 3.6 10^3/uL (1.8-7.8); NEUTROPHILS % (AUTO) 53 % (42-75); PLATELET COUNT 177 10^3/uL (130-400); WHITE BLOOD COUNT 6.8 10^3/uL (4.3-11.0)
[2022-01-08 03:32] LABS: ALBUMIN 3.7 GM/DL (3.2-4.5)
[2022-01-08 03:33] LABS: CHLORIDE 107 MMOL/L (98-107); POTASSIUM 4.2 MMOL/L (3.6-5.0); SODIUM 140 MMOL/L (135-145)
[2022-01-08 03:34] LABS: AMYLASE 63 U/L (25-125); CALCIUM 9.8 MG/DL (8.5-10.1)
[2022-01-08 03:35] LABS: GLUCOSE 212 MG/DL (70-105); TOTAL PROTEIN 6.2 GM/DL (6.4-8.2)
[2022-01-08 03:36] LABS: CARBON DIOXIDE 19 MMOL/L (21-32)
[2022-01-08 03:37] LABS: BILIRUBIN,TOTAL 0.4 MG/DL (0.1-1.0)
[2022-01-08 03:38] LABS: ALKALINE PHOSPHATASE 62 U/L (40-136)
[2022-01-08 03:39] LABS: CREATININE SERUM 0.86 MG/DL (0.60-1.30); GFR ESTIMATED 110
[2022-01-08 03:40] LABS: BUN/CREATININE RATIO 26
[2022-01-08 03:41] LABS: ALANINE AMINOTRANSFERASE 65 U/L (0-55); MAGNESIUM 1.9 MG/DL (1.6-2.4)
[2022-01-08 03:42] LABS: LIPASE 24 U/L (8-78)
[2022-01-08 03:51] LABS: BILIRUBIN,URINE NEGATIVE (NEGATIVE); CLARITY,URINE CLEAR; COLOR,URINE YELLOW; GLUCOSE, URINE (UA) 3+ (NEGATIVE); KETONES,URINE TRACE (NEGATIVE); LEUKOCYTE ESTERASE ,URINE NEGATIVE (NEGATIVE); NITRITE,URINE NEGATIVE (NEGATIVE); PROTEIN,URINE NEGATIVE (NEGATIVE)
[2022-01-08] MEDS ORDERED: ACETAMINOPHEN 500 MG TAB (TYLENOL) PO ONE (04:00)
[2022-01-08] MEDS ORDERED: IBUPROFEN 800 MG (MOTRIN) TAB PO ONE (04:00)
[2022-01-08 04:01] LABS: AMPHETAMINE SCREEN, URINE NEGATIVE (NEGATIVE); BARBITURATE SCREEN URINE NEGATIVE (NEGATIVE); BENZODIAZEPINES SCREEN URINE NEGATIVE (NEGATIVE); CANNABINOID SCREEN, URINE POSITIVE (NEGATIVE); COCAINE SCREEN URINE NEGATIVE (NEGATIVE); METHADONE STAT NEGATIVE (NEGATIVE); METHAMPHETAMINE SCREEN URINE S NEGATIVE (NEGATIVE); OPIATE SCREEN URINE NEGATIVE (NEGATIVE); OXYCODONE STAT NEGATIVE (NEGATIVE); PROPOXYPHENE STAT NEGATIVE (NEGATIVE); TRICYCLIC ANTIDEPRESSANTS SCRE NEGATIVE (NEGATIVE)
[2022-01-08 04:02] LABS: BACTERIA,URINE NEGATIVE /HPF; SQUAMOUS EPITHELIAL CELL,UR 0-2 /HPF
--- NOTE | 2022-01-08 04:35 | ED General ---
General Chief Complaint: Dizziness/Syncope Stated Complaint: ARM PAIN,VITALE Nursing Triage Note: TO ED [facility]IA [facility] TO ROOM 3 WITH C/O OF BEING "DIZZY ALL GET OUT". Source of Information: Patient History of Present Illness Date Seen by Provider: Jan 08, 2022 Allergies and Home Medications Allergies Coded Allergies: sertraline (Verified Allergy, Severe, RASH, SWELLING, 04/09/20) "FELT LOOPY" bupropion (Verified Allergy, Unknown, "CAUSED ME TO BANG MY HEAD ON THE WALL", 04/09/20) buspirone (Verified Allergy, Unknown, THROAT SWELLED, 04/09/20) cephalexin (Verified Allergy, Unknown, HIVES, 04/09/20) codeine (Verified Allergy, Unknown, 04/09/20) sulfamethoxazole (Verified Adverse Reaction, Unknown, Itching, 04/09/20) trimethoprim (Verified Adverse Reaction, Unknown, Itching, 04/09/20) Patient Home Medication List Ascorbic Acid (Vitamin C) 500 Mg Powd.pack, 500 MG PO DAILY, (Reported) Entered as Reported by: SABAS SILVA on 09/29/21 1417 Aspirin (Aspirin EC) 81 Mg Tablet.dr, 81 MG PO DAILY, (Reported) Entered as Reported by: SABAS SILVA on 09/29/21 1415 Cetirizine HCl (Cetirizine HCl) 10 Mg Tablet, 10 MG PO DAILY PRN for ALLERGIES, (Reported) Entered as Reported by: SABAS SILVA on 09/29/21 1416 Chlorhexidine Gluconate (Chlorhexidine Gluconate) 473 Ml Mouthwash, 15 ML PO DAILY, (Reported) Entered as Reported by: SABAS SILVA on 09/29/21 1412 Fluticasone Propionate (Fluticasone Propionate) 16 Gm [place].susp, 1 SPRAY NSEACH DAILY PRN for ALLERGIES, (Reported) Entered as Reported by: SABAS SILVA on 09/29/21 1412 Guaifenesin (Mucinex) 600 Mg Tab.er.12h, 600 MG PO BID Prescribed by: ORI LIAO on 10/01/21 1215 Hydrochlorothiazide (Hydrochlorothiazide) 25 Mg Tablet, 25 MG PO DAILY PRN for FLUID RETENTION, (Reported) Entered as Reported by: SABAS SILVA on 09/29/21 1415 Hydroxyzine HCl (Hydroxyzine HCl) 25 Mg Tablet, 25 MG PO TID PRN for ANXIETY, (Reported) Entered as Reported by: SABAS SILVA on 09/29/21 1415 Ibuprofen (Ibuprofen) 600 Mg Tablet, 600 MG PO Q8H PRN for PAIN-MILD (1-4), (Reported) Entered as Reported by: SABAS SILVA on 09/29/21 1412 Insulin Regular, Human (Humulin R U-500 Kwikpen) 500 Unit/1 Ml Insuln.pen, 150 UNITS SC BID, (Reported) Entered as Reported by: SABAS SILVA on 09/29/21 1412 Pantoprazole Sodium (Pantoprazole Sodium) 40 Mg Tablet.dr, 40 MG PO DAILY, (Reported) Entered as Reported by: TRISTON BETH on 04/09/20 1431 Pregabalin (Pregabalin) 150 Mg Capsule, 150 MG PO DAILY, (Reported) Entered as Reported by: ZACHARY HATCH on 12/04/20 1538 Past Hogsjjx-Ixykyh-Xgetds Hx Patient Social History Tobacco Use?: Yes Use of E-Cig and/or Vaping dev: Yes E-Cig or Vaping type used: Nicotine Substance use?: Yes Substance type: Marijuana Alcohol Use?: Yes Alcohol Frequency: Rarely Immunizations Up To Date Tetanus Booster (TDap): More than 5yrs PED Vaccines UTD: No First/Initial COVID19 Vaccinat: NO Second COVID19 Vaccination Sundar: NO Third COVID19 Vaccination Date: NO Seasonal Allergies Seasonal Allergies: Yes Past Medical History Surgeries: Yes (HYPOGONADISM SURGERY INFANT; ENDOSCOPIES) Gallbladder, Testicular Respiratory: Yes Asthma Currently Using CPAP: No Currently Using BIPAP: No Cardiac: Yes High Cholesterol, Hypertension, Palpitations Neurological: Yes Neuropathy Reproductive Disorders: Yes (HYPOGONADISM sx as an infant) Sexually Transmitted Disease: No HIV/AIDS: No Genitourinary: No Gastrointestinal: Yes (ENDOSCOPIES) Gastroesophageal Reflux, Diverticulosis, Esophagitis Musculoskeletal: Yes Arthritis Endocrine: Yes (MORBID OBESITY; DM TYPE 2 (INSULIN AND PO)) Diabetes, Insulin dep HEENT: Yes (GLASSES) Loss of Vision: Denies Hearing Impairment: Denies Cancer: No Psychosocial: Yes ADD/ADHD, Anxiety, Depression Integumentary: No Blood Disorders: No Adverse Reaction/Blood Tranf: No (N/A) Family Medical History Arthritis 19 MOTHER Congenital heart disease Diabetes mellitus 19 FATHER 19 MOTHER FH: brain aneurysm 19 FATHER (cause of - 09/13/2015) Glaucoma 19 FATHER Hypertension 19 FATHER 19 MOTHER Psychosocial problem 19 MOTHER (depression) No Pertinent Family Hx Physical Exam Vital Signs Vital Signs - First Documented 01/08/22 02:39 Temp 36.9 Pulse 94 Resp 18 B/P (MAP) 171/94 (119) Pulse Ox 94 O2 Delivery Room Air Capillary Refill : Less Than 3 Seconds Height, Weight, BMI Height: 5'11.00" Weight: 324lbs. 0.0oz. 146.665197qu; 51.56 BMI Method:Stated Progress/Results/Core Measures Suspected Sepsis SIRS Temperature: Pulse: 94 Respiratory Rate: 18 Laboratory Tests 01/08/22 03:20: White Blood Count 6.8 Blood Pressure 171 /94 Mean: 119 Laboratory Tests 01/08/22 03:20: Creatinine 0.86, Platelet Count 177, Total Bilirubin 0.4 Results/Orders Lab Results Laboratory Tests Test 01/08/22 03:20 01/08/22 03:45 01/08/22 04:19 Range/Units White Blood Count 6.8 4.3-11.0 10^3/uL Red Blood Count 4.83 4.30-5.52 10^6/uL Hemoglobin 14.6 13.3-17.7 g/dL Hematocrit 42 40-54 % Mean Corpuscular Volume 86 80-99 fL Mean Corpuscular Hemoglobin 30 25-34 pg Mean Corpuscular Hemoglobin Concent 35 32-36 g/dL Red Cell Distribution Width 12.2 10.0-14.5 % Platelet Count 177 130-400 10^3/uL Mean Platelet Volume 10.8 9.0-12.2 fL Immature Granulocyte % (Auto) 1 % Neutrophils (%) (Auto) 53 42-75 % Lymphocytes (%) (Auto) 35 12-44 % Monocytes (%) (Auto) 9 0-12 % Eosinophils (%) (Auto) 2 0-10 % Basophils (%) (Auto) 0 0-10 % Neutrophils # (Auto) 3.6 1.8-7.8 10^3/uL Lymphocytes # (Auto) 2.4 1.0-4.0 10^3/uL Monocytes # (Auto) 0.6 0.0-1.0 10^3/uL Eosinophils # (Auto) 0.1 0.0-0.3 10^3/uL Basophils # (Auto) 0.0 0.0-0.1 10^3/uL Immature Granulocyte # (Auto) 0.1 0.0-0.1 10^3/uL Sodium Level 140 135-145 MMOL/L Potassium Level 4.2 3.6-5.0 MMOL/L Chloride Level 107 98-107 MMOL/L Carbon Dioxide Level 19 L 21-32 MMOL/L Anion Gap 14 5-14 MMOL/L Blood Urea Nitrogen 22 H 7-18 MG/DL Creatinine 0.86 0.60-1.30 MG/DL Estimat Glomerular Filtration Rate 110 BUN/Creatinine Ratio 26 Glucose Level 212 H 70-105 MG/DL Calcium Level 9.8 8.5-10.1 MG/DL Corrected Calcium 10.0 8.5-10.1 MG/DL Magnesium Level 1.9 1.6-2.4 MG/DL Total Bilirubin 0.4 0.1-1.0 MG/DL Aspartate Amino Transf (AST/SGOT) 34 5-34 U/L Alanine Aminotransferase (ALT/SGPT) 65 H 0-55 U/L Alkaline Phosphatase 62 40-136 U/L Total Protein 6.2 L 6.4-8.2 GM/DL Albumin 3.7 3.2-4.5 GM/DL Amylase Level 63 25-125 U/L Lipase 24 8-78 U/L Serum Alcohol < 10 <10 MG/DL Urine Color YELLOW Urine Clarity CLEAR Urine pH 6.0 5-9 Urine Specific [place] 1.020 1.016-1.022 Urine Protein NEGATIVE NEGATIVE Urine Glucose (UA) 3+ H NEGATIVE Urine Ketones TRACE H NEGATIVE Urine Nitrite NEGATIVE NEGATIVE Urine Bilirubin NEGATIVE NEGATIVE Urine Urobilinogen 0.2 < = 1.0 MG/DL Urine Leukocyte Esterase NEGATIVE NEGATIVE Urine RBC (Auto) NEGATIVE NEGATIVE Urine RBC NONE /HPF Urine WBC NONE /HPF Urine Squamous Epithelial Cells 0-2 /HPF Urine Crystals NONE /LPF Urine Bacteria NEGATIVE /HPF Urine Casts NONE /LPF Urine Mucus NEGATIVE /LPF Urine Culture Indicated NO Urine Opiates Screen NEGATIVE NEGATIVE Urine Oxycodone Screen NEGATIVE NEGATIVE Urine Methadone Screen NEGATIVE NEGATIVE Urine Propoxyphene Screen NEGATIVE NEGATIVE Urine Barbiturates Screen NEGATIVE NEGATIVE Ur Tricyclic Antidepressants Screen NEGATIVE NEGATIVE Urine Phencyclidine Screen NEGATIVE NEGATIVE Urine Amphetamines Screen NEGATIVE NEGATIVE Urine Methamphetamines Screen NEGATIVE NEGATIVE Urine Benzodiazepines Screen NEGATIVE NEGATIVE Urine Cocaine Screen NEGATIVE NEGATIVE Urine Cannabinoids Screen POSITIVE H NEGATIVE Influenza Type A (RT-PCR) Not Detected Not Detecte Influenza Type B (RT-PCR) Not Detected Not Detecte SARS-CoV-2 RNA (RT-PCR) Not Detected Not Detecte My Orders Orders - TRISTEN TUCKER DO Ed Iv/Invasive Line Start (01/08/22 02:48) Monitor-Rhythm Ecg Trace Only (01/08/22 02:48) Alcohol (01/08/22 02:48) Amylase (01/08/22 02:48) Cbc With Automated Diff (01/08/22 02:48) Comprehensive Metabolic Panel (01/08/22 02:48) Drug Screen Stat (Urine) (01/08/22 02:48) Lipase (01/08/22 02:48) Magnesium (01/08/22 02:48) Ua Culture If Indicated (01/08/22 02:48) Covid 19 Inhouse Test (01/08/22 02:48) Influenza A And B By Pcr (01/08/22 02:48) Isolation Central Supply Req (01/08/22 02:48) Acetaminophen Tablet (Tylenol Tablet) (01/08/22 04:00) Ibuprofen Tablet (Motrin Tablet) (01/08/22 04:00) Medications Given in ED Current Medications Medications Dose Ordered Sig/Nikia Route Start Time Stop Time Status Last Admin Dose Admin Acetaminophen 1,000 mg ONCE ONCE PO 01/08/22 04:00 01/08/22 04:01 DC 01/08/22 04:12 1,000 MG Ibuprofen 800 mg ONCE ONCE PO 01/08/22 04:00 01/08/22 04:01 DC 01/08/22 04:12 800 MG Vital Signs/I&O 01/08/22 01/08/22 02:39 02:39 Temp 36.9 Pulse 94 Resp 18 B/P (MAP) 171/94 (119) Pulse Ox 94 O2 Delivery Room Air Room Air Capillary Refill : Less Than 3 Seconds Blood Pressure Mean: 119 Departure Impression Primary Impression: Dizziness Additional Impressions: Poorly controlled diabetes mellitus Poorly controlled blood pressure Headache Disposition: 01 HOME, SELF-CARE Condition: Stable Departure-Patient Inst. Decision time for Depature: 05:00 Referrals: [facility] (PCP/Family) Primary Care Physician Patient Instructions: Dizziness, Adult ED, Headache, Adult ED, High Blood Sugar, Adult ED Add. Discharge Instructions: HOME, REST LOTS OF CLEAR LIQUIDS FOLLOW A LOW CARB, HIGH PROTEIN DIET TAKE YOUR MEDICATIONS PRESCRIBED FOLLOW UP WITH YOUR DR IN 1-2 DAYS IF NO BETTER, RETURN TO ER IF WORSE All discharge instructions reviewed with patient and/or family. Voiced understanding. Scripts Meclizine HCl (Meclizine HCl) 25 Mg Tablet 50 MG PO Q6 PRN for DIZZINESS, #15 TAB Prov: TRISTEN TUCKER DO 01/08/22 Ondansetron (Ondansetron Odt) 4 Mg Tab.rapdis 4 MG PO Q4H for Nausea/Vomiting, #10 TAB Prov: TRISTEN TUCKER DO 01/08/22 Butalb/Acetaminophen/Caffeine (Esgic 50-325-40 mg Tablet) 50 Mg-325 Mg-40 Mg Tablet 1-2 EACH PO Q6, #12 TAB Prov: TRISTEN TUCKER DO 01/08/22 TRISTEN TUCKER DO Jan 08, 2022 04:35
[2022-01-08] MEDS ORDERED: BUTA-249 PO (05:05)
[2022-01-08] MEDS ORDERED: ONDA4TAB11 PO (05:05)
[2022-01-08] MEDS ORDERED: MECL-149 PO (05:05)
[2022-01-08 05:20] VITALS: BP 123/57
== END 2022-01-08 05:21 | disposition home or self-care (01) ==
LOC: EDUNIT# 02:37 → ER 02:38
DX: R42 Dizziness and giddiness (principal); R51.9 Headache, unspecified; E11.9 Type 2 diabetes mellitus 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; E66.01 Morbid (severe) obesity due to excess calories; Z68.43 Body mass index [BMI] 50.0-59.9, adult; Z20.822 Contact with and (suspected) exposure to COVID-19; Z79.4 Long term (current) use of insulin
CPT/HCPCS: 80053; 80306; 81000; 82150; 83690; 83735; 85025; 87636; 93041; 99284; G0480; 36415; 80320

== ENCOUNTER → 2022-01-12 | Outpatient (CLI) | payer MEDICARE, MEDICAID ==
[~2022-01-12] MED LIST changes: +BARIUM for suspension 96% w/w (Vanilla Silq Medium Density) PO ONE; +BUTA-249 PO; +MECL-149 PO
--- NOTE | 2022-01-12 11:26 | Diagnostic Imaging Report ---
INDICATION: Lump in the throat. TECHNIQUE: The patient ingested effervescent crystals as well as thin and thick barium and imaging over the esophagus was performed in multiple obliquities. A total of 0.8 minutes of fluoroscopic time was utilized. FINDINGS: The preliminary radiograph over the chest is unremarkable. The esophagus has a smooth contour. No mass or stricture is identified. No hiatal hernia or gastroesophageal reflux was demonstrated. IMPRESSION: Unremarkable esophagram. Dictated by: Dictated on workstation # [id number]
== END ==
LOC: RAD 09:16
PROVIDERS: ATTEND Pediatrics
DX: R09.89 Other specified symptoms and signs involving the circulatory and respiratory systems (principal); R22.1 Localized swelling, mass and lump, neck
CPT/HCPCS: 74220

== ENCOUNTER 2022-01-15 20:13 | Outpatient (CLI) | payer MEDICARE, MEDICAID ==
[~2022-01-15 20:13] MED LIST changes: +ACET-11 PO; -ACET1TAB43 PO; -BARIUM for suspension 96% w/w (Vanilla Silq Medium Density) PO ONE
== END 2022-01-16 06:00 | disposition home or self-care (01) ==
LOC: SLEEP 20:13
PROVIDERS: ATTEND Pediatrics
DX: G47.33 Obstructive sleep apnea (adult) (pediatric) (principal)
CPT/HCPCS: 95810

== ENCOUNTER 2022-03-28 04:28 | Emergency (ER) | payer MEDICARE, MEDICAID ==
[~2022-03-28] VITALS: Ht 180 cm; Wt 159.0 kg
[2022-03-28 04:40] VITALS: BP 141/98
[2022-03-28] MEDS ORDERED: LACTATED RINGERS 1,000 ML IV STA (04:50)
--- NOTE | 2022-03-28 04:55 | ED Abdominal Pain ---
General Chief Complaint: Abdominal/GI Problems Stated Complaint: ABDOMINAL PAIN Nursing Triage Note: intermittant abdominal pain radiating to left testicle x3-4 days. nausea x2hrs. Source of Information: Patient Exam Limitations: No Limitations (JUDAH CULLEN MD) History of Present Illness Date Seen by Provider: Mar 28, 2022 Time Seen by Provider: 04:30 Initial Comments 41-year-old male coming in due to lower abdominal pain on the left side radiating to his testicle is been going on for 3 to 4 days. Past couple of hours he has had nausea associated with it and the pain is worsened. Because of pain moderate, sharp, took Tylenol which helped somewhat. He has had pain like this before and he says it felt similar to diverticulitis. Denies any history of kidney stones. Denies any swelling in his scrotum. Denies any vomiting, fever, chills, weakness, numbness, diarrhea, rash, chest pain, shortness of breath, or any other concerns. (JUDAH CULLEN MD) Allergies and Home Medications Allergies Coded Allergies: sertraline (Verified Allergy, Severe, RASH, SWELLING, 04/09/20) "FELT LOOPY" bupropion (Verified Allergy, Unknown, "CAUSED ME TO BANG MY HEAD ON THE WALL", 04/09/20) buspirone (Verified Allergy, Unknown, THROAT SWELLED, 04/09/20) cephalexin (Verified Allergy, Unknown, HIVES, 04/09/20) codeine (Verified Allergy, Unknown, 04/09/20) sulfamethoxazole (Verified Adverse Reaction, Unknown, Itching, 04/09/20) trimethoprim (Verified Adverse Reaction, Unknown, Itching, 04/09/20) Patient Home Medication List Home Medication List Reviewed: Yes (JUDAH CULLEN MD) Ascorbic Acid (Vitamin C) 500 Mg Powd.pack, 500 MG PO DAILY, (Reported) Entered as Reported by: SABAS SILVA on 09/29/21 141 Aspirin (Aspirin EC) 81 Mg Tablet.dr, 81 MG PO DAILY, (Reported) Entered as Reported by: SABAS SILVA on 09/29/21 1415 Butalb/Acetaminophen/Caffeine (Esgic 50-325-40 mg Tablet) 50 Mg-325 Mg-40 Mg Tablet, 1-2 EACH PO Q6 Prescribed by: TRISTEN TUCKER on 01/08/22 0505 Cetirizine HCl (Cetirizine HCl) 10 Mg Tablet, 10 MG PO DAILY PRN for ALLERGIES, (Reported) Entered as Reported by: SABAS SILVA on 09/29/21 141 Chlorhexidine Gluconate (Chlorhexidine Gluconate) 473 Ml Mouthwash, 15 ML PO DAILY, (Reported) Entered as Reported by: SABAS SILVA on 09/29/21 141 Fluticasone Propionate (Fluticasone Propionate) 16 Gm Wheelwright.susp, 1 SPRAY NSEACH DAILY PRN for ALLERGIES, (Reported) Entered as Reported by: SABAS SILVA on 09/29/21 141 Guaifenesin (Mucinex) 600 Mg Tab.er.12h, 600 MG PO BID Prescribed by: ORI LIAO on 10/01/21 1215 Hydrochlorothiazide (Hydrochlorothiazide) 25 Mg Tablet, 25 MG PO DAILY PRN for FLUID RETENTION, (Reported) Entered as Reported by: SABAS SILVA on 09/29/21 141 Hydroxyzine HCl (Hydroxyzine HCl) 25 Mg Tablet, 25 MG PO TID PRN for ANXIETY, (Reported) Entered as Reported by: SABAS SILVA on 09/29/21 141 Ibuprofen (Ibuprofen) 600 Mg Tablet, 600 MG PO Q8H PRN for PAIN-MILD (1-4), (Reported) Entered as Reported by: SABAS SILVA on 09/29/21 141 Insulin Regular, Human (Humulin R U-500 Kwikpen) 500 Unit/1 Ml Insuln.pen, 150 UNITS SC BID, (Reported) Entered as Reported by: SABAS SILVA on 09/29/21 141 Meclizine HCl (Meclizine HCl) 25 Mg Tablet, 50 MG PO Q6 PRN for DIZZINESS Prescribed by: TRISTEN TUCKER on 01/08/22 0505 Ondansetron (Ondansetron Odt) 4 Mg Tab.rapdis, 4 MG PO Q4H Prescribed by: TRISTEN TUCKER on 01/08/22 0505 Pantoprazole Sodium (Pantoprazole Sodium) 40 Mg Tablet.dr, 40 MG PO DAILY, (Reported) Entered as Reported by: TRISTON BETH on 7/21/20 1431 Pregabalin (Pregabalin) 150 Mg Capsule, 150 MG PO DAILY, (Reported) Entered as Reported by: ZACHARY HATCH on 12/04/20 1538 Tramadol HCl (Ultram) 50 Mg Tablet, 50 MG PO Q6H PRN for PAIN-BREAKTHROUGH Prescribed by: MAMIE MIDDLETON on 03/28/22 0702 Review of Systems Review of Systems Constitutional: No fever EENTM: No Blurred Vision Respiratory: Denies Cough Cardiovascular: Denies Chest Pain Gastrointestinal: Abdominal Pain Genitourinary: No Symptoms Reported Musculoskeletal: no symptoms reported Skin: no symptoms reported Psychiatric/Neurological: No Symptoms Reported Endocrine: No Symptoms Reported Hematologic/Lymphatic: No Symptoms Reported (JUDAH CULLEN MD) All Other Systems Reviewed Negative Unless Noted: Yes (JUDAH CULLEN MD) Past Jhvbrwt-[id number]-[id number] Hx Patient Social History Tobacco Use?: No Substance use?: No Alcohol Use?: No Pt feels they are or have been: No (JUDAH CULLEN MD) Immunizations Up To Date Tetanus Booster (TDap): More than 5yrs PED Vaccines UTD: No First/Initial COVID19 Vaccinat: NO Second COVID19 Vaccination Sundar: NO Third COVID19 Vaccination Date: NO (JUDAH CULLEN MD) Seasonal Allergies Seasonal Allergies: Yes (JUDAH CULLEN MD) Past Medical History Surgery/Hospitalization HX: testicular, cholecystectomy hypogonadism, asthma, high cholesterol, htn, gerd, neuropathy, obesity, iddm, adhd, anx/dep, Surgeries: Yes (HYPOGONADISM SURGERY INFANT; ENDOSCOPIES) Gallbladder, Testicular Respiratory: Yes Asthma Currently Using CPAP: No Currently Using BIPAP: No Cardiac: Yes High Cholesterol, Hypertension, Palpitations Neurological: Yes Neuropathy Reproductive Disorders: Yes (HYPOGONADISM sx as an infant) Sexually Transmitted Disease: No HIV/AIDS: No Genitourinary: No Gastrointestinal: Yes (ENDOSCOPIES) Gastroesophageal Reflux, Diverticulosis, Esophagitis Musculoskeletal: Yes Arthritis Endocrine: Yes (MORBID OBESITY; DM TYPE 2 (INSULIN AND PO)) Diabetes, Insulin dep HEENT: Yes (GLASSES) Loss of Vision: Denies Hearing Impairment: Denies Cancer: No Psychosocial: Yes ADD/ADHD, Anxiety, Depression Integumentary: No Blood Disorders: No Adverse Reaction/Blood Tranf: No (N/A) (JUDAH CULLEN MD) Family Medical History Arthritis 19 MOTHER Congenital heart disease Diabetes mellitus 19 FATHER 19 MOTHER FH: brain aneurysm 19 FATHER (cause of - 09/13/2015) Glaucoma 19 FATHER Hypertension 19 FATHER 19 MOTHER Psychosocial problem 19 MOTHER (depression) No Pertinent Family Hx (JUDAH CULLEN MD) Physical Exam Vital Signs Vital Signs - First Documented 03/28/22 04:40 Temp 36.0 Pulse 109 Resp 18 B/P (MAP) 141/98 (112) Pulse Ox 95 O2 Delivery Room Air (MAMIE DUBOIS MD) Vital Signs Capillary Refill : Less Than 3 Seconds (JUDAH CULLEN MD) Height/Weight/BMI Height: 5'11.00" Weight: 324lbs. 0.0oz. 146.571045po; 49.00 BMI Method:Stated General Appearance: WD/WN, no apparent distress HEENT: PERRL/EOMI, normal ENT inspection, pharynx normal Neck: non-tender, full range of motion, supple, normal inspection Respiratory: chest non-tender, lungs clear, normal breath sounds, no respiratory distress, no accessory muscle use Cardiovascular: regular rate, rhythm, no edema, no murmur Gastrointestinal: normal bowel sounds, soft; No distended, No guarding, No rebound; tenderness Extremities: normal range of motion, non-tender, normal inspection, no pedal edema, no calf tenderness, normal capillary refill Back: normal inspection, no CVA tenderness Male: other (No testicular swelling or tenderness) Neurologic/Psychiatric: no motor/sensory deficits, alert, normal mood/affect Skin: normal color, warm/dry Lymphatic: no adenopathy (JUDAH CULLEN MD) Progress/Results/Core Measures Results/Orders Lab Results Laboratory Tests Test 03/28/22 04:57 Range/Units White Blood Count 10.0 4.3-11.0 10^3/uL Red Blood Count 5.45 4.30-5.52 10^6/uL Hemoglobin 16.1 13.3-17.7 g/dL Hematocrit 46 40-54 % Mean Corpuscular Volume 85 80-99 fL Mean Corpuscular Hemoglobin 30 25-34 pg Mean Corpuscular Hemoglobin Concent 35 32-36 g/dL Red Cell Distribution Width 12.6 10.0-14.5 % Platelet Count 215 130-400 10^3/uL Mean Platelet Volume 11.4 9.0-12.2 fL Immature Granulocyte % (Auto) 3 % Neutrophils (%) (Auto) 54 42-75 % Lymphocytes (%) (Auto) 35 12-44 % Monocytes (%) (Auto) 7 0-12 % Eosinophils (%) (Auto) 2 0-10 % Basophils (%) (Auto) 1 0-10 % Neutrophils # (Auto) 5.4 1.8-7.8 10^3/uL Lymphocytes # (Auto) 3.5 1.0-4.0 10^3/uL Monocytes # (Auto) 0.7 0.0-1.0 10^3/uL Eosinophils # (Auto) 0.2 0.0-0.3 10^3/uL Basophils # (Auto) 0.1 0.0-0.1 10^3/uL Immature Granulocyte # (Auto) 0.3 H 0.0-0.1 10^3/uL Sodium Level 132 L 135-145 MMOL/L Potassium Level 4.5 3.6-5.0 MMOL/L Chloride Level 101 98-107 MMOL/L Carbon Dioxide Level 13 L 21-32 MMOL/L Anion Gap 18 H 5-14 MMOL/L Blood Urea Nitrogen 23 H 7-18 MG/DL Creatinine 1.07 0.60-1.30 MG/DL Estimat Glomerular Filtration Rate 88 BUN/Creatinine Ratio 21 Glucose Level 331 H 70-105 MG/DL Calcium Level 9.9 8.5-10.1 MG/DL Corrected Calcium 9.6 8.5-10.1 MG/DL Total Bilirubin 0.7 0.1-1.0 MG/DL Aspartate Amino Transf (AST/SGOT) 41 H 5-34 U/L Alanine Aminotransferase (ALT/SGPT) 58 H 0-55 U/L Alkaline Phosphatase 82 40-136 U/L C-Reactive Protein High Sensitivity 1.27 H 0.00-0.50 MG/DL Total Protein 7.6 6.4-8.2 GM/DL Albumin 4.4 3.2-4.5 GM/DL Lipase 29 8-78 U/L (MAMIE DUBOIS MD) Medications Given in ED Current Medications Medications Dose Ordered Sig/Nikia Route Start Time Stop Time Status Last Admin Dose Admin Hyoscyamine Sulfate 0.125 mg ONCE ONCE PO 03/28/22 05:00 03/28/22 05:01 DC 03/28/22 04:57 0.125 MG Iohexol 100 ml ONCE ONCE IV 03/28/22 06:30 03/28/22 06:31 DC 03/28/22 06:21 100 ML Ketorolac Tromethamine 15 mg ONCE ONCE IVP 03/28/22 05:00 03/28/22 05:01 DC 03/28/22 04:57 15 MG Ondansetron HCl 4 mg ONCE ONCE IVP 03/28/22 05:00 03/28/22 05:01 DC 03/28/22 04:57 4 MG Sodium Chloride 100 ml ONCE ONCE IV 03/28/22 06:30 03/28/22 06:31 DC 03/28/22 06:21 80 ML (MAMIE DUBOIS MD) Vital Signs/I&O 03/28/22 04:40 Temp 36.0 Pulse 109 Resp 18 B/P (MAP) 141/98 (112) Pulse Ox 95 O2 Delivery Room Air (MAMIE DUBOIS MD) Blood Pressure Mean: 112 Progress Progress Note : Progress Note 41-year-old male with above history coming in due to lower abdominal pain. ABCs were intact and vitals are stable on presentation. Physical exam with lower abdominal tenderness. His scrotum is not tender, not swollen, and I do not appreciate any pathology. Very low suspicion for any thing such as torsion at this time. An IV was placed and basic labs were obtained. CT abdomen pelvis ordered to assess for appendicitis versus diverticulitis versus other etiology. Patient was signed out to the oncoming physician pending this work-up (JUDAH CULLEN MD) Progress Note : Time: 06:58 Progress Note Also informed with patient at shift change. CT scan report was reviewed. There were no major pathologies found to explain his pain. Patient was reexamined and found to have some mild tenderness in the left lower abdomen. Skin was also evaluated. No rashes were identified. He has a small wound with a scab on it with some localized irritation. However, there does not seem to be tenderness directly associated with this wound. Pain and tenderness seems to be more medial. Patient states this pain feels like prior episodes of diverticulitis. He does not have any diverticulitis evident on CT. I have advised clear liquid diet for at least the remainder of today. Tylenol was suggested for pain. He is requested a small quantity of tramadol for breakthrough pain which I will provide. See discharge instructions. (MAMIE DUBOIS MD) Diagnostic Imaging Diagonstic Imaging: CT Plain Films/CT/US/NM/MRI: abdomen, pelvis Comments CT report reviewed. See report below: NAME: [facility] REC#: [id number] PT STATUS: REG ER : 1980 PHYSICIAN: JUDAH CULLEN MD ADMIT DATE: 03/28/22/ER Draft Date of Exam:03/28/22 CT ABDOMEN/PELVIS W PROCEDURE: CT abdomen and pelvis with contrast. TECHNIQUE: Multiple contiguous axial images were obtained through the abdomen and pelvis after administration of intravenous contrast. Auto Exposure Controls were utilized during the CT exam to meet ALARA standards for radiation dose reduction. All CT scans use one or more of the following dose optimizing techniques: automated exposure control, MA and/or KvP adjustment based on patient size and exam type or iterative reconstruction. INDICATION: Lower abdominal pain. COMPARISON: Abdominal radiograph 11/15/2020. FINDINGS: Lung bases are clear. The liver, pancreas, spleen, adrenals, kidneys, collecting systems and bladder negative. Normal appendix. Cholecystectomy. No free intraperitoneal air or fluid. No lymphadenopathy. No evidence of bowel obstruction. Mild colonic diverticulosis without evidence of active diverticulitis. No acute osseous findings. IMPRESSION: 1. No acute CT findings in the abdomen or pelvis. 2. Mild colonic diverticulosis without evidence of active diverticulitis. 3. Cholecystectomy. Dictated on workstation # [id number] Dict: 03/28/2218 Trans: 03/28/22 0624 AMAURY [id number] Interpreted by: AKIN ANGULO MD (MAMIE DUBOIS MD) Departure Impression Primary Impression: Lower abdominal pain Disposition: 01 HOME, SELF-CARE Condition: Stable Departure-Patient Inst. Decision time for Depature: 06:59 (MAMIE DUBOIS MD) [place]: [facility] [place] Primary Care Physician ZACHARY LEVIN DO (Family) Primary Care Physician Patient Instructions: Abdominal Pain, Adult ED Add. Discharge Instructions: Adhere to a clear liquid diet for at least 24 hours. Then gradually advance diet with small quantities of bland food as tolerated. Please monitor your blood sugars very closely while you have this altered diet. Check your blood sugars at least 4 times a day and adjust insulin doses if necessary. For pain you may take Tylenol (acetaminophen) up to 1000 mg every 6 hours as needed. Use Ultram as prescribed for pain not controlled by Tylenol. Return to the emergency room if you have worsening symptoms despite following these instructions or if you develop new symptoms such as fever, vomiting, bloody stools, etc. Follow-up with your primary care provider next week if symptoms have not completely resolved. All discharge instructions reviewed with patient and/or family. Voiced understanding. Scripts Tramadol HCl (Ultram) 50 Mg Tablet 50 MG PO Q6H PRN for PAIN-BREAKTHROUGH, #8 TAB Prov: MAMIE DUBOIS MD 03/28/22 JUDAH CULLEN MD Mar 28, 2022 04:54 MAMIE DUBOIS MD Mar 28, 2022 06:50
[2022-03-28] MEDS ORDERED: KETOROLAC 30 MG/ML VIAL IVP ONE (05:00)
[2022-03-28] MEDS ORDERED: HYOSCYAMINE 0.125 MG (LEVSIN) TAB PO ONE (05:00)
[2022-03-28] MEDS ORDERED: ONDANSETRON 4 MG/2 ML (SDV) Z0FRAN IVP ONE (05:00)
[2022-03-28 05:10] LABS: BASOPHILS # (AUTO) 0.1 10^3/uL (0.0-0.1); BASOPHILS % (AUTO) 1 % (0-10); EOSINOPHILS # (AUTO) 0.2 10^3/uL (0.0-0.3); EOSINOPHILS % (AUTO) 2 % (0-10); HEMATOCRIT 46 % (40-54); HEMOGLOBIN 16.1 g/dL (13.3-17.7); LYMPHOCYTES # (AUTO) 3.5 10^3/uL (1.0-4.0); LYMPHOCYTES % (AUTO) 35 % (12-44); MEAN CORPUSCULAR HEMOGLOBIN 30 pg (25-34); MEAN CORPUSCULAR HGB CONC 35 g/dL (32-36); MEAN CORPUSCULAR VOLUME 85 fL (80-99); MEAN PLATELET VOLUME 11.4 fL (9.0-12.2); MONOCYTES # (AUTO) 0.7 10^3/uL (0.0-1.0); MONOCYTES % (AUTO) 7 % (0-12); NEUTROPHILS # (AUTO) 5.4 10^3/uL (1.8-7.8); NEUTROPHILS % (AUTO) 54 % (42-75); PLATELET COUNT 215 10^3/uL (130-400)
[2022-03-28 05:21] LABS: ALBUMIN 4.4 GM/DL (3.2-4.5)
[2022-03-28 05:22] LABS: POTASSIUM 4.5 MMOL/L (3.6-5.0)
[2022-03-28 05:23] LABS: CALCIUM 9.9 MG/DL (8.5-10.1)
[2022-03-28 05:24] LABS: TOTAL PROTEIN 7.6 GM/DL (6.4-8.2)
[2022-03-28 05:26] LABS: BILIRUBIN,TOTAL 0.7 MG/DL (0.1-1.0)
[2022-03-28 05:28] LABS: CREATININE SERUM 1.07 MG/DL (0.60-1.30)
[2022-03-28] MEDS ORDERED: inSUlin (REGULAR) HUMAN 1 UNIT/0.01 ML (CHARGE PER UNIT) IV STA (05:30)
--- NOTE | 2022-03-28 06:24 | Diagnostic Imaging Report ---
PROCEDURE: CT abdomen and pelvis with contrast. TECHNIQUE: Multiple contiguous axial images were obtained through the abdomen and pelvis after administration of intravenous contrast. Auto Exposure Controls were utilized during the CT exam to meet ALARA standards for radiation dose reduction. All CT scans use one or more of the following dose optimizing techniques: automated exposure control, MA and/or KvP adjustment based on patient size and exam type or iterative reconstruction. INDICATION: Lower abdominal pain. COMPARISON: Abdominal radiograph 11/15/2020. FINDINGS: Lung bases are clear. The liver, pancreas, spleen, adrenals, kidneys, collecting systems and bladder negative. Normal appendix. Cholecystectomy. No free intraperitoneal air or fluid. No lymphadenopathy. No evidence of bowel obstruction. Mild colonic diverticulosis without evidence of active diverticulitis. No acute osseous findings. IMPRESSION: 1. No acute CT findings in the abdomen or pelvis. 2. Mild colonic diverticulosis without evidence of active diverticulitis. 3. Cholecystectomy. Dictated by: Dictated on workstation # [id number]
[2022-03-28] MEDS ORDERED: IOHEXOL 350 MG/ML 100 ML (OMNIPAQUE 350) VIAL IV ONE (06:30)
[2022-03-28] MEDS ORDERED: HOLD METFORMIN - RECEIVED CONTRAST 20 ML VIAL IV SCH (06:30)
[2022-03-28] MEDS ORDERED: NS 100 ML (IVPB) BAG IV ONE (06:30)
[2022-03-28] MEDS ORDERED: TRAM-42 PO (07:02)
== END 2022-03-28 07:18 | disposition home or self-care (01) ==
LOC: EDUNIT# 04:28 → ER 04:29
DX: R10.32 Left lower quadrant pain (principal); E11.40 Type 2 diabetes mellitus with diabetic neuropathy, unspecified; E66.01 Morbid (severe) obesity due to excess calories; Z68.42 Body mass index [BMI] 45.0-49.9, adult; Z79.4 Long term (current) use of insulin; Z87.19 Personal history of other diseases of the digestive system; Z90.49 Acquired absence of other specified parts of digestive tract
CPT/HCPCS: 36415; 74177; 80053; 83690; 85025; 86141

== ENCOUNTER → 2022-04-06 | Outpatient (CLI) | payer MEDICARE, MEDICAID ==
[~2022-04-06] MED LIST changes: +TRAM-42 PO
== END ==
LOC: CARD 13:15
PROVIDERS: ATTEND Pediatrics
DX: I51.7 Cardiomegaly (principal)
CPT/HCPCS: 93306

== ENCOUNTER 2022-06-09 23:28 | Emergency (ER) | payer MEDICARE, MEDICAID ==
[~2022-06-09] VITALS: Ht 177.8 cm; Wt 154.2 kg
[~2022-06-09 23:28] MED LIST changes: +LEVO750T PO; -LEVO750T39 PO; -NYST15CR TOP; +NYST15CR35 TOP
--- NOTE | 2022-06-09 23:39 | ED General ---
General Stated Complaint: COVID+,VITALE,EXHAUSTION,NAUSEA,CP,RT SIDE PAIN Source of Information: Patient Exam Limitations: No Limitations History of Present Illness Date Seen by Provider: Jun 09, 2022 Time Seen by Provider: 23:38 Initial Comments 42-year-old male with diagnosed COVID as of Wednesday presents to the emergency department today for headache, body aches nausea. He also has some burning in his right lower chest wall which he states he frequently gets with GERD. He was started on Paxlovid on Wednesday and thinks this may be upsetting his GERD. The burning is in his right lower chest wall and he states exactly the same as previous GERD symptoms. No aggravating or alleviating factors. He has been constant for the last 6 hours or so. He has dry heaves without any vomiting. He has chills but has not taken his temperature. Allergies and Home Medications Allergies Coded Allergies: sertraline (Verified Allergy, Severe, RASH, SWELLING, 04/09/20) "FELT LOOPY" bupropion (Verified Allergy, Unknown, "CAUSED ME TO BANG MY HEAD ON THE WALL", 04/09/20) buspirone (Verified Allergy, Unknown, THROAT SWELLED, 04/09/20) cephalexin (Verified Allergy, Unknown, HIVES, 04/09/20) codeine (Verified Allergy, Unknown, 04/09/20) sulfamethoxazole (Verified Adverse Reaction, Unknown, Itching, 04/09/20) trimethoprim (Verified Adverse Reaction, Unknown, Itching, 04/09/20) Patient Home Medication List Home Medication List Reviewed: Yes Ascorbic Acid (Vitamin C) 500 Mg Powd.pack, 500 MG PO DAILY, (Reported) Entered as Reported by: SABAS SILVA on 09/29/21 1417 Aspirin (Aspirin EC) 81 Mg Tablet.dr, 81 MG PO DAILY, (Reported) Entered as Reported by: SABAS SILVA on 09/29/21 1415 Butalb/Acetaminophen/Caffeine (Esgic 50-325-40 mg Tablet) 50 Mg-325 Mg-40 Mg Tablet, 1-2 EACH PO Q6 Prescribed by: TRISTEN TUCKER on 01/08/22 0505 Cetirizine HCl (Cetirizine HCl) 10 Mg Tablet, 10 MG PO DAILY PRN for ALLERGIES, (Reported) Entered as Reported by: SABAS SILVA on 09/29/21 1416 Chlorhexidine Gluconate (Chlorhexidine Gluconate) 473 Ml Mouthwash, 15 ML PO DAILY, (Reported) Entered as Reported by: SABAS SILVA on 09/29/21 141 Fluticasone Propionate (Fluticasone Propionate) 16 Gm [place].susp, 1 SPRAY NSEACH DAILY PRN for ALLERGIES, (Reported) Entered as Reported by: SABAS SILVA on 09/29/21 141 Guaifenesin (Mucinex) 600 Mg Tab.er.12h, 600 MG PO BID Prescribed by: ORI LIAO on 10/01/21 1215 Hydrochlorothiazide (Hydrochlorothiazide) 25 Mg Tablet, 25 MG PO DAILY PRN for FLUID RETENTION, (Reported) Entered as Reported by: SABAS SILVA on 09/29/21 141 Hydroxyzine HCl (Hydroxyzine HCl) 25 Mg Tablet, 25 MG PO TID PRN for ANXIETY, (Reported) Entered as Reported by: SABAS SILVA on 09/29/21 141 Ibuprofen (Ibuprofen) 600 Mg Tablet, 600 MG PO Q8H PRN for PAIN-MILD (1-4), (Reported) Entered as Reported by: SABAS SILVA on 09/29/21 141 Insulin Regular, Human (Humulin R U-500 Kwikpen) 500 Unit/1 Ml Insuln.pen, 150 UNITS SC BID, (Reported) Entered as Reported by: SABAS SILVA on 09/29/21 141 Meclizine HCl (Meclizine HCl) 25 Mg Tablet, 50 MG PO Q6 PRN for DIZZINESS Prescribed by: TRISTEN TUCKER on 01/08/22 0505 Ondansetron (Ondansetron Odt) 4 Mg Tab.rapdis, 4 MG PO Q4H Prescribed by: TRISTEN TUCKER on 01/08/22 0505 Pantoprazole Sodium (Pantoprazole Sodium) 40 Mg Tablet.dr, 40 MG PO DAILY, (Reported) Entered as Reported by: TRISTON BETH on 04/09/20 1431 Pregabalin (Pregabalin) 150 Mg Capsule, 150 MG PO DAILY, (Reported) Entered as Reported by: ZACHARY HATCH on 12/04/20 1538 Tramadol HCl (Ultram) 50 Mg Tablet, 50 MG PO Q6H PRN for PAIN-BREAKTHROUGH Prescribed by: MAMIE MIDDLETON on 03/28/22 0702 Review of Systems Review of Systems Constitutional: chills EENTM: no symptoms reported Respiratory: cough Cardiovascular: other (Burning in his right lower chest) Gastrointestinal: heartburn Genitourinary: no symptoms reported Musculoskeletal: other (Body aches) Skin: no symptoms reported Psychiatric/Neurological: Headache Hematologic/Lymphatic: No Symptoms Reported Immunological/Allergic: no symptoms reported Past Djwcgji-Ppmurr-Dgytdm Hx Patient Social History Tobacco Use?: No Use of E-Cig and/or Vaping dev: No Substance use?: No Immunizations Up To Date Tetanus Booster (TDap): More than 5yrs PED Vaccines UTD: No First/Initial COVID19 Vaccinat: NO Second COVID19 Vaccination Sundar: NO Third COVID19 Vaccination Date: NO Seasonal Allergies Seasonal Allergies: Yes Past Medical History Surgery/Hospitalization HX: testicular, cholecystectomy hypogonadism, asthma, high cholesterol, htn, gerd, neuropathy, obesity, iddm, adhd, anx/dep, Surgeries: Yes (HYPOGONADISM SURGERY ; ENDOSCOPIES) Gallbladder, Testicular Respiratory: Yes Asthma Currently Using CPAP: No Currently Using BIPAP: No Cardiac: Yes High Cholesterol, Hypertension, Palpitations Neurological: Yes Neuropathy Reproductive Disorders: Yes (HYPOGONADISM sx as an ) Sexually Transmitted Disease: No HIV/AIDS: No Genitourinary: No Gastrointestinal: Yes (ENDOSCOPIES) Gastroesophageal Reflux, Diverticulosis, Esophagitis Musculoskeletal: Yes Arthritis Endocrine: Yes (MORBID OBESITY; DM TYPE 2 (INSULIN AND PO)) Diabetes, Insulin dep HEENT: Yes (GLASSES) Loss of Vision: Denies Hearing Impairment: Denies Cancer: No Psychosocial: Yes ADD/ADHD, Anxiety, Depression Integumentary: No Blood Disorders: No Adverse Reaction/Blood Tranf: No (N/A) Family Medical History Reviewed Nursing Family Hx Arthritis 19 MOTHER Congenital heart disease Diabetes mellitus 19 FATHER 19 MOTHER FH: brain aneurysm 19 FATHER (cause of - 09/13/2015) Glaucoma 19 FATHER Hypertension 19 FATHER 19 MOTHER Psychosocial problem 19 MOTHER (depression) No Pertinent Family Hx Physical Exam Vital Signs Capillary Refill : Height, Weight, BMI Height: 5'11.00" Weight: 324lbs. 0.0oz. 146.991734qs; 49.00 BMI Method:Stated General Appearance: No Apparent Distress, WD/WN HEENT: PERRL/EOMI, TMs Normal, Normal ENT Inspection, Pharynx Normal Neck: Full Range of Motion, Normal Inspection, Non Tender, Supple Respiratory: Chest Non Tender, Lungs Clear, Normal Breath Sounds, No Accessory Muscle Use, No Respiratory Distress Cardiovascular: No Edema, No Gallop, No JVD, No Murmur, Normal Peripheral Pulses, Tachycardia (Mild) Gastrointestinal: Normal Bowel Sounds, No Organomegaly, No Pulsatile Mass, Non Tender, Soft Extremity: Normal Capillary Refill, Normal Inspection, Normal Range of Motion, Non Tender, No Calf Tenderness Neurologic/Psychiatric: Alert, Oriented x3 Skin: Normal Color, Warm/Dry Lymphatic: No Adenopathy Progress/Results/Core Measures Suspected Sepsis SIRS Temperature: Pulse: Respiratory Rate: Blood Pressure / Mean: Results/Orders My Orders Orders - SUMIHENNY DO Ondansetron Oral Dissolve Tab (Zofran (06/09/22 23:46) Ketorolac Injection (Toradol Injection) (06/10/22 00:00) Lidocaine 2% Viscous 15 Ml (Xylocaine Vi (06/10/22 00:00) Sucralfate Tablet (Carafate Tablet) (06/10/22 00:00) Antacid Suspension (Mylanta Suspension (06/10/22 00:00) Medications Given in ED Current Medications Medications Dose Ordered Sig/Nikia Route Start Time Stop Time Status Last Admin Dose Admin Al Hydrox/Mg Hydrox/Simethicone 30 ml ONCE ONCE PO 06/10/22 00:00 06/10/22 00:01 DC 06/09/22 23:56 30 ML Ketorolac Tromethamine 15 mg ONCE ONCE IM 06/10/22 00:00 06/10/22 00:01 DC 06/09/22 23:56 15 MG Lidocaine HCl 5 ml ONCE ONCE PO 06/10/22 00:00 06/10/22 00:01 DC 06/09/22 23:56 5 ML Sucralfate 1 gm ONCE ONCE PO 06/10/22 00:00 06/10/22 00:01 DC 06/09/22 23:56 1 GM Vital Signs/I&O Capillary Refill : Departure Communication (Admissions) Patient is hemodynamically stable in clinic and hypertension. Oxygen saturations normal with some very mild tachycardia in accordance with his COVID illness. Denies increase his fluids at home. Feeling somewhat better after Zofran and Carafate, GI cocktail. Discharged in stable condition with supportive care. Impression Primary Impression: COVID-19 Disposition: 01 HOME, SELF-CARE Condition: Stable Departure-Patient Inst. Referrals: [facility] (PCP) Primary Care Physician ZACHARY LEVIN DO (Family) Primary Care Physician Patient Instructions: COVID-19 Home Care/Discharge Add. Discharge Instructions: Increase your fluids at home and rest. Alternate Motrin and Tylenol as needed for pain. Use the Carafate prescription as needed for heartburn type symptoms. Take the Motrin with food and not for more than 48 hours to not aggravate this further. Return to the emergency department for any severe concerns. Follow-up with your primary doctor in the next 48 to 72 hours should your symptoms persist. Return to the emergency department for any severe shortness of breath. Scripts Ondansetron (Ondansetron Odt) 8 Mg Tab.rapdis 8 MG PO Q6H for Nausea for 3 Days, #12 TAB Prov: HENNY JONAS DO 06/10/22 Sucralfate (Carafate) 1 Gram Tablet 1 GM PO ACHS for 3 Days, #12 TAB Prov: HENNY JONAS DO 06/10/22 HENNY JONAS DO Jun 09, 2022 23:39
[2022-06-09] MEDS ORDERED: ONDANSETRON 4 MG (ZOFRAN) ORAL DISSOLVE TAB PO STA (23:46)
[2022-06-10] MEDS ORDERED: ANTACID SUSP 30 ML UDC (MYLANTA) PO ONE
[2022-06-10] MEDS ORDERED: SUCRALFATE 1 GM (CARAFATE) TAB PO ONE
[2022-06-10] MEDS ORDERED: LIDOCAINE 2% VISCOUS 15 ML UDC PO ONE
[2022-06-10] MEDS ORDERED: KETOROLAC 60 MG/2 ML VIAL IM ONE
[2022-06-10] MEDS ORDERED: SUCR1TAB36 PO (00:09)
[2022-06-10] MEDS ORDERED: ONDA8TAB13 PO (00:10)
[2022-06-10 00:21] VITALS: BP 179/110
[2022-06-11] MEDS ORDERED: AMLO-250 PO (10:55)
[2022-06-11] MEDS ORDERED: LISI40TA9 PO (10:55)
[2022-06-11] MEDS ORDERED: DICY20TA PO (10:55)
[2022-06-11] MEDS ORDERED: HYDR50TA76 PO (10:55)
[2022-06-11] MEDS ORDERED: SITA100T12 PO (10:55)
[2022-06-11] MEDS ORDERED: TIZA-186 PO (10:55)
[2022-06-11] MEDS ORDERED: SUCR1TAB PO (11:29)
[2022-06-11] MEDS ORDERED: ONDA8TAB13 PO (11:29)
== END 2022-06-10 00:21 | disposition home or self-care (01) ==
LOC: EDUNIT# 23:28 → ER 23:31
DX: U07.1 COVID-19 (principal); R11.0 Nausea; E11.40 Type 2 diabetes mellitus with diabetic neuropathy, unspecified; E66.01 Morbid (severe) obesity due to excess calories; Z68.42 Body mass index [BMI] 45.0-49.9, adult; Z28.310 Unvaccinated for COVID-19; Z73.0 Burn-out; Z79.4 Long term (current) use of insulin
CPT/HCPCS: 99284

== ENCOUNTER 2022-06-10 08:09 | Inpatient (IN) | payer MEDICARE, MEDICAID ==
[~2022-06-10] VITALS: Ht 176 cm; Wt 155.0 kg
[~2022-06-10 08:09] MED LIST changes: +SUCR1TAB36 PO
[2022-06-10] MEDS ORDERED: NS IV 1000 ML 1,000 ML IV STA (09:58)
--- NOTE | 2022-06-10 10:01 | ED General ---
General Chief Complaint: COVID19 Suspect/Confirmed Stated Complaint: COVID + Nursing Triage Note: PT WAS SEEN LAST NIGHT FOR SAME, PT COVID + 2 DAYS AGO, NOT ABLE TO SLEEP, STATES HE'S NOT EATING OR DRINKING WELL, DIABETIC BUT DOES NOT MONITOR HIS GLUCOSE WELL PER PT. 99% ON ROOM AIR. STATES ACID REFLUX IS GIVING HIM CHEST PAIN Source of Information: Patient Exam Limitations: No Limitations History of Present Illness Date Seen by Provider: Jun 10, 2022 Time Seen by Provider: 09:48 Initial Comments Patient is a 41-year-old male who presents to the emergency department this morning chief complaint of feeling short of breath, generally weak, very thirsty. He has a history of insulin-dependent diabetes. He was recently diagnosed with COVID. He was seen here in the emergency room at midnight with GERD symptoms. He was given Zofran and Carafate. He continued to worsen throughout the morning and felt like he might need to come back in for fluids and had concern for DKA. His cough is nonproductive. He has had poor appetite. Denies dysuria, urgency or frequency. No diarrhea, black or bloody stools. He thinks that his COVID symptoms actually started 7 days ago. He was put on antiviral but he felt like that was upsetting his stomach so he quit. No headache. No sore throat, no runny nose. On initial entry into the room he is quite tachypneic with scoop filler small respirations. Appears tired. Room air saturations 99%. All other review of systems reviewed and negative except as stated. Timing/Duration: 12-24 Hours Severity: Moderate Associated Systoms: Chest Pain (right sided), Malaise, Nausea/Vomiting, Shortness of Air, Weakness Allergies and Home Medications Allergies Coded Allergies: sertraline (Verified Allergy, Severe, RASH, SWELLING, 04/09/20) "FELT LOOPY" bupropion (Verified Allergy, Unknown, "CAUSED ME TO BANG MY HEAD ON THE WALL", 04/09/20) buspirone (Verified Allergy, Unknown, THROAT SWELLED, 04/09/20) cephalexin (Verified Allergy, Unknown, HIVES, 04/09/20) codeine (Verified Allergy, Unknown, 04/09/20) sulfamethoxazole (Verified Adverse Reaction, Unknown, Itching, 04/09/20) trimethoprim (Verified Adverse Reaction, Unknown, Itching, 04/09/20) Patient Home Medication List Home Medication List Reviewed: Yes Ascorbic Acid (Vitamin C) 500 Mg Powd.pack, 500 MG PO DAILY, (Reported) Entered as Reported by: SABAS SILVA on 09/29/21 141 Aspirin (Aspirin EC) 81 Mg Tablet.dr, 81 MG PO DAILY, (Reported) Entered as Reported by: SABAS SILVA on 09/29/21 141 Butalb/Acetaminophen/Caffeine (Esgic 50-325-40 mg Tablet) 50 Mg-325 Mg-40 Mg Tablet, 1-2 EACH PO Q6 Prescribed by: TRISTEN TUCKER on 01/08/22 0505 Cetirizine HCl (Cetirizine HCl) 10 Mg Tablet, 10 MG PO DAILY PRN for ALLERGIES, (Reported) Entered as Reported by: SABAS SILVA on 09/29/21 141 Chlorhexidine Gluconate (Chlorhexidine Gluconate) 473 Ml Mouthwash, 15 ML PO DAILY, (Reported) Entered as Reported by: SABAS SILVA on 09/29/21 141 Fluticasone Propionate (Fluticasone Propionate) 16 Gm [place].susp, 1 SPRAY NSEACH DAILY PRN for ALLERGIES, (Reported) Entered as Reported by: SABAS SILVA on 09/29/21 141 Guaifenesin (Mucinex) 600 Mg Tab.er.12h, 600 MG PO BID Prescribed by: ORI LIAO on 10/01/21 1215 Hydrochlorothiazide (Hydrochlorothiazide) 25 Mg Tablet, 25 MG PO DAILY PRN for FLUID RETENTION, (Reported) Entered as Reported by: SABAS SILVA on 09/29/21 141 Hydroxyzine HCl (Hydroxyzine HCl) 25 Mg Tablet, 25 MG PO TID PRN for ANXIETY, (Reported) Entered as Reported by: SABAS SILVA on 09/29/21 141 Ibuprofen (Ibuprofen) 600 Mg Tablet, 600 MG PO Q8H PRN for PAIN-MILD (1-4), (Reported) Entered as Reported by: SABAS SILVA on 09/29/21 141 Insulin Regular, Human (Humulin R U-500 Kwikpen) 500 Unit/1 Ml Insuln.pen, 150 UNITS SC BID, (Reported) Entered as Reported by: SABAS SILVA on 09/29/21 1412 Meclizine HCl (Meclizine HCl) 25 Mg Tablet, 50 MG PO Q6 PRN for DIZZINESS Prescribed by: TRISTEN TUCKER on 01/08/22 0505 Ondansetron (Ondansetron Odt) 4 Mg Tab.rapdis, 4 MG PO Q4H Prescribed by: TRISTEN TUCKER on 01/08/22 0505 Ondansetron (Ondansetron Odt) 8 Mg Tab.rapdis, 8 MG PO Q6H Prescribed by: HENNY JONAS MD on 06/10/22 0010 Pantoprazole Sodium (Pantoprazole Sodium) 40 Mg Tablet.dr, 40 MG PO DAILY, (Reported) Entered as Reported by: TRISTON BETH on 04/09/20 1431 Pregabalin (Pregabalin) 150 Mg Capsule, 150 MG PO DAILY, (Reported) Entered as Reported by: ZACHARY HATCH on 12/04/20 1538 Sucralfate (Carafate) 1 Gram Tablet, 1 GM PO ACHS Prescribed by: HENNY JONAS MD on 06/10/22 0009 Tramadol HCl (Ultram) 50 Mg Tablet, 50 MG PO Q6H PRN for PAIN-BREAKTHROUGH Prescribed by: MAMIE MIDDLETON on 03/28/22 0702 Review of Systems Review of Systems Constitutional: see HPI EENTM: no symptoms reported Respiratory: short of breath Cardiovascular: no symptoms reported Gastrointestinal: nausea Genitourinary: no symptoms reported Musculoskeletal: no symptoms reported Skin: no symptoms reported Psychiatric/Neurological: No Symptoms Reported All Other Systems Reviewed Negative Unless Noted: Yes Past Mrgbeaa-Ndjkrt-Bigihn Hx Patient Social History Tobacco Use?: No Substance use?: No Alcohol Use?: No Immunizations Up To Date Tetanus Booster (TDap): More than 5yrs PED Vaccines UTD: No First/Initial COVID19 Vaccinat: NONE Second COVID19 Vaccination Sundar: NONE Third COVID19 Vaccination Date: NONE Seasonal Allergies Seasonal Allergies: Yes Past Medical History Surgery/Hospitalization HX: testicular, cholecystectomy hypogonadism, asthma, high cholesterol, htn, gerd, neuropathy, obesity, iddm, adhd, anx/dep, Surgeries: Yes (HYPOGONADISM SURGERY INFANT; ENDOSCOPIES) Gallbladder, Testicular Respiratory: Yes Asthma Currently Using CPAP: No Currently Using BIPAP: No Cardiac: Yes High Cholesterol, Hypertension, Palpitations Neurological: Yes Neuropathy Reproductive Disorders: Yes (HYPOGONADISM sx as an infant) Sexually Transmitted Disease: No HIV/AIDS: No Genitourinary: No Gastrointestinal: Yes (ENDOSCOPIES) Gastroesophageal Reflux, Diverticulosis, Esophagitis Musculoskeletal: Yes Arthritis Endocrine: Yes (MORBID OBESITY; DM TYPE 2 (INSULIN AND PO)) Diabetes, Insulin dep HEENT: Yes (GLASSES) Loss of Vision: Denies Hearing Impairment: Denies Cancer: No Psychosocial: Yes ADD/ADHD, Anxiety, Depression Integumentary: No Blood Disorders: No Adverse Reaction/Blood Tranf: No (N/A) Family Medical History Arthritis 19 MOTHER Congenital heart disease Diabetes mellitus 19 FATHER 19 MOTHER FH: brain aneurysm 19 FATHER (cause of - 09/13/2015) Glaucoma 19 FATHER Hypertension 19 FATHER 19 MOTHER Psychosocial problem 19 MOTHER (depression) No Pertinent Family Hx Physical Exam Vital Signs Vital Signs - First Documented 06/10/22 08:11 Temp 36.4 Pulse 102 Resp 24 B/P (MAP) 179/97 (124) Pulse Ox 99 O2 Delivery Room Air Capillary Refill : Less Than 3 Seconds Height, Weight, BMI Height: 5'11.00" Weight: 324lbs. 0.0oz. 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 II-XII Norm as Tested Skin: Warm/Dry, Pallor Progress/Results/Core Measures Suspected Sepsis SIRS Temperature: Pulse: 102 Respiratory Rate: 24 Laboratory Tests 06/10/22 10:30: White Blood Count 7.6 Blood Pressure 179 /97 Mean: 124 Laboratory Tests 06/10/22 10:30: Creatinine 1.73H, Platelet Count 195, Total Bilirubin 0.5 Results/Orders Lab Results Laboratory Tests Test 06/10/22 08:16 06/10/22 10:07 06/10/22 10:30 06/10/22 11:01 Range/Units Glucometer 400 *H 389 H 70-110 MG/DL White Blood Count 7.6 4.3-11.0 10^3/uL Red Blood Count 6.16 H 4.30-5.52 10^6/uL Hemoglobin 18.2 H 13.3-17.7 g/dL Hematocrit 53 40-54 % Mean Corpuscular Volume 87 80-99 fL Mean Corpuscular Hemoglobin 30 25-34 pg Mean Corpuscular Hemoglobin Concent 34 32-36 g/dL Red Cell Distribution Width 13.3 10.0-14.5 % Platelet Count 195 130-400 10^3/uL Mean Platelet Volume 11.8 9.0-12.2 fL Immature Granulocyte % (Auto) 3 % Neutrophils (%) (Auto) 79 H 42-75 % Lymphocytes (%) (Auto) 12 12-44 % Monocytes (%) (Auto) 6 0-12 % Eosinophils (%) (Auto) 0 0-10 % Basophils (%) (Auto) 1 0-10 % Neutrophils # (Auto) 6.0 1.8-7.8 10^3/uL Lymphocytes # (Auto) 0.9 L 1.0-4.0 10^3/uL Monocytes # (Auto) 0.4 0.0-1.0 10^3/uL Eosinophils # (Auto) 0.0 0.0-0.3 10^3/uL Basophils # (Auto) 0.0 0.0-0.1 10^3/uL Immature Granulocyte # (Auto) 0.2 H 0.0-0.1 10^3/uL Percent Immature Platelet Fraction 7.2 0.0-7.6 % Sodium Level 130 L 135-145 MMOL/L Potassium Level 5.4 H 3.6-5.0 MMOL/L Chloride Level 97 L 98-107 MMOL/L Carbon Dioxide Level 7 *L 21-32 MMOL/L Anion Gap 26 H 5-14 MMOL/L Blood Urea Nitrogen 24 H 7-18 MG/DL Creatinine 1.73 H 0.60-1.30 MG/DL Estimat Glomerular Filtration Rate 49 BUN/Creatinine Ratio 14 Glucose Level 433 *H 70-105 MG/DL Calcium Level 8.5 8.5-10.1 MG/DL Corrected Calcium 8.5-10.1 MG/DL Total Bilirubin 0.5 0.1-1.0 MG/DL Aspartate Amino Transf (AST/SGOT) 172 H 5-34 U/L Alanine Aminotransferase (ALT/SGPT) 186 H 0-55 U/L Alkaline Phosphatase 106 40-136 U/L Total Protein 8.7 H 6.4-8.2 GM/DL Albumin 4.7 H 3.2-4.5 GM/DL Lipase 27 8-78 U/L Beta-Hydroxybutyrate (Chem panel) 7.53 H 0.00-0.27 MMOL/L Smear Scan YES Blood Gas Puncture Site LEFT RADIAL Blood Gas Patient Temperature 36.1 Arterial Blood pH 7.09 *L 7.37-7.43 Arterial Blood Partial Pressure CO2 9 *L 35-45 MMHG Arterial Blood Partial Pressure O2 112 H 79-93 MMHG Arterial Blood HCO3 3 *L 23-27 MMOL/L Arterial Blood Total CO2 3.0 *L 21.0-31.0 MMOL/L Arterial Blood Oxygen Saturation 98 94-100 % Arterial Blood Base Excess -26.2 L -2.5-2.5 MMOL/L Aroldo Test YES-POS Blood Gas Ventilator Setting NO Blood Gas Inspired Oxygen ROOM AIR Test 06/10/22 12:10 Range/Units My Orders Orders - MILO KHAN MD Ed Iv/Invasive Line Start (06/10/22 09:58) Cbc With Automated Diff (06/10/22 09:58) Comprehensive Metabolic Panel (06/10/22 09:58) Lipase (06/10/22 09:58) Ua Culture If Indicated (06/10/22 09:58) Chest 1 View, Ap/Pa Only (06/10/22 09:58) Beta Hydroxybutyrate (06/10/22 09:58) Accucheck Stat ONCE (06/10/22 09:58) Ns Iv 1000 Ml (Sodium Chloride 0.9%) (06/10/22 09:58) Arterial Blood Gas (06/10/22 10:30) Ondansetron Injection (Zofran Injectio (06/10/22 11:15) Ns Iv 1000 Ml (Sodium Chloride 0.9%) (06/10/22 11:15) Insulin (Regular) Human (Novolin R (Per (06/10/22 12:18) Insulin (Regular) Human (Novolin R (Per (06/10/22 12:18) Medications Given in ED Current Medications Medications Dose Ordered Sig/Nikia Route Start Time Stop Time Status Last Admin Dose Admin Ondansetron HCl 4 mg ONCE ONCE IVP 06/10/22 11:15 06/10/22 11:16 DC 06/10/22 11:18 4 MG Vital Signs/I&O 06/10/22 06/10/22 08:11 08:20 Temp 36.4 Pulse 102 Resp 24 B/P (MAP) 179/97 (124) Pulse Ox 99 O2 Delivery Room Air Room Air Capillary Refill : Less Than 3 Seconds Blood Pressure Mean: 124 Diagnostic Imaging Diagonstic Imaging: Xray Plain Films/CT/US/NM/MRI: chest Comments [facility], [place] NAME: JOHN CHAVEZ [facility] REC#: [id number] PT STATUS: REG ER : 1980 PHYSICIAN: MILO KHAN MD ADMIT DATE: 06/10/22/ER Draft Date of Exam:06/10/22 CHEST 1 VIEW, AP/PA ONLY CLINICAL INDICATION: Patient is COVID positive. DKA. EXAM: Portable chest x-ray upright view. COMPARISON: Chest x-ray dated 09/29/2021. FINDINGS: Lungs/pleura: Lungs are clear. There is no pneumothorax. There is no pleural effusion. Mediastinum: Unremarkable. Pulmonary vasculature: Unremarkable. Heart: Unremarkable. Bones/extrathoracic soft tissue: Unremarkable. IMPRESSION: There is no radiographic evidence of acute cardiopulmonary process. Dictated on workstation # [id number] Dict: 06/10/22 1131 Trans: 06/10/22 1137 [id number] [id number] Interpreted by: DIANNA HEARD MD Electronically signed by: Critical Care Note Critical Care Start Time: 09:48 Stop Time: 12:00 Total Time (minutes) 45 minutes critical care time in the evaluation and management of this 42-year-old with type 1 diabetes and diabetic ketoacidosis. Time includes initial evaluation, initiation of fluid resuscitation, treatment of hyperglycemia, review of medical record, review and interpretation of laboratory findings. Discussion with admitting provider. Departure Communication (Admissions) Time/Spoke to Admitting Phy: 12:[address] Bradshaw Impression Primary Impression: Diabetic ketoacidosis Qualified Codes: E10.10 - Type 1 diabetes mellitus with ketoacidosis without coma Disposition: ADMITTED INPATIENT Condition: Critical Admissions Decision to Admit Reason: Admit from ER (General) Decision to Admit/Date: Jun 10, 2022 Time/Decision to Admit Time: 12:38 Departure-Patient Inst. Referrals: ZACHARY LEVIN DO (PCP/Family) Primary Care Physician MILO KHAN MD Jun 10, 2022 10:01
[2022-06-10 11:01] LABS: BASOPHILS % (AUTO) 1 % (0-10)
[2022-06-10 11:07] LABS: EOSINOPHILS % (AUTO) 0 % (0-10); HEMATOCRIT 53 % (40-54); HEMOGLOBIN 18.2 g/dL (13.3-17.7); LYMPHOCYTES # (AUTO) 0.9 10^3/uL (1.0-4.0); LYMPHOCYTES % (AUTO) 12 % (12-44); MEAN CORPUSCULAR HEMOGLOBIN 30 pg (25-34); MEAN CORPUSCULAR HGB CONC 34 g/dL (32-36); MEAN CORPUSCULAR VOLUME 87 fL (80-99); MEAN PLATELET VOLUME 11.8 fL (9.0-12.2); MONOCYTES # (AUTO) 0.4 10^3/uL (0.0-1.0); MONOCYTES % (AUTO) 6 % (0-12); NEUTROPHILS % (AUTO) 79 % (42-75); PLATELET COUNT 195 10^3/uL (130-400); SMEAR SCAN COMMENT YES; WHITE BLOOD COUNT 7.6 10^3/uL (4.3-11.0)
[2022-06-10 11:08] LABS: ABG BASE EXCESS -26.2 MMOL/L (-2.5-2.5); ABG OXYGEN SATURATION 98 % (94-100); ABG PO2 112 MMHG (79-93)
[2022-06-10] MEDS ORDERED: NS IV 1000 ML 1,000 ML IV SCH ×2 (11:15→14:00)
[2022-06-10] MEDS ORDERED: ONDANSETRON 4 MG/2 ML (SDV) Z0FRAN IVP ONE (11:15)
[2022-06-10 11:17] LABS: ALBUMIN 4.7 GM/DL (3.2-4.5)
[2022-06-10 11:18] LABS: CHLORIDE 97 MMOL/L (98-107); SODIUM 130 MMOL/L (135-145)
[2022-06-10 11:18] LABS: ABG PCO2 9 MMHG (35-45); ABG PH 7.09 (7.37-7.43); ALLENS TEST YES-POS; INSPIRED O2 ROOM AIR; PATIENT TEMP 36.1; VENTILATOR NO
[2022-06-10 11:19] LABS: CALCIUM 8.5 MG/DL (8.5-10.1)
[2022-06-10 11:20] LABS: TOTAL PROTEIN 8.7 GM/DL (6.4-8.2)
[2022-06-10 11:22] LABS: BILIRUBIN,TOTAL 0.5 MG/DL (0.1-1.0)
[2022-06-10 11:23] LABS: ALKALINE PHOSPHATASE 106 U/L (40-136)
[2022-06-10 11:24] LABS: CREATININE SERUM 1.73 MG/DL (0.60-1.30); GFR ESTIMATED 49
[2022-06-10 11:25] LABS: BUN/CREATININE RATIO 14
[2022-06-10 11:27] LABS: ALANINE AMINOTRANSFERASE 186 U/L (0-55); LIPASE 27 U/L (8-78)
[2022-06-10 11:28] LABS: CARBON DIOXIDE 7 MMOL/L (21-32); GLUCOSE 433 MG/DL (70-105); POTASSIUM 5.4 MMOL/L (3.6-5.0)
--- NOTE | 2022-06-10 11:37 | Diagnostic Imaging Report ---
CLINICAL INDICATION: Patient is COVID positive. DKA. EXAM: Portable chest x-ray upright view. COMPARISON: Chest x-ray dated 09/29/2021. FINDINGS: Lungs/pleura: Lungs are clear. There is no pneumothorax. There is no pleural effusion. Mediastinum: Unremarkable. Pulmonary vasculature: Unremarkable. Heart: Unremarkable. Bones/extrathoracic soft tissue: Unremarkable. IMPRESSION: There is no radiographic evidence of acute cardiopulmonary process. Dictated by: Dictated on workstation # [id number]
[2022-06-10] MEDS ORDERED: inSUlin (REGULAR) HUMAN 1 UNIT/0.01 ML (CHARGE PER UNIT) IV STA (12:18)
[2022-06-10] MEDS ORDERED: inSUlin (REGULAR) HUMAN 1 UNIT/0.01 ML (CHARGE PER UNIT) SC STA (12:18)
[2022-06-10 12:30] LABS: BILIRUBIN,URINE NEGATIVE (NEGATIVE); CLARITY,URINE CLEAR; COLOR,URINE YELLOW; GLUCOSE, URINE (UA) 3+ (NEGATIVE); KETONES,URINE 3+ (NEGATIVE); LEUKOCYTE ESTERASE ,URINE NEGATIVE (NEGATIVE); NITRITE,URINE NEGATIVE (NEGATIVE); PH,URINE 5.5 (5-9); PROTEIN,URINE 1+ (NEGATIVE)
[2022-06-10 12:41] LABS: BACTERIA,URINE NEGATIVE /HPF; SQUAMOUS EPITHELIAL CELL,UR RARE /HPF
[2022-06-10] MEDS ORDERED: diphenhydrAMINE 25 MG TAB (BENADRYL) PO PRN (14:00)
[2022-06-10] MEDS: POTASSIUM CL 10MEQ/50ML IVPB 50 ML IV SCH ×5 (14:00→22:00)
[2022-06-10] MEDS ORDERED: MILK OF MAGNESIA 400 MG/5 ML 30 ML UDC PO PRN (14:00)
[2022-06-10] MEDS ORDERED: ANTACID SUSP 30 ML UDC (MYLANTA) PO PRN (14:00)
[2022-06-10] MEDS ORDERED: LACTULOSE SYRUP 10GM/15ML (ENULOSE) 30ML UDC PO PRN (14:00)
[2022-06-10] MEDS ORDERED: BISACODYL 10 MG SUPP (DULCOLAX) PR PRN (14:00)
[2022-06-10] MEDS ORDERED: CALCIUM CARBONATE 500 MG (TUMS) TAB.CHEW PO PRN (14:00)
[2022-06-10] MEDS ORDERED: HYDROmorphone 2 MG/ML VIAL (DILAUDID) IV PRN (14:00)
[2022-06-10] MEDS ORDERED: polyethylene glycoL POWDER 17 GM (MIRALAX) PACK PO PRN (14:00)
[2022-06-10] MEDS ORDERED: NS IV 500 ML 500 ML IV PRN (14:00)
[2022-06-10] MEDS ORDERED: LIDOCAINE UROJET 2% GEL 10 ML PKG TOP NR (14:00)
[2022-06-10] MEDS ORDERED: diphenhydrAMINE 50 MG/ML INJ (BENADRYL) IVP PRN (14:00)
[2022-06-10] MEDS ORDERED: ONDANSETRON 4 MG (ZOFRAN) ORAL DISSOLVE TAB PO PRN (14:00)
[2022-06-10] MEDS ORDERED: POTASSIUM CL 10MEQ/50ML IVPB 100 ML IV ONE (14:11)
--- NOTE | 2022-06-10 14:38 | History & Physical-Hospitalist ---
CINDY JOHN 06/10/22 1438: History of Present Illness HPI/Chief Complaint Patient is a 42 year old obese male with past medical history of DM, HTN, morbid obesity, and peripheral neuropathy that presented to ER this afternoon (06-10-2022) for SOB, general weakness, and extreme thirst. He is insulin dependent and was diagnosed with COVID last Wednesday. He visited the ER this morning just after midnight with abdominal pain and nausea. He was given zofran and carafate. After being able to obtain the medication he said he did not improve so he returned to the ER this afternoon. He said he knew something was not right and thought he was having another episode of DKA like he has had in the past. He was found to have DKA in the ER and was admitted to the hospital. He complains today of chest pain and extreme nausea on examination. On entering the room he exhibited Kussmal respirations, having a tough time answering any pointed question due to his SOB. He appears to be in great discomfort. He states that he recently lost his accucheck meter and that is why his sugar has gotten out of control. He states he is on disability for high functioning autism and ADHD. He is concerned about his ability to not have visitors due to COVID. Nursing had attempted to insert garay catheter but with no success at this time. He reports no other symptoms from having COVID since last Wednesday besides feeling "crummy." He denies any diarrhea, bloody stools, or muscle/joint pain. Denies sore throat, ear pain, headache. Patient appears very anxious and mildly dep ressed about his current situation/status. Denies any drug use, alcohol use, or cigarette use. Source: patient, RN/MD Date Seen 06/10/22 Attending Physician Kings Connolly DO PCP Admitting Physician: Radha Rocha DO Attending Physician: Radha Rocha DO Referring Physician Date of Admission Jun 10, 2022 at 13:03 Home Medications & Allergies Home Medications Reviewed patient Home Medication Reconciliation performed by pharmacy medication reconciliations industrial maintenance technician and/or nursing. Patients Allergies have been reviewed. Allergies Allergies Coded Allergies sertraline (Verified Allergy, Severe, RASH, SWELLING, 04/09/20) "FELT LOOPY" bupropion (Verified Allergy, Unknown, "CAUSED ME TO BANG MY HEAD ON THE WALL", 04/09/20) buspirone (Verified Allergy, Unknown, THROAT SWELLED, 04/09/20) cephalexin (Verified Allergy, Unknown, HIVES, 04/09/20) codeine (Verified Allergy, Unknown, pt tolerated morphine in past, 06/10/22) sulfamethoxazole (Verified Adverse Reaction, Unknown, Itching, 04/09/20) trimethoprim (Verified Adverse Reaction, Unknown, Itching, 04/09/20) Past Xnctrjr-Kzbsnv-Viehlt Hx Patient Social History Tobacco Use?: No Use of E-Cig and/or Vaping dev: No Substance use?: No Alcohol Use?: No Pt feels they are or have been: No Immunizations Up To Date First/Initial COVID19 Vaccinat: NONE Second COVID19 Vaccination Sundar: NONE Tetanus Booster (TDap): Unknown Hepatitis A: No Hepatitis B: No PED Vaccines UTD: No Seasonal Allergies Seasonal Allergies: Yes Current Status Advance Directives: No Communicates: Verbally Primary Language: Icelandic Preferred Spoken Language: Icelandic Is interpretation needed?: No Implanted or Applied Medical D: None Past Medical History Surgeries: Gallbladder, Testicular Asthma Currently Using CPAP: No Currently Using BIPAP: No High Cholesterol, Hypertension, Palpitations Neuropathy Sexually Transmitted Disease: No HIV/AIDS: No Gastroesophageal Reflux, Diverticulosis, Esophagitis Arthritis Diabetes, Insulin dep Loss of Vision: Denies Hearing Impairment: Denies ADD/ADHD, Anxiety, Depression Blood Disorders: No Adverse Reaction/Blood Tranf: No (N/A) PMH: DM - diagnosed as Type 2 in his 20's - admitted for DKA 2011, 09/19/15 Hypertension Anxiety Hypogonadism (not currently treated) Obesity ADHA Chronic musculoskeletal pain PSH: Testicular surgery as infant for undescended testicles bilaterally Lap cholecystectomy 09/2014 Family Medical History Arthritis 19 MOTHER Congenital heart disease Diabetes mellitus 19 FATHER 19 MOTHER FH: brain aneurysm 19 FATHER (cause of - 09/13/2015) Glaucoma 19 FATHER Hypertension 19 FATHER 19 MOTHER Psychosocial problem 19 MOTHER (depression) No Pertinent Family Hx Review of Systems Constitutional: chills, weakness EENTM: No hearing loss, No mouth pain Respiratory: short of breath Cardiovascular: chest pain; No edema Gastrointestinal: abdominal pain (States it is a 8/10) Genitourinary: No discharge, No hematuria Musculoskeletal: No back pain, No joint swelling Skin: change in color (Distal nail bed is ischemic), change in hair/nails Psychiatric/Neurological: Anxiety, Depressed, Other (Reports himself as high function autism ) Physical Exam Physical Exam Vital Signs Vital Signs - First Documented 06/10/22 06/10/22 08:11 14:01 Temp 36.4 Pulse 102 Resp 24 B/P (MAP) 179/97 (124) Pulse Ox 99 O2 Delivery Room Air O2 Flow Rate 2.00 Capillary Refill : Less Than 3 Seconds Height, Weight, BMI Height: 5'11.00" Weight: 324lbs. 0.0oz. 146.264358ih; 49.78 BMI Method:Stated General Appearance: Anxious, Chronically ill, Moderate Distress, Obese HEENT: PERRL/EOMI; No Scleral Icterus (L), No Scleral Icterus (R) Neck: Full Range of Motion, Normal Inspection Respiratory: No Chest Non Tender; No Accessory Muscle Use, Other (Kussmal Breathing ) Cardiovascular: No Gallop, No JVD, No Murmur, Tachycardia Gastrointestinal: Non Tender, Soft Rectal: Deferred Back: Normal Inspection, No CVA Tenderness Extremity: No Normal Capillary Refill (delayed, and diminished. all nail beds with ischemic changes ); Normal Range of Motion Neurologic/Psychiatric: Alert, Oriented x3, Depressed Affect Skin: Normal Color, Warm/Dry Lymphatic: No Adenopathy Results Results/Procedures Labs Laboratory Tests 06/10/22 10:30 06/10/22 14:30 Patient resulted labs reviewed. Assessment/Plan Assessment and Plan Type 1 DM with severe ketoacidosis without Coma Administer IVF- NS Begin IV insulin till blood glucose is 200 Monitor Potassium Monitor ABG Hourly Glucose checks Obtain Beta-Hydroxybutyrate values CATHIE Administer IVF Continue monitoring Monitor input/output DM Non-compliant Poorly Controlled COVID Positive Continue Supportive Care Monitor oxygen saturation HTN Monitor and Continue home medications (lisinopril) Anxiety Ativan ordered- Administer if necessary Nausea/Vomiting Administer Zofran Peripheral Diabetic Neuropathy Continue gabapentin Arthritis Monitor Pain Continue at home tramadol if needed Hyperkalemia Dyspnea/Kussmal Breathing DVT prophylaxis Administer Lovenox Morbid Obesity BMI 49 RADHA ROCHA DO 06/10/223: History of Present Illness HPI/Chief Complaint CC: DKA HPI: This is a 42yoWM [facility] patient who presents to ER with weakness and found to have DKA. Patient is sleeping and does not converse with me. Source: patient, RN/MD, old records Exam Limitations: clinical condition Time Seen by a Provider: 16:00 Past Bttrgqp-Ftoids-Geymkc Hx Family Medical History Arthritis 19 MOTHER Congenital heart disease Diabetes mellitus 19 FATHER 19 MOTHER FH: brain aneurysm 19 FATHER (cause of - 09/13/2015) Glaucoma 19 FATHER Hypertension 19 FATHER 19 MOTHER Psychosocial problem 19 MOTHER (depression) Review of Systems Constitutional: see HPI Physical Exam Physical Exam General Appearance: No Apparent Distress, Chronically ill, Moderate Distress, Obese Respiratory: Normal Breath Sounds Cardiovascular: Regular Rate, Rhythm, Tachycardia Neurologic/Psychiatric: Alert, Depressed Affect Assessment/Plan Admission Diagnosis DKA Plan: ICU Insulin drip Monitor closely Admission Status: Inpatient Order (span 2 midnights) Reason for Inpatient Admission: dkA Supervisory-Addendum Brief Verification & Attestation Participated in pt care: history, MDM, physical Personally performed: exam, history, MDM, supervision of care Care discussed with: Medical Student Procedures: n/a Results interpretation: Verified all documentation Verification and Attestation of Medical Student E/M Service A medical student performed and documented this service in my presence. I reviewed and verified all information documented by the medical student and made modifications to such information, when appropriate. I personally performed the physical exam and medical decision making. Radha Rocha, Jun 10, 2022,21:03 CINDY JOHN Jun 10, 2022 14:38 RADHA ROCHA DO Jun 10, 2022 21:03
[2022-06-10 15:04] LABS: CHLORIDE 102 MMOL/L (98-107); POTASSIUM 5.7 MMOL/L (3.6-5.0); SODIUM 130 MMOL/L (135-145)
[2022-06-10 15:05] LABS: CALCIUM 7.8 MG/DL (8.5-10.1)
[2022-06-10 15:09] LABS: CREATININE SERUM 1.77 MG/DL (0.60-1.30); GFR ESTIMATED 48
[2022-06-10 15:10] LABS: BUN/CREATININE RATIO 14
[2022-06-10 15:11] LABS: CARBON DIOXIDE < 5 MMOL/L (21-32)
[2022-06-10 15:13] LABS: GLUCOSE 416 MG/DL (70-105)
--- NOTE | 2022-06-10 15:14 | Tele-ICU Progress Note ---
Subjective Date Seen by a Provider: Jun 10, 2022 Time Seen by a Provider: 15:09 Subjective/Events-last exam (Tele-ICU Physician , consultation) Available chart/ vitals / labs / Images reviewed H&P is from ER notes Patient's information available about PMH, allergy reviewed in EMR. ROS as per chart and RN report Video assessment done using teleICU camera, rest of exam as per RN Discussed with RN. Patient has a history of 4 insulin requiring diabetes mellitus with peripheral neuropathy came with nausea, chest discomfort and generalized weakness. In the emergency room he is found to have diabetic ketoacidosis with severe metabolic acidosis. Admitted to ICU for insulin drip and close monitoring. He is found to have elevated liver enzymes. Review of Systems ros per rn Sepsis Event Evaluation Height, Weight, BMI Height: 5'11.00" Weight: 324lbs. 0.0oz. 146.331916lp; 49.78 BMI Method:Stated Exam Exam Patient acknowledged, consented, and participated in this virtual visit which was conducted using real time audio/video Vital Signs Date Time Temp Pulse Resp B/P (MAP) Pulse Ox O2 Delivery O2 Flow Rate FiO2 06/10/22 14:37 118 06/10/22 14:07 115 29 150/68 (95) 100 Room Air 06/10/22 14:01 100 Nasal Cannula 2.00 06/10/22 08:20 Room Air 06/10/22 08:11 36.4 102 24 179/97 (124) 99 Room Air Height & Weight Height: 5'11.00" Weight: 324lbs. 0.0oz. 146.538417bz; 49.78 BMI Method:Stated General Appearance: Chronically ill, Moderate Distress HEENT: PERRL/EOMI, Other (dry oral mucosa) Neck: Normal Inspection Respiratory: Lungs Clear, Other (Kussmaul breathing/tachypnea) Cardiovascular: Regular Rate, Rhythm, Normal Peripheral Pulses, Tachycardia (111) Capillary Refill: Less Than 3 Seconds Extremity: Normal Range of Motion Neurologic/Psychiatric: Alert, Oriented x3, No Motor/Sensory Deficits, Normal Mood/Affect, trade specialist II-XII Norm as Tested Skin: Warm/Dry, Pallor Other comments PE PER RN Results Lab Laboratory Tests 06/10/22 10:30 06/10/22 14:30 Assessment/Plan Assessment/Plan 1 diabetic ketoacidosis 2. Acute kidney injury secondary to severe dehydration 3. Elevated liver enzymes rule out underlying hepatic and gallbladder disorders including acute cholecystitis. 4. Hyperkalemia secondary to metabolic acidosis 5. Dyspnea secondary to severe metabolic acidosis Recommendations 1. Continue hydration and insulin drip per protocol 2. We will give 1 dose of fluid and bicarbonate 50 mEq IV push 3. We will get troponin 3. We will repeat liver enzymes and get liver and gallbladder ultrasound in a.m. 5. Continue monitor electrolytes, magnesium and phosphate. 6. Will do 1 dose of Reglan in addition to Zofran as he is still continues to have nausea. 7. DVT prophylaxis and ulcer prophylaxis. 8. Care coodination with primay care physician Critical Care: Critically Ill Patient Time spent with patient (mins): 30 LAUREN CRANDALL MD Jun 10, 2022 15:14
[2022-06-10] MEDS ORDERED: METOCLOPRAMIDE INJ 10 MG/2 ML (REGLAN) IVP NR (15:30)
[2022-06-10] MEDS ORDERED: SODIUM BICARB 8.4% 50 MEQ/50 ML (ABBOTT) SYR IV NR (15:30)
[2022-06-10] MEDS: 1/2 NS IV SOLUTION 1,000 ML IV SCH ×3 (15:32→22:00)
[2022-06-10 16:05] VITALS: BP 150/68
[2022-06-10] MEDS ORDERED: RT-ALBUTEROL HFA 8.5 GM INHALER IH PRN (16:15)
[2022-06-10] MEDS: ENOXAPARIN 40 MG/0.4 ML (LOVENOX) SYR SC SCH (19:37)
[2022-06-10] MEDS: SENNOSIDES 8.6 MG (SENOKOT) TAB PO SCH (20:20)
[2022-06-10] MEDS: DOCUSATE SODIUM 100 MG (COLACE) CAP PO SCH (20:20)
[2022-06-10] MEDS: ACETAMINOPHEN 325 MG TABLET PO PRN (20:21)
[2022-06-10] MEDS: D5 1/2 NS 1000 ML IV SOLUTION 1,000 ML IV SCH (20:38)
[2022-06-10 21:32] LABS: CALCIUM 7.6 MG/DL (8.5-10.1); CREATININE SERUM 1.49 MG/DL (0.60-1.30); MAGNESIUM 2.1 MG/DL (1.6-2.4); POTASSIUM 4.8 MMOL/L (3.6-5.0)
[2022-06-10] MEDS: MELATONIN 3 MG TABLET PO PRN (21:41)
[2022-06-10] MEDS ORDERED: POTASSIUM CL 10MEQ/50ML IVPB 50 ML IV ONE (21:57)
[2022-06-11 01:20] LABS: POTASSIUM 4.4 MMOL/L (3.6-5.0)
[2022-06-11 01:21] LABS: CALCIUM 7.6 MG/DL (8.5-10.1); CREATININE SERUM 1.27 MG/DL (0.60-1.30)
[2022-06-11] MEDS: POTASSIUM CL 10MEQ/50ML IVPB 50 ML IV SCH ×13 (01:25→23:53)
[2022-06-11] MEDS: D5 1/2 NS 1000 ML IV SOLUTION 1,000 ML IV SCH ×7 (01:27→20:49)
[2022-06-11] MEDS: ONDANSETRON 4 MG/2 ML (SDV) Z0FRAN IV PRN ×2 (01:47→13:28)
[2022-06-11] MEDS: 1/2 NS IV SOLUTION 1,000 ML IV SCH ×6 (02:00→22:00)
[2022-06-11 05:02] LABS: BASOPHILS % (AUTO) 0 % (0-10); EOSINOPHILS % (AUTO) 0 % (0-10); HEMATOCRIT 43 % (40-54); HEMOGLOBIN 15.3 g/dL (13.3-17.7); LYMPHOCYTES # (AUTO) 1.4 10^3/uL (1.0-4.0); LYMPHOCYTES % (AUTO) 20 % (12-44); MEAN CORPUSCULAR HEMOGLOBIN 30 pg (25-34); MEAN CORPUSCULAR HGB CONC 36 g/dL (32-36); MEAN CORPUSCULAR VOLUME 84 fL (80-99); MEAN PLATELET VOLUME 10.7 fL (9.0-12.2); MONOCYTES # (AUTO) 0.8 10^3/uL (0.0-1.0); MONOCYTES % (AUTO) 12 % (0-12); NEUTROPHILS # (AUTO) 4.6 10^3/uL (1.8-7.8); NEUTROPHILS % (AUTO) 66 % (42-75); PLATELET COUNT 168 10^3/uL (130-400)
[2022-06-11 05:12] LABS: ALBUMIN 3.5 GM/DL (3.2-4.5); POTASSIUM 4.5 MMOL/L (3.6-5.0)
[2022-06-11 05:13] LABS: CALCIUM 7.6 MG/DL (8.5-10.1)
[2022-06-11 05:15] LABS: TOTAL PROTEIN 6.7 GM/DL (6.4-8.2)
[2022-06-11 05:16] LABS: BILIRUBIN,TOTAL 0.3 MG/DL (0.1-1.0)
[2022-06-11 05:18] LABS: CREATININE SERUM 1.17 MG/DL (0.60-1.30); PHOSPHORUS 1.5 MG/DL (2.3-4.7)
[2022-06-11 05:20] LABS: BILIRUBIN,DIRECT 0.1 MG/DL (0.0-0.3); BILIRUBIN,INDIRECT 0.2 MG/DL
[2022-06-11 05:21] LABS: MAGNESIUM 2.1 MG/DL (1.6-2.4)
[2022-06-11] MEDS: MAGNESIUM 1 GM/100 ML IVPB 100 ML IV SCH (06:00)
[2022-06-11] MEDS: KCL 20 MEQ TAB (K-DUR) PO SCH (06:00)
[2022-06-11] MEDS: ENOXAPARIN 40 MG/0.4 ML (LOVENOX) SYR SC SCH ×2 (06:24→17:24)
--- NOTE | 2022-06-11 07:40 | Diagnostic Imaging Report ---
INDICATION: COVID. Comparison is made with prior exam of 06/10/2022. FINDINGS: The heart size, mediastinal configuration, and pulmonary vascularity are within normal limits. There is no pleural effusion, pneumothorax, or pneumonia. The osseous structures are unremarkable. IMPRESSION: No acute cardiopulmonary abnormality. Report was faxed to Justin/RN Infection Control by charles at 7:39AM. Dictated by: Dictated on workstation # [id number]
[2022-06-11] MEDS: DOCUSATE SODIUM 100 MG (COLACE) CAP PO SCH ×2 (08:14→20:37)
[2022-06-11] MEDS: SENNOSIDES 8.6 MG (SENOKOT) TAB PO SCH ×2 (08:14→20:37)
--- NOTE | 2022-06-11 08:34 | Tele-ICU Progress Note ---
Subjective Date Seen by a Provider: Jun 11, 2022 Time Seen by a Provider: 08:30 Subjective/Events-last exam (Tele-ICU Physician , Progress note) Available chart/ vitals / labs / Images reviewed H&P is from ER notes Patient's information available about PMH, allergy reviewed in EMR. ROS as per chart and RN report Video assessment done using teleICU camera, rest of exam as per RN Discussed with RN. Patient has a history of insulin requiring diabetes mellitus with peripheral neuropathy came with nausea, chest discomfort and generalized weakness. In the emergency room he is found to have diabetic ketoacidosis with severe metabolic acidosis. Admitted to ICU for insulin drip and close monitoring. He is found to have elevated liver enzymes. Breathing some what better, AG improving but co2 still low. Review of Systems ros per rn Sepsis Event Evaluation Height, Weight, BMI Height: 5'11.00" Weight: 324lbs. 0.0oz. 146.957097jy; 48.74 BMI Method:Stated Exam Exam Patient acknowledged, consented, and participated in this virtual visit which was conducted using real time audio/video Vital Signs Date Time Temp Pulse Resp B/P (MAP) Pulse Ox O2 Delivery O2 Flow Rate FiO2 06/11/22 07:52 36.6 06/11/22 07:00 102 06/11/22 06:23 36.9 06/11/22 06:00 98 17 142/78 (99) 99 Room Air 06/11/22 05:00 105 19 133/75 (94) 98 Room Air 06/11/22 05:00 Room Air 98 06/11/22 04:00 96 19 130/75 (93) 98 Room Air 06/11/22 03:17 36.4 06/11/22 03:00 97 26 141/82 (101) 97 Room Air 06/11/22 02:00 102 29 129/61 (83) 97 Room Air 06/11/22 01:12 102 06/11/22 01:00 100 20 133/73 (93) 99 Room Air 06/11/22 00:00 111 45 167/83 (111) 100 Room Air 06/10/22 23:59 Room Air 100 06/10/22 23:00 108 19 161/80 (107) 94 Room Air 06/10/22 22:00 112 28 151/67 (95) 100 Room Air 06/10/22 21:00 108 28 179/78 (111) 100 Room Air 06/10/22 20:00 116 31 153/94 (113) 99 Room Air 06/10/22 19:39 Room Air 99 06/10/22 19:30 36.7 112 28 160/80 (106) 99 Room Air 06/10/22 19:13 108 06/10/22 18:00 110 27 99 Room Air 06/10/22 16:59 36.6 120 22 164/84 (110) 100 Room Air 06/10/22 16:05 36.4 118 100 06/10/22 16:00 Room Air 06/10/22 16:00 114 22 100 Room Air 06/10/22 15:00 114 27 182/90 (120) 99 Room Air 06/10/22 14:37 118 06/10/22 14:07 115 29 150/68 (95) 100 Room Air 06/10/22 14:01 100 Nasal Cannula 2.00 06/10/22 13:30 36.5 118 24 123/71 98 Room Air I & O 06/11/22 07:00 Intake Total 6300 ml Balance 6300 ml Height & Weight Height: 5'11.00" Weight: 324lbs. 0.0oz. 146.287855ot; 48.74 BMI Method:Stated General Appearance: No Apparent Distress, Chronically ill, Moderate Distress, Obese HEENT: PERRL/EOMI; No Scleral Icterus (L), No Scleral Icterus (R) Neck: Full Range of Motion, Normal Inspection Respiratory: Normal Breath Sounds Cardiovascular: Regular Rate, Rhythm, Tachycardia Capillary Refill: Less Than 3 Seconds Extremity: No Normal Capillary Refill (delayed, and diminished. all nail beds with ischemic changes ); Normal Range of Motion Neurologic/Psychiatric: Alert, Depressed Affect Skin: Normal Color, Warm/Dry Lymphatic: No Adenopathy Results Lab Laboratory Tests 06/10/22 10:30 06/10/22 14:30 06/10/22 20:32 06/11/22 00:16 06/11/22 04:44 Assessment/Plan Assessment/Plan 1 diabetic ketoacidosis slowly improving. 2. Acute kidney injury secondary to severe dehydration 3. Elevated liver enzymes rule out underlying hepatic and gallbladder disorders including acute cholecystitis. 4. Hyperkalemia secondary to metabolic acidosis 5. Dyspnea secondary to severe metabolic acidosis improving. 6. Covid-19 infection Recommendations 1. Continue hydration and insulin drip per protocol 2. We will give sodium phosphate rider. 3. We will repeat liver enzymes and get liver and gallbladder ultrasound in a.m. 4. Continue monitor electrolytes, magnesium and phosphate. 5. Zofran iv prn for N/V 6 DVT prophylaxis and ulcer prophylaxis. 7. Care coodination with primay care physician Critical Care: Critically Ill Patient Time spent with patient (mins): 20 LAUREN CRANDALL MD Jun 11, 2022 08:34
[2022-06-11] MEDS ORDERED: SODIUM PHOSPHATE INJ 30 MM in NS (IVPB) 250 ML INJ NR (08:37)
[2022-06-11 09:04] LABS: CALCIUM 7.8 MG/DL (8.5-10.1); CREATININE SERUM 1.18 MG/DL (0.60-1.30)
[2022-06-11] MEDS ORDERED: TIZA-186 PO (10:55)
[2022-06-11] MEDS ORDERED: LISI40TA9 PO (10:55)
[2022-06-11] MEDS ORDERED: AMLO-250 PO (10:55)
[2022-06-11] MEDS ORDERED: SITA100T12 PO (10:55)
[2022-06-11] MEDS ORDERED: DICY20TA PO (10:55)
[2022-06-11] MEDS ORDERED: HYDR50TA76 PO (10:55)
[2022-06-11] MEDS ORDERED: SUCR1TAB PO (11:29)
[2022-06-11] MEDS ORDERED: ONDA8TAB13 PO (11:29)
--- NOTE | 2022-06-11 11:41 | Diagnostic Imaging Report ---
PROCEDURE: US Hepatic (Liver). TECHNIQUE: Multiple real-time grayscale images were obtained over the right upper quadrant in various projections. INDICATION: Elevated liver enzymes. COMPARISON: CT abdomen pelvis of 03/28/2022 FINDINGS: Liver is enlarged measuring 25 cm in length and has marked increased echogenicity indicative of severe hepatic steatosis. Additionally, there is diminished sound transmission due to steatosis result in suboptimal assessment for focal hepatic lesion. Review of CT from 2 months ago shows no concerning hepatic lesion. Cholecystectomy. Common bile duct is obscured by overlying bowel gas. The visualized portions of the pancreas are normal. Portions of the head and tail are obscured by overlying bowel gas. The right kidney is normal in size. No hydronephrosis, shadowing calculi, or suspicious mass lesion. IMPRESSION: 1. Hepatomegaly with diffuse hepatic steatosis is unchanged since CT performed 03/28/2022. Dictated by: Dictated on workstation # [id number]
[2022-06-11] MEDS: POT PHOS/NA PHOS (K-PHOS NEUTRAL) PO SCH ×2 (11:47→17:03)
[2022-06-11 12:32] LABS: CALCIUM 7.7 MG/DL (8.5-10.1); CREATININE SERUM 1.08 MG/DL (0.60-1.30); POTASSIUM 3.8 MMOL/L (3.6-5.0)
--- NOTE | 2022-06-11 13:46 | Progress Note - Hospitalist ---
CINDY JOHN 06/11/22 1346: Subjective HPI/CC On Admission Date Seen by Provider: Jun 11, 2022 Time Seen by Provider: 13:41 CC: DKA HPI: This is a 42yoWM [facility] patient who presents to ER with weakness and found to have DKA. Patient is sleeping and does not converse with me. Subjective/Events-last exam Patient is in mild distress Breathing and respiratory effort have improved States he is still feeling slighlty anxious Complaints of generalized chest wall pain from respiratory effort Feels he is making very minor improvements Was not able to sleep well Had no bowel movement, urinating appropriately Objective Exam Vital Signs Vital Signs Date Time Temp Pulse Resp B/P (MAP) Pulse Ox O2 Delivery O2 Flow Rate FiO2 06/11/22 13:00 101 15 99 Room Air 06/11/22 12:14 36.0 06/11/22 12:13 99 06/10/22 14:01 2.00 Capillary Refill : Less Than 3 Seconds General Appearance: Anxious, Mild Distress, Obese HEENT: PERRL/EOMI; No Scleral Icterus (L), No Scleral Icterus (R) Neck: Full Range of Motion, Non Tender, Supple Respiratory: No Chest Non Tender; Lungs Clear; No Accessory Muscle Use Cardiovascular: Regular Rate, Rhythm, No Gallop, No JVD Gastrointestinal: No Pulsatile Mass; No Non Tender; Soft Rectal: Deferred Back: Normal Inspection, No CVA Tenderness Extremity: Normal Range of Motion, Non Tender Neurologic/Psychiatric: Alert, Oriented x3, Depressed Affect Skin: Normal Color, Warm/Dry Lymphatic: No Adenopathy Results/Procedures Lab Laboratory Tests 06/10/22 14:30 06/10/22 20:32 06/11/22 00:16 06/11/22 04:44 06/11/22 08:30 06/11/22 11:50 Patient resulted labs reviewed. Assessment/Plan Assessment and Plan Assess & Plan/Chief Complaint Type 1 DM with severe ketoacidosis without Coma-Improving Continue IVF- NS Continue IV insulin Monitor Potassium-holding steady Monitor ABG Hourly Glucose checks Obtain Beta-Hydroxybutyrate values Pain Control CATHIE Administer IVF Continue monitoring Monitor input/output DM Non-compliant Poorly Controlled COVID Positive Continue Supportive Care Monitor oxygen saturation HTN Monitor and Continue home medications (lisinopril) Anxiety Ativan ordered- Administer if necessary Nausea/Vomiting Administer Zofran Elevated Liver Enzymes Order liver US Peripheral Diabetic Neuropathy Continue gabapentin Arthritis Monitor Pain Continue at home tramadol if needed Hyperkalemia Dyspnea/Kussmal Breathing DVT prophylaxis Administer Lovenox Morbid Obesity BMI 49 RADHA ROCHA DO 06/12/22 0526: Subjective Subjective/Events-last exam Patient much improved DKA requiring slow insulin drip Supervisory-Addendum Brief Verification & Attestation Participated in pt care: history, MDM, physical Personally performed: exam, history, MDM, supervision of care Care discussed with: Medical Student Procedures: n/a Results interpretation: Verified all documentation Verification and Attestation of Medical Student E/M Service A medical student performed and documented this service in my presence. I reviewed and verified all information documented by the medical student and made modifications to such information, when appropriate. I personally performed the physical exam and medical decision making. Radha Rocha, Jun 12, 2022,05:26 CINDY JOHN Jun 11, 2022 13:46 RADHA ROCHA DO Jun 12, 2022 05:26
[2022-06-11] MEDS: LORazepam 0.5 MG (ATIVAN) TABLET PO PRN (15:19)
[2022-06-11] MEDS: MELATONIN 3 MG TABLET PO PRN (19:38)
[2022-06-11 20:09] LABS: POTASSIUM 3.6 MMOL/L (3.6-5.0)
[2022-06-11 20:10] LABS: CALCIUM 8.1 MG/DL (8.5-10.1)
[2022-06-11 20:15] LABS: CREATININE SERUM 0.96 MG/DL (0.60-1.30)
--- NOTE | 2022-06-11 21:24 | Tele-ICU Progress Note ---
Subjective Date Seen by a Provider: Jun 11, 2022 Time Seen by a Provider: 21:17 Subjective/Events-last exam called to help tranisition on long acting insulin, has been on IV insulin drip @ 14 units/hour, now glu AG 8 and HCO3 19, Has not been on long acting insulin, will give 20 U of Levimer, mod sliding scale, now on D5W IV, is not vomiting Sepsis Event Evaluation Height, Weight, BMI Height: 5'11.00" Weight: 324lbs. 0.0oz. 146.876690ec; 48.74 BMI Method:Stated Exam Exam Patient acknowledged, consented, and participated in this virtual visit which was conducted using real time audio/video Vital Signs Date Time Temp Pulse Resp B/P (MAP) Pulse Ox O2 Delivery O2 Flow Rate FiO2 06/11/22 20:00 98 22 122/64 (83) 97 Room Air 06/11/22 20:00 Room Air 97 06/11/22 19:33 36.6 06/11/22 19:00 115 21 158/66 (96) 97 Room Air 06/11/22 18:43 115 06/11/22 18:00 101 26 143/78 (99) 83 Room Air 06/11/22 17:00 96 22 174/90 (118) 94 Room Air 06/11/22 16:29 36.4 06/11/22 16:00 95 18 150/67 (94) 97 Room Air 06/11/22 15:40 Room Air 97 06/11/22 15:00 94 29 151/75 (100) 97 Room Air 06/11/22 14:00 101 21 148/76 (100) 96 Room Air 06/11/22 13:00 101 15 99 Room Air 06/11/22 13:00 105 06/11/22 12:14 36.0 06/11/22 12:13 Room Air 99 06/11/22 12:00 94 22 137/68 (91) 100 Room Air 06/11/22 11:00 115 21 160/71 (100) 100 Room Air 06/11/22 10:00 98 20 147/78 (101) 98 Room Air 06/11/22 09:00 104 21 130/69 (89) Room Air 06/11/22 08:00 Room Air 97 06/11/22 08:00 95 21 153/72 (99) 96 Room Air 06/11/22 07:52 36.6 06/11/22 07:00 98 28 137/65 (89) Room Air 06/11/22 07:00 102 06/11/22 06:23 36.9 06/11/22 06:00 98 17 142/78 (99) 99 Room Air 06/11/22 05:00 105 19 133/75 (94) 98 Room Air 06/11/22 05:00 Room Air 98 06/11/22 04:00 96 19 130/75 (93) 98 Room Air 06/11/22 03:17 36.4 06/11/22 03:00 97 26 141/82 (101) 97 Room Air 06/11/22 02:00 102 29 129/61 (83) 97 Room Air 06/11/22 01:12 102 06/11/22 01:00 100 20 133/73 (93) 99 Room Air 06/11/22 00:00 111 45 167/83 (111) 100 Room Air 06/10/22 23:59 Room Air 100 06/10/22 23:00 108 19 161/80 (107) 94 Room Air 06/10/22 22:00 112 28 151/67 (95) 100 Room Air I & O 06/11/22 07:00 Intake Total 6300 ml Balance 6300 ml Height & Weight Height: 5'11.00" Weight: 324lbs. 0.0oz. 146.933121ro; 48.74 BMI Method:Stated General Appearance: Anxious, Mild Distress, Obese HEENT: PERRL/EOMI; No Scleral Icterus (L), No Scleral Icterus (R) Neck: Full Range of Motion, Non Tender, Supple Respiratory: No Chest Non Tender; Lungs Clear; No Accessory Muscle Use Cardiovascular: Regular Rate, Rhythm, No Gallop, No JVD Capillary Refill: Less Than 3 Seconds Extremity: Normal Range of Motion, Non Tender Neurologic/Psychiatric: Alert, Oriented x3, Depressed Affect Skin: Normal Color, Warm/Dry Lymphatic: No Adenopathy Results Lab Laboratory Tests 06/10/22 10:30 06/10/22 14:30 06/10/22 20:32 06/11/22 00:16 06/11/22 04:44 06/11/22 08:30 06/11/22 11:50 06/11/22 19:48 Assessment/Plan Assessment/Plan WIll give 20 U of Levimer, start moderate sliding scale, continue D5W Critical Care: Critically Ill Patient Time spent with patient (mins): 25 JOHN CASTAÑEDA MD Jun 11, 2022 21:24
[2022-06-11] MEDS ORDERED: inSUlin ASPART (NovoLOG) 1 UNIT/0.01 ML (CHARGE PER UNIT) SC SCH (21:45)
[2022-06-11 23:14] LABS: CALCIUM 7.9 MG/DL (8.5-10.1); CREATININE SERUM 0.93 MG/DL (0.60-1.30); POTASSIUM 3.6 MMOL/L (3.6-5.0)
--- NOTE | 2022-06-12 00:08 | Tele-ICU Progress Note ---
Subjective Date Seen by a Provider: Jun 12, 2022 Time Seen by a Provider: 00:03 Subjective/Events-last exam HCO3 has dropped from 19 to 13 but no anion gap, probably dry, will continue IVF, recheck lactate and BMP in 1 hour, no diarrhea, has not had bowel movement Sepsis Event Evaluation Height, Weight, BMI Height: 5'11.00" Weight: 324lbs. 0.0oz. 146.[age]yo; 48.74 BMI Method:Stated Exam Exam Patient acknowledged, consented, and participated in this virtual visit which was conducted using real time audio/video Vital Signs Date Time Temp Pulse Resp B/P (MAP) Pulse Ox O2 Delivery O2 Flow Rate FiO2 06/11/22 23:00 90 25 113/55 (74) 97 Room Air 06/11/22 22:00 97 15 136/72 (93) 97 Room Air 06/11/22 21:00 98 16 123/74 (90) 99 Room Air 06/11/22 20:00 98 22 122/64 (83) 97 Room Air 06/11/22 20:00 Room Air 97 06/11/22 19:33 36.6 06/11/22 19:00 115 21 158/66 (96) 97 Room Air 06/11/22 18:43 115 06/11/22 18:00 101 26 143/78 (99) 83 Room Air 06/11/22 17:00 96 22 174/90 (118) 94 Room Air 06/11/22 16:29 36.4 06/11/22 16:00 95 18 150/67 (94) 97 Room Air 06/11/22 15:40 Room Air 97 06/11/22 15:00 94 29 151/75 (100) 97 Room Air 06/11/22 14:00 101 21 148/76 (100) 96 Room Air 06/11/22 13:00 101 15 99 Room Air 06/11/22 13:00 105 06/11/22 12:14 36.0 06/11/22 12:13 Room Air 99 06/11/22 12:00 94 22 137/68 (91) 100 Room Air 06/11/22 11:00 115 21 160/71 (100) 100 Room Air 06/11/22 10:00 98 20 147/78 (101) 98 Room Air 06/11/22 09:00 104 21 130/69 (89) Room Air 06/11/22 08:00 Room Air 97 06/11/22 08:00 95 21 153/72 (99) 96 Room Air 06/11/22 07:52 36.6 06/11/22 07:00 98 28 137/65 (89) Room Air 06/11/22 07:00 102 06/11/22 06:23 36.9 06/11/22 06:00 98 17 142/78 (99) 99 Room Air 06/11/22 05:00 105 19 133/75 (94) 98 Room Air 06/11/22 05:00 Room Air 98 06/11/22 04:00 96 19 130/75 (93) 98 Room Air 06/11/22 03:17 36.4 06/11/22 03:00 97 26 141/82 (101) 97 Room Air 06/11/22 02:00 102 29 129/61 (83) 97 Room Air 06/11/22 01:12 102 06/11/22 01:00 100 20 133/73 (93) 99 Room Air I & O 06/12/22 07:00 Intake Total 4900 ml Balance 4900 ml Height & Weight Height: 5'11.00" Weight: 324lbs. 0.0oz. 146.150681hw; 48.74 BMI Method:Stated General Appearance: Anxious, Mild Distress, Obese HEENT: PERRL/EOMI; No Scleral Icterus (L), No Scleral Icterus (R) Neck: Full Range of Motion, Non Tender, Supple Respiratory: No Chest Non Tender; Lungs Clear; No Accessory Muscle Use Cardiovascular: Regular Rate, Rhythm, No Gallop, No JVD Capillary Refill: Less Than 3 Seconds Extremity: Normal Range of Motion, Non Tender Neurologic/Psychiatric: Alert, Oriented x3, Depressed Affect Skin: Normal Color, Warm/Dry Lymphatic: No Adenopathy Results Lab Laboratory Tests 06/10/22 10:30 06/10/22 14:30 06/10/22 20:32 06/11/22 00:16 06/11/22 04:44 06/11/22 08:30 06/11/22 11:50 06/11/22 19:48 06/11/22 22:44 Assessment/Plan Assessment/Plan will repeat BMP, lactate in one hour, Critical Care: Critically Ill Patient Time spent with patient (mins): 20 JOHN CASTAÑEDA MD Jun 12, 2022 00:08
[2022-06-12 01:30] LABS: POTASSIUM 3.9 MMOL/L (3.6-5.0)
[2022-06-12 01:31] LABS: CALCIUM 8.1 MG/DL (8.5-10.1)
[2022-06-12 01:35] LABS: CREATININE SERUM 0.9 MG/DL (0.60-1.30)
[2022-06-12] MEDS: 1/2 NS IV SOLUTION 1,000 ML IV SCH ×4 (02:00→14:18)
[2022-06-12] MEDS: D5 1/2 NS 1000 ML IV SOLUTION 1,000 ML IV SCH ×3 (02:14→10:02)
[2022-06-12] MEDS: POTASSIUM CL 10MEQ/50ML IVPB 50 ML IV SCH ×7 (02:14→12:06)
[2022-06-12 04:21] LABS: BASOPHILS % (AUTO) 0 % (0-10); EOSINOPHILS % (AUTO) 0 % (0-10); MEAN CORPUSCULAR VOLUME 83 fL (80-99); PLATELET COUNT 131 10^3/uL (130-400)
[2022-06-12 04:23] LABS: HEMATOCRIT 39 % (40-54); LYMPHOCYTES # (AUTO) 1.2 10^3/uL (1.0-4.0); LYMPHOCYTES % (AUTO) 22 % (12-44); MEAN CORPUSCULAR HEMOGLOBIN 30 pg (25-34); MEAN CORPUSCULAR HGB CONC 36 g/dL (32-36); MEAN PLATELET VOLUME 10.3 fL (9.0-12.2); MONOCYTES # (AUTO) 0.5 10^3/uL (0.0-1.0); MONOCYTES % (AUTO) 10 % (0-12); NEUTROPHILS # (AUTO) 3.5 10^3/uL (1.8-7.8); NEUTROPHILS % (AUTO) 67 % (42-75); WHITE BLOOD COUNT 5.3 10^3/uL (4.3-11.0)
[2022-06-12 04:30] LABS: ALBUMIN 3.2 GM/DL (3.2-4.5); CHLORIDE 112 MMOL/L (98-107); POTASSIUM 3.6 MMOL/L (3.6-5.0); SODIUM 140 MMOL/L (135-145)
[2022-06-12 04:33] LABS: GLUCOSE 196 MG/DL (70-105); TOTAL PROTEIN 5.4 GM/DL (6.4-8.2)
[2022-06-12 04:34] LABS: BILIRUBIN,TOTAL 0.4 MG/DL (0.1-1.0); CARBON DIOXIDE 14 MMOL/L (21-32)
[2022-06-12 04:36] LABS: ALKALINE PHOSPHATASE 61 U/L (40-136); CREATININE SERUM 0.92 MG/DL (0.60-1.30); GFR ESTIMATED 105
[2022-06-12 04:37] LABS: BUN/CREATININE RATIO 9
[2022-06-12 04:39] LABS: ALANINE AMINOTRANSFERASE 86 U/L (0-55)
[2022-06-12 04:40] LABS: MAGNESIUM 1.9 MG/DL (1.6-2.4)
[2022-06-12 04:56] LABS: PHOSPHORUS < 0.7 MG/DL (2.3-4.7)
[2022-06-12] MEDS: MAGNESIUM 1 GM/100 ML IVPB 100 ML IV SCH (06:00)
[2022-06-12] MEDS: KCL 20 MEQ TAB (K-DUR) PO SCH (06:00)
[2022-06-12] MEDS ORDERED: POTASSIUM PHOSPHATE INJ 30 MM in NS (IVPB) 250 ML IV ONE (06:15)
[2022-06-12] MEDS: POT PHOS/NA PHOS (K-PHOS NEUTRAL) PO SCH ×3 (06:26→17:43)
[2022-06-12] MEDS: ENOXAPARIN 40 MG/0.4 ML (LOVENOX) SYR SC SCH ×2 (06:27→17:43)
[2022-06-12] MEDS ORDERED: FLUTICASONE NASAL SPRAY (FLONASE) 16 GM BTL NS PRN (06:30)
[2022-06-12] MEDS ORDERED: CHLORHEXIDINE 0.12% SOLN 15 ML (PERIDEX) UDC PO PRN (06:30)
[2022-06-12] MEDS ORDERED: PANTOPRAZOLE 40 MG (PROTONIX) TAB PO PRN (06:30)
[2022-06-12] MEDS ORDERED: DICYCLOMINE 10 MG (BENTYL) CAP PO PRN (06:45)
[2022-06-12] MEDS ORDERED: LORATADINE (CLARITIN) 10 MG TAB PO PRN (06:45)
[2022-06-12] MEDS ORDERED: hydrOXYzine (VISTARIL/ATARAX) 25 MG capsule/tablet PO PRN (06:45)
[2022-06-12] MEDS: PREGABALIN 150 MG (LYRICA) CAPSULE PO SCH ×2 (08:17→20:31)
[2022-06-12] MEDS: lisINopril 40 MG (PRINIVIL) TABLET PO SCH (08:17)
[2022-06-12] MEDS: SENNOSIDES 8.6 MG (SENOKOT) TAB PO SCH ×2 (08:17→20:31)
[2022-06-12] MEDS: LORazepam 0.5 MG (ATIVAN) TABLET PO PRN (08:17)
[2022-06-12] MEDS: ASPIRIN E.C. 81 MG (ECOTRIN) TAB PO SCH (08:17)
[2022-06-12] MEDS: DOCUSATE SODIUM 100 MG (COLACE) CAP PO SCH ×2 (08:17→20:31)
[2022-06-12] MEDS: amLODIPine 5 MG (NORVASC) TAB PO SCH (08:17)
--- NOTE | 2022-06-12 09:42 | Tele-ICU Progress Note ---
Subjective Date Seen by a Provider: Jun 12, 2022 Time Seen by a Provider: 09:42 Subjective/Events-last exam (Tele-ICU Physician , Progress Note ) Available chart/ vitals / labs / Images reviewed Video assessment done using teleICU camera, rest of exam as per RN Discussed with RN Events overnight : Afebrile hemodynamically stable Respiratory - I/O = Drips: Pressors- no Consultants: Hospital course: A/P DKA -precipitated by infection *Insulin drip, continue to monitor for resolution of acidosis, AG and e lectrolytes. Continue hydration. *Tx Gastroparesis CATHIE- resolved COVIS 19 infection - on RA Elv LFT - US liver - no acute new findings Lines : , (Central Line Necessity Reviewed) Crain: OG: Nutrition: Analgesia: Anxiety/ delirium VTE Prophylaxis: PPI po Stress Ulcer Prophylaxis: lo 40 Plans in collaboration with bedside consultants and IM MDs. Discussed with RN to reach out if any questions or concerns A total of 15 minutes of critical care time was devoted to this patient today, required to treat and/or prevent further deterioration of critical care condition ( as above ) . Sepsis Event Evaluation Height, Weight, BMI Height: 5'11.00" Weight: 324lbs. 0.0oz. 146.572713qd; 48.81 BMI Method:Stated Focused Exam Lactate Level 06/12/22 01:07: Lactic Acid Level 0.83 Exam Exam Patient acknowledged, consented, and participated in this virtual visit which was conducted using real time audio/video Vital Signs Date Time Temp Pulse Resp B/P (MAP) Pulse Ox O2 Delivery O2 Flow Rate FiO2 06/12/22 09:00 98 16 116/62 (80) 99 Room Air 06/12/22 08:45 Room Air 100 06/12/22 08:15 36.4 06/12/22 08:00 92 25 153/65 (94) 97 Room Air 06/12/22 07:00 102 06/12/22 07:00 99 28 157/100 (119) 98 Room Air 06/12/22 06:00 101 26 154/91 (112) 94 Room Air 06/12/22 05:00 97 27 154/90 (111) 97 Room Air 06/12/22 04:00 Room Air 97 06/12/22 04:00 93 28 155/82 (106) 98 Room Air 06/12/22 03:56 36.7 06/12/22 03:00 91 24 155/83 (107) 97 Room Air 06/12/22 02:00 93 27 135/63 (87) 97 Room Air 06/12/22 01:03 36.8 06/12/22 01:00 93 24 143/80 (101) 100 Room Air 06/12/22 00:02 93 06/12/22 00:00 100 135/76 (95) 99 Room Air 06/11/22 23:59 Room Air 97 06/11/22 23:00 90 25 113/55 (74) 97 Room Air 06/11/22 22:00 97 15 136/72 (93) 97 Room Air 06/11/22 21:00 98 16 123/74 (90) 99 Room Air 06/11/22 20:00 98 22 122/64 (83) 97 Room Air 06/11/22 20:00 Room Air 97 06/11/22 19:33 36.6 06/11/22 19:00 115 21 158/66 (96) 97 Room Air 06/11/22 18:43 115 06/11/22 18:00 101 26 143/78 (99) 83 Room Air 06/11/22 17:00 96 22 174/90 (118) 94 Room Air 06/11/22 16:29 36.4 06/11/22 16:00 95 18 150/67 (94) 97 Room Air 06/11/22 15:40 Room Air 97 06/11/22 15:00 94 29 151/75 (100) 97 Room Air 06/11/22 14:00 101 21 148/76 (100) 96 Room Air 06/11/22 13:00 101 15 99 Room Air 06/11/22 13:00 105 06/11/22 12:14 36.0 06/11/22 12:13 Room Air 99 06/11/22 12:00 94 22 137/68 (91) 100 Room Air 06/11/22 11:00 115 21 160/71 (100) 100 Room Air 06/11/22 10:00 98 20 147/78 (101) 98 Room Air I & O 06/12/22 07:00 Intake Total 6200 ml Balance 6200 ml Height & Weight Height: 5'11.00" Weight: 324lbs. 0.0oz. 146.997264da; 48.81 BMI Method:Stated General Appearance: Anxious, Mild Distress, Obese HEENT: PERRL/EOMI; No Scleral Icterus (L), No Scleral Icterus (R) Neck: Full Range of Motion, Non Tender, Supple Respiratory: No Chest Non Tender; Lungs Clear; No Accessory Muscle Use Cardiovascular: Regular Rate, Rhythm, No Gallop, No JVD Capillary Refill: Less Than 3 Seconds Extremity: Normal Range of Motion, Non Tender Neurologic/Psychiatric: Alert, Oriented x3, Depressed Affect Skin: Normal Color, Warm/Dry Lymphatic: No Adenopathy Results Lab Laboratory Tests 06/10/22 10:30 06/10/22 14:30 06/10/22 20:32 06/11/22 00:16 06/11/22 04:44 06/11/22 08:30 06/11/22 11:50 06/11/22 19:48 06/11/22 22:44 06/12/22 01:07 06/12/22 04:06 Assessment/Plan Assessment/Plan 1 JOSELYN ERICKSON MD Jun 12, 2022 09:42
[2022-06-12 09:57] LABS: CREATININE SERUM 0.83 MG/DL (0.60-1.30); POTASSIUM 3.5 MMOL/L (3.6-5.0)
--- NOTE | 2022-06-12 11:56 | Tele-ICU Progress Note ---
Subjective Date Seen by a Provider: Jun 12, 2022 Time Seen by a Provider: 11:55 Subjective/Events-last exam (Tele-ICU Physician , Progress Note ) Available chart/ vitals / labs / Images reviewed Video assessment done using teleICU camera, rest of exam as per RN Discussed with RN Events overnight : Afebrile hemodynamically stable Respiratory - I/O = Drips: Pressors- no VENT SETTINGS and ABG reviewed Sedation: RASS FENTANYL 75 PROPOFOL 5 Not candidate for SBTContraindications : Cardiovascular Stability /Sedation Score / FI02/PEEP / ABG / CXR Consultants: Hospital course: 06/12- AC 18-500 -50% + 10 A/P Acute on chronic hypercarbic respiratory failure with acute CHF - cont vent suppoer - AC 18-500 -50% + 10 - responded to diuresis- as per cards lasix 80 bid - will decrease PEEP today - try SBT tomorrow Acute diastolic CHF - Echocardiogram of 06-08-22 showed LVEF 55-60% Elevated liver enzymes - possibly hepatobiliary congestion d/t CHF - improving with aggressive diuresis Ovesity -? obesity-hypoventilation syndrome/ / KHADAR Replace lytes Lines : PICC 06/08, (Central Line Necessity Reviewed) Crain: + OG: Nutrition: tf Analgesia: Anxiety/ delirium VTE Prophylaxis: ppi iv Stress Ulcer Prophylaxis: hep q8 Plans in collaboration with bedside consultants and IM MDs. Discussed with RN to reach out if any questions or concerns A total of 31 s minutes of critical care time was devoted to this patient today, required to treat and/or prevent further deterioration of critical care condition ( as above ) . I am remotely monitoring this patient from another state. I am unable to do bedside exam, and history/physical and peritinent information is taken from other notes in the computer and bedside staff. I cannot take responsibility for the accuracy of this information. Sepsis Event Evaluation Height, Weight, BMI Height: 5'11.00" Weight: 324lbs. 0.0oz. 146.421586ns; 48.81 BMI Method:Stated Focused Exam Lactate Level 06/12/22 01:07: Lactic Acid Level 0.83 Exam Exam Patient acknowledged, consented, and participated in this virtual visit which was conducted using real time audio/video Vital Signs Date Time Temp Pulse Resp B/P (MAP) Pulse Ox O2 Delivery O2 Flow Rate FiO2 06/12/22 11:48 36.9 97 12 119/59 (79) 100 Room Air 06/12/22 11:00 101 119/59 (79) 99 Room Air 06/12/22 10:00 101 11 120/72 (88) 100 Room Air 06/12/22 09:00 98 16 116/62 (80) 99 Room Air 06/12/22 08:45 Room Air 100 06/12/22 08:15 36.4 06/12/22 08:00 92 25 153/65 (94) 97 Room Air 06/12/22 07:00 102 06/12/22 07:00 99 28 157/100 (119) 98 Room Air 06/12/22 06:00 101 26 154/91 (112) 94 Room Air 06/12/22 05:00 97 27 154/90 (111) 97 Room Air 06/12/22 04:00 Room Air 97 06/12/22 04:00 93 28 155/82 (106) 98 Room Air 06/12/22 03:56 36.7 06/12/22 03:00 91 24 155/83 (107) 97 Room Air 06/12/22 02:00 93 27 135/63 (87) 97 Room Air 06/12/22 01:03 36.8 06/12/22 01:00 93 24 143/80 (101) 100 Room Air 06/12/22 00:02 93 06/12/22 00:00 100 135/76 (95) 99 Room Air 06/11/22 23:59 Room Air 97 06/11/22 23:00 90 25 113/55 (74) 97 Room Air 06/11/22 22:00 97 15 136/72 (93) 97 Room Air 06/11/22 21:00 98 16 123/74 (90) 99 Room Air 06/11/22 20:00 98 22 122/64 (83) 97 Room Air 06/11/22 20:00 Room Air 97 06/11/22 19:33 36.6 06/11/22 19:00 115 21 158/66 (96) 97 Room Air 06/11/22 18:43 115 06/11/22 18:00 101 26 143/78 (99) 83 Room Air 06/11/22 17:00 96 22 174/90 (118) 94 Room Air 06/11/22 16:29 36.4 06/11/22 16:00 95 18 150/67 (94) 97 Room Air 06/11/22 15:40 Room Air 97 06/11/22 15:00 94 29 151/75 (100) 97 Room Air 06/11/22 14:00 101 21 148/76 (100) 96 Room Air 06/11/22 13:00 101 15 99 Room Air 06/11/22 13:00 105 06/11/22 12:14 36.0 06/11/22 12:13 Room Air 99 06/11/22 12:00 94 22 137/68 (91) 100 Room Air I & O 06/12/22 07:00 Intake Total 6200 ml Balance 6200 ml Height & Weight Height: 5'11.00" Weight: 324lbs. 0.0oz. 146.110639aw; 48.81 BMI Method:Stated General Appearance: Anxious, Mild Distress, Obese HEENT: PERRL/EOMI; No Scleral Icterus (L), No Scleral Icterus (R) Neck: Full Range of Motion, Non Tender, Supple Respiratory: No Chest Non Tender; Lungs Clear; No Accessory Muscle Use Cardiovascular: Regular Rate, Rhythm, No Gallop, No JVD Capillary Refill: Less Than 3 Seconds Extremity: Normal Range of Motion, Non Tender Neurologic/Psychiatric: Alert, Oriented x3, Depressed Affect Skin: Normal Color, Warm/Dry Lymphatic: No Adenopathy Results Lab Laboratory Tests 06/10/22 14:30 06/10/22 20:32 06/11/22 00:16 06/11/22 04:44 06/11/22 08:30 06/11/22 11:50 06/11/22 19:48 06/11/22 22:44 06/12/22 01:07 06/12/22 04:06 06/12/22 09:23 Assessment/Plan Assessment/Plan 1 JOSELYN ERICKSON MD Jun 12, 2022 11:56
[2022-06-12] MEDS ORDERED: METOCLOPRAMIDE INJ 10 MG/2 ML (REGLAN) IVP PRN (12:00)
[2022-06-12] MEDS: SUCRALFATE 1 GM (CARAFATE) TAB PO SCH ×3 (12:02→20:31)
[2022-06-12 12:28] LABS: POTASSIUM 3.3 MMOL/L (3.6-5.0)
[2022-06-12 12:29] LABS: CALCIUM 7.9 MG/DL (8.5-10.1)
[2022-06-12 12:33] LABS: CREATININE SERUM 0.75 MG/DL (0.60-1.30)
--- NOTE | 2022-06-12 12:33 | Progress Note - Hospitalist ---
CINDY JOHN 06/12/22 1233: Subjective HPI/CC On Admission Date Seen by Provider: Jun 12, 2022 Time Seen by Provider: 12:28 CC: DKA HPI: This is a 42yoWM [facility] patient who presents to ER with weakness and found to have DKA. Patient is sleeping and does not converse with me. Subjective/Events-last exam Patient is slowly improving in overall affect Still complains of indigestion/chest discomfort upon drinking fluids IV insulin maintained Still has not had a bowel movement, is urinating appropriately Patient is alert and oriented X3 Anxiety is well managed at this time No longer tachypneic, able to converse Focused Exam Lactate Level 06/12/22 01:07: Lactic Acid Level 0.83 Objective Exam Vital Signs Vital Signs Date Time Temp Pulse Resp B/P (MAP) Pulse Ox O2 Delivery O2 Flow Rate FiO2 06/12/22 12:08 Room Air 99 06/12/22 11:48 36.9 97 12 119/59 (79) 100 06/10/22 14:01 2.00 Capillary Refill : Less Than 3 Seconds General Appearance: Anxious (Improving from yesterday), Mild Distress, Obese HEENT: PERRL/EOMI; No Scleral Icterus (L), No Scleral Icterus (R) Neck: Full Range of Motion, Normal Inspection Respiratory: No Chest Non Tender (Mild tenderness to palpation); No Accessory Muscle Use Cardiovascular: Regular Rate, Rhythm, No Edema, No Gallop Gastrointestinal: Normal Bowel Sounds, Non Tender, Soft Rectal: Deferred Back: Normal Inspection, No CVA Tenderness Extremity: Normal Range of Motion, No Calf Tenderness Neurologic/Psychiatric: Alert, Oriented x3, Depressed Affect Skin: Normal Color, Warm/Dry Lymphatic: No Adenopathy Results/Procedures Lab Laboratory Tests 06/11/22 19:48 06/11/22 22:44 06/12/22 01:07 06/12/22 04:06 06/12/22 09:23 Patient resulted labs reviewed. Assessment/Plan Assessment and Plan Assess & Plan/Chief Complaint Type 1 DM with severe ketoacidosis without Coma-Improving Continue IVF- D5W maintained Continue IV insulin Monitor Potassium-holding steady Monitor ABG and Anion GAP Hourly Glucose checks- maintaining glucose around 200 currently Obtain Beta- Hydroxybutyrate values Pain Control- currently with oxycodone Hypophosphatemia Potassium phosphate ordered CATHIE Administer IVF Continue monitoring Monitor input/output DM Non-compliant Poorly Controlled COVID Positive Continue Supportive Care Monitor oxygen saturation HTN Monitor and Continue home medications (lisinopril) Amlodipine 5 mg Anxiety Ativan ordered- Administer if necessary Nausea/Vomiting Administer Zofran and Sucralfate GERD Administer calcium carbonate as needed Elevated Liver Enzymes Liver US 06-11-2022- Shows hepatomegaly with diffuse steatosis Peripheral Diabetic Neuropathy Continue gabapentin Arthritis Monitor Pain Continue at home tramadol if needed Hyperkalemia Dyspnea/Kussmal Breathing DVT prophylaxis Administer Lovenox Morbid Obesity BMI 49 RADHA ROCHA DO 06/13/22 0746: Assessment/Plan Assessment and Plan Assess & Plan/Chief Complaint Slow resolution of severe DKA Supervisory-Addendum Brief Verification & Attestation Participated in pt care: history, MDM, physical Personally performed: exam, history, MDM, supervision of care Care discussed with: Medical Student Procedures: n/a Results interpretation: Verified all documentation Verification and Attestation of Medical Student E/M Service A medical student performed and documented this service in my presence. I reviewed and verified all information documented by the medical student and made modifications to such information, when appropriate. I personally performed the physical exam and medical decision making. Radha Rocha, Jun 13, 2022,07:46 CINDY JOHN Jun 12, 2022 12:33 RADHA ROCHA DO Jun 13, 2022 07:46
[2022-06-12] MEDS: inSUlin ASPART (NovoLOG) 1 UNIT/0.01 ML (CHARGE PER UNIT) SC SCH ×2 (15:28→20:33)
[2022-06-13 05:16] LABS: BASOPHILS % (AUTO) 0 % (0-10); EOSINOPHILS % (AUTO) 1 % (0-10); HEMOGLOBIN 12.7 g/dL (13.3-17.7); MONOCYTES # (AUTO) 0.5 10^3/uL (0.0-1.0)
[2022-06-13 05:18] LABS: HEMATOCRIT 35 % (40-54); LYMPHOCYTES # (AUTO) 1.5 10^3/uL (1.0-4.0); LYMPHOCYTES % (AUTO) 43 % (12-44); MEAN CORPUSCULAR HEMOGLOBIN 30 pg (25-34); MEAN CORPUSCULAR HGB CONC 36 g/dL (32-36); MEAN CORPUSCULAR VOLUME 84 fL (80-99); MEAN PLATELET VOLUME 10.1 fL (9.0-12.2); MONOCYTES % (AUTO) 14 % (0-12); NEUTROPHILS # (AUTO) 1.4 10^3/uL (1.8-7.8); NEUTROPHILS % (AUTO) 42 % (42-75); PLATELET COUNT 111 10^3/uL (130-400); WHITE BLOOD COUNT 3.4 10^3/uL (4.3-11.0)
[2022-06-13 05:35] LABS: ALBUMIN 2.9 GM/DL (3.2-4.5); BILIRUBIN,TOTAL 0.7 MG/DL (0.1-1.0); CALCIUM 8.4 MG/DL (8.5-10.1); CREATININE SERUM 0.77 MG/DL (0.60-1.30); MAGNESIUM 1.8 MG/DL (1.6-2.4); POTASSIUM 3.6 MMOL/L (3.6-5.0)
[2022-06-13] MEDS: MAGNESIUM 1 GM/100 ML IVPB 100 ML IV SCH (05:41)
[2022-06-13] MEDS: POTASSIUM CL 10MEQ/50ML IVPB 50 ML IV SCH (05:42)
[2022-06-13] MEDS: KCL 20 MEQ TAB (K-DUR) PO SCH (05:44)
[2022-06-13] MEDS ORDERED: KCL 20 MEQ TAB (K-DUR) PO ONE (05:45)
[2022-06-13] MEDS: POT PHOS/NA PHOS (K-PHOS NEUTRAL) PO SCH ×3 (06:57→17:07)
[2022-06-13] MEDS: inSUlin ASPART (NovoLOG) 1 UNIT/0.01 ML (CHARGE PER UNIT) SC SCH (06:58)
[2022-06-13] MEDS: ENOXAPARIN 40 MG/0.4 ML (LOVENOX) SYR SC SCH ×2 (06:58→18:06)
[2022-06-13] MEDS: SUCRALFATE 1 GM (CARAFATE) TAB PO SCH ×4 (06:58→19:53)
--- NOTE | 2022-06-13 07:55 | Progress Note - Hospitalist ---
Subjective HPI/CC On Admission Date Seen by Provider: Jun 13, 2022 Time Seen by Provider: 10:30 CC: DKA HPI: This is a 42yoWM [facility] patient who presents to ER with weakness and found to have DKA. Patient is sleeping and does not converse with me. Subjective/Events-last exam Patient doing well Eating well Moving around better We will move to fourth floor Review of Systems Musculoskeletal: leg pain Focused Exam Lactate Level 06/12/22 01:07: Lactic Acid Level 0.83 Objective Exam Vital Signs Vital Signs Date Time Temp Pulse Resp B/P (MAP) Pulse Ox O2 Delivery O2 Flow Rate FiO2 06/14/22 04:49 36.7 76 20 111/69 (83) 94 Room Air 06/13/22 04:00 96 06/10/22 14:01 2.00 Capillary Refill : Less Than 3 Seconds General Appearance: No Apparent Distress, WD/WN, Chronically ill Respiratory: Lungs Clear, Normal Breath Sounds Cardiovascular: Regular Rate, Rhythm Neurologic/Psychiatric: Alert, Oriented x3 Results/Procedures Lab Laboratory Tests 06/14/22 05:00 Patient resulted labs reviewed. Assessment/Plan Assessment and Plan Assess & Plan/Chief Complaint Assessment: DKA COVID-19 Plan: Moved to fourth floor Critical Care Critically Ill Patient JOSEFINAZACH FERNANDEZ Jun 13, 2022 07:55
[2022-06-13] MEDS: lisINopril 40 MG (PRINIVIL) TABLET PO SCH (08:41)
[2022-06-13] MEDS: DOCUSATE SODIUM 100 MG (COLACE) CAP PO SCH ×2 (08:41→19:53)
[2022-06-13] MEDS: SENNOSIDES 8.6 MG (SENOKOT) TAB PO SCH ×2 (08:41→19:54)
[2022-06-13] MEDS: PREGABALIN 150 MG (LYRICA) CAPSULE PO SCH ×2 (08:42→19:53)
[2022-06-13] MEDS: ASPIRIN E.C. 81 MG (ECOTRIN) TAB PO SCH (08:42)
[2022-06-13] MEDS: amLODIPine 5 MG (NORVASC) TAB PO SCH (08:42)
[2022-06-13] MEDS ORDERED: inSUlin (REGULAR) HUMAN 1 UNIT/0.01 ML (CHARGE PER UNIT) ONE (12:02)
[2022-06-13] MEDS: NS IV 1000 ML 1,000 ML IV SCH ×2 (12:12→22:18)
[2022-06-13 14:38] VITALS: BP 118/75
[2022-06-13] MEDS ORDERED: inSUlin ASPART (NovoLOG) 1 UNIT/0.01 ML (CHARGE PER UNIT) SC SCH (16:00)
[2022-06-13] MEDS ORDERED: inSUlin (REGULAR) HUMAN 1 UNIT/0.01 ML (CHARGE PER UNIT) SC SCH (16:00)
[2022-06-13] MEDS: inSUlin (REGULAR) HUMAN 1 UNIT/0.01 ML (CHARGE PER UNIT) SC SCH ×2 (17:07→21:16)
[2022-06-13] MEDS: ACETAMINOPHEN 325 MG TABLET PO PRN ×2 (17:18→22:22)
[2022-06-14 05:10] LABS: BASOPHILS % (AUTO) 0 % (0-10); EOSINOPHILS % (AUTO) 1 % (0-10); MEAN CORPUSCULAR HEMOGLOBIN 30 pg (25-34); MEAN PLATELET VOLUME 10.6 fL (9.0-12.2)
[2022-06-14 05:12] LABS: HEMATOCRIT 34 % (40-54); HEMOGLOBIN 12.2 g/dL (13.3-17.7); LYMPHOCYTES # (AUTO) 1.1 10^3/uL (1.0-4.0); LYMPHOCYTES % (AUTO) 35 % (12-44); MEAN CORPUSCULAR HGB CONC 36 g/dL (32-36); MEAN CORPUSCULAR VOLUME 84 fL (80-99); MONOCYTES # (AUTO) 0.5 10^3/uL (0.0-1.0); MONOCYTES % (AUTO) 16 % (0-12); NEUTROPHILS # (AUTO) 1.4 10^3/uL (1.8-7.8); NEUTROPHILS % (AUTO) 46 % (42-75); PLATELET COUNT 103 10^3/uL (130-400); WHITE BLOOD COUNT 3.1 10^3/uL (4.3-11.0)
[2022-06-14 05:30] LABS: ALBUMIN 2.9 GM/DL (3.2-4.5); BILIRUBIN,TOTAL 0.4 MG/DL (0.1-1.0); CALCIUM 8.6 MG/DL (8.5-10.1); CREATININE SERUM 0.71 MG/DL (0.60-1.30); MAGNESIUM 1.8 MG/DL (1.6-2.4); POTASSIUM 2.8 MMOL/L (3.6-5.0)
[2022-06-14] MEDS: SUCRALFATE 1 GM (CARAFATE) TAB PO SCH ×2 (05:40→11:53)
[2022-06-14] MEDS: ENOXAPARIN 40 MG/0.4 ML (LOVENOX) SYR SC SCH (05:40)
[2022-06-14] MEDS: POT PHOS/NA PHOS (K-PHOS NEUTRAL) PO SCH (05:40)
[2022-06-14] MEDS ORDERED: MAGNESIUM 1 GM/100 ML IVPB 100 ML IV ONE (07:00)
[2022-06-14] MEDS ORDERED: inSUlin (REGULAR) HUMAN 1 UNIT/0.01 ML (CHARGE PER UNIT) SC NR (08:00)
[2022-06-14] MEDS: inSUlin (REGULAR) HUMAN 1 UNIT/0.01 ML (CHARGE PER UNIT) SC SCH (08:04)
[2022-06-14] MEDS: POTASSIUM CL 10MEQ/50ML IVPB 50 ML IV SCH ×4 (08:16→11:53)
[2022-06-14] MEDS: ASPIRIN E.C. 81 MG (ECOTRIN) TAB PO SCH (08:18)
[2022-06-14] MEDS: KCL 20 MEQ TAB (K-DUR) PO SCH ×3 (08:18→11:53)
[2022-06-14] MEDS: PREGABALIN 150 MG (LYRICA) CAPSULE PO SCH (08:18)
[2022-06-14] MEDS: lisINopril 40 MG (PRINIVIL) TABLET PO SCH (08:18)
[2022-06-14] MEDS: amLODIPine 5 MG (NORVASC) TAB PO SCH (08:18)
[2022-06-14] MEDS: SENNOSIDES 8.6 MG (SENOKOT) TAB PO SCH (08:18)
[2022-06-14] MEDS: DOCUSATE SODIUM 100 MG (COLACE) CAP PO SCH ×2 (08:18→08:27)
[2022-06-14] MEDS: NS IV 1000 ML 1,000 ML IV SCH (08:19)
[2022-06-14] MEDS ORDERED: inSUlin (REGULAR) HUMAN 1 UNIT/0.01 ML (CHARGE PER UNIT) SC SCH (11:00)
[2022-06-14] MEDS ORDERED: INSU500I SC (12:17)
[2022-06-14] MEDS ORDERED: ALBU8.5H9 IH (12:17)
[2022-06-14] MEDS ORDERED: POTA-177 PO (12:18)
--- NOTE | 2022-06-14 12:19 | Discharge Summary ---
Discharge Summary Hospital Course Was the Problem List Reviewed?: Yes Problems/Dx: (1) Diabetic ketoacidosis Status: Acute Qualifiers: Qualified Codes: E10.10 - Type 1 diabetes mellitus with ketoacidosis without coma (2) COVID-19 Status: Acute Hospital Course Date of Admission: Jun 10, 2022 at 13:03 Admission Diagnosis : Family Physician/Provider: Kings Connolly DO Date of Discharge: 06/14/22 Discharge Diagnosis: DKA, COVID Hospital Course: Lengthy course after admitted for N/V and diagnosed with DKA and COVID. DKA pro tocol maintained with good results although it took several days. Moved to 4th floor and required extensive potassium supplement along with decreased home insulin dosing and he was deemed stable for DC. Labs and Pending Lab Test: Laboratory Tests 06/14/22 05:00: White Blood Count 3.1L, Red Blood Count 4.09L, Hemoglobin 12.2L, Hematocrit 34L, Mean Corpuscular Volume 84, Mean Corpuscular Hemoglobin 30, Mean Corpuscular Hemoglobin Concent 36, Red Cell Distribution Width 12.9, Platelet Count 103L, Mean Platelet Volume 10.6, Immature Granulocyte % (Auto) 2, Neutrophils (%) (Auto) 46, Lymphocytes (%) (Auto) 35, Monocytes (%) (Auto) 16H, Eosinophils (%) (Auto) 1, Basophils (%) (Auto) 0, Neutrophils # (Auto) 1.4L, Lymphocytes # (A uto) 1.1, Monocytes # (Auto) 0.5, Eosinophils # (Auto) 0.0, Basophils # (Auto) 0.0, Immature Granulocyte # (Auto) 0.1, Percent Immature Platelet Fraction 5.1, Sodium Level 143, Potassium Level 2.8L, Chloride Level 113H, Carbon Dioxide Level 21, Anion Gap 9, Blood Urea Nitrogen 8, Creatinine 0.71, Estimat Glomerular Filtration Rate 116, BUN/Creatinine Ratio 11, Glucose Level 60*L, Calcium Level 8.6, Corrected Calcium 9.5, Magnesium Level 1.8, Total Bilirubin 0.4, Aspartate Amino Transf (AST/SGOT) 48H, Alanine Aminotransferase (ALT/SGPT) 69H, Alkaline Phosphatase 62, Total Protein 5.0L, Albumin 2.9L 06/14/22 06:50: Glucometer 160H 06/14/22 10:35: Glucometer 286H Home Meds Active Potassium Chloride 10 Meq Tab.er.prt 10 Meq PO BID Proair Hfa (Albuterol Sulfate) 90 Mcg Hfa.aer.ad 0 Gm IH RTQ4HR PRN 2 puffs q4hrs prn Humulin R U-500 Kwikpen (Insulin Regular, Human) 500/Ml (3) Insuln.pen 200 Units SC AC 5 Days 30 units before meals until you ralk to your clinic doctor Reported Ondansetron Odt (Ondansetron) 8 Mg Tab.rapdis 8 Mg PO Q8H PRN Sucralfate 1 Gram Tablet 1 Gm PO ACHS Tizanidine HCl 4 Mg Tablet 4 Mg PO TID PRN Dicyclomine HCl 20 Mg Tablet 20 Mg PO QID PRN Januvia (Sitagliptin Phosphate) 100 Mg Tablet 100 Mg PO DAILY LAST FILLED 02-02-2022 #90/90 DAY SUPPLY Hydroxyzine HCl 50 Mg Tablet 50 Mg PO TID PRN Amlodipine Besylate 5 Mg Tablet 5 Mg PO DAILY Lisinopril 40 Mg Tablet 40 Mg PO DAILY Cetirizine HCl 10 Mg Tablet 10 Mg PO DAILY PRN Aspirin EC (Aspirin) 81 Mg Tablet.dr 81 Mg PO DAILY Hydrochlorothiazide 25 Mg Tablet 25 Mg PO DAILY PRN Fluticasone Propionate 16 Gm [place].susp 1 [place] NSEACH DAILY PRN Chlorhexidine Gluconate 0.12 % Mouthwash 15 Ml PO UD PRN Pregabalin 150 Mg Capsule 150 Mg PO BID Pantoprazole Sodium 40 Mg Tablet.dr 40 Mg PO DAILY PRN Assessment/Pt Instructions PCP 1 week Discharge Planning: <30 minutes discharge planning Discharge Physical Examination Vital Signs Vital Signs Date Time Temp Pulse Resp B/P (MAP) Pulse Ox O2 Delivery O2 Flow Rate FiO2 06/14/22 11:27 36.8 99 18 143/81 (101) 97 Room Air 06/14/22 09:23 0.00 06/13/22 04:00 96 General Appearance: No Apparent Distress, WD/WN Allergies: Coded Allergies: sertraline (Verified Allergy, Severe, RASH, SWELLING, 04/09/20) "FELT LOOPY" bupropion (Verified Allergy, Unknown, "CAUSED ME TO BANG MY HEAD ON THE W ALL", 04/09/20) buspirone (Verified Allergy, Unknown, THROAT SWELLED, 04/09/20) cephalexin (Verified Allergy, Unknown, HIVES, 04/09/20) codeine (Verified Allergy, Unknown, pt tolerated morphine in past, 06/10/22) sulfamethoxazole (Verified Adverse Reaction, Unknown, Itching, 04/09/20) trimethoprim (Verified Adverse Reaction, Unknown, Itching, 04/09/20) Discharge Summary Date of Admission Jun 10, 2022 at 13:03 Date of Discharge Discharge Date: Jun 14, 2022 Admission Diagnosis DKA Plan: ICU Insulin drip Monitor closely Discharge Diagnosis Assessment: DKA COVID-19 Plan: Moved to fourth floor ZACH ROCHA DO Jun 14, 2022 12:19
[2022-06-14 15:56] VITALS: BP 143/81
--- NOTE | 2022-06-15 11:06 | Physician Query Clarification ---
PQ-Uncertain Diagnosis Admission/Discharge Admission Date: Jun 10, 2022 at 13:03 Discharge Date: Jun 14, 2022 at 15:55 The medical record reflects the following clinical scenario: History/Risk Factors: dyspnea, covid Clinical Findings: echo LVEF 55-60% Treatment: room air, lasix Question: Is ACUTE ON CHRONIC HYPERCARBARIC RESPIRATORY FAILURE WITH ACUTE DIASTOLIC HEART FAILURE, PRESENT ON ADMISSION a clinically valid diagnosis? ACUTE ON CHRONIC HYPERCARBARIC RESPIRATORY FAILURE WITH ACUTE DIASTOLIC HEART FAILURE was documented in the 06/12 Dr Cortez progress note with no further documentation in the medical record. Please document a response in Progress Note or Discharge Summary. 1. Yes, clinically valid. 2. No. 3. Other, with explanation of clinical findings. 4. Undetermined, no explanation for clinical findings. PHYSICIAN RESPONSE Diagnosis clinically valid: Yes, Conditon resolved In responding to this query, please exercise your independent professional judgment. The purpose of this communication is to more accurately reflect the complexity of your patients condition. The fact that a question is asked does not imply that any particular answer is desired or expected. Thank you for your timely response to this clarification. Requestors name: Soheila THIS PHYSICIAN QUERY FORM IS A PERMANENT PART OF THE MEDICAL RECORD SOHEILA GIBBS Jun 15, 2022 11:06 ZACH ROCHA DO Jun 16, 2022 05:21
--- NOTE | 2022-06-15 11:27 | Physician Query Clarification ---
PQ-Conflicting Diagnosis Admission/Discharge Admission Date: Jun 10, 2022 at 13:03 Discharge Date: Jun 14, 2022 at 15:55 The medical record reflects the following clinical scenario: History/Risk Factors: diabetic ketoacidosis Clinical Findings: diabetic ketoacidosis Treatment: IV insulin Question: Can you clarify if patient has TYPE 1 or TYPE 2 diabetes? Assessment and final dx states Type 1 Diabetic ketoacidosis. PMH states type 2 diagnosed in his 20's. Please document a response in Progress Note or Discharge Summary. 1. Diabetes Mellitis TYPE 1 2. Diabetes Mellitis TYPE 2 3. Other, with explanation of clinical findings 4. Clinically undetermined, no explanation for clinical findings. PHYSICIAN RESPONSE Do you agree w/Consulting Dx?: Other,explanation/clincal findings (lawson d je) In responding to this query, please exercise your independent professional judgment. The purpose of this communication is to more accurately reflect the complexity of your patients condition. The fact that a question is asked does not imply that any particular answer is desired or expected. Thank you for your timely response to this clarification. Requestors name: Soheila THIS PHYSICIAN QUERY FORM IS A PERMANENT PART OF THE MEDICAL RECORD SOHEILA GIBBS Jun 15, 2022 11:27 ZACH ROCHA DO Jun 16, 2022 05:23
== END 2022-06-14 15:55 | disposition home or self-care (01) | DRG 637 ==
LOC: EDUNIT# 08:09 → ER 08:10 → ICU 13:03 → 4TH 06-13 12:04
PROVIDERS: ADMIT Internal Medicine; ATTEND Internal Medicine
DX: E13.10 Other specified diabetes mellitus with ketoacidosis without coma (principal); U07.1 COVID-19; J96.22 Acute and chronic respiratory failure with hypercapnia; I50.31 Acute diastolic (congestive) heart failure; N17.9 Acute kidney failure, unspecified; Z68.42 Body mass index [BMI] 45.0-49.9, adult; F84.0 Autistic disorder; E66.2 Morbid (severe) obesity with alveolar hypoventilation; I11.0 Hypertensive heart disease with heart failure; F41.9 Anxiety disorder, unspecified; E87.5 Hyperkalemia; M19.90 Unspecified osteoarthritis, unspecified site; J45.909 Unspecified asthma, uncomplicated; E78.00 Pure hypercholesterolemia, unspecified; F90.9 Attention-deficit hyperactivity disorder, unspecified type; F32.A Depression, unspecified; E13.40 Other specified diabetes mellitus with diabetic neuropathy, unspecified; K21.9 Gastro-esophageal reflux disease without esophagitis; E86.0 Dehydration; E83.39 Other disorders of phosphorus metabolism; K76.0 Fatty (change of) liver, not elsewhere classified; R16.0 Hepatomegaly, not elsewhere classified; Z79.4 Long term (current) use of insulin; Z88.5 Allergy status to narcotic agent; Z88.8 Allergy status to other drugs, medicaments and biological substances; Z79.899 Other long term (current) drug therapy; Z79.82 Long term (current) use of aspirin; Z28.310 Unvaccinated for COVID-19; Z73.0 Burn-out; Z91.19 Patient's noncompliance with other medical treatment and regimen
CPT/HCPCS: 36410; 36415; 71045; 76705; 76937; 80048; 80053; 80076; 81000; 82010; 82805; 82947; 83036; 83605; 83690; 83735; 84100; 84484; 85025; 96361; 96372; 96374; 96375; 99291

== ENCOUNTER 2022-09-25 21:36 | Emergency (ER) | payer MEDICARE, MEDICAID ==
[~2022-09-25] VITALS: Ht 177.8 cm; Wt 147.0 kg
[~2022-09-25 21:36] MED LIST changes: +ALBU8.5H9 IH; +AMLO-250 PO; +DICY20TA PO; +LISI40TA9 PO; +POTA-177 PO; +SITA100T12 PO; +SUCR1TAB PO
--- NOTE | 2022-09-25 21:57 | ED General ---
General Stated Complaint: DKA Source of Information: Patient Exam Limitations: No Limitations History of Present Illness Date Seen by Provider: Sep 25, 2022 Time Seen by Provider: 21:41 Initial Comments 42-year-old male with past medical history of IDDM most notably coming in due to concerns for being in DKA. He uses insulin 3 times a day, he believes he is supposed to be on another form of injectable insulin, but he does not do that. He also does a weekly injectable Mounjaro (tirzepatide) for weight loss and diabetes. He has lost roughly 15-20 pounds in the past month with this. He states he has been sick with some GI symptoms of nausea and general discomfort since being on the Mounjaro. He has not been taking his blood sugar for the past several days because of this, giving himself insulin intermittently. He states his glucose was in the 300s around 6 PM tonight. He gave himself 200 units of mealtime insulin like he was supposed to, and when his insulin did not go down he gave himself 150 units after that and it brought his sugar down to the 100s. He states he was showing ketones in his urine. States his tongue feels very dry. Otherwise denies any chest pain, shortness of breath, severe abdominal pain, diarrhea, dysuria, weakness, numbness, headache, vision changes, or any other concerns. Allergies and Home Medications Allergies Coded Allergies: sertraline (Verified Allergy, Severe, RASH, SWELLING, 04/09/20) "FELT LOOPY" bupropion (Verified Allergy, Unknown, "CAUSED ME TO BANG MY HEAD ON THE WALL", 04/09/20) buspirone (Verified Allergy, Unknown, THROAT SWELLED, 04/09/20) cephalexin (Verified Allergy, Unknown, HIVES, 04/09/20) codeine (Verified Allergy, Unknown, pt tolerated morphine in past, 06/10/22) sulfamethoxazole (Verified Adverse Reaction, Unknown, Itching, 04/09/20) trimethoprim (Verified Adverse Reaction, Unknown, Itching, 04/09/20) Patient Home Medication List Home Medication List Reviewed: Yes Albuterol Sulfate (Proair Hfa) 90 Mcg Hfa.aer.ad, 0 GM IH RTQ4HR PRN for SHORTNESS OF BREATH Prescribed by: ZACH ROCHA on 06/14/22 1217 Amlodipine Besylate (Amlodipine Besylate) 5 Mg Tablet, 5 MG PO DAILY, (Reported) Entered as Reported by: ZACHARY HATCH on 06/11/22 105 Aspirin (Aspirin EC) 81 Mg Tablet.dr, 81 MG PO DAILY, (Reported) Entered as Reported by: SABAS SILVA on 09/29/21 141 Cetirizine HCl (Cetirizine HCl) 10 Mg Tablet, 10 MG PO DAILY PRN for ALLERGIES, (Reported) Entered as Reported by: SABAS SILVA on 09/29/21 141 Chlorhexidine Gluconate (Chlorhexidine Gluconate) 0.12 % Mouthwash, 15 ML PO UD PRN for ORAL HEALTH, (Reported) Entered as Reported by: SABAS SILVA on 09/29/21 141 Dicyclomine HCl (Dicyclomine HCl) 20 Mg Tablet, 20 MG PO QID PRN for GI SPASMS, (Reported) Entered as Reported by: ZACHARY HATCH on 06/11/22 105 Fluticasone Propionate (Fluticasone Propionate) 16 Gm [place].susp, 1 SPRAY NSEACH DAILY PRN for ALLERGIES, (Reported) Entered as Reported by: SABAS SILVA on 09/29/21 141 Hydrochlorothiazide (Hydrochlorothiazide) 25 Mg Tablet, 25 MG PO DAILY PRN for FLUID RETENTION, (Reported) Entered as Reported by: SABAS SILVA on 09/29/21 141 Hydroxyzine HCl (Hydroxyzine HCl) 50 Mg Tablet, 50 MG PO TID PRN for ANXIETY, (Reported) Entered as Reported by: ZACHARY HATCH on 06/11/22 105 Insulin Regular, Human (Humulin R U-500 Kwikpen) 500/Ml (3) Insuln.pen, 200 UNITS SC AC Prescribed by: ZACH ROCHA on 06/14/22 1217 Lisinopril (Lisinopril) 40 Mg Tablet, 40 MG PO DAILY, (Reported) Entered as Reported by: ZACHARY HATCH on 06/11/22 1055 Ondansetron (Ondansetron Odt) 8 Mg Tab.rapdis, 8 MG PO Q8H PRN for NAUSEA/VOMITING-1ST LINE, (Reported) Entered as Reported by: ZACHARY HATCH on 06/11/22 1129 Pantoprazole Sodium (Pantoprazole Sodium) 40 Mg Tablet.dr, 40 MG PO DAILY PRN for HEARTBURN, (Reported) Entered as Reported by: TRISTON BETH on 04/09/20 1431 Potassium Chloride (Potassium Chloride) 10 Meq Tab.er.prt, 10 MEQ PO BID Prescribed by: ZACH ROCHA on 06/14/22 1218 Pregabalin (Pregabalin) 150 Mg Capsule, 150 MG PO BID, (Reported) Entered as Reported by: ZACHARY HATCH on 12/04/20 1538 Sitagliptin Phosphate (Januvia) 100 Mg Tablet, 100 MG PO DAILY, (Reported) Entered as Reported by: ZACHARY HATCH on 06/11/22 1055 Sucralfate (Sucralfate) 1 Gram Tablet, 1 GM PO ACHS, (Reported) Entered as Reported by: ZACHARY HATCH on 06/11/22 1129 Tizanidine HCl (Tizanidine HCl) 4 Mg Tablet, 4 MG PO TID PRN for MUSCLE SPASMS, (Reported) Entered as Reported by: ZACHARY HATCH on 06/11/22 1055 Review of Systems Review of Systems Constitutional: No fever EENTM: no symptoms reported Respiratory: no symptoms reported Cardiovascular: no symptoms reported Gastrointestinal: see HPI Genitourinary: no symptoms reported Musculoskeletal: no symptoms reported Skin: no symptoms reported Psychiatric/Neurological: No Symptoms Reported Hematologic/Lymphatic: No Symptoms Reported Immunological/Allergic: no symptoms reported All Other Systems Reviewed Negative Unless Noted: Yes Past Jujyuot-Zukjrq-Epslrr Hx Patient Social History Tobacco Use?: No Immunizations Up To Date Tetanus Booster (TDap): More than 5yrs PED Vaccines UTD: No First/Initial COVID19 Vaccinat: NONE Second COVID19 Vaccination Sundar: NONE Third COVID19 Vaccination Date: NONE Seasonal Allergies Seasonal Allergies: Yes Past Medical History Surgery/Hospitalization HX: testicular, cholecystectomy hypogonadism, asthma, high cholesterol, htn, gerd, neuropathy, obesity, iddm, adhd, anx/dep, Surgeries: Yes (HYPOGONADISM SURGERY INFANT; ENDOSCOPIES) Gallbladder, Testicular Respiratory: Yes Asthma Currently Using CPAP: No Currently Using BIPAP: No Cardiac: Yes High Cholesterol, Hypertension, Palpitations Neurological: Yes Neuropathy Reproductive Disorders: Yes (HYPOGONADISM sx as an ) Sexually Transmitted Disease: No HIV/AIDS: No Genitourinary: No Gastrointestinal: Yes (ENDOSCOPIES) Gastroesophageal Reflux, Diverticulosis, Esophagitis Musculoskeletal: Yes Arthritis Endocrine: Yes (MORBID OBESITY; DM TYPE 2 (INSULIN AND PO)) Diabetes, Insulin dep HEENT: Yes (GLASSES) Loss of Vision: Denies Hearing Impairment: Denies Cancer: No Psychosocial: Yes ADD/ADHD, Anxiety, Depression Integumentary: No Blood Disorders: No Adverse Reaction/Blood Tranf: No (N/A) Family Medical History Arthritis 19 MOTHER Congenital heart disease Diabetes mellitus 19 FATHER 19 MOTHER FH: brain aneurysm 19 FATHER (cause of - 09/13/2015) Glaucoma 19 FATHER Hypertension 19 FATHER 19 MOTHER Psychosocial problem 19 MOTHER (depression) No Pertinent Family Hx Physical Exam Vital Signs Vital Signs - First Documented 09/25/22 21:40 Temp 36.6 Pulse 126 Resp 16 B/P (MAP) 149/91 (110) Pulse Ox 95 Capillary Refill : Height, Weight, BMI Height: 5'11.00" Weight: 324lbs. 0.0oz. 146.832002fh; 48.81 BMI Method:Stated General Appearance: No Apparent Distress, WD/WN Eyes: Bilateral Eye Normal Inspection HEENT: PERRL/EOMI, Normal ENT Inspection, Pharynx Normal Neck: Full Range of Motion, Normal Inspection, Non Tender, Supple Respiratory: Chest Non Tender, Lungs Clear, Normal Breath Sounds, No Accessory Muscle Use, No Respiratory Distress Cardiovascular: No Edema, Normal Peripheral Pulses, Tachycardia Gastrointestinal: Normal Bowel Sounds, Non Tender, Soft; No Guarding Back: Normal Inspection, No CVA Tenderness Extremity: Normal Capillary Refill, Normal Inspection, Normal Range of Motion, Non Tender, No Calf Tenderness, No Pedal Edema Neurologic/Psychiatric: Alert, Oriented x3, No Motor/Sensory Deficits, Normal Mood/Affect Skin: Normal Color, Warm/Dry Lymphatic: No Adenopathy Progress/Results/Core Measures Suspected Sepsis SIRS Temperature: Pulse: Respiratory Rate: Laboratory Tests 09/25/22 21:50: White Blood Count 9.3 Blood Pressure / Mean: Laboratory Tests 09/25/22 21:50: Creatinine 0.94, Platelet Count 213, Total Bilirubin 0.4 Results/Orders Lab Results Laboratory Tests Test 09/25/22 21:50 09/25/22 21:56 Range/Units White Blood Count 9.3 4.3-11.0 10^3/uL Red Blood Count 5.50 4.30-5.52 10^6/uL Hemoglobin 16.2 13.3-17.7 g/dL Hematocrit 45 40-54 % Mean Corpuscular Volume 82 80-99 fL Mean Corpuscular Hemoglobin 30 25-34 pg Mean Corpuscular Hemoglobin Concent 36 32-36 g/dL Red Cell Distribution Width 11.9 10.0-14.5 % Platelet Count 213 130-400 10^3/uL Mean Platelet Volume 11.2 9.0-12.2 fL Immature Granulocyte % (Auto) 1 % Neutrophils (%) (Auto) 56 42-75 % Lymphocytes (%) (Auto) 32 12-44 % Monocytes (%) (Auto) 9 0-12 % Eosinophils (%) (Auto) 2 0-10 % Basophils (%) (Auto) 1 0-10 % Neutrophils # (Auto) 5.2 1.8-7.8 10^3/uL Lymphocytes # (Auto) 3.0 1.0-4.0 10^3/uL Monocytes # (Auto) 0.8 0.0-1.0 10^3/uL Eosinophils # (Auto) 0.2 0.0-0.3 10^3/uL Basophils # (Auto) 0.1 0.0-0.1 10^3/uL Immature Granulocyte # (Auto) 0.1 0.0-0.1 10^3/uL Venous Blood pH 7.40 7.31-7.41 Venous Blood Partial Pressure CO2 35 L 40-52 MMHG Venous Blood HCO3 21 L 22-28 MMOL/L Sodium Level 135 135-145 MMOL/L Potassium Level 4.1 3.6-5.0 MMOL/L Chloride Level 103 98-107 MMOL/L Carbon Dioxide Level 18 L 21-32 MMOL/L Anion Gap 14 5-14 MMOL/L Blood Urea Nitrogen 20 H 7-18 MG/DL Creatinine 0.94 0.60-1.30 MG/DL Estimat Glomerular Filtration Rate 103 BUN/Creatinine Ratio 21 Glucose Level 223 H 70-105 MG/DL Calcium Level 10.1 8.5-10.1 MG/DL Corrected Calcium 9.9 8.5-10.1 MG/DL Magnesium Level 2.0 1.6-2.4 MG/DL Total Bilirubin 0.4 0.1-1.0 MG/DL Aspartate Amino Transf (AST/SGOT) 45 H 5-34 U/L Alanine Aminotransferase (ALT/SGPT) 56 H 0-55 U/L Alkaline Phosphatase 84 40-136 U/L Total Protein 7.6 6.4-8.2 GM/DL Albumin 4.2 3.2-4.5 GM/DL Lipase 79 H 8-78 U/L Urine Color YELLOW Urine Clarity SL CLOUDY Urine pH 6.0 5-9 Urine Specific [place] >=1.030 1.016-1.022 Urine Protein 1+ H NEGATIVE Urine Glucose (UA) 3+ H NEGATIVE Urine Ketones 3+ H NEGATIVE Urine Nitrite NEGATIVE NEGATIVE Urine Bilirubin NEGATIVE NEGATIVE Urine Urobilinogen 0.2 < = 1.0 MG/DL Urine Leukocyte Esterase TRACE H NEGATIVE Urine RBC (Auto) 2+ H NEGATIVE Urine RBC 10-25 H /HPF Urine WBC 5-10 H /HPF Urine Squamous Epithelial Cells 5-10 /HPF Urine Crystals PRESENT H /LPF Urine Calcium Oxalate Crystals MODERATE H /LPF Urine Bacteria FEW H /HPF Urine Casts NONE /LPF Urine Mucus NEGATIVE /LPF Urine Culture Indicated YES Influenza Type A (RT-PCR) Not Detected Not Detecte Influenza Type B (RT-PCR) Not Detected Not Detecte SARS-CoV-2 RNA (RT-PCR) Not Detected Not Detecte My Orders Orders - JUDAH CULLEN MD Cbc With Automated Diff (09/25/22 21:51) Comprehensive Metabolic Panel (09/25/22 21:51) Lipase (09/25/22 21:51) Magnesium (09/25/22 21:51) Ua Culture If Indicated (09/25/22 21:51) Influenza A And B By Pcr (09/25/22 21:51) Accucheck Stat ONCE (09/25/22 21:51) Covid 19 Inhouse Test (09/25/22 21:51) Ed Iv/Invasive Line Start (09/25/22 21:51) Lactated Ringers (Lr 1000 Ml Iv Solution (09/25/22 22:00) Acetaminophen Tablet (Tylenol Tablet) (09/25/22 22:00) Venous Blood Gas (09/25/22 21:50) Urine Culture (09/25/22 21:56) Lactated Ringers (Lr 1000 Ml Iv Solution (09/25/22 22:30) Medications Given in ED Current Medications Medications Dose Ordered Sig/Nikia Route Start Time Stop Time Status Last Admin Dose Admin Lactated Ringer's 1,000 ml @ 0 mls/hr Q0M ONCE IV 09/25/22 22:00 09/25/22 22:01 DC 09/25/22 22:00 999 MLS/HR Vital Signs/I&O 09/25/22 21:40 Temp 36.6 Pulse 126 Resp 16 B/P (MAP) 149/91 (110) Pulse Ox 95 Capillary Refill : Progress Note : Progress Note 42-year-old male with diabetes coming in due to what he states is elevated glucose and being concerned for being in DKA. ABCs were intact and vitals were stable on presentation. An IV was placed and basic labs were obtained including a VBG. His pH is 7.4 which is not consistent with being in DKA. He does have ketones in his urine and glucose here is around 200. He had just given himself 2 doses of insulin prior to arrival so we did not redosed him. We gave him 2 boluses of IV fluids with improvement in his symptoms. I believe a lot of his abdominal cramping could be related to his weight loss diabetes medication which is very typical side effect. He says he has been dealing with this since starting the medicine. The patient states he believes his glucose was elevated because he has not been giving himself insulin like he should, and he also drinks soda couple times this week. He states he will try to be better with this. Given he does not have any significant metabolic derangements that would require admission, I believe he is stable for discharge with outpatient follow- up. Departure Impression Primary Impression: Hyperglycemia due to diabetes mellitus Disposition: HOME, SELF-CARE Condition: Improved Departure-Patient Inst. Decision time for Depature: 00:15 Referrals: ZACHARY LEVIN DO (PCP/Family) Primary Care Physician Patient Instructions: High Blood Sugar, Adult ED Add. Discharge Instructions: Please check your blood sugar before you go to bed tonight. Please be sure to give herself insulin as you are prescribed throughout the day tomorrow so that you do not go into DKA. If they have any concerns you can call your doctor or come back to the ER. Work/School Note: Work Release Form Date Seen in the Emergency Department: Sep 26, 2022 Return to Work: Sep 27, 2022 Restrictions: No Restrictions JUDAH CULLEN MD Sep 25, 2022 21:57
[2022-09-25] MEDS ORDERED: ACETAMINOPHEN 500 MG TAB (TYLENOL) PO ONE (22:00)
[2022-09-25] MEDS ORDERED: LACTATED RINGERS 1,000 ML IV ONE (22:00)
[2022-09-25 22:04] LABS: BASOPHILS # (AUTO) 0.1 10^3/uL (0.0-0.1); BASOPHILS % (AUTO) 1 % (0-10); EOSINOPHILS # (AUTO) 0.2 10^3/uL (0.0-0.3); EOSINOPHILS % (AUTO) 2 % (0-10); HEMATOCRIT 45 % (40-54); HEMOGLOBIN 16.2 g/dL (13.3-17.7); LYMPHOCYTES % (AUTO) 32 % (12-44); MEAN CORPUSCULAR HEMOGLOBIN 30 pg (25-34); MEAN CORPUSCULAR HGB CONC 36 g/dL (32-36); MEAN CORPUSCULAR VOLUME 82 fL (80-99); MEAN PLATELET VOLUME 11.2 fL (9.0-12.2); MONOCYTES # (AUTO) 0.8 10^3/uL (0.0-1.0); MONOCYTES % (AUTO) 9 % (0-12); NEUTROPHILS # (AUTO) 5.2 10^3/uL (1.8-7.8); NEUTROPHILS % (AUTO) 56 % (42-75); PLATELET COUNT 213 10^3/uL (130-400); WHITE BLOOD COUNT 9.3 10^3/uL (4.3-11.0)
[2022-09-25 22:10] LABS: BILIRUBIN,URINE NEGATIVE (NEGATIVE); CLARITY,URINE SL CLOUDY; COLOR,URINE YELLOW; GLUCOSE, URINE (UA) 3+ (NEGATIVE); KETONES,URINE 3+ (NEGATIVE); LEUKOCYTE ESTERASE ,URINE TRACE (NEGATIVE); NITRITE,URINE NEGATIVE (NEGATIVE); PROTEIN,URINE 1+ (NEGATIVE)
[2022-09-25 22:17] LABS: ALBUMIN 4.2 GM/DL (3.2-4.5)
[2022-09-25 22:18] LABS: POTASSIUM 4.1 MMOL/L (3.6-5.0)
[2022-09-25 22:19] LABS: CALCIUM 10.1 MG/DL (8.5-10.1)
[2022-09-25 22:20] LABS: TOTAL PROTEIN 7.6 GM/DL (6.4-8.2)
[2022-09-25 22:22] LABS: BILIRUBIN,TOTAL 0.4 MG/DL (0.1-1.0)
[2022-09-25 22:23] LABS: BACTERIA,URINE FEW /HPF; CALCIUM OXALATE CRYSTALS,UR MODERATE /LPF
[2022-09-25 22:24] LABS: CREATININE SERUM 0.94 MG/DL (0.60-1.30)
[2022-09-25] MEDS ORDERED: LACTATED RINGERS 1,000 ML IV STA (22:30)
[2022-09-26 00:18] VITALS: BP 137/87
== END 2022-09-26 00:22 | disposition home or self-care (01) ==
LOC: EDUNIT# 21:36 → ER 21:37
DX: E11.65 Type 2 diabetes mellitus with hyperglycemia (principal); E66.01 Morbid (severe) obesity due to excess calories; Z79.4 Long term (current) use of insulin; Z68.42 Body mass index [BMI] 45.0-49.9, adult; Z28.310 Unvaccinated for COVID-19; Z20.822 Contact with and (suspected) exposure to COVID-19
CPT/HCPCS: 36415; 80053; 81000; 82805; 83690; 83735; 85025; 87088; 87636

== ENCOUNTER 2023-01-14 21:56 | Emergency (ER) | payer MEDICARE, MEDICAID ==
[~2023-01-14] VITALS: Ht 177.8 cm; Wt 154.7 kg
[~2023-01-14 21:56] MED LIST changes: -INSU100I29 SQ; +INSU100I30 SQ
--- NOTE | 2023-01-14 23:07 | ED Cough/URI ---
General Chief Complaint: COVID19 Suspect/Confirmed Stated Complaint: SIMPTIOMS OF COVID Nursing Triage Note: TO ED VIA POV AND AMBULATORY TO ROOM 10 WITH C/O EXPOSURE TO COVID ON WEDNESDAY AND NOW C/O SORE THROAT, BILATERAL EARACHES, AND HEADACHE. DENIES FEVER OR COUGH. 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 HE HAS NOT TAKEN A HOME TEST FOR COVID PCP: ABBY, DR. LEVIN Allergies and Home Medications Allergies Coded Allergies: sertraline (Verified Allergy, Severe, RASH, SWELLING, 04/09/20) "FELT LOOPY" bupropion (Verified Allergy, Unknown, "CAUSED ME TO BANG MY HEAD ON THE WALL", 04/09/20) buspirone (Verified Allergy, Unknown, THROAT SWELLED, 04/09/20) cephalexin (Verified Allergy, Unknown, HIVES, 04/09/20) codeine (Verified Allergy, Unknown, pt tolerated morphine in past, 06/10/22) sulfamethoxazole (Verified Adverse Reaction, Unknown, Itching, 04/09/20) trimethoprim (Verified Adverse Reaction, Unknown, Itching, 04/09/20) Patient Home Medication List Home Medication List Reviewed: Yes Albuterol Sulfate (Proair Hfa) 90 Mcg Hfa.aer.ad, 0 GM IH RTQ4HR PRN for SHORTNESS OF BREATH Prescribed by: ZACH ROCHA on 06/14/22 1217 Amlodipine Besylate (Amlodipine Besylate) 5 Mg Tablet, 5 MG PO DAILY, (Reported) Entered as Reported by: ZACHARY HATCH on 06/11/22 1055 Aspirin (Aspirin EC) 81 Mg Tablet.dr, 81 MG PO DAILY, (Reported) Entered as Reported by: SABAS SILVA on 09/29/21 1415 Cetirizine HCl (Cetirizine HCl) 10 Mg Tablet, 10 MG PO DAILY PRN for ALLERGIES, (Reported) Entered as Reported by: SABAS SILVA on 09/29/21 1416 Chlorhexidine Gluconate (Chlorhexidine Gluconate) 0.12 % Mouthwash, 15 ML PO UD PRN for ORAL HEALTH, (Reported) Entered as Reported by: SABAS SILVA on 09/29/21 1412 Dicyclomine HCl (Dicyclomine HCl) 20 Mg Tablet, 20 MG PO QID PRN for GI SPASMS, (Reported) Entered as Reported by: ZACHARY HATCH on 06/11/22 1055 Fluticasone Propionate (Fluticasone Propionate) 16 Gm [place].susp, 1 SPRAY NSEACH DAILY PRN for ALLERGIES, (Reported) Entered as Reported by: SABAS SILVA on 09/29/21 1412 Hydrochlorothiazide (Hydrochlorothiazide) 25 Mg Tablet, 25 MG PO DAILY PRN for FLUID RETENTION, (Reported) Entered as Reported by: SABAS SILVA on 09/29/21 1415 Hydroxyzine HCl (Hydroxyzine HCl) 50 Mg Tablet, 50 MG PO TID PRN for ANXIETY, (Reported) Entered as Reported by: ZACHARY HATCH on 06/11/22 1055 Insulin Regular, Human (Humulin R U-500 Kwikpen) 500/Ml (3) Insuln.pen, 200 UNITS SC AC Prescribed by: ZACH ROCHA on 06/14/22 1217 Lisinopril (Lisinopril) 40 Mg Tablet, 40 MG PO DAILY, (Reported) Entered as Reported by: ZACHARY HATCH on 06/11/22 1055 Ondansetron (Ondansetron Odt) 8 Mg Tab.rapdis, 8 MG PO Q8H PRN for EDIS SEA/VOMITING-1ST LINE, (Reported) Entered as Reported by: ZACHARY HATCH on 06/11/22 1129 Pantoprazole Sodium (Pantoprazole Sodium) 40 Mg Tablet.dr, 40 MG PO DAILY PRN for HEARTBURN, (Reported) Entered as Reported by: TRISTON BETH on 04/09/20 1431 Potassium Chloride (Potassium Chloride) 10 Meq Tab.er.prt, 10 MEQ PO BID Prescribed by: ZACH ROCHA on 06/14/22 1218 Pregabalin (Pregabalin) 150 Mg Capsule, 150 MG PO BID, (Reported) Entered as Reported by: ZACHARY HATCH on 12/04/20 1538 Sitagliptin Phosphate (Januvia) 100 Mg Tablet, 100 MG PO DAILY, (Reported) Entered as Reported by: ZACHARY HATCH on 06/11/22 1055 Sucralfate (Sucralfate) 1 Gram Tablet, 1 GM PO ACHS, (Reported) Entered as Reported by: ZACHARY HATCH on 06/11/22 1129 Tizanidine HCl (Tizanidine HCl) 4 Mg Tablet, 4 MG PO TID PRN for MUSCLE SPASMS, (Reported) Entered as Reported by: ZACAHRY HATCH on 06/11/22 1055 Review of Systems Review of Systems Constitutional: no symptoms reported EENTM: see HPI, nose congestion, throat pain Respiratory: no symptoms reported; No cough, No short of breath Cardiovascular: no symptoms reported Gastrointestinal: no symptoms reported Genitourinary: no symptoms reported Past Nduywrq-Zcbhvv-Hsdgtz Hx Patient Social History Tobacco Use?: Yes Tobacco type used: Cigarettes Smoking Status: Current Everyday Smoker Use of E-Cig and/or Vaping dev: Yes E-Cig or Vaping type used: Nicotine Use of E-Cig and/or Vaping Daron: Current Everyday User Substance use?: Yes Substance type: Marijuana Substance frequency: Daily Alcohol Use?: Yes Alcohol Frequency: Once in a while Immunizations Up To Date Tetanus Booster (TDap): More than 5yrs PED Vaccines UTD: No First/Initial COVID19 Vaccinat: NONE Second COVID19 Vaccination Sundar: NONE Third COVID19 Vaccination Date: NONE Seasonal Allergies Seasonal Allergies: Yes Past Medical History Surgery/Hospitalization HX: testicular, cholecystectomy hypogonadism, asthma, high cholesterol, htn, gerd, neuropathy, obesity, iddm, adhd, anx/dep, Surgeries: Yes (HYPOGONADISM SURGERY ,/UNDESCENDED TESTICLE SURGERY; ENDOSCOPIES) Gallbladder, Testicular Respiratory: Yes Asthma Currently Using CPAP: No Currently Using BIPAP: No Cardiac: Yes High Cholesterol, Hypertension, Palpitations Neurological: Yes Neuropathy Reproductive Disorders: Yes (HYPOGONADISM sx as an ) Sexually Transmitted Disease: No HIV/AIDS: No Genitourinary: No Gastrointestinal: Yes (ENDOSCOPIES) Gastroesophageal Reflux, Diverticulosis, Esophagitis Musculoskeletal: Yes Arthritis Endocrine: Yes (MORBID OBESITY; DM TYPE 2 (INSULIN AND PO)-LONG HISTORY OF NON- COMPLIANCE) Diabetes, Insulin dep HEENT: Yes (GLASSES) Loss of Vision: Denies Hearing Impairment: Denies Cancer: No Psychosocial: Yes ADD/ADHD, Anxiety, Depression Integumentary: No Blood Disorders: No Adverse Reaction/Blood Tranf: No (N/A) Family Medical History Arthritis 19 MOTHER Congenital heart disease Diabetes mellitus 19 FATHER 19 MOTHER FH: brain aneurysm 19 FATHER (cause of - 09/13/2015) Glaucoma 19 FATHER Hypertension 19 FATHER 19 MOTHER Psychosocial problem 19 MOTHER (depression) No Pertinent Family Hx SOCIAL HISTORY: -SMOKES UP TO 1 PPD -VAPES NICOTINE DAILY ALSO -ETOH--OCCASIONAL USE -DRUGS--SMOKES MARIJUANA DAILY Physical Exam Vital Signs - First Documented 01/14/23 22:15 Temp 36.6 Pulse 95 Resp 16 B/P (MAP) 174/97 (122) Pulse Ox 95 O2 Delivery Room Air Capillary Refill : Less Than 3 Seconds Height: 5'11.00" Weight: 324lbs. 0.0oz. 146.864472rg; 48.00 BMI Method:Stated General Appearance: WD/WN, no apparent distress, obese, other (HAIR IS DYED A VIVID/BRIGHT ORANGE. PT IS SITTING UP, SMILING AND IS PLEASANT. DOES NOT APPEAR ILL OR TO BE IN ANY DISCOMFORT OR DISTRESS. ) HEENT: PERRL/EOMI, normal ENT inspection, TMs normal, pharynx normal Neck: non-tender, full range of motion, supple, normal inspection Respiratory: normal breath sounds, no respiratory distress, no accessory muscle use Cardiovascular: regular rate, rhythm, no murmur Gastrointestinal: non tender, soft Extremities: normal inspection, normal capillary refill Neurologic/Psychiatric: truck bracer II-XII nml as tested, no motor/sensory deficits, alert, normal mood/affect, oriented x 3 Skin: normal color, warm/dry Progress/Results/Core Measures Suspected Sepsis SIRS Temperature: Pulse: 95 Respiratory Rate: 16 Blood Pressure 174 /97 Mean: 122 Results/Orders Lab Results Laboratory Tests Test 01/14/23 22:20 Range/Units Influenza Type A (RT-PCR) Not Detected Not Detecte Influenza Type B (RT-PCR) Not Detected Not Detecte SARS-CoV-2 RNA (RT-PCR) Not Detected Not Detecte My Orders Orders - TRISTEN TUCKER DO Covid 19 Inhouse Test (01/14/23 22:18) Influenza A And B By Pcr (01/14/23 22:18) Isolation Central Supply Req (01/14/23 22:18) Vital Signs/I&O 01/14/23 01/14/23 22:15 23:21 Temp 36.6 36.6 Pulse 95 93 Resp 16 16 B/P (MAP) 174/97 (122) 141/83 Pulse Ox 95 96 O2 Delivery Room Air Room Air Capillary Refill : Less Than 3 Seconds Blood Pressure Mean: 122 Progress Note : Progress Note PLACED IN ISOLATION ROOM PPE WORN COVID AND FLU TESTING DONE, AND ARE BOTH NEGATIVE PT'S EXAM IS NORMAL VITALS ARE STABLE NO FEVER NO HYPOXIA NO COUGH AT ANY TIME NO DYSPNEA DISCUSSED TEST RESULTS, ANTICIPATED COURSE, SYMPTOMATIC TREATMENT, NEED FOR FOLLOW UP AND RETURN PRECAUTIONS REVIEWED PRIOR RECORDS, PT HAS A MULTITUDE OF VISITS FOR VARIOUS COMPLAINTS--ER VISITS, ADMITS/H&P'S/CONSULTS/DISCHARGE SUMMARIES, TESTS/PROCEDURES. Departure Impression Primary Impression: Viral URI Additional Impression: Exposure to COVID-19 virus Disposition: HOME, SELF-CARE Condition: Stable Departure-Patient Inst. Decision time for Depature: 23:05 Referrals: ZACHARY LEVIN DO (PCP/Family) Primary Care Physician Patient Instructions: Viral Upper Respiratory Infection, Adult (DC), COVID-19 Tests Add. Discharge Instructions: TYLENOL AND MOTRIN NEEDED FOR PAIN OR FEVER OVER THE COUNTER MEDICATIONS NEEDED FOR COUGH AND CONGESTION FOLLOW UP WITH [facility] IN 3-4 DAYS IF NO BETTER All discharge instructions reviewed with patient and/or family. Voiced understanding. TRISTEN TUCKER DO Jan 14, 2023 23:07
[2023-01-14 23:21] VITALS: BP 141/83
== END 2023-01-14 23:21 | disposition home or self-care (01) ==
LOC: EDUNIT# 21:56 → ER 21:59
DX: J06.9 Acute upper respiratory infection, unspecified (principal); F17.210 Nicotine dependence, cigarettes, uncomplicated; F17.290 Nicotine dependence, other tobacco product, uncomplicated; E66.01 Morbid (severe) obesity due to excess calories; Z68.42 Body mass index [BMI] 45.0-49.9, adult; Z20.822 Contact with and (suspected) exposure to COVID-19; Z28.310 Unvaccinated for COVID-19
CPT/HCPCS: 87636; 99283

== ENCOUNTER 2023-03-02 15:45 | Inpatient (IN) | payer MEDICARE, MEDICAID ==
[~2023-03-02] VITALS: Ht 177 cm; Wt 152.1 kg
--- NOTE | 2023-03-02 16:26 | ED General ---
General Chief Complaint: General Problems/Pain Stated Complaint: DIZZY - [place] Nursing Triage Note: PT CO OF SOA, DRY MOUTH, DIZZINESS, NAUSEA. PT STATES HAS RECENTLY INCREASED MONJORO LAST WEEK. POOR APPETITE Source of Information: Patient, Old Records Exam Limitations: No Limitations History of Present Illness Date Seen by Provider: Mar 02, 2023 Time Seen by Provider: 15:48 Initial Comments 42-year-old male with past medical history of IDDM coming in due to dry mouth, lightheaded, nausea, and poor appetite. Increased his dosage of his Monjoro last Wednesday and he relates a lot of the symptoms to that. He states this also feels similar to when he is in DKA. He notes his glucose was around 200 earlier, did not give himself insulin since he only does mealtime insulin. He states he has had nothing to eat today. Otherwise denying any chest pain, abdominal pain, focal weakness or numbness, rash, diarrhea, or any other concerns. Allergies and Home Medications Allergies Coded Allergies: sertraline (Verified Allergy, Severe, RASH, SWELLING, 04/09/20) "FELT LOOPY" bupropion (Verified Allergy, Unknown, "CAUSED ME TO BANG MY HEAD ON THE WALL", 04/09/20) buspirone (Verified Allergy, Unknown, THROAT SWELLED, 04/09/20) cephalexin (Verified Allergy, Unknown, HIVES, 04/09/20) codeine (Verified Allergy, Unknown, pt tolerated morphine in past, 06/10/22) sulfamethoxazole (Verified Adverse Reaction, Unknown, Itching, 04/09/20) trimethoprim (Verified Adverse Reaction, Unknown, Itching, 04/09/20) Patient Home Medication List Home Medication List Reviewed: Yes Albuterol Sulfate (Proair Hfa) 90 Mcg Hfa.aer.ad, 0 GM IH RTQ4HR PRN for SHORTNESS OF BREATH Prescribed by: ZACH ROCHA on 06/14/22 1217 Amlodipine Besylate (Amlodipine Besylate) 5 Mg Tablet, 5 MG PO DAILY, (Reported) Entered as Reported by: ZACHARY HATCH on 06/11/22 1055 Aspirin (Aspirin EC) 81 Mg Tablet.dr, 81 MG PO DAILY, (Reported) Entered as Reported by: SABAS SILVA on 09/29/21 1415 Cetirizine HCl (Cetirizine HCl) 10 Mg Tablet, 10 MG PO DAILY PRN for ALLERGIES, (Reported) Entered as Reported by: SABAS SILVA on 09/29/21 1416 Chlorhexidine Gluconate (Chlorhexidine Gluconate) 0.12 % Mouthwash, 15 ML PO UD PRN for ORAL HEALTH, (Reported) Entered as Reported by: SABAS SILVA on 09/29/21 1412 Dicyclomine HCl (Dicyclomine HCl) 20 Mg Tablet, 20 MG PO QID PRN for GI SPASMS, (Reported) Entered as Reported by: ZACHARY HATCH on 06/11/22 1055 Fluticasone Propionate (Fluticasone Propionate) 16 Gm Johnson.susp, 1 SPRAY NSEACH DAILY PRN for ALLERGIES, (Reported) Entered as Reported by: SABAS SILVA on 09/29/21 1412 Hydrochlorothiazide (Hydrochlorothiazide) 25 Mg Tablet, 25 MG PO DAILY PRN for FLUID RETENTION, (Reported) Entered as Reported by: SABAS SILVA on 09/29/21 1415 Hydroxyzine HCl (Hydroxyzine HCl) 50 Mg Tablet, 50 MG PO TID PRN for ANXIETY, (Reported) Entered as Reported by: ZACHARY HATCH on 06/11/22 1055 Insulin Regular, Human (Humulin R U-500 Kwikpen) 500/Ml (3) Insuln.pen, 200 UNITS SC AC Prescribed by: ZACH ROCHA on 06/14/22 1217 Lisinopril (Lisinopril) 40 Mg Tablet, 40 MG PO DAILY, (Reported) Entered as Reported by: ZACHARY HATCH on 06/11/22 1055 Ondansetron (Ondansetron Odt) 8 Mg Tab.rapdis, 8 MG PO Q8H PRN for NAUSEA/VOMITING-1ST LINE, (Reported) Entered as Reported by: ZACHARY HATCH on 06/11/22 1129 Pantoprazole Sodium (Pantoprazole Sodium) 40 Mg Tablet.dr, 40 MG PO DAILY PRN for HEARTBURN, (Reported) Entered as Reported by: TRISTON BETH on 04/09/20 1431 Potassium Chloride (Potassium Chloride) 10 Meq Tab.er.prt, 10 MEQ PO BID Prescribed by: ZACH ROCHA on 06/14/22 1218 Pregabalin (Pregabalin) 150 Mg Capsule, 150 MG PO BID, (Reported) Entered as Reported by: ZACHARY HATCH on 12/04/20 1538 Sitagliptin Phosphate (Januvia) 100 Mg Tablet, 100 MG PO DAILY, (Reported) Entered as Reported by: ZACHARY HATCH on 06/11/22 1055 Sucralfate (Sucralfate) 1 Gram Tablet, 1 GM PO ACHS, (Reported) Entered as Reported by: ZACHARY HATCH on 06/11/22 1129 Tizanidine HCl (Tizanidine HCl) 4 Mg Tablet, 4 MG PO TID PRN for MUSCLE SPASMS, (Reported) Entered as Reported by: ZACHARY HATCH on 06/11/22 1055 Review of Systems Review of Systems Constitutional: No fever EENTM: no symptoms reported Respiratory: see HPI Cardiovascular: no symptoms reported Gastrointestinal: see HPI Genitourinary: no symptoms reported Musculoskeletal: no symptoms reported Skin: no symptoms reported Psychiatric/Neurological: No Symptoms Reported Hematologic/Lymphatic: No Symptoms Reported Past Abjpbkg-Yqmyve-Pqsbqi Hx Patient Social History Tobacco Use?: No Substance use?: Yes Substance type: Marijuana Substance frequency: Rarely Alcohol Use?: No Pt feels they are or have been: No Immunizations Up To Date Tetanus Booster (TDap): More than 5yrs PED Vaccines UTD: No First/Initial COVID19 Vaccinat: NONE Second COVID19 Vaccination Sundar: NONE Third COVID19 Vaccination Date: NONE Seasonal Allergies Seasonal Allergies: Yes Past Medical History Surgery/Hospitalization HX: testicular, cholecystectomy hypogonadism, asthma, high cholesterol, htn, gerd, neuropathy, obesity, iddm, adhd, anx/dep, Surgeries: Yes (HYPOGONADISM SURGERY INFANT,/UNDESCENDED TESTICLE SURGERY; ENDOSCOPIES) Gallbladder, Testicular Respiratory: Yes Asthma Currently Using CPAP: No Currently Using BIPAP: No Cardiac: Yes High Cholesterol, Hypertension, Palpitations Neurological: Yes Neuropathy Reproductive Disorders: Yes (HYPOGONADISM sx as an infant) Sexually Transmitted Disease: No HIV/AIDS: No Genitourinary: No Gastrointestinal: Yes (ENDOSCOPIES) Gastroesophageal Reflux, Diverticulosis, Esophagitis Musculoskeletal: Yes Arthritis Endocrine: Yes (MORBID OBESITY; DM TYPE 2 (INSULIN AND PO)-LONG HISTORY OF NON- COMPLIANCE) Diabetes, Insulin dep HEENT: Yes (GLASSES) Loss of Vision: Denies Hearing Impairment: Denies Cancer: No Psychosocial: Yes ADD/ADHD, Anxiety, Depression Integumentary: No Blood Disorders: No Adverse Reaction/Blood Tranf: No (N/A) Family Medical History Arthritis 19 MOTHER Congenital heart disease Diabetes mellitus 19 FATHER 19 MOTHER FH: brain aneurysm 19 FATHER (cause of - 09/13/2015) Glaucoma 19 FATHER Hypertension 19 FATHER 19 MOTHER Psychosocial problem 19 MOTHER (depression) No Pertinent Family Hx SOCIAL HISTORY: -SMOKES UP TO 1 PPD -VAPES NICOTINE DAILY ALSO -ETOH--OCCASIONAL USE -DRUGS--SMOKES MARIJUANA DAILY Physical Exam Vital Signs Vital Signs - First Documented 03/02/23 16:05 Temp 36.4 Pulse 120 Resp 20 B/P (MAP) 146/90 (108) Pulse Ox 99 Capillary Refill : Less Than 3 Seconds Height, Weight, BMI Height: 5'11.00" Weight: 324lbs. 0.0oz. 146.120507yq; 48.00 BMI Method:Stated General Appearance: No Apparent Distress, WD/WN Eyes: Bilateral Eye Normal Inspection HEENT: PERRL/EOMI, Pharynx Normal, Other (Slightly dry tongue) Neck: Full Range of Motion, Normal Inspection, Non Tender, Supple Respiratory: Chest Non Tender, Lungs Clear, Normal Breath Sounds, No Accessory Muscle Use, No Respiratory Distress Cardiovascular: Regular Rate, Rhythm, No Edema, Normal Peripheral Pulses Gastrointestinal: Normal Bowel Sounds, Non Tender, Soft; No Distended, No Guarding Back: Normal Inspection, No CVA Tenderness Extremity: Normal Capillary Refill, Normal Inspection, Normal Range of Motion, Non Tender, No Calf Tenderness, No Pedal Edema Neurologic/Psychiatric: Alert, No Motor/Sensory Deficits, Normal Mood/Affect Skin: Normal Color, Warm/Dry Progress/Results/Core Measures Suspected Sepsis SIRS Temperature: Pulse: 120 Respiratory Rate: 20 Laboratory Tests 03/02/23 16:25: White Blood Count 12.5H Blood Pressure 146 /90 Mean: 108 Laboratory Tests 03/02/23 16:25: Creatinine 1.56H, Platelet Count 259, Total Bilirubin 0.6 Results/Orders Lab Results Laboratory Tests Test 03/02/23 16:17 03/02/23 16:25 Range/Units Glucometer 236 H 70-110 MG/DL White Blood Count 12.5 H 4.3-11.0 10^3/uL Red Blood Count 6.07 H 4.30-5.52 10^6/uL Hemoglobin 18.3 H 13.3-17.7 g/dL Hematocrit 52 40-54 % Mean Corpuscular Volume 86 80-99 fL Mean Corpuscular Hemoglobin 30 25-34 pg Mean Corpuscular Hemoglobin Concent 35 32-36 g/dL Red Cell Distribution Width 13.2 10.0-14.5 % Platelet Count 259 130-400 10^3/uL Mean Platelet Volume 11.2 9.0-12.2 fL Immature Granulocyte % (Auto) 4 % Neutrophils (%) (Auto) 57 42-75 % Lymphocytes (%) (Auto) 30 12-44 % Monocytes (%) (Auto) 8 0-12 % Eosinophils (%) (Auto) 1 0-10 % Basophils (%) (Auto) 1 0-10 % Neutrophils # (Auto) 7.1 1.8-7.8 10^3/uL Lymphocytes # (Auto) 3.7 1.0-4.0 10^3/uL Monocytes # (Auto) 1.0 0.0-1.0 10^3/uL Eosinophils # (Auto) 0.1 0.0-0.3 10^3/uL Basophils # (Auto) 0.1 0.0-0.1 10^3/uL Immature Granulocyte # (Auto) 0.5 H 0.0-0.1 10^3/uL Urine Color YELLOW Urine Clarity CLEAR Urine pH 5.5 5-9 Urine Specific [place] 1.025 H 1.016-1.022 Urine Protein TRACE H NEGATIVE Urine Glucose (UA) 3+ H NEGATIVE Urine Ketones 3+ H NEGATIVE Urine Nitrite NEGATIVE NEGATIVE Urine Bilirubin 1+ H NEGATIVE Urine Urobilinogen 0.2 < = 1.0 MG/DL Urine Leukocyte Esterase NEGATIVE NEGATIVE Urine RBC (Auto) TRACE-I H NEGATIVE Urine RBC RARE /HPF Urine WBC RARE /HPF Urine Squamous Epithelial Cells RARE /HPF Urine Crystals NONE /LPF Urine Bacteria NEGATIVE /HPF Urine Casts NONE /LPF Urine Mucus NEGATIVE /LPF Urine Culture Indicated NO Venous Blood pH 7.18 L 7.31-7.41 Venous Blood Partial Pressure CO2 28 L 40-52 MMHG Venous Blood HCO3 10 L 22-28 MMOL/L Sodium Level 133 L 135-145 MMOL/L Potassium Level 5.1 H 3.6-5.0 MMOL/L Chloride Level 103 98-107 MMOL/L Carbon Dioxide Level 7 *L 21-32 MMOL/L Anion Gap 23 H 5-14 MMOL/L Blood Urea Nitrogen 19 H 7-18 MG/DL Creatinine 1.56 H 0.60-1.30 MG/DL Estimat Glomerular Filtration Rate 56 BUN/Creatinine Ratio 12 Glucose Level 239 H 70-105 MG/DL Calcium Level 9.8 8.5-10.1 MG/DL Corrected Calcium 8.5-10.1 MG/DL Magnesium Level 2.5 H 1.6-2.4 MG/DL Total Bilirubin 0.6 0.1-1.0 MG/DL Aspartate Amino Transf (AST/SGOT) 63 H 5-34 U/L Alanine Aminotransferase (ALT/SGPT) 70 H 0-55 U/L Alkaline Phosphatase 105 40-136 U/L Total Protein 8.7 H 6.4-8.2 GM/DL Albumin 4.9 H 3.2-4.5 GM/DL Lipase 24 8-78 U/L Beta-Hydroxybutyrate (Chem panel) 6.63 H 0.00-0.27 MMOL/L My Orders Orders - JUDAH CULLEN MD Cbc With Automated Diff (03/02/23 16:22) Comprehensive Metabolic Panel (03/02/23 16:22) Lipase (03/02/23 16:22) Magnesium (03/02/23 16:22) Ua Culture If Indicated (03/02/23 16:22) Ed Iv/Invasive Line Start (03/02/23 16:22) Ns Iv 1000 Ml (Sodium Chloride 0.9%) (03/02/23 16:30) Ondansetron Injection (Zofran Injectio (03/02/23 16:30) Insulin (Regular) Human (Novolin R (Per (03/02/23 16:30) Accucheck Stat ONCE (03/02/23 16:22) Venous Blood Gas (03/02/23 16:22) Beta Hydroxybutyrate (03/02/23 16:23) Ns Iv 1000 Ml (Sodium Chloride 0.9%) (03/02/23 16:50) Ed Admission (Communication) (03/02/23 17:00) Medications Given in ED Current Medications Medications Dose Ordered Sig/Nikia Route Start Time Stop Time Status Last Admin Dose Admin Insulin Human Regular 10 unit ONCE ONCE SC 03/02/23 16:30 03/02/23 16:31 DC 03/02/23 16:35 10 UNIT Ondansetron HCl 4 mg ONCE ONCE IVP 03/02/23 16:30 03/02/23 16:31 DC 03/02/23 16:34 4 MG Vital Signs/I&O 03/02/23 16:05 Temp 36.4 Pulse 120 Resp 20 B/P (MAP) 146/90 (108) Pulse Ox 99 Capillary Refill : Less Than 3 Seconds Blood Pressure Mean: 108 Point of Care Testing Finger Stick Blood Glucose: 236 Progress Note : Progress Note 42-year-old male coming in just feeling poor, nauseous, general abdominal discomfort. Glucose was in the 200s on arrival, tongue dry, appears mildly dehydrated. An IV was placed and he was given a bolus of IV fluids. Basic labs obtained and were significant for a pH of 7.18, bicarb of 7, mild CATHIE with a creatinine around 1.5, anion gap of 23, ketones in the urine all consistent with being in DKA. He was given 10 units of insulin followed by another liter of IV fluids. The patient states he has not given himself insulin all day, likely is in DKA from insulin lack. I contacted Dr. Rocha who will admit him to the intensive care unit for further evaluation and management. I then contacted the ICU physician for signout. Critical Care Note Critical Care Start Time: 16:01 Stop Time: 17:08 Total Time (minutes) 36 Progress Patient has significant metabolic derangements and was risk for decompensation. He required frequent reassessments and multiple conversations with different physicians. Departure Impression Primary Impression: DKA (diabetic ketoacidosis) Qualified Codes: E10.10 - Type 1 diabetes mellitus with ketoacidosis without coma Disposition: ADMITTED INPATIENT Condition: Stable Admissions Decision to Admit Reason: Admit from ER (General) Decision to Admit/Date: Mar 02, 2023 Time/Decision to Admit Time: 16:50 Departure-Patient Inst. Referrals: ZACHARY LEVIN DO (PCP/Family) Primary Care Physician JUDAH CULLEN MD Mar 02, 2023 16:25
[2023-03-02 16:29] LABS: BASOPHILS # (AUTO) 0.1 10^3/uL (0.0-0.1); BASOPHILS % (AUTO) 1 % (0-10); EOSINOPHILS # (AUTO) 0.1 10^3/uL (0.0-0.3); EOSINOPHILS % (AUTO) 1 % (0-10); HEMATOCRIT 52 % (40-54); HEMOGLOBIN 18.3 g/dL (13.3-17.7); LYMPHOCYTES # (AUTO) 3.7 10^3/uL (1.0-4.0); LYMPHOCYTES % (AUTO) 30 % (12-44); MEAN CORPUSCULAR HEMOGLOBIN 30 pg (25-34); MEAN CORPUSCULAR HGB CONC 35 g/dL (32-36); MEAN CORPUSCULAR VOLUME 86 fL (80-99); MEAN PLATELET VOLUME 11.2 fL (9.0-12.2); MONOCYTES % (AUTO) 8 % (0-12); NEUTROPHILS # (AUTO) 7.1 10^3/uL (1.8-7.8); NEUTROPHILS % (AUTO) 57 % (42-75); PLATELET COUNT 259 10^3/uL (130-400); WHITE BLOOD COUNT 12.5 10^3/uL (4.3-11.0)
[2023-03-02] MEDS ORDERED: inSUlin (REGULAR) HUMAN 1 UNIT/0.01 ML (CHARGE PER UNIT) SC ONE (16:30)
[2023-03-02] MEDS ORDERED: NS IV 1000 ML 1,000 ML IV SCH ×2 (16:30→18:00)
[2023-03-02] MEDS ORDERED: ONDANSETRON 4 MG/2 ML (SDV) Z0FRAN IVP ONE (16:30)
[2023-03-02 16:33] LABS: CLARITY,URINE CLEAR; COLOR,URINE YELLOW; GLUCOSE, URINE (UA) 3+ (NEGATIVE); KETONES,URINE 3+ (NEGATIVE); LEUKOCYTE ESTERASE ,URINE NEGATIVE (NEGATIVE); NITRITE,URINE NEGATIVE (NEGATIVE); PH,URINE 5.5 (5-9); PROTEIN,URINE TRACE (NEGATIVE)
[2023-03-02 16:36] LABS: BILIRUBIN,URINE 1+ (NEGATIVE)
[2023-03-02 16:39] LABS: BACTERIA,URINE NEGATIVE /HPF; RBC,URINE RARE /HPF; SQUAMOUS EPITHELIAL CELL,UR RARE /HPF; WBC,URINE RARE /HPF
[2023-03-02 16:43] LABS: ALBUMIN 4.9 GM/DL (3.2-4.5); CHLORIDE 103 MMOL/L (98-107); POTASSIUM 5.1 MMOL/L (3.6-5.0); SODIUM 133 MMOL/L (135-145)
[2023-03-02 16:45] LABS: CALCIUM 9.8 MG/DL (8.5-10.1)
[2023-03-02 16:46] LABS: GLUCOSE 239 MG/DL (70-105); TOTAL PROTEIN 8.7 GM/DL (6.4-8.2)
[2023-03-02 16:48] LABS: BILIRUBIN,TOTAL 0.6 MG/DL (0.1-1.0)
[2023-03-02 16:49] LABS: ALKALINE PHOSPHATASE 105 U/L (40-136); CREATININE SERUM 1.56 MG/DL (0.60-1.30); GFR ESTIMATED 56
[2023-03-02 16:50] LABS: BUN/CREATININE RATIO 12
[2023-03-02] MEDS ORDERED: NS IV 1000 ML 1,000 ML IV STA (16:50)
[2023-03-02 16:52] LABS: ALANINE AMINOTRANSFERASE 70 U/L (0-55)
[2023-03-02 16:53] LABS: CARBON DIOXIDE 7 MMOL/L (21-32); MAGNESIUM 2.5 MG/DL (1.6-2.4)
[2023-03-02 16:54] LABS: LIPASE 24 U/L (8-78)
--- OUTSIDE RECORDS SUMMARY | 2023-03-02 17:53 | XMS REPORT ---
Author Author [facility] (formerly [facility] Address Unknown Phone Unavailable Care Team Providers Care Yard Supervisor Cotton Gin Name Role Phone MILY Antoine Unavailable PROBLEMS ALLERGIES ENCOUNTERS from 1978 to 2023-03-01 IMMUNIZATIONS SOCIAL HISTORY No smoking Hx information available REASON FOR REFERRAL No Information VITAL SIGNS MEDICATIONS PROCEDURES No Information RESULTS No Results REASON FOR VISIT MEDICAL (GENERAL) HISTORY Goals Section Health Concerns MEDICAL EQUIPMENT No Information MENTAL STATUS FUNCTIONAL STATUS ASSESSMENTS PLAN OF TREATMENT Insurance Providers MEDICATIONS ADMINISTERED
--- OUTSIDE RECORDS SUMMARY | 2023-03-02 17:53 | XMS REPORT ---
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 Numerical Control Operator Name Role Phone MIRELLA Pa Unavailable PROBLEMS Type Condition ICD9-CM Code [id number] Code Onset Dates Condition S tatus W/U Status Risk SNOMED Code Notes Problem Hypogonadism in male E29.1 confirmed 48588358 Problem Morbid obesity due to excess calories E66.01 confirmed 319381832 Problem Other chronic pain G89.29 confirmed 8 4190356 Problem Neuropathy G62.9 confirmed 229039046 Problem Uncontrolled type 2 diabetes mellitus with hyperglycemia E11.65 confirmed 158068060 Problem Attention deficit hyperactivity disorder F90.9 confirmed 752816930 Problem Chronic fatigue R53.82 confirmed 5270 2003 Problem Major depressive disorder F32.9 confirmed 561252913 Problem Anxiety F41.9 confirmed 58147332 Problem Mild episode of recurrent major depressive disorder F33.0 confirmed 444241390 Problem BMI 45.0-49.9, adult Z68.42 confirmed 423537282 Problem Seasonal allergies J30.2 confirmed 4 99971758 Problem Type 2 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 confirmed 44772077 Problem GERD with esophagitis K21.0 confirmed 924191718 Problem Hyperlipidemia, mixed E78.2 confirmed 301288890 Problem Type 2 diabetes mellitus with diabetic autonomic (poly)neuropathy E11.43 confirmed 739483365 Problem Primary insomnia F51.01 confirmed 397 2004 Problem Irritable bowel syndrome with diarrhea K58.0 confirmed 835857874 Problem Gastroparesis K31.84 confirmed 304194 006 Problem Diabetic mononeuropathy associated with type 2 d iabetes mellitus E11.41 confirmed 212312618 Problem Diverticulitis K57.92 confirmed 16528 6006 Problem Arthritis M19.90 confirmed 5268693 Problem KHADAR (obstructive sleep apnea) G47.33 confirm ed 36712140 Problem Major depressive disorder with current active episode F33.9 confirmed 11660635 Problem Allergic rhinitis, unspecified seasonality, unspecifie d trigger J30.9 confirmed 00066607 Problem Pure hyperglyceridemia E78.1 confirmed 563892150 Problem Pure hypercholesterolemia E78.00 confirmed 575876932 Problem Type 2 diabetes mellitus with diabetic neuropathy, uns pecified E11.40 confirmed 8762123995537 Problem Type 2 diabetes mellitus with other specified complication E11.69 confirmed 13703852393622 Problem Other chronic gastritis without hemorrhage K29.50 confirmed 5845204 Problem Insulin resistance E88.81 confirmed 7 45567080 Problem Esophageal erosions K22.10 confirmed 351558880 Problem Muscle spasm of both lower legs M62.838 conf irmed 05718291 Problem Chronic sinusitis, unspecified J32.9 confir med 518281793 Problem High triglycerides E78.1 confirmed 3 57433374 Problem Poor diet E63.9 confirmed 397715155 Problem Comprehensive diabetic foot examination, type 2 DM, encounter for E11.9 confirmed 94534603 Problem Diverticular disease K57.90 confirmed 404496219 Problem Insomnia G47.00 confirmed 451666808 Problem Anxiety disorder F41.9 confirmed 197 317507 Problem Type 2 diabetes mellitus with hyperglycemia E11.65 confirmed 750017903 Problem Essential (primary) hypertension I10 conf irmed 02112597 Problem Generalized anxiety disorder F41.1 confirme d 45492789 Problem Type 2 diabetes mellitus with ketoacidosis without coma E11.10 confirmed 444264017 Problem 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10 co nfirmed 50003741 Problem Pulmonary hypertension I27.20 confirmed 18396237 Problem Non-seasonal allergic rhinitis due to other allergic marcellus er J30.89 confirmed 33135993 Problem Lumbago with sciatica, left side M54.42 conf irmed 138066930 Problem Mixed hyperlipidemia E78.2 confirmed 084262539 Problem Gastroesophageal reflux disease with esophagitis without hemorrhage K21.00 confirmed 403551705 Problem Autism disorder F84.0 confirmed 5909 04303 Problem Major depressive disorder, recurrent, moderate F33.1 confirmed 83206319 Problem Autism spectrum F84.0 confirmed 5319 9917 ALLERGIES Allergen (clinical drug ingredient) Drug/Non Drug Allergy do cumented on EMR Reaction Allergy Type Onset Date Status albuterol Albuterol Unknown Drug Allergy Active sertraline Zoloft([facility] Code:[address]-39) hives adverse reaction Drug Allergy Active semaglutide Ozempic (0.25 or 0.5 MG/DOSE)([facility] Code:74672-308 10-02) Unknown Drug Allergy Active clindamycin Clindamycin HCl([facility] Code:[address]-32) itching Drug A llergy Active BuSpar local swelling Drug Allergy Active Wellbutrin "out of it" Drug Allergy Active ENCOUNTERS from 1978 to 2023-02-27 Encounter Location Date Provider Diagnosis [facility] [id number] [place] [address] Dec, MIRELLA Pa Caries K02.9 IMMUNIZATIONS Vaccine Route Administration Date Status Influenza (split), preservative free, 6-35 months Unknown Jul 18, 1999 Administered Influenza (split), preservative free, 6-35 months Unknown Jul 06, 2007 Administered td adult 2 Lf tetanus toxoid, preservative free, adsorbed (h istory) Unknown January 30, 1993 Administered tdap (history) Unknown Jul 06, 2007 Administered SOCIAL HISTORY Sex Assigned At : Social History Observation Description Sex Assigned At Male Alcohol Screen (Audit-C) Question Answer Notes Did you have a drink containing alcohol in the past year? No Points 0 Interpretation Negative Drug and Alcohol (Do not use) Question Answer Notes Total Score: 0 Interpretation: No problems reported DAST-10 (2020 Edition) Question Answer Notes 1. Have you used drugs other than those required for medical reasons? Yes 2. Do you abuse more than one drug at a time? No 3. Are you always able to stop using drugs when you want to? Yes 4. Have you had "blackouts" or "flashbacks" as a result of d rug use? No 5. Do you ever feel bad or guilty about your drug use? No 6. Does your spouse (or parents) ever co mplain about your involvement with drugs? No 7. Have you neglected your family because of your use of luiz gs? No 8. Have you engaged in illegal activities in order to obtain drugs? No 9. Have you ever experienced withdrawal symptoms (felt sick) when you stopped taking drugs? No 10. Have you had medical problems as a r esult of your drug use (e.g., memory loss, hepatitis, convulsions, bleeding etc.)? No Results: 1 Interpretation of Score: Low level Tobacco use other than smoking: Question Answer Notes Are you an other tobacco user? No REASON FOR REFERRAL No Information VITAL SIGNS No information MEDICATIONS Medication SIG (Take, Route, Frequency, Duration) Notes Start Da te End Date Status Mounjaro 5 MG/0.5ML INJECT 5MG SUBCUTANEOUSLY (U NDER THE SKIN) ONCE EVERY WEEK for 28 .5 weekly Not-Taking [place] 32G X 4 MM use with insulin pens for in jection subcutaneously 3 times a day for 30 days Feb, Active Fluticasone Propionate 50 MCG/ACT INSTILL ONE (1) SPRA Y INTO EACH NOSTRIL ONCE DAILY for 60 Active Aspirin Low Dose 81 MG TAKE ONE (1) TABLET BY MOUTH ONCE UBALDO LY for 30 NEEDS REFILL Active clonazePAM 1 MG 0.5-1 tablet Orally daily as needed for anxiety for 28 days Active Gvoke HypoPen 2-Pack 1 MG/0.2ML as directed Subcutaneo us for severe hypoglycemia PRN low bs Jun, Active tiZANidine HCl 4 MG 1 tablet Orally TID PRN for 30 days Active Nystatin 671053 UNIT/GM 1 application Externally Twice a day for 10 days Oct, Active HumuLIN R U-500 KwikPen 500 UNIT/ML 215 UNITS Subcutan eous three times daily for 30 days 200 units per meal 3 meals a day Active ProAir HFA as directed prn Not-Takin g Ezetimibe 10 MG 1 tablet Orally Once a day for 90 days Jun, Active hydroCHLOROthiazide 25 MG Take one tablet orally prn for 30 days As n eeded Active Ibuprofen 800 MG 1 tablet with food or milk a s needed Orally every 8 hours prn for 30 days Aug, Active Synjardy XR 12.5-1000 MG 2 tabs with breakfast Orally Once a day for 90 days (replaces Invokamet as this was denied by insurance) Oct, Active Lisinopril 40 MG TAKE ONE (1) TABLET BY MOUTH ONCE DAILY for 90 Active Mirtazapine 30 MG 1 tablet at bedtime Orally Once a day for 30 days Active Cetirizine HCl 10 MG TAKE ONE (1) TABLET BY MOUTH ONCE DAILY (MUST HAVE APPOINTMENT FOR REFILL) for 30 prn A ctive Biotin 10 MG TAKE ONE (1) CAPSULE BY MOUTH ONCE DAILY for 30 Active Benfotiamine OTC Active amLODIPine Besylate 5 MG TAKE ONE (1) TABLET BY MOUTH ONCE DAILY for 30 Active Vitamin D (Cholecalciferol) 25 mcg (1000 ut) 1 capsule Orally Once a day for 90 days NEEDS REFILL January, Active Albuterol Sulfate HFA 108 (90 Base) MCG/ACT INHALE TWO (2) PUFFS BY MOUTH EVERY FOUR (4) HOURS NEEDED FOR SHORTNESS OF BREATH for 16 Active Blood Glucose Test - as directed In Vitro 4 times a day for 30 days One Touch Ultra 2 Jun, Active Xopenex 1.25 MG/3ML 3 ml Inhalation every 8 hrs for 14 days prn Sep, Active Dicyclomine HCl 20 MG 1 tablet Orally four times a day as needed for 30 days Dec, Active Lyrica 150 MG 1 capsule Orally three times a day for 2 8 days May fill on 02/16/2023 January, Active Ambien 10 MG 0.5-1 tab Orally at night as needed for sleep for 28 day s PRN Active Atorvastatin Calcium 80 MG TAKE ONE (1) TABLET BY MOUTH ONCE A DAY for 90 days Active Blood Glucose Monitor System w/Device as directed subc utaneously qid for 30 days device brand that is covered by insurance Jun, Active Nebulizer System All-In-One - as directed by inhalation route as needed Jun, Active Mounjaro 5 MG/0.5ML 5mg subcutaneous weekly for 28 days Active Alpha Lipoic Acid 200 MG 3 CAPSULES Orally Once a day OTC Active Capsaicin 0.025 % 1 application as needed Exte rnally Three times a day for 30 days Feb, Active Pantoprazole Sodium 40 MG TAKE ONE (1) TABLET BY MOUTH ONCE ZHENG Y for 90 days Active PROCEDURES No Information RESULTS No Results REASON FOR VISIT Broken tooth, bottom right MEDICAL (GENERAL) HISTORY Type Description Date Medical History Throat pain Medical History Unspecified follow-up examination Medical History irritable bowel syndrome Medical History obesity Medical History type II diabetes Medical History headache Medical History depression Medical History hypogonadism Medical History pneumonia Medical History Diabetic neropothy Medical History Insomnia, unspecified Medical History Gastro-esophageal reflux disease with es ophagitis Medical History Polyneuropathy Medical History Controlled type 2 diabetes m ellitus without complication, without long-term current use of insulin Medical History Diabetic neuropathic arthritis Surgical History cholecystectomy 2014 Surgical History testicular surgery at age 1 Surgical History colonoscopy 07/05/18 Surgical History EGD 06/2018 Surgical History tooth extraction 08/16/2018 Surgical History colonoscopy 02/2021 Hospitalization History [facility] for diabetes 09/2011 Hospitalization History [facility] diabetic issues 09/2015 Hospitalization History [facility] Pneumonia 01/2016 Hospitalization History celluitis of the left upper thigh-[facility] 04/2017 Hospitalization History [facility]-inpatient psych 4 day stay 201 4 Hospitalization History [facility]- Shaking, unsure of blood sugar level 11/20/2017 Hospitalization History ER visit for ketosis 08/07 Hospitalization History [facility] ER, seen for Dehydration 10/2018 Hospitalization History Fell at home 04/2019 Hospitalization History chest pain, jaw pain, SOA, h eart tests, x2 day, [facility] 11/2020 Hospitalization History DKA 10/01/21 Hospitalization History DKA covid 19 about 5 days 05/2022 Goals Section No Information Health Concerns No Information MEDICAL EQUIPMENT No Information MENTAL STATUS No Information FUNCTIONAL STATUS No Information ASSESSMENTS Encounter Date Diagnosis Assessment Notes Treatment Notes Treatm ent Clinical Notes Dec, Caries (ICD-10 - K02.9) PLAN OF TREATMENT Medication Medication Name Sig Start Date Stop Date Capsaicin 0.025 % 1 application as needed Exte rnally Three times a day for 30 days Feb, Pantoprazole Sodium 40 MG TAKE ONE (1) TABLET BY MOUTH ONCE ZHENG Y for 90 days Mounjaro 5 MG/0.5ML 5mg subcutaneous weekly for 28 days Next Appt Details Provider Name:ZACHARY LEVIN, 2023-03-02 1 0:00:00 AM, [address], [id number], [place], [address], Provider Name:ZACHARY LEVIN, 2023-03-09 1 0:00:00 AM, [address], [id number], [place], [address], Provider Name:ZACHARY LEVIN, 2023-03-16 1 0:00:00 AM, [address], [id number], [place], [address], Provider Name:ESTER NAGY, 10:30:00 AM, [address], [id number], [place], [address], Provider Name:ZACHARY LEVIN, 2023-04-20 0 3:20:00 PM, [address], [id number], [place], [address], Provider Name:JENNIFER RANDALL, 2023-04-29 02:20:00 PM, [address], [id number], [place], [address], Provider Name:ESTER NAGY, 10:30:00 AM, [facility] [address], [id number], [place], [address], Provider Name:ZACHARY OLLIE, 2023-06-25 1 2:40:00 AM, [address], [id number], [place], [address], Insurance Providers Payer Name Payer Address Payer Phone Insured Name Patient Relati onship to Insured Coverage Start Date Coverage End Date Subscriber Number Group Nu mber [id number] [facility] [phone] Frankie Salas Self - patient is the insured [id number] [facility] [address] [facility] [address] Frankie Salas Self - patient is the insured [id number] [facility] MEDICARE Part A FI [address] [facility] [address] Frankie Salas Self - patient is the insured 2014 [id number] [facility] Dual Medicare Complete HMO [address] [facility] [phone] Frankie Salas Self - patient is the insured 2019 [id number] NON [facility] 19 [address] [facility] [address] RoddymanuelFrankie cardenas Self - patient is the insured [id number] [facility] [address] [facility] [id number] Frankie Salas Self - patient is the insured [id number] [facility] 19 [address] [facility] [phone] Frankie Salas Self - patient is the insured [id number] [employer] 19 [facility] [address] [facility] [phone] [address] Frankie Salas Self - patient is the insured [id number] MEDICATIONS ADMINISTERED Medication Instructions Date of Administration Dosage TESTOSTERONE (PT'S OWN) Oct, 100 mg Ketorolac Tromethamine Dec, 60 mg Ketorolac Tromethamine Aug, 2 mL TORADOL 30 MG/2ML (KETOROLAC) May, 60 mg DEPO MEDROL 80 MG/ML Feb, 80 mg Dexamethasone Nov, 1 mL TESTOSTERONE (PT'S OWN) Mar, 100 mg DEPO-Medrol Nov, 1 mL KENALOG 40 MG/ML (PER 10 MG) Apr, 80 mg KENALOG 40 MG/ML (PER 10 MG) Aug, 80 mg DEPO MEDROL 40 MG/ML Jun, 40 mg TESTOSTERONE (PT'S OWN) May, 0.5 mL TESTOSTERONE (PT'S OWN) Apr, 100 mg TESTOSTERONE (PT'S OWN) Dec, 0.5 mL TESTOSTERONE (PT'S OWN) Nov, 0.5 mg Ketorolac Tromethamine Nov, 1 mL DEXAMETHASONE 4MG/ML (PER 1 ML) Jun, 4 mg TESTOSTERONE (PT'S OWN) Mar, 200 mg SOLUMEDROL (UP TO 125 MG) Feb, 62.5 m g
--- OUTSIDE RECORDS SUMMARY | 2023-03-02 17:54 | XMS REPORT ---
Author Author [facility] Address Unknown Phone Unavailable Care Team Providers Care Dot Compliance Manager Name Role Phone MILY HAY Unavailable PROBLEMS Type Condition ICD9-CM Code BBC50-RB Code Onset Dates Condition S tatus W/U Status Risk SNOMED Code Notes Problem Seasonal allergies J30.2 confirmed 4 [id number] Problem Other chronic pain G89.29 confirmed 8 8048635 Problem Hypogonadism in male E29.1 confirmed 88465780 Problem Uncontrolled type 2 diabetes mellitus with hyperglycemia E11.65 confirmed 299099264 Problem Morbid obesity due to excess calories E66.01 confirmed 459457545 Problem Major depressive disorder F32.9 confirmed 666487490 Problem Anxiety F41.9 confirmed 61410277 Problem Gastro-esophageal reflux disease with esophagiti s, without bleeding K21.00 confirmed 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.4 conf irmed 378401176 Problem BMI 45.0-49.9, adult Z68.42 confirmed 295554779 Problem Chronic fatigue R53.82 confirmed 5270 2003 Problem Type 2 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 confirmed 34670040 Problem Mild episode of recurrent major depressive disorder F33.0 confirmed 320643067 Problem Hyperlipidemia, mixed E78.2 confirmed 258331334 Problem Major depressive disorder with current active episode F33.9 confirmed 89470882 Problem Primary insomnia F51.01 confirmed 397 2004 Problem GERD with esophagitis K21.0 confirmed 628034278 Problem Gastroparesis K31.84 confirmed 798278 006 Problem Type 2 diabetes mellitus with diabetic autonomic (poly)neuropathy E11.43 confirmed 221470666 Problem Diverticulitis K57.92 confirmed 01902 6006 Problem Neuropathy G62.9 confirmed 851757914 Problem KHADAR (obstructive sleep apnea) G47.33 confirm ed 45243573 Problem Diabetic mononeuropathy associated with type 2 d iabetes mellitus E11.41 confirmed 581730970 Problem Arthritis M19.90 confirmed 6860085 Problem Chronic sinusitis, unspecified J32.9 confir med 877478482 Problem Pure hypercholesterolemia E78.00 confirmed 913404201 Problem Allergic rhinitis, unspecified seasonality, unspecifie d trigger J30.9 confirmed 13774995 Problem Type 2 diabetes mellitus with other specified complication E11.69 confirmed 01419776190998 Problem Pure hyperglyceridemia E78.1 confirmed 706243645 Problem Insulin resistance E88.81 confirmed 7 95176939 Problem Type 2 diabetes mellitus with diabetic neuropathy, uns pecified E11.40 confirmed 7376904413861 Problem Muscle spasm of both lower legs M62.838 conf irmed 33258005 Problem Irritable bowel syndrome with diarrhea K58.0 confirmed 497522801 Problem High triglycerides E78.1 confirmed 3 59995922 Problem Esophageal erosions K22.10 confirmed 517703432 Problem Comprehensive diabetic foot examination, type 2 DM, encounter for E11.9 confirmed 29209201 Problem Non-seasonal allergic rhinitis due to other allergic marcellus er J30.89 confirmed 17111226 Problem Insomnia G47.00 confirmed 083677755 Problem Poor diet E63.9 confirmed 279349755 Problem Essential (primary) hypertension I10 conf irmed 02483711 Problem Generalized anxiety disorder F41.1 confirme d 87401206 Problem Diverticular disease K57.90 confirmed 557050861 Problem Autism spectrum F84.0 confirmed 3591 9005 Problem Type 2 diabetes mellitus with ketoacidosis without coma E11.10 confirmed 194114233 Problem Diabetic polyneuropathy associated with type 2 d iabetes mellitus E11.42 confirmed 47311797 Problem Anxiety disorder F41.9 confirmed 197 066562 Problem Type 2 diabetes mellitus with hyperglycemia E11.65 confirmed 734317081 Problem Attention deficit hyperactivity disorder F90.9 confirmed 432530249 Problem Acute right-sided low back pain with right-sided sciatica M54.41 confirmed 872189214 Problem BMI 50.0-59.9, adult Z68.43 confirmed 961437291 Problem Major depressive disorder, recurrent, moderate F33.1 confirmed 04103667 Problem Pulmonary hypertension I27.20 confirmed 41943550 Problem Chronic gingivitis, plaque induced K05.10 co nfirmed 90409874 Problem Other chronic gastritis without hemorrhage K29.50 confirmed 5557147 Problem Essential hypertension I10 confirmed 83150375 Problem Other chronic pain G89.29 confirmed 8 1259095 Problem Lumbago with sciatica, left side M54.42 conf irmed 303609907 Problem Gastroesophageal reflux disease with esophagitis without hemorrhage K21.00 confirmed 662866496 Problem Autism disorder F84.0 confirmed 4088 02363 Problem Mixed hyperlipidemia E78.2 confirmed 809282420 ALLERGIES Allergen (clinical drug ingredient) Drug/Non Drug Allergy do cumented on EMR Reaction Allergy Type Onset Date Status albuterol Albuterol Unknown Drug Allergy Active sertraline Zoloft([facility] Code:[address]-85) hives adverse reaction Drug Allergy Active semaglutide Ozempic (0.25 or 0.5 MG/DOSE)([facility] Code:01890-131 10-02) Unknown Drug Allergy Active clindamycin Clindamycin HCl([facility] Code:[address]-17) itching Drug A llergy Active BuSpar local swelling Drug Allergy Active Wellbutrin "out of it" Drug Allergy Active ENCOUNTERS from 1978 to 2023-01-11 Encounter Location Date Provider Diagnosis [facility] [address] [facility] [id number] [place] [address] January, MILY HAY IMMUNIZATIONS Vaccine Route Administration Date Status tdap (history) Unknown Jul 06, 2007 Administered td adult 2 Lf tetanus toxoid, preservative free, adsorbed (h istory) Unknown January 30, 1993 Administered Influenza (split), preservative free, 6-35 months Unknown Jul 06, 2007 Administered Influenza (split), preservative free, 6-35 months Unknown Jul 18, 1999 Administered SOCIAL HISTORY Sex Assigned At : [...] Notes Start Da te End Date Status Aspirin Low Dose 81 MG TAKE ONE (1) TABLET BY MOUTH ONCE DAILY for 30 Active Mounjaro 2.5 MG/0.5ML INJECT 2.5MG SUBCUTANEOUSLY (UNDER THE SKIN) ONCE WEEKLY for 28 Active tiZANidine HCl 4 MG 1 tablet Orally TID PRN for 30 days Active Nebulizer System All-In-One - as directed by inhalation route as needed Jun, Active amLODIPine Besylate 5 MG TAKE ONE (1) TABLET BY MOUTH ONCE DAILY for 30 Active Lyrica 150 MG 1 capsule Orally three times a day for 2 8 days pt states four times a day Nov, Active Pen Emily 32G X 4 MM use with insulin pens for in jection subcutaneously 3 times a day for 30 days Feb, Active Mirtazapine 30 MG 1 tablet at bedtime Orally Once a day for 30 days Active Lisinopril 40 MG TAKE ONE (1) TABLET BY MOUTH ONCE DAILY for 90 Active Pantoprazole Sodium 40 MG TAKE ONE (1) TABLET BY MOUTH ONCE DAILY for 30 Active ProAir HFA as directed prn Not-Takin g Mounjaro 5 MG/0.5ML INJECT 5MG SUBCUTANEOUSLY (U NDER THE SKIN) ONCE EVERY WEEK for 28 .5 weekly Not-Taking Blood Glucose Monitor System w/Device as directed subc utaneously qid for 30 days device brand that is covered by insurance Jun, Active Blood Glucose Test - as directed In Vitro 4 times a day for 30 days One Touch Ultra 2 Jun, Active Ezetimibe 10 MG 1 tablet Orally Once a day for 90 days Jun, Active Vitamin D (Cholecalciferol) 25 mcg (1000 ut) 1 capsule Orally Once a day for 90 days January, Active Nystatin 231994 UNIT/GM 1 application Externally Twice a day for 10 days Oct, Active clonazePAM 1 MG 0.5-1 tablet Orally daily as needed for anxiety for 28 days prn Oct, Active Biotin 10 MG TAKE ONE (1) CAPSULE BY MOUTH ONCE DAILY for 30 Active Ambien 10 MG 0.5-1 tab Orally at night as needed for sleep for 28 day s PRN Active Albuterol Sulfate HFA 108 (90 Base) MCG/ACT INHALE TWO (2) PUFFS BY MOUTH EVERY FOUR (4) HOURS NEEDED FOR SHORTNESS OF BREATH for 16 Active Xopenex 1.25 MG/3ML 3 ml Inhalation every 8 hrs for 14 days prn Sep, Active Dicyclomine HCl 20 MG 1 tablet Orally four times a day as needed for 30 days Dec, Active Atorvastatin Calcium 80 MG TAKE ONE (1) TABLET BY MOUTH ONCE A DAY for 90 days Active Cetirizine HCl 10 MG TAKE ONE (1) TABLET BY MOUTH ONCE DAILY (MUST HAVE APPOINTMENT FOR REFILL) for 30 prn A ctive Fluticasone Propionate 50 MCG/ACT INSTILL ONE (1) SPRA Y INTO EACH NOSTRIL ONCE DAILY for 60 Active HumuLIN R U-500 KwikPen 500 UNIT/ML 200 Units SC AC 5 days 30 units before meals Subcutaneous three times daily for 30 days 200 units per meal 3 meals a day Active Gvoke HypoPen 2-Pack 1 MG/0.2ML as directed [facility] for severe hypoglycemia PRN low bs Jun, Active hydroCHLOROthiazide 25 MG Take one tablet orally prn for 30 days As n eeded Active Ibuprofen 800 MG 1 tablet with food or milk a s needed Orally every 8 hours prn for 30 days Aug, Active PROCEDURES No Information RESULTS No Results REASON FOR VISIT Requests return call MEDICAL (GENERAL) HISTORY Type Description Date Medical [...] Surgical History colonoscopy 02/2021 Hospitalization History [facility] for diabetes 09/2011 Hospitalization History [facility] diabetic issues 09/2015 Hospitalization History [facility] Pneumonia 01/2016 Hospitalization History celluitis of the left upper thigh-[facility] H 04/2017 Hospitalization History [facility]-in[facility] psych 4 day stay 201 4 Hospitalization History ED [place]- Shaking, unsure of blood sugar level 11/20/2017 Hospitalization History ER visit for ketosis 08/07 Hospitalization History [facility] ER, seen for Dehydration 10/2018 Hospitalization History Fell at home 04/2019 Hospitalization History chest pain, jaw pain, SOA, h eart tests, x2 day, [place] 11/2020 Hospitalization History DKA 10/01/21 Hospitalization History DKA covid 19 about 5 days 05/2022 Goals Section No Information Health Concerns No Information MEDICAL EQUIPMENT No Information MENTAL STATUS No Information FUNCTIONAL STATUS No Information ASSESSMENTS No Information PLAN OF TREATMENT Next Appt Details Provider Name:ZACHARY LEVIN, 2023-01-12 0 2:00:00 PM, [address] [place] [address], [id number], [place], [address], Provider Name:ZACHARY LEVIN, 2023-01-19 0 2:00:00 PM, [address] [place] [address], [id number], [place], [address], Provider Name:JENNIFER RANDALL, 2023-01-28 01:00:00 PM, [address] [place] [address], [id number], [place], [address], Provider Name:ESTER NAGY, 09:00:00 AM, [address] [place] [address], [id number], [place], [address], Provider Name:ZACHARY LEVIN, 2023-02-22 0 2:40:00 PM, [address] [facility], [id number], [place], [address], Provider Name:ZACHARY LEVIN, 2023-04-20 0 3:20:00 PM, [address] [facility], [id number], [place], [address], Insurance Providers Payer Name Payer Address Payer Phone Insured Name Patient Relati onship to Insured Coverage Start Date Coverage End Date Subscriber Number Group Nu mber [facility] 19 [address] [facility] [phone] Frankie Salas Self - patient is the insured [id number] [facility] Dual Medicare Complete HMO [address] [facility] [address] Frankie Salas Self - patient is the insured [id number] NON [facility] 19 [address] [facility] [address] Frankie Salas Self - patient is the insured [id number] [facility] 19 [address] [facility] [address] Frankie Salas Self - patient is the insured 2022 [id number] [facility] [address] [facility] [address] Frankie Salas Self - patient is the insured [id number] [facility] MEDICARE Part A FI [address] [facility] [id number] Frankie Salas Self - patient is the insured [id number] [employer] 19 [facility] [address] [facility] [facility] [phone] Frankie Salas Self - patient is the insured [id number] [facility] [address] [facility] [address] Frankie Salas Self - patient is the insured [id number] MEDICATIONS ADMINISTERED Medication Instructions Date of Administration Dosage DEPO-Medrol Nov, 1 mL KENALOG 40 MG/ML (PER 10 MG) Apr, 80 mg TESTOSTERONE (PT'S OWN) Mar, 100 mg TESTOSTERONE (PT'S OWN) Apr, 100 mg Dexamethasone Nov, 1 mL Ketorolac Tromethamine Dec, 60 mg DEPO MEDROL 40 MG/ML Jun, 40 mg Ketorolac Tromethamine Nov, 1 mL Ketorolac Tromethamine Aug, 2 mL TORADOL 30 MG/2ML (KETOROLAC) May, 60 mg DEXAMETHASONE 4MG/ML (PER 1 ML) Jun, 4 mg TESTOSTERONE (PT'S OWN) Dec, 0.5 mL TESTOSTERONE (PT'S OWN) Mar, 200 mg TESTOSTERONE (PT'S OWN) Oct, 100 mg TESTOSTERONE (PT'S OWN) Nov, 0.5 mg SOLUMEDROL (UP TO 125 MG) Feb, 62.5 m g KENALOG 40 MG/ML (PER 10 MG) Aug, 80 mg TESTOSTERONE (PT'S OWN) May, 0.5 mL DEPO MEDROL 80 MG/ML Feb, 80 mg
--- OUTSIDE RECORDS SUMMARY | 2023-03-02 17:54 | XMS REPORT ---
Author Author [facility] Address Unknown Phone Unavailable Care Team Providers Care Central Supply Nurse Name Role Phone JENNIFER RANDALL Unavailable PROBLEMS Type Condition ICD9-CM Code [id number] Code Onset Dates Condition S tatus W/U Status Risk SNOMED Code Notes Problem Seasonal allergies J30.2 confirmed 4 [id number] Problem Other chronic pain G89.29 confirmed 8 6916745 Problem Hypogonadism in male E29.1 confirmed 02768949 Problem Uncontrolled type 2 diabetes mellitus with hyperglycemia E11.65 confirmed 040576684 Problem Morbid obesity due to excess calories E66.01 confirmed 652661768 Problem Major depressive disorder F32.9 confirmed 899589027 Problem Anxiety F41.9 confirmed 63945713 Problem Gastro-esophageal reflux disease with esophagiti s, without bleeding K21.00 confirmed Problem superintendent container terminal 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.4 conf irmed 877749213 Problem BMI 45.0-49.9, adult Z68.42 confirmed 562485056 Problem Chronic fatigue R53.82 confirmed 5270 2003 Problem Type 2 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 confirmed 43133751 Problem Mild episode of recurrent major depressive disorder F33.0 confirmed 717397768 Problem Hyperlipidemia, mixed E78.2 confirmed 747034901 Problem Major depressive disorder with current active episode F33.9 confirmed 77258762 Problem Primary insomnia F51.01 confirmed 397 2004 Problem GERD with esophagitis K21.0 confirmed 830036859 Problem Gastroparesis K31.84 confirmed 240013 006 Problem Type 2 diabetes mellitus with diabetic autonomic (poly)neuropathy E11.43 confirmed 029781632 Problem Diverticulitis K57.92 confirmed 63765 6006 Problem Neuropathy G62.9 confirmed 159761685 Problem KHADAR (obstructive sleep apnea) G47.33 confirm ed 00668621 Problem Diabetic mononeuropathy associated with type 2 d iabetes mellitus E11.41 confirmed 930975059 Problem Arthritis M19.90 confirmed 6908659 Problem Chronic sinusitis, unspecified J32.9 confir med 095553158 Problem Pure hypercholesterolemia E78.00 confirmed 098415758 Problem Allergic rhinitis, unspecified seasonality, unspecifie d trigger J30.9 confirmed 11747736 Problem Type 2 diabetes mellitus with other specified complication E11.69 confirmed 73306751147643 Problem Pure hyperglyceridemia E78.1 confirmed 113588541 Problem Insulin resistance E88.81 confirmed 7 22581902 Problem Type 2 diabetes mellitus with diabetic neuropathy, uns pecified E11.40 confirmed 5939971593795 Problem Muscle spasm of both lower legs M62.838 conf irmed 16403834 Problem Irritable bowel syndrome with diarrhea K58.0 confirmed 584667471 Problem High triglycerides E78.1 confirmed 3 47634736 Problem Esophageal erosions K22.10 confirmed 231863687 Problem Comprehensive diabetic foot examination, type 2 DM, encounter for E11.9 confirmed 46186647 Problem Non-seasonal allergic rhinitis due to other allergic marcellus er J30.89 confirmed 52306192 Problem Insomnia G47.00 confirmed 084720885 Problem Poor diet E63.9 confirmed 897580653 Problem Essential (primary) hypertension I10 conf irmed 45956194 Problem Generalized anxiety disorder F41.1 confirme d 88990991 Problem Diverticular disease K57.90 confirmed 160299208 Problem Autism spectrum F84.0 confirmed 3591 9005 Problem Type 2 diabetes mellitus with ketoacidosis without coma E11.10 confirmed 851841791 Problem Diabetic polyneuropathy associated with type 2 d iabetes mellitus E11.42 confirmed 76582036 Problem Anxiety disorder F41.9 confirmed 197 242192 Problem Type 2 diabetes mellitus with hyperglycemia E11.65 confirmed 355479521 Problem Attention deficit hyperactivity disorder F90.9 confirmed 040443223 Problem Acute right-sided low back pain with right-sided sciatica M54.41 confirmed 203004485 Problem BMI 50.0-59.9, adult Z68.43 confirmed 671351182 Problem Major depressive disorder, recurrent, moderate F33.1 confirmed 57598735 Problem Pulmonary hypertension I27.20 confirmed 34588048 Problem Chronic gingivitis, plaque induced K05.10 co nfirmed 27914413 Problem Other chronic gastritis without hemorrhage K29.50 confirmed 6561208 Problem Essential hypertension I10 confirmed 11418298 Problem Other chronic pain G89.29 confirmed 8 5587688 Problem Lumbago with sciatica, left side M54.42 conf irmed 587824492 Problem Gastroesophageal reflux disease with esophagitis without hemorrhage K21.00 confirmed 896311365 Problem Autism disorder F84.0 confirmed 4088 14652 Problem Mixed hyperlipidemia E78.2 confirmed 397683894 ALLERGIES Allergen (clinical drug ingredient) Drug/Non Drug Allergy do cumented on EMR Reaction Allergy Type Onset Date Status albuterol Albuterol Unknown Drug Allergy Active sertraline Zoloft([facility] Code:[address]-67) hives adverse reaction Drug Allergy Active semaglutide Ozempic (0.25 or 0.5 MG/DOSE)([facility] Code:58921-167 10-02) Unknown Drug Allergy Active clindamycin Clindamycin HCl([facility] Code:[address]-22) itching Drug A llergy Active BuSpar local swelling Drug Allergy Active Wellbutrin "out of it" Drug Allergy Active ENCOUNTERS from 1978 to 2023-01-20 Encounter Location Date Provider Diagnosis [facility] [address] [facility] [id number] [place] [address] January, JENNIFER SCHAFERCHEOBRAVO Autism spectrum F84. 0 IMMUNIZATIONS Vaccine Route Administration Date Status Influenza (split), preservative free, 6-35 months Unknown Jul 18, 1999 Administered Influenza (split), preservative free, 6-35 months Unknown Jul 06, 2007 Administered tdap (history) Unknown Jul 06, 2007 Administered td adult 2 Lf tetanus toxoid, preservative free, adsorbed (h istory) Unknown January 30, 1993 Administered SOCIAL HISTORY Sex Assigned At : [...] REASON FOR REFERRAL No Information VITAL SIGNS Height 70 in January, Weight 342.7 lbs January, Weight-kg 155.45 kg January, Temperature 97.8 degrees Fahrenheit January, Heart Rate 74 bpm January, Respiratory Rate 20 bpm January, Oximetry 97 % January, BMI 49.17 kg/m2 January, Blood pressure systolic 128 mmHg January, Blood pressure diastolic 76 mmHg January, MEDICATIONS Medication SIG (Take, Route, Frequency, Duration) Notes Start Da te End Date Status tiZANidine HCl 4 MG 1 tablet Orally TID PRN for 30 days Active Albuterol Sulfate HFA 108 (90 Base) MCG/ACT INHALE TWO (2) PUFFS BY MOUTH EVERY FOUR (4) HOURS NEEDED FOR SHORTNESS OF BREATH for 16 Active Atorvastatin Calcium 80 MG TAKE ONE (1) TABLET BY MOUTH ONCE A DAY for 90 days Active Synjardy XR 12.5-1000 MG 2 tabs with breakfast Orally Once a day for 90 days (replaces Invokamet as this was denied by insurance) Oct, Active Xopenex 1.25 MG/3ML 3 ml Inhalation every 8 hrs for 14 days prn Sep, Active Pen [place] 32G X 4 MM use with insulin pens for in jection subcutaneously 3 times a day for 30 days Feb, Active Mounjaro 2.5 MG/0.5ML INJECT 2.5MG SUBCUTANEOUSLY (UNDER THE SKIN) ONCE WEEKLY for 28 Active Aspirin Low Dose 81 MG TAKE ONE (1) TABLET BY MOUTH ONCE DAILY for 30 Active Nebulizer System All-In-One - as directed by inhalation route as needed Jun, Active ProAir HFA as directed prn Not-Takin g amLODIPine Besylate 5 MG TAKE ONE (1) TABLET BY MOUTH ONCE DAILY for 30 Active Mirtazapine 30 MG 1 tablet at bedtime Orally Once a day for 30 days Active Lisinopril 40 MG TAKE ONE (1) TABLET BY MOUTH ONCE DAILY for 90 Active Blood Glucose Test - as directed In Vitro 4 times a day for 30 days One Touch Ultra 2 Jun, Active Cetirizine HCl 10 MG TAKE ONE (1) TABLET BY MOUTH ONCE DAILY (MUST HAVE APPOINTMENT FOR REFILL) for 30 prn A ctive Lyrica 150 MG 1 capsule Orally three times a day for 2 8 days pt states four times a day January, Active Biotin 10 MG TAKE ONE (1) CAPSULE BY MOUTH ONCE DAILY for 30 Active Ambien 10 MG 0.5-1 tab Orally at night as needed for sleep for 28 day s PRN Active Dicyclomine HCl 20 MG 1 tablet Orally four times a day as needed for 30 days Dec, Active Blood Glucose Monitor System w/Device as directed subc utaneously qid for 30 days device brand that is covered by insurance Jun, Active Pantoprazole Sodium 40 MG TAKE ONE (1) TABLET BY MOUTH ONCE DAILY for 30 Active Nystatin 719984 UNIT/GM 1 application Externally Twice a day for 10 days Oct, Active Mounjaro 5 MG/0.5ML INJECT 5MG SUBCUTANEOUSLY (U NDER THE SKIN) ONCE EVERY WEEK for 28 .5 weekly Not-Taking Ezetimibe 10 MG 1 tablet Orally Once a day for 90 days Jun, Active Vitamin D (Cholecalciferol) 25 mcg (1000 ut) 1 capsule Orally Once a day for 90 days January, Active clonazePAM 1 MG 0.5-1 tablet Orally daily as needed for anxiety for 28 days prn Oct, Active Fluticasone Propionate 50 MCG/ACT INSTILL ONE [...] Information RESULTS No Results REASON FOR VISIT Psychiatric intake- ALEXIS Schwartz MEDICAL (GENERAL) HISTORY Type Description Date Medical [...] Surgical History colonoscopy 02/2021 Hospitalization History [facility] [place] for diabetes 09/2011 Hospitalization History [facility] diabetic issues 09/2015 Hospitalization History [facility] Pneumonia 01/2016 Hospitalization History celluitis of the left upper thigh-[facility] 04/2017 Hospitalization History [facility]-inpatient psych 4 day stay 201 4 Hospitalization History ED [place]- Shaking, unsure of blood sugar level 11/20/2017 Hospitalization History ER visit for ketosis 08/[address] [facility] ER, seen for Dehydration 10/2018 Hospitalization History Fell at home 04/2019 Hospitalization History chest pain, jaw pain, SOA, h eart tests, x2 day, [facility] [place] 11/2020 Hospitalization History DKA 10/01/21 Hospitalization History DKA covid 19 about 5 days 05/2022 Goals Section No Information Health Concerns No Information MEDICAL EQUIPMENT No Information MENTAL STATUS No Information FUNCTIONAL STATUS No Information ASSESSMENTS Encounter Date Diagnosis Assessment Notes Treatment Notes Treatm ent Clinical Notes January, Autism spectrum (ICD-10 - F84.0) Learning About Autism Spectrum Disorder (ASD) in Adults material was published We discussed safety. Patient knows that in the event of emergency they can call crisis line, call 911 or present to the ED. They know to call for any questions or concerns in the meantime and if need to be seen sooner to call. Crisis Lines: [facility] 24 hour Confidential Emotional Support Line [place] Crisis Hotline/ National Suicide Prevention Life Line [facility][1] 24 Hour Crisis Line [phone] crisis line PLAN OF TREATMENT Medication Medication Name Sig Start Date Stop Date Synjardy XR 12.5-1000 MG 2 tabs with breakfast Orally Once a day for 90 days Oct, Lyrica 150 MG 1 capsule Orally three times a day for 28 days 0 January, Treatment Notes Assessment Notes Clinical Notes Autism spectrum Learning About Autism Spectr um Disorder (ASD) in Adults material was published We discussed safety. Patient knows that in the event of emergency they can call crisis line, call 911 or present to the ED. They know to call for any questions or concerns in the meantime and if need to be seen sooner to call. Crisis Lines: [facility] 24 hour Confidential Emotional Support Line [place] Crisis Hotline/ National Suicide Prevention Life Line [facility][1] 24 Hour Crisis Line [phone]-[facility] crisis line Next Appt Details 4 Weeks Reason: Provider Name:ZACHARY LEVIN, 2023-01-26 0 2:00:00 PM, [address] [facility], [id number], [place], [address], Provider Name:JENNFIER RANDALL, 2023-01-28 01:00:00 PM, [address] [facility], [id number], [place], [address], Provider Name:ZACHARY LEVIN 2023-02-02 0 2:00:00 PM, [address] [facility], [id number], [place], [address], Provider Name:ZACHARY LEVIN 2023-02-09 0 2:00:00 PM, [address] [facility], [id number], [place], [address], Provider Name:ZACHARY LEVIN, 2023-02-16 0 2:00:00 PM, [address] [facility], [id number], [place], [address], Provider Name:ESTER NAGY, 09:00:00 AM, [address] [facility], [id number], [place], [address], Provider Name:ZACHARY OLLIE, 2023-02-22 0 2:40:00 PM, [address] [facility], [id number], [place], [address], Provider Name:ZACHARY LEVIN, 2023-04-20 0 3:20:00 PM, [address] [place] [address], [id number], [place], [address], Insurance Providers Payer Name Payer Address Payer Phone Insured Name Patient Relati onship to Insured Coverage Start Date Coverage End Date Subscriber Number Group Nu mber [facility] [address] [facility] 532 01 Frankie Salas Self - patient is the insured [id number] [facility] [address] [facility] [address] Frankie Salas Self - patient is the insured [id number] [facility] Dual Medicare Complete HMO [address] [facility] [phone] Frankie Salas Self - patient is the insured 2019 [id number] [facility] [address] [facility] [address] Frankie Salas Self - patient is the insured [id number] [facility] 19 [address] [facility] [phone] Frankie Salas Self - patient is the insured [id number] [place] [address] [address] [facility] [address] Frankie Salas Self - patient is the insured [id number] [facility] MEDICARE Part A FI [address] [facility] [id number] Frankie Salas Self - patient is the insured [id number] [facility] [address] [facility] [address] [phone] Frankie Salas Self - patient is the insured [id number] MEDICATIONS ADMINISTERED Medication Instructions Date of Administration Dosage KENALOG 40 MG/ML (PER 10 MG) Aug, 80 mg TESTOSTERONE (PT'S OWN) Apr, 100 mg TESTOSTERONE (PT'S OWN) Nov, 0.5 mg TESTOSTERONE (PT'S OWN) Dec, 0.5 mL TORADOL 30 MG/2ML (KETOROLAC) May, 60 mg TESTOSTERONE (PT'S OWN) Oct, 100 mg DEPO-Medrol Nov, 1 mL TESTOSTERONE (PT'S OWN) Mar, 200 mg KENALOG 40 MG/ML (PER 10 MG) Apr, 80 mg Ketorolac Tromethamine Aug, 2 mL SOLUMEDROL (UP TO 125 MG) Feb, 62.5 m g Ketorolac Tromethamine Dec, 60 mg DEPO MEDROL 80 MG/ML Feb, 80 mg Dexamethasone Nov, 1 mL Ketorolac Tromethamine Nov, 1 mL TESTOSTERONE (PT'S OWN) Mar, 100 mg TESTOSTERONE (PT'S OWN) May, 0.5 mL DEXAMETHASONE 4MG/ML (PER 1 ML) Jun, 4 mg DEPO MEDROL 40 MG/ML Jun, 40 mg
--- OUTSIDE RECORDS SUMMARY | 2023-03-02 17:54 | XMS REPORT ---
Author Author [facility] Address Unknown Phone Unavailable Care Team Providers Care Ob Scrub Tech Name Role Phone SHELLY POLANCO Unavailable PROBLEMS Type Condition ICD9-CM Code SXR10-RX Code Onset Dates Condition S tatus W/U Status Risk SNOMED Code Notes Problem Seasonal allergies J30.2 confirmed 4 61439102 Problem Other chronic pain G89.29 confirmed 8 4324896 Problem Hypogonadism in male E29.1 confirmed 12985684 Problem Uncontrolled type 2 diabetes mellitus with hyperglycemia E11.65 confirmed 045676834 Problem Morbid obesity due to excess calories E66.01 confirmed 131969530 Problem Major depressive disorder F32.9 confirmed 504425663 Problem Anxiety F41.9 confirmed 31980024 Problem Gastro-esophageal reflux disease with esophagiti s, without bleeding K21.00 confirmed Problem intermediate manager 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.4 conf irmed 446530908 Problem BMI 45.0-49.9, adult Z68.42 confirmed 477213215 Problem Chronic fatigue R53.82 confirmed 5270 2003 Problem Type 2 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 confirmed 68572419 Problem Mild episode of recurrent major depressive disorder F33.0 confirmed 162513688 Problem Hyperlipidemia, mixed E78.2 confirmed 126641335 Problem Major depressive disorder with current active episode F33.9 confirmed 65479844 Problem Primary insomnia F51.01 confirmed 397 2004 Problem GERD with esophagitis K21.0 confirmed 935322432 Problem Gastroparesis K31.84 confirmed 665980 006 Problem Type 2 diabetes mellitus with diabetic autonomic (poly)neuropathy E11.43 confirmed 275534467 Problem Diverticulitis K57.92 confirmed 91593 6006 Problem Neuropathy G62.9 confirmed 660549695 Problem KHADAR (obstructive sleep apnea) G47.33 confirm ed 50276974 Problem Diabetic mononeuropathy associated with type 2 d iabetes mellitus E11.41 confirmed 204169444 Problem Arthritis M19.90 confirmed 2746831 Problem Chronic sinusitis, unspecified J32.9 confir med 265375689 Problem Pure hypercholesterolemia E78.00 confirmed 557232531 Problem Allergic rhinitis, unspecified seasonality, unspecifie d trigger J30.9 confirmed 55022999 Problem Type 2 diabetes mellitus with other specified complication E11.69 confirmed [id number] Problem Pure hyperglyceridemia E78.1 confirmed 799048617 Problem Insulin resistance E88.81 confirmed 7 52395696 Problem Type 2 diabetes mellitus with diabetic neuropathy, uns pecified E11.40 confirmed 4336584104155 Problem Muscle spasm of both lower legs M62.838 conf irmed 97996638 Problem Irritable bowel syndrome with diarrhea K58.0 confirmed 914459895 Problem High triglycerides E78.1 confirmed 3 90688501 Problem Esophageal erosions K22.10 confirmed 724944606 Problem Comprehensive diabetic foot examination, type 2 DM, encounter for E11.9 confirmed 22033741 Problem Non-seasonal allergic rhinitis due to other allergic marcellus er J30.89 confirmed 65281067 Problem Insomnia G47.00 confirmed 184559751 Problem Poor diet E63.9 confirmed 602224023 Problem Essential (primary) hypertension I10 conf irmed 31046568 Problem Generalized anxiety disorder F41.1 confirme d 88558221 Problem Diverticular disease K57.90 confirmed 207571974 Problem Autism spectrum F84.0 confirmed 3591 9005 Problem Type 2 diabetes mellitus with ketoacidosis without coma E11.10 confirmed 469859939 Problem Diabetic polyneuropathy associated with type 2 d iabetes mellitus E11.42 confirmed 86730903 Problem Anxiety disorder F41.9 confirmed 197 339553 Problem Type 2 diabetes mellitus with hyperglycemia E11.65 confirmed 364762608 Problem Attention deficit hyperactivity disorder F90.9 confirmed 157205143 Problem Acute right-sided low back pain with right-sided sciatica M54.41 confirmed 812942830 Problem BMI 50.0-59.9, adult Z68.43 confirmed 628492689 Problem Major depressive disorder, recurrent, moderate F33.1 confirmed 65776307 Problem Pulmonary hypertension I27.20 confirmed 24643656 Problem Chronic gingivitis, plaque induced K05.10 co nfirmed 72014842 Problem Other chronic gastritis without hemorrhage K29.50 confirmed 5025123 Problem Essential hypertension I10 confirmed 04411336 Problem Other chronic pain G89.29 confirmed 8 4749677 Problem Lumbago with sciatica, left side M54.42 conf irmed 218822040 Problem Gastroesophageal reflux disease with esophagitis without hemorrhage K21.00 confirmed 715538676 Problem Autism disorder F84.0 confirmed 4088 44068 Problem Mixed hyperlipidemia E78.2 confirmed 129937603 ALLERGIES Allergen (clinical drug ingredient) Drug/Non Drug Allergy do cumented on EMR Reaction Allergy Type Onset Date Status albuterol Albuterol Unknown Drug Allergy Active sertraline Zoloft([facility] Code:[address]-59) hives adverse reaction Drug Allergy Active semaglutide Ozempic (0.25 or 0.5 MG/DOSE)([facility] Code:83240-907 10-02) Unknown Drug Allergy Active clindamycin Clindamycin HCl([facility] Code:[address]-69) itching Drug A llergy Active BuSpar local swelling Drug Allergy Active Wellbutrin "out of it" Drug Allergy Active ENCOUNTERS from 1978 to 2023-02-06 Encounter Location Date Provider Diagnosis [facility] [id number] [place] [address] Feb, SHELLY POLANCO Non-recurrent acute suppurative otitis media of both ears without spontaneous rupture of tympanic membranes H66.003 IMMUNIZATIONS Vaccine Route Administration Date Status Influenza [...] No Information VITAL SIGNS Height 70 in Feb, Height-cm 177.8 cm Feb, Weight 340.8 lbs Feb, Weight-kg 154.58 kg Feb, Temperature 97.8 degrees Fahrenheit Feb, Heart Rate 95 bpm Feb, Respiratory Rate 22 bpm Feb, Oximetry 100 % Feb, BMI 48.89 kg/m2 Feb, Blood pressure systolic 122 mmHg Feb, Blood pressure diastolic 71 mmHg Feb, MEDICATIONS Medication SIG (Take, Route, Frequency, Duration) Notes Start Da te End Date Status hydroCHLOROthiazide 25 MG Take one tablet orally prn for 30 days As n eeded Active Pantoprazole Sodium 40 MG TAKE ONE (1) TABLET BY MOUTH ONCE DAILY for 30 Not-Taking Ibuprofen 800 MG 1 tablet with food or milk a s needed Orally every 8 hours prn for 30 days Aug, Active Pen Guide Rock 32G X 4 MM use with insulin pens for in jection subcutaneously 3 times a day for 30 days Feb, Active tiZANidine HCl 4 MG 1 tablet Orally TID PRN for 30 days Active Gvoke HypoPen 2-Pack 1 MG/0.2ML as directed Subcutaneo us for severe hypoglycemia PRN low bs Jun, Active Nebulizer System All-In-One - as directed by inhalation route as needed Jun, Active HumuLIN R U-500 KwikPen 500 UNIT/ML 200 Units SC AC 5 days 30 units before meals Subcutaneous three times daily for 30 days 200 units per meal 3 meals a day Active Nystatin 025739 UNIT/GM 1 application Externally Twice a day for 10 days Oct, Active Cetirizine HCl 10 MG TAKE ONE (1) TABLET BY MOUTH ONCE DAILY (MUST HAVE APPOINTMENT FOR REFILL) for 30 prn A ctive Fluticasone Propionate 50 MCG/ACT INSTILL ONE (1) SPRA Y INTO EACH NOSTRIL ONCE DAILY for 60 Active Mounjaro 2.5 MG/0.5ML INJECT 2.5MG SUBCUTANEOUSLY (UNDER THE SKIN) ONCE WEEKLY for 28 Active Vitamin D (Cholecalciferol) 25 mcg (1000 ut) 1 capsule Orally Once a day for 90 days January, Active Dicyclomine HCl 20 MG 1 tablet Orally four times a day as needed for 30 days Dec, Active Mounjaro 5 MG/0.5ML INJECT 5MG SUBCUTANEOUSLY (U NDER THE SKIN) ONCE EVERY WEEK for 28 .5 weekly Not-Taking amLODIPine Besylate 5 MG TAKE ONE (1) TABLET BY MOUTH ONCE DAILY for 30 Active Xopenex 1.25 MG/3ML 3 ml Inhalation every 8 hrs for 14 days prn Sep, Active clonazePAM 1 MG 0.5-1 tablet Orally daily as needed for anxiety for 28 days Active Albuterol Sulfate HFA 108 (90 Base) MCG/ACT INHALE TWO (2) PUFFS BY MOUTH EVERY FOUR (4) HOURS NEEDED FOR SHORTNESS OF BREATH for 16 Active Lyrica 150 MG 1 capsule Orally three times a day for 2 8 days pt states four times a day January, Active Ezetimibe 10 MG 1 tablet Orally Once a day for 90 days Jun, Active Synjardy XR 12.5-1000 MG 2 tabs with breakfast Orally Once a day for 90 days (replaces Invokamet as this was denied by insurance) Oct, Active Mirtazapine 30 MG 1 tablet at bedtime Orally Once a day for 30 days Active Ambien 10 MG 0.5-1 tab Orally at night as needed for sleep for 28 day s PRN Active Lisinopril 40 MG TAKE ONE (1) TABLET BY MOUTH ONCE DAILY for 90 Active ProAir HFA as directed prn Not-[place] Aspirin Low Dose 81 MG TAKE ONE (1) TABLET BY MOUTH ONCE DAILY for 30 Active Biotin 10 MG TAKE ONE (1) CAPSULE BY MOUTH ONCE DAILY for 30 Active Atorvastatin Calcium 80 MG TAKE ONE (1) TABLET BY MOUTH ONCE A DAY for 90 days Active Blood Glucose Monitor System w/Device as directed subc utaneously qid for 30 days device brand that is covered by insurance Jun, Active Blood Glucose Test - as directed In Vitro 4 times a day for 30 days One Touch Ultra 2 Jun, Active PROCEDURES No Information RESULTS No Results REASON FOR VISIT Ear pain/esophagus pain. Bilateral ear pain x's 2-3 days. Pt also reports having esophageal pain x's 2-3 days as well.-[facility], Medication list verbally dionne ified with pt in office.-[facility] MEDICAL (GENERAL) HISTORY Type Description Date Medical [...] Surgical History colonoscopy 02/2021 Hospitalization History [facility] for diabetes 09/2011 Hospitalization History [facility] diabetic issues 09/2015 Hospitalization History [facility] Pneumonia 01/2016 Hospitalization History celluitis of the left upper thigh- H 04/2017 Hospitalization History [facility]inpatient psych 4 day stay 201 4 Hospitalization History ED [place]- Shaking, unsure of blood sugar level 11/20/2017 Hospitalization History ER visit for ketosis 08/07 Hospitalization History [facility] ER, seen for Dehydration 10/2018 Hospitalization History Fell at home 04/2019 Hospitalization History chest pain, jaw pain, SOA, h eart tests, x2 day, [facility] [place] 11/2020 Hospitalization History DKA 10/01/21 Hospitalization History DKA covid 19 about 5 days 05/2022 Goals Section No Information Health Concerns No Information MEDICAL EQUIPMENT No Information MENTAL STATUS No Information FUNCTIONAL STATUS No Information ASSESSMENTS Encounter Date Diagnosis Assessment Notes Treatment Notes Treatm ent Clinical Notes Feb, Non-recurrent acute suppurat bety otitis media of both ears without spontaneous rupture of tympanic membranes (ICD-10 - H66.003) Ear Infection (Otitis Media): Care Instructions material was published Feb, Other Instructed to s top drinking tea if it hurts his throat. PLAN OF TREATMENT Medication Medication Name Sig Start Date Stop Date Mirtazapine 30 MG 1 tablet at bedtime Orally Once a day for 30 d ays clonazePAM 1 MG 0.5-1 tablet Orally daily as needed for anxiety for 28 days Treatment Notes Assessment Notes Clinical Notes Non-recurrent acute suppurative otitis m edia of both ears without spontaneous rupture of tympanic membranes Ear Infection (Otitis Media): Care Instr uctions material was published Next Appt Details prn Reason: Provider Name:ZACHARY LEVIN, 2023-02-09 0 2:00:00 PM, [address] [place] [address], [id number], [place], [address], Provider Name:ZACHARY LEVIN, 2023-02-16 0 2:00:00 PM, [address] [place] [address], [id number], [place], [address], Provider Name:ESTER NAGY, 09:00:00 AM, [address] [place] [address], [id number], [place], [address], Provider Name:ZACHARY LEVIN, 2023-02-22 0 2:40:00 PM, [address] [place] [address], [id number], [place], [address], Provider Name:ZACHARY LEVIN, 2023-04-20 0 3:20:00 PM, [address] [place] [address], [id number], [place], [address], Provider Name:JENNIFER RANDALL, 2023-04-29 02:20:00 PM, [address] [place] [address], [id number], [place], [address], Insurance Providers Payer Name Payer Address Payer Phone Insured Name Patient Relati onship to Insured Coverage Start Date Coverage End Date Subscriber Number Group Barb mon [facility] Dual Medicare Complete HMO [address] [facility] [phone] MaritzaFrankie Belkis Self - patient is the insured 2019 [id number] [facility] Dental [address] [facility] [address] MaritzaFrankie Belkis Self - patient is the insured [id number] [facility] 19 [address] [facility] [address] [phone] MaritzaFrankie Belkis Self - patient is the insured 2022 [id number] [facility] 19 [address] [facility] [phone] Frankie Salas Self - patient is the insured [id number] [employer] 19 [facility] [address] [facility] [phone] MaritzaFrankie Belkis Self - patient is the insured [id number] [facility] 19 [address] [facility] [address] Frankie Salas Self - patient is the insured [id number] [facility] [address] [facility] [address] Frankie Salas Self - patient is the insured [id number] [employer] MEDICARE Part A [address] [facility] [phone] MaritzaFrankie Belkis Self - patient is the insured 2014 [id number] MEDICATIONS ADMINISTERED Medication Instructions Date of Administration Dosage TESTOSTERONE (PT'S OWN) Apr, 100 mg TESTOSTERONE (PT'S OWN) Dec, 0.5 mL Ketorolac Tromethamine Nov, 1 mL Ketorolac Tromethamine Dec, 60 mg KENALOG 40 MG/ML (PER 10 MG) Apr, 80 mg TESTOSTERONE (PT'S OWN) Mar, 200 mg SOLUMEDROL (UP TO 125 MG) Feb, 62.5 m g TESTOSTERONE (PT'S OWN) Mar, 100 mg TESTOSTERONE (PT'S OWN) Nov, 0.5 mg TESTOSTERONE (PT'S OWN) Oct, 100 mg DEPO MEDROL 80 MG/ML Feb, 80 mg Ketorolac Tromethamine Aug, 2 mL TORADOL 30 MG/2ML (KETOROLAC) May, 60 mg DEPO-Medrol Nov, 1 mL KENALOG 40 MG/ML (PER 10 MG) Aug, 80 mg TESTOSTERONE (PT'S OWN) May, 0.5 mL DEXAMETHASONE 4MG/ML (PER 1 ML) Jun, 4 mg Dexamethasone Nov, 1 mL DEPO MEDROL 40 MG/ML Jun, 40 mg
--- OUTSIDE RECORDS SUMMARY | 2023-03-02 17:54 | XMS REPORT ---
Author Author [facility] Address Unknown Phone Unavailable Care Team Providers Care Web Feeder Name Role Phone MILY HAY Unavailable PROBLEMS Type Condition ICD9-CM Code [id number] Code Onset Dates Condition S tatus W/U Status Risk SNOMED Code Notes Problem Seasonal allergies J30.2 confirmed 4 46364920 Problem Other chronic pain G89.29 confirmed 8 7728752 Problem Hypogonadism in male E29.1 confirmed 64361324 Problem Uncontrolled type 2 diabetes mellitus with hyperglycemia E11.65 confirmed 523328746 Problem Morbid obesity due to excess calories E66.01 confirmed 449298494 Problem Major depressive disorder F32.9 confirmed 726092360 Problem Anxiety F41.9 confirmed 51591087 Problem Gastro-esophageal reflux disease with esophagiti s, without bleeding K21.00 confirmed Problem meterman 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.4 conf irmed 154189187 Problem BMI 45.0-49.9, adult Z68.42 confirmed 343991694 Problem Chronic fatigue R53.82 confirmed 5270 2003 Problem Type 2 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 confirmed 76031694 Problem Mild episode of recurrent major depressive disorder F33.0 confirmed 641163689 Problem Hyperlipidemia, mixed E78.2 confirmed 516246790 Problem Major depressive disorder with current active episode F33.9 confirmed 65271677 Problem Primary insomnia F51.01 confirmed 397 2004 Problem GERD with esophagitis K21.0 confirmed 552176118 Problem Gastroparesis K31.84 confirmed 171949 006 Problem Type 2 diabetes mellitus with diabetic autonomic (poly)neuropathy E11.43 confirmed 823300912 Problem Diverticulitis K57.92 confirmed 98753 6006 Problem Neuropathy G62.9 confirmed 559443762 Problem KHADAR (obstructive sleep apnea) G47.33 confirm ed 82510766 Problem Diabetic mononeuropathy associated with type 2 d iabetes mellitus E11.41 confirmed 715024185 Problem Arthritis M19.90 confirmed 0412905 Problem Chronic sinusitis, unspecified J32.9 confir med 992027196 Problem Pure hypercholesterolemia E78.00 confirmed 243791982 Problem Allergic rhinitis, unspecified seasonality, unspecifie d trigger J30.9 confirmed 32219996 Problem Type 2 diabetes mellitus with other specified complication E11.69 confirmed 13058305313499 Problem Pure hyperglyceridemia E78.1 confirmed 644697631 Problem Insulin resistance E88.81 confirmed 7 74525121 Problem Type 2 diabetes mellitus with diabetic neuropathy, uns pecified E11.40 confirmed 8135903214927 Problem Muscle spasm of both lower legs M62.838 conf irmed 73189160 Problem Irritable bowel syndrome with diarrhea K58.0 confirmed 408175705 Problem High triglycerides E78.1 confirmed 3 25717748 Problem Esophageal erosions K22.10 confirmed 003117632 Problem Comprehensive diabetic foot examination, type 2 DM, encounter for E11.9 confirmed 96174387 Problem Non-seasonal allergic rhinitis due to other allergic marcellus er J30.89 confirmed 58503568 Problem Insomnia G47.00 confirmed 855921442 Problem Poor diet E63.9 confirmed 039772625 Problem Essential (primary) hypertension I10 conf irmed 30714272 Problem Generalized anxiety disorder F41.1 confirme d 11919310 Problem Diverticular disease K57.90 confirmed 206817348 Problem Autism spectrum F84.0 confirmed 3591 9005 Problem Type 2 diabetes mellitus with ketoacidosis without coma E11.10 confirmed 316300411 Problem Diabetic polyneuropathy associated with type 2 d iabetes mellitus E11.42 confirmed 79276975 Problem Anxiety disorder F41.9 confirmed 197 887956 Problem Type 2 diabetes mellitus with hyperglycemia E11.65 confirmed 653765343 Problem Attention deficit hyperactivity disorder F90.9 confirmed 233616798 Problem Acute right-sided low back pain with right-sided sciatica M54.41 confirmed 908825276 Problem BMI 50.0-59.9, adult Z68.43 confirmed 423647720 Problem Major depressive disorder, recurrent, moderate F33.1 confirmed 35807038 Problem Pulmonary hypertension I27.20 confirmed 26743490 Problem Chronic gingivitis, plaque induced K05.10 co nfirmed 40542100 Problem Other chronic gastritis without hemorrhage K29.50 confirmed 3157122 Problem Essential hypertension I10 confirmed 69070290 Problem Other chronic pain G89.29 confirmed 8 1005088 Problem Lumbago with sciatica, left side M54.42 conf irmed 167926106 Problem Gastroesophageal reflux disease with esophagitis without hemorrhage K21.00 confirmed 011693212 Problem Autism disorder F84.0 confirmed 4088 04835 Problem Mixed hyperlipidemia E78.2 confirmed 581949404 ALLERGIES Allergen (clinical drug ingredient) Drug/Non Drug Allergy do cumented on EMR Reaction Allergy Type Onset Date Status albuterol Albuterol Unknown Drug Allergy Active sertraline Zoloft([facility] Code:[address]-18) hives adverse reaction Drug Allergy Active semaglutide Ozempic (0.25 or 0.5 MG/DOSE)([facility] Code:06500-701 10-02) Unknown Drug Allergy Active clindamycin Clindamycin HCl([facility] Code:[address]-15) itching Drug A llergy Active BuSpar local swelling Drug Allergy Active Wellbutrin "out of it" Drug Allergy Active ENCOUNTERS from 1978 to 2023-01-14 Encounter Location Date Provider Diagnosis [facility] [address] [facility] [id number] [place] [address] January, MILY HAY Type 2 diabetes lucian itus with hyperglycemia E11.65 IMMUNIZATIONS Vaccine Route Administration Date Status tdap [...] by inhalation route as needed Jun, Active tiZANidine HCl 4 MG 1 tablet Orally TID PRN for 30 days Active Albuterol Sulfate HFA 108 (90 Base) MCG/ACT INHALE TWO (2) PUFFS BY MOUTH EVERY FOUR (4) HOURS NEEDED FOR SHORTNESS OF BREATH for 16 Active Xopenex 1.25 MG/3ML 3 ml Inhalation every 8 hrs for 14 days prn Sep, Active amLODIPine Besylate 5 MG TAKE ONE (1) TABLET BY MOUTH ONCE DAILY for 30 Active Mirtazapine 30 MG 1 tablet at bedtime Orally Once a day for 30 days Active Pen [place] 32G X 4 MM use with insulin pens for in jection subcutaneously 3 times a day for 30 days Feb, Active Mounjaro 2.5 MG/0.5ML INJECT 2.5MG SUBCUTANEOUSLY (UNDER THE SKIN) ONCE WEEKLY for 28 Active ProAir HFA as directed prn Not-Raymon louis Pantoprazole Sodium 40 MG TAKE ONE (1) TABLET BY MOUTH ONCE DAILY for 30 Active Lyrica 150 MG 1 capsule Orally three times a day for 2 8 days pt states four times a day Nov, Active Lisinopril 40 MG TAKE ONE (1) TABLET BY MOUTH ONCE DAILY for 90 Active Blood Glucose Monitor System w/Device as [...] day for 90 days January, Active Nystatin 693491 UNIT/GM 1 application Externally Twice a day for 10 days Oct, Active clonazePAM 1 MG 0.5-1 tablet Orally daily as needed for anxiety for 28 days prn Oct, Active Biotin 10 MG TAKE ONE (1) CAPSULE BY MOUTH ONCE DAILY for 30 Active Ambien 10 MG 0.5-1 tab Orally at night as needed for sleep for 28 day s PRN Active Synjardy XR 12.5-1000 MG 2 tabs with breakfast Orally Once a day for 90 days (replaces Invokamet as this was denied by insurance) Oct, Active Mounjaro 5 MG/0.5ML INJECT 5MG SUBCUTANEOUSLY (U NDER THE SKIN) ONCE EVERY WEEK for 28 .5 weekly Not-Taking Dicyclomine HCl 20 MG 1 tablet Orally [...] Information RESULTS No Results REASON FOR VISIT insulin titration MEDICAL (GENERAL) HISTORY Type Description Date Medical [...] Surgical History colonoscopy 02/2021 Hospitalization History [facility] for diabetes 09/2011 Hospitalization History [facility] diabetic issues 09/2015 Hospitalization History [facility] Pneumonia 01/2016 Hospitalization History [facility] left upper thigh[facility] 04/2017 Hospitalization History [facility]-inpatient psych 4 day stay 201 4 Hospitalization History ED [place], unsure of blood sugar level 11/20/2017 Hospitalization History ER visit for ketosis 08/07 Hospitalization History [facility] ER, seen for Dehydration 10/2018 Hospitalization History Fell at home 04/2019 Hospitalization History chest pain, jaw pain, SOA, h eart tests, x2 day, [facility] 11/2020 Hospitalization History DKA 10/01/21 Hospitalization History DKA covid 19 about 5 days 05/2022 Goals Section No Information Health Concerns No Information MEDICAL EQUIPMENT No Information MENTAL STATUS No Information FUNCTIONAL STATUS No Information ASSESSMENTS Encounter Date Diagnosis Assessment Notes Treatment Notes Treatm ent Clinical Notes January, Type 2 diabetes mellitus with hyperglycemia (ICD -10 - E11.65) Patient continues to c/o fluctuating glucose levels. Today FBS was 164, Ate a potpie and took 36 U Humalog U200, his glucose went up to 206. Mid day he drank a glass of mild, one slicke of cheese and a slice of bread- forgot to take short acting insulin, glucose went up to 253 after lunch and at time of call is back down to 185. Patient reports this is a typical day. He is concerned about glucose >200 and knows he needs to work on healthy choice foods. He would like to learn to carb count but declines referral to dietitian. Patient is encouranged to do google searches on his phone to assist with carb counting his food for practice. He is encouraged to exercise or ambulate as tolerated to help with glucose highs. Pt has a treadmill he can walk on. He is asking if he can increase his short acting by 10-15 units per dose. Advised patient to increase Humalog to 39 Units with meals, discussed safe practices with insulin titration. Confirmed he has glucagen ekit in his home as well as carb snacks for lows. He repeated correct dose back on Humalog and confirmed his Tresiba is U 200 takes 170 U once daily in divided doses. No change to Tresiba at this time. He will monitor glucose and call back in 4-7 days if glucose levels continue to flucutuate >200 for further medication adjustments. PLAN OF TREATMENT Medication Medication Name Sig Start Date Stop Date Synjardy XR 12.5-1000 MG 2 tabs with breakfast Orally Once a day for 90 days Oct, Treatment Notes Assessment Notes Clinical Notes Type 2 diabetes mellitus with hyperglycemia Patient co ntinues to c/o fluctuating glucose levels. Today FBS was 164, Ate a potpie and took 36 U Humalog U200, his glucose went up to 206. Mid day he drank a glass of mild, one slicke of cheese and a slice of bread- forgot to take short acting insulin, glucose went up to 253 after lunch and at time of call is back down to 185. Patient reports this is a typical day. He is concerned about glucose >200 and knows he needs to work on healthy choice foods. He would like to learn to carb count but declines referral to dietitian. Patient is encouranged to do google searches on his phone to assist with carb counting his food for practice. He is encouraged to exercise or ambulate as tolerated to help with glucose highs. Pt has a treadmill he can walk on. He is asking if he can increase his short acting by 10-15 units per dose. Advised patient to increase Humalog to 39 Units with meals, discussed safe practices with insulin titration. Confirmed he has glucagen ekit in his home as well as carb snacks for lows. He repeated correct dose back on Humalog and confirmed his Tresiba is U 200 takes 170 U once daily in divided doses. No change to Tresiba at this time. He will monitor glucose and call back in 4-7 days if glucose levels continue to flucutuate >200 for further medication adjustments. Next Appt Details Provider Name:ZACHARY LEVIN, 2023-01-19 0 2:00:00 PM, [address] [facility], [id number], [place], [address], Provider Name:JENNIFER PRAKASH, 2023-01-28 01:00:00 PM, [address] [facility], [id number], [place], [address], Provider Name:ESTER NAGY, 09:00:00 AM, [address] [facility], [id number], [place], [address], Provider Name:ZACHARY LEVIN, 2023-02-22 0 2:40:00 PM, [address] [facility], [id number], [place], [address], Provider Name:ZACHARY LEVIN, 2023-04-20 0 3:20:00 PM, [address] [facility], [id number], [place], [address], Insurance Providers Payer Name Payer Address Payer Phone Insured Name Patient Relati onship to Insured Coverage Start Date Coverage End Date Subscriber Number Group Nu mber [facility] [address] [facility] [address] Frankie Salas Self - patient is the insured [id number] [facility] Dual Medicare Complete HMO [address] [facility] [address] Frankie Salas Self - patient is the insured 2019 [id number] [employer] MED[employer] Part A FI [address] [facility] [address] Frankie Salas Self - patient is the insured 2014 [id number] [facility] [address] [facility] [address] Frankie Salas Self - patient is the insured [id number] [facility] 19 [address] [facility] [address] Frankie Salas Self - patient is the insured [id number] [facility] 19 [address] [facility] [address] Frankie Salas Self - patient is the insured 2022 [id number] [employer] 19 [facility] [address] [facility] [address] Frankie Salas Self - patient is the insured [id number] [facility] 19 [address] [facility] [address] Frankie Salas Self - patient is the insured [id number] MEDICATIONS ADMINISTERED Medication Instructions Date of Administration [...]
--- OUTSIDE RECORDS SUMMARY | 2023-03-02 17:54 | XMS REPORT ---
Author Author [facility] Address Unknown Phone Unavailable Care Team Providers Care Community Relations Specialist Name Role Phone ESSIE JOHNSON Unavailable PROBLEMS Type Condition ICD9-CM Code [id number] Code Onset Dates Condition S tatus W/U Status Risk SNOMED Code Notes Problem Seasonal allergies J30.2 confirmed 4 77946250 Problem Other chronic pain G89.29 confirmed 8 4395694 Problem Hypogonadism in male E29.1 confirmed 74433369 Problem Uncontrolled type 2 diabetes mellitus with hyperglycemia E11.65 confirmed 460306273 Problem Morbid obesity due to excess calories E66.01 confirmed 758099706 Problem Major depressive disorder F32.9 confirmed 248807860 Problem Anxiety F41.9 confirmed 73674744 Problem Gastro-esophageal reflux disease with esophagiti s, without bleeding K21.00 confirmed 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 conf irmed 093677585 Problem BMI 45.0-49.9, adult Z68.42 confirmed 880882025 Problem Chronic fatigue R53.82 confirmed 5270 2003 Problem Type 2 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 confirmed 35107261 Problem Mild episode of recurrent major depressive disorder F33.0 confirmed 436021422 Problem Hyperlipidemia, mixed E78.2 confirmed 806801722 Problem Major depressive disorder with current active episode F33.9 confirmed 50991336 Problem Primary insomnia F51.01 confirmed 397 2004 Problem GERD with esophagitis K21.0 confirmed 373659729 Problem Gastroparesis K31.84 confirmed 593970 006 Problem Type 2 diabetes mellitus with diabetic autonomic (poly)neuropathy E11.43 confirmed 310254585 Problem Diverticulitis K57.92 confirmed 01754 6006 Problem Neuropathy G62.9 confirmed 541333978 Problem KHADAR (obstructive sleep apnea) G47.33 confirm ed 03197451 Problem Diabetic mononeuropathy associated with type 2 d iabetes mellitus E11.41 confirmed 184164052 Problem Arthritis M19.90 confirmed 0262191 Problem Chronic sinusitis, unspecified J32.9 confir med 627945385 Problem Pure hypercholesterolemia E78.00 confirmed 564833334 Problem Allergic rhinitis, unspecified seasonality, unspecifie d trigger J30.9 confirmed 21458258 Problem Type 2 diabetes mellitus with other specified complication E11.69 confirmed 08295755324406 Problem Pure hyperglyceridemia E78.1 confirmed 255291422 Problem Insulin resistance E88.81 confirmed 7 64359431 Problem Type 2 diabetes mellitus with diabetic neuropathy, uns pecified E11.40 confirmed 9398860498152 Problem Muscle spasm of both lower legs M62.838 conf irmed 52341553 Problem Irritable bowel syndrome with diarrhea K58.0 confirmed 098857784 Problem High triglycerides E78.1 confirmed 3 14655598 Problem Esophageal erosions K22.10 confirmed 657253938 Problem Comprehensive diabetic foot examination, type 2 DM, encounter for E11.9 confirmed 19445388 Problem Non-seasonal allergic rhinitis due to other allergic marcellus er J30.89 confirmed 80388800 Problem Insomnia G47.00 confirmed 952915680 Problem Poor diet E63.9 confirmed 511690834 Problem Essential (primary) hypertension I10 conf irmed 32213527 Problem Generalized anxiety disorder F41.1 confirme d 80483327 Problem Diverticular disease K57.90 confirmed 665800685 Problem Autism spectrum F84.0 confirmed 3591 9005 Problem Type 2 diabetes mellitus with ketoacidosis without coma E11.10 confirmed 500196064 Problem Diabetic polyneuropathy associated with type 2 d iabetes mellitus E11.42 confirmed 57620907 Problem Anxiety disorder F41.9 confirmed 197 123182 Problem Type 2 diabetes mellitus with hyperglycemia E11.65 confirmed 272565265 Problem Attention deficit hyperactivity disorder F90.9 confirmed 047801154 Problem Acute right-sided low back pain with right-sided sciatica M54.41 confirmed 255246726 Problem BMI 50.0-59.9, adult Z68.43 confirmed 261161289 Problem Major depressive disorder, recurrent, moderate F33.1 confirmed 28995343 Problem Pulmonary hypertension I27.20 confirmed 70754726 Problem Chronic gingivitis, plaque induced K05.10 co nfirmed 33685557 Problem Other chronic gastritis without hemorrhage K29.50 confirmed 2683074 Problem Essential hypertension I10 confirmed 89880838 Problem Other chronic pain G89.29 confirmed 8 5582080 Problem Lumbago with sciatica, left side M54.42 conf irmed 863255550 Problem Gastroesophageal reflux disease with esophagitis without hemorrhage K21.00 confirmed 280252403 Problem Autism disorder F84.0 confirmed 4088 31936 Problem Mixed hyperlipidemia E78.2 confirmed 862829032 ALLERGIES Allergen (clinical drug ingredient) Drug/Non Drug Allergy do cumented on EMR Reaction Allergy Type Onset Date Status albuterol Albuterol Unknown Drug Allergy Active sertraline Zoloft([facility] Code:[address]-68) hives adverse reaction Drug Allergy Active semaglutide Ozempic (0.25 or 0.5 MG/DOSE)([facility] Code:06373-145 10-02) Unknown Drug Allergy Active clindamycin Clindamycin HCl([facility] Code:[address]-27) itching Drug A llergy Active BuSpar local swelling Drug Allergy Active Wellbutrin "out of it" Drug Allergy Active ENCOUNTERS from 1978 to 2023-02-15 Encounter Location Date Provider Diagnosis [facility] [address] [id number] [place] [address] Feb, ESSIE JOHNSON IMMUNIZATIONS Vaccine Route Administration Date Status tdap [...] prn for 30 days Aug, Active Pen [place] 32G X 4 MM use with insulin pens for in jection subcutaneously 3 times a day for 30 days Feb, Active tiZANidine HCl 4 MG 1 tablet Orally TID PRN for 30 days Active Gvoke HypoPen 2-Pack 1 MG/0.2ML as directed [facility] severe hypoglycemia PRN low bs Jun, Active Nebulizer System All-In-One - as directed by inhalation route as needed Jun, Active HumuLIN R U-500 KwikPen 500 UNIT/ML 200 Units SC AC 5 days 30 units before meals Subcutaneous three times daily for 30 days 200 units per meal 3 meals a day Active Nystatin 011176 UNIT/GM 1 application Externally Twice a day [...] a day for 90 days January, Active Mounjaro 5 MG/0.5ML INJECT 5MG SUBCUTANEOUSLY (U NDER THE SKIN) ONCE EVERY WEEK for 28 .5 weekly Not-Taking ProAir HFA as directed prn Not-Takin g [...] FOR SHORTNESS OF BREATH for 16 Active Dicyclomine HCl 20 MG 1 tablet Orally four times a day as needed for 30 days Dec, Active Ezetimibe 10 MG 1 tablet Orally [...] BY MOUTH ONCE DAILY for 90 Active Lyrica 150 MG 1 capsule Orally three times a day for 2 8 days May fill on 02/16/2023 January, Active Aspirin Low Dose 81 MG TAKE [...] Information RESULTS No Results REASON FOR VISIT Application MEDICAL (GENERAL) HISTORY Type Description Date Medical [...] Surgical History colonoscopy 02/2021 Hospitalization History [facility] for diabetes 09/2011 Hospitalization History [facility] diabetic issues 09/2015 Hospitalization History [facility]ML Pneumonia 01/2016 Hospitalization History [facility]uitis [facility] the left upper thigh-[facility] 04/2017 Hospitalization History [facility]-inpatient psych 4 day stay 201 4 Hospitalization History [facility]- [facility], unsure of blood sugar level 11/20/2017 Hospitalization History ER visit for ketosis 08/07 Hospitalization History [facility] ER, seen for Dehydration 10/2018 Hospitalization History Fell at home 04/2019 Hospitalization History chest pain, jaw pain, SOA, h eart tests, x2 day, [facility] 11/2020 Hospitalization History DKA 10/01/21 Hospitalization History DKA covid 19 about 5 days 05/2022 Goals Section No Information Health Concerns No Information MEDICAL EQUIPMENT No Information MENTAL STATUS No Information FUNCTIONAL STATUS No Information ASSESSMENTS No Information PLAN OF TREATMENT Medication Medication Name Sig Start Date Stop Date clonazePAM 1 MG 0.5-1 tablet Orally daily as needed for anxiety for 28 days Lyrica 150 MG 1 capsule Orally three times a day for 28 days 0 January, Mirtazapine 30 MG 1 tablet at bedtime Orally Once a day for 30 d ays Next Appt Details Provider Name:ZACHARY LEVIN, 2023-02-16 0 2:00:00 PM, [address] [facility] [id number], [place], [address], Provider Name:ESTER NAGY, 09:00:00 AM, [address] [facility] [id number], [place], [address], Provider Name:ZACHARY LEVIN, 2023-02-22 0 2:40:00 PM, [address] [facility] [id number], [place], [address], Provider Name:ZACHARY LEVIN, 2023-04-20 0 3:20:00 PM, [address] [facility] [id number], [place], [address], Provider Name:JENNIFER RANDALL, 2023-04-29 02:20:00 PM, [address] [facility] [id number], [place], [address], Insurance Providers Payer Name Payer Address Payer Phone Insured Name Patient Relati onship to Insured Coverage Start Date Coverage End Date Subscriber Number Group Nu mber [facility] Dual Medicare Complete HMO [address] [facility] [address] Frankie Salas Self - patient is the insured 2019 [id number] [facility] [address] [facility] [facility] [address] Frankie Salas Self - patient is the insured [id number] [facility] [address] [facility] [address] [phone] Frankie Salas Self - patient is the insured [id number] [facility] 19 [address] [facility] [address] Frankie Salas Self - patient is the insured 2022 [id number] [facility] 19 [address] [facility] [address] Frankie Salas Self - patient is the insured [id number] [facility] 19 [address] [facility] [address] Frankie Salas Self - patient is the insured [id number] [facility] [address] [facility] [address] Frankie Salas Self - patient is the insured [id number] NGS MEDICARE Part A [address] [place] [address] Frankie Salas Self - patient is the insured 2014 [id number] MEDICATIONS ADMINISTERED Medication Instructions Date of Administration [...]
--- OUTSIDE RECORDS SUMMARY | 2023-03-02 17:54 | XMS REPORT ---
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 Name Role Phone KRISSY HALL Unavailable PROBLEMS Type Condition ICD9-CM Code LUT82-FA Code Onset Dates Condition S tatus W/U Status Risk SNOMED Code Notes Problem Hypogonadism in male E29.1 confirmed 03071345 Problem Morbid obesity due to excess calories E66.01 confirmed 967915567 Problem Other chronic pain G89.29 confirmed 8 1759218 Problem Neuropathy G62.9 confirmed 499383493 Problem Uncontrolled type 2 diabetes mellitus with hyperglycemia E11.65 confirmed 017712020 Problem Attention deficit hyperactivity disorder F90.9 confirmed 608752495 Problem Chronic fatigue R53.82 confirmed 5270 2003 Problem Major depressive disorder F32.9 confirmed 969469913 Problem Anxiety F41.9 confirmed 26476296 Problem Mild episode of recurrent major depressive disorder F33.0 confirmed 173139370 Problem BMI 45.0-49.9, adult Z68.42 confirmed 509597645 Problem Seasonal allergies J30.2 confirmed 4 71114158 Problem Type 2 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 confirmed 02085329 Problem GERD with esophagitis K21.0 confirmed 349801504 Problem Hyperlipidemia, mixed E78.2 confirmed 836598351 Problem Type 2 diabetes mellitus with diabetic autonomic (poly)neuropathy E11.43 confirmed 405472510 Problem Primary insomnia F51.01 confirmed 397 2004 Problem Irritable bowel syndrome with diarrhea K58.0 confirmed 408563852 Problem Gastroparesis K31.84 confirmed 645846 006 Problem Diabetic mononeuropathy associated with type 2 d iabetes mellitus E11.41 confirmed 051555292 Problem Diverticulitis K57.92 confirmed 28007 6006 Problem Arthritis M19.90 confirmed 4184743 Problem KHADAR (obstructive sleep apnea) G47.33 confirm ed 01318608 Problem Major depressive disorder with current active episode F33.9 confirmed 88024082 Problem Allergic rhinitis, unspecified seasonality, unspecifie d trigger J30.9 confirmed 05157549 Problem Pure hyperglyceridemia E78.1 confirmed 856748749 Problem Pure hypercholesterolemia E78.00 confirmed 245773292 Problem Type 2 diabetes mellitus with diabetic neuropathy, uns pecified E11.40 confirmed 5737688057877 Problem Type 2 diabetes mellitus with other specified complication E11.69 confirmed 56461350720792 Problem Other chronic gastritis without hemorrhage K29.50 confirmed 0215205 Problem Insulin resistance E88.81 confirmed 7 94156370 Problem Esophageal erosions K22.10 confirmed 061535719 Problem Muscle spasm of both lower legs M62.838 conf irmed 66179727 Problem Chronic sinusitis, unspecified J32.9 confir med 842747507 Problem High triglycerides E78.1 confirmed 3 48792950 Problem Poor diet E63.9 confirmed 071208702 Problem Comprehensive diabetic foot examination, type 2 DM, encounter for E11.9 confirmed 28146692 Problem Diverticular disease K57.90 confirmed 337831255 Problem Insomnia G47.00 confirmed 424264724 Problem Anxiety disorder F41.9 confirmed 197 126646 Problem Type 2 diabetes mellitus with hyperglycemia E11.65 confirmed 182389436 Problem Essential (primary) hypertension I10 conf irmed 08668939 Problem Generalized anxiety disorder F41.1 confirme d 24894939 Problem Type 2 diabetes mellitus with ketoacidosis without coma E11.10 confirmed 794523996 Problem 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 conf irmed 973541558 Problem Gastro-esophageal reflux disease with esophagiti s, without bleeding K21.00 confirmed Problem Diabetic polyneuropathy associated with type 2 d iabetes mellitus E11.42 confirmed 64457762 Problem Acute right-sided low back pain with right-sided sciatica M54.41 confirmed 893223263 Problem BMI 50.0-59.9, adult Z68.43 confirmed 327716479 Problem Other chronic pain G89.29 confirmed 8 7190374 Problem GERD without esophagitis K21.9 confirmed 909136662 Problem Essential hypertension I10 confirmed 26341779 Problem Chronic gingivitis, plaque induced K05.10 co nfirmed 00150265 Problem Pulmonary hypertension I27.20 confirmed 84313126 Problem Non-seasonal allergic rhinitis due to other allergic marcellus er J30.89 confirmed 71410333 Problem Lumbago with sciatica, left side M54.42 conf irmed 745671678 Problem Mixed hyperlipidemia E78.2 confirmed 757319940 Problem Gastroesophageal reflux disease with esophagitis without hemorrhage K21.00 confirmed 826120681 Problem Autism disorder F84.0 confirmed 9050 22840 Problem Major depressive disorder, recurrent, moderate F33.1 confirmed 06578156 Problem Autism spectrum F84.0 confirmed 2037 8906 ALLERGIES Allergen (clinical drug ingredient) Drug/Non Drug Allergy do cumented on EMR Reaction Allergy Type Onset Date Status albuterol Albuterol Unknown Drug Allergy Active sertraline Zoloft([facility] Code:[address]-77) hives adverse reaction Drug Allergy Active semaglutide Ozempic (0.25 or 0.5 MG/DOSE)([facility] Code:17062-143 10-02) Unknown Drug Allergy Active clindamycin Clindamycin HCl([facility] Code:[address]-08) itching Drug A llergy Active BuSpar local swelling Drug Allergy Active Wellbutrin "out of it" Drug Allergy Active ENCOUNTERS from 1978 to 2023-02-26 Encounter Location Date Provider Diagnosis [facility] [address] [facility] [id number] [address] [place] [address] 10 Feb, 2021 KRISSY HALL IMMUNIZATIONS Vaccine Route Administration Date Status tdap [...] WEEK for 28 .5 weekly Not-Taking Pen Engelhard 32G X 4 MM use with insulin [...] TID PRN for 30 days Active Nystatin 943308 UNIT/GM 1 application Externally Twice a day [...] Information RESULTS No Results REASON FOR VISIT ear c/o, pt states he is still taking his abx and just wanted to make sure his e ars are doing okay, ears are not red, no bulging of eardrum is noted- Alejandro Carey RN MEDICAL (GENERAL) HISTORY Type Description Date Medical [...] Hospitalization History celluitis of the left upper thigh-[facility] 04/2017 Hospitalization History [facility]-inpatient psych 4 day stay 201 4 Hospitalization History ED [place]- [place], unsure of blood sugar level 11/20/2017 Hospitalization History ER visit for ketosis 08/07 Hospitalization History [facility] ER, seen for Dehydration 10/2018 Hospitalization History [place] [facility] 04/2019 Hospitalization History chest pain, jaw pain, SOA, h eart tests, x2 day, [facility] [place] 11/2020 Hospitalization History DKA 10/01/21 Hospitalization History [...] Provider Name:ZACHARY LEVIN, 2023-03-02 1 0:00:00 AM, [address] [facility], [id number], [place], [address], Provider Name:ZACHARY SANCHEZSON, 2023-03-09 1 0:00:00 AM, [address] [facility], [id number], [place], [address], Provider Name:ZACHARY LEVIN, 2023-03-16 1 0:00:00 AM, [address] [facility], [id number], [place], [address], Provider Name:ESTER NAGY, 10:30:00 AM, [facility] [address] [facility], [id number], [place], [address], Provider Name:ZACHARY LEVIN, 2023-04-20 0 3:20:00 PM, [facility] [address] [facility], [id number], [place], [address], Provider Name:JENNIFER RANDALL, 2023-04-29 02:20:00 PM, [address] [place] [address], [id number], [place], [address], Provider Name:ESTER NAGY, 10:30:00 AM, [address] [place] [address], [id number], [place], [address], Provider Name:ZACHARY LEVIN, 2023-06-25 1 2:40:00 AM, [facility] [address] [facility], [id number], [place], [address], Insurance Providers Payer Name Payer Address Payer Phone Insured Name Patient Relati onship to Insured Coverage Start Date Coverage End Date Subscriber Number Group Nu mber [facility] [address] [facility] [address] Frankie Salas Self - patient is the insured [id number] [employer] 19 [facility] [address] [employer] DENT[employer] [facility] [address] Frankie Salas Self - patient is the insured [id number] [facility] Dual Medicare Complete HMO [address] [facility] [phone] Frankie Salas Self - patient is the insured 2019 [id number] [facility] 19 [address] [facility] [address] Frankie Salas Self - patient is the insured [id number] [facility] [address] [facility] [phone] Frankie Salas Self - patient is the insured [id number] [facility] MEDICARE Part A [address] [facility] [address] Frankie Salas Self - patient is the insured [id number] [facility] 19 [address] [facility] [address] Frankie Salas Self - patient is the insured [id number] [facility] 19 [address] [facility] [address] Frankie Salas Self - patient is the insured [id number] MEDICATIONS ADMINISTERED Medication Instructions Date of Administration Dosage DEPO-Medrol Nov, 1 mL KENALOG 40 MG/ML (PER 10 MG) Apr, 80 mg TESTOSTERONE (PT'S OWN) Dec, 0.5 mL DEXAMETHASONE 4MG/ML (PER 1 ML) Jun, 4 mg TESTOSTERONE (PT'S OWN) May, 0.5 mL TESTOSTERONE (PT'S OWN) Mar, 100 mg DEPO MEDROL 40 MG/ML Jun, 40 mg TESTOSTERONE (PT'S OWN) Apr, 100 mg TESTOSTERONE (PT'S OWN) Nov, 0.5 mg TESTOSTERONE (PT'S OWN) Mar, 200 mg TESTOSTERONE (PT'S OWN) Oct, 100 mg Ketorolac Tromethamine Aug, 2 mL TORADOL 30 MG/2ML (KETOROLAC) May, 60 mg Ketorolac Tromethamine Dec, 60 mg Ketorolac Tromethamine Nov, 1 mL SOLUMEDROL (UP TO 125 MG) Feb, 62.5 m g KENALOG 40 MG/ML (PER 10 MG) Aug, 80 mg Dexamethasone Nov, 1 mL DEPO MEDROL 80 MG/ML Feb, 80 mg
--- OUTSIDE RECORDS SUMMARY | 2023-03-02 17:54 | XMS REPORT ---
Author Author [facility] Address Unknown Phone Unavailable Care Team Providers Care Face Man Name Role Phone ZACHARY LEVIN Unavailable PROBLEMS Type Condition ICD9-CM Code RFO22-KH Code Onset Dates Condition S tatus W/U Status Risk SNOMED Code Notes Problem Hypogonadism in male E29.1 confirmed 57869612 Problem Morbid obesity due to excess calories E66.01 confirmed 475300224 Problem Other chronic pain G89.29 confirmed 8 9012656 Problem Neuropathy G62.9 confirmed 159767751 Problem Uncontrolled type 2 diabetes mellitus with hyperglycemia E11.65 confirmed 191258295 Problem Attention deficit hyperactivity disorder F90.9 confirmed Problem Chronic fatigue R53.82 confirmed 5270 2003 Problem Major depressive disorder F32.9 confirmed 825926891 Problem Anxiety F41.9 confirmed 78518327 Problem Mild episode of recurrent major depressive disorder F33.0 confirmed 509173808 Problem BMI 45.0-49.9, adult Z68.42 confirmed Problem Seasonal allergies J30.2 confirmed 4 28220484 Problem Type 2 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 confirmed 90480978 Problem GERD with esophagitis K21.0 confirmed 883338276 Problem Hyperlipidemia, mixed E78.2 confirmed Problem Type 2 diabetes mellitus with diabetic autonomic (poly)neuropathy E11.43 confirmed 458524708 Problem Primary insomnia F51.01 confirmed 397 2004 Problem Irritable bowel syndrome with diarrhea K58.0 confirmed 184803534 Problem Gastroparesis K31.84 confirmed 389166 006 Problem Diabetic mononeuropathy associated with type 2 d iabetes mellitus E11.41 confirmed 778785044 Problem Diverticulitis K57.92 confirmed 11425 6006 Problem Arthritis M19.90 confirmed 2976795 Problem KHADAR (obstructive sleep apnea) G47.33 confirm ed Problem Major depressive disorder with current active episode F33.9 confirmed 23230617 Problem Allergic rhinitis, unspecified seasonality, unspecifie d trigger J30.9 confirmed 54110189 Problem Pure hyperglyceridemia E78.1 confirmed Problem Pure hypercholesterolemia E78.00 confirmed 376730398 Problem Type 2 diabetes mellitus with diabetic neuropathy, uns pecified E11.40 confirmed Problem Type 2 diabetes mellitus with other specified complication E11.69 confirmed 02034723352031 Problem Other chronic gastritis without hemorrhage K29.50 confirmed 0582411 Problem Insulin resistance E88.81 confirmed 7 54806415 Problem Esophageal erosions K22.10 confirmed 145398913 Problem Muscle spasm of both lower legs M62.838 conf irmed 88521546 Problem Chronic sinusitis, unspecified J32.9 confir med 353778854 Problem High triglycerides E78.1 confirmed 3 00245976 Problem Poor diet E63.9 confirmed 617115159 Problem Comprehensive diabetic foot examination, type 2 DM, encounter for E11.9 confirmed 46273699 Problem Diverticular disease K57.90 confirmed 273510286 Problem Insomnia G47.00 confirmed Problem Anxiety disorder F41.9 confirmed Problem Type 2 diabetes mellitus with hyperglycemia E11.65 confirmed 658920904 Problem Essential (primary) hypertension I10 conf irmed 14068556 Problem Generalized anxiety disorder F41.1 confirme d 71841458 Problem Type 2 diabetes mellitus with ketoacidosis without coma E11.10 confirmed 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 conf irmed 420124019 Problem Gastro-esophageal reflux disease with esophagiti s, without bleeding K21.00 confirmed Problem Diabetic polyneuropathy associated with type 2 d iabetes mellitus E11.42 confirmed 48846031 Problem Acute right-sided low back pain with right-sided sciatica M54.41 confirmed 180444057 Problem BMI 50.0-59.9, adult Z68.43 confirmed 698963413 Problem Other chronic pain G89.29 confirmed 8 7346427 Problem GERD without esophagitis K21.9 confirmed 504048803 Problem Essential hypertension I10 confirmed 78453720 Problem Chronic gingivitis, plaque induced K05.10 co nfirmed 53412587 Problem Pulmonary hypertension I27.20 confirmed Problem Non-seasonal allergic rhinitis due to other allergic marcellus er J30.89 confirmed 13620795 Problem Lumbago with sciatica, left side M54.42 conf irmed 695037616 Problem Mixed hyperlipidemia E78.2 confirmed 361162487 Problem Gastroesophageal reflux disease with esophagitis without hemorrhage K21.00 confirmed 421321316 Problem Autism disorder F84.0 confirmed Problem Major depressive disorder, recurrent, moderate F33.1 confirmed Problem Autism spectrum F84.0 confirmed 8981 9009 ALLERGIES Allergen (clinical drug ingredient) Drug/Non Drug Allergy do cumented on EMR Reaction Allergy Type Onset Date Status albuterol Albuterol Unknown Drug Allergy Active sertraline Zoloft([facility] Code:[address]-29) hives adverse reaction Drug Allergy Active semaglutide Ozempic (0.25 or 0.5 MG/DOSE)([facility] Code:03818-150 10-02) Unknown Drug Allergy Active clindamycin Clindamycin HCl([facility] Code:[address]-36) itching Drug A llergy Active BuSpar local swelling Drug Allergy Active Wellbutrin "out of it" Drug Allergy Active ENCOUNTERS from 1978 to 2023-02-23 Encounter Location Date Provider Diagnosis [facility] [address] [facility] [id number] [address] [place] [address] Feb, ZACHARY LEVIN IMMUNIZATIONS Vaccine Route Administration Date Status Influenza [...] WEEK for 28 .5 weekly Not-Taking Pen Colon 32G X 4 MM use with insulin [...] TID PRN for 30 days Active Nystatin 189606 UNIT/GM 1 application Externally Twice a day [...] Information RESULTS No Results REASON FOR VISIT med refill request MEDICAL (GENERAL) HISTORY Type Description Date Medical [...] History colonoscopy 02/2021 Hospitalization History [facility] for diabetes 09/2011 Hospitalization History [facility] diabetic issues 09/2015 Hospitalization History [facility] Pneumonia 01/2016 Hospitalization History [facility]is [facility] the left upper thigh-[facility] 04/2017 Hospitalization History [facility]-inpatient psych 4 day stay 201 4 Hospitalization History ED [place], unsure of blood sugar level 11/20/2017 Hospitalization History ER visit for ketosis 08/07 Hospitalization History [facility] ER, seen for Dehydration 10/2018 Hospitalization History [place] home 04/2019 Hospitalization History chest pain, jaw pain, SOA, h eart tests, x2 day, [facility] 11/2020 Hospitalization History DKA 10/01/21 Hospitalization History [...] days Next Appt Details Provider Name:ZACHARY LEVIN, 2023-02-25 1 1:00:00 AM, [address] [facility], [id number], [place], [address], Provider Name:ZACHARY LEVIN, 2023-03-02 1 0:00:00 AM, [address] [facility], [id number], [place], [address], Provider Name:ZACHARY LEVIN, 2023-03-09 1 0:00:00 AM, [address] [facility], [id number], [place], [address], Provider Name:ZACHARY LEVIN, 2023-03-16 1 0:00:00 AM, [address] [facility], [id number], [place], [address], Provider Name:ESTER NAGY, 10:30:00 AM, [address] [facility], [id number], [place], [address], Provider Name:ZACHARY LEVIN, 2023-04-20 0 3:20:00 PM, [address] [facility], [id number], [place], [address], Provider Name:JENNIFER RANDALL, 2023-04-29 02:20:00 PM, [address] [facility], [id number], [place], [address], Provider Name:ESTER NAGY, 10:30:00 AM, [address] [place] [address], [id number], [place], [address], Provider Name:ZACHARY LEVIN, 2023-06-25 1 2:40:00 AM, [facility] [address] [facility], [id number], [place], [address], Insurance Providers Payer Name Payer Address Payer Phone Insured Name Patient Relati onship to Insured Coverage Start Date Coverage End Date Subscriber Number Group Nu mber [employer] 19 [facility] [address] [employer] [facility] [address] Frankie Salas Self - patient is the insured [id number] [facility] Physical Health [address] [facility] [phone] Frankie Salas Self - patient is the insured [id number] [facility] 19 [address] [facility] [address] Frankie Salas Self - patient is the insured [id number] [facility] 19 [address] [facility] [address] Frankie Salas Self - patient is the insured 2022 [id number] [facility] Dual Medicare Complete HMO [address] [facility] [address] Frankie Salas Self - patient is the insured 2019 [id number] [facility] 19 [address] [facility] [address] Frankie Salas Self - patient is the insured [id number] [facility] MEDICARE Part A FI [address] [facility] [phone] Frankie Salas Self - patient is the insured [id number] [facility] Dental [address] [facility] [address] Frankie Salas Self - patient is the insured [id number] MEDICATIONS ADMINISTERED Medication Instructions Date of Administration Dosage KENALOG 40 MG/ML (PER 10 MG) Apr, 80 mg TESTOSTERONE (PT'S OWN) Oct, 100 mg Dexamethasone Nov, 1 mL Ketorolac Tromethamine Nov, 1 mL DEPO MEDROL 80 MG/ML Feb, 80 mg TESTOSTERONE (PT'S OWN) May, 0.5 mL SOLUMEDROL (UP TO 125 MG) Feb, 62.5 m g TORADOL 30 MG/2ML (KETOROLAC) May, 60 mg TESTOSTERONE (PT'S OWN) Mar, 100 mg TESTOSTERONE (PT'S OWN) Apr, 100 mg DEPO MEDROL 40 MG/ML Jun, 40 mg TESTOSTERONE (PT'S OWN) Dec, 0.5 mL TESTOSTERONE (PT'S OWN) Nov, 0.5 mg DEXAMETHASONE 4MG/ML (PER 1 ML) Jun, 4 mg TESTOSTERONE (PT'S OWN) Mar, 200 mg KENALOG 40 MG/ML (PER 10 MG) Aug, 80 mg Ketorolac Tromethamine Aug, 2 mL Ketorolac Tromethamine Dec, 60 mg DEPO-Medrol Nov, 1 mL
--- OUTSIDE RECORDS SUMMARY | 2023-03-02 17:54 | XMS REPORT ---
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 Name Role Phone ZACHARY LEVIN Unavailable PROBLEMS Type Condition ICD9-CM Code NHP95-[id number] Code Onset Dates Condition S tatus W/U Status Risk SNOMED Code Notes Problem Seasonal allergies J30.2 confirmed 4 81850319 Problem Other chronic pain G89.29 confirmed 8 2166742 Problem Hypogonadism in male E29.1 confirmed 57155478 Problem Uncontrolled type 2 diabetes mellitus with hyperglycemia E11.65 confirmed 973020146 Problem Morbid obesity due to excess calories E66.01 confirmed 155635732 Problem Major depressive disorder F32.9 confirmed 338021294 Problem Anxiety F41.9 confirmed 74362014 Problem Gastro-esophageal reflux disease with esophagiti s, without bleeding K21.00 confirmed 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.4 conf irmed 951128134 Problem BMI 45.0-49.9, adult Z68.42 confirmed 159154895 Problem Chronic fatigue R53.82 confirmed 5270 2003 Problem Type 2 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 confirmed 88438966 Problem Mild episode of recurrent major depressive disorder F33.0 confirmed 148481426 Problem Hyperlipidemia, mixed E78.2 confirmed 401686906 Problem Major depressive disorder with current active episode F33.9 confirmed 12894173 Problem Primary insomnia F51.01 confirmed 397 2004 Problem GERD with esophagitis K21.0 confirmed 040287923 Problem Gastroparesis K31.84 confirmed 880296 006 Problem Type 2 diabetes mellitus with diabetic autonomic (poly)neuropathy E11.43 confirmed 080430689 Problem Diverticulitis K57.92 confirmed 83285 6006 Problem Neuropathy G62.9 confirmed 514990427 Problem KHADAR (obstructive sleep apnea) G47.33 confirm ed 69704239 Problem Diabetic mononeuropathy associated with type 2 d iabetes mellitus E11.41 confirmed 173985032 Problem Arthritis M19.90 confirmed 5746576 Problem Chronic sinusitis, unspecified J32.9 confir med 813862003 Problem Pure hypercholesterolemia E78.00 confirmed 190879624 Problem Allergic rhinitis, unspecified seasonality, unspecifie d trigger J30.9 confirmed 44815154 Problem Type 2 diabetes mellitus with other specified complication E11.69 confirmed 34695475663074 Problem Pure hyperglyceridemia E78.1 confirmed 680322091 Problem Insulin resistance E88.81 confirmed 7 26066286 Problem Type 2 diabetes mellitus with diabetic neuropathy, uns pecified E11.40 confirmed 5124886247290 Problem Muscle spasm of both lower legs M62.838 conf irmed 18593347 Problem Irritable bowel syndrome with diarrhea K58.0 confirmed 958970981 Problem High triglycerides E78.1 confirmed 3 09079513 Problem Esophageal erosions K22.10 confirmed 820650643 Problem Comprehensive diabetic foot examination, type 2 DM, encounter for E11.9 confirmed 58274243 Problem Non-seasonal allergic rhinitis due to other allergic marcellus er J30.89 confirmed 26961390 Problem Insomnia G47.00 confirmed 333636784 Problem Poor diet E63.9 confirmed 334758392 Problem Essential (primary) hypertension I10 conf irmed 93623967 Problem Generalized anxiety disorder F41.1 confirme d 19854819 Problem Diverticular disease K57.90 confirmed 162703936 Problem Autism spectrum F84.0 confirmed 3591 9005 Problem Type 2 diabetes mellitus with ketoacidosis without coma E11.10 confirmed 418887035 Problem Diabetic polyneuropathy associated with type 2 d iabetes mellitus E11.42 confirmed 44130736 Problem Anxiety disorder F41.9 confirmed 197 902354 Problem Type 2 diabetes mellitus with hyperglycemia E11.65 confirmed 938970763 Problem Attention deficit hyperactivity disorder F90.9 confirmed 398490836 Problem Acute right-sided low back pain with right-sided sciatica M54.41 confirmed 215893124 Problem BMI 50.0-59.9, adult Z68.43 confirmed 372469582 Problem Major depressive disorder, recurrent, moderate F33.1 confirmed 68754549 Problem Pulmonary hypertension I27.20 confirmed 96523778 Problem Chronic gingivitis, plaque induced K05.10 co nfirmed 93933167 Problem Other chronic gastritis without hemorrhage K29.50 confirmed 6332978 Problem Essential hypertension I10 confirmed 36910297 Problem Other chronic pain G89.29 confirmed 8 5077173 Problem Lumbago with sciatica, left side M54.42 conf irmed 415026923 Problem Gastroesophageal reflux disease with esophagitis without hemorrhage K21.00 confirmed 789588370 Problem Autism disorder F84.0 confirmed 4088 30266 Problem Mixed hyperlipidemia E78.2 confirmed 476088459 ALLERGIES Allergen (clinical drug ingredient) Drug/Non Drug Allergy do cumented on EMR Reaction Allergy Type Onset Date Status albuterol Albuterol Unknown Drug Allergy Active sertraline Zoloft([facility] Code:[address]-68) hives adverse reaction Drug Allergy Active semaglutide Ozempic (0.25 or 0.5 MG/DOSE)([facility] Code:22901-987 10-02) Unknown Drug Allergy Active clindamycin Clindamycin HCl([facility] Code:[address]-97) itching Drug A llergy Active BuSpar local swelling Drug Allergy Active Wellbutrin "out of it" Drug Allergy Active ENCOUNTERS from 1978 to 2023-02-15 Encounter Location Date Provider Diagnosis [facility] [address] [facility] [id number] [place] [address] 18 Feb, 2021 ZACHARY LEVIN Hyperlipidemia, mixe d E78.2 ; Diabetic polyneuropathy associated with type 2 diabetes mellitus E11.42 ; Uncontrolled type 2 diabetes mellitus with hyperglycemia E11.65 and Hypogonadism in male E29.1 IMMUNIZATIONS Vaccine Route Administration Date Status Influenza [...] Score: 0 Interpretation: No problems reported DAST-10 (2021 Edition) Question Answer Notes 1. Have you [...] prn for 30 days Aug, Active Pen [place] 32G X 4 MM use with insulin pens for in jection subcutaneously 3 times a day for 30 days Feb, Active tiZANidine HCl 4 MG 1 tablet Orally TID PRN for 30 days Active Gvoke HypoPen 2-Pack 1 MG/0.2ML as directed Subcutaneo for severe hypoglycemia PRN low bs Jun, Active Nebulizer System All-In-One - as directed by inhalation route as needed Jun, Active HumuLIN R U-500 KwikPen 500 UNIT/ML 200 Units SC AC 5 days 30 units before meals Subcutaneous three times daily for 30 days 200 units per meal 3 meals a day Active Nystatin 249213 UNIT/GM 1 application Externally Twice a day [...] One Touch Ultra 2 Jun, Active PROCEDURES from 1978 to 2023-02-15 Procedure Date Ordered Date Performed Result Body Site ROUTINE VENIPUNCTURE 2021-03-07 2021-03-07 N/A RESULTS No Results REASON FOR VISIT Lab (walk-in) MEDICAL (GENERAL) HISTORY Type Description Date Medical [...] History colonoscopy 02/2021 Hospitalization History [facility] [place] for diabetes 09/2011 Hospitalization History [facility] diabetic issues 09/2015 Hospitalization History [facility] Pneumonia 01/2016 Hospitalization History celluitis of the left upper thigh-[facility] 04/2017 Hospitalization History [facility]-inpatient psych 4 day stay 201 4 Hospitalization History ED [place]- [place], unsure of blood sugar level 11/20/2017 Hospitalization History ER visit for ketosis 08/07 Hospitalization History [facility] ER, seen for Dehydration 10/2018 Hospitalization History [place] at home 04/2019 Hospitalization History chest pain, jaw pain, SOA, h eart tests, x2 day, [facility] [place] 11/2020 Hospitalization History DKA 10/01/21 Hospitalization History DKA covid 19 about 5 days 05/2022 Goals Section No Information Health Concerns No Information MEDICAL EQUIPMENT No Information MENTAL STATUS No Information FUNCTIONAL STATUS No Information ASSESSMENTS Encounter Date Diagnosis Assessment Notes Treatment Notes Treatm ent Clinical Notes Feb, Diabetic polyneuropathy asso ciated with type 2 diabetes mellitus (ICD-10 - E11.42) Feb, Hyperlipidemia, mixed (ICD-10 - E78.2) Feb, Uncontrolled type 2 diabetes mellitus with hyperglycemia (ICD-10 - E11.65) Feb, Hypogonadism in male (ICD-10 - E29.1) PLAN OF TREATMENT Medication Medication Name Sig [...] Provider Name:ZACHARY LEVIN, 2023-02-16 0 2:00:00 PM, [address] [place] [address], [id number], [place], [address], Provider Name:ESTER NAGY, 09:00:00 AM, [address] [place] [address], [id number], [place], [address], Provider Name:ZACHARY LEVIN, 2023-02-22 0 2:40:00 PM, [address] [place] [address], [id number], [place], [address], Provider Name:ZACHARY LEVIN, 2023-04-20 0 3:20:00 PM, [address] [place] [address], [id number], [place], [address], Provider Name:JENNIFER RANDALL, 2023-04-29 02:20:00 PM, [address] [place] [address], [id number], [place], [address], Insurance Providers Payer Name Payer Address Payer Phone Insured Name Patient Relati onship to Insured Coverage Start Date Coverage End Date Subscriber Number Group Nu mber [place] [id number] [address] [facility] [address] [phone] Frankie Salas Self - patient is the insured 2022 [id number] [facility] [address] [facility] [address] Frankie Salas Self - patient is the insured [id number] NGS MEDICARE Part A [address] [facility] [address] Frankie Salas Self - patient is the insured 2014 [id number] [employer] 19 [facility] [address] [facility] [address] Frankie Salas Self - patient is the insured [id number] [facility] 19 [address] [facility] [address] Frankie Salas Self - patient is the insured [id number] [facility] [address] [facility] [address] Frankie Salas Self - patient is the insured [id number] [facility] 19 [address] [facility] [address] Frankie Salas Self - patient is the insured [id number] [facility] Dual Medicare Complete HMO [address] [facility] [phone] Frankie Salas Self - patient is the insured 09/20/2019 [id number] MEDICATIONS ADMINISTERED Medication Instructions Date of Administration Dosage TESTOSTERONE (PT'S OWN) May, 0.5 mL TESTOSTERONE (PT'S OWN) Dec, 0.5 mL Dexamethasone Nov, 1 mL Ketorolac Tromethamine Dec, 60 mg SOLUMEDROL (UP TO 125 MG) Feb, 62.5 m g DEPO MEDROL 80 MG/ML Feb, 80 mg TESTOSTERONE (PT'S OWN) Apr, 100 mg DEPO MEDROL 40 MG/ML Jun, 40 mg KENALOG 40 MG/ML (PER 10 MG) Aug, 80 mg TESTOSTERONE (PT'S OWN) Mar, 100 mg KENALOG 40 MG/ML (PER 10 MG) Apr, 80 mg TORADOL 30 MG/2ML (KETOROLAC) May, 60 mg TESTOSTERONE (PT'S OWN) Nov, 0.5 mg DEXAMETHASONE 4MG/ML (PER 1 ML) Jun, 4 mg Ketorolac Tromethamine Aug, 2 mL TESTOSTERONE (PT'S OWN) Oct, 100 mg TESTOSTERONE (PT'S OWN) Mar, 200 mg Ketorolac Tromethamine Nov, 1 mL DEPO-Medrol Nov, 1 mL
--- OUTSIDE RECORDS SUMMARY | 2023-03-02 17:54 | XMS REPORT ---
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 Name Role Phone ZACHARY LEVIN Unavailable PROBLEMS Type Condition ICD9-CM Code [id number] Code Onset Dates Condition S tatus W/U Status Risk SNOMED Code Notes Problem Seasonal allergies J30.2 confirmed 4 88681088 Problem Other chronic pain G89.29 confirmed 8 2689540 Problem Hypogonadism in male E29.1 confirmed 25216399 Problem Uncontrolled type 2 diabetes mellitus with hyperglycemia E11.65 confirmed 743460218 Problem Morbid obesity due to excess calories E66.01 confirmed 103654624 Problem Major depressive disorder F32.9 confirmed 274914744 Problem Anxiety F41.9 confirmed 59062045 Problem Gastro-esophageal reflux disease with esophagiti s, without bleeding K21.00 confirmed 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.4 conf irmed 402242017 Problem BMI 45.0-49.9, adult Z68.42 confirmed 313522802 Problem Chronic fatigue R53.82 confirmed 5270 2003 Problem Type 2 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 confirmed 85637698 Problem Mild episode of recurrent major depressive disorder F33.0 confirmed 126529575 Problem Hyperlipidemia, mixed E78.2 confirmed 660265005 Problem Major depressive disorder with current active episode F33.9 confirmed 26972599 Problem Primary insomnia F51.01 confirmed 397 2004 Problem GERD with esophagitis K21.0 confirmed 146076481 Problem Gastroparesis K31.84 confirmed 908872 006 Problem Type 2 diabetes mellitus with diabetic autonomic (poly)neuropathy E11.43 confirmed 442443717 Problem Diverticulitis K57.92 confirmed 46657 6006 Problem Neuropathy G62.9 confirmed 897409782 Problem KHADAR (obstructive sleep apnea) G47.33 confirm ed 89375724 Problem Diabetic mononeuropathy associated with type 2 d iabetes mellitus E11.41 confirmed 873328273 Problem Arthritis M19.90 confirmed 1894672 Problem Chronic sinusitis, unspecified J32.9 confir med 501802941 Problem Pure hypercholesterolemia E78.00 confirmed 867678537 Problem Allergic rhinitis, unspecified seasonality, unspecifie d trigger J30.9 confirmed 64860456 Problem Type 2 diabetes mellitus with other specified complication E11.69 confirmed 86959727006004 Problem Pure hyperglyceridemia E78.1 confirmed 381485973 Problem Insulin resistance E88.81 confirmed 7 71083372 Problem Type 2 diabetes mellitus with diabetic neuropathy, uns pecified E11.40 confirmed 8557869778764 Problem Muscle spasm of both lower legs M62.838 conf irmed 86368082 Problem Irritable bowel syndrome with diarrhea K58.0 confirmed 809277324 Problem High triglycerides E78.1 confirmed 3 01437602 Problem Esophageal erosions K22.10 confirmed 845958411 Problem Comprehensive diabetic foot examination, type 2 DM, encounter for E11.9 confirmed 42867483 Problem Non-seasonal allergic rhinitis due to other allergic marcellus er J30.89 confirmed 24954177 Problem Insomnia G47.00 confirmed 669168743 Problem Poor diet E63.9 confirmed 269211370 Problem Essential (primary) hypertension I10 conf irmed 15704490 Problem Generalized anxiety disorder F41.1 confirme d 17670295 Problem Diverticular disease K57.90 confirmed 850703279 Problem Autism spectrum F84.0 confirmed 3591 9005 Problem Type 2 diabetes mellitus with ketoacidosis without coma E11.10 confirmed 724626394 Problem Diabetic polyneuropathy associated with type 2 d iabetes mellitus E11.42 confirmed 01476365 Problem Anxiety disorder F41.9 confirmed 197 502580 Problem Type 2 diabetes mellitus with hyperglycemia E11.65 confirmed 839275210 Problem Attention deficit hyperactivity disorder F90.9 confirmed 621626227 Problem Acute right-sided low back pain with right-sided sciatica M54.41 confirmed 559296281 Problem BMI 50.0-59.9, adult Z68.43 confirmed 076672579 Problem Major depressive disorder, recurrent, moderate F33.1 confirmed 80893166 Problem Pulmonary hypertension I27.20 confirmed 77034850 Problem Chronic gingivitis, plaque induced K05.10 co nfirmed 55508252 Problem Other chronic gastritis without hemorrhage K29.50 confirmed 2219260 Problem Essential hypertension I10 confirmed 74011975 Problem Other chronic pain G89.29 confirmed 8 1380543 Problem Lumbago with sciatica, left side M54.42 conf irmed 113645558 Problem Gastroesophageal reflux disease with esophagitis without hemorrhage K21.00 confirmed 487247360 Problem Autism disorder F84.0 confirmed 4088 68144 Problem Mixed hyperlipidemia E78.2 confirmed 898752243 ALLERGIES Allergen (clinical drug ingredient) Drug/Non Drug Allergy do cumented on EMR Reaction Allergy Type Onset Date Status albuterol Albuterol Unknown Drug Allergy Active sertraline Zoloft([facility] Code:[address]-69) hives adverse reaction Drug Allergy Active semaglutide Ozempic (0.25 or 0.5 MG/DOSE)([facility] Code:41685-445 10-02) Unknown Drug Allergy Active clindamycin Clindamycin HCl([facility] Code:[address]-36) itching Drug A llergy Active BuSpar local swelling Drug Allergy Active Wellbutrin "out of it" Drug Allergy Active ENCOUNTERS from 1978 to 2023-02-03 Encounter Location Date Provider Diagnosis [facility] [address] [facility] [id number] [place], [place] [phone] Feb, ZACHARY LEVIN IMMUNIZATIONS Vaccine Route Administration [...] prn for 30 days Aug, Active Pen [place] 32G X 4 MM use with insulin pens for in jection subcutaneously 3 times a day for 30 days Feb, Active tiZANidine HCl 4 MG 1 tablet Orally TID PRN for 30 days Active Gvoke HypoPen 2-Pack 1 MG/0.2ML as directed [facility] PRN low bs Jun, Active Nebulizer System All-In-One - as directed by inhalation route as needed Jun, Active HumuLIN R U-500 KwikPen 500 UNIT/ML 200 Units SC AC 5 days 30 units before meals Subcutaneous three times daily for 30 days 200 units per meal 3 meals a day Active Nystatin 476297 UNIT/GM 1 application Externally Twice a day [...] 90 Active ProAir HFA as directed prn Not-Takin g Aspirin Low Dose 81 MG TAKE ONE [...] Information RESULTS No Results REASON FOR VISIT Refill MEDICAL (GENERAL) HISTORY Type Description Date Medical [...] Hospitalization History celluitis of the left upper thigh-[facility] 04/2017 Hospitalization History [facility]-inpatient psych 4 day stay 201 4 Hospitalization History ED [place]- [facility], unsure of blood sugar level 11/20/2017 Hospitalization History ER visit for ketosis 08/07 Hospitalization History [facility] ER, seen for Dehydration 10/2018 Hospitalization History Fell at home 04/2019 Hospitalization History chest pain, jaw pain, SOA, h eart tests, x2 day, [facility] [place] 11/2020 Hospitalization History DKA 10/01/21 Hospitalization History [...] as needed for anxiety for 28 days Next Appt Details Provider Name:ZACHARY LEVIN, 2023-02-09 0 2:00:00 PM, [address] [facility], [id number], [place], [address], Provider Name:ZACHARY LEVIN, 2023-02-16 0 2:00:00 PM, [address] [facility], [id number], [place], [address], Provider Name:ESTER NAGY, 09:00:00 AM, [address] [facility], [id number], [place], [address], Provider Name:ZACHARY LEVIN, 2023-02-22 0 2:40:00 PM, [address] [facility], [id number], [place], [address], Provider Name:ZAHCARY LEVIN, 2023-04-20 0 3:20:00 PM, [address] [facility], [id number], [place], [address], Provider Name:JENNIFER PRAKASH, 2023-04-29 02:20:00 PM, [address] [facility], [id number], [place], [address], Insurance Providers Payer Name Payer Address Payer Phone Insured Name Patient Relati onship to Insured Coverage Start Date Coverage End Date Subscriber Number Group Nu mber NGS MEDICARE Part A [address] [facility] [phone] Frankie Salas Self - patient is the insured [id number] [facility] [address] [facility] [address] [phone] Frankie Salas Self - patient is the insured [id number] [facility] Dual Medicare Complete HMO [address] [facility] [phone] Frankie Salas Self - patient is the insured 2019 [id number] NON [facility] 19 [address] [facility] [address] Frankie Salas Self - patient is the insured [id number] [employer] 19 [facility] [address] [facility] [address] Frankie Salas Self - patient is the insured [id number] [facility] [address] [facility] [address] Frankie Salas Self - patient is the insured [id number] [facility] 19 [address] [facility] [address] Frankie Salas Self - patient is the insured [id number] [facility] 19 [address] [place] [address] Frankie Salas Self - patient is the insured [id number] MEDICATIONS ADMINISTERED Medication Instructions Date of Administration Dosage SOLUMEDROL (UP TO 125 MG) Feb, 62.5 m g TESTOSTERONE (PT'S OWN) Apr, 100 mg TESTOSTERONE (PT'S OWN) Oct, 100 mg TESTOSTERONE (PT'S OWN) Dec, 0.5 mL TESTOSTERONE (PT'S OWN) Mar, 100 mg DEPO MEDROL 80 MG/ML Feb, 80 mg DEPO-Medrol Nov, 1 mL KENALOG 40 MG/ML (PER 10 MG) Apr, 80 mg TESTOSTERONE (PT'S OWN) Mar, 200 mg TORADOL 30 MG/2ML (KETOROLAC) May, 60 mg TESTOSTERONE (PT'S OWN) Nov, 0.5 mg Ketorolac Tromethamine Dec, 60 mg Ketorolac Tromethamine Aug, 2 mL Dexamethasone Nov, 1 mL Ketorolac Tromethamine Nov, 1 mL KENALOG 40 MG/ML (PER 10 MG) Aug, 80 mg TESTOSTERONE (PT'S OWN) May, 0.5 mL DEXAMETHASONE 4MG/ML (PER 1 ML) Jun, 4 mg DEPO MEDROL 40 MG/ML Jun, 40 mg
--- OUTSIDE RECORDS SUMMARY | 2023-03-02 17:54 | XMS REPORT ---
Author Author [facility] Address Unknown Phone Unavailable Care Team Providers Care Nutrition Director Name Role Phone MILY HAY Unavailable PROBLEMS Type Condition ICD9-CM Code [id number] Code Onset Dates Condition S tatus W/U Status Risk SNOMED Code Notes Problem Seasonal allergies J30.2 confirmed 4 84292668 Problem Other chronic pain G89.29 confirmed 8 5366741 Problem Hypogonadism in male E29.1 confirmed 17736974 Problem Uncontrolled type 2 diabetes mellitus with hyperglycemia E11.65 confirmed 377383968 Problem Morbid obesity due to excess calories E66.01 confirmed 092304387 Problem Major depressive disorder F32.9 confirmed 531682154 Problem Anxiety F41.9 confirmed 71985470 Problem Gastro-esophageal reflux disease with esophagiti s, without bleeding K21.00 confirmed 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 conf irmed 650872461 Problem BMI 45.0-49.9, adult Z68.42 confirmed 333833892 Problem Chronic fatigue R53.82 confirmed 5270 2003 Problem Type 2 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 confirmed 76832389 Problem Mild episode of recurrent major depressive disorder F33.0 confirmed 383261450 Problem Hyperlipidemia, mixed E78.2 confirmed 610145875 Problem Major depressive disorder with current active episode F33.9 confirmed 58791110 Problem Primary insomnia F51.01 confirmed 397 2004 Problem GERD with esophagitis K21.0 confirmed 247631292 Problem Gastroparesis K31.84 confirmed 518743 006 Problem Type 2 diabetes mellitus with diabetic autonomic (poly)neuropathy E11.43 confirmed 059535037 Problem Diverticulitis K57.92 confirmed 09310 6006 Problem Neuropathy G62.9 confirmed 446290717 Problem KHAADR (obstructive sleep apnea) G47.33 confirm ed 69015899 Problem Diabetic mononeuropathy associated with type 2 d iabetes mellitus E11.41 confirmed 085708154 Problem Arthritis M19.90 confirmed 3351051 Problem Chronic sinusitis, unspecified J32.9 confir med 394910316 Problem Pure hypercholesterolemia E78.00 confirmed 482122360 Problem Allergic rhinitis, unspecified seasonality, unspecifie d trigger J30.9 confirmed 25810136 Problem Type 2 diabetes mellitus with other specified complication E11.69 confirmed 51751143043431 Problem Pure hyperglyceridemia E78.1 confirmed 004741628 Problem Insulin resistance E88.81 confirmed 7 47318888 Problem Type 2 diabetes mellitus with diabetic neuropathy, uns pecified E11.40 confirmed 3466378470917 Problem Muscle spasm of both lower legs M62.838 conf irmed 52826273 Problem Irritable bowel syndrome with diarrhea K58.0 confirmed 041445681 Problem High triglycerides E78.1 confirmed 3 79753947 Problem Esophageal erosions K22.10 confirmed 722601030 Problem Comprehensive diabetic foot examination, type 2 DM, encounter for E11.9 confirmed 17017637 Problem Non-seasonal allergic rhinitis due to other allergic marcellus er J30.89 confirmed 46673624 Problem Insomnia G47.00 confirmed 409911482 Problem Poor diet E63.9 confirmed 142430988 Problem Essential (primary) hypertension I10 conf irmed 71062515 Problem Generalized anxiety disorder F41.1 confirme d 59940092 Problem Diverticular disease K57.90 confirmed 134229488 Problem Autism spectrum F84.0 confirmed 3591 9005 Problem Type 2 diabetes mellitus with ketoacidosis without coma E11.10 confirmed 032798770 Problem Diabetic polyneuropathy associated with type 2 d iabetes mellitus E11.42 confirmed 02377559 Problem Anxiety disorder F41.9 confirmed 197 355718 Problem Type 2 diabetes mellitus with hyperglycemia E11.65 confirmed 081429248 Problem Attention deficit hyperactivity disorder F90.9 confirmed 646992157 Problem Acute right-sided low back pain with right-sided sciatica M54.41 confirmed 063029403 Problem BMI 50.0-59.9, adult Z68.43 confirmed 422099059 Problem Major depressive disorder, recurrent, moderate F33.1 confirmed 56355497 Problem Pulmonary hypertension I27.20 confirmed 37935329 Problem Chronic gingivitis, plaque induced K05.10 co nfirmed 01223719 Problem Other chronic gastritis without hemorrhage K29.50 confirmed 4537993 Problem Essential hypertension I10 confirmed 70650585 Problem Other chronic pain G89.29 confirmed 8 8094576 Problem Lumbago with sciatica, left side M54.42 conf irmed 293726744 Problem Gastroesophageal reflux disease with esophagitis without hemorrhage K21.00 confirmed 107964675 Problem Autism disorder F84.0 confirmed 4088 09079 Problem Mixed hyperlipidemia E78.2 confirmed 137935619 ALLERGIES Allergen (clinical drug ingredient) Drug/Non Drug Allergy do cumented on EMR Reaction Allergy Type Onset Date Status albuterol Albuterol Unknown Drug Allergy Active sertraline Zoloft([facility] Code:[address]-01) hives adverse reaction Drug Allergy Active semaglutide Ozempic (0.25 or 0.5 MG/DOSE)([facility] Code:99086-437 10-02) Unknown Drug Allergy Active clindamycin Clindamycin HCl([facility] Code:[address]-69) itching Drug A llergy Active BuSpar local swelling Drug Allergy Active Wellbutrin "out of it" Drug Allergy Active ENCOUNTERS from 1978 to 2023-01-10 Encounter Location Date Provider Diagnosis [facility] [address] [facility] [id number] [address] January, MILY HAY IMMUNIZATIONS Vaccine Route Administration [...] four times a day Nov, Active Pen [place] 32G X 4 MM use with insulin [...] 30 Active ProAir HFA as directed prn Not-Takjennie louis Mounjaro 5 MG/0.5ML INJECT 5MG SUBCUTANEOUSLY (U [...] day for 90 days January, Active Nystatin 304223 UNIT/GM 1 application Externally Twice a day [...] left upper thigh- H 04/2017 Hospitalization History [place]-inpatient psych 4 day stay 201 4 Hospitalization History ED [place]- Shaking, unsure of blood sugar level 11/20/2017 Hospitalization History ER visit for ketosis 08/07 Hospitalization History [facility] ER, seen for Dehydration 10/2018 Hospitalization History [place] 04/2019 Hospitalization History chest pain, jaw pain, SOA, h eart tests, x2 day, [facility] [place] 11/2020 Hospitalization History DKA 10/01/21 Hospitalization History DKA covid 19 about 5 days 05/2022 Goals Section No Information Health Concerns No Information MEDICAL EQUIPMENT No Information MENTAL STATUS No Information FUNCTIONAL STATUS No Information ASSESSMENTS No Information PLAN OF TREATMENT Next Appt Details Provider Name:JENNIFER RANDALL, 2023-01-28 01:00:00 PM, [address] [place] [address], [id number], [place], [address], Provider Name:ESTER NAGY, 09:00:00 AM, [address] [place] [address], [id number], [place], [address], Provider Name:ZACHARY LEVIN, 2023-02-22 0 2:40:00 PM, [address] [place] [address], [id number], [place], [address], Provider Name:ZACHARY LEVIN, 2023-04-20 0 3:20:00 PM, [address] [place] [address], [id number], [place], [address], Insurance Providers Payer Name Payer Address Payer Phone Insured Name Patient Relati onship to Insured Coverage Start Date Coverage End Date Subscriber Number Nu mber NON [facility] 19 [address] [facility] [address] Frankie Salas Self - patient is the insured [id number] [facility] [address] [facility] [address] Frankie Salas Self - patient is the insured [id number] [facility] 19 [address] [facility] [address] Frankie Salas Self - patient is the insured [id number] [facility] MEDICARE Part A [address] [facility] [address] Frankie Salas Self - patient is the insured [id number] [employer] 19 [facility] [address] [facility] [address] Frankie Salas Self - patient is the insured [id number] [facility] [address] [facility] [address] Frankie Salas Self - patient is the insured [id number] [facility] Dual Medicare Complete HMO [address] [facility] [address] MaritzaFrankie Belkis Self - patient is the insured 2019 [id number] [facility] 19 [address] [facility] [address] MaritzaFrankie Belkis Self - patient is the insured 2022 [id number] MEDICATIONS ADMINISTERED Medication Instructions Date of Administration [...]
--- OUTSIDE RECORDS SUMMARY | 2023-03-02 17:54 | XMS REPORT ---
Author Author 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 Name Role Phone ZACHARY LEVIN Unavailable PROBLEMS Type Condition ICD9-CM Code XSO49-XH Code Onset Dates Condition S tatus W/U Status Risk SNOMED Code Notes Problem Seasonal allergies J30.2 confirmed 4 54277625 Problem Other chronic pain G89.29 confirmed 8 6762053 Problem Hypogonadism in male E29.1 confirmed 54383099 Problem Uncontrolled type 2 diabetes mellitus with hyperglycemia E11.65 confirmed 053184129 Problem Morbid obesity due to excess calories E66.01 confirmed 335510406 Problem Major depressive disorder F32.9 confirmed 688427681 Problem Anxiety F41.9 confirmed 38425045 Problem Gastro-esophageal reflux disease with esophagiti s, without bleeding K21.00 confirmed 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 conf irmed 045039031 Problem BMI 45.0-49.9, adult Z68.42 confirmed 688151523 Problem Chronic fatigue R53.82 confirmed 5270 2003 Problem Type 2 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 confirmed 49066940 Problem Mild episode of recurrent major depressive disorder F33.0 confirmed 864633427 Problem Hyperlipidemia, mixed E78.2 confirmed 639143056 Problem Major depressive disorder with current active episode F33.9 confirmed 14529557 Problem Primary insomnia F51.01 confirmed 397 2004 Problem GERD with esophagitis K21.0 confirmed 804505318 Problem Gastroparesis K31.84 confirmed 267135 006 Problem Type 2 diabetes mellitus with diabetic autonomic (poly)neuropathy E11.43 confirmed 951263513 Problem Diverticulitis K57.92 confirmed 68575 6006 Problem Neuropathy G62.9 confirmed 737996760 Problem KHADAR (obstructive sleep apnea) G47.33 confirm ed 85423763 Problem Diabetic mononeuropathy associated with type 2 d iabetes mellitus E11.41 confirmed 950323927 Problem Arthritis M19.90 confirmed 2520682 Problem Chronic sinusitis, unspecified J32.9 confir med 058501979 Problem Pure hypercholesterolemia E78.00 confirmed 139267913 Problem Allergic rhinitis, unspecified seasonality, unspecifie d trigger J30.9 confirmed 29993418 Problem Type 2 diabetes mellitus with other specified complication E11.69 confirmed 65512292137992 Problem Pure hyperglyceridemia E78.1 confirmed 956687361 Problem Insulin resistance E88.81 confirmed 7 62059125 Problem Type 2 diabetes mellitus with diabetic neuropathy, uns pecified E11.40 confirmed 2348439943473 Problem Muscle spasm of both lower legs M62.838 conf irmed 34300785 Problem Irritable bowel syndrome with diarrhea K58.0 confirmed 564623505 Problem High triglycerides E78.1 confirmed 3 24802583 Problem Esophageal erosions K22.10 confirmed 585330966 Problem Comprehensive diabetic foot examination, type 2 DM, encounter for E11.9 confirmed 94801008 Problem Non-seasonal allergic rhinitis due to other allergic marcellus er J30.89 confirmed 15414430 Problem Insomnia G47.00 confirmed 710911125 Problem Poor diet E63.9 confirmed 707879842 Problem Essential (primary) hypertension I10 conf irmed 04036839 Problem Generalized anxiety disorder F41.1 confirme d 16442168 Problem Diverticular disease K57.90 confirmed 011236524 Problem Autism spectrum F84.0 confirmed 3591 9005 Problem Type 2 diabetes mellitus with ketoacidosis without coma E11.10 confirmed 894286044 Problem Diabetic polyneuropathy associated with type 2 d iabetes mellitus E11.42 confirmed 88744089 Problem Anxiety disorder F41.9 confirmed 197 702403 Problem Type 2 diabetes mellitus with hyperglycemia E11.65 confirmed 469408615 Problem Attention deficit hyperactivity disorder F90.9 confirmed 394801326 Problem Acute right-sided low back pain with right-sided sciatica M54.41 confirmed 987206724 Problem BMI 50.0-59.9, adult Z68.43 confirmed 151821896 Problem Major depressive disorder, recurrent, moderate F33.1 confirmed 32973547 Problem Pulmonary hypertension I27.20 confirmed 45357858 Problem Chronic gingivitis, plaque induced K05.10 co nfirmed 71641470 Problem Other chronic gastritis without hemorrhage K29.50 confirmed 0714845 Problem Essential hypertension I10 confirmed 59578639 Problem Other chronic pain G89.29 confirmed 8 8198549 Problem Lumbago with sciatica, left side M54.42 conf irmed 047140975 Problem Gastroesophageal reflux disease with esophagitis without hemorrhage K21.00 confirmed 679586272 Problem Autism disorder F84.0 confirmed 4088 77123 Problem Mixed hyperlipidemia E78.2 confirmed 676511301 ALLERGIES Allergen (clinical drug ingredient) Drug/Non Drug Allergy do cumented on EMR Reaction Allergy Type Onset Date Status albuterol Albuterol Unknown Drug Allergy Active sertraline Zoloft([facility] Code:[address]-98) hives adverse reaction Drug Allergy Active semaglutide Ozempic (0.25 or 0.5 MG/DOSE)([facility] Code:70047-770 10-02) Unknown Drug Allergy Active clindamycin Clindamycin HCl([facility] Code:[address]-39) itching Drug A llergy Active BuSpar local swelling Drug Allergy Active Wellbutrin "out of it" Drug Allergy Active ENCOUNTERS from 1978 to 2023-02-18 Encounter Location Date Provider Diagnosis [facility] [address] [facility] [id number] [place] [address] 16 Feb, 2021 ZACHARY LEVIN Type 2 diabetes lucian itus with hyperglycemia E11.65 ; Foreign body of left ear, initial encounter T16.2XXA and BMI 45.0-49.9, adult Z68.42 IMMUNIZATIONS Vaccine Route Administration Date Status tdap [...] in Feb, Height-cm 177.8 cm Feb, Weight 345.7 lbs Feb, Weight-kg 156.81 kg Feb, Temperature 97.7 degrees Fahrenheit Feb, Heart Rate 111 bpm Feb, Respiratory Rate 18 bpm Feb, Oximetry 96 % Feb, BMI 49.6 kg/m2 Feb, Blood pressure systolic 140 mmHg Feb, Blood pressure diastolic 92 mmHg Feb, MEDICATIONS Medication SIG (Take, Route, [...] prn for 30 days Aug, Active [place] 32G X 4 MM use with insulin [...] meal 3 meals a day Active Nystatin 058820 UNIT/GM 1 application Externally Twice a day [...] Information RESULTS No Results REASON FOR VISIT chm diabetic- Pt states he is taking his sugars about 15 times a day. Averaging in 200's. -[facility] MEDICAL (GENERAL) HISTORY Type Description Date Medical [...] Surgical History colonoscopy 02/2021 Hospitalization History [facility] for diabetes 09/2011 Hospitalization History [facility] diabetic issues 09/2015 Hospitalization History [facility] Pneumonia 01/2016 Hospitalization History celluitis of the left upper thigh-[facility] 04/2017 Hospitalization History [facility]inpatient psych 4 day stay 201 4 Hospitalization History ED [place]- Shaking, unsure of blood sugar level 11/20/2017 Hospitalization History ER visit for ketosis 08/07 Hospitalization History [facility] ER, seen for Dehydration 10/2018 Hospitalization History Fell at home 04/2019 Hospitalization History chest pain, jaw pain, SOA, h eart tests, x2 day, [facility] [place] 11/2020 Hospitalization History DKA 10/01/21 Hospitalization History DKA covid 19 about 5 days 05/2022 Goals Section No Information Health Concerns No Information MEDICAL EQUIPMENT No Information MENTAL STATUS No Information FUNCTIONAL STATUS No Information ASSESSMENTS Encounter Date Diagnosis Assessment Notes Treatment Notes Treatm ent Clinical Notes Feb, Foreign body of left ear, initial encoun ter (ICD-10 - T16.2XXA) Ear irrigated today and bug removed. Pat ient tolerated procedure well. Imagine bug was contributing to irritation of canal. Feb, Type 2 diabetes mellitus with hyperglycemia (ICD -10 - E11.65) Patient working with DM education. Has obtained freestyle martha and is doing well making some dietary changes. Continue to watch diet. Encouraged exercise. Feb, BMI 45.0-49.9, adult (ICD-10 - Z68.42) see above Feb, Other Unclear what is causing chest pain - it is atypical and doesn't seem to be cardiac in nature. Recommend biofreeze or aspercream. If worsens or becomes more frequent may need repeat cardiac work up. Did discuss PT as this may be helpful. Patient declined at this time. A total of 30 minutes was spent on this encounter by the billing provider on the date of visit, including preparing to see patient, reviewing medical records and history, speaking with patient/caregiver and examining patient, ordering tests / medications / procedures / referrals, completing paperwork for patient, care coordination, communicating test results to the caregiver, and documenting in the medical record. PLAN OF TREATMENT Medication Medication Name Sig Start Date Stop Date clonazePAM 1 MG 0.5-1 tablet Orally daily as needed for anxiety for 28 days Lyrica 150 MG 1 capsule Orally three times a day for 28 days 3 Jan, 2023 Mirtazapine 30 MG 1 tablet at bedtime Orally Once a day for 30 d ays Treatment Notes Assessment Notes Clinical Notes Foreign body of left ear, initial encounter Ear irri gated today and bug removed. Patient tolerated procedure well. Imagine bug was contributing to irritation of canal. Type 2 diabetes mellitus with hyperglycemia Patient working with DM education. Has obtained freestyle martha and is doing well making some dietary changes. Continue to watch diet. Encouraged exercise. BMI 45.0-49.9, adult see above Next Appt Details 4 Weeks Reason:chm and diet Provider Name:ZACHARY LEVIN, 2023-02-22 0 2:40:00 PM, [address] [facility], [id number], [place], [address], Provider Name:ZACHARY OLLIE, 2023-02-23 1 1:00:00 AM, [address] [facility], [id number], [place], [address], Provider Name:ESTER NAGY, 10:30:00 AM, [address] [facility], [id number], [place], [address], Provider Name:ZACHARY LEVIN, 2023-04-20 0 3:20:00 PM, [address] [facility], [id number], [place], [address], Provider Name:JENNIFER RANDALL, 2023-04-29 02:20:00 PM, [address] [place] [address], [id number], [place], [address], Provider Name:ESTER NAGY, 10:30:00 AM, [address] [facility], [id number], [place], [address], Follow Up:4 Weekschm and diet Insurance Providers Payer Name Payer Address Payer Phone Insured Name Patient Relati onship to Insured Coverage Start Date Coverage End Date Subscriber Number Group Nu mber [facility] [address] [facility] [phone] Frankie Salas Self - patient is the insured [id number] [employer] [facility] [address] [facility] [address] [facility] [address] Frankie Salas Self - patient is the insured [id number] [facility] 19 [address] [facility] [phone] Frankie Salas Self - patient is the insured [id number] [facility] 19 [address] [facility] [address] Frankie Salas Self - patient is the insured [id number] [employer] MEDICARE Part A [address] [facility] [address] Frankie Salas Self - patient is the insured [id number] [facility] [address] [facility] [address] Frankie Salas Self - patient is the insured [id number] [facility] 19 [address] [facility] [address] [phone] Frankie Salas Self - patient is the insured [id number] [facility] Dual Medicare Complete HMO [address] [facility] [address] Frankie Salas Self - patient is the insured 2019 [id number] MEDICATIONS ADMINISTERED Medication Instructions Date of Administration [...]
--- OUTSIDE RECORDS SUMMARY | 2023-03-02 17:54 | XMS REPORT ---
Author Author [facility] Address Unknown Phone Unavailable Care Team Providers Care Crowning Inspector Name Role Phone ESSIE JOHNSON Unavailable PROBLEMS Type Condition ICD9-CM Code QBM21-SY Code Onset Dates Condition S tatus W/U Status Risk SNOMED Code Notes Problem Seasonal allergies J30.2 confirmed 4 36028862 Problem Other chronic pain G89.29 confirmed 8 3724390 Problem Hypogonadism in male E29.1 confirmed 17067540 Problem Uncontrolled type 2 diabetes mellitus with hyperglycemia E11.65 confirmed 910301825 Problem Morbid obesity due to excess calories E66.01 confirmed 078551377 Problem Major depressive disorder F32.9 confirmed 589230022 Problem Anxiety F41.9 confirmed 53042168 Problem Gastro-esophageal reflux disease with esophagiti s, without bleeding K21.00 confirmed Problem 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 coordinator 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.4 conf irmed 226863158 Problem BMI 45.0-49.9, adult Z68.42 confirmed 003835354 Problem Chronic fatigue R53.82 confirmed 5270 2003 Problem Type 2 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 confirmed 54611898 Problem Mild episode of recurrent major depressive disorder F33.0 confirmed 733170689 Problem Hyperlipidemia, mixed E78.2 confirmed 638951103 Problem Major depressive disorder with current active episode F33.9 confirmed 94681565 Problem Primary insomnia F51.01 confirmed 397 2004 Problem GERD with esophagitis K21.0 confirmed 760465276 Problem Gastroparesis K31.84 confirmed 783427 006 Problem Type 2 diabetes mellitus with diabetic autonomic (poly)neuropathy E11.43 confirmed 007597773 Problem Diverticulitis K57.92 confirmed 00169 6006 Problem Neuropathy G62.9 confirmed 884786994 Problem KHADAR (obstructive sleep apnea) G47.33 confirm ed 09640029 Problem Diabetic mononeuropathy associated with type 2 d iabetes mellitus E11.41 confirmed 209071259 Problem Arthritis M19.90 confirmed 8892898 Problem Chronic sinusitis, unspecified J32.9 confir med 632614524 Problem Pure hypercholesterolemia E78.00 confirmed 556145155 Problem Allergic rhinitis, unspecified seasonality, unspecifie d trigger J30.9 confirmed 65618643 Problem Type 2 diabetes mellitus with other specified complication E11.69 confirmed 23814021852328 Problem Pure hyperglyceridemia E78.1 confirmed 912513157 Problem Insulin resistance E88.81 confirmed 7 42837954 Problem Type 2 diabetes mellitus with diabetic neuropathy, uns pecified E11.40 confirmed 6629169451111 Problem Muscle spasm of both lower legs M62.838 conf irmed 76743467 Problem Irritable bowel syndrome with diarrhea K58.0 confirmed 255840415 Problem High triglycerides E78.1 confirmed 3 90370547 Problem Esophageal erosions K22.10 confirmed 629274862 Problem Comprehensive diabetic foot examination, type 2 DM, encounter for E11.9 confirmed 08008881 Problem Non-seasonal allergic rhinitis due to other allergic marcellus er J30.89 confirmed 20584087 Problem Insomnia G47.00 confirmed 589519011 Problem Poor diet E63.9 confirmed 602352414 Problem Essential (primary) hypertension I10 conf irmed 00056447 Problem Generalized anxiety disorder F41.1 confirme d 02661997 Problem Diverticular disease K57.90 confirmed 369798559 Problem Autism spectrum F84.0 confirmed 3591 9005 Problem Type 2 diabetes mellitus with ketoacidosis without coma E11.10 confirmed 472863358 Problem Diabetic polyneuropathy associated with type 2 d iabetes mellitus E11.42 confirmed 94325260 Problem Anxiety disorder F41.9 confirmed 197 121249 Problem Type 2 diabetes mellitus with hyperglycemia E11.65 confirmed 829204459 Problem Attention deficit hyperactivity disorder F90.9 confirmed 872564833 Problem Acute right-sided low back pain with right-sided sciatica M54.41 confirmed 321771110 Problem BMI 50.0-59.9, adult Z68.43 confirmed 354760480 Problem Major depressive disorder, recurrent, moderate F33.1 confirmed 64709371 Problem Pulmonary hypertension I27.20 confirmed 60028616 Problem Chronic gingivitis, plaque induced K05.10 co nfirmed 61017268 Problem Other chronic gastritis without hemorrhage K29.50 confirmed 3958145 Problem Essential hypertension I10 confirmed 88225570 Problem Other chronic pain G89.29 confirmed 8 2532270 Problem Lumbago with sciatica, left side M54.42 conf irmed 595688747 Problem Gastroesophageal reflux disease with esophagitis without hemorrhage K21.00 confirmed 271319356 Problem Autism disorder F84.0 confirmed 4088 46251 Problem Mixed hyperlipidemia E78.2 confirmed 613534540 ALLERGIES Allergen (clinical drug ingredient) Drug/Non Drug Allergy do cumented on EMR Reaction Allergy Type Onset Date Status albuterol Albuterol Unknown Drug Allergy Active sertraline Zoloft([facility] Code:[address]-37) hives adverse reaction Drug Allergy Active semaglutide Ozempic (0.25 or 0.5 MG/DOSE)([facility] Code:04545-409 10-02) Unknown Drug Allergy Active clindamycin Clindamycin HCl([facility] Code:[address]-12) itching Drug A llergy Active BuSpar local swelling Drug Allergy Active Wellbutrin "out of it" Drug Allergy Active ENCOUNTERS from 1978 to 2023-02-16 Encounter Location Date Provider Diagnosis [facility] [address] [facility] [id number] [place] [address] Feb, ESSIE JOHNSON IMMUNIZATIONS Vaccine Route Administration Date Status Influenza [...] prn for 30 days Aug, Active Pen Cresson 32G X 4 MM use with insulin pens for in jection subcutaneously 3 times a day for 30 days Feb, Active tiZANidine HCl 4 MG 1 tablet Orally TID PRN for 30 days Active Gvoke HypoPen 2-Pack 1 MG/0.2ML as directed [email or web address]neo us for severe hypoglycemia PRN low bs Jun, Active Nebulizer System All-In-One - as directed by inhalation route as needed Jun, Active HumuLIN R U-500 KwikPen 500 UNIT/ML 200 Units SC AC 5 days 30 units before meals Subcutaneous three times daily for 30 days 200 units per meal 3 meals a day Active Nystatin 918964 UNIT/GM 1 application Externally Twice a day [...] Information RESULTS No Results REASON FOR VISIT Tax paperwork MEDICAL (GENERAL) HISTORY Type Description Date Medical [...] Surgical History colonoscopy 02/2021 Hospitalization History [facility] for diabetes 09/2011 Hospitalization History [facility] diabetic issues 09/2015 Hospitalization History [facility] Pneumonia 01/2016 Hospitalization History [facility] the left upper thigh[facility] 04/2017 Hospitalization History [facility]-inpatient psych 4 day stay 201 4 Hospitalization History ED [place]- Shaking, unsure of blood sugar level 11/20/2017 Hospitalization History ER visit for ketosis 08/07 Hospitalization History [facility] ER, seen for Dehydration 10/2018 Hospitalization History Fell at home 04/2019 Hospitalization History chest pain, jaw pain, SOA, h eart tests, x2 day, [place] 11/2020 Hospitalization History DKA 10/01/21 Hospitalization History [...] times a day for 28 days 3 0 Jan, 2023 Mirtazapine 30 MG 1 tablet at bedtime Orally Once a day for 30 d ays Next Appt Details Provider Name:ESTER NAGY, 09:00:00 AM, [address] [facility], [id number], [place], [address], Provider Name:ZACHARY LEVIN, 2023-02-22 0 2:40:00 PM, [address] [facility], [id number], [place], [address], Provider Name:ZACHARY LEVIN, 2023-02-23 1 1:00:00 AM, [address] [facility], [id number], [place], [address], Provider Name:ZACHARY LEVIN, 2023-04-20 0 3:20:00 PM, [address] [facility], [id number], [place], [address], Provider Name:JENNIFER RANDALL, 2023-04-29 02:20:00 PM, [address] [facility], [id number], [place], [address], Insurance Providers Payer Name Payer Address Payer Phone Insured Name Patient Relati onship to Insured Coverage Start Date Coverage End Date Subscriber Number Group Nu mber NGS MEDICARE Part A [address] [facility] [id number] Frankie Salas Self - patient is the insured [id number] [facility] Dental [address] [facility] [address] Frankie Salas Self - patient is the insured [id number] [employer] 19 [facility] [address] [employer] [facility] [address] Frankie Salas Self - patient is the insured [id number] [facility] [address] [facility] [address] Frankie Salas Self - patient is the insured 15 1977 [facility] 19 [address] [facility] [address] Frankie Salas Self - patient is the insured [id number] [facility] 19 [address] [facility] [address] Frankie Salas Self - patient is the insured [id number] [facility] Dual Medicare Complete HMO [address] [facility] [phone] Frankie Salas Self - patient is the insured 2019 [id number] [facility] 19 [address] [facility] [address] Frankie Salas Self - patient is the insured 2022 [id number] MEDICATIONS ADMINISTERED Medication Instructions Date of Administration Dosage Ketorolac Tromethamine Dec, 60 mg TESTOSTERONE (PT'S OWN) May, 0.5 mL TESTOSTERONE (PT'S OWN) Mar, 100 mg KENALOG 40 MG/ML (PER 10 MG) Aug, 80 mg TESTOSTERONE (PT'S OWN) Nov, 0.5 mg TESTOSTERONE (PT'S OWN) Mar, 200 mg Ketorolac Tromethamine Nov, 1 mL KENALOG 40 MG/ML (PER 10 MG) Apr, 80 mg SOLUMEDROL (UP TO 125 MG) Feb, 62.5 m g TESTOSTERONE (PT'S OWN) Oct, 100 mg DEPO MEDROL 40 MG/ML Jun, 40 mg Ketorolac Tromethamine Aug, 2 mL TORADOL 30 MG/2ML (KETOROLAC) May, 60 mg DEPO MEDROL 80 MG/ML Feb, 80 mg DEXAMETHASONE 4MG/ML (PER 1 ML) Jun, 4 mg Dexamethasone Nov, 1 mL TESTOSTERONE (PT'S OWN) Apr, 100 mg DEPO-Medrol Nov, 1 mL TESTOSTERONE (PT'S OWN) Dec, 0.5 mL
--- OUTSIDE RECORDS SUMMARY | 2023-03-02 17:54 | XMS REPORT ---
Author Author [facility] Address Unknown Phone Unavailable Care Team Providers Care Behaviorist Name Role Phone ZACHARY LEVIN Unavailable PROBLEMS Type Condition ICD9-CM Code LIQ09-SJ Code Onset Dates Condition S tatus W/U Status Risk SNOMED Code Notes Problem Seasonal allergies J30.2 confirmed 4 38647368 Problem Other chronic pain G89.29 confirmed 8 4058517 Problem Hypogonadism in male E29.1 confirmed 99314563 Problem Uncontrolled type 2 diabetes mellitus with hyperglycemia E11.65 confirmed 426627820 Problem Morbid obesity due to excess calories E66.01 confirmed 820368694 Problem Major depressive disorder F32.9 confirmed 646401496 Problem Anxiety F41.9 confirmed 32492411 Problem Gastro-esophageal reflux disease with esophagiti s, without bleeding K21.00 confirmed Problem terminal supervisor 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.4 conf irmed 053768847 Problem BMI 45.0-49.9, adult Z68.42 confirmed 005302729 Problem Chronic fatigue R53.82 confirmed 5270 2003 Problem Type 2 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 confirmed 47359677 Problem Mild episode of recurrent major depressive disorder F33.0 confirmed 482909364 Problem Hyperlipidemia, mixed E78.2 confirmed 130009070 Problem Major depressive disorder with current active episode F33.9 confirmed 43736153 Problem Primary insomnia F51.01 confirmed 397 2004 Problem GERD with esophagitis K21.0 confirmed 689691586 Problem Gastroparesis K31.84 confirmed 107376 006 Problem Type 2 diabetes mellitus with diabetic autonomic (poly)neuropathy E11.43 confirmed 409324362 Problem Diverticulitis K57.92 confirmed 08850 6006 Problem Neuropathy G62.9 confirmed 803740348 Problem KHADAR (obstructive sleep apnea) G47.33 confirm ed 01330693 Problem Diabetic mononeuropathy associated with type 2 d iabetes mellitus E11.41 confirmed 434784424 Problem Arthritis M19.90 confirmed 7870215 Problem Chronic sinusitis, unspecified J32.9 confir med 065149869 Problem Pure hypercholesterolemia E78.00 confirmed 069038037 Problem Allergic rhinitis, unspecified seasonality, unspecifie d trigger J30.9 confirmed 94239243 Problem Type 2 diabetes mellitus with other specified complication E11.69 confirmed 32687502238383 Problem Pure hyperglyceridemia E78.1 confirmed 036710804 Problem Insulin resistance E88.81 confirmed 7 71676314 Problem Type 2 diabetes mellitus with diabetic neuropathy, uns pecified E11.40 confirmed 3639670316886 Problem Muscle spasm of both lower legs M62.838 conf irmed 31606337 Problem Irritable bowel syndrome with diarrhea K58.0 confirmed 706740244 Problem High triglycerides E78.1 confirmed 3 82107351 Problem Esophageal erosions K22.10 confirmed 970977375 Problem Comprehensive diabetic foot examination, type 2 DM, encounter for E11.9 confirmed 22250453 Problem Non-seasonal allergic rhinitis due to other allergic marcellus er J30.89 confirmed 11185913 Problem Insomnia G47.00 confirmed 132895482 Problem Poor diet E63.9 confirmed 805878219 Problem Essential (primary) hypertension I10 conf irmed 74156479 Problem Generalized anxiety disorder F41.1 confirme d 60323632 Problem Diverticular disease K57.90 confirmed 657305569 Problem Autism spectrum F84.0 confirmed 3591 9005 Problem Type 2 diabetes mellitus with ketoacidosis without coma E11.10 confirmed 232606696 Problem Diabetic polyneuropathy associated with type 2 d iabetes mellitus E11.42 confirmed 77600428 Problem Anxiety disorder F41.9 confirmed 197 537071 Problem Type 2 diabetes mellitus with hyperglycemia E11.65 confirmed 233834684 Problem Attention deficit hyperactivity disorder F90.9 confirmed 423154663 Problem Acute right-sided low back pain with right-sided sciatica M54.41 confirmed 033429663 Problem BMI 50.0-59.9, adult Z68.43 confirmed 109219878 Problem Major depressive disorder, recurrent, moderate F33.1 confirmed 85984295 Problem Pulmonary hypertension I27.20 confirmed 74183287 Problem Chronic gingivitis, plaque induced K05.10 co nfirmed 95504366 Problem Other chronic gastritis without hemorrhage K29.50 confirmed 8090592 Problem Essential hypertension I10 confirmed 97150647 Problem Other chronic pain G89.29 confirmed 8 7928432 Problem Lumbago with sciatica, left side M54.42 conf irmed 261718926 Problem Gastroesophageal reflux disease with esophagitis without hemorrhage K21.00 confirmed 692106006 Problem Autism disorder F84.0 confirmed 4088 03114 Problem Mixed hyperlipidemia E78.2 confirmed 712809670 ALLERGIES Allergen (clinical drug ingredient) Drug/Non Drug Allergy do cumented on EMR Reaction Allergy Type Onset Date Status albuterol Albuterol Unknown Drug Allergy Active sertraline Zoloft([facility] Code:[address]-06) hives adverse reaction Drug Allergy Active semaglutide Ozempic (0.25 or 0.5 MG/DOSE)([facility] Code:90739-969 10-02) Unknown Drug Allergy Active clindamycin Clindamycin HCl([facility] Code:[address]-55) itching Drug A llergy Active BuSpar local swelling Drug Allergy Active Wellbutrin "out of it" Drug Allergy Active ENCOUNTERS from 1978 to 2023-01-21 Encounter Location Date Provider Diagnosis [facility] [address] [facility] [id number] [address] [place] [address] January, ZACHARY LEVIN Type 2 diabetes lucian itus with hyperglycemia E11.65 ; Generalized anxiety disorder F41.1 ; Hypogonadism in male E29.1 and Costochondritis M94.0 IMMUNIZATIONS Vaccine Route Administration Date Status Influenza [...] VITAL SIGNS Height 70 in January, Weight 339.2 lbs January, Weight-kg 153.86 kg January, Temperature 98.5 degrees Fahrenheit January, Heart Rate 116 bpm January, Respiratory Rate 18 bpm January, Oximetry 98 % January, BMI 48.66 kg/m2 January, Blood pressure systolic 122 mmHg January, Blood pressure diastolic 66 mmHg January, MEDICATIONS Medication SIG (Take, Route, [...] for 14 days prn Sep, Active Pen Stopover 32G X 4 MM use with insulin [...] MOUTH ONCE DAILY for 30 Active Nystatin 249662 UNIT/GM 1 application Externally Twice a day [...] Information RESULTS No Results REASON FOR VISIT Internal Patient Transfer, Would like to talk about his health issues including diabetes, RzerrMA, Last A1C= 9.6 MEDICAL (GENERAL) HISTORY Type Description Date Medical [...] left upper thigh- H 04/2017 Hospitalization History [facility]-inpatient psych 4 day stay 201 4 Hospitalization History ED [place]- Shaking, unsure of blood sugar level 11/20/2017 Hospitalization History ER visit for ketosis 08/07 Hospitalization History [facility] ER, seen for Dehydration 10/2018 Hospitalization History Fell at home 04/2019 Hospitalization History chest pain, jaw pain, SOA, h eart tests, x2 day, [facility] [place] 11/2020 Hospitalization History DKA 10/01/21 Hospitalization History DKA covid 19 about 5 days 05/2022 Goals Section No Information Health Concerns No Information MEDICAL EQUIPMENT No Information MENTAL STATUS No Information FUNCTIONAL STATUS No Information ASSESSMENTS Encounter Date Diagnosis Assessment Notes Treatment Notes Treatm ent Clinical Notes January, Type 2 diabetes mellitus with hyperglycemia (ICD -10 - E11.65) Had long discussion today about the need for patient to take ownership of his health in order to improve his diabetes. Eating two Arevalo's sandwhiches a day is NOT conducive to a diabetic diet. Discussed changes that would help with weight loss including walking 10min a day. Is currently managed for DM with our diabetes team so will let them continue to mange. Ideally would like to see reduction in insulin dosing. January, Generalized anxiety disorder (ICD-10 - F41.1) Has intake with tomorrow. January, Hypogonadism in male (ICD-10 - E29.1) Has history of hypogonadism, will repeat am testosterone January, Costochondritis (ICD-10 - M94.0) Exam findings consistent with costochondritis. Cannot take NSAIDS given GI issues. Do not favor steroids in this patient due to uncontrolled DM and weight. Will try lidocaine patches for now. PLAN OF TREATMENT Medication Medication Name Sig Start Date Stop Date Synjardy XR 12.5-1000 MG 2 tabs with breakfast Orally Once a day for 90 days Oct, Lyrica 150 MG 1 capsule Orally three times a day for 28 days 0 January, Treatment Notes Assessment Notes Clinical Notes Type 2 diabetes mellitus with hyperglycemia Had long discussion today about the need for patient to take ownership of his health in order to improve his diabetes. Eating two Arevalo's sandwhiches a day is NOT conducive to a diabetic diet. Discussed changes that would help with weight loss including walking 10min a day. Is currently managed for DM with our diabetes team so will let them continue to mange. Ideally would like to see reduction in insulin dosing. Generalized anxiety disorder Has intake with ethan rr. Hypogonadism in male Has history of hypogonadism, will repeat am testosterone Costochondritis Exam findings consistent wit h costochondritis. Cannot take NSAIDS given GI issues. Do not favor steroids in this patient due to uncontrolled DM and weight. Will try lidocaine patches for now. Next Appt Details 4 Weeks Reason: Provider Name:ZACHARY LEVIN, 2023-01-26 0 2:00:00 PM, [address] [facility], [id number], [place], [address], Provider Name:JENNIFER PULIDOBRAVO, 2023-01-28 01:00:00 PM, [address] [place] [address], [id number], [place], [address], Provider Name:ZACHARY LEVIN, 2023-02-02 0 2:00:00 PM, [address] [place] [address], [id number], [place], [address], Provider Name:ZACHARY LEVIN, 2023-02-09 0 2:00:00 PM, [address] [place] [address], [id number], [place], [address], Provider Name:ZACHARY LEVIN, 2023-02-16 0 2:00:00 PM, [address] [place] [address], [id number], [place], [address], Provider Name:ESTER NAGY, 09:00:00 AM, [address] [place] [address], [id number], [place], [address], Provider Name:ZACHARY LEVIN, 2023-02-22 0 2:40:00 PM, [address] [place] [address], [id number], [place], [address], Provider Name:ZACHARY OLLIE, 2023-04-20 0 3:20:00 PM, [address] [place] [address], [id number], [place], [address], Insurance Providers Payer Name Payer Address Payer Phone Insured Name Patient Relati onship to Insured Coverage Start Date Coverage End Date Subscriber Number Group Nu mber [facility] [address] [facility] [phone] Frankie Salas Self - patient is the insured [id number] SCION [facility] 19 [facility] [address] [employer] [facility] [address] Frankie Salas Self - patient is the insured [id number] NGS MEDICARE Part A FI [address] [facility] [address] Frankie Salas Self - patient is the insured 2014 [id number] [facility] 19 [address] [facility] [address] [phone] Frankie Salas Self - patient is the insured 2022 [id number] [facility] 19 [address] [facility] [address] Frankie Salas Self - patient is the insured [id number] [facility] Dental [address] [facility] [address] Frankie Salas Self - patient is the insured [id number] [facility] Dual Medicare Complete HMO [address] [facility] [phone] Frankie Salas Self - patient is the insured 2019 [id number] [facility] 19 [address] [facility] [address] Frankie Salas Self - patient is the insured [id number] MEDICATIONS ADMINISTERED Medication Instructions Date of Administration Dosage KENALOG 40 MG/ML (PER 10 MG) Apr, 80 mg TESTOSTERONE (PT'S OWN) Mar, 100 mg TESTOSTERONE (PT'S OWN) May, 0.5 mL TESTOSTERONE (PT'S OWN) Oct, 100 mg TORADOL 30 MG/2ML (KETOROLAC) May, 60 mg SOLUMEDROL (UP TO 125 MG) Feb, 62.5 m g DEPO-Medrol Nov, 1 mL DEPO MEDROL 80 MG/ML Feb, 80 mg Ketorolac Tromethamine Nov, 1 mL Dexamethasone Nov, 1 mL Ketorolac Tromethamine Dec, 60 mg Ketorolac Tromethamine Aug, 2 mL DEXAMETHASONE 4MG/ML (PER 1 ML) Jun, 4 mg TESTOSTERONE (PT'S OWN) Dec, 0.5 mL TESTOSTERONE (PT'S OWN) Mar, 200 mg KENALOG 40 MG/ML (PER 10 MG) Aug, 80 mg TESTOSTERONE (PT'S OWN) Apr, 100 mg TESTOSTERONE (PT'S OWN) Nov, 0.5 mg DEPO MEDROL 40 MG/ML Jun, 40 mg
--- OUTSIDE RECORDS SUMMARY | 2023-03-02 17:54 | XMS REPORT ---
Author Author [facility] Address Unknown Phone Unavailable Care Team Providers Care Pesticide Chemist Name Role Phone MILY HAY Unavailable PROBLEMS Type Condition ICD9-CM Code LXQ06-ZX Code Onset Dates Condition S tatus W/U Status Risk SNOMED Code Notes Problem Seasonal allergies J30.2 confirmed 4 73921364 Problem Other chronic pain G89.29 confirmed 8 0273508 Problem Hypogonadism in male E29.1 confirmed 75645904 Problem Uncontrolled type 2 diabetes mellitus with hyperglycemia E11.65 confirmed 622411962 Problem Morbid obesity due to excess calories E66.01 confirmed 088101057 Problem Major depressive disorder F32.9 confirmed 180072106 Problem Anxiety F41.9 confirmed 18967823 Problem Gastro-esophageal reflux disease with esophagiti s, without bleeding K21.00 confirmed 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.4 conf irmed 032982896 Problem BMI 45.0-49.9, adult Z68.42 confirmed 256571395 Problem Chronic fatigue R53.82 confirmed 5270 2003 Problem Type 2 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 confirmed 90566701 Problem Mild episode of recurrent major depressive disorder F33.0 confirmed 582522920 Problem Hyperlipidemia, mixed E78.2 confirmed 892762916 Problem Major depressive disorder with current active episode F33.9 confirmed 21277476 Problem Primary insomnia F51.01 confirmed 397 2004 Problem GERD with esophagitis K21.0 confirmed 424271624 Problem Gastroparesis K31.84 confirmed 818017 006 Problem Type 2 diabetes mellitus with diabetic autonomic (poly)neuropathy E11.43 confirmed 669005178 Problem Diverticulitis K57.92 confirmed 15871 6006 Problem Neuropathy G62.9 confirmed 258271055 Problem KHADAR (obstructive sleep apnea) G47.33 confirm ed 92781926 Problem Diabetic mononeuropathy associated with type 2 d iabetes mellitus E11.41 confirmed 650418831 Problem Arthritis M19.90 confirmed 9768465 Problem Chronic sinusitis, unspecified J32.9 confir med 832372213 Problem Pure hypercholesterolemia E78.00 confirmed 127287133 Problem Allergic rhinitis, unspecified seasonality, unspecifie d trigger J30.9 confirmed 91787476 Problem Type 2 diabetes mellitus with other specified complication E11.69 confirmed 01100885031367 Problem Pure hyperglyceridemia E78.1 confirmed 967333312 Problem Insulin resistance E88.81 confirmed 7 65120155 Problem Type 2 diabetes mellitus with diabetic neuropathy, uns pecified E11.40 confirmed 2831426116056 Problem Muscle spasm of both lower legs M62.838 conf irmed 88448572 Problem Irritable bowel syndrome with diarrhea K58.0 confirmed 834817897 Problem High triglycerides E78.1 confirmed 3 99091525 Problem Esophageal erosions K22.10 confirmed 484988823 Problem Comprehensive diabetic foot examination, type 2 DM, encounter for E11.9 confirmed 15672254 Problem Non-seasonal allergic rhinitis due to other allergic marcellus er J30.89 confirmed 65929336 Problem Insomnia G47.00 confirmed 247792572 Problem Poor diet E63.9 confirmed 069629233 Problem Essential (primary) hypertension I10 conf irmed 84908136 Problem Generalized anxiety disorder F41.1 confirme d 49297606 Problem Diverticular disease K57.90 confirmed 343997733 Problem Autism spectrum F84.0 confirmed 3591 9005 Problem Type 2 diabetes mellitus with ketoacidosis without coma E11.10 confirmed 434596970 Problem Diabetic polyneuropathy associated with type 2 d iabetes mellitus E11.42 confirmed 44596850 Problem Anxiety disorder F41.9 confirmed 197 210758 Problem Type 2 diabetes mellitus with hyperglycemia E11.65 confirmed 599059348 Problem Attention deficit hyperactivity disorder F90.9 confirmed 017969541 Problem Acute right-sided low back pain with right-sided sciatica M54.41 confirmed 614489695 Problem BMI 50.0-59.9, adult Z68.43 confirmed 854563727 Problem Major depressive disorder, recurrent, moderate F33.1 confirmed 06373005 Problem Pulmonary hypertension I27.20 confirmed 03042729 Problem Chronic gingivitis, plaque induced K05.10 co nfirmed 32742523 Problem Other chronic gastritis without hemorrhage K29.50 confirmed 5419115 Problem Essential hypertension I10 confirmed 31719236 Problem Other chronic pain G89.29 confirmed 8 8150852 Problem Lumbago with sciatica, left side M54.42 conf irmed 631090087 Problem Gastroesophageal reflux disease with esophagitis without hemorrhage K21.00 confirmed 180990138 Problem Autism disorder F84.0 confirmed 4088 40826 Problem Mixed hyperlipidemia E78.2 confirmed 718393101 ALLERGIES Allergen (clinical drug ingredient) Drug/Non Drug Allergy do cumented on EMR Reaction Allergy Type Onset Date Status albuterol Albuterol Unknown Drug Allergy Active sertraline Zoloft([facility] Code:[address]-37) hives adverse reaction Drug Allergy Active semaglutide Ozempic (0.25 or 0.5 MG/DOSE)([facility] Code:80656-579 10-02) Unknown Drug Allergy Active clindamycin Clindamycin HCl([facility] Code:[address]-92) itching Drug A llergy Active BuSpar local swelling Drug Allergy Active Wellbutrin "out of it" Drug Allergy Active ENCOUNTERS from 1978 to 2023-01-17 Encounter Location Date Provider Diagnosis [facility] [address] [facility] [id number] [place] [address] January, MILY HAY Type 2 diabetes mellitus wit h hyperglycemia E11.65 IMMUNIZATIONS Vaccine Route Administration Date [...] other tobacco user? No REASON FOR REFERRAL from 1980 to 2023-01-17 Reason DM/Carb counting/portion con trol- patient would like to coordinate appointment with his monthly appts with Dr Levin. Thank you. Diagnosis 1 Type 2 diabetes mellitus wit h hyperglycemia (E11.65) Referral Organization [facility] Referring Provider First Name MILY Referring Provider Last Name SATNAM Referring Provider Specialty Nurse Practitioner Referred Organization [facility] Referred Provider ROMARIO WREN Referred Address [address] [id number] [facility],[address] Referred Provider Specialty Dietitian Referral Priority Routine General Notes Gui White 02/06/2021 04 :13:49 PM > VM full, sent eMsg Gui White 02/11/2021 03:05:39 PM >VM full, sent eMsg Gui White 02/11/2021 03:26:09 PM > spoke with pt and he wanted to think about the appt before schedule, he stated he would call back to schedule if interested. VITAL SIGNS No information MEDICATIONS Medication SIG [...] a day for 30 days Active Pen [place] 32G X 4 MM use with insulin [...] day for 90 days January, Active Nystatin 470766 UNIT/GM 1 application Externally Twice a day [...] Information RESULTS No Results REASON FOR VISIT januvia MEDICAL (GENERAL) HISTORY Type Description Date Medical [...] History colonoscopy 02/2021 Hospitalization History [facility] for diabetes 09/2011 Hospitalization History [facility] diabetic issues 09/2015 Hospitalization History [facility] Pneumonia 01/2016 Hospitalization History celluitis of the left upper thigh-[facility] H 04/2017 Hospitalization History [facility]-inpatient psych 4 day stay 201 4 Hospitalization History ED [place], unsure of blood sugar level 11/20/2017 Hospitalization History ER visit for ketosis 08/07 Hospitalization History [facility] ER, seen for Dehydration 10/2018 Hospitalization History [place]ell at home 04/2019 Hospitalization History chest pain, jaw pain, SOA, h eart tests, x2 day, VC [place] 11/2020 Hospitalization History DKA 10/01/21 Hospitalization History DKA covid 19 about 5 days 05/2022 Goals Section No Information Health Concerns No Information MEDICAL EQUIPMENT No Information MENTAL STATUS No Information FUNCTIONAL STATUS No Information ASSESSMENTS Encounter Date Diagnosis Assessment Notes Treatment Notes Treatm ent Clinical Notes January, Type 2 diabetes mellitus with hyperglyce ana (ICD-10 - E11.65) PLAN OF TREATMENT Medication Medication Name Sig Start Date Stop Date Synjardy XR 12.5-1000 MG 2 tabs with breakfast Orally Once a day for 90 days Oct, Referrals Referral Date Details DM/Carb counting/portion con trol- patient would like to coordinate appointment with his monthly appts with Dr Levin. Thank you., ROMARIO Monteiro, [address] [place] [address], [id number], Next Appt Details Provider Name:ZACHARY LEVIN, 2023-01-19 0 2:00:00 PM, [address] [place] [address], [id number], [address], Provider Name:JENNIFER RANDALL, 2023-01-28 01:00:00 PM, [address] [place] [address], [id number], [place], [address], Provider Name:ESTER NAGY, 09:00:00 AM, [address] [place] [address], [id number], [place], [address], Provider Name:ZACHARY LEVIN, 2023-02-22 0 2:40:00 PM, [address] [place] [address], [id number], [place], [address], Provider Name:ZACHARY LEVIN, 2023-04-20 0 3:20:00 PM, [address] [place] [address], [id number], [place], [address], Insurance Providers Payer Name Payer Address Payer Phone Insured Name Patient Relati onship to Insured Coverage Start Date Coverage End Date Subscriber Number Group Nu mber [facility] Dual Medicare Complete HMO [address] [facility] [address] Frankie Salas Self - patient is the insured 2019 [id number] [facility] MEDICARE Part A FI [address] [facility] [address] Frankie Salas Self - patient is the insured [id number] NON [facility] 19 [address] [facility] [address] Frankie Salas Self - patient is the insured [id number] [employer] 19 [facility] [address] [facility] [address] Frankie Salas Self - patient is the insured [id number] [facility] 19 [address] [facility] [address] Frankie Salas Self - patient is the insured [id number] [facility] Dental [address] [facility] [address] RoddymanuelFrankie cardenas Self - patient is the insured [id number] [facility] [address] [facility] [address] [phone] BobadriánFrankie cardenas Self - patient is the insured [id number] [facility] 19 [address] [facility] [address] [phone] Frankie Salas Self - patient is the insured 2022 [id number] MEDICATIONS ADMINISTERED Medication Instructions Date of Administration [...]
--- OUTSIDE RECORDS SUMMARY | 2023-03-02 17:54 | XMS REPORT ---
Author Author [facility] Address Unknown Phone Unavailable Care Team Providers Care Management Development Specialist Name Role Phone MILY HAY Unavailable PROBLEMS Type Condition ICD9-CM Code QCK31-OE Code Onset Dates Condition S tatus W/U Status Risk SNOMED Code Notes Problem Seasonal allergies J30.2 confirmed 4 50981172 Problem Other chronic pain G89.29 confirmed 8 6699424 Problem Hypogonadism in male E29.1 confirmed 06241477 Problem Uncontrolled type 2 diabetes mellitus with hyperglycemia E11.65 confirmed 497137954 Problem Morbid obesity due to excess calories E66.01 confirmed 146711800 Problem Major depressive disorder F32.9 confirmed 009047573 Problem Anxiety F41.9 confirmed 59481206 Problem Gastro-esophageal reflux disease with esophagiti s, without bleeding K21.00 confirmed 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.4 conf irmed 491216512 Problem BMI 45.0-49.9, adult Z68.42 confirmed 158989566 Problem Chronic fatigue R53.82 confirmed 5270 2003 Problem Type 2 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 confirmed 48471941 Problem Mild episode of recurrent major depressive disorder F33.0 confirmed 238545690 Problem Hyperlipidemia, mixed E78.2 confirmed 291438005 Problem Major depressive disorder with current active episode F33.9 confirmed 91540954 Problem Primary insomnia F51.01 confirmed 397 2004 Problem GERD with esophagitis K21.0 confirmed 811283969 Problem Gastroparesis K31.84 confirmed 030256 006 Problem Type 2 diabetes mellitus with diabetic autonomic (poly)neuropathy E11.43 confirmed 868531423 Problem Diverticulitis K57.92 confirmed 74502 6006 Problem Neuropathy G62.9 confirmed 306926695 Problem KHADAR (obstructive sleep apnea) G47.33 confirm ed 25114585 Problem Diabetic mononeuropathy associated with type 2 d iabetes mellitus E11.41 confirmed 749716498 Problem Arthritis M19.90 confirmed 3066990 Problem Chronic sinusitis, unspecified J32.9 confir med 877905298 Problem Pure hypercholesterolemia E78.00 confirmed 118201923 Problem Allergic rhinitis, unspecified seasonality, unspecifie d trigger J30.9 confirmed 51974241 Problem Type 2 diabetes mellitus with other specified complication E11.69 confirmed 53042029857306 Problem Pure hyperglyceridemia E78.1 confirmed 878417656 Problem Insulin resistance E88.81 confirmed 7 89738804 Problem Type 2 diabetes mellitus with diabetic neuropathy, uns pecified E11.40 confirmed 2020131129054 Problem Muscle spasm of both lower legs M62.838 conf irmed 55399775 Problem Irritable bowel syndrome with diarrhea K58.0 confirmed 970155911 Problem High triglycerides E78.1 confirmed 3 74948033 Problem Esophageal erosions K22.10 confirmed 651741499 Problem Comprehensive diabetic foot examination, type 2 DM, encounter for E11.9 confirmed 87139659 Problem Non-seasonal allergic rhinitis due to other allergic marcellus er J30.89 confirmed 93198771 Problem Insomnia G47.00 confirmed 562276259 Problem Poor diet E63.9 confirmed 647390759 Problem Essential (primary) hypertension I10 conf irmed 35948071 Problem Generalized anxiety disorder F41.1 confirme d 79489720 Problem Diverticular disease K57.90 confirmed 575979809 Problem Autism spectrum F84.0 confirmed 3591 9005 Problem Type 2 diabetes mellitus with ketoacidosis without coma E11.10 confirmed 295599531 Problem Diabetic polyneuropathy associated with type 2 d iabetes mellitus E11.42 confirmed 33005692 Problem Anxiety disorder F41.9 confirmed 197 512410 Problem Type 2 diabetes mellitus with hyperglycemia E11.65 confirmed 958920308 Problem Attention deficit hyperactivity disorder F90.9 confirmed 912102511 Problem Acute right-sided low back pain with right-sided sciatica M54.41 confirmed 503995250 Problem BMI 50.0-59.9, adult Z68.43 confirmed 817818299 Problem Major depressive disorder, recurrent, moderate F33.1 confirmed 09060077 Problem Pulmonary hypertension I27.20 confirmed 48962116 Problem Chronic gingivitis, plaque induced K05.10 co nfirmed 45965844 Problem Other chronic gastritis without hemorrhage K29.50 confirmed 9418968 Problem Essential hypertension I10 confirmed 33578574 Problem Other chronic pain G89.29 confirmed 8 1010864 Problem Lumbago with sciatica, left side M54.42 conf irmed 909710475 Problem Gastroesophageal reflux disease with esophagitis without hemorrhage K21.00 confirmed 597407322 Problem Autism disorder F84.0 confirmed 4088 15397 Problem Mixed hyperlipidemia E78.2 confirmed 410639739 ALLERGIES Allergen (clinical drug ingredient) Drug/Non Drug Allergy do cumented on EMR Reaction Allergy Type Onset Date Status albuterol Albuterol Unknown Drug Allergy Active sertraline Zoloft([facility] Code:[address]-02) hives adverse reaction Drug Allergy Active semaglutide Ozempic (0.25 or 0.5 MG/DOSE)([facility] Code:20851-925 10-02) Unknown Drug Allergy Active clindamycin Clindamycin HCl([facility] Code:[address]-11) itching Drug A llergy Active BuSpar local swelling Drug Allergy Active Wellbutrin "out of it" Drug Allergy Active ENCOUNTERS from 1978 to 2023-01-11 Encounter Location Date Provider Diagnosis [facility] [address] [facility] [id number] [place] [address] January, MILY HAY Type 2 diabetes lucian [...] four times a day Nov, Active Pen [place] 32G X 4 MM use with insulin [...] 30 Active ProAir HFA as directed prn Not-Raymon louis Mounjaro 5 MG/0.5ML INJECT 5MG SUBCUTANEOUSLY [...] day for 90 days January, Active Nystatin 282447 UNIT/GM 1 application Externally Twice a day [...] Information RESULTS No Results REASON FOR VISIT free style training MEDICAL (GENERAL) HISTORY Type Description Date Medical [...] left upper thigh- H 04/2017 Hospitalization History [facility]-inpatient psych 4 day stay 201 4 Hospitalization History ED [place]- [place], unsure of blood sugar level 11/20/2017 Hospitalization History ER visit for ketosis 08/07 Hospitalization History [facility] ER, seen for Dehydration 10/2018 Hospitalization History Fell at home 04/2019 Hospitalization History chest pain, jaw pain, SOA, h eart tests, x2 day, VC [place] 11/2020 Hospitalization History DKA 10/01/21 Hospitalization History DKA covid 19 about 5 days 05/2022 Goals Section No Information Health Concerns No Information MEDICAL EQUIPMENT No Information MENTAL STATUS No Information FUNCTIONAL STATUS No Information ASSESSMENTS Encounter Date Diagnosis Assessment Notes Treatment Notes Treatm ent Clinical Notes January, Type 2 diabetes mellitus with hyperglycemia (ICD -10 - E11.65) Patient presents in clinic with CGM and all needed supplies to complete training. CGM siteselection/preparation, sensor applicator use, copper etcher setup, sensor removal and change frequency reviewed and completed with patient. Trend arrows and treatment decision guides, technical support contact numbers, sensor replacement contact numbers and DME supplier contact numbers reviewed and provided to patient for take home/after care use as well as added to patients chart. CGM f/u scheduled with diabetic provider on 03/12/21. PLAN OF TREATMENT Treatment Notes Assessment Notes Clinical Notes Type 2 diabetes mellitus with hyperglycemia Patient pr esents in clinic with CGM and all needed supplies to complete training. CGM siteselection/preparation, sensor applicator use, copper etcher setup, sensor removal and change frequency reviewed and completed with patient. Trend arrows and treatment decision guides, technical support contact numbers, sensor replacement contact numbers and DME supplier contact numbers reviewed and provided to patient for take home/after care use as well as added to patients chart. CGM f/u scheduled with diabetic provider on 03/12/21. Next Appt Details 03/12/21 Reason:DM with Arlen Provider Name:JENNIFER RANDALL, 2023-01-28 01:00:00 PM, [address] [facility], [id number], [place], [address], Provider Name:ESTER NAGY, 09:00:00 AM, [address] [facility], [id number], [place], [address], Provider Name:ZACHARY LEVIN, 2023-02-22 0 2:40:00 PM, [address] [facility], [id number], [place], [address], Provider Name:ZACHARY LEVIN, 2023-04-20 0 3:20:00 PM, [address] [facility], [id number], [place], [address], Follow Up:03/12/21DM with Arlen Insurance Providers Payer Name Payer Address Payer Phone Insured Name Patient Relati onship to Insured Coverage Start Date Coverage End Date Subscriber Number Group Nu mber [facility] 19 [address] [facility] [address] [phone] Frankie Salas Self - patient is the insured 2022 [id number] [facility] [address] [facility] [address] [facility] [address] Frankie Salas Self - patient is the insured [id number] [facility] [address] [facility] [id number] Frankie Salas Self - patient is the insured [id number] [employer] MEDICARE Part A [address] [facility] [address] Frankie Salas Self - patient is the insured [id number] [facility] Dual Medicare Complete HMO [address] [facility] [address] Frankie Salas Belkis Self - patient is the insured 2019 [id number] [facility] 19 [address] [facility] [address] Frankie Salas Belkis Self - patient is the insured [id number] [facility] [address] [facility] [address] RoddymanuelFrankie cardenas Belkis Self - patient is the insured [id number] [facility] 19 [address] [facility] [address] Frankie Salas Belkis Self - patient is the insured [id number] MEDICATIONS ADMINISTERED Medication Instructions Date of Administration [...]
--- OUTSIDE RECORDS SUMMARY | 2023-03-02 17:54 | XMS REPORT ---
Author Author [facility] Address Unknown Phone Unavailable Care Team Providers Care Logging Worker Name Role Phone MILY HAY Unavailable PROBLEMS Type Condition ICD9-CM Code [id number] Code Onset Dates Condition S tatus W/U Status Risk SNOMED Code Notes Problem Seasonal allergies J30.2 confirmed 4 62656390 Problem Other chronic pain G89.29 confirmed 8 1984985 Problem Hypogonadism in male E29.1 confirmed 78193042 Problem Uncontrolled type 2 diabetes mellitus with hyperglycemia E11.65 confirmed 245508655 Problem Morbid obesity due to excess calories E66.01 confirmed 808299072 Problem Major depressive disorder F32.9 confirmed 035300942 Problem Anxiety F41.9 confirmed 85039248 Problem Gastro-esophageal reflux disease with esophagiti s, without bleeding K21.00 confirmed Problem 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.4 conf irmed 470839644 Problem BMI 45.0-49.9, adult Z68.42 confirmed 855782659 Problem Chronic fatigue R53.82 confirmed 5270 2003 Problem Type 2 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 confirmed 23694383 Problem Mild episode of recurrent major depressive disorder F33.0 confirmed 071510186 Problem Hyperlipidemia, mixed E78.2 confirmed 489740950 Problem Major depressive disorder with current active episode F33.9 confirmed 09331240 Problem Primary insomnia F51.01 confirmed 397 2004 Problem GERD with esophagitis K21.0 confirmed 924613037 Problem Gastroparesis K31.84 confirmed 131200 006 Problem Type 2 diabetes mellitus with diabetic autonomic (poly)neuropathy E11.43 confirmed 073759947 Problem Diverticulitis K57.92 confirmed 67847 6006 Problem Neuropathy G62.9 confirmed 077555937 Problem KHADAR (obstructive sleep apnea) G47.33 confirm ed 90029480 Problem Diabetic mononeuropathy associated with type 2 d iabetes mellitus E11.41 confirmed 597744244 Problem Arthritis M19.90 confirmed 1099613 Problem Chronic sinusitis, unspecified J32.9 confir med 212101743 Problem Pure hypercholesterolemia E78.00 confirmed 973860131 Problem Allergic rhinitis, unspecified seasonality, unspecifie d trigger J30.9 confirmed 82908638 Problem Type 2 diabetes mellitus with other specified complication E11.69 confirmed 70850340203133 Problem Pure hyperglyceridemia E78.1 confirmed 051247837 Problem Insulin resistance E88.81 confirmed 7 76793201 Problem Type 2 diabetes mellitus with diabetic neuropathy, uns pecified E11.40 confirmed 4856630634511 Problem Muscle spasm of both lower legs M62.838 conf irmed 71882163 Problem Irritable bowel syndrome with diarrhea K58.0 confirmed 673336408 Problem High triglycerides E78.1 confirmed 3 47100776 Problem Esophageal erosions K22.10 confirmed 806543382 Problem Comprehensive diabetic foot examination, type 2 DM, encounter for E11.9 confirmed 61716596 Problem Non-seasonal allergic rhinitis due to other allergic marcellus er J30.89 confirmed 25302756 Problem Insomnia G47.00 confirmed 454313711 Problem Poor diet E63.9 confirmed 454195572 Problem Essential (primary) hypertension I10 conf irmed 03891236 Problem Generalized anxiety disorder F41.1 confirme d 69956896 Problem Diverticular disease K57.90 confirmed 387454296 Problem Autism spectrum F84.0 confirmed 3591 9005 Problem Type 2 diabetes mellitus with ketoacidosis without coma E11.10 confirmed 035577935 Problem Diabetic polyneuropathy associated with type 2 d iabetes mellitus E11.42 confirmed 87264211 Problem Anxiety disorder F41.9 confirmed 197 788561 Problem Type 2 diabetes mellitus with hyperglycemia E11.65 confirmed 102453764 Problem Attention deficit hyperactivity disorder F90.9 confirmed 562477123 Problem Acute right-sided low back pain with right-sided sciatica M54.41 confirmed 046334140 Problem BMI 50.0-59.9, adult Z68.43 confirmed 135626443 Problem Major depressive disorder, recurrent, moderate F33.1 confirmed 22941602 Problem Pulmonary hypertension I27.20 confirmed 01889910 Problem Chronic gingivitis, plaque induced K05.10 co nfirmed 50543771 Problem Other chronic gastritis without hemorrhage K29.50 confirmed 5262267 Problem Essential hypertension I10 confirmed 16906641 Problem Other chronic pain G89.29 confirmed 8 4561252 Problem Lumbago with sciatica, left side M54.42 conf irmed 592788035 Problem Gastroesophageal reflux disease with esophagitis without hemorrhage K21.00 confirmed 107361892 Problem Autism disorder F84.0 confirmed 4088 91134 Problem Mixed hyperlipidemia E78.2 confirmed 051993975 ALLERGIES Allergen (clinical drug ingredient) Drug/Non Drug Allergy do cumented on EMR Reaction Allergy Type Onset Date Status albuterol Albuterol Unknown Drug Allergy Active sertraline Zoloft([facility] Code:[address]-27) hives adverse reaction Drug Allergy Active semaglutide Ozempic (0.25 or 0.5 MG/DOSE)([facility] Code:66200-246 2-11) Unknown Drug Allergy Active clindamycin Clindamycin HCl([facility] Code:[address]-50) itching Drug A llergy Active BuSpar local swelling Drug Allergy Active Wellbutrin "out of it" Drug Allergy Active ENCOUNTERS from 1978 to 2023-01-04 Encounter Location Date Provider Diagnosis [facility] [address] [facility] [id number] [address] [place] [address] January, MILY HAY Type 2 diabetes lucian itus with hyperglycemia E11.65 ; Foot callus L84 and 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.4 IMMUNIZATIONS Vaccine Route Administration Date Status tdap [...] VITAL SIGNS Height 70 in January, Weight 330.6 lbs January, Weight-kg 149.96 kg January, Temperature 96.9 degrees Fahrenheit January, Heart Rate 94 bpm January, Oximetry 98 % January, BMI 47.43 kg/m2 January, Blood pressure systolic 114 mmHg January, Blood pressure diastolic 72 mmHg January, MEDICATIONS Medication SIG (Take, Route, [...] four times a day Nov, Active Pen [place] 32G X 4 MM use with insulin [...] day for 90 days January, Active Nystatin 884360 UNIT/GM 1 application Externally Twice a day [...] Information RESULTS No Results REASON FOR VISIT DM 1 month, Due for / vision exam/ lab- bmp, a1c, microalbumin, b12- orders on c grace/ if indicated lab vitamin d level// btucker ma, marysol ma MEDICAL (GENERAL) HISTORY Type Description Date Medical [...] Surgical History colonoscopy 02/2021 Hospitalization History [facility] for diabetes 09/2011 Hospitalization History [facility] diabetic issues 09/2015 Hospitalization History [facility] Pneumonia 01/2016 Hospitalization History celluitis of the left upper thigh[facility] 04/2017 Hospitalization History [facility]-inpatient psych 4 day stay 201 4 Hospitalization History ED [place]- Shaking, unsure of blood sugar level 11/20/2017 Hospitalization History ER visit for ketosis 08/07 Hospitalization History [facility] ER, seen for Dehydration 10/2018 Hospitalization History [place]ell at home 04/2019 Hospitalization History chest pain, jaw pain, SOA, h eart tests, x2 day, [facility] [place] 11/2020 Hospitalization History DKA 10/01/21 Hospitalization History DKA covid 19 about 5 days 05/2022 Goals Section No Information Health Concerns No Information MEDICAL EQUIPMENT No Information MENTAL STATUS No Information FUNCTIONAL STATUS No Information ASSESSMENTS Encounter Date Diagnosis Assessment Notes Treatment Notes Treatm ent Clinical Notes January, Type 2 diabetes mellitus with hyperglycemia (ICD -10 - E11.65) Recommend use of humalog U200 - dosage will change as ordered. Pt will soon have Freestyle Sari. Once that is in place, we will calculate insulin sensitivity and start using I:C ratio for dosing purposes. A future alternative would be use of U500 if indicated., Type 2 Diabetes: Care Instructions material was published January, Foot callus (ICD-10 - L84) January, half-way current use of insulin (ICD-10 - Z79.4) January, Other 30 minutes are spent with the patient over 50% of the time was spent face to face PLAN OF TREATMENT Treatment Notes Assessment Notes Clinical Notes Type 2 diabetes mellitus with hyperglycemia Recommend use of humalog U200 - dosage will change as ordered. Pt will soon have Freestyle Sari. Once that is in place, we will calculate insulin sensitivity and start using I:C ratio for dosing purposes. A future alternative would be use of U500 if indicated., Type 2 Diabetes: Care Instructions material was published Next Appt Details 6 Weeks Reason: Provider Name:ZACHARY LEVIN, 2023-01-05 1 2:00:00 AM, [address] [place] [address], [id number], [place], [address], Provider Name:JENNIFER RANDALL, 2023-01-28 01:00:00 PM, [address] [place] [address], [id number], [place], [address], Provider Name:ESTER NAGY, 09:00:00 AM, [address] [place] [address], [id number], [place], [address], Provider Name:ZACHARY LEVIN, 2023-02-22 0 2:40:00 PM, [address] [place] [address], [id number], [place], [address], Provider Name:ZACHAYR LEVIN, 2023-04-20 0 3:20:00 PM, [address] [place] [address], [id number], [place], [address], Insurance Providers Payer Name Payer Address Payer Phone Insured Name Patient Relati onship to Insured Coverage Start Date Coverage End Date Subscriber Number Group Nu er [facility] [address] [facility] [address] [phone] Frankie Salas Self - patient is the insured [id number] [employer] 19 [facility] [address] [employer] [facility] [address] Frankie Salas Self - patient is the insured [id number] [facility] Dual Medicare Complete HMO [address] [facility] [address] Frankie Salas Self - patient is the insured 2019 [id number] [facility] 19 [address] [facility] [address] [phone] Frankie Salas Self - patient is the insured 2022 [id number] [facility] 19 [address] [facility] [phone] Frankie Salas Self - patient is the insured [id number] [facility] 19 [address] [facility] [address] Frankie Salas Self - patient is the insured [id number] [facility] MEDICARE Part A FI [address] [facility] [address] Frankie Salas Self - patient is the insured 2014 [id number] [facility] [address] [facility] [address] Frankie Salas Self - patient is the insured [id number] MEDICATIONS ADMINISTERED Medication Instructions Date of Administration Dosage TESTOSTERONE (PT'S OWN) May, 0.5 mL TESTOSTERONE (PT'S OWN) Dec, 0.5 mL Ketorolac Tromethamine Nov, 1 mL Ketorolac Tromethamine Dec, 60 mg TESTOSTERONE (PT'S OWN) Apr, 100 mg KENALOG 40 MG/ML (PER 10 MG) Apr, 80 mg KENALOG 40 MG/ML (PER 10 MG) Aug, 80 mg DEPO MEDROL 40 MG/ML Jun, 40 mg DEXAMETHASONE 4MG/ML (PER 1 ML) Jun, 4 mg SOLUMEDROL (UP TO 125 MG) Feb, 62.5 m g TESTOSTERONE (PT'S OWN) Mar, 200 mg DEPO MEDROL 80 MG/ML Feb, 80 mg TESTOSTERONE (PT'S OWN) Nov, 0.5 mg TORADOL 30 MG/2ML (KETOROLAC) May, 60 mg TESTOSTERONE (PT'S OWN) Mar, 100 mg TESTOSTERONE (PT'S OWN) Oct, 100 mg Dexamethasone Nov, 1 mL Ketorolac Tromethamine Aug, 2 mL DEPO-Medrol Nov, 1 mL
--- OUTSIDE RECORDS SUMMARY | 2023-03-02 17:55 | XMS REPORT ---
Author Author [facility] Address Unknown Phone Unavailable Care Team Providers Care Pump Tender Name Role Phone BLANKA LEAL Unavailable PROBLEMS Type Condition ICD9-CM Code CYZ89-EA Code Onset Dates Condition S tatus W/U Status Risk SNOMED Code Notes Problem Seasonal allergies J30.2 confirmed 4 66318260 Problem Other chronic pain G89.29 confirmed 8 9749347 Problem Hypogonadism in male E29.1 confirmed 26611909 Problem Uncontrolled type 2 diabetes mellitus with hyperglycemia E11.65 confirmed 894944132 Problem Morbid obesity due to excess calories E66.01 confirmed 472563868 Problem Major depressive disorder F32.9 confirmed 420936105 Problem Anxiety F41.9 confirmed 59477408 Problem Gastro-esophageal reflux disease with esophagiti s, without bleeding K21.00 confirmed Problem care home 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.4 conf irmed 808696457 Problem BMI 45.0-49.9, adult Z68.42 confirmed 821585629 Problem Chronic fatigue R53.82 confirmed 5270 2003 Problem Type 2 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 confirmed 00096018 Problem Mild episode of recurrent major depressive disorder F33.0 confirmed 422954579 Problem Hyperlipidemia, mixed E78.2 confirmed 222969800 Problem Major depressive disorder with current active episode F33.9 confirmed 29620724 Problem Primary insomnia F51.01 confirmed 397 2004 Problem GERD with esophagitis K21.0 confirmed 419051390 Problem Gastroparesis K31.84 confirmed 077694 006 Problem Type 2 diabetes mellitus with diabetic autonomic (poly)neuropathy E11.43 confirmed 064536880 Problem Diverticulitis K57.92 confirmed 42506 6006 Problem Neuropathy G62.9 confirmed 984736092 Problem KHADAR (obstructive sleep apnea) G47.33 confirm ed 35769384 Problem Diabetic mononeuropathy associated with type 2 d iabetes mellitus E11.41 confirmed 175129424 Problem Arthritis M19.90 confirmed 2853307 Problem Chronic sinusitis, unspecified J32.9 confir med 721852941 Problem Pure hypercholesterolemia E78.00 confirmed 863130550 Problem Allergic rhinitis, unspecified seasonality, unspecifie d trigger J30.9 confirmed 27287919 Problem Type 2 diabetes mellitus with other specified complication E11.69 confirmed 52720439652877 Problem Pure hyperglyceridemia E78.1 confirmed 964223962 Problem Insulin resistance E88.81 confirmed 7 30803028 Problem Type 2 diabetes mellitus with diabetic neuropathy, uns pecified E11.40 confirmed 7442345984093 Problem Muscle spasm of both lower legs M62.838 conf irmed 68646241 Problem Irritable bowel syndrome with diarrhea K58.0 confirmed 345867852 Problem High triglycerides E78.1 confirmed 3 83979440 Problem Esophageal erosions K22.10 confirmed 426710202 Problem Comprehensive diabetic foot examination, type 2 DM, encounter for E11.9 confirmed 54411330 Problem Non-seasonal allergic rhinitis due to other allergic marcellus er J30.89 confirmed 57069615 Problem Insomnia G47.00 confirmed 414558568 Problem Poor diet E63.9 confirmed 108023112 Problem Essential (primary) hypertension I10 conf irmed 42709453 Problem Generalized anxiety disorder F41.1 confirme d 60286260 Problem Diverticular disease K57.90 confirmed 473172447 Problem Autism spectrum F84.0 confirmed 3591 9005 Problem Type 2 diabetes mellitus with ketoacidosis without coma E11.10 confirmed 747301138 Problem Diabetic polyneuropathy associated with type 2 d iabetes mellitus E11.42 confirmed 12204216 Problem Anxiety disorder F41.9 confirmed 197 173218 Problem Type 2 diabetes mellitus with hyperglycemia E11.65 confirmed 436433460 Problem Attention deficit hyperactivity disorder F90.9 confirmed 814160477 Problem Acute right-sided low back pain with right-sided sciatica M54.41 confirmed 293008061 Problem BMI 50.0-59.9, adult Z68.43 confirmed 236208184 Problem Major depressive disorder, recurrent, moderate F33.1 confirmed 62792478 Problem Pulmonary hypertension I27.20 confirmed 56116866 Problem Chronic gingivitis, plaque induced K05.10 co nfirmed 59079833 Problem Other chronic gastritis without hemorrhage K29.50 confirmed 7095954 Problem Essential hypertension I10 confirmed 37771373 Problem Other chronic pain G89.29 confirmed 8 4697535 Problem Lumbago with sciatica, left side M54.42 conf irmed 488290881 Problem Gastroesophageal reflux disease with esophagitis without hemorrhage K21.00 confirmed 859930610 Problem Autism disorder F84.0 confirmed 4088 04471 Problem Mixed hyperlipidemia E78.2 confirmed 575950439 ALLERGIES Allergen (clinical drug ingredient) Drug/Non Drug Allergy do cumented on EMR Reaction Allergy Type Onset Date Status albuterol Albuterol Unknown Drug Allergy Active sertraline Zoloft([facility] Code:[address]-64) hives adverse reaction Drug Allergy Active semaglutide Ozempic (0.25 or 0.5 MG/DOSE)([facility] Code:92464-674 2-) Unknown Drug Allergy Active clindamycin Clindamycin HCl([facility] Code:[address]-95) itching Drug A llergy Active BuSpar local swelling Drug Allergy Active Wellbutrin "out of it" Drug Allergy Active ENCOUNTERS from 1978 to 2023-01-04 Encounter Location Date Provider Diagnosis [facility] [address] [id number] [address] [place] [address] Dec, CRYSTAL LEVIS Sore throat J02.9 an d Allergic rhinitis, unspecified seasonality, unspecified trigger J30.9 IMMUNIZATIONS Vaccine Route Administration Date Status tdap [...] No Information VITAL SIGNS Height 70 in Dec, Weight 329 lbs Dec, Weight-kg 149.23 kg Dec, Temperature 98.7 degrees Fahrenheit Dec, Heart Rate 88 bpm Dec, Respiratory Rate 18 bpm Dec, BMI 47.2 kg/m2 Dec, Blood pressure systolic 132 mmHg Dec, Blood pressure diastolic 74 mmHg Dec, MEDICATIONS Medication SIG (Take, Route, Frequency, Duration) [...] four times a day Nov, Active Pen [place] 32G X 4 MM use with insulin [...] day for 90 days January, Active Nystatin 929980 UNIT/GM 1 application Externally Twice a day [...] Subcutaneo for severe hypoglycemia PRN low bs 08 Jun, 2020 Active hydroCHLOROthiazide 25 MG Take one tablet orally prn for 30 days As n eeded Active Ibuprofen 800 MG 1 tablet with food or milk a s needed Orally every 8 hours prn for 30 days Aug, Active PROCEDURES No Information RESULTS No Results REASON FOR VISIT Ear ache-sore throat for 6 days- Alejandro Oliveros RN MEDICAL (GENERAL) HISTORY Type Description Date [...] Surgical History colonoscopy 02/2021 Hospitalization History Via [facility] for diabetes 09/2011 Hospitalization History [facility] diabetic issues 09/2015 Hospitalization History [facility] Pneumonia 01/2016 Hospitalization History celluitis of the left upper thigh- H 04/2017 Hospitalization History [facility]-inpatient psych 4 day stay 201 4 Hospitalization History [place]- Shaking, unsure of blood sugar level 11/20/2017 Hospitalization History ER visit for ketosis 08/07 Hospitalization History [facility] ER, seen for Dehydration 10/2018 Hospitalization History Fell at home 04/2019 Hospitalization History chest pain, jaw pain, SOA, h eart tests, x2 day, [facility] [place] 11/2020 Hospitalization History DKA 10/01/21 Hospitalization History DKA covid 19 about 5 days 05/2022 Goals Section No Information Health Concerns No Information MEDICAL EQUIPMENT No Information MENTAL STATUS No Information FUNCTIONAL STATUS No Information ASSESSMENTS Encounter Date Diagnosis Assessment Notes Treatment Notes Treatm ent Clinical Notes Dec, Sore throat (ICD-10 - J02.9) Dec, Allergic rhinitis, unspecifi ed seasonality, unspecified trigger (ICD-10 - J30.9) Allergies: Care Instructions material was published PLAN OF TREATMENT Treatment Notes Assessment Notes Clinical Notes Allergic rhinitis, unspecified seasonality, unspecifie d trigger Allergies: Care Instructions material was published Next Appt Details prn Reason: Provider Name:JENNIFER RANDALL, 2023-01-28 01:00:00 PM, [address], [id number], [place], [address], Provider Name:ESTER Sanon LILO, 09:00:00 AM, [address], [id number], [place], [address], Provider Name:ZACHARY OLLIE, 2023-02-22 0 2:40:00 PM, [address], [id number], [place], [address], Provider Name:ZACHARY OLLIE, 2023-04-20 0 3:20:00 PM, [address], [id number], [place], [address], Insurance Providers Payer Name Payer Address Payer Phone Insured Name Patient Relati onship to Insured Coverage Start Date Coverage End Date Subscriber Number Group Nu mber [facility] 19 [address] [facility] [phone] Frankie Salas Self - patient is the insured [id number] [facility] 19 [address] [facility] [phone] Frankie Salas Self - patient is the insured 2022 [id number] [facility] MEDICARE Part A FI [address] [facility] [id number] Frankie Salas Self - patient is the insured 2014 [id number] [facility] Dual Medicare Complete HMO [address] [facility] [address] Frankie Salas Self - patient is the insured 2019 [id number] [facility] 19 [facility] [address] [employer] [facility] [address] 01 Frankie Slaas Self - patient is the insured [id number] [facility] Physical Health [address] [facility] [address] Frankie Salas Self - patient is the insured [id number] [facility] 19 [address] [facility] [address] Frankie Salas Self - patient is the insured [id number] [facility] Dental [address] [facility] [address] [phone] BobestellaFrankie Belkis Self - patient is the insured [id number] MEDICATIONS ADMINISTERED Medication Instructions Date of Administration [...]
[2023-03-02] MEDS ORDERED: POTASSIUM CL 10MEQ/50ML IVPB 50 ML IV ONE (17:59)
[2023-03-02] MEDS ORDERED: D5 1/2 NS 1000 ML IV SOLUTION 1,000 ML IV ONE (17:59)
[2023-03-02] MEDS ORDERED: LACTULOSE SYRUP 10GM/15ML (ENULOSE) 30ML UDC PO PRN (18:00)
[2023-03-02] MEDS ORDERED: LORazepam 0.5 MG (ATIVAN) TABLET PO PRN (18:00)
[2023-03-02] MEDS ORDERED: MILK OF MAGNESIA 400 MG/5 ML 30 ML UDC PO PRN (18:00)
[2023-03-02] MEDS ORDERED: diphenhydrAMINE 25 MG TAB (BENADRYL) PO PRN (18:00)
[2023-03-02] MEDS ORDERED: MELATONIN 3 MG TABLET PO PRN (18:00)
[2023-03-02] MEDS ORDERED: BISACODYL 10 MG SUPP (DULCOLAX) PR PRN (18:00)
[2023-03-02] MEDS ORDERED: ACETAMINOPHEN 325 MG TABLET PO PRN (18:00)
[2023-03-02] MEDS ORDERED: ONDANSETRON 4 MG/2 ML (SDV) Z0FRAN IV PRN (18:00)
[2023-03-02] MEDS ORDERED: ONDANSETRON 4 MG (ZOFRAN) ORAL DISSOLVE TAB PO PRN (18:00)
[2023-03-02] MEDS ORDERED: LORazepam INJ 2 MG/ML (ATIVAN) VIAL IVP PRN (18:00)
[2023-03-02] MEDS ORDERED: POTASSIUM CL 10MEQ/50ML IVPB 50 ML IV SCH (18:00)
[2023-03-02] MEDS ORDERED: diphenhydrAMINE 50 MG/ML INJ (BENADRYL) IVP PRN (18:00)
[2023-03-02] MEDS ORDERED: CALCIUM CARBONATE 500 MG (TUMS) TAB.CHEW PO PRN (18:00)
[2023-03-02] MEDS ORDERED: NS IV 500 ML 500 ML IV PRN (18:00)
[2023-03-02] MEDS ORDERED: HYDROmorphone 2 MG/ML VIAL (DILAUDID) IV PRN (18:00)
[2023-03-02] MEDS ORDERED: polyethylene glycoL POWDER 17 GM (MIRALAX) PACK PO PRN (18:00)
--- NOTE | 2023-03-02 18:29 | Tele-ICU Consult ---
History of Present Illness History of Present Illness Date Seen by Provider: Mar 02, 2023 Time Seen by Provider: 18:26 Date of Admission eICU admit note 42 yo M known to have DM1, came to ED with nausea and vomiting, found to be in DKA with Cav074, venous pH 7.18HCO3 7, AG 23, BOH 6.63 started on DKA protocol Showing signs of dehydration with Hb 18 and Cr 1.56 At home takes insulin Humulog after meals, pt says dose is "225" SQ after meals Mounjaro 5 units once a week Did not take insulin today PMH morbid obesity Has not been tested for KHADAR but is suspected to have, pt snores Allergies and Home Medications Allergies Coded Allergies: sertraline (Verified Allergy, Severe, RASH, SWELLING, 04/09/20) "FELT LOOPY" bupropion (Verified Allergy, Unknown, "CAUSED ME TO BANG MY HEAD ON THE WALL", 04/09/20) buspirone (Verified Allergy, Unknown, THROAT SWELLED, 04/09/20) cephalexin (Verified Allergy, Unknown, HIVES, 04/09/20) codeine (Verified Allergy, Unknown, pt tolerated morphine in past, 06/10/22) sulfamethoxazole (Verified Adverse Reaction, Unknown, Itching, 04/09/20) trimethoprim (Verified Adverse Reaction, Unknown, Itching, 04/09/20) Home Medications Albuterol Sulfate 90 Mcg Hfa.aer.ad, 0 GM IH RTQ4HR PRN for SHORTNESS OF BREATH 2 puffs q4hrs prn Prescribed by: ZACH ROCHA on 06/14/22 1217 Amlodipine Besylate 5 Mg Tablet, 5 MG PO DAILY, (Reported) Aspirin 81 Mg Tablet.dr, 81 MG PO DAILY, (Reported) Cetirizine HCl 10 Mg Tablet, 10 MG PO DAILY PRN for ALLERGIES, (Reported) Chlorhexidine Gluconate 0.12 % Mouthwash, 15 ML PO UD PRN for ORAL HEALTH, (Reported) Dicyclomine HCl 20 Mg Tablet, 20 MG PO QID PRN for GI SPASMS, (Reported) Fluticasone Propionate 16 Gm [place].susp, 1 SPRAY NSEACH DAILY PRN for ALLERGIES, (Reported) Hydrochlorothiazide 25 Mg Tablet, 25 MG PO DAILY PRN for FLUID RETENTION, (Reported) Hydroxyzine HCl 50 Mg Tablet, 50 MG PO TID PRN for ANXIETY, (Reported) Insulin Regular, Human 500/Ml (3) Insuln.pen, 200 UNITS SC AC 30 units before meals until you ralk to your clinic doctor Prescribed by: ZACH ROCHA on 06/14/22 1217 Lisinopril 40 Mg Tablet, 40 MG PO DAILY, (Reported) Ondansetron 8 Mg Tab.rapdis, 8 MG PO Q8H PRN for NAUSEA/VOMITING-1ST LINE, (Reported) Pantoprazole Sodium 40 Mg Tablet.dr, 40 MG PO DAILY PRN for HEARTBURN, (Repo rted) Potassium Chloride 10 Meq Tab.er.prt, 10 MEQ PO BID Prescribed by: ZACH ROCHA on 06/14/22 1218 Pregabalin 150 Mg Capsule, 150 MG PO BID, (Reported) Sitagliptin Phosphate 100 Mg Tablet, 100 MG PO DAILY, (Reported) LAST FILLED 02-02-2022 #90/90 DAY SUPPLY Sucralfate 1 Gram Tablet, 1 GM PO ACHS, (Reported) Tizanidine HCl 4 Mg Tablet, 4 MG PO TID PRN for MUSCLE SPASMS, (Reported) Past Medical/Social/Family Hx Patient Social History Tobacco Use?: No Substance use?: Yes Substance type: Marijuana Substance frequency: Rarely Alcohol Use?: No Pt stated abuse/neglect: No Immunizations Up To Date First/Initial COVID19 Vaccinat: NONE Second COVID19 Vaccination Sundar: NONE Tetanus Booster (TDap): Unknown Hepatitis A: No Hepatitis B: No TB Skin Test: None Current Status Advance Directives: No Communicates: Verbally Primary Language: Russian Preferred Spoken Language: Russian Is interpretation needed?: No Implanted or Applied Medical D: None Past Medical History PMH: DM - diagnosed as Type 2 in his 20's - admitted for DKA 2011, 09/19/15 Hypertension Anxiety Hypogonadism (not currently treated) Obesity ADHA Chronic musculoskeletal pain PSH: Testicular surgery as infant for undescended testicles bilaterally Lap cholecystectomy 09/2014 Family Medical History Family Hx: SOCIAL HISTORY: -SMOKES UP TO 1 PPD -VAPES NICOTINE DAILY ALSO -ETOH--OCCASIONAL USE -DRUGS--SMOKES MARIJUANA DAILY Review of Systems Constitutional: see HPI EENTM: see HPI Respiratory: see HPI Cardiovascular: see HPI Gastrointestinal: see HPI Genitourinary: see HPI Musculoskeletal: see HPI Skin: see HPI Psychiatric/Neurological: See HPI Focused Exam Height, Weight, BMI Height: 5'11.00" Weight: 324lbs. 0.0oz. 146.927151ls; 48.00 BMI Method:Stated Exam Exam Patient acknowledged, consented, and participated in this virtual visit which was conducted using real time audio/video Vital Signs Date Time Temp Pulse Resp B/P (MAP) Pulse Ox O2 Delivery O2 Flow Rate FiO2 03/02/23 18:00 120 19 143/106 (118) 99 Room Air 03/02/23 17:58 121 03/02/23 17:40 18 158/102 100 Room Air 03/02/23 16:05 36.4 120 20 146/90 (108) 99 Height & Weight Height: 5'11.00" Weight: 324lbs. 0.0oz. 146.292773lj; 48.00 BMI Method:Stated General Appearance: No Apparent Distress, WD/WN HEENT: PERRL/EOMI, Pharynx Normal, Other (Slightly dry tongue) Neck: Full Range of Motion, Normal Inspection, Non Tender, Supple Respiratory: Chest Non Tender, Lungs Clear, Normal Breath Sounds, No Accessory Muscle Use, No Respiratory Distress Cardiovascular: Regular Rate, Rhythm, No Edema, Normal Peripheral Pulses, Tachycardia Capillary Refill: Less Than 3 Seconds Gastrointestinal: normal bowel sounds, non tender, soft Extremity: Normal Capillary Refill, Normal Inspection, Normal Range of Motion, Non Tender, No Calf Tenderness, No Pedal Edema Neurologic/Psychiatric: Alert, No Motor/Sensory Deficits, Normal Mood/Affect Skin: Normal Color, Warm/Dry Results Lab Laboratory Tests 03/02/23 16:25 Assessment/Plan Assessment/Plan Continue on IV insulin @ 2.5 U/h At some point would test for KHADAR rosa if Hb stays elevated Spoke with pt and airborne electronics analyst: Critically Ill Patient Time spent with patient (mins): 30 JOHN CASTAÑEDA MD Mar 02, 2023 18:29
[2023-03-02] MEDS: 1/2 NS IV SOLUTION 1,000 ML IV SCH ×2 (18:32→21:52)
[2023-03-02 18:37] LABS: POTASSIUM 4.4 MMOL/L (3.6-5.0)
[2023-03-02 18:42] LABS: CREATININE SERUM 1.4 MG/DL (0.60-1.30)
[2023-03-02] MEDS: ANTACID SUSP 30 ML UDC (MYLANTA) PO PRN ×2 (18:46→23:52)
[2023-03-02] MEDS: ENOXAPARIN 40 MG/0.4 ML (LOVENOX) SYR SC SCH (18:46)
[2023-03-02 19:44] VITALS: BP 159/84
[2023-03-02] MEDS: D5 1/2 NS 1000 ML IV SOLUTION 1,000 ML IV SCH ×2 (19:48→22:52)
[2023-03-02] MEDS: POTASSIUM CL 10MEQ/50ML IVPB 50 ML IV SCH ×3 (19:49→22:52)
[2023-03-02] MEDS ORDERED: RT-ALBUTEROL SULF 2.5 MG/3 ML PRE-MIX VIAL INH PRN (20:00)
[2023-03-02] MEDS: SENNOSIDES 8.6 MG (SENOKOT) TAB PO SCH (20:15)
[2023-03-02] MEDS: DOCUSATE SODIUM 100 MG (COLACE) CAP PO SCH (20:15)
[2023-03-02 20:36] LABS: POTASSIUM 4.4 MMOL/L (3.6-5.0)
[2023-03-02 20:37] LABS: CALCIUM 8.5 MG/DL (8.5-10.1)
[2023-03-02 20:41] LABS: CREATININE SERUM 1.4 MG/DL (0.60-1.30)
[2023-03-03] MEDS: POTASSIUM CL 10MEQ/50ML IVPB 50 ML IV SCH ×13 (00:49→22:29)
[2023-03-03] MEDS: 1/2 NS IV SOLUTION 1,000 ML IV SCH ×6 (01:13→22:10)
[2023-03-03 02:13] LABS: CALCIUM 8.5 MG/DL (8.5-10.1)
[2023-03-03 02:17] LABS: CREATININE SERUM 1.36 MG/DL (0.60-1.30)
[2023-03-03] MEDS: D5 1/2 NS 1000 ML IV SOLUTION 1,000 ML IV SCH ×6 (02:47→22:29)
--- NOTE | 2023-03-03 05:52 | History & Physical-Hospitalist ---
History of Present Illness HPI/Chief Complaint Chief complaint: DKA HPI: This is a 42-year-old male clinic patient of [facility] who presented with DKA. He was placed on insulin drip and is feeling much better. Acidosis is improving. No other concerns. Source: patient Exam Limitations: no limitations Date Seen 03/03/23 Time Seen by a Provider: 08:00 Attending Physician Kings Connolly DO PCP Admitting Physician: Radha Bradshaw DO Attending Physician: Radha Bradshaw DO Referring Physician Date of Admission Mar 02, 2023 at 17:51 Home Medications & Allergies Home Medications Reviewed patient Home Medication Reconciliation performed by pharmacy medication reconciliations range technician and/or nursing. Patients Allergies have been reviewed. Allergies Allergies Coded Allergies sertraline (Verified Allergy, Severe, RASH, SWELLING, 04/09/20) "FELT LOOPY" bupropion (Verified Allergy, Unknown, "CAUSED ME TO BANG MY HEAD ON THE WALL", 04/09/20) buspirone (Verified Allergy, Unknown, THROAT SWELLED, 04/09/20) cephalexin (Verified Allergy, Unknown, HIVES, 04/09/20) codeine (Verified Allergy, Unknown, pt tolerated morphine in past, 06/10/22) sulfamethoxazole (Verified Adverse Reaction, Unknown, Itching, 04/09/20) trimethoprim (Verified Adverse Reaction, Unknown, Itching, 04/09/20) Past Jescwfd-Gbqmrq-Yflfly Hx Patient Social History Marrital Status: single Employed/Student: unemployed Tobacco Use?: No Smoking Status: Never a Smoker Use of E-Cig and/or Vaping dev: No Substance use?: No Substance type: Marijuana Substance frequency: Rarely Alcohol Use?: No Pt feels they are or have been: Yes Immunizations Up To Date First/Initial COVID19 Vaccinat: NONE Second COVID19 Vaccination Sundar: NONE Tetanus Booster (TDap): Unknown Hepatitis A: No Hepatitis B: No PED Vaccines UTD: No Seasonal Allergies Seasonal Allergies: Yes Current Status Advance Directives: No Communicates: Verbally Primary Language: [place] Preferred Spoken Language: [place] Is interpretation needed?: No Sensory deficits: Vision impairment Implanted or Applied Medical D: None Past Medical History Surgeries: Gallbladder, Testicular Asthma Currently Using CPAP: No Currently Using BIPAP: No High Cholesterol, Hypertension, Palpitations Neuropathy Sexually Transmitted Disease: No HIV/AIDS: No Gastroesophageal Reflux, Diverticulosis, Esophagitis Arthritis Diabetes, Insulin dep Loss of Vision: Denies Hearing Impairment: Denies ADD/ADHD, Anxiety, Depression Blood Disorders: No Adverse Reaction/Blood Tranf: No (N/A) PMH: DM - diagnosed as Type 2 in his 20's - admitted for DKA 2011, 09/19/15 Hypertension Anxiety Hypogonadism (not currently treated) Obesity ADHA Chronic musculoskeletal pain PSH: Testicular surgery as for undescended testicles bilaterally Lap cholecystectomy 09/2014 Family Medical History Arthritis 19 MOTHER Congenital heart disease Diabetes mellitus 19 FATHER 19 MOTHER FH: brain aneurysm 19 FATHER (cause of - 09/13/2015) Glaucoma 19 FATHER Hypertension 19 FATHER 19 MOTHER Psychosocial problem 19 MOTHER (depression) No Pertinent Family Hx SOCIAL HISTORY: -SMOKES UP TO 1 PPD -VAPES NICOTINE DAILY ALSO -ETOH--OCCASIONAL USE -DRUGS--SMOKES MARIJUANA DAILY Review of Systems Constitutional: see HPI, malaise, weakness Gastrointestinal: abdominal pain, loss of appetite, nausea Physical Exam Physical Exam Vital Signs Vital Signs - First Documented 03/02/23 03/02/23 03/02/23 16:05 17:40 19:44 Temp 36.4 Pulse 120 Resp 20 B/P (MAP) 146/90 (108) Pulse Ox 99 O2 Delivery Room Air FiO2 21 Capillary Refill : Less Than 3 Seconds Height, Weight, BMI Height: 5'11.00" Weight: 324lbs. 0.0oz. 146.435161xd; 48.03 BMI Method:Stated General Appearance: No Apparent Distress, Chronically ill, Obese Eyes: Right Eye Normal Inspection, Right Eye PERRL HEENT: PERRL/EOMI, Normal ENT Inspection, Pharynx Normal, Moist Mucous Membranes Neck: Full Range of Motion, Normal Inspection, Non Tender Respiratory: Chest Non Tender, Lungs Clear, Normal Breath Sounds, No Accessory Muscle Use, No Respiratory Distress Cardiovascular: Regular Rate, Rhythm, No Edema, No Gallop, No JVD, No Murmur, Normal Peripheral Pulses Gastrointestinal: Normal Bowel Sounds, No Organomegaly, No Pulsatile Mass, Non Tender, Soft Back: Normal Inspection, No CVA Tenderness, No Vertebral Tenderness Extremity: Normal Capillary Refill, Normal Inspection, Normal Range of Motion, Non Tender, No Calf Tenderness, No Pedal Edema Neurologic/Psychiatric: Alert, Oriented x3, No Motor/Sensory Deficits, Normal Mood/Affect Skin: Normal Color, Warm/Dry Lymphatic: No Adenopathy Results Results/Procedures Labs Laboratory Tests 03/02/23 16:25 03/02/23 18:20 03/02/23 20:18 03/03/23 01:58 03/03/23 08:55 03/03/23 14:25 Patient resulted labs reviewed. Assessment/Plan Admission Diagnosis DKA Plan: Insulin drip ICU Admission Status: Inpatient Order (span 2 midnights) Reason for Inpatient Admission: DKA RADHA BRADSHAW DO Mar 03, 2023 05:52
[2023-03-03] MEDS: ENOXAPARIN 40 MG/0.4 ML (LOVENOX) SYR SC SCH ×2 (06:47→18:19)
--- NOTE | 2023-03-03 08:03 | Diagnostic Imaging Report ---
INDICATION: Chest pain, diabetic ketoacidosis, ICU care. TECHNIQUE: Single view chest 5:19 AM. CORRELATION STUDY: 06/11/2022 FINDINGS: Heart size is mildly enlarged but stable. Vasculature within normal limits. Prominent superior mediastinum, stable. The lungs are clear with no consolidating infiltrate. There is no significant effusion or pneumothorax. IMPRESSION: 1. Generally stable portable chest demonstrating no acute abnormality. Cardiac enlargement without failure. Dictated by: Dictated on workstation # [id number]
[2023-03-03 09:21] LABS: MAGNESIUM 2.6 MG/DL (1.6-2.4)
[2023-03-03 09:27] LABS: POTASSIUM 4.3 MMOL/L (3.6-5.0)
[2023-03-03 09:28] LABS: CALCIUM 8.4 MG/DL (8.5-10.1)
[2023-03-03] MEDS: MAGNESIUM 1 GM/100 ML IVPB 100 ML IV SCH (09:30)
[2023-03-03] MEDS: KCL 20 MEQ TAB (K-DUR) PO SCH (09:31)
[2023-03-03 09:32] LABS: CREATININE SERUM 1.27 MG/DL (0.60-1.30)
[2023-03-03] MEDS: SENNOSIDES 8.6 MG (SENOKOT) TAB PO SCH ×2 (09:32→20:44)
[2023-03-03] MEDS: DOCUSATE SODIUM 100 MG (COLACE) CAP PO SCH ×2 (09:32→20:44)
--- NOTE | 2023-03-03 09:48 | Tele-ICU Progress Note ---
Subjective Date Seen by a Provider: Mar 03, 2023 Time Seen by a Provider: 09:48 Subjective/Events-last exam (Tele-ICU Physician , Progress Note ) Service provided via interactive audio and video telecommunications E-CARE system to a patient admitted to ICU bed in [facility]. Patient is seen today due to persistent need of ICU care Available chart/ vitals / labs / Images reviewed Video assessment done using teleICU camera, rest of exam as per RN Discussed with RN Events overnight : Afebrile hemodynamically stable Respiratory - I/O = Drips: Pressors- no A/P DKA *Insulin drip, continue to monitor for resolution of acidosis, AG and electrolytes. Continue hydration. CATHIE/ CKD - dehydration - cont IVF - follow closely- improving Lines : , (Central Line Necessity Reviewed) Crain: OG: Nutrition: Analgesia: Anxiety/ delirium VTE Prophylaxis: lo 40 Stress Ulcer Prophylaxis: na Plans in collaboration with bedside consultants and IM MDs. Discussed with RN to reach out if any questions or concerns Case and care daily discussed on multidisciplinary rounds ( RN, PharmD, Driller'S Offsider , Respiratory Therapy, vessel slag worker ) A total of _10minutes of critical care time was devoted to this patient today, required to treat and/or prevent further deterioration of critical care condition ( as above ) . I am remotely monitoring this patient from another state. I am unable to do the bedside exam, and history/physical and pertinent information is taken from other notes in the computer and bedside staff. Sepsis Event Evaluation Height, Weight, BMI Height: 5'11.00" Weight: 324lbs. 0.0oz. 146.007194de; 48.03 BMI Method:Stated Exam Exam Patient acknowledged, consented, and participated in this virtual visit which was conducted using real time audio/video Vital Signs Date Time Temp Pulse Resp B/P (MAP) Pulse Ox O2 Delivery O2 Flow Rate FiO2 03/03/23 09:00 104 21 143/87 (105) 99 Room Air 03/03/23 08:15 98 Room Air 03/03/23 08:00 91 23 137/72 (93) 99 Room Air 03/03/23 07:55 36.1 03/03/23 07:00 101 03/03/23 07:00 97 20 116/69 (85) 98 Room Air 03/03/23 06:00 85 18 107/96 (101) 97 Room Air 03/03/23 05:00 93 16 108/69 (82) 99 Room Air 03/03/23 04:00 97 17 121/72 (88) 94 Room Air 03/03/23 04:00 99 Room Air 03/03/23 03:44 36.5 Room Air 03/03/23 03:00 102 21 140/70 (97) 94 Room Air 03/03/23 02:00 96 18 111/72 (88) 97 Room Air 03/03/23 01:00 94 19 134/70 (91) 96 Room Air 03/03/23 01:00 94 03/03/23 00:00 104 12 145/89 (107) 99 Room Air 03/03/23 00:00 36.9 Room Air 03/02/23 23:05 100 Room Air 03/02/23 23:00 105 23 154/95 (117) 99 Room Air 03/02/23 22:00 111 10 149/97 (116) 99 Room Air 03/02/23 21:00 115 141/78 (98) 100 Room Air 03/02/23 20:49 95 Room Air 03/02/23 20:00 113 129/67 (89) 99 Room Air 03/02/23 19:45 100 Room Air 03/02/23 19:44 36.6 118 99 21 03/02/23 19:30 36.7 03/02/23 19:05 Room Air 03/02/23 19:00 113 03/02/23 19:00 36.6 118 20 159/84 (109) 100 Room Air 03/02/23 18:00 120 19 143/106 (118) 99 Room Air 03/02/23 17:58 121 03/02/23 17:40 18 158/102 100 Room Air 03/02/23 16:05 36.4 120 20 146/90 (108) 99 I & O 03/03/23 07:00 Intake Total 5050 ml Balance 5050 ml Height & Weight Height: 5'11.00" Weight: 324lbs. 0.0oz. 146.212801jn; 48.03 BMI Method:Stated General Appearance: No Apparent Distress, WD/WN HEENT: PERRL/EOMI, Pharynx Normal, Other (Slightly dry tongue) Neck: Full Range of Motion, Normal Inspection, Non Tender, Supple Respiratory: Chest Non Tender, Lungs Clear, Normal Breath Sounds, No Accessory Muscle Use, No Respiratory Distress Cardiovascular: Regular Rate, Rhythm, No Edema, Normal Peripheral Pulses, Tachycardia Capillary Refill: Less Than 3 Seconds Gastrointestinal: normal bowel sounds, non tender, soft Extremity: Normal Capillary Refill, Normal Inspection, Normal Range of Motion, Non Tender, No Calf Tenderness, No Pedal Edema Neurologic/Psychiatric: Alert, No Motor/Sensory Deficits, Normal Mood/Affect Skin: Normal Color, Warm/Dry Results Lab Laboratory Tests 03/02/23 16:25 03/02/23 18:20 03/02/23 20:18 03/03/23 01:58 03/03/23 08:55 Assessment/Plan Assessment/Plan 1 JOSELYN ERICKSON MD Mar 03, 2023 09:48
[2023-03-03] MEDS ORDERED: IBUP-1780 PO (12:25)
[2023-03-03] MEDS ORDERED: INSU500I SQ (12:25)
[2023-03-03] MEDS ORDERED: BIOT10TA PO (12:25)
[2023-03-03] MEDS ORDERED: EMPA1TAB21 PO (12:25)
[2023-03-03] MEDS ORDERED: TIRZ5PEN SQ (12:25)
[2023-03-03] MEDS ORDERED: ATOR80TA76 PO (12:25)
[2023-03-03] MEDS ORDERED: MIRT-69 PO (12:25)
[2023-03-03 14:52] LABS: POTASSIUM 4.2 MMOL/L (3.6-5.0)
[2023-03-03 14:53] LABS: CALCIUM 8.6 MG/DL (8.5-10.1)
[2023-03-03 14:57] LABS: CREATININE SERUM 1.24 MG/DL (0.60-1.30)
[2023-03-03 21:05] LABS: POTASSIUM 3.9 MMOL/L (3.6-5.0)
[2023-03-03 21:06] LABS: CALCIUM 8.7 MG/DL (8.5-10.1)
[2023-03-03 21:11] LABS: CREATININE SERUM 1.14 MG/DL (0.60-1.30)
[2023-03-04] MEDS: POTASSIUM CL 10MEQ/50ML IVPB 50 ML IV SCH ×5 (00:56→08:08)
[2023-03-04] MEDS: PREGABALIN 150 MG (LYRICA) CAPSULE PO SCH ×2 (01:05→08:09)
[2023-03-04] MEDS: 1/2 NS IV SOLUTION 1,000 ML IV SCH ×2 (02:00→06:03)
[2023-03-04] MEDS: D5 1/2 NS 1000 ML IV SOLUTION 1,000 ML IV SCH ×2 (02:45→06:32)
[2023-03-04 02:55] LABS: POTASSIUM 3.8 MMOL/L (3.6-5.0)
[2023-03-04 03:00] LABS: CREATININE SERUM 0.98 MG/DL (0.60-1.30)
[2023-03-04 05:12] LABS: PHOSPHORUS 2.1 MG/DL (2.3-4.7)
[2023-03-04 05:13] LABS: MAGNESIUM 1.9 MG/DL (1.6-2.4)
[2023-03-04] MEDS: KCL 20 MEQ TAB (K-DUR) PO SCH (06:03)
[2023-03-04] MEDS: MAGNESIUM 1 GM/100 ML IVPB 100 ML IV SCH ×2 (06:03→06:20)
[2023-03-04] MEDS: ENOXAPARIN 40 MG/0.4 ML (LOVENOX) SYR SC SCH (06:20)
[2023-03-04 06:38] LABS: ALBUMIN 3.6 GM/DL (3.2-4.5)
[2023-03-04 06:41] LABS: TOTAL PROTEIN 6.1 GM/DL (6.4-8.2)
[2023-03-04 06:43] LABS: BILIRUBIN,TOTAL 0.3 MG/DL (0.1-1.0)
[2023-03-04 06:47] LABS: BILIRUBIN,DIRECT 0.1 MG/DL (0.0-0.3); BILIRUBIN,INDIRECT 0.2 MG/DL
[2023-03-04 06:50] LABS: BASOPHILS % (AUTO) 1 % (0-10); EOSINOPHILS # (AUTO) 0.1 10^3/uL (0.0-0.3); EOSINOPHILS % (AUTO) 2 % (0-10); HEMATOCRIT 41 % (40-54); HEMOGLOBIN 14.6 g/dL (13.3-17.7); LYMPHOCYTES # (AUTO) 2.2 10^3/uL (1.0-4.0); LYMPHOCYTES % (AUTO) 35 % (12-44); MEAN CORPUSCULAR HEMOGLOBIN 30 pg (25-34); MEAN CORPUSCULAR HGB CONC 36 g/dL (32-36); MEAN CORPUSCULAR VOLUME 84 fL (80-99); MEAN PLATELET VOLUME 11.1 fL (9.0-12.2); MONOCYTES # (AUTO) 0.6 10^3/uL (0.0-1.0); MONOCYTES % (AUTO) 9 % (0-12); NEUTROPHILS # (AUTO) 3.2 10^3/uL (1.8-7.8); NEUTROPHILS % (AUTO) 51 % (42-75); PLATELET COUNT 186 10^3/uL (130-400); WHITE BLOOD COUNT 6.2 10^3/uL (4.3-11.0)
--- NOTE | 2023-03-04 08:03 | Progress Note - Hospitalist ---
Subjective HPI/CC On Admission Date Seen by Provider: Mar 04, 2023 Time Seen by Provider: 11:00 Chief complaint: DKA HPI: This is a 42-year-old male clinic patient of [facility] who presented with DKA. He was placed on insulin drip and is feeling much better. Acidosis is improving. No other concerns. Objective Exam Vital Signs Vital Signs Date Time Temp Pulse Resp B/P (MAP) Pulse Ox O2 Delivery O2 Flow Rate FiO2 03/04/23 12:00 93 17 99 Room Air 03/04/23 11:38 36.1 03/04/23 10:00 158/89 (112) 03/02/23 19:44 21 Capillary Refill : Less Than 3 Seconds Results/Procedures Lab Laboratory Tests 03/03/23 20:37 03/04/23 02:36 03/04/23 06:45 Patient resulted labs reviewed. Assessment/Plan Critical Care Critically Ill Patient ZACH ROCHA DO Mar 04, 2023 08:03
[2023-03-04] MEDS: SENNOSIDES 8.6 MG (SENOKOT) TAB PO SCH (08:09)
[2023-03-04] MEDS: DOCUSATE SODIUM 100 MG (COLACE) CAP PO SCH (08:09)
--- NOTE | 2023-03-04 08:53 | Diagnostic Imaging Report ---
INDICATION: Chest pain COMPARISON: 03/03/2023 FINDINGS: Single frontal view of the chest demonstrates normal heart size and pulmonary vascularity. The lungs are well aerated and clear. No large pleural effusion or pneumothorax is seen. The visualized osseous structures show no acute abnormalities. IMPRESSION: 1. No acute cardiopulmonary process. Dictated by: Dictated on workstation # [id number]
[2023-03-04] MEDS ORDERED: NON-FORMULARY MEDICATION 1 EA EA (Cetirizine HCl 10 MG) PO PRN (10:30)
[2023-03-04] MEDS ORDERED: PREGABALIN 150 MG (LYRICA) CAPSULE PO PRN (10:30)
[2023-03-04] MEDS ORDERED: IBUPROFEN 800 MG (MOTRIN) TAB PO PRN (10:30)
[2023-03-04] MEDS ORDERED: TIRZEPATIDE 5 MG SQ SCH (10:30)
[2023-03-04] MEDS ORDERED: 1/2 NS IV SOLUTION 1,000 ML IV SCH (10:30)
[2023-03-04] MEDS ORDERED: DICYCLOMINE 10 MG (BENTYL) CAP PO PRN (10:45)
[2023-03-04] MEDS ORDERED: LORATADINE (CLARITIN) 10 MG TAB PO PRN (10:45)
--- NOTE | 2023-03-04 11:07 | Tele-ICU Progress Note ---
Subjective Date Seen by a Provider: Mar 04, 2023 Time Seen by a Provider: 11:06 Subjective/Events-last exam (Tele-ICU Physician , Progress Note ) Service provided via interactive audio and video telecommunications E-CARE system to a patient admitted to ICU bed in [facility]. Patient is seen today due to persistent need of ICU care Available chart/ vitals / labs / Images reviewed Video assessment done using teleICU camera, rest of exam as per RN Discussed with RN Events overnight : Afebrile hemodynamically stable Respiratory - I/O =+ Pressors- no A/P DKA *Insulin dripto stop today , starting long acting continue to monitor CATHIE/ CKD - dehydration - cont IVF - follow closely- improving VTE Prophylaxis: lo 40 Stress Ulcer Prophylaxis: na Plans in collaboration with bedside consultants and IM MDs. Discussed with RN to reach out if any questions or concerns Case and care daily discussed on multidisciplinary rounds ( RN, PharmD, Hospice Coordinator , Respiratory Therapy, foundry worker general ) A total of 5 minutes of critical care time was devoted to this patient today, required to treat and/or prevent further deterioration of critical care condition ( as above ) . I am remotely monitoring this patient from another state. I am unable to do the bedside exam, and history/physical and pertinent information is taken from other notes in the computer and bedside staff. Sepsis Event Evaluation Height, Weight, BMI Height: 5'11.00" Weight: 324lbs. 0.0oz. 146.366844lt; 48.54 BMI Method:Stated Exam Exam Patient acknowledged, consented, and participated in this virtual visit which was conducted using real time audio/video Vital Signs Date Time Temp Pulse Resp B/P (MAP) Pulse Ox O2 Delivery O2 Flow Rate FiO2 03/04/23 10:00 98 13 158/89 (112) 96 Room Air 03/04/23 09:00 93 14 165/99 (121) 99 Room Air 03/04/23 08:00 89 14 124/70 (88) 94 Room Air 03/04/23 07:59 98 Room Air 03/04/23 07:19 36.6 03/04/23 07:00 91 03/04/23 07:00 90 35 137/76 (96) 97 Room Air 03/04/23 06:00 99 14 140/89 (106) 97 Room Air 03/04/23 05:00 87 21 142/88 (106) 97 Room Air 03/04/23 04:26 99 Room Air 03/04/23 04:00 81 16 144/88 (106) 95 Room Air 03/04/23 03:00 85 17 128/62 (84) 95 Room Air 03/04/23 02:00 89 15 154/89 (110) 98 Room Air 03/04/23 01:00 92 22 159/89 (112) 96 Room Air 03/04/23 01:00 96 03/04/23 00:00 99 Room Air 03/04/23 00:00 87 19 138/63 (88) 96 Room Air 03/04/23 00:00 36.4 Room Air 03/03/23 22:00 93 24 123/79 (94) 97 Room Air 03/03/23 21:00 93 17 118/86 (97) 97 Room Air 03/03/23 20:00 99 Room Air 03/03/23 20:00 95 23 154/139 (144) 99 Room Air 03/03/23 19:00 91 03/03/23 19:00 91 21 151/86 (107) 99 Room Air 03/03/23 18:00 93 12 154/98 (116) 99 Room Air 03/03/23 17:00 92 21 180/106 (130) 99 Room Air 03/03/23 16:00 98 Room Air 03/03/23 16:00 36.6 Room Air 03/03/23 16:00 93 11 138/71 (93) 99 Room Air 03/03/23 15:00 93 17 160/81 (107) 98 Room Air 03/03/23 14:00 95 19 126/70 (88) 98 Room Air 03/03/23 13:00 100 12 170/88 (115) 99 Room Air 03/03/23 13:00 101 03/03/23 12:00 98 Room Air 03/03/23 12:00 102 15 132/77 (95) 100 Room Air 03/03/23 12:00 36.0 I & O 03/04/23 06:59 Intake Total 6820 ml Balance 6820 ml Height & Weight Height: 5'11.00" Weight: 324lbs. 0.0oz. 146.710516wu; 48.54 BMI Method:Stated General Appearance: No Apparent Distress, Chronically ill, Obese HEENT: PERRL/EOMI, Normal ENT Inspection, Pharynx Normal, Moist Mucous Membranes Neck: Full Range of Motion, Normal Inspection, Non Tender Respiratory: Chest Non Tender, Lungs Clear, Normal Breath Sounds, No Accessory Muscle Use, No Respiratory Distress Cardiovascular: Regular Rate, Rhythm, No Edema, No Gallop, No JVD, No Murmur, Normal Peripheral Pulses Capillary Refill: Less Than 3 Seconds Gastrointestinal: normal bowel sounds, non tender, soft Extremity: Normal Capillary Refill, Normal Inspection, Normal Range of Motion, Non Tender, No Calf Tenderness, No Pedal Edema Neurologic/Psychiatric: Alert, Oriented x3, No Motor/Sensory Deficits, Normal Mood/Affect Skin: Normal Color, Warm/Dry Lymphatic: No Adenopathy Results Lab Laboratory Tests 03/02/23 16:25 03/02/23 18:20 03/02/23 20:18 03/03/23 01:58 03/03/23 08:55 03/03/23 14:25 03/03/23 20:37 03/04/23 02:36 03/04/23 06:45 Assessment/Plan Assessment/Plan 1 JOSELYN ERICKSON MD Mar 04, 2023 11:07
[2023-03-04] MEDS: inSUlin (REGULAR) HUMAN 1 UNIT/0.01 ML (CHARGE PER UNIT) SC SCH ×2 (11:29→17:22)
--- NOTE | 2023-03-04 16:31 | Discharge Summary ---
Discharge Summary Hospital Course Was the Problem List Reviewed?: Yes Problems/Dx: (1) DKA (diabetic ketoacidosis) Qualifiers: Qualified Codes: E10.10 - Type 1 diabetes mellitus with ketoacidosis without coma Hospital Course Date of Admission: Mar 02, 2023 at 17:51 Admission Diagnosis : Family Physician/Provider: Kings Connolly DO Date of Discharge: 03/04/23 Discharge Diagnosis: [ ] Hospital Course: Patient had an uneventful hospital course after he was admitted for DKA. He was maintained on insulin drip in the ICU. DKA resolved he was back to his normal status and he was discharged in improved condition. Labs and Pending Lab Test: Laboratory Tests 03/03/23 16:43: Glucometer 192H 03/03/23 17:42: Glucometer 192H 03/03/23 18:51: Glucometer 177H 03/03/23 19:43: Glucometer 172H 03/03/23 20:37: Sodium Level 134L, Potassium Level 3.9, Chloride Level 110H, Carbon Dioxide Level 13L, Anion Gap 11, Blood Urea Nitrogen 10, Creatinine 1.14, Estimat Glomerular Filtration Rate 81, BUN/Creatinine Ratio 9, Glucose Level 179H, Calcium Level 8.7 03/03/23 20:42: Glucometer 170H 03/03/23 21:45: Glucometer 144H 03/03/23 22:51: Glucometer 194H 03/03/23 23:43: Glucometer 201H 03/04/23 01:00: Glucometer 186H 03/04/23 02:03: Glucometer 192H 03/04/23 02:36: Sodium Level 135, Potassium Level 3.8, Chloride Level 111H, Carbon Dioxide Level 15L, Anion Gap 9, Blood Urea Nitrogen 11, Creatinine 0.98, Estimat Glomerular Filtration Rate 98, BUN/Creatinine Ratio 11, Glucose Level 171H, Calcium Level 9.0, Phosphorus Level 2.1L, Magnesium Level 1.9, Total Bilirubin 0.3, Direct Bilirubin 0.1, Indirect Bilirubin 0.2, Aspartate Amino Transf (AST/SGOT) 63H, Alanine Aminotransferase (ALT/SGPT) 63H, Alkaline Phosphatase 73, Total Protein 6.1L, Albumin 3.6 03/04/23 03:39: Glucometer 171H 03/04/23 04:46: Glucometer 149H 03/04/23 05:53: Glucometer 160H 03/04/23 06:39: Glucometer 149H 03/04/23 06:45: White Blood Count 6.2, Red Blood Count 4.88, Hemoglobin 14.6#, Hematocrit 41, Mean Corpuscular Volume 84, Mean Corpuscular Hemoglobin 30, Mean Corpuscular Hemoglobin Concent 36, Red Cell Distribution Width 13.0, Platelet Count 186, Mean Platelet Volume 11.1, Immature Granulocyte % (Auto) 2, Neutrophils (%) (Auto) 51, Lymphocytes (%) (Auto) 35, Monocytes (%) (Auto) 9, Eosinophils (%) (Auto) 2, Basophils (%) (Auto) 1, Neutrophils # (Auto) 3.2, Lymphocytes # (Auto) 2.2, Monocytes # (Auto) 0.6, Eosinophils # (Auto) 0.1, Basophils # (Auto) 0.0, Immature Granulocyte # (Auto) 0.1 03/04/23 07:44: Glucometer 149H 03/04/23 08:42: Glucometer 135H 03/04/23 09:47: Glucometer 130H 03/04/23 10:47: Glucometer 169H 03/04/23 13:02: Glucometer 219H 03/04/23 16:09: Glucometer 226H [facility] 03/02/23 MRSA Screen - Final, Complete No growth Home Meds Active Reported Biotin 10 Mg Tablet 10 Mg PO DAILY Atorvastatin Calcium 80 Mg Tablet 80 Mg PO DAILY Ibuprofen 800 Mg Tablet 800 Mg PO Q8H PRN Synjardy Xr 12.5-1,000 mg Tab (Empagliflozin/Metformin HCl) 12.5 Mg-1,000 Mg Tab.bp.24h 1 Ea PO DAILY Humulin R U-500 Kwikpen (Insulin Regular, Human) 500/Ml (3) Insuln.pen 225 Unit SQ AC Mirtazapine 30 Mg Tablet 30 Mg PO HS Mounjaro (Tirzepatide) 5 Mg/0.5 Ml Pen.injctr 5 Mg SQ SUN Tizanidine HCl 4 Mg Tablet 4 Mg PO TID PRN Dicyclomine HCl 20 Mg Tablet 20 Mg PO QID PRN Lisinopril 40 Mg Tablet 40 Mg PO DAILY LAST FILLED 07-31-2022 #90/90 DAY SUPPLY Cetirizine HCl 10 Mg Tablet 10 Mg PO DAILY PRN Aspirin EC (Aspirin) 81 Mg Tablet. 81 Mg PO DAILY Hydrochlorothiazide 25 Mg Tablet 25 Mg PO DAILY PRN Pregabalin 150 Mg Capsule 150 Mg PO BID PRN Pantoprazole Sodium 40 Mg Tablet.dr 40 Mg PO DAILY Assessment/Pt Instructions PCP in 1 week Discharge Planning: <30 minutes discharge planning Discharge Instructions Discharge Diet: ADA Diet Discharge Physical Examination Vital Signs Vital Signs Date Time Temp Pulse Resp B/P (MAP) Pulse Ox O2 Delivery O2 Flow Rate FiO2 03/04/23 12:00 93 17 99 Room Air 03/04/23 11:38 36.1 03/04/23 10:00 158/89 (112) 03/02/23 19:44 21 General Appearance: No Apparent Distress, WD/WN, Chronically ill Allergies: Coded Allergies: sertraline (Verified Allergy, Severe, RASH, SWELLING, 04/09/20) "FELT LOOPY" bupropion (Verified Allergy, Unknown, "CAUSED ME TO BANG MY HEAD ON THE WALL", 04/09/20) buspirone (Verified Allergy, Unknown, THROAT SWELLED, 04/09/20) cephalexin (Verified Allergy, Unknown, HIVES, 04/09/20) codeine (Verified Allergy, Unknown, pt tolerated morphine in past, 06/10/22) sulfamethoxazole (Verified Adverse Reaction, Unknown, Itching, 04/09/20) trimethoprim (Verified Adverse Reaction, Unknown, Itching, 04/09/20) Discharge Summary Date of Admission Mar 02, 2023 at 17:51 Date of Discharge Discharge Date: Mar 04, 2023 Admission Diagnosis DKA Plan: Insulin drip [facility] ZACH ROCHA DO Mar 04, 2023 16:31
[2023-03-04 18:12] VITALS: BP 158/89
[2023-03-04] MEDS ORDERED: PREGABALIN 150 MG (LYRICA) CAPSULE PO SCH (21:00)
[2023-03-04] MEDS ORDERED: MIRTAZAPINE 15 MG (REMERON) TAB PO SCH (21:00)
[2023-03-05] MEDS ORDERED: PANTOPRAZOLE 40 MG (PROTONIX) TAB PO SCH (09:00)
[2023-03-05] MEDS ORDERED: ASPIRIN E.C. 81 MG (ECOTRIN) TAB PO SCH (09:00)
[2023-03-05] MEDS ORDERED: EMPAGLIFLOZIN PO SCH (09:00)
[2023-03-05] MEDS ORDERED: METFORMIN HCL PO SCH (09:00)
[2023-03-05] MEDS ORDERED: BIOTIN 10 MG PO SCH (09:00)
[2023-03-05] MEDS ORDERED: [UNRECOGNIZED DRUG - OTHER] PO SCH (09:00)
[2023-03-05] MEDS ORDERED: lisINopril 40 MG (PRINIVIL) TABLET PO SCH (09:00)
== END 2023-03-04 18:10 | disposition home or self-care (01) | DRG 638 ==
LOC: EDUNIT# 15:45 → ER 15:46 → ICU 17:51 → 4TH 03-04 13:15
PROVIDERS: ADMIT Internal Medicine; ATTEND Internal Medicine
DX: E10.10 Type 1 diabetes mellitus with ketoacidosis without coma (principal); N17.9 Acute kidney failure, unspecified; Z68.42 Body mass index [BMI] 45.0-49.9, adult; N18.9 Chronic kidney disease, unspecified; E86.0 Dehydration; E78.00 Pure hypercholesterolemia, unspecified; I12.9 Hypertensive chronic kidney disease with stage 1 through stage 4 chronic kidney disease, or unspecified chronic kidney disease; K21.9 Gastro-esophageal reflux disease without esophagitis; E10.40 Type 1 diabetes mellitus with diabetic neuropathy, unspecified; F90.9 Attention-deficit hyperactivity disorder, unspecified type; F41.9 Anxiety disorder, unspecified; F32.A Depression, unspecified; E66.9 Obesity, unspecified; F17.210 Nicotine dependence, cigarettes, uncomplicated; Z79.82 Long term (current) use of aspirin; Z79.4 Long term (current) use of insulin; Z79.899 Other long term (current) drug therapy; E10.22 Type 1 diabetes mellitus with diabetic chronic kidney disease
CPT/HCPCS: 36415; 71045; 80048; 80053; 80076; 81000; 82010; 82805; 82947; 83690; 83735; 84100; 85025; 87081; 94760

== ENCOUNTER 2023-03-07 19:19 | Emergency (ER) | payer MEDICARE, MEDICAID ==
[~2023-03-07] VITALS: Ht 177 cm; Wt 154.0 kg
[~2023-03-07 19:19] MED LIST changes: +ATOR80TA76 PO; +BIOT10TA PO; +EMPA1TAB21 PO; +INSU500I SQ; +MIRT-69 PO; +TIRZ5PEN SQ
--- NOTE | 2023-03-07 19:36 | ED General ---
General Chief Complaint: Eye Problems Stated Complaint: FLUCTUATING VISION/HEADACHE Source of Information: Patient, Old Records History of Present Illness Date Seen by Provider: Mar 07, 2023 Time Seen by Provider: 19:30 Initial Comments PT ARRIVES VIA POV FROM HOME PT IS DIABETIC, JUST ADMITTED THIS WEEK FOR DKA--03/02-03/04/23 STATES SINCE WEDNESDAY NIGHT 03/05/23, HE HAS HAD "FLUCTUATING VISION" AND SLIGHT HEADACHE HE STATES THE HEADACHE IS DULL AND IN THE MIDDLE OF HIS FOREHEAD AND COMES AND GOES. HE DOES NOT HAVE A HEADACHE NOW HE STATES THAT HIS VISION IS "FUZZY AT TIMES" AND IS NORMAL NOW. HE HAS CHECKED HIS BLOOD SUGAR TODAY AND IT HAS BEEN 70 - 226. HE LAST ATE AROUND 1730--3 JESSEE MOLINA WENT TO [facility] [place] [facility] IN [facility]INIC AT 1800 --DROVE HIMSELF THERE. HE STATES "THEY INSISTED THAT I COME OUT HER IMMEDIATELY. AND THEY WOULDN'T LET ME DRIVE MYSELF, SO I CALLED SOMEONE TO PICK ME UP AND THEN I WENT HOME AND THEN DROVE MYSELF HERE" "I'M PERFECTLY FINE TO DRIVE" "THEY INSISTED THAT I COME HERE--IT WASN'T MY CHOICE" HE STATES "THIS HAS HAPPENED TO ME A COUPLE OF TIMES BEFORE AND IT HAS TAKEN A MONTH TO GO AWAY" HE SEES DR. SINGH FOR EYE CARE, HAS NOT BEEN TO HIM FOR AT LEAST 4 MONTHS. PT WITH A MULTITUDE OF VISITS HERE Allergies and Home Medications Allergies Coded Allergies: sertraline (Verified Allergy, Severe, RASH, SWELLING, 04/09/20) "FELT LOOPY" albuterol (Verified Allergy, Unknown, 03/05/23) bupropion (Verified Allergy, Unknown, "CAUSED ME TO BANG MY HEAD ON THE WALL", 04/09/20) buspirone (Verified Allergy, Unknown, THROAT SWELLED, 04/09/20) cephalexin (Verified Allergy, Unknown, HIVES, 04/09/20) clindamycin (Verified Allergy, Unknown, 03/05/23) codeine (Verified Allergy, Unknown, pt tolerated morphine in past, 06/10/22) semaglutide (Verified Allergy, Unknown, 03/05/23) sulfamethoxazole (Verified Adverse Reaction, Unknown, Itching, 04/09/20) trimethoprim (Verified Adverse Reaction, Unknown, Itching, 04/09/20) Patient Home Medication List Aspirin (Aspirin EC) 81 Mg Tablet.dr, 81 MG PO DAILY, (Reported) Entered as Reported by: SABAS SILVA on 09/29/21 141 Atorvastatin Calcium (Atorvastatin Calcium) 80 Mg Tablet, 80 MG PO DAILY, (Reported) Entered as Reported by: ZACHARY HATCH on 03/03/23 1225 Biotin (Biotin) 10 Mg Tablet, 10 MG PO DAILY, (Reported) Entered as Reported by: ZACHARY HATCH on 03/03/23 122 Cetirizine HCl (Cetirizine HCl) 10 Mg Tablet, 10 MG PO DAILY PRN for ALLERGIES, (Reported) Entered as Reported by: SABAS SILVA on 09/29/21 141 Dicyclomine HCl (Dicyclomine HCl) 20 Mg Tablet, 20 MG PO QID PRN for GI SPASMS, (Reported) Entered as Reported by: ZACHARY HATCH on 06/11/22 1055 Empagliflozin/Metformin HCl (Synjardy Xr 12.5-1,000 mg Tab) 12.5 Mg-1,000 Mg Tab.bp.24h, 1 EA PO DAILY, (Reported) Entered as Reported by: ZACHARY HATCH on 03/03/23 122 Hydrochlorothiazide (Hydrochlorothiazide) 25 Mg Tablet, 25 MG PO DAILY PRN for FLUID RETENTION, (Reported) Entered as Reported by: SABAS SILVA on 09/29/21 141 Ibuprofen (Ibuprofen) 800 Mg Tablet, 800 MG PO Q8H PRN for PAIN-MILD (1-4), (Reported) Entered as Reported by: ZACHARY HATCH on 03/03/23 1225 Insulin Regular, Human (Humulin R U-500 Kwikpen) 500/Ml (3) Insuln.pen, 225 UNIT SQ AC, (Reported) Entered as Reported by: ZACHARY HATCH on 03/03/23 1225 Lisinopril (Lisinopril) 40 Mg Tablet, 40 MG PO DAILY, (Reported) Entered as Reported by: ZACHARY HATCH on 06/11/22 1055 Mirtazapine (Mirtazapine) 30 Mg Tablet, 30 MG PO HS, (Reported) Entered as Reported by: ZACHARY HATCH on 03/03/23 1225 Pantoprazole Sodium (Pantoprazole Sodium) 40 Mg Tablet.dr, 40 MG PO DAILY, (Reported) Entered as Reported by: TRISTON BETH on 04/09/20 1431 Pregabalin (Pregabalin) 150 Mg Capsule, 150 MG PO BID PRN for NERVE PAIN, (Reported) Entered as Reported by: ZACHARY HATCH on 12/04/20 1538 Tirzepatide (Mounjaro) 5 Mg/0.5 Ml Pen.injctr, 5 MG SQ SUN, (Reported) Entered as Reported by: ZACHARY HATCH on 03/03/23 1225 Tizanidine HCl (Tizanidine HCl) 4 Mg Tablet, 4 MG PO TID PRN for MUSCLE SPASMS, (Reported) Entered as Reported by: ZACHARY HATCH on 06/11/22 1055 Discontinued Medications Albuterol Sulfate (Proair Hfa) 90 Mcg Hfa.aer.ad, 0 GM IH RTQ4HR PRN for SHORTNESS OF BREATH Discontinued Reason: No Longer Taking Prescribed by: ZACH ROCHA on 06/14/22 1217 Amlodipine Besylate (Amlodipine Besylate) 5 Mg Tablet, 5 MG PO DAILY, (Reported) Discontinued Reason: No Longer Taking Entered as Reported by: ZACHARY HATCH on 06/11/22 1055 Chlorhexidine Gluconate (Chlorhexidine Gluconate) 0.12 % Mouthwash, 15 ML PO UD PRN for ORAL HEALTH, (Reported) Discontinued Reason: No Longer Taking Entered as Reported by: SABAS SILVA on 09/29/21 1412 Fluticasone Propionate (Fluticasone Propionate) 16 Gm [place].susp, 1 SPRAY NSEACH DAILY PRN for ALLERGIES, (Reported) Discontinued Reason: No Longer Taking Entered as Reported by: SABAS SILVA on 09/29/21 1412 Hydroxyzine HCl (Hydroxyzine HCl) 50 Mg Tablet, 50 MG PO TID PRN for ANXIETY, (Reported) Discontinued Reason: No Longer Taking Entered as Reported by: ZACHARY HATCH on 06/11/22 1055 Insulin Regular, Human (Humulin R U-500 Kwikpen) 500/Ml (3) Insuln.pen, 200 UNITS SC AC Discontinued Reason: Duplicate Order Prescribed by: ZACH ROCHA on 06/14/22 1217 Ondansetron (Ondansetron Odt) 8 Mg Tab.rapdis, 8 MG PO Q8H PRN for NAUSEA/VOMITING-1ST LINE, (Reported) Discontinued Reason: No Longer Taking Entered as Reported by: ZACHARY HATCH on 06/11/22 1129 Potassium Chloride (Potassium Chloride) 10 Meq Tab.er.prt, 10 MEQ PO BID Discontinued Reason: No Longer Taking Prescribed by: ZACH ROCHA on 06/14/22 1218 Sitagliptin Phosphate (Januvia) 100 Mg Tablet, 100 MG PO DAILY, (Reported) Discontinued Reason: No Longer Taking Entered as Reported by: ZACHARY HATCH on 06/11/22 1055 Sucralfate (Sucralfate) 1 Gram Tablet, 1 GM PO ACHS, (Reported) Discontinued Reason: No Longer Taking Entered as Reported by: ZACHARY HATCH on 06/11/22 1129 Past Dqweqyh-Lqmyxo-Ljvfrm Hx Immunizations Up To Date Tetanus Booster (TDap): More than 5yrs PED Vaccines UTD: No First/Initial COVID19 Vaccinat: NONE Second COVID19 Vaccination Sundar: NONE Third COVID19 Vaccination Date: NONE Seasonal Allergies Seasonal Allergies: Yes Past Medical History Surgery/Hospitalization HX: testicular, cholecystectomy hypogonadism, asthma, high cholesterol, htn, gerd, neuropathy, obesity, iddm, adhd, anx/dep, Surgeries: Yes (HYPOGONADISM SURGERY INFANT,/UNDESCENDED TESTICLE SURGERY; ENDOSCOPIES) Gallbladder, Testicular Respiratory: Yes Asthma Currently Using CPAP: No Currently Using BIPAP: No Cardiac: Yes High Cholesterol, Hypertension, Palpitations Neurological: Yes Neuropathy Reproductive Disorders: Yes (HYPOGONADISM sx as an infant) Sexually Transmitted Disease: No HIV/AIDS: No Genitourinary: No Gastrointestinal: Yes (ENDOSCOPIES) Gastroesophageal Reflux, Diverticulosis, Esophagitis Musculoskeletal: Yes Arthritis Endocrine: Yes (MORBID OBESITY; DM TYPE 2 (INSULIN AND PO)-LONG HISTORY OF NON- COMPLIANCE) Diabetes, Insulin dep HEENT: Yes (GLASSES) Loss of Vision: Denies Hearing Impairment: Denies Cancer: No Psychosocial: Yes ADD/ADHD, Anxiety, Depression Integumentary: No Blood Disorders: No Adverse Reaction/Blood Tranf: No (N/A) Family Medical History Arthritis 19 MOTHER Congenital heart disease Diabetes mellitus 19 FATHER 19 MOTHER FH: brain aneurysm 19 FATHER (cause of - 09/13/2015) Glaucoma 19 FATHER Hypertension 19 FATHER 19 MOTHER Psychosocial problem 19 MOTHER (depression) No Pertinent Family Hx SOCIAL HISTORY: -SMOKES UP TO 1 PPD -VAPES NICOTINE DAILY ALSO -ETOH--OCCASIONAL USE -DRUGS--SMOKES MARIJUANA DAILY Physical Exam Vital Signs Vital Signs - First Documented 03/07/23 19:33 Temp 37.3 Pulse 114 Resp 15 B/P (MAP) 152/111 (125) Pulse Ox 95 O2 Delivery Room Air Capillary Refill : Height, Weight, BMI Height: 5'11.00" Weight: 324lbs. 0.0oz. 146.256007zz; 48.54 BMI Method:Stated Progress/Results/Core Measures Suspected Sepsis SIRS Temperature: Pulse: Respiratory Rate: Laboratory Tests 03/07/23 19:44: White Blood Count 8.1 Blood Pressure / Mean: Laboratory Tests 03/07/23 19:44: Creatinine 1.01, Platelet Count 190, Total Bilirubin 0.5 Results/Orders Lab Results Laboratory Tests Test 03/07/23 19:44 03/07/23 19:51 Range/Units White Blood Count 8.1 4.3-11.0 10^3/uL Red Blood Count 5.30 4.30-5.52 10^6/uL Hemoglobin 16.0 13.3-17.7 g/dL Hematocrit 45 40-54 % Mean Corpuscular Volume 86 80-99 fL Mean Corpuscular Hemoglobin 30 25-34 pg Mean Corpuscular Hemoglobin Concent 35 32-36 g/dL Red Cell Distribution Width 13.4 10.0-14.5 % Platelet Count 190 130-400 10^3/uL Mean Platelet Volume 10.8 9.0-12.2 fL Immature Granulocyte % (Auto) 2 % Neutrophils (%) (Auto) 55 42-75 % Lymphocytes (%) (Auto) 32 12-44 % Monocytes (%) (Auto) 9 0-12 % Eosinophils (%) (Auto) 2 0-10 % Basophils (%) (Auto) 1 0-10 % Neutrophils # (Auto) 4.5 1.8-7.8 10^3/uL Lymphocytes # (Auto) 2.6 1.0-4.0 10^3/uL Monocytes # (Auto) 0.7 0.0-1.0 10^3/uL Eosinophils # (Auto) 0.1 0.0-0.3 10^3/uL Basophils # (Auto) 0.1 0.0-0.1 10^3/uL Immature Granulocyte # (Auto) 0.2 H 0.0-0.1 10^3/uL Urine Color YELLOW Urine Clarity CLEAR Urine pH 5.5 5-9 Urine Specific [place] 1.015 L 1.016-1.022 Urine Protein NEGATIVE NEGATIVE Urine Glucose (UA) 3+ H NEGATIVE Urine Ketones TRACE H NEGATIVE Urine Nitrite NEGATIVE NEGATIVE Urine Bilirubin NEGATIVE NEGATIVE Urine Urobilinogen 0.2 < = 1.0 MG/DL Urine Leukocyte Esterase NEGATIVE NEGATIVE Urine RBC (Auto) NEGATIVE NEGATIVE Urine RBC 0-2 /HPF Urine WBC 0-2 /HPF Urine Squamous Epithelial Cells 5-10 /HPF Urine Crystals PRESENT H /LPF Urine Amorphous Sediment FEW LIDNA URATES H /LPF Urine Bacteria TRACE /HPF Urine Casts NONE /LPF Urine Mucus SMALL H /LPF Urine Culture Indicated NO Sodium Level 142 135-145 MMOL/L Potassium Level 4.2 3.6-5.0 MMOL/L Chloride Level 108 H 98-107 MMOL/L Carbon Dioxide Level 21 21-32 MMOL/L Anion Gap 13 5-14 MMOL/L Blood Urea Nitrogen 13 7-18 MG/DL Creatinine 1.01 0.60-1.30 MG/DL Estimat Glomerular Filtration Rate 94 BUN/Creatinine Ratio 13 Glucose Level 185 H 70-105 MG/DL Calcium Level 9.8 8.5-10.1 MG/DL Corrected Calcium 9.7 8.5-10.1 MG/DL Total Bilirubin 0.5 0.1-1.0 MG/DL Aspartate Amino Transf (AST/SGOT) 57 H 5-34 U/L Alanine Aminotransferase (ALT/SGPT) 78 H 0-55 U/L Alkaline Phosphatase 83 40-136 U/L Total Protein 6.9 6.4-8.2 GM/DL Albumin 4.1 3.2-4.5 GM/DL Urine Opiates Screen NEGATIVE NEGATIVE Urine Oxycodone Screen NEGATIVE NEGATIVE Urine Methadone Screen NEGATIVE NEGATIVE Urine Propoxyphene Screen NEGATIVE NEGATIVE Urine Barbiturates Screen NEGATIVE NEGATIVE Ur Tricyclic Antidepressants Screen NEGATIVE NEGATIVE Urine Phencyclidine Screen NEGATIVE NEGATIVE Urine Amphetamines Screen NEGATIVE NEGATIVE Urine Methamphetamines Screen NEGATIVE NEGATIVE Urine Benzodiazepines Screen NEGATIVE NEGATIVE Urine Cocaine Screen NEGATIVE NEGATIVE Urine Cannabinoids Screen NEGATIVE NEGATIVE Glucometer 193 H 70-110 MG/DL My Orders Orders - TRISTEN TUCKER DO Accucheck Stat ONCE (03/07/23 19:33) Ed Iv/Invasive Line Start (03/07/23 19:33) Monitor-Rhythm Ecg Trace Only (03/07/23 19:33) Alcohol (03/07/23 19:33) Cbc With Automated Diff (03/07/23 19:33) Comprehensive Metabolic Panel (03/07/23 19:33) Drug Screen Stat (Urine) (03/07/23 19:33) Ua Culture If Indicated (03/07/23 19:33) Ct Head Wo-R/O Stroke (03/07/23 19:36) Vital Signs/I&O 03/07/23 19:33 Temp 37.3 Pulse 114 Resp 15 B/P (MAP) 152/111 (125) Pulse Ox 95 O2 Delivery Room Air Capillary Refill : Departure Impression Primary Impression: Diabetes mellitus, insulin dependent (IDDM), uncontrolled Additional Impressions: Transient vision disturbance of both eyes TRANSIENT HEADACHE Disposition: 01 HOME, SELF-CARE Condition: Stable Departure-Patient Inst. Decision time for Depature: 20:29 Referrals: ZACHARY LEVIN DO (PCP/Family) Primary Care Physician Patient Instructions: Carb counting for adults with diabetes Add. Discharge Instructions: FOLLOW HIGH PROTEIN, LOW CARB DIET CONTINUE YOUR MEDICATIONS PRESCRIBED DO NOT DRIVE IF YOU ARE HAVING BLURRY OR DOUBLE VISION FOLLOW UP WITH [facility] THIS WEEK FOR FOLLOW UP ON BLOOD SUGAR FOLLOW UP WITH DR. SINGH THIS WEEK TO CHECK YOUR EYES All discharge instructions reviewed with patient and/or family. Voiced understanding. TRISTEN TUCKER DO Mar 07, 2023 19:36
[2023-03-07 20:00] LABS: BASOPHILS # (AUTO) 0.1 10^3/uL (0.0-0.1); BASOPHILS % (AUTO) 1 % (0-10); BILIRUBIN,URINE NEGATIVE (NEGATIVE); CLARITY,URINE CLEAR; COLOR,URINE YELLOW; EOSINOPHILS # (AUTO) 0.1 10^3/uL (0.0-0.3); EOSINOPHILS % (AUTO) 2 % (0-10); GLUCOSE, URINE (UA) 3+ (NEGATIVE); HEMATOCRIT 45 % (40-54); KETONES,URINE TRACE (NEGATIVE); LEUKOCYTE ESTERASE ,URINE NEGATIVE (NEGATIVE); LYMPHOCYTES # (AUTO) 2.6 10^3/uL (1.0-4.0); LYMPHOCYTES % (AUTO) 32 % (12-44); MEAN CORPUSCULAR HEMOGLOBIN 30 pg (25-34); MEAN CORPUSCULAR HGB CONC 35 g/dL (32-36); MEAN CORPUSCULAR VOLUME 86 fL (80-99); MEAN PLATELET VOLUME 10.8 fL (9.0-12.2); MONOCYTES # (AUTO) 0.7 10^3/uL (0.0-1.0); MONOCYTES % (AUTO) 9 % (0-12); NEUTROPHILS # (AUTO) 4.5 10^3/uL (1.8-7.8); NEUTROPHILS % (AUTO) 55 % (42-75); NITRITE,URINE NEGATIVE (NEGATIVE); PH,URINE 5.5 (5-9); PLATELET COUNT 190 10^3/uL (130-400); PROTEIN,URINE NEGATIVE (NEGATIVE); WHITE BLOOD COUNT 8.1 10^3/uL (4.3-11.0)
[2023-03-07 20:08] LABS: AMORPHOUS SEDIMENT,UR FEW AMOR URATES /LPF; BACTERIA,URINE TRACE /HPF; RBC,URINE 0-2 /HPF; WBC,URINE 0-2 /HPF
--- NOTE | 2023-03-07 20:10 | Diagnostic Imaging Report ---
PROCEDURE: CT head wo r/o stroke. TECHNIQUE: Multiple contiguous axial images were obtained through the brain without the use of intravenous contrast. Auto Exposure Controls were utilized during the CT exam to meet ALARA standards for radiation dose reduction. INDICATION: 42-year-old male, fuzzy vision x2 days. Similar episode happened a few years ago, resolved. CORRELATION: 05/18/2014 FINDINGS: There is no midline shift or mass effect. The ventricles and sulci are unremarkable. No evidence for acute intracranial hemorrhage, abnormal extra-axial fluid collections or cerebral edema is present. The basilar cisterns are unremarkable. The bony calvarium is intact. However, does have a somewhat thickened and heterogeneous, mottled appearance. The visualized paranasal sinuses and mastoid air cells are clear. Bilateral globes symmetric and unremarkable. IMPRESSION: Negative appearing noncontrast CT of the head. Dictated by: Dictated on workstation # [id number]
[2023-03-07 20:14] LABS: AMPHETAMINE SCREEN, URINE NEGATIVE (NEGATIVE); BARBITURATE SCREEN URINE NEGATIVE (NEGATIVE); BENZODIAZEPINES SCREEN URINE NEGATIVE (NEGATIVE); CANNABINOID SCREEN, URINE NEGATIVE (NEGATIVE); COCAINE SCREEN URINE NEGATIVE (NEGATIVE); METHADONE STAT NEGATIVE (NEGATIVE); OPIATE SCREEN URINE NEGATIVE (NEGATIVE); OXYCODONE STAT NEGATIVE (NEGATIVE); PROPOXYPHENE STAT NEGATIVE (NEGATIVE); TRICYCLIC ANTIDEPRESSANTS SCRE NEGATIVE (NEGATIVE)
[2023-03-07 20:23] LABS: ALANINE AMINOTRANSFERASE 78 U/L (0-55); ALBUMIN 4.1 GM/DL (3.2-4.5); ALKALINE PHOSPHATASE 83 U/L (40-136); BILIRUBIN,TOTAL 0.5 MG/DL (0.1-1.0); BUN/CREATININE RATIO 13; CALCIUM 9.8 MG/DL (8.5-10.1); CARBON DIOXIDE 21 MMOL/L (21-32); CHLORIDE 108 MMOL/L (98-107); CREATININE SERUM 1.01 MG/DL (0.60-1.30); GFR ESTIMATED 94; GLUCOSE 185 MG/DL (70-105); POTASSIUM 4.2 MMOL/L (3.6-5.0); SODIUM 142 MMOL/L (135-145); TOTAL PROTEIN 6.9 GM/DL (6.4-8.2)
[2023-03-07 20:52] VITALS: BP 128/94
== END 2023-03-07 20:52 | disposition home or self-care (01) ==
LOC: EDUNIT# 19:19 → ER 19:21
DX: E11.65 Type 2 diabetes mellitus with hyperglycemia (principal); E11.40 Type 2 diabetes mellitus with diabetic neuropathy, unspecified; E66.01 Morbid (severe) obesity due to excess calories; F17.210 Nicotine dependence, cigarettes, uncomplicated; F17.290 Nicotine dependence, other tobacco product, uncomplicated; Z68.42 Body mass index [BMI] 45.0-49.9, adult; Z79.4 Long term (current) use of insulin; Z28.310 Unvaccinated for COVID-19
CPT/HCPCS: 36415; 70450; 80053; 80306; 80320; 81000; 82947; 85025; 93041

== ENCOUNTER 2023-05-16 23:04 | Emergency (ER) | payer MEDICARE, MEDICAID ==
[2023-05-16 23:40] LABS: BASOPHILS % (AUTO) 1 % (0-10); EOSINOPHILS # (AUTO) 0.1 10^3/uL (0.0-0.3); EOSINOPHILS % (AUTO) 2 % (0-10); HEMATOCRIT 43 % (40-54); HEMOGLOBIN 14.9 g/dL (13.3-17.7); LYMPHOCYTES # (AUTO) 1.9 10^3/uL (1.0-4.0); LYMPHOCYTES % (AUTO) 31 % (12-44); MEAN CORPUSCULAR HEMOGLOBIN 30 pg (25-34); MEAN CORPUSCULAR HGB CONC 35 g/dL (32-36); MEAN CORPUSCULAR VOLUME 85 fL (80-99); MEAN PLATELET VOLUME 11.4 fL (9.0-12.2); MONOCYTES # (AUTO) 0.6 10^3/uL (0.0-1.0); MONOCYTES % (AUTO) 9 % (0-12); NEUTROPHILS # (AUTO) 3.6 10^3/uL (1.8-7.8); NEUTROPHILS % (AUTO) 57 % (42-75); PLATELET COUNT 179 10^3/uL (130-400); WHITE BLOOD COUNT 6.3 10^3/uL (4.3-11.0)
[2023-05-16 23:52] LABS: ALBUMIN 3.9 GM/DL (3.2-4.5); CHLORIDE 105 MMOL/L (98-107); POTASSIUM 4.5 MMOL/L (3.6-5.0); SODIUM 137 MMOL/L (135-145)
[2023-05-16 23:54] LABS: AMYLASE 50 U/L (25-125); CALCIUM 9.5 MG/DL (8.5-10.1)
[2023-05-16 23:55] LABS: GLUCOSE 400 MG/DL (70-105); TOTAL PROTEIN 6.5 GM/DL (6.4-8.2)
[2023-05-16 23:56] LABS: CARBON DIOXIDE 20 MMOL/L (21-32)
[2023-05-16 23:57] LABS: BILIRUBIN,TOTAL 0.9 MG/DL (0.1-1.0)
[2023-05-16 23:58] LABS: ALKALINE PHOSPHATASE 71 U/L (40-136); CREATININE SERUM 1.09 MG/DL (0.60-1.30); GFR ESTIMATED 85
[2023-05-16 23:59] LABS: BUN/CREATININE RATIO 15
[2023-05-17 00:01] LABS: ALANINE AMINOTRANSFERASE 79 U/L (0-55)
[2023-05-17 00:03] LABS: LIPASE 35 U/L (8-78)
[2023-05-17 00:11] LABS: BACTERIA,URINE FEW /HPF; BILIRUBIN,URINE NEGATIVE (NEGATIVE); CLARITY,URINE CLEAR; COLOR,URINE YELLOW; GLUCOSE, URINE (UA) 3+ (NEGATIVE); KETONES,URINE 2+ (NEGATIVE); LEUKOCYTE ESTERASE ,URINE NEGATIVE (NEGATIVE); NITRITE,URINE NEGATIVE (NEGATIVE); PROTEIN,URINE NEGATIVE (NEGATIVE); RBC,URINE RARE /HPF; WBC,URINE RARE /HPF
[2023-05-17 00:12] LABS: AMORPHOUS SEDIMENT,UR FEW AMOR URATES /LPF; AMPHETAMINE SCREEN, URINE NEGATIVE (NEGATIVE); BARBITURATE SCREEN URINE NEGATIVE (NEGATIVE); BENZODIAZEPINES SCREEN URINE NEGATIVE (NEGATIVE); CANNABINOID SCREEN, URINE POSITIVE (NEGATIVE); COCAINE SCREEN URINE NEGATIVE (NEGATIVE); METHADONE STAT NEGATIVE (NEGATIVE); OPIATE SCREEN URINE NEGATIVE (NEGATIVE); OXYCODONE STAT NEGATIVE (NEGATIVE); PROPOXYPHENE STAT NEGATIVE (NEGATIVE); TRICYCLIC ANTIDEPRESSANTS SCRE NEGATIVE (NEGATIVE)
[2023-05-17] MEDS ORDERED: inSUlin (REGULAR) HUMAN 1 UNIT/0.01 ML (CHARGE PER UNIT) SC ONE (00:15)
--- NOTE | 2023-05-17 00:19 | ED General ---
General Chief Complaint: General Problems/Pain Stated Complaint: ATE AN EDIBLE Nursing Triage Note: TO ED VIA [facility] EMS TO ROOM 7. PT C/O CP HE DESCRIBES "WARM FEELING" AND RATES 1 ON 0-10 SCALE, DIZZINIESS, AND SOA AFTER TAKING AN EDIBLE 1-2H DITCHER FOR NEUROPATHY PAIN. PT HX DM AND STATES, "I THINK I'M GOING INTO [facility]". BLOOD GLUCOSE 299 MG/DL EN ROUTE VIA EMS. RESPIRATIONS EVEN AND UNLABORED, NO RESPIRATORY DISTRESS NOTED. PT ALSO PRESENTS WITH GAUZE WRAP DRSG TO RIGHT LOWER EXTREMITY. STATES HE WENT TO WOUND CARE 2 WEEKS AGO. DRSG REMOVED FROM RLE AND 2 ULCERS NOTED TO RIGHT CH WITH SURROUNDING AREA ERYTHEMA, NO DRAINAGE NOTED. DR. TUCKER AT BEDSIDE AND STATES WOUND CX WILL NOT BE NECESSARY. NON ADHERENT DRSG TO RIGHT CH AND COVERED WITH GAUZE WRAP AND TAPE. PT IS VERY WELL KNOWN TO ER STAFF FOR VARIOUS COMPLAINTS. Source of Information: Patient, Old Records History of Present Illness Date Seen by Provider: May 16, 2023 Time Seen by Provider: 23:05 Initial Comments PT ARRIVES VIA EMS FROM HOME PT WITH A MULTITUDE OF COMPLAINTS--ALL BEGAN AFTER HE HAD AN "EDIBLE" A COUPLE OF HOURS AGO PT STATES HE THINKS IT WAS "MAYBE 1 1/2 DOSE" AND STATES "AND NOW IF FEEL LIKE I'M GOING BACK INTO [place]--I HAVE DRY MOUTH AND I'M THIRSTY AND I FEEL SHORT OF BREATH AND I FEEL DIZZY AND I'M HAVING CHEST PAINS" PT STATES "I'VE BEEN HURTING ALL DAY"--PT STATES IT IS HIS CHRONIC PAIN FROM NEUROPATHY HE HAS NOT TAKEN ANYTHING ELSE FOR PAIN --ONLY THE "EDIBLE" RATES PAIN 4/10 AT WORST, NOW 1/10 EMS GAVE 324 MG ASPIRIN STATES PAINS COME AND GO NO SWEATS NO NAUSEA/VOMITING/DIARRHEA OR ABDOMINAL PAIN HAS URINARY FREQUENCY, BUT NO PAIN ON URINATION NO FEVER OR COUGH/CONGESTION PT IS TYPE 1 DIABETIC, HE HAS NOT CHECKED HIS BLOOD SUGAR OR TAKEN HIS INSULIN TODAY ACCUCHECK 299 FOR EMS PT HAS WOUNDS TO RIGHT CH AREA--STATES HE HAD BEEN GOING TO WOUND CARE, AND STATES "THEY WERE HEALED UP" --LAST VISIT TO WOUND CARE WAS 2 WEEKS AGO STATES HE THINKS HE BUMPED IT 3 DAYS AGO AND IT "FLARED UP AGAIN" --HE HAS A DRESSING IN PLACE TO HIS RIGHT LOWER LEG, BUT HE HAS NOT PUT ANY TOPICAL ANTIBIOTICS ON IT PT WITH A MULTITUDE OF VISITS HERE FOR VARIOUS COMPLAINTS, BUT MANY ARE DIABETIC RELATED COMPLAINTS PT HAS A LONG HISTORY OF NON-COMPLIANCE IN ALL ASPECTS OF CARE PCP: [facility] [place]ergies and Home Medications Allergies Coded Allergies: sertraline (Verified Allergy, Severe, RASH, SWELLING, 04/09/20) "FELT LOOPY" albuterol (Verified Allergy, Unknown, 03/05/23) bupropion (Verified Allergy, Unknown, "CAUSED ME TO BANG MY HEAD ON THE WALL", 04/09/20) buspirone (Verified Allergy, Unknown, THROAT SWELLED, 04/09/20) cephalexin (Verified Allergy, Unknown, HIVES, 04/09/20) clindamycin (Verified Allergy, Unknown, 03/05/23) codeine (Verified Allergy, Unknown, pt tolerated morphine in past, 06/10/22) semaglutide (Verified Allergy, Unknown, 03/05/23) sulfamethoxazole (Verified Adverse Reaction, Unknown, Itching, 04/09/20) trimethoprim (Verified Adverse Reaction, Unknown, Itching, 04/09/20) Patient Home Medication List Home Medication List Reviewed: Yes Aspirin (Aspirin EC) 81 Mg Tablet.dr, 81 MG PO DAILY, (Reported) Entered as Reported by: SABAS SILVA on 09/29/21 1415 Atorvastatin Calcium (Atorvastatin Calcium) 80 Mg Tablet, 80 MG PO DAILY, (Reported) Entered as Reported by: ZACHARY HATCH on 03/03/23 1225 Biotin (Biotin) 10 Mg Tablet, 10 MG PO DAILY, (Reported) Entered as Reported by: ZACHARY HATCH on 03/03/23 1225 Cetirizine HCl (Cetirizine HCl) 10 Mg Tablet, 10 MG PO DAILY PRN for ALLERGIES, (Reported) Entered as Reported by: SABAS SILVA on 09/29/21 1416 Dicyclomine HCl (Dicyclomine HCl) 20 Mg Tablet, 20 MG PO QID PRN for GI SPASMS, (Reported) Entered as Reported by: ZACHARY HATCH on 06/11/22 1055 Empagliflozin/Metformin HCl (Synjardy Xr 12.5-1,000 mg Tab) 12.5 Mg-1,000 Mg Tab.bp.24h, 1 EA PO DAILY, (Reported) Entered as Reported by: ZACHARY HATCH on 03/03/23 1225 Hydrochlorothiazide (Hydrochlorothiazide) 25 Mg Tablet, 25 MG PO DAILY PRN for FLUID RETENTION, (Reported) Entered as Reported by: SABAS SILVA on 09/29/21 1415 Ibuprofen (Ibuprofen) 800 Mg Tablet, 800 MG PO Q8H PRN for PAIN-MILD (1-4), (Reported) Entered as Reported by: ZACHARY HATCH on 03/03/23 1225 Insulin Regular, Human (Humulin R U-500 Kwikpen) 500/Ml (3) Insuln.pen, 225 UNIT SQ AC, (Reported) Entered as Reported by: ZACHARY HATCH on 03/03/23 1225 Lisinopril (Lisinopril) 40 Mg Tablet, 40 MG PO DAILY, (Reported) Entered as Reported by: ZACHARY HATCH on 06/11/22 1055 Mirtazapine (Mirtazapine) 30 Mg Tablet, 30 MG PO HS, (Reported) Entered as Reported by: ZACHARY HATCH on 03/03/23 1225 Pantoprazole Sodium (Pantoprazole Sodium) 40 Mg Tablet.dr, 40 MG PO DAILY, (Reported) Entered as Reported by: TRISTON BETH on 04/09/20 1431 Pregabalin (Pregabalin) 150 Mg Capsule, 150 MG PO BID PRN for NERVE PAIN, (Reported) Entered as Reported by: ZACHARY HATCH on 12/04/20 1538 Tirzepatide (Mounjaro) 5 Mg/0.5 Ml Pen.injctr, 5 MG SQ SUN, (Reported) Entered as Reported by: ZACHARY HATCH on 03/03/23 1225 Tizanidine HCl (Tizanidine HCl) 4 Mg Tablet, 4 MG PO TID PRN for MUSCLE SPASMS, (Reported) Entered as Reported by: ZACHARY HATCH on 06/11/22 1055 Review of Systems Review of Systems Constitutional: see HPI EENTM: see HPI Respiratory: see HPI Cardiovascular: see HPI Gastrointestinal: no symptoms reported Genitourinary: see HPI Musculoskeletal: see HPI Skin: see HPI Psychiatric/Neurological: See HPI Hematologic/Lymphatic: No Symptoms Reported Immunological/Allergic: no symptoms reported Past Uibxyoo-Kifchz-Ikaatp Hx Patient Social History Tobacco Use?: No Substance use?: Yes Substance type: Marijuana Additional substance use comme: EDIBLES Substance frequency: Once in a while Alcohol Use?: No Immunizations Up To Date Tetanus Booster (TDap): More than 5yrs PED Vaccines UTD: No First/Initial COVID19 Vaccinat: NONE Second COVID19 Vaccination Sundar: NONE Third COVID19 Vaccination Date: NONE Seasonal Allergies Seasonal Allergies: Yes Past Medical History Surgery/Hospitalization HX: testicular, cholecystectomy hypogonadism, asthma, high cholesterol, htn, gerd, neuropathy, obesity, iddm, adhd, anx/dep, Surgeries: Yes (HYPOGONADISM SURGERY ,/UNDESCENDED TESTICLE SURGERY; ENDOSCOPIES) Gallbladder, Testicular Respiratory: Yes Asthma Currently Using CPAP: No Currently Using BIPAP: No Cardiac: Yes High Cholesterol, Hypertension, Palpitations Neurological: Yes Neuropathy Reproductive Disorders: Yes (HYPOGONADISM sx as an ) Sexually Transmitted Disease: No HIV/AIDS: No Genitourinary: No Gastrointestinal: Yes (ENDOSCOPIES) Gastroesophageal Reflux, Diverticulosis, Esophagitis Musculoskeletal: Yes Arthritis Endocrine: Yes (MORBID OBESITY; DM TYPE 2 (INSULIN AND PO)-LONG HISTORY OF NON- COMPLIANCE) Diabetes, Insulin dep HEENT: Yes (GLASSES) Loss of Vision: Denies Hearing Impairment: Denies Cancer: No Psychosocial: Yes ADD/ADHD, Anxiety, Depression Integumentary: No Blood Disorders: No Adverse Reaction/Blood Tranf: No (N/A) Family Medical History Arthritis 19 MOTHER Congenital heart disease Diabetes mellitus 19 FATHER 19 MOTHER FH: brain aneurysm 19 FATHER (cause of - 09/13/2015) Glaucoma 19 FATHER Hypertension 19 FATHER 19 MOTHER Psychosocial problem 19 MOTHER (depression) No Pertinent Family Hx SOCIAL HISTORY: -SMOKES UP TO 1 PPD -VAPES NICOTINE DAILY ALSO -ETOH--OCCASIONAL USE -DRUGS--SMOKES MARIJUANA DAILY Physical Exam Vital Signs Vital Signs - First Documented 05/16/23 23:07 Temp 37.2 Pulse 114 Resp 18 B/P (MAP) 139/87 (104) Pulse Ox 96 O2 Delivery Room Air Capillary Refill : Less Than 3 Seconds Height, Weight, BMI Height: 5'11.00" Weight: 324lbs. 0.0oz. 146.868861hg; 49.00 BMI Method:Stated General Appearance: No Apparent Distress, WD/WN, Obese, Other (DRAMATIC. UNKEMPT, HAIR DYED BLACK TODAY) HEENT: PERRL/EOMI, Pharynx Normal, Moist Mucous Membranes Neck: Normal Inspection Respiratory: Normal Breath Sounds, No Accessory Muscle Use, No Respiratory Distress Cardiovascular: No Edema, No JVD, No Murmur, Tachycardia (110'S) Gastrointestinal: Non Tender, Soft Back: No CVA Tenderness Extremity: Normal Capillary Refill, No Pedal Edema, Other (MULTIPLE SCABS/SORES TO RIGHT CH WITH SOME WITH DE-ROOFED SCABS. THERE IS MILD SURROUNDING ERYTHEMA BUT APPEARS TO BE POST-INFLAMMATORY COLORATION--DOES NOT HAVE ANY WARMTH OR TENDERNESS OR TYPICAL APPEARANCE OF CELLULITIS--NO BLEEDING, NO DRAINAGE, NO FLUCTUANCE OR STREAKS. NO SWELLING TO THE AREA. THERE IS BILATERAL VENOUS STASIS CHANGES TO BILATERAL LOWER LEGS. ) Progress/Results/Core Measures Suspected Sepsis SIRS Temperature: Pulse: 114 Respiratory Rate: 18 Laboratory Tests 05/16/23 23:20: White Blood Count 6.3 Blood Pressure 139 /87 Mean: 104 Laboratory Tests 05/16/23 23:20: Creatinine 1.09, Platelet Count 179, Total Bilirubin 0.9 Results/Orders Lab Results Laboratory Tests Test 05/16/23 23:20 05/16/23 23:50 05/17/23 01:10 Range/Units White Blood Count 6.3 4.3-11.0 10^3/uL Red Blood Count 4.99 4.30-5.52 10^6/uL Hemoglobin 14.9 13.3-17.7 g/dL Hematocrit 43 40-54 % Mean Corpuscular Volume 85 80-99 fL Mean Corpuscular Hemoglobin 30 25-34 pg Mean Corpuscular Hemoglobin Concent 35 32-36 g/dL Red Cell Distribution Width 12.3 10.0-14.5 % Platelet Count 179 130-400 10^3/uL Mean Platelet Volume 11.4 9.0-12.2 fL Immature Granulocyte % (Auto) 1 % Neutrophils (%) (Auto) 57 42-75 % Lymphocytes (%) (Auto) 31 12-44 % Monocytes (%) (Auto) 9 0-12 % Eosinophils (%) (Auto) 2 0-10 % Basophils (%) (Auto) 1 0-10 % Neutrophils # (Auto) 3.6 1.8-7.8 10^3/uL Lymphocytes # (Auto) 1.9 1.0-4.0 10^3/uL Monocytes # (Auto) 0.6 0.0-1.0 10^3/uL Eosinophils # (Auto) 0.1 0.0-0.3 10^3/uL Basophils # (Auto) 0.0 0.0-0.1 10^3/uL Immature Granulocyte # (Auto) 0.1 0.0-0.1 10^3/uL Venous Blood pH 7.36 7.31-7.41 Venous Blood Partial Pressure CO2 38 L 40-52 MMHG Venous Blood HCO3 21 L 22-28 MMOL/L Sodium Level 137 135-145 MMOL/L Potassium Level 4.5 3.6-5.0 MMOL/L Chloride Level 105 98-107 MMOL/L Carbon Dioxide Level 20 L 21-32 MMOL/L Anion Gap 12 5-14 MMOL/L Blood Urea Nitrogen 16 7-18 MG/DL Creatinine 1.09 0.60-1.30 MG/DL Estimat Glomerular Filtration Rate 85 BUN/Creatinine Ratio 15 Glucose Level 400 H 70-105 MG/DL Calcium Level 9.5 8.5-10.1 MG/DL Corrected Calcium 9.6 8.5-10.1 MG/DL Magnesium Level 2.0 1.6-2.4 MG/DL Total Bilirubin 0.9 0.1-1.0 MG/DL Aspartate Amino Transf (AST/SGOT) 68 H 5-34 U/L Alanine Aminotransferase (ALT/SGPT) 79 H 0-55 U/L Alkaline Phosphatase 71 40-136 U/L Troponin I < 0.028 <0.028 NG/ML Total Protein 6.5 6.4-8.2 GM/DL Albumin 3.9 3.2-4.5 GM/DL Amylase Level 50 25-125 U/L Lipase 35 8-78 U/L Urine Color YELLOW Urine Clarity CLEAR Urine pH 5.0 5-9 Urine Specific Pinnacle 1.015 L 1.016-1.022 Urine Protein NEGATIVE NEGATIVE Urine Glucose (UA) 3+ H NEGATIVE Urine Ketones 2+ H NEGATIVE Urine Nitrite NEGATIVE NEGATIVE Urine Bilirubin NEGATIVE NEGATIVE Urine Urobilinogen 0.2 < = 1.0 MG/DL Urine Leukocyte Esterase NEGATIVE NEGATIVE Urine RBC (Auto) NEGATIVE NEGATIVE Urine RBC RARE /HPF Urine WBC RARE /HPF Urine Squamous Epithelial Cells 2-5 /HPF Urine Crystals PRESENT H /LPF Urine Amorphous Sediment FEW LINDA URATES H /LPF Urine Bacteria FEW H /HPF Urine Casts NONE /LPF Urine Mucus SMALL H /LPF Urine Culture Indicated NO Urine Opiates Screen NEGATIVE NEGATIVE Urine Oxycodone Screen NEGATIVE NEGATIVE Urine Methadone Screen NEGATIVE NEGATIVE Urine Propoxyphene Screen NEGATIVE NEGATIVE Urine Barbiturates Screen NEGATIVE NEGATIVE Ur Tricyclic Antidepressants Screen NEGATIVE NEGATIVE Urine Phencyclidine Screen NEGATIVE NEGATIVE Urine Amphetamines Screen NEGATIVE NEGATIVE Urine Methamphetamines Screen NEGATIVE NEGATIVE Urine Benzodiazepines Screen NEGATIVE NEGATIVE Urine Cocaine Screen NEGATIVE NEGATIVE Urine Cannabinoids Screen POSITIVE H NEGATIVE Glucometer 356 H 70-110 MG/DL My Orders Orders - TRISTEN TUCKER DO Ekg Tracing (05/16/23 23:12) Monitor-Rhythm Ecg Trace Only (05/16/23 23:12) Cbc With Automated Diff (05/16/23 23:12) Comprehensive Metabolic Panel (05/16/23 23:12) Drug Screen Stat (Urine) (05/16/23 23:12) Magnesium (05/16/23 23:12) Ua Culture If Indicated (05/16/23 23:12) Troponin I Felix (05/16/23 23:12) Amylase (05/16/23 23:15) Lipase (05/16/23 23:15) Chest 1 View, Ap/Pa Only (05/16/23 23:15) Venous Blood Gas (05/16/23 23:15) Insulin (Regular) Per Unit (Insulin (Reg (05/17/23 00:15) Accucheck Stat ONCE (05/17/23 00:40) Medications Given in ED Vital Signs/I&O 05/16/23 05/16/23 05/17/23 23:07 23:07 01:15 Temp 37.2 37.2 Pulse 114 97 Resp 18 18 B/P (MAP) 139/87 (104) 126/89 Pulse Ox 96 96 O2 Delivery Room Air Room Air Room Air Capillary Refill : Less Than 3 Seconds Blood Pressure Mean: 104 Progress Note : Progress Note VITALS ON ARRIVAL: TEMP 37.2, HR 114, RR 18, BP 139/87, O2 SAT 96% ON ROOM AIR NO COMPLAINTS OF PAIN OR DYSPNEA OR DIZZINESS FOR REMAINDER OF ER STAY LABS: -CBC NORMAL -CMP WITH NA 135, K 4.5, CO2 20, ANION GPA 12, BUN 16, CR 1.09, GLU 400, AST 68, ALT 79 -AMYLASE/LIPASE NORMAL -TROPONIN NEGATIVE -VENOUS BLOOD GAS: PH 7.36, PC02 38, HCO3 21 -UDS + FOR CANNABINOIDS -UA WITH 3+ GLUCOSE, 2+ [place] EKG IS NORMAL CXR IS NORMAL PT DOES NOT APPEAR TO BE IN DKA OR HAVE ANY ACUTE CARDIAC OR RESPIRATORY PROCESS AT THIS TIME. GIVEN 20 UNITS OF REGULAR INSULIN SUB Q ACCUCHECK PRIOR TO DISMISSAL 356 PT HAD NO COMPLAINTS OF ANY KIND FOR REMAINDER OF ER STAY NO DYSPNEA NO HYPOXIA NO FEVER VITALS AT DISMISSAL: TEMP 37.2, HR 97, RR 1`8, BPO 126/89, O2 SAT 96% ON ROOM AINR DISCUSSED TEST RESULTS, ANTICIPATED COURSE, IMPORTANCE OF MEDICATION COMPLIANCE WELL REGULARLY CHECKING BLOOD GLUCOSE, IMPORTANCE OF FOLLOW UP WITH PCP THIS WEEK AND RETURN PRECAUTIONS DISCUSSED WOUND CARE TO HIS RIGHT LOWER LEG. THE AREA WAS DRESSED WITH STERILE DRESSINGS HERE REVIEWED PRIOR RECORDS INCLUDING ER VISITS, ADMITS/H&P'S/CONSULTS/DISCHARGE SUMMARIES, TESTS/PROCEDURES ECG Initial ECG Impression Date: May 16, 2023 Initial ECG Impression Time: 23:16 Initial ECG Rate: 112 Initial ECG Rhythm: S.Tach Initial ECG Intervals: Normal Initial ECG Impression: Sinus Bradycardia Initial ECG Comparisson: Unchanged Comment INTERPRETED BY ME Diagnostic Imaging Comments CXR--PENDING RADIOLOGIST REVIEW -NO ACUTE PROCESS Reviewed: Reviewed by Me Departure Impression Primary Impression: Hyperglycemia due to diabetes mellitus Additional Impressions: Non compliance with medical treatment Marijuana use CHRONIC WOUNDS TO RIGHT LOWER LEG Disposition: 01 HOME, SELF-CARE Condition: Stable Departure-Patient Inst. Decision time for Depature: 00:18 Referrals: ZACHARY LEVIN DO (PCP/Family) Primary Care Physician Patient Instructions: High Blood Sugar, Adult ED, Marijuana Use and Addiction (DC), Wound Care (DC) Add. Discharge Instructions: TAKE YOUR MEDICATIONS EXACTLY PRESCRIBED AND CHECK YOUR BLOOD SUGAR AT LEAST 4 TIMES A DAY--BEFORE EACH MEAL AND AT BEDTIME NO MARIJUANA IN ANY FORM!!!! CLEAN WOUNDS TWICE A DAY WITH ANTIBACTERIAL SOAP AND WATER, APPLY ANTIBIOTIC OINTMENT AND FRESH DRESSING TWICE A DAY. FOLLOW UP WITH WOUND CARE FOR RECHECK FOLLOW UP WITH YOUR DR IN 1-2 DAYS FOR FURTHER CARE--CALL IN THE MORNING TO SCHEDULE AN APPOINTMENT All discharge instructions reviewed with patient and/or family. Voiced understanding. TRISTEN TUCKER DO May 17, 2023 00:19
[2023-05-17 01:15] VITALS: BP 126/89
--- NOTE | 2023-05-17 08:01 | Diagnostic Imaging Report ---
Indication: 43-year-old male with chest pain, shortness of breath Comparisons: 03/04/2023. FINDINGS: Single view chest shows normal heart, pleura and diaphragms. No consolidations are seen. The film is underpenetrated due to low lung volumes with accentuation of central lung markings. Overall no acute cardiopulmonary changes seen. IMPRESSION: No acute cardiopulmonary changes seen. Dictated by: Dictated on workstation # [id number]
== END 2023-05-17 01:23 | disposition home or self-care (01) ==
LOC: EDUNIT# 23:04 → ER 23:07
DX: S80.921A Unspecified superficial injury of right lower leg, initial encounter (principal); E10.65 Type 1 diabetes mellitus with hyperglycemia; F12.90 Cannabis use, unspecified, uncomplicated; E66.01 Morbid (severe) obesity due to excess calories; F17.210 Nicotine dependence, cigarettes, uncomplicated; Z91.148 Patient's other noncompliance with medication regimen for other reason; Z68.42 Body mass index [BMI] 45.0-49.9, adult; Z79.4 Long term (current) use of insulin; X58.XXXA Exposure to other specified factors, initial encounter
CPT/HCPCS: 36415; 71045; 80053; 80306; 81000; 82150; 82805; 82947; 83690; 83735; 84484; 85025; 93005; 93041

== ENCOUNTER 2023-05-24 05:47 | Emergency (ER) | payer MEDICARE, MEDICAID ==
[~2023-05-24] VITALS: Ht 177.8 cm; Wt 149.7 kg
[2023-05-24] MEDS ORDERED: FAMOTIDINE 20 MG TABLET PO STA (06:08)
[2023-05-24] MEDS ORDERED: ASPIRIN 81 MG CHEWABLE TABLET PO ONE (06:15)
--- NOTE | 2023-05-24 06:28 | ED Chest Pain ---
General Chief Complaint: Chest Pain Stated Complaint: CP,VITALE,DIZZY,SOB Source: patient Exam Limitations: no limitations History of Present Illness Date Seen by Provider: May 24, 2023 Time Seen by Provider: 06:00 Initial Comments Here with report of central chest pain that is not radiating, dizziness breath and just not feeling well. This has been intermittent over the last couple of days with chest pain representing last night. He states that his blood sugars have been in reasonable range at around 200. Denies vomiting but has had some nausea and denies diarrhea. States wound on his leg is doing much better. He tried some Gaviscon and that did not help. Presenting for concerns of chest pain. He does admit to trying Ambien to see if that would help go to sleep and that has not started working out but he fears it will shortly. He did drive here. 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 Associated Symptoms: No abdominal pain, No back pain, No diaphoresis; dizziness; No fever/chills; heartburn, nausea/vomiting, shortness of breath; No weakness Allergies and Home Medications Allergies Coded Allergies: sertraline (Verified Allergy, Severe, RASH, SWELLING, 04/09/20) "FELT LOOPY" albuterol (Verified Allergy, Unknown, 03/05/23) bupropion (Verified Allergy, Unknown, "CAUSED ME TO BANG MY HEAD ON THE WALL", 04/09/20) buspirone (Verified Allergy, Unknown, THROAT SWELLED, 04/09/20) cephalexin (Verified Allergy, Unknown, HIVES, 04/09/20) clindamycin (Verified Allergy, Unknown, 03/05/23) codeine (Verified Allergy, Unknown, pt tolerated morphine in past, 06/10/22) semaglutide (Verified Allergy, Unknown, 03/05/23) sulfamethoxazole (Verified Adverse Reaction, Unknown, Itching, 04/09/20) trimethoprim (Verified Adverse Reaction, Unknown, Itching, 04/09/20) Patient Home Medication List Home Medication List Reviewed: Yes Aspirin (Aspirin EC) 81 Mg Tablet., 81 MG PO DAILY, (Reported) Entered as Reported by: SABAS SILVA on 09/29/21 141 Atorvastatin Calcium (Atorvastatin Calcium) 80 Mg Tablet, 80 MG PO DAILY, (Reported) Entered as Reported by: ZACHARY HATCH on 03/03/23 122 Biotin (Biotin) 10 Mg Tablet, 10 MG PO DAILY, (Reported) Entered as Reported by: AZCHARY HATCH on 03/03/23 122 Cetirizine HCl (Cetirizine HCl) 10 Mg Tablet, 10 MG PO DAILY PRN for ALLERGIES, (Reported) Entered as Reported by: SABAS SILVA on 09/29/21 141 Dicyclomine HCl (Dicyclomine HCl) 20 Mg Tablet, 20 MG PO QID PRN for GI SPASMS, (Reported) Entered as Reported by: ZACHARY HATCH on 06/11/22 105 Empagliflozin/Metformin HCl (Synjardy Xr 12.5-1,000 mg Tab) 12.5 Mg-1,000 Mg Tab.bp.24h, 1 EA PO DAILY, (Reported) Entered as Reported by: ZACHARY HATCH on 03/03/23 122 Hydrochlorothiazide (Hydrochlorothiazide) 25 Mg Tablet, 25 MG PO DAILY PRN for FLUID RETENTION, (Reported) Entered as Reported by: SABAS SILVA on 09/29/21 141 Ibuprofen (Ibuprofen) 800 Mg Tablet, 800 MG PO Q8H PRN for PAIN-MILD (1-4), (Reported) Entered as Reported by: ZACHARY HATCH on 03/03/23 122 Insulin Regular, Human (Humulin R U-500 Kwikpen) 500/Ml (3) Insuln.pen, 225 UNIT SQ AC, (Reported) Entered as Reported by: ZACHARY HATCH on 03/03/23 122 Lisinopril (Lisinopril) 40 Mg Tablet, 40 MG PO DAILY, (Reported) Entered as Reported by: ZACHARY HATCH on 06/11/22 105 Mirtazapine (Mirtazapine) 30 Mg Tablet, 30 MG PO HS, (Reported) Entered as Reported by: ZACHARY HATCH on 03/03/23 122 Pantoprazole Sodium (Pantoprazole Sodium) 40 Mg Tablet.dr, 40 MG PO DAILY, (Reported) Entered as Reported by: TRISTON BETH on 04/09/20 1431 Pregabalin (Pregabalin) 150 Mg Capsule, 150 MG PO BID PRN for NERVE PAIN, (Reported) Entered as Reported by: ZACHARY HATCH on 12/04/20 1538 Tirzepatide (Mounjaro) 5 Mg/0.5 Ml Pen.injctr, 5 MG SQ SUN, (Reported) Entered as Reported by: ZACHARY HATCH on 03/03/23 1225 Tizanidine HCl (Tizanidine HCl) 4 Mg Tablet, 4 MG PO TID PRN for MUSCLE SPASMS, (Reported) Entered as Reported by: ZACHARY HATCH on 06/11/22 1055 Review of Systems Review of Systems Constitutional: see HPI; No chills, No fever EENTM: Nose Congestion, Throat Pain Respiratory: Denies Cough; Shortness of Air Cardiovascular: Chest Pain; Denies Edema; Lightheadedness Gastrointestinal: Nausea; Denies Vomiting Genitourinary: No Symptoms Reported Skin: lesions (Bilateral lower extremities that he reports are better) Past Bzitcbk-Uwjnkr-Yayvls Hx Patient Social History Tobacco Use?: No Substance use?: Yes Substance type: Marijuana Substance frequency: Rarely Alcohol Use?: No Pt feels they are or have been: No Immunizations Up To Date Tetanus Booster (TDap): More than 5yrs PED Vaccines UTD: No Influenza Vaccine Up-to-Date: No; Not Current First/Initial COVID19 Vaccinat: N/A Second COVID19 Vaccination Sundar: NONE Third COVID19 Vaccination Date: NONE Seasonal Allergies Seasonal Allergies: Yes Past Medical History Surgery/Hospitalization HX: HTN, IDDM, ANXIETY Surgeries: Yes (HYPOGONADISM SURGERY ,/UNDESCENDED TESTICLE SURGERY; ENDOSCOPIES) Gallbladder, Testicular Respiratory: Yes Asthma Currently Using CPAP: No Currently Using BIPAP: No Cardiac: Yes High Cholesterol, Hypertension, Palpitations Neurological: Yes Neuropathy Reproductive Disorders: Yes (HYPOGONADISM sx as an infant) Sexually Transmitted Disease: No HIV/AIDS: No Genitourinary: No Gastrointestinal: Yes (ENDOSCOPIES) Gastroesophageal Reflux, Diverticulosis, Esophagitis Musculoskeletal: Yes Arthritis Endocrine: Yes (MORBID OBESITY; DM TYPE 2 (INSULIN AND PO)-LONG HISTORY OF NON- COMPLIANCE) Diabetes, Insulin dep HEENT: Yes (GLASSES) Loss of Vision: Denies Hearing Impairment: Denies Cancer: No Psychosocial: Yes ADD/ADHD, Anxiety, Depression Integumentary: No Blood Disorders: No Adverse Reaction/Blood Tranf: No (N/A) Family Medical History Reviewed Nursing Family Hx Arthritis 19 MOTHER Congenital heart disease Diabetes mellitus 19 FATHER 19 MOTHER FH: brain aneurysm 19 FATHER (cause of - 09/13/2015) Glaucoma 19 FATHER Hypertension 19 FATHER 19 MOTHER Psychosocial problem 19 MOTHER (depression) No Pertinent Family Hx SOCIAL HISTORY: -SMOKES UP TO 1 PPD -VAPES NICOTINE DAILY ALSO -ETOH--OCCASIONAL USE -DRUGS--SMOKES MARIJUANA DAILY Physical Exam Vital Signs Vital Signs - First Documented 05/24/23 05:50 Temp 35.9 Pulse 90 Resp 16 B/P (MAP) 162/91 (114) Pulse Ox 97 O2 Delivery Room Air Capillary Refill : Less Than 3 Seconds Height, Weight, BMI Height: 5'11.00" Weight: 324lbs. 0.0oz. 146.677537hn; 49.00 BMI Method:Stated General Appearance: No Apparent Distress, WD/WN, Obese Neck: Full Range of Motion, Supple Respiratory: Lungs Clear, Normal Breath Sounds Cardiovascular: Regular Rate, Rhythm, No Murmur Gastrointestinal: Non Tender, Soft Extremity: No Calf Tenderness, No Pedal Edema, Other (Healing wound around right mid tibia region with some surrounding erythema that patient states is better. There is small amount of erythema to the left mid tibia region lateral without significant wound that he states is not changed.) Neurologic/Psychiatric: Alert, Oriented x3 Skin: Warm/Dry, Other (Lesion as above) Progress/Results/Core Measures Results/Orders Lab Results Laboratory Tests Test 05/24/23 06:20 05/24/23 06:35 05/24/23 08:25 Range/Units Influenza Type A (RT-PCR) Not Detected Not Detecte Influenza Type B (RT-PCR) Not Detected Not Detecte SARS-CoV-2 RNA (RT-PCR) Not Detected Not Detecte White Blood Count 6.2 4.3-11.0 10^3/uL Red Blood Count 4.97 4.30-5.52 10^6/uL Hemoglobin 15.1 13.3-17.7 g/dL Hematocrit 42 40-54 % Mean Corpuscular Volume 85 80-99 fL Mean Corpuscular Hemoglobin 30 25-34 pg Mean Corpuscular Hemoglobin Concent 36 32-36 g/dL Red Cell Distribution Width 12.3 10.0-14.5 % Platelet Count 163 130-400 10^3/uL Mean Platelet Volume 11.4 9.0-12.2 fL Immature Granulocyte % (Auto) 2 % Neutrophils (%) (Auto) 48 42-75 % Lymphocytes (%) (Auto) 38 12-44 % Monocytes (%) (Auto) 10 0-12 % Eosinophils (%) (Auto) 2 0-10 % Basophils (%) (Auto) 1 0-10 % Neutrophils # (Auto) 3.0 1.8-7.8 10^3/uL Lymphocytes # (Auto) 2.4 1.0-4.0 10^3/uL Monocytes # (Auto) 0.6 0.0-1.0 10^3/uL Eosinophils # (Auto) 0.1 0.0-0.3 10^3/uL Basophils # (Auto) 0.0 0.0-0.1 10^3/uL Immature Granulocyte # (Auto) 0.1 0.0-0.1 10^3/uL Prothrombin Time 12.5 12.2-14.7 SEC INR Comment 0.9 0.8-1.4 Activated Partial Thromboplast Time 33 24-35 SEC Sodium Level 134 L 135-145 MMOL/L Potassium Level 4.0 3.6-5.0 MMOL/L Chloride Level 104 98-107 MMOL/L Carbon Dioxide Level 21 21-32 MMOL/L Anion Gap 9 5-14 MMOL/L Blood Urea Nitrogen 17 7-18 MG/DL Creatinine 0.97 0.60-1.30 MG/DL Estimat Glomerular Filtration Rate 98 BUN/Creatinine Ratio 18 Glucose Level 282 H 70-105 MG/DL Calcium Level 9.6 8.5-10.1 MG/DL Corrected Calcium 9.8 8.5-10.1 MG/DL Magnesium Level 2.2 1.6-2.4 MG/DL Total Bilirubin 0.5 0.1-1.0 MG/DL Aspartate Amino Transf (AST/SGOT) 32 5-34 U/L Alanine Aminotransferase (ALT/SGPT) 59 H 0-55 U/L Alkaline Phosphatase 77 40-136 U/L Myoglobin 54.8 10.0-92.0 NG/ML Troponin I < 0.028 < 0.028 <0.028 NG/ML C-Reactive Protein High Sensitivity 0.68 H 0.00-0.50 MG/DL Total Protein 6.3 L 6.4-8.2 GM/DL Albumin 3.8 3.2-4.5 GM/DL Lipase 32 8-78 U/L My Orders Orders - LUPE BARCLAY MD Cbc With Automated Diff (05/24/23 06:08) Magnesium (05/24/23 06:08) Chest 1 View, Ap/Pa Only (05/24/23 06:08) Comprehensive Metabolic Panel (05/24/23 06:08) Myoglobin Serum (05/24/23 06:08) Protime With Inr (05/24/23 06:08) Partial Thromboplastin Time (05/24/23 06:08) O2 (05/24/23 06:08) Monitor-Rhythm Ecg Trace Only (05/24/23 06:08) Lipid Panel (05/25/23 06:00) Ed Iv/Invasive Line Start (05/24/23 06:08) Lipase (05/24/23 06:08) Troponin I Felix (05/24/23 06:08) Aspirin Chewable Tablet (Aspirin Chewabl (05/24/23 06:15) Famotidine Tablet (Famotidine Tablet) (05/24/23 06:08) Hs C Reactive Protein (05/24/23 06:12) Ekg Tracing (05/24/23 06:16) Influenza A And B By Pcr (05/24/23 06:16) Covid 19 Inhouse Test (05/24/23 06:16) Troponin I Tompkins (05/24/23 08:30) Pantoprazole Injection (Pantoprazole Inj (05/24/23 09:45) Ketorolac Injection (Ketorolac Injection (05/24/23 09:34) Medications Given in ED Current Medications Medications Dose Ordered Sig/Nikia Route Start Time Stop Time Status Last Admin Dose Admin Aspirin 324 mg ONCE ONCE PO 05/24/23 06:15 05/24/23 06:16 DC 05/24/23 06:32 324 MG Vital Signs/I&O 05/24/23 05:50 Temp 35.9 Pulse 90 Resp 16 B/P (MAP) 162/91 (114) Pulse Ox 97 O2 Delivery Room Air Progress Progress Note : Progress Note Seen and evaluated. IV, labs including CBC, CMP, troponin, myoglobin, CRP and COVID and influenza screen ordered. We will get EKG and chest x-ray. ASA 324 mg p.o. and Pepcid 20 mg p.o. ordered. Monitor patient. Differential diagnosis includes cardiac event, uncontrolled diabetes, reflux disease, viral illness, chest wall pain 0753: Chest x-ray reviewed by me and shows no obvious infiltrate or other acute findings on my interpretation. CBC reviewed and grossly normal. CMP reviewed and no significant abnormalities although does have elevated blood sugar. Troponin is negative and myoglobin is negative. Coags are normal. We will repeat troponin at 2-hour willa and if still negative, discharge home would be indicated with follow-up. COVID and influenza are negative. Monitor patient. 0945: Repeat troponin is negative. I have added Toradol 30 mg IV and Protonix 40 mg IV. No indication of cardiac events. This is likely more in his reflux problem. We will have him initiate [id number] Pepcid or the generic famotidine as needed and follow-up with his doctor for further evaluation and recheck as needed. He has had previous colonoscopy and upper endoscopy 1 year ago and that was okay except for ulcerative disease. Discharged home with return precautions. Patient verbalized understanding instructions and agreement with plan. Initial ECG Impression Date: May 24, 2023 Initial ECG Impression Time: 06:19 Initial ECG Rate: 89 Initial ECG Rhythm: Normal Sinus Comment Sinus rhythm with normal axis. No evidence of ST elevation VA. T waves flat throughout. Interpreted by me. Diagnostic Imaging Diagonstic Imaging: Xray Plain Films/CT/US/NM/MRI: chest Comments [facility] [place], [place] NAME: [facility] CHAVEZ [facility] REC#: [id number] PT STATUS: REG ER : 1980 PHYSICIAN: LUPE BARCLAY MD ADMIT DATE: 05/24/23/ER Draft Date of Exam:05/24/23 CHEST 1 VIEW, AP/PA ONLY INDICATION: Chest pain. Time of Exam: 7:04 AM Correlation is made with prior chest 05/16/2023. FINDINGS: The heart size is normal. The pulmonary vascularity is unremarkable. The lungs are clear. No infiltrate, effusion or pneumothorax is detected. IMPRESSION: No acute cardiopulmonary process is detected. Dictated on workstation # [id number] Dict: 05/24/2331 Trans: 05/24/23 0741 AMAURY [id number] Interpreted by: DANIEL MONREAL MD Electronically signed by: Departure Impression Primary Impression: Chest pain Qualified Codes: R07.9 - Chest pain, unspecified Additional Impressions: Upper abdominal pain Chest wall pain Disposition: HOME, SELF-CARE Condition: Stable Departure-Patient Inst. Decision time for Depature: 09:56 Referrals: ZACHARY LEVIN DO (PCP/Family) Primary Care Physician Patient Instructions: Chest Pain (DC), Acid Reflux and GERD in Adults (DC) Add. Discharge Instructions: All discharge instructions reviewed with patient and/or family. Voiced un derstanding. May take Tylenol/acetaminophen 1000 mg every 6-8 hours as needed for pain. You may take ibuprofen 400 mg every 8 hours as needed for pain. Continue home medications. You may add [id number] Pepcid or the generic famotidine 20 mg daily as needed for stomach upset. Follow-up with your doctor for recheck and further evaluation and possible referral to surgeon for evaluation for upper endoscopy if indicated. Return for worse pain, fever, vomiting, weakness, breathing problems or other concerns as needed. Carefully monitor and manage your diabetes. Copy Copies To 1: ZACHARY LEVIN TIMOTHY D MD May 24, 2023 06:28
[2023-05-24 06:54] LABS: BASOPHILS % (AUTO) 1 % (0-10); EOSINOPHILS # (AUTO) 0.1 10^3/uL (0.0-0.3); EOSINOPHILS % (AUTO) 2 % (0-10); HEMATOCRIT 42 % (40-54); HEMOGLOBIN 15.1 g/dL (13.3-17.7); LYMPHOCYTES # (AUTO) 2.4 10^3/uL (1.0-4.0); LYMPHOCYTES % (AUTO) 38 % (12-44); MEAN CORPUSCULAR HEMOGLOBIN 30 pg (25-34); MEAN CORPUSCULAR HGB CONC 36 g/dL (32-36); MEAN CORPUSCULAR VOLUME 85 fL (80-99); MEAN PLATELET VOLUME 11.4 fL (9.0-12.2); MONOCYTES # (AUTO) 0.6 10^3/uL (0.0-1.0); MONOCYTES % (AUTO) 10 % (0-12); NEUTROPHILS % (AUTO) 48 % (42-75); PLATELET COUNT 163 10^3/uL (130-400); WHITE BLOOD COUNT 6.2 10^3/uL (4.3-11.0)
[2023-05-24 07:19] LABS: ALANINE AMINOTRANSFERASE 59 U/L (0-55); ALBUMIN 3.8 GM/DL (3.2-4.5); ALKALINE PHOSPHATASE 77 U/L (40-136); BILIRUBIN,TOTAL 0.5 MG/DL (0.1-1.0); BUN/CREATININE RATIO 18; CALCIUM 9.6 MG/DL (8.5-10.1); CARBON DIOXIDE 21 MMOL/L (21-32); CHLORIDE 104 MMOL/L (98-107); CREATININE SERUM 0.97 MG/DL (0.60-1.30); GFR ESTIMATED 98; GLUCOSE 282 MG/DL (70-105); LIPASE 32 U/L (8-78); MAGNESIUM 2.2 MG/DL (1.6-2.4); SODIUM 134 MMOL/L (135-145); TOTAL PROTEIN 6.3 GM/DL (6.4-8.2)
[2023-05-24 07:20] LABS: INR 0.9 (0.8-1.4); PROTHROMBIN TIME PATIENT 12.5 SEC (12.2-14.7)
--- NOTE | 2023-05-24 07:42 | Diagnostic Imaging Report ---
INDICATION: Chest pain. Time of Exam: 7:04 AM Correlation is made with prior chest 05/16/2023. FINDINGS: The heart size is normal. The pulmonary vascularity is unremarkable. The lungs are clear. No infiltrate, effusion or pneumothorax is detected. IMPRESSION: No acute cardiopulmonary process is detected. Dictated by: Dictated on workstation # [id number]
[2023-05-24] MEDS ORDERED: KETOROLAC INJ 30 MG/ML VIAL IVP STA (09:34)
[2023-05-24] MEDS ORDERED: PANTOPRAZOLE INJECTION 40 MG VIAL IV ONE (09:45)
[2023-05-24 10:09] VITALS: BP 152/95
== END 2023-05-24 10:09 | disposition home or self-care (01) ==
LOC: EDUNIT# 05:47 → ER 05:51
DX: R07.89 Other chest pain (principal); R10.9 Unspecified abdominal pain; E11.9 Type 2 diabetes mellitus 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; E66.9 Obesity, unspecified; F17.210 Nicotine dependence, cigarettes, uncomplicated; Z68.42 Body mass index [BMI] 45.0-49.9, adult; Z20.822 Contact with and (suspected) exposure to COVID-19; Z28.310 Unvaccinated for COVID-19; Z79.4 Long term (current) use of insulin
CPT/HCPCS: 36415; 71045; 80053; 83690; 83735; 83874; 84484; 85025; 85610; 85730; 86141; 87636; 93005; 93041

== ENCOUNTER 2023-06-23 19:58 | Emergency (ER) | payer MEDICARE, MEDICAID ==
[~2023-06-23] VITALS: Ht 180 cm; Wt 150.0 kg
[~2023-06-23 19:58] MED LIST changes: -MECL-149 PO; +MECL-291 PO; -PREG150C46 PO; +PREG150C47 PO
[2023-06-23] MEDS ORDERED: NS IV 1000 ML 1,000 ML IV STA (20:05)
[2023-06-23] MEDS ORDERED: KETOROLAC INJ 30 MG/ML VIAL IVP ONE (20:15)
--- NOTE | 2023-06-23 20:17 | ED General ---
General Chief Complaint: Glucose Problems Stated Complaint: DIABETIC KETOACIDOSIS, SOB, SOUR TASTE, ABD PAIN Source of Information: Patient Exam Limitations: No Limitations (JUDAH BELL) History of Present Illness Date Seen by Provider: Jun 23, 2023 Time Seen by Provider: 20:14 Initial Comments Patient is a 43-year-old male with a history of diabetes who presents to ED for having a vinegar taste over the past 2 days. Patient reports putting off a sour smell. Family and friends noted that he has a odor. Patient reports lower abdominal pain described as sharp with radiation to the back. Pain is radiating to the groin. Denies any current testicle pain, testicle swelling, pain with urination frequent urination or history of kidney stones. Patient reports nausea without vomiting or diarrhea. Ports postnasal drip. Denies chest pain, shortness of breath currently. He does report having some shortness of breath prior as he feels like there is a vinegar taste or a tablet in his throat. States he was seen at the clinic today had negative COVID swab and lab work which is currently pending. History of DKA according to patient. Denies fever, chills, nausea, vomiting, bodyaches, headache, unilateral muscle weakness or sensory changes tingling. Denies taking medication at home. Patient is concerned that he is in DKA (JUDAH BELL) Allergies and Home Medications Allergies Coded Allergies: sertraline (Verified Allergy, Severe, RASH, SWELLING, 04/09/20) "FELT LOOPY" albuterol (Verified Allergy, Unknown, 03/05/23) bupropion (Verified Allergy, Unknown, "CAUSED ME TO BANG MY HEAD ON THE WALL", 04/09/20) buspirone (Verified Allergy, Unknown, THROAT SWELLED, 04/09/20) cephalexin (Verified Allergy, Unknown, HIVES, 04/09/20) clindamycin (Verified Allergy, Unknown, 03/05/23) codeine (Verified Allergy, Unknown, pt tolerated morphine in past, ) semaglutide (Verified Allergy, Unknown, 03/05/23) sulfamethoxazole (Verified Adverse Reaction, Unknown, Itching, 04/09/20) trimethoprim (Verified Adverse Reaction, Unknown, Itching, 04/09/20) Patient Home Medication List Home Medication List Reviewed: Yes (JUDAH BELL) Aspirin (Aspirin EC) 81 Mg Tablet.dr, 81 MG PO DAILY, (Reported) Entered as Reported by: SABAS SILVA on 09/29/21 141 Atorvastatin Calcium (Atorvastatin Calcium) 80 Mg Tablet, 80 MG PO DAILY, (Reported) Entered as Reported by: ZACHARY HATCH on 03/03/23 122 Biotin (Biotin) 10 Mg Tablet, 10 MG PO DAILY, (Reported) Entered as Reported by: ZACHARY HATCH on 03/03/23 122 Cetirizine HCl (Cetirizine HCl) 10 Mg Tablet, 10 MG PO DAILY PRN for ALLERGIES, (Reported) Entered as Reported by: SABAS SILVA on 09/29/21 141 Dicyclomine HCl (Dicyclomine HCl) 20 Mg Tablet, 20 MG PO QID PRN for GI SPASMS, (Reported) Entered as Reported by: ZACHARY HATCH on 06/11/22 105 Empagliflozin/Metformin HCl (Synjardy Xr 12.5-1,000 mg Tab) 12.5 Mg-1,000 Mg Tab.bp.24h, 1 EA PO DAILY, (Reported) Entered as Reported by: ZACHARY HATCH on 03/03/23 122 Hydrochlorothiazide (Hydrochlorothiazide) 25 Mg Tablet, 25 MG PO DAILY PRN for FLUID RETENTION, (Reported) Entered as Reported by: SABAS SILVA on 09/29/21 141 Ibuprofen (Ibuprofen) 800 Mg Tablet, 800 MG PO Q8H PRN for PAIN-MILD (1-4), (Reported) Entered as Reported by: ZACHARY HATCH on 03/03/23 1225 Insulin Regular, Human (Humulin R U-500 Kwikpen) 500/Ml (3) Insuln.pen, 225 UNIT SQ AC, (Reported) Entered as Reported by: ZACHARY HATCH on 03/03/23 122 Lisinopril (Lisinopril) 40 Mg Tablet, 40 MG PO DAILY, (Reported) Entered as Reported by: ZACHARY HATCH on 06/11/22 1055 Mirtazapine (Mirtazapine) 30 Mg Tablet, 30 MG PO HS, (Reported) Entered as Reported by: ZACHARY HATCH on 03/03/23 1225 Pantoprazole Sodium (Pantoprazole Sodium) 40 Mg Tablet.dr, 40 MG PO DAILY, (Reported) Entered as Reported by: TRISTON BETH on 04/09/20 1431 Pregabalin (Pregabalin) 150 Mg Capsule, 150 MG PO BID PRN for NERVE PAIN, (Reported) Entered as Reported by: ZACHARY HATCH on 12/04/20 1538 Tirzepatide (Mounjaro) 5 Mg/0.5 Ml Pen.injctr, 5 MG SQ SUN, (Reported) Entered as Reported by: ZACHARY HATCH on 03/03/23 1225 Tizanidine HCl (Tizanidine HCl) 4 Mg Tablet, 4 MG PO TID PRN for MUSCLE SPASMS, (Reported) Entered as Reported by: ZACHARY HATCH on 06/11/22 1055 Review of Systems Review of Systems Constitutional: No chills, No diaphoresis, No fever, No malaise, No weakness EENTM: No ear pain, No blurred vision, No double vision Respiratory: No cough, No dyspnea on exertion Cardiovascular: No chest pain Gastrointestinal: abdominal pain; No diarrhea; nausea; No vomiting Genitourinary: No decreased output, No discharge, No dysuria, No frequency, No hematuria, No hesitancy Musculoskeletal: back pain; No joint pain, No muscle pain, No muscle stiffness Skin: No change in color, No change in hair/nails (JUDAH BELL) All Other Systems Reviewed Negative Unless Noted: Yes (JUDAH BELL) Past Azbttoq-Dxirtu-Bmjrax Hx Immunizations Up To Date Tetanus Booster (TDap): More than 5yrs PED Vaccines UTD: No First/Initial COVID19 Vaccinat: N/A Second COVID19 Vaccination Sundar: NONE Third COVID19 Vaccination Date: NONE (JUDAH BELL) Seasonal Allergies Seasonal Allergies: Yes (JUDAH BELL) Past Medical History Surgery/Hospitalization HX: HTN, IDDM, ANXIETY Surgeries: Yes (HYPOGONADISM SURGERY ,/UNDESCENDED TESTICLE SURGERY; ENDOSCOPIES) Gallbladder, Testicular Respiratory: Yes Asthma Currently Using CPAP: No Currently Using BIPAP: No Cardiac: Yes High Cholesterol, Hypertension, Palpitations Neurological: Yes Neuropathy Reproductive Disorders: Yes (HYPOGONADISM sx as an infant) Sexually Transmitted Disease: No HIV/AIDS: No Genitourinary: No Gastrointestinal: Yes (ENDOSCOPIES) Gastroesophageal Reflux, Diverticulosis, Esophagitis Musculoskeletal: Yes Arthritis Endocrine: Yes (MORBID OBESITY; DM TYPE 2 (INSULIN AND PO)-LONG HISTORY OF NON-COMPLIANCE) Diabetes, Insulin dep HEENT: Yes (GLASSES) Loss of Vision: Denies Hearing Impairment: Denies Cancer: No Psychosocial: Yes ADD/ADHD, Anxiety, Depression Integumentary: No Blood Disorders: No Adverse Reaction/Blood Tranf: No (N/A) (JUDAH BELL) Family Medical History Arthritis 19 MOTHER Congenital heart disease Diabetes mellitus 19 FATHER 19 MOTHER FH: brain aneurysm 19 FATHER (cause of - 09/13/2015) Glaucoma 19 FATHER Hypertension 19 FATHER 19 MOTHER Psychosocial problem 19 MOTHER (depression) No Pertinent Family Hx SOCIAL HISTORY: -SMOKES UP TO 1 PPD -VAPES NICOTINE DAILY ALSO -ETOH--OCCASIONAL USE -DRUGS--SMOKES MARIJUANA DAILY (JUDAH BELL) Physical Exam Vital Signs Vital Signs - First Documented 06/23/23 20:06 Temp 37.6 Pulse 115 Resp 14 B/P (MAP) 169/99 (122) Pulse Ox 97 O2 Delivery Room Air (GARRETT,TRISTEN K DO) Vital Signs Capillary Refill : (JUDAH BELL) Height, Weight, BMI Height: 5'11.00" Weight: 324lbs. 0.0oz. 146.518600jc; 47.00 BMI Method:Stated General Appearance: No Apparent Distress, WD/WN Eyes: Bilateral Eye Normal Inspection, Bilateral Eye PERRL, Bilateral Eye EOMI HEENT: PERRL/EOMI, TMs Normal, Normal ENT Inspection, Pharynx Normal Neck: Full Range of Motion, Normal Inspection, Non Tender, Supple Respiratory: Chest Non Tender, Lungs Clear, Normal Breath Sounds, No Accessory Muscle Use, No Respiratory Distress Cardiovascular: Regular Rate, Rhythm, No Edema, No Gallop Gastrointestinal: Normal Bowel Sounds, No Organomegaly, No Pulsatile Mass, Non Tender, Soft, Tenderness (Suprapubic tenderness.) Back: CVA Tenderness (L), CVA Tenderness (R) Extremity: Normal Capillary Refill, Normal Inspection, Normal Range of Motion, Non Tender Neurologic/Psychiatric: Alert, Oriented x3, No Motor/Sensory Deficits, Normal Mood/Affect, interactive marketing strategist II-XII Norm as Tested Skin: Normal Color, Warm/Dry (JUDAH BELL) Progress/Results/Core Measures Suspected Sepsis SIRS Temperature: Pulse: Respiratory Rate: Laboratory Tests 06/23/23 20:14: White Blood Count 8.0 Blood Pressure / Mean: Laboratory Tests 06/23/23 20:14: Creatinine 1.11, Platelet Count 196, Total Bilirubin 0.5 (JUDAH BELL) Results/Orders Lab Results Laboratory Tests Test 06/23/23 20:08 06/23/23 20:14 Range/Units Glucometer 276 H 70-110 MG/DL White Blood Count 8.0 4.3-11.0 10^3/uL Red Blood Count 5.16 4.30-5.52 10^6/uL Hemoglobin 15.4 13.3-17.7 g/dL Hematocrit 44 40-54 % Mean Corpuscular Volume 85 80-99 fL Mean Corpuscular Hemoglobin 30 25-34 pg Mean Corpuscular Hemoglobin Concent 35 32-36 g/dL Red Cell Distribution Width 12.4 10.0-14.5 % Platelet Count 196 130-400 10^3/uL Mean Platelet Volume 11.3 9.0-12.2 fL Immature Granulocyte % (Auto) 1 % Neutrophils (%) (Auto) 58 42-75 % Lymphocytes (%) (Auto) 32 12-44 % Monocytes (%) (Auto) 8 0-12 % Eosinophils (%) (Auto) 1 0-10 % Basophils (%) (Auto) 0 0-10 % Neutrophils # (Auto) 4.6 1.8-7.8 10^3/uL Lymphocytes # (Auto) 2.6 1.0-4.0 10^3/uL Monocytes # (Auto) 0.6 0.0-1.0 10^3/uL Eosinophils # (Auto) 0.1 0.0-0.3 10^3/uL Basophils # (Auto) 0.0 0.0-0.1 10^3/uL Immature Granulocyte # (Auto) 0.1 0.0-0.1 10^3/uL Urine Color YELLOW Urine Clarity CLEAR Urine pH 5.5 5-9 Urine Specific [place] 1.020 1.016-1.022 Urine Protein NEGATIVE NEGATIVE Urine Glucose (UA) 2+ H NEGATIVE Urine Ketones 1+ H NEGATIVE Urine Nitrite NEGATIVE NEGATIVE Urine Bilirubin NEGATIVE NEGATIVE Urine Urobilinogen 0.2 < = 1.0 MG/DL Urine Leukocyte Esterase NEGATIVE NEGATIVE Urine RBC (Auto) NEGATIVE NEGATIVE Urine RBC RARE /HPF Urine WBC NONE /HPF Urine Squamous Epithelial Cells 2-5 /HPF Urine Crystals NONE /LPF Urine Bacteria TRACE /HPF Urine Casts NONE /LPF Urine Mucus NEGATIVE /LPF Urine Culture Indicated NO Venous Blood pH 7.35 7.31-7.41 Venous Blood Partial Pressure CO2 42 40-52 MMHG Venous Blood HCO3 22 22-28 MMOL/L Sodium Level 138 135-145 MMOL/L Potassium Level 3.9 3.6-5.0 MMOL/L Chloride Level 105 98-107 MMOL/L Carbon Dioxide Level 20 L 21-32 MMOL/L Anion Gap 13 5-14 MMOL/L Blood Urea Nitrogen 16 7-18 MG/DL Creatinine 1.11 0.60-1.30 MG/DL Estimat Glomerular Filtration Rate 83 BUN/Creatinine Ratio 14 Glucose Level 268 H 70-105 MG/DL Calcium Level 9.4 8.5-10.1 MG/DL Corrected Calcium 9.3 8.5-10.1 MG/DL Total Bilirubin 0.5 0.1-1.0 MG/DL Aspartate Amino Transf (AST/SGOT) 48 H 5-34 U/L Alanine Aminotransferase (ALT/SGPT) 73 H 0-55 U/L Alkaline Phosphatase 80 40-136 U/L Total Protein 6.6 6.4-8.2 GM/DL Albumin 4.1 3.2-4.5 GM/DL Lipase 23 8-78 U/L Beta-Hydroxybutyrate (Chem panel) 0.17 0.00-0.27 MMOL/L (GARRETT,TRISTEN K DO) Medications Given in ED Current Medications Medications Dose Ordered Sig/Nikia Route Start Time Stop Time Status Last Admin Dose Admin Ketorolac Tromethamine 30 mg ONCE ONCE IVP 06/23/23 20:15 06/23/23 20:16 DC 06/23/23 20:20 30 MG (GARRETT,TRISTEN K DO) Vital Signs/I&O 06/23/23 06/23/23 20:06 21:26 Temp 37.6 36.9 Pulse 115 94 Resp 14 14 B/P (MAP) 169/99 (122) 157/94 Pulse Ox 97 99 O2 Delivery Room Air Room Air (TRISTEN TUCKER DO) Vital Signs/I&O Capillary Refill : (JUDAH BELL) Departure Communication (PCP) Reviewed previous ER visits, H&P, lab testing. Differential diagnosis, cystitis, hyperglycemia, DKA, GERD, muscular pain, diverticulitis, colitis, viral syndrome. Patient reports a sour taste as well as a sour odor. Obtain generalized lab work, VBG, beta hydroxybutyrate, urinalysis CT abdomen pelvis. Reports pain in bilateral flank lower back and groin area. Pain does radiate into the groin. He refused testicle or exam. States his testicles do not hurt on palpation but does feel the radiating pain. CBC CMP was grossly unremarkable. Blood sugar 268. Does not appear in DKA. Normal anion gap. Slight elevated liver enzymes. Urinalysis was negative for infection but did note some ketones in blood sugar. Did receive a liter of fluid and was given Toradol with improvement of pain. Urinalysis negative for infection. CT abdomen and pelvis which did not note any acute abnormality. Does have a history of acid reflux and GERD. Suggest the sour taste may be associated to this. He has no upper abdominal pain or chest pain at this time. Oropharynx was patent. Exam was otherwise benign. Suggest PPI, Tums. Currently taking Gaviscon. Since patient is refusing testicle exam suggest ultrasound of his testicles. Not necessarily concern for torsion however other etiologies would be orchitis, epididymitis, variocele. Patient states he will follow-up with the clinic in 2 days for his schedule appointment before proceeding with this at this time. He states he is feeling much better and would like to be discharged. Continue monitor your blood sugar. Stay hydrated. If any worsening symptoms such as testicle pain to return back to ED (JUDAH BELL) Impression Primary Impression: Hyperglycemia Additional Impression: Abdominal pain Disposition: HOME, SELF-CARE Condition: Stable Departure-Patient Inst. Decision time for Depature: 20:58 (JUDAH BELL) Referrals: ZACHARY LEVIN DO (PCP/Family) Primary Care Physician Patient Instructions: Diabetes and diet Add. Discharge Instructions: Recommend staying hydrated. Alternate Tylenol ibuprofen. Recommend Protonix. If continued groin pain I suggest getting an ultrasound. Recommend follow-up your PCP for further evaluation. If any worsening symptoms return back to ED. All discharge instructions reviewed with patient and/or family. Voiced understanding. ATTENDING PHYSICIAN NOTE: I WAS PHYSICALLY PRESENT ER PHYSICIAN, BUT I WAS NOT INVOLVED IN ANY DECISION MAKING OR ANY CARE OF THIS PATIENT, AND I AM NOT COLLABORATING PHYSICIAN. (TRISTEN TUCKER DO) JUDAH BELL Jun 23, 2023 20:17 TRISTEN TUCKER DO Jun 23, 2023 22:29
[2023-06-23 20:25] LABS: BASOPHILS % (AUTO) 0 % (0-10); EOSINOPHILS # (AUTO) 0.1 10^3/uL (0.0-0.3); EOSINOPHILS % (AUTO) 1 % (0-10); HEMATOCRIT 44 % (40-54); HEMOGLOBIN 15.4 g/dL (13.3-17.7); LYMPHOCYTES # (AUTO) 2.6 10^3/uL (1.0-4.0); LYMPHOCYTES % (AUTO) 32 % (12-44); MEAN CORPUSCULAR HEMOGLOBIN 30 pg (25-34); MEAN CORPUSCULAR HGB CONC 35 g/dL (32-36); MEAN CORPUSCULAR VOLUME 85 fL (80-99); MEAN PLATELET VOLUME 11.3 fL (9.0-12.2); MONOCYTES # (AUTO) 0.6 10^3/uL (0.0-1.0); MONOCYTES % (AUTO) 8 % (0-12); NEUTROPHILS # (AUTO) 4.6 10^3/uL (1.8-7.8); NEUTROPHILS % (AUTO) 58 % (42-75); PLATELET COUNT 196 10^3/uL (130-400)
[2023-06-23 20:30] LABS: BACTERIA,URINE TRACE /HPF; BILIRUBIN,URINE NEGATIVE (NEGATIVE); CLARITY,URINE CLEAR; COLOR,URINE YELLOW; GLUCOSE, URINE (UA) 2+ (NEGATIVE); KETONES,URINE 1+ (NEGATIVE); LEUKOCYTE ESTERASE ,URINE NEGATIVE (NEGATIVE); NITRITE,URINE NEGATIVE (NEGATIVE); PH,URINE 5.5 (5-9); PROTEIN,URINE NEGATIVE (NEGATIVE); RBC,URINE RARE /HPF
[2023-06-23 20:36] LABS: ALBUMIN 4.1 GM/DL (3.2-4.5)
[2023-06-23 20:37] LABS: POTASSIUM 3.9 MMOL/L (3.6-5.0)
[2023-06-23 20:38] LABS: CALCIUM 9.4 MG/DL (8.5-10.1)
[2023-06-23 20:39] LABS: TOTAL PROTEIN 6.6 GM/DL (6.4-8.2)
[2023-06-23 20:41] LABS: BILIRUBIN,TOTAL 0.5 MG/DL (0.1-1.0)
[2023-06-23 20:43] LABS: CREATININE SERUM 1.11 MG/DL (0.60-1.30)
--- NOTE | 2023-06-23 20:56 | Diagnostic Imaging Report ---
CT ABD/PELVIS WO(KIDNEY STONE) TECHNIQUE: Unenhanced CT imaging of the abdomen and pelvis was performed. 2-D reformats are created and submitted for interpretation. Automatic exposure controls were utilized to optimize patient dose. INDICATION: Lower abdominal pain. Flank pain. COMPARISON: 03/28/2022 FINDINGS: Lower chest: The lung bases are clear. No pericardial or pleural effusion. Peritoneum: No free intraperitoneal air or fluid. Liver and biliary system: The liver is enlarged measuring 25 cm. Diffuse low-attenuation liver is indicative of steatosis. No concerning focal hepatic lesion. Cholecystectomy. Spleen and Pancreas: Spleen is normal. Unenhanced pancreas is grossly normal. Adrenals: Normal. tract: No renal or ureteral calculi. No obstructive uropathy. Urinary bladder is decompressed and therefore not well evaluated. Prostate is not enlarged. GI tract: Stomach is filled with fluid and has no wall thickening. No bowel obstruction. No pericolonic inflammatory changes. The descending and sigmoid colon diverticulosis without diverticulitis. There are also a few scattered diverticula within the ascending colon. No features of diverticulitis. The appendix is normal. Vasculature and Lymph nodes: Normal caliber aorta. No abdominal or pelvic lymphadenopathy. Musculoskeletal: No concerning osseous lesion. IMPRESSION: 1. No urinary tract calculi or obstructive uropathy. 2. Hepatomegaly diffuse steatosis. 3. Colonic diverticulosis without diverticulitis. Dictated by: Dictated on workstation # [id number]
[2023-06-23 21:26] VITALS: BP 157/94
== END 2023-06-23 21:28 | disposition home or self-care (01) ==
LOC: EDUNIT# 19:58 → ER 20:00
DX: E11.65 Type 2 diabetes mellitus with hyperglycemia (principal); R10.30 Lower abdominal pain, unspecified; E66.01 Morbid (severe) obesity due to excess calories; F17.210 Nicotine dependence, cigarettes, uncomplicated; F17.290 Nicotine dependence, other tobacco product, uncomplicated; Z68.42 Body mass index [BMI] 45.0-49.9, adult; Z79.4 Long term (current) use of insulin
CPT/HCPCS: 36415; 74176; 80053; 81000; 82010; 82805; 82947; 83690; 85025

== ENCOUNTER 2023-07-19 05:28 | Emergency (ER) | payer MEDICARE, MEDICAID ==
[~2023-07-19] VITALS: Ht 177.8 cm; Wt 150.0 kg
[2023-07-19] MEDS ORDERED: ONDANSETRON INJECTION 4 MG/2 ML (SDV) IVP ONE (05:45)
[2023-07-19] MEDS ORDERED: NS IV 1000 ML 1,000 ML IV SCH (05:45)
--- NOTE | 2023-07-19 05:54 | ED GI ---
General Stated Complaint: ITCHY EYES,ABD PX,BAD BREATH Source of Information: Patient, Old Records (TRISTEN TUCKER DO) History of Present Illness Date Seen by Provider: Jul 19, 2023 Time Seen by Provider: 05:37 Initial Comments PT ARRIVES VIA POV FROM HOME C/O GENERALIZED ABDOMINAL PAIN THAT WRAPS ALL THE WAY AROUND HIS BACK--FOR "3-4 DAYS" --THIS IS AN ONGOING COMPLAINT HE WAS HERE 06/23/23 FOR THIS SAME COMPLAINT. WORK UP DID NOT SHOW ANY ACUTE PROCESS HE STATES HE WENT TO [facility] "3 OR 4 WEEKS AGO" AND HAD LAB DONE AND WAS TOLD HE HAD "ANTIBODIES TO HEPATITIS A" STATES PAIN GOT BETTER, THEN CAME BACK A FEW DAYS AGO. HE HAS NOT ATTEMPTED TO SEE ANYONE UNTIL TODAY SINCE THE PAIN RETURNED HE HAS NOT TAKEN ANYTHING FOR SYMPTOMS + NAUSEA, NO VOMITING. HAS HAD DIARRHEA "HERE AND THERE" --LAST BM WAS "A COUPLE OF HOURS AGO" DECREASED APPETITE NO KNOWN FEVER NO URINARY SYMPTOMS AND VOIDING A NORMAL AMOUNT STATES HE "HAS ALOT OF ACID" AND IT CAUSES A VINEGAR TASTE IN THE BACK OF HIS THROAT ALSO C/O "BAD BREATH" NO THROAT PAIN NO CHEST PAIN OR SHORTNESS OF BREATH PT HAD ALL THESE SAME COMPLAINTS AT HIS LAST ER VISIT 06/23/23 PT WITH INSULIN DEPENDENT DIABETES, HE HAS NOT CHECKED HIS BLOOD SUGAR, BUT STATES "I'VE BEEN TAKING MY SHOTS" ATE MASHED POTATOES 2 HOURS AGO, AND TOOK "220 UNITS" OF UNKNOWN TYPE OF INSULIN AT THE SAME TIME PT WITH A MULTITUDE OF ER VISITS FOR VARIOUS COMPLAINTS. PCP: DR. LEVIN AT [facility] (TRISTEN TUCKER ) Allergies and Home Medications Allergies Coded Allergies: sertraline (Verified Allergy, Severe, RASH, SWELLING, 04/09/20) "FELT LOOPY" albuterol (Verified Allergy, Unknown, 03/05/23) bupropion (Verified Allergy, Unknown, "CAUSED ME TO BANG MY HEAD ON THE WALL", 04/09/20) buspirone (Verified Allergy, Unknown, THROAT SWELLED, 04/09/20) cephalexin (Verified Allergy, Unknown, HIVES, 04/09/20) clindamycin (Verified Allergy, Unknown, 03/05/23) codeine (Verified Allergy, Unknown, pt tolerated morphine in past, 06/10/22) semaglutide (Verified Allergy, Unknown, 03/05/23) sulfamethoxazole (Verified Adverse Reaction, Unknown, Itching, 04/09/20) trimethoprim (Verified Adverse Reaction, Unknown, Itching, 04/09/20) Patient Home Medication List Home Medication List Reviewed: Yes (MILO KHAN MD) Aspirin (Aspirin EC) 81 Mg Tablet.dr, 81 MG PO DAILY, (Reported) Entered as Reported by: SABAS SILVA on 09/29/21 1415 Atorvastatin Calcium (Atorvastatin Calcium) 80 Mg Tablet, 80 MG PO DAILY, (Reported) Entered as Reported by: ZACHARY HATCH on 03/03/23 1225 Biotin (Biotin) 10 Mg Tablet, 10 MG PO DAILY, (Reported) Entered as Reported by: ZACHARY HATCH on 03/03/23 1225 Cetirizine HCl (Cetirizine HCl) 10 Mg Tablet, 10 MG PO DAILY PRN for ALLERGIES, (Reported) Entered as Reported by: SABAS SILVA on 09/29/21 1416 Dicyclomine HCl (Dicyclomine HCl) 20 Mg Tablet, 20 MG PO QID PRN for GI SPASMS, (Reported) Entered as Reported by: ZACHARY HATCH on 06/11/22 1055 Empagliflozin/Metformin HCl (Synjardy Xr 12.5-1,000 mg Tab) 12.5 Mg-1,000 Mg Tab.bp.24h, 1 EA PO DAILY, (Reported) Entered as Reported by: ZACHARY HATCH on 03/03/23 1225 Hydrochlorothiazide (Hydrochlorothiazide) 25 Mg Tablet, 25 MG PO DAILY PRN for FLUID RETENTION, (Reported) Entered as Reported by: SABAS SILVA on 09/29/21 1415 Ibuprofen (Ibuprofen) 800 Mg Tablet, 800 MG PO Q8H PRN for PAIN-MILD (1-4), (Reported) Entered as Reported by: ZACHARY HATCH on 03/03/23 1225 Insulin Regular, Human (Humulin R U-500 Kwikpen) 500/Ml (3) Insuln.pen, 225 UNIT SQ AC, (Reported) Entered as Reported by: ZACHARY HATCH on 03/03/23 1225 Lisinopril (Lisinopril) 40 Mg Tablet, 40 MG PO DAILY, (Reported) Entered as Reported by: ZACHARY HATCH on 06/11/22 1055 Mirtazapine (Mirtazapine) 30 Mg Tablet, 30 MG PO HS, (Reported) Entered as Reported by: ZACHARY HATCH on 03/03/23 1225 Pantoprazole Sodium (Pantoprazole Sodium) 40 Mg Tablet.dr, 40 MG PO DAILY, (Reported) Entered as Reported by: TRISTON BETH on 04/09/20 1431 Pregabalin (Pregabalin) 150 Mg Capsule, 150 MG PO BID PRN for NERVE PAIN, (Reported) Entered as Reported by: ZACHARY HATCH on 12/04/20 1538 Tirzepatide (Mounjaro) 5 Mg/0.5 Ml Pen.injctr, 5 MG SQ SUN, (Reported) Entered as Reported by: ZACHARY HATCH on 03/03/23 1225 Tizanidine HCl (Tizanidine HCl) 4 Mg Tablet, 4 MG PO TID PRN for MUSCLE SPASMS, (Reported) Entered as Reported by: ZACHARY HATCH on 06/11/22 1055 Review of Systems Review of Systems Constitutional: see HPI, other (DECREASED APPETITE) EENTM: See HPI; No Throat Pain Respiratory: No Symptoms Reported Cardiovascular: No Symptoms Reported Gastrointestinal: See HPI, Abdominal Pain; Denies Constipated; Diarrhea, Nausea, Poor Appetite; Denies Vomiting Genitourinary: No Symptoms Reported Musculoskeletal: see HPI, back pain Skin: no symptoms reported Psychiatric/Neurological: No Symptoms Reported Endocrine: See HPI Hematologic/Lymphatic: No Symptoms Reported (TRISTEN TUCKER DO) Past Hkeifhl-Ajrsdi-Sowiaf Hx Immunizations Up To Date Tetanus Booster (TDap): More than 5yrs PED Vaccines UTD: No First/Initial COVID19 Vaccinat: N/A Second COVID19 Vaccination Sundar: N/A Third COVID19 Vaccination Date: N/A (TRISTEN TUCKER DO) Seasonal Allergies Seasonal Allergies: Yes (TRISTEN TUCKER DO) Past Medical History Surgery/Hospitalization HX: CHOLECYSTECTOMY, TESTICULAR SX, HTN, IDDM, ANXIETY, DEPRESSION, NEUROPATHY, GERD, ADD/ADHD Surgeries: Yes (HYPOGONADISM SURGERY INFANT,/UNDESCENDED TESTICLE SURGERY; ENDOSCOPIES) Gallbladder, Testicular Respiratory: Yes Asthma Currently Using CPAP: No Currently Using BIPAP: No Cardiac: Yes High Cholesterol, Hypertension, Palpitations Neurological: Yes Neuropathy Reproductive Disorders: Yes (HYPOGONADISM sx as an ) Sexually Transmitted Disease: No HIV/AIDS: No Genitourinary: No Gastrointestinal: Yes (ENDOSCOPIES) Gastroesophageal Reflux, Diverticulosis, Esophagitis Musculoskeletal: Yes Arthritis Endocrine: Yes (MORBID OBESITY; DM TYPE 2 (INSULIN AND PO)-LONG HISTORY OF NON- COMPLIANCE) Diabetes, Insulin dep HEENT: Yes (GLASSES) Loss of Vision: Denies Hearing Impairment: Denies Cancer: No Psychosocial: Yes ADD/ADHD, Anxiety, Depression Integumentary: No Blood Disorders: No Adverse Reaction/Blood Tranf: No (N/A) (TRISTEN TUCKER DO) Family Medical History Arthritis 19 MOTHER Congenital heart disease Diabetes mellitus 19 FATHER 19 MOTHER FH: brain aneurysm 19 FATHER (cause of - 09/13/2015) Glaucoma 19 FATHER Hypertension 19 FATHER 19 MOTHER Psychosocial problem 19 MOTHER (depression) No Pertinent Family Hx SOCIAL HISTORY: -SMOKES UP TO 1 PPD -VAPES NICOTINE DAILY ALSO -ETOH--OCCASIONAL USE -DRUGS--SMOKES MARIJUANA DAILY (TRISTEN TUCKER DO) Physical Exam Vital Signs Vital Signs - First Documented 07/19/23 05:40 Temp 36.1 Pulse 102 Resp 18 B/P (MAP) 129/86 (100) Pulse Ox 96 O2 Delivery Room Air (MILO KHAN MD) Vital Signs Capillary Refill : (TRISTEN TUCKER DO) Height/Weight/BMI Height: 5'11.00" Weight: 324lbs. 0.0oz. 146.354830pi; 46.00 BMI Method:Stated General Appearance: WD/WN, no apparent distress, obese (MORBIDLY OBESE, UNKEMPT. HAIR DYED BLACK TODAY. DOES NOT APPEAR ACUTELY ILL OR TO BE IN ANY DISC OMFORT OR DISTRESS. WALKS WITHOUT DIFFICULTY. ) HEENT: PERRL/EOMI, TMs normal, pharynx normal Neck: normal inspection Respiratory: normal breath sounds, no respiratory distress, no accessory muscle use Cardiovascular: regular rate, rhythm, no murmur Gastrointestinal: normal bowel sounds, soft, tenderness (MILD DIFFUSE TENDERNESS. 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 nml as tested, no motor/sensory deficits, alert, normal mood/affect, oriented x 3 Skin: normal color, warm/dry (GARRETTTRISTEN Stephen FERNANDEZ) Focused Exam Lactate Level 07/19/23 05:43: Lactic Acid Level 1.41 (MILO KHAN MD) Lactic Acid Level Laboratory Tests Test 07/19/23 05:43 Lactic Acid Level 1.41 MMOL/L (0.50-2.00) (MILO KHAN MD) Progress/Results/Core Measures Results/Orders Lab Results Laboratory Tests Test 07/19/23 05:40 07/19/23 05:43 07/19/23 05:49 Range/Units Venous Blood pH 7.36 7.31-7.41 Venous Blood Partial Pressure CO2 37 L 40-52 MMHG Venous Blood HCO3 21 L 22-28 MMOL/L Influenza Type A (RT-PCR) Not Detected Not Detecte Influenza Type B (RT-PCR) Not Detected Not Detecte SARS-CoV-2 RNA (RT-PCR) Not Detected Not Detecte Group A Streptococcus Screen Not Detected NotDetected White Blood Count 9.0 4.3-11.0 10^3/uL Red Blood Count 5.57 H 4.30-5.52 10^6/uL Hemoglobin 16.8 13.3-17.7 g/dL Hematocrit 47 40-54 % Mean Corpuscular Volume 84 80-99 fL Mean Corpuscular Hemoglobin 30 25-34 pg Mean Corpuscular Hemoglobin Concent 36 32-36 g/dL Red Cell Distribution Width 12.4 10.0-14.5 % Platelet Count 225 130-400 10^3/uL Mean Platelet Volume 11.8 9.0-12.2 fL Immature Granulocyte % (Auto) 2 % Neutrophils (%) (Auto) 56 42-75 % Lymphocytes (%) (Auto) 35 12-44 % Monocytes (%) (Auto) 6 0-12 % Eosinophils (%) (Auto) 1 0-10 % Basophils (%) (Auto) 1 0-10 % Neutrophils # (Auto) 5.0 1.8-7.8 10^3/uL Lymphocytes # (Auto) 3.1 1.0-4.0 10^3/uL Monocytes # (Auto) 0.6 0.0-1.0 10^3/uL Eosinophils # (Auto) 0.1 0.0-0.3 10^3/uL Basophils # (Auto) 0.1 0.0-0.1 10^3/uL Immature Granulocyte # (Auto) 0.2 H 0.0-0.1 10^3/uL Sodium Level 133 L 135-145 MMOL/L Potassium Level 4.2 3.6-5.0 MMOL/L Chloride Level 103 98-107 MMOL/L Carbon Dioxide Level 18 L 21-32 MMOL/L Anion Gap 12 5-14 MMOL/L Blood Urea Nitrogen 20 H 7-18 MG/DL Creatinine 0.95 0.60-1.30 MG/DL Estimat Glomerular Filtration Rate 101 BUN/Creatinine Ratio 21 Glucose Level 343 H 70-105 MG/DL Lactic Acid Level 1.41 0.50-2.00 MMOL/L Calcium Level 10.0 8.5-10.1 MG/DL Corrected Calcium 9.8 8.5-10.1 MG/DL Magnesium Level 2.2 1.6-2.4 MG/DL Total Bilirubin 0.6 0.1-1.0 MG/DL Aspartate Amino Transf (AST/SGOT) 28 5-34 U/L Alanine Aminotransferase (ALT/SGPT) 45 0-55 U/L Alkaline Phosphatase 78 40-136 U/L Ammonia 46 H 11-32 UMOL/L Total Protein 7.4 6.4-8.2 GM/DL Albumin 4.3 3.2-4.5 GM/DL Amylase Level 52 25-125 U/L Lipase 45 8-78 U/L Beta-Hydroxybutyrate (Chem panel) 0.81 H 0.00-0.27 MMOL/L Monoscreen NEGATIVE NEGATIVE Urine Color YELLOW Urine Clarity CLEAR Urine pH 5.0 5-9 Urine Specific [place] 1.015 L 1.016-1.022 Urine Protein NEGATIVE NEGATIVE Urine Glucose (UA) 3+ H NEGATIVE Urine Ketones 2+ H NEGATIVE Urine Nitrite NEGATIVE NEGATIVE Urine Bilirubin 1+ H NEGATIVE Urine Urobilinogen 0.2 < = 1.0 MG/DL Urine Leukocyte Esterase NEGATIVE NEGATIVE Urine RBC (Auto) TRACE H NEGATIVE Urine RBC 0-2 /HPF Urine WBC 0-2 /HPF Urine Squamous Epithelial Cells 5-10 /HPF Urine Crystals NONE /LPF Urine Bacteria TRACE /HPF Urine Casts NONE /LPF Urine Mucus NEGATIVE /LPF Urine Culture Indicated NO Urine Opiates Screen NEGATIVE NEGATIVE Urine Oxycodone Screen NEGATIVE NEGATIVE Urine Methadone Screen NEGATIVE NEGATIVE Urine Propoxyphene Screen NEGATIVE Urine Barbiturates Screen NEGATIVE NEGATIVE Ur Tricyclic Antidepressants Screen NEGATIVE NEGATIVE Urine Phencyclidine Screen NEGATIVE NEGATIVE Urine Amphetamines Screen NEGATIVE NEGATIVE Urine Methamphetamines Screen NEGATIVE NEGATIVE Urine Benzodiazepines Screen NEGATIVE NEGATIVE Urine Cocaine Screen NEGATIVE NEGATIVE Urine Cannabinoids Screen NEGATIVE NEGATIVE (MILO KHAN MD) My Orders Orders - MILO KHAN MD Dicyclomine Injection (Dicyclomine Injec (07/19/23 07:11) (MILO KHAN MD) Medications Given in ED Current Medications Medications Dose Ordered Sig/Nikia Route Start Time Stop Time Status Last Admin Dose Admin Ondansetron HCl 4 mg ONCE ONCE IVP 07/19/23 05:45 07/19/23 05:48 DC 07/19/23 05:54 4 MG (MILO KHAN MD) Vital Signs/I&O 07/19/23 05:40 Temp 36.1 Pulse 102 Resp 18 B/P (MAP) 129/86 (100) Pulse Ox 96 O2 Delivery Room Air (MILO KHAN MD) Progress Progress Note : Progress Note VITALS ON ARRIVAL: TEMP 36.1=97.0, HR 102, RR 18, BP 129/86, O2 SAT 96% ON ROOM AIR ACCUCHECK 324 GIVEN: -IV FLUIDS -ZOFRAN 0600--CARE TURNED OVER TO DR. KHAN AT SHIFT CHANGE. ALL STUDIES PENDING AT THIS TIME. (TRISTEN TUCKER DO) Progress Note : Time: 07:15 Progress Note Patient care assumed at shift change from Dr. TUCKER. Patient reexamined, resting comfortably lying on his left side. Complains of occasional sharp bilateral lower quadrant abdominal pain as well as pain in the "small of his back". Examination is unremarkable, he is morbidly obese. Abdomen is soft, no peritoneal findings such as rebound tenderness or involuntary guarding. Bowel sounds are present. Vital signs are stable. Labs independently reviewed and interpreted by me. His CBC is completely normal. Chem-12 remarkable for mildly decreased CO2 at 18. His anion gap is normal at 12. Blood sugar elevated at 343. Renal and liver functions are normal. His beta hydroxybutyrate level is 0.81. Venous blood gas shows pH of 7.36 with bicarb of 21. Urine drug screen ordered by Dr. TUCKER is negative. Urinalysis negative for infection. She additionally ordered an ammonia level which is 46. COVID, flu, Monospot, strep screen all negative. Patient has been treated with a liter of IV fluids. We will recheck a blood sugar prior to discharge. Patient mentions that he has had some relief of symptoms with dicyclomine in the past. He states he is on Protonix as well as Carafate but has not been taking the Carafate recently because "I have not needed it". I encouraged him to start this to help with the "vinegar taste" that he mentions. He is interested in follow-up with a surgeon or GI specialist for endoscopy. No concerning findings for DKA at this time. No suspicion of acute surgical process in the abdomen. No concerning findings for infection. Patient will be sent home with strict return precautions. Encouraged follow-up with his primary care physician. All questions are sought and answered. Oralia ent is improved at discharge (MILO KHAN MD) Departure Impression Primary Impression: Abdominal pain Qualified Codes: R10.30 - Lower abdominal pain, unspecified Additional Impression: Hyperglycemia due to diabetes mellitus Disposition: 01 HOME, SELF-CARE Condition: Improved Departure-Patient Inst. Decision time for Depature: 07:18 (MILO KHAN MD) Referrals: ZACHARY LEVIN DO (PCP/Family) Primary Care Physician Patient Instructions: How to Prevent High Blood Sugar Emergencies in Diabetes Add. Discharge Instructions: Follow a clear liquid diet today until your abdominal discomfort is improved. Check your blood sugars at least 3-4 times a day, with every meal. Use the dicyclomine 20mg tablets 30min before meals and at bedtime as needed for abdominal cramping and pain. Take your carafate as well 30min before eating and at bedtime. Please call your primary care doctor today for a follow up appointment this week. Return to the Emergency Department for any new, concerning or emergent complaints. Scripts Dicyclomine HCl (Dicyclomine HCl) 20 Mg Tablet 20 MG PO QIDACHS PRN for abdominal cramping, #120 TAB Prov: MILO KHAN MD 07/19/23 Copy Copies To 1: ZACHARY LEVIN LISA K DO Jul 19, 2023 05:54 MILO KHAN MD Jul 19, 2023 07:18
[2023-07-19 05:56] LABS: BASOPHILS # (AUTO) 0.1 10^3/uL (0.0-0.1); BASOPHILS % (AUTO) 1 % (0-10); EOSINOPHILS # (AUTO) 0.1 10^3/uL (0.0-0.3); EOSINOPHILS % (AUTO) 1 % (0-10); HEMATOCRIT 47 % (40-54); HEMOGLOBIN 16.8 g/dL (13.3-17.7); LYMPHOCYTES # (AUTO) 3.1 10^3/uL (1.0-4.0); LYMPHOCYTES % (AUTO) 35 % (12-44); MEAN CORPUSCULAR HEMOGLOBIN 30 pg (25-34); MEAN CORPUSCULAR HGB CONC 36 g/dL (32-36); MEAN CORPUSCULAR VOLUME 84 fL (80-99); MEAN PLATELET VOLUME 11.8 fL (9.0-12.2); MONOCYTES # (AUTO) 0.6 10^3/uL (0.0-1.0); MONOCYTES % (AUTO) 6 % (0-12); NEUTROPHILS % (AUTO) 56 % (42-75); PLATELET COUNT 225 10^3/uL (130-400)
[2023-07-19 06:12] LABS: ALBUMIN 4.3 GM/DL (3.2-4.5); BILIRUBIN,TOTAL 0.6 MG/DL (0.1-1.0); CREATININE SERUM 0.95 MG/DL (0.60-1.30); MAGNESIUM 2.2 MG/DL (1.6-2.4); POTASSIUM 4.2 MMOL/L (3.6-5.0); TOTAL PROTEIN 7.4 GM/DL (6.4-8.2)
[2023-07-19 06:14] LABS: AMPHETAMINE SCREEN, URINE NEGATIVE (NEGATIVE); BARBITURATE SCREEN URINE NEGATIVE (NEGATIVE); CANNABINOID SCREEN, URINE NEGATIVE (NEGATIVE); COCAINE SCREEN URINE NEGATIVE (NEGATIVE); METHADONE STAT NEGATIVE (NEGATIVE); OPIATE SCREEN URINE NEGATIVE (NEGATIVE); OXYCODONE STAT NEGATIVE (NEGATIVE); TRICYCLIC ANTIDEPRESSANTS SCRE NEGATIVE (NEGATIVE)
[2023-07-19 06:19] LABS: CLARITY,URINE CLEAR; COLOR,URINE YELLOW; GLUCOSE, URINE (UA) 3+ (NEGATIVE); KETONES,URINE 2+ (NEGATIVE); LEUKOCYTE ESTERASE ,URINE NEGATIVE (NEGATIVE); NITRITE,URINE NEGATIVE (NEGATIVE); PROTEIN,URINE NEGATIVE (NEGATIVE)
[2023-07-19 06:20] LABS: BACTERIA,URINE TRACE /HPF; BILIRUBIN,URINE 1+ (NEGATIVE); RBC,URINE 0-2 /HPF; WBC,URINE 0-2 /HPF
[2023-07-19] MEDS ORDERED: DICYCLOMINE 10 MG/ML 2 ML AMPULE IM STA (07:11)
[2023-07-19] MEDS ORDERED: DICY20TA PO (07:21)
[2023-07-19 07:51] VITALS: BP 131/63
== END 2023-07-19 07:51 | disposition home or self-care (01) ==
LOC: EDUNIT# 05:28 → ER 05:31
DX: E11.65 Type 2 diabetes mellitus with hyperglycemia (principal); R10.31 Right lower quadrant pain; R10.32 Left lower quadrant pain; R10.84 Generalized abdominal pain; E66.01 Morbid (severe) obesity due to excess calories; F17.210 Nicotine dependence, cigarettes, uncomplicated; F17.290 Nicotine dependence, other tobacco product, uncomplicated; Z68.42 Body mass index [BMI] 45.0-49.9, adult; Z79.4 Long term (current) use of insulin
CPT/HCPCS: 36415; 80053; 80306; 81000; 82010; 82140; 82150; 82805; 82947; 83036; 83605; 83690; 83735; 85025; 86308; 87070; 87430; 87636; 96361; 96372; 96374

== ENCOUNTER 2023-08-25 08:01 | Outpatient (CLI) | payer MEDICARE, MEDICAID ==
[~2023-08-25] VITALS: Ht 177.8 cm; Wt 153.0 kg
[2023-08-25] MEDS ORDERED: LEVA1.2543 IH (10:28)
[2023-08-25] MEDS ORDERED: ZOLP10TA PO (10:28)
[2023-08-25] MEDS ORDERED: ALBU8.5H6 IH (10:28)
[2023-08-25] MEDS ORDERED: CLON1TAB13 PO (10:28)
[2023-08-25] MEDS ORDERED: INSU100V52 SQ (10:28)
== END 2023-08-25 10:32 | disposition home or self-care (01) ==
LOC: PREOP 08:01
PROVIDERS: ATTEND Surgery
DX: Z01.818 Encounter for other preprocedural examination (principal)